=== PATIENT | female | born 1995 | race Caucasian/White ===

== ENCOUNTER 2023-07-08 12:05 | Outpatient (OUT) | payer OTHER, SELFPAY ==
--- NOTE | 2023-07-08 | US_ITS ---
[address] [address] Patient Name: FERNANDA CLIFTON MRN: [id number] date: 1995 Sex: F Assigned Patient Location: US Current Patient Location: US Accession/Order Number: [id number] Exam Date: 07/08/2023 12:20 Report Date: 07/08/2023 13:47 At the request of: MOHINDER BOSWELL Procedure: US OB transvaginal EXAMINATION: US OB transvaginal HISTORY: MISSED MENSES COMPARISON: No relevant comparison available. FINDINGS: Rich intrauterine gestation Gestational sac: 3.54 cm, 8 weeks 5 days CRL: 4.6 mm, 6 weeks 1 day, Yolk sac: 5.6 mm Heart rate: Not observed The cervix is closed measuring 4.6 cm The uterus is normal, anteverted, anteflexed The ovaries are normal. Clinical age: 12 weeks 6 days Clinical HOMER: 01/14/2024 Ultrasound age: 6 weeks 1 day Ultrasound HOMER: 03/01/2024 US/US OB transvaginal IMPRESSION: Suspected early intrauterine gestation. 2 possible yolk sacs. No cardiac activity is observed Follow-up evaluation recommended Electronically authenticated by: LALITO BUSCH Date: 07/08/2023 13:47
== END 2023-07-08 12:06 | disposition home or self-care (01) ==
PROVIDERS: Visit Provider Obstetrics & Gynecology
DX: N92.6 Irregular menstruation, unspecified (principal)
CPT/HCPCS: 76817

== ENCOUNTER 2023-07-14 13:20 | Outpatient (OUT) | payer OTHER, SELFPAY ==
--- NOTE | 2023-07-14 13:22 | US_ITS ---
[address] [address] Patient Name: FERNANDA CLIFTON MRN: [id number] date: 1995 Sex: F Assigned Patient Location: US Current Patient Location: US Accession/Order Number: [id number] Exam Date: 07/14/2023 13:25 Report Date: 07/14/2023 15:40 At the request of: MOHINDER BOSWELL Procedure: US OB transvaginal EXAMINATION: US OB transvaginal HISTORY: VIABILITY COMPARISON: Ultrasound OB transvaginal 07/08/2023 FINDINGS: GESTATIONAL SAC: Present and normal appearing. YOLK SAC: Present and normal appearing. POLE: Present and normal appearing. CARDIAC: Absent UTERUS: Normal size and appearance. OVARIES: Right: Normal. Left: Normal. CERVIX: cm in length and closed. CUL-DE-SAC: Normal. OTHER: None. AGE BY LMP: 13 weeks 5 days HOMER BY LMP: 01/14/2024 AGE BY US CRL: 6 weeks 2 days HOMER BY US CRL: 03/06/2024 US/US OB transvaginal IMPRESSION: 1. Single intrauterine 6 weeks 2 days by today's ultrasound (6 weeks 1 day on 07/08/2023). No detectable heartbeat. demise versus early intrauterine . No findings to suggest impending . 2. Tiny echogenic focus along the outer margin of the gestational sac of uncertain etiology. Follow-up recommended. Electronically authenticated by: CELY PLATA Date: 07/14/2023 15:40
== END 2023-07-14 13:21 | disposition home or self-care (01) ==
LOC: US 13:20
PROVIDERS: Visit Provider Obstetrics & Gynecology
DX: O36.80X1 Pregnancy with inconclusive fetal viability, fetus 1 (principal); Z3A.01 Less than 8 weeks gestation of pregnancy
CPT/HCPCS: 76817

== ENCOUNTER 2023-07-22 08:00 | Outpatient (OUT) | payer OTHER, SELFPAY ==
--- NOTE | 2023-07-22 08:01 | US_ITS ---
[address] [address] Patient Name: FERNANDA CLIFTON MRN: [id number] date: 1995 Sex: F Assigned Patient Location: Current Patient Location: [facility] Accession/Order Number: [id number] Exam Date: 07/22/2023 08:02 Report Date: 07/22/2023 22:29 At the request of: MOHINDER BOSWELL Procedure: US OB transvaginal EXAMINATION: US OB transvaginal HISTORY: VIABILITY COMPARISON: Ultrasound OB transvaginal 07/14/2023 FINDINGS: GESTATIONAL SAC: Present YOLK SAC: Present POLE: Present CARDIAC: Absent UTERUS: Normal size and appearance. OVARIES: Right: Normal. Left: Normal. CERVIX: Not evaluated. CUL-DE-SAC: Normal. OTHER: None. AGE BY LMP: 14 weeks 6 days HOMER BY LMP: 01/14/2024 AGE BY US CRL: 6 weeks 1 day HOMER BY US CRL: 03/15/2024 US/US OB transvaginal IMPRESSION: 1. Single intrauterine with no detectable heartbeat and no growth since study 7 days ago. Findings favor demise. 2. No findings to suggest impending . Electronically authenticated by: CELY PLATA Date: 07/22/2023 22:29
== END 2023-07-22 08:01 | disposition home or self-care (01) ==
LOC: US 08:00
PROVIDERS: Visit Provider Obstetrics & Gynecology
DX: O36.80X0 Pregnancy with inconclusive fetal viability, not applicable or unspecified (principal); Z3A.01 Less than 8 weeks gestation of pregnancy
CPT/HCPCS: 76817

== ENCOUNTER 2023-07-23 07:46 | Day surgery (SDC) | payer OTHER, SELFPAY ==
[2023-07-23] VITALS (10 sets, daily range): BP systolic 93–112; BP diastolic 67–85; PULSE 69–97; RESP 12–29; TEMP 36.2–36.6; O2SAT 96–100; BMI 25.8
--- OUTSIDE RECORDS SUMMARY | 2023-07-23 07:49 | XMS_ITS | CCD ---
Author Name Unknown Address [address] [place] [address] Organization [facility] Care Team Providers Care Lending Manager Name Role Phone Amanda Parks Unavailable Unavailable Family Physician Unavailable Unavailable Nikki vailable Family Physician Unavailable Unavailable Nikki vailable Asad Owens Primary Care Provider ASAD OWENS Primary Care Unavailable SOMASUNDARAM, SHIVKAMINI Referring Unavail able SOMASUNDARAM, SHIVKAMINI Attending Unavail able SOMASUNDARAM, SHIVKAMINI Admitting Unavail able Angela HARVEY Primary Care Physician Asad Owens DO Primary Care Provider [phone] ASAD OWENS Primary Care Unavailable Asad Owens DO Primary Care Provider [phone] Maryann Rashid Primary Care Physician [phone] Unavailable Primary Care Provider Unavailabl e FERNANDA BUTLER Referring Unavailable FERNANDA BUTLER Referring Unavailable JUN SUH Attending Unavail able ASAD OWENS Primary Care Unavailable SHAAN CORONADO Attending Unavailable ASAD OWENS Primary Care Unavailable JUN SUH Attending Unavail able ASAD OWENS Primary Care Unavailable ASAD OWENS Primary Care Unavailable MARLYS MEEKS Attending Unavailable FERNANDA BUTLER Attending Unavailable RG TIDWELL Referring Unavailable FERNANDA BUTLER Attending Unavailable MARIE SO Referring Unavailable Marlys Meeks CNP Unavailable [phone] Shaan Coronado CNP Unavailable Maryann Rashid Attending Unavailable Maryann Rashid Referring Unavailable Phoenix Gonzalez Attending Unavailable Maryann Rashid Admitting Unavailable Maryann Rashid Attending Unavailable Maryann Rashid Referring Unavailable Son Reyes Attending Unavailable Phoenix Castro Attending Unavailable Son Reeys Attending Unavailable Allergies Allergy Classification Reported Allergen(s) Allergy Type Date of Onset Reaction(s) Facility (16 sources) Ibuprofen; Translations: [IBUPROFEN] Drug Allergy 08-19-19 Other (See Comments) [facility] (19 sources) Sulfamethoxazole / Trimethoprim; Translations: [SULFAMETHOXAZOLE-T RIMETHOPRIM] Drug Allergy 08-19-19 21 Hives [facility] (1 source) Ibuprofen; Translations: [Motrin] Drug Allergy [facility] (1 source) Sulfamethoxazole / Trimethoprim; Translations: [Bactrim] Drug Allergy [facility] (1 source) Sulfamethoxazole / Trimethoprim; Translations: [Bactrim DS] Drug Allergy [facility] (1 source) No Known Medication Allergies; Translations: [No Known Medication Allergies] Propensity to adverse reactions (disorder) [facility] Medications Current Medications Medication Drug Class(es) Dates Sig (Normalized) Sig (Original) betamethasone 0.5 mg/ml / clotrimazole 10 mg/ml topical cream (3 sources) Azole Antifungal, Corticosteroid Start: 08-16-2020 End: 09-17-2020 clotrimazole-bet amethasone (Lotrisone) cream Apply to affected area 2 times daily . 15 g 0 08/21/2020 09/17/2020 Active {24 (Ethinyl Estradiol 0.01 MG / norethindrone acetate 1 MG Oral Tablet) / 2 (Ethinyl Estradiol 0.01 MG Oral Tablet) / 2 (Ferrous fumarate 75 MG Oral Tablet) } Pack [Lo Loestrin Fe 28 Day] (8 sources) Estrogen Start: 08-05-2022 take 1 tablet by mouth once daily Lo Loestrin Fe oral tablet TAKE ONE TAB BY MOUTH PER DAY . Start Date: 08/05/22 Status: Ordered Start: 07-02-2022 take 1 tablet by paige once daily norethindrone-e.estradioL-iron (Lo Loest rin Fe) 1 mg-10 mcg (24)/10 mcg (2) Tab Take one tab by mouth per day . 90 tablet 3 07/02/2022 Active hydrOXYzine pamoate 25 mg oral capsule (1 source) Antihistamine Start: 10-09-2020 End: 02-06-2021 take 1 capsule by mouth once daily hydrOXYzine (VISTARIL) 25 MG capsule Take 1 (one) capsule (25 mg total) by mouth nightly . 30 capsule 3 10/09/2020 02/06/2021 Active hyoscyamine sulfate 0.12 mg / methenamine 81.6 mg / methylene blue 10.8 mg / sodium phosphate, monobasic 40.8 mg oral tablet (3 sources) Oxidation-Reduction Agent Start: 11-18-2022 End: 05-31-2023 take 1 tablet by mouth four times daily as needed methen-sod phos-meth blue-hyos (Urogesic-Blue) 81.6-40.8-0.12 mg Tab Indications: Interstitial cystitis Take 1 tablet by mouth 4 (four) times a day as needed . 60 tablet 1 06/01/2023 Active Start: 10-09-2022 take 1 tablet by paige th four times daily as needed methen-sod phos-meth blue-hyos (Urogesic-Blue) 81.6-40.8-0.12 mg Tab Indications: Interstitial cystitis Take 1 tablet by mouth 4 (four) times a day as needed . 4 tablet 0 10/09/2022 Active iv contrast (will be provided with radiology test) (1 source) Start: 08-25-2022 End: 08-26-2022 iv contrast (will be provided with radiology test) MRI Breast KAYA Inject, intravenously, once for 1 dose. No IV access, insert saline lock prior to the beginning of sedation, infusion, injection of imaging exam. Discontinue saline lock post exam. If Pt has a central line or IVAD, may access for administration according to line specific nursing protocol. Once exam is complete flush line and de-access according to line specific nursing protocol in the MR contrast administration guidelines link 1 Each 0 08/25/2022 08/26/2022 Active Comment on above: MRI Breast KAYA Injec t, intravenously, once for 1 dose. No IV access, insert saline lock prior to the beginning of sedation, infusion, injection of imaging exam. Discontinue saline lock post exam. If Pt has a central line or IVAD, may access for administration according to line specific nursing protocol. Once exam is complete flush line and de-access according to line specific nursing protocol in the MR contrast administration guidelines link metroNIDAZOLE 500 mg oral tablet (2 sources) Nitroimidazole Antimicrobial Start: 04-03-2022 End: 04-10-2022 take 1 tablet by mouth twice daily at mealtime metroNIDAZOLE (FLAGYL) 500 MG tablet Indications: BV (bacterial vaginosis) Take 1 (one) tablet (500 mg total) by mouth 2 (two) times a day with meals for 7 days . 14 tablet 0 04/03/2022 04/10/2022 Active Start: 09-26-2020 End: 09-26-2020 metroNIDAZOLE (FLAGYL) IVPB 500 mg naproxen 500 mg oral tablet (5 sources) Nonsteroidal Anti-inflammatory Drug Start: 05-30-2021 take 1 tablet by mouth twice daily as needed for pain Naprosyn 500 mg Tab 500 mg = 1 tab(s), Oral, BID, PRN for pain, # 20 tab(s), Refills(s) 0, Pharmacy: [facility]/pharmacy #[id number], 160, cm, 05/30/21 9:23:00 EDT, Height/Length Dosing, 68, kg, 05/30/21 9:23:00 EDT, Weight Dosing Start Date: 05/30/21 Status: Ordered omeprazole 40 mg delayed release oral capsule (1 source) Proton Pump Inhibitor Start: 10-02-2022 take 1 capsule by mouth once daily omeprazole 40 mg Cap-DR 40 mg = 1 cap(s), Oral, Daily, # 30 cap(s), Refills(s) 0, Pharmacy: [facility]/pharmacy #[id number], 160, cm, 10/02/22 14:06:00 EST, Height/Length Dosing, 63, kg, 10/02/22 14:06:00 EST, Weight Dosing Start Date: 10/02/22 Status: Ordered ropivacaine in 0.9% sod chl/PF (ropivacaine,PF,- 0.9 % sodchlor) 150 mg/30 mL (5 mg/mL) 0.5 % Syrg (1 source) Start: 06-18-2022 End: 06-18-2022 ropivacaine in 0.9% sod chl/PF (ropivacaine,PF,-0 .9 % sodchlor) 150 mg/30 mL (5 mg/mL) 0.5 % Syrg Indications: Interstitial cystitis 50 mg by instillation route once For bladder instillation for 1 dose . 10 mL 0 06/18/2022 06/18/2022 Active ropivacaine in 0.9% sod chl/PF (ROPivacaine,PF,- 0.9 % sodchlor) 150 mg/30 mL (5 mg/mL) 0.5 % Syrg (1 source) Start: 10-09-2022 End: 10-09-2022 ropivacaine in 0.9% sod chl/PF (ROPivacaine,PF,-0 .9 % sodchlor) 150 mg/30 mL (5 mg/mL) 0.5 % Syrg Indications: Interstitial cystitis Inject 10 mL as directed once for 1 dose . 10 mL 0 10/09/2022 10/09/2022 Active Zofran ODT 4 mg Tab-Dis (1 source) Start: 10-02-2022 take 1 tablet by mouth three times daily Zofran ODT 4 mg Tab-Dis 4 mg = 1 tab(s), Oral, TID, # 15 tab(s), Refills(s) 0, Pharmacy: [facility]/pharmacy #[id number], 160, cm, 10/02/22 14:06:00 EST, Height/Length Dosing, 63, kg, 10/02/22 14:06:00 EST, Weight Dosing Start Date: 10/02/22 Status: Ordered Completed/Discontinued Medications Medication Drug Class(es) Dates Sig (Normalized) Sig (Original) 100 ml acetaminophen 10 mg/ml injection (4 sources) Start: 09-26-2020 End: 09-26-2020 take 1000 mg intravenous route every twenty-four hours as needed 1,000 mg, Intravenous, at 400 mL/hr, Once as needed, if patient is not tolerating Oral Intake, Starting Mary 09/26/20 at 2130, For 1 dose [] May give x1 dose 8 hours after initial dose if patient is not tolerating Oral Intake [] May Discontinue IV acetaminophen and initiate oral acetaminophen if patient tolerates Oral Intake [] Maximum dose of 4 grams in 24 hours Indication: Post-operative pain management Is patient able to take oral acetaminophen? No Start: 09-26-2020 End: 09-26-2020 take 1 dose by mouth every eight hours, then take 1 dose by mouth every twenty-four hours 1,000 mg, Intravenous, at 400 mL/hr, Once, Mary 09/26/20 at 1400, For 1 dose [] First dose should be 4 hours after the pre-operative oral acetaminophen (TYLENOL) dose [] Post-op patient who is NPO or on Clear Liquid Diet [] May give additional dose in 8 hours if not tolerating Oral [] Discontinue IV acetaminophen and initiate oral acetaminophen when patient tolerates Oral Intake [] Maximum dose of 4 grams in 24 hours Indication: Post-operative pain management Is patient able to take oral acetaminophen? No Start: 09-26-2020 End: 09-26-2020 take 1 tablet by mouth every six hours 975 mg, Oral, Every 6 hours, First dose on Mary 09/26/20 at 1830 [] May start post op when patient is tolerating Oral Intake [] Do not give within 6 hours of last dose of IV acetaminophen (OFIRMEV). [] Maximum dose of 4 grams in 24 hours. acetaminophen 325 mg / oxyCODONE hydrochloride 5 mg oral tablet (2 sources) Opioid Agonist Start: 09-25-2020 End: 10-13-2020 take 1 tablet by mouth every six hours as needed for pain oxyCODONE-acetaminophen (PERCOCET) 5-325 mg per tablet Indications: Post-operative pain , Pelvic pain in female Take 1 (one) tablet by mouth every 6 (six) hours as needed for post-op pain. . 20 tablet 0 09/25/2020 10/13/2020 Discontinued (Therapy completed) amitriptyline hydrochloride 10 mg oral tablet (3 sources) Tricyclic Antidepressant Start: 10-09-2020 End: 04-02-2022 take 1 tablet by mouth once daily amitriptyline (ELAVIL) 10 MG tablet Take 1 (one) tablet (10 mg total) by mouth nightly . 30 tablet 3 10/09/2020 04/02/2022 Discontinued (Patient Discharge) calcium chloride 0.0014 meq/ml / potassium chloride 0.004 meq/ml / sodium chloride 0.103 meq/ml / sodium lactate 0.028 meq/ml injectable solution (3 sources) Start: 09-26-2020 End: 09-26-2020 take 75 mL intravenous route every hour, then take 600 mL intravenous route 75 mL/hr, Intravenous, Continuous, Starting Mary 09/26/20 at 1445 Saline lock if tolerating greater than 600 mL oral intake Start: 09-26-2020 End: 09-26-2020 lactated ringers bolus 500 m L celecoxib 100 mg oral capsule (1 source) Nonsteroidal Anti-inflammatory Drug Start: 09-26-2020 End: 09-26-2020 celecoxib (CELEBREX) capsule 400 mg Start: 09-26-2020 End: 09-26-2020 celecoxib (CELEBREX) capsule 400 mg docusate sodium 100 mg oral capsule (2 sources) Start: 09-26-2020 End: 10-06-2020 take 100 mg by mouth twice daily 100 mg, Oral, 2 times daily, First dose on Mary 09/26/20 at 2100 Hold for loose stools DO NOT CRUSH OR CHEW. ergocalciferol 1.25 mg oral capsule (1 source) Provitamin D2 Compound Start: 12-04-2020 take 1 capsule by mouth every week Vitamin D 50,000 intl units (1.25 mg) oral capsule 50,000 International_Unit = 1 cap(s), Oral, qWeek, # 4 cap(s), Refills(s) 11, Pharmacy: [facility]/pharmacy #[id number], 160, cm, 11/27/20 10:43:00 EDT, Height/Length Dosing, 69.5, kg, 11/27/20 10:43:00 EDT, Weight Dosing Start Date: 12/04/20 Status: Ordered 20 ml fentaNYL 0.05 mg/ml injection (1 source) Opioid Agonist Start: 09-26-2020 End: 09-26-2020 25 mcg, Intravenous, Every 5 min PRN, Pain, Starting Mray 09/26/20 at 1307, For 4 doses, PACU (only) [] Do not give more than 100 mcg while in PACU. gabapentin (4 sources) Anti-epileptic Agent Start: 09-26-2020 End: 09-26-2020 gabapentin (NEURONTIN) capsule 100 mg Start: 09-26-2020 gabapentin (NE URONTIN) capsule 600 mg Start: 09-25-2020 End: 10-13-2020 take 1 capsule by mouth every eight hours as needed for pain gabapentin (NEURONTIN) 100 MG capsule Indications: Post-operative pain , Pelvic pain in female Take one capsule by mouth every 8 hours as needed for post operative pain. . 30 capsule 0 09/25/2020 10/13/2020 Discontinued (Therapy completed) 1 ml heparin sodium, porcine 41818 unt/ml injection (4 sources) Unfractionated Heparin, Anti-coagulant Start: 10-09-2022 End: 10-09-2022 heparin (porcine) injection 40,000 Units Start: 10-09-2022 End: 10-09-2022 heparin (porcine) injection 40,000 Units Start: 06-18-2022 End: 06-18-2022 heparin (porcine) injection 40,000 Units Start: 06-18-2022 End: 06-18-2022 heparin (porcine) injection 40,000 Units 0.5 ml HYDROmorphone hydrochloride 1 mg/ml prefilled syringe (1 source) Opioid Agonist Start: 09-26-2020 End: 09-26-2020 take 0.25-0.5 mg intravenous route every three hours as needed HYDROmorphone (DILAUDID) injection 0.25-0.5 mg ibuprofen 800 mg oral tablet (2 sources) Nonsteroidal Anti-inflammatory Drug Start: 09-25-2020 End: 09-25-2021 take 1 tablet by mouth every eight hours as needed for pain ibuprofen (ADVIL,MOTRIN) 800 MG tablet Indications: Post-operative pain , Pelvic pain in female Take 1 (one) tablet (800 mg total) by mouth every 8 (eight) hours as needed for pain . 30 tablet 1 09/25/2020 10/13/2020 Discontinued (Therapy completed) naloxone (NARCAN) injection 0.1 mg (1 source) Start: 09-26-2020 End: 09-26-2020 naloxone (NARCAN) injection 0.1 mg ondansetron (ZOFRAN-ODT) disintegrating tablet 4 mg (1 source) Start: 09-26-2020 End: 09-26-2020 take 1 tablet by mouth every six hours as needed ondansetron (ZOFRAN-ODT) disintegrating tablet 4 mg oxyCODONE hydrochloride 5 mg oral tablet (1 source) Opioid Agonist Start: 09-26-2020 End: 09-26-2020 take 5-10 mg by mouth every four hours as needed 5-10 mg, Oral, Every 4 hours PRN, moderate to severe pain, Starting Mary 09/26/20 at 1359 [] Initiate with 5 mg oral every 4 hours prn moderate to severe pain. [] For unrelieved pain, may repeat 5 mg oral dose within 60 minutes of initial dose. [] If pain is RELIEVED after repeat dose, change to 10 mg oral every 4 hours prn moderate to severe pain. [] If pain is UNrelieved after repeat dose, or patient requires dose reduction, call physician. 2 ml prochlorperazine 5 mg/ml injection (1 source) Phenothiazine Start: 09-26-2020 End: 09-26-2020 take 10 mg intravenous route every six hours as needed 10 mg, Intravenous, Every 6 hours PRN, nausea, vomiting, Breakthrough Nausea, Starting Mary 09/26/20 at 1359 30 minutes after ondansetron (ZOFRAN) for breakthrough nausea 200 ml ropivacaine hydrochloride 2 mg/ml injection (1 source) Amide Local Anesthetic Start: 09-26-2020 End: 09-26-2020 ropivacaine (0.2%) (NAROPIN) infusion (PAIN BALL) 750 mL 72 hr scopolamine 0.0139 mg/hr transdermal system (1 source) Anticholinergic Start: 09-26-2020 End: 09-26-2020 scopolamine (TRANSDERM-SCOP) 1 mg over 3 days patch 1 patch 50 ml sodium bicarbonate 84 mg/ml prefilled syringe (4 sources) Start: 10-09-2022 End: 10-09-2022 sodium bicarbonate 8.4 % (1 mEq/mL) injection 3 mEq Start: 10-09-2022 End: 10-09-2022 sodium bicarbonate 8.4 % (1 mEq/mL) injection 3 mEq Start: 06-18-2022 End: 06-18-2022 sodium bicarbonate 8.4 % (1 mEq/mL) injection 3 mEq Start: 06-18-2022 End: 11-17-2022 sodium bicarbonate 8.4 % (1 mEq/mL) injection 3 mEq triamcinolone acetonide 10 mg/ml injectable suspension (4 sources) Corticosteroid Start: 10-09-2022 End: 10-09-2022 triamcinolone acetonide (KENALOG) injection 25 mg Start: 10-09-2022 End: 10-09-2022 triamcinolone acetonide (DEYANIRA ALOG) injection 25 mg Start: 06-18-2022 End: 06-18-2022 triamcinolone acetonide (DEYANIRA ALOG) injection 25 mg Start: 06-18-2022 End: 06-18-2022 triamcinolone acetonide (DEYANIRA ALOG) injection 25 mg Vitamin D 50,000 intl units (1.25 mg) oral capsule (4 sources) Start: 12-04-2020 take 1 capsule by mouth every week Vitamin D 50,000 intl units (1.25 mg) oral capsule 50,000 International_Unit = 1 cap(s), Oral, qWeek, # 4 cap(s), Refills(s) 11, Pharmacy: [facility]/pharmacy #[id number], 160, cm, 11/27/20 10:43:00 EDT, Height/Length Dosing, 69.5, kg, 11/27/20 10:43:00 EDT, Weight Dosing Start Date: 12/04/20 Status: Ordered Problems Active Problems Problem Classification Problem Date Documented Da te Episodic/Chronic Complications of surgical procedures or medical care (3 sources) Postoperative wound infection-superficial 11-19-2020 Episodic Contraceptive and procreative management (2 sources) Patient encounter status; Translations: [Encounter for other general counseling and advice on contraception] Episodic Endometriosis (1 source) Endometriosis (clinical); Translations: [Endometriosis] Chronic Inflammatory diseases of female pelvic organs (1 source) Bacterial vaginosis; Translations: [Acute vaginitis] Episodic Malaise and fatigue (5 sources) Fatigue 11-27-2020 Episodic Menstrual disorders (20 sources) Irregular periods; Translations: [Menorrhagia] Onset: 08-19-2020 08-19-2020 Chronic Nausea and vomiting (1 source) Nausea and vomiting; Translations: [Nausea with vomiting, unspecified] Onset: 10-02-2022 Episodic Nonspecific chest pain (5 sources) Tight chest 11-27-2020 Episodic Nutritional deficiencies (7 sources) Vitamin D deficiency; Translations: [Vitamin D deficiency, unspecified] Onset: 10-08-2022 12-11-2020 Chronic Other female genital disorders (7 sources) Vaginal discharge; Translations: [Other specified noninflammatory disorders of vagina] 03-06-2019 Episodic Other gastrointestinal disorders (20 sources) Irritable bowel syndrome; Translations: [Irritable bowel syndrome without diarrhea] Onset: 08-19-2020 08-19-2020 Chronic Other lower respiratory disease (5 sources) Dyspnea 11-27-2020 Episodic Other nutritional; endocrine; and metabolic disorders (1 source) Body mass index 25-29 - overweight; Translations: [Body mass index (BMI) of 25.0 to 29.9] Onset: 10-13-2020 10-13-2020 Chronic Other nutritional; endocrine; and metabolic disorders (7 sources) Gilbert's syndrome; 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] Onset: 10-08-2022 02-25-2015 Chronic Other nutritional; endocrine; and metabolic disorders (16 sources) Body mass index 25-29 - overweight 11-27-2020 Episodic Other nutritional; endocrine; and metabolic disorders (6 sources) Overweight in adulthood with body mass index of 25 or more but less than 30; Translations: [Body mass index (BMI) 25.0-25.9, adult] Onset: 08-05-2022 Episodic Other nutritional; endocrine; and metabolic disorders (1 source) Overweight; Translations: [Overweight] Onset: 08-05-2022 Episodic Other skin disorders (5 sources) Disorder of nail 03-06-2019 Episodic Other upper respiratory disease (20 sources) Allergic rhinitis; Translations: [Allergic rhinitis, unspecified] Onset: 08-19-2020 08-19-2020 Chronic Ovarian cyst (10 sources) Ruptured cyst of ovary; Translations: [Ovarian cyst rupture] Onset: 08-14-2020 08-19-2020 Episodic Residual codes; unclassified (4 sources) Family history of breast cancer; Translations: [Family history of malignant neoplasm of breast] Episodic Residual codes; unclassified (3 sources) At high risk for breast cancer; Translations: [Other specified personal risk factors, not elsewhere classified] Episodic Residual codes; unclassified (2 sources) Family history of malignant neoplasm of breast; Translations: [Family history of breast cancer] Onset: 10-07-2022 Episodic Residual codes; unclassified (2 sources) Other specified personal risk factors, not elsewhere classified; Translations: [At high risk for breast cancer] Onset: 08-25-2022 Episodic Residual codes; unclassified (1 source) Postoperative state; Translations: [Post-operative state] Thyroid disorders (7 sources) Goiter; Translations: [Nontoxic goiter, unspecified] Onset: 10-08-2022 11-27-2020 Chronic Unclassified (1 source) Unknown / UNK(Unknown) Onset: 06-16-2018 Unclassified (3 sources) Breast finding 09-18-2020 Unclassified (8 sources) Body mass index 25-29 - overweight; Translations: [Body mass index (BMI) of 25.0 to 29.9] Onset: 10-13-2020 10-13-2020 Unclassified (4 sources) Pain of right breast 08-05-2022 Urinary tract infections (17 sources) Chronic interstitial cystitis; Translations: [Interstitial cystitis (chronic) without hematuria] Onset: 08-19-2020 10-13-2020 Chronic Viral infection (5 sources) Viral disease 03-06-2019 Episodic Past or Other Problems Problem Classification Problem Date Documented Da te Episodic/Chronic Abdominal pain (20 sources) Chronic pelvic pain of female; Translations: [Pain in female pelvis] Onset: 08-14-2020 08-19-2020 Episodic Epilepsy; convulsions (20 sources) Febrile convulsion; Translations: [Simple febrile convulsions] Onset: 08-19-2020 08-19-2020 Episodic Genitourinary symptoms and ill-defined conditions (18 sources) Dysuria; Translations: [Dark yellow urine] Onset: 08-19-2020 08-19-2020 Episodic Lymphadenitis (7 sources) Generalized enlarged lymph nodes; Translations: [Generalized enlarged lymph nodes] Onset: 08-05-2022 Episodic Nonmalignant breast conditions (20 sources) Breast lump; Translations: [Discharge from the breast] Onset: 10-13-2020 10-13-2020 Episodic Other connective tissue disease (12 sources) Myofascial pain; Translations: [Myalgia, other site] Onset: 04-02-2022 Episodic Other female genital disorders (15 sources) Pelvic congestion syndrome; Translations: [Other specified conditions associated with female genital organs and menstrual cycle] Onset: 10-13-2020 10-13-2020 Episodic Other gastrointestinal disorders (20 sources) Diarrhea; Translations: [Diarrhea, unspecified] Onset: 08-19-2020 08-19-2020 Episodic Other screening for suspected conditions (not mental disorders or infectious disease) (20 sources) Mammography abnormal; Translations: [Cancer cervix screening status] Onset: 10-13-2020 10-13-2020 Episodic Otitis media and related conditions (20 sources) Serous otitis media; Translations: [Unspecified nonsuppurative otitis media, unspecified ear] Onset: 08-19-2020 08-19-2020 Episodic Syncope (20 sources) Syncope; Translations: [Syncope and collapse] Onset: 08-19-2020 08-19-2020 Episodic Unclassified (1 source) PELVIC PAIN IN FEMALE R10.2 93124 Onset: 06-16-2018 Unclassified (1 source) Exposure to 2019 novel coronavirus; Translations: [Contact with and (suspected) exposure to COVID19] Unclassified (5 sources) Onset: 09-02-2015 Resolved: 06-10-2016 06-12-2016 Results Test Name Value Interpretation Reference Range Facility ED Note-Physicianon 07-16-20 ED Note-Physician Basic Information Time Seen: Son Reyes MD 07/15/2023 08:38 Sorry for the Chief Complaint pt is approx 7 wks preg, reports increase in vomiting, lower abd pain and lower back pain since last night. has had an ultrasound with faronny. History of Present Illness 27-year-old female comes to the ED for evaluation of abdominal pain. The patient reports she is currently 7 weeks . She states she has pain across the lower abdomen with associated nausea and vomiting. She has had some nausea throughout her but intensified today. She does state that she had an ultrasound performed in the office last week but they were not able to see anything. No fever, chills or chest pain. No diarrhea, constipation. No urinary difficulty, vaginal discharge or bleeding. Review of Systems A 10 point review of systems is negative except as noted above. Medical and Surgical History: Reviewed and noted Social history: Lives at home Tobacco: Denies Physical Exam Vitals & Measurements T: 37.5 ?C(Oral) HR: 89(Peripheral) RR: 16 BP: 122/77 SpO2: 99% HT: 160 cm WT: 64 kg BMI: 25 Nurses notes and vital signs reviewed and patient is not hypoxic. General: The patient appears well and in no significant distress Patient is resting comfortably on the exam bed. Skin: Warm, dry, no pallor noted. Head: Atraumatic. Neck: No JVD. Eye: Normal conjunctiva. Ears, Nose, Mouth, and Throat: Moist mucous membranes Cardiovascular: Strong distal pulses. Chest wall: Respiratory: Respirations are nonlabored. Back: Normal range of motion, no CVA tenderness. Musculoskeletal: Normal ROM with no gross deformity. Gastrointestinal: Abdomen is soft throughout. There is mild tenderness across the lower/pelvic area. Urological: Neurological: Awake and alert. No focal deficits. Follows commands. GCS 15. Psychiatric: Cooperative. Medical Decision Making Laboratory studies reviewed and noted. Patient was treated here with IV fluids. Her nausea is improved on repeat evaluation she taking oral hydration well. However, she continues to have low pelvic pain with positive . Therefore ultrasound was added. Quantitative hCG returned at 80,000. Her ultrasound was discussed at length with the trim technician and reviewed by radiologist. There is intrauterine gestational sac with a possible pole, however this is only measuring 6 weeks, 3 days. No cardiac cavity was identified. This is discussed with the patient. Her significant other is now at bedside as well. He reports that patient had a similar ultrasound finding last week in the PICU NURSE's office as well as an ultrasound yesterday in the office. He is scheduled for another ultrasound next week. Given his additional history, it sounds like the patient is likely experiencing demise, but did explain that I cannot definitively diagnose that today. She is sent for repeat quantitative hCG in 72 hours and to follow-up with PICU NURSE for definitive diagnosis. Patient was encouraged to return to the ED if symptoms worsen or change. Assessment/Plan Abdominal pain in (O26.899: Other specified related conditions, unspecified trimester) Unspecified abdominal pain (R10.9: Unspecified abdominal pain) Orders: Sodium Chloride 0.9% intravenous solution, 1,000 mL, Soln-IV, IV, Once, Stop date 07/15/23 8:42:00 EST, STAT, Start date 07/15/23 8:42:00 EST, Infuse over 61, minute(s) Automated Diff Basic Metabolic Panel Beta hCG Quantitative CBC w/ Auto Diff eGFR Extra Blue Tube Extra SST Tube Hepatic Function Panel Lipase Level U Beta Hcg Qual US 1st Trimester US Transvaginal Medications Administered Given NS 1000 ml Bolus, 1000 mL, IV Disposition Plan Patient Discharge Condition Disposition: Discharged home Condition: Improved and stable Counseled: Patient and/or family were counseled to workup, results, treatment plan and follow-up recommendations Discharge Prescription List Prescriptions No active prescription medications Follow-up With When Contact Information Ahsan BOSWELL In 3 days 07/18/[address] [place] [address]- Business (1) Additional Instructions: Patient Education Abdominal Pain During Attestation Patient seen and evaluated by the physician credit assistant. Attending physician was present in the emergency department and supervised care. This visit was performed by both the physician and an APC. I performed all aspects of the MDM as documented. This report was transcribed using voice recognition software. Every effort was made to ensure accuracy, however, inadvertently computerized rn palliative mistakes may be present. Appropriate healthcare PPE was used in evaluating this patient. The patient was placed in a mask. The healthcare provider was wearing mask, gloves, and utilizing proper hand hygiene. All equipment was properly cleansed. Problem List/Past Medi (more content not included)... Normal [facility] Comment on above: Result Comment: Elec tronically Signed By: Chapincito José PA-C\.br\Date and Time Signed: 07/15/23 16:04 EST\.br\Electronically Co-Signed By: Son Reyes MD\.br\Date and Time Co-Signed: 07/16/23 08:09 EST Auto Diffon 07-15-2023 Basophils/100 WBC (Bld) 0.2 % Normal 0.0-2.0 [facility] Comment on above: Order Comment: Order Added by Discern Expert. Performed By: #### 2 285485, 0648139, 1508119, 3523748, 1776856, 33167182, 2778447 ####[facility] [address] [place] [address] Basophils/Leukocyte s Auto (Bld) [Pure # fraction] 0.0 E9/L Normal 0.0-0.2 [facility] Comment on above: Order Comment: Order Added by Discern Expert. Performed By: #### 2 285688, 4305989, 1839704, 6839497, 3035005, 27936691, 3937475 ####[facility] [address] [place] [address] Eosinophils/100 WBC (Bld) 0.3 % Normal 0.0-8.0 [facility] Comment on above: Order Comment: Order Added by Discern Expert. Performed By: #### 2 821169, 3417356, 9329426, 0781359, 6016529, 64232058, 0382447 ####[address] [place] [address] Eosinophils/Leukocy kashmir Auto (Bld) [Pure # fraction] 0.0 E9/L Normal 0.0-0.5 [facility] Comment on above: Order Comment: Order Added by Discern Expert. Performed By: #### 2 090424, 7351798, 5652011, 5860543, 2767426, 59844356, 1648514 ####[address] [place] [address] Lymphocytes/100 WBC (Bld) 4.1 % Low 14.0-50.0 [facility] Comment on above: Order Comment: Order Added by Discern Expert. Performed By: #### 2 903671, 7587488, 8189507, 6424849, 3475712, 18982184, 0813342 ####[address] [place] [address] Lymphocytes/Leukocy kashmir Auto (Bld) [Pure # fraction] 0.3 E9/L Low 1.0-4.0 [facility] Comment on above: Order Comment: Order Added by Discern Expert. Performed By: #### 2 815953, 0819844, 8170544, 7300103, 7310591, 21383452, 2403261 ####[address] [place] [address] Monocytes/100 WBC (Bld) 5.3 % Normal 4.0-14.0 [facility] Comment on above: Order Comment: Order Added by Discern Expert. Performed By: #### 2 603112, 9109093, 2619255, 4093653, 7526766, 67309465, 4960026 ####[facility] [address] [place] [address] Monocytes/Leukocyte s Auto (Bld) [Pure # fraction] 0.3 E9/L Normal 0.2-1.0 [facility] Comment on above: Order Comment: Order Added by Discern Expert. Performed By: #### 2 039848, 4875567, 1639413, 8435866, 3854630, 55103288, 3598402 ####[facility] [address] [place] [address] Neutrophils/100 WBC (Bld) 90.1 % High 36.0-75.0 [facility] Comment on above: Order Comment: Order Added by Discern Expert. Performed By: #### 2 037104, 2252369, 6994293, 1519066, 7138221, 35359188, 1359455 ####[facility] [address] [place] [address] Neutrophils/Leukocy kashmir Auto (Bld) [Pure # fraction] 5.6 E9/L Normal 2.0-7.5 [facility] Comment on above: Order Comment: Order Added by Discern Expert. Performed By: #### 2 060299, 7837218, 8200245, 0327236, 8666075, 71265731, 5428796 ####[facility] [address] [place] [address] BMPon 07-15-2023 Anion gap [Moles/Vol] 12 mmol/L Normal 6-16 [facility] Comment on above: Performed By: #### 2 984944, 1165359, 2309350, 2900670, 9882599, 61714084, 8589314 ####[facility] [address] [place] [address] BUN/Creat Ratio 14 No Units Normal 10-20 [facility] Comment on above: Performed By: #### 2 428624, 1168695, 1356432, 0221390, 5202935, 45418481, 5899242 ####[facility] [address] [place] [address] Calcium [Mass/Vol] 9.3 mg/dL Normal 8.9-11.1 [facility] Comment on above: Performed By: #### 2 947356, 2060551, 9636169, 1233372, 4028561, 55631859, 2363971 ####[facility] [address] [place] [address] Chloride [Moles/Vol] 102 mmol/L Normal 101-111 [facility] Comment on above: Performed By: #### 2 302438, 3461968, 7656865, 7098216, 5477052, 77437505, 8113872 ####[facility] [address] [place] [address] CO2 [Moles/Vol] 26 mmol/L Normal 21-31 [facility] Comment on above: Performed By: #### 2 449020, 9436072, 7159908, 5658526, 9767122, 77466857, 6186879 ####[facility] [address] [place] [address] Creatinine [Mass/Vol] 0.5 mg/dL Normal 0.5-1.3 [facility] Comment on above: Performed By: #### 2 923114, 5670306, 4145398, 9149578, 7369181, 98908751, 2724811 ####[facility] [address] [place] [address] Glucose [Mass/Vol] 90 mg/dL Normal 55-199 [facility] Comment on above: Performed By: #### 2 067308, 6051814, 6502132, 1175869, 7033662, 31488946, 3534705 ####[facility] [address] [place] [address] Potassium [Moles/Vol] 3.7 mmol/L Normal 3.5-5.3 [facility] Comment on above: Performed By: #### 2 536412, 1578822, 7626963, 6428904, 5725423, 44501353, 0695574 ####[facility] [address] [place] [address] Sodium [Moles/Vol] 136 mmol/L Normal 135-145 [facility] Comment on above: Performed By: #### 2 562942, 9738735, 9565636, 8842902, 2735923, 37606223, 8566790 ####[facility] [address] [place] [address] Urea nitrogen [Mass/Vol] 7 mg/dL Normal 5-21 [facility] Comment on above: Performed By: #### 2 072278, 4685669, 3631327, 3251635, 8945215, 34038799, 1864936 ####[facility] [address] [place] [address] BhCG Quanton 07-15-2023 [place] [address] mIU/mL High 1-3 [facility] Comment on above: Result Comment: 'F N ON < 1 - 3' ' 0.2 - 1 WEEK = 5 TO 50' ' 1 - 2 WEEKS = 50 - 500' ' 2 - 3 WEEKS = 100 - 5000' ' 3 - 4 WEEKS = 500 - 20809' ' 4 - 5 WEEKS = 1000 - 36845' ' 5 - 6 WEEKS = 85035 - 921196' ' 6 - 8 WEEKS = 42263 - 592983' ' 8 - 12 WEEKS = 70179 - 104385' Performed By: #### 2 140002, 6753977, 5161964, 4173030, 1663680, 71234748, 9010399 ####[facility] [address] [place] [address] CBC w/ Auto Diffon Erythrocyte distribution width (RBC) [Ratio] 13.3 % Normal 10.9-14.2 [facility] Comment on above: Performed By: #### 2 940957, 2983697, 7856614, 9725019, 2003693, 43097553, 8355715 ####[facility] [address] [place] [address] Hematocrit (Bld) [Volume fraction] 38.1 % Normal 34.0-46.0 [facility] Comment on above: Performed By: #### 2 769798, 3193830, 1045091, 2187673, 4430389, 38036445, 5409361 ####[address] [address] Hemoglobin (Bld) [Mass/Vol] 12.9 g/dL Normal 12.0-16.0 [facility] Comment on above: Performed By: #### 2 866792, 4856140, 4459312, 5014226, 1082602, 76410346, 7972278 ####[address] [address] MCH (RBC) [Entitic mass] 29.5 pg Normal 27.0-34.0 [facility] Comment on above: Performed By: #### 2 861878, 1593188, 6457046, 6782378, 1387428, 59708849, 2182274 ####[address] [address] MCHC (RBC) [Mass/Vol] 33.8 g/dL Normal 31.4-36.0 [facility] Comment on above: Performed By: #### 2 985319, 8526133, 1627154, 4318373, 8660100, 57848587, 6745332 ####[address] [address] MCV (RBC) [Entitic vol] 87.3 fL Normal 80.0-100.0 [facility] Comment on above: Performed By: #### 2 188764, 2258947, 5578413, 6549608, 5591956, 64675651, 0895838 ####[address] [address] Platelet mean volume (Bld) [Entitic vol] 8.5 fL Normal 6.4-10.8 [facility] Comment on above: Performed By: #### 2 841865, 5144672, 5779520, 3449138, 4067179, 57998847, 2665021 ####[facility] [address] [place] [address] Platelets (Bld) [#/Vol] 153.0 E9/L Normal 150.0-500. 0 [facility] Comment on above: Performed By: #### 2 588125, 9746127, 4703986, 4627118, 9526788, 01231879, 0110633 ####[facility] [address] [place] [address] RBC (Bld) [#/Vol] 4.4 E12/L Normal 4.3-5.9 [facility] Comment on above: Performed By: #### 2 771717, 9501247, 8234850, 8389950, 1938369, 10008606, 9722553 ####[facility] [address] [place] [address] WBC corrected for nucl RBC Auto (Bld) [#/Vol] 6.2 E9/L Normal 4.0-11.0 [facility] Comment on above: Performed By: #### 2 401025, 4259828, 0298933, 4097746, 4635641, 82918585, 3308218 ####[address] [place] [address] Consent for Treatmenton 07-02 Consent for Treatment [id number] Normal [facility] Discharge Instructionson Discharge Instructions [id number] Normal [facility] ED Clinical Summaryon 2022 ED Clinical Summary (Inserted Image. Nikki ble to display) [address] [address] ED Clinical Summary Person Information Name: FERNANDA CHA [facility] Age: 27 Years : 1995 Sex: Female Language: Cook Islander PCP: Asad OWENS DO, FAAFP Marital Status: Single Visit Id: Visit Reason: Vomiting - ; Back pain; Abdominal pain; 7-8 WEEKS , ABD & BACK PAIN Speciality: Acuity: 3 Enc Type: Emergency Med Service: Emergency Arrival: 07/15/2023 08:25:24 Discharge: 07/15/2023 14:10:45 LOS: 000 05:45 Checkin: 07/15/2023 08:25:24 Checkout: 07/15/2023 14:10:45 Dispo Type: Home (Routine DC) EVENTS: Event Name Event Status Request Date/Time Start Date/Time Complete Date/Time Arrive Complete 07/15/2023 08:25:24 07/15/2023 08:25:24 07/15/2023 08:25:24 Document Home Meds Request 07/15/2023 08:25:24 Triage Complete 07/15/2023 08:25:24 07/15/2023 08:35:01 07/15/2023 08:35:01 Registration Complete 07/15/2023 08:29:10 07/15/2023 08:29:10 07/15/2023 08:29:10 Reg Complete Request 07/15/2023 08:29:10 Reg Bed Request Complete 07/15/2023 08:29:10 07/15/2023 08:29:10 07/15/2023 08:29:10 Bed Assign Complete 07/15/2023 08:29:53 07/15/2023 08:29:53 07/15/2023 08:29:53 Dr Exam Complete 07/15/2023 08:29:53 07/15/2023 08:38:50 07/15/2023 08:38:50 RN Exam Complete 07/15/2023 08:29:53 07/15/2023 08:54:20 07/15/2023 08:54:20 Pending Labs Complete 07/15/2023 08:36:08 07/15/2023 09:17:36 Lab Complete 07/15/2023 08:36:08 07/15/2023 09:17:36 Urine Collect Complete 07/15/2023 08:36:08 07/15/2023 09:17:36 Registration Request 07/15/2023 08:38:50 Dr Exam Complete 07/15/2023 08:41:43 07/15/2023 08:41:43 07/15/2023 08:41:43 Meds Admin Complete 07/15/2023 08:42:42 07/15/2023 09:06:23 Pending Labs Complete 07/15/2023 08:42:42 07/15/2023 09:33:13 Lab Complete 07/15/2023 08:42:42 07/15/2023 09:33:13 Pending Labs Complete 07/15/2023 09:03:48 07/15/2023 09:03:48 07/15/2023 09:33:13 Lab Complete 07/15/2023 09:03:48 07/15/2023 09:03:48 07/15/2023 09:33:13 Pending Labs Complete 07/15/2023 09:10:05 07/15/2023 09:10:05 07/15/2023 09:10:06 Pending Labs Complete 07/15/2023 09:12:44 07/15/2023 09:12:44 07/15/2023 09:12:52 Lab Complete 07/15/2023 09:12:44 07/15/2023 09:12:44 07/15/2023 09:12:52 US Complete 07/15/2023 10:21:14 07/15/2023 11:21:44 07/15/2023 11:52:40 Pending Labs Complete 07/15/2023 10:48:24 07/15/2023 11:13:45 Lab Complete 07/15/2023 10:48:24 07/15/2023 11:13:45 Urine Collect Complete 07/15/2023 10:48:24 07/15/2023 11:13:45 Pending Labs Cancel 07/15/2023 11:17:23 07/15/2023 11:20:07 Lab Cancel 07/15/2023 11:17:23 07/15/2023 11:20:07 Pending Labs Complete 07/15/2023 11:20:34 07/15/2023 11:20:34 07/15/2023 13:07:10 Lab Complete 07/15/2023 11:20:34 07/15/2023 11:20:34 07/15/2023 13:07:10 US Complete 07/15/2023 11:37:05 07/15/2023 11:53:05 Discharge Complete 07/15/2023 14:05:12 07/15/2023 14:26:59 07/15/2023 14:26:59 Transfer Complete 07/15/2023 14:26:59 07/15/2023 14:26:59 07/15/2023 14:26:59 ADDRESS: [address] [place] [id number] PHYS DOC NOTES: MEDICAL INFORMATION: Prescriptions Given: Medications to Continue with No Changes Other Medications ergocalciferol (Vitamin D 50,000 intl units (1.25 mg) oral capsule) 1 Capsules By Mouth every week. Refills: 11. ethinyl estradiol-norethindrone (Lo Loestrin Fe oral tablet) TAKE ONE TAB BY MOUTH PER DAY .. naproxen (Naprosyn 500 mg Tab) 1 Tablets By Mouth 2 times a day as needed for pain. Refills: 0. omeprazole (omeprazole 40 mg Cap-DR) 1 Capsules By Mouth every day. Refills: 0. ondansetron (Zofran ODT 4 mg Tab-Dis) 1 Tablets By Mouth 3 times a day. Refills: 0. PATIENT EDUCATION INFORMATION: Instructions: Abdominal Pain During Follow up: With: Address: When: Ahsan [address] [place] [address] Business (1) In 3 days 07/18/2023 DIAGNOSIS: Abdominal pain in ; Unspecified abdominal pain Normal [facility] ED Patient Education Noteon 07-15-2023 ED Patient Education Note Obstetrics and Gynecology Abdominal Pain During Abdominal pain is common during and has many possible causes. Some causes are more serious than others, and sometimes the cause is not known. Abdominal pain can be a sign that labor is starting. It can also be caused by normal growth of your baby causing stretching of muscles and ligaments during . Always tell your health care provider if you have any abdominal pain. Follow these instructions at home: ? Do not have sex or put anything in your vagina until your pain goes away completely. ? Get plenty of rest until your pain improves. ? Drink enough fluid to keep your urine pale yellow. ? Take scyh-qyp-romiqrr and prescription medicines only as told by your health care provider. ? Keep all follow-up visits. This is important. Contact a health care provider if: ? Your pain continues or gets worse after resting. ? You have lower abdominal pain that: ? Comes and goes at regular intervals. ? Spreads to your back. ? Is similar to menstrual cramps. ? You have pain or burning when you urinate. Get help right away if: ? You have a fever, chills, or shortness of breath. ? You have vaginal bleeding. ? You are leaking fluid or passing tissue from your vagina. ? You have vomiting or diarrhea that lasts for more than 24 hours. ? Your baby is moving less than usual. ? You feel very weak or faint. ? You develop severe pain in your upper abdomen. Summary ? Abdominal pain is common during and has many possible causes. ? If you experience abdominal pain during , tell your health care provider right away. ? Follow your health care provider's home care instructions and keep all follow-up visits as told. This information is not intended to replace advice given to you by your health care provider. Make sure you discuss any questions you have with your health care provider. Document Revised: 04/01/2021 Document Reviewed: 04/01/2021 [employer] Patient Education ? 2022 [employer]. Normal [facility] ED Patient Summaryon 023 ED Patient Summary (Inserted Image. Nikki ble to display) [address] [address] Patient Discharge Instructions Person Information Name: FERNANDA CHA Age: 27 Years Arrival Date: 07/15/2023 08:25:24 Discharge Diagnosis: Abdominal pain in ; Unspecified abdominal pain Primary Care Physician: Asad OWENS DO, FAAFP Provider Information Primary Provider: Son Reyes MD Advanced Bar Assistant:Chapincito José PA-C The exam and treatment you received in the Emergency Department were for an urgent problem and are not intended as complete care. It is important that you follow up with a doctor, nurse practitioner, or physician?s credit assistant for ongoing care. If your symptoms become worse or you do not improve as expected and you are unable to reach your usual health care provider, you should return to the Emergency Department. We are available 24 hours a day. FERNANDA CHA has been given the following list of patient education materials, prescriptions and follow-up instructions: Follow-up Instructions: With: Address: When: Ahsan BOSWELL [facility], [address] [place] [address] [place] [address] Business (1) In 3 days 07/18/2023 In the event that this physician does not participate in your insurance network, please consult with your insurance company to find a nearby participating provider. Patient Education Materials: Abdominal Pain During A MESSAGE TO ALL PATIENTS REGARDING OPIOIDS PRESCRIPTION OPIOIDS: WHAT YOU NEED TO KNOW Prescription opioids can be used to help relieve bvhmpqsl-su-ovigee pain and are often prescribed following a surgery or injury, or for certain health conditions. These medications can be an important part of the treatment but also come with serious risks. It is important to work with your healthcare provider to make sure you are getting the safest, most effective care. WHAT ARE THE RISKS AND SIDE EFFECTS OF OPIOID USE? Prescription opioids carry serious risks of addiction and overdose, especially with prolonged use. An opioid overdose, often marked by slowed breathing, can cause sudden . The use of prescription opioids can have a number of side effects as well, even when taken as directed: ? Tolerance?meaning you might need to take more of the medication for the same pain relief ? Physical dependence?meaning you have symptoms of withdrawal when a medication is stopped ? Increased sensitivity to pain ? Constipation ? Nausea, vomiting, and dry mouth ? Sleepiness and dizziness ? Confusion ? Depression ? Low levels of testosterone that can result in lower sex drive, energy, and strength ? Itching and sweating RISKS ARE GREATER WITH: ? History of drug misuse, substance use disorder, or overdose ? Mental health conditions (such as depression or anxiety) ? Sleep apnea ? Older age (65 years and older) ? Avoid alcohol while taking prescription opioids. Also, unless specifically advised by your health care provider, medications to avoid include: ? Benzodiazepines (such as Xanax or Valium) ? Muscle relaxants (such as Soma or Flexeril) ? Hypnotics (such as Ambien or Lunesta) ? Other prescription opioids KNOW YOUR OPTIONS Talk to your health care provider about ways to manage your pain that don?t involve prescription opioids. Some of these options may actually work better and have fewer risks and side effects. Options may include: ? Pain relievers such as acetaminophen, ibuprofen, and naproxen ? Some medication that are also used for depression or seizures ? Physical therapy and exercise ? Cognitive behavioral therapy, a psychological, goal-directed approach, in which patients learn how to modify physical, behavioral, and emotional triggers of pain and stress. IF YOU ARE PRESCRIBED OPIOIDS FOR PAIN: ? Never take opioids in greater amounts or more often than prescribed. ? Follow up with your primary health care provider. o Work together to create a plan on how to manage your pain. o Talk about ways to help manage your pain that don?t involve prescription opioids. o Talk about any and all concerns and side effects. ? Help prevent misuse and abuse o Never sell or share prescription opioids. o Never use another person?s prescription opioids. ? Store prescription opioids in a secure place and out of reach of others (this may include visitors, children, friends, and family). ? Safely dispose of unused prescription opioids: Find your community drug take-back program or your pharmacy mail-back program, or flush them down the toilet, following guidance from the Food and Drug Administration (www.fda.gov/Drugs/ResourcesFo rYou). ? Visit www.cdc.gov/drugoverdose to learn about the risks of opioids abuse and overdose. ? If you believe you may be struggling with addiction, tell your health resident care assistant and ask for tim (more content not included)... Normal [facility] Hep Func Panelon 07-15-2023 Albumin [Mass/Vol] 4.2 g/dL Normal 3.3-5.0 [facility] Comment on above: Performed By: #### 2 155035, 2068605, 4379864, 6381656, 1950449, 59372731, 7410559 ####[facility] [address] [place] [address] Albumin/Globulin [Mass ratio] 1.5 {ratio} Normal 1.1-2.2 [facility] Comment on above: Performed By: #### 2 789235, 5588993, 2674395, 9579614, 3479587, 38461863, 4762652 ####[address] [address] Alk Phos 56 Int._Unit/L Normal 21-98 [facility] Comment on above: Performed By: #### 2 662619, 2187627, 1436884, 2653716, 2497758, 83281483, 9711660 ####[address] [address] ALT 11 Int._Unit/L Normal 6-46 [facility] Comment on above: Performed By: #### 2 613315, 3519973, 8086580, 5789522, 6922251, 85646135, 0929029 ####[address] [address] AST 15 Int._Unit/L Normal 5-43 [facility] Comment on above: Performed By: #### 2 114652, 3188955, 5245235, 5292535, 3188011, 77149943, 9741059 ####[address] [address] Bili Direct 0.2 mg/dL Normal 0.1-0.4 [facility] Comment on above: Performed By: #### 2 414804, 0826388, 1470298, 6626182, 2406647, 30606204, 3529606 ####[address] [place] [address] Bili Indirect 1.1 mg/dL High 0.1-0.9 [facility] Comment on above: Performed By: #### 2 108259, 9343096, 1926461, 4063660, 6993876, 83886807, 9819846 ####[facility] [address] [place] [address] Bili Total 1.3 mg/dL High 0.0-1.1 [facility] Comment on above: Performed By: #### 2 067061, 4095689, 9275559, 3252751, 9040419, 63420214, 5338946 ####[facility] [address] [place] [address] Globulin (S) [Mass/Vol] 2.8 g/dL Normal 1.4-4.0 [facility] Comment on above: Performed By: #### 2 636258, 7300122, 7632232, 8274152, 2276200, 77762120, 6442706 ####[facility] [address] [place] [address] Protein [Mass/Vol] 7.0 g/dL Normal 6.0-7.8 [facility] Comment on above: Performed By: #### 2 238964, 5984412, 5903815, 8401869, 8170778, 47417077, 7586532 ####[facility] [address] [place] [address] Lipase Levelon 07-15-2023 Lipase Lvl 13 unit/L Normal 13-58 [facility] Comment on above: Performed By: #### 2 303244, 9348067, 9320742, 5057611, 1202309, 63387929, 0166920 ####[facility] [address] [place] [address] Physician Orderon 07-15-2023 Physician Order [id number] Normal [facility] U BetaHcg Qualon 07-15-2023 HCG.beta subunit (U) [Moles/Vol] Positive Normal [facility] Comment on above: Performed By: #### 2 0548788 #### [facility] [address] [place] [address] UA With Cult Reflexon 2022 Bacteria LM Ql (Urine sed) TRACE Normal Trace [facility] Comment on above: Performed By: #### 1 8043701 ####[facility] [address] [place] [address] Bilirubin Ql (U) Negative Normal Negative [facility] Comment on above: Performed By: #### 1 5344743 ####[facility] [address] [place] [address] Clarity (U) CLEAR Normal Clear [facility] Comment on above: Performed By: #### 1 6305712 ####[facility] [address] [place] [address] Color (U) YELLOW Normal Yellow [facility] Comment on above: Performed By: #### 1 5767070 ####[address] [address] Epithelial cells.squamous LM.HPF (Urine sed) [#/Area] 0-2 Normal 0-2 [facility] Comment on above: Performed By: #### 1 9598361 ####[facility] [address] [place] [address] Glucose Test strip (U) [Mass/Vol] Negative Normal Negative [facility] Comment on above: Performed By: #### 1 5975336 ####[facility] [address] [place] [address] Hemoglobin Ql (U) Negative Normal Negative [facility] Comment on above: Performed By: #### 1 7422623 ####[facility] [address] [place] [address] Ketones (U) [Mass/Vol] 1+ Abnormal Negative [facility] Comment on above: Performed By: #### 1 4264901 ####[facility] [address] [place] [address] Funkley.plasma/Lith ium.RBC (Bld) [Mass ratio] 0-3 Normal 0-3 [facility] Comment on above: Performed By: #### 1 6703000 ####[facility] [address] [place] [address] Mucus Ql (Urine sed) TRACE Normal [facility] Comment on above: Performed By: #### 1 6669748 ####[facility] [address] [place] [address] Nitrite Ql (U) Negative Normal Negative [facility] Comment on above: Performed By: #### 1 2436279 ####[address] [address] pH (U) 7.0 [pH] Invalid Interpretation Code 5.0-9.0 [facility] Comment on above: Performed By: #### 1 4238625 ####[address] [address] Protein (U) [Mass/Vol] Negative Normal Negative [facility] Comment on above: Performed By: #### 1 9630973 ####[address] [address] Specific gravity (U) [Rel density] 1.020 Invalid Interpretation Code 1.005-1.03 0 [facility] Comment on above: Performed By: #### 1 3100544 ####[address] [address] Type of Urine collection method Clean Catch Normal [facility] Comment on above: Performed By: #### 1 3708712 ####[address] [address] Urobilinogen Qn (U) 0.2 {Lorie'U}/dL Normal 0.0-1.0 [facility] Comment on above: Performed By: #### 1 0604149 ####[facility] [address] [place] [address] WBC Auto Ql (U) TRACE Abnormal Negative [facility] Comment on above: Performed By: #### 1 6069700 ####[facility] [address] [place] [address] WBC LM.HPF (Urine sed) [#/Area] 0-5 Normal 0-5 [facility] Comment on above: Performed By: #### 1 0851750 ####[facility] [address] [place] [address] US 1st Trimesteron 07-15-2023 US 1st Trimester Exam Date/Time: 07/15/2023 11:52 EST Reason for Exam: pain;Other (please specify) Report IMPRESSION: THERE IS AN INTRAUTERINE GESTATIONAL SAC OF POSSIBLE POLE. NO CARDIAC ACTIVITY IS DETECTED. COMPOSITE ULTRASOUND AGE: 6 WEEKS, 3 DAYS. RECOMMEND SERIAL BETA-HCG LEVELS CLINICAL HISTORY: pain. LMP: 04/10/2023 HOMER from LMP: 01/15/2024 Gestational Age by LMP: 13 weeks, 5 days HOMER from average ultrasound age: 0803/06/2024 Composite Ultrasound Age: 6 weeks, 3 days COMPARISON: COMMENT: Transabdominal. Endovaginal images were obtained. A single gestational sac is identified within the uterine fundus with a diameter of: A yolk sac and small pole are identified within the gestational sac. The crown-rump length and the corresponding gestational age +/- 1 week are: Merriman Rump Length: 0.5 cm Composite Ultrasound Age: 6 weeks, 3 days HOMER from average ultrasound age: 0803/06/2024 There is no detectable cardiac activity There is no free fluid. Ordering Provider: Chapincito José FINAL REPORT Dictated: 07/15/2023 1:29 pm Mariusz Sepulveda MD, V. Signed (Electronic Signature): 07/15/2023 1:29 pm Signed by: Mariusz Sepulveda MD, V. Transcribed by: SEBASTIAN Technologist: SHANON Technical Comments LMP : 04/10/2023 Regular History 2 Para 1 Transabdominal Ultrasound Performed Transvaginal Ultrasound Performed Normal [facility] US Transvaginalon 07-15-2023 US Transvaginal Exam Date/Time: 07/15/2023 11:53 EST Reason for Exam: Pain Report IMPRESSION: PLEASE SEE ULTRASOUND REPORT. CLINICAL HISTORY: Pain COMPARISON: NONE. FINDINGS: Ordering Provider: Chapincito José FINAL REPORT Dictated: 07/15/2023 1:30 pm Mariusz Sepulveda MD, V. Signed (Electronic Signature): 07/15/2023 1:30 pm Signed by: Mariusz Sepulveda MD, V. Transcribed by: SEBASTIAN Technologist: HW Normal [facility] eGFRon 07-15-2023 GFR/1.73 sq M.predicted among non-blacks MDRD (S/P/Bld) [Vol rate/Area] mL/min/{1.73_m2} Normal >=59 [facility] Comment on above: Order Comment: Order added by Discern Expert. Performed By: #### 2 914801, 1341960, 9700986, 2925950, 3372546, 26269777, 9539661 ####[facility] [address] [place] [address] ED Note-Physicianon 02-26-20 ED Note-Physician Basic Information Time Seen: Son Reyes MD 02/19/2023 17:15 Chief Complaint pt presents with feeling of her face feeling hot around noon with intermitten tunnel vision and denies right now. I dont feel like my breaths are good History of Present Illness 27-year-old female presents with a complaint of feeling of generalized weakness lightheadedness with narrowed vision. Patient states the symptoms started at rest at about noon today while sitting. She was just ready to begin lunch when the symptoms started.. She states that she felt like her face was flushed. She denied diaphoresis however. There was no associated nausea. Her vision did not grow narrow. She was afraid that if she stood up she would pass out. There was no pain with this. There were no palpitations she subsequently did feel slightly short of breath felt like she could not get enough air. She also felt like there was a discomfort at the sternal notch. Patient has a history of endometriosis. She just discontinued her control pills 2 months ago. She has been evaluated by cardiology previously for palpitations and chest pain. Stress echo was negative. Patient's last period was 2 weeks ago. She denies any abdominal pain or nausea with this. Review of Systems A 10 point review of systems is negative except as noted above. Medical and Surgical History: Reviewed and noted Social history: Lives at home Tobacco: Denies Physical Exam Vitals & Measurements T: 36.7 ?C(Oral) HR: 65(Peripheral) RR: 22 BP: 102/77 SpO2: 100% HT: 160 cm WT: 63 kg BMI: 24.61 This is a well-developed 27-year-old female she is alert and oriented her skin is warm and dry color is pink on room air. I do not detect any facial flushing. Trachea is midline there is no masses she is able to swallow comfortably in there is no detectable hoarseness. The heart is regular without murmur gallop or rub lungs are clear to auscultation there is good air entry and no adventitious sounds. The abdomen is soft and nontender. There is no swelling or tenderness in either leg. Medical Decision Making I explained to the patient that the initial symptoms she described sounded like near syncope. Subsequently the shortness of breath and tightness at the base of the throat is suspicious for some anxiety or some hyperventilation. This may have complicated the entire picture. We will focus on the initial symptoms which was a feeling of lightheadedness and near syncope. Assessment/Plan 1. Near syncope (R55: Syncope and collapse) Orders: Sodium Chloride 0.9% intravenous solution, 1,000 mL, Soln-IV, IV, Once, Stop date 02/19/23 17:51:00 EDT, STAT, Start date 02/19/23 17:51:00 EDT, Infuse over 61, minute(s) Automated Diff Basic Metabolic Panel Beta hCG Qual CBC w/ Auto Diff ECG 12 Lead Adult ED Cardiac Monitoring eGFR Orthostatic Vitals Signs Oxygen Saturation PT & PTT Troponin 0 Hr. Troponin 3 Hr. Troponin 6 Hr. Troponin 9 Hr. XR Chest Single View XR Neck Soft Tissue Medications Administered Given NS 1000 ml Bolus, 1000 mL, IV Disposition Plan Patient Discharge Condition Stable Discharge Disposition Home Discharge Prescription List Prescriptions No active prescription medications Follow-up With When Contact Information Asad OWENS In 3 days 02/22/2023 EDT [address] [place] [address]- Business (1) Additional Instructions: Return to the emergency room if your symptoms get worse or any new symptoms Patient Education Near-Syncope Problem List/Past Medical History Ongoing Abnormal mammogram Allergic rhinitis BMI 25.0-25.9,adult Breast discharge Breast lump or mass Breast mass Breast pain, right Chest tightness Chronic female pelvic pain Diarrhea Dysuria Fainting episodes Fatigue Febrile seizures IBS (irritable bowel syndrome) Irregular menses Lymphadenopathy Menorrhagia Nipple discharge Other nail disorders Overweight (BMI 25.0-29.9) Pelvic congestion syndrome Serous otitis media Shortness of breath Thyromegaly Vaginal discharge Viral syndrome Vitamin D deficiency Historical Adult BMI 27.0-27.9 kg/sq m Adult body mass index 28.0-28.9 Gilbert syndrome Procedure/Surgical History Excision of cyst, fibroadenoma, or other benign or malignant tumor, aberrant breast tissue, duct lesion, nipple or areolar lesion (except [address]), open, male or female, 1 or more lesions (11/01/2020), Esophagogastroduodenoscopy (04/14/2019), Laparoscopy (2018), Colonoscopy (02/25/2015), wisdom teeth removed x4 (2010). Medications Inpatient No active inpatient medications Home Lo Loestrin Fe oral tablet Naprosyn 500 mg Tab, 500 mg= 1 tab(s), Oral, BID, PRN omeprazole 40 mg Cap-DR, 40 mg= 1 cap(s), Oral, Daily Vitamin D 50,000 intl units (1.25 mg) oral capsule, [address] International_Unit= 1 cap(s), Oral, qWeek, 11 refills, Not taking Zofran ODT 4 mg Tab-Dis, 4 mg= 1 tab(s), Oral, TID Allergies Vitaly (more content not included)... Normal [facility] Comment on above: Result Comment: Elec tronically Signed By: Eric PAGE, Son\.br\Date and Time Signed: 02/24/23 22:24 EDT Discharge Instructionson Discharge Instructions [id number]:127 Normal [facility] Auto Diffon 02-19-2023 Basophils/100 WBC (Bld) 0.3 % Normal 0.0-2.0 [facility] Comment on above: Order Comment: Order Added by Discern Expert. Performed By: #### 1 8635146, 3695087, 90021973, 19622039, 7806260, 8844182, 09867481 ####[facility] [address] [place] [address] Basophils/Leukocyte s Auto (Bld) [Pure # fraction] 0.0 E9/L Normal 0.0-0.2 [facility] Comment on above: Order Comment: Order Added by Discern Expert. Performed By: #### 1 3121373, 4879740, 66829453, 23559133, 5337071, 8744696, 42543601 ####[address] [place] [address] Eosinophils/100 WBC (Bld) 0.7 % Normal 0.0-8.0 [facility] Comment on above: Order Comment: Order Added by Discern Expert. Performed By: #### 1 4664186, 0909438, 87455536, 82751532, 2593332, 1974391, 53412879 ####[address] [address] Eosinophils/Leukocy kashmir Auto (Bld) [Pure # fraction] 0.0 E9/L Normal 0.0-0.5 [facility] Comment on above: Order Comment: Order Added by Discern Expert. Performed By: #### 1 5173914, 8379880, 73717333, 13615930, 6286728, 1486988, 72594080 ####[address] [address] Lymphocytes/100 WBC (Bld) 27.4 % Normal 14.0-50.0 [facility] Comment on above: Order Comment: Order Added by Discern Expert. Performed By: #### 1 3207248, 3382585, 64703480, 82367063, 0037134, 8122129, 05770268 ####[address] [address] Lymphocytes/Leukocy kashmir Auto (Bld) [Pure # fraction] 1.8 E9/L Normal 1.0-4.0 [facility] Comment on above: Order Comment: Order Added by Huang Expert. Performed By: #### 1 1302886, 4990390, 32745526, 61845440, 0137279, 3097913, 78438152 ####[address] [address] Monocytes/100 WBC (Bld) 5.2 % Normal 4.0-14.0 [facility] Comment on above: Order Comment: Order Added by Discern Expert. Performed By: #### 1 4379312, 8885938, 93069871, 71263824, 9420209, 3720926, 64200946 ####[facility] [address] [place] [address] Monocytes/Leukocyte s Auto (Bld) [Pure # fraction] 0.4 E9/L Normal 0.2-1.0 [facility] Comment on above: Order Comment: Order Added by Discern Expert. Performed By: #### 1 1009279, 5440876, 70769833, 84585983, 1615642, 7456400, 33812261 ####[address] [place] [address] Neutrophils/100 WBC (Bld) 66.4 % Normal 36.0-75.0 [facility] Comment on above: Order Comment: Order Added by Discern Expert. Performed By: #### 1 6211302, 2141495, 07554414, 29608461, 6756887, 2577846, 07682549 ####[address] [place] [address] Neutrophils/Leukocy kashmir Auto (Bld) [Pure # fraction] 4.5 E9/L Normal 2.0-7.5 [facility] Comment on above: Order Comment: Order Added by Discern Expert. Performed By: #### 1 0987234, 0892978, 11228499, 13314496, 9291737, 7776383, 85266689 ####[facility] [address] [place] [address] B hCG Qualon 02-19-2023 Beta hCG Ql Negative Normal [facility] Comment on above: Performed By: #### 1 8515865, 3194081, 75034308, 72712928, 0130692, 7868833, 19849397 ####[facility] [address] [place] [address] BMPon 02-19-2023 Creatinine [Mass/Vol] 0.5 mg/dL Normal 0.5-1.3 [facility] Comment on above: Performed By: #### 1 4480711, 0497540, 42617260, 03700072, 5206292, 1461276, 51230497 ####[facility] [address] [place] [address] Urea nitrogen [Mass/Vol] 10 mg/dL Normal 5-21 [facility] Comment on above: Performed By: #### 1 9139119, 4401848, 92974580, 26062862, 4830350, 1331412, 45429886 ####[facility] [address] [place] [address] Urea nitrogen/Creatinine [Mass ratio] 20 No Units Normal 10-20 [facility] Comment on above: Performed By: #### 1 2916372, 8268998, 73520650, 55685913, 7311269, 2670425, 99138672 ####[facility] [address] [place] [address] Anion gap [Moles/Vol] 13 mmol/L Normal 6-16 [facility] Comment on above: Performed By: #### 1 8391356, 7568316, 36523974, 86791205, 6432033, 5761198, 34048768 ####[facility] [address] [place] [address] Calcium [Mass/Vol] 9.4 mg/dL Normal 8.9-11.1 [facility] Comment on above: Performed By: #### 1 2228196, 8601651, 35798714, 95499609, 3615793, 2800441, 88114586 ####[facility] [address] [place] [address] Chloride [Moles/Vol] 105 mmol/L Normal 101-111 [facility] Comment on above: Performed By: #### 1 9713355, 1519895, 80308486, 28385848, 7774134, 4142182, 99175251 ####[facility] [address] [place] [address] CO2 [Moles/Vol] 24 mmol/L Normal 21-31 [facility] Comment on above: Performed By: #### 1 9982992, 7280652, 26701799, 25066297, 7643798, 7287498, 63068085 ####[facility] [address] [place] [address] Glucose [Mass/Vol] 92 mg/dL Normal 55-199 [facility] Comment on above: Result Comment: If t his glucose result represents a fasting glucose, interpretation should refer to the following reference range: 55-99 mg/dL Performed By: #### 1 2335685, 0316286, 06522030, 12217314, 2170821, 8230852, 29883637 ####[address] [place] [address] Potassium [Moles/Vol] 3.4 mmol/L Low 3.5-5.3 [facility] Comment on above: Performed By: #### 1 6115838, 4324070, 75512516, 76800722, 3774111, 1269191, 11701315 ####[facility] [address] [place] [address] Sodium [Moles/Vol] 139 mmol/L Normal 135-145 [facility] Comment on above: Performed By: #### 1 1460325, 1620727, 57678732, 98018706, 1030474, 7087403, 15573932 ####[facility] [address] [place] [address] CBC w/ Auto Diffon 3 Erythrocyte distribution width (RBC) [Ratio] 12.7 % Normal 10.9-14.2 [facility] Comment on above: Performed By: #### 1 8132213, 8829752, 56939336, 77557935, 2732651, 9382817, 64612174 ####[facility] [address] [place] [address] Hematocrit (Bld) [Volume fraction] 40.0 % Normal 34.0-46.0 [facility] Comment on above: Performed By: #### 1 2465323, 8126134, 49123709, 12241726, 2441709, 3388680, 08233124 ####[facility] [address] [place] [address] Hemoglobin (Bld) [Mass/Vol] 13.7 g/dL Normal 12.0-16.0 [facility] Comment on above: Performed By: #### 1 6039744, 1284483, 01220617, 77810129, 1951402, 9846655, 83416306 ####[facility] [address] [place] [address] MCH (RBC) [Entitic mass] 29.4 pg Normal 27.0-34.0 [facility] Comment on above: Performed By: #### 1 6357987, 3748040, 95447289, 99340124, 4603663, 2987735, 34491789 ####[address] [address] MCHC (RBC) [Mass/Vol] 34.1 g/dL Normal 31.4-36.0 [facility] Comment on above: Performed By: #### 1 4362786, 9697344, 69782336, 52013419, 0946299, 2709164, 38168348 ####[address] [place] [address] MCV (RBC) [Entitic vol] 86.2 fL Normal 80.0-100.0 [facility] Comment on above: Performed By: #### 1 8925551, 6741124, 74271714, 48743989, 6081361, 7236019, 73882389 ####[address] [place] [address] Platelet mean volume (Bld) [Entitic vol] 8.0 fL Normal 6.4-10.8 [facility] Comment on above: Performed By: #### 1 9014543, 0507265, 72325189, 57858547, 7131849, 2659488, 96319566 ####[facility] [address] [place] [address] Platelets (Bld) [#/Vol] 197.0 E9/L Normal 150.0-500. 0 [facility] Comment on above: Performed By: #### 1 6355011, 2837312, 62809268, 75009050, 4344527, 4668823, 42604695 ####[facility] [address] [place] [address] RBC (Bld) [#/Vol] 4.6 E12/L Normal 4.3-5.9 [facility] Comment on above: Performed By: #### 1 3982121, 2570298, 43675885, 95654261, 2139309, 0559750, 50356301 ####[facility] [address] [place] [address] WBC corrected for nucl RBC Auto (Bld) [#/Vol] 6.7 E9/L Normal 4.0-11.0 [facility] Comment on above: Performed By: #### 1 8909029, 1310606, 69573930, 19358398, 6907240, 5345897, 35064638 ####[facility] [address] [place] [address] Consent for Treatmenton 01-31 Consent for Treatment [id number]:127 Normal [facility] ED Clinical Summaryon 2022 ED Clinical Summary (Inserted Image. Nikki ble to display) [address] [address] ED Clinical Summary Person Information Name: FERNANDA CHA [place] Age: 27 Years : 1995 Sex: Female Language: Cook Islander PCP: NONE, XXXX Marital Status: Single Visit Id: Visit Reason: Medical screening exam; TUNNEL VISION, FEELS FOGGY, SHAKEY Speciality: Acuity: 3 Enc Type: Emergency Med Service: Emergency Arrival: 02/19/2023 17:11:01 Discharge: 02/19/2023 21:26:51 LOS: 000 04:15 Checkin: 02/19/2023 17:11:01 Checkout: 02/19/2023 21:26:51 Dispo Type: Home (Routine DC) EVENTS: Event Name Event Status Request Date/Time Start Date/Time Complete Date/Time Arrive Complete 02/19/2023 17:11:01 02/19/2023 17:11:01 02/19/2023 17:11:01 Document Home Meds Request 02/19/2023 17:11:01 Triage Complete 02/19/2023 17:11:01 02/19/2023 17:22:13 02/19/2023 17:22:13 Dr Exam Complete 02/19/2023 17:15:32 02/19/2023 17:15:32 02/19/2023 17:15:32 Registration Complete 02/19/2023 17:15:32 02/19/2023 17:16:59 02/19/2023 17:34:22 Bed Assign Complete 02/19/2023 17:16:59 02/19/2023 17:16:59 02/19/2023 17:16:59 RN Exam Complete 02/19/2023 17:16:59 02/19/2023 18:28:08 02/19/2023 18:28:08 Reg Complete Request 02/19/2023 17:34:22 Reg Bed Request Complete 02/19/2023 17:34:22 02/19/2023 17:34:22 02/19/2023 17:34:22 EKG Complete 02/19/2023 17:51:51 02/19/2023 18:10:05 Meds Admin Complete 02/19/2023 17:51:51 02/19/2023 18:14:14 Pending Labs Request 02/19/2023 17:51:51 Lab Complete 02/19/2023 17:51:51 02/19/2023 18:36:18 Patient Care Request 02/19/2023 17:51:51 X-Ray Complete 02/19/2023 17:51:51 02/19/2023 17:55:15 02/19/2023 18:09:23 Wet Read Request 02/19/2023 18:09:23 Pending Labs Complete 02/19/2023 18:20:59 02/19/2023 18:20:59 02/19/2023 18:35:55 Lab Complete 02/19/2023 18:20:59 02/19/2023 18:20:59 02/19/2023 18:35:55 Pending Labs Complete 02/19/2023 18:36:18 02/19/2023 18:36:18 02/19/2023 18:36:25 Lab Complete 02/19/2023 18:36:18 02/19/2023 18:36:18 02/19/2023 18:36:25 Discharge Complete 02/19/2023 21:14:36 02/19/2023 21:26:56 02/19/2023 21:26:56 Transfer Complete 02/19/2023 21:26:56 02/19/2023 21:26:56 02/19/2023 21:26:56 ADDRESS: [address] [place] [id number] PHYS DOC NOTES: MEDICAL INFORMATION: Prescriptions Given: Medications to Continue with No Changes Other Medications ergocalciferol (Vitamin D 50,000 intl units (1.25 mg) oral capsule) 1 Capsules By Mouth every week. Refills: 11. ethinyl estradiol-norethindrone (Lo Loestrin Fe oral tablet) TAKE ONE TAB BY MOUTH PER DAY .. naproxen (Naprosyn 500 mg Tab) 1 Tablets By Mouth 2 times a day as needed for pain. Refills: 0. omeprazole (omeprazole 40 mg Cap-DR) 1 Capsules By Mouth every day. Refills: 0. ondansetron (Zofran ODT 4 mg Tab-Dis) 1 Tablets By Mouth 3 times a day. Refills: 0. PATIENT EDUCATION INFORMATION: Instructions: Near-Syncope Follow up: With: Address: When: Asad [address]in[address], [place] [address] [place] [address] Business (1) In 3 days 02/22/2023 Comments: Return to the emergency room if your symptoms get worse or any new symptoms DIAGNOSIS: 1:Near syncope Normal [facility] ED Patient Education Noteon 02-19-2023 ED Patient Education Note Neurology Near-Syncope Near-syncope is when you suddenly feel like you might pass out or faint, but you do not actually lose consciousness. This may also be referred to as presyncope. During an episode of near-syncope, you may: ? Feel dizzy, weak, light-headed, or like the room is spinning. ? Feel nauseous. ? See spots or see all white or all black in your field of vision. ? Have cold, clammy skin or feel warm and sweaty. ? Hear ringing in your ears (tinnitus). This condition is caused by a sudden decrease in blood flow to the brain. This decrease can result from various causes, but most of those causes are not dangerous. However, near-syncope may be a sign of a serious medical problem, so it is important to seek medical care. Follow these instructions at home: Medicines ? Take iufc-skr-ycyefut and prescription medicines only as told by your health care provider. ? If you are taking blood pressure or heart medicine, get up slowly and take several minutes to sit and then stand. This can reduce dizziness and decrease the risk of near-syncope. Lifestyle ? Do not drive, use machinery, or play sports until your health care provider says it is okay. ? Do not drink alcohol. ? Do not use any products that contain nicotine or tobacco. These products include cigarettes, chewing tobacco, and vaping devices, such as e-cigarettes. If you need help quitting, ask your health care provider. ? Avoid hot tubs and saunas. General instructions ? Pay attention to any changes in your symptoms. ? Talk with your health care provider about your symptoms. You may need to have testing to understand the cause of your near-syncope. ? If you start to feel like you might faint, sit or lie down right away. If sitting, put your head down between your legs. If lying down, raise (elevate) your feet above the level of your heart. ? Breathe deeply and steadily. Wait until all of the symptoms have passed. ? Have someone stay with you until you feel stable. ? Drink enough fluid to keep your urine pale yellow. ? Avoid prolonged standing. If you must stand for a long time, do movements such as: ? Moving your legs. ? Crossing your legs. ? Flexing and stretching your leg muscles. ? Squatting. ? Keep all follow-up visits. This is important. Contact a health care provider if: ? You continue to have episodes of near fainting. Get help right away if: ? You faint. ? You have any of these symptoms that may indicate trouble with your heart: ? Fast or irregular heartbeats (palpitations). ? Unusual pain in your chest, abdomen, or back. ? Shortness of breath. ? You have a seizure. ? You have a severe headache. ? You are confused. ? You have vision problems. ? You have severe weakness or trouble walking. ? You are bleeding from your mouth or rectum, or have black or tarry stool. These symptoms may represent a serious problem that is an emergency. Do not wait to see if your symptoms will go away. Get medical help right away. Call your local emergency services (911 in the [place] Do not drive yourself to the hospital. Summary ? Near-syncope is when you suddenly feel like you might pass out or faint, but you do not actually lose consciousness. ? This condition is caused by a sudden decrease in blood flow to the brain. This decrease can result from various causes, but most of those causes are not dangerous. ? Near-syncope may be a sign of a serious medical problem, so it is important to seek medical care. ? If you start to feel like you might faint, sit or lie down right away. If sitting, put your head down between your legs. If lying down, raise (elevate) your feet above the level of your heart. ? Talk with your health care provider about your symptoms. You may need to have testing to understand the cause of your near-syncope. This information is not intended to replace advice given to you by your health care provider. Make sure you discuss any questions you have with your health care provider. Document Revised: 11/27/2021 Document Reviewed: 11/27/2021 Elsevier Patient Education ? 2022 Elsevier Inc. Normal [facility] ED Patient Summaryon 023 ED Patient Summary (Inserted Image. Nikki ble to display) [place] [id number] Patient Discharge Instructions Person Information Name: ELODIA, FERNANDA A Age: 27 Years Arrival Date: 02/19/2023 17:11:01 Discharge Diagnosis: 1:Near syncope Primary Care Physician: NONE, XXXX Provider Information Primary Provider: Son Reyes MD Advanced Bar Assistant:Sarthak The exam and treatment you received in the Emergency Department were for an urgent problem and are not intended as complete care. It is important that you follow up with a doctor, nurse practitioner, or physician?s credit assistant for ongoing care. If your symptoms become worse or you do not improve as expected and you are unable to reach your usual health care provider, you should return to the Emergency Department. We are available 24 hours a day. FERNANDA CHA has been given the following list of patient education materials, prescriptions and follow-up instructions: Follow-up Instructions: With: Address: When: Asad OWENS [address] [place] [address], [address] [place] [id number] Business (1) In 3 days 02/22/2023 Comments: Return to the emergency room if your symptoms get worse or any new symptoms In the event that this physician does not participate in your insurance network, please consult with your insurance company to find a nearby participating provider. Patient Education Materials: Near-Syncope A MESSAGE TO ALL PATIENTS REGARDING OPIOIDS PRESCRIPTION OPIOIDS: WHAT YOU NEED TO KNOW Prescription opioids can be used to help relieve tmuemtqf-hu-bgpyhv pain and are often prescribed following a surgery or injury, or for certain health conditions. These medications can be an important part of the treatment but also come with serious risks. It is important to work with your healthcare provider to make sure you are getting the safest, most effective care. WHAT ARE THE RISKS AND SIDE EFFECTS OF OPIOID USE? Prescription opioids carry serious risks of addiction and overdose, especially with prolonged use. An opioid overdose, often marked by slowed breathing, can cause sudden . The use of prescription opioids can have a number of side effects as well, even when taken as directed: ? Tolerance?meaning you might need to take more of the medication for the same pain relief ? Physical dependence?meaning you have symptoms of withdrawal when a medication is stopped ? Increased sensitivity to pain ? Constipation ? Nausea, vomiting, and dry mouth ? Sleepiness and dizziness ? Confusion ? Depression ? Low levels of testosterone that can result in lower sex drive, energy, and strength ? Itching and sweating RISKS ARE GREATER WITH: ? History of drug misuse, substance use disorder, or overdose ? Mental health conditions (such as depression or anxiety) ? Sleep apnea ? Older age (65 years and older) ? Avoid alcohol while taking prescription opioids. Also, unless specifically advised by your health care provider, medications to avoid include: ? Benzodiazepines (such as Xanax or Valium) ? Muscle relaxants (such as Soma or Flexeril) ? Hypnotics (such as Ambien or Lunesta) ? Other prescription opioids KNOW YOUR OPTIONS Talk to your health care provider about ways to manage your pain that don?t involve prescription opioids. Some of these options may actually work better and have fewer risks and side effects. Options may include: ? Pain relievers such as acetaminophen, ibuprofen, and naproxen ? Some medication that are also used for depression or seizures ? Physical therapy and exercise ? Cognitive behavioral therapy, a psychological, goal-directed approach, in which patients learn how to modify physical, behavioral, and emotional triggers of pain and stress. IF YOU ARE PRESCRIBED OPIOIDS FOR PAIN: ? Never take opioids in greater amounts or more often than prescribed. ? Follow up with your primary health care provider. o Work together to create a plan on how to manage your pain. o Talk about ways to help manage your pain that don?t involve prescription opioids. o Talk about any and all concerns and side effects. ? Help prevent misuse and abuse o Never sell or share prescription opioids. o Never use another person?s prescription opioids. ? Store prescription opioids in a secure place and out of reach of others (this may include visitors, children, friends, and family). ? Safely dispose of unused prescription opioids: Find your community drug take-back program or your pharmacy mail-back program, or flush them down the toilet, following guidance from the Food and Drug Administration (www.fda.gov/Drugs/ResourcesFo rYou). ? Visit www.cdc.gov/drugoverdose to learn about the risks of opioids abuse and overdose. ? If you believe you may be struggling with addiction, tell your health resident care assistant and ask for guidance or call [facility] National Help (more content not included)... Normal [facility] Monitor Recordon 02-19-2023 Monitor Record [id number]:127 Normal [facility] Monitor Record [id number]#[id number]:127 Normal [facility] Monitor Record [id number]:127 Normal [facility] PT & PTTon 02-19-2023 aPTT Coag (PPP) [Time] 34.7 second(s) Normal 25.1-36.5 [facility] Comment on above: Result Comment: Para meter 15 days - 4 weeks 1 - 5 months 6 - 11 months 1 - 5 years 6 - 10 years 11 - 17 years PTT Mean: 35.4 (27.6-45.6) Mean: 33.5 (24.8-40.7) Mean: 32.4 (25.1-40.7) Mean: 31.6 (24.0-39.2) Mean: 31.6 (26.9-38.7) Mean: 31.0 (24.6-38.4) Pediatric Reference ranges were obtained from a study by Baltazar Patterson et al. prepared from 1437 samples obtained at 7 different centers using the same coagulation reagent and instrumentation as [facility]. Currently there are no coagulation studies available worldwide for children to 14 days, and no normal ranges. Heparin therapeutic range (represented by Anti-Factor Xa activity of 0.2 - 0.4 U/mL) corresponds to PTT of 56.6 - 109.0 sec. Performed By: #### 1 [id number], [id number], [id number], [id number], [id number], [id number] ####[facility] [address] [place] [address] INR Coag (PPP) [Relative time] 1.0 {INR} Invalid Interpretation Code [facility] Comment on above: Result Comment: INR results are specifically intended to assess patients stabilized on long-term Anticoagulation therapy suggested INR?s ?Less Intensive Anticoagulation? 2.0 ? 3.0 Conventional Range 3.0 ? 4.5 Performed By: #### 1 [id number], [id number], [id number], [id number], 8872460, [id number], [id number] ####[facility] [address] [place] [address] PT Coag (PPP) [Time] 11.1 second(s) Normal 9.4-12.5 [facility] Comment on above: Result Comment: 15 d ays - 4 weeks 1 - 5 months 6 -11 months 1 ? 5 years 6 ? 10 years 11 -17 years Mean: 11.2 (9.5 ? 12.6) Mean: 11.0 (9.7 ? 12.8) Mean: 11.0 (9.8 ? 13.0) Mean: 11.3 (9.9 ? 13.4) Mean: 11.7 (10.0 ? 14.6) Mean: 11.8 (10.0 - 14.1) Pediatric Reference ranges were obtained from a study by Baltazar Patterson et al. prepared from 1437 samples obtained at 7 different centers using the same coagulation reagent and instrumentation as [facility]. Currently there are no coagulation studies available worldwide for children to 14 days, and no normal ranges. Performed By: #### 1 [id number], [id number], [id number], 25694399, 0214863, 4710452, [id number] ####[facility] [address] [place] [address] Progress Note-Nurseon 2022 Progress Note-Nurse Patient to CT scan Normal [facility] Troponin 0 Hr.on 02-19-2023 Troponin I.cardiac [Mass/Vol] ng/mL Low 10.10-27.1 0 [facility] Comment on above: Result Comment: The 95% CI (Confidence Interval) PPV (Positive Predictive Value) for myocardial infarction in females is 38 pg/mL, in males 51 pg/mL. The results should be used in conjunction with clinical conditions of myocardial infarction. (Access High Sensitivity Troponin I Instructions For Use, Patricia [place], March 2018) Performed By: #### 1 [id number], [id number], [id number], [id number], 7144952, [id number], [id number] ####[facility] [address] [place] [address] Troponin 3 Hr.on 02-19-2023 Troponin I.cardiac [Mass/Vol] ng/mL Low 10.10-27.1 0 [facility] Comment on above: Result Comment: The 95% CI (Confidence Interval) PPV (Positive Predictive Value) for myocardial infarction in females is 38 pg/mL, in males 51 pg/mL. The results should be used in conjunction with clinical conditions of myocardial infarction. (Access High Sensitivity Troponin I Instructions For Use, Patricia [place], March 2018) Performed By: #### 1 [id number] ####[facility] [address] [place] [address] XR Chest Single Viewon 02-19 XR Chest Single View Exam Date/Time: 02/19/2023 18:09 EDT Reason for Exam: Chest pain Report IMPRESSION: NO RADIOGRAPHIC EVIDENCE OF ACUTE INTRATHORACIC PROCESS. EXAM: XR Chest Single View History: Chest pain Technique: Portable AP view of the chest. Comparison: Portable chest radiograph 11/16/2020 Findings: The cardiomediastinal silhouette is within normal limits. No pneumothorax, pleural effusion, or consolidation. Bones of the thorax appear intact. Ordering Provider: Son Reyes FINAL REPORT Dictated: 02/19/2023 6:30 pm Grayson Hankins DO Signed (Electronic Signature): 02/19/2023 6:30 pm Signed by: Grayson Hankins DO Transcribed by: SEBASTIAN Technologist: AP Technical Comments Radiation Dose: Ka,r in mGy = na DAP = na Normal [facility] XR Neck Soft Tissueon 2022 XR Neck Soft Tissue Exam Date/Time: 02/19/2023 18:09 EDT Reason for Exam: Dysphagia Report IMPRESSION: NO ACUTE ABNORMALITY. EXAMINATION: XR Neck Soft Tissue HISTORY: Dysphagia. COMPARISON: None available TECHNIQUE: AP and lateral views of the soft tissues of the neck FINDINGS: Prevertebral soft tissues are within normal limits. Epiglottis is within normal limits. Airway appears patent. No radiopaque foreign body. Straightening of the cervical lordosis. Ordering Provider: Son Reyes FINAL REPORT Dictated: 02/19/2023 6:31 pm Grayson Hankins DO Signed (Electronic Signature): 02/19/2023 6:31 pm Signed by: Grayson Hankins DO Transcribed by: SEBASTIAN Technologist: AP Technical Comments Radiation Dose: Ka,r in mGy = na DAP = na Normal [facility] eGFRon 02-19-2023 GFR/1.73 sq M.predicted among non-blacks MDRD (S/P/Bld) [Vol rate/Area] 130 mL/min/1.73 m2 Normal >=59 [facility] Comment on above: Order Comment: Order added by Discern Expert. 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 Kidney failure is indicated at less than 15 mL/min/1.73m2. Performed By: #### 1 [id number], [id number], [id number], [id number], [id number], [id number], [id number] ####[facility] [address] [place] [address] [facility] FERNANDA CHA ([id number]) 1995 F Date Time Provider Department 10/12/22 BELLA BARRERA During your visit today, we recorded the following information about you: Bella Barrera RN 10/12/2022 1:45 PM Signed Attempted to reach patient re: appointment. No answer. Message left with callback number. Bella Barrera RN Allergies As of Date: 10/12/2022 (Not on File) Date Reviewed: 08/25/2022 Reviewed by: Fernanda Butler DO - Fully Assessed Reason for Visit: Appointment [186] Problem List As Of Date: 10/12/2022 (None) Encounter Status:Closed by BELLA BARRERA on 10/14/22 [facility] DANIEL MARINA BILroz 2022 [facility] DIAG W LAINA KAYA * * *Final Report* * * DATE OF EXAM: Oct 07 2022 11:40AM [facility]W [id number] - [facility] DANIEL W LAINA KAYA / PROCEDURE REASON: multiple diagnoses * * * * Physician Interpretation * * * * RESULT: #[id number] - [facility] DANIEL Colón LAINA KAYA #[id number] - [facility] US BREAST LTD RT BILATERAL DIGITAL DIAGNOSTIC MAMMOGRAM TOMOSYNTHESIS WITH CAD: 10/07/2022 HISTORY: Multiple Diagnoses Multiple Diagnoses. RESULT: TECHNIQUE: The study was acquired using full field digital technology and interpreted from soft copy. Digital Breast Tomosynthesis (DBT) images were obtained and used to assist in the interpretation of this examination. Current study was also evaluated with a Computer Aided Detection (CAD). Comparison is made to exam dated: 10/07/2022 breast MRI - [facility]. The tissue of both breasts is extremely dense, which lowers the sensitivity of mammography. The patient is status post surgical excision right breast. The right breast has post-operative findings. No significant masses, calcifications, or other findings are seen in either breast. IMPRESSION: INCOMPLETE: NEEDS ADDITIONAL IMAGING EVALUATION There is no abnormality seen in the right breast to correspond with the area of clinical concern in the upper outer quadrant, however, ultrasound is recommended. There is no abnormality seen in the right breast to correspond with the discharge from the nipple in the sub-areolar depth, however, ultrasound is recommended. LIMITED ULTRASOUND OF RIGHT BREAST: 10/07/2022 RESULT: Comparison is made to exam dated: 10/07/2022 breast MRI - [facility]. Color flow and real-time ultrasound of the right breast upper outer quadrant and retroareolar regions were performed on the areas of interest. There is a benign 5 mm oval simple cyst in the right breast at 12 o'clock in the retroareolar region. This oval simple cyst is anechoic with posterior acoustic enhancement. This correlates as an incidental finding. Color flow imaging demonstrates that there is no vascularity present. No significant abnormalities were seen sonographically in the right breast. IMPRESSION: BENIGN FINDING There is no sonographic evidence of malignancy. The 5 mm oval simple cyst in the right breast is benign. There is no abnormality seen in the right breast to correspond with the area of clinical concern at 10 o'clock in the upper outer quadrant which is consistent with normal fibroglandular tissue. There is no abnormality seen in the right breast to correspond with the discharge from the nipple in the sub-areolar depth which is consistent with normal fibroglandular tissue. Follow-up with ACR/NCCN guidelines. Izzy burnett/radha:10/07/2022 12:01:11 Multiple national specialty organizations have released breast cancer screening guidelines for women at average risk for developing breast cancer - guidelines that are based on both evidence and opinion, yet differ on when to start and how often to screen for breast cancer. With representation from Breast Imaging, Internal Medicine, [facility]'s [facility], Family Medicine, and Medical/Surgical Oncology, the [facility] has carefully reviewed the data and reached the following consensus: 1) All women should engage in shared decision-making with their providers to decide when to start and how often to screen; 2) All women should have the opportunity to start screening mammography at age 40; 3) For women ages 45-55, we recommend annual screening mammograms; 4) For women ages 55 and over, we support both the transition from an annual to a biennial interval if this aligns more with patient's values and preferences, or continuation with annual screening; 5) All women should discuss with their providers when to stop screening mammograms. Director Outpatient Services(s): RT Catherine(R)(M), [facility] [place] OVERALL STUDY BIRADS: 2 Benign finding Meat Dresser: Radha Transcribe Date/Time: Oct 07 2022 11:47A Dictated by : IZZY BOONE MD This examination was interpreted and the report reviewed and electronically signed by: IZZY BOONE MD on Oct 07 2022 12:01PM EST [id number] Normal [facility] DIAG W LAINA BILATon - [facility] US BREAST LTD RTon 10-07 [facility] US BREAST LTD RT * * *Final Report* * * DATE OF EXAM: Oct 07 2022 11:59AM [facility]W [id number] - [facility] US BREAST LTD RT / PROCEDURE REASON: multiple diagnoses * * * * Physician Interpretation * * * * RESULT: #[id number] - [facility] DIAG W LAINA KAYA #[id number] - [facility] US BREAST LTD RT BILATERAL DIGITAL DIAGNOSTIC MAMMOGRAM TOMOSYNTHESIS WITH CAD: 10/07/2022 HISTORY: Multiple Diagnoses Multiple Diagnoses. RESULT: TECHNIQUE: The study was acquired using full field digital technology and interpreted from soft copy. Digital Breast Tomosynthesis (DBT) images were obtained and used to assist in the interpretation of this examination. Current study was also evaluated with a Computer Aided Detection (CAD). Comparison is made to exam dated: 10/07/2022 breast MRI - [facility]. The tissue of both breasts is extremely dense, which lowers the sensitivity of mammography. The patient is status post surgical excision right breast. The right breast has post-operative findings. No significant masses, calcifications, or other findings are seen in either breast. IMPRESSION: INCOMPLETE: NEEDS ADDITIONAL IMAGING EVALUATION There is no abnormality seen in the right breast to correspond with the area of clinical concern in the upper outer quadrant, however, ultrasound is recommended. There is no abnormality seen in the right breast to correspond with the discharge from the nipple in the sub-areolar depth, however, ultrasound is recommended. LIMITED ULTRASOUND OF RIGHT BREAST: 10/07/2022 RESULT: Comparison is made to exam dated: 10/07/2022 breast MRI - [facility]. Color flow and real-time ultrasound of the right breast upper outer quadrant and retroareolar regions were performed on the areas of interest. There is a benign 5 mm oval simple cyst in the right breast at 12 o'clock in the retroareolar region. This oval simple cyst is anechoic with posterior acoustic enhancement. This correlates as an incidental finding. Color flow imaging demonstrates that there is no vascularity present. No significant abnormalities were seen sonographically in the right breast. IMPRESSION: BENIGN FINDING There is no sonographic evidence of malignancy. The 5 mm oval simple cyst in the right breast is benign. There is no abnormality seen in the right breast to correspond with the area of clinical concern at 10 o'clock in the upper outer quadrant which is consistent with normal fibroglandular tissue. There is no abnormality seen in the right breast to correspond with the discharge from the nipple in the sub-areolar depth which is consistent with normal fibroglandular tissue. Follow-up with ACR/NCCN guidelines. Izzy burnett/radha:10/07/2022 12:01:11 Multiple national specialty organizations have released breast cancer screening guidelines for women at average risk for developing breast cancer - guidelines that are based on both evidence and opinion, yet differ on when to start and how often to screen for breast cancer. With representation from Breast Imaging, Internal Medicine, [facility], Family Medicine, and Medical/Surgical Oncology, the [facility] has carefully reviewed the data and reached the following consensus: 1) All women should engage in shared decision-making with their providers to decide when to start and how often to screen; 2) All women should have the opportunity to start screening mammography at age 40; 3) For women ages 45-55, we recommend annual screening mammograms; 4) For women ages 55 and over, we support both the transition from an annual to a biennial interval if this aligns more with patient's values and preferences, or continuation with annual screening; 5) All women should discuss with their providers when to stop screening mammograms. Director Outpatient Services(s): RT Catherine(R)(M), [facility]'s [facility] & Breast [place] OVERALL STUDY BIRADS: 2 Benign finding Meat Dresser: Radha Transcribe Date/Time: Oct 07 2022 11:47A Dictated by : IZZY BOONE MD This examination was interpreted and the report reviewed and electronically signed by: IZZY BOONE MD on Oct 07 2022 12:01PM EST [id number] Normal [facility] MRI BREAST WO/W IVCON BILon 10-07-2022 MRI BREAST WO/W IVCON KAYA * * *Final Report* * * DATE OF EXAM: Oct 07 2022 8:25AM [facility] 0773 - MRI BREAST WO/W IVCON KAYA / PROCEDURE REASON: multiple diagnoses * * * * Physician Interpretation * * * * #[id number] - MRI BREAST WO/W IVCON KAYA BREAST MRI OF BOTH BREASTS: 10/07/2022 HISTORY: Multiple Diagnoses/ Patient at documented high risk for breast cancer, here for screening. /Right nipple discharge and right upper outer lump. RESULT: No prior exams were available for comparison. Interpretation of this MRI was correlated with available ultrasounds. MRI images were obtained with a dedicated breast coil. The patient was studied using the [place] dedicated breast coil in the Siemens 1.5 Maria Teresa scanner. Initial axial STIR imaging was carried out followed by axial T1-weighted GRE imaging both before and after IV administration of 13 ml of Dotarem. Subsequently, subtraction imaging and 3-D reconstruction were completed on an independent workstation. An additional 4 minute high resolution sequence was performed after the first two 1 minute post-contrast sequences. FINDINGS: Bilateral background breast enhancement is marked. Marked diffuse background enhancement is present bilaterally, which could obscure a small or noninvasive lesion on MRI. There is no abnormality in the right breast to correlate with the nipple discharge. There is no abnormality in the right breast to to correlate with the palpable in upper outer. Within limitation of the study, there is no suspicious mass, abnormal enhancement pattern, distortion or other significant abnormality in either breast. There are no significant abnormalities seen in the axillary nodes region or internal mammary nodes. IMPRESSION: BENIGN FINDING Marked diffuse background enhancement is present bilaterally, which could obscure a small or noninvasive lesion on MRI. No MRI evidence of malignancy in either breast. Follow-up with ACR/NCCN guidelines. Norma silver/radha:10/07/2022 08:48:25 Director Outpatient Services(s): RT Emma(R), [facility] & [facility] [place] MRI BI-RADS: 2 Benign finding Multiple national specialty organizations have released breast cancer screening guidelines for women at average risk for developing breast cancer - guidelines that are based on both evidence and opinion, yet differ on when to start and how often to screen for breast cancer. With representation from Breast Imaging, Internal Medicine, [facility], Family Medicine, and Medical/Surgical Oncology, the [facility] has carefully reviewed the data and reached the following consensus: 1) All women should engage in shared decision-making with their providers to decide when to start and how often to screen; 2) All women should have the opportunity to start screening mammography at age 40; 3) For women ages 45-55, we recommend annual screening mammograms; 4) For women ages 55 and over, we support both the transition from an annual to a biennial interval if this aligns more with patient's values and preferences, or continuation with annual screening; 5) All women should discuss with their providers when to stop screening mammograms. Meat Dresser: Radha Transcribe Date/Time: Oct 07 2022 8:12A Dictated by : NORMA HERNANDEZ MD This examination was interpreted and the report reviewed and electronically signed by: NORMA HERNANDEZ MD on Oct 07 2022 8:48AM EST [id number] Normal [facility] MRI BREAST WO/W IVCON BILATo n 10-07-2022 [facility] US BREAST LTD RTon [facility] Coding Summary.on 10-06-2022 Coding Summary. CD:[id number] Gh0bWw+PGh lYWQ+RK6NAIOlG97ikFSurV9AH6oTZ K0UAPGIVHLLVB3NDM0vhAA1WQxtO9Y ybiAv QjkewMBmOS07WVh0ITO8hGuoCHatoA 9nxQYeE8x3JkMiCS02hO68PQdxRLVq JsO8YtSrquemgAZl B0ewJhAglDWrCmw+PHRhYmxlIHdpZH CrYLveTBDvBnVfkBktDI9sPt7cHIWc LWNvbGxhcHNlOiBj l7gqQPKgRTtkAW5kiKdhD3LccZS4OO Ccb2z5Sw50vQL+WMJhZEB3mPvrGFmp b540BfAmj7yfFPO5 yFRjOMweURC3X49kt1M2EEOxRVXjYN L9sZG3lI5tcWxapfwiG5RujJXdFjK3 XQG8rFLloO0jyElf ztvvtE3xQle+T73LDB1VEBVFQC7TOl h3R6MzRfrteCE+VE77XEUrQG45vHEm wWPqe2lavSd2IpRt WZWlYOO6iHmdWQutt8PxREVuA86zgF Pyx4Q3AQXcfIsyeSQzHjDfyOV5kM1w VQxamqtru8bmgibi Zbpss5vnlk81iP00H93oWJehZAQqNU Q3QJBlFCAimMoaut3ajS5cMg6+IDxj r4etp8sgiAv4BrUi WQYszvNwvGxnWCF4w2PmFu84L5OwzG bba9TsOtm5ts49mGUjg5B7zET6SEwp PMHdaZ3nLYvkFeF0 ODWgWxVjqZ31pAVvEVnlAn9dgRjxyX nrIZ1nHJLhykqeIBMjrW3pTBVrdVQy fKkmII6nTGZhyrgs p495OlMaSRD4JVHktUIzU4GuzK3uEa JiDELsDFXpP7KttHLeMFkmU383BWfk LtJ3HGPdirAaC6Bs NFVokZyzUqW9h0L8Un2Wu7QjfdvnZW O1OXiePTItQbC3UyPpFpB0Q3PuJus6 GLXkcNkxSN9jS1Ou GGYmqwikdtivcPI6SGYyMLCexZ51vJ EnRDslNb4jd7Z5r100PQOyXLWneW31 Nj6gkSmuIMUinELR vC8gohmxr3uhtzltHbVqHDWaBGn9YK p9PGTuwZjbNyJjUYT6IkS7RNR5oVQq mR1ltEejloareV8p Oyc+G82opG8bHVQ6QWE4uiwtEJCmuk XrDZ60HZ92V0JvBjcrhJZpaZY+PGRp awDwqZkbLK0wKyVp d3dvn2TqOVqcS9GbQSGuGFnrAvo6KJ OaNCW5kZP7iQ4tMBPdAWvlj4A6mXQ2 P5QhpnOiea3wf3ml CRMsDEbxT83vqIOjq9T8GUPfzIJ5GC YriJeqCcBjaB37Uhj+USQwnPefs7Od Hptgb7rot2effHb1 SgPnPATdumZmoMxmJXB9y8MnCi35K7 3hUJxbRKTkADOzXKPhPSXemHheeb6i yQ6kCo7+PGNvbCB3 eRQ9nG2kARZqHhW3ZWdpA067TtJmmE ZjMivso1jgm2wxgTt1GoRrJQSornGy uDpyJJS4b2IdPl74 O31oPKuxSPFuRUXlOTGvWWIpbDapxf 0jdY6tVo3+JV2vu0lifm86rL61dYT+ ZXTfENV3vRmhCWja HHQueS2rPVqpUoQ2EGHnVpFmzJ68dJ HfVXmzGh2niOnsiKmmNV8cQHKxsmtn q339RyBbe9rgMMCk zGGzWPcuIIH5V82pk2B3EIIyCCUeJO N4rCU0fR0csRcqbkgieYMqdAjawyGb pCuoRKouNTijK316 EAAteGsyAgBiyEzvmrHyMdByFNr1E8 YsWgz4GRJftTzxCF3imDIcBTozNg3r jXaofFrdBD6xIATs cuwut687SrNju4ajFMVrrEKdHYtkVO V6E64pf2V9JZSmZAXxESZ3lOI3oY3t bGlnbjogbGVmdDsg xiKmzDmoUVpaYXmbI086YPBhjKbkTb KrydKqNJAnjCV2CJ67HF66lMFhq4E8 bNL3H9RhHNVwmypb rrjgnRJ4QKHtZPGudE24Et1xqFlsVp 6eWDMhJNT9WOAalFDkB3ZolM4iJlYy AEIyLZDpN4MyiKEy WYidH594CJuiUxX0VFOrrrSsN2NlBB RvsUytGaY5m6L4Yg5QL9S0AX15ZQ83 gSWqr4L2xSK5O2Ts AUZhmixltowizAT8IZPqFXYqhV01Gb 0enNymYv2mTRMfGAA9BEAnpEKeR3Xx kM4uHeAvRFYyYFIg W4OgfFChHTxiQ200LNdnBaF5EPManp MrQ6QhWLUdgHriRdW1z4P2Hk5IGCc0 BP89OL80kZAxp7X8 lLQ9J4FhSOTxdlmpcliyfMO6BEQxYJ XqvM78Qo8taGekZk9iBRKcNAX1PJPg hRUkJ4KtzL2dSvFz QOSjHVZhV9UdaYZpRMyfV015OGwqRn A9IVYrtnUeK1LoAIIqxMmhPuM7d9Y2 Zd9YALHiMF32UUR8 wLF7ZU85OZ37K8LdNhggrAXkbJJ+PH RhYmxlIHdpZHRoPScxMDAlJyBzdHls CQ5vPs8bCIZeESLz jVypqQHkPbHin5qjDFRlOIjcCM7rgR ytM0RgcVN9IILww4k8Yr01Y38kE0Wv dXA+VDWwdIG3nMA1 pL9jXgWmOgI3TYxeS099AyFncNAkHx quw7igr5gtuEq1IgM9MSMisaCavYje ECH7e4PiEl73T11r LCxfKBAxQFTrTWZfIOGwpKzhto6tmU 9wIi8+HUUwiMY1gIL9iP0uJpWaVjY6 WJuiZ365OnUknYBc Wxbfb0hdu2vzwZg2KqVaPXRniiXasD xjUZN2d0XpGn33B6OrfPwzd0TeFjx5 is27hIZnc6E9zZP7 S1FrWONdicyztDPqtFgbRR3uKMUndz ixSBXtcR7lLOAvX4s5VfQzFxZ4PBpw B1XrbrM4BOMueWNf JRxqLHZ5Q74wq0H7NDExEPNrGBP1vT E9cM3dkWvhslusaZJjtAkhnbWzgDqb OBdnRYqoA384MIMp hBokJJJvoT3yEJUkbVMszFiwLS4oIK NdzcagZadPI5mmWKcCBZWLRoVBSJ96 MT80nODnw1E7pEE1 C9FnCPHozpxqldugmYG6MSUjNYYypV 18iLVdJUbcPc2rb2Z5h093APLaJJDu kC78Bc2edMwgFMEo bPSBaL7swayuy1lruibkDwTmKJOuBU i1CNb1UYMgtZyyWtIhKBC6RdP1BCT2 jHStuY5fyFtnwqup yU2oWtb+SPQqVtaxHZg4IFwplPZ+PH LwTYT5vCutTPvbPCKdwM2zSPKaQ4z1 IyJhIpD0FIkiQ4Hd LDWcdfzkCt70aK9pTrDmLuE7GWkyR9 OidjD3PMQqiJUkZDjfXLR7K29ab7I3 KDIyDDXcWSE0zXA6 fM1yyBqlqnfkeMHgbLezmeFdvSolTG mfMLzlA862DLGzkKnsBhN8ARacHACn SN46JT29gKKnu5H9 uVV5F8BsEYYjsajwtuygdVJ9YCYbBX CqiY23lYItPXmyDm9sa5X6v098ZJDh BGMfbL80Tb4aqOfx UGRbeVMRuI4rbsvxr3ypqhmgGsKyJI NnMYn1EWq1SXTaaWmzAnHvRVR6KkK5 QSA0cOXrwV0hqLid nuctsM6uQnt+YtUaRMvyEC92AW46gD Aft1Y0lOT4K3UpDXWzujuoitubsNR5 IXAuDDKqgH39kLLu BMmqWf3qn3X7c532NWHgZZPkjZ80Km 1gfGuyEYMijGOZgR5txvvwc0pdbphx OwGcLEStKZj4YPh8 KZSupNtxBpDsUCS0BnI5WAJ0pWZfyL 5dqCnqybgaoA5oWtt+IP0kxsdlbjB9 ZX71VV40H4EnDxba dGFibGU+PHRhYmxlIHdpZHRoPScxMD UhNsRbqEtqLJ6fZs5sENMzKPAhtMzd lRDgMoAzs3iwXYRg USbqYR6anDmiP1TseNT4BJBsk8w8Hk 77H43iS9HbmTY+AYSrfNX6kJI7gD7c RyBhEuD0YJpyX034 PcDnvVFlAxqrs8nym5zhpZe1NpDfUT IprbVdkSkePYX1n5KyLw04C73qRUst ZHRoPSIyMCUiIHZh oRtbib2ycL4fAd0+UTRtaYY1aYE1nJ 8hJyOmZxA9EVpfG769TuMuhKDiOari J05xG5UvvWO+PHRy Rnf2IJMuoKymJA7zlBAfCRozEg7lSR I0ZbFcVpUnYVgbC8QnRDAvzzfoauwe lHF2JNOoOIArjY72 Hd2nsDncEy4bXODqDNK6VAZayHFuD6 ThxJ8kGeEoQKVnAQDbV4TlhAGpVVaa W425KYieSsD2UXEe qrOqJ2RgXXOeeFsnCpY5k7H1Py2VvV cddXZtPU6hUjSnKMf5P5VvTxv0SOJw oOfdLY1riVYtQHwq Xt3baKnepZexOI2yLCRrrcrkx137Hq Ilk4hiJWQylFIdBByhION0P76vd6F6 NUYsXHLiWPD5bDY5 bU0axCnpojkoiJCejKvhotHhfGhiMN xvOOdeF667FZQotFswBcYYJxr4A2Vm Wtp5MORqpNvqWC8v gWSrQSnrMf8njCpuzFnnUC0nYUSlqx ubf568JqRlg8yxQFVdcKNxTQzjNLT8 P92uq6F3ZMKhTHBn OQR3pDO5bZ6evQeoxpbrcIApoVyyba BccVlpWXxoFJygX358FJRssEusAw0B Lzy4B0BdBuu6KZZg eKnpRD7plOMtEAsqIc9zsJaebAaaLN 2nODIvrexfi411PjTul2jeASTsyEDy XZpbRCR6V23bs5S3 WGTeUVUaQIF3jXY0bH7vwAppclybkP CujTspgbDorBfqJKonYQcmU061CKUn cDsnPlBheWVyOjwv dGQ+GA72nv68F0DaWqkrXbb7IJBzER Z8bUK5jJ6eGJMdLYhmp0U5oSX0M3Qu ljVvde2yc0voVYQs ZTog (more content not included)... Normal [facility] ED Note-Physicianon 10-06-19 ED Note-Physician Basic Information Time Seen: [place] José PA-C 10/02/2022 14:00 Chief Complaint Pt. came here d/t rib pain that started week ago, nausea, vomiting, diarrhea that started today. Pt. complaints of upper abd'l /rib pain, said pain is worst today. Took ibuprofen at 0900 today and didn';t helped. History of Present Illness 26-year-old female comes to the ED for evaluation of abdominal pain. Over the last week she has had pain across the upper abdomen. She draws a hand across her upper abdomen from right to left indicate the area of discomfort. She states at times does radiate up into her throat. She had associated nausea vomiting diarrhea that started today. She has had decreased appetite but food is optically worsen her pain. She has tried ibuprofen without relief. No previous abdominal surgeries. Occasional alcohol use. Non-smoker. Review of Systems A 10 point review of systems is negative except as noted above. Medical and Surgical History: Reviewed and noted Social history: Lives at home Tobacco: Denies Physical Exam Vitals & Measurements T: 36.8 ?C(Oral) HR: 89(Peripheral) RR: 17 BP: 115/82 SpO2: 99% HT: 160 cm WT: 63 kg BMI: 24.61 Nurses notes and vital signs reviewed and patient is not hypoxic. General: The patient appears well and in no significant distress Patient is resting comfortably on the exam bed. Skin: Warm, dry, no pallor noted. Head: Atraumatic. Neck: No JVD. Eye: Normal conjunctiva. Ears, Nose, Mouth, and Throat: Moist mucous membranes Cardiovascular: Strong distal pulses. Chest wall: Respiratory: Respirations are nonlabored. Back: Normal range of motion, no CVA tenderness. Musculoskeletal: Normal ROM with no gross deformity. Gastrointestinal: Soft and nontender. Urological: Neurological: Awake and alert. No focal deficits. Follows commands. GCS 15. Psychiatric: Cooperative. Medical Decision Making Laboratory studies reviewed and noted. Patient describes upper abdominal pain with radiation to the chest consistent with gastritis/reflux. She was initially treated with GI cocktail and Zofran. She continues to have significant discomfort and was given morphine and is sent for CT of the abdomen and pelvis. This is reviewed by radiologist. She does have some free fluid raise the possibility of ovarian cyst. The patient does states she has a history ovarian cyst. However, she has no lower abdominal tenderness. She does feel improved after the morphine. She has had an EGD performed in the past but does not remember any specific results from it. Given her symptoms she will be started on omeprazole, Zofran, and is discharged home with GI follow-up. Her vomiting and pain are well controlled at time of discharge. Patient was encouraged to return to the ED if symptoms worsen or change. Assessment/Plan Abdominal pain (R10.9: Unspecified abdominal pain) Nausea and vomiting (R11.2: Nausea with vomiting, unspecified) Orders: Al hydroxide/Mg hydroxide/simethicone, 30 mL, Susp-Oral, Oral, Once, Stop date 10/02/22 14:54:00 EST, STAT, Start date 10/02/22 14:54:00 EST atropine/hyoscyamine/PB/scopol amine, 10 mL, Elixir, Oral, Once, Stop date 10/02/22 14:54:00 EST, STAT, Start date 10/02/22 14:54:00 EST lidocaine topical, 200 mg, 10 mL, Soln-Oral, Oral, Once, Stop date 10/02/22 14:54:00 EST, STAT, Start date 10/02/22 14:54:00 EST morphine, 4 mg = 2 mL, Injection, IV Push, Once, Stop date 10/02/22 16:11:00 EST, STAT, Start date 10/02/22 16:11:00 EST, 10/02/22 16:11:00 EST omeprazole, 40 mg = 1 cap(s), Oral, Daily, # 30 cap(s), Refills(s) 0, Pharmacy: [facility]/pharmacy #[id number], 160, cm, 10/02/22 14:06:00 EST, Height/Length Dosing, 63, kg, 10/02/22 14:06:00 EST, Weight Dosing ondansetron, 4 mg = 2 mL, Injection, IV Push, Once, Stop date 10/02/22 14:20:00 EST, STAT, Start date 10/02/22 14:20:00 EST, 10/02/22 14:20:00 EST ondansetron, 4 mg = 1 tab(s), Oral, TID, # 15 tab(s), Refills(s) 0, [id number], 160, cm, 10/02/22 14:06:00 EST, Height/Length Dosing, 63, kg, 10/02/22 14:06:00 EST, Weight Dosing Sodium Chloride 0.9% intravenous solution, 1,000 mL, Soln-IV, IV, Once, Stop date 10/02/22 14:20:00 EST, STAT, Start date 10/02/22 14:20:00 EST, mL/hr, Infuse over 61, minute(s) Automated Diff Basic Metabolic Panel CBC w/ Auto Diff CT Abdomen/Pelvis w/ Contrast eGFR Extra Blue Tube Extra SST Tube Hepatic Function Panel Lipase Level U Beta Hcg Qual UA With Cult Reflex Medications Administered Given Al hydroxide/Mg hydroxide/simethicone 200 mg-200 mg-20 mg/5 mL oral suspension, 30 mL, Oral Elixir, 10 mL, Oral lidocaine Viscous Top 2% Ofe 15 mL, 200 mg, Oral [id number] [F], 1000 mL, IV ondansetron 4 mg/2 mL Inj, 4 mg, IV Push Disposition Plan Patient Discharge Condition Disposition: Discharged home Condition: Improved and stable Counseled: Patient and/or family were counseled to workup, results, treatment plan and follow-up recommendations Discharge Prescription List Prescr (more content not included)... Normal [facility] Comment on above: Result Comment: Elec tronically Signed By: Arnva DOHERTY, Chapincito\.br\Date and Time Signed: 10/02/22 18:00 EST\.br\Electronically Co-Signed By: Phoenix Castro DO\.br\Date and Time Co-Signed: 10/05/22 07:01 EST Auto Diffon 10-02-2022 Basophils/100 WBC (Bld) 0.4 % Normal 0.0-2.0 [facility] Comment on above: Order Comment: Order Added by Discern Expert. Performed By: #### 2 060081, 6034535, 0269952, 0645950, 66986075, 4485631 #### [facility] [address] [place] [address] Basophils/Leukocyte s Auto (Bld) [Pure # fraction] 0.0 E9/L Normal 0.0-0.2 [facility] Comment on above: Order Comment: Order Added by Discern Expert. Performed By: #### 2 195905, 9186930, 6715115, 5530993, 24284321, 1657608 #### [facility] [address] [place] [address] 02480 Eosinophils/100 WBC (Bld) 0.7 % Normal 0.0-8.0 [facility] Comment on above: Order Comment: Order Added by Discern Expert. Performed By: #### 2 910247, 9048452, 0452775, 3198816, 44222185, 6722937 #### [facility] [address] [place] [address] Eosinophils/Leukocy k[place] Auto (Bld) [Pure # fraction] 0.0 E9/L Normal 0.0-0.5 [facility] Comment on above: Order Comment: Order Added by Discern Expert. Performed By: #### 2 062706, 6987715, 7722776, 5739419, 36321462, 0459761 #### [facility] [address] [place] [address] Lymphocytes/100 WBC (Bld) 21.1 % Normal 14.0-50.0 [facility] Comment on above: Order Comment: Order Added by Discern Expert. Performed By: #### 2 108118, 1252824, 1799725, 8834529, 42187163, 0298946 #### [facility] [address] [place] [address]54 Lymphocytes/Leukocy [place] Auto (Bld) [Pure # fraction] 1.4 E9/L Normal 1.0-4.0 [facility] Comment on above: Order Comment: Order Added by Discern Expert. Performed By: #### 2 797494, 5137670, 6618020, 8137193, 12727236, 3939080 #### [facility] [address] [place] [address] 33639 Monocytes/100 WBC (Bld) 4.9 % Normal 4.0-14.0 [facility] Comment on above: Order Comment: Order Added by Discern Expert. Performed By: #### 2 245543, 4767199, 9665602, 2630145, 20506791, 8200223 #### [facility] [address] [place] [address] 52932 Monocytes/Leukocyte s Auto (Bld) [Pure # fraction] 0.3 E9/L Normal 0.2-1.0 [facility] Comment on above: Order Comment: Order Added by Discern Expert. Performed By: #### 2 496761, 3242207, 3482011, 2218807, 47741342, 7871042 #### [facility] [address] [place] [address] 14242 Neutrophils/100 WBC (Bld) 72.9 % Normal 36.0-75.0 [facility] Comment on above: Order Comment: Order Added by Discern Expert. Performed By: #### 2 586871, 9356426, 9467448, 2284885, 02625089, 4967731 #### [facility] [address] [place] [address] 39910 Neutrophils/Leukocy k[place] Auto (Bld) [Pure # fraction] 4.8 E9/L Normal 2.0-7.5 [facility] Comment on above: Order Comment: Order Added by Discern Expert. Performed By: #### 2 176747, 5515057, 7638544, 2112189, 32737681, 7729965 #### [facility] [address] [place] [address] BMPon 10-02-2022 Creatinine [Mass/Vol] 0.6 mg/dL Normal 0.5-1.3 [facility] Comment on above: Performed By: #### 2 124661, 0285094, 7525575, 0050162, 51426834, 6677714 #### [facility] [address] [place] [address] Urea nitrogen [Mass/Vol] 11 mg/dL Normal 5-21 [facility] Comment on above: Performed By: #### 2 130210, 6498027, 2311371, 7965953, 63305984, 3531019 #### [facility] [address] [place] [address] Urea nitrogen/Creatinine [Mass ratio] 18 No Units Normal 10-20 [facility] Comment on above: Performed By: #### 2 572103, 0138468, 7780249, 0273377, 01670837, 9444842 #### [facility] [address] [place] [address] Anion gap [Moles/Vol] 13 mmol/L Normal 6-16 [facility] Comment on above: Performed By: #### 2 841317, 7476640, 2705336, 7004295, 02871570, 1009344 #### [facility] [address] [place] [address] Calcium [Mass/Vol] 9.0 mg/dL Normal 8.9-11.1 [facility] Comment on above: Performed By: #### 2 886871, 6348303, 9685565, 2956819, 62986331, 1006760 #### [facility] [address] [place] [address] Chloride [Moles/Vol] 104 mmol/L Normal 101-111 [facility] Comment on above: Performed By: #### 2 444529, 2198060, 4241711, 4334371, 65512851, 1521184 #### [facility] [address] [place] [address] CO2 [Moles/Vol] 26 mmol/L Normal 21-31 [facility] Comment on above: Performed By: #### 2 640203, 4312114, 9961566, 2433870, 35172225, 8395908 #### [facility] [address] [place] [address] Glucose [Mass/Vol] 105 mg/dL Normal 55-199 [facility] Comment on above: Result Comment: If t his glucose result represents a fasting glucose, interpretation should refer to the following reference range: 55-99 mg/dL Performed By: #### 2 745166, 8805944, 5828699, 4893022, 52065049, 9636241 #### [facility] [address] [place] [address] Potassium [Moles/Vol] 4.1 mmol/L Normal 3.5-5.3 [facility] Comment on above: Performed By: #### 2 800762, 7122765, 0145556, 5081628, 16969786, 9432813 #### [facility] [address] [place] [address] Sodium [Moles/Vol] 139 mmol/L Normal 135-145 [facility] Comment on above: Performed By: #### 2 645071, 9519203, 8791989, 5014792, 31428159, 5577269 #### [facility] [address] [place] [address] CBC w/ Auto Diffon 3 Erythrocyte distribution width (RBC) [Ratio] 12.7 % Normal 10.9-14.2 [facility] Comment on above: Performed By: #### 2 972305, 2743239, 5685517, 6869712, 02827994, 7372452 #### [facility] [address] [place] [address] Hematocrit (Bld) [Volume fraction] 41.1 % Normal 34.0-46.0 [facility] Comment on above: Performed By: #### 2 130615, 0940466, 9125443, 1319633, [id number], [id number] #### [facility] [address] [place] [address] Hemoglobin (Bld) [Mass/Vol] 13.4 g/dL Normal 12.0-16.0 [facility] Comment on above: Performed By: #### 2 249118, 2393357, 5002679, 3806928, 34918071, 1503375 #### [facility] [address] [place] [address] MCH (RBC) [Entitic mass] 28.7 pg Normal 27.0-34.0 [facility] Comment on above: Performed By: #### 2 814882, 3499218, 5746676, 2450148, 88847226, 3738294 #### [facility] [address] [place] [address] MCHC (RBC) [Mass/Vol] 32.5 g/dL Normal 31.4-36.0 [facility] Comment on above: Performed By: #### 2 077139, 1639537, 1168585, 2890385, 30361041, 4386690 #### [facility] [address] [place] [address] MCV (RBC) [Entitic vol] 88.3 fL Normal 80.0-100.0 [facility] Comment on above: Performed By: #### 2 397734, 1630776, 1736177, 1696085, 31672988, 4800933 #### [facility] [address] [place] [address] Platelet mean volume (Bld) [Entitic vol] 8.3 fL Normal 6.4-10.8 [facility] Comment on above: Performed By: #### 2 401282, 7263140, 9193897, 4041771, 35342692, 0947683 #### [facility] [address] [place] [address] Platelets (Bld) [#/Vol] 216.0 E9/L Normal 150.0-500. 0 [facility] Comment on above: Performed By: #### 2 505299, 5669250, 4264402, 8982562, 13744428, 9593768 #### [facility] [address] [place] [address] RBC (Bld) [#/Vol] 4.6 E12/L Normal 4.3-5.9 [facility] Comment on above: Performed By: #### 2 765932, 2247636, 8595525, 2076874, 36344694, 5382247 #### [facility] [address] [place] [address] WBC corrected for nucl RBC Auto (Bld) [#/Vol] 6.5 E9/L Normal 4.0-11.0 [facility] Hospital Comment on above: Performed By: #### 2 [id number], [id number], [id number], [id number], [id number], [id number] #### [facility] [address] [id number] CHEMISTRYOrdered By: SYSTEM SYSTEM on 10-02-2022 Albumin [Mass/Vol] 3.9 g/dL Normal 3.3 - 5.0 gm/dL [facility] Albumin/Globulin [Mass ratio] 1.2 {ratio} Normal 1.1 - 2.2 [facility] ALP [Catalytic activity/Vol] 60 [iU]/d Normal 21 - 98 Int._Unit/ L [facility] ALT No additional P-5'-P [Catalytic activity/Vol] 14 [iU]/d Normal 6 - 46 Int._Unit/ L [facility] Anion gap [Moles/Vol] 13 mmol/L Normal 6 - 16 mEq/L [facility] AST [Catalytic activity/Vol] 16 [iU]/d Normal 5 - 43 Int._Unit/ L [facility] Bilirubin [Mass/Vol] 1.0 mg/dL Normal 0.0 - 1.1 mg/dL [facility] Bilirubin.direct [Mass/Vol] 0.2 mg/dL Normal 0.1 - 0.4 mg/dL [facility] Bilirubin.indirect [Mass or moles/Vol] 0.8 mg/dL Normal 0.1 - 0.9 mg/dL [facility] Calcium [Mass/Vol] 9.0 mg/dL Normal 8.9 - 11. 1 mg/dL [facility] Chloride [Moles/Vol] 104 mmol/L Normal 101 - 111 mmol/L [facility] CO2 [Moles/Vol] 26 mmol/L Normal 21 - 31 mmol/L [facility] Creatinine [Mass/Vol] 0.6 mg/dL Normal 0.5 - 1.3 mg/dL [facility] GFR/1.73 sq M.predicted among blacks MDRD (S/P/Bld) [Vol rate/Area] mL/min/1.73 m2 Normal >=59mL/min /1.73 m2 [facility] S GFR/1.73 sq M.predicted among non-blacks MDRD (S/P/Bld) [Vol rate/Area] mL/min/1.73 m2 Normal >=59mL/min /1.73 m2 [facility] S Globulin (S) [Mass/Vol] 3.4 g/dL Normal 1.4 - 4.0 gm/dL [facility] Glucose [Mass/Vol] 105 mg/dL Normal 55 - 199 mg/dL [facility] Lipase [Catalytic activity/Vol] 39 U/L Normal 13 - 58 unit/L [facility] Potassium [Moles/Vol] 4.1 mmol/L Normal 3.5 - 5.3 mmol/L [facility] Protein [Mass/Vol] 7.3 g/dL Normal 6.0 - 7.8 gm/dL [facility] Sodium [Moles/Vol] 139 mmol/L Normal 135 - 145 mmol/L [facility] Urea nitrogen [Mass/Vol] 11 mg/dL Normal 5 - 21 mg/dL [facility] Urea nitrogen/Creatinine [Mass ratio] 18 mg/mg Normal 10 - [address] Abdomen/Pelvis w/ Contras ton 10-02-2022 CT Abdomen/Pelvis w/ Contrast Exam Date/Time: 10/02/2022 16:47 EST Reason for Exam: Pain Report IMPRESSION: MINIMAL AMOUNT OF FREE FLUID IN THE PELVIC CUL-DE-SAC, THIS IS NONSPECIFIC. THE FREE FLUID COULD BE PHYSIOLOGIC, COULD BE DUE TO A RUPTURED CYST, OR COULD BE DUE TO OTHER ETIOLOGY (SUCH INFLAMMATION). THE APPENDIX IS NOT SPECIFICALLY DELINEATED ON THIS STUDY. THERE ARE NONDISTENDED FLUID FILLED SMALL BOWEL LOOPS IN THE RIGHT LOWER QUADRANT ADJACENT TO AND ABUTTING THE CECUM. NO CT EVIDENCE OF ACUTE APPENDICITIS IS EVIDENT. IF THERE IS CLINICAL CONCERN FOR APPENDICITIS, THEN FURTHER CLINICAL EVALUATION AND FOLLOW-UP WOULD BE RECOMMENDED. CLINICAL HISTORY: Pain. COMPARISON: 06/20/2020. COMMENT: Images were obtained following the administration of Intravenous contrast. The liver, spleen, pancreas, gallbladder, and adrenal glands appear normal. There is a 0.4 cm nonobstructing calculus in the inferior left kidney. The kidneys are otherwise unremarkable in appearance. No ureteral calculus is noted. There is duplication of the right renal collecting system. The renal collecting systems are not dilated. No retroperitoneal lymphadenopathy is evident. The abdominal aorta is normal. No aneurysm is noted. Evaluation of bowel is limited. The bowel loops are not dilated, and there is no evidence of bowel obstruction. There are nondistended small bowel loops, including small bowel loops in the right lower quadrant adjacent to and abutting the cecum. The appendix is not specifically identified, but no CT evidence of acute appendicitis is noted. Fecal material in the colon limits evaluation. There is no evidence of diverticulitis. No abdominal inflammatory complex nor free air is noted. The uterus is anteverted. There are small follicular ovarian cysts. There is a minimal amount of free fluid in the pelvic cul-de-sac. The urinary bladder is unremarkable. No pelvic lymphadenopathy is evident. Visualized bony structures are unremarkable. All CT scans at this facility use dose modulation, iterative reconstruction, and/or weight based dosing when appropriate to reduce radiation dose to as low as reasonably achievable. Report Ordering Provider: Chapincito José FINAL REPORT Dictated: 10/02/2022 5:06 pm Dre Carvajal M.D. Signed (Electronic Signature): 10/02/2022 5:06 pm Signed by: Dre Carvajal M.D. Transcribed by: SEBASTIAN Technologist: LUIS MIGUEL Technical Comments GFR (mL/min/1/73m2) age Contrast: Isovue 300 Contrast amount in ml's: 100 Rectal Contrast Given? No Normal [facility] Consent for Treatmenton Consent for Treatment [id number]:127 Normal [facility] Discharge Instructionson Discharge Instructions [id number]:127 Normal [facility] ED Clinical Summaryon 2022 ED Clinical Summary (Inserted Image. Nikki ble to display) [place] [id number] ED Clinical Summary Person Information Name: FERNANDA CHA [facility] Age: 26 Years : 1995 Sex: Female Language: Cook Islander PCP: Maryann Rashid CNP Marital Status: Single Visit Id: Visit Reason: Rib/trunk pain-swelling; Abdominal pain; Vomiting; Nausea; SEVERE RIB PAIN Speciality: Acuity: 3 Enc Type: Emergency Med Service: Emergency Arrival: 10/02/2022 13:54:25 Discharge: 10/02/2022 18:25:31 LOS: 000 04:31 Checkin: 10/02/2022 13:54:25 Checkout: 10/02/2022 18:25:31 Dispo Type: Home (Routine DC) EVENTS: Event Name Event Status Request Date/Time Start Date/Time Complete Date/Time Arrive Complete 10/02/2022 13:54:25 10/02/2022 13:54:25 10/02/2022 13:54:25 Document Home Meds Request 10/02/2022 13:54:25 Triage Complete 10/02/2022 13:54:25 10/02/2022 14:06:21 10/02/2022 14:06:21 Bed Assign Complete 10/02/2022 13:59:24 10/02/2022 13:59:24 10/02/2022 13:59:24 Dr Exam Complete 10/02/2022 13:59:24 10/02/2022 14:00:58 10/02/2022 14:00:58 RN Exam Complete 10/02/2022 13:59:24 10/02/2022 14:34:27 10/02/2022 14:34:27 Registration Complete 10/02/2022 14:00:58 10/02/2022 14:18:26 10/02/2022 14:18:26 Dr Exam Complete 10/02/2022 14:03:01 10/02/2022 14:03:01 10/02/2022 14:03:01 Pending Labs Complete 10/02/2022 14:12:48 10/02/2022 14:36:57 Lab Complete 10/02/2022 14:12:48 10/02/2022 14:36:57 Urine Collect Complete 10/02/2022 14:12:48 10/02/2022 14:36:57 Reg Complete Request 10/02/2022 14:18:26 Reg Bed Request Complete 10/02/2022 14:18:26 10/02/2022 14:18:26 10/02/2022 14:18:26 Meds Admin Complete 10/02/2022 14:20:20 10/02/2022 14:30:25 Pending Labs Complete 10/02/2022 14:20:20 10/02/2022 14:51:08 Lab Complete 10/02/2022 14:20:20 10/02/2022 14:51:08 Pending Labs Complete 10/02/2022 14:27:55 10/02/2022 14:27:55 10/02/2022 14:51:10 Lab Complete 10/02/2022 14:27:55 10/02/2022 14:27:55 10/02/2022 14:51:10 Pending Labs Complete 10/02/2022 14:34:43 10/02/2022 14:34:43 10/02/2022 14:34:50 Lab Complete 10/02/2022 14:34:43 10/02/2022 14:34:43 10/02/2022 14:34:50 Meds Admin Complete 10/02/2022 14:55:06 10/02/2022 15:00:54 CT Complete 10/02/2022 15:15:43 10/02/2022 16:16:44 10/02/2022 16:47:24 Meds Admin Complete 10/02/2022 16:12:02 10/02/2022 16:20:05 Pending Labs Complete 10/02/2022 17:05:07 10/02/2022 17:05:07 10/02/2022 17:05:08 Discharge Complete 10/02/2022 17:59:26 10/02/2022 18:25:36 10/02/2022 18:25:36 Transfer Complete 10/02/2022 18:25:36 10/02/2022 18:25:36 10/02/2022 18:25:36 ADDRESS: [address] [place] [address] [facility] [id number] PHYS DOC NOTES: MEDICAL INFORMATION: Prescriptions Given: New Medications [id number], [address], [place] [id number], [phone] omeprazole (omeprazole 40 mg Cap-DR) 1 Capsules By Mouth every day. Refills: 0. ondansetron (Zofran ODT 4 mg Tab-Dis) 1 Tablets By Mouth 3 times a day. Refills: 0. Medications to Continue with No Changes Other Medications ergocalciferol (Vitamin D 50,000 intl units (1.25 mg) oral capsule) 1 Capsules By Mouth every week. Refills: 11. ethinyl estradiol-norethindrone (Lo Loestrin Fe oral tablet) TAKE ONE TAB BY MOUTH PER DAY .. naproxen (Naprosyn 500 mg Tab) 1 Tablets By Mouth 2 times a day as needed for pain. Refills: 0. PATIENT EDUCATION INFORMATION: Instructions: Gastritis, Adult Follow up: With: Address: When: [facility]. [address] [place], [place] [id number] Business (1) In 3 days 10/05/2022 With: Address: When: Maryann Rashid In 3 days 10/05/2022 DIAGNOSIS: Abdominal pain; Nausea and vomiting Normal [facility] ED Patient Education Noteon 10-02-2022 ED Patient Education Note Gastroenterology Gastritis, Adult Gastritis is inflammation of the stomach. There are two kinds of gastritis: ? Acute gastritis. This kind develops suddenly. ? Chronic gastritis. This kind is much more common and lasts for a long time. Gastritis happens when the lining of the stomach becomes weak or gets damaged. Without treatment, gastritis can lead to stomach bleeding and ulcers. What are the causes? This condition may be caused by: ? An infection. ? Drinking too much alcohol. ? Certain medicines. These include steroids, antibiotics, and some armq-jac-gqhtkbz medicines, such as aspirin or ibuprofen. ? Having too much acid in the stomach. ? A disease of the intestines or stomach. ? Stress. ? An allergic reaction. ? Crohn's disease. ? Some cancer treatments (radiation). Sometimes the cause of this condition is not known. What are the signs or symptoms? Symptoms of this condition include: ? Pain or a burning sensation in the upper abdomen. ? Nausea. ? Vomiting. ? An uncomfortable feeling of fullness after eating. ? Weight loss. ? Bad breath. ? Blood in your vomit or stools. In some cases, there are no symptoms. How is this diagnosed? This condition may be diagnosed with: ? Your medical history and a description of your symptoms. ? A physical exam. ? Tests. These can include: ? Blood tests. ? Stool tests. ? A test in which a thin, flexible instrument with a light and a camera is passed down the esophagus and into the stomach (upper endoscopy). ? A test in which a sample of tissue is taken for testing (biopsy). How is this treated? This condition may be treated with medicines. The medicines that are used vary depending on the cause of the gastritis: ? If the condition is caused by a bacterial infection, you may be given antibiotic medicines. ? If the condition is caused by too much acid in the stomach, you may be given medicines called H2 blockers, proton pump inhibitors, or antacids. Treatment may also involve stopping the use of certain medicines, such as aspirin, ibuprofen, or other NSAIDs. Follow these instructions at home: Medicines ? Take ynbs-fpf-fahxnhe and prescription medicines only as told by your health care provider. ? If you were prescribed an antibiotic medicine, take it as told by your health care provider. Do not stop taking the antibiotic even if you start to feel better. Eating and drinking ? Eat small, frequent meals instead of large meals. ? Avoid foods and drinks that make your symptoms worse. ? Drink enough fluid to keep your urine pale yellow. Alcohol use ? Do not drink alcohol if: ? Your health care provider tells you not to drink. ? You are , may be , or are planning to become . ? If you drink alcohol: ? Limit your use to: ? 0?1 drink a day for women. ? 0?2 drinks a day for men. ? Be aware of how much alcohol is in your drink. In the [place] one drink equals one 12 oz bottle of beer (355 mL), one 5 oz glass of wine (148 mL), or one 1? oz glass of hard liquor (44 mL). General instructions ? Talk with your health care provider about ways to manage stress, such as getting regular exercise or practicing deep breathing, meditation, or yoga. ? Do not use any products that contain nicotine or tobacco, such as cigarettes and e-cigarettes. If you need help quitting, ask your health care provider. ? Keep all follow-up visits as told by your health care provider. This is important. Contact a health care provider if: ? Your symptoms get worse. ? Your symptoms return after treatment. Get help right away if: ? You vomit blood or material that looks like coffee grounds. ? You have black or dark red stools. ? You are unable to keep fluids down. ? Your abdominal pain gets worse. ? You have a fever. ? You do not feel better after one week. Summary ? Gastritis is inflammation of the lining of the stomach that can occur suddenly (acute) or develop slowly over time (chronic). ? This condition is diagnosed with a medical history, a physical exam, or tests. ? This condition may be treated with medicines to treat infection or medicines to reduce the amount of acid in your stomach. ? Follow your health care provider's instructions about taking medicines, making changes to your diet, and knowing when to call for help. This information is not intended to replace advice given to you by your health care provider. Make sure you discuss any questions you have with your health care provider. Document Released: 07/13/2002 Document Revised: 12/06/2018 Document Reviewed: 12/06/2018 Elsevier Patient Education ? 2020 [employer] Normal [facility] ED Patient Summaryon 023 ED Patient Summary (Inserted Image. Nikki ble to display) [place] [id number] Patient Discharge Instructions Person Information Name: FERNANDA CHA Age: 26 Years Arrival Date: 10/02/2022 13:54:25 Discharge Diagnosis: Abdominal pain; Nausea and vomiting Primary Care Physician: Maryann Rashid CNP Provider Information Primary Provider: Phoenix Castro DO Advanced Bar Assistant:Chapincito José PA-C The exam and treatment you received in the Emergency Department were for an urgent problem and are not intended as complete care. It is important that you follow up with a doctor, nurse practitioner, or physician?s credit assistant for ongoing care. If your symptoms become worse or you do not improve as expected and you are unable to reach your usual health care provider, you should return to the Emergency Department. We are available 24 hours a day. FERNANDA CHA has been given the following list of patient education materials, prescriptions and follow-up instructions: Follow-up Instructions: With: Address: When: Malcolm [facility] [address] [place] [address]. [address] [place], [place] [id number] [facility] In 3 days 10/05/2022 With: Address: When: Maryann Rashid In 3 days 10/05/2022 In the event that this physician does not participate in your insurance network, please consult with your insurance company to find a nearby participating provider. Patient Education Materials: Gastritis, Adult A MESSAGE TO ALL PATIENTS REGARDING OPIOIDS PRESCRIPTION OPIOIDS: WHAT YOU NEED TO KNOW Prescription opioids can be used to help relieve knlfxqxo-ag-uwfcbh pain and are often prescribed following a surgery or injury, or for certain health conditions. These medications can be an important part of the treatment but also come with serious risks. It is important to work with your healthcare provider to make sure you are getting the safest, most effective care. WHAT ARE THE RISKS AND SIDE EFFECTS OF OPIOID USE? Prescription opioids carry serious risks of addiction and overdose, especially with prolonged use. An opioid overdose, often marked by slowed breathing, can cause sudden . The use of prescription opioids can have a number of side effects as well, even when taken as directed: ? Tolerance?meaning you might need to take more of the medication for the same pain relief ? Physical dependence?meaning you have symptoms of withdrawal when a medication is stopped ? Increased sensitivity to pain ? Constipation ? Nausea, vomiting, and dry mouth ? Sleepiness and dizziness ? Confusion ? Depression ? Low levels of testosterone that can result in lower sex drive, energy, and strength ? Itching and sweating RISKS ARE GREATER WITH: ? History of drug misuse, substance use disorder, or overdose ? Mental health conditions (such as depression or anxiety) ? Sleep apnea ? Older age (65 years and older) ? Avoid alcohol while taking prescription opioids. Also, unless specifically advised by your health care provider, medications to avoid include: ? Benzodiazepines (such as Xanax or Valium) ? Muscle relaxants (such as Soma or Flexeril) ? Hypnotics (such as Ambien or Lunesta) ? Other prescription opioids KNOW YOUR OPTIONS Talk to your health care provider about ways to manage your pain that don?t involve prescription opioids. Some of these options may actually work better and have fewer risks and side effects. Options may include: ? Pain relievers such as acetaminophen, ibuprofen, and naproxen ? Some medication that are also used for depression or seizures ? Physical therapy and exercise ? Cognitive behavioral therapy, a psychological, goal-directed approach, in which patients learn how to modify physical, behavioral, and emotional triggers of pain and stress. IF YOU ARE PRESCRIBED OPIOIDS FOR PAIN: ? Never take opioids in greater amounts or more often than prescribed. ? Follow up with your primary health care provider. o Work together to create a plan on how to manage your pain. o Talk about ways to help manage your pain that don?t involve prescription opioids. o Talk about any and all concerns and side effects. ? Help prevent misuse and abuse o Never sell or share prescription opioids. o Never use another person?s prescription opioids. ? Store prescription opioids in a secure place and out of reach of others (this may include visitors, children, friends, and family). ? Safely dispose of unused prescription opioids: Find your community drug take-back program or your pharmacy mail-back program, or flush them down the toilet, following guidance from the Food and Drug Administration (www.fda.gov/Drugs/ResourcesFo rYou). ? Visit www.cdc.gov/drugoverdose to learn about the risks of opioids abuse and overdose. ? If you believe you may be struggling with addiction, tell your health resident care assistant and ask for guidance o (more content not included)... Normal [facility] HEMATOLOGYOrdered By: SYSTEM SYSTEM on 10-02-2022 Basophils/100 WBC (Bld) 0.4 % Normal 0.0 - 2.0 % [facility] HemeAutoSS Basophils/Leukocyte s Auto (Bld) [Pure # fraction] 0.0 E9/L Normal 0.0 - 0.2 E9/L [facility]eAutoSS Eosinophils/100 WBC (Bld) 0.7 % Normal 0.0 - 8.0 % [facility]eAutoSS Eosinophils/Leukocy k[place] Auto (Bld) [Pure # fraction] 0.0 E9/L Normal 0.0 - 0.5 E9/L [facility]AutoSS Lymphocytes/100 WBC (Bld) 21.1 % Normal 14.0 - 50.0 % [facility]eAutoSS Lymphocytes/Leukocy [place] Auto (Bld) [Pure # fraction] 1.4 E9/L Normal 1.0 - 4.0 E9/L [facility]eAutoSS Monocytes/100 WBC (Bld) 4.9 % Normal 4.0 - 14.0 % [facility]eAutoSS Monocytes/Leukocyte s Auto (Bld) [Pure # fraction] 0.3 E9/L Normal 0.2 - 1.0 E9/L [facility]eAutoSS Neutrophils/100 WBC (Bld) 72.9 % Normal 36.0 - 75.0 % [facility]eAutoSS Neutrophils/Leukocy [place] Auto (Bld) [Pure # fraction] 4.8 E9/L Normal 2.0 - 7.5 E9/L [facility] HEMATOLOGYOrdered By: Nirav Call on 10-02-2022 Erythrocyte distribution width (RBC) [Ratio] 12.7 % Normal 10.9 - 14.2 % [facility] Hematocrit (Bld) [Volume fraction] 41.1 % Normal 34.0 - 46.0 % [facility] Hemoglobin (Bld) [Mass/Vol] 13.4 g/dL Normal 12.0 - 16.0 gm/dL [facility] MCH (RBC) [Entitic mass] 28.7 pg Normal 27.0 - 34.0 pg [facility] MCHC (RBC) [Mass/Vol] 32.5 g/dL Normal 31.4 - 36.0 gm/dL [facility]Auto[facility] MCV (RBC) [Entitic vol] 88.3 fL Normal 80.0 - 100.0 fL [facility] Platelet mean volume (Bld) [Entitic vol] 8.3 fL Normal 6.4 - 10.8 fL [facility] Platelets (Bld) [#/Vol] 216.0 E9/L Normal 150.0 - 500.0 E9/L [facility] RBC (Bld) [#/Vol] 4.6 E12/L Normal 4.3 - 5.9 E12/L [facility] WBC corrected for nucl RBC Auto (Bld) [#/Vol] 6.5 E9/L Normal 4.0 - 11.0 E9/L [facility] Hep Func Panelon 10-02-2022 Albumin [Mass/Vol] 3.9 g/dL Normal 3.3-5.0 [facility] Comment on above: Performed By: #### 2 330336, 0573563, 3076415, 0588317, [id number], 2829370 ####[facility] [address] [place] [address] Albumin/Globulin (S) [Mass conc ratio] 1.2 Normal 1.1-2.2 [facility] Comment on above: Performed By: #### 2 188380, 5694093, 3885116, 3736143, 13951434, 7961353 ####[facility] [address] [place] [address] ALP [Catalytic activity/Vol] 60 Int._Unit/L Normal 21-98 [facility] Comment on above: Performed By: #### 2 050281, 2664575, 3602350, 3095409, 24441074, 1632643 ####[facility] [address] [place] [address] ALT No additional P-5'-P [Catalytic activity/Vol] 14 Int._Unit/L Normal 6-46 [facility] Comment on above: Performed By: #### 2 369337, 1380120, 2230949, 1213515, 22016508, 5457645 ####[facility] [address] [place] [address] AST [Catalytic activity/Vol] 16 Int._Unit/L Normal 5-43 [facility] Comment on above: Performed By: #### 2 135148, 9280653, 8093360, 6260489, 35950884, 4212067 ####[address] [place] [address] Bilirubin [Mass/Vol] 1.0 mg/dL Normal 0.0-1.1 [facility] Comment on above: Performed By: #### 2 860163, 7943693, 0430578, 3758021, 63775163, 0416142 ####[address] [address] Bilirubin.direct [Mass/Vol] 0.2 mg/dL Normal 0.1-0.4 [facility] Comment on above: Performed By: #### 2 651895, 2759921, 1389606, 8809726, 10102649, 7197946 ####[address] [address] Bilirubin.indirect [Mass or moles/Vol] 0.8 mg/dL Normal 0.1-0.9 [facility] Comment on above: Performed By: #### 2 027803, 1084804, 0414216, 8652439, 56102756, 2870752 ####[address] [address] Globulin (S) [Mass/Vol] 3.4 g/dL Normal 1.4-4.0 [facility] Comment on above: Performed By: #### 2 248770, 4271012, 6262692, 2809636, 12685831, 9435910 ####[address] [address] Protein [Mass/Vol] 7.3 g/dL Normal 6.0-7.8 [facility] Comment on above: Performed By: #### 2 352624, 7310791, 5351787, 2855510, 63320562, 3586568 ####[address] [address] Lipase Levelon 10-02-2022 Lipase [Catalytic activity/Vol] 39 U/L Normal 13-58 [facility] Comment on above: Performed By: #### 2 078993, 2919773, 5297377, 1745176, 30694138, 7926057 #### [facility] [address] [place] [address] [place] [id number] SEROLOGYOrdered By: Michelle Stafford on 10-02-2022 HCG.beta subunit (U) [Moles/Vol] Negative Normal [facility] Man Sero U BetaHcg Qualon 10-02-2022 HCG.beta subunit (U) [Moles/Vol] Negative Normal [facility] Comment on above: Performed By: #### 2 5483373, [id number] ####[place] [address] [place] [id number] UA With Cult Reflexon 2022 Bacteria LM Ql (Urine sed) 1+ /HPF Abnormal Trace [facility] Comment on above: Performed By: #### 2 7129148, [id number] ####[place] [address] Bilirubin Ql (U) Negative Normal Negative [facility] Comment on above: Performed By: #### 2 1588700, 22454686 ####[place] [address] Clarity (U) SL CLOUDY Abnormal Clear [facility] Comment on above: Performed By: #### 2 3653263, [id number] ####[place] [address] Color (U) YELLOW Normal Yellow [facility] Comment on above: Performed By: #### 2 4996720, 04904564 ####[address] [place] [address] Crystals LM Ql (Urine sed) Present Normal [facility] Comment on above: Performed By: #### 2 [id number], [id number] ####[address] [address] Epithelial cells.squamous LM.HPF (Urine sed) [#/Area] 3-4 Normal 0-2 [facility] Comment on above: Performed By: #### 2 7406144, [id number] ####[facility] [address] [place] [address] Glucose Test strip (U) [Mass/Vol] Negative Normal Negative [facility] Comment on above: Performed By: #### 2 7430213, 16386040 ####[facility] [facility] [address] [place] [address] Hemoglobin Ql (U) TRACE Abnormal Negative [facility] Comment on above: Performed By: #### 2 [id number], [id number] ####[address] [address] Ketones (U) [Mass/Vol] Negative Normal Negative [facility] Comment on above: Performed By: #### 2 [id number], [id number] ####[address] [address] Funkley.plasma/Lith ium.RBC (Bld) [Mass ratio] 0-3 Normal 0-3 [facility] Comment on above: Performed By: #### 2 [id number], [id number] ####[facility] [address] [place] [address] Nitrite Ql (U) Negative Normal Negative [facility] Comment on above: Performed By: #### 2 [id number], [id number] ####[address] [address] pH (U) 8.0 [pH] Invalid Interpretation Code 5.0-9.0 [facility] Comment on above: Performed By: #### 2 [id number], [id number] ####[facility] [address] [place] [address] Protein (U) [Mass/Vol] Negative Normal Negative [facility] Comment on above: Performed By: #### 2 [id number], [id number] ####[address] [address] Specific gravity (U) [Rel density] 1.020 Invalid Interpretation Code 1.005-1.03 0 [facility] Comment on above: Performed By: #### 2 [id number], [id number] ####[place] [address] Type of Urine collection method Clean Catch Normal [facility] Comment on above: Performed By: #### 2 [id number], [id number] ####[place] [address] Urobilinogen Qn (U) 0.2 {Lorie'U}/dL Normal 0.0-1.0 [facility] Comment on above: Performed By: #### 2 [id number], [id number] ####[place] [address] WBC Auto Ql (U) Negative Normal Negative [facility] Comment on above: Performed By: #### 2 [id number], [id number] ####[place] [address] WBC LM.HPF (Urine sed) [#/Area] 0-5 Normal 0-5 [facility] Comment on above: Performed By: #### 2 [id number], [id number] ####[place] [address] URINALYSISOrdered By: Shaan Kamara on 10-02-2022 Bacteria LM Ql (Urine sed) 1+ /HPF Invalid Interpretation Code Trace/HPF [facility] SS Bilirubin Ql (U) Negative (10/02/22 2:14 PM) Normal Negative [facility] Auto SS Clarity (U) Slightly Cloudy *ABN* (10/02/22 2:14 PM) Invalid Interpretation Code Clear [facility] Auto SS Color (U) Yellow (10/02/22 2:14 PM) Normal Yellow [facility] Auto SS Crystals LM Ql (Urine sed) Present (10/02/22 2:14 PM) Normal [facility] Auto SS Epithelial cells.squamous LM.HPF (Urine sed) [#/Area] 3-4 /HPF Normal 0-2/HPF [facility]A Auto SS Glucose Test strip (U) [Mass/Vol] Negative (3/3/23 2:14 PM) Normal Negative [facility] Auto SS Hemoglobin Ql (U) Trace *ABN* (10/02/22 2:14 PM) Invalid Interpretation Code Negative [facility]A Auto SS Ketones (U) [Mass/Vol] Negative (10/02/22 2:14 PM) Normal Negative [facility] UA Auto SS Funk[place].plasma/Lith ium.RBC (Bld) [Mass ratio] 0-3 /HPF Normal 0-3/HPF [facility]A Auto SS Nitrite Ql (U) Negative (10/02/22 2:14 PM) Normal Negative [facility]A Auto SS pH (U) 8.0 *NA* (10/02/22 2:14 PM) Invalid Interpretation Code 5.0 - 9.0 [facility] UA Auto SS Protein (U) [Mass/Vol] Negative (10/02/22 2:14 PM) Normal Negative [facility] UA Auto SS Specific gravity (U) [Rel density] 1.020 *NA* (10/02/22 2:14 PM) Invalid Interpretation Code 1.005 - 1.030 [facility] UA Auto SS UA Spec Desc Clean Catch (10/02/22 2:14 PM) Normal [facility]A Auto SS Urobilinogen Qn (U) 0.8050902 {Lorie'U}/dL Normal 0.0 - 1.0 EU/dL [facility] UA Auto SS WBC Auto Ql (U) Negative (10/02/22 2:14 PM) Normal Negative [facility] UA Auto SS WBC LM.HPF (Urine sed) [#/Area] 0-5 /HPF Normal 0-5/HPF [facility] UA Auto SS eGFRon 10-02-2022 GFR/1.73 sq M.predicted among blacks MDRD (S/P/Bld) [Vol rate/Area] mL/min/{1.73_m2} Normal >=59 [facility] Comment on above: Order Comment: Order added by Discern Expert. Result Comment: eGFR is race adjusted. AA=. Performed By: #### 2 [id number], [id number], [id number], [id number], [id number], [id number] ####[facility] [address] [place] [address] GFR/1.73 sq M.predicted among non-blacks MDRD (S/P/Bld) [Vol rate/Area] mL/min/{1.73_m2} Normal >=59 [facility] Comment on above: Order Comment: Order added by Discern Expert. 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 Kidney failure is indicated at less than 15 mL/min/1.73m2. Performed By: #### 2 [id number], [id number], [id number], [id number], [id number], [id number] ####[facility] [address] [place] [address] Consultation Noteon 09-14-19 Consultation Note [id number]:[id number] Normal [facility] CNOVon 08-25-2022 CNOV Office Visit (GENSF) FERNANDA CHA ([id number]) 1995 F Date Time Provider Department 08/25/22 2:00 PM FERNANDA BUTLER During your visit today, we recorded the following information about you: Weight Height 64.9 kg 1.6 m Fernanda Butler DO 08/25/2022 4:56 PM Signed NEW BREAST CONSULTATION SERVICE DATE: 08/24/2022 Consultation requested by Marie So for an opinion regarding Fernanda Cha. REASON FOR TODAY'S VISIT: Patient presents with: Breast Problem HISTORY AND CHIEF COMPLAINT: Fernanda Cha is a 26 year old female who presents with her boyfriend Jose Luis to the [facility] for an opinion regarding right nipple discharge and possible right breast mass. She has history of right nipple discharge in 2020, workup included MMG, US, MRI, and she underwent right duct excision. She recalls hearing papilloma as diagnosis. She noticed 5 months ago a feeling of fullness in her right breast with subsequent nipple discharge, leading to a feeling of letdown , as she did when she was previously years ago. She feels uncomfortable in a bra, but also not supported without one. Right nipple discharge is primarily spontaneous, thick olive oil color (brown/yellow/orange), may have been darker when it first started. Right breast discomfort is not cyclical in nature. She started on OCPs 6 weeks ago. Her mother was diagnosed at age 28 with breast cancer, not had genetic testing, is currently age 53. Fernanda edmondson BREAST HISTORY Her past breast history (prior to this encounter) is as follows: Breast Biopsies: negative for malignancy for duct excisional Breast Surgeries: Right duct excision 10/2020 Gynecologic History: Menarche 11, Menopause n/a, , prior hormonal contraception - currently on oral contraceptives x 6 weeks Smoker: no As part of today's visit, I have reviewed and updated as necessary: Current medication list, Past Medical History, Past Surgical History, Allergies, Family History, Social History, and OBGYN History FAMILY HISTORY: The patient is not of Ashkenazic Ancestry Breast cancer: Mother - diagnosed in her 20s Colon cancer:Maternal Uncle Uterine cancer: maternal grandmother REVIEW OF SYSTEMS: GENERAL: No weight loss, malaise or fevers HEENT: No changes in hearing or vision, no nose bleeds or other nasal problems, Head Positive for headache RESPIRATORY: Negative for cough, hemoptysis, wheezing, COPD, dyspnea or shortness of breath CARDIOVASCULAR: Negative for chest pain, leg swelling, hypertension, CHF or palpitations GASTROINTESTINAL: No nausea, vomiting, or diarrhea and No heartburn or reflux symptoms GENITOURINARY: Positive for frequency received bladder installations for interstitial cystitis GYNECOLOGICAL: Negative for abnormal vaginal bleeding, abnormal vaginal discharge MUSCULOSKELETAL: Negative for joint pain or swelling, back pain or muscle pain INTEGUMENTARY:Denies Scleroderma or Lupus. Denies chronic skin conditions. PSYCHOLOGICAL: Negative for sleep disturbance, mood disorder and recent psychosocial stressors. All other reviewed and negative other than HPI. I reviewed the PMH, PSH, FHx, SHx, OBHx, and agree with the above. I reviewed the HPI and ROS in detail with the Patient and edited as above. PHYSICAL EXAM: Ht 160 cm (5' 3 ) Wt 64.9 kg (143 lb) BMI 25.33 kg/m? ECOG PERFORMANCE STATUS: 0- Fully active, able to carry on all pre-disease performance w/o restriction. Physical Exam: Constitutional: well nourished, no distress, appears stated age HEENT: PERRL, conjunctiva/corneas clear, EOM's grossly intact Respiratory: respirations unlabored Cardiovascular: Regular rate GI: Soft Musculoskeletal: Extremities normal, normal gait. Normal range of motion of bilateral upper extremities Skin: Skin color normal, warm, dry, no rashes Neurologic: alert and oriented, follows simple/complex commands Psych: mood and affect normal and appropriate Lymphatics: no evidence of palpable cervical, supraclavicular or axillary adenopathy Breast: Breasts were examined in both the seated and supine positions. Nipples are everted bilaterally without evidence of discharge or nipple retraction. Symmetric B cup breasts with mild skin laxity; fairly symmetric dense fibroglandular tissue bilaterally, predominantly UOQs, possible bilateral cyst vs mass in UOQ vs dense breast tissue; well healed right superolateral periareolar scar with mild tissue loss beneath; RADIOGRAPHIC FINDINGS: The patient's ultrasound was reviewed. I have independently and personally reviewed the patient's breast imaging, specifically ultrasound images noted below. 08/10/2022 - right breast US PATHOLOGY RESULTS: previous pathology report unavailable (2020) IMPRESSION : Fernanda Cha is a 26 year old female with a right Nipple Dischar (more content not included)... Normal [facility] General Surgery Office/Clini c Noteon 08-17-2022 General Surgery Office/Clinic Note Chief Complaint follow up w/ US HPI Staff Fernanda is a 26 y.o. female here for follow up to right breast pain. She continues with nipple discharge and new lump right breast. She is having a lot of pain. At time she states her right breast feels hot. US right breast done 08/10/2022. History of Present Illness Fernanda is a 26-year-old female who is known to our service, where she was initially seen for right breast discharge. Work-up ruled out malignancy. She did undergo surgery with us for duct excision on 11/01/2020. Final pathology from this revealed breast parenchyma with chronic inflammation duct, fibrocystic change, fat necrosis, and usual ductal hyperplasia without atypia at that time. Her postoperative course was complicated by brown discharge, for which she was seen in the emergency room on 11/16/2020. She was found to have an abscess that had formed at her operative site. She was then managed in our wound clinic where the wound eventually healed. She was seen by her PCP on 08/05/2022, where she had complained of a right breast lump that had gradually gotten larger over the previous 3 months and has reported black discharge from the nipple at times with crusting at times. The breast metcalf a lot and is tender. There is no issue with her left breast per report from her PCP, Maryann Rashid CNP. An ultrasound of the right breast was obtained, which showed BI-RADS 2 findings in the 10 o'clock area where no focal mass or suspicious lesion was noted. Ultrasound appearance in this general area suggested dense fibroglandular tissue. Per the ultrasound report, posterior to the nipple, there is a 5 mm cyst. No dilated or abnormal retrograde tissue were identified on this examination. The patient states that she has been having burning pain with darkish brown nipple discharge, which she describes to be as the texture of olive oil. It is on her right breast only. She has had no issues with her left breast. Review of Systems PHQ Score Initial Depression Screen Score: 0 Constitutional: no fever, no sweats, no weight loss. Eyes: no glasses, no blurred vision, no visual loss. ENMT: no dentures, no hoarseness, no swallowing difficulties, no hearing loss, no ear infection (s), no nose bleeds. Cardiovascular: normal blood pressure, no chest pain, regular heartbeat, no heart murmur. Respiratory: no shortness of breath, no cough, no asthma, no wheezing. Gastrointestinal: no nausea, no vomiting, no diarrhea, no constipation, no blood in stool, no change in bowel habits, no abdominal pain, no hepatitis. Genitourinary: no kidney stones, no urine infection, no difficulty passing urine. Musculoskeletal: no pain, no weakness. Skin: no changing moles, no rash. Neurologic: no seizures, no epilepsy, no headache. Psychiatric: no emotional, no psychiatric problem. Endocrine: no thyroid, no diabetes. Heme/Lymph: no bleeding problems, no anemia, no blood clots, no transfusions. Allergy/Immunologic: no swollen lymph nodes/glands, no IV drug abuse. Other: Additional ROS info: Except as noted in the above Review of Systems and in the History of Present Illness, all other systems have been reviewed and are negative or noncontributory. Physical Exam Vitals & Measurements HR: 66(Peripheral) BP: 115/60 SpO2: 99% HT: 63 in HT: 160 cm WT: 65 kg WT: 143 lb BMI: 25.39 General: No acute distress Eyes: normal conjunctiva, sclera clear, no scleral icterus, EOM intact, PERRLA. Neck: trachea midline Respiratory: Respirations non labored. Cardiovascular: regular rate and rhythm, Gastrointestinal: soft, non distended, no tenderness, no hepatosplenomegaly. Musculoskeletal: normal gait, digits and nails without infection, nodes, cyanosis, clubbing. Breast: She has a well healed periareolar scar on the right side. There is what feels like either an old surgical cavity that I can palpate or just fibroglandular breast tissue, but no nipple discharge is able to be expressed on physical examination. There is no adenopathy in the right axilla. Left breast exam and left axillary exam are normal. Psychiatric/Neuro: oriented to time, place, person, judgement normal, affect appropriate for age, insight intact, no focal deficits. Lymphatic: No cervical lymphadenopathy Tests: labs reviewed, x-rays reviewed Assessment/Plan The patient is a 26-year-old female with a history of previous right breast duct excision with symptoms of unilateral right breast nipple discharge. 1. Breast lump or mass (N63.0: Unspecified lump in unspecified breast) We will refer her to Dr. So, with breast surgery at [facility]. 2. BMI 25.0-25.9,adult (Z68.25: Body mass index [BMI] 25.0-25.9, adult) ATTESTATION: Documentation services were performed after patient or guardian consented to allow [employer] to record this visit. MANNY e commerce specialist and provider reviewed before signing. MANNY: Melanie Garcia. Follow-up No qualifying data available Problem List/Past M (more content not included)... Normal [facility] Comment on above: Result Comment: Elec tronically Signed By: Lisa PAGE, Phoenix Sal\.br\Date and Time Signed: 08/17/22 08:36 EST\.br\Electronically Co-Signed By: Melanie Garcia.kashif\Date and Time Co-Signed: 08/14/22 09:46 EST Ambulatory Visit Summaryon 0 08-14-2022 Ambulatory Visit Summary FERNANDA CHA :1995 Visit Date:08/14/2022 Ambulatory Visit Instructions Your Diagnosis Breast lump or mass BMI 25.0-25.9,adult Your Care Team Attending Physician - Lisa PAGE, Phoenix Sal Primary Care Physician - Maryann Rashid CNP Referring Physician - Maryann Rashid CNP This Is Your Medications List ergocalciferol (Vitamin D 50,000 intl units (1.25 mg) oral capsule) ethinyl estradiol-norethindrone (Lo Loestrin Fe oral tablet) naproxen (Naprosyn 500 mg Tab) Procedures Performed Excision of cyst, fibroadenoma, or other benign or malignant tumor, aberrant breast tissue, duct lesion, nipple or areolar lesion (except [address]), open, male or female, 1 or more lesions (11/01/2020), Esophagogastroduodenoscopy (04/14/2019), Laparoscopy (2018), Colonoscopy (02/25/2015), wisdom teeth removed x4 (2010). Discharge Vitals Heart Rate (Peripheral) 66 Blood Pressure 115/60 Height 160 cm Height 63 in Weight 65 kg Weight 143 lb BMI 25.39 What to do next Someone Will Contact You Regarding These Appointments [facility]ulatory Referral, Referring provider preference, Surgery, Right breast pain with unilateral nipple discharge history of right breast duct excision referred to [facility]. Marie So at [facility] breast, 08/14/22 8:27:00 EST Medications What How Much When Instructions Unchanged ergocalciferol (Vitamin D 50,000 intl units (1.25 mg) oral capsule) 1 Capsules By Mouth Every week Unchanged ethinyl estradiol-norethindrone (Lo Loestrin Fe oral tablet) TAKE ONE TAB BY MOUTH PER DAY . Unchanged naproxen (Naprosyn 500 mg Tab) 1 Tablets By Mouth 2 times a day as needed for for pain Medications and Immunizations Administered Not Given influenza virus vaccine, inactivated, Postpone due to refusal SARS-CoV-2 mRNA (tozinameran 5y-11y) vac, Postpone due to refusal Allergies Bactrim (hives) Problems Ongoing - Any problem that you are currently receiving treatment for. Abnormal mammogram Allergic rhinitis BMI 25.0-25.9,adult Breast discharge Breast lump or mass Breast mass Breast pain, right Chest tightness Chronic female pelvic pain Diarrhea Dysuria Fainting episodes Fatigue Febrile seizures IBS (irritable bowel syndrome) Irregular menses Lymphadenopathy Menorrhagia Nipple discharge Other nail disorders Overweight (BMI 25.0-29.9) Pelvic congestion syndrome Serous otitis media Shortness of breath Thyromegaly Vaginal discharge Viral syndrome Vitamin D deficiency Historical - Any problem that you are no longer receiving treatment for. Adult BMI 27.0-27.9 kg/sq m Adult body mass index 28.0-28.9 Gilbert syndrome Normal [facility] Coding Summary.on 08-12-2022 Coding Summary. CD:[id number] Gh0bWw+PGh lYWQ+SG5GEMWhJ38ehXZcjV2AB4uLC U9EWFOOILHVXT4ZEX4loWJ4PTixY4J ybiAv FdzvnHPfPB78IUn7HIV5iVdnWIbdaK 0toNKtB4f3SaNvGW04hP73HZedFSKg CrC8OyGspzzvdVAm F4baGkCtdIHjVce+PHRhYmxlIHdpZH BxPCyuPQDtFmFlqOutHU0kOc8hYMQo LWNvbGxhcHNlOiBj p4lgADUkWNmwIQ0ubEenS3NsgWP7XE Evy4e0Sr49vDY+TGIwMAJ8sTpnZXlq r127JpKvj0yfGBF2 iMEvWZxzUXO6I41yh2M3TBMfEKCmKV F1cDA3fL7fjZrevqosP8PvtBTfLtH8 UAZ0nHJtyL1msMcz snnqyZ3nHzz+L24MUC3LQSNAZO7YZw t2K4ZqXgfqnAA+DC99HNRrNL02fSKe oSCii6hjiEv2JrQb GKGaMOW8qQhqOHdsr7YaSNAhB03nnJ Xlp2I5MBRctUinaQKiUqGqeNC2tA0p PCdkdsljf5yhhula Eqosq2irec24uB19J79gOVueULYySG N2FZGhOHGkgTkcpy4pcT4jLh4+IDxj p4xng3nfiRs8LfDr RYXzyvBigQxfAQZ3s9JeUz46T2VtiT upz3MlCkp6xc97mLIql6I3mAB2MLgu HGSetW9nWYjqZmG9 GGTyDfPykC51xIKmWPrzLk8fyMjwlG omND7wCTEswdjvPTGwpL9oDSIilEEx lDjxZZ9yHGXsdvad v421QsQxLJJ0EYXvwCItD7PmkL4jXn NaSSHzJWUlA4XjfIQyXGtuA063UVrw UyT8BRGhelNgR5Nf PZDakAziRwR6k0R2Dz9Vr4WhgzzkZV A6BNtgJDWmRuWqZzYjCfE2R5FwMtf6 KIOblPdcTD8lX4Re AOEtmdwxvomqfOF2ELWyYBDfrB28bL JtPOpqTf7oe6U1m348WFUaRNHilK46 Lo0hpEfyEXVmhUMP fE5jwzcur5uwzxpiJhSjGLPcPKf3PJ n2AAQtmZmiWyKsGUK6RgP7TOD8dVLr aD2fbUmoylkfnP6g Oyc+Y86msL9wAGN8UWW8gbruHPFhas FuKK75AQ66L2PdHpbnrLAprHV+PGRp poJksBvgGR4dQvVe v2fbd6UfRCouH4FiDKPsOBrqLgs2RX LwRKY9aUE1rA8tMPBiETlkk5K7nNJ1 S7XssmHbsu9ex9as JGYgWPweS27jhLTle8C5UTFvuGO6UH RzpUxcTrMlcD20Zeg+RDTdaQabn0Lf Bghkr1iuc7bzzRf7 ScErGGGtzaSgtJbqMKS6y7BzYk39G8 9jWZmjWJQyIIGhITMqGHXueCwlws7s yD6fQd3+PGNvbCB3 uRW8vZ4sAPZlSeK1GDakW001XaNuhK YtXuzds6yew6uvkPq7DzExGLXfjyOy uUweDQO9v6KkRj51 G01dAYxcHZBuJRDjSLCgFGVtdTxlcg 3tpF4yVq9+NX0kv2chvb05nA21uGZ+ GQAlLPB5yCvkWXkz JHUgoQ5rBRukTyE4WUEkHlQdsT70tA SuHHpvWi6xoFnxwBiaVU8aVCXikhph k158DjQqq7duHANl cBHwPQbtCQX2T04db1A3WJAxJJChMV U3kFK1bO7mgUngiyprvCHfbGtfwuNy oYjuMPmfRRnpX177 YGJetKvnUjQgvTmsjmEpHhFdCEw2H2 CsZaj4QTMieSjsHZ6rsMRbNVapPz8r fAuvsVxoFY4lFIUt mayuz069KrUsx1ftTWSixSXvZAmrWT S5M43ou0V0WMFuDKUwHAF0kKX6bU5b bGlnbjogbGVmdDsg djSkoDdyYEdtRSqxD270HVEmjPziNz JjirAuDDVsmQM4AS68EI22dZUoa6Z0 mHL1S1NrZQLtyish ptojkUI6XVYhIKUunG37Fn2bfYbfVw 1mCHSuDII8GMSlfBFwT9MmrH6bCwFb PYRmUXLsR1QwhAMr BZwrH347OThdVuW4YDWyeqBtZ5JpQN GklHtdVkM4e9G7Qh5IW3U9XK02JX43 tBCrm5W3cIX9F0Qk YIKlrpidlypauFR3IKFtAUXusI04Ms 8sxRaqEu5mDLMkXWL1HLEqcPYdS4Gz pT9jQzKtDYNvXSZl L6XvbLTwFScdI469SGhzUbO9GIQnov YqG0PwUFIdjKkzUzS8w2E7Rx1VCWe4 RR76TK29nBDxl9I5 qXZ4W1ItQDJaxdflzbndzCK7CGOyNO DzrF65Ui4wcJmzHj0kWQRpMSX6BOLa tIFxD7QfsF7zGeEz JEUlXRYsB6WgsTIeOIubQ977TPldRp L3LLKfdyNqW6VpKBPawHgaVwS7t5V3 Tj0NHSHyYI05NTW3 qNG1AU53CP79H5SzAyisuCJkqFY+PH RhYmxlIHdpZHRoPScxMDAlJyBzdHls RE1qGo3oXSEsSAKg gXejsIAkRoEkh1kyYXWqDUfrGO7jnC klQ3EhfSD2UVGbk6c9Do25V58jC0Qx dXA+DZRreWK9yVZ7 mT3wUgKrQiN3TUyyW736VkTzlWRzAa wli5gna4zttIc4LsB7BFAienAuoRyk KDI6o2FxIu60T97l ONvzCXWxDBFsUUWbFELwcHeqra0dvP 9wIi8+TSPedUM6fWR7mE2tYyZoLlG8 AZvyG621GqStwUYo Umebh6qun0mhwPc4StQpEZRmzeLrdN guJHP4x4ZlWb29V3PgyYsqk6JfFxw4 mh31jCPzj7H0aCK2 D1BgSLFmplebnLIvlGncQU6yRIBhio ljQQSlgU1mZJWmG8m9ZjYxTfR7IDmx Q5JkmzA0BDUlwJFu GZdeZDT8Q01ad3K4CDQdKDVvTHU6yU L4bB4esVoysbwoxJVkfZxjftCfyCdp LWtdSImkC924ZEZc wXueIVWagL4ePIOmsJTirVrvDU0nWM UmwwwmAgkRT0kbEJyUKDLVFrNBRU40 EA78bQFyd7P0lMT7 K8BhNBKfshihbuckuGM9NDCiDRBnyG 96wCShESzkZg7ax0S7m026MWHaGMYe lF53Ia6avLtoEBVh wOXBgR1tbemld5lvzcawCfAyPOGwDM h4GUz6LZHapIchUiKkOQH6HsX3VZB6 tGLwxP7vbTpbizfj wW2rStd+UVVzWwwiLFc4GSdrbTF+PH XdCMV5gIzaGObnEQBlaG1pPXKrW5l2 XxCqDgE7RBnaU9Wg MSOdmwpzNn61wS6qLuSoVrX6PFmfB5 BuwjR9DBBhdPYgIAqqSIT1Y98uo6W6 IFVsLYJuUJS0nMY8 sK7fqZutgdzkeXTunEgcwiAnbFqjGO xgFBjgQ227RORinNmvZaG5OBioZWWe ZT09IQ77aKDzp8I8 sAE9M3WaSZYoslmqflkbgRP6ROUhAR DwvK25cYMtZNxyPg6wt2Q8t850NKRa TLMgzJ46Xp7wnMym YTRfrOKBzN1ysnacu9uxwihwLxFnHS MfASh5RAq0TGFhuNdoXdSoOYP6IcN0 NTF2pUQnrF9jwOau xqdphX9gUdi+FyGeGVsnSZ54WF29lV Tlr9R7yOR1C1TdOWZytgyjmaevbNB2 NAZdNOXhbI28rSGg MYmnVc0mx5A2k368PRAzEZIdzY83Cx 5mtCxgDAUxsHISeR6dlsjig8zqlpiw DpUuZKRfVAx4JDc6 LFTtqRzsBbEaOKC2AgT9OVS9kBEvgY 2jvNtntxrwpZ8dCmw+A6C7oUA4hXSg dDwvdGQ+JC53gm13 V3FjWlkcAqe9RVEnCCB9wBG0vI6qKL LvVLoiy3D7wBS7A8AgnpQecm5ay6zp PJHbXVetB59oeWQq z7M6RNFdgZD8KEYexEmdHiLwqP13Fs c+XMBqsHezy7RiTrnfy2rpq3ccuSn7 IjMwJSIgdmFsaWdu RVB8z8FmYu41J04mDTvpMSGqLALzFK GwJUBvqOfbsa1ltY8pNd3+PGNvbCB3 dDQ2cG5aNmGhZpH5 BNlwO598SgGahSCqMvwxt6ufs2sovG g7PcQpHKGbwgMijAdqBBO5f6NtIj62 X1FqbJxnd9EoMuz2 kk05pSPns0H8xKK1S3IlJMDsjbmzoX DzjRlcDZ4hRTBcazocKGSekY3wVEJi A6r9IaZlFoH6QJqk P1FulxV8HONdzXPxTEYniMEUpB3vxy zil2shesedRkPtBRShUCk2FFe1SVAy aAbzKjQvEGV5GdQ6 BSI9bOUrkT6vvCxawsnsxC8kAps+UG a2e9twfOUbFV6pcEV6NL22MV46xHWs l2U4oYD6X2LyZGVm ezblgdzfbOK1BCRcADYxxX43Vz9igX ngRc6jIPCgEGO0HYDzcSImK5XbkA3z BiXtUKPfKFHaS8Jk vOJhUPypR905KYbjRcL1BWZjuuNsE1 DrPHCbjJtePqO3i4Q5Tb6PDZ44OS78 TV52bJWzq0H6eIQ0 Q9DdOCYvrvknwtmuyID3BTFsVDTamN 46Mr7utIqvRc5oPKCxCDW7KKOpiPWp G2RbtB3cBaOsPZMj QIKpM5AilUQjHMpwF743KMtoCsR7RJ CkdkRoF5NsXXFrrGvcHxI3e3I8Zw3J Rk12AT41OB87tWZf y7Q3hTX9U2BuHUPuruuttwulpAP4QA YiOKXavC30Au8xjXfyXv5qLYZpINS1 SESpsTDmM5FgrT0y GfYaVLQeDAZkX0OibEPtQSpkC425NR jtRnU0BJJhogPcD7AsSRJroWafVfZ2 z1U8Cn6FOYitcgi9 P9ZyOfjrdOF+PO51HNXiPH06wKWncX Ijw3jyuZq4FsPmLSUhJOG0pBopWYts v7ZfOIUrN16kjWQk c2U6 (more content not included)... Normal [facility] Consent for Treatmenton Consent for Treatment [id number]:127 Normal [facility] US Breast Unilateral Rt Comp leteon 08-10-2022 US Breast Unilateral Rt Complete Exam Date/Time: 08/10/2022 15:24 EST Reason for Exam: N64.4;Nipple discharge Report IMPRESSION: BI-RADS CATEGORY 2: BENIGN. CLINICAL MANAGEMENT OF PALPABLE FINDINGS IS SUGGESTED. CLINICAL HISTORY: Nipple discharge, N64.4. COMPARISON: 09/24/2020. COMMENT: An ultrasound was obtained at all clock face positions and in the central/ retroareolar region of the right breast. The patient indicated that she has felt a lump in the right breast. On scanning of this area at 10:00, no focal mass nor suspicious lesion is noted. The ultrasound appearance in this area suggests dense fibroglandular tissue. Posterior to the nipple, there is a 5 mm diameter cyst. No dilated or abnormal retroareolar ducts are identified on this ultrasound exam. The remainder of the right breast is unremarkable in appearance. The focal retroareolar abnormality noted on the prior ultrasound exam (and subsequently biopsied) is no longer visualized. FINAL REPORT Dictated: 08/10/2022 3:41 pm Dre Carvajal M.D. Signed (Electronic Signature): 08/10/2022 3:41 pm Signed by: Dre Carvajal M.D. Transcribed by: SEBASTIAN Technologist: LINDA Butler [facility] Family Medicine Office/Clini c Noteon 08-05-2022 Family Medicine Office/Clinic Note Chief Complaint pt here for lump on right breast, onset 3 months. lump has been getting bigger. does have a blackish discharge. does have pain in right breast. History of Present Illness Pt presents today for right breast lump. Noticed 3 months. Getting bigger. Has had a right breast lumpectomy with Dr. Gonzalez 11/01/20. Reports she has had black discharge from the nipple at times; will notice crusting at times as well. Breast metcalf a lot, is painful. Left breast fine. No change in skin texture. No recent trauma/injury. Denies nipple inversion. 1 child, son, 6 yo. Pain is pretty constant more recently, at first will come and go. Does have right axilla pain as well. No paresthesia or edema to right UE. Right handed. On Lo Loestrin Fe daily, no recent changes. Nonsmoker. Mom with hx breast cancer, still alive. No new bras. No caffeine routinely, occasional sprite. Review of Systems PHQ Score Initial Depression Screen Score: 0 See above. Physical Exam Vitals & Measurements T: 36.6 ?C(Oral) HR: 59(Peripheral) BP: 116/60 SpO2: 96% HT: 63 in HT: 160 cm WT: 65.6 kg WT: 144.32 lb BMI: 25.63 General: well developed, well groomed, well nourished, in no acute distress. Neck: supple, no masses palpable. Trachea midline. No palpable cervical or axillary adenopathy. Lungs: normal respiratory effort. Lungs clear and equal to auscultation throughout all bates anterior and posterior. Cardiovascular: S1 and S2 present, with regular rate and rhythm. No murmur. Breasts: skin/areolae normal, breasts unequal in size/shape. Lump noted to 10:00-11:00. No nipple crusting, no nipple discharge appreciated. No erythema/warmth/tenderness. Right axilla noted with enlarged lymph node Extremity: No clubbing, cyanosis, edema, or deformity. Normal ROM with upper and lower extremities, bilaterally. Neurologic: Cranial nerves II-XII grossly intact. Skin: Schlater, warm and dry. No rashes, ulcerations, or suspicious lesions noted on visible/exposed skin. Mental status: alert and oriented x 3. Normal mood and affect, normal behavior for age. Assessment/Plan 1. Breast pain, right (N64.4: Mastodynia) US ordered, will call with results. Will schedule with Gen Sx for f/u. Ordered: US Breast Unilateral Rt Complete 2. Nipple discharge (N64.52: Nipple discharge) See #1. Ordered: US Breast Unilateral Rt Complete 3. Lymphadenopathy (R59.1: Generalized enlarged lymph nodes) See #1. Ordered: US Breast Unilateral Rt Complete 4. Breast mass (N63.0: Unspecified lump in unspecified breast) See #1. 5. BMI 25.0-25.9,adult (Z68.25: Body mass index [BMI] 25.0-25.9, adult) The standard range for ages 18 and older is >=18.5 and < 25 kg/m2. Your BMI today was above this range, this falls in the overweight category and there are medical benefits to weight loss. We can offer counselling, referral, and/or medical support in addressing this problem. Visit ChooseMyPlate.gov for useful information to help make better choices when eating. Your BMI and weight management will be followed at subsequent visits. 6. Overweight (BMI 25.0-29.9) (E66.3: Overweight) Follow-up No qualifying data available Patient Education BMI for Adults Lymphadenopathy Breast Tenderness Problem List/Past Medical History Ongoing Abnormal mammogram Allergic rhinitis BMI 25.0-25.9,adult Breast discharge Breast lump or mass Breast mass Breast pain, right Chest tightness Chronic female pelvic pain Diarrhea Dysuria Fainting episodes Fatigue Febrile seizures Fullness of breast IBS (irritable bowel syndrome) Infection following a procedure, superficial incisional surgical site, sequela Irregular menses Lymphadenopathy Mammogram abnormal Menorrhagia Nipple discharge Other nail disorders Overweight (BMI 25.0-29.9) Pelvic congestion syndrome Serous otitis media Shortness of breath Thyromegaly Vaginal discharge Viral syndrome Vitamin D deficiency Historical Adult BMI 27.0-27.9 kg/sq m Adult body mass index 28.0-28.9 Gilbert syndrome Procedure/Surgical History Excision of cyst, fibroadenoma, or other benign or malignant tumor, aberrant breast tissue, duct lesion, nipple or areolar lesion (except 90121), open, male or female, 1 or more lesions (11/01/2020), Esophagogastroduodenoscopy (04/14/2019), Laparoscopy (2018), Colonoscopy (02/25/2015), wisdom teeth removed x4 (2010). Medications Lo Loestrin Fe oral tablet Naprosyn 500 mg Tab, 500 mg= 1 tab(s), Oral, BID, PRN, Not taking Vitamin D 50,000 intl units (1.25 mg) oral capsule, 71593 International_Unit= 1 cap(s), Oral, qWeek, 11 refills, Not taking Allergies Bactrim (hives) Social History Alcohol - Denies Alcohol Use, 08/04/2019 Current, Beer, 1-2 times per year, 05/30/2021 1-2 times per year, 11/16/2020 Substance Abuse - Denies Substance Abuse, 08/04/2019 Tobacco - Denies Tobacco Use, 03/16/2019 Never (less than 100 in lifetime) Tobacco Use:. Never Sm (more content not included)... Normal [facility] Comment on above: Result Comment: Elec tronically Signed By: Maryann Rashid CNP.kashif\Date and Time Signed: 08/05/22 19:29 EST Patient Educationon 08-05-19 23 Patient Education Infectious Disease Lymphadenopathy Lymphadenopathy means that your lymph glands are swollen or larger than normal (enlarged). Lymph glands, also called lymph nodes, are collections of tissue that filter bacteria, viruses, and waste from your bloodstream. They are part of your body's disease-fighting system (immune system), which protects your body from germs. There may be different causes of lymphadenopathy, depending on where it is in your body. Some types go away on their own. Lymphadenopathy can occur anywhere that you have lymph glands, including these areas: ? Neck (cervical lymphadenopathy). ? Chest (mediastinal lymphadenopathy). ? Lungs (hilar lymphadenopathy). ? Underarms (axillary lymphadenopathy). ? Groin (inguinal lymphadenopathy). When your immune system responds to germs, infection-fighting cells and fluid build up in your lymph glands. This causes some swelling and enlargement. If the lymph glands do not go back to normal after you have an infection or disease, your health care provider may do tests. These tests help to monitor your condition and find the reason why the glands are still swollen and enlarged. Follow these instructions at home: ? Get plenty of rest. ? Take wmaf-cxa-vydumrj and prescription medicines only as told by your health care provider. Your health care provider may recommend cngc-jss-onlavho medicines for pain. ? If directed, apply heat to swollen lymph glands as often as told by your health care provider. Use the heat source that your health care provider recommends, such as a moist heat pack or a heating pad. ? Place a towel between your skin and the heat source. ? Leave the heat on for 20?30 minutes. ? Remove the heat if your skin turns bright red. This is especially important if you are unable to feel pain, heat, or cold. You may have a greater risk of getting burned. ? Check your affected lymph glands every day for changes. Check other lymph gland areas as told by your health care provider. Check for changes such as: ? More swelling. ? Sudden increase in size. ? Redness or pain. ? Hardness. ? Keep all follow-up visits as told by your health care provider. This is important. Contact a health care provider if you have: ? Swelling that gets worse or spreads to other areas. ? Problems with breathing. ? Lymph glands that: ? Are still swollen after 2 weeks. ? Have suddenly gotten bigger. ? Are red, painful, or hard. ? A fever or chills. ? Fatigue. ? A sore throat. ? Pain in your abdomen. ? Weight loss. ? Night sweats. Get help right away if you have: ? Fluid leaking from an enlarged lymph gland. ? Severe pain. ? Chest pain. ? Shortness of breath. Summary ? Lymphadenopathy means that your lymph glands are swollen or larger than normal (enlarged). ? Lymph glands (also called lymph nodes) are collections of tissue that filter bacteria, viruses, and waste from the bloodstream. They are part of your body's disease-fighting system (immune system). ? Lymphadenopathy can occur anywhere that you have lymph glands. ? If your enlarged and swollen lymph glands do not go back to normal after you have an infection or disease, your health care provider may do tests to monitor your condition and find the reason why the glands are still swollen and enlarged. ? Check your affected lymph glands every day for changes. Check other lymph gland areas as told by your health care provider. This information is not intended to replace advice given to you by your health care provider. Make sure you discuss any questions you have with your health care provider. Document Released: 04/27/2009 Document Revised: 07/01/2018 Document Reviewed: 06/03/2018 [employer] Patient Education ? 2020 [employer]. Nutrition BMI for Adults Body mass index (BMI) is a number that is calculated from a person's weight and height. BMI may help to estimate how much of a person's weight is composed of fat. BMI can help identify those who may be at higher risk for certain medical problems. How is BMI used with adults? BMI is used as a screening tool to identify possible weight problems. It is used to check whether a person is obese, overweight, healthy weight, or underweight. How is BMI calculated? BMI measures your weight and compares it to your height. This can be done either in [place] or metric measurements. Note that charts are available to help you find your BMI quickly and easily without having to do these calculations yourself. To calculate your BMI in [place] measurements, your health care provider will: 1. Measure your weight in pounds (lb). 2. Multiply the number of pounds by 703. ? For example, for a person who weighs 180 lb, multiply that number by 703, which equals 126,540. 3. Measure your height in inches (in). Then multiply that number by itself to get a measurement called inches squared. ? For example, (more content not included)... Normal [facility] Testing Ordered By: Generated DomainUser on 08-20-2021 SARS-CoV-2 (COVID-19) RNA MIAH+probe Ql (Resp) Not detected Invalid Interpretation Code Not Detected [facility] Comment on above: Result Comment: This nucleic acid amplification test was developed and its performance characteristics determined by [employer]. Nucleic acid amplification tests include RT-PCR and TMA. This test has not been FDA cleared or approved. This test has been authorized by FDA under an Emergency Use Authorization (EUA). This test is only authorized for the duration of time the declaration that circumstances exist justifying the authorization of the emergency use of in vitro diagnostic tests for detection of SARS-CoV-2 virus and/or diagnosis of COVID-19 infection under section 564(b)(1) of the Act, 21 U.S.C. 360bbb-3(b) (1), unless the authorization is terminated or revoked sooner. When diagnostic testing is negative, the possibility of a false negative result should be considered in the context of a patient's recent exposures and the presence of clinical signs and symptoms consistent with COVID-19. An individual without symptoms of COVID-19 and who is not shedding SARS-CoV-2 virus would expect to have a negative (not detected) result in this assay. Performed at: [address] [id number] PhD Jean-Pierre Giraldo ABORH VERIFICATIONon 021 ABO and Rh group Nom (Bld) ABO/Rh Verification [facility] Comment on above: Patient's ABO/Rh is verified. ABO and Rh group Nom (Bld) O Positive [facility] Otheron 09-26-2020 Interpretation and review of laboratory results Normal [facility] POC Glucoseon 09-26-2020 Glucose [Mass/Vol] 79 mg/dL 65 - 99 mg/dL [facility] POC , Urineon 09-26 Beta HCG ( test) Ql (U) Dilute urine specimens, as indicated by a low specific gravity (<1.010) may not contain contracts representative levels of hCG. If is still suspected, a serum test or repeat urine test using a first morning urine specimen should be considered. [facility] HCG ( test) Ql (U) Negative Negative [facility] SCAN OTHER ORDERSon 09-26-19 21 Ordered by an unspec ified provider. [facility] Type and Screenon 09-26-2020 ABO and Rh group Nom (Bld) O Positive [facility] Blood group antibody screen Ql Negative [facility] Specimen Expires 09/29/2020 23:59 EST [facility] CBC AUTOon 06-16-2018 Erythrocyte distribution width Auto Ratio (RBC) 12.2 % [facility]14.5 [facility] Comment on above: Order Comment: Yury s: MAIN Performed By: #### L CBC ####[facility] [address] [place] [address] Hematocrit Auto Volume Fraction (Bld) 43.1 % Normal 36.0-48.0 [facility] Comment on above: Order Comment: Yury s: MAIN Performed By: #### L CBC ####[facility] [address] [place] [address] Hemoglobin mass conc (Bld) 14.2 g/dL Normal 12.0-15.0 [facility] Comment on above: Order Comment: Yury s: MAIN Performed By: #### L CBC ####[address] [address] MCH Auto Entitic mass (RBC) 29.0 pg Normal 25.4-34.6 [facility] Comment on above: Order Comment: Yury s: MAIN Performed By: #### L CBC ####[facility] [place] [address] MCHC Auto mass conc (RBC) 32.9 g/dL Normal 30.0-36.0 [facility] Comment on above: Order Comment: Yury s: MAIN Performed By: #### L CBC ####[address] [address] MCV Auto Entitic volume (RBC) 88.1 fL Normal 79.0-98.0 [facility] Comment on above: Order Comment: Yury s: MAIN Performed By: #### L CBC ####[facility] [place] [address] Platelet mean volume Auto Entitic volume (Bld) 10.0 fL Normal 8.4-11.9 [facility] Comment on above: Order Comment: Yury s: MAIN Performed By: #### L CBC ####[facility] [place] [address] Platelets Auto #/vol (Bld) 183 10*3/uL Normal 140-440 [facility] Comment on above: Order Comment: Campu s: MAIN Performed By: #### L CBC ####[facility] [address] [place] [address] RBC Auto #/vol (Bld) 4.89 10*6/uL Normal 3.5-5.5 [facility] Comment on above: Order Comment: Campu s: MAIN Performed By: #### L CBC ####[facility] [address] [place] [address] WBC Auto #/vol (Bld) 5.9 10*3/uL Normal 3.9-11.0 [facility] Comment on above: Order Comment: Campu s: MAIN Performed By: #### L CBC ####[facility] [address] [place] [address] HCG BETA QUANTITATIVEon 06-02 HCGQ < 2 Normal <5 [facility] Comment on above: Order Comment: Campu s: MAIN Result Comment: Refe rence Range <4 mIU/mL NEGATIVE 4-25 mIU/mL BORDERLINE >25 mIU/mL POSITIVEComment:Results of this test should always be interpreted inconjunction with the patient's medical history, clinicalpresentation and other findings.Low levels of HCG may be seen in very early (gestation Performed By: #### L HCGQ ####[facility] [address] [place] [address] History and Physical Virgilio 08-16-2017 History and Physical PAT [facility] Pt Name: FERNANDA [id number] [facility] MR # [id number] [address] : [birth year]* * * * * * * * History and Physical PAT * * * * * * * *History of Present IllnessDate of Ljxwlam89/15/18ource of InformationPatientChief Complaint/Present IllnesEndometriosisHPIPatient has endometriosis and h/o ovarian cysts. She had a vaginal delivery childbirth 2015 with no complications. Since then, patient c/o occasional but frequent pelvic painwith left side worse than right. Menses are regular but heavier than usual. Has spottingin between menses. Menses are lasting 7-10 days. LMP 05/31/18.PROBLEM LISTProblem ListMedical ProblemsEndometriosisOvarian cystSurgical ProblemsHx of colonoscopySocial History ProblemsDoes not drink alcoholNo illicit drug useNon-smokerFamily HistoryMOTHERFH: diabetes mellitusGRANDPARENTFH: diabetes mellitusAllergies/Home MedicationsAllergiesCoded Allergies:SULFAMETHOXAZOLE (From BACTRIM) (06/16/18)TRIMETHOPRIM (From BACTRIM) (06/16/18)Home Meds ReviewedI have reviewed the patient's Home Medication List.Home Medication List may have been reported by sources other than providers caring for thepatient at the time this document was created. Information may not be all inclusive.Reconcile MedicationsNo Known Home MedicationsLast Action: Reviewed on 06/16/18 @ 0743 by JULIA MCBRIDE of [facility] SystemsConstitutionalNEGATIVE: Fever, Chills, Sweaty, Weakness, Weight Loss, Recent Illness.EENTPOSITIVE: Vision Problems (glasses). NEGATIVE: Vision Changes, Sore Throat, DentalProblems, Nasal Congestion, Nasal Drainage, Hearing Loss, Ear Pain, Tinnitus.CVSNEGATIVE: Chest Pain, Palpitations, Shortness of Breath, Dizziness.PulmonaryNEGATIVE: Dyspnea on Exertion, Hemoptysis, Shortness of Breath, Cough, Pleuritic Pain,Wheezing, Asthma.GIPOSITIVE: Abdominal Pain (pelvic pain), Nausea (occasional). NEGATIVE: Vomiting, Diarrhea, Black Stools, Bloody Stools, Hematemesis, Constipation.GUNEGATIVE: Problems Urinating, Painful Urination, Hematuria.Muscle/LymphPOSITIVE : Back Pain (occasional). NEGATIVE: Extremity Pain, Calf Pain, Leg Pain, NeckPain, Joint Pain, Ankle Swelling, Leg Swelling, Swollen Glands.SkinNEGATIVE: Rash, Lesions.NeuroPOSITIVE: Dizziness (occasional). NEGATIVE: Headache, Fainting, Loss of Sensation,Weakness, Difficulty Walking, Difficulty with Speech.PsychNEGATIVE: Confusion, Anxiety, Depression.Postop Anesthesia ProblemsNonePhysical ExamVital SignsTemp (C)36.9Lyepk48Bfeelivxuvrf90Dy ood Zxgkpbvy488/79Pulse-Ox%98Heigh t - Zarf6Qxxnym4.00Weight - Tw427Rb-Bp56.580AppearanceGene ral AppearanceWell Developed/Nourished, Alert, Oriented X 3, Cooperative.HEENTHEENTHead Atraumatic, Normocephalic, PERRL, Hearing grossly normal, Mucosa Moist, PatentAirway.CVSCardiovascular Rate WNL, Rhythm regular.RespiratoryRespiratory Bilaterally Clear, No Respiratory Distress.NeuroNeuroOriented x 3, Speech Clear, Moves all extremities.Abdomen/GUAbdomenB owel Sounds Present, Abdomen soft, Non-Tender, No distention.MusculoskeletalExtr emitySensation Intact, Motor Intact, No tenderness, No Pedal Edema.SkinDermatologicalWarm, Dry.Assessment and Plan (PAT)Assessment and PlanAssessment and Plan22 year old female for laparoscopy with fulguration today 06/16/18CBC and TANDS as ordered per HCG todayReport Date 06/16/18Electronically Signed Esig Date Esig TimeIvon Soni [employer]CH[employer]IES DIVISION CHAIR-[employer] 06/16/18 0809 [facility] OPERATIVE REPORTon 8 OPERATIVE REPORT Name: FERNANDA CHAMR : [id number]: Amanda Parks M.D.DATE OF SURGERY: 06/16/2018ANESTHESIA: General endotracheal.1ST GERIATRIC NURSE:PREOP DIAGNOSIS: Pelvic pain.POSTOP DIAGNOSIS: Pelvic pain.OPERATION: Diagnostic laparoscopy.EBL: Minimal.COMPLICATIONS: There were no complications.OPERATIVE REPORT: The patient was taken to the OR suite. General anesthesiawas administered. She was draped and prepped in normal sterile manner. Atime-out was taken confirming the correct patient, correct procedure, allknown medical allergies. Following the time-out, a speculum was placed withinthe vagina. Single-tooth tenaculum was placed in the anterior lip of thecervix. Uterine manipulator was placed. My gloves were changed. 0.5%Marcaine was injected infraumbilically. A 5 mm incision was made. An opticaltrocar was introduced. Pneumoperitoneum was created under directvisualization with transillumination. The entire pelvis was visualized. Wewere able to visualize the entire uterus, the cul-de-sac, the ovaries, theliver edge. There was no evidence of any endometriosis. The uterosacralligaments were normal in appearance. The pneumoperitoneum was released. Theinstruments were removed from the vagina after the trocar was removed. Thepatient tolerated the procedure. Amanda PARKS M.D./[facility]/[id number]: 06/16/2018 12:32:38 E/S: Amanda Parks MD [facility] [id number] [place] [address] [id number]: Amanda Parks MDOPERATIVE LXUZUN02/19/18 1408Electronically Signed [facility] [id number] [place] [address] [id number]: Amanda Parks MDOPERATIVE REPORT [facility] Post Anesthesia Evaluationon 06-16-2018 Post Anesthesia Evaluation [id number] [id number] [place] [address] : 93POST ANESTHESIA EVALUATION NOTEService Date: 06/16/18 1443Post Anesthesia Eval NoteProcedure Date06/16/18Post Anesthesia EvalYES: VS in Normal Range, Respiratory Stable, Airway Patent, Cardiovascular Stable,Hydration Status Stable, Mental Status Recovered, Pt Participate in Eval, Pain Controlled,NANDV Controlled.[facility] AnesthesiaNoAnesthestic ComplicationsNoReport Date 06/16/18Electronically Signed Esig Date Esig Marysol Martins MD 06/16/18 1444 [facility] TYPE AND SCREENon 06-16-2018 ABO and Rh group Nom (Bld) O POSITIVE [facility] Comment on above: Order Comment: Campu s: MAINIs patient taking DUSTY?Has patient had a transplant? Performed By: #### B TS ####[facility] [address] [place] [address] Vital Signs Date Time Vital Sign Value Performing Clinician Dago oleary 10-09-2022 10:48-0500 Body height 160 cm Marlys Meeks CN P Work Phone: [facility] 10-09-2022 10:48-0500 Body mass index (BMI) [Ratio] 24.98 kg/m2 Marlys Piercet [employer] Work Phone: [facility] 10-09-2022 10:48-0500 Body weight 63.96 kg Marlys Piercet CN P Work Phone: [facility] 10-09-2022 10:48-0500 Diastolic blood pressure 72 mm[Hg] Marlys Garnerfert S[employer] POLISHER Work Phone: [facility] 10-09-2022 10:48-0500 Systolic blood pressure 116 mm[Hg] Marlys Pascualfert SAND POLISHER Work Phone: [facility] 10-02-2022 18:13-0500 Diastolic blood pressure 86 mm[Hg] [facility] 10-02-2022 18:13-0500 Heart rate 65 /min [facility] 10-02-2022 18:13-0500 Mean blood pressure 99 mm[Hg] [facility] 10-02-2022 18:13-0500 Respiratory rate 20 /min [facility] 10-02-2022 18:13-0500 SaO2% (BldA) [Mass fraction] 99 % [facility] 10-02-2022 18:13-0500 Systolic blood pressure 126 mm[Hg] [facility] 10-02-2022 17:00-0500 Diastolic blood pressure 129 mm[Hg] [facility] 10-02-2022 17:00-0500 Heart rate 75 /min [facility] 10-02-2022 17:00-0500 Mean blood pressure 137 mm[Hg] [facility] 10-02-2022 17:00-0500 Respiratory rate 18 /min [facility] 10-02-2022 17:00-0500 SaO2% (BldA) [Mass fraction] 96 % [facility] 10-02-2022 17:00-0500 Systolic blood pressure 152 mm[Hg] [facility] 10-02-2022 16:00-0500 Diastolic blood pressure 78 mm[Hg] [facility] 10-02-2022 16:00-0500 Heart rate 88 /min [facility] 10-02-2022 16:00-0500 Mean blood pressure 90 mm[Hg] [facility] 10-02-2022 16:00-0500 Respiratory rate 16 /min [facility] 10-02-2022 16:00-0500 Systolic blood pressure 115 mm[Hg] [facility] 10-02-2022 15:00-0500 Heart rate 82 /min [facility] 10-02-2022 14:00-0500 Body temperature 98.24 [degF] [facility] 10-02-2022 14:00-0500 Heart rate 89 /min [facility] 08-25-2022 13:56-0500 Body height 160 cm Fernanda Butler DO Work Phone: [facility] 08-25-2022 13:56-0500 Body weight 64.86 kg Fernanda Lowlexiialejandro DO Work Phone: [facility] 08-14-2022 08:03-0500 Blood Pressure Location Phoenix Gonzalez [facility] 08-14-2022 08:03-0500 Diastolic blood pressure 60 mm[Hg] Phoenix Gonzalez [facility] 08-14-2022 08:03-0500 Heart rate 66 /min Phoenix Gonzalez [facility] 08-14-2022 08:03-0500 SaO2% (BldA) [Mass fraction] 99 % Phoenix Cottoy [facility] 08-14-2022 08:03-0500 Systolic blood pressure 115 mm[Hg] Phoenix Gonzalez [facility] 08-05-2022 16:13-0500 Blood Pressure Location Maryann Rashid [facility] 08-05-2022 16:13-0500 Body temperature 97.88 [degF] Maryann Rashid [facility] 08-05-2022 16:13-0500 Diastolic blood pressure 60 mm[Hg] Maryann Vizcarraell [facility] 08-05-2022 16:13-0500 Heart rate 59 /min Maryann Rashid [facility] 08-05-2022 16:13-0500 SaO2% (BldA) [Mass fraction] 96 % Maryann Rashid [facility] 08-05-2022 16:13-0500 Systolic blood pressure 116 mm[Hg] Maryann Rashid [facility] 07-02-2022 12:54-0500 Body height 160 cm Jun Suh PA- C Work Phone: [facility] 07-02-2022 12:54-0500 Body mass index (BMI) [Ratio] 24.98 kg/m2 Jun Suh PA-C Work Phone: [facility] 07-02-2022 12:54-0500 Body weight 63.96 kg Jun Suh PA- C Work Phone: [facility] 07-02-2022 12:54-0500 Diastolic blood pressure 74 mm[Hg] Jun Suh PA-C Work Phone: [facility] 07-02-2022 12:54-0500 Heart rate 91 /min Jun Suh PA- C Work Phone: [facility] 07-02-2022 12:54-0500 Systolic blood pressure 114 mm[Hg] Jun Suh PA-C Work Phone: [facility] 06-18-2022 12:04-0500 Body height 160 cm Shaan Coronado [employer] Work Phone: [facility] 06-18-2022 12:04-0500 Body mass index (BMI) [Ratio] 27.1 kg/m2 Shaan Coronado [employer] Work Phone: [facility] 06-18-2022 12:04-0500 Body weight 69.4 kg Shaan Coronado [employer] Work Phone: [facility] 06-18-2022 12:04-0500 Diastolic blood pressure 82 mm[Hg] Shaan Coronado [employer] Work Phone: [facility] 06-18-2022 12:04-0500 Systolic blood pressure 117 mm[Hg] Shaan Coronado [employer] Work Phone: [facility] 04-02-2022 10:37-0400 Body height 160 cm Jun Alonzobacher PA- C Work Phone: [facility] 04-02-2022 10:37-0400 Body mass index (BMI) [Ratio] 27.21 kg/m2 Jun Merbelbacher PA-C Work Phone: [facility] 04-02-2022 10:37-0400 Body weight 69.67 kg Jun Merbelbacher PA- C Work Phone: [facility] 04-02-2022 10:37-0400 Diastolic blood pressure 73 mm[Hg] Jun Merbelbacher PA-C Work Phone: [facility] 04-02-2022 10:37-0400 Heart rate 98 /min Jun Merbelbacher PA- C Work Phone: [facility] 04-02-2022 10:37-0400 Systolic blood pressure 113 mm[Hg] Jun Merzbacher PA-C Work Phone: [facility] 10-09-2020 11:09-0500 BMI (Body Mass Index) 26.43 kg/m2 Darlin Balderas [facility] 10-09-2020 11:09-0500 Body Temperature 98.01 [degF] Shivkamini Somasundaram [facility] 10-09-2020 11:09-0500 Body weight 69.85 kg Shivkamini Somasundaram [facility] 10-09-2020 11:09-0500 BP Diastolic 70 mm[Hg] Shivkamini Somasundaram [facility] 10-09-2020 11:09-0500 BP Systolic 108 mm[Hg] Shivkamini Somasundaram [facility] 10-09-2020 11:09-0500 Height 162.6 cm Shivkamini Somasundaram [facility] 09-26-2020 19:08-0500 Body Temperature 98.91 [degF] Shivkamini Somasundaram [facility] 09-26-2020 19:08-0500 BP Diastolic 58 mm[Hg] Shivkamini Somasundaram [facility] 09-26-2020 19:08-0500 BP Systolic 96 mm[Hg] Shivkamini Somasundaram [facility] 09-26-2020 19:08-0500 Pulse (Heart Rate) 103 /min Shivkamini Somasundaram [facility] 09-26-2020 19:08-0500 Pulse Oximetry 97 % Shivkamini Somasundaram [facility] 09-26-2020 19:08-0500 Respiratory Rate 15 /min Shivkamini Somasundaram [facility] 09-26-2020 09:23-0500 BMI (Body Mass Index) 26.53 kg/m2 Shivkamini Somasundaram [facility] 09-26-2020 09:23-0500 Body weight 70.1 kg Shivkamini Somasundaram [facility] 09-26-2020 09:23-0500 Height 162.6 cm Shivkamini Somasundaram [facility] 08-14-2020 14:52-0500 BMI (Body Mass Index) 27.07 kg/m2 Shivkamini Somasundaram [facility] 08-14-2020 14:52-0500 Body Temperature 97.7 [degF] Shivkamini Somasundaram [facility] 08-14-2020 14:52-0500 Body weight 69.31 kg Darlin Balderas [facility] 08-14-2020 14:52-0500 BP Diastolic 60 mm[Hg] Darlin Balderas [facility] 08-14-2020 14:52-0500 BP Systolic 110 mm[Hg] Darlin Balderas [facility] 08-14-2020 14:52-0500 Height 160 cm [facility] Encounters Encounter Date Encounter Type Care Provider Facility Start: 07-15-2023 End: 07-15-2023 Emergency department patient visit Son Reyes [place] [place]: 05-31-2023 Refill Ann Marie Miller RN [facility] Gyne[facility] Comment on above: Interstitial cystiti s Start: 02-19-2023 End: 02-19-2023 Emergency department patient visit Son Reyes [place] Start: 10-28-2022 End: 10-28-2022 ambulatory FERNANDA BUTLER Facility:[facility] Start: 10-28-2022 End: 10-28-2022 Office outpatient visit 15 minutes Fernanda Butler DO Work Phone: General Surgery Comment on above: Breast pain, right ( Primary Dx); Nipple discharge; Family history of breast cancer Start: 10-12-2022 Telephone encounter Bella Barrera RN General Surgery Comment on above: Appointment Start: 10-09-2022 End: 10-09-2022 ambulatory ASAD OWENS [facility] Amb[facility] Start: 10-09-2022 End: 10-09-2022 Patient encounter procedure Marlys Meeks [employer] Work Phone: [facility] Comment on above: Interstitial cystiti s (Primary Dx) Start: 10-07-2022 End: 10-07-2022 Subsequent hospital visit by physician Diagnostic Mammo Main Mammography Comment on above: Mass of upper outer quadrant of right breast [N63.11] Start: 10-07-2022 End: 10-07-2022 ambulatory FERNANDA BUTLER Facility:[facility] Start: 10-07-2022 End: 10-07-2022 Subsequent hospital visit by physician Mri Main A10 (Large Bore/1.5t) Work Phone: MRI A10 Comment on above: Mass of upper outer quadrant of right breast [N63.11] Start: 10-02-2022 End: 10-02-2022 Emergency department patient visit Phoenix Castro [place] Start: 10-02-2022 End: 10-02-2022 Emergency department patient visit Phoenix Castro [facility] Start: 08-25-2022 End: 08-25-2022 ambulatory FERNANDA BUTLER Facility:[facility] Start: 08-25-2022 End: 08-25-2022 Office outpatient new 45 minutes Fernanda Butler DO Work Phone: General Surgery Comment on above: Mass of upper outer quadrant of right breast (Primary Dx); Nipple discharge; Family history of breast cancer; At high risk for breast cancer; Mastalgia Start: 08-14-2022 End: 08-15-2022 ambulatory Maryann Rashid Facility:[facility] Start: 08-14-2022 End: 08-14-2022 Patient encounter procedure Phoenix Gonzalez [facility] General Surgery [facility] Start: 08-10-2022 End: 08-11-2022 ambulatory Maryann Rashid [place] Start: 08-10-2022 End: 08-10-2022 Patient encounter procedure Maryann Rashid [facility] Start: 08-05-2022 End: 08-06-2022 ambulatory Maryann Rashid Facility:[facility] Start: 08-05-2022 End: 08-05-2022 Patient encounter procedure Maryann Rashid [facility] Start: 07-02-2022 End: 07-02-2022 ambulatory JUN SUH [facility] Start: 07-02-2022 End: 07-02-2022 Office outpatient visit 10 minutes Jun Suh PA-C Work Phone: [facility] Physician [facility] Gynecology Comment on above: Myofascial muscle pa in (Primary Dx); Pelvic pain in female; Interstitial cystitis; Encounter for other general counseling or advice on contraception Start: 06-18-2022 End: 06-22-2022 ambulatory ASAD OWENS [facility] Start: 06-18-2022 End: 06-18-2022 ambulatory SHAAN CORONADO [facility] Start: 06-18-2022 End: 06-18-2022 Patient encounter procedure Shaan Coronado [employer] Work Phone: [facility] Physician [facility] Gynecology Comment on above: Interstitial cystiti s (Primary Dx); Dark yellow-colored urine Start: 04-03-2022 Orders Only Marlys contreras [employer] Work Phone: [facility] Comment on above: BV (bacterial vagino sis) (Primary Dx) Start: 04-02-2022 End: 04-02-2022 ambulatory JUN SUH [facility] Start: 04-02-2022 End: 04-02-2022 Encounter for gynecological examination (general) (routine) without abnormal findings JUN SUH [facility] Start: 04-02-2022 End: 04-02-2022 Patient encounter procedure Jun Suh PA-C Work Phone: [facility] Start: 04-02-2022 End: 04-02-2022 Periodic preventive med est patient 18-39 yrs Jun Suh PA-C Work Phone: [facility] Comment on above: Well woman exam (Barbara yves Dx); Screening for malignant neoplasm of cervix; Vaginal discharge; Myofascial muscle pain; Pelvic pain in female Start: 08-20-2021 End: 11-18-2021 Patient encounter procedure Angela HARVEY [facility] Start: 10-09-2020 End: 10-09-2020 Refill Selene Perdomo [facility] Physician [facility] Gynecology Comment on above: Pelvic pain in femal e (Primary Dx) Start: 10-09-2020 End: 10-09-2020 Postop follow up visit related to original px Shivkamini Somasundaram Work Phone: [facility] Physician [facility] Gynecology Comment on above: Post-operative state (Primary Dx); Chronic pelvic pain in female; Interstitial cystitis Start: 09-26-2020 End: 09-26-2020 Patient encounter procedure ASAD Julio CMaricruz OWENS [facility] Start: 09-26-2020 End: 09-26-2020 Subsequent hospital visit by physician Darlin Balderas Work Phone: [facility] [address] Comment on above: Ovarian cyst rupture ; Chronic pelvic pain in female; Dysuria; Irritable bowel syndrome, unspecified type Start: 09-25-2020 End: 09-25-2020 Clinical Support Selene Perdomo [facility] Physician [facility] Gynecology Start: 09-20-2020 End: 09-20-2020 Orders Only Shivkamini Somasundaram Work Phone: [facility] Physician [facility] Gynecology Comment on above: Ovarian cyst rupture (Primary Dx); Chronic pelvic pain in female; Dysuria; Irritable bowel syndrome, unspecified type Start: 08-20-2020 End: 08-20-2020 Refill Shivkamini Somasundaram Work Phone: [facility] Physician [facility] Gynecology Start: 08-16-2020 End: 08-16-2020 Refill Selene Perdomo [facility] Start: 08-14-2020 End: 08-14-2020 Office outpatient new 30 minutes Shivkamini Somasundaram Work Phone: [facility] Physician [facility] Gynecology Comment on above: Pelvic pain in femal e; Endometriosis; Ovarian cyst rupture; Pelvic congestion Start: 06-16-2018 Patient encounter procedure [facility] Facility:[facility] Procedures Date Procedure Procedure Detail Performing Clinician Start: 10-07-2022 Us breast uni real time with image limited Fernanda Butler DO Work Phone: Start: 10-07-2022 Digital breast tomosynthesis bilateral Fernanda Butler DO Work Phone: Start: 10-07-2022 Mri breast without&with contrast w/cad bilateral Fernanda Butler DO Work Phone: Start: 07-02-2022 Follow-up visit Follow-up JUN SUH Start: 04-02-2022 Microscopic observation [Identifier] in Cervix by Cyto stain Shaan Coronado CNP Work Phone: Start: 11-01-2020 Exc cyst/aberrant breast tissue open 1/> lesion Angela HARVEY Start: 09-26-2020 SCAN OTHER ORDERS Provider Not In System Start: 09-26-2020 Blood group typing Shivkamini Somasundaram Work Phone: Start: 09-26-2020 Glucose [Mass/volume] in Blood Shivkamin i Somasundaram Work Phone: Start: 09-26-2020 Choriogonadotropin ( test) [Presence] in Urine Shivkamini Somasundaram Work Phone: Start: 09-26-2020 Blood type and Indirect antibody screen panel - Blood Shivkamini Somasundaram Work Phone: Start: 04-14-2019 Esophagogastroduodenoscopy Angela QUINTEROS Start: 08-02-2018 Laparoscopy Angela HARVEY Comment on above: Dx with pelvic congestion syndrome Start: 06-16-2018 Antibody screen Amanda Parks Comment on above: Order Comment: [place]: [facility] patient king DUSTY?Has patient had a transplant? Performed By: #### B TS ####[facility] [id number] [place] [address] Start: 02-25-2015 Colonoscopy Angela HARVEY Start: 08-02-2010 wisdom teeth removed x4 Angela CANDICE Plan of Treatment Date Care Activity Detail Author Start: 06-11-2026 Tetanus vaccination Tetanus: Every 1 0yrs [facility] Start: 04-02-2025 Screening for malign ant neoplasm of cervix Pap Smear [facility] Start: 09-29-2023 End: 09-29-2023 Patient encounter procedure 09/29/2023 1:10 PM EST Office Visit [facility] Physician [facility] Gynecology [address] [place] [address] Jun Suh PA-C [address] [place] [address] [facility] Gynecology Start: 04-02-2023 History and physical examination, annual for health maintenance Wellness Visit [facility] Start: 04-02-2023 Influenza vaccination [facility] Start: 10-22-2022 End: 10-22-2022 Patient encounter procedure 10/22/2022 Procedure visit Gynecology Marlys Meeks, AUTUMN [address] [place] [address] [facility] Physician [facility] Gynecology Start: 09-30-2022 End: 09-30-2022 Telemedicine consultation with patient 09/30/2022 Telemedicine Gynecology Jun Suh PA-C [address] [place] [address] [facility] Physician [facility] Gynecology Start: 08-02-2022 DEPRESSION ASSESSMENT DEPRESSION ASS [facility] Start: 07-02-2022 End: 07-02-2022 Patient encounter procedure 07/02/2022 Office Visit Gynecology Jun Suh PA-C [address] [place] [address] [facility] Gynecology Start: 04-10-2022 End: 04-10-2022 Patient encounter procedure 04/10/2022 Procedure visit Gynecology Shaan Coronado, [employer] [address] [facility] [place] [address] [facility] Gynecology Start: 04-02-2022 Influenza vaccination [facility] Start: 01-08-2021 End: 01-08-2021 Office Visit 01/08/2021 Office Visit Gynecology Viktor Mendosa, CNM [address] [facility] [place] [address] [phone] [facility] Gynecology Start: 10-09-2020 End: 10-09-2020 Office Visit 10/09/2020 Office Visit Gynecology Darlin Balderas MD [address] [place] [address] [phone] [facility] Gynecology Start: 09-26-2020 End: 09-26-2020 Hospital Encounter [facility] Comment on above: XI ROBOTIC ASSISTED LAPAROSCOPIC EXCISION OF ENDOMETRIOSIS, CHROMOPERTUBATION, CYSTOSCOPY POSSIBLE HYDRODISTENTION, POSSIBLE IUD INSERTION ERAS PROTOCOL Start: 09-26-2020 End: 09-26-2020 Hospital Encounter [facility] Comment on above: XI ROBOTIC ASSISTED LAPAROSCOPIC EXCISION OF ENDOMETRIOSIS, CHROMOPERTUBATION, CYSTOSCOPY POSSIBLE HYDRODISTENTION, POSSIBLE IUD INSERTION ERAS PROTOCOL Start: 09-25-2020 End: 09-25-2020 Clinical Support [facility] Gynecology Start: 09-22-2020 End: 09-22-2020 Office Visit 09/22/2020 Office Visit Lab Darlin Balderas MD [address] [facility] [place] [address] [phone] [facility] Start: 04-02-2020 Influenza vaccinatio n given Sequential Influenza Vaccine (#1) [facility] Start: 2014 PAP TESTING PAP TESTING [facility] Start: 2012 Urine microalbumin profile DTAP,TDAP,TD (1 - Tdap) [facility] Start: 10-28-2011 Hepatitis C antibody , confirmatory test Hepatitis C Screening [facility] Start: 10-28-2011 Hepatitis C screening Hepatitis C [facility] Start: 10-28-2011 HEPATITIS C SCREENING HEPATITIS C [facility] Start: 10-28-2011 HIV SCREENING HIV SCREENING [facility] Start: 2009 COVID-19 Vaccine (1 of 2) COVID-19 Vaccine (1 of 2) [facility] Start: 2008 HIV screening HIV Screening [facility] Start: 2005 Adolescent depressio n screening assessment Depression Screening (PHQ9) [facility] Start: 2005 Depression screening using PHQ-9 (Patient Health Questionnaire 9) score Depression Screening (PHQ-2/9) [facility] Start: 1996 History and physical examination, annual for health maintenance Wellness Visit [facility] Start: 04-29-1994 COVID-19 Vaccine (#1) COVID-19 Vacci ne (#1) [facility] Start: 1993 HEPATITIS B (1 of 3 - 3-dose series) HEPATITIS B (1 of 3 - 3-dose series) [facility] Start: 1993 Screening for malign ant neoplasm of cervix Pap Smear [facility] Chlamydia trachomati s rRNA assay Chlamydia/GC/Trichomona s Amplified RNA Microbiology Routine Vaginal discharge 04/02/2022 12:31 PM EDT [facility] End: 06-18-2023 Complete blood count with white cell differential, manual CBC and differential Lab Routine Dark yellow-colored urine 1 Occurrences starting 06/18/2022 until 06/18/2023 [facility] Work Phone: Comment on above: 1 Occurrences starti ng 06/18/2022 until 06/18/2023 Complete blood count with white cell differential, manual CBC and differential Lab Routine Dark yellow-colored urine 06/18/2022 1:02 PM EST [facility] End: 06-18-2023 Creatinine [Mass/volume] in Serum or Plasma Creatinine, Serum Lab Routine Dark yellow-colored urine 1 Occurrences starting 06/18/2022 until 06/18/2023 [facility] Comment on above: 1 Occurrences starti ng 06/18/2022 until 06/18/2023 Creatinine [Mass/vol ume] in Serum or Plasma Creatinine, Serum Lab Routine Dark yellow-colored urine 06/18/2022 1:02 PM EST [facility] End: 09-24-2023 Diagnostic mammography computer-aided detcj bi [facility] Radiology Routine Mass of upper outer quadrant of right breast Nipple discharge Family history of breast cancer At high risk for breast cancer Mastalgia 1 Occurrences starting 08/25/2022 until 09/24/2023 [facility] Work Phone: Comment on above: 1 Occurrences starti ng 08/25/2022 until 09/24/2023 End: 04-02-2023 Gardnerella vaginalis rRNA assay Vaginitis DNA Probes Microbiology Routine Vaginal discharge 1 Occurrences starting 04/02/2022 until 04/02/2023 [facility] Comment on above: 1 Occurrences starti ng 04/02/2022 until 04/02/2023 Gardnerella vaginali s rRNA assay Vaginitis DNA Probes Microbiology Routine Vaginal discharge 04/02/2022 12:31 PM EDT [facility] End: 06-18-2023 IRRIGATION OF BLADDER Irrigation of bladder Procedures Routine Interstitial cystitis 1 Occurrences starting 06/18/2022 until 06/18/2023 [facility] Comment on above: 1 Occurrences starti ng 06/18/2022 until 06/18/2023 Microscopic examinat ion of vaginal Papanicolaou smear Thinprep Pap Smear Pathology and Cytology Routine Screening for malignant neoplasm of cervix Ordered: 04/02/2022 [facility] Work Phone: Comment on above: Ordered: 04/02/2022 End: 09-24-2023 Mri breast without&with contrast w/cad bilateral MRI BREAST WO/W IVCON BILAT Radiology Routine Mass of upper outer quadrant of right breast Nipple discharge Family history of breast cancer At high risk for breast cancer Mastalgia 1 Occurrences starting 08/25/2022 until 09/24/2023 [facility] Work Phone: Comment on above: 1 Occurrences starti ng 08/25/2022 until 09/24/2023 Neisseria gonorrhoea e nucleic acid detection [facility] Comment on above: Ordered: 04/02/2022 Procedure on tissue specimen [facility] Comment on above: Release Upon Christinein g for 1 Occurrences starting 09/26/2020, 1 completed Trichomonas vaginali s Amplified RNA [facility] Comment on above: Ordered: 04/02/2022 End: 06-18-2023 Urate [Mass/volume] in Serum or Plasma Uric Acid Lab Routine Dark yellow-colored urine 1 Occurrences starting 06/18/2022 until 06/18/2023 [facility] Comment on above: 1 Occurrences starti ng 06/18/2022 until 06/18/2023 Urate [Mass/volume] in Serum or Plasma Uric Acid Lab Routine Dark yellow-colored urine 06/18/2022 1:02 PM EST [facility] End: 09-24-2023 Us breast uni real time with image limited US BREAST LTD RT Radiology Routine Mass of upper outer quadrant of right breast Nipple discharge Family history of breast cancer At high risk for breast cancer Mastalgia 1 Occurrences starting 08/25/2022 until 09/24/2023 [facility] Work Phone: Comment on above: 1 Occurrences starti ng 08/25/2022 until 09/24/2023 [facility] Immunizations Immunization Date Immunization Notes Care Provider Amara lindo 06-11-2016 tetanus toxoid, reduced diphtheria toxoid, and acellular pertussis vaccine, adsorbed Angela HARVEY [facility] Comment on above: Reason for Medicatio n: Other (see comment) NEGATED: Highlighted row has not occurred!08-14-2022 influenza virus vaccine, unspecified formulation Phoenix Gonzalez [facility] General Surgery [facility] NEGATED: Highlighted row has not occurred!08-14-2022 SARS-CoV-2 mRNA (tozinameran 5y-11y) vaccine Phoenix Gonzalez [facility] General Surgery [employer] NEGATED: Highlighted row has not occurred!11-27-2020 SARS-CoV-2 (COVID-19) mRNA-1273 vaccine Angela HARVEY [facility] NEGATED: Highlighted row has not occurred!09-18-2020 influenza virus vaccine, unspecified formulation Angela HARVEY [facility] NEGATED: Highlighted row has not occurred!08-04-2019 influenza virus vaccine, live, attenuated, for intranasal use Angela HARVEY [facility] Payers Date Payer Category Payer Medicaid [id number] 2016 Medicaid [id number] 2016 Medicaid [facility] [id number] 2016-Present [id number] 2016 Medicaid [id number] 1993 Unknown [id number] 1993 Unknown [id number] 1993 Unknown [id number] 1993 Unknown [id number] 1993 Unknown [id number] 1993 Unknown [id number] 1993 Unknown [id number] 1993 Unknown [id number] 1993 Unknown [id number] 1993 Unknown [id number] 1993 Unknown [id number] 1993 Unknown [id number] Unknown [id number] Social History Date Type Detail Facility Start: 08-14-2020 End: 04-02-2022 Tobacco smoking status NHIS Never smoker [facility] Start: 08-14-2020 End: 04-02-2022 Tobacco use and exposure Never used [facility] Start: 08-14-2020 End: 10-13-2020 Alcohol intake Lifetime non-drinker (finding) [facility] Start: 08-14-2020 End: 09-23-2020 History SDOH Alcohol Frequency 1 [facility] Start: 1993 Sex Assigned At Not on file [facility] Start: 03-20-2022 End: 10-09-2022 Exposure to SARS-CoV-2 (event) Not sure [facility] Tobacco smoking status [facility] Start: 09-23-2020 End: 10-09-2022 Sex Assigned At Female [facility] Start: 04-02-2022 End: 10-09-2022 Alcohol intake Current drinker of alcohol (finding) [facility] Start: 04-02-2022 Alcohol Comment Occasional drinks. Not very often. [facility] Start: 08-25-2022 Alcohol Comment socially [facility] Start: 09-23-2020 End: 10-09-2022 History of Social function [facility] How often to you hav e a drink containing alcohol? Never [facility] Start: 09-25-2020 Gender identity Identifies as female gender (finding) [facility] Start: 09-25-2020 Sexual orientation Heterosexual (finding) [facility] Medical Equipment Procedure Code Equipment Code Equipment Origin al Text Equipment Identifier Dates Cath 2.5in Expan rajwinder On-Q [facility] - [id number]_[facility] Start: 09-26-2020 Kit 4ml Vh S/D T isseel - [id number]_[facility] Start: 09-26-2020 Pump 600ml Dual On-Q Ntkokj-S-Hony - [id number]_[facility] Start: 09-26-2020 Barrier 3 X 4in Adhesion Tc 7 Interceed - [id number]_[facility] Start: 09-26-2020 Functional Status Date Assessment Result Facility 10-02-2022 Functional Status N/A [facility] 08-14-2022 Functional Status N/A [facility] 08-05-2022 Functional Status N/A [facility] Clinical Notes 12-31-2021 to 05-31-2023 Telephone Encounter - Ann Marie Miller RN - 05/31/2023 5:32 PM EDTTelephone Encounter - Ann Marie Miller RN - 05/31/2023 5:32 PM Grupo Butler DO - 10/28/2022 3:19 PM EDTPatient InstructionsRadiology Note Date & Type Note Facility 05-31-2023 Telephone encounter Note Pt left message on Refill line requesting refill of Urogesic blue. Pt has annual scheduled on 09/29/23. Request routed to Melissa Meeks [employer] for approval. [facility] 05-31-2023 Miscellaneous Notes Pt left message on Refill line requesting refill of Urogesic blue. Pt has annual scheduled on 09/29/23. [facility] documented in this encounter [facility] 10-28-2022 Note HNO ID: [id number] Author: Fernanda Butler DO Service: ? Author Type: Physician Type: Progress Notes Filed: 11/04/2022 7:53 PM Note Text: BREAST SURGERY REASON FOR TODAY'S VISIT: Patient presents with: Breast Problem I have communicated my name and active licensure. The patient's identity and physical location were verified at the time of this visit. Either the patient or their legal contracts representative has been informed of the risks and benefits of -- and alternatives to -- treatment through a remote evaluation and consents to proceed with the evaluation remotely. INTERVAL HISTORY: Fernanda reports she is still having nipple discharge - spontaneous at times, but increased with manipulation. She feels fullness and engorgement of her right breast and then routinely manipulates her right breast in the shower she is able to drain olive oil green thick discharge. She still endorses pain associated with fullness, but has not tried any conservative measures as she tries to avoid medications. She denies left nipple discharge or left breast pain. Mammogram, US, and MRI performed on 10/07/2022 were negative. HISTORY: Fernanda Cha is a 26 year old female who presents with her boyfriend Jose Luis to the [facility] for an opinion regarding right nipple discharge and possible right breast mass. She has history of right nipple discharge in 2020, workup included MMG, US, MRI, and she underwent right duct excision. She recalls hearing papilloma as diagnosis. She noticed 5 months ago a feeling of fullness in her right breast with subsequent nipple discharge, leading to a feeling of letdown , as she did when she was previously years ago. She feels uncomfortable in a bra, but also not supported without one. Right nipple discharge is primarily spontaneous, thick olive oil color (brown/yellow/orange), may have been darker when it first started. Right breast discomfort is not cyclical in nature. She started on OCPs 6 weeks ago. Her mother was diagnosed at age 28 with breast cancer, not had genetic testing, is currently age 53. BREAST HISTORY Her past breast history (prior to this encounter) is as follows: Breast Biopsies: negative for malignancy for duct excisional Breast Surgeries: Right duct excision 10/2020 Gynecologic History: Menarche 11, Menopause n/a, , prior hormonal contraception - currently on oral contraceptives x 6 weeks Smoker: no As part of today's visit, I have reviewed and updated as necessary: Current medication list, Past Medical History, Past Surgical History, Allergies, Family History, Social History, and OBGYN History FAMILY HISTORY: The patient is not of Ashkenazic Ancestry Breast cancer: Mother - diagnosed in her 20s Colon cancer:Maternal Uncle Uterine cancer: maternal grandmother REVIEW OF SYSTEMS: GENERAL: No weight loss, malaise or fevers HEENT: No changes in hearing or vision, no nose bleeds or other nasal problems, Head Positive for headache RESPIRATORY: Negative for cough, hemoptysis, wheezing, COPD, dyspnea or shortness of breath CARDIOVASCULAR: Negative for chest pain, leg swelling, hypertension, CHF or palpitations GASTROINTESTINAL: No nausea, vomiting, or diarrhea and No heartburn or reflux symptoms GENITOURINARY: Positive for frequency received bladder installations for interstitial cystitis GYNECOLOGICAL: Negative for abnormal vaginal bleeding, abnormal vaginal discharge MUSCULOSKELETAL: Negative for joint pain or swelling, back pain or muscle pain INTEGUMENTARY:Denies Scleroderma or Lupus. Denies chronic skin conditions. PSYCHOLOGICAL: Negative for sleep disturbance, mood disorder and recent psychosocial stressors. All other reviewed and negative other than HPI. I reviewed the PMH, PSH, FHx, SHx, OBHx, and agree with the above. I reviewed the HPI and ROS in detail with the Patient and edited as above. PHYSICAL EXAM: There were no vitals taken for this visit. ECOG PERFORMANCE STATUS: 0- Fully active, able to carry on all pre-disease performance w/o restriction. Physical Exam: Constitutional: well nourished, no distress, appears stated age HEENT: PERRL, conjunctiva/corneas clear, EOM's grossly intact Respiratory: respirations unlabored Cardiovascular: well perfused Skin: Skin color normal, warm, dry, no rashes Neurologic: alert and oriented, follows simple/complex commands Psych: mood and affect normal and appropriate RADIOGRAPHIC FINDINGS: I have independently and personally reviewed the patient's breast imaging, specifically mammogram, ultrasound, and MRI from 10/07/2022. PATHOLOGY RESULTS: previous pathology report unavailable (2020) IMPRESSION : Fernanda Cha is a 26 year old female with a right Nipple Discharge. (N64.4) Breast pain, right (primary encounter diagnosis) (N64.52) Nipple discharge PLAN: Fernanda continues to have right nipple discharge, but is (more content not included)... [facility] 10-28-2022 History of Present illness Narrative BREAST SURGERY REASON FOR TODAY'S VISIT: Patient presents with: Breast Problem I have communicated my name and active licensure. The patient's identity and physical location were verified at the time of this visit. Either the patient or their legal contracts representative has been informed of the risks and benefits of -- and alternatives to -- treatment through a remote evaluation and consents to proceed with the evaluation remotely. INTERVAL HISTORY: Fernanda reports she is still having nipple discharge - spontaneous at times, but increased with manipulation. She feels fullness and engorgement of her right breast and then routinely manipulates her right breast in the shower she is able to drain olive oil green thick discharge. She still endorses pain associated with fullness, but has not tried any conservative measures as she tries to avoid medications. She denies left nipple discharge or left breast pain. Mammogram, US, and MRI performed on 10/07/2022 were negative. HISTORY: Fernanda Cha is a 26 year old female who presents with her boyfriend Jose Luis to the [facility] for an opinion regarding right nipple discharge and possible right breast mass. She has history of right nipple discharge in 2020, workup included MMG, US, MRI, and she underwent right duct excision. She recalls hearing papilloma as diagnosis. She noticed 5 months ago a feeling of fullness in her right breast with subsequent nipple discharge, leading to a feeling of letdown , as she did when she was previously years ago. She feels uncomfortable in a bra, but also not supported without one. Right nipple discharge is primarily spontaneous, thick olive oil color (brown/yellow/orange), may have been darker when it first started. Right breast discomfort is not cyclical in nature. She started on OCPs 6 weeks ago. Her mother was diagnosed at age 28 with breast cancer, not had genetic testing, is currently age 53. BREAST HISTORY Her past breast history (prior to this encounter) is as follows: Breast Biopsies: negative for malignancy for duct excisional Breast Surgeries: Right duct excision 10/2020 Gynecologic History: Menarche 11, Menopause n/a, , prior hormonal contraception - currently on oral contraceptives x 6 weeks Smoker: no As part of today's visit, I have reviewed and updated as necessary: Current medication list, Past Medical History, Past Surgical History, Allergies, Family History, Social History, and OBGYN History FAMILY HISTORY: The patient is not of Ashkenazic Ancestry Breast cancer: Mother - diagnosed in her 20s Colon cancer:Maternal Uncle Uterine cancer: maternal grandmother REVIEW OF SYSTEMS: GENERAL: No weight loss, malaise or fevers HEENT: No changes in hearing or vision, no nose bleeds or other nasal problems, Head Positive for headache RESPIRATORY: Negative for cough, hemoptysis, wheezing, COPD, dyspnea or shortness of breath CARDIOVASCULAR: Negative for chest pain, leg swelling, hypertension, CHF or palpitations GASTROINTESTINAL: No nausea, vomiting, or diarrhea and No heartburn or reflux symptoms GENITOURINARY: Positive for frequency received bladder installations for interstitial cystitis GYNECOLOGICAL: Negative for abnormal vaginal bleeding, abnormal vaginal discharge MUSCULOSKELETAL: Negative for joint pain or swelling, back pain or muscle pain INTEGUMENTARY:Denies Scleroderma or Lupus. Denies chronic skin conditions. PSYCHOLOGICAL: Negative for sleep disturbance, mood disorder and recent psychosocial stressors. All other reviewed and negative other than HPI. I reviewed the PMH, PSH, FHx, SHx, OBHx, and agree with the above. I reviewed the HPI and ROS in detail with the Patient and edited as above. PHYSICAL EXAM: There were no vitals taken for this visit. ECOG PERFORMANCE STATUS: 0- Fully active, able to carry on all pre-disease performance w/o restriction. Physical Exam: Constitutional: well nourished, no distress, appears stated age HEENT: PERRL, conjunctiva/corneas clear, EOM's grossly intact Respiratory: respirations unlabored Cardiovascular: well perfused Skin: Skin color normal, warm, dry, no rashes Neurologic: alert and oriented, follows simple/complex commands Psych: mood and affect normal and appropriate RADIOGRAPHIC FINDINGS: I have independently and personally reviewed the patient's breast imaging, specifically mammogram, ultrasound, and MRI from 10/07/2022. PATHOLOGY RESULTS: previous pathology report unavailable (2020) IMPRESSION : Fernanda Cha is a 26 year old female with a right Nipple Discharge. (N64.4) Breast pain, right (primary encounter diagnosis) (N64.52) Nipple discharge PLAN: Fernanda continues to have right nipple discharge, but is actively manipulating the right breast on a daily basis. We discussed that the cycle of manipulation may be perpetuating discharge. I encouraged her to stop all manipulation. Green color discharge is most likely physiologic with negative triple modal screening. I discussed role of repeat duct excision, but do not advise this in setting of continued manipulation. We discussed conservative measures to treat breast pain. She feels a bit frustrated and does not feel these will be helpful. I recommended tylenol PRN, snug/supportive bra, heating pad, voltaren cream. We briefly discussed role of Vitamin E or evening primrose oil but these can take up to 6 weeks to take effect. I offered her consultation with another provider for a 2nd opinion. She could establish with our Medical Breast team to continue high risk management given her mother's young age at breast cancer diagnosis. She declined to schedule a follow-up at this time and will call to let us know how she would like to proceed. Fernanda uBtler DO Breast Surgery All questions were answered and the patient had no further concerns at this time Ms. Cha was given our contact information if she has any further questions or concerns. My final recommendation will be communicated back to the referring physician by way of shared medical record and/or written letter via [place] mail. I spent 20 minutes in the visit, with more than 50% of the total vngy-yw-gxeb (virtual) time of the visit in counseling / coordination of care. documented in this encounter [facility] 10-12-2022 Miscellaneous Notes Attempted to reach patient re: appointment. No answer. Message left with callback number. Bella Barrera RN documented in this encounter [facility] 10-09-2022 History of Present illness Narrative [facility] [address] [id number] Bladder Instillation Fernanda Cha is a 26 y.o. female presenting today for bladder instillation. Procedure explained and patient verbalized understanding. Patient voided. Patient catheterized per standard sterile procedure. A solution consisting of Heparin 40,000 IU, ropivacaine 0.5% 10 cc, Sodium bicarbonate 8.4% 3 mL., kenalog 25 mg instilled into bladder. The catheter was removed. Patient was instructed to retain the solution in the bladder for a minimum 20-30 minutes, if possible, and to void it out anytime thereafter. Procedure well tolerated by the patient. The patient was discharged in satisfactory condition. Problem List Items Addressed This Visit Genitourinary Interstitial cystitis - Primary Relevant Medications methen-sod phos-meth blue-hyos (Urogesic-Blue) 81.6-40.8-0.12 mg Tab heparin (porcine) injection 40,000 Units (Start on 10/09/2022 12:30 PM) sodium bicarbonate 8.4 % (1 mEq/mL) injection 3 mEq (Start on 10/09/2022 12:30 PM) triamcinolone acetonide (KENALOG) injection 25 mg (Start on 10/09/2022 12:30 PM) ropivacaine in 0.9% sod chl/PF (ROPivacaine,PF,-0.9 % sodchlor) 150 mg/30 mL (5 mg/mL) 0.5 % Syrg Return for IC tx. Marlys Meeks CNP 10/09/22 11:41 AM documented in this encounter [facility] 10-09-2022 Instructions Marlys Meeks CNP - 10/09/2022 11:35 AM EST What is interstitial cystitis/bladder pain syndrome? Interstitial cystitis (up-niy-[facility]pl[facility] s?-st? t?s)/bladder pain syndrome, or as we call it, IC/BPS, is a bladder condition that usually consists of multiple symptoms. Most IC/BPS patients have recurring pelvic pain, pressure, or discomfort in the bladder and pelvic region, and urinary frequency (needing to go often) and urgency (feeling a strong need to go). IC may also be referred to as painful bladder syndrome (PBS), bladder pain syndrome (BPS), and chronic pelvic pain. Types of IC/BPS Researchers continue to study IC/BPS and investigate why IC/BPS symptoms can be different in different patients. Many believe that there may be additional subtypes, called phenotypes, of IC/BPS. This also helps to explain why there is such disparity in how IC/BPS patients respond to treatments. Of note is the national phenotyping initiative called the [employer] Research Network, which is supported by N[employer]DK, part of the National [employer] of [employer]. Currently there are two recognized subtypes of IC/BPS: non-ulcerative and ulcerative. Non-ulcerative: 90% of IC/BPS patients have the non-ulcerative form of IC/BPS. Non-ulcerative IC/BPS presents with pinpoint hemorrhages, also known as glomerulations, in the bladder wall. However, these are not specific for IC/BPS and any inflammation of the bladder can give that appearance. Ulcerative: 5 to 10% of IC/BPS patients have the ulcerative form of IC/BPS. These patients usually have Hunner s ulcers or patches, which are red, bleeding areas on the bladder wall. INTRODUCTION Interstitial cystitis/bladder pain syndrome (IC/BPS) is a group of symptoms including mild to severe bladder pain and an urgent and/or frequent need to urinate. The disorder can affect women and men but is more common in women. It can be difficult to diagnose and treat because the underlying cause is not well understood. The symptoms and diagnosis of IC/BPS will be discussed here. Treatment of this disorder is reviewed separately. DEFINITIONS The definition of interstitial cystitis/bladder pain syndrome (IC/BPS) has evolved over the years and will probably continue to change as the cause is better understood. The [place] [employer] (AUA) defines IC/BPS as an unpleasant sensation (pain, pressure, discomfort) perceived to be related to the urinary bladder, associated with lower urinary tract symptoms of more than six weeks duration, in the absence of infection of other identifiable causes. It is difficult to know for sure how many people are affected by IC/BPS, but research indicates that IC/BPS symptoms occur in about 2 percent of women. However, many fewer than that are diagnosed with the disorder, perhaps because it is unrecognized. PAINFUL BLADDER CAUSES Little is known about the cause of interstitial cystitis/bladder pain syndrome (IC/BPS). Many studies have shown that patients with this disorder have abnormalities in the lining of the bladder. However, it is not known if these bladder abnormalities are the cause of symptoms or if the abnormalities develop as a result of some unknown underlying disorder that also causes painful bladder symptoms. It is likely that the nerves in the bladder become highly sensitive to pain and pressure as IC/BPS develops. Nerves outside the bladder, including nerves of the abdomen, pelvis, and hips, and legs, may also become more sensitive. One or more events may lead to the symptoms of IC/BPS, including: ?Urinary tract infection ?An episode of vaginitis or prostatitis (eg, an infection of the vagina or a bacterial infection of the prostate) ?Bladder, pelvic, back, or other type of surgery ?Trauma (eg, fall onto the tailbone [coccyx] or car accident) However, in many people, there is no clear explanation for why or how the symptoms of IC/BPS first began. PAINFUL BLADDER SYMPTOMS The symptoms of interstitial cystitis/bladder pain syndrome (IC/BPS) can vary from one person to another and from one episode to another. All patients with IC/BPS have bladder pain that is relieved at least partially by urinating. Symptoms usually include a frequent and urgent need to urinate during the day and/or night. Most, although not all, people with IC/BPS do not have urinary leakage (incontinence). Most people describe pain in the suprapubic area (in the lower abdomen, above the pubic bone) or urethral area (figure 1). The severity of pain ranges from mild burning to severe and debilitating pelvic pain. Most people describe symptoms that begin gradually, with worsening discomfort, urgency, and frequency over a period of months. A smaller subset of patients describes symptoms that are severe from the beginning. When symptoms of IC/BPS begin suddenly, some patients are able to name the exact date on which symptoms began. (See 'Painful bladder causes' above.) Some people with IC/BPS also have other types of chronic pain, such as irritable bowel syndrome, painful menstrual periods, endometriosis, vulvar pain (vulvodynia), fibromyalgia, or prostatitis. IC/BPS symptoms are sometimes at their worst during times when other pain symptoms are also at their worst. Symptoms may vary from one day to the next. Worsening of IC/BPS symptoms may occur after consuming certain foods or drinks (eg, coffee, alcoholic drinks, spicy foods), during the luteal phase of the menstrual cycle (14 to 28 days after the first day of the last period), during stressful times, or after activities such as exercise, sexual intercourse, or being seated for long periods of time (eg, during a plane trip). A person with severe disease may have to urinate several times per hour, which can seriously disrupt daily activities and sleep. As a result of these symptoms, home and work life are often disrupted, interest in sex may be minimal, and the person may have difficulty coping with chronic pain and fatigue. In surveys, 50 percent of patients reported being unable to work time recorder, 75 percent described pain with intercourse, 70 percent reported sleep disturbance, and 90 percent reported that IC/BPS affected their daily activities [1]. DiscussedBladder irritants What are bladder irritants? -Bladder irritants are substances found in some foods and drinks. These substance can cause you to pass your urine more often and may cause bladder spasms making it difficulty to control the leaking of urine throughout the day. List of foods and drinks that are bladder irritants: -Drinks with caffeine (cola, coffee and tea) -Medicines with caffeine (sdmg-qkw-svjxenw medications like cough medicine) -Carbonated drinks (soda and tonic water) -Drinks that contain alcohol -Spicy food -Tomatoes and foods that contain tomatoes -Sugar, honey and corn syrup -Karnes fruits and drinks (oranges, grapefruit, pineapple and octavio) -Milk in foods that contain male List of foods and during substitute These foods and drinks are not very irritating to the bladder -Warm broth -Herbal coffee substitutes (like Dandy Blend) -White chocolate -Low acid tomatoes -Grapes, apples, pears and papayas How much should I be drinking? It is important to drink. Reducing the amount of liquid you drink can cause the lining of your bladder to become irritated. You should drinks 6-8 (8 ounce) glasses of liquid (water is best) each day. Drink more when it is hot or when you are exercising. If you are drinking the right amount of water your urine should be pale yellow. If you feel the need to pass urien more than every 2 hours: -Relax and several deep breaths. Wait until the urge passes and the go back to your normal activities -Stand still or sit down until the urge passes. -Squeeze and release your pelvic floor muscles 5 or 6 times until the urge to pass your urine goes away. -Count backward from 100, prn uribel. Reviewed Amitriptyline, cimetidine, hydroxyzine, or pentosan polysulfate may be administered as second-line oral medications and pain control with gabapentin.DMSO, heparin, and/or lidocaine may be administered as intravesical treatments. Discussed pelvic floor PT and prn oxybutynin. webstie and pamphlet given. https://www.urologyhealth.org/ed ucational-resources/interstitial -cystitis/uzxidcy-zucy-fqkisacx www.ichelp.org documented in this encounter [facility] 10-07-2022 Note HNO ID: [id number] Author: RT Catherine(R) Service: ? Author Type: Technologist Type: Progress Notes Filed: 10/07/2022 11:42 AM Note Text: Radiology Service Progress Note PATIENT NAME: Fernanda Cha DATE OF SERVICE: October 07, 2022 TIME: 11:41 AM PATIENT IDENTITY VERIFICATION COMPLETED USING TWO (2) IDENTIFIERS: Name and Date of confirmed by patient verbally. FALL SCREENING: Has the patient had 2 falls in the last year or 1 fall with injury or currently using an Ambulatory Assistive Device (Walker, Cane, Wheelchair, Crutches, etc.)? No PATIENT GENDER DATA: Female. status: : No status: NO. PATIENT RELEVANT IMPLANT DATA REVIEWED: Not Applicable RADIOLOGY DEPARTMENT: Mammography PERIPHERAL IV DATA: Not applicable SIGNED BY: RT Catherine(R) October 07, 2022 11:41 AM [facility] 10-07-2022 Note HNO ID: [id number] Author: RT Emma(R) Service: Radiology Author Type: Museum Exhibit Designer Type: Progress Notes Filed: 10/07/2022 8:09 AM Note Text: Radiology Service Progress Note DATE OF SERVICE: October 07, 2022 TIME: 7:59 AM PATIENT IDENTITY VERIFICATION COMPLETED USING TWO (2) STANDARD IDENTIFIERS: Name and Date of confirmed by patient verbally. FALL SCREENING: Has the patient had 2 falls in the last year or 1 fall with injury or currently using an Ambulatory Assistive Device (Walker, Cane, Wheelchair, Crutches, etc.)? No PATIENT GENDER DATA: Female. status: : No status: NO. PATIENT RELEVANT IMPLANT DATA REVIEWED: Yes ALLERGIES: Reviewed and unchanged CONTRAST ALLERGY: NO. EXAM: MRI - CONTRAST TYPE: GROUP II PERIPHERAL IV DATA: Ambulatory: A peripheral IV was started in the Left antecubital site with a Angio cath: 22 gauge. RADIOLOGY DEPARTMENT: MR; Exam(s) Completed: Chest: Breast SIGNATURE: RT Emma(R) PATIENT NAME: Fernanda Cha DATE: October 07, 2022 TIME: 7:59 AM [facility] 10-07-2022 History of Present illness Narrative Radiology Service Progress Note DATE OF SERVICE: October 07, 2022 TIME: 7:59 AM PATIENT IDENTITY VERIFICATION COMPLETED USING TWO (2) STANDARD IDENTIFIERS: Name and Date of confirmed by patient verbally. FALL SCREENING: Has the patient had 2 falls in the last year or 1 fall with injury or currently using an Ambulatory Assistive Device (Walker, Cane, Wheelchair, Crutches, etc.)? No PATIENT GENDER DATA: Female. status: : No status: NO. PATIENT RELEVANT IMPLANT DATA REVIEWED: Yes ALLERGIES: Reviewed and unchanged CONTRAST ALLERGY: NO. EXAM: MRI - CONTRAST TYPE: GROUP II PERIPHERAL IV DATA: Ambulatory: A peripheral IV was started in the Left antecubital site with a Angio cath: 22 gauge. RADIOLOGY DEPARTMENT: MR; Exam(s) Completed: Chest: Breast SIGNATURE: RT Emma(R) PATIENT NAME: Fernanda Cha DATE: October 07, 2022 TIME: 7:59 AM documented in this encounter [facility] 10-02-2022 Hospital Discharge instructions Patient Education 10/02/2022 18:25:37 Gastritis, Adult Gastritis, Adult Gastritis is inflammation of the stomach. There are two kinds of gastritis: Acute gastritis. This kind develops suddenly. Chronic gastritis. This kind is much more common and lasts for a long time. Gastritis happens when the lining of the stomach becomes weak or gets damaged. Without treatment, gastritis can lead to stomach bleeding and ulcers. What are the causes? This condition may be caused by: An infection. Drinking too much alcohol. Certain medicines. These include steroids, antibiotics, and some voju-gpf-htbctye medicines, such as aspirin or ibuprofen. Having too much acid in the stomach. A disease of the intestines or stomach. Stress. An allergic reaction. Crohn's disease. Some cancer treatments (radiation). Sometimes the cause of this condition is not known. What are the signs or symptoms? Symptoms of this condition include: Pain or a burning sensation in the upper abdomen. Nausea. Vomiting. An uncomfortable feeling of fullness after eating. Weight loss. Bad breath. Blood in your vomit or stools. In some cases, there are no symptoms. How is this diagnosed? This condition may be diagnosed with: Your medical history and a description of your symptoms. A physical exam. Tests. These can include: ?Blood tests. ?Stool tests. ?A test in which a thin, flexible instrument with a light and a camera is passed down the esophagus and into the stomach (upper endoscopy). ?A test in which a sample of tissue is taken for testing (biopsy). How is this treated? This condition may be treated with medicines. The medicines that are used vary depending on the cause of the gastritis: If the condition is caused by a bacterial infection, you may be given antibiotic medicines. If the condition is caused by too much acid in the stomach, you may be given medicines called H2 blockers, proton pump inhibitors, or antacids. Treatment may also involve stopping the use of certain medicines, such as aspirin, ibuprofen, or other NSAIDs. Follow these instructions at home: Medicines Take qxqk-jog-sqgdifo and prescription medicines only as told by your health care provider. If you were prescribed an antibiotic medicine, take it as told by your health care provider. Do not stop taking the antibiotic even if you start to feel better. Eating and drinking Eat small, frequent meals instead of large meals. Avoid foods and drinks that make your symptoms worse. Drink enough fluid to keep your urine pale yellow. Alcohol use Do not drink alcohol if: ?Your health care provider tells you not to drink. ?You are , may be , or are planning to become . If you drink alcohol: ?Limit your use to: ?0 1 drink a day for women. ?0 2 drinks a day for men. ?Be aware of how much alcohol is in your drink. In the [place] one drink equals one 12 oz bottle of beer (355 mL), one 5 oz glass of wine (148 mL), or one 1 oz glass of hard liquor (44 mL). General instructions Talk with your health care provider about ways to manage stress, such as getting regular exercise or practicing deep breathing, meditation, or yoga. Do not use any products that contain nicotine or tobacco, such as cigarettes and e-cigarettes. If you need help quitting, ask your health care provider. Keep all follow-up visits as told by your health care provider. This is important. Contact a health care provider if: Your symptoms get worse. Your symptoms return after treatment. Get help right away if: You vomit blood or material that looks like coffee grounds. You have black or dark red stools. You are unable to keep fluids down. Your abdominal pain gets worse. You have a fever. You do not feel better after one week. Summary Gastritis is inflammation of the lining of the stomach that can occur suddenly (acute) or develop slowly over time (chronic). This condition is diagnosed with a medical history, a physical exam, or tests. This condition may be treated with medicines to treat infection or medicines to reduce the amount of acid in your stomach. Follow your health care provider's instructions about taking medicines, making changes to your diet, and knowing when to call for help. This information is not intended to replace advice given to you by your health care provider. Make sure you discuss any questions you have with your health care provider. Document Released: 07/13/2002 Document Revised: 12/06/2018 Document Reviewed: 12/06/2018 [employer] Patient Education 2020 [employer]. Follow Up Care 10/02/2022 13:55:10 With:Malcolm LU Address: [address] [place] [address]. [address] [place] [address] [facility] (1) When:10/05/2022 17:57:54 With:Maryann Rashid Address:Unknown When:10/05/2022 17:57:51 [facility] 08-25-2022 Note HNO ID: [id number] Author: Fernanda Butler, DO Service: ? Author Type: Physician Type: Progress Notes Filed: 08/25/2022 4:56 PM Note Text: NEW BREAST CONSULTATION SERVICE DATE: 08/24/2022 Consultation requested by Marie So for an opinion regarding Fernanda Cha. REASON FOR TODAY'S VISIT: Patient presents with: Breast Problem HISTORY AND CHIEF COMPLAINT: Fernanda Cha is a 26 year old female who presents with her boyfriend Jose Luis to the [facility] for an opinion regarding right nipple discharge and possible right breast mass. She has history of right nipple discharge in 2020, workup included MMG, US, MRI, and she underwent right duct excision. She recalls hearing papilloma as diagnosis. She noticed 5 months ago a feeling of fullness in her right breast with subsequent nipple discharge, leading to a feeling of letdown , as she did when she was previously years ago. She feels uncomfortable in a bra, but also not supported without one. Right nipple discharge is primarily spontaneous, thick olive oil color (brown/yellow/orange), may have been darker when it first started. Right breast discomfort is not cyclical in nature. She started on OCPs 6 weeks ago. Her mother was diagnosed at age 28 with breast cancer, not had genetic testing, is currently age 53. Fernanda edmondson BREAST HISTORY Her past breast history (prior to this encounter) is as follows: Breast Biopsies: negative for malignancy for duct excisional Breast Surgeries: Right duct excision 10/2020 Gynecologic History: Menarche 11, Menopause n/a, , prior hormonal contraception - currently on oral contraceptives x 6 weeks Smoker: no As part of today's visit, I have reviewed and updated as necessary: Current medication list, Past Medical History, Past Surgical History, Allergies, Family History, Social History, and OBGYN History FAMILY HISTORY: The patient is not of Ashkenazic Ancestry Breast cancer: Mother - diagnosed in her 20s Colon cancer:Maternal Uncle Uterine cancer: maternal grandmother REVIEW OF SYSTEMS: GENERAL: No weight loss, malaise or fevers HEENT: No changes in hearing or vision, no nose bleeds or other nasal problems, Head Positive for headache RESPIRATORY: Negative for cough, hemoptysis, wheezing, COPD, dyspnea or shortness of breath CARDIOVASCULAR: Negative for chest pain, leg swelling, hypertension, CHF or palpitations GASTROINTESTINAL: No nausea, vomiting, or diarrhea and No heartburn or reflux symptoms GENITOURINARY: Positive for frequency received bladder installations for interstitial cystitis GYNECOLOGICAL: Negative for abnormal vaginal bleeding, abnormal vaginal discharge MUSCULOSKELETAL: Negative for joint pain or swelling, back pain or muscle pain INTEGUMENTARY:Denies Scleroderma or Lupus. Denies chronic skin conditions. PSYCHOLOGICAL: Negative for sleep disturbance, mood disorder and recent psychosocial stressors. All other reviewed and negative other than HPI. I reviewed the PMH, PSH, FHx, SHx, OBHx, and agree with the above. I reviewed the HPI and ROS in detail with the Patient and edited as above. PHYSICAL EXAM: Ht 160 cm (5' 3 ) Wt 64.9 kg (143 lb) BMI 25.33 kg/m? ECOG PERFORMANCE STATUS: 0- Fully active, able to carry on all pre-disease performance w/o restriction. Physical Exam: Constitutional: well nourished, no distress, appears stated age HEENT: PERRL, conjunctiva/corneas clear, EOM's grossly intact Respiratory: respirations unlabored Cardiovascular: Regular rate GI: Soft Musculoskeletal: Extremities normal, normal gait. Normal range of motion of bilateral upper extremities Skin: Skin color normal, warm, dry, no rashes Neurologic: alert and oriented, follows simple/complex commands Psych: mood and affect normal and appropriate Lymphatics: no evidence of palpable cervical, supraclavicular or axillary adenopathy Breast: Breasts were examined in both the seated and supine positions. Nipples are everted bilaterally without evidence of discharge or nipple retraction. Symmetric B cup breasts with mild skin laxity; fairly symmetric dense fibroglandular tissue bilaterally, predominantly UOQs, possible bilateral cyst vs mass in UOQ vs dense breast tissue; well healed right superolateral periareolar scar with mild tissue loss beneath; RADIOGRAPHIC FINDINGS: The patient's ultrasound was reviewed. I have independently and personally reviewed the patient's breast imaging, specifically ultrasound images noted below. 08/10/2022 - right breast US PATHOLOGY RESULTS: previous pathology report unavailable (2020) IMPRESSION : Fernanda Cha is a 26 year old female with a right Nipple Discharge. (N63.11) Mass of upper outer quadrant of right breast (primary encounter diagnosis) Plan: MRI BREAST WO/W IVCON BILAT, US BREAST LTD RT, [facility] DIAGNOSTIC BILAT (N64.52) Nipple discharge Plan: MRI B (more content not included)... [facility] 08-25-2022 Nurse Note Reason for today's visit:surgical consult for right breast pain and growing lump Mammogram film location: [facility] Medical/Surgical history reviewed and documented in EPIC Palpates a breast change? Yes Nipple discharge? Yes, vidal/black now thick, yellow Swelling in either upper extremity? Yes, into the axilla Exercise? Yes Advanced Directives? no Managing stress: Stress level on a scale of 1 - 10:1 Bra Size: 36D Pacemaker: no anticoagulants: no Do you follow with a pomologist on a regular basis? No Instruction: Monthly self breast exams Exercise routine Healthy diet Patient stated understanding of information received today. documented in this encounter [facility] 08-25-2022 History of Present illness Narrative NEW BREAST CONSULTATION SERVICE DATE: 08/24/2022 Consultation requested by Marie So for an opinion regarding Fernanda Cha. REASON FOR TODAY'S VISIT: Patient presents with: Breast Problem HISTORY AND CHIEF COMPLAINT: Fernanda Cha is a 26 year old female who presents with her boyfriend Jose Luis to the [facility] for an opinion regarding right nipple discharge and possible right breast mass. She has history of right nipple discharge in 2020, workup included MMG, US, MRI, and she underwent right duct excision. She recalls hearing papilloma as diagnosis. She noticed 5 months ago a feeling of fullness in her right breast with subsequent nipple discharge, leading to a feeling of letdown , as she did when she was previously years ago. She feels uncomfortable in a bra, but also not supported without one. Right nipple discharge is primarily spontaneous, thick olive oil color (brown/yellow/orange), may have been darker when it first started. Right breast discomfort is not cyclical in nature. She started on OCPs 6 weeks ago. Her mother was diagnosed at age 28 with breast cancer, not had genetic testing, is currently age 53. Fernanda edmondson BREAST HISTORY Her past breast history (prior to this encounter) is as follows: Breast Biopsies: negative for malignancy for duct excisional Breast Surgeries: Right duct excision 10/2020 Gynecologic History: Menarche 11, Menopause n/a, , prior hormonal contraception - currently on oral contraceptives x 6 weeks Smoker: no As part of today's visit, I have reviewed and updated as necessary: Current medication list, Past Medical History, Past Surgical History, Allergies, Family History, Social History, and OBGYN History FAMILY HISTORY: The patient is not of Ashkenazic Ancestry Breast cancer: Mother - diagnosed in her 20s Colon cancer:Maternal Uncle Uterine cancer: maternal grandmother REVIEW OF SYSTEMS: GENERAL: No weight loss, malaise or fevers HEENT: No changes in hearing or vision, no nose bleeds or other nasal problems, Head Positive for headache RESPIRATORY: Negative for cough, hemoptysis, wheezing, COPD, dyspnea or shortness of breath CARDIOVASCULAR: Negative for chest pain, leg swelling, hypertension, CHF or palpitations GASTROINTESTINAL: No nausea, vomiting, or diarrhea and No heartburn or reflux symptoms GENITOURINARY: Positive for frequency received bladder installations for interstitial cystitis GYNECOLOGICAL: Negative for abnormal vaginal bleeding, abnormal vaginal discharge MUSCULOSKELETAL: Negative for joint pain or swelling, back pain or muscle pain INTEGUMENTARY:Denies Scleroderma or Lupus. Denies chronic skin conditions. PSYCHOLOGICAL: Negative for sleep disturbance, mood disorder and recent psychosocial stressors. All other reviewed and negative other than HPI. I reviewed the PMH, PSH, FHx, SHx, OBHx, and agree with the above. I reviewed the HPI and ROS in detail with the Patient and edited as above. PHYSICAL EXAM: Ht 160 cm (5' 3 ) Wt 64.9 kg (143 lb) BMI 25.33 kg/m ECOG PERFORMANCE STATUS: 0- Fully active, able to carry on all pre-disease performance w/o restriction. Physical Exam: Constitutional: well nourished, no distress, appears stated age HEENT: PERRL, conjunctiva/corneas clear, EOM's grossly intact Respiratory: respirations unlabored Cardiovascular: Regular rate GI: Soft Musculoskeletal: Extremities normal, normal gait. Normal range of motion of bilateral upper extremities Skin: Skin color normal, warm, dry, no rashes Neurologic: alert and oriented, follows simple/complex commands Psych: mood and affect normal and appropriate Lymphatics: no evidence of palpable cervical, supraclavicular or axillary adenopathy Breast: Breasts were examined in both the seated and supine positions. Nipples are everted bilaterally without evidence of discharge or nipple retraction. Symmetric B cup breasts with mild skin laxity; fairly symmetric dense fibroglandular tissue bilaterally, predominantly UOQs, possible bilateral cyst vs mass in UOQ vs dense breast tissue; well healed right superolateral periareolar scar with mild tissue loss beneath; RADIOGRAPHIC FINDINGS: The patient's ultrasound was reviewed. I have independently and personally reviewed the patient's breast imaging, specifically ultrasound images noted below. 08/10/2022 - right breast US PATHOLOGY RESULTS: previous pathology report unavailable (2020) IMPRESSION : Fernanda Cha is a 26 year old female with a right Nipple Discharge. (N63.11) Mass of upper outer quadrant of right breast (primary encounter diagnosis) Plan: MRI BREAST WO/W IVCON BILAT, US BREAST LTD RT, [facility]NO[facility]IC BILAT (N64.52) Nipple discharge Plan: MRI BREAST WO/W IVCON BILAT, US BREAST LTD RT, [facility] BILAT (Z80.3) Family history of breast cancer Plan: MRI BREAST WO/W IVCON BILAT, US BREAST LTD RT, [facility] BILAT (Z91.89) At high risk for breast cancer Plan: MRI BREAST WO/W IVCON BILAT, US BREAST LTD RT, [facility] BILAT (N64.4) Mastalgia Plan: MRI BREAST WO/W IVCON BILAT, US BREAST LTD RT, [facility] BIL[facility] PLAN: The Breast Imaging and today's clinical exam were discussed with Patient and partner. I am unable to express nipple discharge today. Bilateral UOQ with palpable fibroglandular densities, no discrete masses. With her significant family history, mother diagnosed at age 28, she qualifies for beginning screening. With addition of her symptomatic right nipple discharge, I recommend full diagnostic workup. Imaging discussed with radiology and bilateral diagnostic mammogram, right breast ultrasound, and breast MRI were requested. All questions were answered and she had no further concerns. Ms. Cha will return for f/u after imaging is completed to discuss whether or not repeat duct excision is necessary. I did advise that her mother consider genetic testing. Fernanda may also be a candidate and we will discuss this further at a later visit. I also introduced the idea of a future visit with our Medical Breast team to continue high risk management. Fernanda Butler, DO Breast Surgery All questions were answered and the patient had no further concerns at this time Ms. Cha was given our contact information if she has any further questions or concerns. My final recommendation will be communicated back to the referring physician by way of shared medical record and/or written letter via [place] mail. I spent 30 minutes in the visit, with more than 50% of the total [id number] time of the visit in counseling / coordination of care. Medical Decision Making: Problems: Moderate: New problem with uncertain prognosis Data: Unique test result(s) reviewed: 1 Unique test(s) ordered: 2 Independent interpretation of test from other physician/QHCP Discussed management or test w/ external physician/QHCP/source Risk: Low: Low risk from testing/treatment Medical Decision Making Level: 4 - Moderate documented in this encounter [facility] 08-05-2022 Hospital Discharge instructions Patient Education 08/05/2022 19:28:45 BMI for Adults BMI for Adults Body mass index (BMI) is a number that is calculated from a person's weight and height. BMI may help to estimate how much of a person's weight is composed of fat. BMI can help identify those who may be at higher risk for certain medical problems. How is BMI used with adults? BMI is used as a screening tool to identify possible weight problems. It is used to check whether a person is obese, overweight, healthy weight, or underweight. How is BMI calculated? BMI measures your weight and compares it to your height. This can be done either in [place] or metric measurements. Note that charts are available to help you find your BMI quickly and easily without having to do these calculations yourself. To calculate your BMI in [place] measurements, your health care provider will: 1.Measure your weight in pounds (lb). 2.Multiply the number of pounds by 703. For example, for a person who weighs 180 lb, multiply that number by 703, which equals 126,540. 3.Measure your height in inches (in). Then multiply that number by itself to get a measurement called inches squared. For example, for a person who is 70 in tall, the inches squared measurement is 70 in x 70 in, which equals 4900 inches squared. 4.Divide the total from Step 2 (number of lb x 703) by the total from Step 3 (inches squared): 126,540 4900 = 25.8. This is your BMI. To calculate your BMI in metric measurements, your health care provider will: 1.Measure your weight in kilograms (kg). 2.Measure your height in meters (m). Then multiply that number by itself to get a measurement called meters squared. For example, for a person who is 1.75 m tall, the meters squared measurement is 1.75 m x 1.75 m, which is equal to 3.1 meters squared. 3.Divide the number of kilograms (your weight) by the meters squared number. In this example: 70 3.1 = 22.6. This is your BMI. How is BMI interpreted? To interpret your results, your health care provider will use BMI charts to identify whether you are underweight, normal weight, overweight, or obese. The following guidelines will be used: Underweight: BMI less than 18.5. Normal weight: BMI between 18.5 and 24.9. Overweight: BMI between 25 and 29.9. Obese: BMI of 30 and above. Please note: Weight includes both fat and muscle, so someone with a muscular build, such as an athlete, may have a BMI that is higher than 24.9. In cases like these, BMI is not an accurate measure of body fat. To determine if excess body fat is the cause of a BMI of 25 or higher, further assessments may need to be done by a health care provider. BMI is usually interpreted in the same way for men and women. Why is BMI a useful tool? BMI is useful in two ways: Identifying a weight problem that may be related to a medical condition, or that may increase the risk for medical problems. Promoting lifestyle and diet changes in order to reach a healthy weight. Summary Body mass index (BMI) is a number that is calculated from a person's weight and height. BMI may help to estimate how much of a person's weight is composed of fat. BMI can help identify those who may be at higher risk for certain medical problems. BMI can be measured using [place] measurements or metric measurements. To interpret your results, your health care provider will use BMI charts to identify whether you are underweight, normal weight, overweight, or obese. This information is not intended to replace advice given to you by your health care provider. Make sure you discuss any questions you have with your health care provider. Document Released: 03/30/2005 Document Revised: 07/01/2018 Document Reviewed: 06/01/2018 [employer] Patient Education 2020 [employer] 08/05/2022 19:28:41 Lymphadenopathy Lymphadenopathy Lymphadenopathy means that your lymph glands are swollen or larger than normal (enlarged). Lymph glands, also called lymph nodes, are collections of tissue that filter bacteria, viruses, and waste from your bloodstream. They are part of your body's disease-fighting system (immune system), which protects your body from germs. There may be different causes of lymphadenopathy, depending on where it is in your body. Some types go away on their own. Lymphadenopathy can occur anywhere that you have lymph glands, including these areas: Neck (cervical lymphadenopathy). Chest (mediastinal lymphadenopathy). Lungs (hilar lymphadenopathy). Underarms (axillary lymphadenopathy). Groin (inguinal lymphadenopathy). When your immune system responds to germs, infection-fighting cells and fluid build up in your lymph glands. This causes some swelling and enlargement. If the lymph glands do not go back to normal after you have an infection or disease, your health care provider may do tests. These tests help to monitor your condition and find the reason why the glands are still swollen and enlarged. Follow these instructions at home: Get plenty of rest. Take myop-kxp-egwbuiy and prescription medicines only as told by your health care provider. Your health care provider may recommend bwzx-sly-okyjsjo medicines for pain. If directed, apply heat to swollen lymph glands as often as told by your health care provider. Use the heat source that your health care provider recommends, such as a moist heat pack or a heating pad. ?Place a towel between your skin and the heat source. ?Leave the heat on for 20 30 minutes. ?Remove the heat if your skin turns bright red. This is especially important if you are unable to feel pain, heat, or cold. You may have a greater risk of getting burned. Check your affected lymph glands every day for changes. Check other lymph gland areas as told by your health care provider. Check for changes such as: ?More swelling. ?Sudden increase in size. ?Redness or pain. ?Hardness. Keep all follow-up visits as told by your health care provider. This is important. Contact a health care provider if you have: Swelling that gets worse or spreads to other areas. Problems with breathing. Lymph glands that: ?Are still swollen after 2 weeks. ?Have suddenly gotten bigger. ?Are red, painful, or hard. A fever or chills. Fatigue. A sore throat. Pain in your abdomen. Weight loss. Night sweats. Get help right away if you have: Fluid leaking from an enlarged lymph gland. Severe pain. Chest pain. Shortness of breath. Summary Lymphadenopathy means that your lymph glands are swollen or larger than normal (enlarged). Lymph glands (also called lymph nodes) are collections of tissue that filter bacteria, viruses, and waste from the bloodstream. They are part of your body's disease-fighting system (immune system). Lymphadenopathy can occur anywhere that you have lymph glands. If your enlarged and swollen lymph glands do not go back to normal after you have an infection or disease, your health care provider may do tests to monitor your condition and find the reason why the glands are still swollen and enlarged. Check your affected lymph glands every day for changes. Check other lymph gland areas as told by your health care provider. This information is not intended to replace advice given to you by your health care provider. Make sure you discuss any questions you have with your health care provider. Document Released: 04/27/2009 Document Revised: 07/01/2018 Document Reviewed: 06/03/2018 [employer] Patient Education 2020 [employer]. 08/05/2022 19:28:35 Breast Tenderness Breast Tenderness Breast tenderness is a common problem for women of all ages, but may also occur in men. Breast tenderness may range from mild discomfort to severe pain. In women, the pain usually comes and goes with the menstrual cycle, but it can also be constant. Breast tenderness has many possible causes, including hormone changes, infections, and taking certain medicines. You may have tests, such as a mammogram or an ultrasound, to check for any unusual findings. Having breast tenderness usually does not mean that you have breast cancer. Follow these instructions at home: Managing pain and discomfort If directed, put ice to the painful area. To do this: ?Put ice in a plastic bag. ?Place a towel between your skin and the bag. ?Leave the ice on for 20 minutes, 2 3 times a day. Wear a supportive bra, especially during exercise. You may also want to wear a supportive bra while sleeping if your breasts are very tender. Medicines Take wmyl-ied-wgscnja and prescription medicines only as told by your health care provider. If the cause of your pain is infection, you may be prescribed an antibiotic medicine. If you were prescribed an antibiotic, take it as told by your health care provider. Do not stop taking the antibiotic even if you start to feel better. Eating and drinking Your health care provider may recommend that you lessen the amount of fat in your diet. You can do this by: ?Limiting fried foods. ?Cooking foods using methods such as baking, boiling, grilling, and broiling. Decrease the amount of caffeine in your diet. Instead, drink more water and choose caffeine-free drinks. General instructions Keep a log of the days and times when your breasts are most tender. Ask your health care provider how to do breast exams at home. This will help you notice if you have an unusual growth or lump. Keep all follow-up visits as told by your health care provider. This is important. Contact a health care provider if: Any part of your breast is hard, red, and hot to the touch. This may be a sign of infection. You are a woman and: ?Not and you have fluid, especially blood or pus, coming out of your nipples. ?Have a new or painful lump in your breast that remains after your menstrual period ends. You have a fever. Your pain does not improve or it gets worse. Your pain is interfering with your daily activities. Summary Breast tenderness may range from mild discomfort to severe pain. Breast tenderness has many possible causes, including hormone changes, infections, and taking certain medicines. It can be treated with ice, wearing a supportive bra, and medicines. Make changes to your diet if told to by your health care provider. This information is not intended to replace advice given to you by your health care provider. Make sure you discuss any questions you have with your health care provider. Document Released: 07/01/2009 Document Revised: 12/11/2019 Document Reviewed: 12/11/2019 [employer] Patient Education 2019 [employer] [facility] 07-02-2022 History of Present illness Narrative [facility] Office Note 07/02/22 Chief Complaint Patient presents with Follow-up Pt presents today for a follow up visit. Pt wants to discuss options for control. SUBJECTIVE: Fernanda Cha is a 26 y.o. who presents for pelvic pain At time of last visit, patient c/o pelvic pain, dyspareunia, dysmenorrhea, urinary frequency/IC, vaginal discharge. She initially declined hormonal suppression. She was encouraged to attend PFPT for MFPP. She also tried bladder instillation for urinary symptoms. She was positive for a BV infection at that time as well, and reports she completed her treatment. Today, reports her bladder symptoms have resolved after her bladder instillation. She is pleased with her response from the bladder instillation, and will schedule another if her symptoms return. She is also in a new relationship, and is under a significantly less amount of relational stress. [place] is significantly improved with the new relationship and reduction of stress. She was not able to attend PFPT due to distance, however, she feels her symptoms are not bothersome enough to pursue this treatment at this time. She wishes to start control today for contraception. Fearful of side effects. Used a pill around 10 years ago, and discontinued due to worsening depression. Unsure about having an IUD. Past Medical History negative for HTN, CAD, CVA, MEGHA, liver, gallbladder, diabetes, SSD She has no contraindications to the use of oral contraceptives, including no history of DVT or other clot, migraine with visual aura, gall bladder disease, coronary artery disease, over age 35 and smoking PAP: 04/20/22 ASC-US HPV negative Copy from previous note for historical significance: Had relief from surgery with her abdominal pain, though periods are now worse than prior to surgery. Has one period per month. Most recent cycle was 8 days late. Bleeding will last for 7 days, changing tampon every 1.5 hours, severe dysmenorrhea. Has never skipped a month of bleeding. Having pelvic pain, back pain outside cycle. Significant pelvic pain, dyspareunia outside cycle. Having significant vaginal discharge as well. Not a medicine person. Stopped Elavil as she did not like the way it made her feel. Also declines hormonal suppression. Copy from Op-Note: 09/26/2020 Dr. Garibay Procedure(s): ROBOTIC ASSISTED LAPAROSCOPIC EXCISION OF ENDOMETRIOSIS, CHROMOPERTUBATION, LEFT OVARIAN CYSTECTOMY, CYSTOSCOPY WITH HYDRODISTENTION FINDINGS: Normal-appearing upper abdomen, diaphragm, liver, gallbladder and stomach. 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 Left ovarian follicular cyst. Omental adhesions to the anterior abdominal wall. Stage I endometriosis: Right ovarian fossa Ronald-Masters defect. Endometriosis was noted right ovarian fossa. Left infundibulopelvic ligament peritoneal endometriosis. Large bowel adhesions to the left pelvic brim and left ovarian fossa were noted. Left ovarian fossa scattered endometriotic lesions. Left pericolic gutter endometriosis noted. Right perirectal fossa endometriosis noted. Inflammation and increased vascularity with Hunner's lesions reflecting interstitial cystitis. Path benign: confirmed small fibroids, hemorrhagic ovarian cyst, endosalpingosis Patient's past medical, surgical, social, and family histories have been reviewed and updated in the chart. ROS: Negative x 10 systems reviewed except as noted in the HPI. Past Medical History: Diagnosis Date Endometriosis Fibroid 2019 IBS (irritable bowel syndrome) Pelvic congestion syndrome Past Surgical History: Procedure Laterality Date BREAST BIOPSY 2020 BREAST LUMPECTOMY 2019 COLONOSCOPY ENDOMETRIAL ABLATION 2018 LAPAROSCOPY 09/2018 MYOMECTOMY 2019 PELVISCOPY ROBOTIC XI N/A 09/26/2020 Procedure: ROBOTIC ASSISTED LAPAROSCOPIC EXCISION OF ENDOMETRIOSIS, CHROMOPERTUBATION, LEFT OVARIAN CYSTECTOMY, CYSTOSCOPY WITH HYDRODISTENTION; Surgeon: Darlin Balderas MD; Location: [facility] Main OR; Service: [employer] Allergen Patch Test No documentation. Active Home Medications Medication Sig Take Last Dose On Take Morning of Surgery Comment(s) norethindrone-e.estradioL-iron (Lo Loestrin Fe) 1 mg-10 mcg (24)/10 mcg (2) Tab Take one tab by mouth per day . OBJECTIVE: BP 114/74 (BP Location: Left arm, Patient Position: Sitting, BP Cuff Size: Adult) Pulse 91 Ht 5' 3 Wt 64 kg (141 lb) LMP 06/22/2022 (Exact Date) BMI 24.98 kg/m Body mass index is 24.98 kg/m . Physical Examination: PHYSICAL EXAM: PACU Vitals 07/02/22 1254 BP: 114/74 Pulse: 91 Constitutional: The patient is alert and oriented. She is in no acute distress and are resting comfortably. Well nourished. Psych: Affect is normal. Neurologic: Cranial nerves grossly intact. No obvious focal findings. Speech is normal. Eyes: Pupils equal. EOM intact. Gross vision normal. Sclera is anicteric. Head: Normocephalic, atraumatic. Neck: Supple and symmetric. ENT/Mouth: Dentition intact, moist mucous membranes. Skin: No rash, pallor or Jaundice. Lungs: Normal respiratory rate and effort. Pelvic examination: deferred ASSESSMENT/PLAN: Fernanda Cha 26 y.o. presents for pelvic pain, IC, contraception counseling Bladder symptoms resolved with bladder instillation. Dyspareunia significantly improved as well with new relationship, and decreased stress. Wishes to defer PFPT at this time. Contraception counseling, desires contraception. Worried about side effects. After thorough discussion, pt would like to proceed with trial Loloestrin. All questions answered. RTC for ocp check in 3 months Jun Suh PA-C [facility] documented in this encounter [facility] 04-02-2022 History of Present illness Narrative [facility] [address] [facility] [id number] ANNUAL EXAM Patient Name: Fernanda Cha : 1995 SUBJECTIVE: Fernanda Cha is a 26 y.o. Here for an annual exam today. Multiple concerns today. BP 113/73 Pulse 98 Ht 5' 3 Wt 69.7 kg (153 lb 9.6 oz) LMP 03/24/2022 (Exact Date) BMI 27.21 kg/m Gynecologic History: OB History: OB History 1 Para 1 Term 1 AB Living 1 SAB IAB Ectopic Multiple Live Births 1 Menstrual History: Patient's last menstrual period was 03/24/2022 (exact date). Period Cycle (Days): 30 Period Duration (Days): 6-12 Period Pattern: (!) Irregular Menstrual Flow: Heavy (heavy the entire flow) Menstrual Control: Panty liner, Tampon, Maxi pad Dysmenorrhea: (!) Severe Dysmenorrhea Symptoms: Cramping, Diarrhea (pelvic pain, back pain) Had relief from surgery with her abdominal pain, though periods are now worse than prior to surgery. Has one period per month. Most recent cycle was 8 days late. Bleeding will last for 7 days, changing tampon every 1.5 hours, severe dysmenorrhea. Has never skipped a month of bleeding. Having pelvic pain, back pain outside cycle. Significant pelvic pain, dyspareunia outside cycle. Having significant vaginal discharge as well. Not a medicine person. Stopped Elavil as she did not like the way it made her feel. Also declines hormonal suppression. Her last pap was: unsure History of abnormal pap: no She is not currently using contraception. She uses condoms and withdrawal method Denies STIs. Safe in living environment and relationships. HPV Vaccine: up to date Pt states her current diet goals are to maintain her weight. She is currently using walking, piliates to exercise. Copy from Op-Note: 09/26/2020 Dr. Garibay Procedure(s): ROBOTIC ASSISTED LAPAROSCOPIC EXCISION OF ENDOMETRIOSIS, CHROMOPERTUBATION, LEFT OVARIAN CYSTECTOMY, CYSTOSCOPY WITH HYDRODISTENTION FINDINGS: Normal-appearing upper abdomen, diaphragm, liver, gallbladder and stomach. 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 Left ovarian follicular cyst. Omental adhesions to the anterior abdominal wall. Stage I endometriosis: Right ovarian fossa Ronald-Masters defect. Endometriosis was noted right ovarian fossa. Left infundibulopelvic ligament peritoneal endometriosis. Large bowel adhesions to the left pelvic brim and left ovarian fossa were noted. Left ovarian fossa scattered endometriotic lesions. Left pericolic gutter endometriosis noted. Right perirectal fossa endometriosis noted. Inflammation and increased vascularity with Hunner's lesions reflecting interstitial cystitis. Path benign: confirmed small fibroids, hemorrhagic ovarian cyst, endosalpingosis Obstetric History OB History 1 Para 1 Term 1 AB Living 1 SAB IAB Ectopic Multiple Live Births 1 REVIEW OF SYSTEMS: (positives symptoms bolded below) Constitutional: Good general health lately; No recent weight loss, fever or fatigue Eyes: No eye disease or injury, wears glasses Ears Nose Throat, Mouth: No hearing loss, mouth sores, sore throat/voice changes, swollen glands in neck Cardiovascular: No chest pains, sudden heartbeat changes, swelling of feet/ankles/hands Respiratory: No frequent coughing,spitting up blood, shortness of breath, asthma or wheezing Gastrointestinal: IBS, abdominal pain, No loss of appetite, blood in stool, stomach pain Genitourinary: urinary frequency, vaginal bleeding, No burning/painful urination, blood in urine, incontinence/dribbling Musculoskeletal/Skin: No joint pain, weakness of muscles/joints, muscle cramps or pain, back pain, difficulty walking, skin rash, Breasts: right breast surgery for duct, No breast pain, breast lump, nipple discharge or rash. Neurological: No frequent/recurrent headaches, lightheaded/dizzy, convulsions or seizures, numbness or tingling, tremors Psychiatric/Behavioral: No memory loss or confusion, nervousness, depression Endocrine: No increased thirst/urination, heat or cold intolerance, dry skin Hematological: No easy bruising or nose bleeds. Past Medical History: Diagnosis Date Endometriosis Fibroid 2018 IBS (irritable bowel syndrome) Pelvic congestion syndrome Family History Problem Relation Age of Onset Endometriosis Maternal Grandmother Diabetes Maternal Grandmother Endometriosis Mother Breast cancer Mother Cancer Mother Diabetes Mother No Known Problems Father Ovarian cancer Sister Past Surgical History: Procedure Laterality Date BREAST BIOPSY 2020 BREAST LUMPECTOMY 2019 COLONOSCOPY ENDOMETRIAL ABLATION 2018 LAPAROSCOPY 09/2018 MYOMECTOMY 2019 PELVISCOPY ROBOTIC XI N/A 09/26/2020 Procedure: ROBOTIC ASSISTED LAPAROSCOPIC EXCISION OF ENDOMETRIOSIS, CHROMOPERTUBATION, LEFT OVARIAN CYSTECTOMY, CYSTOSCOPY WITH HYDRODISTENTION; Surgeon: Darlin Balderas MD; Location: [facility] Main OR; Service: [employer] Social History Socioeconomic History Marital status: Spouse name: Mauricio Number of children: 1 Occupational History 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 Not very often. Drug use: Never Sexual activity: Yes Partners: Male control/protection: None, Condom Comment: occasional condoms Social History Substance and Sexual Activity Sexual Activity Yes Partners: Male control/protection: None, Condom Comment: occasional condoms Data Unavailable Health Maintenance Topics with due status: Overdue Topic Date Due Pap Smear Never done COVID-19 Vaccine Never done Depression Screening (PHQ-2/9) Never done HIV Screening Never done Hepatitis C Screening Never done Sequential Influenza Vaccine Never done OBJECTIVE: Wt Readings from Last 3 Encounters: 04/02/22 69.7 kg (153 lb 9.6 oz) 10/09/20 69.9 kg (154 lb) 09/26/20 70.1 kg (154 lb 8.7 oz) Body mass index is 27.21 kg/m . BP 113/73 Pulse 98 Ht 5' 3 Wt 69.7 kg (153 lb 9.6 oz) LMP 03/24/2022 (Exact Date) BMI 27.21 kg/m PHYSICAL EXAM: PACU Vitals 04/02/22 1037 BP: 113/73 Pulse: 98 Constitutional: The patient is alert and oriented. She is in no acute distress and are resting comfortably. Well nourished. Psych: Affect is normal. Neurologic: Cranial nerves grossly intact. No obvious focal findings. Speech is normal. Eyes: Pupils equal. EOM intact. Gross vision normal. Sclera is anicteric. Head: Normocephalic, atraumatic. Neck: Supple and symmetric. No thyromegaly ENT/Mouth: Dentition intact, moist mucous membranes. Skin: No rash, pallor or Jaundice. Breast Exam: no axillary LAD, skin normal without puckering or dimpling, no nipple retraction or discharge, regular symmetry noted, no masses palpated b/l CV: no edema, normal pulses, no tenderness, normal rate, rhythm Lungs: Normal respiratory rate and effort. Lung sounds clear to auscultation Abdomen: soft, nontender, no masses, no hernia, no rebound or guarding Pelvic examination: Vulva: No lesions Vagina: Normal-appearing, no lesions, no abnormal discharge, well-estrogenized Anus: Normal Perineum: Normal Speculum exam: cervix is multiparous, no lesions or bleeding, no cervical motions tenderness Urethral Meatus: no abnormality Urethra: no abnormality BME: difficult exam secondary to patient discomfort, uterus with diffuse tenderness, posterior cul de sac tenderness without nodularity, Uterus normal size, position, consistency, normal contour Ovaries without tenderness or fullness, no adnexal mass Pelvic muscles: diffuse spasm Bladder: no tenderness ASSESSMENT/PLAN: 1. Well woman exam 2. Screening for malignant neoplasm of cervix Thinprep Pap Smear 3. Vaginal discharge Vaginitis DNA Probes Vaginitis DNA Probes Chlamydia/GC/Trichomonas Amplified RNA CANCELED: Chlamydia/GC/Trichomonas Amplified RNA 4. Myofascial muscle pain Ambulatory Ref to [facility] (PT/OT/ST) 5. Pelvic pain in female Ambulatory Ref to [facility] (PT/OT/ST) - Reviewed diet and exercise recommendations. Encouraged MVI, Vitamin D supplementation - Reviewed PAP guidelines. PAP updated today -cultures for discharge - Discussed recommendations on breast self-awareness - Contraception discussed with the patient if appropriate. Declines. - STI Screening offered. Safe sex practices discussed -HPV Vaccine up to date Annual today with multiple problems which need addressed, patient lives 2 hours away: Pelvic pain Dyspareunia Dysmenorrhea Urinary frequency, IC Vaginal discharge Declines medications (hormonal suppression, meds for IC, doesn't like to take medicine, doesn't like the way it makes her feel). Interested in bladder instillation PFPT for MFPP (strongly encouraged her to attend, will send referral closer to her home) Poss uterine tenderness on exam, though she was tender all over and difficult to assess I will see her back in 3 months after PFPT for repeat exam, problem visit. In interim, RTC for bladder instillation. All questions answered. Return in about 3 months (around 07/02/2022). Jun Suh PA-C 04/02/22 documented in this encounter [facility] 12-31-2021 History of Present illness Narrative [facility] [address] [place] [id number] BLADDER INSTILLATION PROCEDURE NOTE Patient Name: Fernanda Cha : 1995 MR #: [id number] Indication: pelvic pain Purpose and procedure discussed with patient. All questions answered. Verbal consent obtained. Previous bladder instillation none Current symptoms: Nocturia, discolored dark brown to yellow urine, urgency, frequency, flank pain. Procedure: The patient was placed in lithotomy position. Urethra visualized and cleaned with betedine. A 12 Thai catheter was introduced into the bladder using sterile technique. PRV is 30 cc. Bladder instillation cocktail infused by gravity. Catheter flushed with normal saline. Catheter removed. Patient tolerated procedure well Bladder instillation cocktail: Heparin 40,000 units Kenalog 25 mg (2.5 ml) 8.4 % Sodium Bicarbbonate 3 ml Ropivacaine 50 mg Instructions: Patient advised to refrain from voiding at least 30 minutes. Follow up in 2 weeks or PRN. Lab work ordered due to c/o dark urine Shaan Coronado CNP documented in this encounter [facility] Evaluation + Plan note No data available for this section [facility] Evaluation + Plan note Future Appointments Appointment Date:08/10/2022 03:00:00 PM Scheduled Provider: [facility] Appoint[facility] Type:US Breast () Future Scheduled TestsUS Breast Unilateral Rt Complete 08/10/22 [facility] Evaluation + Plan note Future Appointments Appointment Date:08/14/2022 08:00:00 AM Scheduled Provider:Phoenix Gonzalez MD Location:[facility] Appointment Type: Established 15 [facility] Evaluation + Plan note [facility] General Surgery [facility] Evaluation note Diagnosis Well woman exam- Primary Routine general medical examination at a health care facility Screening for malignant neoplasm of cervix Screening for malignant neoplasm of the cervix Vaginal discharge Leukorrhea, not specified as infective Myofascial muscle pain Pelvic pain in female Unspecified symptom associated with female genital organs [facility] Well woman exam- Primary Routine general medical examination at a [facility] care facility Screening for malignant neoplasm of cervix Screening for malignant neoplasm of the cervix Vaginal discharge Leukorrhea, not specified as infective Myofascial muscle pain Pelvic pain in female Unspecified symptom associated with female genital organs [facility] Diagnosis BV (bacterial vaginosis)- Primary Unspecified vaginitis and vulvovaginitis [facility] Diagnosis Interstitial cystitis- Primary Chronic interstitial cystitis Dark yellow-colored urine [facility] Diagnosis Myofascial muscle pain- Primary Pelvic pain in female Unspecified symptom associated with female genital organs Interstitial cystitis Chronic interstitial cystitis Encounter for other general counseling or advice on contraception [facility] Diagnosis Mass of upper outer quadrant of right breast- Primary Nipple discharge Other sign and symptom in breast Family history of breast cancer Family history of malignant neoplasm of breast At high risk for breast cancer Mastalgia Mastodynia [facility] Mass of upper outer quadrant of right breast Nipple discharge Other sign and symptom in breast Family history of breast cancer Family history of malignant neoplasm of breast At high risk for breast cancer Mastalgia Mastodynia [facility] Diagnosis Mass of upper outer quadrant of right breast Nipple discharge Other sign and symptom in breast Family history of breast cancer Family history of malignant neoplasm of breast At high risk for breast cancer Mastalgia Mastodynia [facility]* Diagnosis Interstitial cystitis- Primary Chronic interstitial cystitis documented in this encounter [facility] note* Diagnosis Breast pain, right- Primary Mastodynia Nipple discharge Other sign and symptom in breast Family history of breast cancer Family history of malignant neoplasm of breast documented in this encounter [facility] note* Diagnosis Interstitial cystitis Chronic interstitial cystitis [facility] No data available for this section [facility] No data available for this section [facility] for referral (narrative) Referred by: Lisa PAGE, Phoenix Sal [facility] General Surgery [employer] for referral (narrative)* Diagnostic Procedure Only (Routine) - Authorized Specialty Diagnoses / Procedures Referred By Harry gasca Referred To Contact BR IMAGING Diagnoses Mass of upper outer quadrant of right breast Nipple discharge Family history of breast cancer At high risk for breast cancer Mastalgia Procedures CLEO DIAGNOSTIC BILAT DIAGNOSTIC MAMMOGRAPHY COMPUTER-AIDED DETCJ BI Fernanda Butler DO [address] [place] [address] Br Imaging [address] [place] [address] Referral ID Status Reason Start Date Expiration Date Visits Requested Visits Authorized [id number] Authorized Auto-Generat ed Referral 08/25/2022 09/24/2023 1 1 * Diagnostic Procedure Only (Routine) - Authorized Specialty Diagnoses / Procedures Referred By Harry gasca Referred To Contact BR IMAGING Diagnoses Mass of upper outer quadrant of right breast Nipple discharge Family history of breast cancer At high risk for breast cancer Mastalgia Procedures US BREAST LTD RT US BREAST UNI REAL TIME WITH IMAGE LIMITED Fernanda Butler DO [address] [facility] [place] [address] Br Imaging [address] [place] [address] Referral ID Status Reason Start Date Expiration Date Visits Requested Visits Authorized [id number] Authorized Auto-Generat ed Referral 08/25/2022 09/24/2023 1 1 * MRI/CT (Routine) - Pending Review Specialty Diagnoses / Procedures Referred By Harry gasca Referred To Contact MR IMAGING Diagnoses Mass of upper outer quadrant of right breast Nipple discharge Family history of breast cancer At high risk for breast cancer Mastalgia Procedures MRI BREAST WO/W IVCON BILAT MRI BREAST WITHOUT&WITH CONTRAST W/CAD BILATERAL Fernanda Butler DO [address] [place] [address] Mr Imaging Referral ID Status Reason Start Date Expiration Date Visits Requested Visits Authorized [id number] Pending Review Auto-Generat ed Referral 08/25/2022 09/24/2023 1 1 [facility] for referral (narrative)* Diagnostic Procedure Only (Routine) - Closed Specialty Diagnoses / Procedures Referred By Harry gasca Referred To Contact BR IMAGING Diagnoses Mass of upper outer quadrant of right breast Nipple discharge Family history of breast cancer At high risk for breast cancer Mastalgia Procedures US BREAST LTD RT US BREAST UNI REAL TIME WITH IMAGE LIMITED Fernanda Butler DO [address] [place] [address] Br Imaging [address] [place] [address] Referral ID Status Reason Start Date Expiration Date V isits Requested Visits Authorized [id number] Closed Auto-Generate d Referral 08/25/2022 09/24/2023 1 1 [facility] for visit Narrative* Diagnostic Procedure Only (Routine) - Closed Specialty Diagnoses / Procedures Referred By Harry gasca Referred To Contact BR IMAGING Diagnoses Mass of upper outer quadrant of right breast Nipple discharge Family history of breast cancer At high risk for breast cancer Mastalgia Procedures US BREAST LTD RT US BREAST UNI REAL TIME WITH IMAGE LIMITED Fernanda Butler, DO [address] [place] [address] Br Imaging [address] [place] [address] Referral ID Status Reason Start Date Expiration Date V isits Requested Visits Authorized [id number] Closed Auto-Generate d Referral 08/25/2022 09/24/2023 1 1 [facility] Summary Purpose Family History No Family History Records FoundNo Family History Records FoundNo Family History Records FoundNo Family History Records FoundNo Family History Records FoundNo Family History Records FoundNo Family History Records Found Advance Directives No Advanced Directives Records FoundDocuments on File Type Date Recorded Patient Outpatient Dietitian Expl anation Advance Directives and Living Will Documents on File Type Date Recorded Patient Outpatient Dietitian Expl anation Advance Directives and Livin g Will 09/26/2020 12:00 AM Latest Code Status on File Code Status Date Activated Date Inactivated Comments Full Code 09/26/2020 1:59 PM 09/26/2020 10:04 PM Full Code 09/26/2020 9:00 AM 09/26/2020 1:59 PM Documents on File Type Date Recorded Patient Outpatient Dietitian Expl anation Advance Directives and Livin g Will 09/26/2020 12:00 AM Latest Code Status on File Code Status Date Activated Date Inactivated Comments Full Code 09/26/2020 1:59 PM 09/26/2020 10:04 PM Full Code 09/26/2020 9:00 AM 09/26/2020 1:59 PM Latest Code Status on File Date Activated Date Inactivated Comments 09/26/2020 1:59 PM 09/26/2020 10:04 PM Full Code Date Activated Date Inactivated Comments 09/26/2020 9:00 AM 09/26/2020 1:59 PM Latest Code Status on File Date Activated Date Inactivated Comments 09/26/2020 1:59 PM 09/26/2020 10:04 PM Full Code Date Activated Date Inactivated Comments 09/26/2020 9:00 AM 09/26/2020 1:59 PM Latest Code Status on File Code Status Date Activated Date Inactivated Comments Full Code 09/26/2020 1:59 PM 09/26/2020 10:04 PM Code Status History Code Status Date Activated Date Inactivated Comments Full Code 09/26/2020 9:00 AM 09/26/2020 1:59 PM Latest Code Status on File Code Status Date Activated Date Inactivated Comments Full Code 09/26/2020 1:59 PM 09/26/2020 10:04 PM Code Status History Code Status Date Activated Date Inactivated Comments Full Code 09/26/2020 9:00 AM 09/26/2020 1:59 PM History of Present Illness * Darlin Balderas MD - 08/14/2020 3:51 PM EST [facility] [address] [place] [facility] [address] CONSULT VISIT Patient Name: Fernanda Cha : 1995 MR #: [id number] SUBJECTIVE: Fernanda Cha is a 24 y.o. female who presents for Pelvic Pain (Pt c/o pain with IC and menses. States she had a L/S in 2019 and was highly possible to have endometriosis. States she has multiple cysts monthly with her menses. States she feels bloated after meals. Reports having a colonoscopy and was dx'd with IBS, she was using Bentyl but discontinued.) and Endometriosis Pt presents to discuss hx of ovarian cyst rupture. She states she keeps having issues with rupturedovarian cysts. She notes she is not one who likes to take medicine. She has tried control pills in the past but experienced side effects (depression). She states when her cyst ruptures, she will have clear fluid with copious amounts of discharge. She notes the discharge reminds her of amniotic fluid. She states she has had painful cycles since age 11. She is also complaining of pain with intercourse. She states she began exercising, began doing sit-ups and she can feel pulling sensations from the inside. She states she feels like her scar from her last lap has not healed correctly, her belly button is still red. She admits to nocturia (2 x nightly). States she has had a lot of bladder issues since having her son. She reports she had a laparoscopy procedure in [id number]. She notes family hx (mom and maternal grandma) of endometriosis. The patient is otherwise well and without fevers, chills, CP, SOB, chest papitations, severe abdominal or pelvic pain, nausea, vomiting, bladder or bowel issues. Patient's review of systems, past medical, surgical, social, and family histories have been reviewed and updated in the chart. CHISEL TRIMMER History: Period Pattern: (!) Irregular Menstrual Flow: Heavy Dysmenorrhea: (!) Moderate Past Medical History: Diagnosis Date IBS (irritable bowel syndrome) Pelvic congestion syndrome Past Surgical History: Procedure Laterality Date COLONOSCOPY LAPAROSCOPY 09/2018 Family History Problem Relation Age of Onset Endometriosis Maternal Grandmother Endometriosis Mother Social History Socioeconomic History Marital status: Single Spouse name: Not on file Number of children: 1 Years of education: Not on file Highest education level: Not on file Occupational History Not on file Social Needs Financial resource strain: Not on file Food insecurity Worry: Not on file Inability: Not on file Transportation needs Medical: Not on file Non-medical: Not on file Tobacco Use Smoking status: Never Smoker Smokeless tobacco: Never Used Substance and Sexual Activity Alcohol use: Never Frequency: Never Drug use: Never Sexual activity: Yes Partners: Male control/protection: None Lifestyle Physical activity Days per week: Not on file Minutes per session: Not on file Stress: Not on file Relationships Social connections Talks on phone: Not on file Gets together: Not on file Attends religion service: Not on file Active member of club or organization: Not on file Attends meetings of clubs or organizations: Not on file Relationship status: Not on file Other Topics Concern Not on file Social History Narrative Not on file OBJECTIVE: Vitals: 08/14/20 1452 BP: 110/60 Temp: 97.7 F (36.5 C) Weight: 69.3 kg (152 lb 12.8 oz) Height: 5' 3 Body mass index is 27.07 kg/m . Physical Examination: Physical Exam Constitutional: Appearance: Normal appearance. She is well-developed. Interventions: Face mask in place. Genitourinary: Bladder is tender. Uterus is tender. HENT: Head: Normocephalic and atraumatic. Neck: Musculoskeletal: Normal range of motion and neck supple. Cardiovascular: Rate and Rhythm: Normal rate and regular rhythm. Pulmonary: Effort: Pulmonary effort is normal. Neurological: Mental Status: She is alert and oriented to person, place, and time. Skin: General: Skin is warm and dry. Psychiatric: Mood and Affect: Mood and affect normal. Thought Content: Thought content normal. Judgment: Judgment normal. ASSESSMENT/PLAN: Fernanda Cha is a 24 y.o. female who presents for: Problem List Items Addressed This Visit Ovarian cyst rupture Pelvic exam performed: Bladder tenderness. Uterine tenderness. Pt extensively counseled on treatment options for endometriosis. Discussed medical vs surgical options. Pt advised on use of control pills, Lupron and Orilissa. Advised on side effects and senior living use. Pt also advised on robotic assisted resection of endometriosis and hysterectomy. Advised on robotic assisted laparoscopic hysterectomy. Endometriosis symptomology and first-degree relative correlation discussed. Counseled on 3 theories on how endometriosis arises; lymphatic spread, retrograde menstruation, andcoelomic metaplasia. Ovarian cyst symptomology discussed. Routine ovulatory cysts discussed. Pt counseled these types ofcysts usually do not cause discomfort unless enlarged. IC symptomology discussed. Lotrisone Rx written to apply to belly button area twice daily to manage redness and irritation. Intraoperative IUD placement discussed. After lengthy discussion, pt would like to move forward with RALS-EOE with cystoscopy with possiblehydrodistention with chromopertubation with possible intraoperative IUD placement and will be scheduled accordingly. Pt will return for preoperative visit where pocedure will be discussed in complete detail. Any necessary procedural modifications will also be updated and discussed at that time. Other Visit Diagnoses Pelvic pain in female Endometriosis Pelvic congestion Return for Pre Op Visit. Yasemin Zelaya MA, acted as scribe on behalf of Dr. Darlin Balderas and accurately documented clinical information at the direction of the physician contemporaneously, while she performed the patient's clinical service. 08/14/20 3:51 PM documented in this encounter* Selene Perdomo RN - 09/25/2020 9:09 AM EST [facility] [address] [place] [phone] PRE-OPERATIVE CONSULT Pre-Operative Visit: 09/25/20 Date Of Surgery: 09/26/20 Location Of Surgery: [facility] Pre-Op Dx: Pelvic pain, Endometriosis, Ovarian Cyst Ruptured, Pelvic Congestion Type Of Surgery: RAL EOE, Cystoscopy, Possible Hydrodistention, Chromopertubation Anesthesia Risk Factors: No history of anesthetic complications. Denies sleep apnea. Denies loose teeth/dentures. Surgical Risks: Laparoscopy 2018 Medical Risks: Denies medical risks. Nursing Documentation: Pre and post-op instructions given to pt. Discussed the On Q pain pump and how to take care of it and remove it at home. Went over bowel prep instructions w/ pt and stressed the importance of completing the prep. Surgery handout provided to pt and advised of post-op ph# to call for problems. Pt verb an understanding of all instructions and surgery consent form signed. Selene Perdomo RN 09/25/20 9:09 AM documented in this encounter* Gi Acosta RN - 09/26/2020 7:51 PM EST Pt [facility] via wheelchair and was picked up by a family member. documented in this encounter* Darlin Balderas MD - 10/09/2020 12:03 PM EST [facility] [address] [facility] [phone] POST-OPERATIVE VISIT Surgery: ROBOTIC ASSISTED LAPAROSCOPIC EXCISION OF ENDOMETRIOSIS, CHROMOPERTUBATION, LEFT OVARIAN CYSTECTOMY, CYSTOSCOPY WITH HYDRODISTENTION Surgery Date: 09/26/20 Surgeon: Darlin Balderas MD HPI: Fernanda Cha is a 24 y.o. yo female now 2 weeks Post-op (RALS, EOE, chromopertubation, left ovarian cystectomy, cystoscopy with hydrodistention done on 09/26/20.) Pt presents for postoperative evaluation. She states she is still having bladder issues, experiencing urinary frequency. She states she feels uncomfortable in her own skin, with crying, does not feel like herself. She reports she is also feeling fatigued. She states she has not had the left-sidedovarian pain since her surgery. She reports doing well since surgery and is well and without fevers,chills, CP, SOB, chest papitations, severe abdominal or pelvic pain, nausea, vomiting, bladder or bowel issues. Her port site incisions have healed well. She denies heavy vaginal bleeding, ROS: Negative x 10 systems reviewed except as noted in the HPI. All past medical, surgical, social, family, allergy, and medication histories have been reviewed and updated in [facility] charting. Physical Exam: Physical Exam Constitutional: Appearance: Normal appearance. She is well-developed. Interventions: Face mask in place. HENT: Head: Normocephalic and atraumatic. Neck: Musculoskeletal: Normal range of motion and neck supple. Cardiovascular: Rate and Rhythm: Normal rate and regular rhythm. Pulmonary: Effort: Pulmonary effort is normal. Abdominal: General: A surgical scar is present. Palpations: Abdomen is soft. Tenderness: There is no abdominal tenderness. Comments: Incisions healing well. Neurological: Mental Status: She is alert and oriented to person, place, and time. Skin: General: Skin is warm and dry. Psychiatric: Mood and Affect: Mood and affect normal. Thought Content: Thought content normal. Judgment: Judgment normal. Assessment and Plan: Problem List Items Addressed This Visit Chronic pelvic pain in female Pt advised on surgical findings. Discussed relevant pathology. Surgical images reviewed and discussed. Incision sites examined; dry, intact, and well approximated. Advised pt. of Scar Away and mechanical massage to reduce scar formation. Findings within normal limits. IC symptomology discussed. Pt counseled suspect her bladder is causing her issues. Food triggers with elimination diet discussed. Medication options including Elmiron as well as amitriptyline with hydroxyzine discussed. Advised on dietary and lifestyle changes, bladder triggers, use of Elmiron, outpatient bladder instillations and intraoperative cystoscopy with hydrodistention. Discussed using Naprosyn or Aleve for continued pain management, reduction of chronic inflammation and help with fatigue symptoms. Trial Rx written for Elavil and hydroxyzine for management of bladder symptoms. Benefits of pelvic floor therapy discussed. Ambulatory referral given and Pt advised to trial pelvic floor therapy sessions for further management of symptoms. Copy of surgical images given to pt. Interstitial cystitis Patient advised on symptomology of chronic bladder pain syndrome. Advised on dietary and lifestyle changes. Advised on use of Elmiron. Advised on risks, benefits and alternatives. Advised on the use of Amitriptyline and hydroxyzine. Advised on outpatient bladder instillations and intra-operative hydro-distention. Other Visit Diagnoses Post-operative state - Primary Return in about 3 months (around 01/09/2021) for Follow up. Yasemin Zelaya MA, acted as scribe on behalf of Dr. Darlin Balderas and accurately documented clinical information at the direction of the physician contemporaneously, while she performed the patient's clinical service. 10/09/20 12:03 PM documented in this encounter Assessments Diagnosis Pelvic pain in female Unspecified symptom associated with female genital organs Endometriosis Endometriosis, site unspecified Ovarian cyst rupture Other and unspecified ovarian cyst Pelvic congestion Pelvic congestion syndrome Diagnosis Ovarian cyst rupture- Primary Other and unspecified ovarian cyst Chronic pelvic pain in female Unspecified symptom associated with female genital organs Dysuria Irritable bowel syndrome, unspecified type Ovarian cyst rupture Other and unspecified ovarian cyst Diagnosis Ovarian cyst rupture Other and unspecified ovarian cyst Chronic pelvic pain in female Unspecified symptom associated with female genital organs Dysuria Irritable bowel syndrome, unspecified type Diagnosis Pelvic pain in female- Primary Unspecified symptom associated with female genital organs Diagnosis Post-operative state- Primary Other postprocedural status Chronic pelvic pain in female Unspecified symptom associated with female genital organs Interstitial cystitis Chronic interstitial cystitis Discharge Instructions * Instructions* Katarzyna Fontaine CNP - 09/24/2020 Follow preprinted discharge instructions given to you by Dr Rolon Take all prescriptions given to you by Dr Rolon Nausea and Vomiting After Surgery: Care Instructions Your Care Instructions After you've had surgery, you may feel sick to your stomach (nauseated) or you may vomit. Sometimesanesthesia can make you feel sick. It's a common side effect and often doesn't last long. Pain alsocan make you feel sick or vomit. After the anesthesia wears off, you may feel pain from the incision (cut). That pain could then upset your stomach. Taking pain medicine can also make you feel sick to your stomach. Whatever the cause, you may get medicine that can help. There are also some things you can do at home to prevent nausea and feel better. The doctor has checked you carefully, but problems can develop later. If you notice any problems ornew symptoms, get medical treatment right away. Follow-up care is a her part of your treatment and safety. Be sure to make and go to all appointments, and call your doctor if you are having problems. It's also a good idea to know your test resultsand keep a list of the medicines you take. How can you care for yourself at home? Be safe with medicines. Read and follow all instructions on the label. If the doctor gave you a prescription medicine for pain, take it as prescribed. If you are not taking a prescription pain medicine, ask your doctor if you can take an [id number] medicine. Take your pain medicine as soon as you have pain. It works better if you take it before the pain gets bad. Call your doctor if you have any problems with your medicine. Rest in bed until you feel better. To prevent dehydration, drink plenty of fluids, enough so that your urine is light yellow or clear like water. Choose water and other caffeine-free clear liquids until you feel better. If you have kidney, heart, or liver disease and have to limit fluids, talk with your doctor before you increase the amount of fluids you drink. When you are able to eat, try clear soups, mild foods, and liquids until all symptoms are gone for 12 to 48 hours. Other good choices include dry toast, crackers, cooked cereal, and gelatin dessert, such as Jell-O. Do not smoke. Smoking and being around smoke can make nausea worse. If you need help quitting, talkto your doctor about stop-smoking programs and medicines. These can increase your chances of quitting for good. When should you call for help? Call 911 anytime you think you may need emergency care. For example, call if: You passed out (lost consciousness). Call your doctor now or seek immediate medical care if: You have new or worse nausea or vomiting. You are too sick to your stomach to drink any fluids. You cannot keep down fluids. You have symptoms of dehydration, such as: Dry eyes and a dry mouth. Passing only a little dark urine. Feeling thirstier than usual. Your pain medicine is not helping. You are dizzy or lightheaded, or you feel like you may faint. Watch closely for changes in your health, and be sure to contact your doctor if: You do not get better as expected. Where can you learn more? Log into your personal health record on [email or web address] and enter M536 in the Education box to learn more about Nausea and Vomiting After Surgery Instructions for after anesthesia: Rest for 24 hours after your surgery and anesthesia. Do not drive. Do not drink alcoholic beveragesduring this time. You may experience a sore throat, sore jaw, stiff neck, or muscle aches after anesthesia. You may also experience dry mouth and nausea. These symptoms should resolve over the next few days. If nausea or vomiting persists after surgery you may need an anti-nausea medication such as Zofran. This can be called in during normal office hours by calling your surgeon s office. If it isafter normal office hours you may need to go to the ER for this medication. documented in this encounter Reason for Referral Status Reason Specialty Diagnoses / Procedures Referred By Contact Referred To Contact Authorized Patient Preference Physical Therapy Diagnoses Pelvic pain in female Darlin Balderas MD [address] [place] [address] Specialty Diagnoses / Procedures Referred By Harry gasca Referred To Contact Rehabilitation Diagnoses Myofascial muscle pain Pelvic pain in female Jun Suh PA-C [address] [place] [address] Referral ID Status Reason Start Date Expiration Date V isits Requested Visits Authorized [id number] Authorized 04/02/2022 04/02/2023 1 1 Specialty Diagnoses / Procedures Referred By Harry gasca Referred To Contact MR IMAGING Diagnoses Mass of upper outer quadrant of right breast Nipple discharge Family history of breast cancer At high risk for breast cancer Mastalgia Procedures MRI BREAST WO/W IVCON BILAT MRI BREAST WITHOUT&WITH CONTRAST W/CAD BILATERAL Fernanda Butler DO [address] [place] [address] Mr Imaging Referral ID Status Reason Start Date Expiration Date V isits Requested Visits Authorized [id number] Closed Auto-Generate d Referral 09/04/2022 11/03/2022 1 1 Specialty Diagnoses / Procedures Referred By Harry gasca Referred To Contact Diagnoses Interstitial cystitis Marlys Meeks CNP [address] [place] [address] Referral ID Status Reason Start Date Expiration Date Visits Re quested Visits Authorized [id number] Closed 1 1 Additional Source Comments INFORMATION SOURCE (unrecogn ized section and content) DATE CREATED AUTHOR 07/10/2018 [facility] DATE CREATED AUTHOR AUTHOR'S ORGANIZ ATION 11/15/2020 [facility] DATE CREATED AUTHOR AUTHOR'S ORGANIZ ATION 06/21/2022 [facility] DATE CREATED AUTHOR AUTHOR'S ORGANIZ ATION 10/09/2022 [facility] DATE CREATED AUTHOR AUTHOR'S ORGANIZ ATION 10/10/2022 [facility] DATE CREATED AUTHOR AUTHOR'S ORGANIZ ATION 11/08/2022 [facility] DATE CREATED AUTHOR AUTHOR'S ORGANIZ ATION 07/17/2023 [facility] Reason for Visit (unrecogniz ed section and content) Reason Onset Date Comments Medication Refill 08/20/2020 Reason Comments Pelvic Pain Pt c/o pain with IC and menses. States she had a L/S in 2019 and was highly possible to have endometriosis. States she has multiple cysts monthly with her menses. States she feels bloated after meals. Reports having a colonoscopy and was dx'd with IBS, she was using Bentyl but discontinued. Endometriosis Reason Comments Pre-op Exam Status Reason Specialty Diagnoses / Procedures Re ferred By Contact Referred To Contact Diagnoses Ovarian cyst rupture Chronic pelvic pain in female Dysuria Irritable bowel syndrome, unspecified type Ovarian cyst rupture [N83.209] Chronic pelvic pain in female [R10.2, G89.29] Dysuria [R30.0] Irritable bowel syndrome, unspecified type [K58.9] Procedures ND LAPAROSCOPY W TOT HYSTERECTUTERUS <=250 GRAM W TUBE/OVARY ND LAP,FULGURATE/EXCISE LESIONS ND REOPEN FALLOPIAN TUBE,CHROMOTUBATION ND CYSTOSCOPY,DIL BLADDER,GEN ANESTH ND INSERT INTRAUTERINE DEVICE Darlin Balderas MD [address] [facility] [place] [address] Reason Onset Date Comments PFT & Prescriptions 10/09/2020 Reason Comments Post-op RALS, EOE, chromoper tubation, left ovarian cystectomy, cystoscopy with hydrodistention done on 09/26/20. Reason Onset Date Comments Lotrisone Cream Rx 08/16/2020 Reason Comments Annual Exam Pt presents today fo r an annual equipment man exam with pap. Reason Comments Procedure Bladder Instillation . Reason Comments Follow-up Pt presents today fo r a follow up visit. Pt wants to discuss options for control. Reason Comments Breast Problem Reason Comments Radiology MRI Specialty Diagnoses / Procedures Referred By Harry t Referred To Contact MR IMAGING Diagnoses Mass of upper outer quadrant of right breast Nipple discharge Family history of breast cancer At high risk for breast cancer Mastalgia Procedures MRI BREAST WO/W IVCON BILAT MRI BREAST WITHOUT&WITH CONTRAST W/CAD BILATERAL Fernanda Butler DO [address] [place] [address] Mr Imaging Referral ID Status Reason Start Date Expiration Date V isits Requested Visits Authorized [id number] Closed Auto-Generate d Referral 09/04/2022 11/03/2022 1 1 Reason Comments Procedure Bladder Installation . Reason Comments Appointment Reason Comments Breast Problem Reason Onset Date Comments Medication Refill 05/31/2023 Assessment & Plan Note - Yasemin Valadez MA - 08/14/2020 3:38 PM ESTPlan of Care - Pennie Andrade RN - 09/26/2020 6:39 PM ESTTelephone Encounter - Selene Perdomo RN - 10/09/2020 2:49 PM EST Miscellaneous Notes (unrecog nized section and content) Associated Problem(s): Ovarian cyst rupture Pelvic exam performed: Bladder tenderness. Uterine tenderness. Pt extensively counseled on treatment options for endometriosis. Discussed medical vs surgical options. Pt advised on use of control pills, Lupron and Orilissa. Advised on side effects and fci use. Pt also advised on robotic assisted resection of endometriosis and hysterectomy. Advised on robotic assisted laparoscopic hysterectomy. Endometriosis symptomology and first-degree relative correlation discussed. Counseled on 3 theories on how endometriosis arises; lymphatic spread, retrograde menstruation, and coelomic metaplasia. Ovarian cyst symptomology discussed. Routine ovulatory cysts discussed. Pt counseled these types of cysts usually do not cause discomfort unless enlarged. IC symptomology discussed. Lotrisone Rx written to apply to belly button area twice daily to manage redness and irritation. Intraoperative IUD placement discussed. After lengthy discussion, pt would like to move forward with RALS-EOE with cystoscopy with possible hydrodistention with chromopertubation with possible intraoperative IUD placement and will be scheduled accordingly. Pt will return for preoperative visit where pocedure will be discussed in complete detail. Any necessary procedural modifications will also be updated and discussed at that time. documented in this encounter AVS reviewed with pt. Pt states no further questions or concerns. This RN urged pt to attempt regular diet before discharging, pt compliant and attempting to eat crackers. Problem: Plan for Discharge Goal: Knowledge of discharge plan and instructions Outcome: Completed Associated Problem(s): Chronic pelvic pain in female - To OR with Dr. Balderas - Post op orders to follow - Pt plans on home this evening documented in this encounter Patient was evaluated in the office today by Dr. Lani Balderas. Prescriptions for Hydroxyzine and Amitriptyline ordered after office visit. Rxs entered and routed to provider to sign. PFT referral entered. Pt lives in [place], [place] (near [place]). This nurse called [facility] in [place], no answer. LVM requesting a return call to see if they offer PFT. P: [phone]. No fax number listed on their website. documented in this encounter Associated Problem(s): Interstitial cystitis Patient advised on symptomology of chronic bladder pain syndrome. Advised on dietary and lifestyle changes. Advised on use of Elmiron. Advised on risks, benefits and alternatives. Advised on the use of Amitriptyline and hydroxyzine. Advised on outpatient bladder instillations and intra-operative hydro- distention. Associated Problem(s): Chronic pelvic pain in female Pt advised on surgical findings. Discussed relevant pathology. Surgical images reviewed and discussed. Incision sites examined; dry, intact, and well approximated. Advised pt. of Scar Away and mechanical massage to reduce scar formation. Findings within normal limits. IC symptomology discussed. Pt counseled suspect her bladder is causing her issues. Food triggers with elimination diet discussed. Medication options including Elmiron as well as amitriptyline with hydroxyzine discussed. Advised on dietary and lifestyle changes, bladder triggers, use of Elmiron, outpatient bladder instillations and intraoperative cystoscopy with hydrodistention. Discussed using Naprosyn or Aleve for continued pain management, reduction of chronic inflammation and help with fatigue symptoms. Trial Rx written for Elavil and hydroxyzine for management of bladder symptoms. Benefits of pelvic floor therapy discussed. Ambulatory referral given and Pt advised to trial pelvic floor therapy sessions for further management of symptoms. Copy of surgical images given to pt. documented in this encounter Per orders from Dr. Garibay, Rx for Lotrisone Cream entered and routed to provider to sign. Lotrisone for irritation at belly button site from previous lap procedure. Pt instructed at visit to apply to affected area twice daily until redness and irritation subside. documented in this encounter Rosaura Mcleod, SAND POLISHER - 09/26/2020 9:50 AM EST H&P Notes (unrecognized sect ion and content) HISTORY AND PHYSICAL Patient Name: Fernanda Cha Admit Date: [id number] MR #: [id number] : 1995 Physicians: Asad Owens DO (Family); Mauricio Balderas* (referring) Hospital Course: No notes on file Assessment and Plan: Chronic pelvic pain in female Assessment & Plan - To OR with Dr. Balderas - Post op orders to follow - Pt plans on home this evening Assessment Detail: Based on current clinical information, the expected discharge date is: today (09/26/2020) Chief Complaint/Reason for Visit: Chronic pelvic pain History of Present Illness: Fernanda Cha is a 24 y.o. female presenting for elective laparoscopic excision of endometriosis, chromopertubation, cystoscopy with possible hydrodistention, possible IUD insertion. Patient has had chronic pelvic pain since age 11. For the past 4 years symptoms have worsened since having her son. There is daily pain/cramping as well as urinary frequency and incontinence. METS is greater than 4. History: Past Medical History: Diagnosis Date Endometriosis IBS (irritable bowel syndrome) Pelvic congestion syndrome Past Surgical History: Procedure Laterality Date COLONOSCOPY LAPAROSCOPY 09/2018 Family History Problem Relation Age of Onset Endometriosis Maternal Grandmother Endometriosis Mother No Known Problems Father Social History Socioeconomic History Marital status: Single Spouse name: Not on file Number of children: 1 Years of education: Not on file Highest education level: Not on file Occupational History Not on file Social Needs Financial resource strain: Not on file Food insecurity Worry: Not on file Inability: Not on file Transportation needs Medical: Not on file Non-medical: Not on file Tobacco Use Smoking status: Never Smoker Smokeless tobacco: Never Used Substance and Sexual Activity Alcohol use: Never Frequency: Never Drug use: Never Sexual activity: Yes Partners: Male control/protection: None Lifestyle Physical activity Days per week: Not on file Minutes per session: Not on file Stress: Not on file Relationships Social connections Talks on phone: Not on file Gets together: Not on file Attends religion service: Not on file Active member of club or organization: Not on file Attends meetings of clubs or organizations: Not on file Relationship status: Not on file Other Topics Concern Not on file Social History Narrative Not on file Living Arrangements: Spouse/significant other, Alone Support Systems: Spouse/significant other Allergy Information: I have reviewed the patient's allergies. Ibuprofen and Sulfamethoxazole-trimethoprim Home Medications: No current outpatient medications on file as of 09/26/2020. Review of Systems: The following system(s) were reviewed and pertinent findings noted: Constitutional:No fever, no weight loss Eyes:No diplopia ENT:No sinus drainage CV:No chest pain. No ankle swelling Resp:No dyspnea. No wheezing GI:No abdominal distention. Intermittent loose stools and constipation. :No dysuria Neuro:No headache Integumentary:No skin rash MuscSkel:No arthralgias Endo:No polyuria Heme/lymphatic:No apparent lymphadenopathy Allergic/Immunologic:No hives Psych:No unusual mood swings Physical Examination: Vital Signs: BP 105/78 Pulse 84 Temp 98.2 F (36.8 C) (Oral) Resp 16 Ht 5' 4 Wt 70.1 kg (154 lb 8.7 oz) LMP 09/08/2020 SpO2 100% No BMI 26.53 kg/m General: Alert, cooperative, no distress, appears stated age Head: Normocephalic, without obvious abnormality, atraumatic Eyes: Conjunctiva/corneas clear, EOM's intact Neck: Symmetrical, trachea midline Lungs: Clear to auscultation bilaterally, respirations unlabored,normal respiratory effort Cardiovascular: Regular rate and rhythm, S1 and S2 normal, no murmur; Pulses 2+ and symmetric all extremities Abdomen: Soft, non-tender, bowel sounds active all four quadrants Extremities: Normal, atraumatic, no cyanosis or edema Skin: Skin color, texture, turgor normal, no rashes or lesions Musculoskeletal: Full range of motion of all extremities; no joint edema Neurologic: No focal motor deficits noted Psych: Mood and affect appropriate Laboratory and Additional Data Reviewed: Medications 09/26/20 9:54 AM Transcriptions 09/26/20 9:54 AM Associated attestation - Darlin Balderas MD - 09/26/2020 11:00 AM EST I have reviewed the history, physical and plan of care of Fernanda Julio C Cha. I have reviewed the note and concur with the documentation completed by Rosaura Mcleod CNP . Darlin Balderas MD 09/26/2020 11:00 AMdocumented in this encounter Shaan Figueroa RN - 09/23/2020 2:13 PM EST Nursing Notes (unrecognized section and content) Patient Instructions for [facility]: Prior to arrival: ? Please be sure to wear loose, comfortable clothing and non-skid shoes ? Bring your health insurance information and a photo ID, as well as your Living Will or Durable Power of Recruiting Scheduler for Healthcare if it is available to you. ? Bring your cane/walker any applicable assistive device. If you currently use a CPAP, please bring this device with you on the day of surgery. ? Bring a list of your medications with the name of the medication, dose and how often you are taking it. Be sure to include herbal preparations and [id number] medications on this list. ? Carefully follow any instructions you were given by your Surgeon regarding further food restrictions. To be given instructions by surgeon Wednesday am as she lives 2 hours out of town. ? Do not drink any alcoholic beverages, smoke or chew tobacco during the 24 hours prior to your surgery/procedure. ? Drink plenty of fluids the day prior to your procedure to maintain hydration. ? On the morning of your surgery/procedure, you may brush your teeth but avoid swallowing water except for a sip with any recommended medications to be taken the morning of surgery. ? Bathe or shower the night before or early on the day of your surgery/procedure. Avoid the use of lotions, perfumes or powders. All nail slovenian is to be removed from fingernails and toenails. Hibiclens instructions given to patient. ? Please be sure to remove all jewelry and body piercings and leave all valuables at home. ? You will receive a phone call between 3:30 and 7:30 pm the business day before your procedure to verify the time you should arrive at the hospital. ? Eyeglasses, hearing aids or dentures may be worn to the hospital. Bring your storage container for these items as you will be asked to remove them prior to your surgery/procedure. Please do not wear any contact lenses the day of your surgery/procedure. ? Parking at [facility] is free. Please park in the lot in front of the main lobby. Enter the Main Entrance where a Manager Core Liaison at the information desk will greet you and accompany you to the surgery waiting area. ? Children under the age of 16 are NOT permitted in the Pre/Post Operative areas. They are welcome to wait with a responsible adult in the surgery waiting area. After your surgery: ? If you are having an outpatient procedure and will be going home the same day, a responsible licensed adult must be available for transportation, and is expected to remain at the hospital for the duration of your surgery/procedure. You are NOT allowed to drive yourself home. documented in this encounter Care Teams (unrecognized sec tion and content) Lending Manager Relationship Specialty Start Date End Date Asad Owens DO [address] [place] [address] PCP - General Family Medicine 07/04/20 Lending Manager Relationship Specialty Start Date End Date Asad Owens DO [address] [place] [address] PCP - General Family Medicine 07/04/20 Lending Manager Relationship Specialty Start Date End Date Asad Owens DO [address] [place] [address] PCP - General Family Medicine 07/04/20 Lending Manager Relationship Specialty Start Date End Date Asad Owens DO [address] [place] [address] PCP - General Family Medicine 07/04/20 Lending Manager Relationship Specialty Start Date End Date Asad Owens DO [address] [place] [address] PCP - General Family Medicine 07/04/20 Lending Manager Relationship Specialty Start Date End Date Asad Owens DO [address] [place] [address] PCP - General Family Medicine 07/04/20 Marlys Meeks CNP [address] [place] [address] Obstetrics/Gynecology 10/22/22 Shaan Coronado CNP [address] [place] [address] Nurse Practitioner Obstetrics/Gynecology 05/21/23 Source Comments (unrecognize d section and content) In the event this informatio n is protected by the Federal Confidentiality of Alcohol and Drug Abuse Patient Records regulations: The Federal rules restrict any use of the information to criminally investigate or prosecute any alcohol or drug abuse patient.[facility] the event this information is protected by the Federal Confidentiality of Alcohol and Drug Abuse Patient Records regulations: The Federal rules restrict any use of the information to criminally investigate or prosecute any alcohol or drug abuse patient.[facility] the event this information is protected by the Federal Confidentiality of Alcohol and Drug Abuse Patient Records regulations: The Federal rules restrict any use of the information to criminally investigate or prosecute any alcohol or drug abuse patient.[facility] the event this information is protected by the Federal Confidentiality of Alcohol and Drug Abuse Patient Records regulations: The Federal rules restrict any use of the information to criminally investigate or prosecute any alcohol or drug abuse patient.[facility] the event this information is protected by the Federal Confidentiality of Alcohol and Drug Abuse Patient Records regulations: The Federal rules restrict any use of the information to criminally investigate or prosecute any alcohol or drug abuse patient.[facility] FOR RECORDS PERTAINING TO PATIENTS WHO ARE OR HAVE BEEN ENROLLED IN A CHEMICAL DEPENDENCY/SUBSTANCEABUSE PROGRAM, SOME INFORMATION MAY BE OMITTED. This clinical summary was aggregated from multiple sources. Caution should be exercised in using it in the provision of clinical care. This summary normalizes information from multiple sources, and as a consequence, information in this document may materially change the coding, format and clinical context of patient data. In addition, data may be omitted in some cases. CLINICAL DECISIONS SHOULD BE BASED ON THE PRIMARY CLINICAL RECORDS. [facility]. provides no warranty or guarantee of the accuracy or completeness of information in this document.
[2023-07-23 07:58] LABS: Basophils Percent Auto 0.2 % (0.2-2.0); Eosinophils Percent Auto 0.9 % (0.9-7.0); Hematocrit 39.8 % (36.0-48.0); Hemoglobin 13.1 g/dL (12.0-16.0); Immature Granulocytes Abs Auto 0.03 10^3/uL (0.00-0.03); Immature Granulocytes Pct Auto 0.6 % (0.0-0.5); Lymphocytes Absolute Auto 1.4 10^3/uL (1.2-3.8); Lymphocytes Percent Auto 30.9 % (20.5-60.0); Mean Corpuscular HGB Conc 32.9 g/dL (29.9-35.2); Mean Corpuscular Hemoglobin 29.2 pg (26.7-34.0); Mean Corpuscular Volume 88.6 fL (81.0-99.0); Monocytes Absolute Auto 0.2 10^3/uL (0.3-0.8); Monocytes Percent Auto 4.9 % (1.7-12.0); Neutrophils Absolute Auto 2.9 10^3/uL (1.4-6.5); Neutrophils Percent Auto 62.5 % (43.0-75.0); Platelet Count 147 10^3/uL (150-450); Red Blood Count 4.49 10^6/uL (4.20-5.40); White Blood Count 4.7 10^3/uL (4.0-11.0)
[2023-07-23] MEDS: LACTATED RINGER'S SOLUTION 1,000 ML 50 ML IV ×2 (08:23→10:38)
--- NOTE | 2023-07-23 10:33 | US_ITS ---
The [address] [address] Patient Name: FERNANDA CLIFTON MRN: [id number] date: 1995 Sex: F Assigned Patient Location: SURGOUT Current Patient Location: [facility] Accession/Order Number: [id number] Exam Date: 07/23/2023 10:37 Report Date: 07/23/2023 11:28 At the request of: MOHINDER BOSWELL Procedure: US pelvis PROCEDURE: US pelvis, 07/23/2023 10:37 AM EST CLINICAL INDICATIONS: Evaluation for retained products of conception. COMPARISON: None TECHNIQUE: Transabdominal pelvic sonogram, grayscale assessment. FINDINGS: A single sagittal image of the uterus is presented. Endometrial echo complex 0.8 cm. Color-flow assessment was not performed. Focal uterine abnormality is not demonstrated. No free fluid seen. US/US pelvis IMPRESSION: 1. Limited evaluation demonstrates 0.8 cm endometrial echo complex without criteria for retained products of conception demonstrated. Electronically authenticated by: ALETHEA CRUZ Date: 07/23/2023 11:28
--- NOTE | 2023-07-23 10:48 | P.ON_ITS ---
Brief Operative Note Date of procedure: 07/23/23 Pre-op diagnosis: missed Post-op diagnosis: same as pre-op Procedure: NAME OF PROCEDURE: [D&C suction ] PROCEDURE: The patient was taken back to the OR where she was given general anesthesia without difficulty. She was then placed in dorsal lithotomy position, prepped and draped in the normal sterile fashion. A weighted speculum was placed in the patient's vagina and the anterior lip of the cervix was identified and grasped with a single-tooth tenaculum. The patient was then gently dilated using Hegar dilators after we had sounded roughly to 12 cm. The suction curette was then tested. The suction curette was then placed in the patient's uterus and products of conception were removed using an 10-Anguillan suction curette. ?Excellent hemostasis was noted. The patient tolerated the procedure well. Sponge, lap, and needle counts were correct x 2. All instruments were then removed from the patient's vagina. The patient was taken to the Recovery Room in stable condition. ?? Anesthesia: EVARISTOA Surgeon: Ahsan Mendoza Estimated blood loss (mL): 100 Pathology: other (poc) Condition: stable Disposition: PACU Urinary Catheter Management Urinary Catheter Management Straight: Cath placed during this visit: no
[2023-07-23] MEDS: HYDROCODONE/ACET 5-325 MG TABLET 1 TAB PO (12:07)
== END 2023-07-23 12:10 | disposition home or self-care (01) ==
PROVIDERS: Visit Provider Obstetrics & Gynecology
PROC: (CPT 1965; principal; 2023-07-23 08:45)
DX: O02.1 Missed abortion (principal)
CPT/HCPCS: 59820; 36415; 76856; 84702; 85025; 86850; 86900; 86901; 88305; J2704

== ENCOUNTER 2023-07-23 10:59 | Outpatient (OUT) | payer OTHER, SELFPAY | END 2023-07-23 11:00 | disposition home or self-care (01) | LOC: PST 10:59 | PROVIDERS: Visit Provider Obstetrics & Gynecology | DX: Z01.818 Encounter for other preprocedural examination (principal); O02.1 Missed abortion ==

== ENCOUNTER 2023-10-22 08:54 | Outpatient (OUT) | payer OTHER, SELFPAY ==
--- NOTE | 2023-10-22 08:57 | US_ITS ---
[place] [id number] Patient Name: FERNANDA CLIFTON MRN: [id number] date: 1995 Sex: F Assigned Patient Location: [facility] Current Patient Location: [facility] Accession/Order Number: [id number] Exam Date: 10/22/2023 08:57 Report Date: 10/22/2023 10:35 At the request of: MOHINDER BOSWELL Procedure: US OB transvaginal EXAMINATION: US OB transvaginal HISTORY: MISSED MENSES COMPARISON: No relevant comparison available. FINDINGS: GESTATIONAL SAC: Present and normal appearing. YOLK SAC: Present and normal appearing. POLE: Present and normal appearing. CARDIAC: Absent UTERUS: Normal size and appearance. OVARIES: Right: Normal. Left: Normal. CERVIX: 4.6 cm in length and closed. CUL-DE-SAC: Normal. OTHER: None. AGE BY LMP: 8 weeks 2 days HOMER BY LMP: 05/31/2024 AGE BY US CRL: 5 weeks 6 days HOMER BY US CRL: 06/17/2024 US/US OB transvaginal IMPRESSION: 1. Single intrauterine 5 weeks 6 days by today's ultrasound. 2. No detectable heartbeat at this time. Electronically authenticated by: CELY PLATA Date: 10/22/2023 10:35
--- OUTSIDE RECORDS SUMMARY | 2023-10-22 09:09 | XMS_ITS | CCD ---
Author Organization [facility] Care Team Providers Care Foreign Diplomat Name Role Phone Amanda Parks Unavailable Unavailable Family Physician Unavailable Unavailable Nikki vailable Family Physician Unavailable Unavailable Nikki vailable Asad Owens Primary Care Provider [phone] ASAD OWENS Primary Care Unavailable SOMASUNDARAM, SHIVKAMINI Referring Unavail able SOMASUNDARAM, SHIVKAMINI Attending Unavail able SOMASUNDARAM, SHIVKAMINI Admitting Unavail able Angela HARVEY Primary Care Physician Asad Owens DO Primary Care Provider [phone] ASAD OWENS Primary Care Unavailable Asad Owens DO Primary Care Provider [phone] Maryann Rashid Primary Care Physician Unavailable Primary Care Provider Unavailabl e FERNANDA BUTLER Referring Unavailable FERNANDA BUTLER Referring Unavailable JUN SUH Attending Unavail able ASAD OWENS Primary Care Unavailable CORONADOSHAAN ZAPIEN Attending Unavailable ASAD OWENS Primary Care Unavailable JUN SUH Attending Unavail able ASAD OWENS Primary Care Unavailable ASAD OWENS Primary Care Unavailable CONSTANTINO, MARLYS Attending Unavailable FERNANDA BUTLER Attending Unavailable PIPER TIDWELLIN Referring Unavailable FERNANDA BUTLER Attending Unavailable IRENA MARIE A Referring Unavailable SeyferMarlys gasca CNP Unavailable Shaan Coronado CNP Unavailable AHSAN BOSWELL Attending Unavailable Asad OWENS Primary Care Physician [phone] Son Reyes Attending Unavailable Son Reyes Attending Unavailable Son Reyes Attending Unavailable Ahsan BOSWELL Attending Unavailable Ahsan BOSWELL Admitting Unavailable Ahsan BOSWELL Admitting Unavailable Ahsan BOSWELL Attending Unavailable Allergies Allergy Classification Reported Allergen(s) Allergy Type Date of Onset Reaction(s) Facility (16 sources) Ibuprofen; Translations: [IBUPROFEN] Drug Allergy 08-19-19 21 Other (See Comments) [facility] (20 sources) Sulfamethoxazole / Trimethoprim; Translations: [SULFAMETHOXAZOLE-T RIMETHOPRIM] Drug Allergy 08-19-19 21 Hives [facility] (1 source) Ibuprofen; Translations: [Motrin] Drug Allergy [facility] (1 source) Sulfamethoxazole / Trimethoprim; Translations: [Bactrim] Drug Allergy [facility] (1 source) Sulfamethoxazole / Trimethoprim; Translations: [Bactrim DS] Drug Allergy [facility] (1 source) No Known Medication Allergies; Translations: [No Known Medication Allergies] Propensity to adverse reactions (disorder) [facility] Medications Current Medications Medication Drug Class(es) [...] } Pack [Lo Loestrin Fe 28 Day] (11 sources) Estrogen Start: 08-05-2022 take 1 tablet by mouth once daily Lo Loestrin Fe oral tablet TAKE ONE TAB BY MOUTH PER DAY . Start Date: 08/05/22 Status: Ordered Start: 07-02-2022 take 1 tablet by paige th once daily norethindrone-e.estradioL-iron (Lo Loest rin Fe) [...] 500 mg naproxen 500 mg oral tablet (8 sources) Nonsteroidal Anti-inflammatory Drug Start: 05-30-2021 take 1 tablet by mouth twice daily as needed for pain Naprosyn 500 mg Tab 500 mg = 1 tab(s), Oral, BID, PRN for pain, # 20 tab(s), Refills(s) 0, Pharmacy: [facility]/pharmacy #[id number], 160, cm, 05/30/21 9:23:00 EDT, Height/Length Dosing, 68, kg, 05/30/21 9:23:00 EDT, Weight Dosing Start Date: 05/30/21 Status: Ordered omeprazole 40 mg delayed release oral capsule (4 sources) Proton Pump Inhibitor Start: 10-02-2022 take 1 capsule by mouth once daily omeprazole 40 mg Cap-DR 40 mg = 1 cap(s), Oral, Daily, # 30 cap(s), Refills(s) 0, Pharmacy: [facility]/pharmacy #[id number], 160, cm, 10/02/22 14:06:00 EST, Height/Length [...] 10/09/2022 Active Zofran ODT 4 mg Tab-Dis (4 sources) Start: 10-02-2022 take 1 tablet by mouth three times daily Zofran ODT 4 mg Tab-Dis 4 mg = 1 tab(s), Oral, TID, # 15 tab(s), Refills(s) 0, Pharmacy: [facility]/pharmacy #[id number], 160, cm, 10/02/22 14:06:00 EST, Height/Length [...] qWeek, # 4 cap(s), Refills(s) 11, Pharmacy: [facility]/pharmacy #[id number], 160, cm, 11/27/20 10:43:00 EDT, Height/Length Dosing, 69.5, kg, 11/27/20 10:43:00 EDT, Weight Dosing Start Date: 12/04/20 Status: Ordered 20 ml fentaNYL 0.05 mg/ml injection (1 source) Opioid Agonist Start: 09-26-2020 End: 09-26-2020 25 mcg, Intravenous, Every 5 min PRN, Pain, Starting Mary 09/26/20 at 1307, For 4 doses, PACU [...] (Therapy completed) 1 ml heparin sodium, porcine 15907 unt/ml injection (4 sources) Unfractionated Heparin, Anti-coagulant [...] 50,000 intl units (1.25 mg) oral capsule (7 sources) Start: 12-04-2020 take 1 capsule by mouth every week Vitamin D 50,000 intl units (1.25 mg) oral capsule 50,000 International_Unit = 1 cap(s), Oral, qWeek, # 4 cap(s), Refills(s) 11, Pharmacy: [facility]/pharmacy #[id number], 160, cm, 11/27/20 10:43:00 EDT, Height/Length Dosing, 69.5, kg, 11/27/20 10:43:00 EDT, Weight Dosing Start Date: 12/04/20 Status: Ordered Problems Active Problems Problem Classification Problem Date Documented Da te Episodic/Chronic Abdominal pain (20 sources) Chronic pelvic pain of female; Translations: [Pain in female pelvis] Onset: 08-14-2020 08-19-2020 Episodic Complications of surgical procedures or medical care (3 sources) Postoperative wound infection-superficial 11-19-2020 Episodic Contraceptive and procreative management (2 sources) Patient encounter status; Translations: [Encounter for other general counseling and advice on contraception] Episodic Endometriosis (1 source) Endometriosis (clinical); Translations: [Endometriosis] Chronic Epilepsy; convulsions (20 sources) Febrile convulsion; Translations: [Simple febrile convulsions] Onset: 08-19-2020 08-19-2020 Episodic Genitourinary symptoms and ill-defined conditions (20 sources) Dysuria; Translations: [Dark yellow urine] Onset: 08-19-2020 08-19-2020 Episodic Inflammatory diseases of female pelvic organs (1 source) Bacterial vaginosis; Translations: [Acute vaginitis] Episodic Lymphadenitis (10 sources) Generalized enlarged lymph nodes; Translations: [Generalized enlarged lymph nodes] Onset: 08-05-2022 Episodic Malaise and fatigue (8 sources) Fatigue 11-27-2020 Episodic Menstrual disorders (20 sources) Irregular periods; Translations: [Menorrhagia] Onset: 08-19-2020 08-19-2020 Chronic Nausea and vomiting (1 source) Nausea and vomiting; Translations: [Nausea with vomiting, unspecified] Onset: 10-02-2022 Episodic Nonmalignant breast conditions (20 sources) Breast lump; Translations: [Discharge from the breast] Onset: 10-13-2020 10-13-2020 Episodic Nonspecific chest pain (8 sources) Tight chest 11-27-2020 Episodic Nutritional deficiencies (10 sources) Vitamin D deficiency; Translations: [Vitamin D deficiency, unspecified] Onset: 10-08-2022 12-11-2020 Chronic Other connective tissue disease (1 source) Pain in left lower limb; Translations: [Pain in left leg] Onset: 10-06-2023 Episodic Other female genital disorders (18 sources) Pelvic congestion syndrome; Translations: [Other specified conditions associated with female genital organs and menstrual cycle] Onset: 10-13-2020 10-13-2020 Episodic Other female genital disorders (10 sources) Vaginal discharge; Translations: [Other specified noninflammatory disorders of vagina] 03-06-2019 Episodic Other gastrointestinal disorders (20 sources) Irritable bowel syndrome; Translations: [Irritable bowel syndrome without diarrhea] Onset: 08-19-2020 08-19-2020 Chronic Other gastrointestinal disorders (20 sources) Diarrhea; Translations: [Diarrhea, unspecified] Onset: 08-19-2020 08-19-2020 Episodic Other lower respiratory disease (8 sources) Dyspnea 11-27-2020 Episodic Other nutritional; endocrine; and metabolic disorders (1 source) Body mass index 25-29 - overweight; Translations: [Body mass index (BMI) of 25.0 to 29.9] Onset: 10-13-2020 10-13-2020 Chronic Other nutritional; endocrine; and metabolic disorders (10 sources) Gilbert's syndrome; 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] Onset: 10-08-2022 02-25-2015 Chronic Other nutritional; endocrine; and metabolic disorders (20 sources) Body mass index 25-29 - overweight 11-27-2020 Episodic Other nutritional; endocrine; and metabolic disorders (9 sources) Overweight in adulthood with body mass index of 25 or more but less than 30; Translations: [Body mass index (BMI) 25.0-25.9, adult] Onset: 08-05-2022 Episodic Other nutritional; endocrine; and metabolic disorders (1 source) Overweight; Translations: [Overweight] Onset: 08-05-2022 Episodic Other screening for suspected conditions (not mental disorders or infectious disease) (20 sources) Mammography abnormal; Translations: [Cancer cervix screening status] Onset: 10-13-2020 10-13-2020 Episodic Other skin disorders (8 sources) Disorder of nail 03-06-2019 Episodic Other upper respiratory disease (20 sources) Allergic rhinitis; Translations: [Allergic rhinitis, unspecified] Onset: 08-19-2020 08-19-2020 Chronic Otitis media and related conditions (20 sources) Serous otitis media; Translations: [Unspecified nonsuppurative otitis media, unspecified ear] Onset: 08-19-2020 08-19-2020 Episodic Ovarian cyst (10 sources) Ruptured cyst of [...] (1 source) Postoperative state; Translations: [Post-operative state] Syncope (20 sources) Syncope; Translations: [Syncope and collapse] Onset: 08-19-2020 08-19-2020 Episodic Thyroid disorders (10 sources) Goiter; Translations: [Nontoxic goiter, unspecified] Onset: 10-08-2022 11-27-2020 Chronic Unclassified (1 source) Unknown / UNK(Unknown) Onset: 06-16-2018 Unclassified (3 sources) Breast finding 09-18-2020 Unclassified (8 sources) Body mass index 25-29 - overweight; Translations: [Body mass index (BMI) of 25.0 to 29.9] Onset: 10-13-2020 10-13-2020 Unclassified (7 sources) Pain of right breast 08-05-2022 Urinary tract infections (17 sources) Chronic interstitial cystitis; Translations: [Interstitial cystitis (chronic) without hematuria] Onset: 08-19-2020 10-13-2020 Chronic Viral infection (8 sources) Viral disease 03-06-2019 Episodic Past or Other Problems Problem Classification Problem Date Documented Da te Episodic/Chronic Other connective tissue disease (12 sources) Myofascial pain; Translations: [Myalgia, other site] Onset: 04-02-2022 Episodic Unclassified (1 source) PELVIC PAIN IN FEMALE R10.2 59166 Onset: 06-16-2018 Unclassified (1 source) Exposure to 2019 novel coronavirus; Translations: [Contact with and (suspected) exposure to COVID19] Unclassified (8 sources) Onset: 09-02-2015 Resolved: 06-10-2016 06-12-2016 Results Test Name Value Interpretation Reference Range Facility Consent for Treatmenton Consent for Treatment [id number]#1.00TIFF Normal [facility] Discharge Instructionson Discharge Instructions [id number]#[id number] Normal [facility] ED Clinical Summaryon 2023 ED Clinical Summary (Inserted Image. Nikki ble to display) [place] [id number] ED Clinical Summary Person Information Name: FERNANDA CHA [place] Age: 27 Years : 1995 Sex: Female Language: Dominican PCP: Asad OWENS DO, FAAFP Marital Status: Single Visit Id: Visit Reason: Leg pain-swelling; PAIN BEHIND KNEE AND LEFT LEG Speciality: Acuity: 4 Enc Type: Emergency Med Service: Emergency Arrival: 10/06/2023 11:00:50 Discharge: 10/06/2023 12:10:05 LOS: 000 01:10 Checkin: 10/06/2023 11:00:50 Checkout: 10/06/2023 12:10:05 Dispo Type: Home (Routine DC) EVENTS: Event Name Event Status Request Date/Time Start Date/Time Complete Date/Time Arrive Complete 10/06/2023 11:00:50 10/06/2023 11:00:50 10/06/2023 11:00:50 Document Home Meds Request 10/06/2023 11:00:50 Triage Complete 10/06/2023 11:00:50 10/06/2023 11:10:52 10/06/2023 11:10:52 Bed Assign Complete 10/06/2023 11:02:16 10/06/2023 11:02:16 10/06/2023 11:02:16 Dr Exam Complete 10/06/2023 11:02:16 10/06/2023 11:12:17 10/06/2023 11:12:17 RN Exam Complete 10/06/2023 11:02:16 10/06/2023 11:11:49 10/06/2023 11:11:49 Registration Complete 10/06/2023 11:02:44 10/06/2023 11:02:44 10/06/2023 11:02:44 Reg Complete Request 10/06/2023 11:02:44 Reg Bed Request Complete 10/06/2023 11:02:44 10/06/2023 11:02:44 10/06/2023 11:02:44 Registration Request 10/06/2023 11:12:17 US Complete 10/06/2023 11:20:25 10/06/2023 11:31:53 10/06/2023 11:49:09 Discharge Complete 10/06/2023 12:00:49 10/06/2023 12:10:11 10/06/2023 12:10:11 Patient Care Request 10/06/2023 12:02:47 Transfer Complete 10/06/2023 12:10:11 10/06/2023 12:10:11 10/06/2023 12:10:11 ADDRESS: [address] [facility] [id number] PHYS DOC NOTES: MEDICAL INFORMATION: Prescriptions Given: [...] day. Refills: 0. PATIENT EDUCATION INFORMATION: Instructions: Musculoskeletal Pain Follow up: With: Address: When: KAYLIN GIL FAAFP, PATRICIA Kapoor, PED [address] [place] [address] In 3 days 10/09/2023 DIAGNOSIS: 1:Left leg pain Normal [facility] ED Patient Education Noteon 10-06-2023 ED Patient Education Note Orthopedics Musculoskeletal Pain Musculoskeletal pain refers to aches and pains in your bones, joints, muscles, and the tissues that surround them. This pain can occur in any part of the body. It can last for a short time (acute) or a long time (chronic). A physical exam, lab tests, and imaging studies may be done to find the cause of your musculoskeletal pain. Follow these instructions at home: Lifestyle ? Try to control or lower your stress levels. Stress increases muscle tension and can worsen musculoskeletal pain. It is important to recognize when you are anxious or stressed and learn ways to manage it. This may include: ? Meditation or yoga. ? Cognitive or behavioral therapy. ? Acupuncture or massage therapy. ? You may continue all activities unless the activities cause more pain. When the pain gets better, slowly resume your normal activities. Gradually increase the intensity and duration of your activities or exercise. Managing pain, stiffness, and swelling ? Treatment may include medicines for pain and inflammation that are taken by mouth or applied to the skin. Take aqzu-rac-nydgbyl and prescription medicines only as told by your health care provider. ? When your pain is severe, bed rest may be helpful. Lie or sit in any position that is comfortable, but get out of bed and walk around at least every couple of hours. ? If directed, apply heat to the affected area as often as told by your health [...] a greater risk of getting burned. ? If directed, put ice on the painful area. To do this: ? Put ice in a plastic bag. ? Place a towel between your skin and the bag. ? Leave the ice on for 20 minutes, 2?3 times a day. ? Remove the ice if your skin turns bright red. This is very important. If you cannot feel pain, heat, or cold, you have a greater risk of damage to the area. General instructions ? Your health care provider may recommend that you see a physical therapist. This person can help you come up with a safe exercise program. ? If told by your health care provider, do physical therapy exercises to improve movement and strength in the affected area. ? Keep all follow-up visits. This is important. This includes any physical therapy visits. Contact a health care provider if: ? Your pain gets worse. ? Medicines do not help ease your pain. ? You cannot use the part of your body that hurts, such as your arm, leg, or neck. ? You have trouble sleeping. ? You have trouble doing your normal activities. Get help right away if: ? You have a new injury and your pain is worse or different. ? You feel numb or you have tingling in the painful area. Summary ? Musculoskeletal pain refers to aches and pains in your bones, joints, muscles, and the tissues that surround them. ? This pain can occur in any part of the body. ? Your health care provider may recommend that you see a physical therapist. This person can help you come up with a safe exercise program. Do any exercises as told by your physical therapist. ? Lower your stress level. Stress can worsen musculoskeletal pain. Ways to lower stress may include meditation, yoga, cognitive or behavioral therapy, acupuncture, and massage therapy. This information is not intended to replace advice given to you by your health care provider. Make sure you discuss any questions you have with your health care provider. Document Revised: 11/21/2020 Document Reviewed: 10/30/2020 Elsevier Patient Education ? 2022 [employer] Normal [facility] ED Patient Summaryon 024 ED Patient Summary (Inserted Image. Nikki ble to display) [address] [address] Patient Discharge Instructions Person Information Name: FERNANDA CHA Age: 27 Years Arrival Date: 10/06/2023 11:00:50 Discharge Diagnosis: 1:Left leg pain Primary Care Physician: Asad OWENS DO, FAAFP Provider Information Primary Provider: [employer] Cabinet Finisher:None The exam and treatment you received in the Emergency Department were for an urgent problem and are not intended as complete care. It is important that you follow up with a doctor, nurse practitioner, or physician?s seed laboratory assistant for ongoing care. If your symptoms [...] Follow-up Instructions: With: Address: When: Asad OWENS DO, FAAFP, [facility], PED [address] [facility], [facility] [place] [address] In 3 days 10/09/2023 In the event that this physician does not participate in your insurance network, please consult with your insurance company to find a nearby participating provider. Patient Education Materials: Musculoskeletal Pain A MESSAGE TO ALL PATIENTS REGARDING OPIOIDS PRESCRIPTION OPIOIDS: WHAT YOU NEED TO KNOW Prescription opioids can be used to help relieve btyrhzno-os-nridcd pain and are often prescribed following a [...] from the Food and Drug Administration (www.fda.gov/Drugs/ResourcesFo Kristian). ? Visit www.cdc.gov/drugoverdose to learn about the risks of opioids abuse and overdose. ? If you believe you may be struggling with addiction, tell your health healthcare facility administrator and ask for guidance or call [facility]?S National Helpline at 4-935-391-ADTD. s Source: US Department of Health and Human Serv (more content not included)... Normal [facility] LE Venous Duplex Lefton 0 10-06-2023 US LE Venous Duplex Left Exam Date/Time: 10/06/2023 11:49 EST Reason for Exam: Leg pain Report IMPRESSION: NO EVIDENCE OF VENOUS THROMBOSIS INVOLVING VISUALIZED DEEP VEINS OF THE LEFT LEG. CLINICAL HISTORY: Leg pain left leg pain and edema for one to 2 days. 6 weeks . TECHNIQUE: Kurtz scale with compression maneuvers, Color Doppler and Spectral Doppler at rest and with augmentation of the LEFT leg proximal deep veins as below. Farah scale with compression maneuvers of the peroneal and posterior tibial veins was performed. Spontaneous phasic flow evaluation of the contralateral RIGHT common femoral vein. Images were obtained and stored in a permanent archive. COMPARISON: None. RESULT: LEFT LEG: PROXIMAL DEEP VEINS: External Iliac Vein: Compressible with spontaneous flow. Common Femoral Vein: Spontaneous phasic flow with compressibility and augmentation. Deep Femoral Vein: Spontaneous phasic flow with compressibility. Femoral Vein: Spontaneous phasic flow with compressibility and augmentation. Popliteal Vein: Spontaneous phasic flow with compressibility and augmentation. DEEP CALF VEINS: Posterior Tibial Vein: Normal compression. Peroneal Vein: Normal compression. SUPERFICIAL VEIN: Greater Saphenous Vein: Spontaneous phasic flow with compressibility. RIGHT LEG (for comparison): The contralateral right common femoral vein with spontaneous phasic venous flow. Ordering Provider: Ruchi Waldrop FINAL REPORT Dictated: 10/06/2023 12:06 pm Trey Rodrigez MD Signed (Electronic Signature): 10/06/2023 12:06 pm Signed by: Trey Rodrigez MD Transcribed by: SEBASTIAN Technologist: HW Normal [facility] BhCG Quanton 09-25-2023 Beta hCG Qnt 106 mIU/mL High 1-3 [facility] Comment on above: Result Comment: 'F N ON < 1 - 3' ' 0.2 - 1 WEEK = 5 TO 50' ' 1 - 2 WEEKS = 50 - 500' ' 2 - 3 WEEKS = 100 - 5000' ' 3 - 4 WEEKS = 500 - 47498' ' 4 - 5 WEEKS = 1000 - 22683' ' 5 - 6 WEEKS = 87287 - 694421' ' 6 - 8 WEEKS = 53431 - 875677' ' 8 - 12 WEEKS = 58272 - 879061' Performed By: #### 1 [id number] #### [facility] [address] [place] [address] CHEMISTRYOrdered By: SYSTEM SYSTEM on 09-25-2023 HCG.beta subunit Qn 106 m[IU]/mL High 1 - 3 mIU/mL Remisol Chem Comment on above: Result Comment: 'F N ON < 1 - 3' ' 0.2 - 1 WEEK = 5 TO 50' ' 1 - 2 WEEKS = 50 - 500' ' 2 - 3 WEEKS = 100 - 5000' ' 3 - 4 WEEKS = 500 - 90462' ' 4 - 5 WEEKS = 1000 - 84037' ' 5 - 6 WEEKS = 81019 - 919259' ' 6 - 8 WEEKS = 97819 - 051098' ' 8 - 12 WEEKS = 36582 - 339030' Consent for Treatmenton 09-03 Consent for Treatment [id number] Normal [facility] Physician Orderon 09-25-2023 Physician Order [id number] Normal [facility] BhCG Quant[place] 09-23-2023 Beta hCG Qnt 56 mIU/mL High 1-3 [facility] Comment on above: Result Comment: 'F N ON < 1 - 3' ' 0.2 - 1 WEEK = 5 TO 50' ' 1 - 2 WEEKS = 50 - 500' ' 2 - 3 WEEKS = 100 - 5000' ' 3 - 4 WEEKS = 500 - 01393' ' 4 - 5 WEEKS = 1000 - 34526' ' 5 - 6 WEEKS = 39769 - 533388' ' 6 - 8 WEEKS = 78394 - 287387' ' 8 - 12 WEEKS = 02745 - 185479' Performed By: #### 1 [id number], [id number] #### [facility] [address] [place] [address] CHEMISTRYOrdered By: SYSTEM SYSTEM on 09-23-2023 HCG.beta subunit Qn 56 m[IU]/mL High 1 - 3 mIU/mL Remisol Chem Comment on above: Result Comment: 'F N ON < 1 - 3' ' 0.2 - 1 WEEK = 5 TO 50' ' 1 - 2 WEEKS = 50 - 500' ' 2 - 3 WEEKS = 100 - 5000' ' 3 - 4 WEEKS = 500 - 12799' ' 4 - 5 WEEKS = 1000 - 65980' ' 5 - 6 WEEKS = 98180 - 197983' ' 6 - 8 WEEKS = 47694 - 045164' ' 8 - 12 WEEKS = 09560 - 232005' Consent for Treatmenton 09-03 Consent for Treatment [id number] Normal [facility] ED Note-Physicianon 07-16-20 ED Note-Physician Basic Information Time Seen: Son Reyes MD 07/15/2023 08:38 Sorry for the Chief Complaint pt is approx 7 wks preg, reports increase in vomiting, lower abd pain and lower back pain since last night. has had an ultrasound with florecita. History of Present Illness 27-year-old female comes [...] ultrasound was discussed at length with the mold maintenance technician and reviewed by radiologist. There is intrauterine gestational sac with a possible pole, however this is only measuring 6 weeks, 3 days. No cardiac cavity was identified. This is discussed with the patient. Her significant other is now at bedside as well. He reports that patient had a similar ultrasound finding last week in the ROASTERMAN's office as well as an ultrasound yesterday in the office. He is scheduled for another ultrasound next week. Given his additional history, it sounds like the patient is likely experiencing demise, but did explain that I cannot definitively diagnose that today. She is sent for repeat quantitative hCG in 72 hours and to follow-up with ROASTERMAN for definitive diagnosis. Patient was encouraged to [...] Information Ahsan BOSWELL In 3 days 07/18/[address] [place] [address]- Business (1) Additional Instructions: Patient Education Abdominal Pain During Attestation Patient seen and evaluated by the physician seed laboratory assistant. Attending physician was present in the emergency department and supervised care. This visit was performed by both the physician and an APC. I performed all aspects of the MDM as documented. This report was transcribed using voice recognition software. Every effort was made to ensure accuracy, however, inadvertently computerized die filer mistakes may be present. Appropriate healthcare PPE was used in evaluating this patient. The patient was placed in a mask. The healthcare provider was wearing mask, gloves, and utilizing proper hand hygiene. All equipment was properly cleansed. Problem List/Past Medi (more content not included)... Normal [facility] Comment on above: Result Comment: Elec tronically Signed By: Chapincito José PA-C\.br\Date and Time Signed: 07/15/23 16:04 EST\.br\Electronically Co-Signed By: Son Reyes MD\.br\Date and Time Co-Signed: 07/16/23 08:09 EST Auto Diffon 07-15-2023 Basophils/100 WBC (Bld) 0.2 % Normal 0.0-2.0 [facility] Comment on above: Order Comment: Order Added by Discern Expert. Performed By: #### 1 0936153, 7088461, 77423839, 98421113, 8242481, 7513964, 27384858 #### [facility] [address] [place] [address] 78120 Basophils/Leukocyte s Auto (Bld) [Pure # fraction] 0.0 E9/L Normal 0.0-0.2 [facility] Comment on above: Order Comment: Order Added by Discern Expert. Performed By: #### 1 1786592, 4120104, 88413531, 60613174, 6385083, 8861591, 34136939 #### [facility] [address] [place] [address] 60443 Eosinophils/100 WBC (Bld) 0.3 % Normal 0.0-8.0 [facility] Comment on above: Order Comment: Order Added by Discern Expert. Performed By: #### 1 5058449, 0950816, 63558435, 45801234, 8712710, 0714175, 51690689 #### [facility] [address] [place] [address] 53815 Eosinophils/Leukocy kashmir Auto (Bld) [Pure # fraction] 0.0 E9/L Normal 0.0-0.5 [facility] Comment on above: Order Comment: Order Added by Discern Expert. Performed By: #### 1 7471942, 5259956, 34836659, 43331803, 9002426, 7451492, 25322462 #### [facility] [address] [place] [address] 67894 Lymphocytes/100 WBC (Bld) 4.1 % Low 14.0-50.0 [facility] Comment on above: Order Comment: Order Added by Discern Expert. Performed By: #### 1 5970904, 1102365, 26406217, 46986751, 9653985, 9814305, 35474775 #### [facility] [address] [place] [address] 02090 Lymphocytes/Leukocy kash[place] Auto (Bld) [Pure # fraction] 0.3 E9/L Low 1.0-4.0 [facility] Comment on above: Order Comment: Order Added by Discern Expert. Performed By: #### 1 7770959, 1498630, 58485424, 05120156, 0562956, 9750626, 90853090 #### [facility] [address] [place] [address] Monocytes/100 WBC (Bld) 5.3 % Normal 4.0-14.0 [facility] Comment on above: Order Comment: Order Added by Discern Expert. Performed By: #### 1 3059354, 5529887, 71909804, 59842583, 0162854, 9037931, 71395321 #### [facility] [address] [place] [address] 77497 Monocytes/Leukocyte s Auto (Bld) [Pure # fraction] 0.3 E9/L Normal 0.2-1.0 [facility] Comment on above: Order Comment: Order Added by Huang Expert. Performed By: #### 1 2011697, 8809680, 30672560, 03385610, 9685068, 5617978, 47002034 #### [facility] [address] [place] [address] 02875 Neutrophils/100 WBC (Bld) 90.1 % High 36.0-75.0 [facility] Comment on above: Order Comment: Order Added by Huang Expert. Performed By: #### 1 9115549, 2834824, 68544207, 66578026, 8012677, 7443773, 85532526 #### [facility] [address] [place] [address] 37784 Neutrophils/Leukocy kashmir Auto (Bld) [Pure # fraction] 5.6 E9/L Normal 2.0-7.5 [facility] Comment on above: Order Comment: Order Added by Huang Expert. Performed By: #### 1 9076001, 1330100, 40834597, 81896244, 8188171, 2490570, 50943478 #### [facility] [address] [place] [address] 25443 BMPon 07-15-2023 Anion gap [Moles/Vol] 12 mmol/L Normal 6-16 [facility] Comment on above: Performed By: #### 1 5170767, 1695910, 78719784, 97655772, 8445150, 9234590, 19857049 #### [facility] [address] [place] [address] BUN/Creat Ratio 14 No Units Normal 10-20 [facility] Comment on above: Performed By: #### 1 6093750, 6664304, 55243057, 05658145, 5287493, 3489830, 20392998 #### [facility] [address] [place] [address] Calcium [Mass/Vol] 9.3 mg/dL Normal 8.9-11.1 [facility] Comment on above: Performed By: #### 1 4258016, 8525705, 89757331, 94251963, 5361261, 8468628, 78516115 #### [facility] [address] [place] [address] Chloride [Moles/Vol] 102 mmol/L Normal 101-111 [facility] Comment on above: Performed By: #### 1 3437684, 1281718, 51218709, 69803575, 8834697, 9709375, 26263360 #### [facility] [address] [place] [address] CO2 [Moles/Vol] 26 mmol/L Normal 21-31 [facility] Comment on above: Performed By: #### 1 1956724, 5224278, 83191811, 37793764, 0390191, 1550949, 83821123 #### [facility] [address] [place] [address] Creatinine [Mass/Vol] 0.5 mg/dL Normal 0.5-1.3 [facility] Comment on above: Performed By: #### 1 3709666, 7579254, 22869556, 04843187, 3761532, 8817703, 03213160 #### [facility] [address] [place] [address] Glucose [Mass/Vol] 90 mg/dL Normal 55-199 [facility] Comment on above: Performed By: #### 1 7860566, 9379163, 50782185, 74568373, 2415698, 8549339, 66060119 #### [facility] [address] [place] [address] Potassium [Moles/Vol] 3.7 mmol/L Normal 3.5-5.3 [facility] Comment on above: Performed By: #### 1 6685781, 7337161, 35473731, 56638623, 2150185, 2135602, 02243377 #### [facility] [address] [place] [address] Sodium [Moles/Vol] 136 mmol/L Normal 135-145 [facility] Comment on above: Performed By: #### 1 1106110, 2887849, 20908636, 83078694, 7742358, 9436555, 00740559 #### [facility] [address] [place] [address] Urea nitrogen [Mass/Vol] 7 mg/dL Normal 5-21 [facility] Comment on above: Performed By: #### 1 3358547, 4800190, 00466044, 19936344, 1192763, 6064040, 36206931 #### [facility] [address] [place] [address] BhCG Quanton 07-15-2023 [place] 74605 mIU/mL High 1-3 [facility] Comment on above: Result Comment: 'F N ON < 1 - 3' ' 0.2 - 1 WEEK = 5 TO 50' ' 1 - 2 WEEKS = 50 - 500' ' 2 - 3 WEEKS = 100 - 5000' ' 3 - 4 WEEKS = 500 - 36034' ' 4 - 5 WEEKS = 1000 - 15660' ' 5 - 6 WEEKS = 12071 - 926480' ' 6 - 8 WEEKS = 09973 - 458719' ' 8 - 12 WEEKS = 44237 - 797838' Performed By: #### 1 7847003, 5343348, 82699320, 63379962, 0114176, 8793182, 21542390 #### [facility] [address] [place] [address] 77298 CBC w/ Auto Diffon 3 Erythrocyte distribution width (RBC) [Ratio] 13.3 % Normal 10.9-14.2 [facility] Comment on above: Performed By: #### 1 1458339, 6798563, 14698489, 21165669, 1299187, 4157530, 06345563 #### [facility] [address] [place] [address] 13402 Hematocrit (Bld) [Volume fraction] 38.1 % Normal 34.0-46.0 [facility] Comment on above: Performed By: #### 1 4179505, 1921121, 77613965, 34449408, 3429528, 6039289, 34784300 #### [facility] [address] [place] [address] 87840 Hemoglobin (Bld) [Mass/Vol] 12.9 g/dL Normal 12.0-16.0 [facility] Comment on above: Performed By: #### 1 1735021, 9654994, 75784136, 47057810, 9394293, 6794218, 40508582 #### [facility] [address] [place] [address] 10657 MCH (RBC) [Entitic mass] 29.5 pg Normal 27.0-34.0 [facility] Comment on above: Performed By: #### 1 6792024, 3081719, 96583017, 94396062, 5228133, 5314249, 96438150 #### [facility] [address] [place] [address] 22445 MCHC (RBC) [Mass/Vol] 33.8 g/dL Normal 31.4-36.0 [facility] Comment on above: Performed By: #### 1 1464803, 5234597, 72535597, 26342528, 4025249, 2432290, 22477333 #### [facility] [address] [place] [address] 81322 MCV (RBC) [Entitic vol] 87.3 fL Normal 80.0-100.0 [facility] Comment on above: Performed By: #### 1 8623471, 4236475, 83558276, 95749636, 8533370, 1588952, 89258829 #### [facility] [address] [place] [address] Platelet mean volume (Bld) [Entitic vol] 8.5 fL Normal 6.4-10.8 [facility] Comment on above: Performed By: #### 1 3942335, 5467524, 64926858, 69809443, 6820565, 6581526, 14497260 #### [facility] [address] [place] [address] 16671 Platelets (Bld) [#/Vol] 153.0 E9/L Normal 150.0-500. 0 [facility] Comment on above: Performed By: #### 1 2841096, 4820745, 81346528, 34915573, 2225279, 3766659, 38329439 #### [facility] [address] [place] [address] 83958 RBC (Bld) [#/Vol] 4.4 E12/L Normal 4.3-5.9 [facility] Comment on above: Performed By: #### 1 2823949, 5928029, 93750372, 59638573, 2038452, 2617442, 23217692 #### [facility] [address] [place] [address] 86952 WBC corrected for nucl RBC Auto (Bld) [#/Vol] 6.2 E9/L Normal 4.0-11.0 [facility] Comment on above: Performed By: #### 1 1267710, 6652430, 00808674, 44677812, 5111635, 7105351, 74202322 #### [facility] [address] [place] [address] Consent for Treatmenton 07-02 Consent for Treatment [id number] Normal [facility] Discharge Instructionson Discharge Instructions [id number] Normal [facility] ED Clinical Summaryon 2022 ED Clinical Summary (Inserted Image. Nikki ble to display) [place] [id number] ED Clinical Summary Person Information Name: FERNANDA CHA [facility] Age: 27 Years : 1995 Sex: Female Language: Dominican PCP: Asad OWENS DO, FAAFP Marital Status: [...] 07/15/2023 14:26:59 07/15/2023 14:26:59 07/15/2023 14:26:59 ADDRESS: [address] [place] [id number] PHYS DOC NOTES: MEDICAL INFORMATION: Prescriptions Given: [...] During Follow up: With: Address: When: Ahsan BOSWELL [facility], [address] [facility] [place] [address] Business (1) In 3 days 07/18/2023 DIAGNOSIS: Abdominal pain in ; Unspecified abdominal pain Normal [facility] ED Patient Education Noteon 07-15-2023 ED Patient [...] keep your urine pale yellow. ? Take qecz-ptf-hezvwdg and prescription medicines only as told by [...] provider. Document Revised: 04/01/2021 Document Reviewed: 04/01/2021 Elsevier Patient Education ? 2022 [employer] Normal [facility] ED Patient Summaryon 023 ED Patient Summary (Inserted Image. Nikki ble to display) [address] [address] Patient Discharge Instructions Person Information Name: FERNANDA CHA Age: 27 Years Arrival Date: 07/15/2023 08:25:24 Discharge Diagnosis: Abdominal pain in ; Unspecified abdominal pain Primary Care Physician: Asad OWENS DO, FAAFP Provider Information Primary Provider: Son Reyes MD [employer] Finisher:Chapincito José PA-C The exam and treatment you received in the Emergency Department were for an urgent problem and are not intended as complete care. It is important that you follow up with a doctor, nurse practitioner, or physician?s seed laboratory assistant for ongoing care. If your symptoms become worse or you do not improve as expected and you are unable to reach your usual health care provider, you should return to the Emergency Department. We are available 24 hours a day. FERNANDA CHA has been given the following list of patient education materials, prescriptions and follow-up instructions: Follow-up Instructions: With: Address: When: Ahsan [facility], [address] [place] [address] [place] [address] Business (1) In 3 days 07/18/2023 In the event that this physician does not participate in your insurance network, please consult with your insurance company to find a nearby participating provider. Patient Education Materials: Abdominal Pain During A MESSAGE TO ALL PATIENTS REGARDING OPIOIDS PRESCRIPTION OPIOIDS: WHAT YOU NEED TO KNOW Prescription opioids can be used to help relieve cabqkett-lf-zlwiqp pain and are often prescribed following a [...] be struggling with addiction, tell your health healthcare facility administrator and ask for guidanc (more content not included)... Normal [facility] Hep Func Panelon 07-15-2023 Albumin [Mass/Vol] 4.2 g/dL Normal 3.3-5.0 [facility] Comment on above: Performed By: #### 1 3394033, 8652823, 92198307, 18680241, 1168923, 7330631, 52841850 #### [facility] [address] [place] [address] Albumin/Globulin [Mass ratio] 1.5 {ratio} Normal 1.1-2.2 [facility] Comment on above: Performed By: #### 1 2863357, 2848123, 12069054, 53109636, 4109563, 4354517, 58443341 #### [facility] [address] [place] [address] 52337 Alk Phos 56 Int._Unit/L Normal 21-98 [facility] Comment on above: Performed By: #### 1 3078678, 6942247, 36129004, 50657291, 3612663, 0510864, 52502489 #### [facility] [address] [place] [address] ALT 11 Int._Unit/L Normal 6-46 [facility] Comment on above: Performed By: #### 1 3972202, 0543653, 55189043, 20986039, 1120177, 8465684, 89417368 #### [facility] [address] [place] [address] AST 15 Int._Unit/L Normal 5-43 [facility] Comment on above: Performed By: #### 1 1826243, 3705777, 95632669, 95124867, 9821626, 8170432, 68584219 #### [facility] [address] [place] [address] Bili Direct 0.2 mg/dL Normal 0.1-0.4 [facility] Comment on above: Performed By: #### 1 0425867, 4170132, 72731732, 87698266, 7161308, 5613651, 31341023 #### [facility] [address] [place] [address] Bili Indirect 1.1 mg/dL High 0.1-0.9 [facility] Comment on above: Performed By: #### 1 5736170, 2927347, 28115695, 44666533, 4255973, 2125677, 35669302 #### [facility] [address] [place] [address] 28537 Bili Total 1.3 mg/dL High 0.0-1.1 [facility] Comment on above: Performed By: #### 1 4257072, 7119286, 92178182, 12472543, 9309099, 3884751, 61977762 #### [facility] [address] [place] [address] 35904 Globulin (S) [Mass/Vol] 2.8 g/dL Normal 1.4-4.0 [facility] Comment on above: Performed By: #### 1 8534930, 3776824, 65677891, 42017143, 4972424, 4974530, 08999994 #### [facility] [address] [place] [address] 93465 Protein [Mass/Vol] 7.0 g/dL Normal 6.0-7.8 [facility] Comment on above: Performed By: #### 1 4443693, 9970213, 22606572, 18643187, 8661924, 4540961, 30551695 #### [facility] [address] [place] [address] 46989 Lipase Levelon 07-15-2023 Lipase Lvl 13 unit/L Normal 13-58 [facility] Comment on above: Performed By: #### 1 2957544, 0023099, 95436113, 85215230, 4258730, 8832085, 68217471 #### [facility] [address] [place] [address] 29295 Physician Orderon 07-15-2023 Physician Order [id number] Normal [facility] U BetaHcg Qualon 07-15-2023 HCG.beta subunit (U) [Moles/Vol] Positive Normal [facility] Comment on above: Performed By: #### 2 5461813 #### [facility] [address] [place] [address] 30914 UA With Cult Reflexon 2022 Bacteria LM Ql (Urine sed) TRACE Normal Trace [facility] Comment on above: Performed By: #### 1 1280060, 9497476, 41445055, 41491130, 1305779, 6172872, 71842654 #### [facility] [address] [place] [address] Bilirubin Ql (U) Negative Normal Negative [facility] Comment on above: Performed By: #### 1 9754828, 7861573, 18153648, 00458692, 0917984, 7546036, 75552471 #### [facility] [address] [place] [address] Clarity (U) CLEAR Normal Clear [facility] Comment on above: Performed By: #### 1 3601221, 5508276, 78195301, 14271031, 6085057, 7486028, 36102254 #### [facility] [address] [place] [address] 73520 Color (U) YELLOW Normal Yellow [facility] Comment on above: Performed By: #### 1 7699212, 3055161, 42980544, 44260310, 8187761, 7215557, 29168675 #### [facility] [address] [place] [address] Epithelial cells.squamous LM.HPF (Urine sed) [#/Area] 0-2 Normal 0-2 [facility] Comment on above: Performed By: #### 1 1071507, 9313920, 61909203, 06425634, 2064792, 7403129, 16519600 #### [facility] [address] [place] [address] Glucose Test strip (U) [Mass/Vol] Negative Normal Negative [facility] Comment on above: Performed By: #### 1 0852764, 3155497, 64282416, 28385658, 9223972, 6034173, 50695460 #### [facility] [address] [place] [address] Hemoglobin Ql (U) Negative Normal Negative [facility] Comment on above: Performed By: #### 1 2392470, 3746047, 54063753, 86562738, 2364339, 3190099, 31260618 #### [facility] [address] [place] [address] 58986 Ketones (U) [Mass/Vol] 1+ Abnormal Negative [facility] Comment on above: Performed By: #### 1 2927287, 4032978, 52198300, 62623768, 3343648, 2000679, 04853300 #### [facility] [address] [place] [address] 28839 Old Stine.plasma/Lith ium.RBC (Bld) [Mass ratio] 0-3 Normal 0-3 [facility] Comment on above: Performed By: #### 1 4008403, 3941312, 32474567, 57682849, 2547261, 7678983, 86673659 #### [facility] [address] [place] [address] Mucus Ql (Urine sed) TRACE Normal [facility] Comment on above: Performed By: #### 1 2535055, 8456861, 41122120, 98524127, 7669274, 6631472, 51744014 #### [facility] [address] [place] [address] Nitrite Ql (U) Negative Normal Negative [facility] Comment on above: Performed By: #### 1 4503105, 4306001, 31044925, 26143593, 2333080, 9570885, 59391659 #### [facility] [address] [place] [address] 99580 pH (U) 7.0 [pH] Invalid Interpretation Code 5.0-9.0 [facility] Comment on above: Performed By: #### 1 6122540, 2820646, 56048286, 14906258, 1214989, 6079640, 86649290 #### [facility] [address] [place] [address] 23721 Protein (U) [Mass/Vol] Negative Normal Negative [facility] Comment on above: Performed By: #### 1 7577061, 4639393, 92559079, 81300267, 9238033, 2734075, 27185218 #### [facility] [address] [place] [address] 42466 Specific gravity (U) [Rel density] 1.020 Invalid Interpretation Code 1.005-1.03 0 [facility] Comment on above: Performed By: #### 1 9337098, 6947344, 84198495, 36000485, 6072229, 1358139, 24890433 #### [facility] [address] [place] [address] 95003 Type of Urine collection method Clean Catch Normal [facility] Comment on above: Performed By: #### 1 9792107, 8889112, 60719459, 68804735, 6467737, 6232198, 63046148 #### [facility] [address] [place] [address] 25058 Urobilinogen Qn (U) 0.2 {Lorie'U}/dL Normal 0.0-1.0 [facility] Comment on above: Performed By: #### 1 4188513, 9409609, 91631853, 89588301, 6177749, 9675668, 26562153 #### [facility] [address] [place] [address] 15982 WBC Auto Ql (U) TRACE Abnormal Negative [facility] Comment on above: Performed By: #### 1 4723903, 3744598, 69236359, 68519824, 6457682, 2724784, 51680282 #### [facility] [address] [place] [address] WBC LM.HPF (Urine sed) [#/Area] 0-5 Normal 0-5 [facility] Comment on above: Performed By: #### 1 0894093, 5181759, 09592900, 23214933, 3817477, 2952587, 23684519 #### [facility] [address] [place] [address] US 1st Trimesteron 07-15-2023 US 1st Trimester [...] corresponding gestational age +/- 1 week are: Labette Rump Length: 0.5 cm Composite Ultrasound Age: [...] Transabdominal Ultrasound Performed Transvaginal Ultrasound Performed Normal [facility] US Transvaginalon 07-15-2023 US Transvaginal Exam Date/Time: 07/15/2023 11:53 EST Reason for Exam: Pain Report IMPRESSION: PLEASE SEE ULTRASOUND REPORT. CLINICAL HISTORY: Pain COMPARISON: NONE. FINDINGS: Ordering Provider: Chapincito José FINAL REPORT Dictated: 07/15/2023 1:30 pm Mariusz Sepulveda MD, V. Signed (Electronic Signature): 07/15/2023 1:30 pm Signed by: Mariusz Sepulveda MD, V. Transcribed by: SEBASTIAN Technologist: HW Normal [facility] eGFRon 07-15-2023 GFR/1.73 sq M.predicted among non-blacks MDRD (S/P/Bld) [Vol rate/Area] mL/min/{1.73_m2} Normal >=59 [facility] Comment on above: Order Comment: Order added by Discern Expert. Performed By: #### 1 1496017, 6647002, 10743450, 00181579, 5051957, 5949269, 38018111 #### [facility] [address] [place] [address] ED Note-Physicianon 02-26-20 ED Note-Physician Basic Information [...] OWENS In 3 days 02/22/2023 EDT [address] [facility], [place] [address]- Business (1) Additional Instructions: Return to the [...] duct lesion, nipple or areolar lesion (except ), open, male or female, 1 or more lesions (11/01/2020), Esophagogastroduodenoscopy (04/14/2019), Laparoscopy (2018), Colonoscopy (02/25/2015), wisdom teeth removed x4 (2010). Medications Inpatient No active inpatient medications Home Lo Loestrin Fe oral tablet Naprosyn 500 mg Tab, 500 mg= 1 tab(s), Oral, BID, PRN omeprazole 40 mg Cap-DR, 40 mg= 1 cap(s), Oral, Daily Vitamin D 50,000 intl units (1.25 mg) oral capsule, 66781 International_Unit= 1 cap(s), Oral, qWeek, 11 refills, Not taking Zofran ODT 4 mg Tab-Dis, 4 mg= 1 tab(s), Oral, TID Allergies Vitaly (more content not included)... Normal [facility] Comment on above: Result Comment: Elec tronically Signed By: Eric PAGE, Son\.br\Date and Time Signed: 02/24/23 22:24 EDT Discharge Instructionson Discharge Instructions [id number]:127 Normal [facility] Auto Diffon 02-19-2023 Basophils/100 WBC (Bld) 0.3 % Normal 0.0-2.0 [facility] Comment on above: Order Comment: Order Added by Discern Expert. Performed By: #### 1 9926286, 5629420, 83850455, 44831197, 3202889, 4918126, 23855452 #### [facility] [address] [place] [address] 35889 Basophils/Leukocyte s Auto (Bld) [Pure # fraction] 0.0 E9/L Normal 0.0-0.2 [facility] Comment on above: Order Comment: Order Added by Discern Expert. Performed By: #### 1 5200612, 2695683, 18825119, 68655110, 4854819, 0635382, 50051765 #### [facility] [address] [place] [address] 66177 Eosinophils/100 WBC (Bld) 0.7 % Normal 0.0-8.0 [facility] Comment on above: Order Comment: Order Added by Discern Expert. Performed By: #### 1 0039535, 9141947, 56820964, 36937877, 0997463, 5850427, 55435945 #### [facility] [address] [place] [address] 84797 Eosinophils/Leukocy kash[place] Auto (Bld) [Pure # fraction] 0.0 E9/L Normal 0.0-0.5 [facility] Comment on above: Order Comment: Order Added by Discern Expert. Performed By: #### 1 0770780, 3592152, 80346488, 31584262, 3373472, 1687510, 61250511 #### [facility] [address] [place] [address] 04833 Lymphocytes/100 WBC (Bld) 27.4 % Normal 14.0-50.0 [facility] Comment on above: Order Comment: Order Added by Discern Expert. Performed By: #### 1 8254170, 0682047, 97696676, 63866067, 3597726, 1046158, 75284933 #### [facility] [address] [place] [address] 37641 Lymphocytes/Leukocy kash[place] Auto (Bld) [Pure # fraction] 1.8 E9/L Normal 1.0-4.0 [facility] Comment on above: Order Comment: Order Added by Discern Expert. Performed By: #### 1 7252051, 8009848, 98841502, 06714995, 5852627, 7561868, 41974579 #### [facility] [address] [place] [address] Monocytes/100 WBC (Bld) 5.2 % Normal 4.0-14.0 [facility] Comment on above: Order Comment: Order Added by Discern Expert. Performed By: #### 1 7921428, 0759377, 86515563, 89969711, 0775264, 9402557, 11119952 #### [facility] [address] [place] [address] Monocytes/Leukocyte s Auto (Bld) [Pure # fraction] 0.4 E9/L Normal 0.2-1.0 [facility] Comment on above: Order Comment: Order Added by Huang Expert. Performed By: #### 1 2301044, 0399967, 73396998, 76943977, 0001559, 7377661, 16518999 #### [facility] [address] [place] [address] Neutrophils/100 WBC (Bld) 66.4 % Normal 36.0-75.0 [facility] Comment on above: Order Comment: Order Added by Huang Expert. Performed By: #### 1 9241217, 2800561, 43435752, 81817394, 6700158, 2301846, 47018961 #### [facility] [address] [place] [address] Neutrophils/Leukocy kashmir Auto (Bld) [Pure # fraction] 4.5 E9/L Normal 2.0-7.5 [facility] Comment on above: Order Comment: Order Added by Huang Expert. Performed By: #### 1 5935475, 2362668, 54024371, 48487345, 2678606, 2233604, 03802739 #### [facility] [address] [place] [address] B hCG Qualon 07-21-2023 Beta hCG Ql Negative Normal [facility] Comment on above: Performed By: #### 1 1901836, 1466693, 60848837, 64160446, 8262376, 8990414, 46032726 #### [facility] [address] [place] [address] BMPon 02-19-2023 Creatinine [Mass/Vol] 0.5 mg/dL Normal 0.5-1.3 [facility] Comment on above: Performed By: #### 1 1903625, 4985905, 25380666, 28121535, 4617184, 3819537, 90084315 #### [facility] [address] [place] [address] Urea nitrogen [Mass/Vol] 10 mg/dL Normal -21 [facility] Comment on above: Performed By: #### 1 0777036, 6178834, 47642009, 94630607, 5442091, 1637809, 02148755 #### [facility] [address] [place] [address] Urea nitrogen/Creatinine [Mass ratio] 20 No Units Normal 10-20 [facility] Comment on above: Performed By: #### 1 0851494, 5294895, 78443673, 74234271, 1397987, 5572469, 38175346 #### [facility] [address] [place] [address] Anion gap [Moles/Vol] 13 mmol/L Normal 6-16 [facility] Comment on above: Performed By: #### 1 8016286, 3065996, 15090674, 95564730, 1271713, 6996202, 67859776 #### [facility] [address] [place] [address] Calcium [Mass/Vol] 9.4 mg/dL Normal 8.9-11.1 [facility] Comment on above: Performed By: #### 1 4030266, 7841357, 36605284, 17896788, 1326540, 7978825, 58012135 #### [facility] [address] [place] [address] Chloride [Moles/Vol] 105 mmol/L Normal 101-111 [facility] Comment on above: Performed By: #### 1 2982794, 5766928, 64066797, 65398833, 1784524, 1655529, 60941065 #### [facility] [address] [place] [address] CO2 [Moles/Vol] 24 mmol/L Normal 21-31 [facility] Comment on above: Performed By: #### 1 6769980, 0291370, 19143877, 59425391, 4057162, 5420868, 10153456 #### [facility] [address] [place] [address] Glucose [Mass/Vol] 92 mg/dL Normal 55-199 [facility] Comment on above: Result Comment: If t his glucose result represents a fasting glucose, interpretation should refer to the following reference range: 55-99 mg/dL Performed By: #### 1 7979606, 7622436, 38820625, 71055609, 3950402, 0216054, 34805582 #### [facility] [address] [place] [address] Potassium [Moles/Vol] 3.4 mmol/L Low 3.5-5.3 [facility] Comment on above: Performed By: #### 1 5273427, 8223763, 28666322, 19241543, 3574142, 5252205, 08114469 #### [facility] [address] [place] [address] Sodium [Moles/Vol] 139 mmol/L Normal 135-145 [facility] Comment on above: Performed By: #### 1 5950563, 6404980, 22889619, 01267779, 6929871, 0700806, 14533250 #### [facility] [address] [place] [address] CBC w/ Auto Diffon 3 Erythrocyte distribution width (RBC) [Ratio] 12.7 % Normal 10.9-14.2 [facility] Comment on above: Performed By: #### 1 6457108, 6441550, 50376220, 44204255, 7734447, 9556977, 34059242 #### [facility] [address] [place] [address] Hematocrit (Bld) [Volume fraction] 40.0 % Normal 34.0-46.0 [facility] Comment on above: Performed By: #### 1 0304320, 3889007, 59258209, 23190368, 1734597, 5533949, 51527112 #### [facility] [address] [place] [address] Hemoglobin (Bld) [Mass/Vol] 13.7 g/dL Normal 12.0-16.0 [facility] Comment on above: Performed By: #### 1 0775801, 3409807, 47340449, 16321465, 4366585, 5564458, 99132466 #### [facility] [address] [place] [address] MCH (RBC) [Entitic mass] 29.4 pg Normal 27.0-34.0 [facility] Comment on above: Performed By: #### 1 3843404, 4597973, 07252479, 05743809, 4581723, 1862801, 71773374 #### [facility] [address] [place] [address] MCHC (RBC) [Mass/Vol] 34.1 g/dL Normal 31.4-36.0 [facility] Comment on above: Performed By: #### 1 9016728, 3170254, 88217062, 03447568, 0724209, 9165095, 65794354 #### [facility] [address] [place] [address] MCV (RBC) [Entitic vol] 86.2 fL Normal 80.0-100.0 [facility] Comment on above: Performed By: #### 1 5937310, 0936026, 07485229, 69073441, 6476087, 9015918, 46048136 #### [facility] [address] [place] [address] Platelet mean volume (Bld) [Entitic vol] 8.0 fL Normal 6.4-10.8 [facility] Comment on above: Performed By: #### 1 8212876, 5847309, 34387771, 24692872, 6388228, 9886375, 60211547 #### [facility] [address] [place] [address] Platelets (Bld) [#/Vol] 197.0 E9/L Normal 150.0-500. 0 [facility] Comment on above: Performed By: #### 1 4362340, 5762905, 35404680, 25030273, 1879835, 0960270, 76515186 #### [facility] [address] [place] [address] RBC (Bld) [#/Vol] 4.6 E12/L Normal 4.3-5.9 [facility] Comment on above: Performed By: #### 1 2254884, 4053237, 30173649, 76616129, 9454372, 0464338, 55498874 #### [facility] [address] [place] [address] WBC corrected for nucl RBC Auto (Bld) [#/Vol] 6.7 E9/L Normal 4.0-11.0 [facility] Comment on above: Performed By: #### 1 1318029, 0464322, 55002830, 46630799, 0106341, 3724855, 90655255 #### [facility] [address] [place] [address] Consent for Treatmenton 01-31 Consent for Treatment [id number]:127 Normal [facility] ED Clinical Summaryon 2022 ED Clinical Summary (Inserted Image. Nikki ble to display) [address] [address] ED Clinical Summary Person Information Name: FERNANDA CHA [facility] Age: 27 Years : 1995 Sex: Female Language: Dominican PCP: NONE, XXXX Marital Status: Single Visit [...] 02/19/2023 21:26:56 02/19/2023 21:26:56 02/19/2023 21:26:56 ADDRESS: [address] [place] [id number] [facility] DOC NOTES: MEDICAL INFORMATION: Prescriptions Given: Medications [...] With: Address: When: Asad Mcintyre, [address] [place], [place] [id number] Mendor (1) In 3 days 02/22/2023 Comments: Return to the emergency room if your symptoms get worse or any new symptoms DIAGNOSIS: 1:Near syncope Normal [facility] ED Patient Education Noteon 02-19-2023 ED Patient [...] these instructions at home: Medicines ? Take gcnb-jku-qqkfmse and prescription medicines only as told by [...] Reviewed: 11/27/2021 Elsevier Patient Education ? 2022 [employer] Normal [facility] ED Patient Summaryon 023 ED Patient Summary (Inserted Image. Nikki ble to display) [address] [address] Patient Discharge Instructions Person Information Name: FERNANDA CHA Age: 27 Years Arrival Date: 02/19/2023 17:11:01 Discharge Diagnosis: 1:Near syncope Primary Care Physician: NONE, XXXX Provider Information Primary Provider: Son Reyes MD [employer] Finisher:None The exam and treatment you received in the Emergency Department were for an urgent problem and are not intended as complete care. It is important that you follow up with a doctor, nurse practitioner, or physician?s seed laboratory assistant for ongoing care. If your symptoms [...] Follow-up Instructions: With: Address: When: Asad OWENS [address] [place] [address] A [place], [place] [id number] Business (1) In 3 days 02/22/2023 Comments: [...] opioids can be used to help relieve dyaklkvb-qr-qdmlgg pain and are often prescribed following a [...] be struggling with addiction, tell your health healthcare facility administrator and ask for guidance or call [facility]?S National Help (more content not included)... Normal [facility] Monitor Recordon 02-19-2023 Monitor Record [id number]:127 Normal [facility] Monitor Record [id number]#[id number]:127 Normal [facility] Monitor Record [id number]#[id number]:127 Normal [facility] PT & PTTon 02-19-2023 aPTT Coag (PPP) [Time] 34.7 second(s) Normal 25.1-36.5 [facility] Comment on above: Result Comment: Para meter [...] the same coagulation reagent and instrumentation as [facility]. Currently there are no coagulation studies available worldwide for children to 14 days, and no normal ranges. Heparin therapeutic range (represented by Anti-Factor Xa activity of 0.2 - 0.4 U/mL) corresponds to PTT of 56.6 - 109.0 sec. Performed By: #### 1 8199514, 0692004, 89954866, 19281791, 3115670, 8177603, 58808568 #### [facility] [address] [place] [address] INR Coag (PPP) [Relative time] 1.0 {INR} Invalid Interpretation Code [facility] Comment on above: Result Comment: INR results are specifically intended to assess patients stabilized on long-term Anticoagulation therapy suggested INR?s ?Less Intensive Anticoagulation? 2.0 ? 3.0 Conventional Range 3.0 ? 4.5 Performed By: #### 1 3432177, 0264213, 18309758, 84179988, 8642944, 9507410, 20956104 #### [facility] [address] [place] [address] PT Coag (PPP) [Time] 11.1 second(s) Normal 9.4-12.5 [facility] Comment on above: Result Comment: 15 d [...] the same coagulation reagent and instrumentation as [facility]. Currently there are no coagulation studies available worldwide for children to 14 days, and no normal ranges. Performed By: #### 1 6657868, 1566174, 12819911, 87459483, 5749999, 4779123, 05472888 #### [facility] [address] [place] [address] Progress Note-Nurseon 2022 Progress Note-Nurse Patient to CT scan Normal [facility] Troponin 0 Hr.on 02-19-2023 Troponin I.cardiac [Mass/Vol] ng/mL Low 10.10-27.1 0 [facility] Comment on above: Result Comment: The 95% CI (Confidence Interval) PPV (Positive Predictive Value) for myocardial infarction in females is 38 pg/mL, in males 51 pg/mL. The results should be used in conjunction with clinical conditions of myocardial infarction. (Access High Sensitivity Troponin I Instructions For Use, Patricia Fareed, March 2018) Performed By: #### 1 3913304, 6086067, 19709732, 00195989, 3376013, 1036612, 82501228 #### [facility] [address] [place] [address] Troponin 3 Hr.on 02-19-2023 Troponin I.cardiac [Mass/Vol] ng/mL Low 10.10-27.1 0 [facility] Comment on above: Result Comment: The 95% CI (Confidence Interval) PPV (Positive Predictive Value) for myocardial infarction in females is 38 pg/mL, in males 51 pg/mL. The results should be used in conjunction with clinical conditions of myocardial infarction. (Access High Sensitivity Troponin I Instructions For Use, [employer], March 2018) Performed By: #### 1 1033664, 8637887, 53347803, 55597890, 5025740, 6569755, 78750369 #### [facility] [address] [place] [address] XR Chest Single Viewon 02-19 XR Chest [...] mGy = na DAP = na Normal [facility] XR Neck Soft Tissueon 2022 XR Neck [...] SEBASTIAN Technologist: AP Technical Comments Radiation Dose: Kar in mGy = na DAP = na Normal [facility] eGFRon 02-19-2023 GFR/1.73 sq M.predicted among non-blacks MDRD (S/P/Bld) [Vol rate/Area] 130 mL/min/1.73 m2 Normal >=59 [facility] Comment on above: Order Comment: Order added by Discern Expert. Result Comment: Assistant Manager Bilingual salvador kidney disease could be indicated at eGFR's of less than 60 mL/min/1.73m2. Kidney failure is indicated at less than 15 mL/min/1.73m2. Performed By: #### 1 8813123, 4862145, 06033216, 74854430, 3873338, 1124172, 21532840 #### [facility] [address] [place] [address] [facility] 10-12-2022 CNPN Telephone (GENSF) FERNANDA CHA ([id number]) 1995 F Date Time Provider Department 10/12/22 BELLA BARRERA During your visit today, we recorded the following information about you: Bella Barrera RN 10/12/2022 1:45 PM Signed Attempted to reach patient re: appointment. No answer. Message left with callback number. Bella Barrera, RN Allergies As of Date: 10/12/2022 (Not on File) Date Reviewed: 08/25/2022 Reviewed by: Fernanda Butler DO - Fully Assessed Reason for Visit: Appointment [186] Problem List As Of Date: 10/12/2022 (None) Encounter Status:Closed by BELLA BARRERA on 10/14/22 [facility] DIAG W LAINA BILon 2022 [facility] DIAG W LAINA KAYA * * *Final Report* * * DATE OF EXAM: Oct 07 2022 11:40AM MCW 0627 - [facility] DIAG W LAINA KAYA / PROCEDURE REASON: multiple diagnoses * * * * Physician Interpretation * * * * RESULT: #[id number] - [facility] DIAG W LAINA KAYA #[id number] - [facility] US BREAST LTD RT BILATERAL DIGITAL DIAGNOSTIC [...] exam dated: 10/07/2022 breast MRI - [facility]. The tissue of both [...] exam dated: 10/07/2022 breast MRI - [facility]. Color flow and real-time [...] representation from Breast Imaging, Internal Medicine, Women's Health, Family Medicine, and Medical/Surgical Oncology, the [facility] has carefully reviewed the data and reached [...] their providers when to stop screening mammograms. Budget Specialist(s): Caro Mcrae RT(R)(M), [facility] OVERALL STUDY BIRADS: 2 Benign finding Automotive Engineering Teacher: Radha Transcribe Date/Time: Oct 07 2022 11:47A Dictated by : IZZY BOONE MD This examination was interpreted and the report reviewed and electronically signed by: IZZY BOONE MD on Oct 07 2022 12:01PM EST [id number] Normal [facility] MICHEALG W LAINA BILATon 03-0 [facility] US BREAST LTD RTon 10-07 [facility] US BREAST LTD RT * * *Final Report* * * DATE OF EXAM: Oct 07 2022 11:59AM MCW 0594 - [facility] US BREAST LTD RT / PROCEDURE REASON: multiple diagnoses * * * * Physician Interpretation * * * * RESULT: #[id number] - [facility] DIAG W LAINA KAYA #[id number] - [facility] US BREAST LTD RT BILATERAL DIGITAL DIAGNOSTIC [...] exam dated: 10/07/2022 breast MRI - [facility] [place]. The tissue of both breasts is extremely [...] exam dated: 10/07/2022 [facility] Color flow and real-time ultrasound of the [...] representation from Breast Imaging, Internal Medicine, Women's Health, Family Medicine, and Medical/Surgical Oncology, the [facility] has carefully reviewed the data and reached [...] their providers when to stop screening mammograms. Budget Specialist(s): Caro Mcrae RT(R)(M), [facility] [place] OVERALL STUDY BIRADS: 2 Benign finding Automotive Engineering Teacher: Radha Transcribe Date/Time: Oct 07 2022 11:47A Dictated by : IZZY BOONE MD This examination was interpreted and the report reviewed and electronically signed by: IZZY BOONE MD on Oct 07 2022 12:01PM EST [id number] Normal [facility] MRI BREAST WO/W IVCON BILon 10-07-2022 MRI BREAST WO/W IVCON KAYA * * *Final Report* * * DATE OF EXAM: Oct 07 2022 8:25AM ABM 0773 - MRI BREAST WO/W IVCON KAYA / PROCEDURE REASON: multiple diagnoses * * * * Physician Interpretation * * * * #[id number] - MRI BREAST WO/W IVCON KAYA BREAST [...] either breast. Follow-up with ACR/NCCN guidelines. Norma Mckeon M.D. fa/penrad:10/07/2022 08:48:25 Budget Specialist(s): RT Emma(R), [facility] BI-RADS: 2 Benign finding Multiple national specialty organizations have released breast cancer screening guidelines for women at average risk for developing breast cancer - guidelines that are based on both evidence and opinion, yet differ on when to start and how often to screen for breast cancer. With representation from Breast Imaging, Internal Medicine, Women's Health, Family Medicine, and Medical/Surgical Oncology, the [facility] has carefully reviewed the data and reached [...] their providers when to stop screening mammograms. Automotive Engineering Teacher: Radha Transcribe Date/Time: Oct 07 2022 8:12A Dictated by : NORMA MCKEON MD This examination was interpreted and the report reviewed and electronically signed by: NORMA MCKEON MD on Oct 07 2022 8:48AM EST [id number] Normal [facility] MRI BREAST WO/W IVCON BILATo n 10-07-2022 [facility] US BREAST LTD RTon [facility] CHEMISTRYOrdered By: SYSTEM SYSTEM on 10-02-2022 Albumin [...] 0.8 mg/dL Normal 0.1 - 0.9 mg/dL [facility] Calcium [Mass/Vol] 9.0 mg/dL Normal 8.9 - 11. 1 mg/dL [facility] Chloride [Moles/Vol] 104 mmol/L Normal 101 - 111 mmol/L [facility] CO2 [Moles/Vol] 26 mmol/L Normal 21 - 31 mmol/L [facility] Creatinine [Mass/Vol] 0.6 mg/dL Normal 0.5 - 1.3 mg/dL [facility] GFR/1.73 sq M.predicted among blacks MDRD (S/P/Bld) [Vol rate/Area] mL/min/1.73 m2 Normal >=59mL/min /1.73 m2 FT Chem S GFR/1.73 sq M.predicted among non-blacks MDRD (S/P/Bld) [Vol rate/Area] mL/min/1.73 m2 Normal >=59mL/min /1.73 m2 FT Chem S Globulin (S) [Mass/Vol] 3.4 g/dL Normal 1.4 - 4.0 gm/dL [facility] Remisol Glucose [Mass/Vol] 105 mg/dL Normal 55 - 199 mg/dL [facility] Lipase [Catalytic activity/Vol] 39 U/L Normal 13 - 58 unit/L [facility] Potassium [Moles/Vol] 4.1 mmol/L Normal 3.5 - 5.3 mmol/L [facility] Protein [Mass/Vol] 7.3 g/dL Normal 6.0 - 7.8 gm/dL [facility] Sodium [Moles/Vol] 139 mmol/L Normal 135 - 145 mmol/L [facility] Urea nitrogen [Mass/Vol] 11 mg/dL Normal 5 - 21 mg/dL [facility] Urea nitrogen/Creatinine [Mass ratio] 18 mg/mg Normal 10 - 20 [facility] HEMATOLOGYOrdered By: SYSTEM SYSTEM on 10-02-2022 Basophils/100 [...] 8.3 fL Normal 6.4 - 10.8 fL [facility] HemeAutoSS Platelets (Bld) [#/Vol] 216.0 E9/L Normal 150.0 - 500.0 E9/L [facility] HemeAutoSS RBC (Bld) [#/Vol] 4.6 E12/L Normal 4.3 - 5.9 E12/L [facility] HemeAutoSS WBC corrected for nucl RBC Auto (Bld) [#/Vol] 6.5 E9/L Normal 4.0 - 11.0 E9/L [facility] HemeAutoSS SEROLOGYOrdered By: Michelle Stafford on 10-02-2022 HCG.beta subunit (U) [Moles/Vol] Negative Normal [facility] Man Sero URINALYSISOrdered By: Shaan Kamara on 10-02-2022 Bacteria [...] (Urine sed) Present (10/02/22 2:14 PM) Normal [facility] UA Auto SS Epithelial cells.squamous LM.HPF (Urine sed) [#/Area] 3-4 /HPF Normal 0-2/HPF [facility] UA Auto SS Glucose Test strip (U) [Mass/Vol] Negative (10/02/22 2:14 PM) Normal Negative [facility] UA Auto SS Hemoglobin Ql (U) Trace *ABN* (10/02/22 2:14 PM) Invalid Interpretation Code Negative [facility] UA Auto SS Ketones (U) [Mass/Vol] Negative (10/02/22 2:14 PM) Normal Negative [facility] UA Auto SS Old Stine.plasma/Lith ium.RBC (Bld) [Mass ratio] 0-3 /HPF Normal 0-3/HPF [facility] UA Auto SS Nitrite Ql (U) Negative (10/02/22 2:14 PM) Normal Negative [facility] UA Auto SS pH (U) 8.0 *NA* (10/02/22 2:14 PM) Invalid Interpretation Code 5.0 - 9.0 [facility] UA Auto SS Protein (U) [Mass/Vol] Negative (10/02/22 2:14 PM) Normal Negative [facility] UA Auto SS Specific gravity (U) [Rel density] 1.020 *NA* (10/02/22 2:14 PM) Invalid Interpretation Code 1.005 - 1.030 [facility] UA Auto SS UA Spec Desc Clean Catch (10/02/22 2:14 PM) Normal [facility] UA Auto SS Urobilinogen Qn (U) 0.1631859 {Lorie'U}/dL Normal 0.0 - 1.0 EU/dL [facility] UA Auto SS WBC Auto Ql (U) Negative (10/02/22 2:14 PM) Normal Negative [facility] UA Auto SS WBC LM.HPF (Urine sed) [#/Area] 0-5 /HPF Normal 0-5/HPF [facility] UA Auto SS CNOVon 08-25-2022 CNOV Office Visit (GENSF) ELODIAMALORIEFERNANDA ([id number]) 1995 F Date Time Provider Department 08/25/22 [...] with her boyfriend Jose Luis to the [facility] for an opinion regarding right [...] genetic testing, is currently age 51. Fernanda debo BREAST HISTORY Her past breast history (prior [...] Nipple Dischar (more content not included)... Normal [facility] Testing Ordered By: Generated DomainUser on 08-20-2021 SARS-CoV-2 (COVID-19) RNA MIAH+probe Ql (Resp) Not detected Invalid Interpretation Code Not Detected [facility]OutsSS Comment on above: Result Comment: This nucleic acid amplification test was developed and its performance characteristics determined by [facility]. Nucleic acid amplification tests include RT-PCR and [...] detected) result in this assay. Performed at: [facility] [place], [place] [id number] PhD Jean-Pierre Giraldo ABORH VERIFICATIONon 021 ABO and Rh group Nom (Bld) ABO/Rh Verification [facility] Comment on above: Patient's ABO/Rh is verified. ABO and Rh group Nom (Bld) O Positive [facility] Otheron 09-26-2020 Interpretation and review of laboratory results Normal [facility] POC Glucoseon 09-26-2020 Glucose [Mass/Vol] 79 mg/dL 65 - 99 mg/dL [facility] POC , Urineon 09-26 Beta HCG ( test) Ql (U) Dilute urine specimens, as indicated by a low specific gravity (<1.010) may not contain credit representative levels of hCG. If is still suspected, a serum test or repeat urine test using a first morning urine specimen should be considered. [facility] HCG ( test) Ql (U) Negative Negative [facility] SCAN OTHER ORDERSon 09-26-19 21 Ordered by an unspec ified provider. [facility] Type and Screenon 09-26-2020 ABO and Rh group Nom (Bld) O Positive [facility] Blood group antibody screen Ql Negative [facility] Specimen Expires 09/29/2020 23:59 EST [facility] CBC AUTOon 06-16-2018 Erythrocyte distribution width Auto Ratio (RBC) 12.2 % Normal 11.5-14.5 [facility] Comment on above: Order Comment: Yury s: MAIN Performed By: #### L CBC ####[facility] [id number] [place] [address] Hematocrit Auto Volume Fraction (Bld) 43.1 % Normal 36.0-48.0 [facility] Comment on above: Order Comment: Yury s: MAIN Performed By: #### L CBC ####[facility] [id number] [place] [address] Hemoglobin mass conc (Bld) 14.2 g/dL Normal 12.0-15.0 [facility] Comment on above: Order Comment: Yury s: MAIN Performed By: #### L CBC ####[facility] [id number] [place] [address] MCH Auto Entitic mass (RBC) 29.0 pg Normal 25.4-34.6 [facility] [facility] Comment on above: Order Comment: Campu s: MAIN Performed By: #### L CBC ####[facility] [id number] [place] [address] MCHC Auto mass conc (RBC) 32.9 g/dL Normal 30.0-36.0 [facility] Comment on above: Order Comment: Campu s: MAIN Performed By: #### L CBC ####[facility] [id number] [place] [address] MCV Auto Entitic volume (RBC) 88.1 fL Normal 79.0-98.0 [facility] Comment on above: Order Comment: Campu s: MAIN Performed By: #### L CBC ####[facility]ly [facility] [place] [address] Platelet mean volume Auto Entitic volume (Bld) 10.0 fL Normal 8.4-11.9 [facility] Comment on above: Order Comment: Campu s: MAIN Performed By: #### L CBC ####[facility]ly [facility] [place] [address] Platelets Auto #/vol (Bld) 183 10*3/uL Normal 140-440 [facility] Comment on above: Order Comment: Campu s: MAIN Performed By: #### L CBC ####[facility] [place] [address] RBC Auto #/vol (Bld) 4.89 10*6/uL Normal 3.5-5.5 [facility] Comment on above: Order Comment: Campu s: MAIN Performed By: #### L CBC ####[facility] [id number] [place] [address] WBC Auto #/vol (Bld) 5.9 10*3/uL Normal 3.9-11.0 [facility] Comment on above: Order Comment: Campu s: MAIN Performed By: #### L CBC ####[address] [address] HCG BETA QUANTITATIVEon 06-02 HCGQ < 2 Normal <5 [facility] Comment on above: Order Comment: Campu s: MAIN Result Comment: Refe rence Range <4 mIU/mL NEGATIVE 4-25 mIU/mL BORDERLINE >25 mIU/mL POSITIVEComment:Results of this test should always be interpreted inconjunction with the patient's medical history, clinicalpresentation and other findings.Low levels of HCG may be seen in very early (gestation Performed By: #### L HCGQ ####[facility] [id number] [place] [address] History and Physical Virgilio 1 08-16-2017 History and Physical PAT [facility] Pt Name: FERNANDA [id number] [facility] MR # [id number] [address] : 93* * * * * * * * History and Physical PAT * * * * * * * *History of Present IllnessDate of Jwxjixc18/15/18ource of InformationPatientChief Complaint/Present IllnesEndometriosisHPIPatient has endometriosis and [...] 06/16/18 @ 0743 by JULIA MCBRIDE of SystemsReview of SystemsConstitutionalNEGATIVE: Fever, Chills, Sweaty, Weakness, Weight Loss, [...] Confusion, Anxiety, Depression.Postop Anesthesia ProblemsNonePhysical ExamVital SignsTemp (C)36.9Veirx61Vsadctsfysyc21Qn ood Agpktpdb223/79Pulse-Ox%98Heigh t - Tzph9Cpcrth9.00Weight - Ta992Mt-Xg77.580AppearanceGene ral AppearanceWell Developed/Nourished, Alert, Oriented X 3, [...] todayReport Date 06/16/18Electronically Signed Esig Date Esig Ivon Ward [employer] DEVELOPER-LCAC OPERATOR 06/16/18 0809 Normal [facility] OPERATIVE REPORTon 8 OPERATIVE REPORT Name: FERNANDA CHAMR : [id number]: Amanda Parks M.D.DATE OF SURGERY: 06/16/2018ANESTHESIA: General endotracheal.1ST CRUSHER AND BLENDER OPERATOR:PREOP DIAGNOSIS: Pelvic pain.POSTOP DIAGNOSIS: Pelvic pain.OPERATION: Diagnostic [...] removed. Thepatient tolerated the procedure. Amanda PARKS M.D./[facility]/[id number]: 06/16/2018 12:32:38 E/S: Amanda Parks MD [facility] FERNANDA [id number] [place] [id number]: Amanda Parks MDOPERATIVE HZZXXY10/19/18 1408Electronically Signed [facility] SPRING[facility]ERNANDA [id number] [place] [address] [id number]: Amanda Parks MDOPERATIVE REPORT [facility] Post Anesthesia Evaluationon 06-16-[address] [facility] ELODIALKANNN84968 [facility] [id number] [address] : 93POST ANESTHESIA EVALUATION NOTEService Date: 06/16/18 1443Post Anesthesia Eval NoteProcedure Date06/16/18Post Anesthesia EvalYES: VS in Normal Range, Respiratory Stable, Airway Patent, Cardiovascular Stable,Hydration Status Stable, Mental Status Recovered, Pt Participate in Eval, Pain Controlled,NANDV Controlled.[facility] AnesthesiaNoAnesthestic ComplicationsNoReport Date 06/16/18Electronically Signed Esig Date Esig Marysol Martins MD 06/16/[address] [facility] TYPE AND SCREENon 06-16-2018 ABO and Rh group Nom (Bld) O POSITIVE [facility] Comment on above: Order Comment: Fernandezu s: MAINIs patient taking DUSTY?Has patient had a transplant? Performed By: #### B TS ####[facility] [id number] [place] [address] Vital Signs Date Time Vital Sign Value Performing Clinician Dago oleary 10-06-2023 11:08-0500 Body temperature 98.24 [degF] Son Reyes [facility] 10-06-2023 11:08-0500 Diastolic blood pressure 68 mm[Hg] Son Reyes [facility] 10-06-2023 11:08-0500 Heart rate 81 /min Son Reyes [facility] 10-06-2023 11:08-0500 Respiratory rate 18 /min Son Reyes [facility] 10-06-2023 11:08-0500 SaO2% (BldA) [Mass fraction] 100 % Son Reyes [facility] 10-06-2023 11:08-0500 Systolic blood pressure 105 mm[Hg] Son Reyes [facility] 10-09-2022 10:48-0500 Body height 160 cm Marlys Seyfert CN P Work Phone: [facility] 10-09-2022 10:48-0500 Body mass index (BMI) [Ratio] 24.98 kg/m2 Marlys Seyfert LCAC OPERATOR Work Phone: [facility] 10-09-2022 10:48-0500 Body weight 63.96 kg Marlys Seyfert CN P Work Phone: [facility] 10-09-2022 10:48-0500 Diastolic blood pressure 72 mm[Hg] Marlys Seyfert LCAC OPERATOR Work Phone: [facility] 10-09-2022 10:48-0500 Systolic blood pressure 116 mm[Hg] Marlys Seyfert LCAC OPERATOR Work Phone: [facility] 10-02-2022 18:13-0500 Diastolic blood pressure 86 mm[Hg] Phoenix Castro [facility] 10-02-2022 18:13-0500 Heart rate 65 /min Phoenix Castro [facility] 10-02-2022 18:13-0500 Mean blood pressure 99 mm[Hg] Phoenix Castro [facility] 10-02-2022 18:13-0500 Respiratory rate 20 /min Phoenix Bergere [facility] 10-02-2022 18:13-0500 SaO2% (BldA) [Mass fraction] 99 % Phoeinx Gloria [facility] 10-02-2022 18:13-0500 Systolic blood pressure 126 mm[Hg] Phoenix Gloria [facility] 10-02-2022 17:00-0500 Diastolic blood pressure 129 mm[Hg] Phoenix Gloria [facility] 10-02-2022 17:00-0500 Heart rate 75 /min Phoenix Gloria [facility] 10-02-2022 17:00-0500 Mean blood pressure 137 mm[Hg] Phoenix Gloria [facility] 10-02-2022 17:00-0500 Respiratory rate 18 /min Phoenix Gloria [facility] 10-02-2022 17:00-0500 SaO2% (BldA) [Mass fraction] 96 % Phoenix Gloria [facility] 10-02-2022 17:00-0500 Systolic blood pressure 152 mm[Hg] Phoenix Gloria [facility] 10-02-2022 16:00-0500 Diastolic blood pressure 78 mm[Hg] Phoenix Gloria [facility] 10-02-2022 16:00-0500 Heart rate 88 /min Phoenix Gloria [facility] 10-02-2022 16:00-0500 Mean blood pressure 90 mm[Hg] Phoenix Gloria [facility] 10-02-2022 16:00-0500 Respiratory rate 16 /min Phoenix Gloria [facility] 10-02-2022 16:00-0500 Systolic blood pressure 115 mm[Hg] Phoenix Castro [facility] 10-02-2022 15:00-0500 Heart rate 82 /min Phoenix Castro [facility] 10-02-2022 14:00-0500 Body temperature 98.24 [degF] Phoenix Castro [facility] 10-02-2022 14:00-0500 Heart rate 89 /min Phoenix Castro [facility] 08-25-2022 13:56-0500 Body height 160 cm Fernanda Butler DO Work Phone: [facility] 08-25-2022 13:56-0500 Body weight 64.86 kg Fernanda Lowlexiialejandro DO Work Phone: [facility] 08-14-2022 08:03-0500 Blood Pressure Location Phoenix Gonzalez [facility] [place] 08-14-2022 08:03-0500 Diastolic blood pressure 60 mm[Hg] Phoenix Gonzalez [facility] [place] 08-14-2022 08:03-0500 Heart rate 66 /min Phoenix Gonzalez [facility] [place] 08-14-2022 08:03-0500 SaO2% (BldA) [Mass fraction] 99 % Phoenix Gonzalez [facility] [place] 08-14-2022 08:03-0500 Systolic blood pressure 115 mm[Hg] Phoenix Gonzalez [facility] [place] 08-05-2022 16:13-0500 Blood Pressure Location Maryann Rashid [facility] Primary Care 08-05-2022 16:13-0500 Body temperature 97.88 [degF] Maryann Rashid [facility] 08-05-2022 16:13-0500 Diastolic blood pressure 60 mm[Hg] Maryann Vizcarraell [facility] 08-05-2022 16:13-0500 Heart rate 59 /min Maryann Vizcarraell [facility] 08-05-2022 16:13-0500 SaO2% (BldA) [Mass fraction] 96 % Maryann Rashid [facility] 08-05-2022 16:13-0500 Systolic blood pressure 116 mm[Hg] Maryann Rashid [facility] 07-02-2022 12:54-0500 Body height 160 cm Jun Suh PA- C Work Phone: [facility] 07-02-2022 12:54-0500 Body mass index (BMI) [Ratio] 24.98 kg/m2 Jun Suh PA-C Work Phone: [facility] 07-02-2022 12:54-0500 Body weight 63.96 kg Jun Suh PA- C Work Phone: [facility] 07-02-2022 12:54-0500 Diastolic blood pressure 74 mm[Hg] Jun Leer PA-C Work Phone: [facility] 07-02-2022 12:54-0500 Heart rate 91 /min Jun Suh PA- C Work Phone: [facility] 07-02-2022 12:54-0500 Systolic blood pressure 114 mm[Hg] Jun Leer PA-C Work Phone: [facility] 06-18-2022 12:04-0500 Body height 160 cm Shaan Coronado CNP Work Phone: [facility] 06-18-2022 12:04-0500 Body mass index (BMI) [Ratio] 27.1 kg/m2 Shaan Coronado LCAC OPERATOR Work Phone: [facility] 06-18-2022 12:04-0500 Body weight 69.4 kg Shaan Coronado LCAC OPERATOR Work Phone: [facility] 06-18-2022 12:04-0500 Diastolic blood pressure 82 mm[Hg] Shaan Coronado LCAC OPERATOR Work Phone: [facility] 06-18-2022 12:04-0500 Systolic blood pressure 117 mm[Hg] Shaan Coronado LCAC OPERATOR Work Phone: [facility] 04-02-2022 10:37-0400 Body height 160 cm Jun Leer PA- C Work Phone: [facility] 04-02-2022 10:37-0400 Body mass index (BMI) [Ratio] 27.21 kg/m2 Jun Merbelbacher PA-C Work Phone: [facility] 04-02-2022 10:37-0400 Body weight 69.67 kg Jun Merbelbacher PA- C Work Phone: [facility] 04-02-2022 10:37-0400 Diastolic blood pressure 73 mm[Hg] Jun Merbelbacher PA-C Work Phone: [facility] 04-02-2022 10:37-0400 Heart rate 98 /min Jun Merbelbacher PA- C Work Phone: [facility] 04-02-2022 10:37-0400 Systolic blood pressure 113 mm[Hg] Jun Merzbacher PA-C Work Phone: [facility] 10-09-2020 11:09-0500 BMI (Body Mass Index) 26.43 kg/m2 Darlin Balderas [facility] 10-09-2020 11:09-0500 Body Temperature 98.01 [degF] Shijodyi Onielm [facility] 10-09-2020 11:09-0500 Body weight 69.85 kg Shijodyi Onielm [facility] 10-09-2020 11:09-0500 BP Diastolic 70 mm[Hg] Shivkamini Somaniandaram [facility] 10-09-2020 11:09-0500 BP Systolic 108 mm[Hg] Shivkamini Somaniandaram [facility] 10-09-2020 11:09-0500 Height 162.6 cm Shivkamini Somaniandjoselom [facility] 09-26-2020 19:08-0500 Body Temperature 98.91 [degF] Shivkamini Onielm [facility] 09-26-2020 19:08-0500 BP Diastolic 58 mm[Hg] Shivkamini Somaasharam [facility] 09-26-2020 19:08-0500 BP Systolic 96 mm[Hg] Shivkamini Somaniandaram [facility] 09-26-2020 19:08-0500 Pulse (Heart Rate) 103 /min Mauricioi Lalitaram [facility] 09-26-2020 19:08-0500 Pulse Oximetry 97 % Mauricioi Onielm [facility] 09-26-2020 19:08-0500 Respiratory Rate 15 /min Mauricioi Onielm [facility] 09-26-2020 09:23-0500 BMI (Body Mass Index) 26.53 kg/m2 Shimeaghankamini Somaniandaram [facility] 09-26-2020 09:23-0500 Body weight 70.1 kg Shijodyi Onielm [facility] 09-26-2020 09:23-0500 Height 162.6 cm Shijodyi Onielm [facility] 08-14-2020 14:52-0500 BMI (Body Mass Index) 27.07 kg/m2 Shimeaghankamini Somaniandaram [facility] 08-14-2020 14:52-0500 Body Temperature 97.7 [degF] Eliazarkamini Onielm [facility] 08-14-2020 14:52-0500 Body weight 69.31 kg Shivkamini Somasundaram [facility] 08-14-2020 14:52-0500 BP Diastolic 60 mm[Hg] Darlin Balderas [facility] 08-14-2020 14:52-0500 BP Systolic 110 mm[Hg] Darlin Balderas [facility] 08-14-2020 14:52-0500 Height 160 cm Darlin Balderas [facility] Encounters Encounter Date Encounter Type Care Provider Facility Start: 10-06-2023 End: 10-06-2023 Emergency department patient visit Son Reyes Facility:[facility] Start: 10-06-2023 End: 10-06-2023 Emergency department patient visit Son Reyes [facility] Start: 09-25-2023 End: 09-26-2023 ambulatory Ahsan R ELBERT Facility:[facility] Start: 09-25-2023 End: 09-25-2023 Patient encounter procedure Ahsan R ELBERT [facility] Start: 09-23-2023 End: 09-24-2023 ambulatory Ahsan R ELBERT Facility:[facility] Start: 09-23-2023 End: 09-23-2023 Patient encounter procedure Ahsan R ELBERT [facility] Start: 07-22-2023 End: 07-22-2023 ambulatory AHSAN ELBERT Not Available Start: 07-15-2023 End: 07-15-2023 Emergency department patient visit Son Reyes Facility:[facility] Start: 05-31-2023 Refill Ann Marie Miller RN [facility] Gynecology Comment on above: Interstitial cystiti s Start: 02-19-2023 End: 02-19-2023 Emergency department patient visit Son Reyes Facility:[facility] Start: 10-28-2022 End: 10-28-2022 ambulatory FERNANDA BUTLER Facility:[facility] Start: 10-28-2022 End: 03-29-2023 Office outpatient visit 15 minutes Fernanda Butler DO Work Phone: General Surgery Comment on above: Breast pain, right ( Primary Dx); Nipple discharge; Family history of breast cancer Start: 10-12-2022 Telephone encounter Bella Barrera RN General Surgery Comment on above: Appointment Start: 10-09-2022 End: 10-09-2022 ambulatory ASAD OWENS [facility] Start: 10-09-2022 End: 10-09-2022 Patient encounter procedure Marlys West CNP Work Phone: [facility] Comment on above: Interstitial cystiti s (Primary Dx) Start: 10-07-2022 End: 10-07-2022 Subsequent hospital visit by physician Diagnostic Mammo Main Mammography Comment on above: Mass of upper outer quadrant of right breast [N63.11] Start: 10-07-2022 End: 10-07-2022 ambulatory FERNANDA BUTLER Facility:[facility] Start: 10-07-2022 End: 10-07-2022 Subsequent hospital visit by physician Mri Main A10 (Large Bore/1.5t) Work Phone: MRI A10 Comment on above: Mass of upper outer quadrant of right breast [N63.11] Start: 10-02-2022 End: 10-02-2022 Emergency department patient visit Phoenix Castro [facility] Start: 08-25-2022 End: 08-25-2022 ambulatory FERNANDA BUTLER Facility:[facility] Start: 08-25-2022 End: 08-25-2022 Office outpatient new 45 minutes Fernanda Butler DO Work Phone: General Surgery Comment on above: Mass of upper outer quadrant of right breast (Primary Dx); Nipple discharge; Family history of breast cancer; At high risk for breast cancer; Mastalgia Start: 08-14-2022 End: 08-14-2022 Patient encounter procedure Phoenix Gonzalez [facility] General Surgery [place] Start: 08-10-2022 End: 08-10-2022 Patient encounter procedure Maryann R Rashid [facility] Start: 08-05-2022 End: 08-05-2022 Patient encounter procedure Maryann Sanchez Rashid [facility] Primary Care Start: 07-02-2022 End: 07-02-2022 ambulatory JUN SUH [facility] Start: 07-02-2022 End: 07-02-2022 Office outpatient visit 10 minutes Jun Suh PA-C Work Phone: [facility] Physician [facility] Gynecology Comment on above: Myofascial muscle pa in (Primary Dx); Pelvic pain in female; Interstitial cystitis; Encounter for other general counseling or advice on contraception Start: 06-18-2022 End: 06-22-2022 ambulatory ASAD Sandra OWENS [facility] Start: 06-18-2022 End: 06-18-2022 ambulatory SHAAN CORONADO [facility] Start: 06-18-2022 End: 06-18-2022 Patient encounter procedure Shaan Coronado LCAC OPERATOR Work Phone: [facility] Physician [facility] Gynecology Comment on above: Interstitial cystiti s (Primary Dx); Dark yellow-colored urine Start: 04-03-2022 Orders Only Marlys contreras LCAC OPERATOR Work Phone: [facility] Physician [facility] Gynecology Comment on above: BV (bacterial vagino sis) (Primary Dx) Start: 04-02-2022 End: 04-02-2022 ambulatory JUN SUH [facility] Ambulatory Start: 04-02-2022 End: 04-02-2022 Encounter for gynecological examination (general) (routine) without abnormal findings JUN SUH [facility] Start: 04-02-2022 End: 04-02-2022 Patient encounter procedure Jun Suh PA-C Work Phone: [facility] Start: 04-02-2022 End: 04-02-2022 Periodic preventive med est patient 18-39 yrs Jun Suh PA-C Work Phone: [facility] Physician [facility] Gynecology Comment on above: Well woman exam (Barbara yves Dx); Screening for malignant neoplasm of cervix; Vaginal discharge; Myofascial muscle pain; Pelvic pain in female Start: 08-20-2021 End: 11-18-2021 Patient encounter procedure Angela HARVEY [facility] Start: 10-09-2020 End: 10-09-2020 Refill Selene Perdomo [facility] Comment on above: Pelvic pain in femal e (Primary Dx) Start: 10-09-2020 End: 10-09-2020 Postop follow up visit related to original px Darlin Englem Work Phone: [facility] Physician [facility] Gynecology Comment on above: Post-operative state (Primary Dx); Chronic pelvic pain in female; Interstitial cystitis Start: 09-26-2020 End: 09-26-2020 Patient encounter procedure ASAD OWENS [facility] Start: 09-26-2020 End: 09-26-2020 Subsequent hospital visit by physician Darlin Balderas Work Phone: [facility] [address] Comment on above: Ovarian cyst rupture ; Chronic pelvic pain in female; Dysuria; Irritable bowel syndrome, unspecified type Start: 09-25-2020 End: 09-25-2020 Clinical Support Selene Perdomo [facility] Start: 09-20-2020 End: 09-20-2020 Orders Only Jerivcurtis Zazuetasuallison Work Phone: [facility] Physician [facility] Gynecology Comment on above: Ovarian cyst rupture (Primary Dx); Chronic pelvic pain in female; Dysuria; Irritable bowel syndrome, unspecified type Start: 08-20-2020 End: 08-20-2020 Refill Darlin Zazuetasundaraaileen Work Phone: [facility] Start: 08-16-2020 End: 08-16-2020 Refkeny Perdomo [facility] Phys[facility] Gynecology Start: 08-14-2020 End: 08-14-2020 Office outpatient new 30 minutes Shimitchmini Somasundaram Work Phone: [facility] Physician [facility] Gynecology Comment on above: Pelvic pain in femal e; Endometriosis; Ovarian cyst rupture; Pelvic congestion Start: 06-16-2018 Patient encounter procedure [facility] Facility:[facility] Procedures Date Procedure Procedure Detail Performing Clinician [...] Esophagogastroduodenoscopy Angela QUINTEROS Start: 08-02-2018 Laparoscopy Angela BANERJEEKYMBERLYMELLY Comment on above: Dx with pelvic congestion syndrome Start: 06-16-2018 Antibody screen Amanda Parks Comment on above: Order Comment: Spavinaw: [facility] patient fern MONTANO?Has patient had a transplant? Performed By: #### B TS ####[facility] [id number] [place] [address] Start: 02-25-2015 Colonoscopy Angela BANERJEEANABEL Start: 08-02-2010 wisdom teeth removed x4 Angela CANDICE Plan of Treatment Date Care Activity Detail Author Start: 06-11-2026 Tetanus vaccination Tetanus: Every 1 0yrs [facility] Start: 04-02-2025 Screening for malign ant neoplasm of cervix Pap Smear [facility] Start: 09-29-2023 End: 09-29-2023 Patient encounter procedure 09/29/2023 1:10 PM EST Office Visit [facility] Physician [facility] Gynecology [address] [place] [id number] Jun Suh PA-C [address] [place] [address] [facility] Physician [facility] Gynecology Start: 04-02-2023 History and physical examination, annual for health maintenance Wellness Visit [facility] Start: 04-02-2023 Influenza vaccination C [facility] Start: 10-22-2022 End: 10-22-2022 Patient encounter procedure 10/22/2022 Procedure visit Gynecology Marlys West CNP [address] [place] [address] [facility] Physician [facility] Gynecology Start: 09-30-2022 End: 09-30-2022 Telemedicine consultation with patient 09/30/2022 Telemedicine Gynecology Jun Suh PA-C [address] [place] [address] [facility] Start: 08-02-2022 DEPRESSION ASSESSMENT DEPRESSION ASS [facility] Start: 07-02-2022 End: 07-02-2022 Patient encounter procedure 07/02/2022 Office Visit Gynecology Jun Suh PA-C [address] [place] [address] [facility] Start: 04-10-2022 End: 04-10-2022 Patient encounter procedure 04/10/2022 Procedure visit Gynecology Shaan Coronado CNP [address] [place] [address] [facility] Start: 04-02-2022 Influenza vaccination [facility] Start: 01-08-2021 End: 01-08-2021 Office Visit 01/08/2021 Office Visit Gynecology Viktor Mendosa CNM [address] [place] [address] [phone] [facility] Start: 10-09-2020 End: 10-09-2020 Office Visit 10/09/2020 Office Visit Gynecology Darlin Balderas MD [address] [place] [address] [phone] [facility] Start: 09-26-2020 End: 09-26-2020 Hospital Encounter [facility] Per[facility] Comment on above: XI ROBOTIC ASSISTED LAPAROSCOPIC EXCISION OF ENDOMETRIOSIS, CHROMOPERTUBATION, CYSTOSCOPY POSSIBLE HYDRODISTENTION, POSSIBLE IUD INSERTION ERAS PROTOCOL Start: 09-26-2020 End: 09-26-2020 Hospital Encounter [facility] Comment on above: XI ROBOTIC ASSISTED LAPAROSCOPIC EXCISION OF ENDOMETRIOSIS, CHROMOPERTUBATION, CYSTOSCOPY POSSIBLE HYDRODISTENTION, POSSIBLE IUD INSERTION ERAS PROTOCOL Start: 09-25-2020 End: 09-25-2020 Clinical Support [facility]ne[facility] Start: 09-22-2020 End: 09-22-2020 Office Visit 09/22/2020 Office Visit Lab Darlin Balderas MD [address] [facility] [place] [address] [phone] [facility] Start: 04-02-2020 Influenza vaccinatio n given Sequential Influenza Vaccine (#1) [facility] Start: 2014 PAP TESTING PAP TESTING [facility] Start: 2012 Urine microalbumin profile DTAP,TDAP,TD (1 - Tdap) [facility] Start: 10-28-2011 Hepatitis C antibody , confirmatory test Hepatitis C Screening [facility] Start: 10-28-2011 Hepatitis C screening Hepatitis C [facility] Start: 10-28-2011 HEPATITIS C SCREENING HEPATITIS C [facility] Start: 10-28-2011 HIV SCREENING HIV SCREENING [facility] Start: 2009 COVID-19 Vaccine (1 of 2) COVID-19 Vaccine (1 of 2) [facility] Start: 2008 HIV screening HIV Screening [facility] Start: 2005 Adolescent depressio n screening assessment Depression Screening (PHQ9) [facility] Start: 2005 Depression screening using PHQ-9 (Patient Health Questionnaire 9) score Depression Screening (PHQ-2/9) [facility] Start: 1996 History and physical examination, annual for health maintenance Wellness Visit [facility] Start: 04-29-1994 COVID-19 Vaccine (#1) COVID-19 Vacci ne (#1) [facility] Start: 1993 HEPATITIS B (1 of 3 - 3-dose series) HEPATITIS B (1 of 3 - 3-dose series) [facility] Start: 1993 Screening for malign ant neoplasm of cervix Pap Smear [facility] Chlamydia trachomati s rRNA assay Chlamydia/GC/Trichomona s Amplified RNA Microbiology Routine Vaginal discharge 04/02/2022 12:31 PM EDT [facility] End: 06-18-2023 Complete blood count with white cell differential, manual CBC and differential Lab Routine Dark yellow-colored urine 1 Occurrences starting 06/18/2022 until 06/18/2023 [facility] Work Phone: Comment on above: 1 Occurrences starti ng 06/18/2022 until 06/18/2023 Complete blood count with white cell differential, manual CBC and differential Lab Routine Dark yellow-colored urine 06/18/2022 1:02 PM EST [facility] End: 06-18-2023 Creatinine [Mass/volume] in Serum or Plasma Creatinine, Serum Lab Routine Dark yellow-colored urine 1 Occurrences starting 06/18/2022 until 06/18/2023 [facility] Comment on above: 1 Occurrences starti ng 06/18/2022 until 06/18/2023 Creatinine [Mass/vol ume] in Serum or Plasma Creatinine, Serum Lab Routine Dark yellow-colored urine 06/18/2022 1:02 PM EST [facility] End: 09-24-2023 Diagnostic mammography computer-aided detcj bi [facility] DIAGNOSTIC BILAT Radiology Routine Mass of upper outer quadrant of right breast Nipple discharge Family history of breast cancer At high risk for breast cancer Mastalgia 1 Occurrences starting 08/25/2022 until 09/24/2023 [facility] Work Phone: Comment on above: 1 Occurrences starti ng 08/25/2022 until 09/24/2023 End: 04-02-2023 Gardnerella vaginalis rRNA assay Vaginitis DNA Probes Microbiology Routine Vaginal discharge 1 Occurrences starting 04/02/2022 until 04/02/2023 [facility] Comment on above: 1 Occurrences starti ng 04/02/2022 until 04/02/2023 Gardnerella vaginali s rRNA assay Vaginitis DNA Probes Microbiology Routine Vaginal discharge 04/02/2022 12:31 PM EDT [facility] End: 06-18-2023 IRRIGATION OF BLADDER Irrigation of bladder Procedures Routine Interstitial cystitis 1 Occurrences starting 06/18/2022 until 06/18/2023 [facility] Comment on above: 1 Occurrences starti ng 06/18/2022 until 06/18/2023 Microscopic examinat ion of vaginal Papanicolaou smear Thinprep Pap Smear Pathology and Cytology Routine Screening for malignant neoplasm of cervix Ordered: 04/02/2022 [facility] Work Phone: Comment on above: Ordered: 04/02/2022 End: 09-24-2023 Mri breast without&with contrast w/cad bilateral MRI BREAST WO/W IVCON BILAT Radiology Routine Mass of upper outer quadrant of right breast Nipple discharge Family history of breast cancer At high risk for breast cancer Mastalgia 1 Occurrences starting 08/25/2022 until 09/24/2023 [facility] Work Phone: Comment on above: 1 Occurrences starti ng 08/25/2022 until 09/24/2023 Neisseria gonorrhoea e nucleic acid detection [facility] Comment on above: Ordered: 04/02/2022 Procedure on tissue specimen [facility] Comment on above: Release Upon Orderin g for 1 Occurrences starting 09/26/2020, 1 completed Trichomonas vaginali s Amplified RNA [facility] Comment on above: Ordered: 04/02/2022 End: 06-18-2023 Urate [Mass/volume] in Serum or Plasma Uric Acid Lab Routine Dark yellow-colored urine 1 Occurrences starting 06/18/2022 until 06/18/2023 [facility] Comment on above: 1 Occurrences starti ng 06/18/2022 until 06/18/2023 Urate [Mass/volume] in Serum or Plasma Uric Acid Lab Routine Dark yellow-colored urine 06/18/2022 1:02 PM EST [facility] End: 09-24-2023 Us breast uni real time with image limited US BREAST LTD RT Radiology Routine Mass of upper outer quadrant of right breast Nipple discharge Family history of breast cancer At high risk for breast cancer Mastalgia 1 Occurrences starting 08/25/2022 until 09/24/2023 [facility] Work Phone: Comment on above: 1 Occurrences starti ng 08/25/2022 until 09/24/2023 [facility] Immunizations Immunization Date Immunization Notes Care Provider Amara lindo 06-11-2016 tetanus toxoid, reduced diphtheria toxoid, and acellular pertussis vaccine, adsorbed Angela HARVEY [facility] Comment on above: Reason for Medicatio n: Other (see comment) NEGATED: Highlighted row has not occurred!08-14-2022 influenza virus vaccine, unspecified formulation [facility] [place] NEGATED: Highlighted row has not occurred!08-14-2022 SARS-CoV-2 mRNA (tozinameran 5y-11y) vaccine Phoenix Gonzalez [facility] NEGATED: Highlighted row has not occurred!11-27-2020 SARS-CoV-2 (COVID-19) mRNA-1273 vaccine Angela HARVEY [facility] NEGATED: Highlighted row has not occurred!09-18-2020 influenza virus vaccine, unspecified formulation Angelabrandy HARVEY [facility] NEGATED: Highlighted row has not occurred!08-04-2019 influenza virus vaccine, live, attenuated, for intranasal use Agnelabrandy HARVEY [facility] Payers Date Payer Category Payer Medicaid [id number] 2016 Medicaid [id number] 2016 Medicaid [facility] MEDICAID [employer] [id number] 2016-Present [id number] 2016 Medicaid [id number] 1993 Unknown [id number] 1993 Unknown [id number] 1993 Unknown [id number] 1993 Unknown [id number] 1993 Unknown [id number] [id number] 1993 Unknown [id number] [id number] 1993 Unknown [id number] [id number] 1993 Unknown [id number] [id number] 1993 Unknown [id number] [id number] 1993 Unknown [id number] [id number] 1993 Unknown [id number] [id number] 1993 Unknown [id number] [id number] Unknown [id number] Social History Date Type Detail Facility Start: 08-14-2020 End: 08-14-2022 Tobacco smoking status NHIS Never smoker [facility] Start: 08-14-2020 End: 04-02-2022 Tobacco use and exposure Never used [facility] Start: 08-14-2020 End: 10-13-2020 Alcohol intake Lifetime non-drinker (finding) [facility] Start: 08-14-2020 End: 09-23-2020 History SDOH Alcohol Frequency 1 [facility] Start: 1995 Sex Assigned At Not on file [facility] Start: 03-20-2022 End: 10-09-2022 Exposure to SARS-CoV-2 (event) Not sure [facility] Tobacco smoking status Never [facility] Start: 09-23-2020 End: 10-09-2022 Sex Assigned At Female [facility] Start: 04-02-2022 End: 10-09-2022 Alcohol intake Current drinker of alcohol (finding) [facility] Start: 04-02-2022 Alcohol Comment Occasional drinks. Not very often. [facility] Start: 08-25-2022 Alcohol Comment socially [facility] Start: 09-23-2020 End: 10-09-2022 History of Social function [facility] How often to you hav e a drink containing alcohol? Never [facility] Start: 09-25-2020 Gender identity Identifies as female gender (finding) [facility] Start: 09-25-2020 Sexual orientation Heterosexual (finding) [facility] Medical Equipment Procedure Code Equipment Code Equipment Origin al Text Equipment Identifier Dates Cath 2.5in Expan rajwinedr On-Q Silversoaker - [id number] Start: 09-26-2020 Kit 4ml Vh S/D T isseel - [id number] Start: 09-26-2020 Pump 600ml Dual On-Q Olajre-N-Wpxp - [id number] Start: 09-26-2020 Barrier 3 X 4in Adhesion Tc 7 Interceed - [id number] Start: 09-26-2020 Functional Status Date Assessment Result Facility 10-06-2023 Functional Status N[facility] 10-02-2022 Functional Status N/A [facility] 08-14-2022 Functional Status N/A [facility] [place] 08-05-2022 Functional Status N/A [facility] Primary Care Clinical Notes 12-31-2021 to 10-06-2023 Telephone Encounter - Ann Marie Miller RN - 05/31/2023 5:32 PM EDTTelephone Encounter - Ann Marie Miller RN - 05/31/2023 5:32 PM Grupo Butler DO - 10/28/2022 3:19 PM EDTPatient InstructionsRadiology Note Date & Type Note Facility 10-06-2023 Hospital Discharge instructions Patient Education 10/06/2023 12:00:43 Musculoskeletal Pain Musculoskeletal Pain Musculoskeletal pain refers to aches and pains in your bones, joints, muscles, and the tissues that surround them. This pain can occur in any part of the body. It can last for a short time (acute) or a long time (chronic). A physical exam, lab tests, and imaging studies may be done to find the cause of your musculoskeletal pain. Follow these instructions at home: Lifestyle Try to control or lower your stress levels. Stress increases muscle tension and can worsen musculoskeletal pain. It is important to recognize when you are anxious or stressed and learn ways to manage it. This may include: ?Meditation or yoga. ?Cognitive or behavioral therapy. ?Acupuncture or massage therapy. You may continue all activities unless the activities cause more pain. When the pain gets better, slowly resume your normal activities. Gradually increase the intensity and duration of your activities or exercise. Managing pain, stiffness, and swelling Treatment may include medicines for pain and inflammation that are taken by mouth or applied to the skin. Take tbmh-zui-lkihgiu and prescription medicines only as told by your health care provider. When your pain is severe, bed rest may be helpful. Lie or sit in any position that is comfortable, but get out of bed and walk around at least every couple of hours. If directed, apply heat to the affected area as often as told by your health [...] have a greater risk of getting burned. If directed, put ice on the painful area. To do this: ?Put ice in a plastic bag. ?Place a towel between your skin and the bag. ?Leave the ice on for 20 minutes, 2 3 times a day. ?Remove the ice if your skin turns bright red. This is very important. If you cannot feel pain, heat, or cold, you have a greater risk of damage to the area. General instructions Your health care provider may recommend that you see a physical therapist. This person can help you come up with a safe exercise program. If told by your health care provider, do physical therapy exercises to improve movement and strength in the affected area. Keep all follow-up visits. This is important. This includes any physical therapy visits. Contact a health care provider if: Your pain gets worse. Medicines do not help ease your pain. You cannot use the part of your body that hurts, such as your arm, leg, or neck. You have trouble sleeping. You have trouble doing your normal activities. Get help right away if: You have a new injury and your pain is worse or different. You feel numb or you have tingling in the painful area. Summary Musculoskeletal pain refers to aches and pains in your bones, joints, muscles, and the tissues that surround them. This pain can occur in any part of the body. Your health care provider may recommend that you see a physical therapist. This person can help you come up with a safe exercise program. Do any exercises as told by your physical therapist. Lower your stress level. Stress can worsen musculoskeletal pain. Ways to lower stress may include meditation, yoga, cognitive or behavioral therapy, acupuncture, and massage therapy. This information is not intended to replace advice given to you by your health care provider. Make sure you discuss any questions you have with your health care provider. Document Revised: 11/21/2020 Document Reviewed: 10/30/2020 [employer] Patient Education 2022 Email Data Source. Follow Up Care 10/06/2023 11:02:01 With:KAYLIN GIL FAAFP, PATRICIA Kapoor, PED [facility] [place] [address]- When:10/09/2023 [facility] 05-31-2023 Telephone encounter Note Pt left message on Refill line requesting refill of Urogesic blue. Pt has annual scheduled on 09/29/23. Request routed to [place] [facility] for approval. [facility] 05-31-2023 Miscellaneous Notes Pt left message on Refill line requesting refill of Urogesic blue. Pt has annual scheduled on 09/29/23. Request routed to Melissa West [facility] OPERATOR for approval. documented in this encounter [facility] 10-28-2022 Note HNO ID: [id number] Author: Fernanda Butler, DO Service: ? Author Type: Physician Type: Progress Notes Filed: 11/04/2022 7:53 PM Note Text: BREAST SURGERY REASON FOR TODAY'S VISIT: Patient presents with: Breast Problem I have communicated my name and active licensure. The patient's identity and physical location were verified at the time of this visit. Either the patient or their legal credit representative has been informed of the risks [...] with her boyfriend Jose Luis to the [facility] for an opinion regarding right [...] discharge, but is (more content not included)... [facility] 03-29-2023 History of Present illness Narrative BREAST SURGERY REASON FOR TODAY'S VISIT: Patient presents with: Breast Problem I have communicated my name and active licensure. The patient's identity and physical location were verified at the time of this visit. Either the patient or their legal credit representative has been informed of the risks [...] with her boyfriend Jose Luis to the [facility] for an opinion regarding right [...] how she would like to proceed. Fernanda Butler DO Breast Surgery All questions were answered [...] with more than 50% of the total dqdn-jm-dzow (virtual) time of the visit in counseling / coordination of care. documented in this encounter [facility] 10-12-2022 Miscellaneous Notes Attempted to reach patient re: appointment. No answer. Message left with callback number. Bella Barrera RN documented in this encounter [facility] 10-09-2022 History of Present illness Narrative [facility] [address] [facility] [address] Bladder Instillation Fernanda Cha is a 26 [...] % Syrg Return for IC tx. Marlys West CNP 10/09/22 11:41 AM documented in this encounter [facility] 10-09-2022 Instructions Marlys West CNP - 10/09/2022 11:35 AM EST What is interstitial cystitis/bladder pain syndrome? Interstitial cystitis (z[facility] s?-st? t?s)/bladder pain syndrome, or as [...] as the cause is better understood. 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 webstie and pamphlet given. https://www.urologyhealth.org/ed ucational-resources/interstitial -cystitis/xnbqlmg-cqzt-qqbdvylg www.ichelp.org documented in this encounter [facility] 10-07-2022 Note HNO ID: [id number] Author: RT Catherine(R) Service: ? Author Type: [...] RT Catherine(R) October 07, 2022 11:41 AM [facility] 10-07-2022 Note HNO ID: [id number] Author: RT Emma(R) Service: Radiology Author Type: Meter Readers Supervisor Type: Progress Notes Filed: 10/07/2022 8:09 AM [...] DATE: October 07, 2022 TIME: 7:59 AM [facility] 10-07-2022 History of Present illness Narrative Radiology [...] TIME: 7:59 AM documented in this encounter [facility] 10-02-2022 Hospital Discharge instructions Patient Education 10/02/2022 [...] medicines. These include steroids, antibiotics, and some lhha-qjz-jfmyvqo medicines, such as aspirin or ibuprofen. Having [...] Follow these instructions at home: Medicines Take liyq-pzo-jydbgqi and prescription medicines only as told by [...] 07/13/2002 Document Revised: 12/06/2018 Document Reviewed: 12/06/2018 [employer] Patient Education 2020 Email Data Source. Follow Up Care 10/02/2022 13:55:10 With:Malcolm LU Address: [address] [place] [address]. [address] [place] [address] Business (1) When:10/05/2022 17:57:54 With:Maryann Rashid Address:Unknown When:10/05/2022 17:57:51 [facility] 08-25-2022 Note HNO ID: [id number] Author: Fernanda Butler, DO Service: ? Author [...] with her boyfriend Jose Luis to the [facility] for an opinion regarding right [...] WO/W IVCON BILAT, US BREAST LTD RT, [facility]NO[facility] (N64.52) Nipple discharge Plan: MRI B (more content not included)... [facility] 08-25-2022 Nurse Note Reason for today's visit:surgical consult for right breast pain and growing lump Mammogram film location: [facility] Medical/Surgical history reviewed and documented in EPIC Palpates a breast change? Yes Nipple discharge? Yes, farah/black now thick, yellow Swelling in either upper extremity? Yes, into the axilla Exercise? Yes Advanced Directives? no Managing stress: Stress level on a scale of 1 - 10:1 Bra Size: 36D Pacemaker: no anticoagulants: no Do you follow with a restoration officer on a regular basis? No Instruction: Monthly self breast exams Exercise routine Healthy diet Patient stated understanding of information received today. documented in this encounter [facility] 08-25-2022 History of Present illness Narrative NEW BREAST CONSULTATION SERVICE DATE: 08/24/2022 Consultation requested by Marie So for an opinion regarding Fernanda Cha. REASON FOR TODAY'S VISIT: Patient presents with: Breast Problem HISTORY AND CHIEF COMPLAINT: Fernanda Cha is a 26 year old female who presents with her boyfriend Jose Luis to the [facility] for an opinion regarding right [...] with more than 50% of the total wsmv-vo-hiay time of the visit in counseling / coordination of care. Medical Decision Making: Problems: Moderate: New problem with uncertain prognosis Data: Unique test result(s) reviewed: 1 Unique test(s) ordered: 2 Independent interpretation of test from other physician/QHCP Discussed management or test w/ external physician/QHCP/source Risk: Low: Low risk from testing/treatment Medical Decision Making Level: 4 - Moderate documented in this encounter [facility] 08-05-2022 Hospital Discharge instructions Patient Education 08/05/2022 [...] height. This can be done either in [place] ([place] or metric measurements. Note that charts are available to help you find your BMI quickly and easily without having to do these calculations yourself. To calculate your BMI in [place] ([place] measurements, your health care provider will: [...] medical problems. BMI can be measured using Dominican measurements or metric measurements. To interpret your [...] 03/30/2005 Document Revised: 07/01/2018 Document Reviewed: 06/01/2018 [employer] Patient Education 2020 Email Data Source. 08/05/2022 19:28:41 Lymphadenopathy Lymphadenopathy Lymphadenopathy means that [...] at home: Get plenty of rest. Take tesa-fkr-dxgriuq and prescription medicines only as told by your health care provider. Your health care provider may recommend gpgt-qxp-bqrhtmm medicines for pain. If directed, apply heat [...] 04/27/2009 Document Revised: 07/01/2018 Document Reviewed: 06/03/2018 [employer] Patient Education 2020 Email Data Source. 08/05/2022 19:28:35 Breast Tenderness Breast Tenderness Breast [...] your breasts are very tender. Medicines Take eysy-fju-zonftcr and prescription medicines only as told by [...] 07/01/2009 Document Revised: 12/11/2019 Document Reviewed: 12/11/2019 [employer] Patient Education 2019 Email Data Source. [facility] 07-02-2022 History of Present illness [...] a significantly less amount of relational stress. [place] is significantly improved with the new relationship [...] WITH HYDRODISTENTION; Surgeon: Darlin Balderas MD; Location: [facility] Main OR; Service: [facility] CLINICIAN-[employer] Allergen Patch Test No documentation. Active Home [...] PA-C [facility] documented in this encounter [facility] 04-02-2022 History of Present illness Narrative [facility] [address] [facility] [address] ANNUAL EXAM Patient Name: Fernanda Cha : [...] COLONOSCOPY ENDOMETRIAL ABLATION 2018 LAPAROSCOPY 09/2018 MYOMECTOMY 2018 PELVISCOPY ROBOTIC XI N/A 09/26/2020 Procedure: ROBOTIC ASSISTED LAPAROSCOPIC EXCISION OF ENDOMETRIOSIS, CHROMOPERTUBATION, LEFT OVARIAN CYSTECTOMY, CYSTOSCOPY WITH HYDRODISTENTION; Surgeon: Darlin Balderas MD; Location: [facility] Main OR; Service: [facility] CLINICIAN-[employer] Social History Socioeconomic History Marital status: Spouse [...] 4. Myofascial muscle pain Ambulatory Ref to [facility] (PT/OT/ST) 5. Pelvic pain in female Ambulatory Ref to [facility] (PT/OT/ST) - Reviewed diet and exercise [...] Suh PA-C 04/02/22 documented in this encounter [facility] 12-31-2021 History of Present illness Narrative [facility] [address] [facility] [phone] BLADDER INSTILLATION PROCEDURE NOTE Patient Name: Fernanda Cha : 1995 MR #: [id number] Indication: pelvic pain Purpose and procedure discussed with patient. All questions answered. Verbal consent obtained. Previous bladder instillation none Current symptoms: Nocturia, discolored dark brown to yellow urine, urgency, frequency, flank pain. Procedure: The patient was placed in lithotomy position. Urethra visualized and cleaned with betedine. A 12 Yakut catheter was introduced into the bladder using [...] Shaan Coronado CNP documented in this encounter [facility] Evaluation + Plan note No data available for this section [facility] Evaluation + Plan note Future Appointments Appointment Date:08/10/2022 03:00:00 PM Scheduled Provider: [facility] Type:US Breast () Future Scheduled TestsUS Breast Unilateral Rt Complete 08/10/22 [facility] Evaluation + Plan note Future Appointments Appointment Date:08/14/2022 08:00:00 AM Scheduled Provider:Phoenix Gonzalez MD Location:[facility] Appointment Type: Established 15 [facility] Evaluation + Plan note [facility] [place] Evaluation note Diagnosis Well woman exam- Primary Routine general medical examination at a health care facility Screening for malignant neoplasm of cervix Screening for malignant neoplasm of the cervix Vaginal discharge Leukorrhea, not specified as infective Myofascial muscle pain Pelvic pain in female Unspecified symptom associated with female genital organs [facility] Diagnosis Well woman exam- Primary Routine general medical examination at a [facility] care facility Screening for malignant neoplasm of cervix Screening for malignant neoplasm of the cervix Vaginal discharge Leukorrhea, not specified as infective Myofascial muscle pain Pelvic pain in female Unspecified symptom associated with female genital organs [facility] Diagnosis BV (bacterial vaginosis)- Primary Unspecified vaginitis and vulvovaginitis [facility] Diagnosis Interstitial cystitis- Primary Chronic interstitial cystitis Dark yellow-colored urine [facility] Diagnosis Myofascial muscle pain- Primary Pelvic pain in female Unspecified symptom associated with female genital organs Interstitial cystitis Chronic interstitial cystitis Encounter for other general counseling or advice on contraception [facility] Diagnosis Mass of upper outer quadrant of right breast- Primary Nipple discharge Other sign and symptom in breast Family history of breast cancer Family history of malignant neoplasm of breast At high risk for breast cancer Mastalgia Mastodynia [facility] Diagnosis Mass of upper outer quadrant of right breast Nipple discharge Other sign and symptom in breast Family history of breast cancer Family history of malignant neoplasm of breast At high risk for breast cancer Mastalgia Mastodynia documented in this encounter [facility] note* Diagnosis Mass of upper outer quadrant of right breast Nipple discharge Other sign and symptom in breast Family history of breast cancer Family history of malignant neoplasm of breast At high risk for breast cancer Mastalgia Mastodynia documented in this encounter [facility] note* Diagnosis Interstitial cystitis- Primary Chronic interstitial cystitis documented in this encounter [facility] note* Diagnosis Breast pain, right- Primary Mastodynia Nipple discharge Other sign and symptom in breast Family history of breast cancer Family history of malignant neoplasm of breast documented in this encounter [facility] note* Diagnosis Interstitial cystitis Chronic interstitial cystitis [facility] No data available for this section [facility] No data available for this section [facility] Primary Care Reqrei for referral (narrative) Referred by: Lisa PAGE, Phoenix Sal [facility] General Surgery [place] Rebdct for referral (narrative)* Diagnostic Procedure Only (Routine) - Authorized Specialty Diagnoses / Procedures Referred By Harry gasca Referred To Contact BR IMAGING Diagnoses Mass of upper outer quadrant of right breast Nipple discharge Family history of breast cancer At high risk for breast cancer Mastalgia Procedures CLEO DIAGNOSTIC BILAT DIAGNOSTIC MAMMOGRAPHY COMPUTER-AIDED DETCJ BI Fernanda Butler DO [address] [facility] [place] [address] Br Imaging [address] [place] [address] Referral ID Status Reason Start Date Expiration Date Visits Requested Visits Authorized [id number] Authorized Auto-Generat ed Referral 08/25/2022 09/24/2023 1 [...] TIME WITH IMAGE LIMITED Fernanda Butler DO [address] [place] [address] Br Imaging [address] [place] [address] Referral ID Status Reason Start Date Expiration Date Visits Requested Visits Authorized [id number] Authorized Auto-Generat ed Referral 08/25/2022 09/24/2023 1 [...] WITHOUT&WITH CONTRAST W/CAD BILATERAL Fernanda Butler DO [address] [place] [address] Mr Imaging Referral ID Status Reason Start Date Expiration Date Visits Requested Visits Authorized [id number] Pending Review Auto-Generat ed Referral 08/25/2022 09/24/2023 1 1 [facility] for referral (narrative)* Diagnostic Procedure Only (Routine) - Closed Specialty Diagnoses / Procedures Referred By Harry gasca Referred To Contact BR IMAGING Diagnoses Mass of upper outer quadrant of right breast Nipple discharge Family history of breast cancer At high risk for breast cancer Mastalgia Procedures US BREAST LTD RT US BREAST UNI REAL TIME WITH IMAGE LIMITED Fernanda Butler DO [address] [place] [address] Br Imaging [address] [place] [address] Referral ID Status Reason Start Date Expiration Date V isits Requested Visits Authorized [id number] Closed Auto-Generate d Referral 08/25/2022 09/24/2023 1 1 [facility] for visit Narrative* Diagnostic Procedure Only (Routine) - Closed Specialty Diagnoses / Procedures Referred By Harry gasca Referred To Contact BR IMAGING Diagnoses Mass of upper outer quadrant of right breast Nipple discharge Family history of breast cancer At high risk for breast cancer Mastalgia Procedures US BREAST LTD RT US BREAST UNI REAL TIME WITH IMAGE LIMITED Fernanda Butler, DO [address] [place] [address] Br Imaging [address] [place] [address] Referral ID Status Reason Start Date Expiration Date V isits Requested Visits Authorized [id number] Closed Auto-Generate d Referral 08/25/2022 09/24/2023 1 1 [facility] Summary Purpose Family History No Family History Records FoundNo Family History Records FoundNo Family History Records FoundNo Family History Records FoundNo Family History Records FoundNo Family History Records FoundNo Family History Records Found No data available for this section No data available for this section No data available for this section No Family History Records Found Advance Directives No Advanced Directives Records FoundDocuments on File Type Date Recorded Patient Executive Vice President And Chief Financial Officer Expl anation Advance Directives and Living Will Documents on File Type Date Recorded Patient Executive Vice President And Chief Financial Officer Expl anation Advance Directives and Livin g Will 09/26/2020 12:00 AM Latest Code Status on File Code Status Date Activated Date Inactivated Comments Full Code 09/26/2020 1:59 PM 09/26/2020 10:04 PM Full Code 09/26/2020 9:00 AM 09/26/2020 1:59 PM Documents on File Type Date Recorded Patient Executive Vice President And Chief Financial Officer Expl anation Advance Directives and Livin g [...] Balderas MD - 08/14/2020 3:51 PM EST [facility] [address] [facility] [address] CONSULT VISIT Patient Name: Fernanda Cha : 1995 MR #: [id number] SUBJECTIVE: Fernanda Cha is a 24 y.o. [...] reports she had a laparoscopy procedure in [phone]. She notes family hx (mom and maternal grandma) of endometriosis. The patient is otherwise well and without fevers, chills, CP, SOB, chest papitations, severe abdominal or pelvic pain, nausea, vomiting, bladder or bowel issues. Patient's review of systems, past medical, surgical, social, and family histories have been reviewed and updated in the chart. EAP CLINICIAN History: Period Pattern: (!) Irregular Menstrual Flow: [...] file Gets together: Not on file Attends restoration service: Not on file Active member of [...] and Orilissa. Advised on side effects and long term use. Pt also advised on robotic assisted [...] RN - 09/25/2020 9:09 AM EST [facility] [address] [place] [phone] PRE-OPERATIVE CONSULT Pre-Operative Visit: 09/25/20 Date Of Surgery: 09/26/20 Location Of Surgery: [facility] Pre-Op Dx: Pelvic pain, Endometriosis, Ovarian [...] 09/26/2020 7:51 PM EST Pt transported to [facility] via wheelchair and was picked up by a family member. documented in this encounter* Darlin Balderas MD - 10/09/2020 12:03 PM EST [facility] [address] [facility] [address] POST-OPERATIVE VISIT Surgery: ROBOTIC ASSISTED LAPAROSCOPIC EXCISION [...] histories have been reviewed and updated in [facility] charting. Physical Exam: Physical Exam Constitutional: Appearance: [...] interstitial cystitis Discharge Instructions * Instructions* Katarzyna Fontaine, LCAC OPERATOR - 09/24/2020 Follow preprinted discharge instructions given [...] your doctor if you can take an nbuy-vcw-ycxtwow medicine. Take your pain medicine as soon [...] Log into your personal health record on [email or web address] and enter M536 in the Education box [...] Pelvic pain in female Darlin Balderas MD [address] [place] [address] Specialty Diagnoses / Procedures Referred By Harry gasca Referred To Contact Rehabilitation Diagnoses Myofascial muscle pain Pelvic pain in female Jun Suh PA-C [address] [place] [address] Referral ID Status Reason Start Date Expiration Date V isits Requested Visits Authorized [id number] Authorized 04/02/2022 04/02/2023 1 1 Specialty Diagnoses / Procedures Referred By Contac t Referred To Contact MR IMAGING Diagnoses Mass of upper outer quadrant of right breast Nipple discharge Family history of breast cancer At high risk for breast cancer Mastalgia Procedures MRI BREAST WO/W IVCON BILAT MRI BREAST WITHOUT&WITH CONTRAST W/CAD BILATERAL Fernanda Butler DO [address] [place] [address] Mr Imaging Referral ID Status Reason Start Date Expiration Date V isits Requested Visits Authorized [id number] Closed Auto-Generate d Referral 09/04/2022 11/03/2022 1 1 Specialty Diagnoses / Procedures Referred By Harry gasca Referred To Contact Diagnoses Interstitial cystitis Marlys West, LCAC OPERATOR [address] [place] [address] Referral ID Status Reason Start Date Expiration Date Visits Re quested Visits Authorized [id number] Closed 1 1 Additional Source Comments INFORMATION SOURCE (unrecogn ized section and content) DATE CREATED AUTHOR 07/10/2018 [facility] DATE CREATED AUTHOR AUTHOR'S ORGANIZ ATION 11/15/2020 [facility] DATE CREATED AUTHOR AUTHOR'S ORGANIZ ATION 06/21/2022 [facility] DATE CREATED AUTHOR AUTHOR'S ORGANIZ ATION 10/09/2022 [facility] DATE CREATED AUTHOR AUTHOR'S ORGANIZ ATION 10/10/2022 [facility] DATE CREATED AUTHOR AUTHOR'S ORGANIZ ATION 11/08/[address] [facility] DATE CREATED AUTHOR AUTHOR'S ORGANIZ ATION 07/23/2023 [facility] Specialists EPIC DATE CREATED AUTHOR AUTHOR'S ORGANIZ ATION 10/08/2023 [facility] Reason for Visit (unrecogniz ed section and [...] Irritable bowel syndrome, unspecified type [K58.9] Procedures UT LAPAROSCOPY W TOT HYSTERECTUTERUS <=250 GRAM W TUBE/OVARY UT LAP,FULGURATE/EXCISE LESIONS UT REOPEN FALLOPIAN TUBE,CHROMOTUBATION UT CYSTOSCOPY,DIL BLADDER,GEN ANESTH UT INSERT INTRAUTERINE DEVICE Darlin Balderas MD [address] [facility] [place] [address] Reason Onset Date Comments PFT & Prescriptions 10/09/2020 Reason Comments Post-op RALS, EOE, chromoper tubation, left ovarian cystectomy, cystoscopy with hydrodistention done on 09/26/20. Reason Onset Date Comments Lotrisone Cream Rx 08/16/2020 Reason Comments Annual Exam Pt presents today fo r an annual mobile engineer exam with pap. Reason Comments Procedure Bladder [...] WITHOUT&WITH CONTRAST W/CAD BILATERAL Fernanda Butler DO [address] [place] [address] Mr Imaging Referral ID Status Reason Start Date Expiration Date V isits Requested Visits Authorized [id number] Closed Auto-Generate d Referral 09/04/2022 11/03/2022 1 [...] and Orilissa. Advised on side effects and retirement use. Pt also advised on robotic assisted [...] sign. PFT referral entered. Pt lives in [place], [place] (near [place]). This nurse called [facility] in [place], no answer. LVM requesting a return call to see if they offer PFT. P: [phone]. No fax number listed on their website. [...] irritation subside. documented in this encounter Rosaura Mcleod CNP - 09/26/2020 9:50 AM EST H&P Notes (unrecognized sect ion and content) HISTORY AND PHYSICAL Patient Name: Fernanda Cha Admit Date: [id number] MR #: [id number] : 1995 Physicians: Asad Owens DO (Family); [...] file Gets together: Not on file Attends restoration service: Not on file Active member of [...] physical and plan of care of Fernanda Cha. I have reviewed the note and concur with the documentation completed by Rosaura Mcleod CNP . Darlin Balderas MD 09/26/2020 11:00 AMdocumented in this encounter Shaan Figueroa RN - 09/23/2020 2:13 PM EST Nursing Notes (unrecognized section and content) Patient Instructions for [facility]: Prior to arrival: ? Please be sure to wear loose, comfortable clothing and non-skid shoes ? Bring your health insurance information and a photo ID, as well as your Living Will or Durable Power of [employer] if it is available to you. ? Bring your cane/walker any applicable assistive device. If you currently use a CPAP, please bring this device with you on the day of surgery. ? Bring a list of your medications with the name of the medication, dose and how often you are taking it. Be sure to include herbal preparations and wscf-wtt-rivfxda medications on this list. ? Carefully follow [...] of lotions, perfumes or powders. All nail czech is to be removed from fingernails and [...] day of your surgery/procedure. ? Parking at [facility] is free. Please park in the lot in front of the main lobby. Enter the Main Entrance where a Electrical And Instrumentation Manager Liaison at the information desk will greet [...] Care Teams (unrecognized sec tion and content) Foreign Diplomat Relationship Specialty Start Date End Date Asad Owens, [address] [place] [id number] PCP - General Family Medicine 07/04/20 Foreign Diplomat Relationship Specialty Start Date End Date Asad Owens DO [address] [place] [phone] PCP - General Family Medicine 07/04/20 Foreign Diplomat Relationship Specialty Start Date End Date Asad Owens DO [address] [place] [phone] PCP - General Family Medicine 07/04/20 Foreign Diplomat Relationship Specialty Start Date End Date Asad Owens DO [address] [place] [id number] PCP - General Family Medicine 07/04/20 Foreign Diplomat Relationship Specialty Start Date End Date Asad Owens DO [address] [place] [address] PCP - General Family Medicine 07/04/20 Foreign Diplomat Relationship Specialty Start Date End Date Asad Owens DO [address] [place] [phone] PCP - General Family Medicine 07/04/20 Marlys West CNP [address] [place] [address] [place] [address] Obstetrics/Gynecology 10/22/22 Shaan Coronado, LCAC OPERATOR [address] [facility] [place] [address] Nurse Practitioner Obstetrics/Gynecology 05/21/23 Source Comments (unrecognize d section and content) In the event this informatio n is protected by the Federal Confidentiality of Alcohol and Drug Abuse Patient Records regulations: The Federal rules restrict any use of the information to criminally investigate or prosecute any alcohol or drug abuse patient.[facility] the event this information is protected by the Federal Confidentiality of Alcohol and Drug Abuse Patient Records regulations: The Federal rules restrict any use of the information to criminally investigate or prosecute any alcohol or drug abuse patient.[facility] the event this information is protected by the Federal Confidentiality of Alcohol and Drug Abuse Patient Records regulations: The Federal rules restrict any use of the information to criminally investigate or prosecute any alcohol or drug abuse patient.[facility] the event this information is protected by the Federal Confidentiality of Alcohol and Drug Abuse Patient Records regulations: The Federal rules restrict any use of the information to criminally investigate or prosecute any alcohol or drug abuse patient.[facility] Center[facility] the event this information is protected by the Federal Confidentiality of Alcohol and Drug Abuse Patient Records regulations: The Federal rules restrict any use of the information to criminally investigate or prosecute any alcohol or drug abuse patient.[facility] FOR RECORDS PERTAINING TO PATIENTS WHO ARE [...] BE BASED ON THE PRIMARY CLINICAL RECORDS. [facility] Resource Interactive [facility]. provides no warranty or guarantee of the accuracy or completeness of information in this document.
== END 2023-10-22 08:55 | disposition home or self-care (01) ==
LOC: NOMS 08:54
PROVIDERS: Visit Provider Obstetrics & Gynecology
DX: N92.6 Irregular menstruation, unspecified (principal); Z3A.00 Weeks of gestation of pregnancy not specified
CPT/HCPCS: 76817

== ENCOUNTER 2024-07-11 13:18 | Emergency (ER) | payer OTHER, SELFPAY ==
[2024-07-11 13:26] VITALS: BP 108/75; PULSE 83; TEMP 37; O2SAT 100; BMI 23.9
--- NOTE | 2024-07-11 13:37 | CT_ITS ---
[address] [address] Patient Name: FERNANDA CLIFTON MRN: [id number] date: 1995 Sex: F Assigned Patient Location: ER Current Patient Location: Accession/Order Number: [id number] Exam Date: 07/11/2024 14:36 Report Date: 07/11/2024 15:18 At the request of: KIRIT NGUYEN Procedure: CT abdomen pelvis w con EXAMINATION: CT abdomen pelvis w con HISTORY: Abdominal pain COMPARISON: No relevant comparison available. TECHNIQUE: Axial, Coronal, and Sagittal images were obtained without and/or with IV contrast as indicated by examination type. Dose reduction techniques were achieved by using automated exposure control and/or adjustment of mA and/or kV according to patient size and/or use of iterative reconstruction technique. FINDINGS: LUNG BASES: No visible pulmonary or pleural disease. LIVER: No enlargement, atrophy, suspicious density, or significant focal lesion. BILIARY: No dilatation or calcification. PANCREAS: No lesion, fluid collection, or abnormal duct dilatation. SPLEEN: No enlargement or focal lesion. ADRENALS: No mass or enlargement. KIDNEYS: No mass, obstruction, or calcification. BOWEL/MESENTERY: No visible mass, obstruction, or bowel wall thickening. AORTA/VASCULAR: No aneurysm or dissection. RETROPERITONEUM: No mass or adenopathy. LYMPH NODES: No adenopathy. URINARY BLADDER: No visible focal wall thickening, lesion, or calculus. PELVIC ORGANS: 2.0 cm right ovarian cyst. Prominent periuterine vessels. No distinguishable difference between the endometrium and myometrium, but the endometrium may be abnormally thickened up to 20 mm. ABDOMINAL WALL: No mass or hernia. BONES: No bony lesion or fracture. OTHER: Negative. CT/CT abdomen pelvis w con IMPRESSION: 1. Right ovary contains a 2.0 cm cyst of uncertain clinical significance. 2. Suspect abnormal thickening of the endometrium, although there is imperceptibility difference between the endometrium and myometrium. Consider ultrasound evaluation. 3. Otherwise unremarkable abdomen and pelvis. Electronically authenticated by: CELY PLATA Date: 07/11/2024 15:18
--- NOTE | 2024-07-11 13:41 | ED_ITS ---
HPI HPI - General Adult General Chief complaint: Abdominal Pain Stated complaint: BLOOD IN STOOL Time Seen by Provider: 07/11/24 13:21 Source: patient Mode of arrival: walk-in Limitations: no limitations History of Present Illness HPI narrative: Patient is a 28-year-old female presents to the emergency department for 2-day history of mid to low abdominal pain and cramping. She states today she noted red blood in her stool. She states she did have to strain some to have a bowel movement. She has not had any fevers, cough or congestion. She denies urinary symptoms. She does not believe she is but states her menstrual cycle is typically irregular anyway. No medications taken prior to arrival. She denies previous abdominal surgeries. Related Data Previous Rx's ?Medication ?Instructions ?Recorded dicyclomine 20 mg tablet 20 mg PO QID PRN abdominal pain 07/11/24 #12 tabs hydrocodone 5 mg-acetaminophen 325 1 tab PO Q6H PRN pain 2 days #8 07/11/24 mg tablet tabs ketorolac 10 mg tablet 10 mg PO TID PRN pain #10 tabs 07/11/24 ondansetron 4 mg disintegrating 4 mg PO Q6H PRN nausea and 07/11/24 tablet vomiting #12 tabs Allergies Allergy/AdvReac Type Severity Reaction Status Date / Time No Known Drug Allergies Allergy Verified 07/11/24 13:26 Opioid HPI Opioid Management Most Recent Opioid Data: Last Pain Scale 9 07/11/24 14:22 07/11/24 Last MAR Pain Assessment 07/11/24 14:22 Review of Systems ROS Constitutional Denies: fever or chills Ears, nose, mouth, and throat Denies: throat pain or nasal congestion Cardiovascular Denies: chest pain Respiratory Denies: shortness of breath Gastrointestinal Reports: abdominal pain; Denies: nausea, vomiting or diarrhea Musculoskeletal Denies: back pain Integumentary/Breast Denies: rash Neurological Denies: numbness in extremities or weakness in extremities Hematologic/Lymphatic Denies: easy bruising or easy bleeding [facility] Medical History (Updated 07/11/24 @ 16:56 by FERNANDO May) Endometriosis ?N80.9 - Endometriosis, unspecified (ICD-10) Anemia ?D64.9 - Anemia, unspecified (ICD-10) Missed ?O02.1 - Missed (ICD-10) Migraine ?G43.909 - Migraine, unspecified, not intractable, without status migrainosus (ICD-10) Thyroid nodule ?E04.1 - Nontoxic single thyroid nodule (ICD-10) Surgical History (Updated 07/22/23 @ 13:18 by Marylou Hodgson NP) History of laparoscopy ?Z98.890 - Other specified postprocedural states (ICD-10) History of laparoscopy ?Z98.890 - Other specified postprocedural states (ICD-10) Family History (Updated 07/22/23 @ 13:18 by Marylou Hodgson NP) Other Family history of diabetes mellitus Social History Within the past year, how often did you have a drink containing alcohol: mo nthly or less Smoking status: Never smoker Non-prescribed substance use: denies use 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 Highest level of school completed/degree received: Bachelor's degree Little interest or pleasure in doing things: not at all Feeling down, depressed, or hopeless: not at all Exam Narrative Exam Narrative: Gen.: Awake, alert, in no distress Head: Normocephalic, atraumatic ENT: Moist mucous membranes Respiratory: No respiratory distress, lungs clear bilaterally Cardio: Regular rate and rhythm Gastrointestinal: Abdomen is soft, nondistended and mildly tender to palpation in the umbilical and suprapubic abdomen with no guarding or rebound Extremities: Moves extremities equally Psych: Normal mood and affect Neuro: No focal neuro deficit Skin: Warm, dry, intact Constitutional Vital Signs, click to edit/add: Last Vital Signs Temp 98.6 F 07/11/24 13:26 Pulse 83 07/11/24 13:26 Resp 20 07/11/24 13:26 BP 108/75 07/11/24 13:26 Pulse Ox 100 07/11/24 13:26 O2 Del Method Room Air 07/11/24 13:26 Course Vital Signs Vital signs: Vital Signs Temperature 98.6 F 07/11/24 13:26 Pulse Rate 83 07/11/24 13:26 Respiratory Rate 20 07/11/24 13:26 Blood Pressure 108/75 07/11/24 13:26 Pulse Oximetry 100 07/11/24 13:26 Oxygen Delivery Method Room Air 07/11/24 13:26 Temperature 98.6 F 07/11/24 13:26 Pulse Rate 83 07/11/24 13:26 Respiratory Rate 20 07/11/24 13:26 Blood Pressure 108/75 07/11/24 13:26 Pulse Oximetry 100 07/11/24 13:26 Oxygen Delivery Method Room Air 07/11/24 13:26 Medical Decision Making MDM Narrative Medical decision making narrative: Rectal exam was performed with Leslie Hall RN at bedside throughout the duration of the exam. External rectal exam with no evidence of hemorrhoids, bleeding or masses. Lab studies show no evidence of acute process, CT of the abdomen and pelvis is unremarkable however radiologist notes a small right ovarian cyst and mildly thickened endometrium. Ultrasound shows the same with no evidence of acute process. Patient medicated for pain for home, CT does appear to have a significant amount of stool and the patient was encouraged to take stool softeners. Vital signs are unremarkable and abdomen is soft and benign at discharge. Follow-up with primary care and return to the ER if symptoms change or worsen. SUPERVISED APC VISIT, PHYSICIAN ATTESTATION: Based on the medical record the care appears appropriate. ? Medical Records Medical records reviewed: Yes I reviewed the patient's medical records Lab Data Lab results reviewed: Yes I reviewed the patient's lab results Labs: Lab Results 07/11/24 Range/Units 13:45 WBC 7.7 (4.0-11.0) 10^3/uL RBC 4.90 (4.20-5.40) 10^6/uL Hgb 14.4 (12.0-16.0) g/dL Hct 43.0 (36.0-48.0) % MCV 87.8 (81.0-99.0) fL MCH 29.4 (26.7-34.0) pg MCHC 33.5 (29.9-35.2) g/dL RDW 12.5 (11.0-15.0) % Plt Count 216 (150-450) 10^3/uL MPV 10.2 (9.5-13.5) fL Neut % (Auto) 75.8 H (43.0-75.0) % Lymph % (Auto) 19.5 L (20.5-60.0) % [place] % (Auto) 3.5 (1.7-12.0) % Eos % (Auto) 0.8 L (0.9-7.0) % Baso % (Auto) 0.3 (0.2-2.0) % Neut # (Auto) 5.9 (1.4-6.5) 10^3/uL Lymph # (Auto) 1.5 (1.2-3.8) 10^3/uL [place] # (Auto) 0.3 (0.3-0.8) 10^3/uL Eos # (Auto) 0.1 (0.0-0.7) 10^3/uL Baso # (Auto) 0.0 (0.0-0.1) 10^3/uL Abs Immat Gran (auto) 0.01 (0.00-0.03) 10^3/uL Imm/Tot Granulo (auto) 0.1 (0.0-0.5) % ESR 12 (<=20) mm/hr Sodium 139 (136-145) mmol/L Potassium 3.1 L (3.5-5.1) mmol/L Chloride 103 (98-107) mmol/L Carbon Dioxide 29.1 (21.0-32.0) mmol/L Anion Gap 10.0 BUN 7.0 (7.0-18.0) mg/dL Creatinine 0.71 (0.55-1.02) mg/dL Est GFR ( Amer) >60 (>=60 mL/min/1.73m^2) Est GFR (Non-Af Amer) >60 (>=60 mL/min/1.73m^2) BUN/Creatinine Ratio 9.9 Glucose 115 H (74-106) mg/dL Lactate 1.5 (0.4-2.0) mmol/L Calcium 9.3 (8.5-10.1) mg/dL Total Bilirubin 1.1 H (0.2-1.0) mg/dL AST 12 L (15-37) U/L ALT 16 (14-59) U/L Alkaline Phosphatase 91 (46-116) U/L C-Reactive Protein <0.50 (<=0.50) mg/dL Total Protein 8.0 (6.4-8.2) g/dL Albumin 4.1 (3.4-5.0) g/dL Globulin 3.9 g/dL Albumin/Globulin Ratio 1.1 Lipase 46.0 (16.0-77.0) U/L Urine Color Lt. yellow (YELLOW) Urine Clarity Clear (CLEAR) Urine pH 6.0 (5.0-9.0) Ur Specific [place] 1.020 (1.005-1.025) Urine Protein Negative (NEG/TRACE) mg/dL Urine Glucose (UA) Negative (NEGATIVE) mg/dL Urine Ketones Negative (NEGATIVE) mg/dL Urine Occult Blood Negative (NEGATIVE) Urine Nitrite Negative (NEGATIVE) Urine Bilirubin Negative (NEGATIVE) Urine Urobilinogen 0.2 (0.2-1.0) EU/dL Ur Leukocyte Esterase Negative (NEGATIVE) Urine HCG, Qual Negative (NEGATIVE) Imaging Data CT scan - abdomen: Attestation: I have reviewed the pertinent imaging results. Radiologist's impression: ITS Impressions Abdomen/Pelvis CT 07/11/24 13:37 IMPRESSION: 1. Right ovary contains a 2.0 cm cyst of uncertain clinical significance. 2. Suspect abnormal thickening of the endometrium, although there is imperceptibility difference between the endometrium and myometrium. Consider ultrasound evaluation. 3. Otherwise unremarkable abdomen and pelvis. Electronically authenticated by: CELY PLATA Date: 07/11/2024 15:18 Discharge Plan Discharge Chief Complaint: Abdominal Pain Clinical Impression: Abdominal pain Patient Disposition: Home, Self-Care Time of Disposition Decision: 16:56 Condition: Good Prescriptions / Home Meds: New hydrocodone-acetaminophen 5-325 mg tablet 1 tab PO Q6H PRN (Reason: pain) 2 Days Qty: 8 0RF Rx Instructions: DX: R10.9 ketorolac 10 mg tablet 10 mg PO TID PRN (Reason: pain) Qty: 10 0RF dicyclomine 20 mg tablet 20 mg PO QID PRN (Reason: abdominal pain) Qty: 12 0RF ondansetron 4 mg tablet,disintegrating 4 mg PO Q6H PRN (Reason: nausea and vomiting) Qty: 12 0RF Print Language: Hebrew Instructions: Abdominal Pain (ED) Referrals: THANIA EWING [Primary Care Provider] - 1 week
[2024-07-11 13:55] LABS: Bilirubin Urine NEGATIVE (NEGATIVE); Blood Urine NEGATIVE (NEGATIVE); Clarity Urine CLEAR (CLEAR); Color Urine LT. YELLOW (YELLOW); Glucose Urine UA NEGATIVE (NEGATIVE); Ketones Urine NEGATIVE (NEGATIVE); Leukocyte Esterase Urine NEGATIVE (NEGATIVE); Nitrite Urine NEGATIVE (NEGATIVE); Protein Urine NEGATIVE (NEG/TRACE); Urobilinogen Urine 0.2 EU/dL (0.2-1.0)
[2024-07-11 13:57] LABS: HCG Qualitative Urine* NEGATIVE (NEGATIVE); Internal Control Within Normal Limits
[2024-07-11 13:58] LABS: Basophils Percent Auto 0.3 % (0.2-2.0); Eosinophils Absolute Auto 0.1 10^3/uL (0.0-0.7); Eosinophils Percent Auto 0.8 % (0.9-7.0); Hemoglobin 14.4 g/dL (12.0-16.0); Immature Granulocytes Abs Auto 0.01 10^3/uL (0.00-0.03); Immature Granulocytes Pct Auto 0.1 % (0.0-0.5); Lymphocytes Absolute Auto 1.5 10^3/uL (1.2-3.8); Lymphocytes Percent Auto 19.5 % (20.5-60.0); Mean Corpuscular HGB Conc 33.5 g/dL (29.9-35.2); Mean Corpuscular Hemoglobin 29.4 pg (26.7-34.0); Mean Corpuscular Volume 87.8 fL (81.0-99.0); Mean Platelet Volume 10.2 fL (9.5-13.5); Monocytes Absolute Auto 0.3 10^3/uL (0.3-0.8); Monocytes Percent Auto 3.5 % (1.7-12.0); Neutrophils Absolute Auto 5.9 10^3/uL (1.4-6.5); Neutrophils Percent Auto 75.8 % (43.0-75.0); Platelet Count 216 10^3/uL (150-450); Red Cell Distribution Width 12.5 % (11.0-15.0); White Blood Count 7.7 10^3/uL (4.0-11.0)
[2024-07-11 14:00] LABS: Urine Microscopic Indicated NO
[2024-07-11 14:04] LABS: Erythrocyte Sedimentation Rate 12 mm/hr (<=20)
[2024-07-11 14:11] LABS: Alanine Aminotransferase 16 U/L (14-59); Albumin Globulin Ratio 1.1; Albumin Level 4.1 g/dL (3.4-5.0); Alkaline Phosphatase 91 U/L (46-116); Aspartate Amino Transferase 12 U/L (15-37); BUN Creatinine Ratio 9.9; Bilirubin Total 1.1 mg/dL (0.2-1.0); C Reactive Protein <0.50 mg/dL (<=0.50); Calcium 9.3 mg/dL (8.5-10.1); Carbon Dioxide 29.1 mmol/L (21.0-32.0); Chloride 103 mmol/L (98-107); Estimated GFR (African America >60 (>=60 mL/min/1.73m^2); Estimated GFR (Non-African Ame >60 (>=60 mL/min/1.73m^2); Globulin 3.9 g/dL; Glucose 115 mg/dL (74-106); Potassium 3.1 mmol/L (3.5-5.1); Sodium 139 mmol/L (136-145)
[2024-07-11 14:14] LABS: Lactate/Lactic Acid 1.5 mmol/L (0.4-2.0)
[2024-07-11] MEDS: HYOSCYAMINE SULFATE 0.125 MG TAB.SUBL SL (14:22)
[2024-07-11] MEDS: KETOROLAC TROMETHAMINE 30 MG/ML VIAL IVP (14:22)
--- NOTE | 2024-07-11 15:22 | US_ITS ---
The [address] [address] Patient Name: FERNANDA CLIFTON MRN: [id number] date: 1995 Sex: F Assigned Patient Location: ER Current Patient Location: Accession/Order Number: [id number] Exam Date: 07/11/2024 16:09 Report Date: 07/11/2024 19:27 At the request of: KIRIT NGUYEN Procedure: US pelvis transvaginal EXAM: ULTRASOUND OF THE PELVIS NON OB LIMITED with TV Duplex: HISTORY: AB [address] scan COMPARISON: None. TECHNIQUE: Multiple sonographic images are performed of the pelvis using grayscale, spectral and color Doppler with both transabdominal and transvaginal probe. FINDINGS: Uterus: The uterus measures 9.8 x 4.5 x 6.3 cm. There is an avascular anechoic area seen off of the superior uterine that measures 1.2 x 0.5 x 1.1 cm. Endometrium: TA: 17 mm. TV: 16 mm. Cervix: Normal Ovaries: Right ovary: The right ovary measures 3.3 x 2.6 x 2.5 cm. Blood flow: Arterial and venous blood flow demonstrated. Complex lacelike cyst measures 1.3 x 1.9 x 1.4 cm. Left ovary: Not visualized due to bowel gas Free fluid: None. US/US pelvis transvaginal IMPRESSION: 1. Thickened endometrium. Please correlate with patient's beta hCG. 2. Left ovary not visualized due to bowel gas. 3. Complex lacelike cyst in the right ovary appears to be a hemorrhagic cyst. 3. Uterine fibroid. Electronically authenticated by: ALANA PURCELL Date: 07/11/2024 19:27
== END 2024-07-11 17:07 | disposition home or self-care (01) ==
PROVIDERS: Physician Assistant; Emergency Provider Emergency Medicine; PCP Family Medicine
DX: R10.30 Lower abdominal pain, unspecified (principal); N83.201 Unspecified ovarian cyst, right side
CPT/HCPCS: 36415; 74177; 76830; 80053; 81003; 83605; 83690; 84703; 85025; 85652; 86140; 96374; 99285; J1885; Q9967

== ENCOUNTER 2025-06-12 19:34 | Outpatient (OUT) | payer OTHER, SELFPAY ==
--- OUTSIDE RECORDS SUMMARY | 2023-12-29 06:30 | XMS_ITS ---
Author Organization [facility] Address [address] [place] [address] Care Team Providers Care Pecan Gatherer Name Role Phone Sandra Tinsley Primary Care Provider [phone] Julia Carrasco [facility] [phone] REASON FOR VISIT PROPHY Encounters Encounter Location Date Provider Diagnosis [address] [place] [address] 12/29/2023 Julia Carrasco Plan Of Treatment No Information Progress Notes * FERNANDA CLIFTON ADOB:1995 (29 yo F)Acc No.[id number]:12/29/2023 Patient:?FERNANDA CLIFTON :?Julia BraunB:1995???Age:28 Y???Sex: FemaleDate:12/29/2023hone:[phone]:[address] [place], [place] [address]Pcp:Sandra Mares Subjective: * Chief Complaints: * P ROPHY Billing Information: * Procedure Codes: * Electronic signature of Julia Carrasco on 06/12/2025 at 07:39 PM ESTSign off status: Pending * Provider: Levi Beth Date: 0 12/29/2023 Generated for Printing/Faxing/eTransmitting on:?06/12/2025 07:39 PM EST
--- OUTSIDE RECORDS SUMMARY | 2024-02-23 10:45 | XMS_ITS ---
Author Organization [facility] Address [address] [place] [address] Care Team Providers Care Wood Router Hand Name Role Phone Julio Tinsley Primary Care Provider REASON FOR VISIT FILLING Encounters Encounter Location Date Provider Diagnosis [address] [place] [address] 02/23/2024 Julio Lopez Plan Of Treatment No Information Progress Notes * FERNANDA CLIFTON ADOB:1995 (29 yo F)Acc No.[id number]:02/23/2024 Patient:?FERNANDA CLIFTON :?JULIO LOPEZ DDSDOB:1995???Age: 28 Y???Sex:FemaleDate:4Phone:[phone]:[address] [place], [place] [address] Subjective: * Chief Complaints: * F ILLING Billing Information: * Procedure Codes: * Electronic signature of Julio Lopez DDS on 06/12/2025 at 07:38 PM ESTSign off status: Pending * Provider: Kadeem LOPEZ DDS Date: 02/23/2024 Generated for Printing/Faxing/eTransmitting on:?06/12/2025 07:38 PM EST
--- OUTSIDE RECORDS SUMMARY | 2024-03-01 10:45 | XMS_ITS ---
Author Organization [facility] Servic es Address [address] [place] [address] Care Team Providers Care Mill Tender Second Operator Name Role Phone Julio Tinsley Primary Care Provider REASON FOR VISIT FILLING Encounters Encounter Location Date Provider Diagnosis [address] [place] [address] 03/01/2024 Julio Lopez Plan Of Treatment No Information Progress Notes * FERNANDA CLIFTON ADOB:1995 (29 yo F)Acc No.[id number]:03/01/2024 Patient:?FERNANDA CLIFTON :?JULIO LOPEZ DDSDOB:1995???Age: 28 Y???Sex:FemaleDate:4Phone:[phone]:36 [facility] Subjective: * Chief Complaints: * F ILLING * Electronic signature of Julio Lopez DDS on 06/12/2025 at 07:38 PM ESTSign off status: Pending * Provider: Kadeem LOPEZ DDS Date: 0 03/01/2024 Generated for Printing/Faxing/eTransmitting on:?06/12/2025 07:38 PM EST
--- OUTSIDE RECORDS SUMMARY | 2024-06-12 04:15 | XMS_ITS ---
Author Organization [facility] Servic es Address [address] [place] [address] Care Team Providers Care Corral Boss Name Role Phone Sandra Tinsley Primary Care Provider Jaylene Queen [facility] [phone] REASON FOR VISIT FILLING Encounters Encounter Location Date Provider Diagnosis [place] [address] [place] [address] 06/12/2024 Jaylene Queen Plan Of Treatment No Information Progress Notes * FERNANDA CLIFTON ADOB:1995 (29 yo F)Acc No.[id number]:06/12/2024 Patient:?FERNANDA CLIFTON :?Jaylene Queen DDSDOB:1995???Age:28 Y ???Sex:FemaleDate:06/12/2024hone:[phone]:36 [facility]Pcp:Sandra Mares Subjective: * Chief Complaints: * F ILLING * Electronic signature of Jaylene Queen DDS on 06/12/2025 at 07:39 PM ESTSign off status: Pending * Provider: Julio C Quene DDS Date: 08/12/2023 Generated for Printing/Faxing/eTransmitting on:?06/12/2025 07:39 PM EST
--- OUTSIDE RECORDS SUMMARY | 2024-07-20 03:30 | XMS_ITS ---
Author Organization [facility] Servic es Address [address] [place] [address] Care Team Providers Care Mason Apprentice Name Role Phone Sandra Tinsley Primary Care Provider Trey Dietz [facility] [phone] REASON FOR VISIT FILLING Encounters Encounter Location Date Provider Diagnosis [place] [address] [place] [address] 07/20/2024 Trey Dietz Plan Of Treatment No Information Progress Notes * FERNANDA CLIFTON ADOB:1995 (29 yo F)Acc No.[id number]:07/20/2024 Patient:?FERNANDA CLIFTON :?Trey Hdz DDSDOB:1995???Age:28 Y???Sex: FemaleDate:07/20/2024hone:[phone]:[address] [place], [place] [address]Pcp:Sandra Mares Subjective: * Chief Complaints: * F ILLING * Electronic signature of Trey Dietz on 06/12/2025 at 07:39 PM ESTSign off status: Pending * Provider: Preston Hdz DDS Date: 09/20/2023 Generated for Printing/Faxing/eTransmitting on:?06/12/2025 07:39 PM EST
--- OUTSIDE RECORDS SUMMARY | 2025-06-12 19:38 | XMS_ITS | Clinical Summary ---
Author Organization [facility] Address [address], [address] [place] [address] Care Team Providers Care Machinist Supervisor Outside Name Role Phone Unavailable Primary Care Provider Unavailabl e Medications No known medications Family History Medical HistoryRelationNameCommentsDiabetesFatherDiabetesMaternal Grandfather Ovarian CancerMaternal GrandmotherUterine CancerMaternal GrandmotherDiabetes MotherOvarian CancerOtherMGGDiabetesPaternal GrandfatherDiabetesPaternal GrandmotherRelationNameStatusCommentsFatherMaternal GrandfatherMaternal GrandmotherMotherOtherMGGPaternal GrandfatherPaternal Grandmother Social History Tobacco UseTypesPacks/DayYears UsedDateSmoking Tobacco: NeverSmokeless Tobacco: NeverCommentsNoSex and Gender InformationValueDate RecordedSex Assigned at BirthNot on fileLegal RvaHkcgsz53/23/2015 1:21 PM EDTGender IdentityNot on fileSexual OrientationNot on file Last Filed Vital Signs Vital SignReadingTime TakenCommentsBlood Sybvtnbw384/6912 9:30 AM EST Uvypu208207/12/2018 9:30 AM ESTTemperature--Respiratory Rate--Oxygen Saturation-- Inhaled Oxygen Concentration--Pgcxck36.5 kg (151 lb)07/12/2018 9:30 AM ESTHeight 160 cm (5' 3 )05/31/2018 12:39 PM EDTBody Mass Index26.7510 12:39 PM EDT Plan of Treatment Not on file Insurance * Guarantor: Iliana Cha TypeRelation to PatientDate of BirthPhone Billing AddressPersonal/QfigmkXrgc[address] [place] [address]
--- OUTSIDE RECORDS SUMMARY | 2025-06-12 19:38 | XMS_ITS | Clinical Summary ---
Author Organization [facility] Address [address] [place] [address] Care Team Providers Care Slat Grader Name Role Phone Asad Owens MD Primary Care Provider [phone] Allergies Active AllergyReactionsCriticalityNoted DateComments Sulfamethoxazole-Xipphgtlyyvi98/27/2024 Other Reaction(s): hives Medications MedicationSigDispense QuantityRefillsLast FilledStart DateEnd DateStatus Progesterone 200 MG suppository Indications:History of miscarriageInsert 200 mg into the vagina at bedtime Insert suppository vaginally every night at bedtime until 12 weeks gestation 30 suppository 310/511/5Active Lo Loestrin Fe 1 MG-10 MCG / 10 MCG tablet TAKE ONE TAB BY MOUTH PER DAY ./Discontinued(Therapy completed) Encounters DateTypeDepartmentCare QmksLjlavgymggl63/10/2025Telephone NOMDebbie FRASER [facility] [place] [address] Patrizia Sethi MA 05/16/2025Telephone NOMDebbie FRASER [address] [place] [address] Ahsan Mendoza DO 05/14/2025 8:40 [place] [address] Ahsan Mendoza DO History of miscarriage; Threatened miscarriage ([facility]); Missed menses; Positive urine test ([facility])05/14/2025bstract [facility] [address] [address] Ahsan Mendoza, 05/14/2025Telephone [facility] [place] [facility] [address] [place] [address] Unallocated, Noms MD Ion 05/14/2025amboo flowsheet [facility] [address] [address] Ahsan Mendoza, 05/10/2025bstract [facility] [address] [address] Ahsan Mendoza, 05/10/2025bstract [facility] [address] [place] [address] Ahsan Mendoza, from Last 3 Months Social History Tobacco UseTypesPacks/DayYears UsedDateSmoking Tobacco: Never Assessed CommentsUnknownSex and Gender InformationValueDate RecordedSex Assigned at Not on fileLegal KdpPlgjzx12/01/2023 8:33 PM EDTGender IdentityNot on fileSexual OrientationNot on file Last Filed Vital Signs Vital SignReadingTime TakenCommentsBlood Vczyklfz708/7405/14/2025 8:42 AM EDT Pulse--Temperature--Respiratory Rate--Oxygen Saturation--Inhaled Oxygen Concentration--Ejwbqv21.2 kg (168 lb)05/14/2025 8:42 AM EDTHeight--Body Mass Index-- Plan of Treatment DateTypeDepartmentCare Team (Latest Contact Info)Jvgekifturf25/17/2025 8:30 AM ESTAncillary Procedure [facility] [address] [address] Insurance Care Teams Team MemberRelationshipSpecialtyStart DateEnd Date Asad Owens MD [address] [place] [address] PCP - GeneralFamily Rxlkeegy18/7/23
--- OUTSIDE RECORDS SUMMARY | 2025-06-12 19:38 | XMS_ITS | Patient Health Record ---
Author Organization [facility] es Address [address] [place] [address] Care Team Providers Care Custom Ski Maker Name Role Phone Sandra Tinsley Primary Care Provider Jaylene Queen Unavailable [phone] Trey Dietz Unavailable [phone] Reason For Referral No Information Plan Of Treatment No Information Insurance Providers Payer Name Payer Address Payer Phone Subscriber Number Group Number Insured Name Patient Relationship to Insured Coverage Start Date Coverage End Date Dental CareSourc e [facility] [address] [place] [phone] [id number] FERNANDA CLIFTON Self - patient is the insured [employer] [facility] CareSourcePO [address] [place] [phone] [id number], LAURENSelf - patient is the [id number] 2022
--- OUTSIDE RECORDS SUMMARY | 2025-06-12 19:38 | XMS_ITS | Encounter Summary ---
Author Organization [facility] Address [address] [place] [address] Care Team Providers Care Spiral Spring Winder Name Role Phone Asad Owens MD Primary Care Provider [phone] Encounter Details DateTypeDepartmentCare Team (Latest Contact Info)Zkacaymmhwe54/10/2025Telephone [facility] [address] [address] [place] [address] Patrizia Sethi MA Social History Tobacco UseTypesPacks/DayYears UsedDateSmoking Tobacco: Never Assessed CommentsUnknownSex and Gender InformationValueDate RecordedSex Assigned at Not on fileLegal NytZsudjo29/01/2023 8:33 PM EDTGender IdentityNot on fileSexual OrientationNot on filedocumented as of this encounter Miscellaneous Notes * Telephone Encounter - Patrizia Sethi MA - 06/11/2025 10:13 AM EST Patient called reporting lower abdominal cramping. Patient has a history of two SAB's and is currently . She has a viability ultrasound scheduled for 06/18/2025 but expressed concern due to worsening abdominal discomfort. Patient reports the pain is not severe enough to warrant an ED visit but is requesting an earlier ultrasound if possible. Advised patient that an order could be sent to [facility], and she may contact them to check for an earlier appointment. Patient agreed with this plan. Advised patient to monitor for worsening pain or heavy bleeding and to proceed to the ED if these symptoms occur. Patient verbalized understanding. Order faxed to [facility] documented in this encounter Plan of Treatment DateTypeDepartmentCare Team (Latest Contact Info)Tqobqhjmcyy34/17/2025 8:30 AM ESTAncillary Procedure [facility] [address] [place] [address] [place] [address] documented as of this encounter Visit Diagnoses Not on filedocumented in this encounter Care Teams Team MemberRelationshipSpecialtyStart DateEnd Date Asad Owens MD [address] [place] [address] PCP - GeneralFamily Lzcsfcxh80/7/23documented as of this encounter
--- OUTSIDE RECORDS SUMMARY | 2025-06-12 19:39 | XMS_ITS | Encounter Summary ---
Author Organization [facility] Address [address] [place] [address] Care Team Providers Care Automobile Mechanic Apprentice Name Role Phone Asad Owens MD Primary Care Provider [phone] Encounter Details DateTypeDepartmentCare Team (Latest Contact Info)Ywnsxswmzfi97/22/2024linisync Result Encounter [facility] External Department Unsolicited Mohinder Mendoza, DO [address] [facility] [address] [place], [place] [phone] Social History Tobacco UseTypesPacks/DayYears UsedDateSmoking Tobacco: Never Assessed CommentsUnknownSex and Gender InformationValueDate RecordedSex Assigned at Not on fileLegal WwhYedpkm12/01/2023 8:33 PM EDTGender IdentityNot on fileSexual OrientationNot on filedocumented as of this encounter Plan of Treatment DateTypeDepartup health systemCare Team (Latest Contact Info)Zmyvvonmkps88/17/2025 8:30 AM ESTAncillary Procedure [facility] [place] [facility] [address] [facility] [place] [phone] documented as of this encounter Procedures Procedure NamePriorityDate/TimeAssociated DiagnosisCommentsUS OB TRANSVAGINAL 10/22/2023 10:35 AM EDT documented in this encounter Results * US OB TRANSVAGINAL (10/22/2023 10:35 AM EDT)Anatomical RegionLaterality ModalityOtherSpecimen (Source)Anatomical Location / LateralityCollection Method / VolumeCollection TimeReceived Time10/22/2023 10:35 AM EDT Narrative 10/22/2023 10:37 AM EDT The [facility] ?[address] ? [place] [address] ? Ultrasound Report ? Signed ? Patient: ELODIA,FERNANDA ? MR#: [id number] ?? : 1995 ?Acct:[id number] ?? Age/Sex: 27 / F ?ADM Date: 10/21/24 ?? Loc: [facility] ? Attending Dr: Mohinder Mendoza D.O. ? Ordering Physician: Mohinder Mendoza D.O. ?? Date of Service: 10/22/23 ?? Procedure(s): US OB transvaginal ?? Accession Number(s): [id number] ? cc: Mohinder Mendoza D.O.; Physician,Non-Staff M.D. ? The [facility] ? [address] ? [place] [address] ? Patient Name: ?? FERNANDA ??ELODIA ? MRN: [facility]:[id number] ? date: 1995 ?Sex: F ?? Assigned Patient Location: [facility] ?? Current Patient Location: [facility] ?? Accession/Order Number: [id number] ?? Exam Date: 10/22/2023 ??08:57 ?Report Date: 10/22/2023 ??10:35 ? At the request of: ?? MOHINDER ??KELLY ? Procedure: ??US OB transvaginal ? EXAMINATION: US OB transvaginal ? HISTORY: MISSED MENSES ? COMPARISON: No relevant comparison available. ? FINDINGS: ? GESTATIONAL SAC: Present and normal appearing. ?? YOLK SAC: Present and normal appearing. ?? POLE: Present and normal appearing. ?? CARDIAC: Absent ? UTERUS: Normal size and appearance. ?? OVARIES: Right: Normal. Left: Normal. ?? CERVIX: 4.6 cm in length and closed. ?? CUL-DE-SAC: Normal. ?? OTHER: None. ? AGE BY LMP: 8 weeks 2 days ?? HOMER BY LMP: 05/31/2024 ?? AGE BY US CRL: 5 weeks 6 days ?? HOMER BY US CRL: 06/17/2024 ? US/US OB transvaginal ?? IMPRESSION: ? 1. Single intrauterine 5 weeks 6 days by today's ultrasound. ?? 2. No detectable heartbeat at this time. ? Electronically authenticated by: SANTOS ??SHERLYN ?? Date: 10/22/2023 ??10:35 ? Dictated By: ?Santos Mac M.D. ? Signed By: ?10/22/23 1037 ? DD/ 1035 ? TD/TT: ? Chemical Treatment Plant Technician: Procedure Note Radiology, Radiologist, - 10/22/2023 [place] [address] Ultrasound Report Signed Patient: FERNANDA CLIFTONMR#: [id number] : 1995Acct:[id number] Age/Sex: 27 / FADM Date: 10/22/23 Loc: [facility] Attending Dr: Mohinder Mendoza D.O. Ordering Physician: Mohinder Mendoza D.O. Date of Service: 10/22/23 Procedure(s): US OB transvaginal Accession Number(s): [id number] cc: Mohinder Mendoza D.O.; Physician,Non-Staff M.DMaricruz The [place] [id number] Patient Name: FERNANDA CLIFTON MRN: [facility]:[id number] date: 1995 Sex: F Assigned Patient Location: [facility] Current Patient Location: [facility] Accession/Order Number: [id number] Exam Date: 10/22/2023 08:57 Report Date: 10/22/2023 10:35 At the request of: MOHINDER MENDOZA Procedure: US OB transvaginal EXAMINATION: US OB transvaginal HISTORY: MISSED MENSES COMPARISON: No relevant comparison available. FINDINGS: GESTATIONAL SAC: Present and normal appearing. YOLK SAC: Present and normal appearing. POLE: Present and normal appearing. CARDIAC: Absent UTERUS: Normal size and appearance. OVARIES: Right: Normal. Left: Normal. CERVIX: 4.6 cm in length and closed. CUL-DE-SAC: Normal. OTHER: None. AGE BY LMP: 8 weeks 2 days OHMER BY LMP: 05/31/2024 AGE BY US CRL: 5 weeks 6 days HOMER BY US CRL: 06/17/2024 US/US OB transvaginal IMPRESSION: 1. Single intrauterine 5 weeks 6 days by today's ultrasound. 2. No detectable heartbeat at this time. Electronically authenticated by: SANTOS MAC Date: 10/22/2023 10:35 Dictated By: Santos Mac M.D. Signed By:10/22/23 1037 DD/ 1035 TD/TT: Chemical Treatment Plant Technician: Authorizing ProviderResult TypeResult StatusCorey Kelly DOCLINISYNC IMAGINGFinal Result documented in this encounter Visit Diagnoses Not on filedocumented in this encounter Care Teams Team MemberRelationshipSpecialtyStart DateEnd Date Asad Owens MD [address] [facility] [place] [address] PCP - GeneralFamily Erhtuknp08/7/23documented as of this encounter
--- OUTSIDE RECORDS SUMMARY | 2025-06-12 19:39 | XMS_ITS | Encounter Summary ---
Author Organization [facility] Address [address] [place] [address] Care Team Providers Care Hangar Attendant Name Role Phone Asad Owens MD Primary Care Provider [phone] Encounter Details DateTypeDepartmentCare Team (Latest Contact Info)Uapmbuesswe46/21/2023linisync Result Encounter [facility] External Department Unsolicited Mohinder Mendoza, DO [address] [facility] [address] [place], [place] [phone] Social History Tobacco UseTypesPacks/DayYears UsedDateSmoking Tobacco: Never Assessed CommentsUnknownSex and Gender InformationValueDate RecordedSex Assigned at Not on fileLegal BirTzipxt20/01/2023 8:33 PM EDTGender IdentityNot on fileSexual OrientationNot on filedocumented as of this encounter Plan of Treatment DateTypeDepartharper university hospitalCare Team (Latest Contact Info)Zqioxudikce67/17/2025 8:30 AM ESTAncillary Procedure [facility] [place] [facility] [address] [facility] [place] [phone] documented as of this encounter Procedures Procedure NamePriorityDate/TimeAssociated DiagnosisCommentsUS OB TRANSVAGINAL 07/22/2023 10:29 PM EST documented in this encounter Results * US OB TRANSVAGINAL (07/22/2023 10:29 PM EST)Anatomical RegionLaterality ModalityOtherSpecimen (Source)Anatomical Location / LateralityCollection Method / VolumeCollection TimeReceived Time07/22/2023 10:29 PM EST Narrative 07/22/2023 10:[address] [facility] ?[address] ? [place] [address] ? Ultrasound Report ? Signed ? Patient: ELODIA,FERNANDA ? MR#: [id number] ?? : 1995 ?Acct:[id number] ?? Age/Sex: 27 / F ?ADM Date: 12/21/23 ?? Loc: US ? Attending Dr: Mohinder Mendoza D.O. ? Ordering Physician: Mohinder Mendoza D.O. ?? Date of Service: 07/22/23 ?? Procedure(s): US OB transvaginal ?? Accession Number(s): [id number] ? cc: Mohinder Mendoza D.O.; Physician,Non-Staff M.D. ? The [facility] ? [address] [facility] ? [place] [address] ? Patient Name: ?? FERNANDA ??ELODIA ? MRN: [facility]:[id number] ? date: 1995 ?Sex: F ?? Assigned Patient Location: US ?? Current Patient Location: SURGOUT ?? Accession/Order Number: [id number] ?? Exam Date: 07/22/2023 ??08:02 ?Report Date: 07/22/2023 ??22:29 ? At the request of: ?? MOHINDER ??KELLY ? Procedure: ??US OB transvaginal ? EXAMINATION: US OB transvaginal ? HISTORY: VIABILITY ? COMPARISON: Ultrasound OB transvaginal 07/14/2023 ? FINDINGS: ? GESTATIONAL SAC: Present ?? YOLK SAC: Present ?? POLE: Present ?? CARDIAC: Absent ? UTERUS: Normal size and appearance. ?? OVARIES: Right: Normal. Left: Normal. ?? CERVIX: Not evaluated. ?? CUL-DE-SAC: Normal. ?? OTHER: None. ? AGE BY LMP: 14 weeks 6 days ?? HOMER BY LMP: 01/14/2024 ?? AGE BY US CRL: 6 weeks 1 day ?? HOMER BY US CRL: 03/15/2024 ? US/US OB transvaginal ?? IMPRESSION: ? 1. Single intrauterine with no detectable heartbeat and no growth ?? since study 7 days ago. Findings favor demise. ?? 2. No findings to suggest impending . ? Electronically authenticated by: SANTOS ??SHERLYN ?? Date: 07/22/2023 ??22:29 ? Dictated By: ?Santos Mac M.D. ? Signed By: ?07/22/232 ? DD/ ? TD/TT: ? Call Center Coordinator: Procedure Note Radiology, Radiologist, - 10/06/2023 [place] [address] Ultrasound Report Signed Patient: FERNANDA CLIFTONMR#: [id number] : 1995Acct:[id number] Age/Sex: 27 / FADM Date: 07/22/23 Loc: US Attending Dr: Mohinder Mendoza D.O. Ordering Physician: Mohinder Mendoza D.O. Date of Service: 07/22/23 Procedure(s): US OB transvaginal Accession Number(s): [id number] cc: Mohinder Mendoza D.O.; Physician,Non-Staff M.Radha The [place] [id number] Patient Name: FERNANDA CLIFTON MRN: [id number] date: 1995 Sex: F Assigned Patient Location: US Current Patient Location: [facility] Accession/Order Number: [id number] Exam Date: 07/22/2023 08:02 Report Date: 07/22/2023 22:29 At the request of: MOHINDER MENDOZA Procedure: US OB transvaginal EXAMINATION: US OB transvaginal HISTORY: VIABILITY COMPARISON: Ultrasound OB transvaginal 07/14/2023 FINDINGS: GESTATIONAL SAC: Present YOLK SAC: Present POLE: Present CARDIAC: Absent UTERUS: Normal size and appearance. OVARIES: Right: Normal. Left: Normal. CERVIX: Not evaluated. CUL-DE-SAC: Normal. OTHER: None. AGE BY LMP: 14 weeks 6 days HOMER BY LMP: 01/14/2024 AGE BY US CRL: 6 weeks 1 day HOMER BY US CRL: 03/15/2024 US/US OB transvaginal IMPRESSION: 1. Single intrauterine with no detectable heartbeat and nogrowth since study 7 days ago. Findings favor demise. 2. No findings to suggest impending . Electronically authenticated by: SANTOS MAC Date: 07/22/2023 22:29 Dictated By: Santos Mac M.D. Signed By:07/22/232231 DD/ 28 TD/TT: Call Center Coordinator: Authorizing ProviderResult TypeResult StatusCorey Kelly DOCLINISYNC IMAGINGFinal Result documented in this encounter Visit Diagnoses Not on filedocumented in this encounter Care Teams Team MemberRelationshipSpecialtyStart DateEnd Date Asad Owens MD [address] [place] [facility] [place] [address] PCP - GeneralFamily Rglmddid63/7/23documented as of this encounter
--- OUTSIDE RECORDS SUMMARY | 2025-06-12 19:39 | XMS_ITS | Encounter Summary ---
Author Organization [facility] Address [address] [place] [address] Care Team Providers Care Auto Air Conditioning Installer Name Role Phone Asad Owens MD Primary Care Provider [phone] Encounter Details DateTypeDepartmentCare Team (Latest Contact Info)Vjhdfzbcogf60/13/2023linisync Result Encounter [facility] External Department Unsolicited Mohinder Mendoza, DO [address] [facility] [address] [place], [place] [phone] Social History Tobacco UseTypesPacks/DayYears UsedDateSmoking Tobacco: Never Assessed CommentsUnknownSex and Gender InformationValueDate RecordedSex Assigned at Not on fileLegal UqkDbgvyn17/01/2023 8:33 PM EDTGender IdentityNot on fileSexual OrientationNot on filedocumented as of this encounter Plan of Treatment DateTypeDepartpaul oliver memorial hospitalCare Team (Latest Contact Info)Upvtsbiisyb71/17/2025 8:30 AM ESTAncillary Procedure [facility] [place] [facility] [address] [facility] [place] [phone] documented as of this encounter Procedures Procedure NamePriorityDate/TimeAssociated DiagnosisCommentsUS OB TRANSVAGINAL 07/14/2023 3:40 PM EST documented in this encounter Results * US OB TRANSVAGINAL (07/14/2023 3:40 PM EST)Anatomical RegionLateralityModality OtherSpecimen (Source)Anatomical Location / LateralityCollection Method / VolumeCollection TimeReceived Time07/14/2023 3:40 PM EST Narrative 07/14/2023 3:43 PM EST [facility] ?[address] ? [place] [address] ? Ultrasound Report ? Signed ? Patient: ELODIA,FERNANDA ? MR#: [id number] ?? : 1995 ?Acct:[id number] ?? Age/Sex: 27 / F ?ADM Date: 12/13/23 ?? Loc: US ? Attending Dr: Mohinder Mendoza D.O. ? Ordering Physician: Mohinder Mendoza D.O. ?? Date of Service: 07/14/23 ?? Procedure(s): US OB transvaginal ?? Accession Number(s): [id number] ? cc: Mohinder Mendoza D.O.; Physician,Non-Staff M.D. ? [facility] ? [address] ? [place] [address] ? Patient Name: ?? FERNANDA ??ELODIA ? MRN: [facility]:[id number] ? date: 1995 ?Sex: F ?? Assigned Patient Location: US ?? Current Patient Location: US ?? Accession/Order Number: [id number] ?? Exam Date: 07/14/2023 ??13:25 ?Report Date: 07/14/2023 ??15:40 ? At the request of: ?? MOHINDER ??KELLY ? Procedure: ??US OB transvaginal ? EXAMINATION: US OB transvaginal ? HISTORY: VIABILITY ? COMPARISON: Ultrasound OB transvaginal 07/08/2023 ? FINDINGS: ? GESTATIONAL SAC: Present and normal appearing. ?? YOLK SAC: Present and normal appearing. ?? POLE: Present and normal appearing. ?? CARDIAC: Absent ? UTERUS: Normal size and appearance. ?? OVARIES: Right: Normal. Left: Normal. ?? CERVIX: cm in length and closed. ?? CUL-DE-SAC: Normal. ?? OTHER: None. ? AGE BY LMP: 13 weeks 5 days ?? HOMER BY LMP: 01/14/2024 ?? AGE BY US CRL: 6 weeks 2 days ?? HOMER BY US CRL: 03/06/2024 ? US/US OB transvaginal ?? IMPRESSION: ? 1. Single intrauterine 6 weeks 2 days by today's ultrasound (6 weeks ? 1 day on 07/08/2023). No detectable heartbeat. demise versus early ?? intrauterine . No findings to suggest impending . ?? 2. Tiny echogenic focus along the outer margin of the gestational sac of ?? uncertain etiology. Follow-up recommended. ? Electronically authenticated by: SANTOS ??SHERLYN ?? Date: 07/14/2023 ??15:40 ? Dictated By: ?Santos Mac M.D. ? Signed By: ?13/ 1543 ? DD/ 1540 ? TD/TT: ? Swing Frame Grinder Operator: Procedure Note Radiology, Radiologist, MD - 10/06/2023 [place] [address] Ultrasound Report Signed Patient: FERNANDA CLIFTONMR#: [id number] : 1995Acct:[id number] Age/Sex: 27 / FADM Date: 07/14/23 Loc: US Attending Dr: Mohinder Mendoza D.O. Ordering Physician: Mohinder Mendoza D.O. Date of Service: 07/14/23 Procedure(s): US OB transvaginal Accession Number(s): [id number] cc: Mohinder Mendoza D.O.; Physician,Non-Staff [place] The [place] [id number] Patient Name: FERNANDA CLIFTON MRN: [id number] date: 1995 Sex: F Assigned Patient Location: US Current Patient Location: US Accession/Order Number: [id number] Exam Date: 07/14/2023 13:25 Report Date: 07/14/2023 15:40 At the request of: MOHINDER MENDOZA Procedure: US OB transvaginal EXAMINATION: US OB transvaginal HISTORY: VIABILITY COMPARISON: Ultrasound OB transvaginal 07/08/2023 FINDINGS: GESTATIONAL SAC: Present and normal appearing. YOLK SAC: Present and normal appearing. POLE: Present and normal appearing. CARDIAC: Absent UTERUS: Normal size and appearance. OVARIES: Right: Normal. Left: Normal. CERVIX: cm in length and closed. CUL-DE-SAC: Normal. OTHER: None. AGE BY LMP: 13 weeks 5 days HOMER BY LMP: 01/14/2024 AGE BY US CRL: 6 weeks 2 days HOMER BY US CRL: 03/06/2024 US/US OB transvaginal IMPRESSION: 1. Single intrauterine 6 weeks 2 days by today's ultrasound (6weeks 1 day on 07/08/2023). No detectable heartbeat. demise versus early intrauterine . No findings to suggest impending . 2. Tiny echogenic focus along the outer margin of the gestational sac of uncertain etiology. Follow-up recommended. Electronically authenticated by: SANTOS MAC Date: 07/14/2023 15:40 Dictated By: Santos Mac M.D. Signed By:07/14/231542 DD/ 39 TD/TT: Swing Frame Grinder Operator: Authorizing ProviderResult TypeResult StatusCorey Kelly DOCLINISYNC IMAGINGFinal Result documented in this encounter Visit Diagnoses Not on filedocumented in this encounter Care Teams Team MemberRelationshipSpecialtyStart DateEnd Date Asad Owens MD [address] [place] [address] PCP - GeneralFamily Zvumtkff29/7/23documented as of this encounter
--- OUTSIDE RECORDS SUMMARY | 2025-06-12 19:39 | XMS_ITS | Encounter Summary ---
Author Organization [facility] Address [address] [place] [address] Care Team Providers Care Senior Windows Systems Engineer Name Role Phone Asad Owens MD Primary Care Provider [phone] Encounter Details DateTypeDepartmentCare Team (Latest Contact Info)Kjroxnkbqdu56/22/2023linisync Result Encounter [facility] External Department Unsolicited Mohinder Mendoza, DO [address] [facility] [address] [place], [place] [address] Social History Tobacco UseTypesPacks/DayYears UsedDateSmoking Tobacco: Never Assessed CommentsUnknownSex and Gender InformationValueDate RecordedSex Assigned at Not on fileLegal BenSshzls25/01/2023 8:33 PM EDTGender IdentityNot on fileSexual OrientationNot on filedocumented as of this encounter Plan of Treatment DateTypeDepartascension standish hospitalCare Team (Latest Contact Info)Veuzoxibcqi14/17/2025 8:30 AM ESTAncillary Procedure [facility] [place] [facility] [address] [facility] [place] [address] documented as of this encounter Procedures Procedure NamePriorityDate/TimeAssociated DiagnosisCommentsUS EKICQI9507/23/2023 11:28 AM EST documented in this encounter Results * US PELVIS (07/23/2023 11:28 AM EST)Anatomical RegionLateralityModalityOther Specimen (Source)Anatomical Location / LateralityCollection Method / Volume Collection TimeReceived Time07/23/2023 11:28 AM EST Narrative 07/23/2023 11:30 AM EST [facility] ?[address] ? [place] [address] ? Ultrasound Report ? Signed ? Patient: ELODIA,FERNANDA ? MR#: [id number] ?? : 1995 ?Acct:[id number] ?? Age/Sex: 27 / F ?ADM Date: 12/22/23 ?? Loc: SURGOUT ? Attending Dr: Mohinder Mendoza D.O. ? Ordering Physician: Mohinder Mendoza D.O. ?? Date of Service: 07/23/23 ?? Procedure(s): US pelvis ?? Accession Number(s): [id number] ? cc: Mohinder Mendoza D.O.; Physician,Non-Staff M.D. ? [facility] ? [address] ? [place] [address] ? Patient Name: ?? FERNANDA ??ELODIA ? MRN: [facility]:[id number] ? date: 1995 ?Sex: F ?? Assigned Patient Location: SURGOUT ?? Current Patient Location: PST ?? Accession/Order Number: [id number] ?? Exam Date: 07/23/2023 ??10:37 ?Report Date: 07/23/2023 ??11:28 ? At the request of: ?? MOHINDER ??KELLY ? Procedure: ??US pelvis ? PROCEDURE: US pelvis, 07/23/2023 10:37 AM EST ? CLINICAL INDICATIONS: Evaluation for retained products of conception. ? COMPARISON: None ? TECHNIQUE: Transabdominal pelvic sonogram, grayscale assessment. ? FINDINGS: ? A single sagittal image of the uterus is presented. Endometrial echo complex ?? 0.8 cm. Color-flow assessment was not performed. Focal uterine abnormality is ?? not demonstrated. ? No free fluid seen. ? US/US pelvis ?? IMPRESSION: ? 1. Limited evaluation demonstrates 0.8 cm endometrial echo complex without ?? criteria for retained products of conception demonstrated. ? Electronically authenticated by: ALETHEA ??ANTHONY ?? Date: 07/23/2023 ??11:28 ? Dictated By: ?Alethea Cruz M.D. ? Signed By: ?07/23/23 1130 ? DD/ 1128 ? TD/TT: ? Coupon Manifest Clerk: Procedure Note Radiology, Radiologist, MD - 07/23/[address] [place] [address] Ultrasound Report Signed Patient: FERNANDA CLIFTONMR#: [id number] : 1995Acct:[id number] Age/Sex: 27 / FADM Date: 07/23/23 Loc: SURGOUT Attending Dr: Mohinder Mendoza D.O. Ordering Physician: Mohinder Mendoza D.O. Date of Service: 07/23/23 Procedure(s): US pelvis Accession Number(s): [id number] cc: Mohinder Mendoza D.O.; Physician,Non-Staff MMaricruzDMaricruz [place] [id number] Patient Name: FERNANDA CLIFTON MRN: [id number] date: 1995 Sex: F Assigned Patient Location: [facility] Current Patient Location: [facility] Accession/Order Number: [id number] Exam Date: 07/23/2023 10:37 Report Date: 07/23/2023 11:28 At the request of: MOHINDER MENDOZA Procedure: US pelvis PROCEDURE: US pelvis, 07/23/2023 10:37 AM EST CLINICAL INDICATIONS: Evaluation for retained products of conception. COMPARISON: None TECHNIQUE: Transabdominal pelvic sonogram, grayscale assessment. FINDINGS: A single sagittal image of the uterus is presented. Endometrial echocomplex 0.8 cm. Color-flow assessment was not performed. Focal uterine abnormalityis not demonstrated. No free fluid seen. US/US pelvis IMPRESSION: 1. Limited evaluation demonstrates 0.8 cm endometrial echo complex without criteria for retained products of conception demonstrated. Electronically authenticated by: ALETHEA CRUZ Date: 07/23/2023 11:28 Dictated By: Alethea Cruz M.D. Signed By:07/23/23 1130 DD/ 1128 TD/TT: Coupon Manifest Clerk: Authorizing ProviderResult TypeResult StatusCorey Kelly DOCLINISYNC IMAGINGFinal Result documented in this encounter Visit Diagnoses Not on filedocumented in this encounter Care Teams Team MemberRelationshipSpecialtyStart DateEnd Date Asad Owens MD [address] [facility] [place] [address] PCP - GeneralFamily Mkcibsdm75/7/23documented as of this encounter
--- OUTSIDE RECORDS SUMMARY | 2025-06-12 19:39 | XMS_ITS | Clinical Summary ---
Author Organization [facility] Address [address] [place] [address] Care Team Providers Care Dental Surgeon Name Role Phone Asad Owens DO Primary Care Provider Marlys West CLIENT SERVICES VICE PRESIDENT Unavailable Connie Peterson CLIENT SERVICES VICE PRESIDENT Unavailable Joanna SuhC Unavailable [phone] Su Gotti CLIENT SERVICES VICE PRESIDENT Unavailable [phone] Siobhan Ortega MD Unavailable Allergies No known active allergies Medications MedicationSigDispense QuantityRefillsLast FilledStart DateEnd DateStatus hydrOXYzine (VISTARIL) 25 MG capsule Indications:Interstitial cystitisTake one capsule (25 mg) by mouth nightly. . 30 capsule 5Active Active Problems ProblemNoted DateDiagnosed DateS/P robot-assisted surgical zqejdwtvq58/11/2025 Assessment & Plan (09/12/2024 12:42 PM EST): Miladis Bunch Semaj is a 28 y.o. female with a history of anemia, IC, endo and IBS who is POD#0 from RA EOE - HD stable; recent Hgb 15.1 > EBL 25cc - Pain: ERAS - MIVF/PO fluids: MIVF at 40cc/hr - GI: ADAT - :voiding spontaneously - ID: s/p pre-op antibiotic - Resp: Incentive spirometry use - DVT Prophylaxis: SCDs and early ambulation - Dispo: Routine post-op care On weekdays before 4:30pm, please page the author of this note. After 4:30pm or on weekends, pleasepage *1817 Migraine wdgcexxk50/20/2498Tyjcbt94/20/2025Pelvic pain in pzzwwa7408/17/2024Pain of left lower aogtfeyqz39/06/2024History of multiple nqjlcgbyhkiw06/22/2023 Assessment & Plan (08/21/2024 12:34 PM EST): Patient counseled on habitual miscarriage causes. She states that her primary [employer] thoroughly investigated this. Discussed checking fasting insulin and glucose for insulin resistance diagnosis. Advised on the increased risk of missed AB due to insulin resistance. Advised on reviewing labs performed by her primary [employer]. Patient was advised to send the lab results through [facility]. Discussed performing a hysteroscopy D&C for evaluation of uterine cavity. She states that her primary [employer] diagnosed her with a luteal phase deficit and recommended progesterone in early part of the once she identified that she had conceived. She has not conceived since she was given this advice. Nipple jrzryjquv02/10/7434Qirrlsomqszonyj99/10/2023Vitamin D deficiency 10/08/20221974Vxtlou10/09/2023ilbert's euqhtcud29/09/2023Myofascial muscle pain 04/02/2022bnormal finding on zygwvxljfmu20/14/2021ody mass index (BMI) of 25.0 to 29.9010/13/2020elvic congestion jmilgxja38/14/2021ischarge from breast 10/13/2020Mass of bslpxm7710/13/20205742Lhvovgnt38/18/2021Interstitial cystitis 08/19/2020 Overview (10/13/2020): 09/26/2020: ROBOTIC ASSISTED LAPAROSCOPIC EXCISION OF ENDOMETRIOSIS, CHROMOPERTUBATION, LEFT OVARIAN CYSTECTOMY, CYSTOSCOPY WITH HYDRODISTENTION Findings: Normal-appearing upper abdomen, diaphragm, liver, gallbladder and stomach. 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 Left ovarian follicular cyst. Om ental adhesions to the anterior abdominal wall. Stage [...] vascularity with Hunner's lesions reflecting interstitial cystitis. 10/09/2020: Pt presents for postoperative evaluation. She states she is still having bladder issues, experiencing urinary frequency. She states she feels uncomfortable in her own skin, with crying, does not feel like herself. She reports she is also feeling fatigued. She states she has not had the left-sided ovarian pain since her surgery. Assessment & Plan (10/13/2020 7:55 PM EDT): ?? Patient advised on symptomology of chronic bladder pain syndrome. ?? Advised on dietary and lifestyle changes. ?? Advised on use of Elmiron. Advised on risks, benefits and alternatives. ?? Advised on the use of Amitriptyline and hydroxyzine. ?? Advised on outpatient bladder instillations and intra-operative hydro-distention. Febrile rzlsepedts76/18/2021Irritable bowel /18/2021Menorrhagia 08/19/2020erous otitis media08/19/20202782Mnjwclw87/18/2021llergic rhinitis 08/19/2020ndometriosis determined by juqmksmqlyg33/13/2021 Overview (08/21/2024): >>OVERVIEW FOR CHRONIC PELVIC PAIN IN FEMALE WRITTEN ON 10/13/2020 7:51 PM BY SIOBHAN ORTEGA MD 08/14/2020: Pt presents to discuss hx of ovarian cyst rupture. She states she keeps having issues with ruptured ovarian cysts. She notes she is not one who likes to take medicine. She has tried control pills in the past but did not like the side effects (depression). She states when her cyst ruptures, she will have clear fluid with copious amounts discharge. She notes discharge reminds her of amniotic fluid. She [...] reports she had a laparoscopy procedure in [id number]. [place]otes family hx (mom and maternal grandma) of endometriosis. 09/25/2020: Pt presents for preoperative evaluation. She is scheduled for: ROBOTIC ASSISTED LAPAROSCOPIC EXCISION OF ENDOMETRIOSIS, CHROMOPERTUBATION, CYSTOSCOPY POSSIBLE HYDRODISTENTION, POSSIBLE IUD INSERTION ERAS PROTOCOL on 09/26 at [facility]. 09/26/2020: ROBOTIC ASSISTED LAPAROSCOPIC EXCISION OF ENDOMETRIOSIS, CHROMOPERTUBATION, LEFT OVARIAN CYSTECTOMY, CYSTOSCOPY WITH HYDRODISTENTION Findings: Normal-appearing upper abdomen, diaphragm, liver, gallbladder and stomach. 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 Left ovarian follicular cyst. Om ental adhesions to the anterior abdominal wall. Stage [...] vascularity with Hunner's lesions reflecting interstitial cystitis. 10/09/2020: Pt presents for postoperative evaluation. She states she is still having bladder issues, experiencing urinary frequency. She states she feels uncomfortable in her own skin, with crying, does not feel like herself. She reports she is also feeling fatigued. She states she has not had the left-sided ovarian pain since her surgery. Assessment & Plan (09/19/2024 8:53 AM EST): Pt extensively counseled on medical vs surgical options. Medical treatment options for endometriosis including pain medication (especially medication that reduces inflammation such as non-steroidal anti-inflammatory drugs including ibuprofen and naproxen), hormonal contraception treatment (including oral control pills, intrauterine contraceptives or the contraceptive vaginal ring), progestins (synthetic progesterone), and GnRH agonists/antagonist (medication that causes a temporary menopause-like condition, including Orilissa and Lupron). Advised of the non-invasive nature of these treatments as well as side effects and long-term use. Discussed switching ibuprofen to Naprosyn or Aleve for continued pain management, reduction of chronic inflammation and help with fatigue symptoms. Chronic pain management discussed. Recommended seeking therapy (CBT and/or EMDR) to discuss coping mechanisms for her chronic pain issues. She was counseled that chronic pelvic pain can lead to anxiety and fears of pain amplify her pain experience. Discussed the need for counseling to deal with chronic pain as well as any depression and anxiety. Pt advised to have a transabdominal/transvaginal ultrasound and/or pelvic MRI to further investigate current symptoms, although pelvic US may not diagnose endometriosis, it can r/o other causes of pelvic pain as listed above. Discussed importance of pelvic floor therapy pre-op to see if surgery can be avoided and pelvic floor therapy post-op to rehab the pelvic floor muscles. Ambulatory referral given. Discussed the importance of healthy diet and aim for a minimum of 4 hours of weekly exercise to help better manage her symptoms. Patient also advised on symptomology of interstitial cystitis. Advised on dietary and lifestyle changes, bladder triggers, use of Elmiron, outpatient bladder instillations and intraoperative cystoscopy with hydrodistention. Patient also advised on the risks, benefits and alternatives of laparoscopy with diagnosis and treatment of endometrial implants and scar tissue as needed. Advised of the risk of not discovering endometriosis. Pt also advised on robotic assisted laparoscopic excision of endometriosis, lysis of adhesions. Discussed risk of bowel, bladder, ureteral injuries, hemorrhage and vascular injuries. Advised on complications necessitating further operation including laparotomy and/or repair of injured viscera depending on anatomy, adhesions, bleeding, and progression of the procedure as well as further hospitalization needing time off from work and added expense. Possibility that no cause of pain may be found. Discussed risk of infection, hemorrhage, and blood clots. Advised on risk of recurrence of endometriosis. Pt advised on use of Interceed to reduce adhesion formation. Pt given the opportunity to ask questions which were answered as completely as possible. Patient counseled on the performance of chromopertubation as a way to evaluate whether the fallopian tubes are affected by endometriosis. She has conceived easily in the past so it would not be in order to evaluate her fertility standing. Chromopertubation is purely to determine impact of endometriosis on her fallopian tubes. Advised on enhanced recovery after surgery protocol (ERAS Protocol) and multimodal pain management for postoperative pain control. After lengthy discussion, the patient would like to move forward with ROBOTIC ASSISTED LAPAROSCOPICEXCISION OF ENDOMETRIOSIS, CHROMOPERTUBATION, CYSTOSCOPY POSSIBLE HYDRODISTENTION, HYSTEROSCOPY DILATION AND CURETTAGE WITH MYOSURE and will be scheduled accordingly. I personally spent a total of 40 minutes on this encounter, reviewing the charts including prior visits and studies associated with her diagnosis, including face to face time spent with patient, and writing notes. Assessment & Plan (08/21/2024 12:26 PM EST): >>ASSESSMENT AND PLAN FOR CHRONIC PELVIC PAIN IN FEMALE WRITTEN ON 08/14/2020 4:17 PM BY SILVERIO BOYER MA Pelvic exam performed: Bladder tenderness. Uterine tenderness. Pt extensively counseled on treatment options for endometriosis. Discussed medical vs surgical options. Pt advised on use of control pills, Lupron and Orilissa. Advised on side effects and care home use. Pt also advised on robotic assisted [...] be updated and discussed at that time. Assessment & Plan (08/21/2024 12:26 PM EST): >>ASSESSMENT AND PLAN FOR CHRONIC PELVIC PAIN IN FEMALE WRITTEN ON 09/25/2020 11:00 AM BY SILVERIO BOYER MA Pt presents for pre-op evaluation. Preoperative instructions and postoperative prescriptions given to the patient. Pt is without any hematologic, endocrine, pulmonary or cardiac co-morbidities. Pt denies any h/o post op N/V, difficult intubation, or malignant hyperthermia. Current medications reviewed and pt. counseled on meds to continue and hold prior to surgery. Surgical risk factors reviewed and discussed. COVID-19 surgical protocols discussed in full detail. Pt expresses verbal understanding and surgery consent forms signed. Pt is granted medical/surgical clearance. All of the patient's questions have been answered during today's visit. Assessment & Plan (08/21/2024 12:26 PM EST): >>ASSESSMENT AND PLAN FOR CHRONIC PELVIC PAIN IN FEMALE WRITTEN ON 10/13/2020 7:58 PM BY SIOBHAN ORTEGA MD Pt advised on surgical findings. Discussed relevant [...] Copy of surgical images given to pt. Resolved Problems ProblemNoted DateDiagnosed DateResolved DateIrregular menstrual cycle08/19/2020 08/21/2024 Family History Medical HistoryRelationCommentsNo Known ProblemsFatherDiabetesMaternal GrandmotherEndometriosisMaternal GrandmotherCrohn's diseaseMaternal UncleBreast cancerMotherCancerMotherDiabetesMotherEndometriosisMotherOvarian cancerSister RelationStatusCommentsFatherAliveMaternal GrandmotherMaternal UncleDeceased MotherAliveSister Social History Tobacco UseTypesPacks/DayYears UsedDateSmoking Tobacco: NeverSmokeless Tobacco: NeverAlcohol UseStandard Drinks/WeekCommentsYes0 (1 standard drink = 0.6 oz pure alcohol)Occasional drinks. Not very often.AUDIT-CAnswerDate RecordedQ1: How often do you have a drink containing alcohol?Never09/23/2020verage Number of DrinksNot on file09/23/2020Frequency of Binge DrinkingNot on file09/23/2020 CommentsNoSex and Gender InformationValueDate RecordedSex Assigned at BirthNot on fileLegal JmmMbrars08/01/2019 8:56 AM EDTGender IdentityFemale 09/25/2020 11:23 AM ESTSexual TchrksgcczvNnwvemor25/24/2021 11:23 AM EST OccupationIndustryJob Start DateJob End DateHomemakerNot on fileNot on fileNot on file Last Filed Vital Signs Vital SignReadingTime TakenCommentsBlood Veybeteo470/70009/28/2024 12:06 PM EST Kkzze016109/28/2024 12:06 PM EUDGialtyacunw34.8 ??C (98.2 ??F)09/12/2024 2:30 PM ESTRespiratory Iwba103709/12/2024 2:30 PM ESTOxygen Gelobgvozj635%09/12/2024 2:30 PM ESTInhaled Oxygen Concentration--Fdsgyi82.1 kg (159 lb)09/28/2024 12:06 PM AQUFmkdlb231 cm (5' 3 )09/28/2024 12:06 PM ESTBody Mass Index28.17009/28/2024 12:06 PM EST Plan of Treatment Health MaintenanceDue DateLast DoneCommentsMMR Vaccines (1 of 1 - Standard series)1994Depression Screening/Follow-Up (PHQ-2/9)2005Varicella Vaccines (1 of 2 - 13+ 2-dose series)2006HIV Phfylpatp05/28/2009Hepatitis C Ooxotjcex34/28/2012Hepatitis B Vaccines (1 of 3 - 19+ 3-dose series)2012 HPV Vaccines (1 - 3-dose SCDM series)2020Wellness Visit04/02/2023 2COVID-19 Vaccine (1 - season)2025Influenza Vaccine (#1) 2025Pap SmearTetanus/Diphtheria/Pertussis (2 - Td or Tdap)Cervical Cancer Cllkfbmqi96/01/2027HPV/Kpwngr8704/02/2027 04/02/2022Zoster Vaccines (1 of 2)4RSV Vaccines (1 - 1-dose 75+ series) 2068HIB VaccinesAged OutNo longer eligible based on patient's age to complete this topicHepatitis A VaccinesAged OutNo longer eligible based on patient's age to complete this topicIPV VaccinesAged OutNo longer eligible based on patient's age to complete this topicMeningococcal ACWY VaccineAged OutNo longer eligible based on patient's age to complete this topicMeningococcal B VaccineAged OutNo longer eligible based on patient's age to complete this topic Pneumococcal VaccineAged OutNo longer eligible based on patient's age to complete this topicRotavirus VaccinesAged OutNo longer eligible based on patient's age to complete this topic Medical Devices ImplantedTypeAreaManufacturerDevice IdentifierShelf Expiration DateModel / Serial / LotCath 2.5in Expansion On-Q Silversoaker - [id number] Implanted:Qty: 2 on 09/26/2020 by Siobhan Ortega MD at [facility] - ImplantN/A: PelvisAVANOS [id number] / / [id number] 5in Expansion On-Q Silversoaker - [id number] Implanted:Qty: 1 on 09/12/2024 by Siobhan Ortega MD at [facility] - ImplantAVANOS [id number] / / [id number] 5in Expansion On-Q Silversoaker - [id number] Implanted:Qty: 1 on 09/12/[facility] Im[facility]OS [id number] / / [id number] 4ml Vh S/D Tisseel - [id number] Implanted:Qty: 1 on 09/26/2020 [facility] PelvisBAXTER [id number] / [id number] / Pump 600ml Dual On-Q Qaxgex-R-Avve - [id number] Implanted:Qty: 1 on 09/26/2020 [facility] PelvisAVANOS [id number] / / [id number] 3 X 4in Adhesion Tc 7 Interceed - [id number] Implanted:Qty: 1 on 09/26/2020 [facility]: [id number] / / [id number] 5 X 6in Adhesion Tc 7 Interceed - [id number] Implanted:Qty: 1 on 09/12/2024 [id number] / / [id number] 600ml Dual On-Q Zxoqvi-D-Taly - [id number] Implanted:Qty: 1 on 09/12/2024 [facility]: AbdomenAVANOS [id number] / [id number] / Procedures Procedure NamePriorityDate/TimeAssociated DiagnosisCommentsTHINPREP PAP SMEAR Qsukavk7604/02/2022 11:07 AM EDT Screening for malignant neoplasm of cervix REFLEX ONLY -- HIGH RISK HPV WITH GENOTYPE 16,62Rxcctut31/01/2022 11:07 AM EDT Screening for malignant neoplasm of cervix from Last 3 Months or Most Recently Relevant to Health Maintenance Results * High Risk HPV with Genotype 16,18 (04/02/2022 11:07 AM EDT)ComponentValueRef RangeTest MethodAnalysis TimePerformed AtPathologist SignatureHPV 16Negative Nlftwtfc51/07/2022 6:49 AM [facility] 18Negative Lvtsiimv46/07/2022 6:49 AM [facility], Other HR HxjdnDeuqgnvhMldwipym93/07/2022 6:49 AM [facility] Specimen (Source)Anatomical Location / LateralityCollection Method / Volume Collection TimeReceived TimePap, Liquid BasedENDOCERVICAL STRUCTURE / Unknown 04/02/2022 11:07 AM EDT04/03/2022 4:28 PM EDT Narrative [facility] - 04/08/2022 6:49 AM EDT Assay performed using Keisha Cristiano 4800 system utilizing Real-Time PCR to amplify target HPV DNA. This system specifically identifies HPV16 and HPV18 while concurrently detecting the other twelve high risk types (31,33,35,39,45,51,52,56,58,59,66,68). Authorizing ProviderResult TypeResult StatusLaura Venancio Suh PA-CBODY FLUIDS AND STOOLS ORDERABLESFinal ResultPerforming OrganizationAddress City/State/ZIP CodePhone Number [facility] [address] [place] [address] * (ABNORMAL) Thinprep Pap Smear (04/02/2022 11:07 AM EDT)ComponentValueRef Range Test MethodAnalysis TimePerformed AtPathologist SignatureCase Report Gynecologic Cytology Report ? Case: [id number] ? Authorizing Provider: ??Joanna Suh, ?? Collected: ? 04/02/2022 11:07 AM ? PA-C ? Ordering Location: ? [facility] Received: ?04/03/2022 04:28 PM ? Gynecology ? First Screen: ?Daren Mix ? Pathologist: ? Jody Hardy MD ? Specimen: ?THINPREP PAP SMEAR, Cervix / Endocervix ? 04/20/2022 1:52 PM [facility] Adequacy Satisfactory for evaluation; endocervical/transformation zone component present 04/20/2022 1:52 PM [facility] LABInterpretationAtypical squamous cells of undetermined significance(A)04/20/2022 1:52 PM [facility] at 1352 EDTEducational NoteThe Pap smear is a screening test for the detection of cervical cancer and its precursor lesions. ??False positive and false negative results can occur. The test should be performed at regular intervals, and positive results should be confirmed before definitive therapy. Additional testing methods may be helpful in detecting abnormalities or in clinical management. The specimen has been analyzed by the ThinPrep imaging system, an automated imaging and review system which assists the laboratory in evaluating cells on ThinPrep tests. ??Following automated imagingselected bates from every slide are reviewed by a icicle machine operator. Specimen processing and Primary Screening performed at: [address] [id number] 1:52 PM EDT [facility] LABHPV ResultsHPV 16 : Negative HPV 18 : Negative HPV, Other HR Types : Negative Assay performed using Keisha Cristiano 4800 system utilizing Real-Time PCR to amplify target HPV DNA. This system specifically identifies HPV16 and HPV18 while concurrently detecting the other twelve highrisk types (31,33,35,39,45,51,52,56,58,59,66,68). These HPV results have been electronically added to this report as an aid for patient management. HPV testing performed at: [address] [id number] 04/20/2022 1:52 PM [facility] VKGUJW21/23/ 1:52 PM [facility] LABSpecimen (Source)Anatomical Location / LateralityCollection Method / VolumeCollection TimeReceived TimePap, Liquid BasedENDOCERVICAL STRUCTURE / Qxeopvl1104/02/2022 11:07 AM EDT04/03/2022 4:28 PM EDT Narrative Authorizing ProviderResult TypeResult StatusLaura Venancio Suh PA-C PATHOLOGY/CYTOLOGY ORDERABLESFinal ResultPerforming OrganizationAddress City/State/ZIP CodePhone Number [facility] [address] [place] [phone] from Last 3 Months or Most Recently Relevant to Health Maintenance Insurance Advance Directives For more information, please contact: [phone] * Full Code (Latest Code Status on File) Date ActivatedDate InactivatedComments09/12/2024 6:44 AM09/12/2024 11:13 AM * Full Code Date ActivatedDate InactivatedComments09/26/2020 1:59 PM2 10:04 PM * Full Code Date ActivatedDate InactivatedComments09/26/2020 9:00 AM09/26/2020 1:59 PM Care Teams Team MemberRelationshipSpecialtyStart DateEnd Date Asad Owens DO [address] [place] [id number] PCP - GeneralFamily Bpxvtfue55/3/20 Marlys West CNP [address] [place] [address] Obstetrics/Gynecology10/22/22 Connie Peterson CNP [address] [place] [address] Nurse PractitionerObstetrics/Bdwimqpaml40/20/23 Joanna Suh PA-C [address] [place] [address] Physician Assistant09/28/23 Su Gotti CNP [address] [place] [address] Nurse PractitionerNurse Otbxmbmktwud93/18/24 Siobhan Ortega MD [address] [place] [address] Consulting PhysicianObstetrics/Gynecology09/01/24
--- OUTSIDE RECORDS SUMMARY | 2025-06-12 19:39 | XMS_ITS | CCD ---
Author Organization [facility] Care Team Providers Care Drupal Php Developer Name Role Phone Amanda Martinez Unavailable Unavailable Family Physician Unavailable Unavailable Nikki vailable Family Physician Unavailable Unavailable Nikki vailable Thania Owens Primary Care Provider [phone] THANIA OWENS Primary Care Unavailable SOMASUNDARAM, SHIVKAMINI Referring Unavail able SOMASUNDARAM, SHIVKAMINI Attending Unavail able SOMASUNDARAM, SHIVKAMINI Admitting Unavail able Angela HARVEY Primary Care Physician Thania Owens DO Primary Care Provider Thania Owens DO Primary Care Provider Maryann Rashid Primary Care Physician [phone] Unavailable Primary Care Provider Unavailabl MILADIS Brown Referring Unavailable MILADIS BUTLER Referring Unavailable MILADIS BUTLER Attending Unavailable RG TIDWELL Referring Unavailable MILADIS BUTLER Attending Unavailable MARIE SO Referring Unavailable Marlys West CNP Unavailable oCnnie Peterson CNP Unavailable [phone] Thania OWENS Primary Care Physician Ahsan MENDOZA R Attending Unavailable KELLY, Ahsan R Admitting Unavailable KELLY, Ahsan R Attending Unavailable KELLY, Ahsan R Admitting Unavailable Jovon Strickland Admitting Unavailable Jovon Strickland Attending Unavailable Jovon Strickland Attending Unavailable KELLY, Ahsan R Admitting Unavailable KELLY, Ahsan R Attending Unavailable KELLY, Ahsan R Admitting Unavailable KELLY, Ahsan R Attending Unavailable Son Reyes Attending Unavailable Eric, Son Attending Unavailable Louis Santa Attending Unavailable Jovon Strickland Admitting Unavailable Marco A, Jovon MMaricruz Attending Unavailable KELLY, Ahsan R Attending Unavailable KELLY, Ahsan R Admitting Unavailable KELLY, Ahsan R Attending Unavailable KELLY, Ahsan R Admitting Unavailable KELLY, Ahsan R Attending Unavailable KELLY, Ahsan R Admitting Unavailable KELLY, Ahsan R Attending Unavailable KELLY, Ahsan R Admitting Unavailable Marco AJovon Attending Unavailable Jovon Strickland Admitting Unavailable NONE, XXXX Primary Care Physician Unavailab DO Ephraim Mustafa Attending Unavailable DO Ephraim Botello Attending Unavailable Joanna Suh PA-C Unavailable Su Gotti CNP Unavailable Darlin Ortega MD Unavailable PAUL MCALLISTER Attending Unavailable THANIA OWENS. Primary Care Unavailable SU GOTTI Attending Unavailable THANIA OWENS. Primary Care Unavailable THANIA OWENS. Primary Care Unavailable SOMASUNDARAM, SHIVKAMINI Attending Unavail able SOMASUNDARAM, SHIVKAMINI Attending Unavail able THANIA OWENS. Primary Care Unavailable THANIA OWENS. Primary Care Unavailable DAVONTE JI Attending Unavailable SOMASUNDARAM, SHIVKAMINI Admitting Unavail able SOMASUNDARAM, SHIVKAMINI Attending Unavail able SOMASUNDARAM, SHIVKAMINI Admitting Unavail able THANIA OWENS. Primary Care Unavailable Jose L Hartley Attending Unavailable Louis Santa Attending Unavailable Dia Madsen Primary Care Physician Dia Madsen Referring Unavailable Miladis Mayberry Attending Unavailable Dia Madsen Attending Unavailable Dia Madsen Attending Unavailable Dia Madsen Admitting Unavailable Dia Madsen Attending Unavailable Louis Santa Attending Unavailable Miladis Mayberry Attending Unavailable Louis Santa Attending Unavailable Shawanda, Miladis Attending Unavailable Shawanda, Miladis Admitting Unavailable Shawanda, Miladis Attending Unavailable Shawanda, Miladis Admitting Unavailable Shawanda, Miladis Attending Unavailable Lue, Sumaya M. Referring Unavailable Lue, Sumaya M. Admitting Unavailable Lue, Sumaya M. Attending Unavailable Lue, Sumaya M. Admitting Unavailable Lue, Sumaya M. Attending Unavailable Lue, Sumaya M. Referring Unavailable Lue, Sumaya M. Attending Unavailable Thania Owens DO Primary Care Provider [phone] Brown DO, Jurgen M Emergency Provider [phone] Brown DO, Jurgen M Attending Provider AHSAN MENDOZA Attending Unavailable Thania Owens MD Primary Care Provider Brown, Jurgen M Attending Unavailable Thania Owens Primary Care Unavailable Brown, Jurgen M Admitting Unavailable Brown, Jurgen M Attending Unavailable Thania Owens Primary Care Unavailable Brown, Jurgen M Admitting Unavailable KELLY, Ahsan R Admitting Unavailable KELLY, Ahsan R Attending Unavailable BROWN, JURGEN Attending Unavailable BROWN, JURGEN Admitting Unavailable KELLY, Ahsan R Attending Unavailable KELLY, Ahsan R Admitting Unavailable BROWN, JURGEN Attending Unavailable BROWN, JURGEN Admitting Unavailable Lue, Sumaya M. Admitting Unavailable Lue, Sumaya M. Attending Unavailable Lue, Sumaya M. Referring Unavailable Lue, Sumaya M. Attending Unavailable Lue, Sumaya M. Admitting Unavailable Lue, Sumaya M. Attending Unavailable Lue, Sumaya M. Referring Unavailable Allergies Allergy ClassificationReported Allergen(s)Allergy TypeDate of OnsetReaction(s) Facility (20 sources)Ibuprofen; Translations: [IBUPROFEN]Drug [id number] (See Comments)[facility] (20 sources)Sulfamethoxazole / Trimethoprim; Translations: [SULFAMETHOXAZOLE-TRIMETHOPRIM]Drug Bzohfpv86-60-2819RoxdvUacuBfzwmm (13 sources)Ibuprofen; Translations: [Motrin][facility] ([facility] sources)Sulfamethoxazole / Trimethoprim; Translations: [Bactrim]Drug Allergy [facility] (13 sources)Sulfamethoxazole / Trimethoprim; Translations: [Bactrim DS][facility] (13 sources)No Known Medication Allergies; Translations: [No Known Medication Allergies]Propensity to adverse reactions (disorder)[facility] (3 sources)Sulfamethoxazole; Translations: [sulfamethoxazole]Drug Allergy 97-40-2349JvauGaeuaecvgPrem[facility] (3 sources)Trimethoprim; Translations: [trimethoprim]Drug Spbrycd01-07-1572HqzaMer[facility] Medications Current Medications MedicationDrug Class(es)DatesSig (Normalized)Sig (Original)albendazole 200 mg oral tablet (10 sources)AntihelminthicStart: 83-53-4859hwbf 2 tablets by mouth once at mealtimealbendazole 200 mg oral tablet 400 mg = 2 tab(s), Oral, Once, with food, # 2 tab(s), Refills(s) 0, Pharmacy: [facility]/pharmacy #[id number], 160, cm, 04/17/24 18:27:00 EDT, Height/Length Dosing, 64, kg, 04/17/2418:27:00 EDT, Weight Dosing Start Date: 04/17/24 Status: Ordered Quantity: 2.0 Unit: tab(s) Repeat number: 1 Indications: Helminthiasis, unspecified; Acute bronchitis, unspecified;200 actuat albuterol 0.09 mg/actuat dry powder inhaler (3 sources)beta2-Adrenergic AgonistStart: 04-17-2024 End: 72-42-9839mivr 2 puff(s) by inhalation every four hours for wheezing albuterol 90 mcg/inh inhalation powder 2 puff(s), Inhalation, q4hr for wheezing or SOB for 7 day(s), 8 gm, Refill(s) 11, [facility]/pharmacy #[id number], 160, cm, 04/17/24 18:27:00 EDT, Height/Length Dosing, 64, kg, 04/17/24 18:27:00 EDT, Weight Dosing Start Date: 04/17/24 Stop Date: 07/10/24 Status: Orderedbenzonatate 100 mg oral capsule (3 sources)Non-narcotic AntitussiveStart: 04-17-2024 End: 70-35-7913mxdv 1 capsule by mouth three times dailyTessalon 100 mg Cap 100 mg = 1 cap(s), Oral, TID, X 7 day(s), # 21 cap(s), Refills(s) 0, Pharmacy: [facility]/pharmacy #[id number], 160, cm, 04/17/24 18:27:00 EDT, Height/Length Dosing, 64, kg, 04/17/24 18:27:00 EDT, Weight Dosing Start Date: 04/17/24 Stop Date: 04/24/24 Status: Orderedbetamethasone 0.5 mg/ml / clotrimazole 10 mg/ml topical cream (3 sources)Azole Antifungal, CorticosteroidStart: 08-16-2020 End: 14-99-2678rtkxkstahvco-betamethasone (Lotrisone) cream Apply to affected area 2 times daily . 15 g 0 08/21/2020 09/17/2020 Activecephalexin 500 mg oral capsule (4 sources)Cephalosporin AntibacterialStart: 82-20-8520eemy 1 capsule by mouth twice dailyStart: 01-01-2025 End: 49-35-9798ubmi 1 capsule by mouth every twelve hoursKeflex 500 mg Cap 500 mg = 1 cap(s), Oral, q12hr, X 7 day(s), # 14 cap(s), Refills(s) 0, [id number] 162, cm, 12/29/24 13:33:00 EDT, Height/Length Dosing, 73.3, kg, 12/29/24 13:33:00 EDT, Weight Dosing Start Date: 01/01/25 Stop Date: 01/08/25 Status: Ordered Quantity: 14.0 Unit: cap(s) Repeat number: 1Start: 10-09-2024 End: 71-96-9751jeon 1 capsule by mouth twice dailycephALEXin (KEFLEX) 500 MG capsule Indications: Acute cystitis without hematuria Take 1 (one) capsule (500 mg total) by mouth 2 (two) times a day for 7 days . 14 capsule 10/09/2024 10/16/2024 Activeciprofloxacin 500 mg oral tablet (2 sources)Quinolone AntimicrobialStart: 01-05-2025 End: 53-08-0003zgxy 1 tablet by mouth every twelve hoursCipro 500 mg Tab 500 mg = 1 tab(s), Oral, q12hr, X 7 day(s), # 14 tab(s), Refills(s) 0, [id number], cm, 01/05/25 13:23:00 EDT, Height/Length Dosing, 73.6, kg, 01/05/25 13:23:00EDT, Weight Dosing Start Date: 01/05/25 Stop Date: 01/12/25 Status: Ordered Quantity: 14.0 Unit: tab(s) Repeat number: 1 Indications: Urinary tract infection, site not specified;Start: 16-99-9413iepu 1 tablet by mouth twice dailyCipro 500 mg Tab 500 mg = 1 tab(s), Oral, BID, # 14 tab(s), Refills(s) 0, Pharmacy: [facility] #[id number], 160, cm, 01/03/25 17:40:00 EDT, Height/Length Dosing, 73.3, kg, 01/03/25 17:40:00 EDT, Weight Dosing Start Date: 01/03/25 Status: Ordered Quantity: 14.0 Unit: tab(s) Repeat number: 1docusate sodium 100 mg oral capsule (3 sources)Start: 07-15-2024 End: 06-84-3001wfla 1 capsule by mouth twice dailydocusate sodium 100 mg Cap 100 mg = 1 cap(s), Oral, BID, X 7 day(s), # 14 cap(s), Refills(s) 0, Pharmacy: [id number], 160, cm, 07/15/24 19:11:00 EST, Height/Length Dosing, 74.1, kg, 07/15/24 19:11:00 EST, Weight Dosing Start Date: 07/15/24 Stop Date: 07/22/24 Status: OrderedStart: 09-26-2020 End: 97-43-4428zsll 100 mg by mouth twice mg, Oral, 2 times daily, First dose on Mary 09/26/20 at 2100 Hold for loose stools DO NOT CRUSH OR CHEW.doxycycline monohydrate 100 mg oral capsule (3 sources)Tetracycline-class DrugStart: 04-17-2024 End: 45-82-0582rzmw 1 capsule by mouth twice dailydoxycycline monohydrate 100 mg oral capsule 100 mg = 1 cap(s), Oral, BID, X 7 day(s), # 14 cap(s), Refills(s) 0, Pharmacy: [facility]/pharmacy #[id number], 160, cm, 04/17/24 18:27:00 EDT, Height/Length Dosing, 64, kg, 04/17/24 18:27:00 EDT, Weight Dosing Start Date: 04/17/24 Stop Date: 04/24/24 Status: OrderedhydrOXYzine hydrochloride 25 mg oral tablet (5 sources)AntihistamineStart: 39-56-5336canx 1 tablet by mouth at bedtime hydrOXYzine hydrochloride 25 mg Tab 25 mg = 1 tab(s), Oral, Bedtime, # 30 tab(s), Refills(s) 11, [id number], cm, 02/08/25 11:05:00 EDT, Height/Length Dosing, 71.7, kg, 02/08/2511:05:00 EDT, Weight Dosing Start Date: 02/08/25 Status: Ordered Quantity: 30.0 Unit: tab(s) Repeat number: 12 Indications: Interstitial cystitis (chronic) without hematuria;Start: 09-28-2024 take 1 capsule by mouth once dailyhydrOXYzine (VISTARIL) 25 MG capsule Indications: Interstitial cystitis Take one capsule (25 mg) bymouth nightly. . 30 capsule 3 09/28/2024 ActiveStart: 10-09-2020 End: 28-90-5191rxbe 1 capsule by mouth once dailyhydrOXYzine (VISTARIL) 25 MG capsule Take 1 (one) capsule (25 mg total) by mouth nightly . 30 capsule 3 10/09/2020 02/06/2021 Activeiv contrast (will be provided with radiology test) (1 source)Start: 08-25-2022 End: 62-81-7196mh contrast (will be provided with radiology test) MRI Breast KAYA Inject, intravenously, once for 1dose. No IV access, insert saline lock prior to the beginning of sedation, infusion, injection of imaging exam. Discontinue saline lock post exam. If Pt has a central line or IVAD, may access for admi nistration according to line specific nursing protocol. Once exam is complete flush line and de-access according to line specific nursing protocol in the MR contrast administration guidelines link 1 Each 0 08/25/2022 08/26/2022 Active Comment on above:MRI Breast KAYA Inject, intravenously, once for 1 [...] link metroNIDAZOLE 500 mg oral tablet (2 sources)Nitroimidazole AntimicrobialStart: 04-03-2022 End: 43-08-5339yuhj 1 tablet by mouth twice daily at mealtimemetroNIDAZOLE (FLAGYL) 500 MG tablet Indications: BV (bacterial vaginosis) Take 1 (one) tablet (500mg total) by mouth 2 (two) times a day with meals for 7 days . 14 tablet 0 04/03/2022 04/10/2022 ActiveStart: 09-26-2020 End: 82-92-5560oqtsoNHRAZJLR (FLAGYL) IVPB 500 mg24 hr mirabegron 25 mg extended release oral tablet (1 source)beta3-Adrenergic AgonistStart: 36-90-1674zmme 1 tablet by mouth once dailymirabegron 25 mg oral tablet, extended release 25 mg = 1 tab(s), Oral, Daily, # 30 tab(s), Refills(s) 11, Pharmacy: [facility]/pharmacy #[id number], 162, cm, 02/08/25 11:05:00 EDT, Height/Length Dosing, 71.7, kg,02/08/25 11:05:00 EDT, Weight Dosing Start Date: 02/08/25 Status: Ordered Quantity: 30.0 Unit: tab(s) Repeat number: 12naproxen 500 mg oral tablet (20 sources)Nonsteroidal Anti-inflammatory DrugStart: 05-30-2021 End: 07-13-0642chvn 1 tablet by mouth twice daily as needed for painnaproxen 500 mg Tab 500 mg = 1 tab(s), Oral, BID, PRN Pain, X 7 day(s), # 14 tab(s), Refills(s) 0, Pharmacy: [facility]/pharmacy #[id number], 160, cm, 07/15/24 19:11:00 EST, Height/Length Dosing, 74.1, kg, 07/15/24 19:11:00 EST, Weight Dosing Start Date: 07/15/24 Stop Date: 07/22/24 Status: Orderednitrofurantoin, macrocrystals 25 mg / nitrofurantoin, monohydrate 75 mg oral capsule (2 sources)Nitrofuran AntibacterialStart: 10-02-2024 End: 57-92-5402lhad 1 capsule by mouth twice dailynitrofurantoin, macrocrystal- monohydrate, (Macrobid) 100 MG capsule Indications: Acute cystitis without hematuria Take 1 (one) capsule (100 mg total) by mouth 2 (two) times a day for 7 days . 14 capsule 10/02/2024 10/09/2024 Activeomeprazole 40 mg delayed release oral capsule (12 sources)Proton Pump InhibitorStart: 74-80-9396ivgs 1 capsule by mouth once dailyomeprazole 40 mg Cap-DR 40 mg = 1 cap(s), Oral, Daily, # 30 cap(s), Refills(s) 0, Pharmacy: [facility]/pharmacy #[id number], 160, cm, 10/02/22 14:06:00 EST, Height/Length Dosing, 63, kg, 10/02/22 14:06:00 EST, Weight Dosing Start Date: 10/02/22 Status: Orderedoxybutynin chloride 5 mg oral tablet (1 source)Cholinergic Muscarinic AntagonistStart: 74-22-5190qxpi 1 tablet by mouth three times daily as neededoxybutynin 5 mg Tab 5 mg = 1 tab(s), Oral, TID, PRN for urinary discomfort, # 30 tab(s), Refills(s)1, Pharmacy: [facility]/pharmacy #[id number], 162, cm, 03/27/25 5:54:00 EDT, Height/Length Dosing, 74, kg, 03/27/25 5:54:00 EDT, Weight Dosing Start Date: 04/03/25 Status: Ordered Quantity: 30.0 Unit: tab(s) Repeatnumber: 2 Indications: Interstitial cystitis (chronic) without hematuria;phenazopyridine hydrochloride 200 mg oral tablet (1 source)Start: 10-09-2024 End: 89-73-8821xyss 1 tablet by mouth three times dailyphenazopyridine (PYRIDIUM) 200 MG tablet Indications: Acute cystitis without hematuria Take 1 (one)tablet (200 mg total) by mouth 3 (three) times a day for 2 days . 6 tablet 10/09/2024 10/11/2024 Activepolyethylene glycol 3350 55883 mg powder for oral solution (7 sources)Osmotic LaxativeStart: 27-18-5071gnzfzkptfmjf glycol 3350 Oral Pwdr for Recon 17 gram, Oral, Daily, dissolve in water before taking,# 527 gram, Refills(s) 0, Pharmacy: [facility]/pharmacy #[id number], 160, cm, 07/15/24 19:11:00 EST, Height/Length Dosing, 74.1, kg, 07/15/24 19:11:00 EST, Weight Dosing Start Date: 07/15/24 Status: Ordered Quantity: 527.0 Unit: g Repeat number: 1predniSONE 20 mg oral tablet (3 sources)Start: 04-17-2024 End: 56-48-0938evhz 2 tablets by mouth once dailypredniSONE 20 mg Tab 40 mg = 2 tab(s), Oral, Daily, X 5 day(s), # 10 tab(s), Refills(s) 0, Pharmacy: [facility]/pharmacy #[id number], 160, cm, 04/17/24 18:27:00 EDT, Height/Length Dosing, 64, kg, 04/17/24 18:27:00 EDT, Weight Dosing Start Date: 04/17/24 Stop Date: 04/22/24 Status: OrderedProgesterone 200 MG suppository (2 sources)Start: 05-14-2025 End: 38-31-6623Jsftxkvoqjzj 200 MG suppository Indications: History of miscarriage Insert 200 mg into the vagina at bedtime Insert suppository vaginally every night at bedtime until 12 weeks gestation 30 suppository 3 05/14/2025 06/13/2025 Activeropivacaine in 0.9% sod chl/PF (ropivacaine,PF,-0.9 % sodchlor) 150 mg/30 mL (5 mg/mL) 0.5 % Syrg (1 source)Start: 06-18-2022 End: 78-39-7175qxinagqxufx in 0.9% sod chl/PF (ropivacaine,PF,-0.9 % sodchlor) 150 mg/30 mL (5 mg/mL) 0.5 % Syrg Indications: Interstitial cystitis 50 mg by instillation route once For bladder instillation for 1 dose . 10 mL 0 06/18/2022 06/18/2022 Activeropivacaine in 0.9% sod chl/PF (ROPivacaine,PF,-0.9 % sodchlor) 150 mg/30 mL (5 mg/mL) 0.5 % Syrg (1 source)Start: 10-09-2022 End: 46-67-0119yqycegognew in 0.9% sod chl/PF (ROPivacaine,PF,-0.9 % sodchlor) 150 mg/30 mL (5 mg/mL) 0.5 % Syrg Indications: Interstitial cystitis Inject 10 mL as directed once for 1 dose . 10 mL 0 10/09/2022 10/09/2022 ActiveZofran ODT 4 mg Tab-Dis (12 sources)Start: 68-99-7710jqmw 1 tablet by mouth three times dailyZofran ODT 4 mg Tab-Dis 4 mg = 1 tab(s), Oral, TID, # 15 tab(s), Refills(s) 0, Pharmacy: [facility]/pharmacy #[id number], 160, cm, 10/02/22 14:06:00 EST, Height/Length Dosing, 63, kg, 10/02/22 14:06:00 EST, Weight Dosing Start Date: 10/02/22 Status: Ordered Completed/Discontinued Medications MedicationDrug Class(es)DatesSig (Normalized)Sig (Original)100 ml acetaminophen 10 mg/ml injection (4 sources)Start: 09-26-2020 End: 37-08-1047wxeq 1000 mg intravenous route every twenty-four hours as needed 1,000 mg, Intravenous, at 400 mL/hr, Once as needed, if patient is not tolerating Oral Intake, Starting [facility] 09/26/20 at 2130, For 1 dose [] May give x1 dose 8 hours after initial dose if patient is not tolerating Oral Intake [] May Discontinue IV acetaminophen and initiate oral acetaminophen if patient tolerates Oral Intake [] Maximum dose of 4 grams in 24 hours Indication: Post-operative pain management Is patient able to take oral acetaminophen? No Start: 09-26-2020 End: 67-31-1369gaeq 1 dose by mouth every eight hours, then take 1 dose by mouth every twenty-four hours1,000 mg, Intravenous, at 400 mL/hr, Once, Mary 09/26/20 at 1400, For 1 dose [] First dose should be 4 hours after the pre-operative oral acetaminophen (TYLENOL) dose [] Post-op patient who isNPO or on Clear Liquid Diet [] May give additional dose in 8 hours if not tolerating Oral&a mp;nbsp;[] Discontinue IV acetaminophen and initiate oral acetaminophen when patient tolerates OralIntake [] Maximum dose of 4 grams in 24 hours Indication: Post-operative pain management Is patient able to take oral acetaminophen? NoStart: 09-26-2020 End: 90-33-4115ckby 1 tablet by mouth every six oulqg449 mg, Oral, Every 6 hours, First dose on Mary 09/26/20 at 1830 [] May start post op when patient is tolerating Oral Intake [] Do not give within 6 hours of last dose of IV acetaminophen (OFIRMEV). [] Maximum dose of 4 grams in 24 hours. acetaminophen 325 mg / oxyCODONE hydrochloride 5 mg oral tablet (5 sources)Opioid AgonistStart: 09-01-2024 End: 66-88-4920vmpc 1 tablet by mouth every six hours as needed for pain oxyCODONE-acetaminophen (Percocet) 5-325 mg per tablet Indications: Acute postoperative pain , Pelvic pain in female Take 1 (one) tablet by mouth every 6 (six) hours as needed for pain . 20 tablet 09/01/2024 10/04/2024 Discontinued (Therapy completed)Start: 09-25-2020 End: 36-75-3692cnyo 1 tablet by mouth every six hours as needed for pain oxyCODONE-acetaminophen (PERCOCET) 5-325 mg per tablet Indications: Post- operative pain , Pelvic pain in female Take 1 (one) tablet by mouth every 6 (six) hours as needed for post-op pain. . 20 tablet 0 09/25/2020 10/13/2020 Discontinued (Therapy completed)amitriptyline hydrochloride 10 mg oral tablet (3 sources)Tricyclic AntidepressantStart: 10-09-2020 End: 25-12-0624ahwz 1 tablet by mouth once dailyamitriptyline (ELAVIL) 10 MG tablet Take 1 (one) tablet (10 mg total) by mouth nightly . 30 tablet 3 10/09/2020 04/02/2022 Discontinued (Patient Discharge)calcium chloride 0.0014 meq/ml / potassium chloride 0.004 meq/ml / sodium chloride 0.103 meq/ml / sodium lactate 0.028 meq/ml injectable solution (3 sources)Start: 09-26-2020 End: 32-97-4935qnhg 75 mL intravenous route every hour, then take 600 mL intravenous route75 mL/hr, Intravenous, Continuous, Starting Mary 09/26/20 at 1445 Saline lock if tolerating greater than 600 mL oral intakeStart: 09-26-2020 End: 20-35-7322qyovikby ringers bolus 500 mLcelecoxib 100 mg oral capsule (1 source)Nonsteroidal Anti-inflammatory DrugStart: 09-26-2020 End: 87-16-9210uzjmmxpib (CELEBREX) capsule 400 mgStart: 09-26-2020 End: 68-03-6925dcaqnjeqh (CELEBREX) capsule 400 mgergocalciferol 1.25 mg oral capsule (1 source)Provitamin D2 CompoundStart: 45-75-1163vlcy 1 capsule by mouth every weekVitamin D 50,000 intl units (1.25 mg) oral capsule 50,000 International_Unit = 1 cap(s), Oral, qWeek, # 4 cap(s), Refills(s) 11, Pharm[facility]: [facility] #[id number], 160, cm, 11/27/20 10:43:00 EDT, Height/Length Dosing, 69.5, kg, 11/27/20 10:43:00 EDT, Weight Dosing Start Date: 12/04/20 Status: OrderedEthinyl Estradiol / Ferrous fumarate / Norethindrone (20 sources)EstrogenStart: 11-18-2022 End: 03-89-1713zdtd 1 tablet by mouth once dailyLo Loestrin Fe 1 MG-10 MCG / 10 MCG tablet TAKE ONE TAB BY MOUTH PER DAY . 11/18/2022 05/14/2025 Discontinued (Therapy completed)Start: 83-38-7864hnxy 1 tablet by mouth once dailyLo Loestrin Fe 1 MG-10 MCG / 10 MCG tablet TAKE ONE TAB BY MOUTH PER DAY . 11/18/2022 ActiveStart: 12-87-0940pvwh 1 tablet by mouth once dailyLo Loestrin Fe oral tablet TAKE ONE TAB BY MOUTH PER DAY . Start Date: 08/05/22 Status: OrderedStart: 07-02-2022 End: 06-30-3531sycw 1 tablet by mouth once dailynorethindrone-e.estradioL-iron (Lo Loestrin Fe) 1 mg-10 mcg (24)/10 mcg (2) Tab Take one tab by mouth per day . 90 tablet 3 07/02/2022 07/19/2024 DiscontinuedStart: 93-44-1699xwmf 1 tablet by mouth once dailynorethindrone-e.estradioL-iron (Lo Loestrin Fe) 1 mg-10 mcg (24)/10 mcg (2) Tab Take one tab by mouth per day . 90 tablet 3 07/02/2022 Eflouf53 ml fentaNYL 0.05 mg/ml injection (1 source)Opioid AgonistStart: 09-26-2020 End: mcg, Intravenous, Every 5 min PRN, Pain, Starting Mary 09/26/20 at 1307, For 4 doses, PACU (only) [] Do not give more than 100 mcg while in PACU.gabapentin 100 mg oral capsule (7 sources)Anti-epileptic AgentStart: 09-01-2024 End: 41-31-2670veca 1-3 capsules by mouth every eight hours as needed for pain gabapentin (NEURONTIN) 100 MG capsule Indications: Acute postoperative pain , Pelvic pain in femaleTake 1-3 capsules by mouth every 8 hours as needed for pain . 30 capsule 1 09/01/2024 10/04/2024 Discontinued (Therapy completed)Start: 09-26-2020 End: 72-14-5139lhelamvbje (NEURONTIN) capsule 100 mgStart: 47-13-3646eqdlrqlhak (NEURONTIN) capsule 600 mgStart: 09-25-2020 End: 13-65-3716wbri 1 capsule by mouth every eight hours as needed for pain gabapentin (NEURONTIN) 100 MG capsule Indications: Post-operative pain , Pelvic pain in female Takeone capsule by mouth every 8 hours as needed for post operative pain. . 30 capsule 0 09/25/2020 10/13/2020 Discontinued (Therapy completed)1 ml heparin sodium, porcine 20877 unt/ml injection (4 sources)Unfractionated Heparin, Anti-coagulantStart: 10-09-2022 End: 51-19-8577lwqgyez (porcine) injection 40,000 UnitsStart: 10-09-2022 End: 52-83-2748wzmyplj (porcine) injection 40,000 UnitsStart: 06-18-2022 End: 96-09-9071gnajtrb (porcine) injection 40,000 UnitsStart: 06-18-2022 End: 79-69-0789jhgomas (porcine) injection 40,000 Units0.5 ml HYDROmorphone hydrochloride 1 mg/ml prefilled syringe (1 source)Opioid AgonistStart: 09-26-2020 End: 33-27-0275mjwz 0.25-0.5 mg intravenous route every three hours as needed HYDROmorphone (DILAUDID) injection 0.25-0.5 mghyoscyamine sulfate 0.12 mg / methenamine 81.6 mg / methylene blue 10.8 mg / sodium phosphate, monobasic 40.8 mg oral tablet (8 sources)Oxidation-Reduction AgentStart: 11-18-2022 End: 15-83-6458eulj 1 tablet by mouth four times daily as neededmethen-sod phos- meth blue-hyos (Urogesic-Blue) 81.6-40.8-0.12 mg Tab Indications: Interstitial cystitis Take 1 tablet by mouth 4 (four) times a day as needed . 60 tablet 1 06/01/2023 08/21/2024 Discontinued (Patient's Request)Start: 12-33-3586nawg 1 tablet by mouth four times daily as neededmethen-sod phos-meth blue-hyos (Urogesic-Blue) 81.6-40.8-0.12 mg Tab Indications: Interstitial cystitis Take 1 tablet by mouth 4 (four) times a day as needed . 4 tablet 0 10/09/2022 Active ibuprofen 800 mg oral tablet (5 sources)Nonsteroidal Anti-inflammatory DrugStart: 09-01-2024 End: 92-32-7949ngsg 1 tablet by mouth every six hours as needed for pain ibuprofen (ADVIL,MOTRIN) 800 MG tablet Indications: Acute postoperative pain , Pelvic pain in female Take 1 (one) tablet (800 mg total) by mouth every 6 (six) hours as needed for pain . 30 tablet 1 09/01/2024 10/04/2024 Discontinued (Therapy completed)Start: 09-25-2020 End: 83-73-5342vcxr 1 tablet by mouth every eight hours as needed for pain ibuprofen (ADVIL,MOTRIN) 800 MG tablet Indications: Post-operative pain , Pelvic pain in female Take 1 (one) tablet (800 mg total) by mouth every 8 (eight) hours as needed for pain . 30 tablet 1 09/25/2020 10/13/2020 Discontinued (Therapy completed)naloxone (NARCAN) injection 0.1 mg (1 source)Start: 09-26-2020 End: 17-07-4221rxshkire (NARCAN) injection 0.1 mgondansetron (ZOFRAN-ODT) disintegrating tablet 4 mg (1 source)Start: 09-26-2020 End: 91-66-9905lcvu 1 tablet by mouth every six hours as neededondansetron (ZOFRAN-ODT) disintegrating tablet 4 mgoxyCODONE hydrochloride 5 mg oral tablet (1 source)Opioid AgonistStart: 09-26-2020 End: 75-48-7391fyxz 5-10 mg by mouth every four hours as needed5-10 mg, Oral, Every 4 hours PRN, moderate to severe pain, Starting [facility] 09/26/20 at 1359 [] Initiatewith 5 mg oral every 4 hours prn moderate to severe pain. [] For unrelieved pain, may repeat 5 mg oral dose within 60 minutes of initial dose. [] If pain is RELIEVED after repeat dose, change to 10 mg oral every 4 hours prn moderate to severe pain. [] If pain is UNrelieved after repeat dose, or patient requires dose reduction, call physician.2 ml prochlorperazine 5 mg/ml injection (1 source)PhenothiazineStart: 09-26-2020 End: 93-60-2855bshh 10 mg intravenous route every six hours as inktwq04 mg, Intravenous, Every 6 hours PRN, nausea, vomiting, Breakthrough Nausea, Starting Mary 09/26/20 at 1359 30 minutes after ondansetron (ZOFRAN) for breakthrough djakqg977 ml ropivacaine hydrochloride 2 mg/ml injection (1 source)Amide Local AnestheticStart: 09-26-2020 End: 64-18-5249bptsdhxwjgo (0.2%) (NAROPIN) infusion (PAIN BALL) 750 mL72 hr scopolamine 0.0139 mg/hr transdermal system (1 source)AnticholinergicStart: 09-26-2020 End: 48-24-0767ektjnzkuyhs (TRANSDERM-SCOP) 1 mg over 3 days patch 1 patch50 ml sodium bicarbonate 84 mg/ml prefilled syringe (4 sources)Start: 10-09-2022 End: 61-44-8179gcuofn bicarbonate 8.4 % (1 mEq/mL) injection 3 mEqStart: 10-09-2022 End: 08-05-6028byxeff bicarbonate 8.4 % (1 mEq/mL) injection 3 mEqStart: 06-18-2022 End: 18-13-6692rslccm bicarbonate 8.4 % (1 mEq/mL) injection 3 mEqStart: 06-18-2022 End: 44-47-5210kgoxfc bicarbonate 8.4 % (1 mEq/mL) injection 3 mEqtriamcinolone acetonide 10 mg/ml injectable suspension (4 sources)CorticosteroidStart: 10-09-2022 End: 64-20-3001mfbubslljgzyz acetonide (KENALOG) injection 25 mgStart: 10-09-2022 End: 57-55-3417zxzxhpigaeubn acetonide (KENALOG) injection 25 mgStart: 06-18-2022 End: 04-76-8262yoxrhcahajkvj acetonide (KENALOG) injection 25 mgStart: 06-18-2022 End: 01-02-2573ecojqhtzwmygu acetonide (KENALOG) injection 25 mgVitamin D 50,000 intl units (1.25 mg) oral capsule (15 sources)Start: 33-40-1529mvoi 1 capsule by mouth every weekVitamin D 50,000 intl units (1.25 mg) oral capsule 50,000 International_Unit = 1 cap(s), Oral, qWeek, # 4 cap(s), Refills(s) 11, Pharmacy: [facility]/pharmacy #[id number], 160, cm, 11/27/20 10:43:00 EDT, Height/Length Dosing, 69.5, kg, 11/27/20 10:43:00 EDT, Weight Dosing Start Date: 12/04/20 Status: Ordered Problems Active Problems Problem ClassificationProblemDateDocumented DateEpisodic/ChronicAbdominal pain (20 sources)Chronic pelvic pain of female; Translations: [Pain in female pelvis] Onset: 324852-97-1117OzchhcooVwhpy bronchitis (1 source)Acute bronchitis; Translations: [Acute bronchitis, unspecified]Onset: 09-53-1866OfesvncdIfjbsymg of urinary tract (9 sources)History of calculus of kidney; Translations: [Personal history of urinary calculi]Onset: 62-49-4290FmvboufxMpfepkvuuolud of surgical procedures or medical care (3 sources)Postoperative wound helgseypm-enzlbmrrpwh02-29yirqracgkfi55-53-0940Trrclfwl Contraceptive and procreative management (2 sources)Patient encounter status; Translations: [Encounter for other general counseling and advice on contraception]EpisodicDeficiency and other anemia (14 sources)Anemia; Translations: [Anemia, unspecified]Onset: 08-21-2024 98-73-0368PvkhulfpKxpzhghsgm and other anemia (2 sources)Anemia, unspecified; Translations: [Anemia, unspecified]Onset: 76-89-8880InxzldsrCjtrbcwpbzgog (20 sources)Endometriosis (clinical); Translations: [Endometriosis, unspecified] Onset: 304794-87-1349XxuhkqnPychmibb; convulsions (20 sources)Febrile convulsion; Translations: [Simple febrile convulsions]Onset: 311178-29-0800OxnapvbfXngsinmkqvmam congenital anomalies (5 sources)Double ureter; 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]Onset: 01-03-2025 ChronicGenitourinary symptoms and ill-defined conditions (11 sources)Stress incontinence (female) (male); Translations: [Female stress incontinence]Onset: 67-36-3212XkmiyomFosdpkixbsboo symptoms and ill-defined conditions (20 sources)Dysuria; Translations: [Dark yellow urine]Onset: 08-19-2020 97-06-0256FkafsywyXkmracxe; including migraine (11 sources)Migraine; Translations: [Migraine, unspecified, not intractable, without status migrainosus]Onset: 938661-66-5343CzeoxcuFbezwuigdx during ; abruptio placenta; placenta previa (3 sources)Threatened miscarriage; Translations: [Threatened ]Onset: 97-84-6187QumfkiafLsfwsupwekzn diseases of female pelvic organs (1 source)Bacterial vaginosis; Translations: [Acute vaginitis]Episodic Lymphadenitis (20 sources)Generalized enlarged lymph nodes; Translations: [Generalized enlarged lymph nodes]Onset: 67-75-7749SrkyainsLyozfsu and fatigue (20 sources)Udgxtcq74-51-8604PjvaensxAhdlavazq disorders (20 sources)Irregular periods; Translations: [Menorrhagia]Onset: 08-19-2020 Resolved: 051682-66-3164JydcgfjEwskms and vomiting (6 sources)Nausea and vomiting; Translations: [Nausea with vomiting, unspecified]Onset: 00-12-3928YjnrlfdxAbjirvrptcmd breast conditions (20 sources)Breast lump; Translations: [Discharge from the breast]Onset: 682429-35-8392DtcqapsgRydopsjhbvw chest pain (20 sources)Tight -69-6046BhdnwfbkUdihdmhxafa deficiencies (20 sources)Vitamin D deficiency; Translations: [Vitamin D deficiency, unspecified]Onset: 576609-34-5943TlpyeesNbgqd complications of (2 sources) with inconclusive viability, not applicable or unspecified; Translations: [ of unknown anatomic location]05-10-2025 EpisodicOther female genital disorders (20 sources)Pelvic congestion syndrome; Translations: [Other specified conditions associated with female genital organs and menstrual cycle]Onset: 510710-61-5756IdmtwvqiIumvp female genital disorders (20 sources)Vaginal discharge; Translations: [Other specified noninflammatory disorders of vagina]61-01-1042VrcihxgtLudlf female genital disorders (4 sources)Other specified conditions associated with female genital organs and menstrual cycle; Translations:[Other specified conditions associated with female genital organs and menstrual cycle]Onset: 65-14-0973IjoooqovNfxjy gastrointestinal disorders (20 sources)Irritable bowel syndrome; Translations: [Irritable bowel syndrome without diarrhea]Onset: 354511-20-4589QezumztYkxeq gastrointestinal disorders (20 sources)Diarrhea; Translations: [Diarrhea, unspecified]Onset: 08-19-2020 11-02-3682ZrwmdueuEjavt gastrointestinal disorders (2 sources)Abdominal bloating; Translations: [Abdominal distension (gaseous)] 59-61-9749YqfnmzwqQnerf gastrointestinal disorders (1 source)Swollen abdomen; Translations: [Abdominal distension (gaseous)]Onset: 98-09-9220QqdqdsxpMmlhj infections; including parasitic (1 source)Helminth infection; Translations: [Helminthiasis, unspecified]Onset: 66-10-3948WcllsittQxizr lower respiratory disease (20 sources)Ghuprjd68-19-5555PxebxkeiNpqtu nervous system disorders (1 source)Acute postoperative pain; Translations: [Other acute postprocedural pain]45-94-9262LlnzbgmfJnrsi nutritional; endocrine; and metabolic disorders (1 source)Body mass index 25-29 - overweight; Translations: [Body mass index (BMI) of 25.0 to 29.9]Onset: 747708-29-2599XpdcoghJukpi nutritional; endocrine; and metabolic disorders (20 sources)Gilbert's syndrome; 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]Onset: 115671-75-1110MzohwrfDgwvq nutritional; endocrine; and metabolic disorders (4 sources)Gilbert syndrome; 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]Onset: 10-08-2022 ChronicOther nutritional; endocrine; and metabolic disorders (20 sources)Body mass index 25-29 - -85-2972WdjlbtvxYieqs nutritional; endocrine; and metabolic disorders (20 sources)Overweight in adulthood with body mass index of 25 or more but less than 30; Translations: [Body mass index (BMI) 25.0-25.9, adult]Onset: 08-05-2022 EpisodicOther nutritional; endocrine; and metabolic disorders (12 sources)Overweight; Translations: [Overweight]Onset: 89-89-6722NhzeuanrHtuxs and delivery including normal (3 sources)Urine test positive; Translations: [Encounter for test, result positive]Onset: 900905-58-3839VthydhizZzqig screening for suspected conditions (not mental disorders or infectious disease) (20 sources)Mammography abnormal; Translations: [Cancer cervix screening status] Onset: 949695-10-7877QwgtjmrrTyqdc skin disorders (20 sources)Disorder of uagl80-21-7586JbokucuyTamba upper respiratory disease (20 sources)Allergic rhinitis; Translations: [Allergic rhinitis, unspecified] Onset: 554497-18-4552YrpuydwCgxndo media and related conditions (20 sources)Serous otitis media; Translations: [Unspecified nonsuppurative otitis media, unspecified ear]Onset: 107317-66-3429VlnfvkqhPumpicq cyst (10 sources)Ruptured cyst of ovary; Translations: [Ovarian cyst rupture]Onset: 092611-83-7632YvbikeusGttlhllg codes; unclassified (4 sources)Family history of breast cancer; Translations: [Family history of malignant neoplasm of breast]EpisodicResidual codes; unclassified (3 sources)At high risk for breast cancer; Translations: [Other specified personal risk factors, not elsewhereclassified]EpisodicResidual codes; unclassified (2 sources)Family history of malignant neoplasm of breast; Translations: [Family history of breast cancer]Onset: 13-53-7398DlytcneySqpwprue codes; unclassified (2 sources)Other specified personal risk factors, not elsewhere classified; Translations: [At high risk for breast cancer]Onset: 61-33-7718DvgabtxtCevilimj codes; unclassified (1 source)Postoperative state; Translations: [Other specified postprocedural states]16-51-0198PounbpedMevlcolt codes; unclassified (4 sources)Other specified postprocedural states; Translations: [Other specified postprocedural states]Onset: 89-25-1364UnkayovrXsprgzzc codes; unclassified (2 sources)H/O: miscarriage; Translations: [Personal history of other complications of , childbirth and the puerperium]19-13-3468Jfxanery Residual codes; unclassified (1 source)Postoperative state; Translations: [Post-operative state]Syncope (20 sources)Syncope; Translations: [Syncope and collapse]Onset: 08-19-2020 23-06-1768XwnjeukhInkwhbu disorders (20 sources)Goiter; Translations: [Nontoxic goiter, unspecified]Onset: 522972-66-6950SferrdeWfroaedgnjbe (1 source)Unknown / UNK(Unknown)Onset: 95-75-4578Rvgopyancfig (3 sources)Breast rshabsg01-03-5286Xaahpglieqmt (20 sources)Body mass index 25-29 - overweight; Translations: [Body mass index (BMI) of 25.0 to 29.9]Onset: 725118-68-0185Jesgczmjaxau (20 sources)Pain of right -05-6502Rdipazashnpr (2 sources)Pre-op ExamOnset: 05-29-4061Azsfdserfaop (2 sources)Chronic primary bladder pain -10-7611Hvrscqj tract infections (20 sources)Chronic interstitial cystitis; Translations: [Interstitial cystitis (chronic) without hematuria]Onset: 710141-11-3939YbjdzogFklmfjk tract infections (20 sources)Acute cystitis; Translations: [Acute cystitis without hematuria] Onset: 562647-23-6835YkfcmirmKojte infection (20 sources)Viral bfhbygp51-27-3423Aoelqoou Past or Other Problems Problem ClassificationProblemDateDocumented DateEpisodic/ChronicOther complications of (1 source)Finding related to ; Translations: [Other specified related conditions, unspecified trimester]Onset: 42-68-7339LkojlbagQhcbq connective tissue disease (20 sources)Myofascial pain; Translations: [Myalgia, other site]Onset: 81-49-8604GiphuuceXyjgr connective tissue disease (12 sources)Pain in left lower limb; Translations: [Pain in left leg]Onset: 19-03-8031VynqhekpRutpk female genital disorders (19 sources)Recurrent loss; 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 current ]Onset: 341005-55-5381DpzepsymPomyzgglelhl (1 source)PELVIC PAIN IN FEMALE R10.2 51516Lcopm: 38-45-2804Kzurqnoubykb (1 source)Exposure to 2019 novel coronavirus; Translations: [Contact with and (suspected) exposure to COVID19]Unclassified (20 sources)PregnancyOnset: 09-02-2015 Resolved: Results Test NameValueInterpretationReference RangeFacilityBhCG Quanton 99-16-9410Vuly hCG Fbn9056 mIU/mLHigh1-3FShelby Memorial HospitalComment on above:Result Comment: 'F NON < 1 - 3' ' 0.2 - 1 WEEK = 5 TO 50' ' 1 - 2 WEEKS = 50 - 500' ' 2 - 3 WEEKS = 100 - 5000' ' 3 - 4 WEEKS = 500 - 19236' ' 4 - 5 WEEKS = 1000 - 37993' ' 5 - 6 WEEKS = 93150 - 722903' ' 6 - 8 WEEKS = 81822 - 194744' ' 8 - 12 WEEKS = 68095 - 311850'Performed By: #### [id number] #### [facility] [address], [place] [address]GdCR Quanton 61-14-5797Khho hCG Hgu9352 mIU/mLHigh1-3FShelby Memorial HospitalComment on above:Result Comment: 'F NON < 1 - 3' ' 0.2 - 1 WEEK = 5 TO 50' ' 1 - 2 WEEKS = 50 - 500' ' 2 - 3 WEEKS = 100 - 5000' ' 3 - 4 WEEKS = 500 - 06972' ' 4 - 5 WEEKS = 1000 - 44078' ' 5 - 6 WEEKS = 53792 - 909621' ' 6 - 8 WEEKS = 86766 - 702502' ' 8 - 12 WEEKS = 14039 - 733589'Performed By: #### [id number] #### [facility] [address], [place] [address]Hugnwddrhwsbavxfdm.beta subunit [Units/volume] in Serum or PlasmaOrdered By: Jurgen Flores on 97-58-8899RTA.beta subunit Qz0255.00 m[IU]/mLSelect Medical Trihealth Rehabilitation HospitalComment on above:Approximate Approximate hCG Gestational Age Range (mIU/ml) (weeks)0.2-1 5-50 1-2 50-500 2-3 100-5,000 3-4 500-10,000 4-5 1,000-50,000 5-6 10,000-100,000 6-8 15,000-200,000 8-12 10,000-100,000HCG,Quantitativeon 25-25-6993KAP,Gqxrvnbivnun1504.00 m[iU]/mL NormalThe Novant Health / Nhrmc Physician GroupComment on above:Result Comment: Approximate Approximate hCG Gestational Age Range (mIU/ml) (weeks) 0.2-1 5-50 1-2 50-500 2-3 100-5,000 3-4 500-10,000 4-5 1,000-50,000 5-6 10,000-100,000 6-8 15,000-200,000 8-12 10,000-100,000 PERFORMED BY: [place] [address] PATHOLOGIST FORESTRY ADVISER SRIRAM LARES M.D.Performed By: #### HCGQNT #### [facility] [address] [place] [address] USAAlanine aminotransferase [Enzymatic activity/volume] in Serum or PlasmaOrdered By: Jurgen Flores on 62-38-7275BFN [Catalytic activity/Vol]11 U/LNormal7-52[facility] HospitalComment on above: Performed By: #### LIPASE, HCGQUAL, CMP, CBC #### [facility] [address] [place] [address] USAAlbumin [Mass/volume] in Serum or Plasma by Bromocresol green (BCG) dye binding methoOrdered By: Jurgen Flores on 37-19-0959Nantmpx BCG dye [Mass/Vol]4.5 g/dL3.5-5.7FAvita Health System Galion HospitalAlkaline phosphatase [Enzymatic activity/volume] in Serum or PlasmaOrdered By: Jurgen Flores on 30-81-2802QUT [Catalytic activity/Vol]79 U/YPipoyc51-079MllmeiuqiSelect Medical Trihealth Rehabilitation HospitalComment on above:Performed By: #### LIPASE, HCGQUAL, CMP, CBC #### [facility] [address] [place] [address] USAAppearance of UrineOrdered By: Jurgen Flores on 82-95-5727Ahptzpacdx (U)CloudyCritically abnormalCleThe Surgical Hospital at SouthwoodsComment on above:Order Comment: Name Collection Type:: Clean-Voided MidstreamPerformed By: #### ADDONUAPLUS, CUU #### [place] [address] USAAspartate aminotransferase [Enzymatic activity/volume] in Serum or PlasmaOrdered By: Jurgen Flores on 54-96-6589LTT [Catalytic activity/Vol]15 U/BChtzhh01-86XguwotqkeSelect Medical Trihealth Rehabilitation HospitalComment on above: Performed By: #### LIPASE, HCGQUAL, CMP, CBC #### [facility] [address] [place] [address] USABacteria [Presence] in Urine by AutomatedOrdered By: Jurgen Flores on 18-00-5318Jgcffjjx Auto Ql (U)4+ [HPF]HighNone Barney Children's Medical CenterBasophils [#/volume] in Blood by Automated countOrdered By: Jurgen Flores on 04-86-6951Tnvawarqg (Bld) [#/Vol]0.0 10*3/uLNormal0.0-0.2 [facility] HospitalComment on above:Result Comment: PERFORMED BY: [place] [address] PATHOLOGIST FORESTRY ADVISER SRIRAM LARES M.D.Performed By: #### LIPASE, HCGQUAL, CMP, CBC #### [facility] [address] [place], [place] [id number] USABasophils/100 leukocytes in Blood by Automated count Ordered By: Jurgen Flores on 23-68-5214Ynwwvpuck/100 WBC (Bld)0.3 %Normal. [facility] HospitalComment on above:Performed By: #### LIPASE, HCGQUAL, CMP, CBC #### [facility] [address] [place] [address] USABilirubin Test strip Ql (U)Ordered By: Jurgen Flores on 41-45-9877Bazckxhzi Ql (U)NegativeNegativeSelect Medical Trihealth Rehabilitation Hospital Bilirubin.total [Mass/volume] in Serum or PlasmaOrdered By: Jurgen Flores on 44-58-9148Shgdszabf [Mass/Vol]1.7 mg/dLHigh0.3-1.0[facility] HospitalComment on above:Samples from patients who have taken Naproxen have shown spurious elevation in Total Bilirubin levels. A metabolite of Naproxen, O- desmethylnaproxen, has been shown to interfere with the Jendrassik-Grof method for measuring Total Bilirubin.Result Comment: Samples from patients who have taken Naproxen have shown spurious elevation in Total Bilirubin levels. A metabolite of Naproxen, O-desmethylnaproxen, has been shown to interfere with the Jendrassik-Grof method for measuring Total Bilirubin.Performed By: #### LIPASE, HCGQUAL, CMP, CBC #### [facility] [address] [place] [address] USACalcium [Mass/volume] in Serum or PlasmaOrdered By: Jurgen Flores on 72-39-6952Ufafpgz [Mass/Vol]9.0 mg/dLNormal8.6-10.3FAvita Health System Galion HospitalComment on above:Performed By: #### LIPASE, HCGQUAL, CMP, CBC #### [facility] [address] [place] [address] USACarbon dioxide, total [Moles/volume] in Serum or Plasma Ordered By: Jurgen Flores on 79-71-8241ML9 [Moles/Vol]25.7 mmol/LNormal 21.0-31.0[facility] HospitalComment on above:Performed By: #### LIPASE, HCGQUAL, CMP, CBC #### [facility] [address] [place] [address] USAChloride [Moles/volume] in Serum or PlasmaOrdered By: Jurgen Flores on 21-16-8231Mompjajm [Moles/Vol]107 mmol/VIjpihj11-014UpckapawsSelect Medical Trihealth Rehabilitation HospitalComment on above:Performed By: #### LIPASE, HCGQUAL, CMP, CBC #### [facility] [address] [place] [address] USAChoriogonadotropin.beta subunit [Units/volume] in Serum or PlasmaOrdered By: Jurgen Flores on 12-43-8236PQH.beta subunit Qn804.58 m[IU]/mLSelect Medical Trihealth Rehabilitation HospitalComment on above:Approximate Approximate hCG Gestational Age Range (mIU/ml) (weeks)0.2-1 5-50 1-2 50-500 2-3 100-5,000 3-4 500-10,000 4-5 1,000-50,000 5-6 10,000-100,000 6-8 15,000-200,000 8-12 10,000-100,000HCG.beta subunit QnPositiveSelect Medical Trihealth Rehabilitation Hospital Color of Urine by AutoOrdered By: Jurgen Flores on 05-04-9877Rcxaf (U)Yellow NormalYellowSelect Medical Trihealth Rehabilitation HospitalComment on above:Order Comment: Name Collection Type:: Clean-Voided MidstreamPerformed By: #### ADDONUAPLUS, CUU #### [place] [address] USAComplete Blood Count Auto Diffon 30-99-7163Mlbd Corpuscular HGB Conc34.1 g/bJWvmkqn95.0-35.0The [facility] / [facility]hrmc Physician GroupComment on above:Performed By: #### LIPASE, HCGQUAL, CMP, CBC #### [facility] [address] [place] [address] USAMonocytes/100 WBC (Bld)17.30 %Normal0.00-20.00The [facility] / Nhrmc Physician GroupComment on above:Performed By: #### LIPASE, HCGQUAL, CMP, CBC #### [facility] [address] [place] [address] USANRBC%0.1 /100{WBC}Normal0-0.5The [facility] Comment on above:Performed By: #### LIPASE, HCGQUAL, CMP, CBC #### [facility] [address] [place] [address] USAWhite Blood Count5.2 [CFU]/mLNormal3.8-11.6The [facility]rmc Physician GroupComment on above:Performed By: #### LIPASE, HCGQUAL, CMP, CBC #### [place] [address] USAComprehensive Metabolic Panelon 89-19-3100Ixskhhk [Mass/Vol]4.5 g/dLNormal3.5-5.7The [facility]hrmc Physician GroupComment on above: Performed By: #### LIPASE, HCGQUAL, CMP, CBC #### [place] [address] USACreatinine Clr Calc Ahzbflpe997.44NormalThe [facility] / Nhrmc Physician GroupComment on above:Performed By: #### LIPASE, HCGQUAL, CMP, CBC #### [place] [address] USAGFR/1.73 sq M.predicted MDRD (S/P/Bld) [Vol rate/Area] mL/min/{1.73_m2}NormalThe [facility] / Nhrmc Physician GroupComment on above:Performed By: #### LIPASE, HCGQUAL, CMP, CBC #### [place] [address] USACreatinine [Mass/volume] in Serum or PlasmaOrdered By: Jurgen Flores on 62-13-2899Iiucpqltaw [Mass/Vol]0.62 mg/dLNormal0.60-1.20 [facility] HospitalComment on above:Performed By: #### LIPASE, HCGQUAL, CMP, CBC #### [place] [address] USADipstick and Microscopicon 17-28-6433Nhjsmpsc,Urine4+ [HPF]NormalNone SeenThe [facility] / Nhrmc Physician GroupComment on above:Order Comment: Name Collection Type:: Clean-Voided MidstreamPerformed By: #### ADDONUAPLUS, CUU #### [place] [address] USABilirubin,UrineNegativeNormalNegativeHca Florida [facility] Hospital Physician GroupComment on above:Order Comment: Name Collection Type:: Clean- Voided MidstreamPerformed By: #### ADDONUAPLUS, CUU #### [place] [address] USAGlucose Ql (U)NormalNormalNormalThe [facility] Physician GroupComment on above:Order Comment: Name Collection Type:: Clean-Voided MidstreamPerformed By: #### ADDONUAPLUS, CUU #### [place] [address] USAHyaline Casts,UrineNoneNormal0-8The [facility]rmc Physician GroupComment on above:Order Comment: Name Collection Type:: Clean-Voided MidstreamPerformed By: #### ADDONUAPLUS, CUU #### [place] [address] USAMucus,Urine2+ [LPF]Critically abnormalThe [facility] / N[facility]rmc Physician GroupComment on above:Order Comment: Name Collection Type:: Clean- Voided MidstreamResult Comment: PERFORMED BY: [place] [address] PATHOLOGIST FORESTRY ADVISER SRIRAM LARES M.D.Performed By: #### ADDONUAPLUS, CUU #### [place] [address] USANitrite,UrineNegativeNormalNegativeHca [facility] Physician GroupComment on above:Order Comment: Name Collection Type:: Clean-Voided MidstreamPerformed By: #### ADDONUAPLUS, CUU #### [place] [address] USAOccult Blood,UrineNegativeNormalNegativeThe [facility] / [facility]rmc Physician GroupComment on above:Order Comment: Name Collection Type:: Clean- Voided MidstreamResult Comment: PERFORMED BY: [place] [address] PATHOLOGIST FORESTRY ADVISER SRIRAM LARES M.D.Performed By: #### ADDONUAPLUS, CUU #### [place] [address] USAProtein,UrineTraceNormalNegativeThe [facility]rmc Physician GroupComment on above:Order Comment: Name Collection Type:: Clean-Voided MidstreamPerformed By: #### ADDONUAPLUS, CUU #### [place] [address] USARBC,Ejofq6-2Vdzqzh9-3Xme [facility] Physician GroupComment on above:Order Comment: Name Collection Type:: Clean-Voided MidstreamPerformed By: #### ADDONUAPLUS, CUU #### [place] [address] USASpecificy Firth,Urine1.143Selhud2.001-1.030The [facility] / Nhrmc Physician GroupComment on above:Order Comment: Name Collection Type:: Clean- Voided MidstreamPerformed By: #### ADDONUAPLUS, CUU #### [place] [address] USASquamous Epithelial Cell,Cclla59-51Fvobmf9-0Ktu [facility] Physician GroupComment on above:Order Comment: Name Collection Type:: Clean- Voided MidstreamPerformed By: #### ADDONUAPLUS, CUU #### [place] [address] USAUrobilinogen,UrineNormalNormalNormalThe [facility]c Physician GroupComment on above:Order Comment: Name Collection Type:: Clean- Voided MidstreamPerformed By: #### ADDONUAPLUS, CUU #### [place] [address] USAWBC,UrineInnumerableNormal0-4The [facility] Comment on above:Order Comment: Name Collection Type:: Clean-Voided Midstream Performed By: #### ADDONUAPLUS, CUU #### [place] [address] USAEosinophils [#/volume] in Blood by Automated countOrdered By: Jurgen Flores on 64-01-2146Kiettwdvfmt (Bld) [#/Vol]0.0 10*3/uLNormal 0.0-0.45[facility] Rehabilitation HospitalComment on above:Performed By: #### LIPASE, HCGQUAL, CMP, CBC #### [facility] [address] [place] [address] USAEosinophils/100 leukocytes in Blood by Automated count Ordered By: Jurgen Flores on 19-06-6584Jjnluesxkpn/100 WBC (Bld)0.7 %Normal. [facility] Rehabilitation HospitalComment on above:Performed By: #### LIPASE, HCGQUAL, CMP, CBC #### [facility] [address] [place] [address] USAEpithelial cells.squamous [#/area] in Urine sediment by Automated countOrdered By: Jurgen Flores on 52-35-9029Mmcarjrirh cells.squamous Auto (Urine sed) [#/Area]20-49 [HPF]High0-2FAvita Health System Galion HospitalErythrocyte distribution width [Ratio] by Automated countOrdered By: Jurgen Flores on 10-15-3134Daynpxcuzth distribution width (RBC) [Ratio] 13.0 %Miftqc50.9-15.3FAvita Health System Galion HospitalComment on above:Performed By: #### LIPASE, HCGQUAL, CMP, CBC #### [facility] [address] [place] [address] USAErythrocytes [#/area] in Urine sediment by Automated count Ordered By: Jurgen Flores on 19-25-1578VUM Auto (Urine sed) [#/Area]3-4 [HPF] 0-4FAvita Health System Galion HospitalErythrocytes [#/volume] in Blood by Automated countOrdered By: Jurgen Flores on 16-02-4185EOP (Bld) [#/Vol]4.95 10*6/uLNormal3.60-5.00[facility] HospitalComment on above: Performed By: #### LIPASE, HCGQUAL, CMP, CBC #### [facility] [address] [place] [address] USAGlomerular filtration rate [Volume Rate/Area] in Serum, Plasma or Blood by CreatinineOrdered By: Jurgen Flores on 20-81-4626Vlhphjwdni filtration rate [Volume Rate/Area] in Serum, Plasma or Blood by Creatinine> 60.0 mL/MinSelect Medical Trihealth Rehabilitation HospitalGlucose [Mass/volume] in Serum or Plasma Ordered By: Jurgen Flores on 95-26-3591Vouupql [Mass/Vol]96 mg/cEDeqiky20-295 [facility] HospitalComment on above:ADA recommended reference rangeRandom Glucose Reference Range is dependent on time and content of last meal. Glucose of more than 200 mg/dL in a nonstressed, ambulatory subject supports the diagnosisof Diabetes Mellitus.Result Comment: Random Glucose Reference Range is dependent on time and content of last meal. Glucose of more than 200 mg/dL in a nonstressed, ambulatory subject supports the diagnosis of Diabetes Mellitus. ADA recommended reference rangePerformed By: #### LIPASE, HCGQUAL, CMP, CBC #### [facility] [address] [place] [address] USAGlucose [Mass/volume] in Urine by Test stripOrdered By: Jurgen Flores on 07-32-0508Oscqdqj Test strip (U) [Mass/Vol]Normal mg/dLNormal [facility] HospitalHCG,Qualitative Serumon 05-10-2025 HCG,Qualitative SerumPositiveNoCatawba Valley Medical Center Physician GroupComment on above:Result Comment: PERFORMED BY: [address] [address] PATHOLOGIST FORESTRY ADVISER SRIRAM LARES M.D.Performed By: #### LIPASE, HCGQUAL, CMP, CBC #### [facility] [address] [place] [address] USAHCG,Quantitativeon 54-79-1305JVA,Rkkshyrqdqba348.58 m[iU]/mLNormalThe [facility] / [facility]rmc Physician GroupComment on above:Result Comment: Approximate Approximate hCG Gestational Age Range (mIU/ml) (weeks) 0.2-1 5-50 1-2 50-500 2-3 100-5,000 3-4 500-10,000 4-5 1,000-50,000 5-6 10,000-100,000 6-8 15,000-200,000 8-12 10,000-100,000 PERFORMED BY: [place] [address] PATHOLOGIST FORESTRY ADVISER SRIRAM LARES M.D.Performed By: #### HCGQNT #### [place] [address] USAHematocrit [Volume Fraction] of Blood by Automated count Ordered By: Jurgen Flores on 22-23-4700Jqnrqbfjva (Bld) [Volume fraction]43.0 %Vulqfc12.0-46.4FAvita Health System Galion HospitalComment on above:Performed By: #### LIPASE, HCGQUAL, CMP, CBC #### [place] [address] USAHemoglobin Test strip Ql (U)Ordered By: Jurgen Flores on 29-25-0469Zkhogqxjec Ql (U)NegativeNegMartin Memorial Hospital Hemoglobin [Mass/volume] in BloodOrdered By: Jurgen Flores on 05-10-2025 Hemoglobin (Bld) [Mass/Vol]14.7 g/iJInrpao65.8-15.4FAvita Health System Galion HospitalComment on above:Performed By: #### LIPASE, HCGQUAL, CMP, CBC #### [place] [address] USAHyaline casts [#/area] in Urine sediment by Automated countOrdered By: Jurgen Flores on 62-53-2731Kvmcooo casts Auto (Urine sed) [#/Area]None [LPF]0-8[facility] HospitalKetones [Presence] in Urine by Test stripOrdered By: Jurgen Flores on 73-08-8589Dzjysay Ql (U) NegativeNormalNegMartin Memorial HospitalComment on above:Order Comment: Name Collection Type:: Clean-Voided MidstreamPerformed By: #### ADDONUAPLUS, CUU #### [place] [address] USALeukocyte esterase [Presence] in Urine by Test strip Ordered By: Jurgen Flores on 16-51-7009Tjjgkhpun esterase Test strip Ql (U)4+ NormalNegativeSelect Medical Trihealth Rehabilitation HospitalComment on above:Order Comment: Name Collection Type:: Clean-Voided MidstreamPerformed By: #### ELIER CUU #### [facility] [address] [place] [id number] USALeukocytes [#/area] in Urine sediment by Automated count Ordered By: Jurgen Flores on 93-32-5926BQE Auto (Urine sed) [#/Area] Innumerable [HPF]High0-4FAvita Health System Galion HospitalLeukocytes [#/volume] corrected for nucleated erythrocytes in Blood by Automated counOrdered By: Jurgen Flores on 17-93-5378CCQ corrected for nucl RBC Auto (Bld) [#/Vol]5.2 10*3/uL3.8-11.6FAvita Health System Galion HospitalLeukocytes [#/volume] in Blood by Automated countOrdered By: Jurgen Flores on 46-19-4352GVK (Bld) [#/Vol]5.2 10*3/uLNormal3.8-11.6FAvita Health System Galion HospitalComment on above:Performed By: #### LIPASE, HCGQUAL, CMP, CBC #### [facility] [address] [place] [address] USALipase [Enzymatic activity/volume] in Serum or Plasma Ordered By: Jurgen Flores on 12-07-2939Xrqtmy [Catalytic activity/Vol]17.0 U/L Avcunw99.0-82.0[facility] Rehabilitation HospitalComment on above:Performed By: #### LIPASE, HCGQUAL, CMP, CBC #### [facility] [address] [place], [place] [address] USALymphocytes [#/volume] in Blood by Automated countOrdered By: Jurgen Flores on 56-86-3618Fodbsktjzkz (Bld) [#/Vol]1.4 10*3/uLNormal 1.00-4.8[facility] HospitalComment on above:Performed By: #### LIPASE, HCGQUAL, CMP, CBC #### [facility] [address] [place] [id number] USALymphocytes/100 leukocytes in Blood by Automated count Ordered By: Jurgen Flores on 86-13-1402Yypnimrvwrg/100 WBC (Bld)26.7 %Normal. [facility] HospitalComment on above:Performed By: #### LIPASE, HCGQUAL, CMP, CBC #### [address] [Entitic mass] by Automated countOrdered By: Jurgen Flores on 94-68-9003KZO (RBC) [Entitic mass]29.6 zqCimoxo81.7-34.3FAvita Health System Galion HospitalComment on above:Performed By: #### LIPASE, HCGQUAL, CMP, CBC #### [address] Auto (RBC) [Mass/Vol]Ordered By: Jurgen Flores on 06-69-4645OETZ (RBC) [Mass/Vol]34.1 g/dL32.0-35.0[facility] Rehabilitation HospitalMCV [Entitic volume] by Automated countOrdered By: Jurgen Flores on 22-12-4664UNP (RBC) [Entitic vol]86.9 yMKdrxyn28-608XcmpqvasmSelect Medical Trihealth Rehabilitation HospitalComment on above:Performed By: #### LIPASE, HCGQUAL, CMP, CBC #### [place] [address] USAMonocyte distribution width [Entitic volume] in Blood by AutomatedOrdered By: Jurgen Flores on 17-87-9755Vxyzowtf distribution width Auto (Bld) [Entitic vol]17.30 %0.00-20.00[facility] Monocytes [#/volume] in Blood by Automated countOrdered By: Jurgen Flores on 29-83-3099Laoozyyow (Bld) [#/Vol]0.3 10*3/uLNormal0.0-0.8[facility] HospitalComment on above:Performed By: #### LIPASE, HCGQUAL, CMP, CBC #### [address] [place] [address] USAMonocytes/100 leukocytes in Blood by Automated count Ordered By: Jurgen Flores on 50-44-6889Ciaegebzp/100 WBC (Bld)5.9 %Normal. [facility] Rehabilitation HospitalComment on above:Performed By: #### LIPASE, HCGQUAL, CMP, CBC #### [facility] [address] [place] [address] USAMucus [Presence] in Urine by AutomatedOrdered By: Jurgen Flores on 99-86-2670Xlbnx Auto Ql (U)2+ [LPF]AbnormalSelect Medical Trihealth Rehabilitation HospitalNeutrophils [#/volume] in Blood by Automated countOrdered By: Jurgen Flores on 71-32-9185Xrgxdvmotuf (Bld) [#/Vol]3.5 10*3/uLNormal1.8-7.7 [facility] HospitalComment on above:Performed By: #### LIPASE, HCGQUAL, CMP, CBC #### [facility] [address] [place] [address] USANeutrophils/100 leukocytes in Blood by Automated count Ordered By: Jurgen Flores on 45-19-0423Tgrvdhzrgcf/100 WBC (Bld)66.4 %Normal. [facility] HospitalComment on above:Performed By: #### LIPASE, HCGQUAL, CMP, CBC #### [facility] [address] [place] [address] USANitrite Test strip Ql (U)Ordered By: Jurgen Flores on 47-38-3658Pwotdaw Ql (U)NegativeNegativeSelect Medical Trihealth Rehabilitation HospitalNo Panel InformationOrdered By: Jurgen Flores on 11-58-5724Nwlxzyog Creatinine Clearance (Jlmt441.44[facility] Rehabilitation HospitalNucleated erythrocytes [Presence] in Blood by Automated countOrdered By: Jurgen Flores on 05-10-2025 Nucleated RBC Auto Ql (Bld)0.1 /100{WBC}0-0.5FAvita Health System Gal[facility] Hospital Platelet mean volume [Entitic volume] in Blood by Automated countOrdered By: Jurgen Flores on 29-65-7053Szhdwehs mean volume (Bld) [Entitic vol]8.5 fL Normal6.3-10.7FAvita Health System Galion HospitalComment on above:Performed By: #### LIPASE, HCGQUAL, CMP, CBC #### [place] [address] USAPlatelets [#/volume] in Blood by Automated countOrdered By: Jurgen Flores on 15-94-8783Txjedyeyd (Bld) [#/Vol]206 10*3/jGEzezzq264-445 [facility] HospitalComment on above:Performed By: #### LIPASE, HCGQUAL, CMP, CBC #### [place] [address] USAPotassium [Moles/volume] in Serum or PlasmaOrdered By: Jurgen Flores on 00-33-3440Npiwazfzh [Moles/Vol]3.6 mmol/LNormal3.5-5.1 [facility] HospitalComment on above:Performed By: #### LIPASE, HCGQUAL, CMP, CBC #### [place] [address] USAProtein Test strip (U) [Mass/Vol]Ordered By: Jurgen Flores on 17-16-4904Sqgepuo (U) [Mass/Vol]Trace mg/dLHighNegativeSelect Medical Trihealth Rehabilitation HospitalProtein [Mass/volume] in Serum or PlasmaOrdered By: Jurgen Flores on 65-41-0389Yjshpet [Mass/Vol]7.6 g/dLNormal6.4-8.9[facility] HospitalComment on above:Performed By: #### LIPASE, HCGQUAL, CMP, CBC #### [place] [address] USASerum globulin measurement by calculation (mass/volume) Ordered By: Jurgen Flores on 01-83-6446Kmytwasy (S) [Mass/Vol]3.1 g/dLNormal [facility] HospitalComment on above:Performed By: #### LIPASE, HCGQUAL, CMP, CBC #### [place] [address] USASerum or plasma albumin/globulin mass ratioOrdered By: Jurgen Flores on 16-23-9802Uwhcpzx/Globulin [Mass ratio]1.5 {ratio}Normal [facility] HospitalComment on above:Performed By: #### LIPASE, HCGQUAL, CMP, CBC #### [facility] [address] [place] [address] USASerum or plasma anion gap determinationOrdered By: Jurgen Flores on 27-41-1656Xujdw gap [Moles/Vol]9.9 mmol/LNormal6.0-15.0 [facility] HospitalComment on above:Performed By: #### LIPASE, HCGQUAL, CMP, CBC #### [facility] [address] [place] [address] USASodium [Moles/volume] in Serum or PlasmaOrdered By: Jurgen Flores on 90-65-1888Gvpxtz [Moles/Vol]139 mmol/YNkfphi324-747BzqmwjpeoSelect Medical Trihealth Rehabilitation HospitalComment on above:Performed By: #### LIPASE, HCGQUAL, CMP, CBC #### [facility] [address] [place] [address] USASpecific gravity Test strip (U) [Rel density]Ordered By: Jurgen Flores on 31-55-5065Fbherlsm gravity (U) [Rel density]1.0241.001-1.030 [facility] HospitalUS OB transvaginalon 08-72-5464KV OB transvaginalCORE[facility] [place] [address] [place] [address] Ultrasound Report Signed Patient: Miladis Dougherty MR#: [id number] : 1995 Acct:[id number] Age/Sex: 29 / F ADM Date: 05/10/25 Loc: ER Room: Type: [facility] ER Attending Dr: Ordering Provider: Jurgen Flores DO Date of Service: 05/10/25 US/US OB transvaginal: Abdominal Pain ([id number]) US/US OB <= 14 weeks fetus: . Copies to: Jurgen Flores DO US OB <= 14 weeks fetus, US OB transvaginal 05/10/2025 12:06 PM SIGNS AND SYMPTOMS: Lower pelvic pain, nausea and vomiting, positive test COMPARISON: None. TECHNIQUE: Realtime Transvaginal and Transabdominal imaging was performed. Transvaginal imaging was utilized to better evaluate the ovaries and the endometrial stripe. Grayscale, color scale Doppler, vascular duplex analysis of the bilateral ovaries was performed to assess blood flow. FINDINGS: The uterus measures 9.5 x 4 x 9 x 6.7 cm. The uterus is normal in echogenicity. Endometrium: Normal thickness and appearance. The endometrium shows no evidence of intrauterine . Ovaries: Along the right adnexa there is a thick-walled irregular but predominantly anechoic structure measuring 1.9 x 1.3 x 1.4 cm in greatest dimension. An ectopic is not excluded. Right Ovary measurements: 4.8 x 2.2 x 2.5 cm Left Ovary measurements: 3.0 x 2.7 x 1.8 cm A small amount of free fluid is noted in the cul-de-sac. Vascular duplex analysis of the bilateral ovaries demonstrates normal blood flow without evidence of ovarian ischemia. US/US OB <= 14 weeks fetus IMPRESSION: Along the right adnexa there is a thick-walled irregular but predominantly anechoic structure measuring 1.9 x 1.3 x 1.4 cm in greatest dimension. An ectopic is not excluded. A small amount of free fluid is noted in the cul-de-sac. No evidence of intrauterine . No evidence of ovarian torsion. Impression dictated by: Jose Alejandro Toledo M.D. 05/10/2025 12:59 PM Dictation Location: [place] [address] Tech: Julia White Transcribed By: TRCIIA 05/10/25 1259 Dictated By: Jose Alejandro Toledo II, MD 05/10/25 1251 Signed By: 05/10/25 1259[facility] Physician GroupUrea nitrogen [Mass/volume] in Serum or PlasmaOrdered By: Jurgen Flores on 46-02-4878Blxe nitrogen [Mass/Vol] 6 mg/dLSelect Medical Trihealth Rehabilitation HospitalComment on above:Performed By: #### LIPASE, HCGQUAL, CMP, CBC #### [facility] [address] [place], [place] [address]Urine Cultureon 11-03-8253Sbxjbpzy identified Cx Nom (U) 25,000 colonies/ml mixed bacterial skin contaminants 2 Days PERFORMED BY: [facility] [address] [place] [id number] PATHOLOGIST FORESTRY ADVISER SRIRAM LARES M.D.NormalThe [facility] / Nhrmc Physician GroupComment on above: Performed By: #### ELIER, CUU #### [facility] [address] [place] [address] USAUrine cultureOrdered By: Jurgen Flores on 05-10-2025 Bacteria identified Cx Nom (U)2 DaysSelect Medical Trihealth Rehabilitation Hospital Urobilinogen Test strip (U) [Mass/Vol]Ordered By: Jurgen Flores on 05-10-2025 Urobilinogen (U) [Mass/Vol]Normal mg/dLNormalSelect Medical Trihealth Rehabilitation HospitalpH of Urine by Test stripOrdered By: Jurgen lFores on 78-76-6691hS (U)7.5 [pH] Normal5.0-9.0[facility] HospitalComment on above:Order Comment: Name Collection Type:: Clean-Voided MidstreamPerformed By: #### ELIER, CUU #### [place] [id number] USAMain OR Intraoperative Recordon 74-54-4378Ikeb OR Intraoperative RecordMain OR Intraoperative Record IntraOp Document Type FT Summary Primary Physician: Sumaya Park MD Finalized Date/Time: 04/04/25 13:55:19 Pt. Name: MILADIS DOUGHERTY/Sex: 1995 Female Med Rec #: [id number] Physician: Sumaya Park MD Financial #: [id number] Pt. Type: A Room/Bed: [facility] Admit/Disch: 04/03/25 09:11:53 - 04/03/25 14:40:00 Institution: Case Times FT Entry 1 Patient Times In Room 04/03/25 12:25:00 Out Room 04/03/25 12:53:00 Procedure Times Start 04/03/25 12:37:00 Stop 04/03/25 12:48:00 Anesthesia Times Start 04/03/25 12:25:00 Stop 04/03/25 12:53:00 Last Modified By: Ramon Cali 04/03/25 13:03:08 Case Attendance FT Entry 1 Entry 2 Entry 3 Case Attendee Phoenix Osorio MD, Ramon Casey Role Performed Anesthesiologist Surgeon - Primary Food Handler - Primary Software Quality Assurance Analyst Time In 04/03/25 12:25:00 04/03/25 12:25:00 04/03/25 12:45:00 Time Out 04/03/25 12:53:00 04/03/25 12:48:00 04/03/25 12:53:00 Procedure CYSTOSCOPY(.) CYSTOSCOPY(.) CYSTOSCOPY(.) Comments 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 Last Modified By: Ramon Cali Terry T Sweene, Terry T 04/03/25 13:08:26 04/03/25 13:08:26 04/03/25 13:08:26 Entry 4 Entry 5 Case Attendee Demetria Stein Ii, CST, Joseline Bunch Role Performed Food Handler - Relief Scrub - Primary Time In 04/03/25 12:25:00 04/03/25 12:25:00 Time Out 04/03/25 12:53:00 04/03/25 12:53:00 Procedure CYSTOSCOPY(.) CYSTOSCOPY(.) Comments Last Modified By: Ramon Cali Terry T 04/03/25 13:08:26 04/03/25 13:08:26 Perioperative Protocols FT Pre-Care Text: Implements protective measures prior to operative or invasive procedure, confirms identity before the operative or invasive procedure, verifies operative procedure, surgical site, and laterality Entry 1 Procedure(s) CYSTOSCOPY(.) Patient Identity Birthday, ID Band Verified (select at Check, Patient least 2): Participation Consents / H and P Anesthesia Consent, Operative Site N/A Verified H&P, Surgery/Procedure Marking Verified Consent Surgical Site Yes Laterality Verified n/a Verified Procedure Verified Yes Correct Patient Yes Position Verified Availability Equipment, Medication Prep Dry n/a Verified (If Applicable) PreOp Antibiotic Yes Time Out [place] CAA, Phoenix C., Xavier Lundberg MD, Sumaya Nguyễn, Demetria Stein Ii, [place] CST, Kimberly A Time Out Complete 04/03/25 12:36:00 Outcomes Met? Yes Last Modified By: Ramon Cali 04/03/25 13:08:55 Post-Care Text: The patient is free from signs and symptoms of injury caused by extraneous objects Allergy Information FT Pre-Care Text: Verifies allergies Entry 1 Allergies Reviewed? Yes Allergies Reviewed Self/Patient With Outcomes Met? Yes Last Modified By: Ramon Cali 04/03/25 13:04:17 Post-Care Text: The patient received appropriate medication(s) safely administered during the perioperative period Surgical Procedures FT Entry 1 Procedure Description Procedure CYSTOSCOPY Modifiers . Surgeon Description HYDRO DISTENTION, INSTALLATION OF BLADDER COCKTAIL Primary Procedure Yes Primary Surgeon Sumaya Park MD Start 04/03/25 12:37:00 Stop 04/03/25 12:48:00 Anesthesia Type General Surgical Service Urology Wound Class 2 - Clean-Contaminated Last Modified By: Ramon Cali 04/03/25 13:04:27 General Case Data FT Pre-Care Text: Classifies surgical wound, implements aseptic technique, initiates traffic control Entry 1 Case Information OR OR 1 FT Case Level Level 3 Wound Class 2 - Clean-Contaminated Specialty Urology ASA Class 2 Preop Diagnosis INNERSTITIAL CYSTITIS Postop Same As Preop Yes Postop Diagnosis INNERSTITIAL CYSTITIS Outcomes Met? Yes Last Modified By: Светлана Cervantes CST 04/04/25 13:55:17 Post-Care Text: The patient is free from signs and symptoms of infection Skin Assessment (Pre Procedure) FT Pre-Care Text: Implements protective measures to prevent skin/ tissue injury due to thermal or mechanical sources Evaluates for signs and symptoms of physical injury to skin and tissue Entry 1 Skin Integrity Intact, [place]ink[place], Warm, & Skin Abnormality No Dry Outcomes Met? Yes Last Modified By: Ramon Cali 04/03/25 13:04:40 Post-Care Text: The patient is free from signs and symptoms of injury caused by extraneous objects Patient Positioning FT Pre-Care Text: Identifies physical alterations that require additional precautions for procedure-specific positioning, verifies presence of prosthetics or corrective devices, positions the patient, evaluates the patient for signs and symptoms of injury as a result of positioning Entry 1 Procedure CYSTOSCOPY(.) Body Position Low Lithotomy Feet Uncrossed? Yes Left Arm Position Resting at Side Right Arm Position Resting at Side Left Leg Position Secured in Stirrup Right Leg Position Secured in Stirrup Positioning Device Torstenrupaco Moreno (more content not included)...[facility] CampusDischarge Instructions on 70-51-0515Pplszftes InstructionsDischarge Instructions MILADIS DOUGHERTY :1995 Visit Date:04/03/2025 Inpatient Discharge Instructions Your Care Team Admitting Physician - Sumaya Park MD Referring Physician - Sumaya Park MD Reason for Your Visit INNERSTITIAL CYSTITIS Your Diagnosis Interstitial cystitis This Is Your Medications List oxybutynin (oxybutynin 5 mg Tab) Procedure History Excision of cyst, fibroadenoma, or other benign or malignant tumor, aberrant breast tissue, duct lesion, nipple or areolar lesion (except ), open, male or female, 1 or more lesions (11/01/2020),Esophagogastroduodenoscopy (04/14/2019), Laparoscopy (2018), Colonoscopy (02/25/2015), wisdom teethremoved x4 (2010), Breast lump. What to do next Instructions From Your Doctor Event Name Event Result Discharge Activity Ambulate as tolerated, Resume normal activities in 24 hours, Expect mild pain, Expect minimal amount of drainage and/or bleeding, Activity as tolerated Discharge Restrictions No driving for 24 hrs Discharge Diet(s) Regular Call Your Doctor For Persistent or heavy bleeding, Temperature above 101.5 degrees, Severe pain at the operative site, Persistent vomiting Discharge Instructions Discharge Instructions New Follow Up Appointments after Discharge Follow Up with Sumaya Park When: Comments: Office to call to schedule your follow up in 2-4 weeks Where: [facility], [address] [phone] [phone] Business (1) Medications What How Much When Why Instructions Next Dose Unchanged oxybutynin (oxybutynin 5 mg Tab) 1 Tablets By Mouth 3 times a day as needed for for urinary discomfort Interstitial cystitis Test Results No qualifying data available. Allergies Bactrim (hives) Problems Ongoing - Any problem that you are currently receiving treatment for. Abnormal mammogram Allergic rhinitis Bladder pain BMI 28.0-28.9,adult Breast discharge Breast lump or mass Breast mass Breast pain, right Chest tightness Chronic female pelvic pain Diarrhea Duplicated ureter, right Dysuria Fainting episodes Fatigue Febrile seizures Frequent urination Frequent UTI Gross hematuria History of kidney stones IBS (irritable bowel syndrome) Interstitial cystitis Irregular menses Kidney stone Left lower quadrant abdominal pain Lymphadenopathy Menorrhagia Nipple discharge Other nail disorders Over weight Pelvic congestion syndrome Serous otitis media Shortness of breath SHAE (stress urinary incontinence, female) Thyromegaly UTI (urinary tract infection) Vaginal discharge Viral syndrome Vitamin D deficiency Historical - Any problem that you are no longer receiving treatment for. Adult BMI 27.0-27.9 kg/sq m Adult body mass index 28.0-28.9 Gilbert syndrome Education Materials Hydrodistention of the Bladder, Care After After hydrodistention of the bladder, it is common to have soreness and mild discomfort in your lower belly. It is also common to have: ??? Mild pain when you pass urine. This should stop after a few minutes. This may last for up to a week. ??? A small amount of blood in your urine. Follow these instructions at home: The instructions below may help you care for yourself at home. Your health care provider may give you more instructions. If you have questions, ask your health care provider. Medicines ??? If you were given a sedative during your procedure, do not drive or use machines until your doctor says that it is safe. A sedative is a medicine that helps you relax. ??? Take iqwf-mzb-nipjbiz and prescription medicines only as told by your health care provider. ??? If you were prescribed antibiotics, take them as told by your doctor. Do not stop taking them even if you start to feel better. Lifestyle ??? Do not smoke or use any products that contain nicotine or tobacco. If you need help quitting, ask your health care provider. Activity ??? Return to your normal activities when your health care provider says that it is safe. ??? You may have to avoid lifting. Ask your health care provider how much you can safely lift. Eating and drinking ??? Follow instructions from your health care provider about what you may eat and drink. ??? Drink enough fluid to keep your urine pale yellow. General instructions ??? Keep all follow-up visits. This is important to get the results of your procedure. Contact a health care provider if: ??? You have blood clots in your urine. ??? You have pus in your urine. ??? You have pain that gets worse or does not get better with medicine. Do this especially for pain when you urinate. ??? You have difficulty passing urine. ??? You feel like you will vomit or you vomit for more than 2 days after the procedure. ??? You have a fever. G (more content not included)...[facility] CampusComment on above:Result Comment: Electronically Signed By: Annalise ALVAREZ, Liliana Morfin\.br\Date and Time Signed: 04/03/25 13:29 EDTInpatient Patient Summaryon 04-03-2025 Inpatient Patient SummaryInpatient Patient Summary [place] [id number] [facility] Clinical Discharge Instructions PERSON INFORMATION Name: MILADIS DOUGHERTY PHYSICIANS Admitting Physician: Sumaya Park MD Attending Physician: Sumaya Park MD PCP: Dia Ware Discharge Diagnosis: Interstitial cystitis Comment: PATIENT EDUCATION INFORMATION Instructions: Hydrodistention of the Bladder, Care After Medication Leaflets: Follow up: With: Address: When: Sumaya Park [address] [place] [phone] [facility] (1) Comments: Office to call to schedule your follow up in 2-4 weeks MEDICATION LIST Comment:[facility] PAC[facility] I Recordon [id number] OR PACU I RecordMain OR PACU I Record PACU Phase I Document Type FT Summary Primary Physician: Sumaya Park MD Finalized Date/Time: 04/03/25 13:54:08 Pt. Name: MILADIS DOUGHERTY D.O.B./Sex: 1995 Female Med Rec #: [id number] Physician: Sumaya Park MD Financial #: [id number] Pt. Type: A Room/Bed: [place] [address] Admit/Disch: 04/03/25 09:11:53 - Institution: Case Times PACU I FT Pre-Care Text: Identifies barriers to communication and implements measures to provide psychological support Develops individualized plan of care, and ensures continuity of care Maintains patient's dignity and privacy, and maintains patient confidentiality Identifies and reports philosophical, cultural, and spiritual beliefs and values Identifies individual values and wishes concerning care Implements aseptic technique, and administers prescribed antibiotic therapy and immunizing agents as ordered Evaluates postoperative tissue perfusion Implements thermoregulation measures, and monitors body temperature Evaluates postoperative respiratory status Evaluates postoperative cardiac status Evaluates postoperative neurological status Assesses pain control, collaborated in initiating patient-controlled analgesia and implements alternative methods of pain control Verifies allergies, administers prescribed medications and solutions, evaluates response to medications Entry 1 In PACU I 04/03/25 12:54:00 Discharge from PACU 04/03/25 13:40:00 I Outcomes Met? Yes Last Modified By: Glo Rojas RN 04/03/25 13:53:56 Post-Care Text: The patient demonstrates knowledge of the expected response to the operative or invasive procedure The patient's care is consistent with the individualized perioperative plan of care The patient's rightto privacy is maintained The patient's value system, lifestyle, ethnicity, and culture are considered, respected, and incorporated into the perioperative plan of care The patient participates in decisions affecting his or her perioperative plan of care The patient is free from signs and symptoms of infection The patient has wound/tissue perfusion consistent with or improved from baseline levels established preoperatively The patient is at or returning to normothermia at the conclusion of the immediate postoperative period The patient's respiratory function is consistent with or improved from baseline levels established preoperativelyThe patient's cardiovascular status is consistent with or improved from baseline levels established preoperatively The patient's cardiovascular status is consistent with or improved from baseline levels established preoperatively The patient demonstrates and/or reports adequate pain control throughout the perioperative period The patient received appropriate medication(s), safely administered during the perioperativeperiod Acuity Level PACU I FT Entry 1 Start Time 04/03/25 12:54:00 Stop Time 04/03/25 13:40:00 Acuity Level Acuity Level I Last Modified By: Glo Rojas RN 04/03/25 13:54:06 Finalized By: Glo Rojas RN Document Signatures Signed By: Glo Rojas RN 04/03/25 13:54NoNidia [facility] II Recordon [id number] OR PACU II RecordMain OR PACU II Record PACU Phase II Document Type FT Summary Primary Physician: Sumaya Park MD Finalized Date/Time: 04/03/25 14:54:04 Pt. Name: MILADIS DOUGHERTY Julio C /Sex: 1995 Female Med Rec #: [id number] Physician: Sumaya Park MD Financial #: [id number] Pt. Type: A Room/Bed: [place] [address] Admit/Disch: 04/03/25 09:11:53 - Institution: Case Times PACU II FT Pre-Care Text: Identifies barriers to communication and implements measures to provide psychological support and determines knowledge level Develops individualized plan of care, and ensures continuity of care Maintains patient's dignity and privacy, and maintains patient confidentiality Identifies and reports philosophical, cultural, and spiritual beliefs and values Identifies individual values and wishes concerning care administers prescribed antibiotic therapy and immunizing agents as ordered, Evaluates postoperative tissue perfusion Implements thermoregulation measures, and monitors body temperature Evaluates postoperative respiratory statusEvaluates postoperative cardiac status Evaluates postoperative neurological status Assesses pain control, collaborated in initiating patient-controlled analgesia and implements alternative methods of pain control Verifies allergies, administers prescribed medications and solutions, evaluates response to medications Entry 1 In PACU II 04/03/25 13:40:00 Discharge from PACU 04/03/25 14:40:00 II Outcomes Met? Yes Last Modified By: Liliana Woody RN 04/03/25 14:53:36 Post-Care Text: The patient demonstrates knowledge of the expected response to the operative or invasive procedure The patient's care is consistent with the individualized perioperative plan of care The patient's rightto privacy is maintained The patient's value system, lifestyle, ethnicity, and culture are considered, respected, and incorporated into the perioperative plan of care The patient participates in decisions affecting his or her perioperative plan of care. The patient is free from signs and symptoms of infection The patient has wound/tissue perfusion consistent with or improved from baseline levels established preoperatively The patient is at or returning to normothermia at the conclusion of the immediate postoperative period The patient's respiratory function is consistent with or improved from baseline levels established preoperativelyThe patient's cardiovascular status is consistent with or improved from baseline levels established preoperatively The patient's neurological status is consistent with or improved from baseline levels established preoperatively The patient demonstrates and/or reports adequate pain control throughout the perioperative period The patient received appropriate medication(s), safely administered during the perioperativeperiod Finalized By: Liliana Woody RN Document Signatures Signed By: Liliana Woody RN 04/03/25 14:54NoGen[facility] HospitalMain OR Preoperative Recordon [id number] OR Preoperative RecordMain OR Preoperative Record PreOp Document Type FT Summary Primary Physician: Sumaya Park MD Finalized Date/Time: 04/03/25 12:45:26 Pt. Name: MILADIS DOUGHERTY Julio C BruceB./Sex: 1995 Female Med Rec #: [id number] Physician: Sumaya Park MD Financial #: [id number] Pt. Type: A Room/Bed: [place] [address] Admit/Disch: 04/03/25 09:11:53 - Institution: Case Times PreOp FT Pre-Care Text: Verifies consent for planned procedure, identifies individual values and wishes concerning care, includes family members in perioperative teaching Entry 1 Patient Times. In Pre Surgery 04/03/25 09:20:00 Out Pre Surgery 04/03/25 12:23:00 Outcomes Met? Yes Last Modified By: Demetria Stein Ii 04/03/25 12:45:25 Post-Care Text: The patient participates in decisions affecting his or her perioperative plan of care Finalized By: Demetria Stein Ii Document Signatures Signed By: Demetria Stein Ii 04/03/25 12:45NoGenesis HospitalOperative Reporton [id number] ReportOperative Report Patient: MILADIS DOUGHERTY Age: 29 years Sex: Female : 1995 Associated Diagnoses: None Author: Sumaya Park MD Procedure Procedure Date: 04/03/2025. Confirmed: patient, procedure, site, safety procedures followed. Performed by: Sumaya Park MD, anesthesiologist (VIDYA Landaverde). Type of procedure: Cystoscopy, hydrodistention, instillation of bladder cocktail for interstitial cystitis . Informed consent: signed by patient. Indication: Indication: 29-year-old female with a history of interstitial cystitis presents today for cystoscopy, hydrodistention and instillation of bladder cocktail after discussion of risk, benefits, management options and alternatives. Risks were discussed including but not limited to bleeding,pain, infection, damage to surrounding structures and need for additional procedures. . Findings: No Hunner's lesions, bladder tumors or lesions. No trabeculations. Bladder capacity 600 cc, held for 2 minutes at 70 cmH2O. Diffuse mild glomerular bleeding after decompression. Instillation of 50 mL DMSO, 20,000 units of heparin, 50 Dari of sodium bicarbonate, 10 mg of triamcinolone, total 100 ml. Procedure tolerated: well. Specimen: none. Complications: none. PROCEDURE IN DETAIL: After the risks, benefits, indications, alternatives and expectations of the procedure were reviewed with the patient and informed consent was obtained, the patient was taken to operative suite and placed in the supine position. Sequential compression devices were placed on bilateral lower extremities. General anesthesia LMA was induced and the patient was transitioned to the lithotomy position and prepped and draped in the usual sterile fashion for cystoscopy. A preoperative dose of antibiotics was given. A timeout was observed prior to initiating the procedure. Lidocaine gel was inserted into the urethra and bladder. We began the procedure using a 22.5 [place] rigid cystoscope, 30 degree lens, and inserted this intothe bladder without any issue. We noted a normal appearance of the urethra en route to the bladder,findings as above. Once inside the bladder, a cystoscopic examination revealed no bladder tumors, lesions, stones or foreign bodies. Bilateral ureteral orifices were orthotopic and patent, right adjacent UO, orthotopic UO was patulous. With a pressure of 70 cm H2O, the bladder was filled until visible capacity at near 600 cc. This was held for 2 minutes. The bladder was drained and the mucosa evaluated noting diffuse glomerulations. Bladder cocktail prepared by pharmacy as above was instilled through the cystoscope and the cystoscope removed. The procedure was then concluded and the patient was awakened from general anesthesia and sent to the PACU in satisfactory condition. CULTURES TAKEN: none PATIENT CONDITION: Stable and extubated PLAN: Void after 30 minutes. Follow-up in 2-4 weeks for evaluation of symptoms. . Impression and Plan Diagnosis Interstitial cystitis ([id number] N30.10, Discharge, Medical). Diagnosis Interstitial cystitis ([id number] N30.10, Discharge, Medical).[facility] CampusComment on above:Result Comment: Electronically Signed By: Xavier PAGE, Sumaya Nguyễn\.br\Date and Time Signed: 04/03/25 13:03EDTOutpatient Surgery Discharge Instructionon [id number] Surgery Discharge InstructionOutpatient Surgery Discharge Instruction [place] [id number] Patient Discharge Instructions PERSON INFORMATION Name: MILADIS DOUGHERTY Date of : 1995 Current Date: 04/03/2025 12:56:59 PHYSICIANS Admitting Physician: Sumaya Park MD Discharge Diagnosis: Interstitial cystitis MILADIS DOUGHERTY has been given the following list of follow-up instructions, prescriptions, andpatient education materials: PATIENT FOLLOW-UP INFORMATION Diet: Regular Discharge Activity: Ambulate as tolerated, Resume normal activities in 24 hours, Expect mild pain, Expect minimal amount of drainage and/or bleeding, Activity as tolerated Discharge Restrictions: No driving for 24 hrs Call Your Doctor For: Persistent or heavy bleeding, Temperature above 101.5 degrees, Severe pain atthe operative site, Persistent vomiting IF UNABLE TO CONTACT YOUR PHYSICIAN AND YOU FEEL IT IS AN EMERGENCY, GO TO THE NEAREST EMERGENCY ROOM OR CALL 911 ILADONNA LAUREN A, have received the attached patient education materials/instructions and have verbalized understanding: May we do a follow up call? Yes No I was present when discharge instructions were given Patient Signature Date Clinican/Nurse Signature Date Follow up: With: Address: When: Sumaya Park [facility] [address] [place], [place] [address], [address] [phone] Business (1) Comments: Office to call to schedule your follow up in 2-4 weeks Pharmacy Information: You may receive a survey from [employer] asking you to rate your care experience. Your feedback is important and will help us understand what we do well and how we can improve the quality of care we provide to you, your loved ones and our community. It???s an honor to serve you. Thank you for choosing [facility] HERE ARE THE MEDICATION CHANGES THAT OCCURRED DURING YOUR HOSPITAL STAY PATIENT EDUCATION INFORMATION Instructions: Hydrodistention of the Bladder, Care After After hydrodistention of the bladder, it is common to have soreness and mild discomfort in your lower belly. It is also common to have: ??? Mild pain when you pass urine. This should stop after a few minutes. This may last for up to a week. ??? A small amount of blood in your urine. Follow these instructions at home: The instructions below may help you care for yourself at home. Your health care provider may give you more instructions. If you have questions, ask your health care provider. Medicines ??? If you were given a sedative during your procedure, do not drive or use machines until your doctor says that it is safe. A sedative is a medicine that helps you relax. ??? Take vyry-rzq-thmszyj and prescription medicines only as told by your health care provider. ??? If you were prescribed antibiotics, take them as told by your doctor. Do not stop taking them even if you start to feel better. Lifestyle ??? Do not smoke or use any products that contain nicotine or tobacco. If you need help quitting, ask your health care provider. Activity ??? Return to your normal activities when your health care provider says that it is safe. ??? You may have to avoid lifting. Ask your health care provider how much you can safely lift. Eating and drinking ??? Follow instructions from your health care provider about what you may eat and drink. ??? Drink enough fluid to keep your urine pale yellow. General instructions ??? Keep all follow-up visits. This is important to get the results of your procedure. Contact a health care provider if: ??? You have blood clots in your urine. ??? You have pus in your urine. ??? You have pain that gets worse or does not get better with medicine. Do this especially for painwhen you urinate. ??? You have difficulty passing urine. ??? You feel like you will vomit or you vomit for more than 2 days after the procedure. ??? You have a fever. Get help right away if: ??? You have very bad pain in your belly. ??? You cannot pass urine. ??? You have chest pain or it is hard to breathe. ??? You get swelling, pain, or both in your lower legs. These symptoms may be an emergency. Get help right away. Call 911. ??? Do not wait to see if the symptoms will go away. ??? Do not drive yourself to the hospital. Summary ??? After this procedure, it is common to have soreness in your lower belly, mild pain when you pass urine, and a small amount of blood in your urine. ??? Return to your normal activities when your health care prov (more content not included)...[facility] CampusBMPon [id number] gap [Moles/Vol]12 mmol/LNormal6-16[facility] HospitalComment on above: Performed By: #### [id number] #### [facility] [address] [place], [place] [address]LLM/Creat Ratio15 No VkeciFntafk81-77UiabthMiami Valley HospitalComment on above:Performed By: #### [id number] #### [facility] [address] [place], [place] [address]Iaxihrp [Mass/Vol]9.4 mg/dLNormal8.9-11.1FShelby Memorial HospitalComment on above:Performed By: #### [id number] #### [facility] [address], [place] [address]Eratuhax [Moles/Vol]105 mmol/LTuonxa222-038OnddhbMiami Valley HospitalComment on above:Performed By: #### [id number] #### [facility] [address], [place] [address]WT9 [Moles/Vol]24 mmol/LZvvplu18-31EhxvwmMiami Valley Hospital Comment on above:Performed By: #### [id number] #### [facility] [address], [place] [address]Vqlngeoajc [Mass/Vol]0.6 mg/dLNormal0.5-1.3FShelby Memorial HospitalComment on above:Performed By: #### [id number] #### [facility] [address], [place] [address]Umatjhr [Mass/Vol]81 mg/mNMnnrsu44-249FyqwmcMiami Valley HospitalComment on above:Performed By: #### [id number] #### [facility] [address] [place], [place] [address]Dnflvfiwn [Moles/Vol]3.4 mmol/LLow3.5-5.3FShelby Memorial HospitalComment on above:Performed By: #### [id number] #### [facility] [address], [place] [address]Hdhxoh [Moles/Vol]138 mmol/XJwnrir247-820JhtnrmMiami Valley HospitalComment on above:Performed By: #### [id number] #### [facility] [address] [place] [address]Citl nitrogen [Mass/Vol]9 mg/dLNormal5-21[facility] HospitalComment on above:Performed By: #### [id number] #### [facility] [address] [place] [address]JDD w/ Auto Diffon [id number] Absolute0.0 E9/LNormal 0.0-0.2FShelby Memorial HospitalComment on above:Performed By: #### [id number] #### [facility] [address] [place] [address]Ufxithaeo/100 WBC (Bld)0.2 %Normal0.0-2.0[facility] HospitalComment on above:Performed By: #### [id number] #### [facility] [address] [place] [address]Mfy Absolute0.0 E9/LNormal0.0-0.5FShelby Memorial Hospital Comment on above:Performed By: #### [id number] #### [facility] [address] [place] [address]Kylxzskulwz/100 WBC (Bld)0.6 %Normal0.0-8.0[facility] HospitalComment on above:Performed By: #### [id number] #### [facility] [address] [place] [address]Vukehulwhvi distribution width (RBC) [Ratio]13.5 %Normal 10.9-14.2FShelby Memorial HospitalComment on above:Performed By: #### [id number] #### [facility] [address] [place] [address]Ebwheoqgvy (Bld) [Volume fraction]42.9 %Skicpj45.0-46.0[facility] HospitalComment on above:Performed By: #### [id number] #### [facility] [address], [place] [address]Wmbdkjouas (Bld) [Mass/Vol]14.5 g/bADgnwtk42.0-16.0[facility] HospitalComment on above:Performed By: #### [id number] #### [facility] [address], [place] [address]Nubok Absolute1.6 E9/LNormal1.0-4.0[facility] Comment on above:Performed By: #### [id number] #### [facility] [address], [place] [address]Awclkuoqjuw/100 WBC (Bld)19.4 %Kkchte00.0-50.0[facility] HospitalComment on above:Performed By: #### [id number] #### [facility] [address] [place] [address]UBK (RBC) [Entitic mass]29.2 eyKtffif09.0-34.0[facility] HospitalComment on above:Performed By: #### [id number] #### [facility] [address] [place] [address]HMAG (RBC) [Mass/Vol]33.8 g/rLBrglyo47.4-36.0[facility] HospitalComment on above:Performed By: #### [id number] #### [facility] [address] [place] [address]KPR (RBC) [Entitic vol]86.4 sRAvuxse04.0-100.0[facility] HospitalComment on above:Performed By: #### [id number] #### [facility] [address] [place] [address]Brxk Absolute0.4 E9/LNormal0.2-1.0[facility] Comment on above:Performed By: #### [id number] #### [facility] [address], [place] [address]Ydmvtpxoj/100 WBC (Bld)4.4 %Normal4.0-14.0[facility] HospitalComment on above:Performed By: #### [id number] #### [facility] [address], [place] [address]Zvjpri Absolute6.2 E9/LNormal2.0-7.5FShelby Memorial Hospital Comment on above:Performed By: #### [id number] #### [facility] [address], [place] [address]Jufuxz Auto75.4 %High36.0-75.0[facility] Comment on above:Performed By: #### [id number] #### [facility] [address], [place] [address]Dgjqmtgx636.0 E9/ZWwldbe241.0-500.0[facility] Comment on above:Performed By: #### [id number] #### [facility] [address] [place], [place] [address]Cipwhanb mean volume (Bld) [Entitic vol]9.0 fLNormal6.4-10.8 [facility] HospitalComment on above:Performed By: #### [id number] #### [facility] [address] [place], [place] [address]GSB4.0 E12/LNormal4.3-5.9[facility] HospitalComment on above:Performed By: #### [id number] #### [facility] [address] [place], [place] [address]UHH6.2 E9/LNormal4.0-11.0[facility] HospitalComment on above:Performed By: #### [id number] #### [facility] [address], [place] [address]E BetaHcg Qualon 03-26-2025U beta hCG QlNegativeNormalMiami Valley HospitalComment on above:Performed By: #### [id number] #### [facility] [address], [place] [address]NG with Cult Rflxon 37-78-2726Xcucs (U)Light-YellowNormalYellow [facility] HospitalComment on above:Result Comment: Microscopic readings are only performed on those samples that meet specific criteria set forth by [facility].Performed By: #### [id number] ####[address]Glucose (U) [Mass/Vol]NegativeNormalNegativeMiami Valley HospitalComment on above: Performed By: #### [id number] ####[address]Ketones Ql (U)1+ mg/dLAbnormalNegativeMiami Valley HospitalComment on above:Performed By: #### [id number] ####[address]UA BloodTraceAbnormal NegativeMiami Valley HospitalComment on above:Performed By: #### [id number] ####[address] [address]MB ClarityClearNormalClearMiami Valley HospitalComment on above: Performed By: #### [id number] ####[address]UA Leuk EstNegativeNormalNegativeMiami Valley HospitalComment on above:Performed By: #### [id number] ####[address]UA NitriteNegative NormalNegativeMiami Valley HospitalComment on above:Performed By: #### [id number] ####[address] [address]HM pH5.5Invalid Interpretation Code5.0-9.0[facility] Comment on above:Performed By: #### [id number] ####[address]UA ProteinNegativeNormalNegativeMiami Valley HospitalComment on above:Performed By: #### [id number] ####[facility] [address] [facility], [id number] Spec Grav1.022 Invalid Interpretation Code1.005-1.030[facility] HospitalComment on above:Performed By: #### [id number] ####[facility] [address] [facility], [id number] UrobilinogenNegativeNormalNegative [facility] HospitalComment on above:Performed By: #### [id number] ####[facility] Dqgllpm[address]732 [facility], [id number] Urobilinogen (U) [Mass/Vol]NegativeDriftNegativeMi[facility] Comment on above:Performed By: #### [id number] ####[facility] [address] [facility], [id number] Spec DescClean CatchNoGenesis HospitalComment on above:Performed By: #### [id number] ####[facility] Taytmz[address]151 [facility], [id number] 03-26-2025 tCSL018 mL/min/1.73 t1Lcflln>=59[facility] Valley HospitalComment on above: Performed By: #### [id number] #### [facility] [address] [place], [place] [address]Rqhxwzao Note - PTon [id number] Note - PTNonvisit Note - PT Chart reviewed with eval prepped for scheduled eval. [facility]-26-2025H&P UpdateH&P Update Patient: MILADIS DOUGHERTY Age: 29 years Sex: Female : 1995 Associated Diagnoses: None Author: Xavier PAGE, Sumaya Nguyễn Basic Information I have reviewed prior notes, spoke with patient, no changes to history. Patient elects to proceed with surgery as planned. Health Status Procedure history: Breast duct excision () on 11/01/2020 at 25 Years. Esophagogastroduodenoscopy ([id number]) on 04/14/2019 at 23 Years. Laparoscopy ([id number]) in 2019 at 22 Years. 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 wisdom teeth removed x4 in 2010 at 14 Years. Social History Social & Psychosocial Habits Alcohol 01/05/2025 Risk Assessment: Denies Alcohol Use 01/05/2025 Frequency: 1-2 times per year 01/05/2025 Use: Current Type: Beer Frequency: 1-2 times per year 01/05/2025 Frequency: 1-2 times per year Use: Current Comment: every couple months - 07/15/2024 19:13 - Opper Jessa ALVAREZ Substance Abuse 01/05/2025 Risk Assessment: Denies Substance Abuse Tobacco 01/05/2025 Risk Assessment: Denies Tobacco Use 01/05/2025 Tobacco Use: Never (less than 100 in l Smokeless tobacco use: Never 02/08/2025 Tobacco Use: Never (less than 100 in l Smokeless tobacco use: Never . Allergies: Allergic Reactions (Selected) Severity Not Documented Bactrim- Hives. Current medications: (Selected) Prescriptions Prescribed hydrOXYzine hydrochloride 25 mg Tab: 25 mg = 1 tab(s), Oral, Bedtime, # 30 tab(s), Refills(s) 11, Pharmacy: [facility]/pharmacy #[id number], 162, cm, 02/08/25 11:05:00 EDT, Height/Length Dosing, 71.7, kg, 02/08/25 11:05:00 EDT, Weight Dosing mirabegron 25 mg oral tablet, extended release: 25 mg = 1 tab(s), Oral, Daily, # 30 tab(s), Refills(s) 11, Pharmacy: [facility]/pharmacy #[id number], 162, cm, 02/08/25 11:05:00 EDT, Height/Length Dosing, 71.7, kg, 02/08/25 11:05:00 EDT, Weight Dosing Problem list: All Problems Abnormal mammogram / SNOMED CT 969126483 / Confirmed Allergic rhinitis / SNOMED CT 695034698 / Confirmed Bladder pain / SNOMED CT 8704881293 / Confirmed BMI 28.0-28.9,adult / SNOMED CT 3178884636 / Confirmed Breast discharge / SNOMED CT 829390500 / Confirmed Breast lump or mass / SNOMED CT 032211008 / Confirmed Breast mass / SNOMED CT 500873710 / Confirmed Breast pain, right / SNOMED CT 9108838234 / Confirmed Chest tightness / SNOMED CT 464051389 / Confirmed Chronic female pelvic pain / SNOMED CT 385245621 / Confirmed Diarrhea / SNOMED CT 716881637 / Confirmed Duplicated ureter, right / SNOMED CT 56298947 / Confirmed Dysuria / SNOMED CT 72412692 / Confirmed Fainting episodes / SNOMED CT 445408257 / Confirmed Fatigue / SNOMED CT 743385530 / Confirmed Febrile seizures / SNOMED CT 44230259 / Confirmed Frequent urination / SNOMED CT 682429416 / Confirmed Frequent UTI / SNOMED CT 156684301 / Confirmed Gross hematuria / SNOMED CT 931089891 / Confirmed History of kidney stones / SNOMED CT 9293847504 / Confirmed IBS (irritable bowel syndrome) / SNOMED CT 20704036 / Confirmed Interstitial cystitis / SNOMED CT 6024838699 / Confirmed Irregular menses / SNOMED CT 010E33ML-[id number] / Confirmed Kidney stone / SNOMED CT 669248372 / Confirmed Left lower quadrant abdominal pain / SNOMED CT 977404577 / Confirmed Lymphadenopathy / SNOMED CT 88447441 / Confirmed Menorrhagia / SNOMED CT 0168873924 / Confirmed Nipple discharge / SNOMED CT 800098313 / Confirmed Other nail disorders / SNOMED CT 4558158805 / Confirmed Over weight / SNOMED CT 332896491 / Confirmed Pelvic congestion syndrome / SNOMED CT 44363718 / Confirmed Serous otitis media / SNOMED CT 908400595 / Confirmed Shortness of breath / SNOMED CT 028388237 / Confirmed SHAE (stress urinary incontinence, female) / SNOMED CT 966136499 / Confirmed Thyromegaly / SNOMED CT 4285373 / Confirmed UTI (urinary tract infection) / SNOMED CT 574835694 / Confirmed Vaginal discharge / SNOMED CT 842064693 / Confirmed Viral syndrome / SNOMED CT 03543092 / Confirmed Vitamin D deficiency / SNOMED CT 08457063 / Confirmed Resolved: Adult BMI 27.0-27.9 kg/sq m / SNOMED CT 6666132766 Resolved: Adult body mass index 28.0-28.9 / SNOMED CT 8519578358 Resolved: Gilbert syndrome / SNOMED CT 05502770 Resolved: / SNOMED CT 250665261 Canceled: Adult BMI 26.0-26.9 kg/sq m / SNOMED CT 3885881997 Canceled: BMI 25.0-25.9,adult / SNOMED CT 1666845503 Canceled: Fullness of breast / SNOMED CT 094206008 Canceled: Infection following a procedure, superficial incisional surgical site, sequela / SNOMED CT 758744031 Canceled: Mammogram abnormal / SNOMED CT 484379208 Canceled: Overweight (BMI 25.0-29.9) / SNOMED CT 4140366345 Canceled: UTI symptoms / SNOMED CT 650535558[facility]ckmnjTmosxvSt[facility] Comment on above:Result Comment: Electronically Signed By: Xavier PAGE, Sumaya Nguyễn\.br\Date and Time Signed: 02/26/25 08:13EDTInpatient Patient Summaryon [id number] Patient SummaryInpatient Patient Summary [place] [address] Clinical Summary Person Information Name: MILADIS DOUGHERTY Age: 29 Years : 1995 Sex: Female PCP: Dia Ware Marital Status: Race: White Ethnicity: Non- or Language: Iranian Visit Id: Visit Reason: GROSS HEMATURIA, INTERSTITIAL CYSTITIS Speciality: Acuity: Enc Type: Outpatient Med Service: Surgery Arrival: 02/26/2025 07:21:19 Discharge: Dispo Type: Address: [address] [place] [phone] Provider Notes: Diagnosis: High-tone pelvic floor dysfunction in female; Interstitial cystitis; OAB (overactive bladder) Problems Active Interstitial cystitis Kidney stone Duplicated ureter, right History of kidney stones SHAE (stress urinary incontinence, female) Frequent urination Gross hematuria Left lower quadrant abdominal pain UTI (urinary tract infection) Bladder pain Frequent UTI BMI 28.0-28.9,adult Over weight Breast mass Lymphadenopathy Nipple discharge Breast pain, right Vitamin D deficiency Abnormal mammogram Chest tightness Thyromegaly Shortness of breath Fatigue Breast discharge Breast lump or mass Serous otitis media IBS (irritable bowel syndrome) Diarrhea Pelvic congestion syndrome Febrile seizures Fainting episodes Other nail disorders Allergic rhinitis Vaginal discharge Dysuria Chronic female pelvic pain Menorrhagia Viral syndrome Irregular menses Smoking Status: Functional Status: Sensory Deficits: History of Falls: Mobility Assistance Prior to Admission: ADLs: Current Level of Assistance for Self-Care/Mobility: Cognitive Status: Allergies Bactrim (hives) Laboratory or Other Results This Visit (last charted value for your 02/26/2025 visit) No Laboratory or Other Results This Visit Measurements: Height: Weight: Blood Pressure: Not Valued / Not Valued BMI: Procedures No Procedures Performed or Documented Immunizations No Immunizations Documented This Visit Final Med List: hydrOXYzine (hydrOXYzine hydrochloride 25 mg Tab) 1 Tablets By Mouth at bedtime. Refills: 11. mirabegron (mirabegron 25 mg oral tablet, extended release) 1 Tablets By Mouth every day. Refills: 11. Care Team Members: Attending Physician: Sumaya Park MD Consulting Physician: Referring Physician: Sumaya Park MD Follow up: With: Address: When: Sumaya Park [address] [place] [phone] Business (1) Comments: Office will schedule hydrodistention with instillation of bladder cocktail Patient Education Information: EU - Cystoscopy Discharge Instructions (CUSTOM)[facility] Main OR Intraoperative Recordon [id number] OR Intraoperative RecordMain OR Intraoperative Record IntraOp Document Type FTURO Summary Primary Physician: Sumaya Park MD Finalized Date/Time: 02/26/25 08:24:04 Pt. Name: BELLADejonMILADIS D.O.B./Sex: 1995 Female Med Rec #: [id number] Physician: Sumaya Park MD Financial #: [id number] Pt. Type: O Room/Bed: / Admit/Disch: 02/26/25 07:21:19 - Institution: Case Times FTURO Entry 1 Patient Times In Room 02/26/25 08:13:00 Out Room 02/26/25 08:23:00 Procedure Times Start 02/26/25 08:15:00 Stop 02/26/25 08:19:00 Anesthesia Times Last Modified By: Iwona Soler 02/26/25 08:23:53 Case Attendance FTURO Entry 1 Entry 2 Entry 3 Case Attendee Xavier PAGE, Iwona Thomas PROPOSITION PLAYER, Joseline Bunch Role Performed Surgeon - Primary Food Handler - Primary Scrub - Primary Time In 02/26/25 08:13:00 02/26/25 08:13:00 02/26/25 08:13:00 Time Out 02/26/25 08:23:00 02/26/25 08:23:00 02/26/25 08:23:00 Procedure CYSTOSCOPY LOCAL(.) CYSTOSCOPY LOCAL(.) CYSTOSCOPY LOCAL(.) Comments Last Modified By: Iwona Soler Kelsie E Burgderfer, Kelsie E 02/26/25 08:23:55 02/26/25 08:24:01 02/26/25 08:23:55 Surgical Procedures FTURO Entry 1 Procedure Description Procedure CYSTOSCOPY LOCAL Modifiers . Surgeon Description CYSTO Primary Procedure Yes Primary Surgeon Sumaya Park MD Start 02/26/25 08:15:00 Stop 02/26/25 08:19:00 Anesthesia Type Local Surgical Service Urology Wound Class 2 - Clean-Contaminated Last Modified By: Iwona Soler 02/26/25 08:19:52 General Case Data FTURO Pre-Care Text: Classifies surgical wound, implements aseptic technique, initiates traffic control Entry 1 Case Information OR URO 1 FT Case Level None Wound Class 2 - Clean-Contaminated Specialty Urology Preop Diagnosis GROSS HEMATURIA, Postop Same As Preop Yes INTERSTITIAL CYSTITIS Postop Diagnosis GROSS HEMATURIA, Outcomes Met? Yes INTERSTITIAL CYSTITIS Last Modified By: Iwona Soler 02/26/25 08:12:06 Post-Care Text: The patient is free from signs and symptoms of infection EU IntraOp - FTURO Pre-Care Text: Implements protective measures prior to operative or invasive procedure, confirms identity before the operative or invasive procedure, verifies operative procedure, surgical site, and laterality Entry 1 EU Perioperative Protocols Procedure(s) CYSTOSCOPY LOCAL(.) Patient Identity Birthday, ID Band Verified (select at Check, Patient least 2): Participation Consents / H and P H&P, Surgery/Procedure Operative Site N/A Verified Consent Marking Verified Surgical Site Yes Laterality Verified n/a Verified Procedure Verified Yes Correct Patient Yes Position Verified Availability Equipment, Medication Time Out Sumaya Park MD, Verified (If Participants Iwona Soler, Applicable) Joseline Mayo CST Time Out Complete 02/26/25 08:14:00 Allergies Reviewed? Yes Allergies Reviewed Self/Patient With Body Position Frog Legged Prep Area RADHA AREA Prep Agents Betasept Skin. Condition Unable to Visualize Description N/A Additional None Specimens Comment N/A Specimens Collected Vitals - EU Blood Pressure 107/73 Pulse 100 bpm Respirations 18 br/min SPO2 98 % EBL 0 I&O - EU Total Intake 0 mL Total Output 0 mL Outcomes Met? Yes Last Modified By: Iwona Soler 02/26/25 08:15:39 Post-Care Text: The patient is free from signs and symptoms of injury caused by extraneous objects Sign Out FTURO Entry 1 Before Patient Leaves OR Nurse verbally Yes Nurse verbally n/a confirms with the confirms with the team the name of team that the procedure(s) instrument, sponge, recorded and needle counts are correct (or N/A) Nurse verbally n/a Nurse verbally Yes confirms with the confirms with the team how the team whether there specimen is labeled are any equipment (including patient problems to be name), if applicable addressed Sign Out Complete 02/26/25 08:19:00 Last Modified By: Iwona Soler 02/26/25 08:19:50 Case Comments Finalized By: Iwona Soler Document Signatures Signed By: Iwona Soler 02/26/25 08:24NoGenesis HospitalMain OR Preoperative Recordon [id number] OR Preoperative RecordMain OR Preoperative Record Holding Area Document Type FTURO Summary Primary Physician: Sumaya Park MD Finalized Date/Time: 02/26/25 08:13:00 Pt. Name: MILADIS DOUGHERTY /Sex: 1995 Female Med Rec #: [id number] Physician: Sumaya Park MD Financial #: [id number] Pt. Type: O Room/Bed: / Admit/Disch: 02/26/25 07:21:19 - Institution: Case Times Holding FTURO Pre-Care Text: Verifies consent for planned procedure, identifies individual values and wishes concerning care, includes family members in perioperative teaching Secures patient's records' belongings, and valuables, maintains patient's dignity and privacy, and maintains patient confidentiality Entry 1 In Holding 02/26/25 07:54:00 Outcomes Met? Yes Last Modified By: Julia Gomez LPN 02/26/25 07:54:37 Post-Care Text: The patient participates in decisions affecting his or her perioperative plan of care The patient'sright to privacy is maintained Surgery Checklist FTURO Entry 1 Patient Birthday, ID Band Procedure Surgical Consent, With Identification: Check, Patient Verification: Patient Participation NPO after Midnight: n/a Personal Items: Glasses Limitations: up ad juan Complaints of Pain: No Skin Integrity Intact, Winkelman, Warm, & Dry Vitals - EU Blood Pressure 107/73 Pulse 100 bpm Respirations 18 br/min SPO2 98 % Additional None RN Reviewed Yes Specimens Collected Last Modified By: Iwona Soler 02/26/25 08:12:59 Finalized By: Iwona Soler Document Signatures Signed By: Julia Gomez LPN 02/26/25 07:57 Iwona Soler 02/26/25 08:13 Unfinalized History Date/Time Username Reason for Unfinalizing Freetext Reason for Unfinalizing 02/26/25 08:12 [id number] Modifying Existing DataNoGenesis Hospital Operative Reporton [id number] ReportOperative Report Patient: MILADIS DOUGHERTY Age: 29 years Sex: Female : 1995 Associated Diagnoses: None Author: Sumaya Park MD Procedure Operative Information Details: Date/ Time: 02/26/2025 08:29:00. Pre-Op Dx: Interstitial cystitis (PKN38-BU N30.10, Discharge, Medical), OAB (overactive bladder) (IHI03-DH N32.81, Discharge, Medical). Post-Op Dx: Same. Anesthesia Type: Local. Procedure: Local Cystoscopy. Complications: None. Risks/Benefits/Informed Consent: Surgical risks, benefits, details of the procedure have been explained to the patient, Full informed consent has been obtained. Intraoperative Information Prepped: Patient is brought back to the endoscopy suite, Patient is placed in supine position, Patient prepped in the usual fashion with Betadine solution (Hibiclens), 2% Xylocaine Jelly is placed per Urethra, After waiting several minutes the Cystoscope is introduced. The Urethra is: Normal. The Bladder is: Normal, Trabeculated None (0), No bladder tumors, lesions, stones or foreign bodies.. The ureteral orifices: Show efflux of clear urine, 2 ureteral orifices on the right. Devices Implanted: None. Removal: Cystoscope is removed, The patient tolerated it well. Vaginal examination: Vaginal mucosa: There is no vaginal atrophy The urethra is patent, orthotopic. There are no masses or lesions. There is no urethral hypermobility and SHAE is not seen. She is able to correctly identify her pelvic muscles. No significant anterior, apical or posterior prolapse. Tender pelvic floor muscles, hypertonic . Postoperative Information Discharge: Follow up arranged, No Hunner's lesions identified. See separate clinic note for further details. Briefly, after discussion of risk and benefits of management options, we will proceed with hydrodistention with instillation of bladder cocktail under anesthesia. Will refer for pelvic floor physical therapy biofeedback for high tone pelvic floor dysfunction. Patient also opts to try Valium suppositories to assist with pelvic pain, [facility] above: Result Comment: Electronically Signed By: Sumaya Park MD\.br\Date and Time Signed: 02/26/25 08:31EDTOutpatient Surgery Discharge Instructionon 02-26-2025 Outpatient Surgery Discharge InstructionOutpatient Surgery Discharge Instruction [address] [address] Patient Discharge Instructions PERSON INFORMATION Name: MILADIS DOUGHERTY Date of : 1995 Current Date: 02/26/2025 08:27:44 PHYSICIANS Admitting Physician: Sumaya Park MD Comment: Discharge Diagnosis: High-tone pelvic floor dysfunction in female; Interstitial cystitis; OAB (overactive bladder) MILADIS DOUGHERTY has been given the following list of follow-up instructions, prescriptions, andpatient education materials: IF UNABLE TO CONTACT YOUR PHYSICIAN AND YOU FEEL IT IS AN EMERGENCY, GO TO THE NEAREST EMERGENCY ROOM OR CALL 911 Follow up: With: Address: When: Sumaya Park [address] [place], [place] [phone] Business (1) Comments: Office will schedule hydrodistention with instillation of bladder cocktail Comment: PATIENT EDUCATION INFORMATION Instructions: Cystoscopy ??? Voiding after the procedure: there may be some pain, burning, urgency, frequency and blood tinged urine following the procedure. These symptoms usually resolve within 2-5 days. Drink the amount of fluid it takes to keep the urine pink to yellow or clear in color. Drinking enough water and fluids will help to ease any discomfort after your procedure. ??? If you are having problems that seem out of the ordinary, please call. ??? If unable to contact your physician and you feel it is an emergency, go to the nearest emergency room or call 911 ??? Diet ??? you may resume your normal diet. ??? Activity ??? you may resume your normal activities ??? Call if you have a fever over 100 degrees. I, MILADIS DOUGHERTY, have received the attached patient education materials/instructions and have verbalized understanding: May we do a follow up call? Yes No I was present when discharge instructions were given Patient Signature Date Clinican/Nurse Signature Date You may receive a survey from [employer] asking you to rate your care experience. Your feedback is important and will help us understand what we do well and how we can improve the quality of care we provide to you, your loved ones and our community. It???s an honor to serve you. Thank you [facility] CampusAmbulatory Visit Summaryon [id number] Visit Summary Ambulatory Visit Summary MILADIS DOUGHERTY :1995 Visit Date:02/08/2025 Ambulatory Visit Instructions Your Diagnosis Interstitial cystitis Frequent UTI Gross hematuria SHAE (stress urinary incontinence, female) Frequent urination Kidney stone Duplicated ureter, right Your Care Team Attending Physician - Xavier PAGE, Sumaya Nguyễn Primary Care Physician - Dia Ware This Is Your Medications List hydrOXYzine (hydrOXYzine hydrochloride 25 mg Tab) mirabegron (mirabegron 25 mg oral tablet, extended release) Procedures Performed Excision of cyst, fibroadenoma, or other benign or malignant tumor, aberrant breast tissue, duct lesion, nipple or areolar lesion (except [address]), open, male or female, 1 or more lesions (11/01/2020),Esophagogastroduodenoscopy (04/14/2019), Laparoscopy (2018), Colonoscopy (02/25/2015), wisdom teethremoved x4 (2010). Discharge Vitals Temperature (Oral) 37 ???C Heart Rate (Peripheral) 90 Respiratory Rate 16 Blood Pressure 104/80 Height 162 cm Height 64 in Weight 71.7 kg Weight 158.071 lb BMI 27.32 What to do next Scheduled Follow-Up Appointments Wednesday 10:00 AM EDT Where: [facility] Wednesday 8:00 AM EDT Where: [facility] You Need to Schedule the Following Appointments Follow Up with Xavier PAGE, Sumaya Nguyễn, RONI, URO When: Where: Medications What How Much When Why Instructions New hydrOXYzine (hydrOXYzine hydrochloride 25 mg Tab) 1 Tablets By Mouth At bedtime Interstitial cystitis Refills: 11 Pickup at [facility]/pharmacy #[id number] New mirabegron (mirabegron 25 mg oral tablet, extended release) 1 Tablets By Mouth Every day Refills: 11 Pickup at [facility]/pharmacy #[id number] Pharmacy Information [facility]/pharmacy #[id number]: [address], [place] [id number] [phone] Allergies Bactrim (hives) Problems Ongoing - Any problem that you are currently receiving treatment for. Abnormal mammogram Allergic rhinitis Bladder pain BMI 28.0-28.9,adult Breast discharge Breast lump or mass Breast mass Breast pain, right Chest tightness Chronic female pelvic pain Diarrhea Duplicated ureter, right Dysuria Fainting episodes Fatigue Febrile seizures Frequent urination Frequent UTI Gross hematuria History of kidney stones IBS (irritable bowel syndrome) Interstitial cystitis Irregular menses Kidney stone Left lower quadrant abdominal pain Lymphadenopathy Menorrhagia Nipple discharge Other nail disorders Over weight Pelvic congestion syndrome Serous otitis media Shortness of breath SHAE (stress urinary incontinence, female) Thyromegaly UTI (urinary tract infection) Vaginal discharge Viral syndrome Vitamin D deficiency Historical - Any problem that you are no longer receiving treatment for. Adult BMI 27.0-27.9 kg/sq m Adult body mass index 28.0-28.9 Gilbert syndrome Patient Survey You may receive a survey via text or e-mail asking about your office visit. Please share your experience with us by completing your survey. We appreciate your feedback and thank you for choosing us for your care. Education Materials Cystoscopy Cystoscopy is a procedure that is used to help diagnose and sometimes treat conditions that affect the lower urinary tract. The lower urinary tract includes the bladder and the urethra. The urethra is the tube that drains urine from the bladder. Cystoscopy is done using a thin, tube-shaped instrument with a light and camera at the end (cystoscope). The cystoscope may be hard or flexible, depending on the goal of the procedure. The cystoscope is inserted through the urethra, into the bladder. Cystoscopy may be recommended if you have: ??? Urinary tract infections that keep coming back. ??? Blood in the urine (hematuria). ??? An inability to control when you urinate (urinary incontinence) or an overactive bladder. ??? Unusual cells found in a urine sample. ??? A blockage in the urethra, such as a urinary stone. ??? Painful urination. ??? An abnormality in the bladder found during an intravenous pyelogram (IVP) or CT scan. Cystoscopy may also be done to remove a sample of tissue to be examined under a microscope (biopsy). Tell a health care provider about: ??? Any allergies you have. ??? All medicines you are taking, including vitamins, herbs, eye drops, creams, and sgjj-uuh-irukecp medicines. ??? Any problems you or family members have had with anesthetic medicines. ??? Any blood disorders you have. ??? Any surgeries you have had. ??? Any medical conditions you have. ??? Whether you are or may be . What are the risks? Generally, this is a safe procedure. However, problems may occur, including: ??? Infection. ??? Bleeding. ??? Allergic reactions to medicines. ??? Damage to other struct (more content not included)...NormalOn License Of [facility] Center[facility] Office/Clinic Noteon [id number] Office/Clinic NoteUrology Office/Clinic Note Chief Complaint 2 mth f/u HPI Staff 29 year old female patient here for 3 month follow up. Last seen LT 01/05/25. Previous dx: frequent UTIs, bladder pain, hx of kidney stones, gross hematuria, SHAE, frequent urination pt states she still has lower abdominal pain and stabbing pain at times. pt is having difficulty urinating. visible blood is off and on also, no blood clots visible History of Present Illness Tests reviewed: reviewed UA I have reviewed the previous health record information and history for this patient from Miladis Mayberry PA-C I have reviewed and verified the staff HPI to be accurate for this encounter. There have been no associated fever, chills, flank pain, or blood in the urine. Denies any urinary infections since last encounter. Review of Systems PHQ Score Initial Depression Screen Score: 0 SCORE ROS - Provider Constitutional: denies weight loss, denies hot flashes. Eyes: denies eye problems. Gastrointestinal: denies nausea, denies vomiting. Cardiovascular: denies chest pain or angina. Integumentary: no dryness Musculoskeletal: denies musculoskeletal symptoms. ENMT: denies otolaryngeal symptoms. Respiratory: no shortness of breath. Heme/Lymph: denies easy bleeding tendency, denies easy bruising tendency. Psychiatric: no confusion, no anxiety. Genitourinary: See HPI. Physical Exam Vitals & Measurements T: 37 ???C(Oral) HR: 90(Peripheral) RR: 16 BP: 104/80 HT: 162 cm HT: 64 in WT: 71.7 kg WT: 158.071 lb BMI: 27.32 General Appearance: alert , no acute distress, well nourished, well developed female. Assessment/Plan 29 yo F with IC here for f/up. 1. Interstitial cystitis (N30.10: Interstitial cystitis (chronic) without hematuria) Shares hx of interstitial cystitis diagnosed years ago by Dr. Gandara at [facility] in [place]. S/p robotic assisted laparoscopic excision of endometriosis, chromopertubation, left ovarian cystectomy, cysto with hydrodistention 09/26/20 - Dual ureters noted on the right side. Inflammation and increased vascularity with Hunner's lesions reflecting interstitial cystitis. 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 She has previously trialed bladderinstillations and hydrodistention. She has trialed PFPT in the past which also did not help, also states today that she was nervous during therapy. Never trialed any medications in the past for OAB and IC. Reports she had improvement following prior hydrodistentions. Never had Hunner Lesion's cauterized.Has trialed Uribel in the past. States she makes a conscious effort to drink plenty of water with occasional lemon and has stopped taking baths. Will provide pt with a bladder irritant sheet. Also shares she has IBS. Occasional pain with intercourse. We discussed treatment options includin) Education, self-care and stress management 2) PO or intravesical medications such as intravesical heparin, lidocaine, sodium bicarb or triamcinolone. PO medication such as amitriptyline, cimetidine, hydroxyzine, or pentosanpolysulfate. Pelvicfloor therapy/biofeedback (avoid kegels/strength) and/or pain management 3) Bladder distension or fulguration if lesions present 4) Botox 5) Low dose PO cyclosporine 6) Urinary diversion -Stress management -Bladder irritant sheet provided -Avoid cranberry pills, trial D-Mannose -Timed voids, tight IBS mgmt -Start Hydroxyzine 25 mg qhs and Mirabegron 25 mg ER qd, monitor for UR -Schedule cysto. The risks and benefits for cystoscopy have been discussed. The risks include bleeding, infection, and irritation of the bladder and urinary channel, among others. The patient, after being informed of procedural details and after questions have been answered, wishes to proceed. Fullinformed consent has been obtained. Will order Local anesthesia. 2. Frequent UTI (N39.0: Urinary tract infection, site not specified) [facility] 12/13/24 w/ c/o LLQ abd pain, pelvic pain, dysuria, vaginal bleeding. Diagnosed w/ UTI. Tx w/ keflex BID x 5 days. UCX >100k E. Coli. 12/13/24 pelvis US - negative [facility] 12/20/24 - continued UTI sxs. Prescribed an additional course of Keflex x 5 days. UCX 25k E. Coli [facility] 01/03/25 - c/o suprapubic pain, UTI sxs and hematuria. CT scan obtained, showed duplicated proximal right ureter without obstruction, hydro or bladder wall thickening. 5 mm LLP kidney stone. UCX w/ 50k E. Coli. She was already being tx for UTI w/ Keflex from our office. Keflex switched to Cipro x 7 days given no improvement in symptoms. D/c home. CT AP w/ con 01/03/25 - Mildly enlarged heterogenous right kidney containing ill- defined low attenuation foci. Cannot exclude pyelo. On personal review w/ Dr. 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 Right kidney comparable to prior CT complete 07/15/2024. 5 mm LLP kidney stone. UCx 12/13/24 - >100k E. Coli, tx w/ keflex BID x 5 days 12/20/24 - 25k E. Coli, tx w/ keflex BID x 5 days 12/29/24 - 50k E. (more content not included)...[facility] Comment on above:Result Comment: Electronically Signed By: Xavier PAGE, Sumaya Nguyễn\.br\Date and Time Signed: 02/08/25 16:41EDT\.br\Electronically Co-Signed By: Dhara Alford\.br\Date and Time Co-Signed: 02/08/25 11:40 EDT\.br\Electronically Co-Signed By: Dhara Alford\.br\Date and Time Co- Signed: 02/08/25 11:44 EDTUrology Office/Clinic Noteon [id number] Office/Clinic NoteUrology Office/Clinic Note Chief Complaint hospital f/u HPI Staff PT is here from an [facility] f/u on 01-03 and was told she has a blockage Pt reports that she has lower abd pain with and without urination and has not urinated as of noon on 01-04-25 pt feels like she has to void but can not Pt has seen visible blood and has stabbing pain PVR 0 Pt unable to give urine sample today History of Present Illness I have reviewed and verified the staff HPI to be accurate for this encounter. Review of Systems PHQ Score Initial Depression Screen Score: 0 SCORE no fever, chills, malaise, myalgia. no abdominal pain, nausea, vomiting. Physical Exam Vitals & Measurements HR: 84(Peripheral) RR: 18 BP: 112/76 HT: 64 in HT: 162 cm WT: 73.6 kg WT: 162.26 lb BMI: 28.04 General: Well developed, well nourished, in no acute distress. Assessment/Plan 29 y/o female pt who presents for hospital f/u for UTI 1. Frequent UTI (N39.0: Urinary tract infection, site not specified) [facility] 12/13/24 w/ c/o LLQ abd pain, pelvic pain, dysuria, vaginal bleeding. Diagnosed w/ UTI. Tx w/ keflex BID x 5 days. UCX >100k E. Coli. 12/13/24 pelvis US - negative [facility] 12/20/24 - continued UTI sxs. Prescribed an additional course of Keflex x 5 days. UCX 25k E. Coli [facility] 01/03/25 - c/o suprapubic pain, UTI sxs and hematuria. CT scan obtained, showed duplicated proximal right ureter without obstruction, hydro or bladder wall thickening. 5 mm LLP kidney stone. UCX w/ 50k E. Coli. She was already being tx for UTI w/ Keflex from our office. Keflex switched to Cipro x 7 days given no improvement in symptoms. D/c home. CT AP w/ con 01/03/25 - Mildly enlarged heterogenous right kidney containing ill- defined low attenuation foci. Cannot exclude pyelo. On personal review w/ Dr. 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 Right kidney comparable to prior CT complete 07/15/2024. 5 mm LLP kidney stone. UCX: 12/13/24 - >100k E. Coli, tx w/ keflex BID x 5 days 12/20/24 - 25k E. Coli, tx w/ keflex BID x 5 days 12/29/24 - 50k E. Coli, tx w/ keflex BID x 7 days 01/03/25 - 50k E. Coli, switched from keflex to w/ cipro BID x 7 days Bladder scan 0 ml today No UA provided today, pt unable to void in office At last visit, pt had UTI sxs since September after having surgery for endometriosis by home child care provider Dr. Gandara at [facility] in [place]. She has been on multiple antibiotics w/o much improvement in her symptoms. She had sxs of bladder pain, LLQ abd pain, cloudy/foul urine at this time. UCX obtained, positive for 50k E. Coli. She was started on Keflex BID x 7 days by our office. KUB IO negative for acute findings. SUMMER ordered, pending. OTC supplements for UTI recommended. She noted history of IC diagnosed years ago by Dr. Gandara. See #2. Patient presents today for hospital ER follow up. She went to ED with c/o continued UTI symptoms, pelvic pain and hematuria. Diagnosed with acute UTI, switched to cipro. CT obtained that showed duplicated right proximal ureter. 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 CT negative for obstruction, hydro or bladder wall thickening. Today, patient is tearful on exam. States that cipro does not seem to be improving her symptoms. States she has not been able to void since yesterday. Unable to void IO today. Random bladder scan 0 ml x 2 (performed at beginning and end of visit to confirm). Her biggest complaint is severe bladder pain. Also reports lower abdominal bloating. Rates pain 10/10. She has a UTI, hx of endometriosis and IC. Informed patient that her symptoms could be overlapping. She also reports she vomited yesterday. Denies fever and chills. Informed patient that she should present to ER for evaluation of her symptoms given severity of pain and nausea/vomiting. Concern for potential pyelo. She verbalizes understanding. Offered to switch po antibiotics today, which she declines. Recommend extending course of antibiotics to ensure resolution of UTI. Also discussed with her possible further evaluation of her bladder pain with cystoscopy (last completed in September by Dr. Gandara in [place]) if her pain does not improve after treatment of UTI. Recommend she take OTC NSAIDS (ibuprofen) x 1-2 weeks given her pain. Will switch 3 month f/u visit to 1 month. She is agreeable to plan. All questions answered. ER precautions again reiterated at end of visit if she continues to have severe pain, N/V, fever/chills or inability to void. She verbalizes understanding. Pt advised to contact our office w all future UTI sx so we can monitor urine cx results, treat appropriately (may require extended course abx), and monitor frequency of infections. If continues to get breakthrough UTIs, may consider cystoscopy w possible UD. -Extend ciprofloxacin course to total of 14 days. Rx sent. -OTC NSAIDS (ibuprofen) x 1-2 weeks / Pyridium PRN -OTC supplements for UTI prevention (cranberry, d-alena (more content not included)...[facility] CampusComment on above:Result Comment: Electronically Signed By: Miladis Mayberry PA-C\.br\Date and Time Signed: 01/06/25 10:06 EDTAmbulatory Visit Summaryon [id number] Visit SummaryAmbulatory Visit Summary MILADIS DOUGHERTY :1995 Visit Date:01/05/2025 Ambulatory Visit Instructions Your Diagnosis Dysuria Your Care Team Attending Physician - Miladis Mayberry PA-C Primary Care Physician - Dia Ware This Is Your Medications List albendazole (albendazole 200 mg oral tablet) polyethylene glycol 3350 (polyethylene glycol 3350 Oral Pwdr for Recon) Procedures Performed Excision of cyst, fibroadenoma, or other benign or malignant tumor, aberrant breast tissue, duct lesion, nipple or areolar lesion (except ), open, male or female, 1 or more lesions (11/01/2020),Esophagogastroduodenoscopy (04/14/2019), Laparoscopy (2018), Colonoscopy (02/25/2015), wisdom teethremoved x4 (2010). Discharge Vitals Heart Rate (Peripheral) 84 Respiratory Rate 18 Blood Pressure 112/76 Height 162 cm Height 64 in Weight 73.6 kg Weight 162.26 lb BMI 28.04 What to do next Scheduled Follow-Up Appointments 2024 7:00 AM EDT With: Where: [facility] Wednesday 5:40 PM EDT With: Dia Ware Where: [facility] [address], [place] [address]- 2024 11:00 AM EDT With: Sumaya Park MD Where: [facility] [address], [address] [place] [address]- Medications What How Much When Why Instructions Unchanged albendazole (albendazole 200 mg oral tablet) 2 Tablets By Mouth Once Worms in stool Acutebronchitis with wheezing with food Unchanged polyethylene glycol 3350 (polyethylene glycol 3350 Oral Pwdr for Recon) 17 Gram By Mouth Every day dissolve in water before taking Allergies Bactrim (hives) Problems Ongoing - Any problem that you are currently receiving treatment for. Abnormal mammogram Allergic rhinitis Bladder pain BMI 28.0-28.9,adult Breast discharge Breast lump or mass Breast mass Breast pain, right Chest tightness Chronic female pelvic pain Diarrhea Dysuria Fainting episodes Fatigue Febrile seizures Frequent urination Frequent UTI Gross hematuria IBS (irritable bowel syndrome) Irregular menses Left lower quadrant abdominal pain Lymphadenopathy Menorrhagia Nipple discharge Other nail disorders Over weight Pelvic congestion syndrome Serous otitis media Shortness of breath SHAE (stress urinary incontinence, female) Thyromegaly UTI (urinary tract infection) Vaginal discharge Viral syndrome Vitamin D deficiency Historical - Any problem that you are no longer receiving treatment for. Adult BMI 27.0-27.9 kg/sq m Adult body mass index 28.0-28.9 Gilbert syndrome Patient Survey You may receive a survey via text or e-mail asking about your office visit. Please share your experience with us by completing your survey. We appreciate your feedback and thank you for choosing us for your care. [facility] Urineon [id number] identified Cx Nom (U)Microbiology PROCEDURE: Urine Culture [R1] SOURCE: U CleanCatch BODY SITE: COLLECTED DATE/TIME: 01/03/2025 20:54 EDT RECEIVED DATE/TIME: 01/03/2025 21:52 EDT START DATE/TIME: 01/03/2025 21:52 EDT FREE TEXT SOURCE: Amandeep DOHERTY, Harish Sims. Amandeep DOHERTY, Harish Sims. FINAL REPORTS Final Report [] Verified Date/Time: 01/05/2025 10:15 EDT 50,000 cfu/ml Escherichia coli SUSCEPTIBILITY RESULTS LEGEND: S=Susceptible, N/R=Not Reported, Blank=Data not available, or drug not advisable or tested, I=Intermediate, ESBL=Extended spectrum beta-lactamase, R=Resistant, TFG=Thymidine-dependent strain, STEVEN=Beta-lactamase positive, LG=mcg/m;(mg/L), S*=Predicted susceptible interp, R*=Predicted resistant interp EC Antibiotic LG Dilutn LG Interp Ampicillin <=8 S Ampicillin/ <=8/4 S Sulbactam Cefazolin <=2 S Cefepime <=2 S Ceftazidime/ <=8 S Avibactam Ceftriaxone <=1 S Cefuroxime 8 S Ciprofloxacin <=0.25 S Ertapenem <=0.5 S Gentamicin <=2 S Levofloxacin <=0.5 S Meropenem <=1 S Nitrofurantoin <=32 S Piperacillin/ <=8 S Tazobactam Tetracycline <=4 S Tobramycin <=2 S Trimethoprim/ <=2/38 S Sulfa Performing Locations R1: This test was performed at: [facility], [address] [place] [address], [id number]- , , CtpuobQzhpapSt. Mary[facility], [facility] CampusComment on above:Performed By: #### [id number] #### [facility] [address] [place] [address] [id number] Abdomen/Pelvis w/ Contraston [id number] Abdomen/Pelvis w/ ContrastExam Date/Time: 01/03/2025 20:46 EDT Reason for Exam: Hematuria Report IMPRESSION: NONOBSTRUCTING LEFT RENAL CALCULUS. MILDLY ENLARGED HETEROGENOUS RIGHT KIDNEY CONTAINING ILL-DEFINED LOW-ATTENUATION FOCI. CANNOT EXCLUDE PYELONEPHRITIS. CORRELATION WITH URINALYSIS SUGGESTED. MILD INTRAHEPATIC DUCTAL DILATATION HISTORY: HEMATURIA. HEMATURIA X 3 DAYS, UROLOGY PLACED PT. ON KEFLEX, STARTED ON WEDNESDAY BID, STATES SHE IS FEELING WORSE WITH NO IMPROVEMENT WITH PELVIC PAIN AND HEMATURIA TECHNICAL FACTORS: CT imaging of the abdomen and pelvis were obtained and formatted as 5 mm contiguous axial images from the domes of the diaphragm to the symphysis pubis. Sagittal and coronal reconstructions were also obtained. Comparison: 07/15/2024 Findings: Lower chest: Cardiac size normal. No pericardial effusion. No coronary artery calcification. Lung bases clear. Liver: Normal in size, shape, and attenuation. Bile Ducts: Mild intrahepatic ductal dilatation. Common duct normal in caliber. Gallbladder: Tract. Pancreas: Normal without masses, cysts, ductal dilatation or calcification. Spleen: Normal in size without masses or calcifications. No splenules. Kidneys: Right kidney mildly enlarged and heterogenous in attenuation. Irregular low-attenuation foci within right kidney posterior mid to lower pole. No hydronephrosis or masses. 5 mm calculus, lower pole left kidney. Adrenals: Normal. Small bowel: Normal in caliber. Appendix: Not visualized. Colon: Normal in caliber. Report Peritoneum: No ascites, free air, or fluid collections. Vessels: Aorta normal in course and caliber. Portal vein, splenic vein, superior mesenteric vein are patent. Lymph nodes: Retroperitoneal: No enlarged retroperitoneal lymph nodes. Mesenteric: No enlarged mesenteric lymph nodes. Pelvic: No enlarged pelvic lymph nodes. Ureters: Normal in course and caliber. No calcifications. Bladder: No wall thickening. Reproductive organs: No pelvic masses. Abdominal Wall: 7 mm fat-containing periumbilical anterior abdominal wall defect. No diastasis of rectus musculature. No edema or masses. Bones: No bone lesions. No degenerative changes. No post operative changes. All CT scans at this facility use dose modulation, iterative reconstruction, and/or weight based dosing when appropriate to reduce radiation dose to as low as reasonably achievable. Technical Comments: GFR (mL/min/1/73m2) n/a-age Contrast: Isovue 300 Contrast amount in ml's: 100.00 Ordering Provider: Louis Santa FINAL REPORT Dictated: 01/04/2025 8:42 am Nathan Marrero MD Signed (Electronic Signature): 01/04/2025 8:42 am Signed by: Nathan Marrero MD Transcribed by: SEBASTIAN Technologist: MBSNormalMiami Valley HospitalBMPon [id number] gap [Moles/Vol]9 mmol/LNormal6-16[facility] Comment on above:Performed By: #### [id number] #### [facility] [address] [place], [place] [address]AMB/Creat Ratio27 No BtnqpKfrs64-34VnbmixMiami Valley Hospital Comment on above:Performed By: #### [id number] #### [facility] [address], [place] [address]Zjtzoxm [Mass/Vol]9.3 mg/dLNormal8.9-11.1FShelby Memorial HospitalComment on above:Performed By: #### [id number] #### [facility] [address], [place] [address]Xwhryrer [Moles/Vol]105 mmol/RTdmtkj377-181GnjlebMiami Valley HospitalComment on above:Performed By: #### [id number] #### [facility] [address], [place] [address]NW8 [Moles/Vol]28 mmol/CZdvtke88-59TywdycMiami Valley Hospital Comment on above:Performed By: #### [id number] #### [facility] [address], [place] [address]Gdjthnhblq [Mass/Vol]0.6 mg/dLNormal0.5-1.3FShelby Memorial HospitalComment on above:Performed By: #### [id number] #### [facility] [address], [place] [address]Rlocpfc [Mass/Vol]103 mg/iNPpgwkd20-692CmdkqkMiami Valley HospitalComment on above:Performed By: #### [id number] #### [facility] [address], [place] [address]Wiarnxojm [Moles/Vol]4.3 mmol/LNormal3.5-5.3FShelby Memorial HospitalComment on above:Performed By: #### [id number] #### [facility] [address], [place] [address]Crpxjn [Moles/Vol]138 mmol/DDsvikm652-926UnggxrMiami Valley HospitalComment on above:Performed By: #### [id number] #### [facility] [address] [place] [address]Jaau nitrogen [Mass/Vol]16 mg/dLNormal5-21Mi[facility] HospitalComment on above:Performed By: #### [id number] #### [facility] [address] [place] [address]VWX w/ Auto Diffon [id number] Absolute0.0 E9/LNormal 0.0-0.2FShelby Memorial HospitalComment on above:Performed By: #### [id number] #### [facility] [address] [place] [address]Zlmmipbmg/100 WBC (Bld)0.4 %Normal0.0-2.0[facility] HospitalComment on above:Performed By: #### [id number] #### [facility] [address] [place] [address]Fjw Absolute0.1 E9/LNormal0.0-0.5FShelby Memorial Hospital Comment on above:Performed By: #### [id number] #### [facility] [address] [place] [address]Dorzrcmrdwf/100 WBC (Bld)1.2 %Normal0.0-8.0[facility] HospitalComment on above:Performed By: #### [id number] #### [facility] [address] [place] [address]Knrfzuurvup distribution width (RBC) [Ratio]13.1 %Normal 10.9-14.2FShelby Memorial HospitalComment on above:Performed By: #### [id number] #### [facility] [address], [place] [address]Guwkngqesm (Bld) [Volume fraction]40.6 %Rqcmwg90.0-46.0[facility] HospitalComment on above:Performed By: #### [id number] #### [facility] [address], [place] [address]Rubghceorl (Bld) [Mass/Vol]13.8 g/mMXrmjhl88.0-16.0[facility] HospitalComment on above:Performed By: #### [id number] #### [facility] [address] [place] [address]Jiqst Absolute1.5 E9/LNormal1.0-4.0[facility] Comment on above:Performed By: #### [id number] #### [facility] [address] [place] [address]Mcvsbzpkpbk/100 WBC (Bld)25.3 %Xfbkgj82.0-50.0[facility] HospitalComment on above:Performed By: #### [id number] #### [facility] [address] [place] [address]JRI (RBC) [Entitic mass]29.4 kfNarwpn06.0-34.0[facility] HospitalComment on above:Performed By: #### [id number] #### [facility] [address] [place] [address]WEYC (RBC) [Mass/Vol]33.9 g/lDOibdqj36.4-36.0[facility] HospitalComment on above:Performed By: #### [id number] #### [facility] [address] [place] [address]80[address]YVA (RBC) [Entitic vol]86.6 bKSrewsb25.0-100.0[facility] HospitalComment on above:Performed By: #### [id number] #### [facility] [address] [place] [address]Inet Absolute0.4 E9/LNormal0.2-1.0[facility] Comment on above:Performed By: #### [id number] #### [facility] [address] [place] [address]Rrsenjsvl/100 WBC (Bld)6.3 %Normal4.0-14.0[facility] HospitalComment on above:Performed By: #### [id number] #### [facility] [address], [place] [address]Hnwzqu Absolute4.0 E9/LNormal2.0-7.5FShelby Memorial Hospital Comment on above:Performed By: #### [id number] #### [facility] [address], [place] [address]Uxmqep Auto66.8 %Iudbzz46.0-75.0[facility] Comment on above:Performed By: #### [id number] #### [facility] [address] [place] [address]Jgzwosmk444.0 E9/PDxgiga926.0-500.0[facility] Comment on above:Performed By: #### [id number] #### [facility] [address] [place] [address]Oobzkahx mean volume (Bld) [Entitic vol]7.8 fLNormal6.4-10.8 [facility] HospitalComment on above:Performed By: #### [id number] #### [facility] [address] [place] [address]ZUX6.7 E12/LNormal4.3-5.9[facility] HospitalComment on above:Performed By: #### [id number] #### [facility] [facility] [address] [place] [address] [id number] E9/LNormal4.0-11.0[facility] HospitalComment on above:Performed By: #### [id number] #### [facility] [address] [place] [address] [id number] By: SYSTEM SYSTEM on [id number] gap [Moles/Vol]9 mmol/LNormal6 - 16 mEq/LRemisol ChemCalcium [Mass/Vol]9.3 mg/dL Normal8.9 - 11.1 mg/dLRemisol ChemChloride [Moles/Vol]105 mmol/MRldesh195 - 111 mmol/LRemisol ChemCO2 [Moles/Vol]28 mmol/MAkjxts26 - 31 mmol/LRemisol Chem Creatinine [Mass/Vol]0.6 mg/dLNormal0.5 - 1.3 mg/dLRemisol ChemGFR/1.73 sq M.predicted MDRD (S/P/Bld) [Vol rate/Area]123 mL/min/1.73 c2Wpjfir >=59mL/min/1.73 x6Owkknic ChemGlucose [Mass/Vol]103 mg/iNSokuex05 - 199 mg/dL Remisol ChemPotassium [Moles/Vol]4.3 mmol/LNormal3.5 - 5.3 mmol/LRemisol Chem Sodium [Moles/Vol]138 mmol/NBvrdmu220 - 145 mmol/LRemisol ChemUrea nitrogen [Mass/Vol]16 mg/dLNormal5 - 21 mg/dLRemisol ChemUrea nitrogen/Creatinine [Mass ratio]27 mg/qsJbmk21 - 20Remisol ChemED Clinical Summaryon [id number] Clinical SummaryED Clinical Summary [place] [id number] ED Clinical Summary Person Information Name: MILADIS DOUGHERTY/[facility] Age: 29 Years : 1995 Sex: Female Language: Iranian PCP: Dia Ware Marital Status: Visit Id: Visit Reason: Hematuria; Pelvic pain; PELVIC PAIN, BLEEDING WITH URINATION Speciality: Acuity: 3 Enc Type: Emergency Med Service: Emergency Arrival: 01/03/2025 17:30:48 Discharge: 01/03/2025 22:18:30 LOS: 000 04:48 Checkin: 01/03/2025 17:30:48 Checkout: 01/03/2025 22:18:30 Dispo Type: Home (Routine DC) EVENTS: Event Name Event Status Request Date/Time Start Date/Time Complete Date/Time Arrive Complete 01/03/2025 17:30:48 01/03/2025 17:30:48 01/03/2025 17:30:48 Document Home Meds Request 01/03/2025 17:30:48 Triage Complete 01/03/2025 17:30:48 01/03/2025 17:40:35 01/03/2025 17:40:35 Registration Complete 01/03/2025 17:33:29 01/03/2025 17:33:29 01/03/2025 17:33:29 Reg Complete Request 01/03/2025 17:33:29 Reg Bed Request Complete 01/03/2025 17:33:29 01/03/2025 17:33:29 01/03/2025 17:33:29 Bed Assign Complete 01/03/2025 17:41:05 01/03/2025 17:41:05 01/03/2025 17:41:05 Dr Exam Complete 01/03/2025 17:41:05 01/03/2025 17:48:49 01/03/2025 17:48:49 RN Exam Request 01/03/2025 17:41:05 Registration Complete 01/03/2025 17:48:49 01/03/2025 18:51:49 01/03/2025 18:51:49 Pending Labs Collected 01/03/2025 17:50:07 Lab Complete 01/03/2025 17:50:07 01/03/2025 21:20:54 Urine Collect Complete 01/03/2025 17:50:07 01/03/2025 21:20:54 Pending Labs Complete 01/03/2025 17:53:54 01/03/2025 18:41:53 Lab Complete 01/03/2025 17:53:54 01/03/2025 18:41:53 CT Complete 01/03/2025 17:53:55 01/03/2025 20:37:25 01/03/2025 20:46:41 Meds Admin Complete 01/03/2025 17:54:38 01/03/2025 18:37:32 Pending Labs Complete 01/03/2025 18:17:03 01/03/2025 18:17:03 01/03/2025 18:41:53 Lab Complete 01/03/2025 18:17:03 01/03/2025 18:17:03 01/03/2025 18:41:53 Pending Labs Complete 01/03/2025 18:53:50 01/03/2025 18:53:50 01/03/2025 18:53:51 Dr Exam Complete 01/03/2025 19:01:46 01/03/2025 19:01:46 01/03/2025 19:01:46 Registration Complete 01/03/2025 19:01:46 01/03/2025 22:07:03 01/03/2025 22:07:03 Pending Labs Complete 01/03/2025 20:43:38 01/03/2025 20:43:38 01/03/2025 21:04:25 Pending Labs Cancel 01/03/2025 21:04:21 01/03/2025 21:04:21 01/03/2025 21:20:28 Pending Labs Inlab 01/03/2025 21:30:25 01/03/2025 21:30:25 Lab Inlab 01/03/2025 21:30:25 01/03/2025 21:30:25 Meds Admin Complete 01/03/2025 21:45:25 01/03/2025 22:12:26 Discharge Complete 01/03/2025 21:48:00 01/03/2025 22:18:38 01/03/2025 22:18:38 Transfer Complete 01/03/2025 22:18:38 01/03/2025 22:18:38 01/03/2025 22:18:38 ADDRESS: [address] [place] [phone] PHYS DOC NOTES: Addendum by Libby Ham DO on January 03, 2025 21:56:49 EDT MEDICAL INFORMATION: Prescriptions Given: New Medications [facility]/pharmacy #[id number], [address], [place] [id number], [phone] ciprofloxacin (Cipro 500 mg Tab) 1 Tablets By Mouth 2 times a day. Refills: 0. Medications to Continue with No Changes Other Medications albendazole (albendazole 200 mg oral tablet) 2 Tablets By Mouth Once. with food. Refills: 0. cephalexin (Keflex 500 mg Cap) 1 Capsules By Mouth every 12 hours for 7 Days. Refills: 0. polyethylene glycol 3350 (polyethylene glycol 3350 Oral Pwdr for Recon) 17 Gram By Mouth every day.dissolve in water before taking. Refills: 0. PATIENT EDUCATION INFORMATION: Instructions: Urinary Tract Infection, Adult, Iimr-sc-Fdmd Follow up: With: Address: When: Dia Madsen In 3 days 01/06/2025 Comments: Stop the Keflex and start the Cipro until you complete the course. 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 Please return to the ED for any new or worsening symptoms. DIAGNOSIS: Acute pelvic pain; Duplicated ureter, right; HematuriaNormalFisher Johnston Medical CenterED Note-Physicianon [id number] Note-PhysicianED Note-Physician Basic Information Time Seen: Louis Santa DO 01/03/2025 17:48 Chief Complaint hematuria x 3 days, urology placed pt. on keflex, started on Wednesday BID, states she is feeling worse with no improvement with pelvic pain and hematuria. pt. states she feels hot, afebrile in triage. History of Present Illness 29-year-old female to the emergency department chief complaint of 3 days of hematuria. She has recent complicated course of multiple urinary tract infections. Growing E. coli on cultures. She has been seen in the ER, by primary care and by urology. She was instructed come to the ER for imaging should the hematuria continue. She denies any fever, sweats, chills. No flank pain. She continues to have suprapubic discomfort and cramping. Review of Systems A 10 point review of systems is negative except as noted above. Medical and Surgical History: Reviewed and noted Social history: Lives at home Tobacco: Denies Physical Exam Vitals & Measurements T: 36.6 ???C(Oral) HR: 81(Peripheral) RR: 16 BP: 117/84 SpO2: 100% HT: 160 cm WT: 73.3 kg BMI: 28.63 VITALS: I have reviewed the triage vital signs. GENERAL: Well developed, well appearing adult in no acute distress. NEURO: Alert and oriented. Moves all extremities. Face is symmetric and expressive. EYES: PERRL. No scleral icterus or conjunctival injection. No discharge. HENT: Normocephalic, atraumatic. Hearing is grossly intact. Nares grossly patent and without discharge. Mucous membranes moist. NECK: No JVD. Patient moves neck without restriction. CARDIO: No lower extremity edema. PULM: Easy respirations. EXTREMITIES: Symmetric muscle bulk. No joint swelling. No clubbing, cyanosis, or deformity. SKIN: Warm and dry. Normal turgor. No rash or lesions appreciated. PSYCH: Mood, affect, and interaction is appropriate to the setting. Medical Decision Making 29-year-old female to the emergency department chief complaint of hematuria and suprapubic discomfort. Vital stable, the patient is afebrile. CT scan of the abdomen pelvis is ordered, basic labs, urinalysis. The patient agrees with this plan. Care was signed out to Dr. Ham. Assessment/Plan Acute pelvic pain (R10.2: Pelvic and perineal pain) Hematuria (R31.9: Hematuria, unspecified) Orders: ketorolac, 15 mg = 1 mL, Injection, IV Push, Once, Stop date 01/03/25 17:54:00 EDT, STAT, Start date 01/03/25 17:54:00 EDT, 01/03/25 17:54:00 EDT Basic Metabolic Panel CBC w/ Auto Diff CT Abdomen/Pelvis w/ Contrast Disposition Plan Patient Discharge Condition Stable Discharge Prescription List Prescriptions No active prescription medications Follow-up No qualifying data available Problem List/Past Medical History Ongoing Abnormal mammogram Allergic rhinitis Bladder pain BMI 28.0-28.9,adult Breast discharge Breast lump or mass Breast mass Breast pain, right Chest tightness Chronic female pelvic pain Diarrhea Dysuria Fainting episodes Fatigue Febrile seizures Frequent urination Frequent UTI Gross hematuria IBS (irritable bowel syndrome) Irregular menses Left lower quadrant abdominal pain Lymphadenopathy Menorrhagia Nipple discharge Other nail disorders Over weight Pelvic congestion syndrome Serous otitis media Shortness of breath SHAE (stress urinary incontinence, female) Thyromegaly UTI (urinary tract infection) Vaginal discharge Viral syndrome Vitamin D deficiency Historical Adult BMI 27.0-27.9 kg/sq m Adult body mass index 28.0-28.9 Gilbert syndrome Procedure/Surgical History Excision of cyst, fibroadenoma, or other benign or malignant tumor, aberrant breast tissue, duct lesion, nipple or areolar lesion (except ), open, male or female, 1 or more lesions (11/01/2020),Esophagogastroduodenoscopy (04/14/2019), Laparoscopy (2018), Colonoscopy (02/25/2015), wisdom teethremoved x4 (2010). Medications Inpatient ketorolac 15 mg/mL Inj, 15 mg= 1 mL, IV Push, Once Home albendazole 200 mg oral tablet, 400 mg= 2 tab(s), Oral, Once, Not taking Keflex 500 mg Cap, 500 mg= 1 cap(s), Oral, q12hr polyethylene glycol 3350 Oral Pwdr for Recon, 17 gm, Oral, Daily, Not taking Allergies Bactrim (hives) Social History Alcohol - Denies Alcohol Use, 08/04/2019 Current. 1-2 times per year., 12/20/2024 Current, Beer, 1-2 times per year, 05/30/2021 1-2 times per year, 11/16/2020 Substance Abuse - Denies Substance Abuse, 08/04/2019 Never., 12/20/2024 Tobacco - Denies Tobacco Use, 03/16/2019 Never (less than 100 in lifetime) Tobacco Use:. Never Smokeless Tobacco Use:., 12/29/2024 Never (less than 100 in lifetime) Tobacco Use:. Never Smokeless Tobacco Use:., 12/20/2024 Family History Diabetes mellitus type 2: Mother. Lab Results No qualifying data available. Diagnostic Results No qualifying data available. Patient's urinalysis does appear consistent with urinary tract infection CT imaging shows no ev (more content not included)...[facility] CampusComment on above:Result Comment: Electronically Signed By: Libby Ham DO\Date and Time Signed: 01/03/25 21:57 EDTED Note-PhysicianED Note-Physician Basic Information Time Seen: Louis Santa DO 01/03/2025 17:48 Chief Complaint hematuria x 3 days, urology placed pt. on keflex, started on Wednesday BID, states she is feeling worse with no improvement with pelvic pain and hematuria. pt. states she feels hot, afebrile in triage. History of Present Illness 29-year-old female to the emergency department chief complaint of 3 days of hematuria. She has recent complicated course of multiple urinary tract infections. Growing E. coli on cultures. She has been seen in the ER, by primary care and by urology. She was instructed come to the ER for imaging should the hematuria continue. She denies any fever, sweats, chills. No flank pain. She continues to have suprapubic discomfort and cramping. Review of Systems A 10 point review of systems is negative except as noted above. Medical and Surgical History: Reviewed and noted Social history: Lives at home Tobacco: Denies Physical Exam Vitals & Measurements T: 36.6 ???C(Oral) HR: 81(Peripheral) RR: 16 BP: 117/84 SpO2: 100% HT: 160 cm WT: 73.3 kg BMI: 28.63 VITALS: I have reviewed the triage vital signs. GENERAL: Well developed, well appearing adult in no acute distress. NEURO: Alert and oriented. Moves all extremities. Face is symmetric and expressive. EYES: PERRL. No scleral icterus or conjunctival injection. No discharge. HENT: Normocephalic, atraumatic. Hearing is grossly intact. Nares grossly patent and without discharge. Mucous membranes moist. NECK: No JVD. Patient moves neck without restriction. CARDIO: No lower extremity edema. PULM: Easy respirations. EXTREMITIES: Symmetric muscle bulk. No joint swelling. No clubbing, cyanosis, or deformity. SKIN: Warm and dry. Normal turgor. No rash or lesions appreciated. PSYCH: Mood, affect, and interaction is appropriate to the setting. Medical Decision Making 29-year-old female to the emergency department chief complaint of hematuria and suprapubic discomfort. Vital stable, the patient is afebrile. CT scan of the abdomen pelvis is ordered, basic labs, urinalysis. The patient agrees with this plan. Care was signed out to Dr. Ham. Assessment/Plan Acute pelvic pain (R10.2: Pelvic and perineal pain) Hematuria (R31.9: Hematuria, unspecified) Orders: ketorolac, 15 mg = 1 mL, Injection, IV Push, Once, Stop date 01/03/25 17:54:00 EDT, STAT, Start date 01/03/25 17:54:00 EDT, 01/03/25 17:54:00 EDT Basic Metabolic Panel CBC w/ Auto Diff CT Abdomen/Pelvis w/ Contrast Disposition Plan Patient Discharge Condition Stable Discharge Prescription List Prescriptions No active prescription medications Follow-up No qualifying data available Problem List/Past Medical History Ongoing Abnormal mammogram Allergic rhinitis Bladder pain BMI 28.0-28.9,adult Breast discharge Breast lump or mass Breast mass Breast pain, right Chest tightness Chronic female pelvic pain Diarrhea Dysuria Fainting episodes Fatigue Febrile seizures Frequent urination Frequent UTI Gross hematuria IBS (irritable bowel syndrome) Irregular menses Left lower quadrant abdominal pain Lymphadenopathy Menorrhagia Nipple discharge Other nail disorders Over weight Pelvic congestion syndrome Serous otitis media Shortness of breath SHAE (stress urinary incontinence, female) Thyromegaly UTI (urinary tract infection) Vaginal discharge Viral syndrome Vitamin D deficiency Historical Adult BMI 27.0-27.9 kg/sq m Adult body mass index 28.0-28.9 Gilbert syndrome Procedure/Surgical History Excision of cyst, fibroadenoma, or other benign or malignant tumor, aberrant breast tissue, duct lesion, nipple or areolar lesion (except 00744), open, male or female, 1 or more lesions (11/01/2020),Esophagogastroduodenoscopy (04/14/2019), Laparoscopy (2018), Colonoscopy (02/25/2015), wisdom teethremoved x4 (2010). Medications Inpatient ketorolac 15 mg/mL Inj, 15 mg= 1 mL, IV Push, Once Home albendazole 200 mg oral tablet, 400 mg= 2 tab(s), Oral, Once, Not taking Keflex 500 mg Cap, 500 mg= 1 cap(s), Oral, q12hr polyethylene glycol 3350 Oral Pwdr for Recon, 17 gm, Oral, Daily, Not taking Allergies Bactrim (hives) Social History Alcohol - Denies Alcohol Use, 08/04/2019 Current. 1-2 times per year., 12/20/2024 Current, Beer, 1-2 times per year, 05/30/2021 1-2 times per year, 11/16/2020 Substance Abuse - Denies Substance Abuse, 08/04/2019 Never., 12/20/2024 Tobacco - Denies Tobacco Use, 03/16/2019 Never (less than 100 in lifetime) Tobacco Use:. Never Smokeless Tobacco Use:., 12/29/2024 Never (less than 100 in lifetime) Tobacco Use:. Never Smokeless Tobacco Use:., 12/20/2024 Family History Diabetes mellitus type 2: Mother. Lab Results No qualifying data available. Diagnostic Results No qualifying data available.[facility] CampusComment on above: Result Comment: Electronically Signed By: Louis Santa DO\.br\Date and Time Signed: 01/03/25 18:59 EDTED Patient Summaryon [id number] Patient SummaryED Patient Summary [place] [id number] Patient Discharge Instructions Person Information Name: MILADIS DOUGHERTY Age: 29 Years Arrival Date: 01/03/2025 17:30:48 Discharge Diagnosis: Acute pelvic pain; Duplicated ureter, right; Hematuria Primary Care Physician: Dia Ware Provider Information Primary Provider: Louis Santa DO Advanced Cinder Pit Crane Operator:None The exam and treatment you received in the Emergency Department were for an urgent problem and are not intended as complete care. It is important that you follow up with a doctor, nurse practitioner,or physician???s family practice physician assistant for ongoing care. If your symptoms become worse or you do not improve asexpected and you are unable to reach your usual health care provider, you should return to the Emergency Department. We are available 24 hours a day. MILADIS DOUGHERTY has been given the following list of patient education materials, prescriptionsand follow-up instructions: Follow-up Instructions: With: Address: When: Dia Madsen In 3 days 01/06/2025 Comments: Stop the Keflex and start the Cipro until you complete the course. 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 Please return to the ED for any new or worsening symptoms. In the event that this physician does not participate in your insurance network, please consult with your insurance company to find a nearby participating provider. Patient Education Materials: Urinary Tract Infection, Adult, Relr-pt-Wgth A MESSAGE TO ALL PATIENTS REGARDING OPIOIDS PRESCRIPTION OPIOIDS: WHAT YOU NEED TO KNOW Prescription opioids can be used to help relieve rujiunzp-pa-wlibeh pain and are often prescribed following a [...] as well, even when taken as directed: ??? Tolerance???meaning you might need to take more of the medication for the same pain relief ??? Physical dependence???meaning you have symptoms of withdrawal when a medication is stopped ??? Increased sensitivity to pain ??? Constipation ??? Nausea, vomiting, and dry mouth ??? Sleepiness and dizziness ??? Confusion ??? Depression ??? Low levels of testosterone that can result in lower sex drive, energy, and strength ??? Itching and sweating RISKS ARE GREATER WITH: ??? History of drug misuse, substance use disorder, or overdose ??? Mental health conditions (such as depression or anxiety) ??? Sleep apnea ??? Older age (65 years and older) ??? Avoid alcohol while taking prescription opioids. Also, unless specifically advised by your health care provider, medications to avoid include: ??? Benzodiazepines (such as Xanax or Valium) ??? Muscle relaxants (such as Soma or Flexeril) ??? Hypnotics (such as Ambien or Lunesta) ??? Other prescription opioids KNOW YOUR OPTIONS Talk to your health care provider about ways to manage your pain that don???t involve prescription opioids. Some of these options may actually work better and have fewer risks and side effects. Options may include: ??? Pain relievers such as acetaminophen, ibuprofen, and naproxen ??? Some medication that are also used for depression or seizures ??? Physical therapy and exercise ??? Cognitive behavioral therapy, a psychological, goal-directed approach, in which patients learn how to modify physical, behavioral, and emotional triggers of pain and stress. IF YOU ARE PRESCRIBED OPIOIDS FOR PAIN: ??? Never take opioids in greater amounts or more often than prescribed. ??? Follow up with your primary health care provider. o Work together to create a plan on how to manage your pain. o Talk about ways to help manage your pain that don???t involve prescription opioids. o Talk about any and all concerns and side effects. ??? Help prevent misuse and abuse o Never sell or share prescription opioids. o Never use another person???s prescription opioids. ??? Store prescription opioids in a secure place and out of reach of others (this may include visitors, children, friends, and family). ??? Safely dispose of unused prescription opioids: Find your community drug take-back program or your pharmacy mail-back program, or flush them down the toilet, following guidance from the Food and Drug Administration (www.fda.gov/D (more content not included)...[facility] CampusExtra Blueon [id number] Collected PlasmaYesInvalid Interpretation [facility] SystemComment on above:Performed By: #### [id number] #### [facility] [address] [place] [address] [id number] By: SYSTEM SYSTEM on 19-05-6101Xnlivpkqd/100 WBC (Bld)0.4 %Normal0.0 - 2.0 %Remisol HemeBasophils/Leukocytes Auto (Bld) [Pure # fraction]0.0 E9/LNormal0.0 - 0.2 E9/LRemisol HemeEosinophils (Bld) [#/Vol]0.1 E9/LNormal0.0 - 0.5 E9/LRemisol HemeEosinophils/100 WBC (Bld)1.2 %Normal0.0 - 8.0 %Remisol HemeErythrocyte distribution width (RBC) [Ratio]13.1 %Hbsmzi02.9 - 14.2 %Remisol HemeHematocrit (Bld) [Volume fraction]40.6 %Mdeego12.0 - 46.0 % Remisol HemeHemoglobin (Bld) [Mass/Vol]13.8 g/jDNdwroe54.0 - 16.0 gm/dLRemisol HemeLymphocytes (Bld) [#/Vol]1.5 E9/LNormal1.0 - 4.0 E9/LRemisol Heme Lymphocytes/100 WBC (Bld)25.3 %Totevd44.0 - 50.0 %Remisol HemeMCH (RBC) [Entitic mass]29.4 lxTckkcr82.0 - 34.0 pgRemisol HemeMCHC (RBC) [Mass/Vol]33.9 g/dL Yqltji94.4 - 36.0 gm/dLRemisol HemeMCV (RBC) [Entitic vol]86.6 kSPylmro31.0 - 100.0 fLRemisol HemeMonocytes (Bld) [#/Vol]0.4 E9/LNormal0.2 - 1.0 E9/LRemisol HemeMonocytes/100 WBC (Bld)6.3 %Normal4.0 - 14.0 %Remisol HemeNeutrophils (Bld) [#/Vol]4.0 E9/LNormal2.0 - 7.5 E9/LRemisol HemeNeutrophils/100 WBC (Bld)66.8 % Shzgst97.0 - 75.0 %Remisol HemePlatelet mean volume (Bld) [Entitic vol]7.8 fL Normal6.4 - 10.8 fLRemisol HemePlatelets (Bld) [#/Vol]216.0 E9/RYclnqk747.0 - 500.0 E9/LRemisol HemeRBC (Bld) [#/Vol]4.7 E12/LNormal4.3 - 5.9 E12/LRemisol HemeWBC corrected for nucl RBC Auto (Bld) [#/Vol]6.0 E9/LNormal4.0 - 11.0 E9/L Remisol HemeSEROLOGYOrdered By: Tiffany Levi on 54-12-1115SEA.beta subunit (U) [Moles/Vol]NegativeNormalDRUMRIGHT REGIONAL [facility]OS[facility] – [facility] Man SeroU BetaHcg Qualon 01-03-2025U beta hCG Ql NegativeNormalMiami Valley HospitalComment on above:Performed By: #### [id number] #### [facility] [address], [place] [address]EW with Cult Rflxon 03-18-7050Inhan (U)Light-YellowNormalYellow [facility] HospitalComment on above:Result Comment: Microscopic readings are only performed on those samples that meet specific criteria set forth by [facility].Performed By: #### [id number] #### [facility] [address], [place] [address]Halwfnn (U) [Mass/Vol]NegativeNormalNegativeMiami Valley HospitalComment on above:Performed By: #### [id number] #### [facility] [address], [place] [address]Owbkcxb Ql (U)NegativeNormalNegativeMi[facility] Hospital Comment on above:Performed By: #### [id number] #### [facility] [address], [place] [address]OV BloodNegativeNormalNegativeMi[facility] Valley Hospital Comment on above:Performed By: #### [id number] #### [facility] [address], [place] [id number] Bacteria1+ /HPFAbnormalTraceMiami Valley Hospital Comment on above:Performed By: #### [id number] #### [facility] [address], [place] [address]RI ClarityTurbidAbnormalClearFisher [facility] CenterComment on above:Performed By: #### [id number] #### [facility] [address], [place] [address]PN Leuk Eyx052 Familia/uLAbnormalNegativeMiami Valley HospitalComment on above:Performed By: #### [id number] #### [facility] [address], [place] [address]OO Mucous1+ CD:[id number] [facility] Medical CenterComment on above:Performed By: #### [id number] #### [facility] [address], [place] [address]WT NitriteNegativeNormalNegativeMi[facility] Hospital Comment on above:Performed By: #### [id number] #### [facility] [address], [place] [address]GG pH6.0Invalid Interpretation Code5.0-9.0[facility] HospitalComment on above:Performed By: #### [id number] #### [facility] [address], [place] [address]IC ProteinTraceAbnormalNegativeMi[facility] Valley Hospital Comment on above:Performed By: #### [id number] #### [facility] [address] [place] [id number] SUA2-8Zjeevv3-1Cpdyis [facility] CenterComment on above: Performed By: #### [id number] #### [facility] [address], [place] [address]QL Spec Grav1.036Invalid Interpretation Code1.005-1.030[facility] HospitalComment on above:Performed By: #### [id number] #### [facility] [address] [place] [id number] Squam Epithelial5-8Invalid Interpretation CodeMiami Valley HospitalComment on above:Performed By: #### [id number] #### [facility] [address], [place] [address]HC UrobilinogenNegativeNormmdNegativeMiami Valley HospitalComment on above:Performed By: #### [id number] #### [facility] [address], [place] [address]FF FUU58-21Rlzlrazv7-8Ebrxvi [facility] CenterComment on above:Performed By: #### [id number] #### [facility] [address], [place] [address]Krzdtzpyuuyq (U) [Mass/Vol]NegativeNormalNegativeMiami Valley HospitalComment on above:Performed By: #### [id number] #### [facility] [address], [place] [address]QP Spec DescClean CatchNormalMiami Valley HospitalComment on above:Performed By: #### [id number] #### [facility] [address], [place] [address]LHBHDXLQAJVnmtaof By: SYSTEM SYSTEM on [id number] Auto Ql (U)1+ /HPFInvalid Interpretation CodeTrace/HPFFTMC UA Auto SSBilirubin Ql (U) NegativeNormalNegativemg/dLFTMC UA Auto SSClarity (U)Turbid *ABN* (01/03/25 8:54 PM)Invalid Interpretation CodeClearFTMC UA Auto SSColor (U)Light- Yellow 1 (01/03/25 8:54 PM)NormalYellowFT UA Auto SSComment on above:Interpretive Data: Microscopic readings are only performed on those samples that meet specific criteria set forth by [facility].Epithelial cells.squamous Auto (Urine sed) [#/Area]5-8 graded/HPFInvalid Interpretation CodeFT UA Auto SSGlucose Ql (U)NegativeNormalNegativemg/dLFT UA Auto SS Hemoglobin Auto test strip (U) [Mass/Vol]NegativeNormalNegativemg/dLFTMC UA Auto SSKetones Auto test strip Ql (U)NegativeNormalNegativemg/dLFTMC UA Auto SS Leukocyte esterase Auto test strip Ql (U)250 Familia/uL Familia/uLInvalid Interpretation CodeNegativeLeu/uLFT UA Auto SSMucus Auto Ql (U)1+ graded/LPFInvalid Interpretation CodeNegativegraded/LPFFTMC UA Auto SSNitrite Auto test strip Ql (U)NegativeNormalNegativemg/dLFTMC UA Auto SSpH (U)6.0 *NA* (01/03/25 8:54 PM)Invalid Interpretation Code5.0 - 9.0FT UA Auto SSProtein Ql (U)Trace mg/dLInvalid Interpretation CodeNegativemg/dLFTMC UA Auto SSRBC Ql (U) 0-3 graded/HPFNormal0-3graded/HPFFTMC UA Auto SSSpecific gravity (U) [Rel density]1.036 *NA* (01/03/25 8:54 PM)Invalid Interpretation Code1.005 - 1.030FT UA Auto SS Urobilinogen (U) [Mass/Vol]NegativeNormalNegativemg/dLFT UA Auto SSWBC Auto (Urine sed) [#/Area]16-25 graded/HPFInvalid Interpretation Code0-5graded/HPFDRUMRIGHT REG[facility]AL [facility] UA Auto SSURINALYSISOrdered By: Harish Bernstein on [id number] Spec DescClean Catch (01/03/25 8:54 PM)[facility] UA Auto SS egFRon [id number] mL/min/1.73 q1Mhiqkq>=59Fisher [facility] CenterComment on above:Performed By: #### [id number] #### [facility] [address] [place], [place] [address]Hquqvbiqxea [id number] From: Dia Ware To: [facility]; Sent: 12/27/2024 15:46:25 EDT Show up: 12/27/2024 15:46:00 EDT Subject: urine culture Due Date/Time: 12/28/2024 15:45:00 EDT Please advise patient that urine culture was positive for bacterial growth. Current antibiotic appropriate for bacteria. Follow-up in 3 to 5 days if no improvement or worsening of symptoms. Thanks! Results: Date Result Type Ind Result Name 12/20/2024 MBO POS Urine Culture Patient states that this will be the 4th time she has been on current antibiotic. Was wondering if a stronger antibiotic should be tried. From: Karen Abrams LPN ([facility] Clinical) To: Dia Ware; Sent: 01/01/2025 15:41:07 EDT ! Show up: 01/01/2025 15:41:00 EDT From: Dia Ware To: [facility] Clinical; Sent: 01/02/2025 08:12:26 EDT Show up: 01/02/2025 08:11:00 EDT Subject: RE: urine culture Please have her call urology for further guidance on treatment of continuing UTI. Thank you [facility] for call back.[facility] Urineon [id number] identified Cx Nom (U)Microbiology PROCEDURE: Urine Culture [R1] SOURCE: U Random BODY SITE: COLLECTED DATE/TIME: 12/29/2024 15:25 EDT RECEIVED DATE/TIME: 12/30/2024 12:25 EDT START DATE/TIME: 12/30/2024 12:25 EDT FREE TEXT SOURCE: Shawanda DOHERTY, Miladis Mayberry PA-C, Miladis FINAL REPORTS Final Report [] Verified Date/Time: 01/01/2025 07:01 EDT 50,000 cfu/ml Escherichia coli 1,000 cfu/ml Mixed skin contaminants SUSCEPTIBILITY RESULTS LEGEND: S=Susceptible, N/R=Not Reported, Blank=Data not available, or drug not advisable or tested, I=Intermediate, ESBL=Extended spectrum beta-lactamase, R=Resistant, TFG=Thymidine-dependent strain, STEVEN=Beta-lactamase positive, LG=mcg/m;(mg/L), S*=Predicted susceptible interp, R*=Predicted resistant interp EC Antibiotic LG Dilutn LG Interp Ampicillin <=8 S Ampicillin/ <=8/4 S Sulbactam Cefazolin <=2 S Cefepime <=2 S Ceftazidime/ <=8 S Avibactam Ceftriaxone <=1 S Cefuroxime <=4 S Ciprofloxacin <=0.25 S Ertapenem <=0.5 S Gentamicin <=2 S Levofloxacin <=0.5 S Meropenem <=1 S Nitrofurantoin <=32 S Piperacillin/ <=8 S Tazobactam Tetracycline <=4 S Tobramycin <=2 S Trimethoprim/ <=2/38 S Sulfa Performing Locations R1: This test was performed at: [facility], [address] [place] [address], [id number] , [place], XeoohvEmgcbrSt. Mary's [facility], Ironton CampusComment on above:Performed By: #### [id number] #### [facility] [address] [place] [id number] Abdomen 1 Viewon [id number] Abdomen 1 ViewExam Date/Time: 12/29/2024 14:15 EDT Reason for Exam: Abdominal pain Report IMPRESSION: NO SPECIFIC ABDOMEN. CLINICAL HISTORY: Abdominal pain COMPARISON: NONE. FINDINGS: Gas and stool in colon. Gas in small bowel. No focal or diffuse small bowel dilatation. No mass effect. No abnormal calcification. Osseous structures intact. Technical Comments: Kapj in mGy = n.a DAP = n.a Ordering Provider: Miladis Mayberry FINAL REPORT Dictated: 12/30/2024 8:16 am Nathan Marrero MD Signed (Electronic Signature): 12/30/2024 8:16 am Signed by: Nathan Marrero MD Transcribed by: SEBASTIAN Technologist: [facility] HospitalAmbulatory Visit Summaryon [id number] Visit SummaryAmbulatory Visit Summary MILADIS DOUGHERTY :1995 Visit Date:12/29/2024 Ambulatory Visit Instructions Your Diagnosis Recurrent UTI Your Care Team Attending Physician - Miladis Mayberry PA-C Primary Care Physician - Dia Ware Referring Physician - Dia Ware. This Is Your Medications List albendazole (albendazole 200 mg oral tablet) polyethylene glycol 3350 (polyethylene glycol 3350 Oral Pwdr for Recon) Procedures Performed Excision of cyst, fibroadenoma, or other benign or malignant tumor, aberrant breast tissue, duct lesion, nipple or areolar lesion (except 37[address]), open, male or female, 1 or more lesions (11/01/2020),Esophagogastroduodenoscopy (04/14/2019), Laparoscopy (2018), Colonoscopy (02/25/2015), wisdom teethremoved x4 (2010). Discharge Vitals Height 162 cm Height 64 in Weight 73.3 kg Weight 161.599 lb BMI 27.93 What to do next Scheduled Follow-Up Appointments Wednesday 5:40 PM EDT With: Dia Ware Where: [facility] [address], [place] [address]- Wednesday 8:00 AM EDT With: Miladis Mayberry PA-C Where: [facility] [address] [address]- Medications What How Much When Why Instructions Unchanged albendazole (albendazole 200 mg oral tablet) 2 Tablets By Mouth Once Worms in stool Acutebronchitis with wheezing with food Unchanged polyethylene glycol 3350 (polyethylene glycol 3350 Oral Pwdr for Recon) 17 Gram By Mouth Every day dissolve in water before taking Allergies Bactrim (hives) Problems Ongoing - Any problem that you are currently receiving treatment for. Abnormal mammogram Allergic rhinitis BMI 28.0-28.9,adult Breast discharge Breast lump or mass Breast mass Breast pain, right Chest tightness Chronic female pelvic pain Diarrhea Dysuria Fainting episodes Fatigue Febrile seizures IBS (irritable bowel syndrome) Irregular menses Lymphadenopathy Menorrhagia Nipple discharge Other nail disorders Over weight Pelvic congestion syndrome Serous otitis media Shortness of breath Thyromegaly Vaginal discharge Viral syndrome Vitamin D deficiency Historical - Any problem that you are no longer receiving treatment for. Adult BMI 27.0-27.9 kg/sq m Adult body mass index 28.0-28.9 Gilbert syndrome Patient Survey You may receive a survey via text or e-mail asking about your office visit. Please share your experience with us by completing your survey. We appreciate your feedback and thank you for choosing us for your care. [facility] CampusProvider Letteron 12-29-2024 Provider LetterProvider Letter December 29, 2024 MILADIS DOUGHERTY [address] [place] [address] : 1995 To Whom It May Concern, Please excuse above patient from work. She was in our office for an appointment. Sincerely, [facility] [address] [place] [address] NhrkxoCohcddGenesis HospitalUrology Office/Clinic Noteon [id number] Office/Clinic NoteUrology Office/Clinic Note Chief Complaint Referred by Dia ROMERO for UTI HPI Staff 29 year old female referred by Dia ROMERO for UTI Pt. was in the ER on 12/13/24 due to pain with urination, LLQ abd pain and pelvic pain with vaginal bleeding C&S 12/22/24 - 25,000 cfu/ml E coli 12/15/24 - >100,000 cfu/ml E coli PVR 0mL BBSQ 19 Pt. having stress incontinence Pt. having pain with urination Pt. had gross hematuria a week half ago with UTI Pt. having abd pain History of Present Illness I have reviewed and verified the staff HPI to be accurate for this encounter. Review of Systems PHQ Score Initial Depression Screen Score: 0 SCORE no fever, chills, malaise, myalgia. no abdominal pain, nausea, vomiting. Physical Exam Vitals & Measurements HT: 64 in HT: 162 cm WT: 161.599 lb WT: 73.3 kg BMI: 27.93 General: Well developed, well nourished, in no acute distress. 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 Frequent UTI (N39.0: Urinary tract infection, site not specified) [facility] [place] 12/13/24 w/ c/o LLQ abd pain, pelvic pain, dysuria, vaginal bleeding. Diagnosed w/ UTI. Tx w/ keflex BID x 5 days UCX 12/13/24 - >100k E. Coli. 12/13/24 pelvis US - negative [facility] PCP 12/20/24 - she had continued UTI sxs. Prescribed an additional course of Keflex x 5 days. UCX 12/20/24 - 25k E. Coli PVR 0 ml today UA today w/ small blood only Reports she has had a UTI since September after having surgery for endometriosis by home child care provider Dr. Gandara at [facility] in [place]. States she has been on 4 different antibiotics since. She continues to c/o bladder pain and LLQ abd pain today. She finished Keflex a few days ago for UTI. States pain has improved since being treated with antibiotics, but still has a dull ache. She also reports foul and cloudy urine. Reviewed UA w/ patient. Offered to send urine for culture to ensure infection has cleared. She is agreeable. Patient also shares that she has a hx of interstitial cystitis diagnosed years ago by Dr. Gandara. See #2. Informed patient that IC may be the cause of her pain today, but will r/o continued infection first. She verbalizes understanding. All questions answered. Recommend starting kwyg-jeh-sbarkyc UTI prevention supplements including d- mannose, Cranberry and Probiotics to help decrease the number of urinary tract infections. Handout provided. Will order KUB/SUMMER to r/o kidney stones as contributing factor to UTI/pain. Call pt w/ results. KUBto be obtained IO. SUMMER will be scheduled at [facility]. If shows significant stone burden, pt will need appt to discuss tx options. Pt advised to contact our office w all future UTI sx so we can monitor urine cx results, treat appropriately (may require extended course abx), and monitor frequency of infections. If continues to get breakthrough UTIs, we will consider cystoscopy w possible UD. -Obtain KUB IO. Obtain SUMMER at [facility]. Order placed. Call pt w/ results -Send urine for culture, tx w/ antibiotics if positive -OTC supplements for UTI prevention -Increase water intake, avoid bladder irritants -Timed voids, double voids -F/U in 3 months, or sooner if needed Ordered: [id number] Measure Post Void residual urine and/or bladder capacity by US- non-imaging Urine Culture Urnls Dip Stick Auto w/o Microscopy POC 57481 US Renal XR Abdomen 1 View 2. Bladder pain (R39.89: Other symptoms and signs involving the genitourinary system) Shares hx of interstitial cystitis diagnosed years ago by Dr. Gandara at [facility] in [place]. 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 She has previously trialed bladderinstillations, that did not help her sxs. She has trialed PFPT in the past which also did not help.Never trialed OAB medications. She is aware that continued bladder/pelvic pain could be due to her IC and/or endometriosis. She verbalizes understanding. On [facility]: 09/26/2020: ROBOTIC ASSISTED LAPAROSCOPIC EXCISION OF ENDOMETRIOSIS, [...] vascularity with Hunner's lesions reflecting interstitial cystitis. -See #1 -NSAIDS and/or Pyridium PRN for pain/discomfort -Will try to obtain [facility] records. Release signed IO today. 3. Left lower quadrant abdominal pain (R10.32: Left lower quadrant pain) C/o JUNG king (more content not included)...[facility] Comment on above:Result Comment: Electronically Signed By: Miladis Mayberry PA-C\.br\Date and Time Signed: 12/29/24 18:53 EDTReminderson 12-27-2024 RemindersReminders From: Dia Ware To: [facility] - Clinical; Sent: 12/27/2024 15:46:25 EDT Show up: 12/27/2024 15:46:00 EDT Subject: urine culture Due Date/Time: 12/28/2024 15:45:00 EDT Please advise patient that urine culture was positive for bacterial growth. Current antibiotic appropriate for bacteria. Follow-up in 3 to 5 days if no improvement or worsening of symptoms. Thanks! Results: Date Result Type Ind Result Name 12/20/2024 MBO POS [facility]NoTrumbull [facility] Hospital Urineon [id number] identified Cx Nom (U)Microbiology PROCEDURE: Urine Culture [R1] SOURCE: U CleanCatch BODY SITE: COLLECTED DATE/TIME: 12/20/2024 11:41 EDT RECEIVED DATE/TIME: 12/20/2024 15:43 EDT START DATE/TIME: 12/20/2024 15:43 EDT FREE TEXT SOURCE: Dia Ware Kelsey E. FINAL REPORTS Final Report [] Verified Date/Time: 12/22/2024 10:49 EDT 25,000 cfu/ml Escherichia coli SUSCEPTIBILITY RESULTS LEGEND: S=Susceptible, N/R=Not Reported, Blank=Data not available, or drug not advisable or tested, I=Intermediate, ESBL=Extended spectrum beta-lactamase, R=Resistant, TFG=Thymidine-dependent strain, STEVEN=Beta-lactamase positive, LG=mcg/m;(mg/L), S*=Predicted susceptible interp, R*=Predicted resistant interp EC Antibiotic LG Dilutn LG Interp Ampicillin <=8 S Ampicillin/ <=8/4 S Sulbactam Aztreonam <=4 S Cefazolin <=2 S Cefepime <=2 S Ceftazidime <=1 S Ceftazidime/ <=8 S Avibactam Ceftriaxone <=1 S Cefuroxime 8 S Ciprofloxacin <=0.25 S Ertapenem <=0.5 S Gentamicin <=2 S Levofloxacin <=0.5 S Meropenem <=1 S Nitrofurantoin <=32 S Piperacillin/ <=8 S Tazobactam Tetracycline <=4 S Tobramycin <=2 S Trimethoprim/ <=2/38 S Sulfa Performing Locations R1: This test was performed at: [facility], [address] [place] [address], [id number] , , CnocfnMzslalSt. Mary's Medical [facility], Ironton CampusComment on above:Performed By: #### [id number] #### [facility] [address] [place] [address] Office/Clinic Noteon [id number] Medicine Office/Clinic NoteFacardinal [facility] Office/Clinic Note HPI Staff Former Surekha Rashid patient here today for ER follow up. Was seen in ER on 12/13 for LLQ abdominal pain, pelvic pain, vaginal bleeding, pain with urination. Does see a doctor in [place] (Dr. Timmons) specialization is endometriosis. States she has had a UTI since september, and has been on 4 different antibiotics. Concerns: Same as above. History of Present Illness I have reviewed and discussed the HPI (staff) with the patient today. Information was verified and is correct. Additional information provided if needed. Pt reports to office today for ER follow up. She was seen in [facility] 12/13, see ER note below: Medical Decision Making 29-year-old female to the emergency department chief complaint of left lower quadrant abdominal pain, dysuria urgency and frequency. Vital stable, the patient is afebrile. Her abdominal examination is benign. She appears in no distress. Urinalysis, ultrasound ordered. Patient agrees with this plan. Urinalysis is concerning for acute UTI. test is negative. Ultrasound of the pelvis is without any acute findings. Discussed results with the patient. She is concerned that UTI alone does not explain the severity of her pain. 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 We discussed return precautions. All questions were answered. She was sent home with a prescription for Keflex. [1] She finished 5 days of keflex Sees Dr Gandara in [place] for endometriosis--surgery in September with her. Ever since she has had ongoing UTI and has been on 4 different antibiotics per OBGYN Dr Gandara. She went to ER due to the vaginal bleeding and abd pain- pain has improved since then however the bloating and urinary pressure have continued. She is no longer having vaginal bleeding. She denies fevers, chills, body aches, n/v/d, black or bloody stool. She feels that this pain/bloating is due to a urinary/bladder issue rather than related to the endometriosis due to the urinary pressure and mild burning that she is feeling along with the continued UTI. Review of Systems PHQ Score Initial Depression Screen Score: 1 SCORE ROS negative unless otherwise stated in HPI. Physical Exam Vitals & Measurements HR: 90(Peripheral) RR: 16 BP: 104/78 SpO2: 98% HT: 162.0 cm HT: 64 in WT: 73.6 kg WT: 162.26 lb BMI: 28.04 PHYSICAL EXAM General: Well developed, well nourished, no apparent distress Head:Normocephalic, atraumatic Eyes:EOMI, sclera clear Nose:No deformity, discharge, inflammation or lesions Mouth:Mucosa moist. Normal oropharynx and posterior pharynx without lesions or exudate. Tongue normal. Neck:No bruit, symmetric Lungs:Lungs clear to auscultation Cardio:Regular rate and rhythm with no murmur Pulses:Pulses present in all four extremities Abdomen:Normal bowel sounds, non tender, no masses : not evaluated Musculoskeletal:Normal ROM of extremities, self ambulating Neuro:grossly normal Skin:No abnormal skin lesions Lymph Nodes: No cervical lymphadenopathy Mental Status: Alert and cooperative with appropriate mood and affect Assessment/Plan 1. UTI (urinary tract infection) (N39.0: Urinary tract infection, site not specified) Acute, ongoing. UA with trace leuks today. Plan to repeat course of antibiotics due to continued symptoms and send urine for culture. Take antibiotics until course complete. Drink plenty of water, avoid caffeinated drinks as this can irritate the bladder. Urinate often and try to empty the bladder each time. Refer to urology for ongoing urinary tract infections and pain with urination. Follow up if symptoms persist or worsen. 2. Urinary pain (R30.9: Painful micturition, unspecified) See above. 3. LLQ abdominal pain (R10.32: Left lower quadrant pain) Acute, improving slightly however the bloating continues. We will get CT abd/pelvis for further evaluation. Pt is aware of red flags/when to report to ER for emergency medical evaluation. We will call with results. 4. Abdominal bloating (R14.0: Abdominal distension (gaseous)) Acute, see #3. CT abd/pelvis. 5. BMI 28.0-28.9,adult (Z68.28: Body mass index [BMI] 28.0-28.9, adult) The standard range for ages 18 and older is >=18.5 and < 25 kg/m2. Your BMI today was above this range, this falls in the overweight to obese category and there are medical benefits to weight loss. We can offer counselling, referral, and/or medical support in addressing this problem. Your BMIand weight management will be followed at subsequent visits. 6. Over weight (E66.3: Overweight) Encourage healthy diet and lifestyle choices. UTI symptoms (R39.9: Unspecified symptoms and signs involving the genitourinary system) Ordered: Urine Culture Follow-up With When Contact Information Dia Ware In 1 month Additional Instructions: Patient Education Dysuria Abdominal Bloating Problem List/Past Medical History Ongoing Abnorm (more content not included)...[facility] CampusComment on above:Result Comment: Electronically Signed By: Dia Ware\.br\Date and Time Signed: 12/22/24 09:32 EDTAmbulatory Visit Summaryon [id number] Visit SummaryAmbulatory Visit Summary SVETLANADEDEBROOKEDejon MILADIS Julio C :1995 Visit Date:12/20/2024 Ambulatory Visit Instructions Your Diagnosis BMI 28.0-28.9,adult Over weight UTI symptoms Your Care Team Attending Physician - Dia Ware Primary Care Physician - Dia Ware This Is Your Medications List Contact prescribing physician if questions or concerns albendazole (albendazole 200 mg oral tablet) polyethylene glycol 3350 (polyethylene glycol 3350 Oral Pwdr for Recon) Procedures Performed Excision of cyst, fibroadenoma, or other benign or malignant tumor, aberrant breast tissue, duct lesion, nipple or areolar lesion (except 71087), open, male or female, 1 or more lesions (11/01/2020),Esophagogastroduodenoscopy (04/14/2019), Laparoscopy (2018), Colonoscopy (02/25/2015), wisdom teethremoved x4 (2010). Discharge Vitals Heart Rate (Peripheral) 90 Respiratory Rate 16 Blood Pressure 104/78 Height 162.0 cm Height 64 in Weight 73.6 kg Weight 162.26 lb BMI 28.04 What to do next Scheduled Follow-Up Appointments Wednesday 5:40 PM EDT With: Dia Ware Where: [facility] [address], [place] [address]- Medications What How Much When Why Instructions Unchanged albendazole (albendazole 200 mg oral tablet) 2 Tablets By Mouth Once Worms in stool Acutebronchitis with wheezing with food Contact prescribing physician if questions or concerns Unchanged polyethylene glycol 3350 (polyethylene glycol 3350 Oral Pwdr for Recon) 17 Gram By Mouth Every day dissolve in water before taking Contact prescribing physician if questions or concerns Allergies Bactrim (hives) Problems Ongoing - Any problem that you are currently receiving treatment for. Abnormal mammogram Allergic rhinitis BMI 28.0-28.9,adult Breast discharge Breast lump or mass Breast mass Breast pain, right Chest tightness Chronic female pelvic pain Diarrhea Dysuria Fainting episodes Fatigue Febrile seizures IBS (irritable bowel syndrome) Irregular menses Lymphadenopathy Menorrhagia Nipple discharge Other nail disorders Over weight Pelvic congestion syndrome Serous otitis media Shortness of breath Thyromegaly Vaginal discharge Viral syndrome Vitamin D deficiency Historical - Any problem that you are no longer receiving treatment for. Adult BMI 27.0-27.9 kg/sq m Adult body mass index 28.0-28.9 Gilbert syndrome Patient Survey You may receive a survey via text or e-mail asking about your office visit. Please share your experience with us by completing your survey. We appreciate your feedback and thank you for choosing us for your care. [facility] Urineon [id number] identified Cx Nom (U)Microbiology PROCEDURE: Urine Culture [R1] SOURCE: U CleanCatch BODY SITE: COLLECTED DATE/TIME: 12/13/2024 12:24 EDT RECEIVED DATE/TIME: 12/13/2024 14:20 EDT START DATE/TIME: 12/13/2024 14:20 EDT FREE TEXT SOURCE: Louis Santa DO, DO, Louis Nguyễn FINAL REPORTS Final Report [] Verified Date/Time: 12/15/2024 10:29 EDT >100,000 cfu/ml Escherichia coli SUSCEPTIBILITY RESULTS LEGEND: S=Susceptible, N/R=Not Reported, Blank=Data not available, or drug not advisable or tested, I=Intermediate, ESBL=Extended spectrum beta-lactamase, R=Resistant, TFG=Thymidine-dependent strain, STEVEN=Beta-lactamase positive, LG=mcg/m;(mg/L), S*=Predicted susceptible interp, R*=Predicted resistant interp EC Antibiotic LG Dilutn LG Interp Ampicillin <=8 S Ampicillin/ <=8/4 S Sulbactam Aztreonam <=4 S Cefazolin <=2 S Cefepime <=2 S Ceftazidime <=1 S Ceftazidime/ <=8 S Avibactam Ceftriaxone <=1 S Cefuroxime <=4 S Ciprofloxacin <=0.25 S Ertapenem <=0.5 S Gentamicin <=2 S Levofloxacin <=0.5 S Meropenem <=1 S Nitrofurantoin <=32 S Piperacillin/ <=8 S Tazobactam Tetracycline <=4 S Tobramycin <=2 S Trimethoprim/ <=2/38 S Sulfa Performing Locations R1: This test was performed at: [facility], [address] [place] [address], [id number]- , , ReddinSsnhaqSt. Mary's Medical [facility], Ironton CampusComment on above:Performed By: #### [id number] #### [facility] [address] [place] [id number] Note-Physicianon [id number] Note-PhysicianED Note-Physician Basic Information Time Seen: Louis Santa DO 12/13/2024 12:15 Chief Complaint pain with urination x 1 week, LLQ abd. pain and pelvic pain with vaginal bleeding and pain. LMP 2 weeks ago. hx ovarian cysts. intermittent nausea. History of Present Illness 29-year-old female to the emergency department with chief complaint of dysuria urgency and frequency ongoing for the last week. Symptoms seem to worsen over the last 2 days. Patient reports she then developed some left lower quadrant pain today which was sharp stabbing. She felt a pop in her pelvis. She reports pain is worsened since then. She has a history of ovarian cysts and believe this may be the issue. Review of Systems A 10 point review of systems is negative except as noted above. Medical and Surgical History: Reviewed and noted Social history: Lives at home Tobacco: Denies Physical Exam Vitals & Measurements T: 36.9 ???C(Oral) HR: 92(Monitored) RR: 16 BP: 110/64 SpO2: 99% HT: 162 cm WT: 73.4 kg BMI: 27.97 VITALS: I have reviewed the triage vital signs. GENERAL: Well developed, well appearing adult in no acute distress. NEURO: Alert and oriented. Moves all extremities. Face is symmetric and expressive. EYES: PERRL. No scleral icterus or conjunctival injection. No discharge. HENT: Normocephalic, atraumatic. Hearing is grossly intact. Nares grossly patent and without discharge. Mucous membranes moist. NECK: No JVD. Patient moves neck without restriction. CARDIO: Rhythm regular. Normal rate. No murmur, rub, or gallop. Pulses equal bilaterally in the upper and lower extremity. No lower extremity edema. PULM: Lungs clear to auscultation in all bates. No wheezes, rales, or rhonchi. No conversational dyspnea. No splinting, stridor, or accessory muscle use. GI/: Abdomen is soft and non-tender. Normoactive bowel sounds. EXTREMITIES: Symmetric muscle bulk. No joint swelling. No clubbing, cyanosis, or deformity. SKIN: Warm and dry. Normal turgor. No rash or lesions appreciated. PSYCH: Mood, affect, and interaction is appropriate to the setting. Medical Decision Making 29-year-old female to the emergency department chief complaint of left lower quadrant abdominal pain, dysuria urgency and frequency. Vital stable, the patient is afebrile. Her abdominal examination is benign. She appears in no distress. Urinalysis, ultrasound ordered. Patient agrees with this plan. Urinalysis is concerning for acute UTI. test is negative. Ultrasound of the pelvis is without any acute findings. Discussed results with the patient. She is concerned that UTI alone does not explain the severity of her pain. 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 We discussed return precautions. All questions were answered. She was sent home with a prescription for Keflex. Assessment/Plan Acute UTI (N39.0: Urinary tract infection, site not specified) Orders: cephalexin, 500 mg = 1 cap(s), Oral, q12hr, X 5 day(s), # 10 cap(s), Refills(s) 0, Pharmacy: [facility]/pharm[facility] #[id number], 162, cm, 12/13/24 12:19:00 EDT, Height/Length Dosing, 73.4, kg, 12/13/24 12:19:00 EDT,Weight Dosing U Beta Hcg Qual UA with Cult Rflx Urine Culture US Pelvis Non-OB Complete Disposition Plan Patient Discharge Condition Stable Discharge Disposition Home Discharge Prescription List Prescriptions Keflex 500 mg Cap, 500 mg= 1 cap(s), Oral, q12hr Follow-up With When Contact Information Thania OWENS In 3 days 12/16/2024 EDT [facility] A [address] Business (1) Additional Instructions: Call the office of your primary care doctor to arrange for follow-up within the above-stated timeframe. Follow-up with your primary care doctor about this ED visit. You should review your labs, imaging, and diagnoses from this ED visit with your primary care physician. There are occasionally non-emergent findings that require additional follow-up after your ED visit. If you were prescribed medications you should discuss possible side- effects and drug interactions with your pharmacist. Call 911 or go to the nearest Emergency Department if you develop any new or worsening symptoms. Seek immediate medical attention if you develop: worsening abdominal pain, new or worsening nausea, new or worsening vomiting, new or worsening diarrhea, chest pain, shortness of breath, pain with urination, problems urinating, fever, chills, weakness, or any new or worsening symptoms. Patient Education Urinary Tract Infection, Adult Problem List/Past Medical History Ongoing Abnormal mammogram Allergic rhinitis BMI 25.0-25.9,adult Breast discharge Breast lump or mass Breast mass Breast pain, right Chest tightness Chronic female pelvic pain Diarrhea Dysuria Fainting episodes Fatigue Febrile seizures IBS (irritable bowel syndrome) Irregular menses Lymphadenopathy Menorrhagia Nipple discharge Other nail disorders (more content not included)...[facility] CampusComment on above: Result Comment: Electronically Signed By: Louis Santa DO\.br\Date and Time Signed: 12/14/24 07:00 EDTED Clinical Summaryon [id number] Clinical SummaryED Clinical Summary [address] [address] ED Clinical Summary Person Information Name: MILADIS DOUGHERTY Julio C [place] Age: 29 Years : 1995 Sex: Female Language: Iranian PCP: Thania OWENS DO, FAAFP Marital Status: Phone: [phone] Visit Id: Visit Reason: Nausea; Vaginal bleeding; Dysuria; Pelvic pain; SEVERE PELVIC PAIN - VOMITTING Speciality: Acuity: 3 Enc Type: Emergency Med Service: Emergency Arrival: 12/13/2024 12:10:18 Discharge: 12/13/2024 16:30:00 LOS: 000 04:20 Checkin: 12/13/2024 12:10:18 Checkout: 12/13/2024 16:30:00 Dispo Type: Home (Routine DC) EVENTS: Event Name Event Status Request Date/Time Start Date/Time Complete Date/Time Arrive Complete 12/13/2024 12:10:18 12/13/2024 12:10:18 12/13/2024 12:10:18 Document Home Meds Request 12/13/2024 12:10:18 Triage Complete 12/13/2024 12:10:18 12/13/2024 12:19:21 12/13/2024 12:19:21 Bed Assign Complete 12/13/2024 12:14:03 12/13/2024 12:14:03 12/13/2024 12:14:03 Dr Exam Complete 12/13/2024 12:14:03 12/13/2024 12:15:32 12/13/2024 12:15:32 RN Exam Complete 12/13/2024 12:14:03 12/13/2024 12:52:19 12/13/2024 12:52:19 Registration Complete 12/13/2024 12:15:32 12/13/2024 13:21:29 12/13/2024 13:21:29 Pending Labs Complete 12/13/2024 12:19:32 12/13/2024 12:38:45 Lab Complete 12/13/2024 12:19:32 12/13/2024 12:36:30 Urine Collect Complete 12/13/2024 12:19:32 12/13/2024 12:36:30 Pending Labs Inlab 12/13/2024 12:38:45 12/13/2024 12:38:45 Lab Inlab 12/13/2024 12:38:45 12/13/2024 12:38:45 US Complete 12/13/2024 12:57:22 12/13/2024 14:03:21 12/13/2024 14:22:26 Reg Complete Request 12/13/2024 13:21:29 Reg Bed Request Complete 12/13/2024 13:21:29 12/13/2024 13:21:29 12/13/2024 13:21:29 Discharge Complete 12/13/2024 16:29:13 12/13/2024 16:38:01 12/13/2024 16:38:01 Transfer Complete 12/13/2024 16:38:01 12/13/2024 16:38:01 12/13/2024 16:38:01 ADDRESS: [address] [facility] [id number] PHYS DOC NOTES: MEDICAL INFORMATION: Prescriptions Given: New Medications [id number], [address] [place], [place] [id number], [phone] cephalexin (Keflex 500 mg Cap) 1 Capsules By Mouth every 12 hours for 5 Days. Refills: 0. Medications to Continue with No Changes Other Medications albendazole (albendazole 200 mg oral tablet) 2 Tablets By Mouth Once. with food. Refills: 0. polyethylene glycol 3350 (polyethylene glycol 3350 Oral Pwdr for Recon) 17 Gram By Mouth every day.dissolve in water before taking. Refills: 0. PATIENT EDUCATION INFORMATION: Instructions: Urinary Tract Infection, Adult Follow up: With: Address: When: Thania De Anda Kera, [place] [address] Business (1) In 3 days 12/16/2024 Comments: Call the office of your primary care doctor to arrange for follow-up within the above-stated timeframe. Follow-up with your primary care doctor about this ED visit. You should review your labs, imaging, and diagnoses from this ED visit with your primary care physician. There are occasionally non-emergent findings that require additional follow-up after your ED visit. If you were prescribed medications you should discuss possible side-effects and drug interactions with your pharmacist. Call 911 or go to the nearest Emergency Department if you develop any new or worsening symptoms. Seek immediate medical attention if you develop: worsening abdominal pain, new or worsening nausea, new or worsening vomiting, new or worsening diarrhea, chest pain, shortness of breath, pain with urination, problems urinating, fever, chills, weakness, or any new or worsening symptoms. DIAGNOSIS: Acute UTINormalFisher Acmc Healthcare System Glenbeigh CenterED Patient Summaryon [id number] Patient SummaryED Patient Summary [address] [address] Patient Discharge Instructions Person Information Name: MILADIS DOUGHERTY Age: 29 Years Arrival Date: 12/13/2024 12:10:18 Discharge Diagnosis: Acute UTI Primary Care Physician: Thania OWENS DO, FAAFP Provider Information Primary Provider: Louis Santa DO Advanced Cinder Pit Crane Operator:None The exam and treatment you received in the Emergency Department were for an urgent problem and are not intended as complete care. It is important that you follow up with a doctor, nurse practitioner,or physician???s family practice physician assistant for ongoing care. If your symptoms become worse or you do not improve asexpected and you are unable to reach your usual health care provider, you should return to the Emergency Department. We are available 24 hours a day. MILADIS DOUGHERTY has been given the following list of patient education materials, prescriptionsand follow-up instructions: Follow-up Instructions: With: Address: When: Thania OWENS [address] [place] [address] [place] [address] Business (1) In 3 days 12/16/2024 Comments: Call the office of your primary care doctor to arrange for follow-up within the above-stated timeframe. Follow-up with your primary care doctor about this ED visit. You should review your labs, imaging, and diagnoses from this ED visit with your primary care physician. There are occasionally non-emergent findings that require additional follow-up after your ED visit. If you were prescribed medications you should discuss possible side-effects and drug interactions with your pharmacist. Call 911 or go to the nearest Emergency Department if you develop any new or worsening symptoms. Seek immediate medical attention if you develop: worsening abdominal pain, new or worsening nausea, new or worsening vomiting, new or worsening diarrhea, chest pain, shortness of breath, pain with urination, problems urinating, fever, chills, weakness, or any new or worsening symptoms. In the event that this physician does not participate in your insurance network, please consult with your insurance company to find a nearby participating provider. Patient Education Materials: Urinary Tract Infection, Adult A MESSAGE TO ALL PATIENTS REGARDING OPIOIDS PRESCRIPTION OPIOIDS: WHAT YOU NEED TO KNOW Prescription opioids can be used to help relieve efiymqkr-hb-xhpdmg pain and are often prescribed following a [...] as well, even when taken as directed: ??? Tolerance???meaning you might need to take more of the medication for the same pain relief ??? Physical dependence???meaning you have symptoms of withdrawal when a medication is stopped ??? Increased sensitivity to pain ??? Constipation ??? Nausea, vomiting, and dry mouth ??? Sleepiness and dizziness ??? Confusion ??? Depression ??? Low levels of testosterone that can result in lower sex drive, energy, and strength ??? Itching and sweating RISKS ARE GREATER WITH: ??? History of drug misuse, substance use disorder, or overdose ??? Mental health conditions (such as depression or anxiety) ??? Sleep apnea ??? Older age (65 years and older) ??? Avoid alcohol while taking prescription opioids. Also, unless specifically advised by your health care provider, medications to avoid include: ??? Benzodiazepines (such as Xanax or Valium) ??? Muscle relaxants (such as Soma or Flexeril) ??? Hypnotics (such as Ambien or Lunesta) ??? Other prescription opioids KNOW YOUR OPTIONS Talk to your health care provider about ways to manage your pain that don???t involve prescription opioids. Some of these options may actually work better and have fewer risks and side effects. Options may include: ??? Pain relievers such as acetaminophen, ibuprofen, and naproxen ??? Some medication that are also used for depression or seizures ??? Physical therapy and exercise ??? Cognitive behavioral therapy, a psychological, goal-directed approach, in which patients learn how to modify physical, behavioral, and emotional triggers of pain and stress. IF YOU ARE PRESCRIBED OPIOIDS FOR PAIN: ??? Never take opioids in greater amounts or more often than prescribed. ??? Follow up with your primary health care provider. o Work together to create a plan o (more content not included)...OhioHealth Mansfield HospitalEROLOGYOrdered By: Mariel Stafford on [id number].beta subunit (U) [Moles/Vol]NegativeNormalFT Man SeroU BetaHcg Qualon 12-13-2024 HCG.beta subunit (U) [Moles/Vol]NegativeNormalMiami Valley HospitalComment on above:Performed By: #### [id number] #### [facility] [address] [place], [place] [address]LQ with Cult Rflxon [id number] Auto Ql (U)1+ /HPF AbnormalTraceMiami Valley HospitalComment on above:Performed By: #### [id number] #### [facility] [address] [place], [place] [address]Eskyptyda Ql (U)NegativeNormalNegativeMiami Valley HospitalComment on above:Performed By: #### [id number] #### [facility] [address] [place], [place] [address]Zbhqajf (U)ClearNormalClearMiami Valley HospitalComment on above:Performed By: #### [id number] #### [facility] [address] [place], [place] [address]Lotfa (U)Light-YellowNormalYellowMiami Valley Hospital Comment on above:Result Comment: Microscopic readings are only performed on those samples that meet specific criteria set forth by [facility].Performed By: #### [id number] #### [facility] [address] [place], [place] [address]Tujayfizfz cells.squamous Auto (Urine sed) [#/Area]3-4Invalid Interpretation CodeMiami Valley HospitalComment on above:Performed By: #### [id number] #### [facility] [address] [place], [place] [address]Dngkvsg Ql (U)NegativeNormalNegWooster Community Hospital Comment on above:Performed By: #### [id number] #### [facility] [address] [place], [place] [address]Iawnyvtgmb Auto test strip (U) [Mass/Vol]NegativeNormalNegative [facility] HospitalComment on above:Performed By: #### [id number] #### [facility] [address] [place], [place] [address]Hgtorhe Auto test strip Ql (U)NegativeNormalNegativeMiami Valley HospitalComment on above:Performed By: #### [id number] #### [facility] [address] [place], [place] [address]Nqvmokzpd esterase Auto test strip Ql (U)75 Familia/uLAbnormal NegativeMiami Valley HospitalComment on above:Performed By: #### [id number] #### [facility] [address] [place], [place] [address]Hxfez Auto Ql (U)TraceNormalNegWooster Community Hospital Comment on above:Performed By: #### [id number] #### [facility] [address] [place], [place] [address]Yaqkyxu Auto test strip Ql (U)NegativeNormalNegativeMiami Valley HospitalComment on above:Performed By: #### [id number] #### [facility] [address] [place] [address]wN (U)6.0 [pH]Invalid Interpretation Code5.0-9.0Mi[facility] Valley HospitalComment on above:Performed By: #### [id number] #### [facility] [address] [place], [place] [address]Jpbtuwg Ql (U)NegativeNormalNegWooster Community Hospital Comment on above:Performed By: #### [id number] #### [facility] [address] [place], [place] [address]SAX Ql (U)8-8Autorn7-6MhpznxShelby Memorial HospitalComment on above:Performed By: #### [id number] #### [facility] [address] [place], [place] [address]Sqwzobqo gravity (U) [Rel density]1.022Invalid Interpretation Code1.005-1.030Mi[facility] Valley HospitalComment on above:Performed By: #### [id number] #### [facility] [address] [place] [address]Lpbjifafufrc (U) [Mass/Vol]NegativeNormalNegativeMiami Valley HospitalComment on above:Performed By: #### [id number] #### [facility] [address] [place] [id number] Auto (Urine sed) [#/Area]79-43Jzrrzmta6-0MbtxikShelby Memorial HospitalComment on above:Performed By: #### [id number] #### [facility] [address] [place] [address]Hlnj of Urine collection methodClean CatchNoalMiami Valley HospitalComment on above:Performed By: #### [id number] #### [facility] [address] [place] [id number] By: SYSTEM SYSTEM on 28-72-4379Wuositsi Auto Ql (U)1+ /HPFInvalid Interpretation CodeTrace/HPFDRUMRIGHT REGIONAL HOSPITAL [facility] [place] UA Auto SSBilirubin Ql (U) NegativeNormalNegativemg/dLDRUMRIGHT REGIONAL HOSPITAL – [facility] UA Auto SSClarity (U)Clear (12/13/24 12:24 PM)NormalClearFOKLAHOMA ER & HOSPITAL [facility] UA Auto SSColor (U)Light-Yellow 1 (12/13/24 12:24 PM)NormalYellowDRUMRIGHT REGIONAL HOSPITAL – [place] UA Auto SSComment on above:Interpretive Data: Microscopic readings are only performed on those samples that meet specific criteria set forth by [facility].Epithelial cells.squamous Auto (Urine sed) [#/Area]3-4 graded/HPFInvalid Interpretation CodeDRUMRIGHT REGIONAL HOSPITAL – [place] UA Auto SSGlucose Ql (U)NegativeNormalNegativemg/dLDRUMRIGHT REGIONAL HOSPITAL – [place] UA Auto SS Hemoglobin Auto test strip (U) [Mass/Vol]NegativeNormalNegativemg/dLFT UA Auto SSKetones Auto test strip Ql (U)NegativeNormalNegativemg/dLFT UA Auto SS Leukocyte esterase Auto test strip Ql (U)75 Familia/uL Familia/uLInvalid Interpretation CodeNegativeLeu/uLDRUMRIGHT REGIONAL HOSPITAL – [place] UA Auto SSMucus Auto Ql (U)Trace graded/LPFNormal Negativegraded/LPFFTMC UA Auto SSNitrite Auto test strip Ql (U)NegativeNormal Negativemg/dLFT UA Auto SSpH (U)6.0 *NA* (12/13/24 12:24 PM)Invalid Interpretation Code5.0 - 9.0DRUMRIGHT [facility] [place] UA Auto SSProtein Ql (U)NegativeNormalNegativemg/dLDRUMRIGHT REGIONAL HOSPITAL [facility] [place] UA Auto SSRBC Ql (U)0-3 graded/HPFNormal 0-3graded/HPFDRUMRIGHT REGIONAL HOSPITAL – [place] UA Auto SSSpecific gravity (U) [Rel density]1.022 *NA* (12/13/24 12:24 PM)Invalid Interpretation Code1.005 - 1.030DR[facility] [place] UA Auto SS Urobilinogen (U) [Mass/Vol]NegativeNormalNegativemg/dLDRUMRIGHT REGIONAL HOSPITAL [facility] [place] UA Auto SSWBC Auto (Urine sed) [#/Area]16-25 graded/HPFInvalid Interpretation Code0-5graded/HPFDRUMRIGHT REGIONAL HOSPITAL – [place] UA Auto SSURINALYSISOrdered By: Alka Plata on [id number] Spec DescClean Catch (12/13/24 12:24 PM)NormalDRUMRIGHT REGIONAL HOSPITAL – [place]UM[place] UA Auto SSUS Pelvis Non-OB Completeon [id number] Pelvis Non-OB CompleteExam Date/Time: 12/13/2024 14:22 EDT Reason for Exam: left sided pain,;Pelvic pain Report IMPRESSION: NEGATIVE ULTRASOUND OF THE PELVIS. EXAM: US Pelvis Non-OB Complete, US Transvaginal Non-OB DATE: 12/13/2024 2:03 PM CLINICAL HISTORY: Pelvic pain, left sided pain,. COMPARISON: CT abdomen and pelvis 07/15/2024. TECHNIQUE: Transabdominal ultrasound was performed to visualize the entirety of the pelvis. Transvaginal scanning was performed to provide better detail of the uterus and ovaries. FINDINGS: The uterus is anteverted and mildly retroflexed in position, and otherwise unremarkable in appearance. Both ovaries appear within normal limits for the patient's age group. Equivalent blood flow is noted to both ovaries on Doppler analysis. There is no significant free fluid, abnormal adnexal masses, or other findings of concern identified. The uterine measurements and estimated volume: Uterus Length: 9.9 cm Uterus Width: 5.6 cm Uterus Height: 4.7 cm Uterus Volume: 135.2 cm3 Endometrium Thickness: 1.4 cm The right ovary measurements and estimated volume: Right Ovary Length: 3.0 cm Right Ovary Width: 2.7 cm Right Ovary Height: 1.3 cm Right Ovary Volume: 5.6 cm3 The left ovary measurements and an estimated volume are: Report Left Ovary Length: 2.2 cm Left Ovary Width: 3.1 cm Left Ovary Height: 2.6 cm Left Ovary Volume: 9.5 cm3 Ordering Provider: Louis Santa FINAL REPORT Dictated: 12/13/2024 3:39 pm Chon Mari MD Signed (Electronic Signature): 12/13/2024 3:39 pm Signed by: Chon Mari MD Transcribed by: SEBASTIAN Technologist: [facility] Community HospitalBacteria identified Aer cx Nom (Unsp spec)on [id number] identified Cx Nom (U)SEE NOTEAbnormalOhioHealthComment on above: CULTURE, URINE, ROUTINE Micro Number: [id number] Test Status: Final Specimen Source: Urine, clean catch Specimen Quality: Adequate Result: 50,000-100,000 CFU/mL of Escherichia coli E.coli INT LG AMOX/CLAVULANATE S <8/4 AMPICILLIN S <8 AMP/SULBACTAM S <4/2 CEFAZOLIN NR <2 1 CEFEPIME S <2 CEFTAZIDIME S <1 CEFTRIAXONE S <1 CEFUROXIME, SODIUM S <4 CIPROFLOXACIN S <0.25 GENTAMICIN S <2 IMIPENEM S <1 LEVOFLOXACIN S <0.5 MEROPENEM S <1 NITROFURANTOIN S <32 PIP/TAZOBACTAM S <8 TOBRAMYCIN S <2 TRIMETHOPRIM/SULFA S <0.5/9.5 S = Susceptible I = Intermediate R = Resistant NS = Not susceptible SDD = Susceptible Dose Dependent * = Not Tested NR = Not Reported NN = See Therapy Comments THERAPY COMMENTS Note 1: ORAL therapy: A cefazolin LG of <32 predicts susceptibility to the oral agents cefaclor, cefdinir, cefpodoxime, cefprozil, cefuroxime, cephalexin, and loracarbef when used for therapy of uncomplicated UTIs due to E. coli, K. pneumoniae, and P. mirabilis. PARENTERAL therapy: A cefazolin LG of >8 indicates resistance to parenteral cefazolin. Interpretation and review of laboratory resultsAbnormalOhioHealthOhioHealth CULTURE, URINE, ROUTINEon [id number], URINE, ROUTINESEE NOTEAbnormalQuest DiagnosticsComment on above:Result Comment: CULTURE, URINE, ROUTINE Micro Number: [id number] Test Status: Final Specimen Source: Urine, clean catch Specimen Quality: Adequate Result: 50,000-100,000 CFU/mL of Escherichia coli E.coli INT LG AMOX/CLAVULANATE S <8/4 AMPICILLIN S <8 AMP/SULBACTAM S <4/2 CEFAZOLIN NR <2 1 CEFEPIME S <2 CEFTAZIDIME S <1 CEFTRIAXONE S <1 CEFUROXIME, SODIUM S <4 CIPROFLOXACIN S <0.25 GENTAMICIN S <2 IMIPENEM S <1 LEVOFLOXACIN S <0.5 MEROPENEM S <1 NITROFURANTOIN S <32 PIP/TAZOBACTAM S <8 TOBRAMYCIN S <2 TRIMETHOPRIM/SULFA S <0.5/9.5 S = Susceptible I = Intermediate R = Resistant NS = Not susceptible SDD = Susceptible Dose Dependent * = Not Tested NR = Not Reported NN = See Therapy Comments THERAPY COMMENTS Note 1: ORAL therapy: A cefazolin LG of <32 predicts susceptibility to the oral agents cefaclor, cefdinir, cefpodoxime, cefprozil, cefuroxime, cephalexin, and loracarbef when used for therapy of uncomplicated UTIs due to E. coli, K. pneumoniae, and P. mirabilis. PARENTERAL therapy: A cefazolin LG of >8 indicates resistance to parenteral cefazolin.Performed By: #### [id number] #### [facility] [place] [address] [place] , [address] [place] [address] Data Network Architect: Marcelino Jimenes MDURINALYSIS, COMPLETEon [id number] (U)CLEARNormalCLEARQuest DiagnosticsComment on above:Performed By: #### [id number] #### [facility] of [address] [place] [address] Data Network Architect: Marcelino Jimenes MDBACTERIANONE SEENNormalNONE SEENQuest DiagnosticsComment on above:Performed By: #### [id number] #### [facility] of [place] [address] Data Network Architect: Marcelino Jimenes MDBilirubin Ql (U)NegativeNormalNEGATIVEQuest DiagnosticsComment on above:Performed By: #### [id number] #### [facility] [place] [address] Data Network Architect: Marcelino Jimenes MDColor (U)YELLOWNormalYELLOWQuest Diagnostics Comment on above:Performed By: #### 5463 #### [facility] [place] [address] Data Network Architect: Marcelino Jimenes MDGlucose Ql (U)NegativeNormalNEGATIVEQuest DiagnosticsComment on above:Performed By: #### 5463 #### [facility] [place] [address] [address] [place] [address] Data Network Architect: Marcelino Jimenes MDHYALINE CAST0-5AbnormalNONE SEENQuest DiagnosticsComment on above:Performed By: #### 5463 #### [facility] [place] [address] Data Network Architect: Marcelino Jimenes MDKetones Ql (U)NegativeNormalNEGATIVEQuest DiagnosticsComment on above:Performed By: #### 5463 #### [facility] of [address], [address] [place] [address] Data Network Architect: Marcelino Jimenes MDLeukocyte esterase Test strip Ql (U)2+Abnormal NEGATIVEQuest DiagnosticsComment on above:Performed By: #### 5463 #### [facility] [place] [address] Data Network Architect: Marcelino Jimenes MDNitrite Ql (U)NegativeNormalNEGATIVEQuest DiagnosticsComment on above:Performed By: #### 5463 #### [facility] [place] [address] Data Network Architect: Marcelino iJmenes MDNOTENormalQuest DiagnosticsComment on above: Result Comment: This urine was analyzed for the presence of WBC, RBC, bacteria, casts, and other formed elements. Only those elements seen were reported.Performed By: #### 5463 #### [facility] [place] [address] Data Network Architect: Marcelino Jimenes MDOCCULT BLOODNegativeNormalNEGATIVEQuest DiagnosticsComment on above:Performed By: #### 5463 #### [facility] [place] [address] Data Network Architect: Marcelino Jimenes MDpH (U)5.5 [pH]Normal5.0-8.0[facility] Comment on above:Performed By: #### 5463 #### [facility] [place] [address] Data Network Architect: Marcelino Jimenes MDProtein Ql (U)NegativeNormalNEGATIVEQuest DiagnosticsComment on above:Performed By: #### 5463 #### [facility] [place] [address] Data Network Architect: Marcelino MYERSBCNONE SEENNormal< OR = 2[facility] Comment on above:Performed By: #### 5463 #### [facility] [place] [address] Data Network Architect: Marcelino CONTIpecific gravity (U) [Rel density]1.018Normal 1.001-1.035Quest DiagnosticsComment on above:Performed By: #### 5463 #### [facility] [address], [address] [place] [address] Data Network Architect: Marcelino CONTIQUAMOUS EPITHELIAL CELLS0-5Normal< OR = 5 [facility] DiagnosticsComment on above:Performed By: #### 5463 #### [facility] [address], [address] [place] [address] Data Network Architect: Marcelino Jimenes MDFSEMP17-29Amotwhed< OR = 5[facility] Comment on above:Performed By: #### 5463 #### [facility] [address], [address] [place] [address] Data Network Architect: Marcelino Jimenes MDUrinalysison 30-59-0914Daqqymvrwf (U)CLEAR CLEAROhioHealthBacteria LM.HPF (Urine sed) [#/Area]NONE SEENNONE SEEN /HPF OhioHealthBilirubin Ql (U)NegativeNEGATIVEOhioHealthColor (U)YELLOWYELLOW OhioHealthEpithelial cells.squamous LM.HPF (Urine sed) [#/Area]0-5< OR = 5 /HPF OhioHealthGlucose Ql (U)NegativeNEGATIVEOhioHealthHemoglobin Ql (U)Negative NEGATIVEOhioHealthHyaline casts (Urine sed) [#/Area]0-5AbnormalNONE SEEN /LPF OhioHealthInterpretation and review of laboratory resultsAbnormalOhioHealth Ketones Ql (U)NegativeNEGATIVEOhioHealthLeukocyte esterase Test strip Ql (U)2+ AbnormalNEGATIVEOhioHealthNitrite Ql (U)NegativeNEGATIVEOhioHealthpH (U)5.5 [pH] 5.0 - 8.0OhioHealthProtein Ql (U)NegativeNEGATIVEOhioHealthRBC LM.HPF (Urine sed) [#/Area]NONE SEEN< OR = 2 /HPFOhioHealthService comment (Unsp spec) [Interp]SEE NOTEOhioHealthComment on above:This urine was analyzed for the presence of WBC, RBC, bacteria, casts, and other formed elements. Only those elements seen were reported. Specific gravity (U) [Rel density]1.0181.001 - 1.035OhioHealthWBC LM.HPF (Urine sed) [#/Area]20-40Abnormal< OR = 5 /HPFOhioHealthOhioHealthCBCon 96-85-0622HTNO NRBC0.0 %NormalRiFulton County Health CenterComment on above:Performed By: #### [id number] ####[facility] [address] [place] [address] Ottoniel Larson M.D. [id number] NRBC ABS COUNT0.00 K/mcL Normal0.00-0.00RiFulton County Health CenterComment on above:Performed By: #### 09582 ####[facility] [address] [place] [address] Ottoniel Larson M.D. [id number] distribution width (RBC) [Ratio]12.2 %Nikspt23.6-14.8RiFulton County Health CenterComment on above: Performed By: #### 23620 ####[facility] [address] [place] [address] Ottoniel Larson M.D. [id number] (Bld) [Volume fraction]40.4 %Mdedjr74.0-46.0RiFulton County Health CenterComment on above:Performed By: #### 59033 ####[facility] [address] [place], [place] [address] Ottoniel Larson M.D. [id number] Hemoglobin (Bld) [Mass/Vol]13.8 g/xZGfywqx47.0-16.0[facility] Comment on above:Performed By: #### 77092 ####[facility] [address] [place] [address] Ottoniel Larson M.D. [id number] (RBC) [Entitic mass]29.4 cfZrnjfh04.0-34.0RiEast [place] Regional Hospital HospitalComment on above:Performed By: #### 92230 ####[facility] [address] [place] [address] Ottoniel Larson M.D. [id number] (RBC) [Entitic vol]86.0 aCBndqeu19.0-100.0 [facility] HospitalComment on above:Performed By: #### 50132 ####[facility] [address] [place] [address] Ottoniel Larson M.D. [id number] CORPUSCULAR HEMOGLOBIN CONC34.2 g/fURgkaxe78.0-37.0RiFulton County Health CenterComment on above:Performed By: #### 16590 ####[facility] [address] [place] [address] Ottoniel Larson M.D. [id number] mean volume (Bld) [Entitic vol]10.4 fLNormal9.4-12.4RiversClermont County Hospital HospitalComment on above:Performed By: #### 83233 ####[facility] [address] [place] [address] Ottoniel Larson M.D. [id number] Platelets (Bld) [#/Vol]183 10*3/mSCetdsj982-870Kxnjupztk [facility] Comment on above:Performed By: #### 30977 ####[facility] [address] [place] [address] Ottoniel Larson M.D. [id number] (Bld) [#/Vol]4.70 10*6/uLNormal4.00-5.20RiFulton County Health CenterComment on above:Performed By: #### 15678 ####[facility] [address] [place], [place] [address] Ottoniel Larson M.D. [id number] (Lobitod) [#/Vol]1087 10*3/uLNormal4.50 [facility] HospitalComment on above:Performed By: #### 48029 ####[facility] [address] [place], [place] [address] Ottoniel Larson M.D. 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 Risks of surgery reviewed in great detail, risks of bleeding, infection, injury to surrounding organs, bowel, bladder, ureters, risks of anesthesia and blood clots discussed. All questions were answered and consent was obtained. FINDINGS: Normal appearing external genitalia. Uterus sounded to 9cm. Cervix measured 3.5cm. Uterine cavity intact. Normal appearing bilateral tubal ostia. Normal-appearing upper abdomen, diaphragm, liver, gallbladder and stomach. Normal appearing ovaries with a follicular cyst in the right ovary. 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 Left ovary adherend to the left ovarian fossa and sigmoid colon. Small fibroids noted on the uterus. Minimal recurrent endometriosis. Bladder mucosa with inflammation and increased vascularity and with Hunner's lesions reflecting interstitial cystitis. SURGEON: Darlin Ortega MD ENGINE SETTER: Celena Poe CNP No qualified Resident was available to bedside assist in the case therefore due to the complexity, Celena Poe CNP was utilized as my visitor service assistant. OR STAFF: Food Handler: Christine Dalton RN; Josee Vera RN Scrub Person: Antonieta Diehl ST Financial Analysis Manager: Dereje Serrato Assist: Celena Poe CNP ANESTHESIA STAFF: Anesthesiologist: Noah Grady MD SPECIMEN(S): ID Type Source Tests Collected by Time Destination A : LARGE BOWEL MESENTERY - ENDO Tissue Pelvis TISSUE EXAM Darlin Ortega MD 09/12/2024 0900 B : left pelvic sidewall Tissue Pelvis TISSUE EXAM Darlin Ortega MD 09/12/2024 0908 C : LEFT URETERAL -ENDO Tissue Pelvis TISSUE EXAM Darlin Ortega MD 09/12/2024 0910 D : LEFT UTERAL SACRAL-ENDO Tissue Pelvis TISSUE EXAM Darlin Ortega MD 09/12/2024 0913 E : ENDOMETRIAL CURETTAGE Curettage Endometrium TISSUE EXAM Darlin Ortega MD 09/12/2024 0930 IMPLANTS: Implant Name Type Inv. Item Serial No. Maintenance Instructor Lot No. LRB No. Used Action BARRIER 5 X 6IN ADHESION TC 7 INTERCEED - [id number] BARRIER 5 X 6IN ADHESION TC 7 INTERCEED ETHICON [id number] N/A 1 Implanted CATH 5IN EXPANSION ON-Q SILVERSOAKER - [id number] Catheter - Implant CATH 5IN EXPANSION ON-Q SILVERSOAKER [employer] [id number] N/A 1 Implanted CATH 5IN EXPANSION ON-Q SILVERSOAKER - [id number] Catheter - Implant CATH 5IN EXPANSION ON-Q SILVERSOAKER [employer] [id number] N/A 1 Implanted PUMP 600ML DUAL ON-Q TMKBTK-H-[id number] - [id number] PUMP 600ML DUAL ON-Q ZAHXRF-B-EATH [id number] [employer] N/A 1 Implanted ESTIMATED BLOOD LOSS: 25 mL UOP: 85 mL TYPE OF ANESTHESIA USED: General INTRA AND IMMEDIATE POST-OP COMPLICATIONS: None PROCEDURE: After the risks, benefits, indications and alternatives of the procedure were discussed with the patient and informed consent was obtained, the patient was taken to the OR with IV running. She was placed in the dorsal lithotomy position and she was secured to the OR table with Winkelman Pad. She was tested in extreme Trendelenburg prior to initiation of the procedure. She was then prepped vaginally with undiluted Hibiclens and abdominally with Chloro-prep. After the appropriate 3 minute wait time, she was draped in the usual sterile fashion for a robotic-assisted procedure. An intra-operative time out was undertaken, the operative room staff was apprised of the upcoming procedure and a common mental model was achieved. Attention was then turned to the vagina. A Morton catheter was placed in the bladder. A weighted speculum was placed in the vaginal canal, and the uterus was sounded to 9cm. The endocervical canal was then progressively dilated with Hanks and Hegar dilators. The hysteroscope was then gently advanced under direct visualization to her fundus, the cavity was distended with fluids and the cavity was visualized. (more content not included)...NormalRiverside [facility] GLUCOSE - [facility] 09-12-2024 Glucose [Mass/Vol]90 mg/aLSmhgar43-71QzdcexahtFulton County Health CenterComment on above:Performed By: #### [id number] #### [facility] [address] [place] [address] [id number] RMHPOCGlucose [Mass/Vol]84 mg/sHDwwvlg20-95IjrtkbetvFulton County Health CenterCompromedica [facility] on above:Performed By: #### 01119 #### [facility] [address] [place] [address] [id number] HPOCPO , URINE - [facility]72-88-3264Ognq HCG ( test) Ql (U) NegativeNormalNegativeRiversClermont County Hospital HospitalComment on above:Order Comment: Negative: Dilute urine specimens, as indicated by a low specific gravity (<1.010)may not contain representitive levels of hCG. If is still suspected, a serum test or repeat urine test using a first morning urine specimen should be considered.Performed By: #### [id number] #### [facility] [address] [place] [address] [id number] RMHPOCTISSUE EXAMon [id number] EXAMSurgical Pathology Report Case: [id number] Authorizing Provider: Darlin Ortega, Collected: 09/12/2024 09:00 AM Ordering [facility]: [facility] Received: 09/12/2024 10:23 AM Hospital Periop Pathologist: Dre Bansal MD Specimens: A) - Pelvis, LARGE BOWEL MESENTERY - ENDO B) - Pelvis, left pelvic sidewall C) - Pelvis, LEFT URETERAL -ENDO D) - Pelvis, LEFT UTERAL SACRAL-ENDO E) - Endometrium, ENDOMETRIAL CURETTAGE A. Peritoneum, large bowel mesentery, biopsy: -Benign fibroadipose tissue. B. Peritoneum, left pelvic sidewall, biopsy: -Benign fibroadipose tissue. C. Peritoneum, left ureter, biopsy: -Benign fibroadipose tissue. D. Peritoneum, left uterosacral, biopsy: -Benign fibroadipose tissue. E. Endometrium, curettage: -Secretory endometrium. There is no definitive histologic evidence of endometriosis in specimens A through D. Specimen A. Received in formalin labeled Miladis Cha A and designated large bowel mesentery endo are six blue-dyed fragments of peritoneum and adipose tissue, ranging from 0.7 x 0.2 x 0.2 cm to 1 x 0.2 x 0.2 cm. Two of the pieces are sectioned. All /. Specimen B. Received in formalin labeled Sathish Chaen A and designated left pelvic sidewall is a portion of erythematous peritoneum, 0.7 x 0.2 x 0.2 cm. The specimen is bisected. All 09/02. Specimen C. Received in formalin labeled Semaj, Miladis A and designated left ureteral endo is a portion of purple peritoneum, 1 x 0.7 x 0.2 cm. Both portions of tissue are bisected. All 10/31. Specimen D. Received in formalin labeled Semaj, Miladis A and designated left ureteral sacral endo is an erythematous portion of peritoneum, 1.5 x 0.2 x 0.1 cm. All 08/02. Specimen E. Received in formalin labeled Semaj, Miladis A and designated endometrial curettings is a 3.0 x 2.0 x 0.3 cm aggregate of smith tissue and blood. All . ARJ/MM/gld Gross examination performed at: [facility] - [address] [place] [address] Microscopic examination is performed.[facility] Memorial HospitalComment on above:Performed By: #### 91066 #### [facility] [address] [place] [address] Ottoniel Larson M.D. [id number] type and Indirect antibody screen panel (Bld)on 28-00-6333CNS and Rh group Nom (Bld)Blood group O Rh(D) positiveOhioHealthBlood group antibody screen QlNegativeOhioHealthSpecimen Vwktscw6409/22/2024 23:59 ESTOhioHealth [facility] [id number] NRBC0.0 %[facility] Comment on above:Performed By: #### [id number] #### [facility] [address] [place] [address] Ottoniel Larson M.D. [id number] NRBC ABS COUNT0.00 K/mcLNormal0.00-0.00[facility] HospitalComment on above:Performed By: #### [id number] #### [facility] [address] [place], [place] [address] Ottoniel Larson M.D. [id number] distribution width (RBC) [Ratio]12.3 %Jglchu25.6-14.8 [facility] HospitalComment on above:Performed By: #### 44751 #### [facility] [address] [place] [address] Ottoniel Larson M.D. [id number] (Bld) [Volume fraction]45.7 %Hbwdqj01.0-46.0RiEast [place] Regional Hospital HospitalComment on above:Performed By: #### 93399 #### [facility] [address] [place] [address] Ottoniel Larson M.D. [id number] (Bld) [Mass/Vol]15.1 g/qDOtxksr87.0-16.0RiEast [place] Regional Hospital HospitalComment on above:Performed By: #### 68904 #### [facility] [address] [place] [address] Ottoniel Larson M.D. [id number] (RBC) [Entitic mass]29.0 krBfdapv04.0-34.0RiEast [place] Regional Hospital HospitalComment on above:Performed By: #### 57465 #### [facility] [address] [place] [address] Ottoniel Larson M.D. [id number] (RBC) [Entitic vol]87.7 uZAhrfgq93.0-100.0RiEast [place] Regional Hospital HospitalComment on above:Performed By: #### 37861 #### [facility] [address] [place] [address] Ottoniel Larson M.D. [id number] CORPUSCULAR HEMOGLOBIN CONC33.0 g/kSIdggrk88.0-37.0RiEast [place] Regional Hospital HospitalComment on above:Performed By: #### 83683 #### [facility] [address] [place] [address] Ottoniel Larson M.D. [id number] mean volume (Bld) [Entitic vol]10.2 fLNormal9.4-12.4RiversSamaritan North Health CenterComment on above:Performed By: #### 03366 #### [facility] [address] [place], [place] [address] Ottoniel Larson M.D. [id number] (Bld) [#/Vol]204 10*3/vDXkdcul406-069Aiehtfxqw Methodist HospitalComment on above:Performed By: #### 95428 #### [facility] [address] [place] [address] Ottoniel Larson M.D. [id number] (Bld) [#/Vol]5.21 10*6/uLHigh4.00-5.20RiFulton County Health Center Comment on above:Performed By: #### 45091 #### [facility] [address] [place] [address] Ottoniel Larson M.D. [id number] (Bld) [#/Vol]6.44 10*3/uLNormal4.50-11.00RiFulton County Health CenterComment on above:Performed By: #### 77206 #### [facility] [address] [place] [address] Ottoniel Larson M.D. [id number] panel Auto (Bld)on 95-99-1415Fhuwudhbzim distribution width (RBC) [Entitic vol]12.3 %11.6 - 14.8 %OhioHealthHematocrit (Bld) [Volume fraction]45.7 %36.0 - 46.0 %OhioHealthHemoglobin (Bld) [Mass/Vol]15.1 g/dL12.0 - 16.0 g/dL IowaHealthInterpretation and review of laboratory resultsAbnormalOhioHealthMCH (RBC) [Entitic mass]29 pg26.0 - 34.0 pgOhioHealthMCHC (RBC) [Mass/Vol]33 g/dL 31.0 - 37.0 g/dLOhioHealthMCV (RBC) [Entitic vol]87.7 fL80.0 - 100.0 fL [place]HealthNucleated RBC (Bld) [#/Vol]0 10*3/uLOhioHealthNucleated RBC/100 WBC (Bld) [Ratio]0 %OhioHealthPlatelet mean volume (Bld) [Entitic vol]10.2 fL9.4 - 12.4 fLOhioHealthPlatelets (Bld) [#/Vol]204 10*3/uLOhioHealthRBC (Bld) [#/Vol] 5.21 10*6/uLHighOhioHealthWBC (Bld) [#/Vol]6.44 10*3/uLOhioHealthOhioHealthH AND Charanjit 09-01-2024H AND P Attestation signed by Trey Wang MD at 09/03/2024 4:23 PM Patient not personally seen by myself. I did review the documentation and medication recommendations of ELEAZAR Ji and agree with plan as below. Assessment and Plan 1. Interstitial cystitis / Endometriosis/ Pelvic pain Now with plans for surgical intervention on 09/12/24 2. Pre-op examination Acceptable risk for proposed procedure pending review of the following: CBC Patient provided instructions on pre-endoscopy management of medications including withholding Aspirin, NSAIDS, and specific Herbal Supplements. 3. Preoperative cardiovascular examination Ke Revised Cardiac Index Risk Factors: zero . At home, patient able to complete > 4 METS as evidenced by ability to climb two flights of stairs without CP or dyspnea. Chronic medical conditions that increase perioperative risk not captured with RCRI include: none. On physical exam, patient does not have demonstrate any evidence of clinically significant cardiac murmur, ACS or congestive heart failure. Most recent cardiac testing: none indicated. After chart review and discussion with patient, qualifies for Low Risk (0-1 RCRI with good functional status). . Further cardiac testing will not reduce patients risk and okay to proceed without further testing. The patient has an APFEL score of 4. Defer consideration of preoperative prophylactic therapy to anesthesia. Final decision to take patient to OR left to risk/benefit decision making of surgical team. 4. PONV (postoperative nausea and vomiting) Recommend consideration for perioperative antiemetic prophylaxis per anesthesia. 5. IBS Hx. Stable Chief Complaint Patient presents with Pre-operative Medical Risk Stratification History of Present Illness Miladis Cha is a 28 y.o. female who presents at the request of Darlin Ortega MD 09/12/2024 prior to PELVISCOPY ROBOTIC XI - SIMPLE. This is a pleasant 28-year-old female who has a previous diagnosis of endometriosis, pelvic congestion syndrome and several miscarriages. She has been following with SUPERVISOR FLESHING and with the symptoms that have been progressively worsening has plans for the aforementioned procedure on 09/12/2024. She presents today for cardiovascular preoperative examination prior to the procedure. The patient specifically denied any history of hypertension, dyslipidemia, diabetes, chronic kidney disease, coronary artery disease, valvular heart disease, heart failure, stroke, DVT or PE. She reports she has never undergone any cardiac testing for any reason. There is mention in the chart of anemia and she says she believes this was with her 8 years ago her most recent labs which I did review demonstrated no anemia. 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 She has undergone prior surgical intervention and did note postop nausea vomiting and we will be sure to notify anesthesia of this. She is a non-smoker and no regular alcohol use. She has never been diagnosed with sleep apnea. today she is feeling in her normal state of health without any recent fevers chills open sores or acute complaints. Today I personally reviewed prior medical records and have summarized my findings in my assessment and plan as noted above. Today I also personally reviewed recent labs including (CBC, hepatic function panel, BMP 07/15/2024), diagnostics (cardiac testing as noted), and security system sales consultant/other provider recommendations (SUPERVISOR FLESHING 08/17/2024, Su Gotti CNP 07/19/2024 ED visit 07/15/24). The note was dictated using dax [employer] dictation system. The voice recognition software is inherently subject to errors including those of syntax and sound-alike substitutions which may escape proofreading. In such instances, original meaning may be extrapolated by contextual derivation. Past Medical History: Diagnosis Date Anemia 08/21/2024 Back pain Bladder problem Interstitial cystitis Endometriosis Fibroid 2019 IBS (irritable bowel syndrome) Irregular menstrual cycle 08/19/2020 Migraine headache 08/21/2024 Pelvic congestion syndrome PONV (postoperative nausea and vomiting) Past Medical History Pertinent Negatives: Diagnosis Date Noted Abnormal ECG 04/02/2022 Abnormal Pap smear of cervix 04/02/2022 Alcoholism (HCC) 04/02/2022 Asthma 09/23/2020 Cancer (HCC) 04/02/2022 Cervical cancer (HCC) 04/02/2022 CHF (congestive heart failure) (HCC) 04/02/2022 Chronic kidney disease 04/02/2022 Chronic kidney disease (CKD) 09/23/2020 Cirrhosis (HCC) 04/02/2022 Clotting disorder 04/02/2022 Complication of anesthesia 09/23/2020 COPD (chronic obstructive pulmonary disease) with emphysema (HC (more content not included)...NormalRiverside Restorationism HospitalTYPE AND SCREENon 09-01-2024 TYPE AND SCREENABORH: O Positive AB SCREEN: Negative EXPIRATION DATE: 09/22/2024 23:59 ESTNormalRiverside Restorationism HospitalComment on above:Performed By: #### [id number] #### [facility] [address] [place] [id number] Connie Franco MD [id number] HTSCT Abdomen/Pelvis w/ Contraston [id number] Abdomen/Pelvis w/ ContrastExam Date/Time: 07/15/2024 20:13 EST Reason for Exam: Pain Report IMPRESSION: NO ACUTE ABDOMINOPELVIC PROCESS. NONOBSTRUCTING LEFT RENAL CALCULI. EXAM: CT Abdomen/Pelvis w/ Contrast History: Abdominal pain Technique: Multiple contiguous axial images were obtained of the abdomen and pelvis from the level of the lung bases through the ischial tuberosities with contrast. Multiplanar reformats were obtained. Delayed images were obtained. Unless otherwise stated, incidental findings identified in this report do not require routine follow-up imaging. Comparison: CT abdomen pelvis 10/02/2022 Findings: Bilateral dependent subsegmental atelectasis. The liver, gallbladder, spleen, stomach, pancreas, and adrenal glands are within normal limits. The kidneys enhance uniformly. Two nonobstructing left renal calculi are identified, the largest which measures approximately 5 mm. No obstructing urinary tract calculi or hydronephrosis. Urinary bladder is poorly distended. No overt abnormality of the urinary bladder. Uterus is present. Abdominal aorta is nonaneurysmal. No retroperitoneal or abdominal/pelvic lymphadenopathy. No small bowel obstruction. No overt colonic mass or pericolonic inflammation. No findings of acute appendicitis. No free fluid or free air. No acute osseous abnormality. All CT scans at this facility use dose modulation, iterative reconstruction, and/or weight based dosing when appropriate to reduce radiation dose to as low as reasonably achievable. Report Ordering Provider: Ephraim Botello FINAL REPORT Dictated: 07/16/2024 9:12 am Alethea Hankins DO Signed (Electronic Signature): 07/16/2024 9:12 am Signed by: Alethea Hankins DO Transcribed by: SEBASTIAN Technologist: AP Technical Comments GFR (mL/min/1/73m2) age Contrast: Isovue 300 Contrast amount in ml's: 95NormalMiami Valley HospitalBMPon 07-15-2024 Anion gap [Moles/Vol]9 mmol/LNormal6-16[facility] HospitalComment on above:Performed By: #### [id number] #### [facility] [address], [place] [address]Invljcr [Mass/Vol]9.0 mg/dLNormal8.9-11.1[facility] CenterComment on above:Performed By: #### [id number] #### [facility] [address], [place] [address]Rclhyjoi [Moles/Vol]108 mmol/MYsnayb006-880IadpyqMiami Valley HospitalComment on above:Performed By: #### [id number] #### [facility] [address], [place] [address]JC0 [Moles/Vol]27 mmol/ELejfvt22-16StxchvMiami Valley Hospital Comment on above:Performed By: #### [id number] #### [facility] [address], [place] [address]Qsvvkneimn [Mass/Vol]0.6 mg/dLNormal0.5-1.3FShelby Memorial HospitalComment on above:Performed By: #### [id number] #### [facility] [address], [place] [address]Cwoxiqh [Mass/Vol]108 mg/wHNdocng02-546PkfvaiMiami Valley HospitalComment on above:Performed By: #### [id number] #### [facility] [address], [place] [address]Ozepqdsnw [Moles/Vol]3.8 mmol/LNormal3.5-5.3FShelby Memorial HospitalComment on above:Performed By: #### [id number] #### [facility] [address], [place] [address]Ecnrcz [Moles/Vol]140 mmol/NRlkqxv785-665NglfrmMiami Valley HospitalComment on above:Performed By: #### [id number] #### [facility] [address], [place] [address]Mglj nitrogen [Mass/Vol]15 mg/dLNormal5-21[facility] HospitalComment on above:Performed By: #### [id number] #### [facility] [address], [place] [address]Ytjq nitrogen/Creatinine [Mass ratio]25 No FwdazIawm24-15UbilffMiami Valley HospitalComment on above:Performed By: #### [id number] #### [facility] [address], [place] [address]JQX w/ Auto Diffon [id number]/100 WBC (Bld)0.4 %Normal 0.0-2.0[facility] HospitalComment on above:Performed By: #### [id number] #### [facility] [address] [place] [address]Rkzbgelwn/Leukocytes Auto (Bld) [Pure # fraction]0.0 E9/LNormal 0.0-0.2FShelby Memorial HospitalComment on above:Performed By: #### [id number] #### [facility] [address] [place] [address]Fzenfwsbrim (Bld) [#/Vol]0.1 E9/LNormal0.0-0.5FShelby Memorial HospitalComment on above:Performed By: #### [id number] #### [facility] [address] [place] [address]Vcpseukrodm/100 WBC (Bld)1.4 %Normal0.0-8.0[facility] HospitalComment on above:Performed By: #### [id number] #### [facility] [address] [place] [address]Ggstrfmacji distribution width (RBC) [Ratio]13.5 %Normal 10.9-14.2FShelby Memorial HospitalComment on above:Performed By: #### [id number] #### [facility] [address] [place] [address]Zvrdjlnoaw (Bld) [Volume fraction]36.2 %Wiruvn52.0-46.0[facility] HospitalComment on above:Performed By: #### [id number] #### [facility] [address] [place] [address]Zfeokdwklc (Bld) [Mass/Vol]12.5 g/mJUhalnq76.0-16.0[facility] HospitalComment on above:Performed By: #### [id number] #### [facility] [address] [place] [address]Wzevwhdaery (Bld) [#/Vol]1.6 E9/LNormal1.0-4.0[facility] HospitalComment on above:Performed By: #### [id number] #### [facility] [address] [place] [address]Kojrobjbrwe/100 WBC (Bld)27.9 %Qfgiox73.0-50.0[facility] HospitalComment on above:Performed By: #### [id number] #### [facility] [address] [place] [address] 19843SZF (RBC) [Entitic mass]30.3 etQahpld66.0-34.0[facility] HospitalComment on above:Performed By: #### [id number] #### [facility] [address] [place] [address]QICU (RBC) [Mass/Vol]34.6 g/nQEsttjw68.4-36.0[facility] HospitalComment on above:Performed By: #### [id number] #### [facility] [address] [place] [address]DUO (RBC) [Entitic vol]87.5 iACkcoee87.0-100.0[facility] HospitalComment on above:Performed By: #### [id number] #### [facility] [address] [place] [address]Jovotlghz (Bld) [#/Vol]0.4 E9/LNormal0.2-1.0[facility] HospitalComment on above:Performed By: #### [id number] #### [facility] [address] [place] [address]Nftutetxjsb (Bld) [#/Vol]3.6 E9/LNormal2.0-7.5FShelby Memorial HospitalComment on above:Performed By: #### [id number] #### [facility] [address] [place] [address]Slilksuvhpj/100 WBC (Bld)63.1 %Pxswdt47.0-75.0[facility] HospitalComment on above:Performed By: #### [id number] #### [facility] [address], [place] [address]Rrkdxorr716.0 E9/DJieynu312.0-500.0[facility] Comment on above:Performed By: #### [id number] #### [facility] [address], [place] [address]Wixgmxct mean volume (Bld) [Entitic vol]8.3 fLNormal6.4-10.8 [facility] HospitalComment on above:Performed By: #### [id number] #### [facility] [address] [place] [address]SZT (Bld) [#/Vol]4.1 E12/LLow4.3-5.9[facility] Comment on above:Performed By: #### [id number] #### [facility] [address] [place] [address]ZUV corrected for nucl RBC Auto (Bld) [#/Vol]5.7 E9/LNormal 4.0-11.0[facility] HospitalComment on above:Performed By: #### [id number] #### [facility] [address] [place] [address]QVUWHYKVRFzdlwix By: SYSTEM SYSTEM on 48-90-8252Vqicdgq [Mass/Vol]4.0 g/dLNormal3.3 - 5.0 gm/dLRemisol ChemAlbumin/Globulin [Mass ratio] 1.5 {ratio}Normal1.1 - 2.2Remisol ChemALP [Catalytic activity/Vol]72 [iU]/d Evjhth76 - 98 Int._Unit/LRemisol ChemALT No additional P-5'-P [Catalytic activity/Vol]12 [iU]/dNormal6 - 46 Int._Unit/LRemisol ChemAnion gap [Moles/Vol]9 mmol/LNormal6 - 16 mEq/LRemisol ChemAST [Catalytic activity/Vol]17 [iU]/dNormal 5 - 43 Int._Unit/LRemisol ChemBilirubin [Mass/Vol]0.7 mg/dLNormal0.0 - 1.1 mg/dL Remisol ChemBilirubin.direct [Mass/Vol]0.1 mg/dLNormal0.0 - 0.4 mg/dLRemisol ChemBilirubin.indirect [Mass or moles/Vol]0.6 mg/dLNormal0.1 - 0.9 mg/dLRemisol ChemCalcium [Mass/Vol]9.0 mg/dLNormal8.9 - 11.1 mg/dLRemisol ChemChloride [Moles/Vol]108 mmol/JLayygb874 - 111 mmol/LRemisol ChemCO2 [Moles/Vol]27 mmol/L Iknuvs73 - 31 mmol/LRemisol ChemCreatinine [Mass/Vol]0.6 mg/dLNormal0.5 - 1.3 mg/dLRemisol VvryiSOF809 mL/min/1.73 m7Znowin>=59mL/min/1.73 t2Ztuxzgf Chem Globulin (S) [Mass/Vol]2.6 g/dLNormal1.4 - 4.0 gm/dLRemisol ChemGlucose [Mass/Vol]108 mg/hCWxonlw31 - 199 mg/dLRemisol ChemLipase [Catalytic activity/Vol]35 U/NAvkxkb71 - 58 unit/LRemisol ChemPotassium [Moles/Vol]3.8 mmol/LNormal3.5 - 5.3 mmol/LRemisol ChemProtein [Mass/Vol]6.6 g/dLNormal6.0 - 7.8 gm/dLRemisol ChemSodium [Moles/Vol]140 mmol/KUokwsv101 - 145 mmol/LRemisol ChemUrea nitrogen [Mass/Vol]15 mg/dLNormal5 - 21 mg/dLRemisol ChemUrea nitrogen/Creatinine [Mass ratio]25 mg/fqSjwf36 - 20Remisol ChemED Clinical Summaryon [id number] Clinical SummaryED Clinical Summary [address] [address] ED Clinical Summary Person Information Name: MILADIS CHA/[facility] Age: 28 Years : 1995 Sex: Female Language: Iranian PCP: Thania OWENS DO, FAAFP Marital Status: Single Phone: [phone] Visit Id: Visit Reason: Vomiting; Nausea; Abdominal distention; Abdominal pain; SEVERE ABD PAIN, BLOATING Speciality: Acuity: 3 Enc Type: Emergency Med Service: Emergency Arrival: 07/15/2024 18:56:55 Discharge: 07/15/2024 21:17:26 LOS: 000 02:21 Checkin: 07/15/2024 18:56:55 Checkout: 07/15/2024 21:17:26 Dispo Type: Home (Routine DC) EVENTS: Event Name Event Status Request Date/Time Start Date/Time Complete Date/Time Arrive Complete 07/15/2024 18:56:55 07/15/2024 18:56:55 07/15/2024 18:56:55 Document Home Meds Request 07/15/2024 18:56:55 Triage Complete 07/15/2024 18:56:55 07/15/2024 19:11:09 07/15/2024 19:11:09 Registration Complete 07/15/2024 18:59:58 07/15/2024 18:59:58 07/15/2024 18:59:58 Reg Complete Request 07/15/2024 18:59:58 Reg Bed Request Complete 07/15/2024 18:59:58 07/15/2024 18:59:58 07/15/2024 18:59:58 Bed Assign Complete 07/15/2024 19:04:42 07/15/2024 19:04:42 07/15/2024 19:04:42 Dr Exam Complete 07/15/2024 19:04:42 07/15/2024 19:05:22 07/15/2024 19:05:22 RN Exam Complete 07/15/2024 19:04:42 07/15/2024 19:13:58 07/15/2024 19:13:58 Registration Start 07/15/2024 19:05:22 07/15/2024 19:06:37 Pending Labs Complete 07/15/2024 19:15:37 07/15/2024 19:40:29 Pending Labs Complete 07/15/2024 19:35:41 07/15/2024 20:25:21 Lab Complete 07/15/2024 19:35:41 07/15/2024 20:25:21 Meds Admin Complete 07/15/2024 19:35:41 07/15/2024 19:49:41 Patient Care Complete 07/15/2024 19:35:41 07/15/2024 19:50:34 Pending Labs Complete 07/15/2024 19:43:15 07/15/2024 19:43:15 07/15/2024 19:51:43 Lab Complete 07/15/2024 19:43:15 07/15/2024 19:43:15 07/15/2024 19:51:43 Urine Collect Complete 07/15/2024 19:43:15 07/15/2024 19:43:15 07/15/2024 19:51:43 CT Complete 07/15/2024 19:56:02 07/15/2024 19:57:19 07/15/2024 20:13:20 Pending Labs Complete 07/15/2024 19:58:08 07/15/2024 19:58:08 07/15/2024 20:25:21 Lab Complete 07/15/2024 19:58:08 07/15/2024 19:58:08 07/15/2024 20:25:21 Discharge Complete 07/15/2024 21:07:32 07/15/2024 21:17:31 07/15/2024 21:17:31 Transfer Complete 07/15/2024 21:17:31 07/15/2024 21:17:31 07/15/2024 21:17:31 ADDRESS: [address] [place] [phone] PHYS DOC NOTES: MEDICAL INFORMATION: Prescriptions Given: New Medications [facility]/pharmacy #[id number], [address] [place], [place] [id number], [phone] docusate (docusate sodium 100 mg Cap) 1 Capsules By Mouth 2 times a day for 7 Days. Refills: 0. naproxen (naproxen 500 mg Tab) 1 Tablets By Mouth 2 times a day as needed Pain for 7 Days. Refills:0. polyethylene glycol 3350 (polyethylene glycol 3350 Oral Pwdr for Recon) 17 Gram By Mouth every day.dissolve in water before taking. Refills: 0. Medications to Continue with No Changes Other Medications albendazole (albendazole 200 mg oral tablet) 2 Tablets By Mouth Once. with food. Refills: 0. PATIENT EDUCATION INFORMATION: Instructions: Abdominal Pain, Adult Follow up: With: Address: When: Jose L Hartley [address], [address] [place] [phone] Business (1) In 5 days 07/20/2024 With: Address: When: Thania OWENS [address], [place] [address] Business (1) In 3 days DIAGNOSIS: Abdominal painNormalFisher Johnston Medical CenterED Note-Physicianon [id number] Note-PhysicianED Note-Physician Basic Information Time Seen: Ephraim Botello DO 07/15/2024 19:05 Chief Complaint pt to ER c/o abd pain and distention in the umbilical region that started 1 week ago. Pt seen by [facility], recommended follow up with [facility]. Pt also reports n/v. History of Present Illness HPI: Patient is a 28-year-old female with past medical history of endometriosis who presents the EDfor abdominal pain and bloating. Patient states that this for started 1 week ago and has been constant since that time. She states that the pain is in her lower abdomen below her bellybutton just to the left midline and does not radiate. The pain has slowly been worsening over its duration. She feel s that she has bloating associated with this. She has also had some nausea but without vomiting. She denies fever or chills. She denies any urinary symptoms. She is currently on day 2 of her menstruation. She reports that she was seen 3 days ago at an outside hospital and was told that she had a ovarian cyst as well as some endometrial thickening and was prescribed oral Toradol, Bentyl, and hydrocodone which she is taking but the pain is worsening and she is no longer having any relief. She didfeel that when she had had a bowel movement today the pain seemed to increase. ROS: Pertinent review of systems conducted and is negative except as noted above. Physical exam: General: nontoxic appearing and in no distress HEENT: Mucous membranes moist Neuro: awake and alert Neck: supple, trachea midline Card: Heart regular rate and rhythm no murmur Resp: Lungs clear to auscultation no wheeze or rhonchi Abd: Soft and nondistended. Suprapubic and left lower quadrant tenderness without rebound or guarding. Ext: No gross deformity or edema Physical Exam Vitals & Measurements T: 36.7 ???C(Oral) HR: 75(Peripheral) RR: 18 BP: 117/79 SpO2: 97% HT: 160 cm WT: 74.1 kg BMI: 28.95 Medical Decision Making MEDICAL DECISION MAKING Number and Complexity of Problems Differential Diagnosis: [] [facility] Data External documents reviewed: N/A My EKG interpretation: Noted in chart if applicable My CT interpretation: N/A My X-ray interpretation: Noted in chart if applicable My Ultrasound interpretation: N/A Decision rules/scores evaluated: N/A Discussed with: N/A Treatment and Disposition ED Course: Patient is nontoxic-appearing and in no distress. She does have some tenderness in the suprapubic and left lower quadrant without peritonitis. She is afebrile here in the ED. Will obtain blood work, urinalysis, as well as CT of the abdomen pelvis. She was given a dose of morphine for pain control. Blood work is very reassuring. Urine shows a few RBCs without signs of acute infection. CT of the abdomen pelvis with contrast shows 2 nonobstructing left renal stones. No hydronephrosis.No other acute abdominal or pelvic process identified. On reevaluation patient states that her pain is currently significantly improved. We discussed the results of her lab work and imaging. With her ongoing symptoms I do believe she would benefit from referral to gastroenterology. We will give her the information for Dr. Hartley who is on-call. We will also start on bowel regimen of MiraLAX and Colace. She also has an appointment with her SUPERVISOR FLESHING on Wednesday which I encouraged her to keep. Patient states understanding and agreement with this plan was discharged in stable condition. Shared decision making: As above Code status: N/A Assessment/Plan Abdominal pain (R10.9: Unspecified abdominal pain) Orders: docusate, 100 mg = 1 cap(s), Oral, BID, X 7 day(s), # 14 cap(s), Refills(s) 0, Pharmacy: [facility]/pharmacy #[id number], 160, cm, 07/15/24 19:11:00 EST, Height/Length Dosing, 74.1, kg, 07/15/24 19:11:00 EST, Weight Dosing morphine, 4 mg = 1 mL, Injection, IV Push, Once, Stop date 07/15/24 19:34:00 EST, STAT, Start date 07/15/24 19:34:00 EST, 07/15/24 19:34:00 EST polyethylene glycol 3350, 17 gram, Oral, Daily, dissolve in water before taking, # 527 gram, Refills(s) 0, Pharmacy: [facility]/pharmacy #[id number], 160, cm, 07/15/24 19:11:00 EST, Height/Length Dosing, 74.1, kg, 07/15/24 19:11:00 EST, Weight Dosing Add on Test Basic Metabolic Panel CBC w/ Auto Diff CT Abdomen/Pelvis w/ Contrast eGFR Hepatic Function Panel Lipase Level Saline Lock Insert U Beta Hcg Qual UA with Cult Rflx Medications Administered Given morphine 4 mg/mL Inj, 4 mg, IV Push Disposition Plan Discharge Prescription List Prescriptions docusate sodium 100 mg Cap, 100 mg= 1 cap(s), Oral, BID naproxen 500 mg Tab, 500 mg= 1 tab(s), Oral, BID, PRN polyethylene glycol 3350 Oral Pwdr for Recon, 17 gm, Oral, Daily Follow-up With When Contact Information Jose L Hartley In 5 days 07/20/2024 EST [address], [address] [place] [phone] Business (1) Additional Instructions: Thania OWENS In 3 days [address], [place] [address]- [phone] Business (1) Additional Instruction (more content not included)...[facility] CampusComment on above:Result Comment: Electronically Signed By: Ephraim Botello DO\.br\Date and Time Signed: 07/15/24 21:14 ESTED Patient Summaryon [id number] Patient SummaryED Patient Summary [facility] [address] [place], [place] [address] Patient Discharge Instructions Person Information Name: MILADIS CHA Age: 28 Years Arrival Date: 07/15/2024 18:56:55 Discharge Diagnosis: Abdominal pain Primary Care Physician: Thania OWENS DO, FAAFP Provider Information Primary Provider: Ephraim Botello DO Advanced Cinder Pit Crane Operator:None The exam and treatment you received in the Emergency Department were for an urgent problem and are not intended as complete care. It is important that you follow up with a doctor, nurse practitioner,or physician???s family practice physician assistant for ongoing care. If your symptoms become worse or you do not improve asexpected and you are unable to reach your usual health care provider, you should return to the Emergency Department. We are available 24 hours a day. MILADIS CHA has been given the following list of patient education materials, prescriptions and follow-up instructions: Follow-up Instructions: With: Address: When: Jose L Hartley [address], [address] [place] [phone] Business (1) In 5 days 07/20/2024 With: Address: When: Thania OWENS [address], [address] [place] [phone] Business (1) In 3 days In the event that this physician does not participate in your insurance network, please consult with your insurance company to find a nearby participating provider. Patient Education Materials: Abdominal Pain, Adult A MESSAGE TO ALL PATIENTS REGARDING OPIOIDS PRESCRIPTION OPIOIDS: WHAT YOU NEED TO KNOW Prescription opioids can be used to help relieve mhgrnajz-cd-xfxhas pain and are often prescribed following a [...] as well, even when taken as directed: ??? Tolerance???meaning you might need to take more of the medication for the same pain relief ??? Physical dependence???meaning you have symptoms of withdrawal when a medication is stopped ??? Increased sensitivity to pain ??? Constipation ??? Nausea, vomiting, and dry mouth ??? Sleepiness and dizziness ??? Confusion ??? Depression ??? Low levels of testosterone that can result in lower sex drive, energy, and strength ??? Itching and sweating RISKS ARE GREATER WITH: ??? History of drug misuse, substance use disorder, or overdose ??? Mental health conditions (such as depression or anxiety) ??? Sleep apnea ??? Older age (65 years and older) ??? Avoid alcohol while taking prescription opioids. Also, unless specifically advised by your health care provider, medications to avoid include: ??? Benzodiazepines (such as Xanax or Valium) ??? Muscle relaxants (such as Soma or Flexeril) ??? Hypnotics (such as Ambien or Lunesta) ??? Other prescription opioids KNOW YOUR OPTIONS Talk to your health care provider about ways to manage your pain that don???t involve prescription opioids. Some of these options may actually work better and have fewer risks and side effects. Options may include: ??? Pain relievers such as acetaminophen, ibuprofen, and naproxen ??? Some medication that are also used for depression or seizures ??? Physical therapy and exercise ??? Cognitive behavioral therapy, a psychological, goal-directed approach, in which patients learn how to modify physical, behavioral, and emotional triggers of pain and stress. IF YOU ARE PRESCRIBED OPIOIDS FOR PAIN: ??? Never take opioids in greater amounts or more often than prescribed. ??? Follow up with your primary health care provider. o Work together to create a plan on how to manage your pain. o Talk about ways to help manage your pain that don???t involve prescription opioids. o Talk about any and all concerns and side effects. ??? Help prevent misuse and abuse o Never sell or share prescription opioids. o Never use another person???s prescription opioids. ??? Store prescription opioids in a secure place and out of reach of others (this may include visitors, children, friends, and family). ??? Safely dispose of unused prescription opioids: Find your community drug take-back program or your pharmacy mail-back program, or flush them down the toilet, following guidance from the Food and Drug Administration (www.fda.gov/Drugs/ResourcesForYou). ??? Visit www.cdc.gov/drugoverdose to learn about the risks of opioids abuse and (more content not included)...[facility] CampusExtra Simonon [id number] Collected PlasmaYesInvalid Interpretation [facility] SystemComment on above:Performed By: #### [id number] #### [facility] [address] [place] [id number] By: SYSTEM SYSTEM on 03-12-5003Engzphysc/100 WBC (Bld)0.4 %Normal0.0 - 2.0 %Remisol HemeBasophils/Leukocytes Auto (Bld) [Pure # fraction]0.0 E9/LNormal0.0 - 0.2 E9/LRemisol HemeEosinophils (Bld) [#/Vol]0.1 E9/LNormal0.0 - 0.5 E9/LRemisol HemeEosinophils/100 WBC (Bld)1.4 %Normal0.0 - 8.0 %Remisol HemeErythrocyte distribution width (RBC) [Ratio]13.5 %Vhrejp68.9 - 14.2 %Remisol HemeHematocrit (Bld) [Volume fraction]36.2 %Rkwmiq21.0 - 46.0 % Remisol HemeHemoglobin (Bld) [Mass/Vol]12.5 g/wWVwrgwu08.0 - 16.0 gm/dLRemisol HemeLymphocytes (Bld) [#/Vol]1.6 E9/LNormal1.0 - 4.0 E9/LRemisol Heme Lymphocytes/100 WBC (Bld)27.9 %Qxdcdp71.0 - 50.0 %Remisol HemeMCH (RBC) [Entitic mass]30.3 pbFnlcpl21.0 - 34.0 pgRemisol HemeMCHC (RBC) [Mass/Vol]34.6 g/dL Uzripi69.4 - 36.0 gm/dLRemisol HemeMCV (RBC) [Entitic vol]87.5 jAUbzwdz44.0 - 100.0 fLRemisol HemeMonocytes (Bld) [#/Vol]0.4 E9/LNormal0.2 - 1.0 E9/LRemisol HemeMonocytes/100 WBC (Bld)7.2 %Normal4.0 - 14.0 %Remisol HemeNeutrophils (Bld) [#/Vol]3.6 E9/LNormal2.0 - 7.5 E9/LRemisol HemeNeutrophils/100 WBC (Bld)63.1 % Cserzl18.0 - 75.0 %Remisol UgmxBjfbbyyn251.0 E9/YZeuhpb721.0 - 500.0 E9/LRemisol HemePlatelet mean volume (Bld) [Entitic vol]8.3 fLNormal6.4 - 10.8 fLRemisol HemeRBC (Bld) [#/Vol]4.1 E12/LLow4.3 - 5.9 E12/LRemisol HemeWBC corrected for nucl RBC Auto (Bld) [#/Vol]5.7 E9/LNormal4.0 - 11.0 E9/LRemisol HemeHep Func Panelon [id number] [Mass/Vol]4.0 g/dLNormal3.3-5.0[facility] HospitalComment on above:Performed By: #### [id number] #### [facility] [address], [place] [address]Myhpueb/Globulin (S) [Mass conc ratio]1.1Jwxqyd2.1-2.2FShelby Memorial HospitalComment on above:Performed By: #### [id number] #### [facility] [address], [place] [address]JBN [Catalytic activity/Vol]72 Int._Unit/FRtdywc46-76LnyhbiMiami Valley HospitalComment on above:Performed By: #### [id number] #### [facility] [address], [place] [address]BUD No additional P-5'-P [Catalytic activity/Vol]12 Int._Unit/L Normal6-46[facility] Valley HospitalComment on above:Performed By: #### [id number] #### [facility] [address], [place] [address]FWI [Catalytic activity/Vol]17 Int._Unit/LNormal5-43[facility] HospitalComment on above:Performed By: #### [id number] #### [facility] [address], [place] [address]Zqnatdnre [Mass/Vol]0.7 mg/dLNormal0.0-1.1FShelby Memorial HospitalComment on above:Performed By: #### [id number] #### [facility] [address], [place] [address]Evzfnkfas.direct [Mass/Vol]0.1 mg/dLNormal0.0-0.4FShelby Memorial HospitalComment on above:Performed By: #### [id number] #### [facility] [address], [place] [address]Tatqfjqbc.indirect [Mass or moles/Vol]0.6 mg/dLNormal0.1-0.9 [facility] HospitalComment on above:Performed By: #### [id number] #### [facility] [address], [place] [address]Bnjhpkjg (S) [Mass/Vol]2.6 g/dLNormal1.4-4.0[facility] HospitalComment on above:Performed By: #### [id number] #### [facility] [address], [place] [address]Fwqclnl [Mass/Vol]6.6 g/dLNormal6.0-7.8[facility] HospitalComment on above:Performed By: #### [id number] #### [facility] [address], [place] [address]Ifzanp Levelon 86-63-9020Chmuet [Catalytic activity/Vol]35 U/L Twjpix46-71ViushkMiami Valley HospitalComment on above:Performed By: #### [id number] #### [facility] [address], [place] [address]GVKQVOKHSbaarwt By: Adams Anderson on 09-47-5025KLX.beta subunit (U) [Moles/Vol]NegativeNormalDRUMRIGHT REGIONAL [facility] Man SeroU BetaHcg Qualon 02-22-6176HIX.beta subunit (U) [Moles/Vol]NegativeNormalMiami Valley HospitalComment on above:Performed By: #### [id number] #### [facility] [address], [place] [address]JL with Cult Rflxon 56-46-8367Vmbkfuyx Auto Ql (U)TraceNormal TraceMiami Valley HospitalComment on above:Performed By: #### [id number] #### [facility] [address], [place] [address]Sspeotbrv Ql (U)NegativeNormalNegWooster Community HospitalComment on above:Performed By: #### [id number] #### [facility] [address], [place] [address]Hetfpxl (U)ClearNormalClearMiami Valley HospitalComment on above:Performed By: #### [id number] #### [facility] [address], [place] [address]Flnto (U)YellowNormalYellowMiami Valley HospitalComment on above:Result Comment: Microscopic readings are only performed on those samples that meet specific criteria set forth by [facility].Performed By: #### [id number] #### [facility] [address], [place] [address]Wjqpblplnq cells.squamous Auto (Urine sed) [#/Area]0-2Invalid Interpretation CodeMiami Valley HospitalComment on above:Performed By: #### [id number] #### [facility] [address], [place] [address]Ofedeit Ql (U)NegativeNormalNegWooster Community Hospital Comment on above:Performed By: #### [id number] #### [facility] [address], [place] [address]Wevwifgmjk Auto test strip (U) [Mass/Vol]2+ mg/dLAbnormal NegativeMiami Valley HospitalComment on above:Performed By: #### [id number] #### [facility] [address] [place] [address]Rvpronq Auto test strip Ql (U)NegativeNormalNegativeMiami Valley HospitalComment on above:Performed By: #### [id number] #### [facility] [address] [place] [address]Hyatanwbi esterase Auto test strip Ql (U)NegativeNormalNegative [facility] HospitalComment on above:Performed By: #### [id number] #### [facility] [address] [place] [address]Yvgnb Auto Ql (U)TraceNormalNegWooster Community Hospital Comment on above:Performed By: #### [id number] #### [facility] [address] [place] [address]Mamwvfo Auto test strip Ql (U)NegativeNormalNegativeMiami Valley HospitalComment on above:Performed By: #### [id number] #### [facility] [address] [place] [address]vT (U)5.5 [pH]Invalid Interpretation Code5.0-9.0[facility] HospitalComment on above:Performed By: #### [id number] #### [facility] [address] [place] [address]Vkarste Ql (U)NegativeNormalNegWooster Community Hospital Comment on above:Performed By: #### [id number] #### [facility] [address] [place] [address]KND Ql (U)5-25Vgymdrnz9-9Wkhaqg [facility] CenterComment on above:Performed By: #### [id number] #### [facility] [address] [place] [address]Iecwcmuy gravity (U) [Rel density]1.030Invalid Interpretation Code1.005-1.030[facility] HospitalComment on above:Performed By: #### [id number] #### [facility] [address], [place] [address]Pnnutwkkzmxg (U) [Mass/Vol]NegativeNormalNegativeOn License Of [facility] Centerer [facility] CenterComment on above:Performed By: #### [id number] #### [facility] [address], [place] [address]ZKY Auto (Urine sed) [#/Area]2-1Vnywsk3-4Elyodx [facility] CenterComment on above:Performed By: #### [id number] #### [facility] [address], [place] [address]Cwhk of Urine collection methodClean CatchNormalMiami Valley HospitalComment on above:Performed By: #### [id number] #### [facility] [address], [place] [address]TYVKDEWLBEHamuhtj By: SYSTEM SYSTEM on 52-03-0263Uqkstxhj Auto Ql (U)Trace /HPFNormalTrace/HPFFT UA Auto SSBilirubin Ql (U)NegativeNormal Negativemg/dLFT UA Auto SSClarity (U)Clear (07/15/24 7:20 PM)NormalClearFTM UA Auto SSColor (U)Yellow 1 (07/15/24 7:20 PM)NormalYellowDRUMRIGHT REGIONAL HOSPITAL [facility] UA Auto SSComment on above:Interpretive Data: Microscopic readings are only performed on those samples that meet specific criteria set forth by [facility].Epithelial cells.squamous Auto (Urine sed) [#/Area]0-2 graded/HPFInvalid Interpretation CodeFTMC UA Auto SSGlucose Ql (U)NegativeNormalNegativemg/dLFT UA Auto SS Hemoglobin Auto test strip (U) [Mass/Vol]2+ mg/dLInvalid Interpretation Code Negativemg/dLFT UA Auto SSKetones Auto test strip Ql (U)NegativeNormal Negativemg/dLFT UA Auto SSLeukocyte esterase Auto test strip Ql (U)Negative NormalNegativeLeu/uLFT UA Auto SSMucus Auto Ql (U)Trace graded/LPFNormal Negativegraded/LPFFTMC UA Auto SSNitrite Auto test strip Ql (U)NegativeNormal Negativemg/dLDRUMRIGHT REGIONAL HOSPITAL – [facility] UA Auto SSpH (U)5.5 *NA* (07/15/24 7:20 PM)Invalid Interpretation Code5.0 - 9.0DR[facility]RIGHT [facility] UA Auto SSProtein Ql (U)NegativeNormalNegativemg/dLDRUMRIGHT REGIONAL HOSPITAL – [facility] UA Auto SSRBC Ql (U)4-20 graded/HPFInvalid Interpretation Code0-3graded/HPFDRUMRIGHT REGIONAL HOSPITAL – [facility] UA Auto SSSpecific gravity (U) [Rel density]1.030 *NA* (07/15/24 7:20 PM)Invalid Interpretation Code1.005 - 1.030[facility] UA Auto SS Urobilinogen (U) [Mass/Vol]NegativeNormalNegativemg/dLDRUMRIGHT REGIONAL HOSPITAL [facility] UA Auto SSWBC Auto (Urine sed) [#/Area]0-5 graded/HPFNormal0-5graded/HPFDRUMRIGHT REGIONAL HOSPITAL [facility] UA Auto SSURINALYSIS Ordered By: Jessa Hough on 96-39-3870CD Spec DescClean Catch (07/15/24 7:20 PM)NormalDRUMRIGHT REGIONAL HOSPITAL – [facility] UA Auto SSeGFRon 29-21-1950vLKG943 mL/min/1.73 m2 Normal>=59On License Of [facility] Centerer [facility] CenterComment on above:Performed By: #### [id number] #### [facility] [address], [place] [address]Wrjbvw Medicine Office/Clinic Noteon 42-07-9669Xmovro Medicine Office/Clinic NoteFami Medicine Office/Clinic Note Chief Complaint cough/worms in stool HPI Staff 28 year old female presents with cough, possible worms in stool. Stomach pain and diarrhea. nausea no vomiting onset: cough for 3 weeks and worms in stool this week History of Present Illness I have reviewed and verified the staff HPI to be accurate for this encounter. Portions of this record have been created with voice recognition software. Occasional wrong-word or?upnfd-o-dotf? substitutions may have occurred due to the inherent limitations of voice recognitionsoftware. 28 yo female with history of irritable bowel syndrome presents today with cc of cough x 3 weeks, and loose stool, with worms. Patient states that in regards to cough she developed cough and cold-likesymptoms approximately 3 weeks ago. She denies any history of asthma. Denies smoking history. States that her kid was sick prior to her but only lasted a few days of his went away. She states that she was carrying close up from the basement like she always does and noticed wheezing in which her also noted. States she never has wheezing. She denies any chest pain shortness of breath or difficulty breathing but states the cough will just not resolved. Occasionally productive of phlegm or mucus otherwise dry. She states bilateral ear pressure but denies pain denies sore throat. Denies fever chills or weakness with the symptoms. Patient's second complaint is in regards to possible wormsin stool. States that she developed multiple episodes of diarrhea and nausea worse than she is everhad approximately 1 week ago. States that the evening prior she ate the same dinner that her son and had and they did not get sick. States the only thing that she could think of is that she took eggs from somebody at work from their chicken states that she had cooked them thoroughly. Statesotherwise she does eat a lot of sushi. She states that the diarrhea was so bad it was watery in nature and worse than she has ever had states however this week it finally started to get better. States however on 3 separate occasions this week she has noticed a worm in her stool. She denies any black or tarry stools or blood in the stool. She is eating and drinking normally. She has no other concerns at this time. No recent travel. Allergy to Bactrim. Review of Systems PHQ Score Initial Depression Screen Score: 0 SCORE ROS negative unless otherwise stated in HPI. Physical Exam Vitals & Measurements T: 36.8 ?C(Oral) HR: 88(Peripheral) BP: 112/76 SpO2: 97% HT: 63 in HT: 160 cm WT: 64 kg WT: 140.8 lb BMI: 25 General: Pleasant middle-age female, present with her son today, no acute distress sitting upright in the exam chair Eyes: Bilateral conjunctiva within normal limits no injection Ears: Bilateral TMs are within normal limits no erythema or bulging. Bilateral external auditory canals are within normal limits no erythema or edema. Nose: No active drainage deformity or lesion. Mild mucosal inflammation Mouth: Moist mucous membranes. Uvula is midline. No acute tonsillar erythema edema or exudate. No signs of peritonsillar abscess. No trismus or drooling Neck: no adenopathy Lungs: Lung sounds with expiratory wheeze throughout bilateral lung bates no rhonchi or crackles on exam. Harsh cough on examination symmetrical expansion no signs of respiratory distress. Cardio: S1, S2, regular rhythm. No murmurs gallops or rubs. Abdomen: Bowel sounds are present x 4 quadrants. Abdomen is soft, nontender, nondistended. No rigidity rebound or guarding on exam. Musculoskeletal: not assessed Extremity: not assessed Neurologic: not assessed Skin: not assessed Mental Status: Alert and oriented x3. Normal mood and affect Assessment/Plan Patient had chest x-ray completed which is negative for pneumonia or any acute cardiopulmonary abnormality. Treated patient in regards to acute bronchitis with wheezing treated patient with albuterolinhaler 2 puffs every 4-6 hours as needed for wheezing in addition to cough suppressant Tessalon 1 tablet every 8 hours as needed for cough, doxycycline antibiotic twice daily x 7 days duration and prednisone steroid 40 mg daily x 5 days duration. We will send stool cultures in regards to patient'sconcern for possible worms in stool we will send stool cultures addition to para and oversight. Patient understands this will most likely not return for approximately 4 to 10 days. Will treat with a one- time dose of 400 mg of albendazole in regards to her concern for seeing worm in her stool on 3 separate occasions. Patient agrees and understands plan of care otherwise will follow closely with her primary care provider or return if needed patient agrees and understands plan 1. Acute bronchitis with wheezing (J20.9: Acute bronchitis, unspecified) See above 2. Worms in stool (B83.9: Helminthiasis, unspecified) See above Follow-up With When Contact Information NONE, XXXX [phone] Additional Instruc (more content not included)...[facility] CampusComment on above:Result Comment: Electronically Signed By: Marco A DOHERTY, Jovon Nguyễn\.br\Date and Time Signed: 04/19/2418:49 Grant PCRon 04-18-2024. difficile toxin A+B Ql (Stl)YESNoGenesis HospitalComment on above:Performed By: #### [id number] #### [facility] [address], [place] [address]CLggd PCROrder Cancelled Unable to perform test due to consistency of stool. C. Difficile testing will only be performed on diarrheal (unformed) stool unless ileus due to C. difficile is expected. Reference: Clinical Practice Guidelines for Clostridium difficile Infection in Adults, Infection and Hospital Epidemiology November 2009, Vol 31, No 5. [facility] CampusEnteric Panel by PCRon 04-18-2024. coli+jejuni+upsaliensis DNA MIAH+non-probe Ql (Stl)Not detectedNoGenesis HospitalComment on above:Result Comment: Testing was performed utilizing reverse piano maker (RT), polymerase chain reaction (PCR), and array hybridization to detect specific gastrointestinal microbial nucleic acid gene sequences associated with the following pathogenic bacteria and viruses:Campylobacter Group (composed of C. coli, C. jejuni, and C. mariah), Salmonella species, Shigella species (including S. dysenteriae,S. boydii, S. sonnei and S. flexneri), Vibrio Group (composed of V. cholera and V. parahaemolyticus), Yersinia enterocolitica, Norovirus GI/GII, and Rotavirus A. In addition, EPdetects Shiga toxin 1 gene and Shiga toxin 2 gene virulence markers. Shiga toxin producing E. coli (STEC) typically harborone or both genes that encode for Shiga toxins 1 and 2. Campylobacter group, Salmonella species, Shigella species, Vibrio group, Rotavirus A, Shiga Toxin 1, Shiga Toxin 2, Norovirus GI/GII, and Yersinia enterocolitica were tested by [employer] Corporationigene nulcleic acidtest.Performed By: #### [id number] #### [facility] [address], [place] [address]M. coli stx1+stx2 genes MIAH+non-probe Ql (Stl)NegativeNormal [facility] HospitalComment on above:Performed By: #### [id number] #### [facility] [address], [place] [address]Dtdqiaj Panel by PCRShiga Tox Interp Negative for Shiga Toxin producing E. coliNoGenesis Hospital Enteric Panel Intrl QCPassNoGenesis HospitalComment on above: Result Comment: Testing was performed utilizing reverse piano maker (RT), polymerase chain reaction (PCR), and array hybridization to detect specific gastrointestinal microbial nucleic acid gene sequences associated with the following pathogenic bacteria and viruses:Campylobacter Group (composed of C. coli, C. jejuni, and C. mariah), Salmonella species, Shigella species (including S. dysenteriae,S. boydii, S. sonnei and S. flexneri), Vibrio Group (composed of V. cholera and V. parahaemolyticus), Yersinia enterocolitica, Norovirus GI/GII, and Rotavirus A. In addition, EPdetects Shiga toxin 1 gene and Shiga toxin 2 gene virulence markers. Shiga toxin producing E. coli (STEC) typically harborone or both genes that encode for Shiga toxins 1 and 2.Performed By: #### [id number] #### [facility] [address] [place] [address]Xczuzaats genogroup I+II RNA MIAH+non-probe Ql (Stl)Not detected [facility] CampusComment on above:Performed By: #### [id number] #### [facility] [address] [place] [address]Mewuphndy A RNA MIAH+non-probe Ql (Stl)Not detectedNoGenesis HospitalComment on above:Performed By: #### [id number] #### [facility] [address] [place] [address]X. enterica+bongori DNA MIAH+non-probe Ql (Stl)Not detected [facility] CampusComment on above:Result Comment: This test result should be correlated with clinical presentations and medical history by a healthcare provider to determine its clinical significance.Performed By: #### [id number] #### [facility] [address] [place] [address]Fdjainhy species+EIEC invasion plasmid antigen H ipaH gene MIAH+non-probe Ql (Stl)Not detectedNoGenesis HospitalComment on above:Performed By: #### [id number] #### [facility] [address], [place] [address]T. cholerae+parahaemolyticus+vulnificus DNA MIAH+non-probe Ql (Stl)Not detectedNoGenesis HospitalComment on above:Performed By: #### [id number] #### [facility] [address], [place] [address]P. enterocolitica DNA MIAH+non-probe Ql (Stl)Not detectedNormal [facility] HospitalComment on above:Performed By: #### [id number] #### [facility] [address], [place] [address]LX Chest 2 Viewson 00-76-0232RF Chest 2 ViewsExam Date/Time: 04/17/2024 18:52 EDT Reason for Exam: Cough Report IMPRESSION: NO EVIDENCE OF ACTIVE CHEST DISEASE. CLINICAL HISTORY: Cough. COMPARISON: 02/19/2023. COMMENT: The heart is normal in size. The mediastinum is unremarkable. The lungs appear clear. No infiltration nor pleural effusion is evident. No significant change is noted when compared to the prior exam. Ordering Provider: Jovon Strickland FINAL REPORT Dictated: 04/18/2024 7:45 am Dre Caravjal M.D. Signed (Electronic Signature): 04/18/2024 7:45 am Signed by: Dre Carvajal M.D. Transcribed by: SEBASTIAN Technologist: JOESPH Technical Comments Radiation Dose: Ka,r in mGy = n.a DAP = n.aNoGenesis HospitalAmbulatory Visit Summaryon 04-17-2024 Ambulatory Visit SummaryAmbulatory Visit Summary SEMAJ, MILADIS Bunch :1995 Visit Date:04/17/2024 Ambulatory Visit Instructions Your Diagnosis Worms in stool Your Care Team Attending Physician - Marco A DOHERTY, Jovon Nguyễn Primary Care Physician - NONE, XXXX Procedures Performed Excision of cyst, fibroadenoma, or other benign or malignant tumor, aberrant breast tissue, duct lesion, nipple or areolar lesion (except [address]), open, male or female, 1 or more lesions (11/01/2020),Esophagogastroduodenoscopy (04/14/2019), Laparoscopy (2018), Colonoscopy (02/25/2015), wisdom teethremoved x4 (2010). Discharge Vitals Temperature (Oral) 36.8 ?C Heart Rate (Peripheral) 88 Blood Pressure 112/76 Height 160 cm Height 63 in Weight 64 kg Weight 140.8 lb BMI 25 What to do next You Need to Complete the Following Clostridium Difficile PCR, Stool, Routine collect, 04/17/24, Order for future visit, Nurse collect,Worms in stool, Print Label By Order Location Enteric Panel by PCR, Stool, Routine collect, 04/17/24, Order for future visit, Nurse collect, Worms in stool, Print Label By Order Location O & P Exam, Routine, Stool, Routine collect, 04/17/24, Order for future visit, Nurse collect, Worms in stool, Print Label By Order Location Allergies Bactrim (hives) Problems Ongoing - Any [...] Adult body mass index 28.0-28.9 Gilbert syndrome Patient Survey You may receive a survey via text or e-mail asking about your office visit. Please share your experience with us by completing your survey. We appreciate your feedback and thank you for choosing us for your care. NormalMiami Valley HospitalPhysician Orderon 01-04-2024 Physician [id number]#1.00TIFFNormalMiami Valley HospitalBhCG Quanton 94-61-3818FLM.beta subunit Qn8 m[IU]/mLHigh1-3 [facility] HospitalComment on above:Result Comment: 'F NON < 1 - 3' ' 0.2 - 1 WEEK = 5 TO 50' ' 1 - 2 WEEKS = 50 - 500' ' 2 - 3 WEEKS = 100 - 5000' ' 3 - 4 WEEKS = 500 - 88858' ' 4 - 5 WEEKS = 1000 - 85543' ' 5 - 6 WEEKS = 39593 - 912608' ' 6 - 8 WEEKS = 17393 - 645362' ' 8 - 12 WEEKS = 38689 - 634700'Performed By: #### [id number] #### [facility] [address], [place] [address]NJKZQQFXJKsqqmlx By: SYSTEM SYSTEM on 22-87-6148YXN.beta subunit Qn8 m[IU]/mLHigh1 - 3 mIU/mLRemisol ChemComment on above:Result Comment: 'F NON < 1 - 3' ' 0.2 - 1 WEEK = 5 TO 50' ' 1 - 2 WEEKS = 50 - 500' ' 2 - 3 WEEKS = 100 - 5000' ' 3 - 4 WEEKS = 500 - 87534' ' 4 - 5 WEEKS = 1000 - 10507' ' 5 - 6 WEEKS = 95320 - 011615' ' 6 - 8 WEEKS = 73054 - 753012' ' 8 - 12 WEEKS = 70549 - 490556'Consent for Treatmenton 11-19-2023 Consent for [id number]#1.00TIFFNormal [facility] HospitalPhysician Orderon 16-14-3810Tywjhwkmu Order [id number]#1.00TIFFNormalMiami Valley HospitalAT IIIon 65-04-9223Fdrukplkczjs actual/normal Chromogenic method (PPP) [Rel catalytic activity/Vol]109 %Invalid Interpretation Yotj65-782TzgipbMiami Valley HospitalComment on above:Result Comment: Direct Xa inhibitor anticoagulants such as rivaroxaban, apixaban and edoxaban will lead to spuriously elevated antithrombin activity levels possibly masking a deficiency.Performed By: #### [id number] #### [facility] [address], [place] [address]Wfmjrlmhetlk Ag actual/normal IA (PPP) [Relative mass conc]97 % Invalid Interpretation Hoqo66-200UpchvfMiami Valley HospitalComment on above: Result Comment: This test was developed and its performance characteristics determined by [facility]. It has not been cleared or approved by the Food and Drug Administration. Performed at: [address] [id number] MD Constantin Munozformed By: #### [id number] #### [facility] [address], [place] [address]Yfob-5 Glycoprot.i Aon 88-21-6211Vrfg 2 glycoprotein 1 IgA Qn (S)<9Invalid Interpretation Code0-25[facility] HospitalComment on above: Result Comment: The reference interval reflects a 3SD or 99th percentile interval, which is thought to represent a potentially clinically significant result in accordance with the International Consensus Statement on the classification criteria for definitive antiphospholipid syndrome (APS). J Thromb Haem 2006;4:295-306.Performed By: #### [id number] #### [facility] [address], [place] [address]Bjqs 2 glycoprotein 1 IgG Qn (S)<9Invalid Interpretation Code 0-20[facility] HospitalComment on above:Result Comment: The reference interval reflects a 3SD or 99th percentile interval, which is thought to represent a potentially clinically significant result in accordance with the International Consensus Statement on the classification criteria for definitive antiphospholipid syndrome (APS). J Thromb Haem 2006;4:295-306.Performed By: #### [id number] #### [facility] [address], [place] [address]Gmar 2 glycoprotein 1 IgM Qn (S)<9Invalid Interpretation Code 0-32[facility] HospitalComment on above:Result Comment: The reference interval reflects a 3SD or 99th percentile interval, which is thought to represent a potentially clinically significant result in accordance with the International Consensus Statement on the classification criteria for definitive antiphospholipid syndrome (APS). J Thromb Haem 2006;4:295-306. Performed at: [facility] [id number] MD Constantin Munozformed By: #### [id number] #### [facility] [address] [place], [place] [address]Oefgzf V Leidenon 67-33-2313G5 gene p.Zrc254Fio Molgen Ql (Bld/Tiss)CommentInvalid Interpretation CodeFisher [facility] Hospital CenterComment on above:Result Comment: Result: c.1601G>A (p.Iay503Hoh) - Not Detected This result is not associated with an increased risk for venous thromboembolism. See Additional Clinical Information and Comments. Additional Clinical Information: Venous thromboembolism is a multifactorial disease influenced by genetic, environmental, and circumstantial risk factors. The c.1601G>A (p. [id number]) variant in the F5 gene, commonly referred to as Factor V Leiden, is a genetic risk factor for venous thromboembolism. Heterozygous carriers of this variant have a 6- to 8-fold increased risk for venous thromboembolism. Individuals homozygous for this variant (ie, with a copy of the variant on each chromosome) have an approximately 80-fold increased risk for venous thromboembolism. Individuals who carry both a c.*97G>A variant in the F2 gene and Factor V Leiden have an approximately 20-fold increased risk for venous thromboembolism. Risks are likely to be even higher in more complex genotype combinations involving the F2 c.*97G>A variant and Factor V Leiden (PMID: 15479839). Additional risk factors include but are not limited to: deficiency of protein C, protein S, or antithrombin III, age, male sex, personal or family history of deep vein thromboembolism, smoking, surgery, prolonged immobilization, malignant neoplasm, tamoxifen treatment, raloxifene treatment, oral contraceptive use, hormone replacement therapy, and . Management of thrombotic risk and thrombotic events should follow established guidelines and fit the clinical circumstance. This result cannot predict the occurrence or recurrence of a thrombotic event. Comment: Genetic counseling is recommended to discuss the potential clinical implications of positive results, as well as recommendations for testing family members. Genetic Coordinators are available for health care providers to discuss results at [phone] Test Details: Variant Analyzed: c.1601G>A (p. Iur463Rkh), referred to as Factor V Leiden Methods/Limitations: DNA analysis of the F5 gene (NM_000130.5) was performed by PCR amplification followed by restriction enzyme analysis. The diagnostic sensitivity is >99%. Results must be combined with clinical information for the most accurate interpretation. Molecular-based testing is highly accurate, but as in any laboratory test, diagnostic errors may occur. False positive or false negative results may occur for reasons that include genetic variants, blood transfusions, bone marrow transplantation, somatic or tissue-specific mosaicism, mislabeled samples, or erroneous representation of family relationships. This test was developed and its performance characteristics determined by [employer]. It has not been cleared or approved by the Food and Drug Administration. References: Karla S, Hyun PARSON, Pankaj R, Megan WW, Glen JH; ACMG Professional Practice and Guidelines Committee. Addendum: [employer] consensus statement on factor V Leiden mutation testing. Mil[employer]ro Med. 2020Oct 04. doi: 10.1038/y35075-984-49182-w. PMID: 63261320. Kenisha LATIF. Factor V Leiden Thrombophilia. 1998December 13 (Updated 2017Aug 05). In: Beck MP, Fe HH, Monserrat RA, et al., editors. Jesus(R) (Internet). [place] ([place]): [facility], [place]; [phone]. Available from: https://www.ncbi.nlm.nih.gov/books/WCD7480/ Hadley Lewis, Hyun PARSON, Giovanni X, Efrain B, Markell EB, Marietta P, Ko CS; [employer] Laboratory Leather Shaver Committee. Venous thromboembolism laboratory testing (factor V Leiden and factor II c.*97G>A), 2018 update: a technical standard of the [employer] (ACMG). Milagro Med. 2018 Jul;20(12):4812-6503. doi: 10.1038/[id number]-p. Epub 2017May 06. PMID: 89651010.Performed By: #### [id number] #### Luke [address] [address]Dwcsobs C Activityon 05-64-5906Kecuzvg C actual/normal Coag (PPP) [Relative time]118 %Invalid Interpretation Jrcr01-615VxekesMiami Valley HospitalComment on above:Result Comment: Performed at: [facility] [address] [place] [address] [id number] [id number] MD Constantin Munozformed By: #### [id number] #### [facility] [address] [place], [place] [address]Tkgbmed S-antigenon 90-07-2258Bombtzc S Ag actual/normal IA (PPP) [Relative mass conc]84 %Invalid Interpretation Hizj43-197IlfwtuMiami Valley HospitalComment on above:Result Comment: This test was developed and its performance characteristics determined by [facility]. It has not been cleared or approved by the Food and Drug Administration.Performed By: #### [id number] #### [facility] [address], [place] [address]Pnvvwux S Free Ag actual/normal IA (PPP) [Relative mass conc]57 %Oyw47-759MnwgkjMiami Valley HospitalComment on above:Result Comment: Performed at: [facility] [address] [place] [address] [phone] [id number] MD Constantin Munozformed By: #### [id number] #### [facility] [address], [place] [address]ApYX Quanton 96-55-0813WPU.beta subunit Qn20 m[IU]/mLHigh1-3 [facility] HospitalComment on above:Result Comment: 'F NON < 1 - 3' ' 0.2 - 1 WEEK = 5 TO 50' ' 1 - 2 WEEKS = 50 - 500' ' 2 - 3 WEEKS = 100 - 5000' ' 3 - 4 WEEKS = 500 - 87183' ' 4 - 5 WEEKS = 1000 - 77629' ' 5 - 6 WEEKS = 10825 - 325039' ' 6 - 8 WEEKS = 60935 - 324784' ' 8 - 12 WEEKS = 49917 - 703498'Performed By: #### [id number] #### [facility] [address], [place] [address]WLPBATJCGSampjfx By: SYSTEM SYSTEM on 94-74-2496QOA.beta subunit Qn20 m[IU]/mLHigh1 - 3 mIU/mLRemisol ChemComment on above:Result Comment: 'F NON < 1 - 3' ' 0.2 - 1 WEEK = 5 TO 50' ' 1 - 2 WEEKS = 50 - 500' ' 2 - 3 WEEKS = 100 - 5000' ' 3 - 4 WEEKS = 500 - 27275' ' 4 - 5 WEEKS = 1000 - 14580' ' 5 - 6 WEEKS = 48445 - 723120' ' 6 - 8 WEEKS = 80048 - 955749' ' 8 - 12 WEEKS = 11840 - 970183'Consent for Treatmenton 11-15-2023 Consent for [id number]#1.00TIFFNormProMedica Fostoria Community HospitalPhysician Orderon 40-53-2969Orxaswsoo Order [id number]#1.00TIFFNormalMiami Valley HospitalBhCG Quanton 59-49-5679BHW.beta subunit Qn62 m[IU]/mLHigh1-3FShelby Memorial HospitalComment on above:Result Comment: 'F NON < 1 - 3' ' 0.2 - 1 WEEK = 5 TO 50' ' 1 - 2 WEEKS = 50 - 500' ' 2 - 3 WEEKS = 100 - 5000' ' 3 - 4 WEEKS = 500 - 51513' ' 4 - 5 WEEKS = 1000 - 54920' ' 5 - 6 WEEKS = 79249 - 129842' ' 6 - 8 WEEKS = 43639 - 668164' ' 8 - 12 WEEKS = 82273 - 631064'Performed By: #### [id number] #### [facility] [address] [place] [address] 98282YKXXHPANTXrejnhv By: SYSTEM SYSTEM on 94-51-0044NSN.beta subunit Qn62 m[IU]/mLHigh1 - 3 mIU/mLRemisol ChemComment on above:Result Comment: 'F NON < 1 - 3' ' 0.2 - 1 WEEK = 5 TO 50' ' 1 - 2 WEEKS = 50 - 500' ' 2 - 3 WEEKS = 100 - 5000' ' 3 - 4 WEEKS = 500 - 57437' ' 4 - 5 WEEKS = 1000 - 37893' ' 5 - 6 WEEKS = 52551 - 294330' ' 6 - 8 WEEKS = 88840 - 910554' ' 8 - 12 WEEKS = 48726 - 395087'Consent for Treatmenton 11-11-2023 Consent for [id number]#1.00TIFFNormal [facility] CenterPhysician Orderon 08-88-8902Dmioyvwwl Order [id number]#1.00TIFFNormUC [facility] Miscellaneous-LCon 86-03-3185Gzr MiscellaneousCOMMENTInvalid Interpretation [facility] SystemComment on above:Result Comment: Test Ordered: [id number] Dilute Jose's Viper Venom DRVVT Screen Seconds 39.9 sec UY Reference Range: <= 47.0 DRVVT Confirm Seconds NIY sec UY Testing Not Indicated DRVVT Ratio NIY ratio UY Testing Not Indicated Performed at: [facility] [id number] PhD Jean-Pierre GiraldoPerformed By: #### [id number] #### [facility] [address] [place] [address]Mub Miscellaneous-LCon 50-71-8834Zpw MiscellaneousCOMMENT Invalid Interpretation [facility] SystemComment on above:Result Comment: Test Ordered: [id number] Anticardiolipin Ab, IgG/M, Qn Anticardiolipin Ab,IgG,Qn <9 GPL U/mL CB Reference Range: 0-14 Negative: <15 Indeterminate: 15 - 20 Low-Med Positive: >20 - 80 High Positive: >80 Anticardiolipin Ab,IgM,Qn <9 MPL U/mL CB Reference Range: 0-12 Negative: <13 Indeterminate: 13 - 20 Low-Med Positive: >20 - 80 High Positive: >80 Performed at: [facility] [place] [address] [place] [address] [phone] [id number] PhD Jean-Pierre GiraldoPerformed By: #### [id number] #### [facility] [address], [place] [address]NmHE Quanton 47-36-2476JAX.beta subunit Ie04390 m[IU]/mLHigh1-3 [facility] HospitalComment on above:Result Comment: 'F NON < 1 - 3' ' 0.2 - 1 WEEK = 5 TO 50' ' 1 - 2 WEEKS = 50 - 500' ' 2 - 3 WEEKS = 100 - 5000' ' 3 - 4 WEEKS = 500 - 81401' ' 4 - 5 WEEKS = 1000 - 46746' ' 5 - 6 WEEKS = 07194 - 198578' ' 6 - 8 WEEKS = 84807 - 819966' ' 8 - 12 WEEKS = 10293 - 484753'Performed By: #### [id number] #### [facility] [address], [place] [address]OIMCEKBDKJtoqlos By: SYSTEM SYSTEM on 79-75-7397FGT.beta subunit Ao59290 m[IU]/mLHigh1 - 3 mIU/mLRemisol ChemComment on above:Result Comment: 'F NON < 1 - 3' ' 0.2 - 1 WEEK = 5 TO 50' ' 1 - 2 WEEKS = 50 - 500' ' 2 - 3 WEEKS = 100 - 5000' ' 3 - 4 WEEKS = 500 - 35372' ' 4 - 5 WEEKS = 1000 - 66286' ' 5 - 6 WEEKS = 76692 - 411063' ' 6 - 8 WEEKS = 81741 - 668700' ' 8 - 12 WEEKS = 07713 - 536036'Protein [Mass/Vol]8.0 g/dLHigh6.0 - 7.8 gm/dLRemisol ChemConsent for Treatmenton 45-14-4757Kmoqcbx for Treatment [id number]#1.00TIFFNormalMiami Valley HospitalLab Miscellaneous-LCon 03-48-9392Tzdo Bvrn112845Erokmuw Interpretation CodeMiami Valley HospitalComment on above:Performed By: #### [id number] #### [facility] [address], [place] [address]Orco NameDRVVTInvalid Interpretation [facility] SystemComment on above:Performed By: #### [id number] #### [facility] [address], [place] [address]Mwih Mqwg775164Tgfnnjm Interpretation [facility] SystemComment on above:Performed By: #### [id number] #### [facility] [address], [place] [address]Xexu Nameanticar igg/igmInvalid Interpretation CodeMiami Valley HospitalComment on above:Performed By: #### [id number] #### [facility] [address], [place] [address]Kwinpwxxg Orderon 93-70-6814Sgjnmbwho Order [id number]#1.00TIFFNoGenesis HospitalReference Laboratory TestingOrdered By: Mariel Schmidt on 37-97-8623Ermm [id number] 1Invalid Interpretation CodeDRUMRIGHT REGIONAL [facility] SendOutsSSTest [id number] 1Invalid Interpretation CodeDRUMRIGHT REGIONAL HOSPITAL – [place] SendOutsSSTest Nameanticar igg/igmInvalid Interpretation CodeDRUMRIGHT REGIONAL HOSPITAL [facility] [place] SendOutsSSTest NameDRVVTInvalid Interpretation CodeDRUMRIGHT REGIONAL H[facility] SendOutsSS Total Proteinon 97-43-9984Aawcgvt [Mass/Vol]8.0 g/dLHigh6.0-7.8[facility] HospitalComment on above:Performed By: #### [id number] #### [facility] [address], [place] [address]VL Note-Physicianon 84-80-5276HK Note-PhysicianBasic Information Time Seen: Libby Ham DO 10/30/2023 18:56 Chief Complaint c/o pelvic pain and dark brown discharge x2 days. States changing pad every hour today. Denies clots. Approx. [address] Mendoza. History of Present Illness Patient is a 28-year-old female G2, P0 currently approximately 6 to 7 weeks gestation presenting tothe ED for evaluation of pelvic pain and dark brown discharge. Patient states that symptoms startedyesterday with dark brown discharge, has been changing her pad. Patient also notes pain in her lower abdomen. Patient denies fevers, chills, nausea or vomiting. Patient had a miscarriage in July.She called to Dr. Mendoza who advised her to come to the ED if her symptoms worsen. Patient has not had an ultrasound verifying her uterine at this time Review of Systems A 10 point review of systems is negative except as noted above. Medical and Surgical History: Reviewed and noted Social history: Lives at home Tobacco: Denies Physical Exam Vitals & Measurements T: 36.8 ?C(Oral) HR: 92(Peripheral) RR: 16 BP: 111/65 SpO2: 100% HT: 160 cm WT: 64 kg BMI: 25 General: Well developed, non toxic appearing, no acute distress HEENT: Head atraumatic, Mucosa moist, hearing grossly normal Neck: No JVD, tracheal deviation Cardiac: Regular rate, rhythm, no murmurs, or gallops, 2+ radial pulses Respiratory: Lungs clear to auscultation B/L, normal respiratory effort Abdomen: Soft, mild tenderness to palpation in the lower abdomen, no rebound or guarding, no peritoneal signs Extremities: No edema noted in the LE B/L, no tenderness to palpation Neurologic: Alert and oriented, speech clear Skin: No rashes or lesions Psych: Appropriate mood and behavior Medical Decision Making MEDICAL DECISION MAKING Number and Complexity of Problems Differential Diagnosis: [] [facility] Data External documents reviewed: [] My EKG interpretation: [] My CT interpretation: [] My X-ray interpretation: [] My Ultrasound interpretation: [] Decision rules/scores evaluated: [] Discussed with: [] Treatment and Disposition ED Course: Is a 28-year-old female presenting to the ED for evaluation of abdominal pain, vaginal bleeding. Patient is on oxygen on arrival, no acute distress. Laboratory evaluation is obtained, urinalysis is ordered. Patient offered medications for pain which she declined at this time. Patient's la boratory evaluations unremarkable, beta quantitative hCG is 10,102. Ultrasound shows intrauterine gestational sac with a fetus measuring 6 weeks 2 days however there is no heart rate detected. I did reach out to Dr. Mendoza who is the patient's OB who will see her in the office on Wednesday. Did not want repeat quantitative hCG. Discussed these findings with patient and she is comfortable with discharge home. She is to return to the ED for any new or worsening symptoms. Shared decision making: [] Code status: [] Assessment/Plan Threatened miscarriage (O20.0: Threatened ) Orders: Urinary Catheter Insertion US 1st Trimester US Transvaginal Disposition Plan Discharge Prescription List Prescriptions No active prescription medications Follow-up With When Contact Information Ahsan MENDOZA In 3 days 11/02/[address] , [place] [address]- Business (1) Additional Instructions: Please follow-up with Dr. Mendoza on Wednesday. Until you are seen by him to rest and not put anything in the vagina. Please follow-up with your primary care doctor and SUPERVISOR FLESHING forfurther evaluation management. Return to ED for any new or worsening symptoms. Thania OWENS In [address], [place] [address]- Business (1) Additional Instructions: Patient Education Threatened Miscarriage, Jxql-vd-Rqez Problem List/Past Medical History Ongoing Abnormal mammogram [...] male or female, 1 or more lesions (11/01/2020),Esophagogastroduodenoscopy (04/14/2019), Laparoscopy (2019), Colonoscopy (02/25/2015), wisdom teethremoved x4 (2011). Medications (more content not included)...[facility] CampusComment on above: Result Comment: Electronically Signed By: Libby Ham DO\.br\Date and Time Signed: 10/31/23 00:41 EDTUS 1st Trimesteron 90-45-0150BG 1st TrimesterExam Date/Time: 10/30/2023 21:30 EDT Reason for Exam: Threatened Miscarriage;Other (please specify) Report IMPRESSION: Single intrauterine with estimated sonographic gestational age 6 weeks, 3 days. No heart rate identified. Differential includes early intrauterine versus demise. Short-term follow-up pelvic sonography with beta hCG correlation recommended. CLINICAL HISTORY: Threatened Miscarriage. COMMENT: Transabdominal and transvaginal images were, with transvaginal imaging obtained to better assess pelvic anatomy. The uterus measurements and an estimated volume are: Uterus Length: 12.3 cm Uterus Width: 6.8 cm Uterus Height: 5.2 cm Uterus Volume: 225.8 cm3 Single intrauterine identified. [place]-rump length measures 5.04 cm. Mean sac diameter measures 1.66 cm. Estimated sonographic gestational age 6 weeks, 3 days. This compares with 9 weeks, 3 days by dates. Sonographic estimated date of delivery June 21, 2024. No heart rate identified. The right ovary measurements and estimated volume are: Right Ovary Length: 2.9 cm Right Ovary Width: 2.4 cm Right Ovary Height: 3.8 cm Right Ovary Volume: 13.7 cm3 The left ovary measurements and estimated volume are: Left Ovary Length: 2.8 cm Left Ovary Width: 2.1 cm Left Ovary Height: 1.2 cm Left Ovary Volume: 3.5 cm3 There are a few small follicular ovarian cysts. No large cysts and no adnexal mass are noted. There is no free fluid in the cul-de-sac. Report Ordering Provider: Libby Ham FINAL REPORT Dictated: 10/31/2023 11:53 am Nathan Marrero MD Signed (Electronic Signature): 10/31/2023 11:53 am Signed by: Nathan Marrero MD Transcribed by: SEBASTIAN Technologist: AD Technical Comments LMP : 08/25/23 History 3 Para 1 SAB 1 Transabdominal Ultrasound Performed Transvaginal Ultrasound Performed Size < Dates Uterus Position AntevertedNoGenesis HospitalUS Transvaginalon 12-64-9655KJ TransvaginalExam Date/Time: 10/30/2023 21:31 EDT Reason for Exam: Vaginal bleeding Report See ultrasound for report of transvaginal examination. Ordering Provider: Libby Ham FINAL REPORT Dictated: 10/31/2023 11:53 am Nathan Marrero MD Signed (Electronic Signature): 10/31/2023 11:53 am Signed by: Nathan Marrero MD Transcribed by: SEBASTIAN Technologist: [facility] HospitalABO/Rhon 90-79-5068JFY/RhPositiveInvalid Interpretation [facility] Comment on above:Performed By: #### [id number] ####[facility] [address] [place], [place] [address]DOGLR BANKOrdered By: Martine Nelson on 89-79-6788HGP/Rh InterpPositiveInvalid Interpretation [facility] BB Subsection BMPon 76-77-8801Petok gap [Moles/Vol]11 mmol/LNormal6-16[facility] HospitalComment on above:Performed By: #### [id number], [id number], [id number] #### [facility] [address], [place] [address]Oxbymmo [Mass/Vol]9.7 mg/dLNormal8.9-11.1FShelby Memorial HospitalComment on above:Performed By: #### [id number], 59859647, [id number] #### [facility] [address], [place] [address]Wawjrupf [Moles/Vol]105 mmol/TRuapuw794-602PzplvlMiami Valley HospitalComment on above:Performed By: #### [id number], 67248050, [id number] #### [facility] [address], [place] [address]TO2 [Moles/Vol]25 mmol/CUgfpbc14-89HxvzwgMiami Valley Hospital Comment on above:Performed By: #### 1821498, 65304982, 4857593 #### [facility] [address], [place] [address]Olffclknms [Mass/Vol]0.6 mg/dLNormal0.5-1.3FShelby Memorial HospitalComment on above:Performed By: #### 7155150, 11273025, 6477679 #### [facility] [address], [place] [address]Jynkhof [Mass/Vol]85 mg/lOGeabif19-822EkdtloMiami Valley HospitalComment on above:Performed By: #### [id number], 11601603, 9771834 #### [facility] [address], [place] [address]Vqgevxjym [Moles/Vol]3.7 mmol/LNormal3.5-5.3FShelby Memorial HospitalComment on above:Performed By: #### 4953297, 63300922, 7148281 #### [facility] [address], [place] [address]Moavsi [Moles/Vol]137 mmol/ICzhtru542-946MxkljmMiami Valley HospitalComment on above:Performed By: #### 8219549, 15656689, 5001002 #### [facility] [address], [place] [address]Ckwx nitrogen [Mass/Vol]13 mg/dLNormal5-21[facility] HospitalComment on above:Performed By: #### 2374873, 93608287, 2841026 #### [facility] [address], [place] [address]Iuqb nitrogen/Creatinine [Mass ratio]22 No VyyflLiuh47-10BgixcoMiami Valley HospitalComment on above:Performed By: #### 3330255, 11098001, 0542606 #### [facility] [address], [place] [address]IkUB Quanton 25-89-4020GLG.beta subunit Wi13703 m[IU]/mLHigh1-3 [facility] HospitalComment on above:Result Comment: 'F NON < 1 - 3' ' 0.2 - 1 WEEK = 5 TO 50' ' 1 - 2 WEEKS = 50 - 500' ' 2 - 3 WEEKS = 100 - 5000' ' 3 - 4 WEEKS = 500 - 52246' ' 4 - 5 WEEKS = 1000 - 80736' ' 5 - 6 WEEKS = 20079 - 972523' ' 6 - 8 WEEKS = 92654 - 409933' ' 8 - 12 WEEKS = 71621 - 737665'Performed By: #### [id number] #### [facility] [address] [place] [address]54[address]NYN w/ Auto Diffon 28-51-0268Qugzliork/100 WBC (Bld)1.5 %Normal 0.0-2.0[facility] HospitalComment on above:Performed By: #### 3999943, 03179535, 0692747 #### [facility] [address] [place] [address]Heoexnsfp/Leukocytes Auto (Bld) [Pure # fraction]0.1 E9/LNormal 0.0-0.2FShelby Memorial HospitalComment on above:Performed By: #### 1772860, 70955728, 2642089 #### [facility] [address] [place] [address] 86[address]Yfwbkjoulnh (Bld) [#/Vol]0.1 E9/LNormal0.0-0.5FShelby Memorial HospitalComment on above:Performed By: #### 0352604, 67287879, 3546653 #### [facility] [address] [place] [address] 14625Ifjtdqgdvui/100 WBC (Bld)1.4 %Normal0.0-8.0[facility] HospitalComment on above:Performed By: #### 8760715, 17860038, 8115919 #### [facility] [address] [place] [address]Cwsmhuysblx distribution width (RBC) [Ratio]13.5 %Normal 10.9-14.2FShelby Memorial HospitalComment on above:Performed By: #### 8387563, 46693837, 7927949 #### [facility] [address] [place] [address] 57678Nskfawdprn (Bld) [Volume fraction]41.5 %Egngyu52.0-46.0[facility] HospitalComment on above:Performed By: #### 7531601, 58678869, 2417319 #### [facility] [address] [place] [address] 46[address]Qogmdfalhl (Bld) [Mass/Vol]13.5 g/qRQkpyzs68.0-16.0[facility] HospitalComment on above:Performed By: #### 3296818, 66205050, 5871699 #### [facility] [address] [place] [address] 36652Ircrixlvete (Bld) [#/Vol]1.5 E9/LNormal1.0-4.0[facility] HospitalComment on above:Performed By: #### 9394538, 82852619, 0732960 #### [facility] [address] [place] [address] 96221Grseeocbofu/100 WBC (Bld)26.3 %Gqqcdg16.0-50.0[facility] HospitalComment on above:Performed By: #### 4467507, 47474322, 0555632 #### [facility] [address] [place] [address] 64296EDI (RBC) [Entitic mass]28.7 gnNzmdnp23.0-34.0[facility] HospitalComment on above:Performed By: #### 4231643, 93507942, 2094577 #### [facility] [address] [place] [address] 87083ZMXU (RBC) [Mass/Vol]32.7 g/dRJlnnuo97.4-36.0[facility] HospitalComment on above:Performed By: #### 0255778, 76896693, 0778151 #### [facility] [address] [place] [address] 65167ZWV (RBC) [Entitic vol]87.8 iWPknxjc16.0-100.0[facility] HospitalComment on above:Performed By: #### 7562667, 52648957, 9883879 #### [facility] [address] [place] [address] 01791Xdsatumqq (Bld) [#/Vol]0.4 E9/LNormal0.2-1.0[facility] HospitalComment on above:Performed By: #### 3973514, 79962241, 1420987 #### [facility] [address] [place] [address] 79[address]Clmuusmnkyq (Bld) [#/Vol]3.5 E9/LNormal2.0-7.5FShelby Memorial HospitalComment on above:Performed By: #### 7365035, 08139496, 8836032 #### [facility] [address] [place] [address] 16537Orhqrczqwdd/100 WBC (Bld)63.6 %Ywlsss48.0-75.0[facility] HospitalComment on above:Performed By: #### 7214821, 33554317, 6769471 #### [facility] [address] [place] [address] 27827Luuvrqtp190.0 E9/JQxmgit921.0-500.0[facility] Comment on above:Performed By: #### 0428727, 22620806, 3344786 #### [facility] [address] [place] [address] 94950Capdalib mean volume (Bld) [Entitic vol]7.9 fLNormal6.4-10.8 [facility] HospitalComment on above:Performed By: #### 2524116, 66994472, 2778692 #### [facility] [address] [place] [address] 63[address]FNH (Bld) [#/Vol]4.7 E12/LNormal4.3-5.9[facility] HospitalComment on above:Performed By: #### [id number], [id number], [id number] #### [facility] [address], [place] [address]CZZ corrected for nucl RBC Auto (Bld) [#/Vol]5.6 E9/LNormal 4.0-11.0Miami Valley HospitalComment on above:Performed By: #### [id number], [id number], [id number] #### [facility] [address], [place] [address]IAYQUQJOBOklezmf By: SYSTEM SYSTEM on 68-92-5517Rqioq gap [Moles/Vol]11 mmol/LNormal6 - 16 mEq/LRemisol ChemCalcium [Mass/Vol]9.7 mg/dL Normal8.9 - 11.1 mg/dLRemisol ChemChloride [Moles/Vol]105 mmol/QBrieyo241 - 111 mmol/LRemisol ChemCO2 [Moles/Vol]25 mmol/KQnppwb14 - 31 mmol/LRemisol Chem Creatinine [Mass/Vol]0.6 mg/dLNormal0.5 - 1.3 mg/dLRemisol RcfhyNXF621 mL/min/1.73 r2Hfqzbk>=59mL/min/1.73 e1Hfjhziw ChemGlucose [Mass/Vol]85 mg/dL Pobakj85 - 199 mg/dLRemisol ChemHCG.beta subunit [id number] m[IU]/mLHigh1 - 3 mIU/mLRemisol ChemComment on above:Result Comment: 'F NON < 1 - 3' ' 0.2 - 1 WEEK = 5 TO 50' ' 1 - 2 WEEKS = 50 - 500' ' 2 - 3 WEEKS = 100 - 5000' ' 3 - 4 WEEKS = 500 - 73264' ' 4 - 5 WEEKS = 1000 - 43228' ' 5 - 6 WEEKS = 38494 - 332439' ' 6 - 8 WEEKS = 33157 - 704412' ' 8 - 12 WEEKS = 76112 - 355414'Potassium [Moles/Vol]3.7 mmol/LNormal3.5 - 5.3 mmol/LRemisol ChemSodium [Moles/Vol]137 mmol/YItnfvb351 - 145 mmol/L Remisol ChemUrea nitrogen [Mass/Vol]13 mg/dLNormal5 - 21 mg/dLRemisol ChemUrea nitrogen/Creatinine [Mass ratio]22 mg/guWhol93 - 20Remisol ChemConsent for Treatmenton 69-12-6401Cdpwbpk for Treatment [id number]#1.00[facility]Dis[facility] Instructionson 51-49-1341Ryxfwwmyg Instructions [id number]#1.00TIF[facility] Clinical Summaryon 24-52-1534GQ Clinical Summary [place] [id number] ED Clinical Summary Person Information Name: SEMAJSATHISHQING Bunch [facility] Age: 28 Years : 1995 Sex: Female Language: Iranian PCP: Thania OWENS DO, FAAFP Marital Status: Single Visit Id: Visit Reason: Vaginal bleeding; Pelvic pain; BLEEDING 6 WEEKS Speciality: Acuity: 3 Enc Type: Emergency Med Service: Emergency Arrival: 10/30/2023 18:16:12 Discharge: 10/30/2023 21:59:53 LOS: 000 03:43 Checkin: 10/30/2023 18:16:12 Checkout: 10/30/2023 21:59:53 Dispo Type: Home (Routine DC) EVENTS: Event Name Event Status Request Date/Time Start Date/Time Complete Date/Time Arrive Complete 10/30/2023 18:16:12 10/30/2023 18:16:12 10/30/2023 18:16:12 Document Home Meds Request 10/30/2023 18:16:12 Triage Complete 10/30/2023 18:16:12 10/30/2023 18:37:33 10/30/2023 18:37:33 Registration Complete 10/30/2023 18:19:16 10/30/2023 18:19:16 10/30/2023 18:19:16 Reg Complete Request 10/30/2023 18:19:16 Reg Bed Request Complete 10/30/2023 18:19:16 10/30/2023 18:19:16 10/30/2023 18:19:16 Bed Assign Complete 10/30/2023 18:41:24 10/30/2023 18:41:24 10/30/2023 18:41:24 Dr Exam Complete 10/30/2023 18:41:24 10/30/2023 18:56:38 10/30/2023 18:56:38 RN Exam Complete 10/30/2023 18:41:24 10/30/2023 19:10:29 10/30/2023 19:10:29 Pending Labs Complete 10/30/2023 18:52:30 10/30/2023 19:57:20 Blood Collect Request 10/30/2023 18:52:30 Lab Complete 10/30/2023 18:52:30 10/30/2023 19:57:20 Registration Complete 10/30/2023 18:56:38 10/30/2023 20:10:18 10/30/2023 20:10:18 Pending Labs Complete 10/30/2023 19:09:50 10/30/2023 19:09:50 10/30/2023 19:28:52 Lab Complete 10/30/2023 19:09:50 10/30/2023 19:09:50 10/30/2023 19:28:52 US Complete 10/30/2023 19:59:51 10/30/2023 20:46:23 10/30/2023 21:30:36 Patient Care Request 10/30/2023 20:00:16 Patient Care Complete 10/30/2023 20:00:17 10/30/2023 20:14:26 Pending Labs Complete 10/30/2023 20:00:17 10/30/2023 20:39:22 Pending Labs Complete 10/30/2023 20:09:53 10/30/2023 20:09:53 10/30/2023 20:09:53 US Complete 10/30/2023 21:07:24 10/30/2023 21:07:46 10/30/2023 21:31:23 Discharge Complete 10/30/2023 21:37:20 10/30/2023 22:00:12 10/30/2023 22:00:12 Transfer Complete 10/30/2023 22:00:12 10/30/2023 22:00:12 10/30/2023 22:00:12 ADDRESS: [address] [place] [id number] PHYS DOC NOTES: MEDICAL INFORMATION: Prescriptions Given: Medications to Continue with No Changes Other Medications ergocalciferol (Vitamin D 50,000 intl units (1.25 mg) oral capsule) 1 Capsules By Mouth every week.Refills: 11. ethinyl estradiol-norethindrone (Lo Loestrin Fe oral [...] day. Refills: 0. PATIENT EDUCATION INFORMATION: Instructions: Threatened Miscarriage, Etfw-ib-Mtzw Follow up: With: Address: When: Ahsan MENDOZA [facility], [address] [place] [address] [place] [address] Business (1) In 3 days 11/02/2023 Comments: Please follow-up with Dr. Mendoza on Wednesday. Until you are seen by him to rest and not put anything in the vagina. Please follow-up with your primary care doctor and SUPERVISOR FLESHING for further evaluation management. Return to ED for any new or worsening symptoms. With: Address: When: Thania Mcintyre, [place] [address] Business (1) In 3 days DIAGNOSIS: Threatened miscarriageNormalFisher Johnston Medical CenterED Patient Education Note on [id number] Patient Education NoteObstetrics and Gynecology Threatened Miscarriage A threatened miscarriage is when a woman bleeds in her vagina during the first 20 weeks of but the has not ended. The doctor will do tests to make sure you are still . This condition does not mean your will end, but it does increase the risk that it will end (miscarriage). What are the causes? Normally, the cause of this condition is not known. What increases the risk? These things may make a woman more likely to lose a : Certain health problems ? Conditions that affect hormones, such as thyroid disease or polycystic ovary syndrome. ? Diabetes. ? Disorders that cause the body's disease-fighting system to attack itself by mistake. ? Infections. ? Bleeding problems. ? Being very overweight. Lifestyle factors ? Using products that have tobacco or nicotine in them. ? Being around tobacco smoke. ? Having a lot of caffeine. ? Using drugs. Problems with reproductive organs or parts ? Having a cervix that opens and thins before you are ready to give . The cervix is the lowestpart of the womb. ? Having Asherman syndrome, which leads to: ? Scars in the womb. ? The womb being an abnormal shape. ? Growths (fibroids) in the womb. ? Problems in the body that are present at . ? Infection of the cervix or womb. Personal or health history ? Injury. ? Having lost an unborn baby before. ? Being younger than age 18 or older than age 35. ? Being around a harmful substance, such as radiation. ? Having lead or other heavy metals in: ? Things you eat or drink. ? The air around you. ? Using certain medicines. What are the signs or symptoms? ? Bleeding from the vagina. You may also have cramps or pain. ? Mild pain or cramps in your belly. How is this diagnosed? ? The doctor will do tests, such as an ultrasound to make sure you are still . How is this treated? There are no treatments that prevent loss of . But you need to do the right things to takecare of yourself at home. Follow these instructions at home: ? Get a lot of rest. ? Do not have sex or douche if there is bleeding in the vagina. ? Do not put things such as tampons in the vagina if it is bleeding. ? Do not smoke or use drugs. ? Do not drink alcohol. ? Avoid caffeine. ? Keep all follow-up visits while you are . Contact a doctor if: ? You are and you have one of these: ? Light bleeding coming from your vagina. ? Spots of blood coming from your vagina. ? You have belly pain or cramping. ? You have a fever. Get help right away if: ? Blood soaks through 2 large pads an hour for more than 2 hours. ? Clots of blood come from your vagina. ? Tissue comes out of your vagina. ? Fluid leaks or gushes from your vagina. ? You have very bad pain in your low back. ? You have very bad cramps in your belly. ? You have a fever, chills, and very bad belly pain. Summary ? A threatened miscarriage is when a woman bleeds in her vagina during the first 20 weeks of but the has not ended. ? Normally, the cause of this condition is not known. ? Symptoms include bleeding in the vagina or mild pain or cramps in your belly. ? There are no treatments that prevent loss of . ? Keep all follow-up visits while you are . This information is not intended to replace advice given to you by your health care provider. Make sure you discuss any questions you have with your health care provider. Document Revised: 01/17/2021 Document Reviewed: 01/17/2021 e27 Patient Education ? 2022 [employer] ED Patient Summaryon [id number] Patient Summary [place] [id number] Patient Discharge Instructions Person Information Name: MILADIS CHA Age: 28 Years Arrival Date: 10/30/2023 18:16:12 Discharge Diagnosis: Threatened miscarriage Primary Care Physician: Thania OWENS DO, FAAFP Provider Information Primary Provider: Libby Ham DO Advanced Cinder Pit Crane Operator:None The exam and treatment you received in the Emergency Department were for an urgent problem and are not intended as complete care. It is important that you follow up with a doctor, nurse practitioner,or physician?s family practice physician assistant for ongoing care. If your symptoms become worse or you do not improve as expected and you are unable to reach your usual health care provider, you should return to the Emergency Department. We are available 24 hours a day. MILADIS CHA has been given the following list of patient education materials, prescriptions and follow-up instructions: Follow-up Instructions: With: Address: When: Ahsan MENDOZA [facility], [address] [place] [address] [place] [address] Business (1) In 3 days 11/02/2023 Comments: Please follow-up with Dr. Mendoza on Wednesday. Until you are seen by him to rest and not put anything in the vagina. Please follow-up with your primary care doctor and SUPERVISOR FLESHING for further evaluation management. Return to ED for any new or worsening symptoms. With: Address: When: [place] [address] Business (1) In 3 days In the event that this physician does not participate in your insurance network, please consult with your insurance company to find a nearby participating provider. Patient Education Materials: Threatened Miscarriage, Lwij-rr-Qmux A MESSAGE TO ALL PATIENTS REGARDING OPIOIDS PRESCRIPTION OPIOIDS: WHAT YOU NEED TO KNOW Prescription opioids can be used to help relieve mhyexadq-rm-bbarry pain and are often prescribed following a [...] and have fewer risks and side effects. Optionsmay include: ? Pain relievers such as acetaminophen, [...] unused prescription opioids: Find your community drug take- back program or yourpharmacy (more content not included)...[facility] CampusHEMATOLOGYOrdered By: SYSTEM SYSTEM on 97-67-6917Ktftlqoae/100 WBC (Bld)1.5 %Normal0.0 - 2.0 %Remisol HemeBasophils/Leukocytes Auto (Bld) [Pure # fraction]0.1 E9/LNormal0.0 - 0.2 E9/LRemisol HemeEosinophils (Bld) [#/Vol]0.1 E9/LNormal0.0 - 0.5 E9/LRemisol HemeEosinophils/100 WBC (Bld)1.4 %Normal0.0 - 8.0 %Remisol HemeErythrocyte distribution width (RBC) [Ratio]13.5 %Hycpwj04.9 - 14.2 %Remisol HemeHematocrit (Bld) [Volume fraction]41.5 %Qlqbwv26.0 - 46.0 % Remisol HemeHemoglobin (Bld) [Mass/Vol]13.5 g/nBVnleeq84.0 - 16.0 gm/dLRemisol HemeLymphocytes (Bld) [#/Vol]1.5 E9/LNormal1.0 - 4.0 E9/LRemisol Heme Lymphocytes/100 WBC (Bld)26.3 %Nwlnsa25.0 - 50.0 %Remisol HemeMCH (RBC) [Entitic mass]28.7 umEeqdpy33.0 - 34.0 pgRemisol HemeMCHC (RBC) [Mass/Vol]32.7 g/dL Dmzrrr79.4 - 36.0 gm/dLRemisol HemeMCV (RBC) [Entitic vol]87.8 nPDebrpj82.0 - 100.0 fLRemisol HemeMonocytes (Bld) [#/Vol]0.4 E9/LNormal0.2 - 1.0 E9/LRemisol HemeMonocytes/100 WBC (Bld)7.2 %Normal4.0 - 14.0 %Remisol HemeNeutrophils (Bld) [#/Vol]3.5 E9/LNormal2.0 - 7.5 E9/LRemisol HemeNeutrophils/100 WBC (Bld)63.6 % Drkphm55.0 - 75.0 %Remisol PkbnGxnibard732.0 E9/PDjybzm012.0 - 500.0 E9/LRemisol HemePlatelet mean volume (Bld) [Entitic vol]7.9 fLNormal6.4 - 10.8 fLRemisol HemeRBC (Bld) [#/Vol]4.7 E12/LNormal4.3 - 5.9 E12/LRemisol HemeWBC corrected for nucl RBC Auto (Bld) [#/Vol]5.6 E9/LNormal4.0 - 11.0 E9/LRemisol HemeUA with Cult Rflxon 95-22-7826Uudzf (U)Light-YellowNormalYellowMiami Valley HospitalComment on above:Result Comment: Microscopic readings are only performed on those samples that meet specific criteria set forth by [facility].Performed By: #### [id number] #### [facility] [address], [place] [address]Rjwygoj (U) [Mass/Vol]NegativeNormalNegativeMiami Valley HospitalComment on above:Performed By: #### [id number] #### [facility] [address], [place] [address]Kpprkgj Ql (U)NegativeNormalNegativeMi[facility] Comment on above:Performed By: #### [id number] #### [facility] [address], [place] [address]BT BloodNegativeNormalNegWooster Community Hospital Comment on above:Performed By: #### [id number] #### [facility] [address], [place] [address]WA ClarityClearNormalClearMiami Valley HospitalComment on above:Performed By: #### [id number] #### [facility] [address], [place] [address]JR Leuk EstNegativeNormalNegWooster Community Hospital Comment on above:Performed By: #### [id number] #### [facility] [address], [place] [address]GZ NitriteNegativeNormalNegWooster Community Hospital Comment on above:Performed By: #### [id number] #### [facility] [address], [place] [address]MH pH7.0Invalid Interpretation Code5.0-9.0Mi[facility] HospitalComment on above:Performed By: #### [id number] #### [facility] [address], [place] [address]GQ ProteinNegativeNormalNegWooster Community Hospital Comment on above:Performed By: #### [id number] #### [facility] [address], [place] [address]QM Spec Grav1.022Invalid Interpretation Code1.005-1.030[facility] HospitalComment on above:Performed By: #### [id number] #### [facility] [address] [place] [id number] UrobilinogenNegativeNormalNegativeMiami Valley HospitalComment on above:Performed By: #### [id number] #### [facility] [address] [place] [address]Zezkdotkjfug (U) [Mass/Vol]NegativeNormalNegativeMiami Valley HospitalComment on above:Performed By: #### [id number] #### [facility] [address] [place] [id number] Spec DescClean CatchNormalMiami Valley HospitalComment on above:Performed By: #### [id number] #### [facility] [address] [place] [address]OIMKINXXIDLpjnfup By: SYSTEM SYSTEM on 43-55-6373Xdkbx (U) Light-Yellow 1 (10/30/23 8:29 PM)NormalYellowDRUMRIGHT [facility]IONAL [facility] UA Auto SSComment on above:Interpretive Data: Microscopic readings are only performed on those samples that meet specific criteria set forth by [facility].Glucose (U) [Mass/Vol]NegativeNormalNegativemg/dLDRUMRIGHT REGIONAL HOSPITAL [facility] [place] UA Auto SSKetones Ql (U)NegativeNormal Negativemg/dLDRUMRIGHT REGIONAL HOSPITAL [facility] [place] UA Auto SSUA BloodNegativeNormalNegativemg/dLDRUMRIGHT REGIONAL HOSPITAL [facility] [place] UA Auto SSUA ClarityClear (10/30/23 8:29 PM)NormalClearFTMC UA Auto SSUA Leuk EstNegativeNormal NegativeLeu/uLFT UA Auto SSUA NitriteNegativeNormalNegativemg/dLFT UA Auto SSUA pH6.5 *NA* (10/30/23 8:29 PM)Invalid Interpretation Code5.0 - 9.0FT UA Auto SSUA Protein NegativeNormalNegativemg/dLDRUMRIGHT REGIONAL [facility]OS[facility] [place] UA Auto SSUA Spec Grav1.020 *NA* (10/30/23 8:29 PM)Invalid Interpretation Code1.005 - 1.030[facility]A Auto SSUA UrobilinogenNegativeNormalNegativemg/dLDRUMRIGHT REGIONAL [facility]OS[facility] [place] UA Auto SSUrobilinogen (U) [Mass/Vol]NegativeNormalNegativemg/dLDRUMRIGHT REGIONAL [facility] [place] UA Auto SSColor (U)Light-Yellow 2 (10/30/23 6:50 PM)NormalYellowDRUMRIGHT REGIONAL HOS[facility] [place] UA Auto SSComment on above:Interpretive Data: Microscopic readings are only performed on those samples that meet specific criteria set forth by [facility].Glucose (U) [Mass/Vol]NegativeNormalNegativemg/dLDRUMRIGHT REGIONAL [facility] [place] UA Auto SSKetones Ql (U)NegativeNormal Negativemg/dLDRUMRIGHT REGIONAL [facility]OS[facility] [place] UA Auto SSUA BloodNegativeNormalNegativemg/dLDRUMRIGHT REGIONAL HOSPITAL [facility] [place] UA Auto SSUA ClarityClear (10/30/23 6:50 PM)NormalClearFOKLAHOMA ER & [facility] UA Auto SSUA Leuk EstNegativeNormal NegativeLeu/uLFT UA Auto SSUA NitriteNegativeNormalNegativemg/dLDRUMRIGHT REGIONAL [facility] [place] UA Auto SSUA pH7.0 *NA* (10/30/23 6:50 PM)Invalid Interpretation Code5.0 - 9.0DR[facility] [place] UA Auto SSUA Protein NegativeNormalNegativemg/dLDRUMRIGHT REGIONAL [facility]OS[facility] [place] UA Auto SSUA Spec Grav1.022 *NA* (10/30/23 6:50 PM)Invalid Interpretation Code1.005 - 1.030[facility] UA Auto SSUA UrobilinogenNegativeNormalNegativemg/dLDRUMRIGHT REGIONAL HOS[facility]ITAL [facility] [place] UA Auto SSUrobilinogen (U) [Mass/Vol]NegativeNormalNegativemg/dLDRUMRIGHT REGIONAL HOS[facility]ITAL [facility] [place] UA Auto SSURINALYSISOrdered By: L[place]na [place] on 86-86-4156JQ Spec DescFoley (10/30/23 8:29 PM)NormalDRUMRIGHT REGIONAL HOSPITAL [facility] [place] UA Auto SSURINALYSISOrdered By: Louis Santa on 35-81-6561GT Spec DescClean Catch (10/30/23 6:50 PM)NormalDRUMRIGHT REGIONAL HOSPITAL [facility] UA Auto SS eGFRon 49-17-7322vORK788 mL/min/1.73 v4Mibalg>=59Mi[facility] Valley HospitalComment on above:Order Comment: Order added by Discern Expert.Performed By: #### [id number], [id number] ####[facility] [address] [place], [place] [address]CeTG Quanton 10-25-2023 HCG.beta subunit Kz56570 m[IU]/mLHigh1-3FShelby Memorial HospitalComment on above:Result Comment: 'F NON < 1 - 3' ' 0.2 - 1 WEEK = 5 TO 50' ' 1 - 2 WEEKS = 50 - 500' ' 2 - 3 WEEKS = 100 - 5000' ' 3 - 4 WEEKS = 500 - 97942' ' 4 - 5 WEEKS = 1000 - 94704' ' 5 - 6 WEEKS = 08820 - 319219' ' 6 - 8 WEEKS = 11465 - 963612' ' 8 - 12 WEEKS = 40320 - 983544'Performed By: #### [id number] #### [facility] [address], [place] [address]PSQMHZLNEClrxqyx By: SYSTEM SYSTEM on 63-87-4868MCH.beta subunit Yh92933 m[IU]/mLHigh1 - 3 mIU/mLRemisol ChemComment on above:Result Comment: 'F NON < 1 - 3' ' 0.2 - 1 WEEK = 5 TO 50' ' 1 - 2 WEEKS = 50 - 500' ' 2 - 3 WEEKS = 100 - 5000' ' 3 - 4 WEEKS = 500 - 58654' ' 4 - 5 WEEKS = 1000 - 93123' ' 5 - 6 WEEKS = 12107 - 709331' ' 6 - 8 WEEKS = 52759 - 217622' ' 8 - 12 WEEKS = 29837 - 258316'Consent for Treatmenton 10-25-2023 Consent for [id number]#1.00TIFFNormal [facility] HospitalPhysician Orderon [id number] Order [id number]#1.00TIFFNormalTrihealth CenterED Note-Physicianon 03-97-7970AH Note-PhysicianBasic Information Time Seen: Ruchi Waldrop PA-C 10/06/2023 11:12 Chief Complaint posterior left knee pain and swelling since yesterday. reports hx blood clot in her last preg. she is currently 6 wks preg. denies injury. denies daily thinners. History of Present Illness 27-year-old female who is 6 weeks presents for pain behind her left knee that started yesterday. 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 She is not on blood thinners. Denies injury. Denies swelling, temperature or sensation changes. Review of Systems Review of systems negative unless otherwise stated in HPI Physical Exam Vitals & Measurements T: 36.8 ?C(Oral) HR: 81(Peripheral) RR: 18 BP: 105/68 SpO2: 100% HT: 160 cm WT: 64 kg BMI: 25 PHYSICAL EXAM: GENERAL: ALERT, NO ACUTE DISTRESS SKIN: WARM, DRY, INTACT; NO CYANOSIS, NO RASH, NO ECCHYMOSIS HEAD: NORMOCEPHALIC, ATRAUMATIC NECK: SUPPLE, TRACHEA MIDLINE, FROM RESPIRATORY: NON-LABORED RESPIRATIONS, SYMMETRICAL EXPANSION EXTREMITIES: Tender to left popliteal area, NO CYANOSIS, NO EDEMA, FROM ALL EXTREMITIES X 4, PULSESINTACT, NORMAL STRENGTH, NO DEFORMITY, CAPILLARY REFILL INTACT NEUROLOGICAL: A&OX3, SENSORY INTACT PSYCHIATRIC: COOPERATIVE, APPROPRIATE MOOD AND AFFECT Medical Decision Making Per apartment maintenance technician, negative for DVT. Possibly strain. Possibly Bains's cyst, although this would have shown up on ultrasound. She will be placed in an Kody wrap. Neurovascular intact. She is to follow-up family doctor. Afebrile, not tachycardic, not tachypneic, nontoxic-appearing, tolerating p.o. and ambulating at baseline and hemodynamically stable to be discharged home. Answered all questions.Patient in agreement with treatment. Assessment/Plan 1. Left leg pain (M79.605: Pain in left leg) Orders: US LE Venous Duplex Left Disposition Plan Patient Discharge Condition Stable Discharge Disposition Home Discharge Prescription List Prescriptions No active prescription medications Follow-up With When Contact Information KAYLIN GIL FAAFP, Thania Bunch, PATRICIA, PED In 3 days 10/09/2023 EST [address] [facility], [place] [address]- Additional Instructions: Patient Education Musculoskeletal Pain Attestation I performed a substantive part of the MDM during the patient?s E/M visit. I personally made or approved the documented management plan and acknowledge its risk of complications. (Independent Interpretation) My (EKG/X-Ray/US/CT) interpretation as above. (Discussion) Management/test interpretation discussed with APC. Problem List/Past Medical History Ongoing Abnormal mammogram [...] duct lesion, nipple or areolar lesion (except [address]3618), open, male or female, 1 or more lesions (11/01/2020),Esophagogastroduodenoscopy (04/14/2019), Laparoscopy (2018), Colonoscopy (02/25/2015), wisdom teethremoved x4 (2010). Medications Inpatient No active inpatient medications Home Lo Loestrin Fe oral tablet Naprosyn 500 mg Tab, 500 mg= 1 tab(s), Oral, BID, PRN omeprazole 40 mg Cap-DR, 40 mg= 1 cap(s), Oral, Daily Vitamin D 50,000 intl units (1.25 mg) oral capsule, 22036 International_Unit= 1 cap(s), Oral, qWeek, 11 refills, Not taking Zofran ODT 4 mg Tab-Dis, 4 mg= 1 tab(s), Oral, TID Allergies Bactrim (hives) Social History Alcohol - Denies Alcohol Use, 08/04/2019 Current, Beer, 1-2 times per year, 05/30/2021 1-2 times per year, 11/16/2020 Substance Abuse - Denies Substance Abuse, 08/04/2019 Tobacco - Denies Tobacco Use, 03/16/2019 Never (less than 100 in lifetime) Tobacco Use:. Never Smokeless Tobacco Use:., 08/14/2022 Family History Diabetes mellitus type 2: Mother. Lab Results No qualifying data available. Diagnostic Results No qualifying data available.NormalOn License Of [facility] Centerer [facility] Hospital CenterComment on above: Result Comment: Electronically Signed By: Ruchi Waldrop PA-C\.br\Date and Time Signed: 10/06/23 12:03 EST\.br\Electronically Co-Signed By: Son Reyes MD\.br\Date and Time Co-Signed: 10/23/23 19:26EDTBhCG Quanton 10-22-2023 HCG.beta subunit [id number] m[IU]/mLHigh1-3Fisher [facility] Hospital CenterComment on above:Result Comment: 'F NON < 1 - 3' ' 0.2 - 1 WEEK = 5 TO 50' ' 1 - 2 WEEKS = 50 - 500' ' 2 - 3 WEEKS = 100 - 5000' ' 3 - 4 WEEKS = 500 - 29296' ' 4 - 5 WEEKS = 1000 - 56547' ' 5 - 6 WEEKS = 74037 - 911083' ' 6 - 8 WEEKS = 44486 - 041529' ' 8 - 12 WEEKS = 15127 - 669367'Performed By: #### [id number] ####[facility] [address] [place], [place] [address]ZUTIFMMRIFtuqjzt By: SYSTEM SYSTEM on 08-14-0446ZOS.beta subunit Tl30056 m[IU]/mLHigh1 - 3 mIU/mLRemisol ChemComment on above:Result Comment: 'F NON < 1 - 3' ' 0.2 - 1 WEEK = 5 TO 50' ' 1 - 2 WEEKS = 50 - 500' ' 2 - 3 WEEKS = 100 - 5000' ' 3 - 4 WEEKS = 500 - 14073' ' 4 - 5 WEEKS = 1000 - 10849' ' 5 - 6 WEEKS = 40950 - 652399' ' 6 - 8 WEEKS = 08640 - 876618' ' 8 - 12 WEEKS = 49613 - 284303'Consent for Treatmenton 10-22-2023 Consent for [id number]#1.00TIFFNormal [facility] CenterPhysician Orderon [id number] Order [id number]#1.00TIFFNormLaura [facility] Hospital CenterUS OB TRANSVAGINALon 05-02-80[place] [address] Ultrasound Report Signed Patient: MILADIS CHA MR#: [id number] : 1995 Acct:[id number] Age/Sex: 27 / F ADM Date: 10/22/23 Loc: [facility] Attending Dr: Ahsan Mendoza D.O. Ordering Physician: Ahsan Mendoza D.O. Date of Service: 10/22/23 Procedure(s): US OB transvaginal Accession Number(s): [id number] cc: Ahsan Mendoza D.O.; Physician,Non-Staff M.DMaricruz [place] [id number] Patient Name: MILADIS CHA MRN: [id number] date: 1995 Sex: F Assigned Patient Location: [facility] Current Patient Location: [facility] Accession/Order Number: [id number] Exam Date: 10/22/2023 08:57 Report Date: 10/22/2023 10:35 At the request of: AHSAN MENDOZA Procedure: US OB transvaginal EXAMINATION: US [...] AGE BY LMP: 8 weeks 2 days HOMER BY LMP: 05/31/2024 AGE BY US CRL: 5 weeks 6 days HOMER BY US CRL: 06/17/2024 US/US OB transvaginal IMPRESSION: 1. Single intrauterine 5 weeks 6 days by today's ultrasound. 2. No detectable heartbeat at this time. Electronically authenticated by: CELY PLATA Date: 10/22/2023 10:35 Dictated By: Cely Plata M.D. Signed By: 10/22/23 1037 DD/ 1035 TD/TT: Fixed Route Bus Operator:TIAadiology, Radiologist, - 10/22/2023 [place] [address] Ultrasound Report Signed Patient: MILADIS CHA MR#: [id number] : 1995 Acct:[id number] Age/Sex: 27 / F ADM Date: 10/22/23 Loc: [facility] Attending Dr: Ahsan Mendoza D.O. Ordering Physician: Ahsan Mendoza D.O. Date of Service: 10/22/23 Procedure(s): US OB transvaginal Accession Number(s): [id number] cc: Ahsan Mendoza D.O.; Physician,Non-Staff [place] [address] Patient Name: MILADIS CHA MRN: [id number]:[id number] date: 1995 Sex: F Assigned Patient Location: [facility] Current Patient Location: [facility] Accession/Order Number: [id number] Exam Date: 10/22/2023 08:57 Report Date: 10/22/2023 10:35 At the request of: AHSAN MENDOZA Procedure: US OB transvaginal EXAMINATION: US [...] AGE BY LMP: 8 weeks 2 days HOMER BY LMP: 05/31/2024 AGE BY US CRL: 5 weeks 6 days HOMER BY US CRL: 06/17/2024 US/US OB transvaginal IMPRESSION: 1. Single intrauterine 5 weeks 6 days by today's ultrasound. 2. No detectable heartbeat at this time. Electronically authenticated by: CELY PLATA Date: 10/22/2023 10:35 Dictated By: Cely Plata M.D. Signed By: 10/22/23 1037 DD/ 1035 TD/TT: Fixed Route Bus Operator: GEETA HealthcareRadiology Study observation (narrative)[facility] HealthcareUS OB TRANSVAGINALOrdered By: Radiologist Radiology on 95-55-4706[facility] Work Phone: consent for Treatmenton 46-55-9721Vqvgeex for [id number]#1.00TIFBlanchard Valley Health System Bluffton HospitalDischarge Instructionson 22-20-6413Uzsiqnwhg Instructions [id number]#1.00TIFParma Community General Hospital Clinical Summaryon 57-54-8439YV Clinical Summary [place] [address] ED Clinical Summary Person Information Name: MILADIS CHA [facility] Age: 27 Years : 1995 Sex: Female Language: Iranian PCP: Thania OEWNS DO, FAAFP Marital Status: Single Visit Id: [...] 10/06/2023 12:10:11 10/06/2023 12:10:11 10/06/2023 12:10:11 ADDRESS: [address] [place] [id number] [facility] DOC NOTES: MEDICAL INFORMATION: Prescriptions Given: Medications to Continue with No Changes Other Medications ergocalciferol (Vitamin D 50,000 intl units (1.25 mg) oral capsule) 1 Capsules By Mouth every week.Refills: 11. ethinyl estradiol-norethindrone (Lo Loestrin Fe oral [...] Pain Follow up: With: Address: When: KAYLIN DO FAAFP, Thania Bunch, PATRICIA, PED [address], [place] [address] In 3 days 10/09/2023 DIAGNOSIS: 1:Left leg painNormalFisher Johnston Medical CenterED Patient Education Noteon 98-08-1699JE Patient Education NoteOrthopedics Musculoskeletal Pain Musculoskeletal pain refers to aches and pains in your bones, joints, muscles, and the tissues thatsurround them. This pain can occur in any part of the body. It can last for a short time (acute) ora long time (chronic). A physical exam, lab [...] cause more pain. When the pain gets better,slowly resume your normal activities. Gradually increase the intensity and duration of your activities or exercise. Managing pain, stiffness, and swelling ? Treatment may include medicines for pain and inflammation that are taken by mouth or applied to the skin. Take vyaa-ccb-fptwmzu and prescription medicines only as told by [...] musculoskeletal pain. Ways to lower stress may includemeditation, yoga, cognitive or behavioral therapy, acupuncture, and massage therapy. This information is not intended to replace advice given to you by your health care provider. Make sure you discuss any questions you have with your health care provider. Document Revised: 11/21/2020 Document Reviewed: 10/30/2020 Elsevier Patient Education ? 2022 [employer] ED Patient Summaryon 47-23-6215LF Patient Summary [address] [address] Patient Discharge Instructions Person Information Name: MILADIS CHA Age: 27 Years Arrival Date: 10/06/2023 11:00:50 Discharge Diagnosis: 1:Left leg pain Primary Care Physician: Thania OWENS DO, FAAFP Provider Information Primary Provider: Advanced Cinder Pit Crane Operator:None The exam and treatment you received in the Emergency Department were for an urgent problem and are not intended as complete care. It is important that you follow up with a doctor, nurse practitioner,or physician?s family practice physician assistant for ongoing care. If your symptoms become worse or you do not improve as expected and you are unable to reach your usual health care provider, you should return to the Emergency Department. We are available 24 hours a day. MILADIS CHA has been given the following list of patient education materials, prescriptions and follow-up instructions: Follow-up Instructions: With: Address: When: Thania OWENS DO, FAAFP, [facility], PED [address], [place] [address] In 3 days 10/09/2023 In the event that this physician does not participate in your insurance network, please consult with your insurance company to find a nearby participating provider. Patient Education Materials: Musculoskeletal Pain A MESSAGE TO ALL PATIENTS REGARDING OPIOIDS PRESCRIPTION OPIOIDS: WHAT YOU NEED TO KNOW Prescription opioids can be used to help relieve darcbkcq-sj-uvechx pain and are often prescribed following a [...] and have fewer risks and side effects. Optionsmay include: ? Pain relievers such as acetaminophen, [...] unused prescription opioids: Find your community drug take- back program or yourpharmacy mail-back program, or flush them down the toilet, following guidance from the Food and Drug Administration (www.fda.gov/Drugs/ResourcesForYou). ? Visit www.cdc.gov/drugoverdose to learn about the risks of opioids abuse and overdose. ? If you believe you may be struggling with addiction, tell your health student career development specialist and ask for guidance or call [facility]ITALA?S National Helpline at 2-711-712-UGKG. v Source: US Department of Health and Human Serv (more content not included)... [facility] CampusUS LE Venous Duplex Lefton 38-49-5194QB LE Venous Duplex LeftExam Date/Time: 10/06/2023 11:49 EST Reason for Exam: [...] Trey Rodrigez MD Transcribed by: SEBASTIAN Technologist: MonaMiami Valley HospitalBhCG Quanton 70-23-2688Nqhl hCG Qjx962 mIU/mLHigh1-3Fisher [facility] Hospital CenterComment on above:Result Comment: 'F NON < 1 - 3' ' 0.2 - 1 WEEK = 5 TO 50' ' 1 - 2 WEEKS = 50 - 500' ' 2 - 3 WEEKS = 100 - 5000' ' 3 - 4 WEEKS = 500 - 54849' ' 4 - 5 WEEKS = 1000 - 55173' ' 5 - 6 WEEKS = 53406 - 255601' ' 6 - 8 WEEKS = 38220 - 700948' ' 8 - 12 WEEKS = 95438 - 349472'Performed By: #### [id number] #### [facility] [address] [place], [place] [address]IPFAFZVVCLjaufml By: SYSTEM SYSTEM on 21-17-0751NRN.beta subunit Qn106 m[IU]/mLHigh1 - 3 mIU/mLRemisol ChemComment on above:Result Comment: 'F NON < 1 - 3' ' 0.2 - 1 WEEK = 5 TO 50' ' 1 - 2 WEEKS = 50 - 500' ' 2 - 3 WEEKS = 100 - 5000' ' 3 - 4 WEEKS = 500 - 67436' ' 4 - 5 WEEKS = 1000 - 21313' ' 5 - 6 WEEKS = 34638 - 770468' ' 6 - 8 WEEKS = 87848 - 748993' ' 8 - 12 WEEKS = 59830 - 249855'Consent for Treatmenton 09-25-2023 Consent for [id number]#1.00TIFFNormal Miami Valley HospitalPhysician Orderon 13-84-0071Rrtlzmuai Order [id number]#1.00TIFFNormalMiami Valley HospitalBhCG Quanton 53-98-6769Qndr hCG Qnt56 mIU/mLHigh1-3FShelby Memorial HospitalComment on above:Result Comment: 'F NON < 1 - 3' ' 0.2 - 1 WEEK = 5 TO 50' ' 1 - 2 WEEKS = 50 - 500' ' 2 - 3 WEEKS = 100 - 5000' ' 3 - 4 WEEKS = 500 - 50607' ' 4 - 5 WEEKS = 1000 - 59243' ' 5 - 6 WEEKS = 60233 - 134940' ' 6 - 8 WEEKS = 09684 - 181747' ' 8 - 12 WEEKS = 16324 - 246045'Performed By: #### [id number] #### [facility] [address] [place], [place] [address]QRMNLAIAZDwrxieq By: SYSTEM SYSTEM on 06-45-3613JQS.beta subunit Qn56 m[IU]/mLHigh1 - 3 mIU/mLRemisol ChemComment on above:Result Comment: 'F NON < 1 - 3' ' 0.2 - 1 WEEK = 5 TO 50' ' 1 - 2 WEEKS = 50 - 500' ' 2 - 3 WEEKS = 100 - 5000' ' 3 - 4 WEEKS = 500 - 78480' ' 4 - 5 WEEKS = 1000 - 54852' ' 5 - 6 WEEKS = 35784 - 080539' ' 6 - 8 WEEKS = 82089 - 445836' ' 8 - 12 WEEKS = 77374 - 470017'Consent for Treatmenton 09-23-2023 Consent for [id number]#1.00TIFFNormal [facility] CenterUS PELVISon 25-18-[place] [address] Ultrasound Report Signed Patient: MILADIS CHA MR#: [id number] : 1995 Acct:[id number] Age/Sex: 27 / F ADM Date: 07/23/23 Loc: SURGOUT Attending Dr: Ahsan Mendoza D.O. Ordering Physician: Ahsan Mendoza D.O. Date of Service: 07/23/23 Procedure(s): US pelvis Accession Number(s): [id number] cc: Ahsan Mendoza D.O.; Physician,Non-Staff M.DMaricruz The [place] [id number] Patient Name: MILADIS CHA MRN: [facility]:[id number] date: 1995 Sex: F Assigned Patient Location: [facility] Current Patient Location: [facility] Accession/Order Number: [id number] Exam Date: 07/23/2023 10:37 Report Date: 07/23/2023 11:28 At the request of: AHSAN MENDOZA Procedure: US pelvis PROCEDURE: US pelvis, 07/23/2023 10:37 AM EST CLINICAL INDICATIONS: Evaluation for retained products of conception. COMPARISON: None TECHNIQUE: Transabdominal pelvic sonogram, grayscale assessment. FINDINGS: A single sagittal image of the uterus is presented. Endometrial echo complex 0.8 cm. Color-flow assessment was not performed. Focal uterine abnormality is not demonstrated. No free fluid seen. US/US pelvis IMPRESSION: 1. Limited evaluation demonstrates 0.8 cm endometrial echo complex without criteria for retained products of conception demonstrated. Electronically authenticated by: ALETHEA HALL Date: 07/23/2023 11:28 Dictated By: Alethea Hall M.D. Signed By: 07/23/23 1130 DD/ 1128 TD/TT: Fixed Route Bus Operator:TBHRadiology, Radiologist, MD - 07/23/2023 [place] [address] Ultrasound Report Signed Patient: MILADIS CHA MR#: [id number] : 1995 Acct:[id number] Age/Sex: 27 / F ADM Date: 07/23/23 Loc: SURGOUT Attending Dr: Ahsan Mendoza D.O. Ordering Physician: Ahsan Mendoza D.O. Date of Service: 07/23/23 Procedure(s): US pelvis Accession Number(s): [id number] cc: Ahsan Mendoza D.O.; Physician,Non-Staff [place] The [address] [address] Patient Name: MILADIS CHA MRN: [id number] date: 1995 Sex: F Assigned Patient Location: [facility] Current Patient Location: [facility] Accession/Order Number: [id number] Exam Date: 07/23/2023 10:37 Report Date: 07/23/2023 11:28 At the request of: AHSAN MENDOZA Procedure: US pelvis PROCEDURE: US pelvis, 07/23/2023 10:37 AM EST CLINICAL INDICATIONS: Evaluation for retained products of conception. COMPARISON: None TECHNIQUE: Transabdominal pelvic sonogram, grayscale assessment. FINDINGS: A single sagittal image of the uterus is presented. Endometrial echo complex 0.8 cm. Color-flow assessment was not performed. Focal uterine abnormality is not demonstrated. No free fluid seen. US/US pelvis IMPRESSION: 1. Limited evaluation demonstrates 0.8 cm endometrial echo complex without criteria for retained products of conception demonstrated. Electronically authenticated by: ALETHEA HALL Date: 07/23/2023 11:28 Dictated By: Alethea Hall M.D. Signed By: 07/23/23 1130 DD/ 1128 TD/TT: Fixed Route Bus Operator: GEETA LunaRadiology Study observation (narrative)[facility] HealthcareUS PELVIS Ordered By: Radiologist Radiology on 72-87-4632[facility] Work Phone: US OB TRANSVAGINALon [phone], [place] [address] Ultrasound Report Signed Patient: MILADIS CHA MR#: [id number] : 1995 Acct:[id number] Age/Sex: 27 / F ADM Date: 07/22/23 Loc: US Attending Dr: Ahsan Mendoza D.O. Ordering Physician: Ahsan Mendoza D.O. Date of Service: 07/22/23 Procedure(s): US OB transvaginal Accession Number(s): [id number] cc: Ahsan Mendoza D.O.; Physician,Non-Staff [place] The [address] [address] Patient Name: MILADIS CHA MRN: [id number] date: 1995 Sex: F Assigned Patient Location: Current Patient Location: [facility] Accession/Order Number: [id number] Exam Date: 07/22/2023 08:02 Report Date: 07/22/2023 22:29 At the request of: AHSAN MENDOZA Procedure: US OB transvaginal EXAMINATION: US [...] with no detectable heartbeat and no growth since study 7 days ago. Findings favor demise. 2. No findings to suggest impending . Electronically authenticated by: CELY PLATA Date: 07/22/2023 22:29 Dictated By: Cely Plata M.D. Signed By: 07/22/232231 DD/ 28 TD/TT: Fixed Route Bus Operator:TBHRadiology, Radiologist, MD - 10/06/2023 [place] [address] Ultrasound Report Signed Patient: MILADIS CHA MR#: [id number] : 1995 Acct:[id number] Age/Sex: 27 / F ADM Date: 07/22/23 Loc: US Attending Dr: Ahsan Mendoza D.O. Ordering Physician: Ahsan Mendoza D.O. Date of Service: 07/22/23 Procedure(s): US OB transvaginal Accession Number(s): [id number] cc: Ahsan Mendoza D.O.; Physician,Non-Staff [place] [facility] [place] [id number] Patient Name: MILADIS CHA MRN: [id number] date: 1995 Sex: F Assigned Patient Location: Current Patient Location: [facility] Accession/Order Number: [id number] Exam Date: 07/22/2023 08:02 Report Date: 07/22/2023 22:29 At the request of: AHSAN MENDOZA Procedure: US OB transvaginal EXAMINATION: US [...] with no detectable heartbeat and no growth since study 7 days ago. Findings favor demise. 2. No findings to suggest impending . Electronically authenticated by: CELY PLATA Date: 07/22/2023 22:29 Dictated By: Cely Plata M.D. Signed By: 07/22/232231 DD/ 28 TD/TT: Fixed Route Bus Operator: GEETA HealthcareRadiology Study observation (narrative)NOM HealthcareUS OB TRANSVAGINALOrdered By: Radiologist Radiology on 02-90-3869MONP [place] Work Phone: ed Note-Physicianon [phone] Note-PhysicianBasic Information Time Seen: Son Reyes MD 07/15/2023 08:38 Sorry for the Chief Complaint pt is approx 7 wks preg, reports increase in vomiting, lower abd pain and lower back pain since last night. has had an ultrasound with faomiio. History of Present Illness 27-year-old female comes to the ED for evaluation of abdominal pain. The patient reports she is currently 7 weeks . She states she has pain across the lower abdomen with associated nausea andvomiting. She has had some nausea throughout her [...] ultrasound was discussed at length with the donor technician and reviewed by radiologist. There is intrauterine gestational sac with a possible pole, however this is only measuring 6 weeks, 3 days. No cardiac cavity was identified. This is discussed with the patient. Her significant other is now at bedside as well. He reports that patient had a similar ultrasound finding last week in the SUPERVISOR FLESHING's office as well as an ultrasound yesterday in the office. He is scheduled for another ultrasound next week. Given his additional history, it sounds like the patient is likely experiencing demise, but did explain that I cannot definitively diagnose that today. She is sent for repeat quantitative hCG in 72 hours and to follow-up with SUPERVISOR FLESHING for definitive diagnosis. Patient was encouraged to [...] medications Follow-up With When Contact Information Ahsan MENDOZA In 3 days 07/18/[address] [place] [address]- Business (1) Additional Instructions: Patient Education Abdominal Pain During Attestation Patient seen and evaluated by the physician family practice physician assistant. Attending physician was present in the emergency department and supervised care. This visit was performed by both the physician and an APC. I performed all aspects of the MDM as documented. This report was transcribed using voice recognition software. Every effort was made to ensure accuracy, however, inadvertently computerized piano maker mistakes may be present. Appropriate healthcare PPE was used in evaluating this patient. The patient was placed in a mask. The healthcare provider was wearing mask, gloves, and utilizing proper hand hygiene. All equipment was properly cleansed. Problem List/Past Medi (more content not included)...NormalMiami Valley HospitalComment on above:Result Comment: Electronically Signed By: Chapincito José PA-C\.br\Date and Time Signed: 07/15/2316:04 EST\.br\Electronically Co-Signed By: Son Reyes MD\.br\Date and Time Co-Signed: 07/16/23 08:09 Benita Foreman 85-05-4385Tsaiidlmc/100 WBC (Bld)0.2 %Normal0.0-2.0[facility] Comment on above:Order Comment: Order Added by Discern Expert.Performed By: #### [id number], 0679544, 94743911, 9874523, 6248817, 3620315, 3100248 ####[facility] [address] [place], [place] [address]Hpsllwzmj/Leukocytes Auto (Bld) [Pure # fraction]0.0 E9/LNormal0.0-0.2FShelby Memorial Hospital Comment on above:Order Comment: Order Added by Discern Expert.Performed By: #### 4376868, 3933407, 06746646, 3329711, 3236524, 2639941, 6231839 ####[facility] [address] [place] [address]Ajjukossnzh/100 WBC (Bld)0.3 %Normal0.0-8.0[facility] Valley HospitalComment on above:Order Comment: Order Added by Discern Expert.Performed By: #### 1327024, 1801495, 14130298, 9019156, 1975120, 3985643, 8756246 ####[place] [address] [address]Snkrqkyyihk/Leukocytes Auto (Bld) [Pure # fraction]0.0 E9/LNormal0.0-0.5FShelby Memorial HospitalComment on above:Order Comment: Order Added by Discern Expert.Performed By: #### 7881775, 1648748, 30230001, 0288697, 1754742, 4945471, 5580259 ####[address] [address]Kpvmaxgxkhe/100 WBC (Bld)4.1 % Low14.0-50.0Mi[facility] Valley HospitalComment on above:Order Comment: Order Added by Discern Expert.Performed By: #### 8338717, 3946179, 48657047, 0826264, 9387541, 0624135, 0242635 ####[place] [address] [address]Bktdbewmbyf/Leukocytes Auto (Bld) [Pure # fraction]0.3 E9/L Low1.0-4.0[facility] Valley HospitalComment on above:Order Comment: Order Added by Discern Expert.Performed By: #### 5196752, 7422643, 34072994, 9516063, 8890009, 6251765, 1269646 ####[place] [address] [address]Fxvsskgop/100 WBC (Bld)5.3 %Normal4.0-14.0[facility] Valley HospitalComment on above:Order Comment: Order Added by Discern Expert. Performed By: #### 3020717, 1638684, 11096117, 9930798, 9764774, 8260800, 0538992 ####[place] [address] [place], [place] [address]Gilzkkntb/Leukocytes Auto (Bld) [Pure # fraction]0.3 E9/LNormal0.2-1.0 [facility] HospitalComment on above:Order Comment: Order Added by Discern Expert.Performed By: #### 5390654, 2443425, 34147654, 2122997, 0174296, 7763150, 2423991 ####[address] [address]Qkdmxbdwvcs/100 WBC (Bld)90.1 %High36.0-75.0[facility] Valley HospitalComment on above:Order Comment: Order Added by Discern Expert. Performed By: #### 9240749, 6037288, 64695687, 7246902, 3050425, 7449807, 2801196 ####[address] [address]Zkwcnravcfb/Leukocytes Auto (Bld) [Pure # fraction]5.6 E9/LNormal2.0-7.5 [facility] HospitalComment on above:Order Comment: Order Added by Discern Expert.Performed By: #### 1454579, 9216340, 98001251, 4174201, 8226149, 4403396, 6119292 ####[address] [address]AUUrr 32-29-1407Mopdc gap [Moles/Vol]12 mmol/LNormal6-16 [facility] HospitalComment on above:Performed By: #### 9638928, 2227930, 38403248, 2493694, 4132032, 0685008, 6710693 ####[place] [address] [place], [place] [address]LEW/Creat Ratio14 No HbnchRgdryk90-98 [facility] HospitalComment on above:Performed By: #### 9784530, 8923752, 38328866, 5020663, 5241881, 8922814, 9255789 ####[address], [place] [address]Qvgijtn [Mass/Vol]9.3 mg/dLNormal 8.9-11.1FShelby Memorial HospitalComment on above:Performed By: #### 5391059, 2335639, 81800927, 7295681, 9837472, 8520511, 3345874 ####[place] [address] [place], [place] [address]Slubhbea [Moles/Vol]102 mmol/L Icywoy064-990KhanquMiami Valley HospitalComment on above:Performed By: #### 7421365, 8875840, 37631493, 2314528, 3163375, 4368430, 5994980 ####[place] [address] [place], [place] [address]LW9 [Moles/Vol]26 mmol/YBfkpmc61-60NwqkflMiami Valley HospitalComment on above:Performed By: #### 6348122, 5101409, 21075015, 5678758, 4230450, 0380453, 6991942 ####[facility] [address] [place] [address]Mutskouvnw [Mass/Vol] 0.5 mg/dLNormal0.5-1.3FShelby Memorial HospitalComment on above:Performed By: #### 2446702, 2844647, 16973560, 4875151, 7056044, 8932356, 2479971 ####[address] [address]Kudabac [Mass/Vol]90 mg/pPDteeyn14-952QxorvxMiami Valley HospitalComment on above: Performed By: #### 1080179, 2841650, 14958154, 4912534, 7791487, 4049617, 1287157 ####[facility] [address] [place], [place] [address]Hzjohctnk [Moles/Vol]3.7 mmol/LNormal3.5-5.3FShelby Memorial Hospital Comment on above:Performed By: #### 9939732, 7075997, 83307597, 3751925, 1362059, 2608897, 1783416 ####[facility] [address] [place], [place] [address]Zgxsxc [Moles/Vol]136 mmol/KRsecfn794-744XddvjrMiami Valley HospitalComment on above:Performed By: #### 0937423, 4982275, 84643619, 7772491, 0050740, 4336685, 3844758 ####[facility] [address] [place], [place] [address]Xwte nitrogen [Mass/Vol]7 mg/dLNormal5-21Mi[facility] Valley HospitalComment on above:Performed By: #### 0422266, 7179385, 08747777, 2446703, 2675628, 8706423, 1920485 ####[facility] [address] [place], [place] [address]BrNN Quanton 39-51-4829[place] [address] mIU/mLHigh1-3FShelby Memorial HospitalComment on above:Result Comment: 'F NON < 1 - 3' ' 0.2 - 1 WEEK = 5 TO 50' ' 1 - 2 WEEKS = 50 - 500' ' 2 - 3 WEEKS = 100 - 5000' ' 3 - 4 WEEKS = 500 - 41771' ' 4 - 5 WEEKS = 1000 - 66531' ' 5 - 6 WEEKS = 77575 - 405348' ' 6 - 8 WEEKS = 69402 - 278419' ' 8 - 12 WEEKS = 56808 - 467550'Performed By: #### 2515579, 9229993, 08080932, 1365566, 8568958, 7032140, 2941550 ####[place] [address] [place], [place] [address]OZE w/ Auto Diffon 07-15-2023 Erythrocyte distribution width (RBC) [Ratio]13.3 %Bquwwp65.9-14.2FShelby Memorial HospitalComment on above:Performed By: #### 4498986, 2185578, 49501836, 5599082, 9986037, 9386819, 6277854 ####[address] [address]Wxhbbolajj (Bld) [Volume fraction]38.1 %Normal 34.0-46.0[facility] HospitalComment on above:Performed By: #### 3861698, 3146485, 98710336, 0985320, 2293092, 5241991, 5861044 ####[address] [address]Cmwstubrah (Bld) [Mass/Vol] 12.9 g/fRYkxsfj23.0-16.0[facility] HospitalComment on above:Performed By: #### 7295095, 5297521, 10430890, 6026195, 6158416, 1049502, 2359346 ####[address] [address]LUE (RBC) [Entitic mass]29.5 dpVhdvsl59.0-34.0[facility] HospitalComment on above:Performed By: #### 4461893, 6206839, 17150714, 5862051, 4944568, 8751775, 2438683 ####[address] [address]KNCU (RBC) [Mass/Vol]33.8 g/lZQawqfh20.4-36.0[facility] Comment on above:Performed By: #### 1817659, 8391872, 68531849, 0207131, 8365479, 0344480, 6811107 ####[address] [address]JSH (RBC) [Entitic vol]87.3 vYVsfjkb50.0-100.0[facility] HospitalComment on above:Performed By: #### 9389750, 0341016, 74164098, 0831579, 3386995, 4550494, 3950093 ####[address] [address]Jxdlxnxa mean volume (Bld) [Entitic vol]8.5 fL Normal6.4-10.8[facility] Valley HospitalComment on above:Performed By: #### 7930810, 1209169, 48205447, 4379347, 3314985, 3724210, 7320715 ####[facility] [address] [place], [place] [address]Tkcwjcpkn (Bld) [#/Vol]153.0 E9/NNvmhgx138.0-500.0[facility] HospitalComment on above: Performed By: #### 7093718, 8522259, 17547508, 8271480, 7930077, 8892652, 1300726 ####[facility] [address] [place], [place] [address]IXM (Bld) [#/Vol]4.4 E12/LNormal4.3-5.9[facility] HospitalComment on above:Performed By: #### 5930525, 5143545, 32361768, 8470296, 1209428, 1846366, 7336761 ####[facility] [address] [place], [place] [address]YTF corrected for nucl RBC Auto (Bld) [#/Vol]6.2 E9/LNormal 4.0-11.0[facility] HospitalComment on above:Performed By: #### 3830900, 3940431, 23214529, 0405953, 7903359, 0072810, 1932015 ####[facility] [address] [place], [place] [address]FADNFXDLBGuplpaz By: SYSTEM SYSTEM on 36-87-3300Kcaxlve [Mass/Vol]4.2 g/dLNormal3.3 - 5.0 gm/dLRemisol Chem Albumin/Globulin [Mass ratio]1.5 {ratio}Normal1.1 - 2.2Remisol ChemAlk Phos56 [iU]/xOksatm62 - 98 Int._Unit/LRemisol ZrnjRZW30 [iU]/dNormal6 - 46 Int._Unit/L Remisol ChemAnion gap [Moles/Vol]12 mmol/LNormal6 - 16 mEq/LRemisol FtavUIC07 [iU]/dNormal5 - 43 Int._Unit/LRemisol ChemBili Direct0.2 mg/dLNormal0.1 - 0.4 mg/dLRemisol ChemBili Indirect1.1 mg/dLHigh0.1 - 0.9 mg/dLRemisol ChemBili Total 1.3 mg/dLHigh0.0 - 1.1 mg/dLRemisol ChemCalcium [Mass/Vol]9.3 mg/dLNormal8.9 - 11.1 mg/dLRemisol ChemChloride [Moles/Vol]102 mmol/WEiprct612 - 111 mmol/L Remisol ChemCO2 [Moles/Vol]26 mmol/QEjxlpe10 - 31 mmol/LRemisol ChemCreatinine [Mass/Vol]0.5 mg/dLNormal0.5 - 1.3 mg/dLRemisol ChemeGFRmL/min/1.73 b4Jcyqoe >=59mL/min/1.73 t7Bnynsal ChemGlobulin (S) [Mass/Vol]2.8 g/dLNormal1.4 - 4.0 gm/dLRemisol ChemGlucose [Mass/Vol]90 mg/xVOlkxqy18 - 199 mg/dLRemisol Chem HCG.beta subunit Ai28332 m[IU]/mLHigh1 - 3 mIU/mLRemisol ChemComment on above: Result Comment: 'F NON < 1 - 3' ' 0.2 - 1 WEEK = 5 TO 50' ' 1 - 2 WEEKS = 50 - 500' ' 2 - 3 WEEKS = 100 - 5000' ' 3 - 4 WEEKS = 500 - 93257' ' 4 - 5 WEEKS = 1000 - 42599' ' 5 - 6 WEEKS = 74688 - 448094' ' 6 - 8 WEEKS = 67915 - 312826' ' 8 - 12 WEEKS = 66283 - 747386'Lipase Lvl13 unit/OMwsrhu52 - 58 unit/L Remisol ChemPotassium [Moles/Vol]3.7 mmol/LNormal3.5 - 5.3 mmol/LRemisol Chem Protein [Mass/Vol]7.0 g/dLNormal6.0 - 7.8 gm/dLRemisol ChemSodium [Moles/Vol]136 mmol/EUhkfpt937 - 145 mmol/LRemisol ChemUrea nitrogen [Mass/Vol]7 mg/dLNormal5 - 21 mg/dLRemisol ChemUrea nitrogen/Creatinine [Mass ratio]14 mg/uwRgobkj53 - 20 Remisol ChemConsent for Treatmenton 14-84-2377Abwkmyl for Treatment [id number]#1.00[facility]Dis[facility] Instructionson 92-71-5849Fksqzptoh Instructions [id number]#1.00[facility] Clinical Summaryon [id number] Clinical Summary [place] [id number] ED Clinical Summary Person Information Name: MILADIS CHA Julio C Erma/[facility] Age: 27 Years : 1995 Sex: Female Language: Iranian PCP: Thania OWENS DO, FAAFP Marital Status: Single Visit [...] 07/15/2023 14:26:59 07/15/2023 14:26:59 07/15/2023 14:26:59 ADDRESS: [address] [place] [address] [id number] [facility] DOC NOTES: MEDICAL INFORMATION: Prescriptions Given: Medications to Continue with No Changes Other Medications ergocalciferol (Vitamin D 50,000 intl units (1.25 mg) oral capsule) 1 Capsules By Mouth every week.Refills: 11. ethinyl estradiol-norethindrone (Lo Loestrin Fe oral [...] During Follow up: With: Address: When: Ahsan MENDOZA Formerly [facility], [address] [place] [address] [place] [address] Coiney (1) In 3 days 07/18/2023 DIAGNOSIS: Abdominal pain in ; Unspecified abdominal painNormalFisher Jhonatan Medical CenterED Patient Education Noteon 34-81-1286NC Patient Education Note Obstetrics and Gynecology Abdominal Pain During Abdominal pain is common during and has many possible causes. Some causes are more serious than others, and sometimes the cause is not known. Abdominal pain can be a sign that labor is starting. It can also be caused by normal growth of yourbaby causing stretching of muscles and ligaments during . Always tell your health care provider if you have any abdominal pain. Follow these instructions at home: ? Do not have sex or put anything in your vagina until your pain goes away completely. ? Get plenty of rest until your pain improves. ? Drink enough fluid to keep your urine pale yellow. ? Take apny-aek-dwhqgzl and prescription medicines only as told by [...] provider's home care instructions and keep all follow- up visits as told. This information is not intended to replace advice given to you by your health care provider. Make sure you discuss any questions you have with your health care provider. Document Revised: 04/01/2021 Document Reviewed: 04/01/2021 Elsevier Patient Education ? 2022 [employer] ED Patient Summaryon 89-17-5024VU Patient Summary [address] [address] Patient Discharge Instructions Person Information Name: MILADIS CHA Age: 27 Years Arrival Date: 07/15/2023 08:25:24 Discharge Diagnosis: Abdominal pain in ; Unspecified abdominal pain Primary Care Physician: Thania OWENS DO, FAAFP Provider Information Primary Provider: Son Reyes MD Advanced Cinder Pit Crane Operator:Chapincito José PA-C The exam and treatment you received in the Emergency Department were for an urgent problem and are not intended as complete care. It is important that you follow up with a doctor, nurse practitioner,or physician?s family practice physician assistant for ongoing care. If your symptoms become worse or you do not improve as expected and you are unable to reach your usual health care provider, you should return to the Emergency Department. We are available 24 hours a day. MILADIS CHA has been given the following list of patient education materials, prescriptions and follow-up instructions: Follow-up Instructions: With: Address: When: Ahsan MENDOZA [facility], [address] [place] [address] [place] [address] Business (1) In 3 days 07/18/2023 In the event that this physician does not participate in your insurance network, please consult with your insurance company to find a nearby participating provider. Patient Education Materials: Abdominal Pain During A MESSAGE TO ALL PATIENTS REGARDING OPIOIDS PRESCRIPTION OPIOIDS: WHAT YOU NEED TO KNOW Prescription opioids can be used to help relieve wtjrcefj-vc-fimtuh pain and are often prescribed following a [...] and have fewer risks and side effects. Optionsmay include: ? Pain relievers such as acetaminophen, [...] unused prescription opioids: Find your community drug take- back program or yourpharmacy mail-back program, or flush them down the toilet, following guidance from the Food and Drug Administration (www.fda.gov/Drugs/ResourcesForYou). ? Visit www.cdc.gov/drugoverdose to learn about the risks of opioids abuse and overdose. ? If you believe you may be struggling with addiction, tell your health student career development specialist and ask for guidanc (more content not included)...[facility] CampusHEMATOLOGYOrdered By: [employer] SYSTEM on 07-15-2023 Basophils/100 WBC (Bld)0.2 %Normal0.0 - 2.0 %[facility] HemeAutoSSBasophils/Leukocytes Auto (Bld) [Pure # fraction]0.0 E9/LNormal0.0 - 0.2 E9/LFTMC HemeAutoSS Eosinophils/100 WBC (Bld)0.3 %Normal0.0 - 8.0 %[facility] HemeAutoSS Eosinophils/Leukocytes Auto (Bld) [Pure # fraction]0.0 E9/LNormal0.0 - 0.5 E9/L [facility] HemeAutoSSLymphocytes/100 WBC (Bld)4.1 %Low14.0 - 50.0 %[facility] HemeAutoSS Lymphocytes/Leukocytes Auto (Bld) [Pure # fraction]0.3 E9/LLow1.0 - 4.0 E9/LFTMC HemeAutoSSMonocytes/100 WBC (Bld)5.3 %Normal4.0 - 14.0 %[facility] HemeAutoSS Monocytes/Leukocytes Auto (Bld) [Pure # fraction]0.3 E9/LNormal0.2 - 1.0 E9/L [facility] HemeAutoSSNeutrophils/100 WBC (Bld)90.1 %High36.0 - 75.0 %[facility] HemeAutoSS Neutrophils/Leukocytes Auto (Bld) [Pure # fraction]5.6 E9/LNormal2.0 - 7.5 E9/L [facility] HemeAutoSSHEMATOLOGYOrdered By: Faheem Montilla on 81-98-4084Ladkbvmxujr distribution width (RBC) [Ratio]13.3 %Osmuxa52.9 - 14.2 %FT HemeAutoSS Hematocrit (Bld) [Volume fraction]38.1 %Tuwtut07.0 - 46.0 %FT HemeAutoSS Hemoglobin (Bld) [Mass/Vol]12.9 g/rYLtgnkh80.0 - 16.0 gm/dLFTMC HemeAutoSSMCH (RBC) [Entitic mass]29.5 ndJmhvxo30.0 - 34.0 pgFTMC HemeAutoSSMCHC (RBC) [Mass/Vol]33.8 g/dPTrxhos74.4 - 36.0 gm/dLFTMC HemeAutoSSMCV (RBC) [Entitic vol] 87.3 sAJygttq86.0 - 100.0 fLFTMC HemeAutoSSPlatelet mean volume (Bld) [Entitic vol]8.5 fLNormal6.4 - 10.8 fLFTMC HemeAutoSSPlatelets (Bld) [#/Vol]153.0 E9/L Onypsu692.0 - 500.0 E9/LFC HemeAutoSSRBC (Bld) [#/Vol]4.4 E12/LNormal4.3 - 5.9 E12/LFC HemeAutoSSWBC corrected for nucl RBC Auto (Bld) [#/Vol]6.2 E9/LNormal 4.0 - 11.0 E9/LFC HemeAutoSSHep Func Panelon 32-99-1436Oxiqnwt [Mass/Vol]4.2 g/dLNormal3.3-5.0On License Of [facility] Centerer [facility] CenterComment on above:Performed By: #### 3864558, 7969374, 15272188, 2273693, 3532003, 6494678, 3688687 ####[facility] [address] [place], [place] [address]Gsjlzra/Globulin [Mass ratio]1.5 {ratio}Normal1.1-2.2Fisher [facility] CenterComment on above: Performed By: #### 7572654, 3367215, 22340568, 3045303, 0940939, 4269547, 8288091 ####[facility] [address] [place], [place] [address]Ohy Phos56 Int._Unit/ZPuuidd73-60UniijiMiami Valley HospitalComment on above:Performed By: #### 4183136, 8379541, 41513829, 8499961, 0657756, 4590117, 6728863 ####[facility] [address] [place], [place] [address]ENF60 Int._Unit/LNormal6-46[facility] HospitalComment on above: Performed By: #### 5058162, 3219861, 92493345, 2302911, 7574767, 7253545, 2123081 ####[facility] [address] [place], [place] [address]LZM44 Int._Unit/LNormal5-43[facility] HospitalComment on above: Performed By: #### 0928629, 0098826, 93049372, 9968915, 6570397, 7612442, 3310401 ####[place] [address] [place], [place] [address]Tusa Direct0.2 mg/dLNormal0.1-0.4Fisher [facility] CenterComment on above:Performed By: #### 1411303, 5331443, 10062337, 8944150, 1932267, 7823098, 9023442 ####[facility] [address] [place], [place] [address]Odso Indirect1.1 mg/dLHigh0.1-0.9[facility] HospitalComment on above:Performed By: #### 5814168, 4556426, 53317766, 7963975, 7084698, 7766161, 9055910 ####[facility] [address] [place], [place] [address]Mpmx Total1.3 mg/dLHigh0.0-1.1Fisher [facility] CenterComment on above: Performed By: #### 5203572, 5345835, 60836792, 7555189, 2426764, 3494574, 3574882 ####[facility] [address] [place] [address]Rsgwosit (S) [Mass/Vol]2.8 g/dLNormal1.4-4.0[facility] Comment on above:Performed By: #### 1314621, 3027387, 79427041, 7492151, 4335574, 5822453, 0153288 ####[facility] [address] [place], [place] [address]Cwodgvr [Mass/Vol]7.0 g/dLNormal6.0-7.8[facility] HospitalComment on above:Performed By: #### 2380045, 1828608, 51953349, 6946341, 1366397, 0132707, 8879494 ####[facility] [address] [place], [place] [address]Lasxlg Levelon 02-73-7674Mvtawz Lvl13 unit/HNcerll32-18 [facility] HospitalComment on above:Performed By: #### 1982198, 9740372, 27918462, 0395542, 2884397, 3132679, 2547104 ####[facility] [address] [place], [place] [address]Uanwhcbbv Orderon 02-65-4419Fookucujt [id number]#1.00TIFFOhioHealth Mansfield HospitalEROLOGYOrdered By: Emilee David on 23-85-7440TXO.beta subunit (U) [Moles/Vol]Positive (07/15/23 8:38 AM)[facility] Man SeroU BetaHcg Qualon 05-96-6098LYB.beta subunit (U) [Moles/Vol]PositiveSt. Mary's Medical Center, Ironton CampusComment on above: Performed By: #### [id number] #### [facility] [address] [place], [place] [address]BE With Cult Reflexon 02-26-3552Qlyxhaip LM Ql (Urine sed)TRACE NormalTraceMiami Valley HospitalComment on above:Performed By: #### 1565829 #### [facility] [address] [place] [address]Uhsfqohhu Ql (U)NegativeNormalNegativeMiami Valley HospitalComment on above:Performed By: #### 8517561 #### [facility] [address] [place] [address]Qcirynh (U)CLEARNormalClearOn License Of [facility] Centerer [facility] CenterComment on above:Performed By: #### 6359183 #### [facility] [address] [place] [address]Ykaut (U)YELLOWNormalYellowMiami Valley HospitalComment on above:Performed By: #### 0575014 #### [facility] [address] [place] [address]Rrcebjhhle cells.squamous LM.HPF (Urine sed) [#/Area]0-2Normal 0-2Fisher [facility] CenterComment on above:Performed By: #### 7936279 #### [facility] [address] [place] [address]Svnkivs Test strip (U) [Mass/Vol]NegativeNormalNegativeMiami Valley HospitalComment on above:Performed By: #### 7257207 #### [facility] [address] [place] [address]Wguiprqjqx Ql (U)NegativeNormalNegativeMiami Valley HospitalComment on above:Performed By: #### 1805292 #### [facility] [address] [place] [address]Tmxtyer (U) [Mass/Vol]1+AbnormalNegativeMiami Valley HospitalComment on above:Performed By: #### 1850127 #### [facility] [address] [place] [address]Gnipefx.plasma/Ponshewaing.RBC (Bld) [Mass ratio]9-7Bsajoy0-7Bwiilc [facility] CenterComment on above:Performed By: #### 4343620 #### [facility] [address] [place] [address]Bgbjt Ql (Urine sed)TRACENormalFisher [facility]honatan Medical Center Comment on above:Performed By: #### 3637263 #### [facility] [address] [place] [address]Fcxvcuj Ql (U)[facility] Comment on above:Performed By: #### 6455087 #### [facility] [address] [place] [address] 88281kY (U)7.0 [pH]Invalid Interpretation Code5.0-9.0[facility] HospitalComment on above:Performed By: #### 8416713 #### [facility] [address] [place] [address]Kmpxbil (U) [Mass/Vol]NegativeNormalCleveland Clinic Medina HospitalComment on above:Performed By: #### 2922365 #### [facility] [address] [place] [address] 07[address]Ikmddrxs gravity (U) [Rel density]1.020Invalid Interpretation Code1.005-1.030[facility] HospitalComment on above:Performed By: #### 7550087 #### [facility] [address] [place] [address]Gbly of Urine collection methodClean CatchSt. Mary's Medical Center, [facility]ont[facility] CampusComment on above:Performed By: #### 9821795 #### [facility] [address] [place] [address]Trumysprvtvi Qn (U)0.2 {Lorie'U}/dLNormal0.0-1.0[facility] HospitalComment on above:Performed By: #### 4109953 #### [facility] [address] [place] [address]KEC Auto Ql (U)TRACEAbnoUniversity Hospitals Health System Comment on above:Performed By: #### 5896902 #### [facility] [address] [place] [address] 409[address]BHH LM.HPF (Urine sed) [#/Area]6-1Zwqach4-5Bpelde [facility] CenterComment on above:Performed By: #### 7638118 #### [facility] [address] [place], [place] [address]NMCVWEOOEKJeelynm By: Emilee David on 02-92-5741Lepwrzyv LM Ql (Urine sed)Trace /HPFNormalTrace/HPFFTMC UA Auto SSBilirubin Ql (U)Negative (07/15/23 8:39 AM)NormalNegativeDRUMRIGHT REGION[facility] UA Auto SSClarity (U)Clear (07/15/23 8:39 AM)NormalClearFTM UA Auto SSColor (U)Yellow (07/15/23 8:39 AM)NormalYellowDRUMRIGHT REGIONAL HOSPITAL – [facility] UA Auto SSEpithelial cells.squamous LM.HPF (Urine sed) [#/Area]0-2 /HPFNormal0-2/HPFFTMC UA Auto SSGlucose Test strip (U) [Mass/Vol]Negative (07/15/23 8:39 AM)NormalNegativeDRUMRIGHT REGIONAL [facility]OS[facility] UA Auto SSHemoglobin Ql (U)Negative (07/15/23 8:39 AM)NormalNegativeDRUMRIGHT REGIONAL HOSPITAL [facility] UA Auto SSKetones (U) [Mass/Vol]1+ *ABN* (07/15/23 8:39 AM)Invalid Interpretation CodeNegativeDRUMRIGHT REGIONAL HOSPITAL [facility] UA Auto SS Ponshewaing.plasma/Ponshewaing.RBC (Bld) [Mass ratio]0-3 /HPFNormal0-3/HPFFT UA Auto SSMucus Ql (Urine sed)Trace (07/15/23 8:39 AM)NormalDRUMRIGHT REGIONAL HOSPITAL [facility] UA Auto SSNitrite Ql (U)Negative (07/15/23 8:39 AM)NormalNegativeDRUMRIGHT REGIONAL HOSPITAL [facility] UA Auto SSpH (U)7.0 *NA* (07/15/23 8:39 AM)Invalid Interpretation Code5.0 - 9.0DR[facility] UA Auto SSProtein (U) [Mass/Vol]Negative (07/15/23 8:39 AM)NormalNegativeDRUMRIGHT REGIONAL [facility]OS[facility]ITAL [facility] UA Auto SSSpecific gravity (U) [Rel density]1.020 *NA* (07/15/23 8:39 AM)Invalid Interpretation Code1.005 - 1.030[facility] UA Auto SSUA Spec DescClean Catch (07/15/23 8:39 AM)NormalDRUMRIGHT REGIONAL HOSPITAL – [facility] UA Auto SSUrobilinogen Qn (U)0.5518379 {Lorie'U}/dLNormal0.0 - 1.0 EU/dLDRUMRIGHT REGIONAL HOSPITAL – [facility] UA Auto SSWBC Auto Ql (U)Trace *ABN* (07/15/23 8:39 AM)Invalid Interpretation CodeNegativeDRUMRIGHT REGIONAL HOSPITAL [facility] UA Auto SSWBC LM.HPF (Urine sed) [#/Area]0-5 /HPFNormal0-5/HPFDRUMRIGHT REGIONAL HOSPITAL – [facility] UA Auto SSUS 1st Trimesteron 17-26-5518YG 1st TrimesterExam Date/Time: 07/15/2023 11:52 EST Reason for Exam: [...] corresponding gestational age +/- 1 week are: [place] Rump Length: 0.5 cm Composite Ultrasound Age: [...] Para 1 Transabdominal Ultrasound Performed Transvaginal Ultrasound PerformedSt. Mary's Medical Center, Ironton CampusUS Transvaginalon 34-88-3324TO TransvaginalExam Date/Time: 07/15/2023 11:53 EST Reason for Exam: Pain Report IMPRESSION: PLEASE SEE ULTRASOUND REPORT. CLINICAL HISTORY: Pain COMPARISON: NONE. FINDINGS: Ordering Provider: Chapincito José FINAL REPORT Dictated: 07/15/2023 1:30 pm Mariusz Sepulveda MD, V. Signed (Electronic Signature): 07/15/2023 1:30 pm Signed by: Mariusz Sepulveda MD, V. Transcribed by: SEBASTIAN Technologist: LalaisraelMiami Valley HospitaleGFRon 26-54-2254YDE/1.73 sq M.predicted among non-blacks MDRD (S/P/Bld) [Vol rate/Area]mL/min/{1.73_m2}Normal>=59Mi[facility] Valley HospitalComment on above: Order Comment: Order added by Discern Expert.Performed By: #### 9005880, 5501101, 58515144, 4231701, 6539570, 8507326, 8416038 ####[facility] [address] [place], [place] [address]BF OB TRANSVAGINALon 51-12-7[place] [address] Ultrasound Report Signed Patient: MILADIS CHA MR#: [id number] : 1995 Acct:[id number] Age/Sex: 27 / F ADM Date: 07/14/23 Loc: US Attending Dr: Ahsan Mendoza D.O. Ordering Physician: Ahsan Mendoza D.O. Date of Service: 07/14/23 Procedure(s): US OB transvaginal Accession Number(s): [id number] cc: Ahsan Mendoza D.O.; Physician,Non-Staff M.Radha The [address] [address] Patient Name: MILADIS CHA MRN: [id number] date: 1995 Sex: F Assigned Patient Location: US Current Patient Location: US Accession/Order Number: [id number] Exam Date: 07/14/2023 13:25 Report Date: 07/14/2023 15:40 At the request of: AHSAN MENDOZA Procedure: US OB transvaginal EXAMINATION: US [...] 2 days by today's ultrasound (6 weeks 1 day on 07/08/2023). No detectable heartbeat. demise versus early intrauterine . No findings to suggest impending . 2. Tiny echogenic focus along the outer margin of the gestational sac of uncertain etiology. Follow-up recommended. Electronically authenticated by: CELY PLATA Date: 07/14/2023 15:40 Dictated By: Cely Plata M.D. Signed By: 07/14/23 154 DD/ 39 TD/TT: Fixed Route Bus Operator:JOSÉHRadiology, Radiologist, MD - 10/06/2023 [place] [address] Ultrasound Report Signed Patient: MILADIS CHA MR#: [id number] : 1995 Acct:[id number] Age/Sex: 27 / F ADM Date: 07/14/23 Loc: US Attending Dr: Ahsan Mendoza D.O. Ordering Physician: Ahsan Mendoza D.O. Date of Service: 07/14/23 Procedure(s): US OB transvaginal Accession Number(s): [id number] cc: Ahsan Mendoza D.O.; Physician,Non-Staff M.Radha The [address] [address] Patient Name: MILADIS CHA MRN: [id number] date: 1995 Sex: F Assigned Patient Location: US Current Patient Location: US Accession/Order Number: [id number] Exam Date: 07/14/2023 13:25 Report Date: 07/14/2023 15:40 At the request of: AHSAN MENDOZA Procedure: US OB transvaginal EXAMINATION: US [...] 2 days by today's ultrasound (6 weeks 1 day on 07/08/2023). No detectable heartbeat. demise versus early intrauterine . No findings to suggest impending . 2. Tiny echogenic focus along the outer margin of the gestational sac of uncertain etiology. Follow-up recommended. Electronically authenticated by: CELY PLATA Date: 07/14/2023 15:40 Dictated By: Cely Plata M.D. Signed By: 07/14/23 1543 DD/ 1540 TD/TT: Fixed Route Bus Operator: GEETA HealthcareRadiology Study observation (narrative)GEETA LunaUS OB TRANSVAGINALOrdered By: Radiologist Radiology on 81-96-7675YJTG Healthcare Work Phone: US OB TRANSVAGINALon [phone] [address] Ultrasound Report Signed Patient: MILADIS CHA MR#: [id number] : 1995 Acct:[id number] Age/Sex: 27 / F ADM Date: 07/08/23 Loc: US Attending Dr: Ahsan Mendoza D.O. Ordering Physician: Ahsan Mendoza D.O. Date of Service: 07/08/23 Procedure(s): US OB transvaginal Accession Number(s): [id number] cc: Ahsan Mendoza D.O.; Physician,Non-Staff [place] The [address] [address] Patient Name: MILAIDS CHA MRN: [facility]:[id number] date: 1995 Sex: F Assigned Patient Location: US Current Patient Location: US Accession/Order Number: [id number] Exam Date: 07/08/2023 12:20 Report Date: 07/08/2023 13:47 At the request of: AHSAN MENDOZA Procedure: US OB transvaginal EXAMINATION: US OB transvaginal HISTORY: MISSED MENSES COMPARISON: No relevant comparison available. FINDINGS: Rich intrauterine gestation Gestational sac: 3.54 cm, 8 weeks 5 days CRL: 4.6 mm, 6 weeks 1 day, Yolk sac: 5.6 mm Heart rate: Not observed The cervix is closed measuring 4.6 cm The uterus is normal, anteverted, anteflexed The ovaries are normal. Clinical age: 12 weeks 6 days Clinical HOMER: 01/14/2024 Ultrasound age: 6 weeks 1 day Ultrasound HOMER: 03/01/2024 US/US OB transvaginal IMPRESSION: Suspected early intrauterine gestation. 2 possible yolk sacs. No cardiac activity is observed Follow-up evaluation recommended Electronically authenticated by: LALITO VILLAGOMEZ Date: 07/08/2023 13:47 Dictated By: Lalito Villagomez M.D. Signed By: 07/08/23 1349 DD/ 1347 TD/TT: Fixed Route Bus Operator:TIAadiologmacario, Radiologist, - 07/08/[address] [address] Ultrasound Report Signed Patient: MILADIS CHA MR#: [id number] : 1995 Acct:[id number] Age/Sex: 27 / F ADM Date: 07/08/23 Loc: US Attending Dr: Ahsan Mendoza D.O. Ordering Physician: Ahsan Mendoza D.O. Date of Service: 07/08/23 Procedure(s): US OB transvaginal Accession Number(s): [id number] cc: Ahsan Mendoza D.O.; Physician,Non-Staff [place] [id number] Patient Name: MILADIS CHA MRN: [id number] date: 1995 Sex: F Assigned Patient Location: US Current Patient Location: US Accession/Order Number: [id number] Exam Date: 07/08/2023 12:20 Report Date: 07/08/2023 13:47 At the request of: AHSAN MENDOZA Procedure: US OB transvaginal EXAMINATION: US OB transvaginal HISTORY: MISSED MENSES COMPARISON: No relevant comparison available. FINDINGS: Rich intrauterine gestation Gestational sac: 3.54 cm, 8 weeks 5 days CRL: 4.6 mm, 6 weeks 1 day, Yolk sac: 5.6 mm Heart rate: Not observed The cervix is closed measuring 4.6 cm The uterus is normal, anteverted, anteflexed The ovaries are normal. Clinical age: 12 weeks 6 days Clinical HOMER: 01/14/2024 Ultrasound age: 6 weeks 1 day Ultrasound HOMER: 03/01/2024 US/US OB transvaginal IMPRESSION: Suspected early intrauterine gestation. 2 possible yolk sacs. No cardiac activity is observed Follow-up evaluation recommended Electronically authenticated by: LALITO VILLAGOMEZ Date: 07/08/2023 13:47 Dictated By: Lalito Villagomez M.D. Signed By: 07/08/23 1349 DD/ 1347 TD/TT: Fixed Route Bus Operator: GEETA HealthcareRadiology Study observation (narrative)GEETA LunaUS OB TRANSVAGINALOrdered By: Radiologist Radiology on 65-41-9871KKMJ Healthcare Work Phone: cNPNon [phone] (GENSF) MILADIS CHA ([id number]) 1995 F Date Time Provider Department 10/12/22 BELLA BARRERA During your visit today, we recorded the following information about you: Bella Barrera RN 10/12/2022 1:45 PM Signed Attempted to reach patient re: appointment. No answer. Message left with callback number. Bella Barrera RN Allergies As of Date: 10/12/2022 (Not on File) Date Reviewed: 08/25/2022 Reviewed by: Miladis Butler DO - Fully Assessed Reason for Visit: Appointment [186] Problem List As Of Date: 10/12/2022 (None) Encounter Status:Closed by BELLA BARRERA on 10/14/22[facility] DI[facility] W LAINA BILon 39-05-8200WBV DIAG W LAINA KAYA* * *Final Report* * * DATE OF EXAM: Oct 07 2022 11:40AM MCW 0627 - [facility] DIAG W LAINA KAYA / PROCEDURE REASON: multiple diagnoses * * * * Physician Interpretation * * * * RESULT: #[id number] - [facility] W LAINA KAYA #[id number] - [facility] BREAST [facility] RT BILATERAL DIGITAL DIAGNOSTIC MAMMOGRAM TOMOSYNTHESIS WITH [...] exam dated: 10/07/2022 breast MRI - [facility]. The tissue of both [...] exam dated: 10/07/2022 breast MRI - [facility]. Color flow and real-time [...] normal fibroglandular tissue. Follow-up with ACR/NCCN guidelines. Donita burnett/jenny:10/07/2022 12:01:11 Multiple national specialty organizations have released breast cancer screening guidelines for women at average risk for developing breast cancer - guidelines that are based on both evidence and opinion, yet differ on when to start and how often to screen for breast cancer. With representation from Breast Imaging, Internal Medicine, Women's Health, Family Medicine, and Medical/Surgical Oncology, the [facility] [place] [facility] has carefully reviewed the data and [...] their providers when to stop screening mammograms. Senior Director Finance(s): Caro Mcrae RT(R)(M), [facility] Breast [place] OVERALL STUDY BIRADS: 2 Benign finding Fixed Route Bus Operator: Jenny Transcribe Date/Time: Oct 07 2022 11:47A Dictated by : DONITA BOONE MD This examination was interpreted and the report reviewed and electronically signed by: DONITA BOONE MD on Oct 07 2022 12:01PM EST [id number] Valley Hospital DIAG W LAINA BILATon 94-17-8038Zqnywzgic ClinicMAM US BREAST LTD RTon 41-93-2240HWS US BREAST [facility] RT* * *Final Report* * * DATE OF EXAM: Oct 07 2022 11:59AM MCW 0594 - [facility] US BREAST [facility] RT / PROCEDURE REASON: multiple diagnoses * * * * Physician Interpretation * * * * RESULT: #[id number] - [place] DIAG W LAINA KAYA #[id number] - [facility] BREAST [facility] RT BILATERAL DIGITAL DIAGNOSTIC MAMMOGRAM TOMOSYNTHESIS WITH [...] exam dated: 10/07/2022 breast MRI - [facility] Breast [place]. The tissue of both breasts is extremely [...] exam dated: 10/07/2022 breast MRI - [facility] Color flow and real-time ultrasound of the [...] normal fibroglandular tissue. Follow-up with ACR/NCCN guidelines. Donita burnett/jenny:10/07/2022 12:01:11 Multiple national specialty organizations have released breast cancer screening guidelines for women at average risk for developing breast cancer - guidelines that are based on both evidence and opinion, yet differ on when to start and how often to screen for breast cancer. With representation from Breast Imaging, Internal Medicine, Women's Health, Family Medicine, and Medical/Surgical Oncology, the [facility] [place] [facility] has carefully reviewed the data and [...] their providers when to stop screening mammograms. Senior Director Finance(s): Caro Mcrae RT(R)(M), [facility] OVERALL STUDY BIRADS: 2 Benign finding Fixed Route Bus Operator: Jenny Transcribe Date/Time: Oct 07 2022 11:47A Dictated by : DONITA BOONE MD This examination was interpreted and the report reviewed and electronically signed by: DONITA BOONE MD on Oct 07 2022 12:01PM EST [id number] Health SystemMRI BREAST WO/W IVCON KAYA on 56-99-8178IFQ BREAST WO/W IVCON KAYA* * *Final Report* * * DATE OF EXAM: Oct 07 2022 8:25AM ABM 0773 - MRI BREAST WO/W IVCON KAYA / PROCEDURE REASON: multiple diagnoses * * * * Physician Interpretation * * * * #[id number] - MRI BREAST WO/W IVCON KAYA BREAST [...] either breast. Follow-up with ACR/NCCN guidelines. Norma silver/jenny:10/07/2022 08:48:25 Senior Director Finance(s): RT Emma(R), [facility] MRI BI-RADS: 2 Benign finding Multiple national specialty organizations have released breast cancer screening guidelines for women at average risk for developing breast cancer - guidelines that are based on both evidence and opinion, yet differ on when to start and how often to screen for breast cancer. With representation from Breast Imaging, Internal Medicine, Women's Health, Family Medicine, and Medical/Surgical Oncology, the [facility] [place] [facility] has carefully reviewed the data and [...] their providers when to stop screening mammograms. Fixed Route Bus Operator: Jenny Transcribe Date/Time: Oct 07 2022 8:12A Dictated by : NORMA HERNANDEZ MD This examination was interpreted and the report reviewed and electronically signed by: NORMA HERNANDEZ MD on Oct 07 2022 8:48AM EST [id number]_IDCSIACNNormalJ.W. Ruby [facility] BREAST WO/W IVCON BILATon 78-30-7057Rsxhbfvkz ClinicUS BREAST LTD RTon 13-05-1750Txfebrhmf Clinic CHEMISTRYOrdered By: SYSTEM SYSTEM on 01-73-5205Uhjjfkq [Mass/Vol]3.9 g/dLNormal 3.3 - 5.0 gm/dLFTMC RemisolAlbumin/Globulin [Mass ratio]1.2 {ratio}Normal1.1 - 2.2[facility] RemisolALP [Catalytic activity/Vol]60 [iU]/gQldbht20 - 98 Int._Unit/L [facility] RemisolALT No additional P-5'-P [Catalytic activity/Vol]14 [iU]/dNormal6 - 46 Int._Unit/LFTMC RemisolAnion gap [Moles/Vol]13 mmol/LNormal6 - 16 mEq/LFTMC RemisolAST [Catalytic activity/Vol]16 [iU]/dNormal5 - 43 Int._Unit/LFTMC Remisol Bilirubin [Mass/Vol]1.0 mg/dLNormal0.0 - 1.1 mg/dLFTMC RemisolBilirubin.direct [Mass/Vol]0.2 mg/dLNormal0.1 - 0.4 mg/dLFTMC RemisolBilirubin.indirect [Mass or moles/Vol]0.8 mg/dLNormal0.1 - 0.9 mg/dLFTMC RemisolCalcium [Mass/Vol]9.0 mg/dL Normal8.9 - 11.1 mg/dLFTMC RemisolChloride [Moles/Vol]104 mmol/IBpfuyw425 - 111 mmol/LFTMC RemisolCO2 [Moles/Vol]26 mmol/WJsabwh13 - 31 mmol/LFTMC Remisol Creatinine [Mass/Vol]0.6 mg/dLNormal0.5 - 1.3 mg/dLFTMC RemisolGFR/1.73 sq M.predicted among blacks MDRD (S/P/Bld) [Vol rate/Area]mL/min/1.73 d1Opzxtk >=59mL/min/1.73 m2FT Chem SGFR/1.73 sq M.predicted among non-blacks MDRD (S/P/Bld) [Vol rate/Area]mL/min/1.73 s8Erbphz>=59mL/min/1.73 m2FT Chem S Globulin (S) [Mass/Vol]3.4 g/dLNormal1.4 - 4.0 gm/dLFTMC RemisolGlucose [Mass/Vol]105 mg/sXZxryuj92 - 199 mg/dLFTMC RemisolLipase [Catalytic activity/Vol]39 U/NQjdcmb40 - 58 unit/LFTMC RemisolPotassium [Moles/Vol]4.1 mmol/LNormal3.5 - 5.3 mmol/LFTMC RemisolProtein [Mass/Vol]7.3 g/dLNormal6.0 - 7.8 gm/dLFTMC RemisolSodium [Moles/Vol]139 mmol/SVynnpv400 - 145 mmol/LFTMC RemisolUrea nitrogen [Mass/Vol]11 mg/dLNormal5 - 21 mg/dLFTMC RemisolUrea nitrogen/Creatinine [Mass ratio]18 mg/xoTkonvl42 - 20FT[facility] RemisolHEMATOLOGY Ordered By: [employer] SYSTEM on 51-21-2726Tesiciima/100 WBC (Bld)0.4 %Normal0.0 - 2.0 %[facility] HemeAutoSSBasophils/Leukocytes Auto (Bld) [Pure # fraction]0.0 E9/L Normal0.0 - 0.2 E9/LFTMC HemeAutoSSEosinophils/100 WBC (Bld)0.7 %Normal0.0 - 8.0 %[facility] HemeAutoSSEosinophils/Leukocytes Auto (Bld) [Pure # fraction]0.0 E9/L Normal0.0 - 0.5 E9/LFTMC HemeAutoSSLymphocytes/100 WBC (Bld)21.1 %Dfqias80.0 - 50.0 %[facility] HemeAutoSSLymphocytes/Leukocytes Auto (Bld) [Pure # fraction]1.4 E9/L Normal1.0 - 4.0 E9/LFTMC HemeAutoSSMonocytes/100 WBC (Bld)4.9 %Normal4.0 - 14.0 %[facility] HemeAutoSSMonocytes/Leukocytes Auto (Bld) [Pure # fraction]0.3 E9/LNormal 0.2 - 1.0 E9/LFTMC HemeAutoSSNeutrophils/100 WBC (Bld)72.9 %Wbvgco76.0 - 75.0 % [facility] HemeAutoSSNeutrophils/Leukocytes Auto (Bld) [Pure # fraction]4.8 E9/LNormal 2.0 - 7.5 E9/LFTMC HemeAutoSSHEMATOLOGYOrdered By: Julia Call on 10-02-2022 Erythrocyte distribution width (RBC) [Ratio]12.7 %Siskas20.9 - 14.2 %[facility] HemeAutoSSHematocrit (Bld) [Volume fraction]41.1 %Itgpjr14.0 - 46.0 %[facility] HemeAutoSSHemoglobin (Bld) [Mass/Vol]13.4 g/oZBhdufu58.0 - 16.0 gm/dLFTMC HemeAutoSSMCH (RBC) [Entitic mass]28.7 kxFlzasx09.0 - 34.0 pgFTMC HemeAutoSSMCHC (RBC) [Mass/Vol]32.5 g/dFOuzxdg90.4 - 36.0 gm/dLFTMC HemeAutoSSMCV (RBC) [Entitic vol]88.3 sGUjrbpd50.0 - 100.0 fLFT HemeAutoSSPlatelet mean volume (Bld) [Entitic vol]8.3 fLNormal6.4 - 10.8 fLFTMC HemeAutoSSPlatelets (Bld) [#/Vol]216.0 E9/XLvvvrw372.0 - 500.0 E9/LFC HemeAutoSSRBC (Bld) [#/Vol]4.6 E12/LNormal4.3 - 5.9 E12/LFC HemeAutoSSWBC corrected for nucl RBC Auto (Bld) [#/Vol]6.5 E9/LNormal4.0 - 11.0 E9/LFC HemeAutoSSSEROLOGYOrdered By: Mariel Stafford on 57-43-6171IOQ.beta subunit (U) [Moles/Vol]NegativeNormalFT Man Sero URINALYSISOrdered By: Maryann Kamara on 43-85-5702Lvqxgsva LM Ql (Urine sed)1+ /HPFInvalid Interpretation CodeTrace/HPFDRUMRIGHT REGIONAL [facility]ITAL [facility] UA Auto SSBilirubin Ql (U)Negative (10/02/22 2:14 PM)NormalNegativeDRUMRIGHT REGIONAL HOSPITAL [facility]UM[facility] UA Auto SSClarity (U)Slightly Cloudy *ABN* (10/02/22 2:14 PM)Invalid Interpretation CodeClearFOKLAHOMA ER & HOSPITAL [facility] UA Auto SSColor (U)Yellow (10/02/22 2:14 PM)NormalYellowFT UA Auto SSCrystals LM Ql (Urine sed)Present (10/02/22 2:14 PM)NormalFT UA Auto SSEpithelial cells.squamous LM.HPF (Urine sed) [#/Area]3-4 /HPFNormal0-2/HPFFT UA Auto SSGlucose Test strip (U) [Mass/Vol]Negative (10/02/22 2:14 PM)NormalNegativeDRUMRIGHT REGIONAL HOSPITAL [facility] [place] UA Auto SSHemoglobin Ql (U)Trace *ABN* (10/02/22 2:14 PM)Invalid Interpretation CodeNegativeDRUMRIGHT REGIONAL HOSPITAL – [place] UA Auto SSKetones (U) [Mass/Vol]Negative (10/02/22 2:14 PM)NormalNegativeDRUMRIGHT REGIONAL HOSPITAL [facility] UA Auto SSLithium.plasma/Ponshewaing.RBC (Bld) [Mass ratio]0-3 /HPFNormal0-3/HPFDRUMRIGHT REGIONAL HOSPITAL – [facility] UA Auto SSNitrite Ql (U)Negative (10/02/22 2:14 PM)NormalNegativeDRUMRIGHT REGIONAL HOSPITAL [facility] [place] UA Auto SSpH (U)8.0 *NA* (10/02/22 2:14 PM)Invalid Interpretation Code5.0 - 9.0DRUMRIGHT [facility]ION[facility] UA Auto SSProtein (U) [Mass/Vol]Negative (10/02/22 2:14 PM)NormalNegativeDRUMRIGHT REGIONAL HOSPITAL [facility] [place] UA Auto SSSpecific gravity (U) [Rel density] 1.020 *NA* (10/02/22 2:14 PM)Invalid Interpretation Code1.005 - 1.030DR[facility] UA Auto SSUA Spec DescClean Catch (10/02/22 2:14 PM)NormalDRUMRIGHT REGIONAL HOSPITAL – [facility] UA Auto SSUrobilinogen Qn (U)0.3659483 {Lorie'U}/dL Normal0.0 - 1.0 EU/dLDRUMRIGHT REGIONAL HOSPITAL – [place] UA Auto SSWBC Auto Ql (U)Negative (10/02/22 2:14 PM)NormalNegativeDRUMRIGHT REGIONAL HOSPITAL [facility] [place] UA Auto SSWBC LM.HPF (Urine sed) [#/Area]0-5 /HPFNormal0-5/HPFDRUMRIGHT REGIONAL HOSPITAL – [facility] UA Auto SSCNOVon 06-20-2722OZHLMaodyp Visit (GENSF) MILADIS CHA ([id number]) 1995 F Date Time Provider Department 08/25/22 2:00 PM KOPICKY, MILADIS GENSF During your visit today, we recorded the following information about you: Weight Height 64.9 kg 1.6 m Miladis Butler, 08/25/2022 4:56 PM Signed NEW BREAST CONSULTATION SERVICE DATE: 08/24/2022 Consultation requested by Marie So for an opinion regarding Miladis Cha. REASON FOR TODAY'S VISIT: Patient presents with: Breast Problem HISTORY AND CHIEF COMPLAINT: Miladis Cha is a 26 year old female who presents with her boyfriend Jose Luis to the [facility] for an opinion regarding [...] had genetic testing, is currently age 51. Miladis edmondson BREAST HISTORY Her past breast history [...] previous pathology report unavailable (2020) IMPRESSION : Miladis Cha is a 26 year old female with a right Nipple Dischar (more content not included)...NormalFairview HospitalReference Laboratory Testing Ordered By: [facility] DomainUser on 03-59-0520NCFQ-CoV-2 (COVID-19) RNA MIAH+probe Ql (Resp)Not detectedInvalid Interpretation CodeNot DetectedDRUMRIGHT REGIONAL HOSPITAL [facility]UM[facility] SendOutsSSComment on above:Result Comment: This nucleic acid amplification test was developed and its performance characteristics determined by [employer]. Nucleic acid amplification tests include RT-PCR and [...] detected) result in this assay. Performed at: [address] [id number] PhD Jean-Pierre Arreola VERIFICATIONon 21-78-9182EJA and Rh group Nom (Bld)ABO/Rh VerificationOhioHealthComment on above:Patient's ABO/Rh is verified.ABO and Rh group Nom (Bld)O PositiveOhioHealthOtheron 09-26-2020 Interpretation and review of laboratory resultsNormalOhioHealthPOC Glucoseon 64-40-8699Redroym [Mass/Vol]79 mg/dL65 - 99 mg/dLOhioHealthPOC , Urine on 87-98-9224Pcvo HCG ( test) Ql (U)Dilute urine specimens, as indicated by a low specific gravity (<1.010) may not contain textile designs sales representative levels of hCG. If is still suspected, a serum test or repeat urine test using a first morning urine specimen should be considered. OhioHealthHCG ( test) Ql (U)NegativeNegativeOhioHealthSCAN OTHER ORDERS on 28-95-3837Ztwguzv by an unspecified provider. OhioHealthType and Screenon 62-82-4496VFF and Rh group Nom (Bld)O Positive OhioHealthBlood group antibody screen QlNegativeOhioHealthSpecimen Expires 09/29/2020 23:59 ESTOhioHealthCBC AUTOon 91-01-4800Ozyrppfsqxb distribution width Auto Ratio (RBC)12.2 %Xkefbo65.5-14.5SParsons State Hospital & Training CenterComment on above:Order Comment: [place]: MAINPerformed By: #### LCBC ####[facility] [address] [place], [place] [address]Hehseoypcc Auto Volume Fraction (Bld)43.1 %Tcttcy15.0-48.0[facility] Hospital Of Converse CountyComment on above: Order Comment: [place]: MAINPerformed By: #### LCBC ####[facility] [address] [place] [address]Gtsgwkszmu mass conc (Bld)14.2 g/dLNormal 12.0-15.0[facility] Of Converse CountyComment on above:Order Comment: [place]: MAIN Performed By: #### LCBC ####[facility] [address] [place] [address]TZK Auto Entitic mass (RBC)29.0 ydIljgat55.4-34.6[facility] Comment on above:Order Comment: [place]: MAINPerformed By: #### LCBC ####[facility] W[address] [place] [address]XNXK Auto mass conc (RBC)32.9 g/rHDdigsg09.0-36.0[facility] Of Converse CountyComment on above:Order Comment: [place]: MAINPerformed By: #### LCBC ####[facility] [address]ra[address] [place], [place] [address]VFP Auto Entitic volume (RBC)88.1 aYEzfowh37.0-98.0[facility] Of Converse CountyComment on above:Order Comment: [place]: MAINPerformed By: #### LCBC ####[facility] [address] [place] [address]Vmvnjoad mean volume Auto Entitic volume (Bld)10.0 fLNormal8.4-11.9[facility] Of Converse CountyComment on above:Order Comment: [place]: MAINPerformed By: #### LCBC ####[address] [address]Eltwyixlw Auto #/vol (Bld)183 10*3/nWYvpfda532-188VjywhMemorial Hospital Of Converse CountyComment on above:Order Comment: [place]: MAINPerformed By: #### LCBC ####[address] [address]ZVC Auto #/vol (Bld)4.89 10*6/uLNormal3.5-5.5SParsons State Hospital & Training CenterComment on above:Order Comment: [place]: MAINPerformed By: #### LCBC ####[address] [address]ECM Auto #/vol (Bld)5.9 10*3/uLNormal3.9-11.0Mem[facility] Of Converse CountyComment on above: Order Comment: [place]: MAINPerformed By: #### LCBC ####[address] [address]QNK BETA QUANTITATIVEon 52-94-7525DNZA< 2 Normal<5SParsons State Hospital & Training CenterComment on above:Order Comment: [place]: MAIN Result Comment: Reference Range <4 mIU/mL NEGATIVE 4-25 mIU/mL BORDERLINE >25 mIU/mL POSITIVEComment:Results of this test should always be interpreted inconjunction with the patient's medical history, clinicalpresentation and other findings.Low levels of HCG may beseen in very early (gestationPerformed By: #### LHCGQ ####[place] [id number] and Physical Virgilio 40-55-3486Kxjjexb and Physical PATST. MADISON [facility] Pt Name: MILADIS [id number] [facility] MR # [id number] V[place] [address] : [birth year]* * * * * * * * History and Physical PAT * * * * * * * *Historyof Present IllnessDate of Dqlcdxt50/15/18ource of InformationPatientChief Complaint/Present IllnesE ndometriosisHPIPatient has endometriosis and h/o ovarian cysts. She had a vaginal delivery childbirth 2015 with no complications. Since then, patient c/o occasional but frequent pelvic painwithleft side worse than right. Menses are regular but heavier than usual. Has spottingin between menses. Menses are lasting 7-10 days. LMP 05/31/18.PROBLEM LISTProblem ListMedical ProblemsEndometriosisOvarian cystSurgical ProblemsHx of colonoscopySocial History ProblemsDoes not drink alcoholNo illicitdrug useNon-smokerFamily HistoryMOTHERFH: diabetes mellitusGRANDPARENTFH: diabetes mellitusAllergies/Home MedicationsAllergiesCoded Allergies:SULFAMETHOXAZOLE (From BACTRIM) (06/16/18)TRIMETHOPRIM (From BACTRIM) (06/16/18)Home Meds ReviewedI have reviewed the patient's Home Medication List.Home Medication List may have been reported by sources other than providers caring for thepatient at the time this document was created. Information may not be all inclusive.Reconcile MedicationsNo Known HomeMedicationsLast Action: Reviewed on 06/16/18 @ 0727 by JULIA MCBRIDE of SystemsReview of SystemsConstitutionalNEGATIVE: [...] Stools, Hematemesis, Constipation.GUNEGATIVE: Problems Urinating, Painful Urination, Hematuria.Muscle/LymphPOSITIVE: Back Pain (occasional). NEGATIVE: Extremity Pain, Calf Pain, Leg Pain, NeckPain, Joint Pain, Ankle Swelling, Leg Swelling, Swollen Glands.SkinNEGATIVE: Rash, Lesions.NeuroPOSITIVE: Dizziness (occasional). NEGATIVE: Headache, Fainting,Loss of Sensation,Weakness, Difficulty Walking, Difficulty with Speech.PsychNEGATIVE: Confusion, Anxiety, Depression.Postop Anesthesia ProblemsNonePhysical ExamVital SignsTemp (C)36.2Bbeck04Uattxuqlakur86Hxepj Hbupmzpq284/79Pulse-Ox%98Height - Srwr8Mvbtwp6.00Weight - Ug397Sa-Ji61.580AppearanceGeneral AppearanceWell Developed/Nourished, Alert, Oriented X 3, Cooperative.HEENTHEENTHead Atraumatic, Normocephalic, PERRL, Hearing grossly normal, Mucosa Moist, PatentAirway.CVSCardiovascularRate WNL, Rhythm regular.RespiratoryRespiratoryBilaterally Clear, No Respiratory Distress.NeuroNeuroOriented x 3, Speech Clear, Moves all extremities.Abdomen/GUAbdomenBowel Sounds Present, Abdomen soft, Non-Tender, No distention.MusculoskeletalExtremitySensation Intact, Motor Intact, No tenderness, No Pedal Edema.SkinDermatologicalWarm, Dry.Assessment and Plan (PAT)Assessment and PlanAssessment and Plan22 year old female for laparoscopy with fulguration today 06/16/18CBC and TANDS as ordered per erum [facility] todayReport Date 06/16/18Electronically Signed Esig Date Esig JaciIvon porras OSBALDO-TEMPLER HEAD 06/16/18 0809NormalSParsons State Hospital & Training Center OPERATIVE REPORTon 41-45-9070YDSRHEYJP REPORTName: MILADIS CHA: [id number]: Amanda Martinez M.D.DATE OF SURGERY: 06/16/2018ANESTHESIA: Gen eral endotracheal.1ST OVERWEAVER:PREOP DIAGNOSIS: Pelvic pain.POSTOP DIAGNOSIS: Pelvic pain.OPERATION: Diagnostic [...] of thecervix. Uterine manipulator was placed. My gloveswere changed. 0.5%Marcaine was injected infraumbilically. A 5 mm incision was made. An opticaltrocar was introduced. Pneumoperitoneum was created under directvisualization with transillumination. Theentire pelvis was visualized. Wewere able to visualize the entire uterus, the cul-de-sac, the ovaries, theliver edge. There was no evidence of any endometriosis. The uterosacralligaments were normal in appearance. The pneumoperitoneum was released. Theinstruments were removed from the vagina after the trocar was removed. Thepatient tolerated the procedure. Taurus Parmar/MedPercy/[id number]: 06/16/2018 12:32:38 E/S: Amanda Martinez MD [facility] SEMAJMILADIS [id number] [place] [address] [id number]: Amanda Martinez MDOPERATIVE ZXBPQP55/19/18 1408Electronically Signed [facility] SERVICEMILADIS [id number] [place] [address] [id number]: Amanda Martinez MDOPERATIVE REPORTNormEvanston Regional Hospital - EvanstonPost Anesthesia Evaluationon 93-37-5259Osww Anesthesia EvaluationSt [facility] SEMAJ,LMFSIV47532 [facility] [id number], [place] [address] : 93POST ANESTHESIA EVALUATION NOTEService Date: 06/16/18 1443Post Anesthesia Eval NoteProcedure Date06/16/18Post Anesthesia EvalYES: VS in Normal Range, Respiratory Stable, Airway Patent,Cardiovascular Stable,Hydration Status Stable, Mental Status Recovered, Pt Participate in Eval, Pain Controlled,NANDV Controlled.[facility] AnesthesiaNoAnesthestic ComplicationsNoReport Date 06/16/18Electronically Signed Esig Date Esig Marysol Martins MD 06/16/18 1444NoWyoming Medical Center - CasperTYPE AND SCREENon 95-83-2551PUK and Rh group Nom (Bld)O POSITIVENoWyoming Medical Center - CasperComment on above:Order Comment: [place]: [facility] patient taking DUSTY?Has patient had a transplant? Performed By: #### BTS ####[facility] Mzmqdqfigz[address] [place] [address] Vital Signs Date TimeVital SignValuePerforming NzzdbcvbeYtfjlssh11-64-8250 08:42-0400Body gnkywa07.2 kgCorey Kelly DO Work Phone: [facility]Covmzlablv80-06-5581 08:42-0400Diastolic blood yifvuyxf21 mm[Hg]Ahsan Kelly DO Work Phone: [facility]Ogyfxywmsm25-17-0636 08:42-0400Systolic blood tcmjzkef451 mm[Hg]Ahsan Kelly DO Work Phone: [facility]HealthZxmkjaehvk84-42-9552 12:54-0400Diastolic blood afcjihyw68 mm[Hg]Thania Kaple DO Work Phone: [facility]10-09-2025 12:54-0400 Heart rate87 /minScott Kaple DO Work Phone: [facility]10-09-2025 12:54-0400 Respiratory rate20 /minScott Kaple DO Work Phone: [phone]10-09-2025 12:54-0400 SaO2% (BldA) [Mass fraction]100 %Thania Kaple DO Work Phone: [phone] [place], [place] 3628010-09-2025 12:54-0400 Systolic blood aflfwqsn814 mm[Hg]Thania Kaple DO Work Phone: [phone] [place], [place] 3628010-09-2025 10:16-0400 Body mfegludclrf81.6 [degF]Thania Kaple DO Work Phone: [phone] [place], [place] 5991010-09-2025 07:59-0400 Body .02 cmScochiquis Kaple DO Work Phone: [phone] [place], [place] 5991010-09-2025 07:59-0400 Body eeqbiz05.7 kgScjacqui Owens DO Work Phone: [phone] [place], [place] 3628005-21-2025 10:51-0400 Blood Pressure LocationCaromont Health [phone]-Jrivs[address] [place], [place] 2173805-21-2025 10:51-0400Diastolic blood pfivzupu05 mm[Hg][facility] [phone]-Mncie[address] [place], [place] 2173805-21-2025 10:51-0400Heart rate90 /[facility] [phone]-Oirmv[address] [place], [place] 2173805-21-2025 10:51-0400Respiratory rate16 /minCaromont Health [phone]-Xvdaq[address] [place], [place] 2173805-21-2025 10:51-2793NsP6% (BldA) [Mass fraction]98 %[facility] [phone]-Esetw65 [address] [place], [place] 2173805-21-2025 10:51-0400Systolic blood nriiyngm141 mm[Hg][facility] [phone]-Dkwvx[address] [place], [place] 2173805-14-2025 16:11-0400Hourly RoundJoe Santa [address] [place], [place] [address]Comment on above:Result Comment: DR. ZAHEER HUYNH ZXMPF78-83-9777 16:00-0400Diastolic blood olepvebp74 mm[Hg]Louis Santa [address]05-14-2025 16:00-0400Heart rate84 /Dorcas Santa [address] [place], [place] 4606805-14-2025 16:00-0400Mean blood cyorrrlg89 mm[Hg]Louis Santa [address] [place], [place] 5658605-14-2025 16:00-0400 Respiratory rate16 /Dorcas Santa [address] [place], [place] 5658605-14-2025 16:00-0400 Systolic blood kneyfflx000 mm[Hg]Louis Santa [address]05-14-2025 15:03-0400 Hourly RoundJoe Santa [address]05-14-2025 15:00-9541PlO5% (BldA) [Mass fraction]99 %Louis Santa [address]05-14-2025 15:00-0400 Diastolic blood mm[Hg]Lousi Santa [address] [place], [place] 4606805-14-2025 15:00-0400Heart rate78 /Dorcas Santa [address] [place], [place] 4606805-14-2025 15:00-0400Mean blood tduojlrs48 mm[Hg]Louis Santa [address] [place], [place] 4606805-14-2025 15:00-0400 Systolic blood frszikpf217 mm[Hg]Louis Santa [address] [place], [place] 4606805-14-2025 14:08-0400 Hourly RoundingLouis Santa [address] [place], [place] 4606805-14-2025 14:00-0400Heart rate83 /Dorcas Santa [address] [place], [place] 4606805-14-2025 14:00-8661ErR2% (BldA) [Mass fraction]100 %Louis Santa [address]05-14-2025 14:00-0400 Diastolic blood yyzfvams22 mm[Hg]Louis Santa [address]05-14-2025 14:00-0400Mean blood lvdyarqd16 mm[Hg]Louis Santa [address]05-14-2025 14:00-0400 Systolic blood hwriwmxt979 mm[Hg]Louis Santa [address]05-14-2025 12:14-0400Body wzudjkzlgtz00.42 [degF]Louis Santa [address]05-14-2025 12:14-0400Heart rate95 /Dorcas Santa [address]02-27-2025 12:06-0500Body cmSlauren Ortega MD Work Phone: [phone]zenur54-57-5668 12:06-0500Body mass index (BMI) [Ratio]28.17 kg/c7LftitncqeoDarlin Ortega MD Work Phone: [phone]pkztx49-71-4667 12:06-0500Body bpsokv15.12 kg Darlin Ortega MD Work Phone: [phone]trztc18-33-3374 12:06-0500Diastolic blood mm[Hg]Darlin Ortega MD Work Phone: [phone]wygmq96-28-4110 12:06-0500Heart rate89 /min Dralin Ortega MD Work Phone: [phone]xtcgz83-69-9197 12:06-0500Systolic blood pressure 100 mm[Hg]Darlin Ortega MD Work Phone: [phone]cxeeq51-55-1782 12:02-0500Body wqieyy300 cmDavonte Ji [employer] Work Phone: 1(476) [phone]SnmjImorrg50-26-3751 12:02-0500Body mass index (BMI) [Ratio]27.88 kg/d6EczxoDavonte Ji [employer] Work Phone: 1(803) [phone]tdnlf75-27-6979 12:02-0500Body twdjcryzmrl97.2 [degF]Davonte Ji [employer] Work Phone: 1(442) [phone]uwJozpxy31-71-5722 12:02-0500Body .4 kgDavonte Ji [employer] Work Phone: 1(260) [phone]ocoHilsyp00-46-6014 12:02-0500Diastolic blood bfmsmalk47 mm[Hg]Davonte Ji [employer] Work Phone: 1(313) [phone]xtzsh06-12-9594 12:02-0500Heart rate90 /minDavonte Ji CNP Work Phone: 1(367) [phone]dclUdmnbm90-79-8522 12:02-0500Respiratory rate14 /min Davonte Ji CNP Work Phone: 1(720) [phone]521ObbmOrzhdg14-04-8678 12:02-4299YmS8% (BldA) [Mass fraction]99 %Davonte Ji [employer] Work Phone: 1(423) [phone]fbgtw71-41-8648 12:02-0500Systolic blood pressure 111 mm[Hg]Davonte Ji [employer] Work Phone: 1(728) [phone]266TcyfPwrhkr22-28-6777 11:15-0500Body ideteq675 cmAnna Gals [facility] Work Phone: [phone]eapdm30-75-0417 11:15-0500Body mass index (BMI) [Ratio]27.81 kg/m2Su Gotti [facility] Work Phone: [phone]xikdt51-85-3334 11:15-0500Body wurmjd26.22 kgSu Gotti [facility] Work Phone: [phone]agpdb10-52-7430 11:15-0500Diastolic blood mm[Hg]Su Gotti [facility] Work Phone: [phone]hgjla20-84-3537 11:15-0500Systolic blood pressure 114 mm[Hg]Su Gotti [facility] Work Phone: [phone]ymrxy94-25-6183 21:00-0500Diastolic blood mm[Hg]Ephraim Rosmery [address] [place], [place] 4606812-14-2024 21:00-0500Heart rate73 /minNoah Rosmery [address] [place], [place] 4606812-14-2024 21:00-0500Mean blood tqprakyo186 mm[Hg]Ephraim Rosmery [address] [place], [place] 4606812-14-2024 21:00-0500 Systolic blood bjxapuam710 mm[Hg]Ephraim Rosmery [address] [place], [place] 4606812-14-2024 20:30-0500 Diastolic blood sffzdbiu44 mm[Hg]Ephraim Rosmery [address] [place], [place] 4606812-14-2024 20:30-0500Heart rate66 /minNoah Rosmery [address] [place], [place] 4606812-14-2024 20:30-0500Mean blood fzcebfzh22 mm[Hg]Ephraim Rosmery [address] [place], [place] 4606812-14-2024 20:30-0500 Respiratory rate16 /minNoah Rosmery [address]12-14-2024 20:30-5210NxS5% (BldA) [Mass fraction]96 %Ephraim Rosmery [address]12-14-2024 20:30-0500 Systolic blood egqdzuuf480 mm[Hg]Ephraim Rosmery [address] [place], [place] 5658612-14-2024 20:00-2545TaL4% (BldA) [Mass fraction]95 %Ephraim Rosmery [address] [place], [place] 5658612-14-2024 19:06-0500Body nzudhesdmbk08.06 [degF]Ephraim Rosmery [address] [place], [place] 5658612-14-2024 19:06-0500 Diastolic blood wtjicvem78 mm[Hg]Ephraim Rosmery [address] [place], [place] 5658612-14-2024 19:06-0500Heart rate75 /minNoah Rosmery [address] [place], [place] 4606812-14-2024 19:06-0500 Systolic blood jssleqve202 mm[Hg]Ephraim Rosmery [address]09-16-2024 18:24-0400Blood Pressure LocationJovon Maxey [phone]-BbbroAult[facility] Yngd87-75-4622 18:24-0400Body paerqukwzhv54.24 [degF]Jovon Strickland 015-2081Jfeude-SjurwAultman [facility] Vmdf48-03-2243 18:24-0400Diastolic blood ihxkexsx41 mm[Hg]Jovon Strickland 016-0868Plqvgg-OvdnmAultman Alliance [facility] Uhvc57-68-2534 18:24-0400Heart rate88 /minJamikel Lopezpsey 208-4303Hgqlvt-VlzriNorwalk [facility]09-16-2024 18:24-9130LvU5% (BldA) [Mass fraction]97 %Jovon Strickland 509-0046Znuubj-NllrsNorwalk Memorial Hospital09-16-2024 18:24-0400Systolic blood vmljupms229 mm[Hg]Jovon Strickland 771-7150Avjttq-NctbnNorwalk Memorial Hospital03-30-2024 21:58-0400Diastolic blood owdmbwzo16 mm[Hg]Louis Santa [facility]03-30-2024 21:58-0400Heart rate91 /minLouis Santa [facility]03-30-2024 21:58-0400Mean blood ytdxspse52 mm[Hg]Louis Santa [address] [place], [place] 4606803-30-2024 21:58-0400 Respiratory rate18 /minLouis Santa [facility]03-30-2024 21:58-1089IqG5% (BldA) [Mass fraction]98 %Louis Santa [facility]03-30-2024 21:58-0400 Systolic blood tkeyyamg436 mm[Hg]Louis Santa [facility]03-30-2024 20:00-0400 Diastolic blood mm[Hg]Louis Santa [address] [place], [place] 4606803-30-2024 20:00-0400Mean blood iaugmcsl59 mm[Hg]Louis Santa [address] [place], [place] 4606803-30-2024 20:00-0400 Respiratory rate16 /minLouis Santa [address] [place], [place] 4606803-30-2024 19:30-0400 Diastolic blood mm[Hg]Louis Santa [facility]03-30-2024 19:30-0400Heart rate84 /minLouis Santa [facility]03-30-2024 19:30-0400Mean blood nammvvuo56 mm[Hg]Louis Santa [address] [place], [place] 4606803-30-2024 19:30-0400 Respiratory rate17 /minLouis Santa [address] [place], [place] 4606803-30-2024 19:30-1082OmM5% (BldA) [Mass fraction]99 %Louis Santa [address] [place], [place] 4606803-30-2024 19:30-0400 Systolic blood mm[Hg]Louis Santa [address] [place], [place] 4606803-30-2024 18:32-0400Body xensvrjqggv21.24 [degF]Louis Santa [facility]03-30-2024 18:32-0400Heart rate92 /minLouis Santa [facility]03-06-2024 11:08-0500Body jxstebrgbug25.24 [degF]Son Reyes [address] [place], [place] 4606803-06-2024 11:08-0500 Diastolic blood sahfkiij68 mm[Hg]Son Reyes [address] [place], [place] 4606803-06-2024 11:08-0500Heart rate81 /minSon Reyes [address] [place], [place] 4606803-06-2024 11:08-0500 Respiratory rate18 /minSon Reyes [facility]03-06-2024 11:08-0359JfA7% (BldA) [Mass fraction]100 %Son Reyes [address] [place], [place] 5658603-06-2024 11:08-0500 Systolic blood nllkyuch967 mm[Hg]Son Reyes [address] [place], [place] 5658612-14-2023 13:00-0500 Diastolic blood phucftvu57 mm[Hg]Son Reyes [address] [place], [place] 5658612-14-2023 13:00-0500Heart rate89 /minTim Eric [address] [place], [place] 5658612-14-2023 13:00-0500 Respiratory rate16 /minTim Eric [address] [place], [place] 5658612-14-2023 13:00-1108GpC7% (BldA) [Mass fraction]99 %Son Reyes [address] [place], [place] 5658612-14-2023 13:00-0500 Systolic blood dtmbedya169 mm[Hg]Son Reyes [address] [place], [place] 5658612-14-2023 12:00-0500 Diastolic blood prabqpzr32 mm[Hg]Son Reyes [address] [place], [place] 5658612-14-2023 12:00-0500Heart rate88 /minTim Eric [address] [place], [place] 5658612-14-2023 12:00-6740OaQ6% (BldA) [Mass fraction]98 %Son Reyes [address] [place], [place] 5658612-14-2023 12:00-0500 Systolic blood demoeanj505 mm[Hg]Son Reyes [address] [place], [place] 5658612-14-2023 10:00-0500 Diastolic blood ugycydop30 mm[Hg]Son Reyes [address] [place], [place] 5658612-14-2023 10:00-0500Heart rate95 /minTim Eric [address] [place], [place] 4606812-14-2023 10:00-0500 Respiratory rate18 /minSon Reyes [facility]12-14-2023 10:00-0500 Systolic blood ddezmtxc803 mm[Hg]Son Reyes [facility]12-14-2023 08:31-0500Body uukreouzzdy04.5 [degF]Son Reyes [facility]03-10-2023 10:48-0500Body exurrj982 cmCatherine yfert [employer] Work Phone: [phone]btcds68-63-3645 10:48-0500Body mass index (BMI) [Ratio]24.98 kg/f1Soegahniy Seyfert [employer] Work Phone: [phone]dmfgj29-96-7867 10:48-0500Body vbrwii69.96 kg Marlys Seyfert [employer] Work Phone: [phone]nwoor97-92-9293 10:48-0500Diastolic blood rymsjuxp99 mm[Hg]Marlys Seyfert [employer] Work Phone: [phone]xrowv36-74-5992 10:48-0500Systolic blood pressure 116 mm[Hg]Marlys Seyfert [employer] Work Phone: [phone]ukhuo75-01-0309 18:13-0500Diastolic blood qylhtacv26 mm[Hg]Phoenix Castro [facility]03-03-2023 18:13-0500Heart rate65 /minPhoenix Gloria [facility]03-03-2023 18:13-0500Mean blood dymnyqce39 mm[Hg]Phoenix Castro [facility]03-03-2023 18:13-0500 Respiratory rate20 /minPhoenix Gloria [facility]03-03-2023 18:13-0889WaI2% (BldA) [Mass fraction]99 %Phoenix Castro [address] [place], [place] 4606803-03-2023 18:13-0500 Systolic blood xytskeua064 mm[Hg]Phoenix Castro [facility]03-03-2023 17:00-0500 Diastolic blood zmoyjpky857 mm[Hg]Phoenix Castro [address] [place], [place] 4606803-03-2023 17:00-0500Heart rate75 /minPhoenix Castro [address] [place], [place] 4606803-03-2023 17:00-0500Mean blood mm[Hg]Phoenix Castro [address] [place], [place] 4606803-03-2023 17:00-0500 Respiratory rate18 /minPhoenix Castro [address] [place], [place] 4606803-03-2023 17:00-7266ZyS5% (BldA) [Mass fraction]96 %Phoenix Castro [address] [place], [place] 4606803-03-2023 17:00-0500 Systolic blood xhilsxxg173 mm[Hg]Phoenix Castro [address] [place], [place] 4606803-03-2023 16:00-0500 Diastolic blood codpnoal66 mm[Hg]Phoenix Castro [address] [place], [place] 4606803-03-2023 16:00-0500Heart rate88 /minPhoenix Castro [address] [place], [place] 4606803-03-2023 16:00-0500Mean blood gpquktoe78 mm[Hg]Phoenix Castro [address] [place], [place] 4606803-03-2023 16:00-0500 Respiratory rate16 /minPhoenix Castro [address] [place], [place] 4606803-03-2023 16:00-0500 Systolic blood rahkewxz987 mm[Hg]Phoenix Castro [facility]03-03-2023 15:00-0500Heart rate82 /minPhoenix Castro [facility]03-03-2023 14:00-0500Body xzlsemkuiql83.24 [degF]Phoenix Castro [facility]03-03-2023 14:00-0500Heart rate89 /minPhoenix Castro [address] [place], [place] 4606801-24-2023 13:56-0500Body ddxuqx172 cmLauren Emma DO Work Phone: [facility]01-24-2023 13:56-0500Body fmlyuc99.86 kgLauren Devantepicky DO Work Phone: [facility]01-13-2023 08:03-0500Blood Pressure LocationJobrenda Gonzalez [phone]-ToigpUniversity [facility]als [facility] [place] 08-14-2022 08:03-0500Diastolic blood drobgrfo26 mm[Hg]Phoenix Gonzalez 640-1245Uixnjf-PirutAdena [facility] 08-14-2022 08:03-0500Heart rate66 /minPhoenix Gonzalez [phone]-LfrzjAdena Health System 08-14-2022 08:03-7216DvT1% (BldA) [Mass fraction]99 %Phoenix Gonzalez [phone]-MbvchAdena Health System 08-14-2022 08:03-0500Systolic blood ulovwvwo621 mm[Hg]Phoenix Gonzalez [phone]-TnmsqUniversity [facility]als [facility] [place] 08-05-2022 16:13-0500Blood Pressure LocationMaryann Rashid [phone]-HwkgmBlanch[facility]01-04-2023 16:13-0500Body rwqppaikanz07.88 [degF]Maryann Rashid 369-6227Imtcbb-UsvwiBlanchard Valley Health System [facility]01-04-2023 16:13-0500Diastolic blood vggniurp46 mm[Hg]Maryann Rashid 121-3243Fkxbny-CrtjkBlanchard Valley Health System [facility]01-04-2023 16:13-0500Heart rate59 /minMaryann Rashid 415-6469Nuunyq-YliqqBlanchard Valley Health System [facility]01-04-2023 16:13-8491PaM5% (BldA) [Mass fraction]96 %Maryann Rashid [phone]-YarjiBlanchard Valley Health System [facility]01-04-2023 16:13-0500Systolic blood wsjqsulr764 mm[Hg]Maryann Rashid [phone]-PyortBlanchard Valley Health System [facility]12-01-2022 12:54-0500Body Papa KING-C Work Phone: [phone]paeeb97-25-3412 12:54-0500Body mass index (BMI) [Ratio]24.98 kg/c5HmrcvJoanna KING-C Work Phone: [phone]cpiir69-74-6078 12:54-0500Body uacume30.96 kg Joanna KING-C Work Phone: [phone]rqrnu75-50-0758 12:54-0500Diastolic blood elzdesiq69 mm[Hg]Joanna KING-C Work Phone: [phone]njxzr68-12-7357 12:54-0500Heart rate91 /minJoanna Suh PA-C Work Phone: [phone]ftpub30-16-6945 12:54-0500Systolic blood pressure 114 mm[Hg]Joanna Suh PA-C Work Phone: [phone]msvzl36-77-9653 12:04-0500Body ashrud111 Jacob Peterson [facility] Work Phone: [phone]bqsfm11-81-8600 12:04-0500Body mass index (BMI) [Ratio]27.1 kg/d1TjdocConnie Peterson [facility] Work Phone: [phone]cdafs14-62-7079 12:04-0500Body zbdset12.4 kgSucarolann Peterson [facility] Work Phone: [phone]fmtmt14-98-7381 12:04-0500Diastolic blood myvgknqw06 mm[Hg]Connie Peterson [facility] Work Phone: [phone]wizlh27-03-1100 12:04-0500Systolic blood pressure 117 mm[Hg]Connie Peterson [employer] Work Phone: [phone]syiqv78-32-2375 10:37-0400Body uazjfo760 Papa Suh PA-C Work Phone: [phone]kngyx80-95-0605 10:37-0400Body mass index (BMI) [Ratio]27.21 kg/e2NbgnfJoanna Suh PA-C Work Phone: [phone]ruubi49-17-1557 10:37-0400Body qxlyap09.67 kg Joanna Suh PA-C Work Phone: [phone]snudi93-44-9466 10:37-0400Diastolic blood mupljenm60 mm[Hg]Joanna Suh PA-C Work Phone: [phone]vovzh92-25-1574 10:37-0400Heart rate98 /minJoanna Suh PA-C Work Phone: [phone]thxfm13-60-7598 10:37-0400Systolic blood pressure 113 mm[Hg]Joanna Suh PA-C Work Phone: [phone]pvwkf71-87-8830 11:09-0500BMI (Body Mass Index) 26.43 kg/i1Kvukqffjjf KqpijfoibvabMhcoZeamfg98-46-9128 11:09-0500Body Bcdetbsurtk81.01 [degF]Shivkamini LwculxlfczxbTtejTatbgg33-45-3265 11:09-0500 Body .85 kgShivkamini GeryxpohxuwoHereTmctdc18-49-0034 11:09-0500BP Lirsljgel18 mm[Hg]Shivkamini BwjfikoknidpOfxkCbavyt80-16-2201 11:09-0500BP Ywqaoyva159 mm[Hg]Shivkamini PyajmsktqnraUdjyFloddy07-86-9548 11:09-0500Height 162.6 cmShivkamini ExehdgcviiveOcotJcxkxe78-42-7971 19:08-0500Body Temperature 98.91 [degF]Shivkamini IsqkmygpkiztPfghOruruc83-35-8625 19:08-0500BP Qlkncxlej68 mm[Hg]Shivkamini PfvypynmniznDiswJozmvk24-27-3893 19:08-0500BP Hqzyeomp24 mm[Hg][facility] FzypeoedjhzhRawaYcncic14-81-1563 19:08-0500Pulse (Heart Rate) 103 /minShivkamini QarwnpyiugcvNnyyUkamib16-21-0804 19:08-0500Pulse Xowigfac13 % Shivkamini XddtrsgcnzezFnwhNyuioe58-90-1269 19:08-0500Respiratory Rate15 /min [facility]hestervkamini NiecixkjcpdgHsvcPsxrlj64-27-0290 09:23-0500BMI (Body Mass Index)26.53 kg/k0Bipdizxnaz OyckghkocsguZnemEfgshb45-32-2199 09:23-0500Body nkuiot60.1 kg [facility] IdqsxhchabisYuifMcnakf84-82-5042 09:23-1720Irqssq914.6 cmShivkamini EtzamkexdgrzLjftNnrbkm05-02-6530 14:52-0500BMI (Body Mass Index)27.07 kg/m2 Shivkamini WpvcrthmorgzBcieLgfxvi05-79-2941 14:52-0500Body Qcgtaqrqluq24.7 [degF]Shivkamini EaftmztsawtwVlolPilgbn31-21-6368 14:52-0500Body engskr35.31 kg Shivkamini IykxngdokzefVvxaStfpqd55-04-1287 14:52-0500BP Dqxkcnnec62 mm[Hg] Shivkamini DyllaejbthxiBumpAeykjz11-84-2553 14:52-0500BP Agsptreu065 mm[Hg] Shivkamini OerkneiwssqkRoxpDozsjb09-92-0104 14:52-7181Hpclxq424 cmShivkamini SomasundaramOhioHealth Encounters Encounter DateEncounter [facility] ProviderFacilityStart: 05-21-2025 End: 36-41-5034lvoxntujrpOjank M. LueFacility:EU [facility] HealthWYtart: 05-21-2025 End: 17-65-3326Ldjyxtq encounter [place] [facility] Start: 05-14-2025 End: 83-70-1416Eoxdol flowsheetCorey Kelly DO Work Phone: NOU[facility] OBGYNStart: 05-14-2025 End: 33-47-8665Rkcgaw flowsheetCorey Kelly DO Work Phone: NOSQ [place] OBGYNStart: 05-14-2025 End: 84-51-2079tzwgrqodcwVzdhw R FAZIOFacility:FTMCStart: 05-14-2025 End: 24-74-4689Adrfwz outpatient visit 15 minutesCorey Kelly DO Work Phone: [facility]St[facility] OBGYNComment on above:History of miscarriage; Threatened miscarriage ([facility]); Missed menses; Positive urine test ([facility])Start: 05-14-2025 End: 11-48-7159fovmjfwogsRRFHW Deysi AvailableStart: 05-12-2025 End: 06-87-9162yrztcjiikbDBDYNXNEP BROWNFacility:FTMCStart: 05-12-2025 End: 16-81-1288Jhsxsrp encounter procedureJurgen Morfin DO-Lab [facility] Work Phone: Start: 05-12-2025 End: 74-96-4052rzvwlzpkikVqysd A Kaple DO Work Phone: [facility] Work Phone: Start: 05-10-2025 End: 02-99-1491Qyqztpxxu department patient visitScott Kaple DO Work Phone: [phone]-Oawlszeht Room Work Phone: Start: 04-03-2025 End: 11-70-0211xwfoqwgrmwFvbsg Navjot. LueFacility:FTMCStart: 03-26-2025 End: 03-07-0316dhedtkrglfEtzxi Navjot. LueFacility:FTMCStart: 44-08-9598omjcmiizls Miladis TannaFacility:EU [place]Start: 02-26-2025 End: 00-83-4459tolgxgweftEchez Navjot. LueFacility:FTMCStart: 02-08-2025 End: 36-20-4519rjemuenbnyYukrm M. LueFacility:EU UtekStart: 02-08-2025 End: 04-63-0583Geqbdmy encounter procedureSum[place] [facility] Start: 01-05-2025 End: 78-08-5217ngmizdqbqeZndttt TannaFacility:EU [place]Start: 01-05-2025 End: 61-26-3338Gkoxnep encounter procedureMiladis [place] [facility] Start: 01-03-2025 End: 73-10-6148Apxbbcdfv department patient visitLouis SantaFacility:[facility] Start: 01-01-2025 End: 20-26-8566Uwi-admission assessmentMiladis [facility] Start: 12-29-2024 End: 71-97-0165vzulfziproAmeeth TannaFacility:FTMCStart: 12-29-2024 End: 62-64-6510Lmb Drop offLauchele [facility] Start: 12-29-2024 End: 46-11-8792bzpwmnybbdEtgnyw E. NorcrossFacility:EU [place]kyStart: 12-29-2024 End: 46-93-1726Edilnaz encounter procedureMiladis [place] [facility] Start: 12-20-2024 End: 92-17-6612Wha Drop offDia Madsen [facility] Start: 12-20-2024 End: 40-52-2250krxwqilmuyHwovug E. NorcrossFacility:FTMCStart: 12-20-2024 End: 68-24-9088Hxtueif encounter Deangelo Madsen [phone]-ZhqgmA[facility] Start: 12-13-2024 End: 80-19-9797Mtaogalfz department patient visitLouis Santa [facility] Start: 10-06-2024 End: 78-93-9380UzqtkuJbYpzstn [facility] Gyne[facility] Comment on above:Acute cystitis without hematuria (Primary Dx)Start: 10-02-2024 End: 37-02-9848Lrgzgu Zach Ortega MD Work Phone: o[facility] GynecologyComment on above: Acute cystitis without hematuria (Primary Dx)Start: 09-28-2024 End: 08-18-2370Tnoohw follow up visit related to original Helen Ortega MD Work Phone: o[facility] GynecologyComment on above: Post-operative state (Primary Dx); Endometriosis determined by laparoscopy; Interstitial cystitisStart: 09-28-2024 End: 75-29-9950abmuenapljESWJMVeterans Affairs [facility] AmbulatoryStart: 09-12-2024 End: 38-78-1753wcklbmydlfYZHKITTISM [facility] Start: 09-01-2024 End: 58-00-9236Qpsblm outpatient new 30 minutesDarlin Ortega MD Work Phone: [facility] Comment on above:Interstitial cystitis (Primary Dx); Pre-op examination; Preoperative cardiovascular examination; PONV (postoperative nausea and vomiting); Anemia, unspecified typeStart: 09-01-2024 End: 46-83-1796Shsugiy encounter statusDarlin Ortega MD Work Phone: [facility]HealthStart: 09-01-2024 End: 63-96-9502Fezwwkvnkcsfz examination Yudith Ortega MD Work Phone: [facility]HealthStart: 09-01-2024 End: 44-77-9829Bkyciactz for other preprocedural examinationDAVONTE JI [facility] Hospitaltart: 09-01-2024 End: 91-22-0533Ckppgzhny for preprocedural cardiovascular examinationLILIAN MACIE [facility]tart: 09-01-2024 End: 43-71-5820Hadpfanw SupportCitlalli [facility] GynecologyComment on above:Acute postoperative pain (Primary Dx); Pelvic pain in femaleStart: 08-17-2024 End: 64-13-0046Fctg/qhp telephone evaluation Linda Ortega MD Work Phone: [facility] GynecologyComment on above: Endometriosis determined by laparoscopy; Pelvic congestion syndrome; Interstitial cystitis; Gilbert's syndrome; History of multiple miscarriagesEndometriosis determined by laparoscopy; Pelvic congestion syndrome; Interstitial cystitis; Gilbert's syndrome; History of multiple miscarriages; Pelvic pain in femaleStart: 08-17-2024 End: 81-94-6903xnarfgowfiPLHYNTINZJ SOMATRAVISOhioHealth [facility] AmbulatoryStart: 08-14-2024 End: 86-06-7902ZtjviwWojciech Ortega MD Work Phone: o[facility] GynecologyComment on above: History of recurrent miscarriages (Primary Dx)Start: 43-56-1572hnirlqieidFadrvgp A. MouchliFacility:Yordan DHStart: 07-19-2024 End: 48-31-8542Kdhhji outpatient visit Rich Gotti CNP Work Phone: o[facility] GynecologyComment on above: Pelvic pain in female (Primary Dx); Abdominal pain, unspecified abdominal location; Bloating; Diarrhea, unspecified typeStart: 07-19-2024 End: 10-98-4541okuswqjnrdRMUJ MACIE [facility] AmbulatoryStart: 07-15-2024 End: 17-31-6598Xujpgargw department patient visitDO Ephraim Botello [facility]: 04-18-2024 End: 29-75-7217gxwqakixzzMaatg M. DempseyFacility:[facility]tart: 04-18-2024 End: 79-04-8662Etj Drop Rodolfo Strickland [facility] Start: 04-17-2024 End: 26-31-3009qrkiuaygwfRrjfx M. DempseyFacility:FTMCStart: 04-17-2024 End: 64-13-5910Yjlfmrb encounter procedureJovon Strickland [phone]-IxbypAultman [facility] Start: 11-19-2023 End: 13-46-2914rqqpietklrIllua R FAZIOFacility:FTMCStart: 11-19-2023 End: 69-88-4346Rsvmtzc encounter procedureCorey R KELLY [facility] Start: 11-15-2023 End: 74-93-2521vifudcmrfyGyywf R FAZIOFacility:FTMCStart: 11-15-2023 End: 38-03-0713Fllvydw encounter procedureCorey R KELLY [facility] Start: 11-11-2023 End: 75-88-0667hemnbztkyxNxmjg R FAZIOFacility:FTMCStart: 11-11-2023 End: 11-52-0792Fpkylhh encounter procedureCorey R KELLY [facility] Start: 11-01-2023 End: 04-08-2113cakhkqjncyOsqyk R FAZIOFacility:FTMCStart: 11-01-2023 End: 78-53-3121Bvqqjzh encounter procedureCorey R KELLY [facility] Start: 10-30-2023 End: 85-84-3494Pvioiamkw department patient visitLouis MorfinMaricruz [facility] Start: 10-25-2023 End: 71-49-8042amrfjzzepiTsmek R FAZIOFacility:FTMCStart: 10-25-2023 End: 29-20-2695Dxsrfup encounter procedureCorey R KELLY [facility] Start: 10-22-2023 End: 68-72-3251Quidciyof Result EncounterCorey Kelly DO Work Phone: noms External Department UnsolicitedStart: 10-22-2023 End: 96-42-3549Noifubkxl Result EncounterCorey Kelly DO Work Phone: noms External Department UnsolicitedStart: 10-22-2023 End: 66-93-8805tfinmuwyguMedqq R FAZIOFacility:FTMCStart: 10-22-2023 End: 44-00-8385Vayjrmq encounter procedureCorey R KELLY [facility] Start: 10-06-2023 End: 65-20-1755Kciwvyaxn department patient visitSon Reyes [facility] Start: 09-25-2023 End: 22-28-4856qwdpzggtbqMzmiv R FAZIOFacility:FTMCStart: 09-25-2023 End: 31-46-1771Iqaqaxi encounter procedureCorey R KELLY [facility] Start: 09-23-2023 End: 79-05-2033iewfjuyvgjHxuot R FAZIOFacility:FTMCStart: 09-23-2023 End: 67-31-5248Ibugpgb encounter procedureCorey R KELLY [facility] Start: 07-23-2023 End: 56-08-3164Ecdnxfmnv Result EncounterCorey Kelly DO Work Phone: noms External Department UnsolicitedStart: 07-23-2023 End: 43-71-5628Wmdsmijdc Result EncounterCorey Kelly DO Work Phone: noms External Department UnsolicitedStart: 07-22-2023 End: 61-46-5911Hockmvgch Result EncounterCorey Kelly DO Work Phone: noms External Department UnsolicitedStart: 07-22-2023 End: 81-73-9411Knpsxuuug Result EncounterCorey Kelly DO Work Phone: noms External Department UnsolicitedStart: 07-15-2023 End: 41-14-6958Pwlokvwgz department patient visitTim ThomasFacility:FTMCStart: 07-14-2023 End: 89-48-5864Kzdihzpbj Result EncounterCorey Kelly DO Work Phone: noms External Department UnsolicitedStart: 07-14-2023 End: 45-98-0123Urxphjspu Result EncounterCorey Kelly DO Work Phone: noms External Department UnsolicitedStart: 07-08-2023 End: 40-79-1570Zdfxyonck Result EncounterCorey Kelly DO Work Phone: noms External Department UnsolicitedStart: 07-08-2023 End: 23-95-5314Clpmqkqfe Result EncounterCorey Kelly DO Work Phone: noms External Department UnsolicitedStart: 05-31-2023 Renzo Miller RNKyioPremier Health [facility] GynecologyComment on above: Interstitial cystitisStart: 10-28-2022 End: 64-21-5655awucfxezszBFBDDB KOPICKYFacility:[facility] HospitalStart: 10-28-2022 End: 08-51-0599Lxfdek outpatient visit 15 minutesLauren Emma DO Work Phone: General SurgeryComment on above:Breast pain, right (Primary Dx); Nipple discharge; Family history of breast cancerStart: 25-39-1834Xhniuigqh encounterBella Barrera RNGeneral SurgeryComment on above:AppointmentStart: 10-09-2022 End: 06-98-4429Mhxdqim encounter procedureCatkatie West CNP Work Phone: [facility] GynecologyComment on above: Interstitial cystitis (Primary Dx)Start: 10-07-2022 End: 94-78-6859Vbeqruefbl hospital visit by physicianDiagnostic Mammo Main MammographyComment on above:Mass of upper outer quadrant of right breast [N63.11]Start: 10-07-2022 End: 91-23-4934wbzeaasfdqGVREFP KOPICKYFacility:[facility] Hospitaltart: 10-07-2022 End: 77-01-9665Leoykoagjz hospital visit by physicianMri Main A10 (Large Bore/1.5t) Work Phone: MRI N82Yjrolyy on above:Mass of upper outer quadrant of right breast [N63.11]Start: 10-02-2022 End: 20-95-9004Urmswkieb department patient visitPhoenix Castro [facility] Start: 08-25-2022 End: 15-56-8156ooyukoxsrhYSDCPB KOPICKYFacility:[facility] Hospitaltart: 08-25-2022 End: 14-54-6781Kbxszs outpatient new 45 minutesLauren AppinionslexiiYour Style Unzipped DO Work Phone: General SurgeryComment on above:Mass of upper outer quadrant of right breast (Primary Dx); Nipple discharge; Family history of breast cancer; At high risk for breast cancer; MastalgiaStart: 08-14-2022 End: 87-93-9869Khqrodg encounter procedurePhoenix Gonzalez [phone]-OrkxrAultman Alliance [facility] Hospital General Surgery Donna Start: 08-10-2022 End: 10-84-1474Rvqwyjq encounter procedureMaryann Rashid [facility] Start: 08-05-2022 End: 25-20-1398Tbirwaw encounter procedureMaryann Rashid [phone]-UinikAultman Alliance [facility] Hospital [facility] Start: 07-02-2022 End: 53-31-2536Ygtuqr outpatient visit 10 minutesJoanna Suh PA-C Work Phone: [facility] GynecologyComment on above: Myofascial muscle pain (Primary Dx); Pelvic pain in female; Interstitial cystitis; Encounter for other general counseling or advice on contraceptionStart: 06-18-2022 End: 82-27-0005Cqpcqss encounter procedureSfilipe Peterson [employer] Work Phone: [facility] GynecologyComment on above: Interstitial cystitis (Primary Dx); Dark yellow-colored urineStart: 04-55-2796Hlmvld Susan West [employer] Work Phone: [facility] GynecologyComment on above: BV (bacterial vaginosis) (Primary Dx)Start: 04-02-2022 End: 61-32-2416Jqxbhnh encounter procedureJoanna Suh PA-C Work Phone: [facility] GynecologyStart: 04-02-2022 End: 20-71-1030Mhwxvahv preventive med est patient 18-39 yrsJoanna Suh PA-C Work Phone: [facility] GynecologyComment on above: Well woman exam (Primary Dx); Screening for malignant neoplasm of cervix; Vaginal discharge; Myofascial muscle pain; Pelvic pain in femaleStart: 08-20-2021 End: 26-58-5723Hmukfni encounter procedureAngela Julio C WALLACEMELLY [facility] Start: 10-09-2020 End: 76-35-1562NedzmoBimvnmr J BellUniversity Hospitals Health System [facility]ician Group GynecologyComment on above:Pelvic pain in female (Primary Dx)Start: 10-09-2020 End: 84-53-7200Yaaipe follow up visit related to original Helen Ortega Work Phone: [facility] GynecologyComment on above: Post-operative state (Primary Dx); Chronic pelvic pain in female; Interstitial cystitisStart: 09-26-2020 End: 02-42-5442Vqxbwkg encounter procedureSRDONEY FLAHERTYUniversity Hospitals Ahuja Medical Centertart: 09-26-2020 End: 96-51-6996Jltwwgsxci hospital visit by Wilbert Ortega Work Phone: [phone] [place] [address] Patient Care [place] 430Comment on above:Ovarian cyst rupture; Chronic pelvic pain in female; Dysuria; Irritable bowel syndrome, unspecified typeStart: 09-25-2020 End: 59-84-5680Brbutzsh Whitney PerdomoUniversity Hospitals Health [facility]ician Group GynecologyStart: 09-20-2020 End: 46-61-9996Uljmnn OnlyDarlin Ortega Work Phone: [facility] GynecologyComment on above: Ovarian cyst rupture (Primary Dx); Chronic pelvic pain in female; Dysuria; Irritable bowel syndrome, unspecified typeStart: 08-20-2020 End: 68-25-6283PpdyvjGgnsibkyrb Somasundaram Work Phone: [facility] GynecologyStart: 08-16-2020 End: 14-55-8805ClqgbkDrrsddh J BellUniversity Hospitals Health System [facility]ician Group GynecologyStart: 08-14-2020 End: 16-55-0956Ugwbew outpatient new 30 minutesShivaries Ortega Work Phone: [facility] GynecologyComment on above: Pelvic pain in female; Endometriosis; Ovarian cyst rupture; Pelvic congestionStart: 16-26-6646Tibudgw encounter procedureRegNationwide Children's Hospital Facility:[facility] Procedures DateProcedureProcedure DetailPerforming ClinicianStart: 86-42-4392Cjfzk culture Thania Kaylin DO Work Phone: Start: 40-58-2962Cqmvxodnfxgq obstetric ultrasonographyScjacqui Owens DO Work Phone: Start: 58-55-5167Botewimdix ultrasound of gravid uterusScott Kaylin DO Work Phone: Start: 51-56-0258Ppdckjiuqsgzazh of bladderKathy Lue Start: 21-81-4244Qxekdix bacterial quanttative colony count Jonatan Ortega MD Work Phone: Start: 57-17-5809Pdlwrok bacterial quanttative colony count Jonatan Ortega MD Work Phone: start: 09-12-2024H/O: surgeryS/P robot-assisted surgical procedureSlauren Ortega MD Work Phone: Start: 05-87-8012Mtkao count complete automated Darlin Ortega MD Work Phone: Start: 83-61-6097Mtolg typing serologic Renae Ortega MD Work Phone: Start: 88-44-7049GM OB TRANSVAGINALCorey Kelly DO Work Phone: Start: 73-84-4107JD PELVISCorey Kelly DO Work Phone: Start: 84-37-8504YF OB TRANSVAGINALCorey Kelly DO Work Phone: Start: 42-54-2154XR OB TRANSVAGINALCorey Kelly DO Work Phone: Start: 80-24-5163VU OB TRANSVAGINALCorey Kelly DO Work Phone: Start: 67-93-0609Mx breast uni real time with image limitedLauren Appinionspicky DO Work Phone: Start: 35-19-2853Lpnhywj breast tomosynthesis bilateralLauren Kopicky DO Work Phone: Start: 40-32-2053Zbc breast without&with contrast w/cad bilateralLauren Kopicky DO Work Phone: Start: 83-54-8872Jnfehwsuchb observation [Identifier] in Cervix by Ovidio Peterson [employer] Work Phone: start: 81-21-6910Hvs cyst/aberrant breast tissue open 1/> lesionCaroline SPETTEL Start: 70-66-2253FOLQ OTHER ORDERSProvider Not In SystemStart: 23-17-8027Zgqhl group typingProvidence Kodiak [facility] Work Phone: start: 52-91-4670Arfnhak [Mass/volume] in Blood [facility] Work Phone: start: 78-70-5868Paqxjzsohjgcihamvc ( test) [Presence] in UrineProvidence Kodiak Island Medical Center Work Phone: Start: 05-17-4065Vjfhn type and Indirect antibody screen panel - BloodProvidence Kodiak Island Medical Center Work Phone: start: 85-83-7036GergtpoqqsimemaqmbxlrxvonvKsqkpdsy SPETTEL Start: 87-18-0173VfiydwqgntfLomjyegt SPETTEL Comment on above:Dx with pelvic congestion syndrome Start: 83-70-0512Ufofnyeh screenRegina HillComment on above:Order Comment: [place]: [facility] patient taking DUSTY?Has patient had a transplant?Performed By: #### BTS ####[facility] [address] [place], [place] [address]Ddvni: 29-80-7764OlgywiwmzenPnynusuc SPETTEL Start: 66-37-8384gpnjen teeth removed c3Tfxaebaq SPETTEL Breast lump (finding)Sumaya Lumina Plan of Treatment DateCare ActivityDetailAuthorStart: 70-06-7697Gjvpilrau for malignant neoplasm of cervixOhioHealthStart: 59-33-0596Yvvpifb vaccinationTetanus: Every 10yrs IowaHealthStart: 06-18-2025 End: 47-00-2177Kdlfvgwuzbzz / ancillary services aukbxibndw46/17/2025 8:30 AM EST Ancillary Procedure [facility] [place] FRASER [address] [place] [address] [place] [phone] [facility] [place] OBGYNStart: 05-28-2025 End: 04-48-9328Plvdcfp encounter xtjaynuig68/27/2025 8:40 AM EDT Office Visit NOMDebbie FRASER [address] [facility] [place] [phone] Ahsan Mendoza, [address], [place] [address] [facility] OBGYNStart: 05-14-2025 End: 49-67-1427yZC, quantitative, pregnancyhCG, quantitative, Lab Routine History of miscarriage Missed menses Positive urine test ([facility]) Expected: 05/14/2025 (Approximate), Expires: 05/14/2026NONH Healthcare Comment on above:Expected: 05/14/2025 (Approximate), Expires: 05/14/2026Start: 05-14-2025 End: 43-61-7037YH Pelvis transvaginalUS OB transvaginal Imaging Routine History of miscarriage Missed menses Positive urine test ([facility]) Expected: 05/14/2025, Expires: 08/14/2025NONH Healthcare Work Phone: comment on above:Expected: 05/14/2025, Expires: 08/14/2025Start: 05-14-2025 End: 29-13-3055Ddocyab encounter cprizzgps32/13/2025 8:40 AM EDT Office Visit GEETA [place] OBGYN [address] [place] [phone] Ahsan Mendoza DO [address] [place], [place] [phone] ArrivedNOMS Avila OBGYNComment on above:ArrivedStart: 81-58-5574Meoegplg identified in Urine by CultureUrine [facility] Centertart: 93-62-0572Zlitk [facility] Hospitaltart: 98-02-7785Srgxiyfjg for malignant neoplasm of cervixPap SmearOhioHealthStart: 40-47-0159npxfbzbkzmKtninltaxoVxjlyjfe:[place] PCStart: 09-28-2024 End: 45-70-1433Vpkutdo encounter chtfopgcb80/27/2025 12:40 PM EST Office Visit [facility] Physician [facility] Gynecology [address] [place] [address] Darlin Ortega MD [address] [place] [address] [facility] Physician [facility] GynecologyStart: 09-12-2024 End: 79-93-1975Tbqygakor to same day surgery aekaby3809/12/2024 8:10 AM EST - 09/12/2024 10:20 AM EST Surgery [address] [address] Darlin Ortega MD [address] [place] [address] ROBOTIC ASSISTED LAPAROSCOPIC EXCISION OF ENDOMETRIOSIS, CHROMOPERTUBATION, CYSTOSCOPY POSSIBLE HYDRODISTENTION, HYSTEROSCOPY DILATION AND CURETTAGE WITH MYOSURE *SIMPLE* *ERAS PROTOCOL* *GLYCEMIC CONTROL PROTOCOL* [facility] PeriopComment on above:ROBOTIC ASSISTED LAPAROSCOPIC EXCISION OF ENDOMETRIOSIS, CHROMOPERTUBATION, CYSTOSCOPY POSSIBLE HYDRODISTENTION, HYSTEROSCOPY DILATION AND CURETTAGE WITH MYOSURE *SIMPLE* *ERAS PROTOCOL* *GLYCEMIC CONTROL PROTOCOL*Start: 09-12-2024 End: 51-08-4658Byak abd prtm&omentum dx w/wo spec br/wa spxPELVISCOPY ROBOTIC XI - SIMPLE Pelvic pain in female Interstitial cystitis Pelvic congestion syndrome Gilbert's syndrome Endometriosis determined by laparoscopy History of multiple miscarriages 09/12/2024 8:10 AM [facility] 09-12-2024 Subsequent hospital visit by physicianOhio [facility] PeriopStart: 09-01-2024 End: 10-82-6749Iafqyivg Appjnbu6209/01/2024 12:00 PM EST Clinical Support [facility] Physician [facility] Gynecology [address] [place] [phone] [employer] Work[employer] Lana KangUniversity Hospitals Health System Physician [facility] GynecologyStart: 08-17-2024 End: 03-19-9617Sbmxbxz encounter oefkzqgij17/16/2025 10:00 AM EST Office Visit [facility] Physician [facility] Gynecology [address] [place] [address] Darlin Ortega MD [address] [place] [address] [facility] Physician [facility] GynecologyStart: 21-88-7552TGHPY-19 Vaccine ( season) COVID-19 Vaccine ( season)[facility] SystemStart: 53-87-7364Qkesrhswt vaccinationInfluenza Vaccine (#1)[facility] SystemStart: 09-29-2023 End: 37-03-7562Mtvgyww encounter ptpxxhima79/28/2024 1:10 PM EST Office Visit [facility] Gynecology [address] [place] [address] Joanna Suh PA-C [address] [place] [address] [facility] GynecologyStart: 74-18-8451Unmostr and physical examination, annual for [facility] VisitOhioHealthStart: 81-42-6649Lzblcnhvl vaccinationVeterans Health Administrationtart: 10-22-2022 End: 00-18-3787Pbiheps encounter qigwlloom68/23/2023 Procedure visit Gynecology Marlys West CNP [address] [place] [address] [facility] Gynecology Start: 09-30-2022 End: 18-15-3901Fyovzbadtddt consultation with sokcgex3209/30/2022 Telemedicine Gynecology Joanna Suh PA-C [address] [place] [address] [facility] GynecologyStart: 75-45-9995CUOXIIVFBQ ASSESSMENTDEPRESSION ASSESSMENTVeterans Health Administrationtart: 07-02-2022 End: 70-85-1363Wwgnwlb encounter lfkaoctuj29/01/2022 Office Visit Gynecology Joanna Suh PA-C [address] [place] [address] [facility] Gynecology Start: 04-10-2022 End: 58-22-3398Uncxuyo encounter qvdinqptg18/09/2022 Procedure visit Gynecology Connie Peterson, AUTUMN [address] [place] [address] [facility] Gynecology Start: 21-73-6237Oszhxixcb vaccinationOhioHealthStart: 01-08-2021 End: 46-64-1103Emhtqz Visit01/08/2021 Office Visit Gynecology Viktor Mendosa, TRAVIS [address] [place] [place] [address] [phone] [facility] GynecologyStart: 10-09-2020 End: 10-48-6184Nvlpum Visit10/09/2020 Office Visit Gynecology Darlin Ortega MD [address] [place] [address] [phone] [facility] GynecologyStart: 09-26-2020 End: 35-70-0121Paagjsnz EncounterDuDell Children's Medical Center PeriopComment on above:XI ROBOTIC ASSISTED LAPAROSCOPIC EXCISION OF ENDOMETRIOSIS, CHROMOPERTUBATION, CYSTOSCOPY POSSIBLE HYDRODISTENTION, POSSIBLE IUD INSERTION ERAS PROTOCOLStart: 09-26-2020 End: 39-22-0260Zkkeudky EncounterAultman Hospital PeriopComment on above:XI ROBOTIC ASSISTED LAPAROSCOPIC EXCISION OF ENDOMETRIOSIS, CHROMOPERTUBATION, CYSTOSCOPY POSSIBLE HYDRODISTENTION, POSSIBLE IUD INSERTION ERAS PROTOCOLStart: 09-25-2020 End: 85-67-5814Nlndhyng SupportAultman Orrville Hospital GynecologyStart: 09-22-2020 End: 99-32-6835Ktcoye Visit09/22/2020 Office Visit Lab Darlin Ortega MD [address] [place], [place] [phone] COVID Assessment CenterStart: 43-13-6832Ioocxbvzd vaccination given Sequential Influenza Vaccine (#1)[facility] SystemStart: 46-85-6571UQJ TESTINGPAP TESTINGCutler ClinicStart: 04-71-6112Xroxn microalbumin profileDTAP,TDAP,TD (1 - Tdap)[facility] Administrationtart: 57-03-6257Pxepovwfz C antibody, confirmatory testHepatitis C ScreeningOhioHealthStart: 89-61-2418Hucsdisjj C screening Hepatitis C ScreeningOhioHealthStart: 68-65-0982ADQEPFNTX C SCREENINGHEPATITIS C SCREENINGVeterans Health Administrationtart: 57-42-9143EEH SCREENINGHIV SCREENINGVeterans Health Administrationtart: 61-38-1497XYNJO-19 Vaccine (1 of 2)COVID-19 Vaccine (1 of 2) [facility]HealthStart: 01-49-5840PEW screeningHIV ScreeningOhioHealthStart: 2005 Adolescent depression screening assessmentDepression Screening (PHQ9)[facility] Start: 30-06-8473Yhrznodwwu screening using PHQ-9 (Patient Health Questionnaire 9) scoreOhioHealthStart: 19-65-9002Mlctaug and physical examination, annual for health [facility] VisitOhioHealthStart: 70-25-1323YEJHN-19 Vaccine (#1) COVID-19 Vaccine (#1)[facility]HealthStart: 40-45-6618VBLDEGNUY B (1 of 3 - 3-dose series)HEPATITIS B (1 of 3 - 3-dose series)[facility] Health Administrationtart: 1993 Screening for malignant neoplasm of cervixPap SmearOhioHealthBacteria identified in Unspecified specimen by Aerobe cultureUrine Aerobic Culture Microbiology Routine Post-operative state 09/28/2024 1:42 PM [employer] Work Phone: End: 26-51-4963Xorufqxt identified in Unspecified specimen by Aerobe culture Urine Aerobic Culture Microbiology Routine Acute cystitis without hematuria 1 Occurrences starting 10/06/2024 until 10/06/2025[facility] Work Phone: comment on above:1 Occurrences starting 10/06/2024 until 6Blood type and Indirect antibody screen panel - BloodType and Screen Blood Bank Routine Pre-op examination 09/01/2024 12:46 PM [employer] Work Phone: chlamydia trachomatis rRNA assay Chlamydia/GC/Trichomonas Amplified RNA Microbiology Routine Vaginal discharge 04/02/2022 12:31 PM EDTOAccess Hospital [facility] End: 47-56-8801Hgtnsgwm blood count with white cell differential, manualCBC and differential Lab Routine Dark yellow-colored urine 1 Occurrences starting 06/18/2022 until 06/18/2023[facility] Work Phone: comment on above:1 Occurrences starting 06/18/2022 until 3Complete blood count with white cell differential, manualCBC and differential Lab Routine Dark yellow-colored urine 06/18/2022 1:02 PM EST [facility] End: 88-99-3594Sifvacoxuz [Mass/volume] in Serum or PlasmaCreatinine, Serum Lab Routine Dark yellow-colored urine 1 Occurrences starting 06/18/2022 until 06/02OhioHealthComment on above:1 Occurrences starting 06/18/2022 until 3Creatinine [Mass/volume] in Serum or PlasmaCreatinine, Serum Lab Routine Dark yellow-colored urine 06/18/2022 1:02 PM ESTKyioPremier Health [facility] Hospital South End: 24-38-0695MHQ Habitual Aborter ProfileCWC Habitual Aborter Profile Lab Routine History of recurrent miscarriages 1 Occurrences starting 08/14/2024 until 08/14/2025KyioPremier Health [facility] Work Phone: comment on above:1 Occurrences starting 08/14/2024 until 08/14/2025 End: 44-32-3571Zfgpjddfnc mammography computer-aided detcj biMAM DIAGNOSTIC BILAT Radiology Routine Mass of upper outer quadrant of right breast Nipple discharge Family history of breast cancer At high risk for breast cancer Mastalgia 1 Occurrences starting 08/25/2022 until 09/24/2023[facility] Work Phone: Comment on above:1 Occurrences starting 08/25/2022 until 09/24/2023 End: 00-15-3095Swascxubnnc vaginalis rRNA assayVaginitis DNA Probes Microbiology Routine Vaginal discharge 1 Occurrences starting 04/02/2022 until04/02/2023 OhioHealthComment on above:1 Occurrences starting 04/02/2022 until 04/02/2023 Gardnerella vaginalis rRNA assayVaginitis DNA Probes Microbiology Routine Vaginal discharge 04/02/2022 12:31 PM EDTOhioHealth End: 04-10-7794Celemho [Mass/volume] in Serum or PlasmaGlucose Lab Routine History of multiple miscarriages 1 Occurrences starting 08/21/2024 until 026OhioHealthComment on above:1 Occurrences starting 08/21/2024 until 08/21/2025 End: 40-18-6351Yesaduj [Units/volume] in Serum or PlasmaInsulin, Total Lab Routine History of multiple miscarriages 1 Occurrences starting 08/21/2024 until 08/21/2025[facility] Work Phone: comment on above:1 Occurrences starting 08/21/2024 until 08/21/2025 End: 09-35-4336OLDZIAQDDU OF BLADDERIrrigation of bladder Procedures Routine Interstitial cystitis 1 Occurrences starting 06/18/2022 until 06/18/2023 OhioHealthComment on above:1 Occurrences starting 06/18/2022 until 06/18/2023 Laps abd prtm&omentum dx w/wo spec br/wa spxPELVISCOPY ROBOTIC XI - SIMPLE Pelvic pain in female Interstitial cystitis Pelvic congestion syndrome Gilbert's syndrome Endometriosis determined by laparoscopy History of multiple miscarriagesRiverside Restorationism HospitalMicroscopic examination of vaginal Papanicolaou smearThinprep Pap Smear Pathology and Cytology Routine Screening for malignant neoplasm of cervix Ordered: 04/02/2022[facility] Work Phone: comment on above:Ordered: 04/02/2022 End: 89-36-9482Ftq breast without&with contrast w/cad bilateralMRI BREAST WO/W IVCON BILAT Radiology Routine Mass of upper outer quadrant of right breast Nipple discharge Family history of breast cancer At high risk for breast cancer Mastalgia 1 Occurrences starting 08/25/2022 until 09/24/2023[facility] Work Phone: Comment on above:1 Occurrences starting 08/25/2022 until 09/24/2023Neisseria gonorrhoeae nucleic acid detectionOhioHealthComment on above:Ordered: 2Patient EducationUrinary tract infections in adults [facility] Work Phone: Patient [facility] Work Phone: Procedure on tissue specimenOhioHealthComment on above:Release Upon Ordering for 1 Occurrences starting 09/26/2020, 1 completed Trichomonas vaginalis Amplified RNAOhioHealthComment on above:Ordered: 04/02/2022 End: 80-85-3091Lceyv [Mass/volume] in Serum or PlasmaUric Acid Lab Routine Dark yellow-colored urine 1 Occurrences starting 06/18/2022 until 06/18/2023 [facility]Comment on above:1 Occurrences starting 06/18/2022 until 06/18/2023 Urate [Mass/volume] in Serum or PlasmaUric Acid Lab Routine Dark yellow-colored urine 06/18/2022 1:02 PM ESTOhioHealth End: 76-50-6018Cv breast uni real time with image limitedUS BREAST LTD RT Radiology Routine Mass of upper outer quadrant of right breast Nipple discharge Family history of breast cancer At high risk for breast cancer Mastalgia 1 [facility]ur[facility] 08[facility]25[facility]2022 [facility] Work Phone: Comment on above:1 Occurrences starting 08/25/2022 [facility] Immunizations Immunization DateImmunizationNotesCare WbcmzyxwHtcoecpr66-85-6445xqnjeao toxoid, reduced diphtheria toxoid, and acellular pertussis vaccine, adsorbedCaroline SPETTEL [facility] CenterComment on above:Reason for Medication: Other (see comment)NEGATED: Highlighted row has not occurred! 64-42-2998wfnluuwoh virus vaccine, unspecified formulationJohn Mourany [phone]-PlvynAultman [facility] [place] NEGATED: Highlighted row has not occurred!02-53-8596FVAV-CoV-2 mRNA (tozinameran 5y-11y) vaccineJohn Mourany [phone]-OglfdAultman Alliance Community [facility] [place] NEGATED: Highlighted row has not occurred!57-11-6976PQAZ-CoV-2 (COVID-19) mRNA- 1273 vaccineCaroline CANDICE [facility] CenterNEGATED: Highlighted row has not occurred!84-75-0235ymhowyeek virus vaccine, unspecified formulation Anglea HARVEY [facility] CenterNEGATED: Highlighted row has not occurred!89-86-0723nflerhdtu virus vaccine, live, attenuated, for intranasal useAngela HARVEY [facility] Payers DatePayer CategoryPayerPolicy [id number] [id number] 2016 MedicaidCARESOURCE MANAGED MEDICAID CARESOURCE MEDICAID [id number] [id number] 2016Medicaid (Managed Care)[facility] MEDICAID Member Subscriber Plan / Payer (Effective 2016- Present) Name: Miladis Cha Relation to Subscriber: Self Name: Miladis Cha Payer ID: Not on file Group ID: [id number] Type: Not on file Address: [address] [id number]. Private Health InsurancePA[facility] Member Subscriber Plan / Payer (Effective 2016-Present) Name: Miladis Cha Relation to Subscriber: Self Name: Miladis Cha Payer ID: Not on file Group ID: [id number] Type: Not on file Address: [address] [id number] [id number] [id number] 2.16840.1.296314.3.579.2.902 [id number] 2.16840.1.510325.3.57[id number] 2.16840.1.300788.3.57[id number] 2.840.1.459638.3.57[id number] 2.16840.1.056241.3.57[id number] 2.16840.1.474495.3.57[id number] 2.16840.1.388119.3.57[id number] 2.840.1.967902.3.57[id number] 2.16840.1.931788.3.579.2.[id number] 2.16840.1.877974.3.579.[id number] 2.16840.1.471994.3.579.2.58555-09-0796Erntplj31210492 2.16840.1.451827.3.579.2.73986-66-5575Hyaxint81142435 2.16840.1.256708.3.579.2.21920-73-5490Rukehey31621609 2.840.1.210607.3.579.2.15743-52-9037Uxzsuzq04456873 2.840.1.707903.3.579.2.95894-09-3974Hhudpxj71264568 2.840.1.484381.3.579.2.3[id number] 2..1.951278.3.579.2.46869-76-7487Meerhdf149467633 2.0.1.754944.3.579.2.92653-24-2352Dcioshw673643966 2..1.966610.3.579.2.99195-12-7010Zwqcdfk804420235 2..1.346154.3.579.2.24641-41-9897Nlcqpdd307252599 2.84.1.250123.3.579.2.83990-81-7551Fdtciko194915437 2..1.814220.3.579.2.85286-43-7110Phtkjzx179809377 2.840.1.264828.3.579.2.55508-29-8381Txwpmri29887451 2.840.1.791220.3.579.2.93308-58-3131Hbwdwfr06784495 2.840.1.672658.3.579.2.67993-67-0629Lwxzqwd88676695 2.840.1.206393.3.579.2.47646-76-8177Fjrtakt24097257 2.16.840.1.525203.3.579.2.91105-82-9620Tfvmwlh21018406 2.16.840.1.848682.3.579.2.18576-26-8140Bcnscwn04184298 2.16.840.1.859555.3.579.2.15954-53-8668Pjfkfqb97072181 2.16.840.1.629112.3.579.2.10842-51-0406Hqewrtl30093089 2.16.840.1.007165.3.579.2.25105-05-0732Nkxgnrn32689540 2.16.840.1.599863.3.579.2.40558-19-7905Amluqet34552750 2.16.840.1.085898.3.579.2.94918-77-5769Ntsqjab29450513 2.16.840.1.092316.3.579.2.59445-93-5384Wcpypbq25414612 2.16.840.1.428471.3.579.2.47647-06-6351Sjeikuo10622580 2.16.840.1.930329.3.579.2.99425-42-6867Ectrxpw21826812 2.16.840.1.957543.3.579.2.07995-50-6409Iujswmp03039871 2.16.840.1.225961.3.579.2.26648-27-9563Xkbkjph81524589 2.16.840.1.972007.3.579.2.00007-42-0321Lyqsdkg51174833 2.16.840.1.253020.3.579.2.14722-00-1385Jdtlbzi10357166 2.16.840.1.835959.3.579.2.97332-22-9469Zqwltjl89517444 2.16.840.1.778848.3.579.2.302614-46-7643Rdzohet53269509 2.16.840.1.676324.3.579.2.08653-06-7604Aqocxha27614492 2.16.840.1.002232.3.579.2.95138-66-0706Acyodtq47207126 2.16.840.1.437327.3.579.2.84492-19-7031Naxtnky37272238 2.16.840.1.135086.3.579.2.063Lrmwjkz49618289 2.16.840.1.207752.3.579.2.243 UnknownHCAP/HFA/FAP Abtvah092-17-8991 h4w86342-a3q9-4725-d414-s463x2449005 Qvcvqos38400741 2.16.840.1.661865.3.579.2.825Yzbyles39693802 2.840.1.769358.3.579.2.531 Social History DateTypeDetailFacilityStart: 08-14-2020 End: 89-40-1809Yipjzmn smoking status NHISNever smokerOhioHealthStart: 08-14-2020 End: 54-48-6206Susosim use and exposureNever usedOhioHealthStart: 08-14-2020 End: 38-94-3411Zsjxmeq intakeLifetime non-drinker (finding)[facility]HealthStart: 08-14-2020 End: 84-10-6202Uaammgl SDOH Alcohol Cksfwdbqx7KzzrObyiwpWfnkq: 09-63-8723Iyb Assigned At BirthNot on fileOhioHealthStart: 03-20-2022 End: 23-44-8584Tllcolgc to SARS-CoV-2 (event)Not sureOhioHealthStart: 11-30-2022 Tobacco smoking statusNeverOhio State Health Systemtart: 09-23-2020 End: 89-39-6289Rwp [facility]: 04-02-2022 End: 50-01-2265Otnupxu intakeCurrent drinker of alcohol (finding)[facility] Start: 56-43-5639Ccxajjm CommentOccasional drinks. Not very often.[facility] Start: 28-33-4276Jkaeqyv CommentsociallyCleveland ClinicStart: 09-23-2020 End: 67-04-4550Mgdqbju of Social functionOhioHealthHow often to you have a drink containing alcohol?NeverOhioHealthStart: 04-27-5605Qqqfso identityIdentifies as female gender (finding)[facility] SystemStart: 68-35-5485Espulf orientation Heterosexual (finding)[facility] SystemSexual OrientationMain Campus Medical Center Start: 79-33-9898CsbSukvul (finding)[facility] Systemtart: 99-29-4899Ifa Assigned At [facility] HospitalTobacc smoking status NHISTobacco smoking consumption unknownNOMS Healthcare Medical Equipment Procedure CodeEquipment CodeEquipment Original TextEquipment IdentifierDatesCath 2.5in Expansion On-Q Silversoaker - [id number]: 13-95-9824Dih 4ml Vh S/D Tisseel - [id number]: 56-41-9826Kkoz 600ml Dual On-Q Idxqex-I-Fisz - [id number]_mcuIzriy: 21-44-9867Vukcwks 3 X 4in Adhesion Tc 7 Interceed - [id number]_uljTgzpj: 44-78-5147Coui 5in Expansion On-Q Silversoaker - [id number] ()[id number], [id number]_imp, [id number]_imp FDAStart: 87-31-7989Dogtgrc 5 X 6in Adhesion Tc 7 Interceed - [id number] ()[id number])[id number], 2198912_imp FDAStart: 34-41-5832Kaeb 600ml Dual On-Q Gczfgg-G-Ncxq - [id number]_wglNxqif: 09-12-2024 Functional Status NoesOzavixtrqrBxqzyrYcptlnij50-22-0343Tbnaxtcvij StatusN/[facility]05-14-2025Functional StatusN/[facility] 85-97-3925Yzsepqcntg StatusN/[facility]09-16-2024Functional StatusN/[facility]03-30-2024Functional Status N/[facility]03-06-2024Functional StatusN/[facility]12-14-2023Functional StatusN/[facility] 83-24-9422Ahrfcxdqck StatusN/[facility]01-13-2023Functional StatusN/[facility] Izfrwpb46-00-1823Pdsxeqjuln StatusN/[facility] Clinical Notes 12-31-2021 to 05-14-2025 Note Date & XlajDdewSnzrbzvc31-78-9633 History of Present illness Narrative* Connie Cruz, BRANDIE - 05/14/2025 8:40 AM EDT Reason for Appointment: Patient ID: Miladis Cha is a 29 y.o. female who presents for ER Follow-up (Pt was seen on 05/10/2025 at [facility] ER for abdominal/flank pain. ) Patient presents today for Consult appointment. MEDICATIONS Current Outpatient Medications Medication Instructions Progesterone 200 mg, Vaginal, Nightly, Insert suppository vaginally every night at bedtime until 12weeks gestation ALLERGIES Allergies Allergen Reactions Sulfamethoxazole-Trimethoprim Other Reaction(s): hives PROBLEMS Active Ambulatory Problems Diagnosis Date Noted No Active Ambulatory Problems Resolved Ambulatory Problems Diagnosis Date Noted No Resolved Ambulatory Problems Past Medical History: Diagnosis Date Miscarriage ([facility]) 07/23/2023 HISTORY PAST MEDICAL HISTORY SOCIAL HISTORY Past Medical History: Diagnosis Date Miscarriage ([facility]) 07/23/2023 Social History Tobacco Use Smoking status: Not on file Smokeless tobacco: Not on file Substance Use Topics Alcohol use: Not on file Drug use: Not on file FAMILY HISTORY No family history on file. SURGICAL HISTORY Past Surgical History: Procedure Laterality Date DILATION AND CURETTAGE OF UTERUS 07/23/2023 REVIEW OF SYSTEMS Review of Systems: Review of Systems Constitutional: Negative. HENT: Negative. Eyes: Negative. Respiratory: Negative. Cardiovascular: Negative. Gastrointestinal: Negative. Genitourinary: Negative. Musculoskeletal: Negative. Skin: Negative. Neurological: Negative. All other systems reviewed and are negative. Hematological: Negative. Endocrine: Negative. Allergic/Immunologic: Negative. OBJECTIVE Objective: Physical Exam Constitutional: Appearance: Normal appearance. She is well-developed. Cardiovascular: Rate and Rhythm: Normal rate and regular rhythm. Pulmonary: Effort: Pulmonary effort is normal. Breath sounds: Normal breath sounds. Abdominal: General: Bowel sounds are normal. There is no distension. Palpations: Abdomen is soft. Tenderness: There is no abdominal tenderness. There is no guarding or rebound. Musculoskeletal: General: No swelling. Normal range of motion. Right lower leg: No edema. Left lower leg: No edema. Neurological: Mental Status: She is alert and oriented to person, place, and time. Skin: General: Skin is warm and dry. Psychiatric: Mood and Affect: Mood normal. Behavior: Behavior normal. Vitals and nursing note reviewed. Exam conducted with a microbiology lab analyst present. Vitals: There is no height or weight on file to calculate BMI. BP: 118/74 Patient's last menstrual period was 04/02/2025 (exact date). ASSESSMENT & PLAN ICD-10-CM 1. History of miscarriage Z87.59 Progesterone 200 MG suppository 2. Threatened miscarriage ([facility]-HCC) O20.0 Patient and spouse present today for ER follow up Yordan for possible ectopic/miscarriage. Patient voiced that levels were in the 800's on and up to 1905 on Wednesday. Discussed ultrasound in 2 weeks. Advised patient that in 2 weeks a heartbeat may not be visualized. Patient to have labs drawn today and will setup for OB intake in 4 weeks. Documented by Connie Cruz LPN on behalf of: Ahsan Mendoza DO documented in this encounterCoxHealthZpfybshsww45-46-3585 Radiology Diagnostic study [facility] [place] [address] Ultrasound Report Signed Patient: Miladis Douhgerty MR#: [id number] : 1995 Acct:[id number] Age/Sex: 29 / F ADM Date: 5 Loc: ER Room: Type: [facility] ER Attending Dr: Ordering Provider: Jurgen Flores DO Date of Service: 05/10/25 US/US OB transvaginal: Abdominal Pain ([id number]) US/US OB <= 14 weeks fetus: . Copies to: Jurgen Flores DO~ US OB <= 14 weeks fetus, US OB transvaginal 05/10/2025 12:06 PM SIGNS AND SYMPTOMS: Lower pelvic pain, nausea and vomiting, positive test COMPARISON: None. TECHNIQUE: Realtime Transvaginal and Transabdominal imaging was performed. Transvaginal imaging wasutilized to better evaluate the ovaries and the endometrial stripe. Grayscale, color scale Doppler,vascular duplex analysis ofthe bilateral ovaries was performed to assess blood flow. FINDINGS: The uterus measures 9.5 x 4 x 9 x 6.7 cm. The uterus is normal in echogenicity. Endometrium: Normal thickness and appearance. The endometrium shows no evidenceof intrauterine . Ovaries: Along the right adnexa there is a thick-walled irregular but predominantly anechoic structure measuring 1.9 x 1.3 x 1.4 cm in greatest dimension. An ectopic is not excluded. Right Ovary measurements: 4.8 x 2.2 x 2.5 cm Left Ovary measurements: 3.0 x 2.7 x 1.8 cm A small amount of free fluid is noted in the cul-de-sac. Vascular duplex analysis of the bilateral ovaries demonstrates normal blood flowwithout evidence ofovarian ischemia. US/US OB <= 14 weeks fetus IMPRESSION: Along the right adnexa there is a thick-walled irregular but predominantly anechoic structure measuring 1.9 x 1.3 x 1.4 cm in greatest dimension. An ectopic is not excluded. A small amount of free fluid is noted in the cul-de-sac. No evidence of intrauterine . No evidence of ovarian torsion. Impression dictated by: Jose Alejandro Toledo M.D. 05/10/2025 12:59 PM Dictation Location: [place] [address] Tech: Julia White Transcribed By: TRICIA 05/10/251258 Dictated By: Jose Alejandro Toledo II, MD 05/10/25 125 Signed By: 05/10/25 125 [facility] Work Phone: 1(698) 611-690509-02-2025 NotePatient Education - Text Urology Hydrodistention of the Bladder, Care After After hydrodistention of the bladder, it is common to have soreness and mild discomfort in your lower belly. It is also common to have: ??? Mild pain when you pass urine. This should stop after a few minutes. This may last for up to a week. ??? A small amount of blood in your urine. Follow these instructions at home: The instructions below may help you care for yourself at home. Your health care provider may give you more instructions. If you have questions, ask your health care provider. Medicines ??? If you were given a sedative during your procedure, do not drive or use machines until your doctor says that it is safe. A sedative is a medicine that helps you relax. ??? Take kuus-npt-shhvmgb and prescription medicines only as told by your health care provider. ??? If you were prescribed antibiotics, take them as told by your doctor. Do not stop taking them even if you start to feel better. Lifestyle ??? Do not smoke or use any products that contain nicotine or tobacco. If you need help quitting, ask your health care provider. Activity ??? Return to your normal activities when your health care provider says that it is safe. ??? You may have to avoid lifting. Ask your health care provider how much you can safely lift. Eating and drinking ??? Follow instructions from your health care provider about what you may eat and drink. ??? Drink enough fluid to keep your urine pale yellow. General instructions ??? Keep all follow-up visits. This is important to get the results of your procedure. Contact a health care provider if: ??? You have blood clots in your urine. ??? You have pus in your urine. ??? You have pain that gets worse or does not get better with medicine. Do this especially for painwhen you urinate. ??? You have difficulty passing urine. ??? You feel like you will vomit or you vomit for more than 2 days after the procedure. ??? You have a fever. Get help right away if: ??? You have very bad pain in your belly. ??? You cannot pass urine. ??? You have chest pain or it is hard to breathe. ??? You get swelling, pain, or both in your lower legs. These symptoms may be an emergency. Get help right away. Call 911. ??? Do not wait to see if the symptoms will go away. ??? Do not drive yourself to the hospital. Summary ??? After this procedure, it is common to have soreness in your lower belly, mild pain when you pass urine, and a small amount of blood in your urine. ??? Return to your normal activities when your health care provider says that it is safe. ??? Contact a health care provider if you have pain that gets worse, have a fever, see blood clots in your urine, or it is difficult pass urine. ??? Get help right away if you have very bad pain in your belly, cannot pass urine, feel it is hardto breathe, or get swelling and pain in the legs. This information is not intended to replace advice given to you by your health care provider. Make sure you discuss any questions you have with your health care provider. Document Revised: 11/24/2022 Document Reviewed: 11/23/2022 e27 Patient Education ? 2023 [employer] 04-03-2025 NoteProgress Note-Physician Patient: MILADIS DOUGHERTY Age: 29 years Sex: Female : 1995 Associated Diagnoses: None Author: Marleen Baker MD Postoperative Information Postoperative disposition: Postoperative disposition: Home. Optimetrix number: Optimetrix number [id number]. Anesthetic utilized: General. Health Status Allergies: Allergic Reactions (Selected) Severity Not Documented Bactrim- Hives. Current medications: (Selected) Inpatient Medications Ordered HYDROmorphone 1 mg/mL injectable solution: 0.4 mg = 0.4 mL, Injection, IV Push, q4min PRN Pain for 5 dose(s), Stop date Limited # of times, Routine, Start date 04/03/25 10:42:00 EDT, 04/03/25 10:42:00 EDT Lactated Ringers IV Ofe 1000 mL 1,000 mL: 1,000 mL, IV, 100 mL/hr, Routine, Start date 04/03/25 10:42:00 EDT, 10 hour(s), Total volume (mL): 1,000, 74 kg, 1.82, m2 Lactated Ringers IV Ofe 1000 mL 1,000 mL: 1,000 mL, IV, 150 mL/hr, Routine, Start date 04/03/25 9:15:00 EDT, 6.7 hour(s), Total volume (mL): 1,000, 74 kg, 1.82, m2 Zofran 4 mg/2 mL Injection: 4 mg = 2 mL, Injection, IV Push, Once PRN Nausea/Vomiting, Routine, Start date 04/03/25 10:42:00 EDT, 04/03/25 10:42:00 EDT oxybutynin 5 mg ER Tab: 5 mg = 1 tab(s), Tab-ER, Oral, Daily, Routine, Start date 04/04/25 9:00:00 EDT, 04/03/25 13:21:00 EDT prochlorperazine 5 mg/mL Inj: 5 mg = 1 mL, Injection, IV Push, Once PRN Nausea/Vomiting, Routine, Start date 04/03/25 10:42:00 EDT Prescriptions Prescribed oxybutynin 5 mg Tab: 5 mg = 1 tab(s), Oral, TID, PRN for urinary discomfort, # 30 tab(s), Refills(s) 1, Pharmacy: [facility]/pharmacy #[id number], 162, cm, 03/27/25 5:54:00 EDT, Height/Length Dosing, 74, kg, 03/27/25 5:54:00 EDT, Weight Dosing, Home Medications (1) Active oxybutynin 5 mg Tab 5 mg = 1 tab(s), PRN, Oral, TID Problem list: All Problems Abnormal mammogram / SNOMED CT 916649593 / Confirmed Allergic rhinitis / SNOMED CT 996861016 / Confirmed Bladder pain / SNOMED CT 4790314183 / Confirmed BMI 28.0-28.9,adult / SNOMED CT 8839981333 / Confirmed Breast discharge / SNOMED CT 622967826 / Confirmed Breast lump or mass / SNOMED CT 848312568 / Confirmed Breast mass / SNOMED CT 622106508 / Confirmed Breast pain, right / SNOMED CT 3424991028 / Confirmed Chest tightness / SNOMED CT 200639401 / Confirmed Chronic female pelvic pain / SNOMED CT 476568998 / Confirmed Diarrhea / SNOMED CT 552791836 / Confirmed Duplicated ureter, right / SNOMED CT 65518267 / Confirmed Dysuria / SNOMED CT 86237838 / Confirmed Fainting episodes / SNOMED CT 531625350 / Confirmed Fatigue / SNOMED CT 130240589 / Confirmed Febrile seizures / SNOMED CT 98698510 / Confirmed Frequent urination / SNOMED CT 654270868 / Confirmed Frequent UTI / SNOMED CT 008673573 / Confirmed Gross hematuria / SNOMED CT 252203444 / Confirmed History of kidney stones / SNOMED CT 4490501373 / Confirmed IBS (irritable bowel syndrome) / SNOMED CT 93341583 / Confirmed Interstitial cystitis / SNOMED CT 7911715760 / Confirmed Irregular menses / SNOMED CT 557X47SA-I789-9A0R-68VN-962A8488JI6M / Confirmed Kidney stone / SNOMED CT 881523966 / Confirmed Left lower quadrant abdominal pain / SNOMED CT 773424713 / Confirmed Lymphadenopathy / SNOMED CT 18139248 / Confirmed Menorrhagia / SNOMED CT 2763393771 / Confirmed Nipple discharge / SNOMED CT 485434698 / Confirmed Other nail disorders / SNOMED CT 9507045012 / Confirmed Over weight / SNOMED CT 429613284 / Confirmed Pelvic congestion syndrome / SNOMED CT 48871297 / Confirmed Serous otitis media / SNOMED CT 214655497 / Confirmed Shortness of breath / SNOMED CT 437106365 / Confirmed SHAE (stress urinary incontinence, female) / SNOMED CT 062160364 / Confirmed Thyromegaly / SNOMED CT 8111138 / Confirmed UTI (urinary tract infection) / SNOMED CT 213393841 / Confirmed Vaginal discharge / SNOMED CT 565072532 / Confirmed Viral syndrome / SNOMED CT 14703574 / Confirmed Vitamin D deficiency / SNOMED CT 11560795 / Confirmed Physical Examination Vital Signs 04/03/2025 13:20 EDT Heart Rate Monitored 70 bpm 04/03/2025 13:20 EDT SpO2 100 % 04/03/2025 13:20 EDT Respiratory Rate Monitored 12 br/min 04/03/2025 13:20 EDT Systolic Blood Pressure 104 mmHg Diastolic Blood Pressure 69 mmHg Mean Arterial Pressure, Cuff 81 mmHg 04/03/2025 13:15 EDT SpO2 98 % 04/03/2025 13:15 EDT Heart Rate Monitored 77 bpm Respiratory Rate Monitored 15 br/min 04/03/2025 13:15 EDT Systolic Blood Pressure 100 mmHg Diastolic Blood Pressure 60 mmHg Mean Arterial Pressure, Cuff 73 mmHg 04/03/2025 13:00 EDT Heart Rate Monitored 80 bpm SpO2 100 % 04/03/2025 13:00 EDT Respiratory Rate Monitored 11 br/min 04/03/2025 13:00 EDT Systolic Blood Pressure 103 mmHg Diastolic Blood Pressure 67 mmHg Mean Arterial Pressure, Cuff 79 mmHg 04/03/2025 12:55 EDT SpO2 100 % 04/03/2025 12:55 EDT Heart Rate Monitored 80 bpm Respiratory Rate Monitored 16 br/min 04/03/2025 12:54 EDT Respiratory Rate M (more content not included)...[facility] on above:Result Comment: Electronically Signed By: Samuel PAGE, Marleen Harrison\.br\Date and Time Signed: 04/03/25 13:26 [id number] NoteHistory and Physical Patient: MILADIS DOUGHERTY Age: 29 years Sex: Female : 1995 Associated Diagnoses: None Author: Sumaya Park MD Preoperative Information Indication for procedure and diagnosis: Interstitial cystitis here for hydrodistention and instillation of bladder cocktail Chief Complaint As above Review of Systems All systems reviewed, negative except as mentioned above Health Status Allergies: Allergic Reactions (Selected) Severity Not Documented Bactrim- Hives. Current medications: (Selected) Inpatient Medications Ordered HYDROmorphone 1 mg/mL injectable solution: 0.4 mg = 0.4 mL, Injection, IV Push, q4min PRN Pain for 5 dose(s), Stop date Limited # of times, Routine, Start date 04/03/25 10:42:00 EDT, 04/03/25 10:42:00 EDT Lactated Ringers IV Ofe 1000 mL 1,000 mL: 1,000 mL, IV, 100 mL/hr, Routine, Start date 04/03/25 10:42:00 EDT, 10 hour(s), Total volume (mL): 1,000, 74 kg, 1.82, m2 Lactated Ringers IV Ofe 1000 mL 1,000 mL: 1,000 mL, IV, 150 mL/hr, Routine, Start date 04/03/25 9:15:00 EDT, 6.7 hour(s), Total volume (mL): 1,000, 74 kg, 1.82, m2 Zofran 4 mg/2 mL Injection: 4 mg = 2 mL, Injection, IV Push, Once PRN Nausea/Vomiting, Routine, Start date 04/03/25 10:42:00 EDT, 04/03/25 10:42:00 EDT cefazolin additive + Sodium Chloride 0.9% intravenous solution 50 mL: 2 gm = 1 EA, Powder-Inj, IV Piggyback, Once, Stop date 04/03/25 10:00:00 EDT, Routine, Start date 04/03/25 10:00:00 EDT, 100 mL/hr, Infuse over 30 minute(s), HOLD if patient has history of anaphylactic allergic reaction to Penicillin. dimethyl sulfoxide 50 mL + sodium bicarbonate 50 mEq + heparin 20,000 unit(s) + triamcinolone 10 mg...: Soln-IRR, Irrigation, Once, Stop date 04/03/25 11:00:00 EDT, Start date 04/03/25 11:00:00 EDT, 1227 mL/hr, Infuse over 5, minute(s), Total Vol (mL): 102.25 prochlorperazine 5 mg/mL Inj: 5 mg = 1 mL, Injection, IV Push, Once PRN Nausea/Vomiting, Routine, Start date 04/03/25 10:42:00 EDT Problem list: All Problems Abnormal mammogram / SNOMED CT 158289493 / Confirmed Allergic rhinitis / SNOMED CT 963420993 / Confirmed Bladder pain / SNOMED CT 6917479807 / Confirmed BMI 28.0-28.9,adult / SNOMED CT 4142836195 / Confirmed Breast discharge / SNOMED CT 749197305 / Confirmed Breast lump or mass / SNOMED CT 072677718 / Confirmed Breast mass / SNOMED CT 395120330 / Confirmed Breast pain, right / SNOMED CT 7497825284 / Confirmed Chest tightness / SNOMED CT 758853316 / Confirmed Chronic female pelvic pain / SNOMED CT 646059502 / Confirmed Diarrhea / SNOMED CT 413151341 / Confirmed Duplicated ureter, right / SNOMED CT 53278122 / Confirmed Dysuria / SNOMED CT 39529708 / Confirmed Fainting episodes / SNOMED CT 011561697 / Confirmed Fatigue / SNOMED CT 668709712 / Confirmed Febrile seizures / SNOMED CT 44673593 / Confirmed Frequent urination / SNOMED CT 052789576 / Confirmed Frequent UTI / SNOMED CT 120267175 / Confirmed Gross hematuria / SNOMED CT 339876134 / Confirmed History of kidney stones / SNOMED CT 8498746275 / Confirmed IBS (irritable bowel syndrome) / SNOMED CT 41936536 / Confirmed Interstitial cystitis / SNOMED CT 0188443096 / Confirmed Irregular menses / SNOMED CT [id number] / Confirmed Kidney stone / SNOMED CT 730600352 / Confirmed Left lower quadrant abdominal pain / SNOMED CT 727941609 / Confirmed Lymphadenopathy / SNOMED CT 25244162 / Confirmed Menorrhagia / SNOMED CT 2799561958 / Confirmed Nipple discharge / SNOMED CT 551970419 / Confirmed Other nail disorders / SNOMED CT 5090388477 / Confirmed Over weight / SNOMED CT 760537526 / Confirmed Pelvic congestion syndrome / SNOMED CT 53579515 / Confirmed Serous otitis media / SNOMED CT 356753410 / Confirmed Shortness of breath / SNOMED CT 260785477 / Confirmed SHAE (stress urinary incontinence, female) / SNOMED CT 360393208 / Confirmed Thyromegaly / SNOMED CT 6471202 / Confirmed UTI (urinary tract infection) / SNOMED CT 578124102 / Confirmed Vaginal discharge / SNOMED CT 439168870 / Confirmed Viral syndrome / SNOMED CT 10141779 / Confirmed Vitamin D deficiency / SNOMED CT 59075339 / Confirmed Resolved: Adult BMI 27.0-27.9 kg/sq m / SNOMED CT 8485990354 Resolved: Adult body mass index 28.0-28.9 / SNOMED CT 7533129243 Resolved: Gilbert syndrome / SNOMED CT 59546599 Resolved: / SNOMED CT 039261197 Canceled: Adult BMI 26.0-26.9 kg/sq m / SNOMED CT 9700987124 Canceled: BMI 25.0-25.9,adult / SNOMED CT 1497690540 Canceled: Fullness of breast / SNOMED CT 142159058 Canceled: Infection following a procedure, superficial incisional surgical site, sequela / SNOMED CT 035742622 Canceled: Mammogram abnormal / SNOMED CT 737149734 Canceled: Overweight (BMI 25.0-29.9) / SNOMED CT 4745807971 Canceled: UTI symptoms / SNOMED CT 574788832 Histories Past Medical History: Active Irregular menses ([id number]) Resolv (more content not included)...[facility]:Result Comment: Electronically Signed By: Xavier PAGE, Sumaya Nguyễn\.br\Date and Time Signed: 04/03/25 12:[id number] NoteProgress Note-Physician Patient: MILADIS DOUGHERTY Age: 29 years Sex: Female : 1995 Associated Diagnoses: None Author: Samuel PAGE, Marleen Harrison Preoperative Information Anesthesia Preop Info: Time patient last ate or drank 04/03/2025 00:00:00. Anesthesia history: Patient history: None. Family history+: None. Anesthesia results: Anesthesia results from flowsheet : Results 03/26/2025 14:10 EDT ECG 12-Lead Signed 03/26/2025 14:10 EDT WBC 8.2 E9/L RBC 5.0 E12/L HGB 14.5 gm/dL Hct 42.9 % MCV 86.4 fL MCH 29.2 pg MCHC 33.8 gm/dL RDW 13.5 % Platelet 190.0 E9/L MPV 9.0 fL Neutro Auto 75.4 % HI Lymph Auto 19.4 % Sumter Auto 4.4 % Eos Auto 0.6 % Basophil Auto 0.2 % Neutro Absolute 6.2 E9/L Lymph Absolute 1.6 E9/L Sumter Absolute 0.4 E9/L Eos Absolute 0.0 E9/L Basophil Absolute 0.0 E9/L Glucose Lvl 81 mg/dL BUN 9 mg/dL Creatinine 0.6 mg/dL eGFR 123 mL/min/1.73 m2 BUN/Creat Ratio 15 Sodium Lvl 138 mmol/L Potassium Lvl 3.4 mmol/L LOW Chloride 105 mmol/L CO2 24 mmol/L AGAP 12 mEq/L Calcium Lvl 9.4 mg/dL UA Spec Desc Clean Catch UA Color Light-Yellow UA Clarity Clear UA Spec Grav 1.022 UA pH 5.5 UA Protein Negative mg/dL UA Glucose Negative mg/dL UA Ketones 1+ mg/dL UA Bili Negative mg/dL UA Blood Trace mg/dL UA Nitrite Negative mg/dL UA Urobilinogen Negative mg/dL UA Leuk Est Negative Familia/uL U beta hCG Ql Negative . Informed consent: Signed by patient. Including risks, benefits, and alternatives related to the: Anesthetic plan, Postoperative pain management plan. Re-evaluation prior to induction: Initial evaluation reviewed: No significant change. Review of Systems Eye: Negative except as documented in history of present illness. Ear/Nose/Mouth/Throat: Negative except as documented in history of present illness. Respiratory: Negative except as documented in history of present illness. Cardiovascular: Negative except as documented in history of present illness. Musculoskeletal: Negative except as documented in history of present illness. Neurologic: Negative except as documented in history of present illness. Health Status Allergies: Allergic Reactions (Selected) Severity Not Documented Bactrim- Hives., Allergies (1) Active Severity Reaction Bactrim hives Current medications: (Selected) Inpatient Medications Ordered Lactated Ringers IV Ofe 1000 mL 1,000 mL: 1,000 mL, IV, 150 mL/hr, Routine, Start date 04/03/25 9:15:00 EDT, 6.7 hour(s), Total volume (mL): 1,000, 74 kg, 1.82, m2 cefazolin additive + Sodium Chloride 0.9% intravenous solution 50 mL: 2 gm = 1 EA, Powder-Inj, IV Piggyback, Once, Stop date 04/03/25 10:00:00 EDT, Routine, Start date 04/03/25 10:00:00 EDT, 100 mL/hr, Infuse over 30 minute(s), HOLD if patient has history of anaphylactic allergic reaction to Penicillin. dimethyl sulfoxide 50 mL + sodium bicarbonate 50 mEq + heparin 20,000 unit(s) + triamcinolone 10 mg...: Soln-IRR, Irrigation, Once, Stop date 04/03/25 11:00:00 EDT, Start date 04/03/25 11:00:00 EDT, 1227 mL/hr, Infuse over 5, minute(s), Total Vol (mL): 102.25, No qualifying data available , Medications (3) Active Scheduled: (2) ceFAZolin + Sodium Chloride 0.9% Minibag 50 mL 2 gm 1 EA, IV Piggyback, Once dimethyl sulfoxide 50 mL + sodium bicarbonate 8.4% 50 mEq + heparin 20,000 unit(s) + triamcinolone 50 mL, Irrigation, Once Continuous: (1) Lactated Ringers 1,000 mL 1,000 mL, IV, 150 mL/hr PRN: (0) Problem list: All Problems Abnormal mammogram / SNOMED CT 422993000 / Confirmed Allergic rhinitis / SNOMED CT 350280869 / Confirmed Bladder pain / SNOMED CT 4987317702 / Confirmed BMI 28.0-28.9,adult / SNOMED CT 5454677575 / Confirmed Breast discharge / SNOMED CT 716657910 / Confirmed Breast lump or mass / SNOMED CT 830315831 / Confirmed Breast mass / SNOMED CT 308013151 / Confirmed Breast pain, right / SNOMED CT 9609516556 / Confirmed Chest tightness / SNOMED CT 936951762 / Confirmed Chronic female pelvic pain / SNOMED CT 969275418 / Confirmed Diarrhea / SNOMED CT 232116055 / Confirmed Duplicated ureter, right / SNOMED CT 41480143 / Confirmed Dysuria / SNOMED CT 37886496 / Confirmed Fainting episodes / SNOMED CT 183316574 / Confirmed Fatigue / SNOMED CT 012251830 / Confirmed Febrile seizures / SNOMED CT 00855754 / Confirmed Frequent urination / SNOMED CT 920456919 / Confirmed Frequent UTI / SNOMED CT 341423326 / Confirmed Gross hematuria / SNOMED CT 517560716 / Confirmed History of kidney stones / SNOMED CT 1313813858 / Confirmed IBS (irritable bowel syndrome) / SNOMED CT 20819173 / Confirmed Interstitial cystitis / SNOMED CT 7250372126 / Confirmed Irregular menses / SNOMED CT [id number] / Confirmed Kidney stone / SNOMED CT 987562738 / Confirmed Left lower quadrant abdominal pain / SNOMED CT 764804369 / Confirmed Lymphadenopathy / SNOMED CT 46129646 / Confirmed Garner (more content not included)...[facility]: Result Comment: Electronically Signed By: Samuel PAGE, Marleen Harrison\.br\Date and Time Signed: 04/03/25 10:42 [id number] NoteProgress Note-Physician Patient: MILADIS DOUGHERTY Age: 29 years Sex: Female : 1995 Associated Diagnoses: None Author: Xavier PAGE, Sumaya Nguyễn Health Status Allergies: Allergic Reactions (Selected) Severity Not Documented Bactrim- Hives., Allergies (1) Active Severity Reaction Bactrim hives Current medications: (Selected) Prescriptions Prescribed hydrOXYzine hydrochloride 25 mg Tab: 25 mg = 1 tab(s), Oral, Bedtime, # 30 tab(s), Refills(s) 11, Pharmacy: [facility]/pharmacy #[id number], 162, cm, 02/08/25 11:05:00 EDT, Height/Length Dosing, 71.7, kg, 02/08/25 11:05:00 EDT, Weight Dosing mirabegron 25 mg oral tablet, extended release: 25 mg = 1 tab(s), Oral, Daily, # 30 tab(s), Refills(s) 11, Pharmacy: [facility]/pharmacy #[id number], 162, cm, 02/08/25 11:05:00 EDT, Height/Length Dosing, 71.7, kg, 02/08/25 11:05:00 EDT, Weight Dosing Impression and Plan 29-year-old female with history of interstitial cystitis here for cystoscopy. 1. High tone pelvic floor dysfunction -noted on exam today, tender levator ani muscles Discussed importance of pelvic floor therapy with biofeedback to help with relaxation which can exacerbate interstitial cystitis symptoms as well as bladder pain. Discussed risk and benefits of management options including formal pelvic floor therapy and medications. Patient opted tried both. Also discussed bojn-ram-xjbruqr adjuncts for pelvic floor massage/trigger point relaxation. - Referral for pelvic floor physical therapy with biofeedback - Will start Valium/baclofen vaginal suppositories, weekly for 2 weeks and once a week for maintenance. Will send to [facility] pharmacy 2. Interstitial cystitis Cystoscopy 02/26/25 - no Hunner's lesions identified. Patient was told she had these in September. Prior temporary relief with hydrodistention and bladder instillation both with pain and frequency. Started hydroxyzine last visit notes he is able to sleep better. Discussed risks/benefits of repeat hydrodistention with instillation of bladder cocktail, potentialfulguration if Hunner's lesions or bleeding is noted after hydrodistention. Patient wishes to proceed. - Will schedule cystoscopy, hydrodistention with instillation of bladder cocktail under anesthesia. -Continue hydroxyzine nightly 3. OAB -declines improvement with Myrbetriq at this time. Is taking this at nighttime as well. Unsure if this or hydroxyzine is helping her sleep. - Recommend taking Myrbetriq in the morning - Continue timed voids and avoiding bladder irritants - [facility] HospitalComment on above:Result Comment: Electronically Signed By: Xavier PAGE, Sumaya Osman.br\Date and Time Signed: 02/26/25 08:[id number] NotePatient Education Cystoscopy ??? Voiding after the procedure: there may be some pain, burning, urgency, frequency and blood tinged urine following the procedure. These symptoms usually resolve within 2-5 days. Drink the amount of fluid it takes to keep the urine pink to yellow or clear in color. Drinking enough water and fluids will help to ease any discomfort after your procedure. ??? If you are having problems that seem out of the ordinary, please call. ??? If unable to contact your physician and you feel it is an emergency, go to the nearest emergency room or call 911 ??? Diet ??? you may resume your normal diet. ??? Activity ??? you may resume your normal activities ??? Call if you have a fever over 100 degrees.[facility] 02-08-20[facility] Hospital Discharge instructions Patient Education 02/08/2025 11:37:13 Cystoscopy Cystoscopy Cystoscopy is a procedure that is used to help diagnose and sometimes treat conditions that affect the lower urinary tract. The lower urinary tract includes the bladder and the urethra. The urethra is the tube that drains urine from the bladder. Cystoscopy is done using a thin, tube-shaped instrument with a light and camera at the end (cystoscope). The cystoscope may be hard or flexible, depending on the goal of the procedure. The cystoscope is inserted through the urethra, into the bladder. Cystoscopy may be recommended if you have: Urinary tract infections that keep coming back. Blood in the urine (hematuria). An inability to control when you urinate (urinary incontinence) or an overactive bladder. Unusual cells found in a urine sample. A blockage in the urethra, such as a urinary stone. Painful urination. An abnormality in the bladder found during an intravenous pyelogram (IVP) or CT scan. Cystoscopy may also be done to remove a sample of tissue to be examined under a microscope (biopsy). Tell a health care provider about: Any allergies you have. All medicines you are taking, including vitamins, herbs, eye drops, creams, and jadp-emv-ryrrjhl medicines. Any problems you or family members have had with anesthetic medicines. Any blood disorders you have. Any surgeries you have had. Any medical conditions you have. Whether you are or may be . What are the risks? Generally, this is a safe procedure. However, problems may occur, including: Infection. Bleeding. Allergic reactions to medicines. Damage to other structures or organs. What happens before the procedure? Medicines Ask your health care provider about: Changing or stopping your regular medicines. This is especially important if you are taking diabetes medicines or blood thinners. Taking medicines such as aspirin and ibuprofen. These medicines can thin your blood. Do not take these medicines unless your health care provider tells you to take them. Taking zqmn-hoq-zuxijkx medicines, vitamins, herbs, and supplements. Tests You may have an exam or testing, such as: X-rays of the bladder, urethra, or kidneys. CT scan of the abdomen or pelvis. Urine tests to check for signs of infection. General instructions Follow instructions from your health care provider about eating or drinking restrictions. Ask your health care provider what steps will be taken to help prevent infection. These steps may include: ?Washing skin with a germ-killing soap. ?Taking antibiotic medicine. Plan to have a responsible adult take you home from the hospital or clinic. What happens during the procedure? You will be given one or more of the following: ?A medicine to help you relax (sedative). ?A medicine to numb the area (local anesthetic). The area around the opening of your urethra will be cleaned. The cystoscope will be passed through your urethra into your bladder. Germ-free (sterile) fluid will flow through the cystoscope to fill your bladder. The fluid will stretch your bladder so that your health care provider can clearly examine your bladder ellis. Your doctor will look at the urethra and bladder. Your doctor may take a biopsy or remove stones. The cystoscope will be removed, and your bladder will be emptied. The procedure may vary among health care providers and hospitals. What can I expect after the procedure? After the procedure, it is common to have: Some soreness or pain in your abdomen and urethra. Urinary symptoms. These include: ?Mild pain or burning when you urinate. Pain should stop within a few minutes after you urinate. This may last for up to 1 week. ?A small amount of blood in your urine for several days. ?Feeling like you need to urinate but producing only a small amount of urine. Follow these instructions at home: Medicines Take dfhm-hit-ktjfhxt and prescription medicines only as told by your health care provider. If you were prescribed an antibiotic medicine, take it as told by your health care provider. Do notstop taking the antibiotic even if you start to feel better. General instructions Return to your normal activities as told by your health care provider. Ask your health care provider what activities are safe for you. If you were given a sedative during the procedure, it can affect you for several hours. Do not drive or operate machinery until your health care provider says that it is safe. Watch for any blood in your urine. If the amount of blood in your urine increases, call your healthcare provider. Follow instructions from your health care provider about eating or drinking restrictions. If a tissue sample was removed for testing (biopsy) during your procedure, it is up to you to get your test results. Ask your health care provider, or the department that is doing the test, when yourresults will be ready. Drink enough fluid to keep your urine pale yellow. Keep all follow-up visits. This is important. Contact a health care provider if: You have pain that gets worse or does not get better with medicine, especially pain when you urinate. You have trouble urinating. You have more blood in your urine. Get help right away if: You have blood clots in your urine. You have abdominal pain. You have a fever or chills. You are unable to urinate. Summary Cystoscopy is a procedure that is used to help diagnose and sometimes treat conditions that affect the lower urinary tract. Cystoscopy is done using a thin, tube-shaped instrument with a light and camera at the end. After the procedure, it is common to have some soreness or pain in your abdomen and urethra. Watch for any blood in your urine. If the amount of blood in your urine increases, call your healthcare provider. If you were prescribed an antibiotic medicine, take it as told by your health care provider. Do notstop taking the antibiotic even if you start to feel better. This information is not intended to replace advice given to you by your health care provider. Make sure you discuss any questions you have with your health care provider. Document Revised: 04/01/2022 Document Reviewed: 02/28/2021 e27 Patient Education [employer]. 02/08/2025 11:25:49 Interstitial Cystitis Interstitial Cystitis Interstitial cystitis is inflammation of the bladder. This condition is also known as painful bladder syndrome. This may cause pain in the bladder area as well as a frequent and urgent need to urinate. The bladder is an organ that stores urine after the urine is made in the kidneys. The severity of interstitial cystitis can vary from person to person. You may have flare-ups, and then your symptoms may go away for a while. For many people, it becomes a long-term (chronic) problem. What are the causes? The cause of this condition is not known. What increases the risk? The following factors may make you more likely to develop this condition: Being female. Having fibromyalgia. Having irritable bowel syndrome (IBS). Having endometriosis. Having chronic fatigue syndrome. This condition may be aggravated by: Stress. Smoking. Spicy foods. What are the signs or symptoms? Symptoms of interstitial cystitis vary, and they can change house attendant time. Symptoms may include: Discomfort or pain in the bladder area, which is in the lower abdomen. Pain can range from mild to severe. The pain may change in intensity as the bladder fills with urine or as it empties. Pain in the pelvic area, between the hip bones. A constant urge to urinate. Frequent urination. Pain during urination. Pain during sex. Blood in the urine. Feeling tired (fatigue). For women, symptoms often get worse during menstruation. How is this diagnosed? This condition is diagnosed based on your symptoms, your medical history, and a physical exam. Yourhealth care provider may need to rule out other conditions and may order other tests, such as: Urine tests. Cystoscopy. For this test, a tool similar to a very thin telescope is used to look into your bladder. Biopsy. This involves taking a sample of tissue from the bladder to be examined under a microscope. How is this treated? There is no cure for this condition, but treatment can help you control your symptoms. Work closelywith your health care provider to find the most effective treatments for you. Treatment options mayinclude: Medicines to relieve pain and reduce how often you feel the need to urinate. This treatment may include: ?A procedure where a small amount of medicine that eases irritation is put inside your bladder through a catheter (bladder instillation). Lifestyle changes, such as changing your diet or taking steps to control stress. Physical therapy. This may include: ?Exercises to help relax the pelvic floor muscles. ?Massage to relax tight muscles (myofascial release). Learning ways to control when you urinate (bladder training). Using a device that provides electrical stimulation to your nerves, which can relieve pain (neuromodulation therapy). The device is placed on your back, where it blocks the nerves that cause you to feel pain in your bladder area. A procedure that stretches your bladder by filling it with air or fluid (hydrodistention). Surgery. This is rare. It is only done for extreme cases, if other treatments do not help. Follow these instructions at home: Lifestyle Learn and practice relaxation techniques, such as deep breathing and muscle relaxation. Get care for your body and mental well-being, such as: ?Cognitive behavioral therapy (CBT). This therapy changes the way you think or act in response to different situations. This may improve how you feel. ?Seeing a mental health therapist to evaluate and treat depression, if necessary. Work with your health care provider on other ways to manage pain. Acupuncture may be helpful. Avoid drinking alcohol. Do not use any products that contain nicotine or tobacco. These products include cigarettes, chewing tobacco, and vaping devices, such as e-cigarettes. If you need help quitting, ask your health careprovider. Eating and drinking Make dietary changes as recommended by your health care provider. You may need to avoid: ?Spicy foods. ?Foods that contain a lot of potassium. Limit your intake of drinks that increase your urge to urinate. These include alcohol and caffeinated drinks like soda, coffee, and tea. Bladder training Use bladder training techniques as directed. Techniques may include: ?Urinating at scheduled times. ?Training yourself to delay urination. Keep a bladder diary. ?Write down the times you urinate and any symptoms that you have. This can help you find out which foods, liquids, or activities make your symptoms worse. ?Use your bladder diary to schedule bathroom trips. If you are away from home, plan to be near a bathroom at each of your scheduled times. Make sure that you urinate just before you leave the house and just before you go to bed. General instructions Take yajx-jrp-bzmbijz and prescription medicines only as told by your health care provider. Try a warm or cool compress over your bladder for comfort. Avoid wearing tight clothing. Do exercises to relax your pelvic floor muscles as told by your physical therapist. Keep all follow-up visits. This is important. Where to find more information To find more information or a support group near you, visit: [facility]: urologyhealth.org Interstitial Cystitis Association: ichelp.org Contact a health care provider if you have: Symptoms that do not get better with treatment. Pain or discomfort that gets worse. More frequent urges to urinate. A fever. Get help right away if: You have no control over when you urinate. Summary Interstitial cystitis is inflammation of the bladder. This condition may cause pain in the bladder area as well as a frequent and urgent need to urinate. You may have flare-ups of the condition, and then it may go away for a while. For many people, it becomes a long-term (chronic) problem. There is no cure for interstitial cystitis, but treatment methods are available to control your symptoms. This information is not intended to replace advice given to you by your health care provider. Make sure you discuss any questions you have with your health care provider. Document Revised: 02/15/2021 Document Reviewed: 02/21/2021 e27 Patient Education 2023 [employer]. Follow Up Care 01/05/2025 14:17:02 With:Xavier PAGE, RONI Cole, [facility] Address: When: Unknown [facility] 07-10-2025 NotePatient Education Urology Cystoscopy Cystoscopy is a procedure that is used to help diagnose and sometimes treat conditions that affect the lower urinary tract. The lower urinary tract includes the bladder and the urethra. The urethra is the tube that drains urine from the bladder. Cystoscopy is done using a thin, tube-shaped instrument with a light and camera at the end (cystoscope). The cystoscope may be hard or flexible, depending on the goal of the procedure. The cystoscope is inserted through the urethra, into the bladder. Cystoscopy may be recommended if you have: ??? Urinary tract infections that keep coming back. ??? Blood in the urine (hematuria). ??? An inability to control when you urinate (urinary incontinence) or an overactive bladder. ??? Unusual cells found in a urine sample. ??? A blockage in the urethra, such as a urinary stone. ??? Painful urination. ??? An abnormality in the bladder found during an intravenous pyelogram (IVP) or CT scan. Cystoscopy may also be done to remove a sample of tissue to be examined under a microscope (biopsy). Tell a health care provider about: ??? Any allergies you have. ??? All medicines you are taking, including vitamins, herbs, eye drops, creams, and bvnu-mgk-wsyqmye medicines. ??? Any problems you or family members have had with anesthetic medicines. ??? Any blood disorders you have. ??? Any surgeries you have had. ??? Any medical conditions you have. ??? Whether you are or may be . What are the risks? Generally, this is a safe procedure. However, problems may occur, including: ??? Infection. ??? Bleeding. ??? Allergic reactions to medicines. ??? Damage to other structures or organs. What happens before the procedure? Medicines Ask your health care provider about: ??? Changing or stopping your regular medicines. This is especially important if you are taking diabetes medicines or blood thinners. ??? Taking medicines such as aspirin and ibuprofen. These medicines can thin your blood. Do not take these medicines unless your health care provider tells you to take them. ??? Taking quoj-lpz-pudxluf medicines, vitamins, herbs, and supplements. Tests You may have an exam or testing, such as: ??? X-rays of the bladder, urethra, or kidneys. ??? CT scan of the abdomen or pelvis. ??? Urine tests to check for signs of infection. General instructions ??? Follow instructions from your health care provider about eating or drinking restrictions. ??? Ask your health care provider what steps will be taken to help prevent infection. These steps may include: ? Washing skin with a germ-killing soap. ? Taking antibiotic medicine. ??? Plan to have a responsible adult take you home from the hospital or clinic. What happens during the procedure? You will be given one or more of the following: ? A medicine to help you relax (sedative). ? A medicine to numb the area (local anesthetic). ??? The area around the opening of your urethra will be cleaned. ??? The cystoscope will be passed through your urethra into your bladder. ??? Germ-free (sterile) fluid will flow through the cystoscope to fill your bladder. The fluid willstretch your bladder so that your health care provider can clearly examine your bladder ellis. ??? Your doctor will look at the urethra and bladder. Your doctor may take a biopsy or remove stones. ??? The cystoscope will be removed, and your bladder will be emptied. The procedure may vary among health care providers and hospitals. What can I expect after the procedure? After the procedure, it is common to have: ??? Some soreness or pain in your abdomen and urethra. ??? Urinary symptoms. These include: ? Mild pain or burning when you urinate. Pain should stop within a few minutes after you urinate. This may last for up to 1 week. ? A small amount of blood in your urine for several days. ? Feeling like you need to urinate but producing only a small amount of urine. Follow these instructions at home: Medicines ??? Take shml-zdb-mfedmcz and prescription medicines only as told by your health care provider. ??? If you were prescribed an antibiotic medicine, take it as told by your health care provider. Donot stop taking the antibiotic even if you start to feel better. General instructions ??? Return to your normal activities as told by your health care provider. Ask your health care provider what activities are safe for you. ??? If you were given a sedative during the procedure, it can affect you for several hours. Do not drive or operate machinery until your health care provider says that it is safe. ??? Watch for any blood in your urine. If the amount of blood in your urine increases, call your health care provider. ??? Follow instructions from your health care provider about eating or drinking restrictions. ??? If a tissue sample was removed for testing (biopsy) during your (more content not included)...[facility]06-06-2025 Hospital Discharge instructions Patient Education 01/05/2025 16:38:00 Urinary Tract Infection, Adult Urinary Tract Infection, Adult A urinary tract infection (UTI) is an infection of any part of the urinary tract. The urinary tractincludes the kidneys, ureters, bladder, and urethra. These organs make, store, and get rid of urinein the body. An upper UTI affects the ureters and kidneys. A lower UTI affects the bladder and urethra. What are the causes? Most urinary tract infections are caused by bacteria in your genital area around your urethra, where urine leaves your body. These bacteria grow and cause inflammation of your urinary tract. What increases the risk? You are more likely to develop this condition if: You have a urinary catheter that stays in place. You are not able to control when you urinate or have a bowel movement (incontinence). You are female and you: ?Use a spermicide or diaphragm for control. ?Have low estrogen levels. ?Are . You have certain genes that increase your risk. You are sexually active. You take antibiotic medicines. You have a condition that causes your flow of urine to slow down, such as: ?An enlarged prostate, if you are male. ?Blockage in your urethra. ?A kidney stone. ?A nerve condition that affects your bladder control (neurogenic bladder). ?Not getting enough to drink, or not urinating often. You have certain medical conditions, such as: ?Diabetes. ?A weak disease-fighting system (immunesystem). ?Sickle cell disease. ?Gout. ?Spinal cord injury. What are the signs or symptoms? Symptoms of this condition include: Needing to urinate right away (urgency). Frequent urination. This may include small amounts of urine each time you urinate. Pain or burning with urination. Blood in the urine. Urine that smells bad or unusual. Trouble urinating. Cloudy urine. Vaginal discharge, if you are female. Pain in the abdomen or the lower back. You may also have: Vomiting or a decreased appetite. Confusion. Irritability or tiredness. A fever or chills. Diarrhea. The first symptom in older adults may be confusion. In some cases, they may not have any symptoms until the infection has worsened. How is this diagnosed? This condition is diagnosed based on your medical history and a physical exam. You may also have other tests, including: Urine tests. Blood tests. Tests for STIs (sexually transmitted infections). If you have had more than one UTI, a cystoscopy or imaging studies may be done to determine the cause of the infections. How is this treated? Treatment for this condition includes: Antibiotic medicine. Yrpa-plp-zmhpftf medicines to treat discomfort. Drinking enough water to stay hydrated. If you have frequent infections or have other conditions such as a kidney stone, you may need to see a health care provider who specializes in the urinary tract (urologist). In rare cases, urinary tract infections can cause sepsis. Sepsis is a life- threatening condition that occurs when the body responds to an infection. Sepsis is treated in the hospital with IV antibiotics, fluids, and other medicines. Follow these instructions at home: Medicines Take npfc-voe-hwubcdm and prescription medicines only as told by your health care provider. If you were prescribed an antibiotic medicine, take it as told by your health care provider. Do notstop using the antibiotic even if you start to feel better. General instructions Make sure you: ?Empty your bladder often and completely. Do not hold urine for long periods of time. ?Empty your bladder after sex. ?Wipe from front to back after urinating or having a bowel movement if you are female. Use each tissue only one time when you wipe. Drink enough fluid to keep your urine pale yellow. Keep all follow-up visits. This is important. Contact a health care provider if: Your symptoms do not get better after 1 2 days. Your symptoms go away and then return. Get help right away if: You have severe pain in your back or your lower abdomen. You have a fever or chills. You have nausea or vomiting. Summary A urinary tract infection (UTI) is an infection of any part of the urinary tract, which includes the kidneys, ureters, bladder, and urethra. Most urinary tract infections are caused by bacteria in your genital area. Treatment for this condition often includes antibiotic medicines. If you were prescribed an antibiotic medicine, take it as told by your health care provider. Do notstop using the antibiotic even if you start to feel better. Keep all follow-up visits. This is important. This information is not intended to replace advice given to you by your health care provider. Make sure you discuss any questions you have with your health care provider. Document Revised: 02/23/2021 Document Reviewed: 02/28/2021 e27 Patient Education 2023 [employer]. Follow Up Care 01/05/2025 09:04:35 With:Xavier PAGE, RONI Cole, URO Address: When: Unknown Comments:F/u 1 month [facility] [place] 06-06-2025 NotePatient Education Urology Urinary Tract Infection, Adult A urinary tract infection (UTI) is an infection of any part of the urinary tract. The urinary tractincludes the kidneys, ureters, bladder, and urethra. These organs make, store, and get rid of urinein the body. An upper UTI affects the ureters and kidneys. A lower UTI affects the bladder and urethra. What are the causes? Most urinary tract infections are caused by bacteria in your genital area around your urethra, where urine leaves your body. These bacteria grow and cause inflammation of your urinary tract. What increases the risk? You are more likely to develop this condition if: ??? You have a urinary catheter that stays in place. ??? You are not able to control when you urinate or have a bowel movement (incontinence). ??? You are female and you: ? Use a spermicide or diaphragm for control. ? Have low estrogen levels. ? Are . ??? You have certain genes that increase your risk. ??? You are sexually active. ??? You take antibiotic medicines. ??? You have a condition that causes your flow of urine to slow down, such as: ? An enlarged prostate, if you are male. ? Blockage in your urethra. ? A kidney stone. ? A nerve condition that affects your bladder control (neurogenic bladder). ? Not getting enough to drink, or not urinating often. ??? You have certain medical conditions, such as: ? Diabetes. ? A weak disease-fighting system (immunesystem). ? Sickle cell disease. ? Gout. ? Spinal cord injury. What are the signs or symptoms? Symptoms of this condition include: ??? Needing to urinate right away (urgency). ??? Frequent urination. This may include small amounts of urine each time you urinate. ??? Pain or burning with urination. ??? Blood in the urine. ??? Urine that smells bad or unusual. ??? Trouble urinating. ??? Cloudy urine. ??? Vaginal discharge, if you are female. ??? Pain in the abdomen or the lower back. You may also have: ??? Vomiting or a decreased appetite. ??? Confusion. ??? Irritability or tiredness. ??? A fever or chills. ??? Diarrhea. The first symptom in older adults may be confusion. In some cases, they may not have any symptoms until the infection has worsened. How is this diagnosed? This condition is diagnosed based on your medical history and a physical exam. You may also have other tests, including: ??? Urine tests. ??? Blood tests. ??? Tests for STIs (sexually transmitted infections). If you have had more than one UTI, a cystoscopy or imaging studies may be done to determine the cause of the infections. How is this treated? Treatment for this condition includes: ??? Antibiotic medicine. ??? Tboo-dph-fmpqsoj medicines to treat discomfort. ??? Drinking enough water to stay hydrated. If you have frequent infections or have other conditions such as a kidney stone, you may need to see a health care provider who specializes in the urinary tract (urologist). In rare cases, urinary tract infections can cause sepsis. Sepsis is a life- threatening condition that occurs when the body responds to an infection. Sepsis is treated in the hospital with IV antibiotics, fluids, and other medicines. Follow these instructions at home: Medicines ??? Take lryo-xeu-asssnpj and prescription medicines only as told by your health care provider. ??? If you were prescribed an antibiotic medicine, take it as told by your health care provider. Donot stop using the antibiotic even if you start to feel better. General instructions ??? Make sure you: ? Empty your bladder often and completely. Do not hold urine for long periods of time. ? Empty your bladder after sex. ? Wipe from front to back after urinating or having a bowel movement if you are female. Use each tissue only one time when you wipe. ??? Drink enough fluid to keep your urine pale yellow. ??? Keep all follow-up visits. This is important. Contact a health care provider if: ??? Your symptoms do not get better after 1?2 days. ??? Your symptoms go away and then return. Get help right away if: ??? You have severe pain in your back or your lower abdomen. ??? You have a fever or chills. ??? You have nausea or vomiting. Summary ??? A urinary tract infection (UTI) is an infection of any part of the urinary tract, which includes the kidneys, ureters, bladder, and urethra. ??? Most urinary tract infections are caused by bacteria in your genital area. ??? Treatment for this condition often includes antibiotic medicines. ??? If you were prescribed an antibiotic medicine, take it as told by your health care provider. Donot stop using the antibiotic even if you start to feel better. ??? Keep all follow-up visits. This is important. This information is not intended to replace advice given to you by your health care provider. Make sure you discuss any question (more content not included)... [facility]06-05-2025 Hospital Discharge instructions Patient Education 01/03/2025 22:18:38 Urinary Tract Infection, Adult, Zmaz-ca-Rayb Urinary Tract Infection, Adult A urinary tract infection (UTI) is an infection of any part of the urinary tract. The urinary tractincludes: The kidneys. The ureters. The bladder. The urethra. These organs make, store, and get rid of pee (urine) in the body. What are the causes? This infection is caused by germs (bacteria) in your genital area. These germs grow and cause swelling (inflammation) of your urinary tract. What increases the risk? The following factors may make you more likely to develop this condition: Using a small, thin tube (catheter) to drain pee. Not being able to control when you pee or poop (incontinence). Being female. If you are female, these things can increase the risk: ?Using these methods to prevent : ?A medicine that kills sperm (spermicide). ?A device that blocks sperm (diaphragm). ?Having low levels of a female hormone (estrogen). ?Being . You are more likely to develop this condition if: You have genes that add to your risk. You are sexually active. You take antibiotic medicines. You have trouble peeing because of: ?A prostate that is bigger than normal, if you are male. ?A blockage in the part of your body that drains pee from the bladder. ?A kidney stone. ?A nerve condition that affects your bladder. ?Not getting enough to drink. ?Not peeing often enough. You have other conditions, such as: ?Diabetes. ?A weak disease-fighting system (immune system). ?Sickle cell disease. ?Gout. ?Injury of the spine. What are the signs or symptoms? Symptoms of this condition include: Needing to pee right away. Peeing small amounts often. Pain or burning when peeing. Blood in the pee. Pee that smells bad or not like normal. Trouble peeing. Pee that is cloudy. Fluid coming from the vagina, if you are female. Pain in the belly or lower back. Other symptoms include: Vomiting. Not feeling hungry. Feeling mixed up (confused). This may be the first symptom in older adults. Being tired and grouchy (irritable). A fever. Watery poop (diarrhea). How is this treated? Taking antibiotic medicine. Taking other medicines. Drinking enough water. In some cases, you may need to see a specialist. Follow these instructions at home: Medicines Take vqlm-iul-kdgzaoo and prescription medicines only as told by your doctor. If you were prescribed an antibiotic medicine, take it as told by your doctor. Do not stop taking it even if you start to feel better. General instructions Make sure you: ?Pee until your bladder is empty. ?Do not hold pee for a long time. ?Empty your bladder after sex. ?Wipe from front to back after peeing or pooping if you are a female. Use each tissue one time whenyou wipe. Drink enough fluid to keep your pee pale yellow. Keep all follow-up visits. Contact a doctor if: You do not get better after 1 2 days. Your symptoms go away and then come back. Get help right away if: You have very bad back pain. You have very bad pain in your lower belly. You have a fever. You have chills. You feeling like you will vomit or you vomit. Summary A urinary tract infection (UTI) is an infection of any part of the urinary tract. This condition is caused by germs in your genital area. There are many risk factors for a UTI. Treatment includes antibiotic medicines. Drink enough fluid to keep your pee pale yellow. This information is not intended to replace advice given to you by your health care provider. Make sure you discuss any questions you have with your health care provider. Document Revised: 02/23/2021 Document Reviewed: 02/28/2021 e27 Patient Education 2023 [employer]. Follow Up Care 01/03/2025 17:32:13 With:Dia Madsen Address:Unknown When:01/06/2025 21:47:44 Comments:Stop the Keflex and start the Cipro until you complete the course. 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 Please return to the ED for any new or worsening symptoms. [facility] 06-04-2025 NoteED Patient Education Note Obstetrics and Gynecology Urinary Tract Infection, Adult A urinary tract infection (UTI) is an infection of any part of the urinary tract. The urinary tractincludes: ??? The kidneys. ??? The ureters. ??? The bladder. ??? The urethra. These organs make, store, and get rid of pee (urine) in the body. What are the causes? This infection is caused by germs (bacteria) in your genital area. These germs grow and cause swelling (inflammation) of your urinary tract. What increases the risk? The following factors may make you more likely to develop this condition: ??? Using a small, thin tube (catheter) to drain pee. ??? Not being able to control when you pee or poop (incontinence). ??? Being female. If you are female, these things can increase the risk: ? Using these methods to prevent : ? A medicine that kills sperm (spermicide). ? A device that blocks sperm (diaphragm). ? Having low levels of a female hormone (estrogen). ? Being . You are more likely to develop this condition if: ??? You have genes that add to your risk. ??? You are sexually active. ??? You take antibiotic medicines. ??? You have trouble peeing because of: ? A prostate that is bigger than normal, if you are male. ? A blockage in the part of your body that drains pee from the bladder. ? A kidney stone. ? A nerve condition that affects your bladder. ? Not getting enough to drink. ? Not peeing often enough. ??? You have other conditions, such as: ? Diabetes. ? A weak disease-fighting system (immune system). ? Sickle cell disease. ? Gout. ? Injury of the spine. What are the signs or symptoms? Symptoms of this condition include: ??? Needing to pee right away. ??? Peeing small amounts often. ??? Pain or burning when peeing. ??? Blood in the pee. ??? Pee that smells bad or not like normal. ??? Trouble peeing. ??? Pee that is cloudy. ??? Fluid coming from the vagina, if you are female. ??? Pain in the belly or lower back. Other symptoms include: ??? Vomiting. ??? Not feeling hungry. ??? Feeling mixed up (confused). This may be the first symptom in older adults. ??? Being tired and grouchy (irritable). ??? A fever. ??? Watery poop (diarrhea). How is this treated? Taking antibiotic medicine. ??? Taking other medicines. ??? Drinking enough water. In some cases, you may need to see a specialist. Follow these instructions at home: Medicines ??? Take voss-vrr-fggugzz and prescription medicines only as told by your doctor. ??? If you were prescribed an antibiotic medicine, take it as told by your doctor. Do not stop taking it even if you start to feel better. General instructions ??? Make sure you: ? Pee until your bladder is empty. ? Do not hold pee for a long time. ? Empty your bladder after sex. ? Wipe from front to back after peeing or pooping if you are a female. Use each tissue one time when you wipe. ??? Drink enough fluid to keep your pee pale yellow. ??? Keep all follow-up visits. Contact a doctor if: ??? You do not get better after 1?2 days. ??? Your symptoms go away and then come back. Get help right away if: ??? You have very bad back pain. ??? You have very bad pain in your lower belly. ??? You have a fever. ??? You have chills. ??? You feeling like you will vomit or you vomit. Summary ??? A urinary tract infection (UTI) is an infection of any part of the urinary tract. ??? This condition is caused by germs in your genital area. ??? There are many risk factors for a UTI. ??? Treatment includes antibiotic medicines. ??? Drink enough fluid to keep your pee pale yellow. This information is not intended to replace advice given to you by your health care provider. Make sure you discuss any questions you have with your health care provider. Document Revised: 02/23/2021 Document Reviewed: 02/28/2021 e27 Patient Education ? 2023 [employer].[facility] 01-03-2025 Evaluation + Plan noteExtracted from:Title:ED NoteAuthor:Louis Santa DODate:01/03/25 Acute pelvic pain (R10.2: Pe lvic and perineal pain) Hematuria (R31.9: Hematuria, unspecified) Orders: ketorolac, 15 mg = 1 mL, Injection, IV Push, Once, Stop date 01/03/25 17:54:00 EDT, STAT, Start date 01/03/25 17:54:00 EDT, 01/03/25 17:54:00 EDT Basic Metabolic Panel CBC w/ Auto Diff CT Abdomen/Pelvis w/ Contrast Addendum by Libby Ham DO on January 03, 2025 21:56:49 EDT Patient's urinalysis does appear consistent with urinary tract infection CT imaging shows no evidence of obstructing stone 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 Discussed findings with patient due to the fact that she is still symptomatic on Keflex we will change her to Cipro as she has been on Keflex twice in addition to Macrobid without any improvement of her symptoms. Patient is to follow-up with urology for further evaluation management. She is return to ED for any new or worsening symptoms. Additional diagnosis: Duplicated right ureter Future Appointments Appointment Date:01/11/2025 07:00:00 AM Scheduled Provider: Location:.[facility] Appointment Type:US Abdominal/Pelvis () Appointment Date:01/15/2025 05:40:00 PM Scheduled Provider:Dia Ware Location:[facility] Appointment Type:FM Open Appointment Date:03/23/2025 08:00:00 AM Scheduled Provider:Mildais Mayberry PA-C Location:[facility] Appointment Type:URO Office Visit Diagnostic Tests Pending * Urine Culture 01/03/25 Future Scheduled Tests Radiology* US Renal 01/11/25 * CT Abdomen/Pelvis w/ Contrast 12/20/24 [facility] [id number] Hospital Discharge instructions Patient Education 12/29/2024 18:43:54 Hematuria, Adult Hematuria, Adult Hematuria is blood in the urine. Blood may be visible in the urine, or it may be identified with a test. This condition can be caused by infections of the bladder, urethra, kidney, or prostate. Otherpossible causes include: Kidney stones. Cancer of the urinary tract. Too much calcium in the urine. Conditions that are passed from parent to child (inherited conditions). Exercise that requires a lot of energy. Infections can usually be treated with medicine, and a kidney stone usually will pass through your urine. If neither of these is the cause of your hematuria, more tests may be needed to identify the cause of your symptoms. It is very important to tell your health care provider about any blood in your urine, even if it ispainless or the blood stops without treatment. Blood in the urine, when it happens and then stops and then happens again, can be a symptom of a very serious condition, including cancer. There is no pain in the initial stages of many urinary cancers. Follow these instructions at home: Medicines Take avvq-hsd-cfkzcmd and prescription medicines only as told by your health care provider. If you were prescribed an antibiotic medicine, take it as told by your health care provider. Do notstop taking the antibiotic even if you start to feel better. Eating and drinking Drink enough fluid to keep your urine pale yellow. It is recommended that you drink 3 4 quarts (2.83.8 L) a day. If you have been diagnosed with an infection, drinking cranberry juice in addition tolarge amounts of water is recommended. Avoid caffeine, tea, and carbonated beverages. These tend to irritate the bladder. Avoid alcohol because it may irritate the prostate (in males). General instructions If you have been diagnosed with a kidney stone, follow your health care provider's instructions about straining your urine to catch the stone. Empty your bladder often. Avoid holding urine for long periods of time. If you are female: ?After a bowel movement, wipe from front to back and use each piece of toilet paper only once. ?Empty your bladder before and after sex. Pay attention to any changes in your symptoms. Tell your health care provider about any changes or any new symptoms. It is up to you to get the results of any tests. Ask your health care provider, or the department that is doing the test, when your results will be ready. Keep all follow-up visits. This is important. Contact a health care provider if: You develop back pain. You have a fever or chills. You have nausea or vomiting. Your symptoms do not improve after 3 days. Your symptoms get worse. Get help right away if: You develop severe vomiting and are unable to take medicine without vomiting. You develop severe pain in your back or abdomen even though you are taking medicine. You pass a large amount of blood in your urine. You pass blood clots in your urine. You feel very weak or like you might faint. You faint. Summary Hematuria is blood in the urine. It has many possible causes. It is very important that you tell your health care provider about any blood in your urine, even ifit is painless or the blood stops without treatment. Take gjhn-wxb-okidoqr and prescription medicines only as told by your health care provider. Drink enough fluid to keep your urine pale yellow. This information is not intended to replace advice given to you by your health care provider. Make sure you discuss any questions you have with your health care provider. Document Revised: 03/19/2021 Document Reviewed: 03/19/2021 e27 Patient Education 2023 [employer]. 12/29/2024 18:43:47 Abdominal Pain, Adult Abdominal Pain, Adult Pain in the abdomen (abdominal pain) can be caused by many things. In most cases, it gets better with no treatment or by being treated at home. But in some cases, it can be serious. Your health care provider will ask questions about your medical history and do a physical exam to try to figure out what is causing your pain. Follow these instructions at home: Medicines Take iqad-yku-srbzbly and prescription medicines only as told by your provider. Do not take medicines that help you poop (laxatives) unless told by your provider. General instructions Watch your condition for any changes. Drink enough fluid to keep your pee (urine) pale yellow. Contact a health care provider if: Your pain changes, gets worse, or lasts longer than expected. You have severe cramping or bloating in your abdomen, or you vomit. Your pain gets worse with meals, after eating, or with certain foods. You are constipated or have diarrhea for more than 2 3 days. You are not hungry, or you lose weight without trying. You have signs of dehydration. These may include: ?Dark pee, very little pee, or no pee. ?Cracked lips or dry mouth. ?Sleepiness or weakness. You have pain when you pee (urinate) or poop. Your abdominal pain wakes you up at night. You have blood in your pee. You have a fever. Get help right away if: You cannot stop vomiting. Your pain is only in one part of the abdomen. Pain on the right side could be caused by appendicitis. You have bloody or black poop (stool), or poop that looks like tar. You have trouble breathing. You have chest pain. These symptoms may be an emergency. Get help right away. Call 911. Do not wait to see if the symptoms will go away. Do not drive yourself to the hospital. This information is not intended to replace advice given to you by your health care provider. Make sure you discuss any questions you have with your health care provider. Document Revised: 05/05/2023 Document Reviewed: 05/05/2023 e27 Patient Education 2023 [employer]. 12/29/2024 18:43:43 Urinary Tract Infection, Adult Urinary Tract Infection, Adult A urinary tract infection (UTI) is an infection of any part of the urinary tract. The urinary tractincludes the kidneys, ureters, bladder, and urethra. These organs make, store, and get rid of urinein the body. An upper UTI affects the ureters and kidneys. A lower UTI affects the bladder and urethra. What are the causes? Most urinary tract infections are caused by bacteria in your genital area around your urethra, where urine leaves your body. These bacteria grow and cause inflammation of your urinary tract. What increases the risk? You are more likely to develop this condition if: You have a urinary catheter that stays in place. You are not able to control when you urinate or have a bowel movement (incontinence). You are female and you: ?Use a spermicide or diaphragm for control. ?Have low estrogen levels. ?Are . You have certain genes that increase your risk. You are sexually active. You take antibiotic medicines. You have a condition that causes your flow of urine to slow down, such as: ?An enlarged prostate, if you are male. ?Blockage in your urethra. ?A kidney stone. ?A nerve condition that affects your bladder control (neurogenic bladder). ?Not getting enough to drink, or not urinating often. You have certain medical conditions, such as: ?Diabetes. ?A weak disease-fighting system (immunesystem). ?Sickle cell disease. ?Gout. ?Spinal cord injury. What are the signs or symptoms? Symptoms of this condition include: Needing to urinate right away (urgency). Frequent urination. This may include small amounts of urine each time you urinate. Pain or burning with urination. Blood in the urine. Urine that smells bad or unusual. Trouble urinating. Cloudy urine. Vaginal discharge, if you are female. Pain in the abdomen or the lower back. You may also have: Vomiting or a decreased appetite. Confusion. Irritability or tiredness. A fever or chills. Diarrhea. The first symptom in older adults may be confusion. In some cases, they may not have any symptoms until the infection has worsened. How is this diagnosed? This condition is diagnosed based on your medical history and a physical exam. You may also have other tests, including: Urine tests. Blood tests. Tests for STIs (sexually transmitted infections). If you have had more than one UTI, a cystoscopy or imaging studies may be done to determine the cause of the infections. How is this treated? Treatment for this condition includes: Antibiotic medicine. Jqpr-eam-iigsjsd medicines to treat discomfort. Drinking enough water to stay hydrated. If you have frequent infections or have other conditions such as a kidney stone, you may need to see a health care provider who specializes in the urinary tract (urologist). In rare cases, urinary tract infections can cause sepsis. Sepsis is a life- threatening condition that occurs when the body responds to an infection. Sepsis is treated in the hospital with IV antibiotics, fluids, and other medicines. Follow these instructions at home: Medicines Take xawi-mhn-dxmfkng and prescription medicines only as told by your health care provider. If you were prescribed an antibiotic medicine, take it as told by your health care provider. Do notstop using the antibiotic even if you start to feel better. General instructions Make sure you: ?Empty your bladder often and completely. Do not hold urine for long periods of time. ?Empty your bladder after sex. ?Wipe from front to back after urinating or having a bowel movement if you are female. Use each tissue only one time when you wipe. Drink enough fluid to keep your urine pale yellow. Keep all follow-up visits. This is important. Contact a health care provider if: Your symptoms do not get better after 1 2 days. Your symptoms go away and then return. Get help right away if: You have severe pain in your back or your lower abdomen. You have a fever or chills. You have nausea or vomiting. Summary A urinary tract infection (UTI) is an infection of any part of the urinary tract, which includes the kidneys, ureters, bladder, and urethra. Most urinary tract infections are caused by bacteria in your genital area. Treatment for this condition often includes antibiotic medicines. If you were prescribed an antibiotic medicine, take it as told by your health care provider. Do notstop using the antibiotic even if you start to feel better. Keep all follow-up visits. This is important. This information is not intended to replace advice given to you by your health care provider. Make sure you discuss any questions you have with your health care provider. Document Revised: 02/23/2021 Document Reviewed: 02/28/2021 e27 Patient Education 2023 [employer]. Follow Up Care 12/21/2024 11:57:47 With:Miladis Mayberry PA-C, PARVIZL Address: When:Within 3 Month(s) [facility] 05-30-2025 NotePatient Education Gastroenterology Abdominal Pain, Adult Pain in the abdomen (abdominal pain) can be caused by many things. In most cases, it gets better with no treatment or by being treated at home. But in some cases, it can be serious. Your health care provider will ask questions about your medical history and do a physical exam to try to figure out what is causing your pain. Follow these instructions at home: Medicines ??? Take vvgd-vop-citnbhy and prescription medicines only as told by your provider. ??? Do not take medicines that help you poop (laxatives) unless told by your provider. General instructions ??? Watch your condition for any changes. ??? Drink enough fluid to keep your pee (urine) pale yellow. Contact a health care provider if: ??? Your pain changes, gets worse, or lasts longer than expected. ??? You have severe cramping or bloating in your abdomen, or you vomit. ??? Your pain gets worse with meals, after eating, or with certain foods. ??? You are constipated or have diarrhea for more than 2?3 days. ??? You are not hungry, or you lose weight without trying. ??? You have signs of dehydration. These may include: ? Dark pee, very little pee, or no pee. ? Cracked lips or dry mouth. ? Sleepiness or weakness. ??? You have pain when you pee (urinate) or poop. ??? Your abdominal pain wakes you up at night. ??? You have blood in your pee. ??? You have a fever. Get help right away if: ??? You cannot stop vomiting. ??? Your pain is only in one part of the abdomen. Pain on the right side could be caused by appendicitis. ??? You have bloody or black poop (stool), or poop that looks like tar. ??? You have trouble breathing. ??? You have chest pain. These symptoms may be an emergency. Get help right away. Call 911. ??? Do not wait to see if the symptoms will go away. ??? Do not drive yourself to the hospital. This information is not intended to replace advice given to you by your health care provider. Make sure you discuss any questions you have with your health care provider. Document Revised: 05/05/2023 Document Reviewed: 05/05/2023 e27 Patient Education ? 2023 [employer]. Obstetrics and Gynecology Urinary Tract Infection, Adult A urinary tract infection (UTI) is an infection of any part of the urinary tract. The urinary tractincludes the kidneys, ureters, bladder, and urethra. These organs make, store, and get rid of urinein the body. An upper UTI affects the ureters and kidneys. A lower UTI affects the bladder and urethra. What are the causes? Most urinary tract infections are caused by bacteria in your genital area around your urethra, where urine leaves your body. These bacteria grow and cause inflammation of your urinary tract. What increases the risk? You are more likely to develop this condition if: ??? You have a urinary catheter that stays in place. ??? You are not able to control when you urinate or have a bowel movement (incontinence). ??? You are female and you: ? Use a spermicide or diaphragm for control. ? Have low estrogen levels. ? Are . ??? You have certain genes that increase your risk. ??? You are sexually active. ??? You take antibiotic medicines. ??? You have a condition that causes your flow of urine to slow down, such as: ? An enlarged prostate, if you are male. ? Blockage in your urethra. ? A kidney stone. ? A nerve condition that affects your bladder control (neurogenic bladder). ? Not getting enough to drink, or not urinating often. ??? You have certain medical conditions, such as: ? Diabetes. ? A weak disease-fighting system (immunesystem). ? Sickle cell disease. ? Gout. ? Spinal cord injury. What are the signs or symptoms? Symptoms of this condition include: ??? Needing to urinate right away (urgency). ??? Frequent urination. This may include small amounts of urine each time you urinate. ??? Pain or burning with urination. ??? Blood in the urine. ??? Urine that smells bad or unusual. ??? Trouble urinating. ??? Cloudy urine. ??? Vaginal discharge, if you are female. ??? Pain in the abdomen or the lower back. You may also have: ??? Vomiting or a decreased appetite. ??? Confusion. ??? Irritability or tiredness. ??? A fever or chills. ??? Diarrhea. The first symptom in older adults may be confusion. In some cases, they may not have any symptoms until the infection has worsened. How is this diagnosed? This condition is diagnosed based on your medical history and a physical exam. You may also have other tests, including: ??? Urine tests. ??? Blood tests. ??? Tests for STIs (sexually transmitted infections). If you have had more than one UTI, a cystoscopy or imaging studies may be done to determine the cause of the infections. How is this treated? Treatment for this condition includes: ??? Antibiotic me (more content not included)...[facility] 12-22-2024 NotePatient Education Gastroenterology Abdominal Bloating When you have abdominal bloating, your abdomen may feel full, tight, or painful. It may also look bigger than normal or swollen (distended). Common causes of abdominal bloating include: ??? Swallowing air. ??? Constipation. ??? Problems digesting food. ??? Eating too much. ??? Irritable bowel syndrome. This is a condition that affects the large intestine. ??? Lactose intolerance. This is an inability to digest lactose, a natural sugar in dairy products. ??? Celiac disease. This is a condition that affects the ability to digest gluten, a protein found in some grains. ??? Gastroparesis. This is a condition that slows down the movement of food in the stomach and small intestine. It is more common in people with diabetes mellitus. ??? Gastroesophageal reflux disease (GERD). This is a condition that makes stomach acid flow back into the esophagus. ??? Urinary retention. This means that the body is holding onto urine, and the bladder cannot be emptied all the way. Follow these instructions at home: Eating and drinking ??? Avoid eating too much. ??? Try not to swallow air while talking or eating. ??? Avoid eating while lying down. ??? Avoid these foods and drinks: ? Foods that cause gas, such as broccoli, cabbage, cauliflower, and baked beans. ? Carbonated drinks. ? Hard candy. ? Chewing gum. Medicines ??? Take uerj-tzt-grcwzxe and prescription medicines only as told by your health care provider. ??? Take probiotic medicines. These medicines contain live bacteria or yeasts that can help digestion. ??? Take coated peppermint oil capsules. General instructions ??? Try to exercise regularly. Exercise may help to relieve bloating that is caused by gas and relieve constipation. ??? Keep all follow-up visits. This is important. Contact a health care provider if: ??? You have nausea and vomiting. ??? You have diarrhea. ??? You have abdominal pain. ??? You have unusual weight loss or weight gain. ??? You have severe pain, and medicines do not help. Get help right away if: ??? You have chest pain. ??? You have trouble breathing. ??? You have shortness of breath. ??? You have trouble urinating. ??? You have darker urine than normal. ??? You have blood in your stools or have dark, tarry stools. These symptoms may represent a serious problem that is an emergency. Do not wait to see if the symptoms will go away. Get medical help right away. Call your local emergency services (911 in the [place] Do not drive yourself to the hospital. Summary ??? Abdominal bloating means that the abdomen is swollen. ??? Common causes of abdominal bloating are swallowing air, constipation, and problems digesting food. ??? Avoid eating too much and avoid swallowing air. ??? Avoid foods that cause gas, carbonated drinks, hard candy, and chewing gum. This information is not intended to replace advice given to you by your health care provider. Make sure you discuss any questions you have with your health care provider. Document Revised: 02/18/2021 Document Reviewed: 02/18/2021 e27 Patient Education ? 2023 [employer]. Urology Dysuria Dysuria is pain or discomfort during urination. The pain or discomfort may be felt in the part of the body that drains urine from the bladder (urethra) or in the surrounding tissue of the genitals. The pain may also be felt in the groin area, lower abdomen, or lower back. You may have to urinate frequently or have the sudden feeling that you have to urinate (urgency). Dysuria can affect anyone, but it is more common in females. Dysuria can be caused by many different things, including: ??? Urinary tract infection. ??? Kidney stones or bladder stones. ??? Certain STIs (sexually transmitted infections), such as chlamydia. ??? Dehydration. ??? Inflammation of the tissues of the vagina. ??? Use of certain medicines. ??? Use of certain soaps or scented products that cause irritation. Follow these instructions at home: Medicines ??? Take oqci-rwq-ckacesp and prescription medicines only as told by your health care provider. ??? If you were prescribed an antibiotic medicine, take it as told by your health care provider. Donot stop taking the antibiotic even if you start to feel better. Eating and drinking ??? Drink enough fluid to keep your urine pale yellow. ??? Avoid caffeinated beverages, tea, and alcohol. These beverages can irritate the bladder and make dysuria worse. In males, alcohol may irritate the prostate. General instructions ??? Watch your condition for any changes. ??? Urinate often. Avoid holding urine for long periods of time. ??? If you are female, you should wipe from front to back after urinating or having a bowel movement. Use each piece of toilet paper only once. ??? Empty your bladder after sex. ??? Keep all follow-up visits. (more content not included)...[facility]05-21-2025 Evaluation + Plan note Future Scheduled Tests Radiology* CT Abdomen/Pelvis w/ Contrast 12/20/24 [facility] 05-14-2025 Hospital Discharge instructions Patient Education 12/13/2024 16:35:39 Urinary Tract Infection, Adult Urinary Tract Infection, Adult A urinary tract infection (UTI) is an infection of any part of the urinary tract. The urinary tractincludes the kidneys, ureters, bladder, and urethra. These organs make, store, and get rid of urinein the body. An upper UTI affects the ureters and kidneys. A lower UTI affects the bladder and urethra. What are the causes? Most urinary tract infections are caused by bacteria in your genital area around your urethra, where urine leaves your body. These bacteria grow and cause inflammation of your urinary tract. What increases the risk? You are more likely to develop this condition if: You have a urinary catheter that stays in place. You are not able to control when you urinate or have a bowel movement (incontinence). You are female and you: ?Use a spermicide or diaphragm for control. ?Have low estrogen levels. ?Are . You have certain genes that increase your risk. You are sexually active. You take antibiotic medicines. You have a condition that causes your flow of urine to slow down, such as: ?An enlarged prostate, if you are male. ?Blockage in your urethra. ?A kidney stone. ?A nerve condition that affects your bladder control (neurogenic bladder). ?Not getting enough to drink, or not urinating often. You have certain medical conditions, such as: ?Diabetes. ?A weak disease-fighting system (immunesystem). ?Sickle cell disease. ?Gout. ?Spinal cord injury. What are the signs or symptoms? Symptoms of this condition include: Needing to urinate right away (urgency). Frequent urination. This may include small amounts of urine each time you urinate. Pain or burning with urination. Blood in the urine. Urine that smells bad or unusual. Trouble urinating. Cloudy urine. Vaginal discharge, if you are female. Pain in the abdomen or the lower back. You may also have: Vomiting or a decreased appetite. Confusion. Irritability or tiredness. A fever or chills. Diarrhea. The first symptom in older adults may be confusion. In some cases, they may not have any symptoms until the infection has worsened. How is this diagnosed? This condition is diagnosed based on your medical history and a physical exam. You may also have other tests, including: Urine tests. Blood tests. Tests for STIs (sexually transmitted infections). If you have had more than one UTI, a cystoscopy or imaging studies may be done to determine the cause of the infections. How is this treated? Treatment for this condition includes: Antibiotic medicine. Bxgz-fwk-jfqazlw medicines to treat discomfort. Drinking enough water to stay hydrated. If you have frequent infections or have other conditions such as a kidney stone, you may need to see a health care provider who specializes in the urinary tract (urologist). In rare cases, urinary tract infections can cause sepsis. Sepsis is a life- threatening condition that occurs when the body responds to an infection. Sepsis is treated in the hospital with IV antibiotics, fluids, and other medicines. Follow these instructions at home: Medicines Take cxdj-ikn-rxhbsqu and prescription medicines only as told by your health care provider. If you were prescribed an antibiotic medicine, take it as told by your health care provider. Do notstop using the antibiotic even if you start to feel better. General instructions Make sure you: ?Empty your bladder often and completely. Do not hold urine for long periods of time. ?Empty your bladder after sex. ?Wipe from front to back after urinating or having a bowel movement if you are female. Use each tissue only one time when you wipe. Drink enough fluid to keep your urine pale yellow. Keep all follow-up visits. This is important. Contact a health care provider if: Your symptoms do not get better after 1 2 days. Your symptoms go away and then return. Get help right away if: You have severe pain in your back or your lower abdomen. You have a fever or chills. You have nausea or vomiting. Summary A urinary tract infection (UTI) is an infection of any part of the urinary tract, which includes the kidneys, ureters, bladder, and urethra. Most urinary tract infections are caused by bacteria in your genital area. Treatment for this condition often includes antibiotic medicines. If you were prescribed an antibiotic medicine, take it as told by your health care provider. Do notstop using the antibiotic even if you start to feel better. Keep all follow-up visits. This is important. This information is not intended to replace advice given to you by your health care provider. Make sure you discuss any questions you have with your health care provider. Document Revised: 02/23/2021 Document Reviewed: 02/28/2021 [employer] Patient Education 2023 [employer]. Follow Up Care 12/13/2024 12:12:46 With:Thania OWENS Address: [address], [place] [address]- Business (1) When:12/16/2024 16:29:17 Comments:Call the office of your primary care doctor to arrange for follow-up within the above-stated timeframe. Follow-up with your primary care doctor about this ED visit. You should review your labs, imaging, and diagnoses from this ED visit with your primary care physician. There are occasionally non-emergent findings that require additional follow-up after your ED visit. If you were prescribed medications you should discuss possible side-effects and drug interactions with your pharmacist. Call 911 or go to the nearest Emergency Department if you develop any new or worsening symptoms.Seek immediate medical attention if you develop:worsening abdominal pain, new or worsening nausea, new or worsening vomiting, new or worsening diarrhea, chest pain, shortness of breath, pain with urination, problems urinating, fever, chills, weakness, or any new or worsening symptoms. [facility] [id number] NoteED Patient Education Note Obstetrics and Gynecology Urinary Tract Infection, Adult A urinary tract infection (UTI) is an infection of any part of the urinary tract. The urinary tractincludes the kidneys, ureters, bladder, and urethra. These organs make, store, and get rid of urinein the body. An upper UTI affects the ureters and kidneys. A lower UTI affects the bladder and urethra. What are the causes? Most urinary tract infections are caused by bacteria in your genital area around your urethra, where urine leaves your body. These bacteria grow and cause inflammation of your urinary tract. What increases the risk? You are more likely to develop this condition if: ??? You have a urinary catheter that stays in place. ??? You are not able to control when you urinate or have a bowel movement (incontinence). ??? You are female and you: ? Use a spermicide or diaphragm for control. ? Have low estrogen levels. ? Are . ??? You have certain genes that increase your risk. ??? You are sexually active. ??? You take antibiotic medicines. ??? You have a condition that causes your flow of urine to slow down, such as: ? An enlarged prostate, if you are male. ? Blockage in your urethra. ? A kidney stone. ? A nerve condition that affects your bladder control (neurogenic bladder). ? Not getting enough to drink, or not urinating often. ??? You have certain medical conditions, such as: ? Diabetes. ? A weak disease-fighting system (immunesystem). ? Sickle cell disease. ? Gout. ? Spinal cord injury. What are the signs or symptoms? Symptoms of this condition include: ??? Needing to urinate right away (urgency). ??? Frequent urination. This may include small amounts of urine each time you urinate. ??? Pain or burning with urination. ??? Blood in the urine. ??? Urine that smells bad or unusual. ??? Trouble urinating. ??? Cloudy urine. ??? Vaginal discharge, if you are female. ??? Pain in the abdomen or the lower back. You may also have: ??? Vomiting or a decreased appetite. ??? Confusion. ??? Irritability or tiredness. ??? A fever or chills. ??? Diarrhea. The first symptom in older adults may be confusion. In some cases, they may not have any symptoms until the infection has worsened. How is this diagnosed? This condition is diagnosed based on your medical history and a physical exam. You may also have other tests, including: ??? Urine tests. ??? Blood tests. ??? Tests for STIs (sexually transmitted infections). If you have had more than one UTI, a cystoscopy or imaging studies may be done to determine the cause of the infections. How is this treated? Treatment for this condition includes: ??? Antibiotic medicine. ??? Resw-can-fcxttvy medicines to treat discomfort. ??? Drinking enough water to stay hydrated. If you have frequent infections or have other conditions such as a kidney stone, you may need to see a health care provider who specializes in the urinary tract (urologist). In rare cases, urinary tract infections can cause sepsis. Sepsis is a life- threatening condition that occurs when the body responds to an infection. Sepsis is treated in the hospital with IV antibiotics, fluids, and other medicines. Follow these instructions at home: Medicines ??? Take kaaa-pcd-zbyrdes and prescription medicines only as told by your health care provider. ??? If you were prescribed an antibiotic medicine, take it as told by your health care provider. Donot stop using the antibiotic even if you start to feel better. General instructions ??? Make sure you: ? Empty your bladder often and completely. Do not hold urine for long periods of time. ? Empty your bladder after sex. ? Wipe from front to back after urinating or having a bowel movement if you are female. Use each tissue only one time when you wipe. ??? Drink enough fluid to keep your urine pale yellow. ??? Keep all follow-up visits. This is important. Contact a health care provider if: ??? Your symptoms do not get better after 1?2 days. ??? Your symptoms go away and then return. Get help right away if: ??? You have severe pain in your back or your lower abdomen. ??? You have a fever or chills. ??? You have nausea or vomiting. Summary ??? A urinary tract infection (UTI) is an infection of any part of the urinary tract, which includes the kidneys, ureters, bladder, and urethra. ??? Most urinary tract infections are caused by bacteria in your genital area. ??? Treatment for this condition often includes antibiotic medicines. ??? If you were prescribed an antibiotic medicine, take it as told by your health care provider. Donot stop using the antibiotic even if you start to feel better. ??? Keep all follow-up visits. This is important. This information is not intended to replace advice given to you by your health care provider. Make barbara (more content not included)...[facility]05-14-2025 Evaluation + Plan note Diagnostic Tests Pending * Urine Culture 12/13/24 [facility] 03-07-2025 Telephone encounter Note* Telephone Encounter - Paul Mcallister RN - 10/06/2024 2:30 PM EST Switch to keflex and add pyridium per Dr. Garibay. Ideally repeat urine culture. Called and spoke to patient. Reviewed above recommendations. Per patient there is a hospital in [facility] where she lives called [facility] that this office has sent lab orders to before. This RN will send urine culture order to hospital and [employer] message with information once that is completed. Preferred pharmacy confirmed. Advised patient that she should follow up in office next week if symptoms are still not improving. Reviewed ER precautions for fever. Patient verbalizes understanding.Patient denies having any other questions/concerns/needs at this time. Patient encouraged to call office back should this change. [id number] Miscellaneous Notes* Telephone Encounter - Paul Mcallister RN - 10/06/2024 2:30 PM EST Switch to keflex and add pyridium per Dr. Garibay. Ideally repeat urine culture. Called and spoke to patient. Reviewed above recommendations. Per patient there is a hospital in [facility] where she lives called [facility] that this office has sent lab orders to before. This RN will send urine culture order to hospital and [employer] message with information once that is completed. Preferred pharmacy confirmed. Advised patient that she should follow up in office next week if symptoms are still not improving. Reviewed ER precautions for fever. Patient verbalizes understanding.Patient denies having any other questions/concerns/needs at this time. Patient encouraged to call office back should this change. * Telephone Encounter - Paul Mcallister RN - 10/06/2024 12:37 PM EST Patient called into office and spoke to this RN. Recently prescribed macrobid for a UTI which she has been taking for a couple of days. Feels like UTI symptoms are getting worse, also feels flushed. Will discuss with Dr. Garibay and call patient back with recommendations. Patient has taken keflex in the past for UTIs. Message sent to Dr. Garibay at this time. documented in this [id number] Telephone encounter Note* Telephone Encounter - Paul Mcallister RN - 10/06/2024 12:37 PM EST Patient called into office and spoke to this RN. Recently prescribed macrobid for a UTI which she has been taking for a couple of days. Feels like UTI symptoms are getting worse, also feels flushed. Will discuss with Dr. Garibay and call patient back with recommendations. Patient has taken keflex in the past for UTIs. Message sent to Dr. Garibay at this time. [id number] NoteNotify patient she has a UTI. Contact her to treat her with Macrobid 100mg twice daily for 7 days. AUTHENTICATED BY DARLIN ORTEGA, ON 10/02/2024 13:37:49[facility]03-03-2025 History of Present illness Narrative* Darlin Ortega MD - 10/02/2024 1:37 PM EST Notify patient she has a UTI. Contact her to treat her with Macrobid 100mg twice daily for 7 days. * Darlin Ortega MD - 09/28/2024 12:40 PM EST POST-OPERATIVE VISIT Surgery: Robotic Assisted Laparoscopic Excision Of Endometriosis, Chromopertubation,, Cystoscopy, Hydrodistention,, and Hysteroscopy Dilation And Curettage Surgery Date: 09/12/2024 Surgeon: Darlin Ortega MD Subjective Patient ID: Miladis Cha is a 28 y.o. female here for post operative visit, now 16 dayspost. Post-op (Pt presents today for a post op visit. Pt had an excision on 09/12/24. Pt states she is doing well, she got a rash from the surgical glue, but she took it off and it did get better. ) After discussing the use of ambient listening and audio recording in generating medical documentation, the patient verbally consented to use of this technology for today's visit. History of Present Illness The patient presents for a postoperative checkup. She reports overall well-being, with the exception of fatigue, which she attributes to her recent return to work following a one-week hiatus. 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 She has discontinued all pain medications. She continues to experience urinary frequency, although with some improvement. She developed hives, suspected to be a reaction to surgical glue, which have since improved after removal of the glue. She still has a few bumps. She has no history of Vistaril or hydroxyzine use. Her primary objective is to conceive, and she is seeking advice on the appropriate timeline post-surgery. She has not engaged in pelvic floor therapy due to discomfort but is open to the possibility if symptoms recur. She occasionally experiences dyspareunia. She anticipates the need for control to alleviate discomfort. She has alreadyexperienced her first menstrual cycle post-surgery, which was prolonged but managed with pain medica tion. ALLERGIES The patient has an allergic reaction to SURGICAL GLUE. Reviewed by Provider: Tobacco Allergies Meds Problems Med Hx Surg Hx Fam Hx All past medical, surgical, social, family, allergy, and medication histories have been reviewed and updated in [facility] charting. Objective BP 100/70 (BP Location: Left arm, Patient Position: Sitting) Pulse 89 Ht 5' 3 Wt 72.1 kg (159 lb) LMP 07/14/2024 BMI 28.17 kg/m Physical Exam: Physical Exam Constitutional: Appearance: Normal appearance. She is well-developed. Interventions: Face mask in place. HENT: Head: Normocephalic and atraumatic. Cardiovascular: Rate and Rhythm: Normal rate. Pulmonary: Effort: Pulmonary effort is normal. Abdominal: General: A surgical scar is present. Palpations: Abdomen is soft. Tenderness: There is no abdominal tenderness. Comments: Incisions healing well. Musculoskeletal: Cervical back: Normal range of motion and neck supple. Neurological: Mental Status: She is alert and oriented to person, place, and time. Skin: General: Skin is warm and dry. Psychiatric: Mood and Affect: Mood and affect normal. Thought Content: Thought content normal. Judgment: Judgment normal. Vitals and nursing note reviewed. Physical Exam Results Assessment & Plan Assessment & Plan 1. Postoperative status. She is currently 16 days post-surgery and experiencing fatigue, which is attributed to the healing process. Her incisions are healing well, with no signs of infection. The presence of a small fibroidwas noted, but it is not causing any complications. The bowel was found to be adhered to the ovary,necessitating resection and subsequent pathology examination. Scar tissue prevention material was applied to the operated areas. The internal aspect of the uterus appears healthy. She was informed that she may continue to experience menstrual pain due to uterine contractions. She was advised to take Aleve twice daily, once in the morning and once in the evening, to manage her fatigue. She was also advised to apply Vaseline or ScarAway ointment to her incisions to expedite the resolution of lumpiness. She was advised to avoid using surgical glue in future procedures. She was advised to take Aleve a day or two before her menstrual cycle and during the first couple of days of her cycle to alleviate cramping. A urine sample will be collected to rule out a low-grade bladder infection. A prescription for hydroxyzine was provided to be taken at night to manage her hives. If she experiences pain during intercourse, pelvic floor therapy may be considered. She was advised to attempt conception after her next menstrual cycle. Follow-up The patient will follow up in 3 months. PROCEDURE The patient underwent surgery 16 days ago. Assessment and Plan: Problem List Items Addressed This Visit Endometriosis determined by laparoscopy Interstitial cystitis Relevant Medications hydrOXYzine (VISTARIL) 25 MG capsule Other Visit Diagnoses Post-operative state - Primary Relevant Orders Urinalysis (Completed) Urine Aerobic Culture (Completed) Return in about 3 months (around 12/26/2024) for with an [facility]AN. Darlin Ortega MD documented in this [id number] NotePOST-OPERATIVE VISIT Surgery: Robotic Assisted Laparoscopic Excision Of Endometriosis, Chromopertubation,, Cystoscopy, Hydrodistention,, and Hysteroscopy Dilation And Curettage Surgery Date: 09/12/2024 Surgeon: Darlin Ortega MD Subjective Patient ID: Miladis Cha is a 28 y.o. female here for post operative visit, now 16 days post. Post-op (Pt presents today for a post op visit. Pt had an excision on 09/12/24. Pt states she is doing well, she got a rash from the surgical glue, but she took it off and it did get better. ) After discussing the use of ambient listening and audio recording in generating medical documentation, the patient verbally consented to use of this technology for today's visit. History of Present Illness The patient presents for a postoperative checkup. She reports overall well-being, with the exception of fatigue, which she attributes to her recent return to work following a one-week hiatus. 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 She has discontinued all pain medications. She continues to experience urinary frequency, although with some improvement. She developed hives, suspected to be a reaction to surgical glue, which have since improved after removal of the glue. She still has a few bumps. She has no history of Vistaril or hydroxyzine use. Her primary objective is to conceive, and she is seeking advice on the appropriate timeline post-surgery. She has not engaged in pelvic floor therapy due to discomfort but is open to the possibility if symptoms recur. She occasionally experiences dyspareunia. She anticipates the need for control to alleviate discomfort. She has already experienced her first menstrual cycle post-surgery, which was prolonged but managed with pain medication. ALLERGIES The patient has an allergic reaction to SURGICAL GLUE. Reviewed by Provider: Tobacco Allergies Meds Problems Med Hx Surg Hx Fam Hx All past medical, surgical, social, family, allergy, and medication histories have been reviewed and updated in [facility] charting. Objective BP 100/70 (BP Location: Left arm, Patient Position: Sitting) Pulse 89 Ht 5' 3 Wt 72.1 kg (159 lb) LMP 07/14/2024 BMI 28.17 kg/m Physical Exam: Physical Exam Constitutional: Appearance: Normal appearance. She is well-developed. Interventions: Face mask in place. HENT: Head: Normocephalic and atraumatic. Cardiovascular: Rate and Rhythm: Normal rate. Pulmonary: Effort: Pulmonary effort is normal. Abdominal: General: A surgical scar is present. Palpations: Abdomen is soft. Tenderness: There is no abdominal tenderness. Comments: Incisions healing well. Musculoskeletal: Cervical back: Normal range of motion and neck supple. Neurological: Mental Status: She is alert and oriented to person, place, and time. Skin: General: Skin is warm and dry. Psychiatric: Mood and Affect: Mood and affect normal. Thought Content: Thought content normal. Judgment: Judgment normal. Vitals and nursing note reviewed. Physical Exam Results Assessment & Plan Assessment & Plan 1. Postoperative status. She is currently 16 days post-surgery and experiencing fatigue, which is attributed to the healing process. Her incisions are healing well, with no signs of infection. The presence of a small fibroid was noted, but it is not causing any complications. The bowel was found to be adhered to the ovary, necessitating resection and subsequent pathology examination. Scar tissue prevention material was applied to the operated areas. The internal aspect of the uterus appears healthy. She was informed that she may continue to experience menstrual pain due to uterine contractions. She was advised to take Aleve twice daily, once in the morning and once in the evening, to manage her fatigue. She was also advised to apply Vaseline or ScarAway ointment to her incisions to expedite the resolution of lumpiness. She was advised to avoid using surgical glue in future procedures. She was advised to take Aleve a day or two before her menstrual cycle and during the first couple of days of her cycle to alleviate cramping. A urine sample will be collected to rule out a low-grade bladder infection. A prescription for hydroxyzine was provided to be taken at night to manage her hives. If she experiences pain during intercourse, pelvic floor therapy may be considered. She was advised to attempt conception after her next menstrual cycle. Follow-up The patient will follow up in 3 months. PROCEDURE The patient underwent surgery 16 days ago. Assessment and Plan: Problem List Items Addressed This Visit Endometriosis determined by laparoscopy Interstitial cystitis Relevant Medications hydrOXYzine (VISTARIL) 25 MG capsule Other Visit Diagnoses Post-operative state - Primary Relevant Orders Urinalysis (Completed) Urin (more content not included)...[facility]02-11-2025 NotePlease notify Miladis Cha that her pathology results were consistent with scar tissue. AUTHENTICATED BY DARLIN ORTEGA ON 09/20/2024 09:11:21[facility] NoteGYNECOLOGY BRIEF POST-OP NOTE Patient Name: Miladis Cha MR #: [id number] ASSESSMENT AND PLAN: S/P robot-assisted surgical procedure Assessment & Plan Miladis Cha is a 28 y.o. female with a [...] this note. After 4:30pm or on weekends, please page *[phone] SUBJECTIVE: The patient reports no acute issues. Pain is moderately controlled, currently using PO pain meds. Denies CP/SOB/fevers/chills/leg pain. Denies nausea or vomiting. Tolerating a ice chips diet. voiding spontaneously OBJECTIVE: Temp: [97.5 degrees F (36.4 degrees C)-98.4 degrees F (36.9 degrees C)] 97.7 degrees F (36.5 degrees C) Heart Rate: [70-93] 93 Resp: [12-16] 14 BP: (91-103)/(62-75) 97/69 No intake/output data recorded. GEN: NAD, A&Ox3 Head: normocephalic Cardiac: Reg rate. No peripheral edema. Pulm: respiratory effort normal Abdomen: soft, ATTP, non-distended, no rebound or guarding Ext: Bilat LE non-tender, no edema. SCDs in place. Incision: clean/dry/intact, exofin and pain ball in place MSK: FROM x 4. Neuro: Intact, interactive, appropriate. Current medications: acetaminophen 975 mg Oral Once Or acetaminophen 1,000 mg Intravenous Once gabapentin 100 mg Oral TID Followed by [START ON 09/15/2024] gabapentin 300 mg Oral TID scopolamine 1 patch Transdermal Once sodium chloride (PF) 5 mL Intravenous Q8H VERONICA Labs: Lab Results Component Value Date WBC 6.44 09/01/2024 HGB 15.1 09/01/2024 HCT 45.7 09/01/2024 MCV 87.7 09/01/2024 PLT 204 09/01/2024 RBC 5.21 (H) 09/01/2024 Lab Results Component Value Date CREATININE 0.38 (L) 06/18/2022 Rachel Coe, DO 09/12/2024 12:42 PM AUTHENTICATED BY RACHEL COE, ON 09/12/2024 12:42:36[facility]01-31-2025 Instructions* Patient Instructions* Davonte Ji, TEMPLER HEAD - 09/01/2024 12:36 PM EST Preoperative Medication Instructions In preparation for surgery please continue all of your current medications with the following changes: It is very important to follow these medication recommendations in order to prevent or limit potential adverse reactions associated with certain medications around the time of your surgery. If you are not able to follow the recommendations for any reason, including due to the timing of your procedure, please notify your surgeon. Active Home Medications Medication Sig Take Last Dose On Take Morning of Surgery Comment(s) gabapentin (NEURONTIN) 100 MG capsule Take 1-3 capsules by mouth every 8 hours as needed for pain .Yes if needed ibuprofen (ADVIL,MOTRIN) 800 MG tablet Take 1 (one) tablet (800 mg total) by mouth every 6 (six) hours as needed for pain . 09/05/24 oxyCODONE-acetaminophen (Percocet) 5-325 mg per tablet Take 1 (one) tablet by mouth every 6 (six) hours as needed for pain . Yes if needed STOP Aspirin (and medications that contain aspirin, such as Felicia Alanson, Pepto- Bismol, Anacin), antiinflammatory medications such as Advil, Motrin, Ibuprofen, Naproxen, Aleve, Felicia Alanson, Pepto-Bismol, Anacin, Diclofenac, Voltaren, Daypro, Etodolac, Ketoprofen, Meloxicam, Piroxicam, Relafen, Nabumetone, etc. Also discontinue Vitamin C, Vitamin E, [place]-3 Fatty Acid, Fish Oil or Lovaza, as wellas all herbal medications and supplements. Take last dose on 09/05/24 Tylenol (acetaminophen) is acceptable, but be careful to follow the label directions. On the morning of surgery, with a small amount of water, take ONLY the medications listed above in the column Take the morning of surgery. If you are using Eye Drops or Inhalers, please bring them to the hospital. If you have sleep apnea and have a CPAP/BIPAP device, please bring it with you on the day of surgery. documented in this [id number] Instructions* Pre-Procedure Instructions - Naz Davis RN - 09/01/2024 12:29 PM EST Patient Instructions for [facility]: MAIN OR Prior to surgery: Please contact your surgeon's office for the scheduled time of your surgery. Report to the Surgery Family Waiting Area in the [place] area of [facility] 2 hours prior to your surgery. You may use stock shaper parking available at the [facility] Entrance, or stock shaper parking/ self-parking at the [facility] or [facility]. A voucher for parking will be provided to you. One family member may accompany you back into the Pre-Operative area. If your surgeon has given you special guidelines for eating and drinking prior to surgery, follow their instructions. If no instructions were provided, follow these instructions. The evening before surgery you may eata low-fat meal up. You may eat and drink until midnight. Do not eat or drink anything, including gum, cough drops, hard candy, or mints after midnight. Take only the morning pills that you have been instructed to take with sips of water, unless otherwise instructed by your doctor. If you have questions about how to take your medication on the day ofsurgery, contact your surgeon. If you are a diabetic, do not take your morning dose of insulin or oral hypoglycemic (sugar pill), unless otherwise instructed by your physician. We will check your blood glucose level prior to surgery and again after surgery. Shower using dial soap or as advised by your surgeon's office. You may brush your teeth on the morning of surgery but avoid swallowing any excess water. Do not apply any makeup, lotions, powders, or deodorants. Wear loose-fitting, washable clothing that will not interfere with your incision or dressing. Wear comfortable shoes that are easy to get on and off (tennis shoes, non-skid shoes, slippers, etc.). Please remove all jewelry and piercings, including wedding rings. If you cannot remove your rings, we may be required to cut them off if necessary. All nail dutch must be removed from your fingernails and toenails. Remove artificial nails from your fingernails. Please leave all valuable items at home. Do not smoke, vape, or chew tobacco or marijuana for 24 hours before surgery. Do not drink alcoholic beverages for 24 hours before surgery. Please be sure to wear comfortable, appropriate clothing. Please remember to bring both your insurance card and a photo ID with you on the day of your surgery. After your surgery: Arrange for a responsible adult (18 years or older) to drive you to and from the hospital if you are having an outpatient procedure. You are not permitted to drive until instructed by your surgeon. The expectation is that this fast food delivery driver will remain at the hospital for the duration of your procedure. You are advised to have someone stay with you for at least 24 hours after being under anesthesia. [id number] Miscellaneous Notes* Pre-Procedure Instructions - Naz Davis RN - 09/01/2024 12:29 PM EST Patient Instructions for [facility]: MAIN OR Prior to surgery: Please contact your surgeon's office for the scheduled time of your surgery. Report to the Surgery Family Waiting Area in the [place] area of [facility] 2 hours prior to your surgery. You may use stock shaper parking available at the Blue Entrance, or stock shaper parking/ self-parking at the [facility] or [facility]. A voucher for parking will be provided to you. One family member may accompany you back into the Pre-Operative area. If your surgeon has given you special guidelines for eating and drinking prior to surgery, follow their instructions. If no instructions were provided, follow these instructions. The evening before surgery you may eata low-fat meal up. You may eat and drink until midnight. Do not eat or drink anything, including gum, cough drops, hard candy, or mints after midnight. Take only the morning pills that you have been instructed to take with sips of water, unless otherwise instructed by your doctor. If you have questions about how to take your medication on the day ofsurgery, contact your surgeon. If you are a diabetic, do not take your morning dose of insulin or oral hypoglycemic (sugar pill), unless otherwise instructed by your physician. We will check your blood glucose level prior to surgery and again after surgery. Shower using dial soap or as advised by your surgeon's office. You may brush your teeth on the morning of surgery but avoid swallowing any excess water. Do not apply any makeup, lotions, powders, or deodorants. Wear loose-fitting, washable clothing that will not interfere with your incision or dressing. Wear comfortable shoes that are easy to get on and off (tennis shoes, non-skid shoes, slippers, etc.). Please remove all jewelry and piercings, including wedding rings. If you cannot remove your rings, we may be required to cut them off if necessary. All nail dutch must be removed from your fingernails and toenails. Remove artificial nails from your fingernails. Please leave all valuable items at home. Do not smoke, vape, or chew tobacco or marijuana for 24 hours before surgery. Do not drink alcoholic beverages for 24 hours before surgery. Please be sure to wear comfortable, appropriate clothing. Please remember to bring both your insurance card and a photo ID with you on the day of your surgery. After your surgery: Arrange for a responsible adult (18 years or older) to drive you to and from the hospital if you are having an outpatient procedure. You are not permitted to drive until instructed by your surgeon. The expectation is that this fast food delivery driver will remain at the hospital for the duration of your procedure. You are advised to have someone stay with you for at least 24 hours after being under anesthesia. documented in this [id number] Telephone encounter Note* Telephone Encounter - Paul Mcallister RN - 09/01/2024 11:29 AM EST Patient was seen in the office today for pre-op RN only visit. Post-op prescriptions entered after visit and routed to provider to sign. Patient is aware prescriptions will be available to roller picker atpharmacy prior to upcoming surgery. Patient verbalizes understanding that prescriptions are only for post- operative use and are not to be taken before surgery. Patient verbalizes understanding to confirm prescriptions are ready for roller picker before going to pharmacy to get them. [id number] Miscellaneous Notes* Telephone Encounter - Paul Mcallister RN - 09/01/2024 11:29 AM EST Patient was seen in the office today for pre-op RN only visit. Post-op prescriptions entered after visit and routed to provider to sign. Patient is aware prescriptions will be available to roller picker atpharmacy prior to upcoming surgery. Patient verbalizes understanding that prescriptions are only for post- operative use and are not to be taken before surgery. Patient verbalizes understanding to confirm prescriptions are ready for roller picker before going to pharmacy to get them. documented in this [id number] History of Present illness Narrative* Paul Mcallister RN - 09/01/2024 11:27 AM EST [facility] [address] [facility] [id number] Pre-Operative Visit: 09/01 Date of Surgery: 09/12 Location of Surgery: [facility] Type of Surgery: ROBOTIC ASSISTED LAPAROSCOPIC EXCISION OF ENDOMETRIOSIS, CHROMOPERTUBATION, CYSTOSCOPY POSSIBLE HYDRODISTENTION, HYSTEROSCOPY DILATION AND CURETTAGE WITH MYOSURE *SIMPLE* *ERAS PROTOCOL* *GLYCEMIC CONTROL PROTOCOL* Pre-Operative Diagnosis: Pelvic pain in female Interstitial cystitis Pelvic congestion syndrome Gilbert's syndrome Endometriosis determined by laparoscopy History of multiple miscarriages Anesthesia Risk Factors: History of adverse reactions to anesthesia: No Loose teeth/dentures: No History of sleep apnea: No Past Medical History: Diagnosis Date Anemia 08/21/2024 Endometriosis Fibroid 2018 IBS (irritable bowel syndrome) Irregular menstrual cycle 08/19/2020 Migraine headache 08/21/2024 Pelvic congestion syndrome Past Surgical History: Procedure Laterality Date BREAST BIOPSY 2020 BREAST LUMPECTOMY 2019 COLONOSCOPY ENDOMETRIAL ABLATION 2018 LAPAROSCOPY 09/2018 MYOMECTOMY 2019 PELVISCOPY ROBOTIC XI N/A 09/26/2020 Procedure: ROBOTIC ASSISTED LAPAROSCOPIC EXCISION OF ENDOMETRIOSIS, CHROMOPERTUBATION, LEFT OVARIANCYSTECTOMY, CYSTOSCOPY WITH HYDRODISTENTION; Surgeon: Darlin Ortega MD; Location: [facility] Main OR; Service: [employer] Nursing Documentation: Pre-op/post-op hand outs reviewed with patient. Patient advised of the appropriate phone numbers tocall for problems or concerns. Any questions addressed/answered at this time. Patient verbalized anunderstanding of all instructions. Post-op pain control- -Prescribed pain medication reviewed with patient -Discussed OnQ pain pump including care instructions as well as removal instructions and gas collection system operator number for issues outside of office hours -Discussed abdominal binder, instructions for wearing, and that it is optional to use Bowel Prep- -Went over bowel preparation instructions with patient and stressed importance of completing prep as instructed VTE Prophylaxis- -Not indicated Surgical Consent- -Dr. Garibay to review/sign consent with patient day of surgery Preadmission Testing- -Preadmission testing scheduled for 2:15pm today - advised on PAT location and where to park documented in this [id number] Evaluation + Plan note* Assessment & Plan Note - Darlin Ortega MD - 08/21/2024 12:34 PM ESTAssociated Problem(s): History of multiple miscarriages Patient counseled on habitual miscarriage causes. She states that her primary SUPERVISOR FLESHING thoroughly investigated this. Discussed checking fasting insulin and glucose for insulin resistance diagnosis. Advised on the increased risk of missed AB due to insulin resistance. Advised on reviewing labs performed by her primary SUPERVISOR FLESHING. Patient was advised to send the lab results through [employer]. Discussed performing a hysteroscopy D&C for evaluation of uterine cavity. She states that her primary SUPERVISOR FLESHING diagnosed her with a luteal phase deficit and recommended progesterone in early part of the once she identified that she had conceived. She has not conceived since she was given this advice. [id number] Miscellaneous Notes* Assessment & Plan Note - Darlin Ortega MD - 08/21/2024 12:34 PM ESTAssociated Problem(s): History of multiple miscarriages Patient counseled on habitual miscarriage causes. She states that her primary SUPERVISOR FLESHING thoroughly investigated this. Discussed checking fasting insulin and glucose for insulin resistance diagnosis. Advised on the increased risk of missed AB due to insulin resistance. Advised on reviewing labs performed by her primary SUPERVISOR FLESHING. Patient was advised to send the lab results through [employer]. Discussed performing a hysteroscopy D&C for evaluation of uterine cavity. She states that her primary SUPERVISOR FLESHING diagnosed her with a luteal phase deficit and recommended progesterone in early part of the once she identified that she had conceived. She has not conceived since she was given this advice. * Assessment & Plan Note - Darlin Ortega MD - 08/21/2024 12:29 PM ESTAssociated Problem(s): Endometriosis determined by laparoscopy Pt extensively counseled on medical vs surgical [...] which were answered as completely as possible. Advised on enhanced recovery after surgery protocol [...] time spent with patient, and writing notes. documented in this [id number] Miscellaneous Notes* Assessment & Plan Note - Darlin Ortega MD - 08/21/2024 12:34 PM ESTAssociated Problem(s): History of multiple miscarriages Patient counseled on habitual miscarriage causes. She states that her primary SUPERVISOR FLESHING thoroughly investigated this. Discussed checking fasting insulin and glucose for insulin resistance diagnosis. Advised on the increased risk of missed AB due to insulin resistance. Advised on reviewing labs performed by her primary SUPERVISOR FLESHING. Patient was advised to send the lab results through [employer]. Discussed performing a hysteroscopy D&C for evaluation of uterine cavity. She states that her primary SUPERVISOR FLESHING diagnosed her with a luteal phase deficit and recommended progesterone in early part of the once she identified that she had conceived. She has not conceived since she was given this advice. * Assessment & Plan Note - Darlin Ortega MD - 08/21/2024 12:29 PM ESTAssociated Problem(s): Endometriosis determined by laparoscopy Pt extensively counseled on medical vs surgical [...] which were answered as completely as possible. Advised on enhanced recovery after surgery protocol [...] time spent with patient, and writing notes. documented in this [id number] Miscellaneous Notes* Assessment & Plan Note - Darlin Ortega MD - 08/21/2024 12:34 PM ESTAssociated Problem(s): History of multiple miscarriages Patient counseled on habitual miscarriage causes. She states that her primary SUPERVISOR FLESHING thoroughly investigated this. Discussed checking fasting insulin and glucose for insulin resistance diagnosis. Advised on the increased risk of missed AB due to insulin resistance. Advised on reviewing labs performed by her primary SUPERVISOR FLESHING. Patient was advised to send the lab results through [employer]. Discussed performing a hysteroscopy D&C for evaluation of uterine cavity. She states that her primary SUPERVISOR FLESHING diagnosed her with a luteal phase deficit and recommended progesterone in early part of the once she identified that she had conceived. She has not conceived since she was given this advice. * Assessment & Plan Note - Darlin Ortega MD - 08/21/2024 12:29 PM ESTAssociated Problem(s): Endometriosis determined by laparoscopy Pt extensively counseled on medical vs surgical [...] time spent with patient, and writing notes. documented in this [id number] Evaluation + Plan note* Assessment & Plan Note - Darlin Ortega MD - 08/21/2024 12:29 PM ESTAssociated Problem(s): Endometriosis determined by laparoscopy Pt extensively counseled on medical vs surgical [...] time spent with patient, and writing notes. [id number] NoteTELEHEALTH VISIT Patient Name: Miladis Cha : 1995 MR #: [id number] SUBJECTIVE: Patient Location: Verified Patient is located in the [facility]. Patient Identification: Verified patient identity by Name and Date of . Video Visit Consent Statement: I discussed risks, benefits and alternatives of a real-time synchronous audiovisual consultation with the patient (and any accompanying persons) including the risks that the patient's personal health details and medical records will be discussed over real-time, synchronous, interactive video/audio/telecommunication technology, the visit will not be recorded without the express consent of both the provider and the patient, and that there are some limitations compared to [id number] evaluations. We elected to proceed. Miladis Cha is a 28 y.o. female who presents for Endometriosis and Habitual miscarriage (Patient presents today for telehealth visit to discuss her recurrent pelvic pain and her recurrent miscarriages.) She presents today to discuss recurrence of her left lower quadrant pain and chronic pelvic pain. She states that this has gotten worse since she has been attempting to conceive and underwent 2 miscarriages. Her first miscarriage was [place] of 2022 and her second miscarriage was approximately 3 months later, October 2023. She has been unable to conceive since. Her primary SUPERVISOR FLESHING has evaluated her for habitual AB and counseled that it may be secondary to a luteal phase deficit or a lack of progesterone in her cycle. She presents today to discuss the possibility that her endometriosis is potentially affecting her miscarriage risk. She notes her pain has returned since being off of any kind of hormonal management while attempting to conceive. Patient's past medical, surgical, social, and family histories have been reviewed and updated in the chart. Review of Systems [employer]AGE TOOL[employer]TER History: Past Medical History: Diagnosis Date Anemia 08/21/2024 Back pain Bladder problem Interstitial cystitis Endometriosis Fibroid 2018 IBS (irritable bowel syndrome) Irregular menstrual cycle 08/19/2020 Migraine headache 08/21/2024 Pelvic congestion syndrome PONV (postoperative nausea and vomiting) Past Surgical History: Procedure Laterality Date BREAST BIOPSY 2020 BREAST LUMPECTOMY 2019 COLONOSCOPY CYSTO HYDRODILATATION N/A 09/12/2024 Procedure: CYSTOSCOPY, HYDRODISTENTION,; Surgeon: Darlin Ortega MD; Location: [facility] Main OR; Service: [employer]; Laterality: N/A; ENDOMETRIAL ABLATION 2018 HYSTEROSCOPY DILATION AND CURETTAGE WITH MYOSURE N/A 09/12/2024 Procedure: HYSTEROSCOPY DILATION AND CURETTAGE; Surgeon: Darlin Ortega MD; Location: [facility] Main OR; Service: [employer]; Laterality: N/A; LAPAROSCOPY 09/2018 MYOMECTOMY 2019 PELVISCOPY ROBOTIC XI N/A 09/26/2020 Procedure: ROBOTIC ASSISTED LAPAROSCOPIC EXCISION OF ENDOMETRIOSIS, CHROMOPERTUBATION, LEFT OVARIAN CYSTECTOMY, CYSTOSCOPY WITH HYDRODISTENTION; Surgeon: Darlin Ortega MD; Location: [facility] Main OR; Service: [employer] PELVISCOPY ROBOTIC XI N/A 09/12/2024 Procedure: ROBOTIC ASSISTED LAPAROSCOPIC EXCISION OF ENDOMETRIOSIS, CHROMOPERTUBATION,; Surgeon: Darlin Ortega MD; Location: [facility] Main OR; Service: [employer]; Laterality: N/A; Simple procedure 90-120 minutes SP RA EOE 2020 Stage II Recent Hx of miscarriages Family History Problem Relation Age of Onset Endometriosis Mother Breast cancer Mother Cancer Mother Diabetes Mother No Known Problems Father Endometriosis Maternal Grandmother Diabetes Maternal Grandmother Ovarian cancer Sister Crohn's disease Maternal Uncle Social History Socioeconomic History Marital status: Spouse name: Mauricio Number of children: 1 Occupational History 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 Not very often. Drug use: Never Sexual activity: Yes Partners: Male Comment: occasional condoms OBJECTIVE: There were no vitals filed for this visit. There is no height or weight on file to calculate BMI. Physical Examination: Physical Exam Constitutional: Appearance: She is well-developed. HENT: Head: Normocephalic and atraumatic. Pulmonary: Effort: Pulmonary effort is normal. Neurological: Mental Status: She is alert and oriented to person, place, and time. Psychiatric: Behavior: Behavior normal. Thought Content: Thought content normal. Judgment: Judgment normal. Vitals reviewed. Exam conducted with a microbiology lab analyst present. ASSESSMENT/PLAN: Miladis Cha is a 28 y.o. female who presents for: Problem List Diagnosed Interstitial cystitis Relevant Orders Case Request Operating Room: ROBOTIC ASSISTED LAPAROSCOPIC EXCISION OF ENDOMETRIOSIS, (more content not included)...[facility]01-16-2025 History of Present illness Narrative* Darlin Ortega MD - 08/17/2024 9:01 AM EST TELEHEALTH VISIT Patient Name: Miladis Cha : 1995 MR #: [id number] SUBJECTIVE: Patient Location: Verified Patient is located in the [facility]. Patient Identification: Verified patient identity by Name and Date of . Video Visit Consent Statement: I discussed risks, benefits and alternatives of a real-time synchronous audiovisual consultation with the patient (and any accompanying persons) including the risks that the patient s personal health details and medical records will be discussed over real-time, synchronous, interactive video/audio/telecommunication technology, the visit will not be recorded without the express consent of both the provider and the patient, and that there are some limitations compared to [id number] evaluations. We elected to proceed. Miladis Cha is a 28 y.o. female who presents for Endometriosis and Habitual miscarriage (Patient presents today for telehealth visit to discuss her recurrent pelvic pain and her recurrent miscarriages.) She presents today to discuss recurrence of her left lower quadrant pain and chronic pelvic pain. She states that this has gotten worse since she has been attempting to conceive and underwent 2 miscarriages. Her first miscarriage was [place] of 2022 and her second miscarriage was approximately 3 months later, October 2023. She has been unable to conceive since. Her primary SUPERVISOR FLESHING has evaluated her for habitual AB and counseled that it may be secondary to a luteal phase deficit or a lack of progesterone in her cycle. She presents today to discuss the possibility that her endometriosis is potentially affecting her miscarriage risk. She notes her pain has returned since being off of any kind of hormonal management while attempting to conceive. Patient's past medical, surgical, social, and family histories have been reviewed and updated in the chart. Review of Systems [employer]AGE TOOL[employer]TER History: Past Medical History: Diagnosis Date Anemia 08/21/2024 Endometriosis Fibroid 2018 IBS (irritable bowel syndrome) Irregular menstrual cycle 08/19/2020 Migraine headache 08/21/2024 Pelvic congestion syndrome Past Surgical History: Procedure Laterality Date BREAST BIOPSY 2020 BREAST LUMPECTOMY 2019 COLONOSCOPY ENDOMETRIAL ABLATION 2018 LAPAROSCOPY 09/2018 MYOMECTOMY 2019 PELVISCOPY ROBOTIC XI N/A 09/26/2020 Procedure: ROBOTIC ASSISTED LAPAROSCOPIC EXCISION OF ENDOMETRIOSIS, CHROMOPERTUBATION, LEFT OVARIANCYSTECTOMY, CYSTOSCOPY WITH HYDRODISTENTION; Surgeon: Darlin Ortega MD; Location: [facility] Main OR; Service: [employer] Family History Problem Relation Age of Onset Endometriosis Mother Breast cancer Mother Cancer Mother Diabetes Mother No Known Problems Father Endometriosis Maternal Grandmother Diabetes Maternal Grandmother Ovarian cancer Sister Crohn's disease Maternal Uncle Social History Socioeconomic History Marital status: Legally Spouse name: Mauricio Number of children: 1 Occupational History 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 Not very often. Drug use: Never Sexual activity: Yes Partners: Male Comment: occasional condoms OBJECTIVE: There were no vitals filed for this visit. There is no height or weight on file to calculate BMI. Physical Examination: Physical Exam Constitutional: Appearance: She is well-developed. HENT: Head: Normocephalic and atraumatic. Pulmonary: Effort: Pulmonary effort is normal. Neurological: Mental Status: She is alert and oriented to person, place, and time. Psychiatric: Behavior: Behavior normal. Thought Content: Thought content normal. Judgment: Judgment normal. Vitals reviewed. Exam conducted with a microbiology lab analyst present. ASSESSMENT/PLAN: Miladis Cha is a 28 y.o. female who presents for: Problem List Diagnosed Interstitial cystitis Relevant Orders Case Request Operating Room: ROBOTIC ASSISTED LAPAROSCOPIC EXCISION OF ENDOMETRIOSIS, CHROMOPERTUBATION, CYSTOSCOPY POSSIBLE HYDRODISTENTION, HYSTEROSCOPY DILATION AND CURETTAGE WITH MYOSURE *SIMPLEERAS PROTOCOL* *GLYCEMIC CONTROL PROTOCOL* (Completed) Pelvic congestion syndrome Relevant Orders Case Request Operating Room: ROBOTIC ASSISTED LAPAROSCOPIC EXCISION OF ENDOMETRIOSIS, CHROMOPERTUBATION, CYSTOSCOPY POSSIBLE HYDRODISTENTION, HYSTEROSCOPY DILATION AND CURETTAGE WITH MYOSURE *SIMPLEERAS PROTOCOL* *GLYCEMIC CONTROL PROTOCOL* (Completed) Gilbert's syndrome Relevant Orders Case Request Operating Room: ROBOTIC ASSISTED LAPAROSCOPIC EXCISION OF ENDOMETRIOSIS, CHROMOPERTUBATION, CYSTOSCOPY POSSIBLE HYDRODISTENTION, HYSTEROSCOPY DILATION AND CURETTAGE WITH MYOSURE *SIMPLEERAS PROTOCOL* *GLYCEMIC CONTROL PROTOCOL* (Completed) Endometriosis determined by laparoscopy Pt extensively counseled on medical vs surgical [...] which were answered as completely as possible. Advised on enhanced recovery after surgery protocol [...] time spent with patient, and writing notes. Relevant Orders Case Request Operating Room: ROBOTIC ASSISTED LAPAROSCOPIC EXCISION OF ENDOMETRIOSIS, CHROMOPERTUBATION, CYSTOSCOPY POSSIBLE HYDRODISTENTION, HYSTEROSCOPY DILATION AND CURETTAGE WITH MYOSURE *SIMPLEERAS PROTOCOL* *GLYCEMIC CONTROL PROTOCOL* (Completed) History of multiple miscarriages Patient counseled on habitual miscarriage causes. She states that her primary SUPERVISOR FLESHING thoroughly investigated this. Discussed checking fasting insulin and glucose for insulin resistance diagnosis. Advised on the increased risk of missed AB due to insulin resistance. Advised on reviewing labs performed by her primary SUPERVISOR FLESHING. Patient was advised to send the lab results through [employer]. Discussed performing a hysteroscopy D&C for evaluation of uterine cavity. She states that her primary SUPERVISOR FLESHING diagnosed her with a luteal phase deficit and recommended progesterone in early part of the once she identified that she had conceived. She has not conceived since she was given this advice. Relevant Orders Case Request Operating Room: ROBOTIC ASSISTED LAPAROSCOPIC EXCISION OF ENDOMETRIOSIS, CHROMOPERTUBATION, CYSTOSCOPY POSSIBLE HYDRODISTENTION, HYSTEROSCOPY DILATION AND CURETTAGE WITH MYOSURE *SIMPLEERAS PROTOCOL* *GLYCEMIC CONTROL PROTOCOL* (Completed) Insulin, Total Glucose Return for Pre Op Visit with the Nurse, Surgery, Post Op Visit. Darlin Ortega MD documented in this [id number] History of Present illness Narrative* Darlin Ortega MD - 08/17/2024 9:01 AM EST TELEHEALTH VISIT Patient Name: Miladis Cha : 1995 MR #: [id number] SUBJECTIVE: Patient Location: Verified Patient is located in the [facility]. Patient Identification: Verified patient identity by Name and Date of . Video Visit Consent Statement: I discussed risks, benefits and alternatives of a real-time synchronous audiovisual consultation with the patient (and any accompanying persons) including the risks that the patient s personal health details and medical records will be discussed over real-time, synchronous, interactive video/audio/telecommunication technology, the visit will not be recorded without the express consent of both the provider and the patient, and that there are some limitations compared to [id number] evaluations. We elected to proceed. Miladis Cha is a 28 y.o. female who presents for Endometriosis and Habitual miscarriage (Patient presents today for telehealth visit to discuss her recurrent pelvic pain and her recurrent miscarriages.) She presents today to discuss recurrence of her left lower quadrant pain and chronic pelvic pain. She states that this has gotten worse since she has been attempting to conceive and underwent 2 miscarriages. Her first miscarriage was Sonam of 2022 and her second miscarriage was approximately 3 months later, October 2023. She has been unable to conceive since. Her primary SUPERVISOR FLESHING has evaluated her for habitual AB and counseled that it may be secondary to a luteal phase deficit or a lack of progesterone in her cycle. She presents today to discuss the possibility that her endometriosis is potentially affecting her miscarriage risk. She notes her pain has returned since being off of any kind of hormonal management while attempting to conceive. Patient's past medical, surgical, social, and family histories have been reviewed and updated in the chart. Review of Systems SWAGE TOOLSETTER History: Past Medical History: Diagnosis Date Anemia 08/21/2024 Endometriosis Fibroid 2018 IBS (irritable bowel syndrome) Irregular menstrual cycle 08/19/2020 Migraine headache 08/21/2024 Pelvic congestion syndrome Past Surgical History: Procedure Laterality Date BREAST BIOPSY 2020 BREAST LUMPECTOMY 2019 COLONOSCOPY ENDOMETRIAL ABLATION 2019 LAPAROSCOPY 09/2018 MYOMECTOMY 2019 PELVISCOPY ROBOTIC XI N/A 09/26/2020 Procedure: ROBOTIC ASSISTED LAPAROSCOPIC EXCISION OF ENDOMETRIOSIS, CHROMOPERTUBATION, LEFT OVARIANCYSTECTOMY, CYSTOSCOPY WITH HYDRODISTENTION; Surgeon: Darlin Ortega MD; Location: [facility] Main OR; Service: SWAGE TOOLSETTER-[employer] Family History Problem Relation Age of Onset Endometriosis Mother Breast cancer Mother Cancer Mother Diabetes Mother No Known Problems Father Endometriosis Maternal Grandmother Diabetes Maternal Grandmother Ovarian cancer Sister Crohn's disease Maternal Uncle Social History Socioeconomic History Marital status: Legally Spouse name: Mauricio Number of children: 1 Occupational History 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 Not very often. Drug use: Never Sexual activity: Yes Partners: Male Comment: occasional condoms OBJECTIVE: There were no vitals filed for this visit. There is no height or weight on file to calculate BMI. Physical Examination: Physical Exam Constitutional: Appearance: She is well-developed. HENT: Head: Normocephalic and atraumatic. Pulmonary: Effort: Pulmonary effort is normal. Neurological: Mental Status: She is alert and oriented to person, place, and time. Psychiatric: Behavior: Behavior normal. Thought Content: Thought content normal. Judgment: Judgment normal. Vitals reviewed. Exam conducted with a microbiology lab analyst present. ASSESSMENT/PLAN: Miladis Cha is a 28 y.o. female who presents for: Problem List Diagnosed Interstitial cystitis Relevant Orders Case Request Operating Room: ROBOTIC ASSISTED LAPAROSCOPIC EXCISION OF ENDOMETRIOSIS, CHROMOPERTUBATION, CYSTOSCOPY POSSIBLE HYDRODISTENTION, HYSTEROSCOPY DILATION AND CURETTAGE WITH MYOSURE *SIMPLEERAS PROTOCOL* *GLYCEMIC CONTROL PROTOCOL* (Completed) Pelvic congestion syndrome Relevant Orders Case Request Operating Room: ROBOTIC ASSISTED LAPAROSCOPIC EXCISION OF ENDOMETRIOSIS, CHROMOPERTUBATION, CYSTOSCOPY POSSIBLE HYDRODISTENTION, HYSTEROSCOPY DILATION AND CURETTAGE WITH MYOSURE *SIMPLEERAS PROTOCOL* *GLYCEMIC CONTROL PROTOCOL* (Completed) Gilbert's syndrome Relevant Orders Case Request Operating Room: ROBOTIC ASSISTED LAPAROSCOPIC EXCISION OF ENDOMETRIOSIS, CHROMOPERTUBATION, CYSTOSCOPY POSSIBLE HYDRODISTENTION, HYSTEROSCOPY DILATION AND CURETTAGE WITH MYOSURE *SIMPLEERAS PROTOCOL* *GLYCEMIC CONTROL PROTOCOL* (Completed) Endometriosis determined by laparoscopy Pt extensively counseled on medical vs surgical [...] which were answered as completely as possible. Advised on enhanced recovery after surgery protocol [...] time spent with patient, and writing notes. Relevant Orders Case Request Operating Room: ROBOTIC ASSISTED LAPAROSCOPIC EXCISION OF ENDOMETRIOSIS, CHROMOPERTUBATION, CYSTOSCOPY POSSIBLE HYDRODISTENTION, HYSTEROSCOPY DILATION AND CURETTAGE WITH MYOSURE *SIMPLEERAS PROTOCOL* *GLYCEMIC CONTROL PROTOCOL* (Completed) History of multiple miscarriages Patient counseled on habitual miscarriage causes. She states that her primary SUPERVISOR FLESHING thoroughly investigated this. Discussed checking fasting insulin and glucose for insulin resistance diagnosis. Advised on the increased risk of missed AB due to insulin resistance. Advised on reviewing labs performed by her primary SUPERVISOR FLESHING. Patient was advised to send the lab results through [employer]. Discussed performing a hysteroscopy D&C for evaluation of uterine cavity. She states that her primary SUPERVISOR FLESHING diagnosed her with a luteal phase deficit and recommended progesterone in early part of the once she identified that she had conceived. She has not conceived since she was given this advice. Relevant Orders Case Request Operating Room: ROBOTIC ASSISTED LAPAROSCOPIC EXCISION OF ENDOMETRIOSIS, CHROMOPERTUBATION, CYSTOSCOPY POSSIBLE HYDRODISTENTION, HYSTEROSCOPY DILATION AND CURETTAGE WITH MYOSURE *SIMPLEERAS PROTOCOL* *GLYCEMIC CONTROL PROTOCOL* (Completed) Insulin, Total Glucose Return for Pre Op Visit with the Nurse, Surgery, Post Op Visit. Darlin Ortega MD documented in this [id number] History of Present illness Narrative* Darlin Ortega MD - 08/17/2024 9:01 AM EST TELEHEALTH VISIT Patient Name: Miladis Cha : 1995 MR #: [id number] SUBJECTIVE: Patient Location: Verified Patient is located in the [facility]. Patient Identification: Verified patient identity by Name and Date of . Video Visit Consent Statement: I discussed risks, benefits and alternatives of a real-time synchronous audiovisual consultation with the patient (and any accompanying persons) including the risks that the patient s personal health details and medical records will be discussed over real-time, synchronous, interactive video/audio/telecommunication technology, the visit will not be recorded without the express consent of both the provider and the patient, and that there are some limitations compared to [id number] evaluations. We elected to proceed. Miladis Cha is a 28 y.o. female who presents for Endometriosis and Habitual miscarriage (Patient presents today for telehealth visit to discuss her recurrent pelvic pain and her recurrent miscarriages.) She presents today to discuss recurrence of her left lower quadrant pain and chronic pelvic pain. She states that this has gotten worse since she has been attempting to conceive and underwent 2 miscarriages. Her first miscarriage was Sonam of 2022 and her second miscarriage was approximately 3 months later, October 2023. She has been unable to conceive since. Her primary SUPERVISOR FLESHING has evaluated her for habitual AB and counseled that it may be secondary to a luteal phase deficit or a lack of progesterone in her cycle. She presents today to discuss the possibility that her endometriosis is potentially affecting her miscarriage risk. She notes her pain has returned since being off of any kind of hormonal management while attempting to conceive. Patient's past medical, surgical, social, and family histories have been reviewed and updated in the chart. Review of Systems SWAGE TOOLSETTER History: Past Medical History: Diagnosis Date Anemia 08/21/2024 Back pain Bladder problem Interstitial cystitis Endometriosis Fibroid 2018 IBS (irritable bowel syndrome) Irregular menstrual cycle 08/19/2020 Migraine headache 08/21/2024 Pelvic congestion syndrome PONV (postoperative nausea and vomiting) Past Surgical History: Procedure Laterality Date BREAST BIOPSY 2020 BREAST LUMPECTOMY 2019 COLONOSCOPY CYSTO HYDRODILATATION N/A 09/12/2024 Procedure: CYSTOSCOPY, HYDRODISTENTION,; Surgeon: Darlin Ortega MD; Location: [facility] Main OR; Service: SWAGE TOOLSETTER[employer]; Laterality: N/A; ENDOMETRIAL ABLATION 2018 HYSTEROSCOPY DILATION AND CURETTAGE WITH MYOSURE N/A 09/12/2024 Procedure: HYSTEROSCOPY DILATION AND CURETTAGE; Surgeon: Darlin Ortega MD; Location: [facility] Main OR; Service: SWAGE TOOLSETTER[employer]; Laterality: N/A; LAPAROSCOPY 09/2018 MYOMECTOMY 2019 PELVISCOPY ROBOTIC XI N/A 09/26/2020 Procedure: ROBOTIC ASSISTED LAPAROSCOPIC EXCISION OF ENDOMETRIOSIS, CHROMOPERTUBATION, LEFT OVARIANCYSTECTOMY, CYSTOSCOPY WITH HYDRODISTENTION; Surgeon: Darlin Ortega MD; Location: [facility] Main OR; Service: SWAGE TOOLSETTER[employer] PELVISCOPY ROBOTIC XI N/A 09/12/2024 Procedure: ROBOTIC ASSISTED LAPAROSCOPIC EXCISION OF ENDOMETRIOSIS, CHROMOPERTUBATION,; Surgeon: Darlin Ortega MD; Location: [facility] Main OR; Service: SWAGE TOOLSETTER[employer]; Laterality: N/A; Simple procedure 90-120 minutes SP RA EOE 2020 Stage II Recent Hx of miscarriages Family History Problem Relation Age of Onset Endometriosis Mother Breast cancer Mother Cancer Mother Diabetes Mother No Known Problems Father Endometriosis Maternal Grandmother Diabetes Maternal Grandmother Ovarian cancer Sister Crohn's disease Maternal Uncle Social History Socioeconomic History Marital status: Spouse name: Mauricio Number of children: 1 Occupational History 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 Not very often. Drug use: Never Sexual activity: Yes Partners: Male Comment: occasional condoms OBJECTIVE: There were no vitals filed for this visit. There is no height or weight on file to calculate BMI. Physical Examination: Physical Exam Constitutional: Appearance: She is well-developed. HENT: Head: Normocephalic and atraumatic. Pulmonary: Effort: Pulmonary effort is normal. Neurological: Mental Status: She is alert and oriented to person, place, and time. Psychiatric: Behavior: Behavior normal. Thought Content: Thought content normal. Judgment: Judgment normal. Vitals reviewed. Exam conducted with a microbiology lab analyst present. ASSESSMENT/PLAN: Miladis Cha is a 28 y.o. female who presents for: Problem List Diagnosed Interstitial cystitis Relevant Orders Case Request Operating Room: ROBOTIC ASSISTED LAPAROSCOPIC EXCISION OF ENDOMETRIOSIS, CHROMOPERTUBATION, CYSTOSCOPY POSSIBLE HYDRODISTENTION, HYSTEROSCOPY DILATION AND CURETTAGE WITH MYOSURE *SIMPLEERAS PROTOCOL* *GLYCEMIC CONTROL PROTOCOL* (Completed) Pelvic congestion syndrome Relevant Orders Case Request Operating Room: ROBOTIC ASSISTED LAPAROSCOPIC EXCISION OF ENDOMETRIOSIS, CHROMOPERTUBATION, CYSTOSCOPY POSSIBLE HYDRODISTENTION, HYSTEROSCOPY DILATION AND CURETTAGE WITH MYOSURE *SIMPLEERAS PROTOCOL* *GLYCEMIC CONTROL PROTOCOL* (Completed) Gilbert's syndrome Relevant Orders Case Request Operating Room: ROBOTIC ASSISTED LAPAROSCOPIC EXCISION OF ENDOMETRIOSIS, CHROMOPERTUBATION, CYSTOSCOPY POSSIBLE HYDRODISTENTION, HYSTEROSCOPY DILATION AND CURETTAGE WITH MYOSURE *SIMPLEERAS PROTOCOL* *GLYCEMIC CONTROL PROTOCOL* (Completed) Endometriosis determined by laparoscopy Pt extensively counseled on medical vs surgical [...] time spent with patient, and writing notes. Relevant Orders Case Request Operating Room: ROBOTIC ASSISTED LAPAROSCOPIC EXCISION OF ENDOMETRIOSIS, CHROMOPERTUBATION, CYSTOSCOPY POSSIBLE HYDRODISTENTION, HYSTEROSCOPY DILATION AND CURETTAGE WITH MYOSURE *SIMPLEERAS PROTOCOL* *GLYCEMIC CONTROL PROTOCOL* (Completed) History of multiple miscarriages Patient counseled on habitual miscarriage causes. She states that her primary SUPERVISOR FLESHING thoroughly investigated this. Discussed checking fasting insulin and glucose for insulin resistance diagnosis. Advised on the increased risk of missed AB due to insulin resistance. Advised on reviewing labs performed by her primary SUPERVISOR FLESHING. Patient was advised to send the lab results through [employer]. Discussed performing a hysteroscopy D&C for evaluation of uterine cavity. She states that her primary SUPERVISOR FLESHING diagnosed her with a luteal phase deficit and recommended progesterone in early part of the once she identified that she had conceived. She has not conceived since she was given this advice. Relevant Orders Case Request Operating Room: ROBOTIC ASSISTED LAPAROSCOPIC EXCISION OF ENDOMETRIOSIS, CHROMOPERTUBATION, CYSTOSCOPY POSSIBLE HYDRODISTENTION, HYSTEROSCOPY DILATION AND CURETTAGE WITH MYOSURE *SIMPLEERAS PROTOCOL* *GLYCEMIC CONTROL PROTOCOL* (Completed) Insulin, Total Glucose Pelvic pain in female Return for Pre Op Visit with the Nurse, Surgery, Post Op Visit. Darlin Ortega MD documented in this [id number] History of Present illness Narrative* Su Gotti, TEMPLER HEAD - 07/19/2024 11:30 AM EST SWAGE TOOLSETTER PROBLEM VISIT SUBJECTIVE: HPI Miladis Cha is a 28 y.o. Here for complaint of pelvic pain. Pelvic pain has been worsening in thepast year. Worst pelvic pain she has ever had in the past 1.5 weeks. Went to [facility] for eval last week and ultrasound completed. Diagnosed with ovarian cysts. Was given naproxen which did provide pain relief. Today she is still feeling the pain. States this pain is similar to what she felt prior to her last excision surgery. Pain is every day, all day. Describes as someone punching mein my lower gut, stabbing pain and sore. Reports constant bloating. Periods are extremely painful as well. History of endometriosis. Laparoscopic excision with left ovarian cystoscopy 2020. Bladder installations in the past for IC bladder sx relief, successful. PFPT encouraged in the past, but declined Has not seen GI. Pap 2021 ASCUS hpv neg Has been trying to conceive for the past year. In the past year, 2 miscarriages (07/2023 and 10/2023). OB advised vaginal progesterone with next . Menses are regular. Tracking with bossman. Has not tried OPKs yet to detect surge. Having unprotected intercourse 4 x weekly. Antiinflammatory diet. Exercising about daily - walking, pilates. Adequate water intake. One Red Bull daily. [place] is not painful, lubrication has helped. Having IC flares very often. BMs always diarrhea. Maternal uncle hx crohns. Pt does not like taking medication. Urogesic blue provides IC symptom relief and naproxen provides pelvic pain relief. She is not interested in OCP as she is TTC. Ultimately, Miladis is interested in undergoing another laparoscopic surgery for endometriosis excision. States this is how she felt prior to her 2020 surgery and remember feeling complete pain relief after surgery. History: Gynecologic History: Social History Substance and Sexual Activity Sexual Activity Yes Partners: Male Comment: occasional condoms ROS: Constitutional: no fatigue, no fever, no significant weight gain, no significant weight loss Skin: no abnormal moles, no rashes Respiratory: no dyspnea / shortness of breath, no cough, no sputum production, no hemoptysis, no wheezing Cardiovascular: no chest pain, no palpitations, no orthopnea Gastrointestinal: no heartburn, no dysphagia, no nausea, no vomiting, no abdominal pain, no bowel movement changes, no diarrhea, no constipation, no rectal bleeding Genitourinary: no hematuria, no abnormal bleeding, no flank pain, no difficulty urinating, no discharge Menstrual: see hpi Menopausal: no menopausal symptoms Sexual: no sexual problems Musculoskeletal: no muscle aches, no muscle weakness, no arthralgias/joint pain, no back pain Neurologic: no headaches, no dizziness, no LOC, no weakness, no numbness, no seizures Psych: no depression, no alcoholism, no anxiety, no sleep disturbances OBJECTIVE: Wt Readings from Last 3 Encounters: 07/19/24 71.2 kg (157 lb) 10/09/22 64 kg (141 lb) 07/02/22 64 kg (141 lb) Body mass index is 27.81 kg/m . BP 114/79 (BP Location: Left arm, Patient Position: Sitting) Ht 5' 3 Wt 71.2 kg (157 lb) BMI27.81 kg/m Physical Exam: Honing Machine Try Out Setter offered for physical exam. Patient declines microbiology lab analyst. General Appearance: healthy-appearing, well-nourished, no acute distress Neuro/psych: normal mood, normal affect Mental Status: no focal deficits, oriented Skin:Appearance: no rashes, no lesions Cardiovascular System- no LLE edema, no RLE edema, no varicosities ASSESSMENT/PLAN: - Reviewed symptoms. Encouraged medication use for pain management, as she reports providing relief. - Advised GI evaluation, referral placed and pt agreeable. - Advised to continue to TTC. Discussed OPKs and timed intercourse. Offered SA. Encouraged a visit with her OB regarding TTC. - Chart sent to Dr Garibay to review related to the pt's desire to surgery. Miladis was seen today for pelvic pain. Diagnoses and all orders for this visit: Pelvic pain in female Abdominal pain, unspecified abdominal location - Ambulatory referral to Gastroenterology; Future Bloating - Ambulatory referral to Gastroenterology; Future Diarrhea, unspecified type - Ambulatory referral to Gastroenterology; Future documented in this [id number] NoteGYN PROBLEM VISIT SUBJECTIVE: HPI Miladis Cha is a 28 y.o. Here for complaint of pelvic pain. Pelvic pain has been worsening in the past year. Worst pelvic pain she has ever had in the past 1.5 weeks. Went to [facility] for eval last week and ultrasound completed. Diagnosed with ovarian cysts. Was given naproxen which did provide pain relief. Today she is still feeling the pain. States this pain is similar to what she felt prior to her last excision surgery. Pain is every day, all day. Describes as someone punching me in my lower gut, stabbing pain and sore. Reports constant bloating. Periods are extremely painful as well. History of endometriosis. Laparoscopic excision with left ovarian cystoscopy 2020. Bladder installations in the past for IC bladder sx relief, successful. PFPT encouraged in the past, but declined Has not seen GI. Pap 2021 ASCUS hpv neg Has been trying to conceive for the past year. In the past year, 2 miscarriages (07/2023 and 10/2023). OB advised vaginal progesterone with next . Menses are regular. Tracking with bossman. Has not tried OPKs yet to detect surge. Having unprotected intercourse 4 x weekly. Antiinflammatory diet. Exercising about daily - walking, pilates. Adequate water intake. One Red Bull daily. [place] is not painful, lubrication has helped. Having IC flares very often. BMs always diarrhea. Maternal uncle hx crohns. Pt does not like taking medication. Urogesic blue provides IC symptom relief and naproxen provides pelvic pain relief. She is not interested in OCP as she is TTC. Ultimately, Miladis is interested in undergoing another laparoscopic surgery for endometriosis excision. States this is how she felt prior to her 2020 surgery and remember feeling complete pain relief after surgery. History: Gynecologic History: Social History Substance and Sexual Activity Sexual Activity Yes Partners: Male Comment: occasional condoms ROS: Constitutional: no fatigue, no fever, no significant weight gain, no significant weight loss Skin: no abnormal moles, no rashes Respiratory: no dyspnea / shortness of breath, no cough, no sputum production, no hemoptysis, no wheezing Cardiovascular: no chest pain, no palpitations, no orthopnea Gastrointestinal: no heartburn, no dysphagia, no nausea, no vomiting, no abdominal pain, no bowel movement changes, no diarrhea, no constipation, no rectal bleeding Genitourinary: no hematuria, no abnormal bleeding, no flank pain, no difficulty urinating, no discharge Menstrual: see hpi Menopausal: no menopausal symptoms Sexual: no sexual problems Musculoskeletal: no muscle aches, no muscle weakness, no arthralgias/joint pain, no back pain Neurologic: no headaches, no dizziness, no LOC, no weakness, no numbness, no seizures Psych: no depression, no alcoholism, no anxiety, no sleep disturbances OBJECTIVE: Wt Readings from Last 3 Encounters: 07/19/24 71.2 kg (157 lb) 10/09/22 64 kg (141 lb) 07/02/22 64 kg (141 lb) Body mass index is 27.81 kg/m . BP 114/79 (BP Location: Left arm, Patient Position: Sitting) Ht 5' 3 Wt 71.2 kg (157 lb) BMI 27.81 kg/m Physical Exam: Honing Machine Try Out Setter offered for physical exam. Patient declines microbiology lab analyst. General Appearance: healthy-appearing, well-nourished, no acute distress Neuro/psych: normal mood, normal affect Mental Status: no focal deficits, oriented Skin:Appearance: no rashes, no lesions Cardiovascular System- no LLE edema, no RLE edema, no varicosities ASSESSMENT/PLAN: - Reviewed symptoms. Encouraged medication use for pain management, as she reports providing relief. - Advised GI evaluation, referral placed and pt agreeable. - Advised to continue to TTC. Discussed OPKs and timed intercourse. Offered SA. Encouraged a visit with her OB regarding TTC. - Chart sent to Dr Garibay to review related to the pt's desire to surgery. Miladis was seen today for pelvic pain. Diagnoses and all orders for this visit: Pelvic pain in female Abdominal pain, unspecified abdominal location - Ambulatory referral to Gastroenterology; Future Bloating - Ambulatory referral to Gastroenterology; Future Diarrhea, unspecified type - Ambulatory referral to Gastroenterology; Future AUTHENTICATED BY SU GOTTI, ON 07/19/2024 12:21:27[facility] Ambulatory 07-15-2024 Hospital Discharge instructions Patient Education 07/15/2024 21:16:39 Abdominal Pain, Adult Abdominal Pain, Adult Pain in the abdomen (abdominal pain) can be caused by many things. In most cases, it gets better with no treatment or by being treated at home. But in some cases, it can be serious. Your health care provider will ask questions about your medical history and do a physical exam to try to figure out what is causing your pain. Follow these instructions at home: Medicines Take mxib-fhb-eoegjfm and prescription medicines only as told by your provider. Do not take medicines that help you poop (laxatives) unless told by your provider. General instructions Watch your condition for any changes. Drink enough fluid to keep your pee (urine) pale yellow. Contact a health care provider if: Your pain changes, gets worse, or lasts longer than expected. You have severe cramping or bloating in your abdomen, or you vomit. Your pain gets worse with meals, after eating, or with certain foods. You are constipated or have diarrhea for more than 2 3 days. You are not hungry, or you lose weight without trying. You have signs of dehydration. These may include: ?Dark pee, very little pee, or no pee. ?Cracked lips or dry mouth. ?Sleepiness or weakness. You have pain when you pee (urinate) or poop. Your abdominal pain wakes you up at night. You have blood in your pee. You have a fever. Get help right away if: You cannot stop vomiting. Your pain is only in one part of the abdomen. Pain on the right side could be caused by appendicitis. You have bloody or black poop (stool), or poop that looks like tar. You have trouble breathing. You have chest pain. These symptoms may be an emergency. Get help right away. Call 911. Do not wait to see if the symptoms will go away. Do not drive yourself to the hospital. This information is not intended to replace advice given to you by your health care provider. Make sure you discuss any questions you have with your health care provider. Document Revised: 05/05/2023 Document Reviewed: 05/05/2023 e27 Patient Education 2023 [employer]. Follow Up Care 07/15/2024 18:57:56 With:Jose L Hartley Address: [address], [address] [place] [address]- [phone] Business (1) When:07/20/2024 21:07:22 With:Thania OWENS Address: [address], [place] [address]- Business (1) When:Within 3 Day(s) [facility] 12-14-2024 NoteED Patient Education Note Gastroenterology Abdominal Pain, Adult Pain in the abdomen (abdominal pain) can be caused by many things. In most cases, it gets better with no treatment or by being treated at home. But in some cases, it can be serious. Your health care provider will ask questions about your medical history and do a physical exam to try to figure out what is causing your pain. Follow these instructions at home: Medicines ??? Take tgdc-xef-hhluonb and prescription medicines only as told by your provider. ??? Do not take medicines that help you poop (laxatives) unless told by your provider. General instructions ??? Watch your condition for any changes. ??? Drink enough fluid to keep your pee (urine) pale yellow. Contact a health care provider if: ??? Your pain changes, gets worse, or lasts longer than expected. ??? You have severe cramping or bloating in your abdomen, or you vomit. ??? Your pain gets worse with meals, after eating, or with certain foods. ??? You are constipated or have diarrhea for more than 2?3 days. ??? You are not hungry, or you lose weight without trying. ??? You have signs of dehydration. These may include: ? Dark pee, very little pee, or no pee. ? Cracked lips or dry mouth. ? Sleepiness or weakness. ??? You have pain when you pee (urinate) or poop. ??? Your abdominal pain wakes you up at night. ??? You have blood in your pee. ??? You have a fever. Get help right away if: ??? You cannot stop vomiting. ??? Your pain is only in one part of the abdomen. Pain on the right side could be caused by appendicitis. ??? You have bloody or black poop (stool), or poop that looks like tar. ??? You have trouble breathing. ??? You have chest pain. These symptoms may be an emergency. Get help right away. Call 911. ??? Do not wait to see if the symptoms will go away. ??? Do not drive yourself to the hospital. This information is not intended to replace advice given to you by your health care provider. Make sure you discuss any questions you have with your health care provider. Document Revised: 05/05/2023 Document Reviewed: 05/05/2023 Elsevier Patient Education ? [facility] Evaluation + Plan noteExtracted from:Title:ED NoteAuthor:Ephraim Botello DODate:07/15/24 Abdominal pain (R10.9: Unspe cified abdominal pain) Orders: docusate, 100 mg = 1 cap(s), Oral, BID, X 7 day(s), # 14 cap(s), Refills(s) 0, Pharmacy: [facility]/pharmacy #[id number], 160, cm, 07/15/24 19:11:00 EST, Height/Length Dosing, 74.1, kg, 07/15/24 19:11:00 EST, Weight Dosing morphine, 4 mg = 1 mL, Injection, IV Push, Once, Stop date 07/15/24 19:34:00 EST, STAT, Start date 07/15/24 19:34:00 EST, 07/15/24 19:34:00 EST polyethylene glycol 3350, 17 gram, Oral, Daily, dissolve in water before taking, # 527 gram, Refills(s) 0, [id number] 160, cm, 07/15/24 19:11:00 EST, Height/Length Dosing, 74.1, kg, 07/15/24 19:11:00 EST, Weight Dosing Add on Test Basic Metabolic Panel CBC w/ Auto Diff CT Abdomen/Pelvis w/ Contrast eGFR Hepatic Function Panel Lipase Level Saline Lock Insert U Beta Hcg Qual UA with Cult Rflx [facility] 09-18-2024 NotePatient Education Pulmonary Medicine Acute Bronchitis, Adult Acute bronchitis is sudden inflammation of the main airways (bronchi) that come off the windpipe (trachea) in the lungs. The swelling causes the airways to get smaller and make more mucus than normal. This can make it hard to breathe and can cause coughing or noisy breathing (wheezing). Acute bronchitis may last several weeks. The cough may last longer. Allergies, asthma, and exposureto smoke may make the condition worse. What are the causes? This condition can be caused by germs and by substances that irritate the lungs, including: ? Cold and flu viruses. The most common cause of this condition is the virus that causes the commoncold. ? Bacteria. This is less common. ? Breathing in substances that irritate the lungs, including: ? Smoke from cigarettes and other forms of tobacco. ? Dust and pollen. ? Fumes from household cleaning products, gases, or burned fuel. ? Indoor or outdoor air pollution. What increases the risk? The following factors may make you more likely to develop this condition: ? A weak body's defense system, also called the immune system. ? A condition that affects your lungs and breathing, such as asthma. What are the signs or symptoms? Common symptoms of this condition include: ? Coughing. This may bring up clear, yellow, or green mucus from your lungs (sputum). ? Wheezing. ? Runny or stuffy nose. ? Having too much mucus in your lungs (chest congestion). ? Shortness of breath. ? Aches and pains, including sore throat or chest. How is this diagnosed? This condition is usually diagnosed based on: ? Your symptoms and medical history. ? A physical exam. You may also have other tests, including tests to rule out other conditions, such as pneumonia. These tests include: ? A test of lung function. ? Test of a mucus sample to look for the presence of bacteria. ? Tests to check the oxygen level in your blood. ? Blood tests. ? Chest X-ray. How is this treated? Most cases of acute bronchitis clear up over time without treatment. Your health care provider may recommend: ? Drinking more fluids to help thin your mucus so it is easier to cough up. ? Taking inhaled medicine (inhaler) to improve air flow in and out of your lungs. ? Using a vaporizer or a humidifier. These are machines that add water to the air to help you breathe better. ? Taking a medicine that thins mucus and clears congestion (expectorant). ? Taking a medicine that prevents or stops coughing (cough suppressant). It is not common to take an antibiotic medicine for this condition. Follow these instructions at home: ? Take lqwf-qok-codhcqz and prescription medicines only as told by your health care provider. ? Use an inhaler, vaporizer, or humidifier as told by your health care provider. ? Take two teaspoons (10 mL) of honey at bedtime to lessen coughing at night. ? Drink enough fluid to keep your urine pale yellow. ? Do not use any products that contain nicotine or tobacco. These products include cigarettes, chewing tobacco, and vaping devices, such as e-cigarettes. If you need help quitting, ask your health care provider. ? Get plenty of rest. ? Return to your normal activities as told by your health care provider. Ask your health care provider what activities are safe for you. ? Keep all follow-up visits. This is important. How is this prevented? To lower your risk of getting this condition again: ? Wash your hands often with soap and water for at least 20 seconds. If soap and water are not available, use hand project manager retail. ? Avoid contact with people who have cold symptoms. ? Try not to touch your mouth, nose, or eyes with your hands. ? Avoid breathing in smoke or chemical fumes. Breathing smoke or chemical fumes will make your condition worse. ? Get the flu shot every year. Contact a health care provider if: ? Your symptoms do not improve after 2 weeks. ? You have trouble coughing up the mucus. ? Your cough keeps you awake at night. ? You have a fever. Get help right away if you: ? Cough up blood. ? Feel pain in your chest. ? Have severe shortness of breath. ? Faint or keep feeling like you are going to faint. ? Have a severe headache. ? Have a fever or chills that get worse. These symptoms may represent a serious problem that is an emergency. Do not wait to see if the symptoms will go away. Get medical help right away. Call your local emergency services (911 in the [place] Do not drive yourself to the hospital. Summary ? Acute bronchitis is inflammation of the main airways (bronchi) that come off the windpipe (trachea) in the lungs. The swelling causes the airways to get smaller and make more mucus than normal. ? Drinking more fluids can help thin your mucus so it is easier to cough up. ? Take hcvj-bsr-yrfazqp and (more content not included)...[facility]09-17-2024 Evaluation + Plan note Diagnostic Tests Pending * O & P Exam, Routine 04/18/24 [facility] [id number] Evaluation + Plan note Future Scheduled Tests Laboratory* O & P Exam, Routine 04/17/24 * Clostridium Difficile PCR 04/17/24 * Enteric Panel by PCR 04/17/24 [facility] 04-01-2024 Evaluation + Plan note Diagnostic Tests Pending * Factor V Leiden 11/01/23 * Protein C Activity 11/01/23 * Protein S-antigen 11/01/23 * Beta-2 Glycoprotein 1 Antibodies, IgA, IgG, IgM 11/01/23 * Antithrombin III Assay 11/01/23 [facility]03-31-2024 Hospital Discharge instructions Patient Education 10/30/2023 22:00:13 Threatened Miscarriage, Zycx-am-Lpct Threatened Miscarriage A threatened miscarriage is when a woman bleeds in her vagina during the first 20 weeks of but the has not ended. The doctor will do tests to make sure you are still . This condition does not mean your will end, but it does increase the risk that it will end (miscarriage). What are the causes? Normally, the cause of this condition is not known. What increases the risk? These things may make a woman more likely to lose a : Certain health problems Conditions that affect hormones, such as thyroid disease or polycystic ovary syndrome. Diabetes. Disorders that cause the body's disease-fighting system to attack itself by mistake. Infections. Bleeding problems. Being very overweight. Lifestyle factors Using products that have tobacco or nicotine in them. Being around tobacco smoke. Having a lot of caffeine. Using drugs. Problems with reproductive organs or parts Having a cervix that opens and thins before you are ready to give . The cervix is the lowest part of the womb. Having Asherman syndrome, which leads to: ?Scars in the womb. ?The womb being an abnormal shape. Growths (fibroids) in the womb. Problems in the body that are present at . Infection of the cervix or womb. Personal or health history Injury. Having lost an unborn baby before. Being younger than age 18 or older than age 35. Being around a harmful substance, such as radiation. Having lead or other heavy metals in: ?Things you eat or drink. ?The air around you. Using certain medicines. What are the signs or symptoms? Bleeding from the vagina. You may also have cramps or pain. Mild pain or cramps in your belly. How is this diagnosed? The doctor will do tests, such as an ultrasound to make sure you are still . How is this treated? There are no treatments that prevent loss of . But you need to do the right things to takecare of yourself at home. Follow these instructions at home: Get a lot of rest. Do not have sex or douche if there is bleeding in the vagina. Do not put things such as tampons in the vagina if it is bleeding. Do not smoke or use drugs. Do not drink alcohol. Avoid caffeine. Keep all follow-up visits while you are . Contact a doctor if: You are and you have one of these: ?Light bleeding coming from your vagina. ?Spots of blood coming from your vagina. You have belly pain or cramping. You have a fever. Get help right away if: Blood soaks through 2 large pads an hour for more than 2 hours. Clots of blood come from your vagina. Tissue comes out of your vagina. Fluid leaks or gushes from your vagina. You have very bad pain in your low back. You have very bad cramps in your belly. You have a fever, chills, and very bad belly pain. Summary A threatened miscarriage is when a woman bleeds in her vagina during the first 20 weeks of but the has not ended. Normally, the cause of this condition is not known. Symptoms include bleeding in the vagina or mild pain or cramps in your belly. There are no treatments that prevent loss of . Keep all follow-up visits while you are . This information is not intended to replace advice given to you by your health care provider. Make sure you discuss any questions you have with your health care provider. Document Revised: 01/17/2021 Document Reviewed: 01/17/2021 e27 Patient Education 2022 [employer]. Follow Up Care 10/30/2023 18:17:55 With:Ahsan MENDOZA Address: [address] [place] [address]- Business (1) When:11/02/2023 21:37:01 Comments:Please follow-up with Dr. Mendoza on Wednesday. Until you are seen by him to rest and not put anything in the vagina. Please follow-up with your primary care doctor and [facility] for further evaluation management. Return to ED for any new or worsening symptoms. With:Thania OWENS Address: [address], [place] [address]- Business (1) When:Within 3 Day(s) [facility]03-30-2024 Evaluation + Plan noteExtracted from: Title:ED NoteAuthor:Libby Ham DO ADate:10/30/23 Threatened miscarriage (O20. 0: Threatened ) Orders: Urinary Catheter Insertion US 1st Trimester US Transvaginal [facility]03-06-2024 Hospital Discharge instructions Patient Education 10/06/2023 12:00:43 Musculoskeletal Pain Musculoskeletal Pain Musculoskeletal pain refers to aches and pains in your bones, joints, muscles, and the tissues thatsurround them. This pain can occur in any part of the body. It can last for a short time (acute) ora long time (chronic). A physical exam, lab tests, and imaging studies may be done to find the cause of your musculoskeletal pain. Follow these instructions at home: Lifestyle Try to control or lower your stress levels. Stress increases muscle tension and can worsen musculoskeletal pain. It is important to recognize when you are anxious or stressed and learn ways to manageit. This may include: ?Meditation or yoga. ?Cognitive [...] are taken by mouth or applied to theskin. Take mazr-cbn-dmezwcl and prescription medicines only as told by your health care provider. When your pain is severe, bed rest may be helpful. Lie or sit in any position that is comfortable, but get out of bed and walk around at least every couple of hours. If directed, apply heat to the affected area as often as told by your health care provider. Use theheat source that your health care provider recommends, [...] a physical therapist. This person can help youcome up with a safe exercise program. If [...] your bones, joints, muscles, and the tissues thatsurround them. This pain can occur in any part of the body. Your health care provider may recommend that you see a physical therapist. This person can help youcome up with a safe exercise program. Do [...] provider. Document Revised: 11/21/2020 Document Reviewed: 10/30/2020 e27 Patient Education 2022 [employer]. Follow Up Care 10/06/2023 11:02:01 With:KAYLIN GIL FAAFP, Thania Bunch, PATRICIA, PED Address: [address] [place] [address] [facility] [place] [address]- When:10/09/2023 [facility]12-14-2023 Hospital Discharge instructions Patient Education 07/15/2023 14:27:00 Abdominal Pain During Abdominal Pain During Abdominal pain is common during and has many possible causes. Some causes are more serious than others, and sometimes the cause is not known. Abdominal pain can be a sign that labor is starting. It can also be caused by normal growth of yourbaby causing stretching of muscles and ligaments during . Always tell your health care provider if you have any abdominal pain. Follow these instructions at home: Do not have sex or put anything in your vagina until your pain goes away completely. Get plenty of rest until your pain improves. Drink enough fluid to keep your urine pale yellow. Take sytj-efw-domctyq and prescription medicines only as told by your health care provider. Keep all follow-up visits. This is important. Contact a health care provider if: Your pain continues or gets worse after resting. You have lower abdominal pain that: ?Comes and goes at regular intervals. ?Spreads to your back. ?Is similar to menstrual cramps. You have pain or burning when you urinate. Get help right away if: You have a fever, chills, or shortness of breath. You have vaginal bleeding. You are leaking fluid or passing tissue from your vagina. You have vomiting or diarrhea that lasts for more than 24 hours. Your baby is moving less than usual. You feel very weak or faint. You develop severe pain in your upper abdomen. Summary Abdominal pain is common during and has many possible causes. If you experience abdominal pain during , tell your health care provider right away. Follow your health care provider's home care instructions and keep all follow-up visits as told. This information is not intended to replace advice given to you by your health care provider. Make sure you discuss any questions you have with your health care provider. Document Revised: 04/01/2021 Document Reviewed: 04/01/2021 Elsevier Patient Education 2022 [employer]. Follow Up Care 07/15/2023 08:27:16 With:Ahsan MENDOZA Address: [address] , [place] [address]- Business (1) When:07/18/2023 14:05:09 [facility]10-30-2023 Telephone encounter Note* Telephone Encounter - Ann Marie Miller RN - 05/31/2023 5:32 PM EDT Pt left message on Refill line requesting refill of Urogesic blue. Pt has annual scheduled on 09/29/23. [facility]. [id number] Miscellaneous Notes* Telephone Encounter - nAn Marie Miller RN - 05/31/2023 5:32 PM EDT Pt left message on Refill line requesting refill of Urogesic blue. Pt has annual scheduled on 09/29/23. [facility] for approval. documented in this [id number] NoteHNO ID: [id number] Author: Miladis Butler, DO Service: ? Author Type: Physician Type: Progress Notes Filed: 11/04/2022 7:53 PM Note Text: BREAST SURGERY REASON FOR TODAY'S VISIT: Patient presents with: Breast Problem I have communicated my name and active licensure. The patient's identity and physical location were verified at the time of this visit. Either the patient or their legal textile designs sales representative has been informed of the risks and benefits of -- and alternatives to -- treatment through a remote evaluation and consents to proceed with the evaluation remotely. INTERVAL HISTORY: Miladis reports she is still having nipple discharge [...] MRI performed on 10/07/2022 were negative. HISTORY: Miladis Cha is a 26 year old female who presents with her boyfriend Jose Luis to the [facility] for an opinion regarding [...] previous pathology report unavailable (2020) IMPRESSION : Miladis Cha is a 26 year old female with a right Nipple Discharge. (N64.4) Breast pain, right (primary encounter diagnosis) (N64.52) Nipple discharge PLAN: Miladis continues to have right nipple discharge, but is (more content not included)...[id number] History of Present illness Narrative* Miladis Butler, DO - 10/28/2022 3:19 PM EDT BREAST SURGERY REASON FOR TODAY'S VISIT: Patient presents with: Breast Problem I have communicated my name and active licensure. The patient's identity and physical location wereverified at the time of this visit. Either the patient or their legal textile designs sales representative has been informed of the risks and benefits of -- and alternatives to -- treatment through a remote evaluation andconsents to proceed with the evaluation remotely. INTERVAL HISTORY: Miladis reports she is still having nipple discharge [...] MRI performed on 10/07/2022 were negative. HISTORY: Miladis Cha is a 26 year old female who presents with her boyfriend Jose Luis to the [facility] for an opinion regarding right nipple discharge and possible right breast mass. She has history of right nipple discharge in 2020, workup included MMG, US, MRI, and she underwentright duct excision. She recalls hearing papilloma as [...] previous pathology report unavailable (2020) IMPRESSION : Miladis Cha is a 26 year old female with a right Nipple Discharge. (N64.4) Breast pain, right (primary encounter diagnosis) (N64.52) Nipple discharge PLAN: Miladis continues to have right nipple discharge, but is actively manipulating the right breast on adaily basis. We discussed that the cycle of [...] know how she would like to proceed. Miladis Kopicky, DO Breast Surgery All questions were answered [...] with more than 50% of the total eikz-bc-swrb (virtual) time of thevisit in counseling / coordination of care. [facility] Miscellaneous Notes* Telephone Encounter - Bella Barrera RN - 10/12/2022 1:44 PM EDT Attempted to reach patient re: appointment. No answer. Message left with callback number. Bella Barrera RN [facility] History of Present illness Narrative* Marlys West CNP - 10/09/2022 11:41 AM EST [facility] [address] [facility] [id number] Bladder Instillation Miladis Cha is a 26 y.o. female presenting [...] CNP 10/09/22 11:41 AM documented in this [id number] Instructions* Patient Instructions* Marlys West CNP - 10/09/2022 11:35 AM EST What is interstitial cystitis/bladder pain syndrome? Interstitial cystitis (ds-kki-zvckq-emery s?-st? t?s)/bladder pain syndrome, or as we [...] be additional subtypes, called phenotypes, of IC/BPS. Thisalso helps to explain why there is such [...] discussed here. Treatment of this disorder is reviewedseparately. DEFINITIONS The definition of interstitial cystitis/bladder pain syndrome (IC/BPS) has evolved over the years and will probably continue to change as the cause is better understood. The [employer] (AUA) defines IC/BPS as an [...] of the vagina or a bacterial infection ofthe prostate) ?Bladder, pelvic, back, or other type [...] patients describes symptoms that are severe from thebeginning. When symptoms of IC/BPS begin suddenly, some patients are able to name the exact date onwhich symptoms began. (See 'Painful bladder causes' above.) [...] symptoms, home and work life are often disrupted,interest in sex may be minimal, and the person may have difficulty coping with chronic pain and fatigue. In surveys, 50 percent of patients reported being unable to work manager multimedia, 75 percent describe d pain with intercourse, 70 percent reported sleep disturbance, and 90 percent reported that IC/BPSaffected their daily activities [1]. DiscussedBladder irritants What [...] (cola, coffee and tea) -Medicines with caffeine (dlqn-ymt-gswdmou medications like cough medicine) -Carbonated drinks (soda and tonic water) -Drinks that contain alcohol -Spicy food -Tomatoes and foods that contain tomatoes -Sugar, honey and corn syrup -Phenix fruits and drinks (oranges, grapefruit, pineapple and [...] and prn oxybutynin. webstie and pamphlet given. https://www.urologyhealth.org/educational-resources/interstitial-cystitis/bladde a-twdn-edlxonxw www.ichelp.org documented in this [id number] NoteHNO ID: [id number] Author: RT Catherine(Pj) Service: ? Author Type: Technologist Type: Progress Notes Filed: 10/07/2022 11:42 AM Note Text: Radiology Service Progress Note PATIENT NAME: Miladis Cha DATE OF SERVICE: October 07, 2022 [...] BY: RT Catherine(R) October 07, 2022 11:41 [facility]03-08-2023 NoteHNO ID: [id number] Author: RT Emma(Pj) Service: Radiology Author Type: Petroleum Geologist Type: Progress Notes Filed: 10/07/2022 8:09 AM [...] Chest: Breast SIGNATURE: RT Emma(R) PATIENT NAME: Miladis Cha DATE: October 07, 2022 TIME: 7:59 [facility]03-08-2023 History of Present illness Narrative* RT Emma(R) - 10/07/2022 8:00 AM EST Radiology Service Progress Note DATE OF SERVICE: [...] Chest: Breast SIGNATURE: RT Emma(R) PATIENT NAME: Miladis Cha DATE: October 07, 2022 TIME: 7:59 AM [facility] Discharge instructions Patient Education 10/02/2022 18:25:37 [...] medicines. These include steroids, antibiotics, and some nvgx-smw-mrgmjlg medicines, such as aspirin or ibuprofen. Having [...] and a camera is passed down the esophagusand into the stomach (upper endoscopy). ?A test [...] Follow these instructions at home: Medicines Take rwnf-cli-eearboa and prescription medicines only as told by your health care provider. If you were prescribed an antibiotic medicine, take it as told by your health care provider. Do notstop taking the antibiotic even if you start [...] 07/13/2002 Document Revised: 12/06/2018 Document Reviewed: 12/06/2018 e27 Patient Education [employer] Follow Up Care 10/02/2022 13:55:10 With:Malcolm LU Address: [address] [place] [address]. [address] [place] [address] Business (1) When:10/05/2022 17:57:54 With:Maryann Rashid Address:Unknown When:10/05/2022 17:57:51 [facility]01-24-2023 NoteHNO ID: [id number] Author: Miladis Butler, DO Service: ? Author Type: Physician Type: Progress Notes Filed: 08/25/2022 4:56 PM Note Text: NEW BREAST CONSULTATION SERVICE DATE: 08/24/2022 Consultation requested by Marie So for an opinion regarding Miladis Cha. REASON FOR TODAY'S VISIT: Patient presents with: Breast Problem HISTORY AND CHIEF COMPLAINT: Miladis Cha is a 26 year old female who presents with her boyfriend Jose Luis [facility] for an opinion regarding [...] had genetic testing, is currently age 51. Miladis edmondson BREAST HISTORY Her past breast history [...] previous pathology report unavailable (2020) IMPRESSION : Miladis Cha is a 26 year old female with a right Nipple Discharge. (N63.11) Mass of upper outer quadrant of right breast (primary encounter diagnosis) Plan: MRI BREAST WO/W IVCON BILAT, US BREAST LTD RT, CLEO DIAGNOSTIC BILAT (N64.52) Nipple discharge Plan: MRI B (more content not included)...[id number] Nurse Note * Bella Barrera RN - 08/25/2022 2:02 PM EST Reason for today's visit:surgical consult for right breast pain and growing lump Mammogram film location: [facility]/Surgical history reviewed and documented in EPIC Palpates a breast change? Yes Nipple discharge? Yes, farah/black now thick, yellow Swelling in either upper extremity? Yes, into the axilla Exercise? Yes Advanced Directives? no Managing stress: Stress level on a scale of 1 - 10:1 Bra Size: 36D Pacemaker: no anticoagulants: no Do you follow with a gambreler helper on a regular basis? No Instruction: Monthly self breast exams Exercise routine Healthy diet Patient stated understanding of information received today. [facility] History of Present illness Narrative* Miladis Butler, DO - 08/25/2022 2:00 PM EST NEW BREAST CONSULTATION SERVICE DATE: 08/24/2022 Consultation requested by Marie So for an opinion regarding Miladis Cha. REASON FOR TODAY'S VISIT: Patient presents with: Breast Problem HISTORY AND CHIEF COMPLAINT: Miladis Cha is a 26 year old female who presents with her boyfriend Jose Luis to the [facility] for an opinion regarding right nipple discharge and possible right breast mass. She has history of right nipple discharge in 2020, workup included MMG, US, MRI, and she underwentright duct excision. She recalls hearing papilloma as [...] had genetic testing, is currently age 51. Miladis di BREAST HISTORY Her past breast history (prior [...] previous pathology report unavailable (2020) IMPRESSION : Miladis Cha is a 26 year old female [...] advise that her mother consider genetic testing. Miladis may also be a candidate and we will discuss this further at a later visit. I also introduced the idea of a future visit with our Medical Breast team to continue high risk management. Miladis Butler, DO Breast Surgery All questions were [...] with more than 50% of the total ylfw-la-ljmz time of the visit in counseling / coordination of care. Medical Decision Making: Problems: Moderate: New problem with uncertain prognosis Data: Unique test result(s) reviewed: 1 Unique test(s) ordered: 2 Independent interpretation of test from other physician/QHCP Discussed management or test w/ external physician/QHCP/source Risk: Low: Low risk from testing/treatment Medical Decision Making Level: 4 - Moderate [facility] Hospital Discharge instructions Patient Education 08/05/2022 19:28:45 [...] problems. It is used to check whether aperson is obese, overweight, healthy weight, or underweight. How is BMI calculated? BMI measures your weight and compares it to your height. This can be done either in [place] ([place] or metric measurements. Note that charts are available to help you find your BMI quickly and easily without having to do these calculations yourself. To calculate your BMI in [place] ([place] measurements, your health care provider will: [...] muscular build, such as an athlete, may havea BMI that is higher than 24.9. In cases like these, BMI is not an accurate measure of body fat. To determine if excess body fat is the cause of a BMI of 25 or higher, further assessments may needto be done by a health care provider. [...] medical problems. BMI can be measured using Iranian measurements or metric measurements. To interpret your [...] 03/30/2005 Document Revised: 07/01/2018 Document Reviewed: 06/01/2018 e27 Patient Education 2020 [employer]. 08/05/2022 19:28:41 Lymphadenopathy Lymphadenopathy Lymphadenopathy means that [...] where it is in your body. Some typesgo away on their own. Lymphadenopathy can occur [...] at home: Get plenty of rest. Take rkgl-gom-iddvuvi and prescription medicines only as told by your health care provider. Your health care provider may recommend ylji-siv-clunvfq medicines for pain. If directed, apply heat [...] collections of tissue that filter bacteria, viruses, andwaste from the bloodstream. They are part of your body's disease-fighting system (immune system). Lymphadenopathy can occur anywhere that you have lymph glands. If your enlarged and swollen lymph glands do not go back to normal after you have an infection or disease, your health care provider may do tests to monitor your condition and find the reason why theglands are still swollen and enlarged. Check your [...] 04/27/2009 Document Revised: 07/01/2018 Document Reviewed: 06/03/2018 e27 Patient Education 2020 [employer]. 08/05/2022 19:28:35 Breast Tenderness Breast Tenderness Breast tenderness is a common problem for women of all ages, but may also occur in men. Breast tenderness may range from mild discomfort to severe pain. In women, the pain usually comes and goes withthe menstrual cycle, but it can also be [...] also want to wear a supportive bra whilesleeping if your breasts are very tender. Medicines Take lbyq-dkp-ejcozse and prescription medicines only as told by [...] This will help you notice if you havean unusual growth or lump. Keep all follow-up [...] 07/01/2009 Document Revised: 12/11/2019 Document Reviewed: 12/11/2019 e27 Patient Education 2019 [employer]. [facility] 12-01-2022 History of Present illness Narrative* Joanna Suh PA-C - 07/02/2022 12:56 PM EST [facility] Office Note 07/02/22 Chief Complaint Patient presents with Follow-up Pt presents today for a follow up visit. Pt wants to discuss options for control. SUBJECTIVE: Miladis Cha is a 26 y.o. who presents [...] is also in a new relationship, and isunder a significantly less amount of relational stress. [place] is significantly improved with the new relationship [...] never skipped a month of bleeding. Having pelvicpain, back pain outside cycle. Significant pelvic pain, [...] ligament peritoneal endometriosis. Large bowel adhesions to theleft pelvic brim and left ovarian fossa were [...] ASSISTED LAPAROSCOPIC EXCISION OF ENDOMETRIOSIS, CHROMOPERTUBATION, LEFT OVARIANCYSTECTOMY, CYSTOSCOPY WITH HYDRODISTENTION; Surgeon: Darlin Ortega MD; Location: [facility] Main OR; Service: [employer] Allergen Patch Test No documentation. Active Home [...] rate and effort. Pelvic examination: deferred ASSESSMENT/PLAN: Miladis Cha 26 y.o. presents for pelvic pain, IC, contraception counseling Bladder symptoms resolved with bladder instillation. Dyspareunia significantly improved as well with new relationship, and decreased stress. Wishes to defer PFPT at this time. Contraception counseling, desires contraception. Worried about side effects. After thorough discussion, pt would like to proceed with trial Loloestrin. All questions answered. RTC for ocp check in 3 months Joanna Suh PA-C [facility] documented in this [id number] History of Present illness Narrative* Joanna Suh PA-C - 04/02/2022 11:30 AM EDT [facility] [address] [facility] [id number] ANNUAL EXAM Patient Name: Miladis Cha : 1995 SUBJECTIVE: Miladis Cha is a 26 y.o. Here for [...] never skipped a month of bleeding. Having pelvicpain, back pain outside cycle. Significant pelvic pain, [...] ligament peritoneal endometriosis. Large bowel adhesions to theleft pelvic brim and left ovarian fossa were [...] mouth sores, sore throat/voice changes, swollen glands inneck Cardiovascular: No chest pains, sudden heartbeat changes, [...] No frequent/recurrent headaches, lightheaded/dizzy, convulsions or seizures, numbnessor tingling, tremors Psychiatric/Behavioral: No memory loss or [...] ASSISTED LAPAROSCOPIC EXCISION OF ENDOMETRIOSIS, CHROMOPERTUBATION, LEFT OVARIANCYSTECTOMY, CYSTOSCOPY WITH HYDRODISTENTION; Surgeon: Darlin Ortega MD; Location: [facility] Main OR; Service: [employer] Social History Socioeconomic History Marital status: Spouse [...] 4. Myofascial muscle pain [facility] (PT[facility]) 5. Pelvic pain in female Ambulatory Ref to [facility] (PT/OT/ST) - Reviewed diet and exercise recommendations. [...] Return in about 3 months (around 07/02/2022). Joanna Suh PA-C 04/02/22 documented in this [id number] History of Present illness Narrative* Connie Peterson CNP - 06/18/2022 12:24 PM EST [facility] [address] [place] [id number] BLADDER INSTILLATION PROCEDURE NOTE Patient Name: Miladis Cha : 1995 MR #: [id number] Indication: pelvic pain Purpose and procedure discussed with patient. All questions answered. Verbal consent obtained. Previous bladder instillation none Current symptoms: Nocturia, discolored dark brown to yellow urine, urgency, frequency, flank pain. Procedure: The patient was placed in lithotomy position. Urethra visualized and cleaned with betedine. A 12 [place] catheter was introduced into the bladder using [...] work ordered due to c/o dark urine Connie Peterson CNP documented in this encounterOhioHealthEvaluation + Plan note No data available for this section [facility] Future App[facility]ments Appointment Date:08/10/2022 03:00:00 PM Scheduled Provider: [facility] Appointment Type:US Breast (FT) Future Scheduled Tests Radiology* US Breast Unilateral Rt Complete 08/10/22 [facility] Evaluation + Plan note Future Appointments Appointment Date:08/14/2022 08:00:00 AM Scheduled Provider:Phoenix Gonzalez MD Location:[facility] [address]ment Type[address] [facility] [place] Evaluation + Plan note Future Appointments Appointment Date:01/15/2025 05:40:00 PM Scheduled Provider:Dia Ware Location:[facility] Appointment Type:FM Open Future Scheduled Tests Radiology* CT Abdomen/Pelvis w/ Contrast 12/20/24 [facility] Evaluation + Plan note Future Appointments Appointment Date:01/15/2025 05:40:00 PM Scheduled Provider:Dia Ware Location:[facility] Appointment Type:FM Open Diagnostic Tests Pending * Urine Culture 12/20/24 Future Scheduled Tests Radiology* CT Abdomen/Pelvis w/ Contrast 12/20/24 [facility] Evaluation + Plan note Future Appointments Appointment Date:01/15/2025 05:40:00 PM Scheduled Provider:Dia Ware Location:[facility] Appointment Type:FM Open Appointment Date:03/23/2025 08:00:00 AM Scheduled Provider:Miladis Mayberry PA-C Location[facility] Appointment Type:URO Office Visit Future Scheduled Tests Radiology* US Renal 01/05/25 * CT Abdomen/Pelvis w/ Contrast 12/20/24 [facility] Evaluation + Plan note Future Appointments Appointment Date:01/15/2025 05:40:00 PM Scheduled Provider:Dia Ware Location:[facility] Appointment Type:FM Open Appointment Date:03/23/2025 08:00:00 AM Scheduled Provider:Miladis Mayberry PA-C Location:[facility] Appointment Type:URO Office Visit Diagnostic Tests Pending * Urine Culture 12/29/24 Future Scheduled Tests Radiology* US Renal 01/05/25 * CT Abdomen/Pelvis w/ Contrast 12/20/24 [facility] evaluation + Plan note Future Appointments Appointment Date:01/11/2025 07:00:00 AM Scheduled Provider: [facility] Appointment Type:US Abdominal/Pelvis (FT) Appointment Date:01/15/2025 05:40:00 PM Scheduled Provider:Dia Ware Location:[facility] Appointment Type:FM Open Appointment Date:02/08/2025 11:00:00 AM Scheduled Provider:Sumaya Park MD Location:[facility] Appointment Type:URO Office Visit Future Scheduled Tests Radiology* US Renal 01/11/25 * CT Abdomen/Pelvis w/ Contrast 12/20/24 [facility] Evaluation + Plan note Future Appointments Appointment Date:01/15/2025 05:40:00 PM Scheduled Provider:Dia Ware Location:[facility] Appointment Type:FM Open Appointment Date:02/08/2025 11:00:00 AM Scheduled Provider:Sumaya Park MD Location:[facility] Appointment Type:URO Office Visit Future Scheduled Tests Radiology* CT Abdomen/Pelvis w/ Contrast 12/20/24 [facility] evaluation + Plan note Future Appointments Appointment Date:02/23/2025 10:00:00 AM Scheduled Provider: Location:[facility] Appointment Type:Urology CALL PAT FT Appointment Date:02/26/2025 08:00:00 AM Scheduled Provider: Location:[facility] Appointment Type:Urology FT Future Scheduled Tests Radiology* CT Abdomen/Pelvis w/ Contrast 12/20/24 [facility] [place] Evaluation note* Diagnosis Well woman exam- Primary Routine general medical examination at a health care facility Screening for malignant neoplasm of cervix Screening for malignant neoplasm of the cervix Vaginal discharge Leukorrhea, not specified as infective Myofascial muscle pain Pelvic pain in female Unspecified symptom associated with female genital organs [facility] Diagnosis Well woman exam- Primary Routine general medical examination at a health care facility Screening for malignant neoplasm of cervix Screening for malignant neoplasm of the cervix Vaginal discharge Leukorrhea, not specified as infective Myofascial muscle pain Pelvic pain in female Unspecified symptom associated with female genital organs [facility]* Diagnosis BV (bacterial vaginosis)- Primary Unspecified vaginitis and vulvovaginitis [facility]* Diagnosis Interstitial cystitis- Primary Chronic interstitial cystitis Dark yellow-colored urine [facility]* Diagnosis Myofascial muscle pain- Primary Pelvic pain in female Unspecified symptom associated with female genital organs Interstitial cystitis Chronic interstitial cystitis Encounter for other general counseling or advice on contraception [facility]* Diagnosis Mass of upper outer quadrant of right breast- Primary Nipple discharge Other sign and symptom in breast Family history of breast cancer Family history of malignant neoplasm of breast At high risk for breast cancer Mastalgia Mastodynia [facility]* Diagnosis Mass of upper outer quadrant of right breast Nipple discharge Other sign and symptom in breast Family history of breast cancer Family history of malignant neoplasm of breast At high risk for breast cancer Mastalgia Mastodynia [facility] Diagnosis Mass of upper outer quadrant of right breast Nipple discharge Other sign and symptom in breast Family history of breast cancer Family history of malignant neoplasm of breast At high risk for breast cancer Mastalgia Mastodynia documented [facility]* Diagnosis Interstitial cystitis- Primary Chronic interstitial cystitis [facility]* Diagnosis Breast pain, right- Primary Mastodynia Nipple discharge Other sign and symptom in breast Family history of breast cancer Family history of malignant neoplasm of breast [facility]* Diagnosis Interstitial cystitis Chronic interstitial cystitis [facility]* Diagnosis Pelvic pain in female Unspecified symptom associated with female genital organs Endometriosis Endometriosis, site unspecified Ovarian cyst rupture Other and unspecified ovarian cyst Pelvic congestion Pelvic congestion syndrome Preoperative exam for gynecologic surgery- Primary Post-operative pain Other acute postoperative pain Pelvic pain in female Unspecified symptom associated with female genital organs Ovarian cyst rupture Other and unspecified ovarian cyst Post-operative state- Primary Other postprocedural status Chronic pelvic pain in female Unspecified symptom associated with female genital organs Interstitial cystitis Chronic interstitial cystitis Pelvic pain in female- Primary Unspecified symptom associated with female genital organs Abdominal pain, unspecified abdominal location Bloating Flatulence, eructation, and gas pain Diarrhea, unspecified type [facility]* Diagnosis Pelvic pain in female Unspecified symptom associated with female genital organs Endometriosis Endometriosis, site unspecified Ovarian cyst rupture Other and unspecified ovarian cyst Pelvic congestion Pelvic congestion syndrome Preoperative exam for gynecologic surgery- Primary Post-operative pain Other acute postoperative pain Pelvic pain in female Unspecified symptom associated with female genital organs Ovarian cyst rupture Other and unspecified ovarian cyst Post-operative state- Primary Other postprocedural status Chronic pelvic pain in female Unspecified symptom associated with female genital organs Interstitial cystitis Chronic interstitial cystitis 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 [facility]* Diagnosis Pelvic pain in female Unspecified symptom associated with female genital organs Endometriosis Endometriosis, site unspecified Ovarian cyst rupture Other and unspecified ovarian cyst Pelvic congestion Pelvic congestion syndrome Preoperative exam for gynecologic surgery- Primary Post-operative pain Other acute postoperative pain Pelvic pain in female Unspecified symptom associated with female genital organs Ovarian cyst rupture Other and unspecified ovarian cyst Post-operative state- Primary Other postprocedural status Chronic pelvic pain in female Unspecified symptom associated with female genital organs Interstitial cystitis Chronic interstitial cystitis Endometriosis determined by laparoscopy Pelvic congestion syndrome Interstitial cystitis Chronic interstitial cystitis 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 [facility]* Diagnosis Pelvic pain in female Unspecified symptom associated with female genital organs Endometriosis Endometriosis, site unspecified Ovarian cyst rupture Other and unspecified ovarian cyst Pelvic congestion Pelvic congestion syndrome Preoperative exam for gynecologic surgery- Primary Post-operative pain Other acute postoperative pain Pelvic pain in female Unspecified symptom associated with female genital organs Ovarian cyst rupture Other and unspecified ovarian cyst Post-operative state- Primary Other postprocedural status Chronic pelvic pain in female Unspecified symptom associated with female genital organs Interstitial cystitis Chronic interstitial cystitis Endometriosis determined by laparoscopy Pelvic congestion syndrome Interstitial cystitis Chronic interstitial cystitis 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 Pelvic pain in female Unspecified symptom associated with female genital organs Pelvic pain in female- Primary Unspecified symptom associated with female genital organs Interstitial cystitis Chronic interstitial cystitis Pelvic congestion syndrome Gilbert's syndrome Disorders of bilirubin excretion Endometriosis determined by laparoscopy History of multiple miscarriages [facility] Diagnosis Pelvic pain in female Unspecified symptom associated with female genital organs Endometriosis Endometriosis, site unspecified Ovarian cyst rupture Other and unspecified ovarian cyst Pelvic congestion Pelvic congestion syndrome Preoperative exam for gynecologic surgery- Primary Post-operative pain Other acute postoperative pain Pelvic pain in female Unspecified symptom associated with female genital organs Ovarian cyst rupture Other and unspecified ovarian cyst Post-operative state- Primary Other postprocedural status Chronic pelvic pain in female Unspecified symptom associated with female genital organs Interstitial cystitis Chronic interstitial cystitis Endometriosis determined by laparoscopy Pelvic congestion syndrome Interstitial cystitis Chronic interstitial cystitis 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 Pelvic pain in female Unspecified symptom associated with female genital organs Pelvic pain in female- Primary Unspecified symptom associated with female genital organs Interstitial cystitis Chronic interstitial cystitis Pelvic congestion syndrome Gilbert's syndrome Disorders of bilirubin excretion Endometriosis determined by laparoscopy History of multiple miscarriages Interstitial cystitis- Primary Chronic interstitial cystitis Pre-op examination Preoperative cardiovascular examination Pre-operative cardiovascular examination PONV (postoperative nausea and vomiting) Nausea with vomiting Anemia, unspecified type Pelvic pain in female Unspecified symptom associated with female genital organs Interstitial cystitis Chronic interstitial cystitis Pelvic congestion syndrome Gilbert's syndrome Disorders of bilirubin excretion Endometriosis determined by laparoscopy History of multiple miscarriages [facility] Diagnosis Pelvic pain in female Unspecified symptom associated with female genital organs Endometriosis Endometriosis, site unspecified Ovarian cyst rupture Other and unspecified ovarian cyst Pelvic congestion Pelvic congestion syndrome Preoperative exam for gynecologic surgery- Primary Post-operative pain Other acute postoperative pain Pelvic pain in female Unspecified symptom associated with female genital organs Ovarian cyst rupture Other and unspecified ovarian cyst Post-operative state- Primary Other postprocedural status Chronic pelvic pain in female Unspecified symptom associated with female genital organs Interstitial cystitis Chronic interstitial cystitis Endometriosis determined by laparoscopy Pelvic congestion syndrome Interstitial cystitis Chronic interstitial cystitis 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 Pelvic pain in female Unspecified symptom associated with female genital organs Pelvic pain in female- Primary Unspecified symptom associated with female genital organs Interstitial cystitis Chronic interstitial cystitis Pelvic congestion syndrome Gilbert's syndrome Disorders of bilirubin excretion Endometriosis determined by laparoscopy History of multiple miscarriages Acute postoperative pain- Primary Other acute postoperative pain Pelvic pain in female Unspecified symptom associated with female genital organs Pelvic pain in female Unspecified symptom associated with female genital organs Interstitial cystitis Chronic interstitial cystitis Pelvic congestion syndrome Gilbert's syndrome Disorders of bilirubin excretion Endometriosis determined by laparoscopy History of multiple miscarriages [facility] Diagnosis Pelvic pain in female Unspecified symptom associated with female genital organs Endometriosis Endometriosis, site unspecified Ovarian cyst rupture Other and unspecified ovarian cyst Pelvic congestion Pelvic congestion syndrome Preoperative exam for gynecologic surgery- Primary Post-operative pain Other acute postoperative pain Pelvic pain in female Unspecified symptom associated with female genital organs Ovarian cyst rupture Other and unspecified ovarian cyst Post-operative state- Primary Other postprocedural status Chronic pelvic pain in female Unspecified symptom associated with female genital organs Interstitial cystitis Chronic interstitial cystitis Endometriosis determined by laparoscopy Pelvic congestion syndrome Interstitial cystitis Chronic interstitial cystitis 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 Pelvic pain in female Unspecified symptom associated with female genital organs Pelvic pain in female- Primary Unspecified symptom associated with female genital organs Interstitial cystitis Chronic interstitial cystitis Pelvic congestion syndrome Gilbert's syndrome Disorders of bilirubin excretion Endometriosis determined by laparoscopy History of multiple miscarriages S/P robot-assisted surgical procedure [facility] Diagnosis Pelvic pain in female Unspecified symptom associated with female genital organs Endometriosis Endometriosis, site unspecified Ovarian cyst rupture Other and unspecified ovarian cyst Pelvic congestion Pelvic congestion syndrome Preoperative exam for gynecologic surgery- Primary Post-operative pain Other acute postoperative pain Pelvic pain in female Unspecified symptom associated with female genital organs Ovarian cyst rupture Other and unspecified ovarian cyst Post-operative state- Primary Other postprocedural status Chronic pelvic pain in female Unspecified symptom associated with female genital organs Interstitial cystitis Chronic interstitial cystitis Endometriosis determined by laparoscopy Pelvic congestion syndrome Interstitial cystitis Chronic interstitial cystitis 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 Pelvic pain in female Unspecified symptom associated with female genital organs Pelvic pain in female- Primary Unspecified symptom associated with female genital organs Interstitial cystitis Chronic interstitial cystitis Pelvic congestion syndrome Gilbert's syndrome Disorders of bilirubin excretion Endometriosis determined by laparoscopy History of multiple miscarriages S/P robot-assisted surgical procedure Acute cystitis without hematuria- Primary [facility] Diagnosis Pelvic pain in female Unspecified symptom associated with female genital organs Endometriosis Endometriosis, site unspecified Ovarian cyst rupture Other and unspecified ovarian cyst Pelvic congestion Pelvic congestion syndrome Preoperative exam for gynecologic surgery- Primary Post-operative pain Other acute postoperative pain Pelvic pain in female Unspecified symptom associated with female genital organs Ovarian cyst rupture Other and unspecified ovarian cyst Post-operative state- Primary Other postprocedural status Chronic pelvic pain in female Unspecified symptom associated with female genital organs Interstitial cystitis Chronic interstitial cystitis Endometriosis determined by laparoscopy Pelvic congestion syndrome Interstitial cystitis Chronic interstitial cystitis 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 Pelvic pain in female Unspecified symptom associated with female genital organs Pelvic pain in female- Primary Unspecified symptom associated with female genital organs Interstitial cystitis Chronic interstitial cystitis Pelvic congestion syndrome Gilbert's syndrome Disorders of bilirubin excretion Endometriosis determined by laparoscopy History of multiple miscarriages S/P robot-assisted surgical procedure Post-operative state- Primary Other postprocedural status Endometriosis determined by laparoscopy Interstitial cystitis Chronic interstitial cystitis documented in this encounter [facility]* Diagnosis Pelvic pain in female Unspecified symptom associated with female genital organs Endometriosis Endometriosis, site unspecified Ovarian cyst rupture Other and unspecified ovarian cyst Pelvic congestion Pelvic congestion syndrome Preoperative exam for gynecologic surgery- Primary Post-operative pain Other acute postoperative pain Pelvic pain in female Unspecified symptom associated with female genital organs Ovarian cyst rupture Other and unspecified ovarian cyst Post-operative state- Primary Other postprocedural status Chronic pelvic pain in female Unspecified symptom associated with female genital organs Interstitial cystitis Chronic interstitial cystitis Endometriosis determined by laparoscopy Pelvic congestion syndrome Interstitial cystitis Chronic interstitial cystitis 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 Pelvic pain in female Unspecified symptom associated with female genital organs Pelvic pain in female- Primary Unspecified symptom associated with female genital organs Interstitial cystitis Chronic interstitial cystitis Pelvic congestion syndrome Gilbert's syndrome Disorders of bilirubin excretion Endometriosis determined by laparoscopy History of multiple miscarriages S/P robot-assisted surgical procedure Acute cystitis without hematuria- Primary [facility] assessment information available[facility] Work Phone: Evaluation note* Diagnosis History of miscarriage Personal history of other genital system and obstetric disorders Threatened miscarriage (HHS-HCC) Threatened , unspecified as to episode of care Missed menses Positive urine test (HHS-HCC) [facility] No data available for this section [facility] Additional Instructions We evaluated you for your abdominal pain. We found you have a urinary tract infection. Complete the antibiotics as prescribed. Additionally we found that you are , your number was elevated however still quite low, 805. Your ultrasound showed some abnormalities by your right sided fallopian tube and we did not see any in the uterus. This could just be because you could be very early however you will need very close follow-up to ensure this is not an ectopic . You need to have your beta hCG number drawn on Wednesday morning and again on Wednesday morning. Please call OB as soon as possible, you will need to get in with OB hopefully on Wednesday so they can further evaluate you and determine next best steps. If you develop any worsening pain, severe bleeding, fevers return immediately to the emergency department for further evaluation.[facility] Work Phone: Progress note No data available for this section [facility] Primary Care Reason for referral (narrative) Referred by: Lisa PAGE, [place] Sal [facility] General Surgery [place] Reason for referral (narrative)* Diagnostic Procedure Only (Routine) - AuthorizedSpecialtyDiagnoses / ProceduresReferred By Contact Referred To ContactBR IMAGING Diagnoses Mass of upper outer quadrant of right breast Nipple discharge Family history of breast cancer At high risk for breast cancer Mastalgia Procedures CLEO DIAGNOSTIC BILAT DIAGNOSTIC MAMMOGRAPHY COMPUTER-AIDED DETCJ Miladis Erazo DO [address] [place] [address] [facility] [address] [place] [address] Referral IDStatusReasonStart DateExpiration DateVisits RequestedVisits [id number] Auto-Generated Referral * Diagnostic Procedure Only (Routine) - AuthorizedSpecialtyDiagnoses / ProceduresReferred By ContactReferred To ContactBR IMAGING Diagnoses Mass of upper outer quadrant of right breast Nipple discharge Family history of breast cancer At high risk for breast cancer Mastalgia Procedures US BREAST LTD RT US BREAST UNI REAL TIME WITH IMAGE LIMITED Miladis Butler DO [address] [place] [address] [facility] [address] [place] [phone] Referral IDStatusReasonStriverton DateExpiration DateVisits RequestedVisits [id number] Auto-Generated Referral * MRI/CT (Routine) - Pending ReviewSpecialtyDiagnoses / ProceduresReferred By ContactReferred To ContactMR IMAGING Diagnoses Mass of upper outer quadrant of right breast Nipple discharge Family history of breast cancer At high risk for breast cancer Mastalgia Procedures MRI BREAST WO/W IVCON BILAT MRI BREAST WITHOUT&WITH CONTRAST W/CAD BILATERAL Miladis Butler DO [address] [place] [address] Mr Imaging Referral IDStatusReasonMuskegon DateExpiration DateVisits RequestedVisits [id number] Auto-Generated Referral [facility] for referral (narrative)* Diagnostic Procedure Only (Routine) - ClosedSpecialtyDiagnoses / ProceduresReferred By ContactReferred To ContactBR IMAGING Diagnoses Mass of upper outer quadrant of right breast Nipple discharge Family history of breast cancer At high risk for breast cancer Mastalgia Procedures US BREAST LTD RT US BREAST UNI REAL TIME WITH IMAGE LIMITED Miladis Butler DO [address] [place] [address] [facility] [address] [place] [address] Referral IDStatusReasonStart DateExpiration DateVisits RequestedVisits [id number] Auto-Generated Referral [facility] for referral (narrative)No reason for referral information availableK[facility] Work Phone: Reyjpi for visit Narrative* Diagnostic Procedure Only (Routine) - ClosedSpecialtyDiagnoses / ProceduresReferred By ContactReferred To ContactBR IMAGING Diagnoses Mass of upper outer quadrant of right breast Nipple discharge Family history of breast cancer At high risk for breast cancer Mastalgia Procedures US BREAST LTD RT US BREAST UNI REAL TIME WITH IMAGE LIMITED Miladis Butler DO [address] [place] [address] [facility] Imaging [address] [place] [phone] Referral IDStatusReasonStart DateExpiration DateVisits RequestedVisits [id number] Auto-Generated Referral [facility] Summary Purpose Family History No Family [...] for this section No Family History Records FoundNo Family History Records FoundNo Family History Records Found No data available for this section No data available for this section No data available for this section No data available for this section No Family History Records FoundNo Family History Records FoundNo Family History Records FoundNo Family History Records FoundNo Family History Records FoundNo Family History Records FoundNo Family History Records Found No data available for this section No Family History Records FoundNo Family History Records FoundNo Family History Records FoundNo Family History Records Found No data available for this section No Family History Records FoundNo Family History Records FoundNo Family History Records Found No data available for this section No data available for this section No Family History Records Found No data available for this section No data available for this section No data available for this section No Family History Records FoundNo Family History Records FoundNo Family History Records FoundNo Family History Records FoundNo Family History Records FoundNo Family History Records FoundNo Family History Records Found No data available for this section No Family History Records FoundNo Family History Records FoundNo Family History Records Found No data available for this section No data available for this section No data available for this section No Family History Records FoundNo Family History Records FoundNo Family History Records FoundNo Family History Records FoundNo Family History Records FoundNo Family History Records FoundNo Family History Records Found No data available for this section No Family History Records FoundNo Family History Records FoundNo Family History Records Found Advance Directives TypeDate RecordedPatient RepresentativeExplanationAdvance Directives and Living WillTypeDate RecordedPatient RepresentativeExplanationAdvance Directives and Living Will09/26/2020 12:00 AMCode StatusDate ActivatedDate InactivatedComments Full Code09/26/2020 1:59 PM2 10:04 PMFull Code09/26/2020 9:00 AM09/26/2020 1:59 PMTypeDate RecordedPatient RepresentativeExplanationAdvance Directives and Living Will09/26/2020 12:00 AMCode StatusDate ActivatedDate InactivatedComments Full Code09/26/2020 1:59 PM2 10:04 PMFull Code09/26/2020 9:00 AM09/26/2020 1:59 PMDate ActivatedDate InactivatedComments09/26/2020 1:59 PM2 10:04 PM Date ActivatedDate InactivatedComments09/26/2020 9:00 AM09/26/2020 1:59 PMDate ActivatedDate InactivatedComments09/26/2020 1:59 PM2 10:04 PMDate ActivatedDate InactivatedComments09/26/2020 9:00 AM09/26/2020 1:59 PMCode Status Date ActivatedDate InactivatedCommentsFull Code09/26/2020 1:59 PM2 10:04 PMCode StatusDate ActivatedDate InactivatedCommentsFull Code09/26/2020 9:00 AM 09/26/2020 1:59 PMCode StatusDate ActivatedDate InactivatedCommentsFull Code 09/26/2020 1:59 PM2 10:04 PMCode StatusDate ActivatedDate Inactivated CommentsFull Code09/26/2020 9:00 AM09/26/2020 1:59 PMDate ActivatedDate InactivatedComments09/26/2020 1:59 PM2 10:04 PMDate ActivatedDate InactivatedComments09/26/2020 9:00 AM09/26/2020 1:59 PMDate ActivatedDate InactivatedComments09/26/2020 1:59 PM2 10:04 PMDate ActivatedDate InactivatedComments09/26/2020 9:00 AM09/26/2020 1:59 PMDate ActivatedDate InactivatedComments09/12/2024 6:44 AM09/12/2024 11:13 AMDate ActivatedDate InactivatedComments09/26/2020 1:59 PM2 10:04 PMDate ActivatedDate InactivatedComments09/26/2020 9:00 AM09/26/2020 1:59 PM Advance Directive Response Recorded Date/ Time Advance Directives No May 10, 2025 8:27am History of Present Illness * Darlin Ortega MD - 08/14/2020 3:51 PM EST [facility] [address] [facility] [address] CONSULT VISIT Patient Name: Miladis Cha : 1995 MR #: [id number] SUBJECTIVE: Miladis Cha is a 24 y.o. female who [...] reports she had a laparoscopy procedure in [phone]. She notes family hx (mom and maternal grandma) of endometriosis. The patient is otherwise well and without fevers, chills, CP, SOB, chest papitations, severe abdominal or pelvic pain, nausea, vomiting, bladder or bowel issues. Patient's review of systems, past medical, surgical, social, and family histories have been reviewed and updated in the chart. [employer]AGE [employer]OL[employer]TER History: Period Pattern: (!) Irregular Menstrual Flow: [...] file Gets together: Not on file Attends episcopalian service: Not on file Active member of [...] Thought content normal. Judgment: Judgment normal. ASSESSMENT/PLAN: Miladis Cha is a 24 y.o. female who presents for: Problem List Items Addressed This Visit Ovarian cyst rupture Pelvic exam performed: Bladder tenderness. Uterine tenderness. Pt extensively counseled on treatment options for endometriosis. Discussed medical vs surgical options. Pt advised on use of control pills, Lupron and Orilissa. Advised on side effects and penitentiary use. Pt also advised on robotic assisted [...] as scribe on behalf of Dr. Darlin Ortega and accurately documented clinical information at the direction of the physician contemporaneously, while she performed the patient's clinical service. 08/14/20 3:51 PM documented in this encounter* Selene Perdomo RN - 09/25/2020 9:09 AM EST [facility] [address] [place] [address] [facility] [id number] PRE-OPERATIVE CONSULT Pre-Operative Visit: 09/25/20 Date Of Surgery: 09/26/20 [facility] Of Surgery: [facility] Pre-Op Dx: Pelvic pain, Endometriosis, Ovarian Cyst [...] 09/26/2020 7:51 PM EST Pt [facility] wheelchair and was picked up by a family member. documented in this encounter* Darlin Ortega MD - 10/09/2020 12:03 PM EST [facility] [address] [facility] [phone] POST-OPERATIVE VISIT Surgery: ROBOTIC ASSISTED LAPAROSCOPIC EXCISION OF ENDOMETRIOSIS, CHROMOPERTUBATION, LEFT OVARIAN CYSTECTOMY, CYSTOSCOPY WITH HYDRODISTENTION Surgery Date: 09/26/20 Surgeon: Darlin Ortega MD HPI: Miladis Cha is a 24 y.o. yo female [...] histories have been reviewed and updated in Epic charting. Physical Exam: Physical Exam Constitutional: Appearance: [...] as scribe on behalf of Dr. Darlin Ortega and accurately documented clinical information at the [...] Chronic interstitial cystitis Discharge Instructions * Instructions* ZhenKatarzyna kam, TEMPLER HEAD - 09/24/2020 Follow preprinted discharge instructions given [...] your doctor if you can take an xlvo-pdf-cumudil medicine. Take your pain medicine as soon [...] Log into your personal health record on [email or web address] and enter M536 in the Education box [...] documented in this encounter Reason for Referral StatusReasonSpecialtyDiagnoses / ProceduresReferred By ContactReferred To ContactAuthorized Patient Preference Physical Therapy Diagnoses Pelvic pain in female Darlin Ortega MD [address] [place] [address] SpecialtyDiagnoses / ProceduresReferred By ContactReferred To Contact Rehabilitation Diagnoses Myofascial muscle pain Pelvic pain in female Joanna Suh PA-C [address] [place] [address] Referral IDStatusReasonStriverton DateExpiration DateVisits RequestedVisits [id number] / Procedures Referred By ContactReferred To ContactMR IMAGING Diagnoses Mass of upper outer quadrant of right breast Nipple discharge Family history of breast cancer At high risk for breast cancer Mastalgia Procedures MRI BREAST WO/W IVCON BILAT MRI BREAST WITHOUT&WITH CONTRAST W/CAD BILATERAL Miladis Butler DO [address] [place] [address] Mr Imaging Referral IDStatusReasonMuskegon DateExpiration DateVisits RequestedVisits [id number] Auto-Generated Referral [id number] / ProceduresReferred By ContactReferred To Contact Diagnoses Interstitial cystitis [place], [employer] [address] [place] [address] Referral IDStatus[facility] DateExpiration DateVisits RequestedVisits [id number] Chief Complaint and Reason for Visit Chief Complaint Admit Date abd pain, vomiting May 10, 2025 7: 51am Chief Complaint Admit Date abd pain, vomiting May 10, 2025 7: 51am May 12, 2025 9 :44am Additional Source Comments INFORMATION SOURCE (unrecogn ized section and content) DATE CREATED AUTHOR 07/10/2018 [facility] DATE CREATED AUTHOR AUTHOR'S ORGANIZ ATION 11/15/2020 [facility] DATE CREATED AUTHOR AUTHOR'S ORGANIZ ATION 10/09/2022 [facility] DATE CREATED AUTHOR AUTHOR'S ORGANIZ ATION 11/08/2022 [facility] DATE CREATED AUTHOR AUTHOR'S ORGANIZ ATION 04/20/2024 [facility] DATE CREATED AUTHOR AUTHOR'S ORGANIZ ATION 04/25/2024 [facility] DATE CREATED AUTHOR AUTHOR'S ORGANIZ ATION 04/27/2024 [facility] DATE CREATED AUTHOR AUTHOR'S ORGANIZ ATION 07/18/2024 [facility] DATE CREATED AUTHOR AUTHOR'S ORGANIZ ATION 10/03/2024 [facility] DATE CREATED AUTHOR AUTHOR'S ORGANIZ ATION 10/07/2024 [facility] DATE CREATED AUTHOR AUTHOR'S ORGANIZ ATION 10/09/2024 [facility] DATE CREATED AUTHOR AUTHOR'S ORGANIZ ATION 12/14/2024 [facility] DATE CREATED AUTHOR AUTHOR'S ORGANIZ ATION 12/28/2024 [facility] DATE CREATED AUTHOR AUTHOR'S ORGANIZ ATION 12/30/2024 [facility] DATE CREATED AUTHOR AUTHOR'S ORGANIZ ATION 01/01/2025 [facility] DATE CREATED AUTHOR AUTHOR'S ORGANIZ ATION 01/05/2025 [facility] DATE CREATED AUTHOR AUTHOR'S ORGANIZ ATION 01/06/2025 [facility] DATE CREATED AUTHOR AUTHOR'S ORGANIZ ATION 03/27/2025 [facility] DATE CREATED AUTHOR AUTHOR'S ORGANIZ ATION 05/14/2025 [facility] EPIC DATE CREATED AUTHOR AUTHOR'S ORGANIZ ATION 05/18/2025 [facility] DATE CREATED AUTHOR AUTHOR'S ORGANIZ ATION 05/22/2025 [facility] DATE CREATED AUTHOR AUTHOR'S ORGANIZ ATION 05/23/2025 [facility] Reason for Visit (unrecogniz ed section and content) ReasonOnset DateCommentsMedication [id number]ic PainPt c/o pain with IC and menses. States she had a L/S in 2019 and was highly possible to have endometriosis. States she has multiple cysts monthly with her menses. States she feels bloated after meals. Reports having a colonoscopy and was dx'd with IBS, she was using Bentyl but discontinued.EndometriosisReason CommentsPre-op ExamStatusReasonSpecialtyDiagnoses / ProceduresReferred By ContactReferred To Contact Diagnoses Ovarian cyst rupture Chronic pelvic pain in female Dysuria Irritable bowel syndrome, unspecified type Ovarian cyst rupture [N83.209] Chronic pelvic pain in female [R10.2, G89.29] Dysuria [R30.0] Irritable bowel syndrome, unspecified type [K58.9] Procedures WV LAPAROSCOPY W TOT HYSTERECTUTERUS <=250 GRAM W TUBE/OVARY WV LAP,FULGURATE/EXCISE LESIONS WV REOPEN FALLOPIAN TUBE,CHROMOTUBATION WV CYSTOSCOPY,DIL BLADDER,GEN ANESTH WV INSERT INTRAUTERINE DEVICE Darlin Ortega MD [address] 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 Pt wants to discuss options for control.Reason CommentsBreast ProblemReasonCommentsRadiology MRISpecialtyDiagnoses / Procedures Referred By ContactReferred To ContactMR IMAGING Diagnoses Mass of upper outer quadrant of right breast Nipple discharge Family history of breast cancer At high risk for breast cancer Mastalgia Procedures MRI BREAST WO/W IVCON BILAT MRI BREAST WITHOUT&WITH CONTRAST W/CAD BILATERAL Miladis Butler DO [address] [place] [address] Mr Imaging Referral IDStatusReasonStart DateExpiration DateVisits RequestedVisits [id number] Auto-Generated Referral /[id number]nsxchh Installation.ReasonComments AppointmentReasonCommentsBreast ProblemReasonOnset DateCommentsMedication Refill 05/31/2023ReasonCommentsPelvic PainPt would like to discuss the pelvic pain she is having.Went to 2 hospitals 5 days apart last July.States she takes Naproxen which helps. Reports bloating. States she had 2 miscarriages with in the year. States over the last 3 months she is trying to conceive and has been unsuccessful.ReasonCommentsEndometriosisHabitual miscarriagePatient presents today for telehealth visit to discuss her recurrent pelvic pain and her recurrent miscarriages.ReasonCommentsPre-op ExamROBOTIC ASSISTED LAPAROSCOPIC EXCISION OF ENDOMETRIOSIS, CHROMOPERTUBATION, CYSTOSCOPY POSSIBLE HYDR ODISTENTION, HYSTEROSCOPY DILATION AND CURETTAGE WITH MYOSURE *SIMPLE* *ERAS PROTOCOL* *GLYCEMIC CONTROL PROT[facility]* [facility]CommentsPre-operative Medical Risk StratificationReasonOnset DateCommentsPost-op Pain Meds09/01/2024 ReasonCommentsPost-opPt presents today for a post op visit. Pt had an excision on 09/12/24. Pt states she is doing well, she got a rash from the surgical glue, but she took it off and it did get better.ReasonCommentsER Follow-upPt was seen on 05/10/2025 at [facility] for abdominal/flank pain. Assessment & Plan Note - Yasemin Valadez MA - 08/14/2020 3:38 PM EST Miscellaneous Notes (unrecog nized section and content) Associated Problem(s): Ovarian cyst rupture Pelvic exam performed: Bladder tenderness. Uterine tenderness. Pt extensively counseled on treatment options for endometriosis. Discussed medical vs surgical options. Pt advised on use of control pills, Lupron and Orilissa. Advised on side effects and penitentiary use. Pt also advised on robotic assisted [...] discussed at that time. documented in this encounter* Plan of Care - Pennie Andrade RN - 09/26/2020 6:39 PM EST AVS reviewed with pt. Pt states no further questions or concerns. This RN urged pt to attempt regular diet before discharging, pt compliant and attempting to eat crackers. Problem: Plan for Discharge Goal: Knowledge of discharge plan and instructions Outcome: Completed * Assessment & Plan Note - Rosaura Mcleod CNP - 09/26/2020 9:50 AM EST Associated Problem(s): Chronic pelvic pain in female - To OR with Dr. Ortega - Post op orders to follow - Pt plans on home this evening documented in this encounter* Telephone Encounter - Selene Perdomo RN - 10/09/2020 2:49 PM EST Patient was evaluated in the office today by Dr. Lani Ortega. Prescriptions for Hydroxyzine and Amitriptyline ordered after office visit. Rxs entered and routed to provider to sign. PFT referral entered. Pt lives in [place], [place] (near [place] This nurse called [facility], no answer. LVM requesting a return call to see if they offer PFT. P: [phone]. No fax number listed on their website. documented in this encounter* Assessment & Plan Note - Darlin Ortega MD - 10/13/2020 7:52 PM EDT Associated Problem(s): Interstitial cystitis Patient advised on symptomology of chronic bladder pain syndrome. Advised on dietary and lifestyle changes. Advised on use of Elmiron. Advised on risks, benefits and alternatives. Advised on the use of Amitriptyline and hydroxyzine. Advised on outpatient bladder instillations and intra-operative hydro-distention. * Assessment & Plan Note - Yasemin Valadez MA - 10/09/2020 12:02 PM EST Associated Problem(s): Chronic pelvic pain in female [...] images given to pt. documented in this encounter* Telephone Encounter - Selene Perdomo RN - 08/16/2020 10:33 AM EST Per orders from Dr. Garibay, Rx for [...] and content) HISTORY AND PHYSICAL Patient Name: Miladis Cha Admit Date: [id number] MR #: [id number] : 1995 Physicians: Thania Owens DO (Family); Mauricio Ortega* (referring) Hospital Course: No notes on file Assessment and Plan: Chronic pelvic pain in female Assessment & Plan - To OR with Dr. Ortega - Post op orders to follow - Pt plans on home this evening Assessment Detail: Based on current clinical information, the expected discharge date is: today (09/26/2020) Chief Complaint/Reason for Visit: Chronic pelvic pain History of Present Illness: Miladis Cha is a 24 y.o. female presenting [...] file Gets together: Not on file Attends episcopalian service: Not on file Active member of [...] 09/26/20 9:54 AM Associated attestation - Darlin Ortega MD - 09/26/2020 11:00 AM EST I have reviewed the history, physical and plan of care of Miladis Cha. I have reviewed the note and concur with the documentation completed by Rosaura Mcleod CNP . Darlin Ortega MD 09/26/2020 11:00 AM documented in this encounter Connie Figueroa RN - 09/23/2020 2:13 PM EST Nursing Notes (unrecognized section and content) Patient Instructions for [facility]: Prior to arrival: ? Please be sure to wear loose, comfortable clothing and non-skid shoes ? Bring your health insurance information and a photo ID, as well as your Living Will or Durable Power of Ambulance Officer for Healthcare if it is available to you. ? Bring your cane/walker any applicable assistive device. If you currently use a CPAP, please bringthis device with you on the day of surgery. ? Bring a list of your medications with the name of the medication, dose and how often you are taking it. Be sure to include herbal preparations and pwdp-yei-gxmvmyn medications on this list. ? Carefully follow [...] of lotions, perfumes or powders. All nail dutch is to be removed from fingernails and [...] day of your surgery/procedure. ? Parking at [facility] is free. Please park in the lot in front of the main lobby. Enter the Main Entrance where a Investigations Consultant Liaison at the information desk will greet [...] Care Teams (unrecognized sec tion and content) Team MemberRelationshipSpecialtyStart DateEnd Date Thania Owens, DO [address] [place] [address] [facility] - [facility] Grlqdqhb60/3/20Team MemberRelationshipSpecialtyStart DateEnd Date Thania Owens, DO [address] [place] [address] [facility] - [facility] Nesbjayk62/3/20Team MemberRelationshipSpecialtyStart DateEnd Date Thania Owens DO [address] [place] [address] PCP - Generalmily Amszctja79/3/20Team MemberRelationshipSpecialtyStart DateEnd Date Thania Owens, DO [address] [place] [address] PCP - Generalmily Mijqvtrh52/3/20Team MemberRelationshipSpecialtyStart DateEnd Date Thania Owens, DO [address] [place] [address] P[facility] - [facility]Dec[facility]ally Guldmfgq46/3/20Team MemberRelationshipSpecialtyStart DateEnd Date Thania Owens DO [address] [place] [address] PCP - GeneralFamily Phagaral68/3/20 Marlys West, AUTUMN [address] [facility] [address] Obstetrics/Gynecology10/22/22 Connie Peterson, AUTUMN [address] [facility] [place] [address] Nurse PractitionerObstetrics/Amerqzggpz87/20/23Team MemberRelationshipSpecialty Start DateEnd Date Thania Owens [place] [id number] PCP - GeneralFamily Vjuqnjup08/3/20 Marlys West, AUTUMN [address] [facility] [place] [address] Obstetrics/Gynecology10/22/22 Connie Peterson, AUTUMN [address] [facility] [place] [address] Nurse PractitionerObstetrics/Gzxuerlmhj27/20/23 Joanna Suh PA-C [address] [place] [address] Physician Assistant09/28/23 Su Gotti, TEMPLER HEAD [address] [place] [address] Nurse PractitionerNurse Bqbvhmxiubwb90/18/24Team MemberRelationshipSpecialty Start DateEnd Date Thania Owens DO [address] [place] [address] PCP - GeneralFamily Jxtkjarr46/3/20 Marlys West, AUTUMN [address] [place] [address] Obstetrics/Gynecology10/22/22 Connie Peterson, TEMPLER HEAD [address] [place] [address] Nurse PractitionerObstetrics/Ojcgbijoaj01/20/23 Joanna Suh PA-C [address] [place] [address] Physician Assistant09/28/23 Su Gotti, TEMPLER HEAD [address] [place] [address] Nurse PractitionerNurse Dxwdrkmkxhyc26/18/24Team MemberRelationshipSpecialty Start DateEnd Date Thania Owens DO [address] [place] [address] PCP - GeneralFamily Hznjjrbx63/3/20 Marlys West, AUTUMN [address] [place] [address] Obstetrics/Gynecology10/22/22 Connie Peterson, TEMPLER HEAD [address] [place] [address] Nurse PractitionerObstetrics/Eawlulbqzc69/20/23 Joanna Suh PA-C [address] [place] [address] Physician Assistant09/28/23 Su Gotti, TEMPLER HEAD [address] [place] [address] Nurse PractitionerNurse Iljwplcistig54/18/24Team MemberRelationshipSpecialty Start DateEnd Date Thania Owens DO [address] [place] [address] PCP - GeneralFamily Qqzmpkvo42/3/20 Marlys West, AUTUMN [address] [facility] [place] [address] Obstetrics/Gynecology10/22/22 Connie Peterson, AUTUMN [address] [facility] [place] [address] Nurse PractitionerObstetrics/Udsjudbsav44/20/23 Joanna Suh PA-C [address] [facility] [place] [address] Physician Assistant09/28/23 Su Gotti, TEMPLER HEAD [address] [facility] [place] [address] Nurse PractitionerNurse Ydonlnqxrehl06/18/24Team MemberRelationshipSpecialty Start DateEnd Date Thania Owens DO [address] [place] [phone] PCP - GeneralFamily Tgfzllsp53/3/20 Marlys West, AUTUMN [address] [place] [address] Obstetrics/Gynecology10/22/22 Connie Peterson, AUTUMN [address] [place] [address] Nurse PractitionerObstetrics/Rzctanxtev19/20/23 Joanna Suh PA-C [address] [place] [address] Physician Assistant09/28/23 Su Gotti, TEMPLER HEAD [address] [place] [address] Nurse PractitionerN[facility] [place] Ynhbcmaeiiji12/18/24 Darlin Ortega MD [address] [place] [address] Consulting PhysicianObstetrics/Gynecology09/01/24Team MemberRelationshipSpecialty Start DateEnd Date Thania Owens DO [address] [place] [phone] PCP - GeneralFamily Zfbyewpp47/3/20 Marlys West, AUTUMN [address] [place] [address] Obstetrics/Gynecology10/22/22 Connie Peterson, AUTUMN [address] [place] [address] Nurse PractitionerObstetrics/Tpqjuigksk48/20/23 Joanna Suh PA-C [address] [facility] [place] [address] Physician Assistant09/28/23 Su Gotti, AUTUMN [address] [place] [address] Nurse PractitionerNurse Cevxpvstpefy39/18/24 Darlin Ortega MD [address] [facility] [place] [address] Consulting PhysicianObstetrics/Gynecology09/01/24Team MemberRelationshipSpecialty Start DateEnd Date Thania Owens DO [address] [place] [address] PCP - GeneralFamily Zatmdkgk85/3/20 Marlys West, AUTUMN [address] [facility] [place] [address] Obstetrics/Gynecology10/22/22 Connie Peterson, AUTUMN [address] [place] [address] Nurse PractitionerObstetrics/Fekehtvrej16/20/23 Joanna Suh PA-C [address] [place] [address] Physician Assistant09/28/23 Su Gotti, TEMPLER HEAD [address] [place] [address] Nurse PractitionerNurse Nggsweyrhvqw04/18/24 Darlin Ortega MD [address] [place] [id number] Consulting PhysicianObstetrics/Gynecology09/01/24Team MemberRelationshipSpecialty Start DateEnd Date Thania Owens DO [address] [place] [phone] PCP - GeneralFamily Teiyrlaa86/3/20 Marlys West CNP [address] [place] [id number] Obstetrics/Gynecology10/22/22 Connie Peterson, AUTUMN [address] [place] [address] Nurse PractitionerObstetrics/Zocuowrdnp68/20/23 Joanna Suh PA-C [address] [place] [address] Physician Assistant09/28/23 Su Gotti, TEMPLER HEAD [address] [place] [address] Nurse PractitionerNurse Gycnsvqgyivv93/18/24 Darlin Ortega MD [address] [place] [address] Consulting PhysicianObstetrics/Gynecology09/01/24Team MemberRelationshipSpecialty Start DateEnd Date Thania Owens DO [address] [place] [address] PCP - [facility]Charles [facility] Urqqydpg68/3/20 Marlys West, AUTUMN [address] [place] [address] Obstetrics/Gynecology10/22/22 Connie Peterson, TEMPLER HEAD [address] [place] [address] Nurse PractitionerObstetrics/Kvwflkuhlt71/20/23 Joanna Suh PA-C [address] [facility] [facility] [place] [address] Physician Assistant09/28/23 Su Gotti, TEMPLER HEAD [address] [place] [address] Nurse PractitionerNurse Ihlnayfhiawm34/18/24 Darlin Ortega MD [address] [place] [address] Consulting PhysicianObstetrics/Gynecology09/01/24Team MemberRelationshipSpecialty Start DateEnd Date Thania Owens DO [address] [place] [address] PCP - GeneralFamily Mzqwmbrw97/3/20 Marlys West CNP [address] [place] [address] Obstetrics/Gynecology10/22/22 Connie Peterson, AUTUMN [address] [place] [address] Nurse PractitionerObstetrics/Sgepmrfuvz10/20/23 Joanna Suh PA-C [address] [place] [address] Physician Assistant09/28/23 Su Gotti, TEMPLER HEAD [address] [place] [address] Nurse PractitionerNurse Gytmofygdqhw49/18/24 Darlin Ortega MD [address] [place] [address] Consulting PhysicianObstetrics/Gynecology09/01/24 Team Status: Active Member Role Status Dates Thania Owens DO Primary Care Provider Active Team Status: Inactive Member Role Status Dates Thania Owens DO Primary Care Provider Active Start: May 10, 2025 End: May 10lexjass Flores DOEmergency ProviderActiveStart: May 10, 2025 End: May 10, 2025 Team Status: Inactive Member Role Status Dates Thania Owens DO Primary Care Provider Active Start: May 12, 2025 End: May 12jerzy Flores DOAttending ProviderActiveStart: May 12, 2025 End: May 12, 2025Team MemberRelationshipSpecialtyStart DateEnd Date Thania Owens MD [address] [place] [address] PCP - GeneralFami Btabxxih08/7/23Team MemberRelationshipSpecialtyStart DateEnd Date Thania Owens MD [address] [place] [address] PCP - Generalmi Ztbcaejr78/7/23Team MemberRelationshipSpecialtyStart DateEnd Date Thania Owens MD [address] [place] [address] PCP - [facility] Fticliqc39/7/23 Source Comments (unrecognize d section and content) In the event this informatio n is protected by the Federal Confidentiality of Alcohol and Drug Abuse Patient Records regulations: The Federal rules restrict any use of the information to criminally investigate or prosecute any alcohol or drug abuse patient.[facility] [place] [facility] HospitalIn the event this information is protected by the Federal Confidentiality of Alcohol and Drug Abuse Patient Records regulations: The Federal rules restrict any use of the information to criminally investigate or prosecute any alcohol or drug abuse patient.[facility] [place] [facility] HospitalIn the event this information is protected by the Federal Confidentiality of Alcohol and Drug Abuse Patient Records regulations: The Federal rules restrict any use of the information to criminally investigate or prosecute any alcohol or drug abuse patient.[facility] [place] [facility] HospitalIn the event this information is protected by the Federal Confidentiality of Alcohol and Drug Abuse Patient Records regulations: The Federal rules restrict any use of the information to criminally investigate or prosecute any alcohol or drug abuse patient.[facility] [place] [facility] HospitalIn the event this information is protected by the Federal Confidentiality of Alcohol and Drug Abuse Patient Records regulations: The Federal rules restrict any use of the information to criminally investigate or prosecute any alcohol or drug abuse patient.[facility] [place] [facility] Goals (unrecognized section and content) Goals may be documented in a n alternate section FOR RECORDS PERTAINING TO PATIENTS WHO ARE [...] BE BASED ON THE PRIMARY CLINICAL RECORDS. [facility]. provides no warranty or guarantee of the accuracy or completeness of information in this document.
--- OUTSIDE RECORDS SUMMARY | 2025-06-12 19:39 | XMS_ITS | Clinical Summary ---
Author Organization [facility] Address [address] [place] [address] Care Team Providers Care Bank Runner Name Role Phone Unavailable Primary Care Provider Unavailabl e Medications No known medications Active Problems No known active problems Family History Medical HistoryRelationCommentsUterine CancerMaternal Qyyifcfnahi11'sColon CancerMaternal Uncle20'sBreast CancerMotherPancreatic CancerNo Family History Prostate CancerNo Family HistoryRelationStatusCommentsMaternal Grandmother Maternal UncleAliveMother Social History Tobacco UseTypesPacks/DayYears UsedDateSmoking Tobacco: NeverSmokeless Tobacco: Never Tobacco Cessation:Counseling Given: Not Answered Alcohol UseStandard Drinks/WeekCommentsYes0 (1 standard drink = 0.6 oz pure alcohol)sociallyCommentsUnknownSex and Gender InformationValueDate RecordedSex Assigned at BirthNot on fileLegal QlgVpdmix68/18/2023 9:17 AM EST Gender IdentityNot on fileSexual OrientationNot on file Last Filed Vital Signs Vital SignReadingTime TakenCommentsBlood Pressure--Pulse--Temperature-- Respiratory Rate--Oxygen Saturation--Inhaled Oxygen Concentration--Ckmmgu51.9 kg (143 lb)08/25/2022 1:56 PM LJKCiccxj440 cm (5' 3 )08/25/2022 1:56 PM ESTBody Mass Index25.33008/25/2022 1:56 PM EST Plan of Treatment Health MaintenanceDue DateLast DoneCommentsAnxiety Gtcmxddut82/28/2012Depression Ashdofvoh47/28/2012HIV Kyewcotqj35/28/2012Hepatitis C Usrozxvor33/28/2012 Hepatitis B Vaccine (1 of 3 - 19+ 3-dose series)2012HPV Vaccine (1 - 3- dose SCDM series)2020ervical Cancer Eevnwnevs15ovid-19 Vaccine (2024- season)2025Influenza Vaccine (#1)2025 DTaP,Tdap,Td Vaccine (2 - Td or Tdap) Insurance
--- OUTSIDE RECORDS SUMMARY | 2025-06-12 19:39 | XMS_ITS | Encounter Summary ---
Author Organization [facility] Address [address] [place] [address] Care Team Providers Care Cardiology Technologist Name Role Phone Asad Owens MD Primary Care Provider [phone] Encounter Details DateTypeDepartmentCare Team (Latest Contact Info)Yheoqfvocog25/07/2023linisync Result Encounter [facility] External Department Unsolicited Mohinder Mendoza, DO [address] [facility] [facility] [address] [place], [place] [id number] Social History Tobacco UseTypesPacks/DayYears UsedDateSmoking Tobacco: Never Assessed CommentsUnknownSex and Gender InformationValueDate RecordedSex Assigned at Not on fileLegal IzlZnubpz26/01/2023 8:33 PM EDTGender IdentityNot on fileSexual OrientationNot on filedocumented as of this encounter Plan of Treatment DateTypeDepartmunson healthcare manistee hospitalCare Team (Latest Contact Info)Uglkhfhrggr99/17/2025 8:30 AM ESTAncillary Procedure [facility] [address] [facility] [place] [phone] documented as of this encounter Procedures Procedure NamePriorityDate/TimeAssociated DiagnosisCommentsUS OB TRANSVAGINAL 07/08/2023 1:47 PM EST documented in this encounter Results * US OB TRANSVAGINAL (07/08/2023 1:47 PM EST)Anatomical RegionLateralityModality OtherSpecimen (Source)Anatomical Location / LateralityCollection Method / VolumeCollection TimeReceived Time07/08/2023 1:47 PM EST Narrative 07/08/2023 1:49 PM EST [facility] ?[address] ? [place] [address] ? Ultrasound Report ? Signed ? Patient: ELODIA,FERNANDA ? MR#: [id number] ?? : 1995 ?Acct:[id number] ?? Age/Sex: 27 / F ?ADM Date: 07/08/ ?? Loc: US ? Attending Dr: Mohinder Mendoza D.O. ? Ordering Physician: Mohinder Mendoza D.O. ?? Date of Service: 07/08/23 ?? Procedure(s): US OB transvaginal ?? Accession Number(s): [id number] ? cc: Mohinder Mendoza D.O.; Physician,Non-Staff M.D. ? [facility] ? [address] ? [place] [address] ? Patient Name: ?? FERNANDA ??ELODIA ? MRN: [facility]:[id number] ? date: 1995 ?Sex: F ?? Assigned Patient Location: US ?? Current Patient Location: US ?? Accession/Order Number: [id number] ?? Exam Date: 07/08/2023 ??12:20 ?Report Date: 07/08/2023 ??13:47 ? At the request of: ?? MOHINDER ??KELLY ? Procedure: ??US OB transvaginal ? EXAMINATION: US OB transvaginal ? HISTORY: MISSED MENSES ? COMPARISON: No relevant comparison available. ? FINDINGS: ? Rich intrauterine gestation ?? Gestational sac: 3.54 cm, 8 weeks 5 days ?? CRL: 4.6 mm, 6 weeks 1 day, ?? Yolk sac: 5.6 mm ?? Heart rate: Not observed ? The cervix is closed measuring 4.6 cm ? The uterus is normal, anteverted, anteflexed ? The ovaries are normal. ? Clinical age: 12 weeks 6 days ?? Clinical HOMER: 01/14/2024 ? Ultrasound age: 6 weeks 1 day ?? Ultrasound HOMER: 03/01/2024 ? US/US OB transvaginal ?? IMPRESSION: ? Suspected early intrauterine gestation. ? 2 possible yolk sacs. No cardiac activity is observed ? Follow-up evaluation recommended ? Electronically authenticated by: LALITO ??NARAYAN ?? Date: 07/08/2023 ??13:47 ? Dictated By: ?Lalito Busch M.D. ? Signed By: ?07/08/23 1349 ? DD/ ? TD/TT: ? Brick Stacker: Procedure Note Radiology, Radiologist, MD - 07/08/2023 [place] [address] Ultrasound Report Signed Patient: FERNANDA CLIFTONMR#: [id number] : 1995Acct:[id number] Age/Sex: 27 / FADM Date: 07/08/23 Loc: US Attending Dr: Mohinder Mendoza D.O. Ordering Physician: Mohinder Mendoza D.O. Date of Service: 07/08/23 Procedure(s): US OB transvaginal Accession Number(s): [id number] cc: Mohinder Mendoza D.O.; Physician,Non-Staff [place] [facility] [place] [id number] Patient Name: FERNANDA CLIFTON MRN: [id number] date: 1995 Sex: F Assigned Patient Location: US Current Patient Location: US Accession/Order Number: [id number] Exam Date: 07/08/2023 12:20 Report Date: 07/08/2023 13:47 At the request of: MOHINDER MENDOZA Procedure: [...] Follow-up evaluation recommended Electronically authenticated by: LALITO BUSCH Date: 07/08/2023 13:47 Dictated By: Lalito Busch M.D. Signed By:07/08/23 1349 DD/ 1347 TD/TT: Brick Stacker: Authorizing ProviderResult TypeResult StatusCorey Kelly DOCLINISYNC IMAGINGFinal Result documented in this encounter Visit Diagnoses Not on filedocumented in this encounter Care Teams Team MemberRelationshipSpecialtyStart DateEnd Date Asad Ownes MD [address] [place] [address] PCP - GeneralFamily Zycowhps26/7/23documented as of this encounter
--- NOTE | 2025-06-12 19:41 | US_ITS ---
The [address] [address] Patient Name: FERNANDA CLIFTON MRN: [facility]:[id number] date: 1995 Sex: F Assigned Patient Location: US Current Patient Location: Accession/Order Number: [id number] Exam Date: 06/12/2025 19:50 Report Date: 06/13/2025 08:07 At the request of: MOHINDER BOSWELL DO Procedure: US OB transvaginal ULTRASOUND OB TRANSVAGINAL CLINICAL DATA: Missed menses COMPARISON: None Real-time ultrasound evaluation the pelvis was performed utilizing a transvaginal approach. There is a gestational sac within the uterus. A yolk sac and pole are seen. The crown-rump length measurement of 2.1 cm correlates with an ultrasound age of 8 weeks 5 days. The estimated date of delivery is 01/17/2026. There is cardiac activity with heart rate of 168 bpm. The cervix is closed with estimated length of 4.4 cm. Both ovaries are visualized. The left measures 2.5 x 1.1 x 1.4 cm. The right ovary measures 3.6 x 1.9 x 2.1 cm. There are no adnexal cysts. No free fluid is seen. US/US OB transvaginal IMPRESSION: SINGLE LIVE INTRAUTERINE GESTATION WITH ULTRASOUND AGE OF 8 WEEKS 5 DAYS Impression dictated by: Lisa Wang M.D. 06/13/2025 8:07 AM Dictation Location: [place] [address] Electronically authenticated by: [id number] Y Date: 06/13/2025 08:07
== END 2025-06-12 19:35 | disposition home or self-care (01) ==
PROVIDERS: PCP Family Medicine; Visit Provider Obstetrics & Gynecology
DX: Z32.01 Encounter for pregnancy test, result positive (principal); Z3A.08 8 weeks gestation of pregnancy; Z87.59 Personal history of other complications of pregnancy, childbirth and the puerperium; N92.6 Irregular menstruation, unspecified
CPT/HCPCS: 76817

== ENCOUNTER 2025-06-21 13:48 | Outpatient (OUT) | payer OTHER, SELFPAY ==
--- OUTSIDE RECORDS SUMMARY | 2023-12-29 06:30 | XMS_ITS ---
Author Organization [facility] Address [address] [place] [address] Care Team Providers Care Conditioner Tumbler Name Role Phone Sandra Tinsley Primary Care Provider Julia Carrasco [facility] [phone] REASON FOR VISIT PROPHY Encounters Encounter Location Date Provider Diagnosis [address] [place] [address] 12/29/2023 Julia Carrasco Plan Of Treatment No Information Progress Notes * FERNANDA CLIFTON ADOB:1995 (29 yo F)Acc No.[id number]:12/29/2023 Patient:?FERNANDA CLIFTON :?Julia BraunB:1995???Age:28 Y???Sex: FemaleDate:12/29/2023hone:[phone]:[address] [place], [place] [address]Pcp:Sandra Mares Subjective: * Chief Complaints: * P ROPHY Billing Information: * Procedure Codes: * Electronic signature of Julia Carrasco on 06/21/2025 at 01:55 PM ESTSign off status: Pending * Provider: Levi Beth Date: 0 12/29/2023 Generated for Printing/Faxing/eTransmitting on:?06/21/2025 01:55 PM EST
--- OUTSIDE RECORDS SUMMARY | 2024-02-23 10:45 | XMS_ITS ---
Author Organization [facility] Address [address] [place] [address] Care Team Providers Care Plant Science Professor Name Role Phone Julio Tinsley Primary Care Provider [phone] REASON FOR VISIT FILLING Encounters Encounter Location Date Provider Diagnosis [address] [place] [address] 02/23/2024 Julio Lopez Plan Of Treatment No Information Progress Notes * FERNANDA CLIFTON ADOB:1995 (29 yo F)Acc No.[id number]:02/23/2024 Patient:?FERNANDA CLIFTON :?JULIO LOPEZ DDSDOB:1995???Age: 28 Y???Sex:FemaleDate:4Phone:[phone]:[address] [place], [place] [phone] Subjective: * Chief Complaints: * F ILLING Billing Information: * Procedure Codes: * Electronic signature of Julio Lopez DDS on 06/21/2025 at 08:26 AM ESTSign off status: Pending * Provider: Kadeem LOPEZ DDS Date: 02/23/2024 Generated for Printing/Faxing/eTransmitting on:?06/21/2025 08:26 AM EST
--- OUTSIDE RECORDS SUMMARY | 2024-03-01 10:45 | XMS_ITS ---
Author Organization [facility] Address [address] [place] [address] Care Team Providers Care Tapper Shank Name Role Phone Julio Tinsley Primary Care Provider REASON FOR VISIT FILLING Encounters Encounter Location Date Provider Diagnosis [address] [place] [address] 03/01/2024 Julio Lopez Plan Of Treatment No Information Progress Notes * FERNANDA CLIFTON ADOB:1995 (29 yo F)Acc No.[id number]:03/01/2024 Patient:?FERNANDA CLIFTON :?JULIO LOPEZ DDSDOB:1995???Age: 28 Y???Sex:FemaleDate:4Phone:[phone]:[address] [facility] Subjective: * Chief Complaints: * F ILLING * Electronic signature of Julio Lopez DDS on 06/21/2025 at 08:26 AM ESTSign off status: Pending * Provider: Kadeem LOPEZ DDS Date: 0 03/01/2024 Generated for Printing/Faxing/eTransmitting on:?06/21/2025 08:26 AM EST
--- OUTSIDE RECORDS SUMMARY | 2024-06-12 04:15 | XMS_ITS ---
Author Organization [facility] Servic es Address [address] [place] [address] Care Team Providers Care Hoe Worker Name Role Phone Sandra Tinsley Primary Care Provider Jaylene Queen [facility] [phone] REASON FOR VISIT FILLING Encounters Encounter Location Date Provider Diagnosis [address] [place] [address] 06/12/2024 Jaylene Queen Plan Of Treatment No Information Progress Notes * FERNANDA CLIFTON ADOB:1995 (29 yo F)Acc No.[id number]:06/12/2024 Patient:?FERNANDA CLIFTON :?Jaylene Queen DDSDOB:1995???Age:28 Y ???Sex:FemaleDate:06/12/2024hone:[phone]:36 [facility]Pcp:Sandra Mares Subjective: * Chief Complaints: * F ILLING * Electronic signature of Jaylene Queen DDS on 06/21/2025 at 08:26 AM ESTSign off status: Pending * Provider: Julio C Queen DDS Date: 08/12/2023 Generated for Printing/Faxing/eTransmitting on:?06/21/2025 08:26 AM EST
--- OUTSIDE RECORDS SUMMARY | 2024-07-20 03:30 | XMS_ITS ---
Author Organization [facility] Servic es Address [address] [place] [address] Care Team Providers Care Animal Trainer Supervisor Name Role Phone Sandra Tinsley Primary Care Provider Trey Dietz [facility] [phone] REASON FOR VISIT FILLING Encounters Encounter Location Date Provider Diagnosis [place] [address] [address] 07/20/2024 Trey Dietz Plan Of Treatment No Information Progress Notes * FERNANDA CLIFTON ADOB:1995 (29 yo F)Acc No.[id number]:07/20/2024 Patient:?FERNANDA CLIFTON :?Trey Hdz DDSDOB:1995???Age:28 Y???Sex: FemaleDate:07/20/2024hone:[phone]:[address] [place], [place] [address]Pcp:Sandra Mares Subjective: * Chief Complaints: * F ILLING * Electronic signature of Trey Dietz on 06/21/2025 at 08:26 AM ESTSign off status: Pending * Provider: Preston Hdz DDS Date: 09/20/2023 Generated for Printing/Faxing/eTransmitting on:?06/21/2025 08:26 AM EST
--- OUTSIDE RECORDS SUMMARY | 2025-06-21 13:30 | XMS_ITS | Encounter Summary ---
Author Organization [facility] Address [address] [place] [address] Care Team Providers Care Actuarial Analyst Name Role Phone Asad Owens MD Primary Care Provider [phone] Reason for Visit * ReasonCommentsAmenorrhea Encounter Details DateTypeDepartmentCare Team (Latest Contact Info)Dhfgmxgnufz61/20/2025 1:30 PM ESTInitial [facility] [address] [place] [address] GA: 10w0d Social History Tobacco UseTypesPacks/DayYears UsedDateSmoking Tobacco: Never Assessed Estimated Date of YlyjaotiKxreuenvWux50/18/2026Based on UltrasoundSex and Gender InformationValueDate RecordedSex Assigned at BirthNot on fileLegal SexFemale 11/30/2022 8:33 PM EDTGender IdentityNot on fileSexual OrientationNot on file documented as of this encounter Last Filed Vital Signs Vital SignReadingTime TakenCommentsBlood Hshbrhlm446/7006/21/2025 1:45 PM EST Pulse--Temperature--Respiratory Rate--Oxygen Saturation--Inhaled Oxygen Concentration--Daukgb92.3 kg (174 lb 12 oz)06/21/2025 1:45 PM PNESzdaob248.6 cm (5' 4 )06/21/2025 1:46 PM ESTBody Mass Phibi1264/20/2025 1:45 PM ESTdocumented in this encounter Progress Notes * Patrizia Sethi MA - 06/21/2025 1:30 PM EST Reason for Appointment: Patient ID: Miladis A Donner is a 29 y.o. female who presents for Amenorrhea Patient presents today for a Nurse OB Intake appointment. Patient is 10w0d with a Estimated Date ofDelivery: 01/17/26 OB History Para Term AB Living 4 1 1 2 1 SAB IAB Ectopic Multiple Live Births 2 1 # Outcome Date GA Lbr Macario/2nd Weight Sex Type Anes PTL Lv 4 Current 3 SAB 10/01/23 2 SAB 07/03/23 1 Term 06/10/16 40w0d 8 lb 12 oz M Vag-Spont EPI GWENDOLYN Current Medications: currently has no medications in their medication list. Medical History: Active Ambulatory Problems Diagnosis Date Noted No Active Ambulatory Problems Resolved Ambulatory Problems Diagnosis Date Noted No Resolved Ambulatory Problems Past Medical History: Diagnosis Date Miscarriage ([facility]) 07/23/2023 No family history on file. Social History Tobacco Use Smoking status: Not on file Smokeless tobacco: Not on file Substance Use Topics Alcohol use: Not on file Drug use: Not on file Past Surgical History: Procedure Laterality Date DILATION AND CURETTAGE OF UTERUS 07/23/2023 Allergies Allergen Reactions Sulfamethoxazole-Trimethoprim Other Reaction(s): hives Vitals: There is no height or weight on file to calculate BMI. BP: Patient's last menstrual period was 04/02/2025 (exact date). Assessment/Plan Diagnoses and all orders for this visit: Missed menses - Type and screen; Future - ABO/Rh; Future - CBC and differential - Hemoglobin A1c - RPR - Rubella antibody, IgG - Hepatitis B surface antigen - Hepatitis C antibody - HIV-1 and HIV-2 antibodies - Urine culture - POCT , urine manually resulted - POCT urinalysis dipstick manually resulted , unspecified gestational age ([facility]) - Type and screen; Future - ABO/Rh; Future - CBC and differential - Hemoglobin A1c - RPR - Rubella antibody, IgG - Hepatitis B surface antigen - Hepatitis C antibody - HIV-1 and HIV-2 antibodies - Rapid drug screen, urine; Future Encounter for supervision of normal first in first trimester ([facility]) - Rapid drug screen, urine; Future Nurse Note: OB Intake: Patient presents today for first OB visit. Patients history has been reviewed in great detail including any potential risks. Patient signed consent forms and patient desires testing in both trimesters. Patient currently has no complaints and has been advised to drink 6-8 glasses of water a day, eatno raw or undercooked meat, and stay away from [facility]. Patient has also been advised to not change litter boxes and eat 6 small meals a day. Patient has been consulted regarding the do's and don'ts ofpregnancy. Patient was given labs and all questions and concerns were answered. Follow Up: Patient is to have labs drawn as directed and return to office for initial OB appointment with provider. Patient may call office as needed with any concerns or questions. Nurse Visit Completed by: Patrizia Sethi MA documented in this encounter Plan of Treatment DateTypeDepartmentCare Team (Latest Contact Info)Jjmdthoaryq24/23/2025 9:10 AM ESTRoutine [facility] [address] [place] [address] KellyAhsan davis, [address] [place] [address] NameTypePriorityAssociated DiagnosesOrder ScheduleType and screenLabRoutine Missed menses , unspecified gestational age ([facility]) Expected: 06/21/2025 (Approximate), Expires: 6ABO/RhLabRoutine Missed menses , unspecified gestational age ([facility]) Expected: 06/21/2025 (Approximate), Expires: 6CBC and differentialLab Routine Missed menses , unspecified gestational age ([facility]) Ordered: 06/21/2025Hemoglobin I7pXqfCfoiqcj Missed menses , unspecified gestational age ([facility]) Ordered: 06/21/2025RPRLabRoutine Missed menses , unspecified gestational age ([facility]) Ordered: 06/21/2025Rubella antibody, IgGLabRoutine Missed menses , unspecified gestational age ([facility]) Ordered: 06/21/2025Hepatitis B surface antigenLabRoutine Missed menses , unspecified gestational age ([facility]) Ordered: 06/21/2025Hepatitis C antibodyLabRoutine Missed menses , unspecified gestational age ([facility]) Ordered: 06/21/2025HIV-1 and HIV-2 antibodiesLabRoutine Missed menses , unspecified gestational age ([facility]) Ordered: 06/21/2025Urine cultureMicrobiologyRoutine Missed menses Ordered: 06/21/2025Rapid drug screen, urineLabRoutine , unspecified gestational age ([facility]) Encounter for supervision of normal first in first trimester ([facility]) Expected: 06/21/2025 (Approximate), Expires: 06/21/2026documented as of this encounter Visit Diagnoses Diagnosis Missed menses , unspecified gestational age ([facility]) Encounter for supervision of normal first in first trimester ([facility]) documented in this encounter Care Teams Team MemberRelationshipSpecialtyStart DateEnd Date Asad Owens MD [address] [place] [address] PCP - GeneralFamily Esjofwtq63/7/23documented as of this encounter
--- OUTSIDE RECORDS SUMMARY | 2025-06-21 13:54 | XMS_ITS | Clinical Summary ---
Author Organization [facility] Address [address] [facility], [address] [place] [address] Care Team Providers Care Steel Sampler Name Role Phone Unavailable Primary Care Provider Unavailabl e Medications No known medications Family History Medical HistoryRelationNameCommentsDiabetesFatherDiabetesMaternal Grandfather Ovarian CancerMaternal GrandmotherUterine CancerMaternal GrandmotherDiabetes MotherOvarian CancerOtherMGGDiabetesPaternal GrandfatherDiabetesPaternal GrandmotherRelationNameStatusCommentsFatherMaternal GrandfatherMaternal GrandmotherMotherOtherMGGPaternal GrandfatherPaternal Grandmother Social History Tobacco UseTypesPacks/DayYears UsedDateSmoking Tobacco: NeverSmokeless Tobacco: NeverCommentsNoSex and Gender InformationValueDate RecordedSex Assigned at BirthNot on fileLegal IxwTcfuol02/23/2015 1:21 PM EDTGender IdentityNot on fileSexual OrientationNot on file Last Filed Vital Signs Vital SignReadingTime TakenCommentsBlood Xwxypazv980/6912 9:30 AM EST Dnxrh195607/12/2018 9:30 AM ESTTemperature--Respiratory Rate--Oxygen Saturation-- Inhaled Oxygen Concentration--Nsfsmg18.5 kg (151 lb)07/12/2018 9:30 AM ESTHeight 160 cm (5' 3 )05/31/2018 12:39 PM EDTBody Mass Index26.7510 12:39 PM EDT Plan of Treatment Not on file Insurance * Guarantor: Iliana Cha TypeRelation to PatientDate of BirthPhone Billing AddressPersonal/CcoqvuNbge[address] [place] [address]
--- OUTSIDE RECORDS SUMMARY | 2025-06-21 13:54 | XMS_ITS | Patient Health Record ---
Author Organization [facility] Address [address] [address] Care Team Providers Care Side Sawyer Name Role Phone Sandra Tinsley Primary Care Provider Trey Dietz [facility] [phone] Reason For Referral No Information Plan Of Treatment No Information Insurance Providers Payer Name Payer Address Payer Phone Subscriber Number Group Number Insured Name Patient Relationship to Insured Coverage Start Date Coverage End Date Dental CareSourc e [facility] [address] [place] [address] [id number] FERNANDA CLIFTON Self - patient is the insured 3 [employer] [facility] CareSourcePO [address] [place] [phone] [id number], LAURENSelf - patient is the [id number] 2022
--- OUTSIDE RECORDS SUMMARY | 2025-06-21 13:54 | XMS_ITS | Encounter Summary ---
Author Organization [facility] Address [address] [place] [address] Care Team Providers Care Geriatric Physical Therapist Name Role Phone Thania Ewing MD Primary Care Provider [phone] Encounter Details DateTypeDepartmentCare Team (Latest Contact Info)Nvvvjotnstz32/12/2025linisync Result Encounter [facility] External Department Unsolicited Mohinder Mendoza, DO [address] [place], [place] [phone] Social History Tobacco UseTypesPacks/DayYears UsedDateSmoking Tobacco: Never Assessed CommentsUnknownSex and Gender InformationValueDate RecordedSex Assigned at Not on fileLegal EeaXygzwp54/01/2023 8:33 PM EDTGender IdentityNot on fileSexual OrientationNot on filedocumented as of this encounter Plan of Treatment DateTypeDepartbronson methodist hospitalCare Team (Latest Contact Info)Rylghcrpthv46/23/2025 9:10 AM ESTRoutine [facility] [address] [place] [phone] Mohinder Mendoza, DO [address] [place], [place] [phone] documented as of this encounter Procedures Procedure NamePriorityDate/TimeAssociated DiagnosisCommentsUS OB TRANSVAGINAL 06/13/2025 8:07 AM EST documented in this encounter Results * US OB TRANSVAGINAL (06/13/2025 8:07 AM EST)Anatomical RegionLateralityModality OtherSpecimen (Source)Anatomical Location / LateralityCollection Method / VolumeCollection TimeReceived Time06/13/2025 8:07 AM EST Narrative 06/13/2025 8:10 AM EST [facility] ?[address] ? [place] [address] ? Ultrasound Report ? Signed ? Patient: FERNANDA CLIFTON A ? MR#: [id number] ?? : 1995 ?Acct:[id number] ?? Age/Sex: 29 / F ?ADM Date: 06/12/25 ?? Loc: US ? Attending Dr: Mohinder Mendoza D.O. ? Ordering Physician: Mohinder Mendoza D.O. ?? Date of Service: 06/12/25 ?? Procedure(s): US OB transvaginal ?? Accession Number(s): [id number] ? cc: Mohinder Mendoza D.O.; THANIA EWING ? [facility] ? [address] ? [place] [address] ? Patient Name: ?? FERNANDA CLIFTON ? MRN: [facility]:[id number] ? date: 1995 ?Sex: F ?? Assigned Patient Location: ?? Current Patient Location: ? Accession/Order Number: [id number] ?? Exam Date: 06/12/2025 ??19:50 ?Report Date: 06/13/2025 ??08:07 ? At the request of: ?? MOHINDER ??KELLY ??DO ? Procedure: ??US OB transvaginal ? ULTRASOUND OB TRANSVAGINAL ? CLINICAL DATA: Missed menses ? COMPARISON: None ? Real-time ultrasound evaluation the pelvis was performed utilizing a ?? transvaginal approach. ? There is a gestational sac within the uterus. ??A yolk sac and pole are ?? seen. ??The crown-rump length measurement of 2.1 cm correlates with an ?? ultrasound age of 8 weeks 5 days. ??The estimated date of delivery is ?? 01/17/2026. ??There is cardiac activity with heart rate of 168 bpm. ??The ?? cervix is closed with estimated length of 4.4 cm. ??Both ovaries are ?? visualized. ??The left measures 2.5 x 1.1 x 1.4 cm. ??The right ovary measures ?? 3.6 x 1.9 x 2.1 cm. ??There are no adnexal cysts. ??No free fluid is seen. ? US/US OB transvaginal ?? IMPRESSION: ? SINGLE LIVE INTRAUTERINE GESTATION WITH ULTRASOUND AGE OF 8 WEEKS 5 DAYS ? Impression dictated by: Lisa Wang M.D. ??06/13/2025 8:07 AM ? Dictation Location: [place] [address] ? Electronically authenticated by: [id number] ??Y ?? Date: 06/13/2025 ??08:07 ? Dictated By: ?Lisa Wang M.D. ? Signed By: ?06/13/25809 ? DD/ 0807 ? TD/TT: ? Fountain Supervisor: Procedure Note Radiology, Radiologist, MD - 06/13/2025 [place] [address] Ultrasound Report Signed Patient: FERNANDA CLIFTON AMR#: [id number] : 1995Acct:[id number] Age/Sex: 29 / FADM Date: 06/12/25 Loc: US Attending Dr: Mohinder Mendoza D.O. Ordering Physician: Mohinder Mendoza D.O. Date of Service: 06/12/25 Procedure(s): US OB transvaginal Accession Number(s): [id number] cc: Mohinder Mendoza D.O.; THANIA EWING [address] [address] Patient Name: FERNANDA CLIFTON MRN: [facility]:[id number] date: 1995 Sex: F Assigned Patient Location: US Current Patient Location: Accession/Order Number: [id number] Exam Date: 06/12/2025 19:50 Report Date: 06/13/2025 08:07 At the request of: MOHINDER MENDOZA DO Procedure: US OB transvaginal ULTRASOUND OB TRANSVAGINAL CLINICAL DATA: Missed menses COMPARISON: None Real-time ultrasound evaluation the pelvis was performed utilizing a transvaginal approach. There is a gestational sac within the uterus. A yolk sac and poleare seen. The crown-rump length measurement of 2.1 cm correlates with an ultrasound age of 8 weeks 5 days. The estimated date of delivery is 01/17/2026. There is cardiac activity with heart rate of 168 bpm.The cervix is closed with estimated length of 4.4 cm. Both ovaries are visualized. The left measures 2.5 x 1.1 x 1.4 cm. The right ovarymeasures 3.6 x 1.9 x 2.1 cm. There are no adnexal cysts. No free fluid is seen. US/US OB transvaginal IMPRESSION: SINGLE LIVE INTRAUTERINE GESTATION WITH ULTRASOUND AGE OF 8 WEEKS 5 DAYS Impression dictated by: Lisa Wang M.D. 06/13/2025 8:07 AM Dictation Location: [place] [address] Electronically authenticated by: [id number] Y Date: 508:07 Dictated By: Lisa Wang M.D. Signed By:06/13/25 0810 DD/ 6 TD/TT: Fountain Supervisor: Authorizing ProviderResult TypeResult StatusCorey Kelly DOCLINISYNC IMAGINGFinal Result documented in this encounter Visit Diagnoses Not on filedocumented in this encounter Care Teams Team MemberRelationshipSpecialtyStart DateEnd Date Thania Ewing MD [address] [place] [address] PCP - GeneralFamily Ibiaanvb67/7/23documented as of this encounter
--- OUTSIDE RECORDS SUMMARY | 2025-06-21 13:55 | XMS_ITS | Clinical Summary ---
Author Organization [facility] Address [address] [place] [address] Care Team Providers Care Funeral Prearrangement Counselor Name Role Phone Unavailable Primary Care Provider Unavailabl e Medications No known medications Active Problems No known active problems Family History Medical HistoryRelationCommentsUterine CancerMaternal Sxxpjamugcy09'sColon CancerMaternal Uncle20'sBreast CancerMotherPancreatic CancerNo Family History Prostate CancerNo Family HistoryRelationStatusCommentsMaternal Grandmother Maternal UncleAliveMother Social History Tobacco UseTypesPacks/DayYears UsedDateSmoking Tobacco: NeverSmokeless Tobacco: Never Tobacco Cessation:Counseling Given: Not Answered Alcohol UseStandard Drinks/WeekCommentsYes0 (1 standard drink = 0.6 oz pure alcohol)sociallyCommentsUnknownSex and Gender InformationValueDate RecordedSex Assigned at BirthNot on fileLegal TcoSjxigc64/18/2023 9:17 AM EST Gender IdentityNot on fileSexual OrientationNot on file Last Filed Vital Signs Vital SignReadingTime TakenCommentsBlood Pressure--Pulse--Temperature-- Respiratory Rate--Oxygen Saturation--Inhaled Oxygen Concentration--Tdorfy54.9 kg (143 lb)08/25/2022 1:56 PM XKJSbrhnb764 cm (5' 3 )08/25/2022 1:56 PM ESTBody Mass Index25.33008/25/2022 1:56 PM EST Plan of Treatment Health MaintenanceDue DateLast DoneCommentsAnxiety Nwjejkuxw22/28/2012Depression Dneymyixk80/28/2012HIV Iaazmwdbo43/28/2012Hepatitis C Dmsqiaqtm15/28/2012 Hepatitis B Vaccine (1 of 3 - 19+ 3-dose series)2012HPV Vaccine (1 - 3- dose SCDM series)2020ervical Cancer Yihrmpqpi81ovid-19 Vaccine (2024- season)2025Influenza Vaccine (#1)2025 DTaP,Tdap,Td Vaccine (2 - Td or Tdap) Insurance
--- OUTSIDE RECORDS SUMMARY | 2025-06-21 13:55 | XMS_ITS | Clinical Summary ---
Author Organization [facility] Address [address] [place] [address] Care Team Providers Care Generation Technologist Name Role Phone Asad Owens DO Primary Care Provider Marlys West SENIOR BRAND MANAGER Unavailable Connie Peterson SENIOR BRAND MANAGER Unavailable Joanna SuhC Unavailable [phone] Su Gotti SENIOR BRAND MANAGER Unavailable [phone] Siobhan Ortega MD Unavailable Allergies No known active allergies Medications MedicationSigDispense QuantityRefillsLast FilledStart DateEnd DateStatus hydrOXYzine (VISTARIL) 25 MG capsule Indications:Interstitial cystitisTake one capsule (25 mg) by mouth nightly. . 30 capsule 5Active Active Problems ProblemNoted DateDiagnosed DateS/P robot-assisted surgical bhssrfyph95/11/2025 Assessment & Plan (09/12/2024 12:42 PM EST): [...] 4:30pm or on weekends, pleasepage *1817 Migraine lyeydswj09/20/7622Ykavdi67/20/2025Pelvic pain in fnqtiv9008/17/2024Pain of left lower sglhzjikj04/06/2024History of multiple efnckilwkadl99/22/2023 Assessment & Plan (08/21/2024 12:34 PM EST): Patient counseled on habitual miscarriage causes. She states that her primary BPM ANALYST thoroughly investigated this. Discussed checking fasting insulin and glucose for insulin resistance diagnosis. Advised on the increased risk of missed AB due to insulin resistance. Advised on reviewing labs performed by her primary BPM ANALYST. Patient was advised to send the lab results through [facility]. Discussed performing a hysteroscopy D&C for evaluation of uterine cavity. She states that her primary BPM ANALYST diagnosed her with a luteal phase deficit and recommended progesterone in early part of the once she identified that she had conceived. She has not conceived since she was given this advice. Nipple rcknfsdes58/10/2562Vibvczeyqsdsswh21/10/2023Vitamin D deficiency 10/08/20224591Zklqxy23/09/2023ilbert's htzcilaw69/09/2023Myofascial muscle pain 04/02/2022bnormal finding on pshezojrrwy32/14/2021ody mass index (BMI) of 25.0 to 29.9010/13/2020elvic congestion nmovtpmw29/14/2021ischarge from breast 10/13/2020Mass of xlhsum0910/13/20203506Uivkyewx40/18/2021Interstitial cystitis 08/19/2020 Overview (10/13/2020): 09/26/2020: ROBOTIC ASSISTED [...] outpatient bladder instillations and intra-operative hydro-distention. Febrile ldvumwfhku41/18/2021Irritable bowel owsjoekz18/18/2021Menorrhagia 08/19/2020erous otitis media08/19/20207337Zdtkmcf61/18/2021llergic rhinitis 08/19/2020ndometriosis determined by pjnuwixlelg80/13/2021 Overview (08/21/2024): >>OVERVIEW FOR CHRONIC PELVIC PAIN [...] reports she had a laparoscopy procedure in [id number]. [place] family hx (mom and maternal grandma) of endometriosis. 09/25/2020: Pt presents for preoperative evaluation. She is scheduled for: ROBOTIC ASSISTED LAPAROSCOPIC EXCISION OF ENDOMETRIOSIS, CHROMOPERTUBATION, CYSTOSCOPY POSSIBLE HYDRODISTENTION, POSSIBLE IUD INSERTION ERAS PROTOCOL on 09/26 at [facility]. 09/26/2020: ROBOTIC ASSISTED LAPAROSCOPIC EXCISION OF [...] and Orilissa. Advised on side effects and mcfp use. Pt also advised on robotic assisted [...] InformationValueDate RecordedSex Assigned at BirthNot on fileLegal EiaWnioyx80/01/2019 8:56 AM EDTGender IdentityFemale 09/25/2020 11:23 AM ESTSexual LyeollizrsvAdcnjrph06/24/2021 11:23 AM EST OccupationIndustryJob Start DateJob End DateHomemakerNot on fileNot on fileNot on file Last Filed Vital Signs Vital SignReadingTime TakenCommentsBlood Ivgiunaq984/70009/28/2024 12:06 PM EST Qqjpa991109/28/2024 12:06 PM SOIKtcobefnyvd85.8 ??C (98.2 ??F)09/12/2024 2:30 PM ESTRespiratory Mlmy785109/12/2024 2:30 PM ESTOxygen Tmfyzmwlsx593%09/12/2024 2:30 PM ESTInhaled Oxygen Concentration--Hgtsvq57.1 kg (159 lb)09/28/2024 12:06 PM XIHUmdprx553 cm (5' 3 )09/28/2024 12:06 PM ESTBody Mass Index28.17009/28/2024 12:06 PM EST Plan of Treatment Health MaintenanceDue DateLast DoneCommentsMMR Vaccines (1 of 1 - Standard series)1994Depression Screening/Follow-Up (PHQ-2/9)2005Varicella Vaccines (1 of 2 - 13+ 2-dose series)2006HIV Zyemtqupz04/28/2009Hepatitis C Htjchcmxe38/28/2012Hepatitis B Vaccines (1 of 3 - 19+ 3-dose series)2012 HPV Vaccines (1 - 3-dose SCDM series)2020Wellness Visit04/02/2023 2COVID-19 Vaccine (1 - season)2025Influenza Vaccine (#1) 2025Pap SmearTetanus/Diphtheria/Pertussis (2 - Td or Tdap)Cervical Cancer Gnwniwprm37/01/2027HPV/Vyedyw6304/02/2027 04/02/2022Zoster Vaccines (1 of 2)4RSV Vaccines (1 [...] / LotCath 2.5in Expansion On-Q Silversoaker - [id number] Implanted:Qty: 2 on 09/26/2020 by Siobhan Ortega MD at [facility] - ImplantN/A: PelvisAVANOS [id number]/18/[id number] / / [id number] 5in Expansion On-Q Silversoaker - [id number] Implanted:Qty: 1 on 09/12/2024 by Siobhan Ortega MD at [facility] - ImplantAVANOS [id number] / / [id number] 5in Expansion On-Q Silversoaker - [id number] Implanted:Qty: 1 on 09/12/2024 [facility] [id number] / / [id number] 4ml Vh S/D Tisseel - [id number] Implanted:Qty: 1 on 09/26/2020 [facility] PelvisBAXTER [id number] / [id number] / Pump 600ml Dual On-Q Vilmxp-S-Ejwk - [id number] Implanted:Qty: 1 on 09/26/2020 by [facility] PelvisAVANOS [id number] / / [id number] 3 X 4in Adhesion Tc 7 Interceed - [id number] Implanted:Qty: 1 on 09/26/2020 by [facility]: YwhlexWMJIEJXV79/31/[id number] / / [id number] 5 X 6in Adhesion Tc 7 Interceed - [id number] Implanted:Qty: 1 on 09/12/2024 [id number] / / [id number] 600ml Dual On-Q Hjktdp-B-Ggty - [id number] Implanted:Qty: 1 on 09/12/2024 [facility]: AbdomenAVANOS [id number] / [id number] / Procedures Procedure NamePriorityDate/TimeAssociated DiagnosisCommentsTHINPREP PAP SMEAR Rcblcbg3704/02/2022 11:07 AM EDT Screening for malignant neoplasm of cervix REFLEX ONLY -- HIGH RISK HPV WITH GENOTYPE 16,19Qrgcfjx98/01/2022 11:07 AM EDT Screening for malignant neoplasm of cervix from Last 3 Months or Most Recently Relevant to Health Maintenance Results * High Risk HPV with Genotype 16,18 (04/02/2022 11:07 AM EDT)ComponentValueRef RangeTest MethodAnalysis TimePerformed AtPathologist SignatureHPV 16Negative Rkjxztsq81/07/2022 6:49 AM [facility] 18Negative Zmachqux18/07/2022 6:49 AM [facility], Other HR QgktcRhabahbzLqwmzurg03/07/2022 6:49 AM [facility] Specimen (Source)Anatomical Location / LateralityCollection Method / Volume Collection TimeReceived TimePap, Liquid BasedENDOCERVICAL STRUCTURE / Unknown 04/02/2022 11:07 AM EDT04/03/2022 4:28 PM EDT Narrative [facility] - 04/08/2022 6:49 AM EDT Assay performed using Keisha Cristiano 4800 system utilizing Real-Time PCR to amplify target HPV DNA. This system specifically identifies HPV16 and HPV18 while concurrently detecting the other twelve high risk types (31,33,35,39,45,51,52,56,58,59,66,68). Authorizing ProviderResult TypeResult StatusLaura Venancio Suh PA-CBODY FLUIDS AND STOOLS ORDERABLESFinal ResultPerforming OrganizationAddress City/State/ZIP CodePhone Number [facility] [address] [place] [address] * (ABNORMAL) Thinprep Pap Smear (04/02/2022 11:07 AM EDT)ComponentValueRef Range Test MethodAnalysis TimePerformed AtPathologist SignatureCase Report Gynecologic Cytology Report ? Case: [id number] ? Authorizing Provider: ??Joanna Suh, ?? Collected: ? 04/02/2022 11:07 AM ? PA-C ? Ordering Location: ? [facility] Received: ?04/03/2022 04:28 PM ? Gynecology ? First Screen: ?Daren Mix ? Pathologist: ? Jody Hardy MD ? Specimen: ?THINPREP PAP SMEAR, Cervix / Endocervix ? 04/20/2022 1:52 PM [facility]Specimen Adequacy Satisfactory for evaluation; endocervical/transformation zone component present 04/20/2022 1:52 PM [facility] LABInterpretationAtypical squamous cells of undetermined significance(A)04/20/2022 1:52 PM [facility] at 1352 EDTEducational NoteThe Pap [...] from every slide are reviewed by a superintendent operating. Specimen processing and Primary Screening performed at: [address] [id number] 1:52 PM EDT [facility]HPV ResultsHPV 16 : Negative HPV [...] for patient management. HPV testing performed at: [address] [id number] 04/20/2022 1:52 PM [facility] BRYZOR31/23/ 1:52 PM [facility] LABSpecimen (Source)Anatomical Location / LateralityCollection Method / VolumeCollection TimeReceived TimePap, Liquid BasedENDOCERVICAL STRUCTURE / Rhnklqk2304/02/2022 11:07 AM EDT04/03/2022 4:28 PM EDT Narrative Authorizing ProviderResult TypeResult StatusLaura Venancio Suh PA-C PATHOLOGY/CYTOLOGY ORDERABLESFinal ResultPerforming OrganizationAddress City/State/ZIP CodePhone Number [facility] [address] [place] [phone] from Last 3 Months or Most Recently Relevant to Health Maintenance Insurance Advance Directives For more information, please contact: [phone] * Full Code (Latest Code Status on File) Date ActivatedDate InactivatedComments09/12/2024 6:44 AM09/12/2024 11:13 AM * Full Code Date ActivatedDate InactivatedComments09/26/2020 1:59 PM2 10:04 PM * Full Code Date ActivatedDate InactivatedComments09/26/2020 9:00 AM09/26/2020 1:59 PM Care Teams Team MemberRelationshipSpecialtyStart DateEnd Date Asad Owens DO [address] [place] [address] PCP - GeneralFamily Eodsjecm23/3/20 Marlys West CNP [address] [place] [address] Obstetrics/Gynecology10/22/22 Connie Peterson CNP [address] [place] [address] Nurse PractitionerObstetrics/Byzoxxejxw27/20/23 Joanna Suh PA-C [address] [place] [address] Physician Assistant09/28/23 Su Gotti CNP [address] [place] [address] Nurse PractitionerNurse Bexzqqjtnusf61/18/24 Siobhan Ortega MD [address] [place] [address] Consulting PhysicianObstetrics/Gynecology09/01/24
--- OUTSIDE RECORDS SUMMARY | 2025-06-21 13:55 | XMS_ITS | Encounter Summary ---
Author Organization [facility] Address [address] [place] [address] Care Team Providers Care Utility Repairer Name Role Phone Asad Owens MD Primary Care Provider [phone] Encounter Details DateTypeDepartmentCare Team (Latest Contact Info)Mnvvecuhcez40/10/2025Telephone [facility] [place] [facility] [address] [place] [address] Patrizia Sethi MA Social History Tobacco UseTypesPacks/DayYears UsedDateSmoking Tobacco: Never Assessed CommentsUnknownSex and Gender InformationValueDate RecordedSex Assigned at Not on fileLegal OmjSswavq58/01/2023 8:33 PM EDTGender IdentityNot on fileSexual OrientationNot [...] that an order could be sent to [facility], and she may contact them to check for an earlier appointment. Patient agreed with this plan. Advised patient to monitor for worsening pain or heavy bleeding and to proceed to the ED if these symptoms occur. Patient verbalized understanding. Order faxed to [facility] documented in this encounter Plan of Treatment DateTypeDepartmentCare Team (Latest Contact Info)Mylttnxhgkq45/23/2025 9:10 AM ESTRoutine [facility] [place] [facility] [address] [place] [address] Ahsan Mendoza DO [address] [place] [address] documented as of this encounter Visit Diagnoses Not on filedocumented in this encounter Care Teams Team MemberRelationshipSpecialtyStart DateEnd Date Asad Owens MD [address] [place] [address] PCP - GeneralFamily Wbtxdjjf17/7/23documented as of this encounter
--- OUTSIDE RECORDS SUMMARY | 2025-06-21 13:55 | XMS_ITS | Clinical Summary ---
Author Organization [facility] Address [address] [place] [address] Care Team Providers Care Drapery Hanger Name Role Phone Thania Ewing MD Primary Care Provider [phone] Allergies Active AllergyReactionsCriticalityNoted DateComments Sulfamethoxazole-Chfivxrtsvux72/27/2024 Other Reaction(s): hives Medications MedicationSigDispense QuantityRefillsLast FilledStart DateEnd DateStatus Vit w/Mg-Mgvrkfyqa-MO (PNV PO) Take by mouthActive Progesterone 200 MG suppository Indications:History of miscarriageInsert 200 mg into the vagina at bedtime Insert suppository vaginally every night at bedtime until 12 weeks gestation 30 suppository Expired Encounters DateTypeDepartmentCare CflxNeoxgwjchls89/20/2025 1:30 PM ESTInitial [facility] [place] [facility] [address] [place] [address] [place]: 24f1d7908/13/2024linisync Result Encounter [facility] Department Unsolicited Mohinder Mendoza DO 06/11/2025Telephone [facility] [place] [facility] [address] [place] [address] Patrizia Setih MA 05/16/2025Telephone [facility] [place] [facility] [address] [place] [address] Mohinder Mendoza DO 05/14/2025 8:40 AM EDTOffice Visit [facility] [place] [facility] [address] [place] [address] Mohinder Mendoza DO History of miscarriage; Threatened miscarriage ([facility]); Missed menses; Positive urine test ([facility])05/14/2025bstract [facility] [place] [facility] [address] [place] [address] Mohinder Mendoza DO 05/14/2025Telephone [facility] [place] [facility] [address] [place] [address] Unallocated, Nomkrista Lemon MD 05/14/2025amboo flowsheet [facility] [place] [facility] [address] [place] [address] Mohinder Mendoza DO 05/10/2025bstract [facility] [place] [facility] [address] [place] [address] Mohinder Mendoza DO 05/10/2025bstract [facility] [place] [facility] [address] [place] [address] Mohinder Mendoza DO from Last 3 Months Social History Tobacco UseTypesPacks/DayYears UsedDateSmoking Tobacco: Never Assessed Estimated Date of RwwixnkuNsywvpdfMfx11/18/2026Based on UltrasoundSex and Gender InformationValueDate RecordedSex Assigned at BirthNot on fileLegal SexFemale 11/30/2022 8:33 PM EDTGender IdentityNot on fileSexual OrientationNot on file Last Filed Vital Signs Vital SignReadingTime TakenCommentsBlood Weodavth350/7006/21/2025 1:45 PM EST Pulse--Temperature--Respiratory Rate--Oxygen Saturation--Inhaled Oxygen Concentration--Yxdxxv07.3 kg (174 lb 12 oz)06/21/2025 1:45 PM SETRywxrh650.6 cm (5' 4 )06/21/2025 1:46 PM ESTBody Mass Povac9856/20/2025 1:45 PM EST Plan of Treatment DateTypeDepartmentCare Team (Latest Contact Info)Ruylrygsglk87/23/2025 9:10 AM ESTRoutine [facility] [place] [facility] [address] [place] [address] Mohinder Mendoza, [address] [place] [address] Procedures Procedure NamePriorityDate/TimeAssociated DiagnosisCommentsUS OB TRANSVAGINAL 06/13/2025 8:07 AM EST from Last 3 Months Results * US OB TRANSVAGINAL (06/13/2025 8:07 AM EST)Anatomical RegionLateralityModality OtherSpecimen (Source)Anatomical Location / LateralityCollection Method / VolumeCollection TimeReceived Time06/13/2025 8:07 AM EST Narrative 06/13/2025 8:10 AM EST [facility] ?[address] ? [place] [address] ? Ultrasound Report ? Signed ? Patient: FERNANDA CLIFTON A ? MR#: [id number] ?? : 1995 ?Acct:[id number] ?? Age/Sex: 29 / F ?ADM Date: 06/12/25 ?? Loc: US ? Attending Dr: Mohinder Mendoza D.O. ? Ordering Physician: Mohinder Mendoza D.O. ?? Date of Service: 06/12/25 ?? Procedure(s): US OB transvaginal ?? Accession Number(s): [id number] ? cc: Mohinder Mendoza D.O.; THANIA EWING ? [facility] ? [address] ? [place] [address] ? Patient Name: ?? FERNANDA CLIFTON ? MRN: [id number] ? date: 1995 ?Sex: F ?? Assigned Patient Location: US ?? Current Patient Location: ? Accession/Order Number: [id number] ?? Exam Date: 06/12/2025 ??19:50 ?Report Date: [...] M.D. ??06/13/2025 8:07 AM ? Dictation Location: [place] [address] ? Electronically authenticated by: [id number] ??Y ?? Date: 06/13/2025 ??08:07 ? Dictated By: ?Lisa Wang M.D. ? Signed By: ?06/13/25 0810 ? DD/ 0807 ? TD/TT: ? Facing Baster Jumpbasting: Procedure Note Radiology, Radiologist, - 06/13/2025 [place] [address] Ultrasound Report Signed Patient: FERNANDA CLIFTON AMR#: [id number] : 1995Acct:[id number] Age/Sex: 29 / FADM Date: 06/12/25 Loc: US Attending Dr: Mohinder Mendoza D.O. Ordering Physician: Mohinder Mendoza D.O. Date of Service: 06/12/25 Procedure(s): US OB transvaginal Accession Number(s): [id number] cc: Mohinder Mendoza D.O.; THANIA EWING [place] [address] Patient Name: FERNANDA CLIFTON MRN: [facility]:[id number] date: 1995 Sex: F Assigned Patient Location: [place] Current Patient Location: Accession/Order Number: [id number] Exam Date: 06/12/2025 19:50 Report Date: 06/13/2025 [...] Wang M.D. 06/13/2025 8:07 AM Dictation Location: [place] [address] Electronically authenticated by: [id number] Y Date: 508:07 Dictated By: Lisa Wang M.D. Signed By:06/13/25 0810 DD/ 0807 TD/TT: Facing Baster Jumpbasting: Authorizing ProviderResult TypeResult StatusCorey Kelly DOCLINISYNC IMAGINGFinal Result from Last 3 Months Insurance Care Teams Team MemberRelationshipSpecialtyStart DateEnd Date Thania Ewing MD [address] [place] [address] [facility] - [facility] Ltwclbru48/7/23
--- OUTSIDE RECORDS SUMMARY | 2025-06-21 13:56 | XMS_ITS | CCD ---
Author Organization [facility] Care Team Providers Care Inspector Plating Name Role Phone Amanda Martinez Unavailable Unavailable Family Physician Unavailable Unavailable Inkki vailable Family Physician Unavailable Unavailable Nikki vailable Thania Owens Primary Care Provider THANIA OWENS Primary Care Unavailable SOMASUNDARAM, SHIVKAMINI Referring Unavail able SOMASUNDARAM, SHIVKAMINI Attending Unavail able SOMASUNDARAM, SHIVKAMINI Admitting Unavail able Angela HARVEY Primary Care Physician Thania Owens DO Primary Care Provider Thania Owens DO Primary Care Provider [phone] Maryann Rashid Primary Care Physician [phone] Unavailable Primary Care Provider Unavailabl MILADIS Brown Referring Unavailable MILADIS BUTLER Referring Unavailable MILADIS BUTLER Attending Unavailable RG TIDWELL Referring Unavailable MILADIS BUTLER Attending Unavailable MARIE SO Referring Unavailable Marlys West CNP Unavailable Connie Peterson CNP Unavailable [phone] Thania OWENS Primary Care Physician Ahsan MENDOZA [...] Botello Attending Unavailable Joanna Suh PA-C Unavailable [phone] Su Gotti CNP Unavailable Darlin Ortega MD [...] Unavailable Thania Owens DO Primary Care Provider Brown DO, Jurgen M Emergency Provider Brown DO, Jurgen M Attending Provider AHSAN MENDOZA Attending Unavailable Thania Owens MD Primary Care Provider [phone] Brown, Jurgen M Attending Unavailable Thania Owens [...] of OnsetReaction(s) Facility (20 sources)Ibuprofen; Translations: [IBUPROFEN]Drug [id number] (See Comments)[facility] (20 sources)Sulfamethoxazole / Trimethoprim; Translations: [SULFAMETHOXAZOLE-TRIMETHOPRIM]Drug Fnhlciq51-06-5953BsizkGomvEtucjk (13 sources)Ibuprofen; Translations: [Motrin][facility] ([facility] sources)Sulfamethoxazole / Trimethoprim; Translations: [Bactrim]Drug Allergy [facility] (13 sources)Sulfamethoxazole / Trimethoprim; Translations: [Bactrim DS][facility] (13 sources)No Known Medication Allergies; Translations: [No Known Medication Allergies]Propensity to adverse reactions (disorder)[facility] (3 sources)Sulfamethoxazole; Translations: [sulfamethoxazole]Drug Allergy 38-87-4936GsmtVgfofaufqGreen [facility] (3 sources)Trimethoprim; Translations: [trimethoprim]Drug Vdtqgev31-39-6351XjtuThe [facility] Medications Current Medications MedicationDrug Class(es)DatesSig (Normalized)Sig (Original)albendazole 200 mg oral tablet (10 sources)AntihelminthicStart: 98-85-1506zqur 2 tablets by mouth once at mealtimealbendazole 200 mg oral tablet 400 mg = 2 tab(s), Oral, Once, with food, # 2 tab(s), Refills(s) 0, Pharmacy: [facility]/pharmacy #[id number], 160, cm, 04/17/24 18:27:00 EDT, Height/Length Dosing, 64, kg, 04/17/2418:27:00 EDT, Weight Dosing Start Date: 04/17/24 Status: Ordered Quantity: 2.0 Unit: tab(s) Repeat number: 1 Indications: Helminthiasis, unspecified; Acute bronchitis, unspecified;200 actuat albuterol 0.09 mg/actuat dry powder inhaler (3 sources)beta2-Adrenergic AgonistStart: 04-17-2024 End: 53-77-9887ooly 2 puff(s) by inhalation every four hours for wheezing albuterol 90 mcg/inh inhalation powder 2 puff(s), Inhalation, q4hr for wheezing or SOB for 7 day(s), 8 gm, Refill(s) 11, [facility]/pharmacy #[id number], 160, cm, 04/17/24 18:27:00 EDT, Height/Length Dosing, 64, kg, 04/17/24 18:27:00 EDT, Weight Dosing Start Date: 04/17/24 Stop Date: 07/10/24 Status: Orderedbenzonatate 100 mg oral capsule (3 sources)Non-narcotic AntitussiveStart: 04-17-2024 End: 66-58-2870pmvm 1 capsule by mouth three times dailyTessalon 100 mg Cap 100 mg = 1 cap(s), Oral, TID, X 7 day(s), # 21 cap(s), Refills(s) 0, Pharmacy: [facility]/pharmacy #[id number], 160, cm, 04/17/24 18:27:00 EDT, Height/Length Dosing, 64, kg, 04/17/24 18:27:00 EDT, Weight Dosing Start Date: 04/17/24 Stop Date: 04/24/24 Status: Orderedbetamethasone 0.5 mg/ml / clotrimazole 10 mg/ml topical cream (3 sources)Azole Antifungal, CorticosteroidStart: 08-16-2020 End: 20-90-6468tziqrnjjnivg-betamethasone (Lotrisone) cream Apply to affected area 2 times daily . 15 g 0 08/21/2020 09/17/2020 Activecephalexin 500 mg oral capsule (4 sources)Cephalosporin AntibacterialStart: 70-41-2903bhha 1 capsule by mouth twice dailyStart: 01-01-2025 End: 15-42-5798qaxk 1 capsule by mouth every twelve hoursKeflex 500 mg Cap 500 mg = 1 cap(s), Oral, q12hr, X 7 day(s), # 14 cap(s), Refills(s) 0, [id number], cm, 12/29/24 13:33:00 EDT, Height/Length Dosing, 73.3, kg, 12/29/24 13:33:00 EDT, Weight Dosing Start Date: 01/01/25 Stop Date: 01/08/25 Status: Ordered Quantity: 14.0 Unit: cap(s) Repeat number: 1Start: 10-09-2024 End: 89-12-6266ekoe 1 capsule by mouth twice dailycephALEXin (KEFLEX) 500 MG capsule Indications: Acute cystitis without hematuria Take 1 (one) capsule (500 mg total) by mouth 2 (two) times a day for 7 days . 14 capsule 10/09/2024 10/16/2024 Activeciprofloxacin 500 mg oral tablet (2 sources)Quinolone AntimicrobialStart: 01-05-2025 End: 21-91-1531twpg 1 tablet by mouth every twelve hoursCipro 500 mg Tab 500 mg = 1 tab(s), Oral, q12hr, X 7 day(s), # 14 tab(s), Refills(s) 0, [id number], cm, 01/05/25 13:23:00 EDT, Height/Length Dosing, 73.6, kg, 01/05/25 13:23:00EDT, Weight Dosing Start Date: 01/05/25 Stop Date: 01/12/25 Status: Ordered Quantity: 14.0 Unit: tab(s) Repeat number: 1 Indications: Urinary tract infection, site not specified;Start: 49-31-2332uqpg 1 tablet by mouth twice dailyCipro 500 mg Tab 500 mg = 1 tab(s), Oral, BID, # 14 tab(s), Refills(s) 0, Pharmacy: [facility] #[id number], 160, cm, 01/03/25 17:40:00 EDT, Height/Length Dosing, 73.3, kg, 01/03/25 17:40:00 EDT, Weight Dosing Start Date: 01/03/25 Status: Ordered Quantity: 14.0 Unit: tab(s) Repeat number: 1docusate sodium 100 mg oral capsule (3 sources)Start: 07-15-2024 End: 17-53-0354mqnf 1 capsule by mouth twice dailydocusate sodium 100 mg Cap 100 mg = 1 cap(s), Oral, BID, X 7 day(s), # 14 cap(s), Refills(s) 0, Pharmacy: [facility] #[id number], 160, cm, 07/15/24 19:11:00 EST, Height/Length Dosing, 74.1, kg, 07/15/24 19:11:00 EST, Weight Dosing Start Date: 07/15/24 Stop Date: 07/22/24 Status: OrderedStart: 09-26-2020 End: 48-76-9321wnst 100 mg by mouth twice mg, Oral, 2 times daily, First dose on Mary 09/26/20 at 2100 Hold for loose stools DO NOT CRUSH OR CHEW.doxycycline monohydrate 100 mg oral capsule (3 sources)Tetracycline-class DrugStart: 04-17-2024 End: 37-06-1906qktr 1 capsule by mouth twice dailydoxycycline monohydrate 100 mg oral capsule 100 mg = 1 cap(s), Oral, BID, X 7 day(s), # 14 cap(s), Refills(s) 0, Pharmacy: [id number], 160, cm, 04/17/24 18:27:00 EDT, Height/Length Dosing, 64, kg, 04/17/24 18:27:00 EDT, Weight Dosing Start Date: 04/17/24 Stop Date: 04/24/24 Status: OrderedhydrOXYzine hydrochloride 25 mg oral tablet (5 sources)AntihistamineStart: 01-80-3428emge 1 tablet by mouth at bedtime hydrOXYzine hydrochloride 25 mg Tab 25 mg = 1 tab(s), Oral, Bedtime, # 30 tab(s), Refills(s) 11, [id number] 162, cm, 02/08/25 11:05:00 EDT, Height/Length Dosing, 71.7, kg, 02/08/2511:05:00 EDT, Weight Dosing Start Date: 02/08/25 Status: Ordered Quantity: 30.0 Unit: tab(s) Repeat number: 12 Indications: Interstitial cystitis (chronic) without hematuria;Start: 09-28-2024 take 1 capsule by mouth once dailyhydrOXYzine (VISTARIL) 25 MG capsule Indications: Interstitial cystitis Take one capsule (25 mg) bymouth nightly. . 30 capsule 3 09/28/2024 ActiveStart: 10-09-2020 End: 34-19-7203cnfi 1 capsule by mouth once dailyhydrOXYzine (VISTARIL) 25 MG capsule Take 1 (one) capsule (25 mg total) by mouth nightly . 30 capsule 3 10/09/2020 02/06/2021 Activeiv contrast (will be provided with radiology test) (1 source)Start: 08-25-2022 End: 54-59-0125lp contrast (will be provided with radiology test) [...] oral tablet (2 sources)Nitroimidazole AntimicrobialStart: 04-03-2022 End: 99-55-6328aequ 1 tablet by mouth twice daily at mealtimemetroNIDAZOLE (FLAGYL) 500 MG tablet Indications: BV (bacterial vaginosis) Take 1 (one) tablet (500mg total) by mouth 2 (two) times a day with meals for 7 days . 14 tablet 0 04/03/2022 04/10/2022 ActiveStart: 09-26-2020 End: 98-98-7521oacpiMJUUAFHV (FLAGYL) IVPB 500 mg24 hr mirabegron 25 mg extended release oral tablet (1 source)beta3-Adrenergic AgonistStart: 27-08-8565tvjd 1 tablet by mouth once dailymirabegron 25 mg oral tablet, extended release 25 mg = 1 tab(s), Oral, Daily, # 30 tab(s), Refills(s) 11, Pharmacy: [id number], 162, cm, 02/08/25 11:05:00 EDT, Height/Length Dosing, 71.7, kg,02/08/25 11:05:00 EDT, Weight Dosing Start Date: 02/08/25 Status: Ordered Quantity: 30.0 Unit: tab(s) Repeat number: 12naproxen 500 mg oral tablet (20 sources)Nonsteroidal Anti-inflammatory DrugStart: 05-30-2021 End: 10-33-2230yhjr 1 tablet by mouth twice daily as needed for painnaproxen 500 mg Tab 500 mg = 1 tab(s), Oral, BID, PRN Pain, X 7 day(s), # 14 tab(s), Refills(s) 0, Pharmacy: [facility] #[id number], 160, cm, 07/15/24 19:11:00 EST, Height/Length Dosing, 74.1, kg, 07/15/24 19:11:00 EST, Weight Dosing Start Date: 07/15/24 Stop Date: 07/22/24 Status: Orderednitrofurantoin, macrocrystals 25 mg / nitrofurantoin, monohydrate 75 mg oral capsule (2 sources)Nitrofuran AntibacterialStart: 10-02-2024 End: 46-38-8379rkwr 1 capsule by mouth twice dailynitrofurantoin, macrocrystal- monohydrate, (Macrobid) 100 MG capsule Indications: Acute cystitis without hematuria Take 1 (one) capsule (100 mg total) by mouth 2 (two) times a day for 7 days . 14 capsule 10/02/2024 10/09/2024 Activeomeprazole 40 mg delayed release oral capsule (12 sources)Proton Pump InhibitorStart: 49-54-0958prgh 1 capsule by mouth once dailyomeprazole 40 mg Cap-DR 40 mg = 1 cap(s), Oral, Daily, # 30 cap(s), Refills(s) 0, Pharmacy: [facility] #[id number], 160, cm, 10/02/22 14:06:00 EST, Height/Length Dosing, 63, kg, 10/02/22 14:06:00 EST, Weight Dosing Start Date: 10/02/22 Status: Orderedoxybutynin chloride 5 mg oral tablet (1 source)Cholinergic Muscarinic AntagonistStart: 46-77-9190jlyw 1 tablet by mouth three times daily as neededoxybutynin 5 mg Tab 5 mg = 1 tab(s), Oral, TID, PRN for urinary discomfort, # 30 tab(s), Refills(s)1, Pharmacy: [facility]/pharm[facility] #[id number], 162, cm, 03/27/25 5:54:00 EDT, Height/Length Dosing, 74, kg, 03/27/25 5:54:00 EDT, Weight Dosing Start Date: 04/03/25 Status: Ordered Quantity: 30.0 Unit: tab(s) Repeatnumber: 2 Indications: Interstitial cystitis (chronic) without hematuria;phenazopyridine hydrochloride 200 mg oral tablet (1 source)Start: 10-09-2024 End: 89-70-7039ytqp 1 tablet by mouth three times dailyphenazopyridine (PYRIDIUM) 200 MG tablet Indications: Acute cystitis without hematuria Take 1 (one)tablet (200 mg total) by mouth 3 (three) times a day for 2 days . 6 tablet 10/09/2024 10/11/2024 Activepolyethylene glycol 3350 03482 mg powder for oral solution (7 sources)Osmotic LaxativeStart: 94-19-4608hztntypezgpd glycol 3350 Oral Pwdr for Recon 17 gram, Oral, Daily, dissolve in water before taking,# 527 gram, Refills(s) 0, Pharmacy: [facility]/pharm[facility] #[id number], 160, cm, 07/15/24 19:11:00 EST, Height/Length Dosing, 74.1, kg, 07/15/24 19:11:00 EST, Weight Dosing Start Date: 07/15/24 Status: Ordered Quantity: 527.0 Unit: g Repeat number: 1predniSONE 20 mg oral tablet (3 sources)Start: 04-17-2024 End: 98-15-4659ekuc 2 tablets by mouth once dailypredniSONE 20 mg Tab 40 mg = 2 tab(s), Oral, Daily, X 5 day(s), # 10 tab(s), Refills(s) 0, Pharmacy: [facility]/pharm[facility] #[id number], 160, cm, 04/17/24 18:27:00 EDT, Height/Length Dosing, 64, kg, 04/17/24 18:27:00 EDT, Weight Dosing Start Date: 04/17/24 Stop Date: 04/22/24 Status: OrderedProgesterone 200 MG suppository (3 sources)Start: 05-14-2025 End: 72-70-7824Nvgeiljlmogn 200 MG suppository Indications: History of miscarriage Insert 200 mg into the vagina at bedtime Insert suppository vaginally every night at bedtime until 12 weeks gestation 30 suppository 3 05/14/2025 06/13/2025 Activeropivacaine in 0.9% sod chl/PF (ropivacaine,PF,-0.9 % sodchlor) 150 mg/30 mL (5 mg/mL) 0.5 % Syrg (1 source)Start: 06-18-2022 End: 27-11-7198msiltqycqdk in 0.9% sod chl/PF (ropivacaine,PF,-0.9 % sodchlor) 150 mg/30 mL (5 mg/mL) 0.5 % Syrg Indications: Interstitial cystitis 50 mg by instillation route once For bladder instillation for 1 dose . 10 mL 0 06/18/2022 06/18/2022 Activeropivacaine in 0.9% sod chl/PF (ROPivacaine,PF,-0.9 % sodchlor) 150 mg/30 mL (5 mg/mL) 0.5 % Syrg (1 source)Start: 10-09-2022 End: 71-76-9177rfrvadmnuuw in 0.9% sod chl/PF (ROPivacaine,PF,-0.9 % sodchlor) 150 mg/30 mL (5 mg/mL) 0.5 % Syrg Indications: Interstitial cystitis Inject 10 mL as directed once for 1 dose . 10 mL 0 10/09/2022 10/09/2022 ActiveZofran ODT 4 mg Tab-Dis (12 sources)Start: 88-36-4353nijt 1 tablet by mouth three times dailyZofran ODT 4 mg Tab-Dis 4 mg = 1 tab(s), Oral, TID, # 15 tab(s), Refills(s) 0, Pharmacy: [facility] #[id number], 160, cm, 10/02/22 14:06:00 EST, Height/Length Dosing, 63, kg, 10/02/22 14:06:00 EST, Weight Dosing Start Date: 10/02/22 Status: Ordered Completed/Discontinued Medications MedicationDrug Class(es)DatesSig (Normalized)Sig (Original)100 ml acetaminophen 10 mg/ml injection (4 sources)Start: 09-26-2020 End: 21-73-7287yywp 1000 mg intravenous route every twenty-four hours as needed 1,000 mg, Intravenous, at 400 mL/hr, Once as needed, if patient is not tolerating Oral Intake, Starting [facility] 09/26/20 at 2130, For 1 dose [] May give x1 dose 8 hours after initial dose if patient is not tolerating Oral Intake [] May Discontinue IV acetaminophen and initiate oral acetaminophen if patient tolerates Oral Intake [] Maximum dose of 4 grams in 24 hours Indication: Post-operative pain management Is patient able to take oral acetaminophen? No Start: 09-26-2020 End: 59-37-0186ojoo 1 dose by mouth every eight hours, [...] to take oral acetaminophen? NoStart: 09-26-2020 End: 41-67-1302wwyj 1 tablet by mouth every six yijck976 mg, Oral, Every 6 hours, First dose on Mary 09/26/20 at 1830 [] May start post op when patient is tolerating Oral Intake [] Do not give within 6 hours of last dose of IV acetaminophen (OFIRMEV). [] Maximum dose of 4 grams in 24 hours. acetaminophen 325 mg / oxyCODONE hydrochloride 5 mg oral tablet (5 sources)Opioid AgonistStart: 09-01-2024 End: 89-00-2762ovjz 1 tablet by mouth every six hours as needed for pain oxyCODONE-acetaminophen (Percocet) 5-325 mg per tablet Indications: Acute postoperative pain , Pelvic pain in female Take 1 (one) tablet by mouth every 6 (six) hours as needed for pain . 20 tablet 09/01/2024 10/04/2024 Discontinued (Therapy completed)Start: 09-25-2020 End: 19-44-6861jxht 1 tablet by mouth every six hours as needed for pain oxyCODONE-acetaminophen (PERCOCET) 5-325 mg per tablet Indications: Post- operative pain , Pelvic pain in female Take 1 (one) tablet by mouth every 6 (six) hours as needed for post-op pain. . 20 tablet 0 09/25/2020 10/13/2020 Discontinued (Therapy completed)amitriptyline hydrochloride 10 mg oral tablet (3 sources)Tricyclic AntidepressantStart: 10-09-2020 End: 69-66-5987yozs 1 tablet by mouth once dailyamitriptyline (ELAVIL) 10 MG tablet Take 1 (one) tablet (10 mg total) by mouth nightly . 30 tablet 3 10/09/2020 04/02/2022 Discontinued (Patient Discharge)calcium chloride 0.0014 meq/ml / potassium chloride 0.004 meq/ml / sodium chloride 0.103 meq/ml / sodium lactate 0.028 meq/ml injectable solution (3 sources)Start: 09-26-2020 End: 59-55-3520fzby 75 mL intravenous route every hour, then take 600 mL intravenous route75 mL/hr, Intravenous, Continuous, Starting Mary 09/26/20 at 1445 Saline lock if tolerating greater than 600 mL oral intakeStart: 09-26-2020 End: 82-51-9842vtityqjx ringers bolus 500 mLcelecoxib 100 mg oral capsule (1 source)Nonsteroidal Anti-inflammatory DrugStart: 09-26-2020 End: 14-34-5851osoigdsck (CELEBREX) capsule 400 mgStart: 09-26-2020 End: 21-61-0781bpwyxbxzp (CELEBREX) capsule 400 mgergocalciferol 1.25 mg oral capsule (1 source)Provitamin D2 CompoundStart: 29-25-1016djpf 1 capsule by mouth every weekVitamin D 50,000 intl units (1.25 mg) oral capsule 50,000 International_Unit = 1 cap(s), Oral, qWeek, # 4 cap(s), Refills(s) 11, Pharmacy: [id number], 160, cm, 11/27/20 10:43:00 EDT, Height/Length Dosing, 69.5, kg, 11/27/20 10:43:00 EDT, Weight Dosing Start Date: 12/04/20 Status: OrderedEthinyl Estradiol / Ferrous fumarate / Norethindrone (20 sources)EstrogenStart: 11-18-2022 End: 50-06-8343tish 1 tablet by mouth once dailyLo Loestrin Fe 1 MG-10 MCG / 10 MCG tablet TAKE ONE TAB BY MOUTH PER DAY . 11/18/2022 05/14/2025 Discontinued (Therapy completed)Start: 74-71-2510lyuf 1 tablet by mouth once dailyLo Loestrin Fe 1 MG-10 MCG / 10 MCG tablet TAKE ONE TAB BY MOUTH PER DAY . 11/18/2022 ActiveStart: 30-61-2020ymjf 1 tablet by mouth once dailyLo Loestrin Fe oral tablet TAKE ONE TAB BY MOUTH PER DAY . Start Date: 08/05/22 Status: OrderedStart: 07-02-2022 End: 57-88-3010pmxh 1 tablet by mouth once dailynorethindrone-e.estradioL-iron (Lo Loestrin Fe) 1 mg-10 mcg (24)/10 mcg (2) Tab Take one tab by mouth per day . 90 tablet 3 07/02/2022 07/19/2024 DiscontinuedStart: 45-29-5855ykan 1 tablet by mouth once dailynorethindrone-e.estradioL-iron (Lo Loestrin Fe) 1 mg-10 mcg (24)/10 mcg (2) Tab Take one tab by mouth per day . 90 tablet 3 07/02/2022 Akmyjw94 ml fentaNYL 0.05 mg/ml injection (1 source)Opioid AgonistStart: 09-26-2020 End: mcg, Intravenous, Every 5 min PRN, Pain, Starting Mary 09/26/20 at 1307, For 4 doses, PACU (only) [] Do not give more than 100 mcg while in PACU.gabapentin 100 mg oral capsule (7 sources)Anti-epileptic AgentStart: 09-01-2024 End: 84-65-2577bcyw 1-3 capsules by mouth every eight hours as needed for pain gabapentin (NEURONTIN) 100 MG capsule Indications: Acute postoperative pain , Pelvic pain in femaleTake 1-3 capsules by mouth every 8 hours as needed for pain . 30 capsule 1 09/01/2024 10/04/2024 Discontinued (Therapy completed)Start: 09-26-2020 End: 88-23-7178enrwxqjunf (NEURONTIN) capsule 100 mgStart: 70-64-2638pnzlprjrdz (NEURONTIN) capsule 600 mgStart: 09-25-2020 End: 68-70-0262wrkc 1 capsule by mouth every eight hours as needed for pain gabapentin (NEURONTIN) 100 MG capsule Indications: Post-operative pain , Pelvic pain in female Takeone capsule by mouth every 8 hours as needed for post operative pain. . 30 capsule 0 09/25/2020 10/13/2020 Discontinued (Therapy completed)1 ml heparin sodium, porcine 43101 unt/ml injection (4 sources)Unfractionated Heparin, Anti-coagulantStart: 10-09-2022 End: 77-32-1187umbcnel (porcine) injection 40,000 UnitsStart: 10-09-2022 End: 89-19-9180lvfnsry (porcine) injection 40,000 UnitsStart: 06-18-2022 End: 52-58-8194xaonvqy (porcine) injection 40,000 UnitsStart: 06-18-2022 End: 39-84-9103uktiwis (porcine) injection 40,000 Units0.5 ml HYDROmorphone hydrochloride 1 mg/ml prefilled syringe (1 source)Opioid AgonistStart: 09-26-2020 End: 37-76-9082qkwm 0.25-0.5 mg intravenous route every three hours as needed HYDROmorphone (DILAUDID) injection 0.25-0.5 mghyoscyamine sulfate 0.12 mg / methenamine 81.6 mg / methylene blue 10.8 mg / sodium phosphate, monobasic 40.8 mg oral tablet (8 sources)Oxidation-Reduction AgentStart: 11-18-2022 End: 06-76-6910mzyc 1 tablet by mouth four times daily as neededmethen-sod phos- meth blue-hyos (Urogesic-Blue) 81.6-40.8-0.12 mg Tab Indications: Interstitial cystitis Take 1 tablet by mouth 4 (four) times a day as needed . 60 tablet 1 06/01/2023 08/21/2024 Discontinued (Patient's Request)Start: 31-95-1899tosm 1 tablet by mouth four times daily as neededmethen-sod phos-meth blue-hyos (Urogesic-Blue) 81.6-40.8-0.12 mg Tab Indications: Interstitial cystitis Take 1 tablet by mouth 4 (four) times a day as needed . 4 tablet 0 10/09/2022 Active ibuprofen 800 mg oral tablet (5 sources)Nonsteroidal Anti-inflammatory DrugStart: 09-01-2024 End: 20-17-6784chdi 1 tablet by mouth every six hours as needed for pain ibuprofen (ADVIL,MOTRIN) 800 MG tablet Indications: Acute postoperative pain , Pelvic pain in female Take 1 (one) tablet (800 mg total) by mouth every 6 (six) hours as needed for pain . 30 tablet 1 09/01/2024 10/04/2024 Discontinued (Therapy completed)Start: 09-25-2020 End: 41-66-8644lltj 1 tablet by mouth every eight hours as needed for pain ibuprofen (ADVIL,MOTRIN) 800 MG tablet Indications: Post-operative pain , Pelvic pain in female Take 1 (one) tablet (800 mg total) by mouth every 8 (eight) hours as needed for pain . 30 tablet 1 09/25/2020 10/13/2020 Discontinued (Therapy completed)naloxone (NARCAN) injection 0.1 mg (1 source)Start: 09-26-2020 End: 57-11-4606kmltrgkx (NARCAN) injection 0.1 mgondansetron (ZOFRAN-ODT) disintegrating tablet 4 mg (1 source)Start: 09-26-2020 End: 29-76-9674skch 1 tablet by mouth every six hours as neededondansetron (ZOFRAN-ODT) disintegrating tablet 4 mgoxyCODONE hydrochloride 5 mg oral tablet (1 source)Opioid AgonistStart: 09-26-2020 End: 90-37-1163mpqa 5-10 mg by mouth every four hours as needed5-10 mg, Oral, Every 4 hours PRN, moderate to severe pain, Starting [facility] 09/26/20 at 1359 [] Initiatewith 5 mg [...] 5 mg/ml injection (1 source)PhenothiazineStart: 09-26-2020 End: 50-73-4414lkag 10 mg intravenous route every six hours as mg, Intravenous, Every 6 hours PRN, nausea, vomiting, Breakthrough Nausea, Starting Mary 09/26/20 at 1359 30 minutes after ondansetron (ZOFRAN) for breakthrough yjsout213 ml ropivacaine hydrochloride 2 mg/ml injection (1 source)Amide Local AnestheticStart: 09-26-2020 End: 47-87-3014lkwexwdgnwh (0.2%) (NAROPIN) infusion (PAIN BALL) 750 mL72 hr scopolamine 0.0139 mg/hr transdermal system (1 source)AnticholinergicStart: 09-26-2020 End: 27-54-1904gkgwjrujsza (TRANSDERM-SCOP) 1 mg over 3 days patch 1 patch50 ml sodium bicarbonate 84 mg/ml prefilled syringe (4 sources)Start: 10-09-2022 End: 38-99-1208erwbbg bicarbonate 8.4 % (1 mEq/mL) injection 3 mEqStart: 10-09-2022 End: 08-17-7611cbmsho bicarbonate 8.4 % (1 mEq/mL) injection 3 mEqStart: 06-18-2022 End: 71-48-1215hyfuvl bicarbonate 8.4 % (1 mEq/mL) injection 3 mEqStart: 06-18-2022 End: 90-23-9799ciurbu bicarbonate 8.4 % (1 mEq/mL) injection 3 mEqtriamcinolone acetonide 10 mg/ml injectable suspension (4 sources)CorticosteroidStart: 10-09-2022 End: 37-12-6681wleqvdsykkgue acetonide (KENALOG) injection 25 mgStart: 10-09-2022 End: 75-35-0439cehfeasqwvhdh acetonide (KENALOG) injection 25 mgStart: 06-18-2022 End: 10-15-9291rlethxakblwln acetonide (KENALOG) injection 25 mgStart: 06-18-2022 End: 00-24-0267qnsckjpfhnzxv acetonide (KENALOG) injection 25 mgVitamin D 50,000 intl units (1.25 mg) oral capsule (15 sources)Start: 24-02-6013ivps 1 capsule by mouth every weekVitamin D 50,000 intl units (1.25 mg) oral capsule 50,000 International_Unit = 1 cap(s), Oral, qWeek, # 4 cap(s), Refills(s) 11, [facility]: [id number], 160, cm, 11/27/20 10:43:00 EDT, Height/Length Dosing, 69.5, kg, 11/27/20 10:43:00 EDT, Weight Dosing Start Date: 12/04/20 Status: Ordered Problems Active Problems Problem ClassificationProblemDateDocumented DateEpisodic/ChronicAbdominal pain (20 sources)Chronic pelvic pain of female; Translations: [Pain in female pelvis] Onset: [id number] bronchitis (1 source)Acute bronchitis; Translations: [Acute bronchitis, unspecified]Onset: 91-82-2663DsystqnmEvjbdvrm of urinary tract (9 sources)History of calculus of kidney; Translations: [Personal history of urinary calculi]Onset: 27-43-2800TawsirepXlvhqqgrffhoh of surgical procedures or medical care (3 sources)Postoperative wound npkqwawxe-fbchqaahdbk64-63qvbynahecni92-95-1016Vjvccbcq Contraceptive and procreative management (2 sources)Patient encounter status; Translations: [Encounter for other general counseling and advice on contraception]EpisodicDeficiency and other anemia (14 sources)Anemia; Translations: [Anemia, unspecified]Onset: 08-21-2024 15-62-7112RspagscyBosejbbugn and other anemia (2 sources)Anemia, unspecified; Translations: [Anemia, unspecified]Onset: 41-07-4807DbasjqiuLnkoewrfymdqf (20 sources)Endometriosis (clinical); Translations: [Endometriosis, unspecified] Onset: 949610-75-8807DsncobmPqlaagwq; convulsions (20 sources)Febrile convulsion; Translations: [Simple febrile convulsions]Onset: 439459-49-6072RpadqqozPmcwarukiyoyv congenital anomalies (5 sources)Double ureter; 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]Onset: 01-03-2025 ChronicGenitourinary symptoms and ill-defined conditions (11 sources)Stress incontinence (female) (male); Translations: [Female stress incontinence]Onset: 61-11-3758YtylnesRgsqlzbafzjxl symptoms and ill-defined conditions (20 sources)Dysuria; Translations: [Dark yellow urine]Onset: 08-19-2020 45-32-3391WypmhsyvNpbwrifi; including migraine (11 sources)Migraine; Translations: [Migraine, unspecified, not intractable, without status migrainosus]Onset: 764341-12-7095SyonbedSmoaaiyudr during ; abruptio placenta; placenta previa (3 sources)Threatened miscarriage; Translations: [Threatened ]Onset: 23-54-1483AudmbkltYrovkwosaicj diseases of female pelvic organs (1 source)Bacterial vaginosis; Translations: [Acute vaginitis]Episodic Lymphadenitis (20 sources)Generalized enlarged lymph nodes; Translations: [Generalized enlarged lymph nodes]Onset: 27-13-0741JotyueoqCekrpbi and fatigue (20 sources)Ukiyhjk09-39-0515SdpxttyqDsdmduzub disorders (20 sources)Irregular periods; Translations: [Menorrhagia]Onset: 08-19-2020 Resolved: 202270-50-4839PcvwwvjXvfoxn and vomiting (6 sources)Nausea and vomiting; Translations: [Nausea with vomiting, unspecified]Onset: 52-26-7993QwetvxvrZvdqrrgbkrwn breast conditions (20 sources)Breast lump; Translations: [Discharge from the breast]Onset: 469380-19-9329MdkydjvfTrvwknjkckn chest pain (20 sources)Tight iemkh76-73-5272FbzqblvlOfotgazzybr deficiencies (20 sources)Vitamin D deficiency; Translations: [Vitamin D deficiency, unspecified]Onset: 880355-96-0294NkaxopsBamgk complications of (2 sources) with inconclusive viability, not applicable or unspecified; Translations: [ of unknown anatomic location]05-10-2025 EpisodicOther female genital disorders (20 sources)Pelvic congestion syndrome; Translations: [Other specified conditions associated with female genital organs and menstrual cycle]Onset: 572394-03-8019VnlmfryzCkosm female genital disorders (20 sources)Vaginal discharge; Translations: [Other specified noninflammatory disorders of vagina]36-32-7547KtjlcjpfRmgcd female genital disorders (4 sources)Other specified conditions associated with female genital organs and menstrual cycle; Translations:[Other specified conditions associated with female genital organs and menstrual cycle]Onset: 75-39-6751FycnrhenYvsbd gastrointestinal disorders (20 sources)Irritable bowel syndrome; Translations: [Irritable bowel syndrome without diarrhea]Onset: 417071-14-5207BaeykhuFqlhd gastrointestinal disorders (20 sources)Diarrhea; Translations: [Diarrhea, unspecified]Onset: 08-19-2020 30-96-5769GwoxsbimFbazc gastrointestinal disorders (2 sources)Abdominal bloating; Translations: [Abdominal distension (gaseous)] 12-72-9156GwsjafnoXdqnl gastrointestinal disorders (1 source)Swollen abdomen; Translations: [Abdominal distension (gaseous)]Onset: 68-63-4071RxzttznhXxkcv infections; including parasitic (1 source)Helminth infection; Translations: [Helminthiasis, unspecified]Onset: 81-17-6407EydaipszZxjkk lower respiratory disease (20 sources)Mesjjpy55-67-9856XrcrtcgpRffet nervous system disorders (1 source)Acute postoperative pain; Translations: [Other acute postprocedural pain]08-15-3208XmiqjnaiIdeiw nutritional; endocrine; and metabolic disorders (1 source)Body mass index 25-29 - overweight; Translations: [Body mass index (BMI) of 25.0 to 29.9]Onset: 373443-92-2431UkzalagHkqya nutritional; endocrine; and metabolic disorders (20 sources)Gilbert's syndrome; 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]Onset: 792249-89-5855SsgjovnAznha nutritional; endocrine; and metabolic disorders (4 sources)Gilbert syndrome; 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]Onset: 10-08-2022 ChronicOther nutritional; endocrine; and metabolic disorders (20 sources)Body mass index 25-29 - hydldqkjxv07-59-8119LulhpyvgVuvcb nutritional; endocrine; and metabolic disorders (20 sources)Overweight in adulthood with body mass index of 25 or more but less than 30; Translations: [Body mass index (BMI) 25.0-25.9, adult]Onset: 08-05-2022 EpisodicOther nutritional; endocrine; and metabolic disorders (12 sources)Overweight; Translations: [Overweight]Onset: 98-86-0959NsxnwxgcJkctv and delivery including normal (3 sources)Urine test positive; Translations: [Encounter for test, result positive]Onset: 079025-86-5196QhbhlhqnJrjvk screening for suspected conditions (not mental disorders or infectious disease) (20 sources)Mammography abnormal; Translations: [Cancer cervix screening status] Onset: 007780-06-4497VbvdwgxhRsqkz skin disorders (20 sources)Disorder of mais34-83-6134VykcgkhsAnulc upper respiratory disease (20 sources)Allergic rhinitis; Translations: [Allergic rhinitis, unspecified] Onset: 034518-75-2689PohsyjxFqnkcj media and related conditions (20 sources)Serous otitis media; Translations: [Unspecified nonsuppurative otitis media, unspecified ear]Onset: 622258-60-2466XjknpoigTykoekv cyst (10 sources)Ruptured cyst of ovary; Translations: [Ovarian cyst rupture]Onset: 704756-56-7100JqjllfkkFycmubso codes; unclassified (4 sources)Family history of breast cancer; Translations: [Family history of malignant neoplasm of breast]EpisodicResidual codes; unclassified (3 sources)At high risk for breast cancer; Translations: [Other specified personal risk factors, not elsewhereclassified]EpisodicResidual codes; unclassified (2 sources)Family history of malignant neoplasm of breast; Translations: [Family history of breast cancer]Onset: 59-63-7718RddkwwkeQizpsmcg codes; unclassified (2 sources)Other specified personal risk factors, not elsewhere classified; Translations: [At high risk for breast cancer]Onset: 13-63-7452VjxdpeflAvwizglc codes; unclassified (1 source)Postoperative state; Translations: [Other specified postprocedural states]46-32-8662MljqmwqpQnmwhgsv codes; unclassified (4 sources)Other specified postprocedural states; Translations: [Other specified postprocedural states]Onset: 13-32-7538FcuynjgqAxtocdps codes; unclassified (2 sources)H/O: miscarriage; Translations: [Personal history of other complications of , childbirth and the puerperium]23-62-1089Gtmafktl Residual codes; unclassified (1 source)Postoperative state; Translations: [Post-operative state]Syncope (20 sources)Syncope; Translations: [Syncope and collapse]Onset: 08-19-2020 51-50-9587DiqalfpaPhroeaz disorders (20 sources)Goiter; Translations: [Nontoxic goiter, unspecified]Onset: 692362-75-8784DeyspopTxveacjgqccp (1 source)Unknown / UNK(Unknown)Onset: 44-35-9337Qhmztkegcwcj (3 sources)Breast -80-7658Sndkhmjxqwzv (20 sources)Body mass index 25-29 - overweight; Translations: [Body mass index (BMI) of 25.0 to 29.9]Onset: 616931-10-6516Kgrklmdwwrgm (20 sources)Pain of right wbnuyf37-43-2239Flzvzrzmytpp (2 sources)Pre-op ExamOnset: 55-97-9517Hqxmwkubkngh (2 sources)Chronic primary bladder pain -29-2831Rhsezmx tract infections (20 sources)Chronic interstitial cystitis; Translations: [Interstitial cystitis (chronic) without hematuria]Onset: 907002-72-6697CtouzukAfgebop tract infections (20 sources)Acute cystitis; Translations: [Acute cystitis without hematuria] Onset: 391550-99-6478AtgjogpiOahjf infection (20 sources)Viral tgojbvc52-02-7386Lfptyway Past or Other Problems Problem ClassificationProblemDateDocumented DateEpisodic/ChronicOther complications of (1 source)Finding related to ; Translations: [Other specified related conditions, unspecified trimester]Onset: 91-73-4045AbemeiswBkmyz connective tissue disease (20 sources)Myofascial pain; Translations: [Myalgia, other site]Onset: 67-18-4296XpipdzktBpfxh connective tissue disease (12 sources)Pain in left lower limb; Translations: [Pain in left leg]Onset: 96-07-6617VtkncqdrAiayw female genital disorders (19 sources)Recurrent loss; 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 Ordering Physician: Ahsan Mendoza D.O. Date of Service: 06/12/25 Procedure(s): US OB transvaginal Accession Number(s): [id number] cc: Ahsan Mendoza D.O.; THANIA OWENS [place] [address] Patient Name: MILADIS CHA MRN: [facility]:[id number] date: 1995 Sex: F Assigned Patient Location: US Current Patient Location: Accession/Order Number: [id number] Exam Date: 06/12/2025 19:50 Report Date: 06/13/2025 08:07 At the request of: AHSAN MENDOZA DO Procedure: US OB transvaginal ULTRASOUND OB TRANSVAGINAL CLINICAL DATA: Missed menses COMPARISON: None Real-time ultrasound evaluation the pelvis was performed utilizing a transvaginal approach. There is a gestational sac within the uterus. A yolk sac and pole are seen. The crown-rump length measurement of 2.1 cm correlates with an ultrasound age of 8 weeks 5 days. The estimated date of delivery is 01/17/2026. There is cardiac activity with heart rate of 168 bpm. The cervix is closed with estimated length of 4.4 cm. Both ovaries are visualized. The left measures 2.5 x 1.1 x 1.4 cm. The right ovary measures 3.6 x 1.9 x 2.1 cm. There are no adnexal cysts. No free fluid is seen. US/US OB transvaginal IMPRESSION: SINGLE LIVE INTRAUTERINE GESTATION WITH ULTRASOUND AGE OF 8 WEEKS 5 DAYS Impression dictated by: Lisa Wang M.D. 06/13/2025 8:07 AM Dictation Location: [place] [address] Electronically authenticated by: [id number] Y Date: 06/13/2025 08:07 Dictated By: Lisa Wang M.D. Signed By: 06/13/25 0810 DD/ 6 TD/TT: Cutting Tool Sharpener:TBHRadiology, Radiologist, - 06/13/2025 [place] [address] Ultrasound Report Signed Patient: MILADIS CHA MR#: [id number] : 1995 Acct:[id number] Age/Sex: 29 / F ADM Date: 06/12/25 Loc: US Attending Dr: Ahsan Mendoza D.O. Ordering Physician: Ahsan Mendoza D.O. Date of Service: 06/12/25 Procedure(s): US OB transvaginal Accession Number(s): [id number] cc: Ahsan Mendoza D.O.; THANIA OWENS [place] [address] Patient Name: MILADIS CHA MRN: [facility]:[id number] date: 1995 Sex: F Assigned Patient Location: US Current Patient Location: Accession/Order Number: [id number] Exam Date: 06/12/2025 19:50 Report Date: 06/13/2025 08:07 At the request of: AHSAN MENDOZA DO Procedure: US OB transvaginal ULTRASOUND OB TRANSVAGINAL CLINICAL DATA: Missed menses COMPARISON: None Real-time ultrasound evaluation the pelvis was performed utilizing a transvaginal approach. There is a gestational sac within the uterus. A yolk sac and pole are seen. The crown-rump length measurement of 2.1 cm correlates with an ultrasound age of 8 weeks 5 days. The estimated date of delivery is 01/17/2026. There is cardiac activity with heart rate of 168 bpm. The cervix is closed with estimated length of 4.4 cm. Both ovaries are visualized. The left measures 2.5 x 1.1 x 1.4 cm. The right ovary measures 3.6 x 1.9 x 2.1 cm. There are no adnexal cysts. No free fluid is seen. US/US OB transvaginal IMPRESSION: SINGLE LIVE INTRAUTERINE GESTATION WITH ULTRASOUND AGE OF 8 WEEKS 5 DAYS Impression dictated by: Lisa Wang M.D. 06/13/2025 8:07 AM Dictation Location: [place] [address] Electronically authenticated by: [id number] Y Date: 06/13/2025 08:07 Dictated By: Lisa Wang M.D. Signed By: 06/13/25 0810 DD/ 0807 TD/TT: Cutting Tool Sharpener: GEETA HealthcareRadiology Study observation (narrative)[facility] CenterUS OB TRANSVAGINALOrdered By: Radiologist Radiology on 64-94-1654GHQO [email or web address] Work Phone: bhcg Quanton 08-29-6188Ijyg hCG Dkp0933 mIU/mLFairmont Regional Medical Center1-3 [facility] Hospital LimaComment on above:Result Comment: 'F NON < 1 - 3' ' 0.2 - 1 WEEK = 5 TO 50' ' 1 - 2 WEEKS = 50 - 500' ' 2 - 3 WEEKS = 100 - 5000' ' 3 - 4 WEEKS = 500 - 20651' ' 4 - 5 WEEKS = 1000 - 43098' ' 5 - 6 WEEKS = 25816 - 440982' ' 6 - 8 WEEKS = 14890 - 590078' ' 8 - 12 WEEKS = 97541 - 786404'Performed By: #### [id number] #### [facility] [address] [place] [address] 617[address]JgSL Quanton 01-50-0441Mnka hCG Fdf8276 mIU/mLHigh1-3Fisher Saint Luke InstituteComment on above:Result Comment: 'F NON < 1 - 3' ' 0.2 - 1 WEEK = 5 TO 50' ' 1 - 2 WEEKS = 50 - 500' ' 2 - 3 WEEKS = 100 - 5000' ' 3 - 4 WEEKS = 500 - 09490' ' 4 - 5 WEEKS = 1000 - 49290' ' 5 - 6 WEEKS = 22834 - 283982' ' 6 - 8 WEEKS = 00006 - 345675' ' 8 - 12 WEEKS = 03113 - 352571'Performed By: #### [id number] #### [facility] [address] [place], [place] [address]Gjgsocfnroegxplcle.beta subunit [Units/volume] in Serum or PlasmaOrdered By: Jurgen Flores on 90-01-4051WYG.beta subunit Ct9495.00 m[IU]/mLBrown Memorial HospitalComment on above:Approximate Approximate hCG Gestational Age Range (mIU/ml) (weeks)0.2-1 5-50 1-2 50-500 2-3 100-5,000 3-4 500-10,000 4-5 1,000-50,000 5-6 10,000-100,000 6-8 15,000-200,000 8-12 10,000-100,000HCG,Quantitativeon 34-14-4864TNT,Stihitklzlcr6773.00 m[iU]/mL NormalThe [facility] Physician GroupComment on above:Result Comment: Approximate Approximate hCG Gestational Age Range (mIU/ml) (weeks) 0.2-1 5-50 1-2 50-500 2-3 100-5,000 3-4 500-10,000 4-5 1,000-50,000 5-6 10,000-100,000 6-8 15,000-200,000 8-12 10,000-100,000 PERFORMED BY: [facility] Angel [place] [address] PATHOLOGIST MANAGER COMMERCIAL SRIRAM LARES M.D.Performed By: #### HCGQNT #### [facility] [address] [place] [address] USAAlanine aminotransferase [Enzymatic activity/volume] in Serum or PlasmaOrdered By: Jurgen Flores on 50-79-2807TAL [Catalytic activity/Vol]11 U/LNormal7-52Brown Memorial HospitalComment on above: Performed By: #### LIPASE, HCGQUAL, CMP, CBC #### [facility] [address] [place] [address] USAAlbumin [Mass/volume] in Serum or Plasma by Bromocresol green (BCG) dye binding methoOrdered By: Jurgen Flores on 23-12-6621Feotdux BCG dye [Mass/Vol]4.5 g/dL3.5-5.7FCleveland ClinicAlkaline phosphatase [Enzymatic activity/volume] in Serum or PlasmaOrdered By: Jurgen Flores on 18-05-5868RZL [Catalytic activity/Vol]79 U/BUjruhk54-864NrlufopteBrown Memorial HospitalComment on above:Performed By: #### LIPASE, HCGQUAL, CMP, CBC #### [facility] [address] [place] [address] USAAppearance of UrineOrdered By: Jurgen Flores on 20-98-8015Paekasrskv (U)CloudyCritically abnormalClePremier Health Miami Valley HospitalComment on above:Order Comment: Name Collection Type:: Clean-Voided MidstreamPerformed By: #### ADDONUAPLUS, CUU #### [facility] [address] [place] [address] USAAspartate aminotransferase [Enzymatic activity/volume] in Serum or PlasmaOrdered By: Jurgen Flores on 21-40-5303DPA [Catalytic activity/Vol]15 U/CGyoifw81-64YqqvdmmcoBrown Memorial HospitalComment on above: Performed By: #### LIPASE, HCGQUAL, CMP, CBC #### [facility] [address] [place] [address] USABacteria [Presence] in Urine by AutomatedOrdered By: Jurgen Flores on 26-70-4349Pxxxppsq Auto Ql (U)4+ [HPF]HighNone SeenFirelands Regional Medical CenterBasophils [#/volume] in Blood by Automated countOrdered By: Jurgen Flores on 54-41-8142Ytzlfzeas (Bld) [#/Vol]0.0 10*3/uLNormal0.0-0.2 Brown Memorial HospitalComment on above:Result Comment: PERFORMED BY: [place] [address] PATHOLOGIST MANAGER COMMERCIAL SRIRAM LARES M.D.Performed By: #### LIPASE, HCGQUAL, CMP, CBC #### [facility] [address] [place] [address] USABasophils/100 leukocytes in Blood by Automated count Ordered By: Jurgen Flores on 56-42-9902Tnsrwkbti/100 WBC (Bld)0.3 %Normal. Brown Memorial HospitalComment on above:Performed By: #### LIPASE, HCGQUAL, CMP, CBC #### [place] [address] USABilirubin Test strip Ql (U)Ordered By: Jurgen Flores on 23-44-9448Qpsfgalqn Ql (U)NegativeNegativeBrown Memorial Hospital Bilirubin.total [Mass/volume] in Serum or PlasmaOrdered By: Jurgen Flores on 02-20-5482Eezscsnrk [Mass/Vol]1.7 mg/dLHigh0.3-1.0Brown Memorial HospitalComment on above:Samples from patients who have [...] By: #### LIPASE, HCGQUAL, CMP, CBC #### [place] [id number] USACalcium [Mass/volume] in Serum or PlasmaOrdered By: Jurgen Flores on 00-69-2942Yzboncl [Mass/Vol]9.0 mg/dLNormal8.6-10.3FCleveland ClinicComment on above:Performed By: #### LIPASE, HCGQUAL, CMP, CBC #### [facility] [address] [place] [id number] USACarbon dioxide, total [Moles/volume] in Serum or Plasma Ordered By: Jurgen Flores on 73-76-6521VP7 [Moles/Vol]25.7 mmol/LNormal 21.0-31.0Brown Memorial HospitalComment on above:Performed By: #### LIPASE, HCGQUAL, CMP, CBC #### [facility] [address] [place] [id number] USAChloride [Moles/volume] in Serum or PlasmaOrdered By: Jurgen Flores on 17-45-9270Skfyffhu [Moles/Vol]107 mmol/FQvyrry45-964SgwarckrnBrown Memorial HospitalComment on above:Performed By: #### LIPASE, HCGQUAL, CMP, CBC #### [facility] [address] [place] [id number] USAChoriogonadotropin.beta subunit [Units/volume] in Serum or PlasmaOrdered By: Jurgen Flores on 32-83-7856ZBP.beta subunit Qn804.58 m[IU]/mLBrown Memorial HospitalComment on above:Approximate Approximate hCG Gestational Age Range (mIU/ml) (weeks)0.2-1 5-50 1-2 50-500 2-3 100-5,000 3-4 500-10,000 4-5 1,000-50,000 5-6 10,000-100,000 6-8 15,000-200,000 8-12 10,000-100,000HCG.beta subunit QnPositiveBrown Memorial Hospital Color of Urine by AutoOrdered By: Jurgen Flores on 22-83-7351Flmos (U)Yellow NormalYellowBrown Memorial HospitalComment on above:Order Comment: Name Collection Type:: Clean-Voided MidstreamPerformed By: #### ADDONUAPLUS, CUU #### [place] [address] USAComplete Blood Count Auto Diffon 02-85-6286Elrj Corpuscular HGB Conc34.1 g/cANhrzez96.0-35.0The [facility] Physician GroupComment on above:Performed By: #### LIPASE, HCGQUAL, CMP, CBC #### [place] [address] USAMonocytes/100 WBC (Bld)17.30 %Normal0.00-20.00The [facility] Physician GroupComment on above:Performed By: #### LIPASE, HCGQUAL, CMP, CBC #### [place] [address] USANRBC%0.1 /100{WBC}Normal0-0.5The [facility] Comment on above:Performed By: #### LIPASE, HCGQUAL, CMP, CBC #### [place] [address] USAWhite Blood Count5.2 [CFU]/mLNormal3.8-11.6The [facility] Physician GroupComment on above:Performed By: #### LIPASE, HCGQUAL, CMP, CBC #### [place] [address] USAComprehensive Metabolic Panelon 92-62-0825Mcbaxcn [Mass/Vol]4.5 g/dLNormal3.5-5.7The [facility] Physician GroupComment on above: Performed By: #### LIPASE, HCGQUAL, CMP, CBC #### [place] [address] USACreatinine Clr Calc Fefqxsrc009.44NormalThe [facility] Physician GroupComment on above:Performed By: #### LIPASE, HCGQUAL, CMP, CBC #### [place] [address] USAGFR/1.73 sq M.predicted MDRD (S/P/Bld) [Vol rate/Area] mL/min/{1.73_m2}NormalThe [facility] Physician GroupComment on above:Performed By: #### LIPASE, HCGQUAL, CMP, CBC #### [facility] [address] [place] [address] USACreatinine [Mass/volume] in Serum or PlasmaOrdered By: Jurgen Flores on 26-61-4708Azgvzligzo [Mass/Vol]0.62 mg/dLNormal0.60-1.20 [facility] HospitalComment on above:Performed By: #### LIPASE, HCGQUAL, CMP, CBC #### [place] [address] USADipstick and Microscopicon 57-01-2212Mutzmuxi,Urine4+ [HPF]NormalNone SeenThe [facility] Physician GroupComment on above:Order Comment: Name Collection Type:: Clean-Voided MidstreamPerformed By: #### ADDONUAPLUS, CUU #### [place] [address] USABilirubin,UrineNegativeNormalNegativeThe [facility] Physician GroupComment on above:Order Comment: Name Collection Type:: Clean- Voided MidstreamPerformed By: #### ADDONUAPLUS, CUU #### [place] [address] USAGlucose Ql (U)NormalNormalNormalThe [facility] Physician GroupComment on above:Order Comment: Name Collection Type:: Clean-Voided MidstreamPerformed By: #### ADDONUAPLUS, CUU #### [place] [address] USAHyaline Casts,UrineNoneNormal0-8The [facility] Physician GroupComment on above:Order Comment: Name Collection Type:: Clean-Voided MidstreamPerformed By: #### ADDONUAPLUS, CUU #### [place] [address] USAMucus,Urine2+ [LPF]Critically abnormalThe [facility] Physician GroupComment on above:Order Comment: Name Collection Type:: Clean- Voided MidstreamResult Comment: PERFORMED BY: [place] [address] PATHOLOGIST MANAGER COMMERCIAL SRIRAM LARES M.D.Performed By: #### ADDONUAPLUS, CUU #### [place] [address] USANitrite,UrineNegativeNormalNegativeAdventhealth Timberridge Er Physician GroupComment on above:Order Comment: Name Collection Type:: Clean-Voided MidstreamPerformed By: #### ADDONUAPLUS, CUU #### [place] [address] USAOccult Blood,UrineNegativeNormalNegativeThe [facility] Physician GroupComment on above:Order Comment: Name Collection Type:: Clean- Voided MidstreamResult Comment: PERFORMED BY: [place] [address] PATHOLOGIST MANAGER COMMERCIAL SRIRAM LARES M.D.Performed By: #### ADDONUAPLUS, CUU #### [place] [address] USAProtein,UrineTraceNormalNegativeThe [facility] Physician GroupComment on above:Order Comment: Name Collection Type:: Clean-Voided MidstreamPerformed By: #### ADDONUAPLUS, CUU #### [place] [address] USARBC,Bqlyd6-6Siansf1-5Gjh [facility] Physician GroupComment on above:Order Comment: Name Collection Type:: Clean-Voided MidstreamPerformed By: #### ADDONUAPLUS, CUU #### [place] [address] USASpecificy Edcouch,Urine1.122Coyawq5.001-1.030The [facility] Physician GroupComment on above:Order Comment: Name Collection Type:: Clean- Voided MidstreamPerformed By: #### ADDONUAPLUS, CUU #### [place] [address] USASquamous Epithelial Cell,Tywkn23-38Xfpqrf9-0Ttv [facility] Physician GroupComment on above:Order Comment: Name Collection Type:: Clean- Voided MidstreamPerformed By: #### ADDONUAPLUS, CUU #### [facility] [address] [place] [address] USAUrobilinogen,UrineNormalNormalNormalThe [facility] Physician GroupComment on above:Order Comment: Name Collection Type:: Clean- Voided MidstreamPerformed By: #### ADDONUAPLUS, CUU #### [facility] [address] [place] [address] USAWBC,UrineInnumerableNormal0-4The [facility] Comment on above:Order Comment: Name Collection Type:: Clean-Voided Midstream Performed By: #### ADDONUAPLUS, CUU #### [place] [address] USAEosinophils [#/volume] in Blood by Automated countOrdered By: Jurgen Flores on 05-93-4997Anpcvmcffhg (Bld) [#/Vol]0.0 10*3/uLNormal 0.0-0.45[facility] Memorial HospitalComment on above:Performed By: #### LIPASE, HCGQUAL, CMP, CBC #### [place] [address] USAEosinophils/100 leukocytes in Blood by Automated count Ordered By: Jurgen Flores on 43-30-9094Hnvwdtgscem/100 WBC (Bld)0.7 %Normal. [facility] Memorial HospitalComment on above:Performed By: #### LIPASE, HCGQUAL, CMP, CBC #### [facility] [address] [place] [address] USAEpithelial cells.squamous [#/area] in Urine sediment by Automated countOrdered By: Jurgen Flores on 30-46-3809Jxpafcnrnj cells.squamous Auto (Urine sed) [#/Area]20-49 [HPF]High0-2FCleveland ClinicErythrocyte distribution width [Ratio] by Automated countOrdered By: Jurgen Flores on 29-48-1009Moiivdibgdn distribution width (RBC) [Ratio] 13.0 %Ilebnr11.9-15.3FCleveland ClinicComment on above:Performed By: #### LIPASE, HCGQUAL, CMP, CBC #### [facility] [address] [place] [address] USAErythrocytes [#/area] in Urine sediment by Automated count Ordered By: Jurgen Flores on 95-05-4051JVE Auto (Urine sed) [#/Area]3-4 [HPF] 0-4FCleveland ClinicErythrocytes [#/volume] in Blood by Automated countOrdered By: Jurgen Flores on 18-25-8126VWN (Bld) [#/Vol]4.95 10*6/uLNormal3.60-5.00Brown Memorial HospitalComment on above: Performed By: #### LIPASE, HCGQUAL, CMP, CBC #### [facility] [address] [place] [id number] USAGlomerular filtration rate [Volume Rate/Area] in Serum, Plasma or Blood by CreatinineOrdered By: Jurgen Flores on 14-53-3644Rkcouequue filtration rate [Volume Rate/Area] in Serum, Plasma or Blood by Creatinine> 60.0 mL/MinBrown Memorial HospitalGlucose [Mass/volume] in Serum or Plasma Ordered By: Jurgen Flores on 70-73-6491Zuqazoc [Mass/Vol]96 mg/qPGvkhdh44-938 Brown Memorial HospitalComment on above:ADA recommended reference rangeRandom Glucose [...] By: #### LIPASE, HCGQUAL, CMP, CBC #### [facility] [address] [place] [id number] USAGlucose [Mass/volume] in Urine by Test stripOrdered By: Jurgen Flores on 99-29-0353Rxrhzvi Test strip (U) [Mass/Vol]Normal mg/dLGood Samaritan HospitalHCG,Qualitative Serumon 05-10-2025 HCG,Qualitative SerumPositiveNoFormerly Pardee UNC Health Care Physician GroupComment on above:Result Comment: PERFORMED BY: [place] [address] PATHOLOGIST MANAGER COMMERCIAL SRIRAM LARES M.D.Performed By: #### LIPASE, HCGQUAL, CMP, CBC #### [place] [address] USAHCG,Quantitativeon 75-36-7752KEQ,Apthkuqbufxv705.58 m[iU]/mLNormalThe [facility] Physician GroupComment on above:Result Comment: Approximate Approximate hCG Gestational Age Range (mIU/ml) (weeks) 0.2-1 5-50 1-2 50-500 2-3 100-5,000 3-4 500-10,000 4-5 1,000-50,000 5-6 10,000-100,000 6-8 15,000-200,000 8-12 10,000-100,000 PERFORMED BY: [place] [address] PATHOLOGIST MANAGER COMMERCIAL SRIRAM LARES M.D.Performed By: #### HCGQNT #### [place] [id number] USAHematocrit [Volume Fraction] of Blood by Automated count Ordered By: Jurgen Flores on 04-53-7670Pduzpeofgp (Bld) [Volume fraction]43.0 %Xxnegr46.0-46.4FCleveland ClinicComment on above:Performed By: #### LIPASE, HCGQUAL, CMP, CBC #### [place] [address] USAHemoglobin Test strip Ql (U)Ordered By: Jurgen Flores on 32-70-7236Ginwfhmhls Ql (U)NegativeNegativeBrown Memorial Hospital Hemoglobin [Mass/volume] in BloodOrdered By: Jurgen Flores on 05-10-2025 Hemoglobin (Bld) [Mass/Vol]14.7 g/mUPrkcng63.8-15.4FCleveland ClinicComment on above:Performed By: #### LIPASE, HCGQUAL, CMP, CBC #### [place] [id number] USAHyaline casts [#/area] in Urine sediment by Automated countOrdered By: Jurgen Flores on 89-73-0253Tntyiwq casts Auto (Urine sed) [#/Area]None [LPF]0-8Brown Memorial HospitalKetones [Presence] in Urine by Test stripOrdered By: Jurgen Flores on 03-14-3752Imsiqyd Ql (U) NegativeNormalNegSelect Medical Specialty Hospital - CantonComment on above:Order Comment: Name Collection Type:: Clean-Voided MidstreamPerformed By: #### ADDONUAPLUS, CUU #### [facility] [address] [place] [id number] USALeukocyte esterase [Presence] in Urine by Test strip Ordered By: Jurgen Flores on 23-48-7167Fqoaaabnw esterase Test strip Ql (U)4+ NormalNegSelect Medical Specialty Hospital - CantonComment on above:Order Comment: Name Collection Type:: Clean-Voided MidstreamPerformed By: #### ADDONUAPLUS, CUU #### [facility] [address] [place] [id number] USALeukocytes [#/area] in Urine sediment by Automated count Ordered By: Jurgen Flores on 52-97-5783MWI Auto (Urine sed) [#/Area] Innumerable [HPF]High0-4FCleveland ClinicLeukocytes [#/volume] corrected for nucleated erythrocytes in Blood by Automated counOrdered By: Jurgen Flores on 32-59-1931PZP corrected for nucl RBC Auto (Bld) [#/Vol]5.2 10*3/uL3.8-11.6FCleveland ClinicLeukocytes [#/volume] in Blood by Automated countOrdered By: Jurgen Flores on 18-22-7652RQM (Bld) [#/Vol]5.2 10*3/uLNormal3.8-11.6FCleveland ClinicComment on above:Performed By: #### LIPASE, HCGQUAL, CMP, CBC #### [facility] [address] [place] [id number] USALipase [Enzymatic activity/volume] in Serum or Plasma Ordered By: Jurgen Flores on 81-85-2596Schehu [Catalytic activity/Vol]17.0 U/L Jdzbet65.0-82.0Brown Memorial HospitalComment on above:Performed By: #### LIPASE, HCGQUAL, CMP, CBC #### [facility] [address] [place] [address] USALymphocytes [#/volume] in Blood by Automated countOrdered By: Jurgen Flores on 14-46-2568Jfaguerbmic (Bld) [#/Vol]1.4 10*3/uLNormal 1.00-4.8Brown Memorial HospitalComment on above:Performed By: #### LIPASE, HCGQUAL, CMP, CBC #### [facility] [address] [place] [address] USALymphocytes/100 leukocytes in Blood by Automated count Ordered By: Jurgen Flores on 50-10-6074Lnyzhvfyags/100 WBC (Bld)26.7 %Normal. Brown Memorial HospitalComment on above:Performed By: #### LIPASE, HCGQUAL, CMP, CBC #### [facility] [address] [place] [address] [Entitic mass] by Automated countOrdered By: Jurgen Flores on 68-15-5570JPK (RBC) [Entitic mass]29.6 znBcddgb53.7-34.3FCleveland ClinicComment on above:Performed By: #### LIPASE, HCGQUAL, CMP, CBC #### [facility] [address] Auto (RBC) [Mass/Vol]Ordered By: Jurgen Flores on 23-41-5841DUII (RBC) [Mass/Vol]34.1 g/dL32.0-35.0Brown Memorial HospitalMCV [Entitic volume] by Automated countOrdered By: Jurgen Flores on 93-43-9856ONI (RBC) [Entitic vol]86.9 gQVzlttl59-512KkqmpgcsrBrown Memorial HospitalComment on above:Performed By: #### LIPASE, HCGQUAL, CMP, CBC #### [facility] [address] [place] [id number] USAMonocyte distribution width [Entitic volume] in Blood by AutomatedOrdered By: Jurgen Flores on 94-91-9712Xonhyxxf distribution width Auto (Bld) [Entitic vol]17.30 %0.00-20.00[facility] Monocytes [#/volume] in Blood by Automated countOrdered By: Jurgen Flores on 09-62-2840Uzsfsyutr (Bld) [#/Vol]0.3 10*3/uLNormal0.0-0.8Brown Memorial HospitalComment on above:Performed By: #### LIPASE, HCGQUAL, CMP, CBC #### [facility] [address] [place] [address] USAMonocytes/100 leukocytes in Blood by Automated count Ordered By: Jurgen Flores on 74-29-0392Bwaqxpniw/100 WBC (Bld)5.9 %Normal. Brown Memorial HospitalComment on above:Performed By: #### LIPASE, HCGQUAL, CMP, CBC #### [facility] [address] [place] [address] USAMucus [Presence] in Urine by AutomatedOrdered By: Jurgen Flores on 28-98-8518Lfgga Auto Ql (U)2+ [LPF]AbnormalBrown Memorial HospitalNeutrophils [#/volume] in Blood by Automated countOrdered By: Jurgen Flores on 24-73-8647Lytzpsfqtic (Bld) [#/Vol]3.5 10*3/uLNormal1.8-7.7 Brown Memorial HospitalComment on above:Performed By: #### LIPASE, HCGQUAL, CMP, CBC #### [facility] [address] [place] [id number] USANeutrophils/100 leukocytes in Blood by Automated count Ordered By: Jurgen Flores on 87-75-5569Qxbkpcqxxsu/100 WBC (Bld)66.4 %Normal. Brown Memorial HospitalComment on above:Performed By: #### LIPASE, HCGQUAL, CMP, CBC #### [facility] [address] [place] [address] USANitrite Test strip Ql (U)Ordered By: Jurgen Flores on 61-04-3237Qxlgaux Ql (U)NegativeNegSelect Medical Specialty Hospital - CantonNo Panel InformationOrdered By: Jurgen Flores on 42-94-6005Kyilxyao Creatinine Clearance (Pcbb903.44Brown Memorial HospitalNucleated erythrocytes [Presence] in Blood by Automated countOrdered By: Jurgen Flores on 05-10-2025 Nucleated RBC Auto Ql (Bld)0.1 /100{WBC}0-0.5FCleveland Clinic Platelet mean volume [Entitic volume] in Blood by Automated countOrdered By: Jurgen Flores on 97-50-6682Mcxhvvjd mean volume (Bld) [Entitic vol]8.5 fL Normal6.3-10.7FCleveland ClinicComment on above:Performed By: #### LIPASE, HCGQUAL, CMP, CBC #### [facility] [address] [place] [address] USAPlatelets [#/volume] in Blood by Automated countOrdered By: Jurgen Flores on 19-32-7263Aqbkllido (Bld) [#/Vol]206 10*3/sBUoecek336-882 Brown Memorial HospitalComment on above:Performed By: #### LIPASE, HCGQUAL, CMP, CBC #### [facility] [address] [place] [address] USAPotassium [Moles/volume] in Serum or PlasmaOrdered By: Jurgen Flores on 35-34-0432Luxwgxfcu [Moles/Vol]3.6 mmol/LNormal3.5-5.1 Brown Memorial HospitalComment on above:Performed By: #### LIPASE, HCGQUAL, CMP, CBC #### [facility] [address] [place] [id number] USAProtein Test strip (U) [Mass/Vol]Ordered By: Jurgen Flores on 20-11-2292Ahpnmol (U) [Mass/Vol]Trace mg/dLHighNegativeBrown Memorial HospitalProtein [Mass/volume] in Serum or PlasmaOrdered By: Jurgen Flores on 67-34-7930Jnxzcth [Mass/Vol]7.6 g/dLNormal6.4-8.9Brown Memorial HospitalComment on above:Performed By: #### LIPASE, HCGQUAL, CMP, CBC #### [place] [address] USASerum globulin measurement by calculation (mass/volume) Ordered By: Jurgen Flores on 95-12-9915Fvwkybrm (S) [Mass/Vol]3.1 g/dLNormal Brown Memorial HospitalComment on above:Performed By: #### LIPASE, HCGQUAL, CMP, CBC #### [place] [address] USASerum or plasma albumin/globulin mass ratioOrdered By: Jurgen Flores on 02-29-1775Crcsliq/Globulin [Mass ratio]1.5 {ratio}Normal Brown Memorial HospitalComment on above:Performed By: #### LIPASE, HCGQUAL, CMP, CBC #### [place] [address] USASerum or plasma anion gap determinationOrdered By: Jurgen Flores on 12-71-6641Jhird gap [Moles/Vol]9.9 mmol/LNormal6.0-15.0 Brown Memorial HospitalComment on above:Performed By: #### LIPASE, HCGQUAL, CMP, CBC #### [place] [address] USASodium [Moles/volume] in Serum or PlasmaOrdered By: Jurgen Flores on 61-70-3286Ksdcye [Moles/Vol]139 mmol/VRxwycn837-962GienlpoguBrown Memorial HospitalComment on above:Performed By: #### LIPASE, HCGQUAL, CMP, CBC #### [place] [address] USASpecific gravity Test strip (U) [Rel density]Ordered By: Jugren Flores on 45-48-8802Unszrpud gravity (U) [Rel density]1.0241.001-1.030 [facility] Memorial HospitalUS OB transvaginalon 99-40-8208ZR OB transvaginalOHIOHEALTH BERGER [facility]ITAL Main [place] [address] [place] [address] Ultrasound Report Signed Patient: Miladis Dougherty MR#: [id number] : 1995 Acct:[id number] Age/Sex: 29 / F ADM Date: 05/10/25 Loc: ER Room: Type: [facility] ER Attending Dr: Ordering Provider: Jurgen Flores DO Date of Service: 05/10/25 US/US OB transvaginal: Abdominal Pain ([id number]) US/US OB <= 14 weeks fetus: . [...] [place] M.D. 05/10/2025 12:59 PM Dictation Location: [place] [address] Tech: Julia White Transcribed By: TRICIA 05/10/25 1259 Dictated By: Jose Alejandro [place] II, MD 05/10/25 1251 Signed By: 05/10/25 1259Two Twelve Medical CenterUrea nitrogen [Mass/volume] in Serum or PlasmaOrdered By: Jurgen Flores on 32-36-5509Nqkb nitrogen [Mass/Vol] 6 mg/dLLow02-23Brown Memorial HospitalComment on above:Performed By: #### LIPASE, HCGQUAL, CMP, CBC #### [facility] [address] [place] [address] USAUrine Cultureon 03-86-3738Zlsfzqzx identified Cx Nom (U) 25,000 colonies/ml mixed bacterial skin contaminants 2 Days PERFORMED [place]: [place] [address] PATHOLOGIST MANAGER COMMERCIAL SRIRAM LARES M.D.NormalAdventhealth Timberridge Er Physician [facility] County Medical CenterComment on above: Performed By: #### ADDONUAPLUS, CUU #### [place] [id number] USAUrine cultureOrdered By: Jurgen Flores on 05-10-2025 Bacteria identified Cx Nom (U)2 DaysBrown Memorial Hospital Urobilinogen Test strip (U) [Mass/Vol]Ordered By: Jurgen Flores on 05-10-2025 Urobilinogen (U) [Mass/Vol]Normal mg/dLNoalBrown Memorial HospitalpH of Urine by Test stripOrdered By: Jurgen Flores on 03-25-7494sG (U)7.5 [pH] Normal5.0-9.0Brown Memorial HospitalComment on above:Order Comment: Name Collection Type:: Clean-Voided MidstreamPerformed By: #### ADDONUAPLUS, CUU #### [facility] [address] [place] [address] USAMain OR Intraoperative Recordon 60-62-7095Omho OR Intraoperative RecordMain OR Intraoperative Record IntraOp Document Type FT Summary Primary Physician: Sumaya Park MD Finalized Date/Time: 04/04/25 13:55:19 Pt. Name: MILADIS DOUGHERTY Julio C Fierro/Sex: 1995 Female Med Rec #: [id number] Physician: Sumaya Park MD Financial #: [id number] Pt. Type: A Room/Bed: [place] [address] Admit/Disch: 04/03/25 09:11:53 - 04/03/25 14:40:00 Institution: [...] Casey Role Performed Anesthesiologist Surgeon - Primary Utility Systems Repairer Operator - Primary Project Asst Time In 04/03/25 12:25:00 04/03/25 12:25:00 04/03/25 12:45:00 Time Out 04/03/25 12:53:00 04/03/25 12:48:00 04/03/25 12:53:00 Procedure CYSTOSCOPY(.) CYSTOSCOPY(.) CYSTOSCOPY(.) Comments dr. valladares paralegal supervisor Last Modified By: Ramon Cali Terry T Sweene, Terry T 04/03/25 13:08:26 04/03/25 13:08:26 04/03/25 13:08:26 Entry 4 Entry 5 Case Attendee Demetria Stein Ii, CST, Kimberly A Role Performed Utility Systems Repairer Operator - Relief Scrub - Primary Time In [...] (If Applicable) PreOp Antibiotic Yes Time Out Phoenix Osorio, Xavier Lundberg MD, Sumaya Nguyễn, Demetria Stein Ii, McClain CST, Joseline Bunch Time Out Complete 04/03/25 12:36:00 Outcomes Met? [...] BLADDER COCKTAIL Primary Procedure Yes Primary Surgeon Xavier PAGE, Sumaya Nguyễn Start 04/03/25 12:37:00 Stop 04/03/25 12:48:00 Anesthesia [...] and tissue Entry 1 Skin Integrity Intact, Cat[place], Warm, & Skin Abnormality No Dry Outcomes [...] Leg Position Secured in Stirrup Positioning Device Stirrups Yello (more content not included)...[facility] HospitalDischarge Instructions on 48-19-8717Tybjhfxwq InstructionsDischarge Instructions MILADIS DOUGHERTY :1995 Visit Date:04/03/2025 [...] duct lesion, nipple or areolar lesion (except [address]), open, male or female, 1 or more [...] up in 2-4 weeks Where: [facility]a Mc[place], [facility] [address] [phone] Business (1) Medications What How Much When [...] medicine that helps you relax. ??? Take jkkn-mlc-bowkdhs and prescription medicines only as told by [...] have a fever. G (more content not included)...[facility] Ferry HospitalComment on above:Result Comment: Electronically Signed By: Annalise ALVAREZ, Liliana Morfin\.br\Date and Time Signed: 04/03/25 13:29 EDTInpatient Patient Summaryon 04-03-2025 Inpatient Patient SummaryInpatient Patient Summary [place] [id number] [facility] Clinical Discharge Instructions PERSON INFORMATION Name: MILADIS DOUGHERTY PHYSICIANS Admitting Physician: Sumaya Park MD Attending Physician: Sumaya Park MD PCP: Dia Ware Discharge Diagnosis: Interstitial cystitis Comment: PATIENT EDUCATION INFORMATION Instructions: Hydrodistention of the Bladder, Care After Medication Leaflets: Follow up: With: Address: When: Sumaya Park [place]ue[place]a Mc[place], [place] [address], [address] [phone] [facility] (1) Comments: Office to call to schedule your follow up in 2-4 weeks MEDICATION LIST Comment:[facility] HospitalMain OR PACU I Recordon 83-65-8542Iucf OR PACU I RecordMain OR PACU I Record PACU Phase I Document Type FT Summary Primary Physician: Sumaya Park MD Finalized Date/Time: 04/03/25 13:54:08 Pt. Name: MILADIS DOUGHERTY/Sex: 1995 Female Med Rec #: [id number] Physician: Sumaya Park MD Financial #: [id number] Pt. Type: A Room/Bed: [place] [address] Admit/Disch: 04/03/25 09:11:53 - Institution: Case Times [...] Signatures Signed By: Glo Rojas RN 04/03/25 13:54[facility] HospitalMain OR PACU II Recordon 30-95-9175Swld OR PACU II RecordMain OR PACU II Record PACU Phase II Document Type FT Summary Primary Physician: Sumaya Park MD Finalized Date/Time: 04/03/25 14:54:04 Pt. Name: MILADIS DOUGHERTY Julio C BruceB./Sex: 1995 Female Med Rec #: [id number] Physician: Sumaya Park MD Financial #: [id number] Pt. Type: A Room/Bed: [facility]/ Admit/Disch: 04/03/25 09:11:53 - Institution: Case Times [...] Signatures Signed By: Liliana Woody RN 04/03/25 14:54NoAshtabula County Medical CenterMain OR Preoperative Recordon 04-45-9717Aqbu OR Preoperative RecordMain OR Preoperative Record PreOp Document Type FT Summary Primary Physician: Sumaya Park MD Finalized Date/Time: 04/03/25 12:45:26 Pt. Name: MILADIS DOUGHERTY/Sex: 1995 Female Med Rec #: [id number] Physician: Sumaya Park MD Financial #: [id number] Pt. Type: A Room/Bed: [facility]/ Admit/Disch: 04/03/25 09:11:53 - Institution: Case Times [...] Signatures Signed By: Demetria Stein Ii 04/03/25 12:45[facility] HospitalOperative Reporton [id number] ReportOperative Report Patient: MILADIS DOUGHERTY Age: 29 [...] We began the procedure using a 22.5 Scottish rigid cystoscope, 30 degree lens, and inserted [...] . Impression and Plan Diagnosis Interstitial cystitis (ECH06-ZZ N30.10, Discharge, Medical). Diagnosis Interstitial cystitis (UPT13-RP N30.10, Discharge, Medical).[facility] HospitalComment on above:Result Comment: Electronically Signed By: Sumaya Park MD\.br\Date and Time Signed: 04/03/25 13:03EDTOutpatient Surgery Discharge Instructionon 37-80-0629Psuyqvedto Surgery Discharge InstructionOutpatient Surgery Discharge Instruction [place] [id number] Patient Discharge Instructions PERSON INFORMATION Name: MILADIS [...] THE NEAREST EMERGENCY ROOM OR CALL 911 LADONNA Zelaya LAUREN A, have received the attached patient education materials/instructions and have verbalized understanding: May we do a follow up call? Yes No I was present when discharge instructions were given Patient Signature Date Clinican/Nurse Signature Date Follow up: With: Address: When: Sumaya Park [address] [place] [address] [phone] Business (1) Comments: Office to call to schedule your follow up in 2-4 weeks Pharmacy Information: You may receive a survey from [employer] asking you to rate your care experience. Your feedback is important and will help us understand what we do well and how we can improve the quality of care we provide to you, your loved ones and our community. It???s an honor to serve you. Thank you for choosing [facility] HERE ARE THE MEDICATION CHANGES THAT [...] medicine that helps you relax. ??? Take vqly-hqp-qcyalqz and prescription medicines only as told by [...] your health care prov (more content not included)...NormalKindred Hospital LimaBMPon 44-15-0486Hpuex gap [Moles/Vol]12 mmol/LNormal6-16Kindred Hospital LimaComment on above: Performed By: #### [id number] #### [facility] [address] [place], [place] [address]NJB/Creat Ratio15 No SmrajYlimrm95-19BntxxrKindred Hospital LimaComment on above:Performed By: #### [id number] #### [facility] [address] [place], [place] [address]Jmmxlfu [Mass/Vol]9.4 mg/dLNormal8.9-11.1FMercy Health Fairfield HospitalComment on above:Performed By: #### [id number] #### [facility] [address] [place], [place] [address]Xowczdna [Moles/Vol]105 mmol/VMivrcg891-749UuytgmKindred Hospital LimaComment on above:Performed By: #### [id number] #### [facility] [address] [place], [place] [address]KK9 [Moles/Vol]24 mmol/JTjfutt02-42AlvuexKindred Hospital Lima Comment on above:Performed By: #### [id number] #### [facility] [address] [place], [place] [address]Twxphsbqdj [Mass/Vol]0.6 mg/dLNormal0.5-1.3FMercy Health Fairfield HospitalComment on above:Performed By: #### [id number] #### [facility] [address] [place], [place] [address]Zusbves [Mass/Vol]81 mg/wMCiamdt03-184JnxbhcKindred Hospital LimaComment on above:Performed By: #### [id number] #### [facility] [address] [place] [address]Mcrxjtstb [Moles/Vol]3.4 mmol/LLow3.5-5.3FMercy Health Fairfield HospitalComment on above:Performed By: #### [id number] #### [facility] [address] [place] [address]Wgvxpt [Moles/Vol]138 mmol/FQkceat884-836KvbmjhKindred Hospital LimaComment on above:Performed By: #### [id number] #### [facility] [address] [place] [address]Vzjj nitrogen [Mass/Vol]9 mg/dLNormal5-21Kindred Hospital LimaComment on above:Performed By: #### [id number] #### [facility] [address] [place] [address]TLZ w/ Auto Diffon 30-26-2309Xbegzncx Absolute0.0 E9/LNormal 0.0-0.2FMercy Health Fairfield HospitalComment on above:Performed By: #### [id number] #### [facility] [address] [place] [address]Dhpxiqbmd/100 WBC (Bld)0.2 %Normal0.0-2.0Kindred Hospital LimaComment on above:Performed By: #### [id number] #### [facility] [address] [place] [address]Bns Absolute0.0 E9/LNormal0.0-0.5FMercy Health Fairfield Hospital Comment on above:Performed By: #### [id number] #### [facility] [address] [place] [address]Clshyrnuski/100 WBC (Bld)0.6 %Normal0.0-8.0Kindred Hospital LimaComment on above:Performed By: #### [id number] #### [facility] [address] [place], [place] [address]Reifomxwrbs distribution width (RBC) [Ratio]13.5 %Normal 10.9-14.2FMercy Health Fairfield HospitalComment on above:Performed By: #### [id number] #### [facility] [address] [place], [place] [address]Rabbfdxyxn (Bld) [Volume fraction]42.9 %Cyuswp01.0-46.0Kindred Hospital LimaComment on above:Performed By: #### [id number] #### [facility] [address] [place] [address]Qwmtdiaepd (Bld) [Mass/Vol]14.5 g/gOCiqvxq97.0-16.0Kindred Hospital LimaComment on above:Performed By: #### [id number] #### [facility] [address] [place] [address]Qzkiv Absolute1.6 E9/LNormal1.0-4.0[facility] Comment on above:Performed By: #### [id number] #### [facility] [address] [place] [address]Nafivgsumhm/100 WBC (Bld)19.4 %Bfxsgt47.0-50.0Kindred Hospital LimaComment on above:Performed By: #### [id number] #### [facility] [address] [place], [place] [address]OEW (RBC) [Entitic mass]29.2 tpVghsiy43.0-34.0Kindred Hospital LimaComment on above:Performed By: #### [id number] #### [facility] [address], [place] [address]SQBB (RBC) [Mass/Vol]33.8 g/rAQpbtox00.4-36.0Kindred Hospital LimaComment on above:Performed By: #### [id number] #### [facility] [address], [place] [address]WSB (RBC) [Entitic vol]86.4 yOGenequ93.0-100.0Kindred Hospital LimaComment on above:Performed By: #### [id number] #### [facility] [address], [place] [address]Xwiz Absolute0.4 E9/LNormal0.2-1.0[facility] Comment on above:Performed By: #### [id number] #### [facility] [address], [place] [address]Ueyqgvtzx/100 WBC (Bld)4.4 %Normal4.0-14.0Kindred Hospital LimaComment on above:Performed By: #### [id number] #### [facility] [address] [place], [place] [address]Plnuym Absolute6.2 E9/LNormal2.0-7.5FMercy Health Fairfield Hospital Comment on above:Performed By: #### [id number] #### [facility] [address] [place], [place] [address]Yakdwm Auto75.4 %High36.0-75.0[facility] Comment on above:Performed By: #### [id number] #### [facility] [address] [place], [place] [address]Rdlhslso613.0 E9/SZdlllr833.0-500.0[facility] Comment on above:Performed By: #### [id number] #### [facility] [address] [place], [place] [address]Knophasg mean volume (Bld) [Entitic vol]9.0 fLNormal6.4-10.8 Kindred Hospital LimaComment on above:Performed By: #### [id number] #### [facility] [address] [place], [place] [address]FZV2.0 E12/LNormal4.3-5.9Kindred Hospital LimaComment on above:Performed By: #### [id number] #### [facility] [address] [place], [place] [address]OJJ9.2 E9/LNormal4.0-11.0[facility]red Hospital LimaComment on above:Performed By: #### [id number] #### [facility] [address] [place], [place] [address]Y BetaHcg Qualon 03-26-2025U beta hCG QlNegativeNormalKindred Hospital LimaComment on above:Performed By: #### [id number] #### [facility] [address], [place] [address]VB with Cult Rflxon 37-45-3984Uafgc (U)Light-YellowNormalYellow [facility] Hospital LimaComment on above:Result Comment: Microscopic readings are only performed on those samples that meet specific criteria set forth by [facility].Performed By: #### [id number] ####[address]Glucose (U) [Mass/Vol]NegativeNormalNegativeKindred Hospital LimaComment on above: Performed By: #### [id number] ####[address]Ketones Ql (U)1+ mg/dLAbnormalNegativeKindred Hospital LimaComment on above:Performed By: #### [id number] ####[address]UA BloodTraceAbnormal NegativeKindred Hospital LimaComment on above:Performed By: #### [id number] ####[address] [address]BG ClarityClearNormalClearKindred Hospital LimaComment on above: Performed By: #### [id number] ####[address]UA Leuk EstNegativeNormalNegativeKindred Hospital LimaComment on above:Performed By: #### [id number] ####[facility] Bdwbricgn[address] AveNconne[facility], [id number] NitriteNegative NormalNegativeKindred Hospital LimaComment on above:Performed By: #### [id number] ####[facility] Inenynielx[address] AveNconnecticut children[facility], [place] [address]HU pH5.5Invalid Interpretation Code5.0-9.0[facility] Comment on above:Performed By: #### [id number] ####[place] [address] [facility], [place]VH ProteinNegativeNormalNegativeKindred Hospital LimaComment on above:Performed By: #### [id number] ####[place] [address]N[facility], [id number] Spec Grav1.022 Invalid Interpretation Code1.005-1.030[facility] Hospital LimaComment on above:Performed By: #### [id number] ####[place] [address] [facility], [id number] UrobilinogenNegativeNormalNegative [facility] Hospital LimaComment on above:Performed By: #### [id number] ####[place] [address] [facility], [id number] Urobilinogen (U) [Mass/Vol]NegativeNormalNegCleveland Clinic Lutheran Hospital Comment on above:Performed By: #### [id number] ####[place] [address] [facility], [id number] Spec DescClean CatchNormalKindred Hospital LimaComment on above:Performed By: #### [id number] ####[place] [address] AveNorrock[facility], [id number] 03-26-2025 hMKE189 mL/min/1.73 q9Jdjzyi>=59Kind[facility] Hospital LimaComment on above: Performed By: #### [id number] #### [facility] [address] [place], [place] [address]Ceysevrm Note - PTon 24-32-2768Kbtqjsmx Note - PTNonvisit Note - PT Chart reviewed with eval prepped for scheduled eval. KKNormalFisher Saint Luke InstituteH&P Updateon 02-26-2025H&P UpdateH&P Update Patient: MILADIS DOUGHERTY Age: 29 years Sex: Female : 1995 Associated Diagnoses: None Author: Sumaya Park MD Basic Information I have reviewed prior notes, spoke with patient, no changes to history. Patient elects to proceed with surgery as planned. Health Status Procedure history: Breast duct excision () on 11/01/2020 at 25 Years. Esophagogastroduodenoscopy ([id number]) on 04/14/2019 at 23 Years. Laparoscopy ([id number]) in 2019 at 22 Years. Comments: 03/16/2019 8:09 [facility] Senior Physician/Mexican Food Machine Tender, Zhane Bunch Dx with pelvic congestion syndrome Colonoscopy ([id number]) on 02/25/2015 at 19 Years. wisdom teeth [...] Bedtime, # 30 tab(s), Refills(s) 11, [id number], 162, cm, 02/08/25 11:05:00 EDT, Height/Length Dosing, 71.7, kg, 02/08/25 11:05:00 EDT, Weight Dosing mirabegron 25 mg oral tablet, extended release: 25 mg = 1 tab(s), Oral, Daily, # 30 tab(s), Refills(s) 11, [id number], 162, cm, 02/08/25 11:05:00 EDT, Height/Length Dosing, 71.7, kg, 02/08/25 11:05:00 EDT, Weight Dosing Problem list: All Problems Abnormal mammogram / SNOMED CT 810244576 / Confirmed Allergic rhinitis / SNOMED CT 652413507 / Confirmed Bladder pain / SNOMED CT 8359225298 / Confirmed BMI 28.0-28.9,adult / SNOMED CT 6990837735 / Confirmed Breast discharge / SNOMED CT 352060318 / Confirmed Breast lump or mass / SNOMED CT 686858118 / Confirmed Breast mass / SNOMED CT 490298663 / Confirmed Breast pain, right / SNOMED CT 7349747075 / Confirmed Chest tightness / SNOMED CT 048649500 / Confirmed Chronic female pelvic pain / SNOMED CT 915618408 / Confirmed Diarrhea / SNOMED CT 302153219 / Confirmed Duplicated ureter, right / SNOMED CT 05057361 / Confirmed Dysuria / SNOMED CT 97331222 / Confirmed Fainting episodes / SNOMED CT 818940945 / Confirmed Fatigue / SNOMED CT 655275674 / Confirmed Febrile seizures / SNOMED CT 95171494 / Confirmed Frequent urination / SNOMED CT 750115961 / Confirmed Frequent UTI / SNOMED CT 541320149 / Confirmed Gross hematuria / SNOMED CT 922725875 / Confirmed History of kidney stones / SNOMED CT 9045119964 / Confirmed IBS (irritable bowel syndrome) / SNOMED CT 72656905 / Confirmed Interstitial cystitis / SNOMED CT 7519181565 / Confirmed Irregular menses / SNOMED CT 665E26FI-E689-4C0P-74PW-725I1811EK6E / Confirmed Kidney stone / SNOMED CT 464277572 / Confirmed Left lower quadrant abdominal pain / SNOMED CT 919523288 / Confirmed Lymphadenopathy / SNOMED CT 32457353 / Confirmed Menorrhagia / SNOMED CT 0577296357 / Confirmed Nipple discharge / SNOMED CT 051310314 / Confirmed Other nail disorders / SNOMED CT 9977465015 / Confirmed Over weight / SNOMED CT 781208827 / Confirmed Pelvic congestion syndrome / SNOMED CT 03991864 / Confirmed Serous otitis media / SNOMED CT 070871525 / Confirmed Shortness of breath / SNOMED CT 756391241 / Confirmed SHAE (stress urinary incontinence, female) / SNOMED CT 764624852 / Confirmed Thyromegaly / SNOMED CT 1695553 / Confirmed UTI (urinary tract infection) / SNOMED CT 605794342 / Confirmed Vaginal discharge / SNOMED CT 469283190 / Confirmed Viral syndrome / SNOMED CT 28342717 / Confirmed Vitamin D deficiency / SNOMED CT 12794990 / Confirmed Resolved: Adult BMI 27.0-27.9 kg/sq m / SNOMED CT 7970233203 Resolved: Adult body mass index 28.0-28.9 / SNOMED CT 2677494216 Resolved: Gilbert syndrome / SNOMED CT 66303743 Resolved: / SNOMED CT 377172267 Canceled: Adult BMI 26.0-26.9 kg/sq m / SNOMED CT 3125792912 Canceled: BMI 25.0-25.9,adult / SNOMED CT 3307658519 Canceled: Fullness of breast / SNOMED CT 347415016 Canceled: Infection following a procedure, superficial incisional surgical site, sequela / SNOMED CT 195704329 Canceled: Mammogram abnormal / SNOMED CT 118389463 Canceled: Overweight (BMI 25.0-29.9) / SNOMED CT 7534059335 Canceled: UTI symptoms / SNOMED CT 702429950VgimwtKjwcslMartins Ferry Hospital Comment on above:Result Comment: Electronically Signed By: Xavier PAGE, Sumaya Eng\Date and Time Signed: 02/26/25 08:13EDTInpatient Patient Summaryon 47-65-9488Iuzbqvapo Patient SummaryInpatient Patient Summary [address] [address] Clinical Summary Person Information Name: MILADIS DOUGHERTY Age: 29 Years : 1995 Sex: Female PCP: Dia Ware Marital Status: Race: White Ethnicity: Non- or Language: Gabonese Visit Id: Visit Reason: GROSS HEMATURIA, INTERSTITIAL CYSTITIS Speciality: Acuity: Enc Type: Outpatient Med Service: Surgery Arrival: 02/26/2025 07:21:19 Discharge: Dispo Type: Address: [address] [facility] [id number] Provider Notes: Diagnosis: High-tone pelvic floor dysfunction [...] Follow up: With: Address: When: Sumaya Park Guevara Mcintyre, [address], [facility] [address] [place] [phone] Business (1) Comments: Office will schedule hydrodistention with instillation of bladder cocktail Patient Education Information: EU - Cystoscopy Discharge Instructions (CUSTOM)[facility] Main OR Intraoperative Recordon 86-36-1759Qscj OR Intraoperative RecordMain OR Intraoperative Record IntraOp Document Type FTURO Summary Primary Physician: Sumaya Park MD Finalized Date/Time: 02/26/25 08:24:04 Pt. Name: MILADIS DOUGHERTY Julio C Garcia/Sex: 1995 Female Med Rec #: [id number] Physician: Sumaya Park MD Financial #: [id number] Pt. Type: O Room/Bed: / Admit/Disch: 02/26/25 07:21:19 - Institution: Case Times FTURO Entry 1 Patient Times In Room 02/26/25 08:13:00 Out Room 02/26/25 08:23:00 Procedure Times Start 02/26/25 08:15:00 Stop 02/26/25 08:19:00 Anesthesia Times Last Modified By: Iwona Soler 02/26/25 08:23:53 Case Attendance FTURO Entry 1 Entry 2 Entry 3 Case Attendee Sumaya Park MD, Kelsie E McClain KNIT GOODS CUTTER HANDJoseline Role Performed Surgeon - Primary Utility Systems Repairer Operator - Primary Scrub - Primary Time In [...] Document Signatures Signed By: Iwona Soler 02/26/25 08:24NoAshtabula County Medical CenterMain OR Preoperative Recordon 23-93-6671Wfyh OR Preoperative RecordMain OR Preoperative Record Holding Area Document Type FTURO Summary Primary Physician: Sumaya Park MD Finalized Date/Time: 02/26/25 08:13:00 Pt. Name: MILADIS DOUGHERTY/Sex: 1995 Female Med Rec #: [id number] Physician: Sumaya Park MD Financial #: [id number] Pt. Type: O Room/Bed: / Admit/Disch: 02/26/25 [...] Complaints of Pain: No Skin Integrity Intact, Catano, Warm, & Dry Vitals - EU Blood Pressure 107/73 Pulse 100 bpm Respirations 18 br/min SPO2 98 % Additional None RN Reviewed Yes Specimens Collected Last Modified By: Iwona Soler 02/26/25 08:12:59 Finalized By: Iwona Soler Document Signatures Signed By: Jason DIEGO Julia Preston 02/26/25 07:57 Iwona Soler 02/26/25 08:13 Unfinalized History Date/Time Username Reason for Unfinalizing Freetext Reason for Unfinalizing 02/26/25 08:12 CDB256 Modifying Existing DataNormProvidence Hospital Operative Reporton [id number] ReportOperative Report Patient: MILADIS DOUGHERTY Age: 29 years Sex: Female : 1995 Associated Diagnoses: None Author: Sumaya Park MD Procedure Operative Information Details: Date/ Time: 02/26/2025 08:29:00. Pre-Op Dx: Interstitial cystitis ([id number]-WU N30.10, Discharge, Medical), OAB (overactive bladder) ([id number]-NG N32.81, Discharge, Medical). Post-Op Dx: Same. Anesthesia [...] assist with pelvic pain, [facility]Comment on above: Result Comment: Electronically Signed By: Sumaya Park MD\.br\Date and Time Signed: 02/26/25 08:31EDTOutpatient Surgery Discharge Instructionon 02-26-2025 Outpatient Surgery Discharge InstructionOutpatient Surgery Discharge Instruction [place] [id number] Patient Discharge Instructions PERSON INFORMATION Name: MILADIS [...] Follow up: With: Address: When: Sumaya Park [address] [place], [place] [phone] [facility] (1) Comments: Office will schedule hydrodistention with [...] you have a fever over 100 degrees. LADONNA Zelaya LAUREN A, have received the attached patient education materials/instructions and have verbalized understanding: May we do a follow up call? Yes No I was present when discharge instructions were given Patient Signature Date Clinican/Nurse Signature Date You may receive a survey from Facebook asking you to rate your care experience. Your feedback is important and will help us understand what we do well and how we can improve the quality of care we provide to you, your loved ones and our community. It???s an honor to serve you. Thank you for choosing [facility] HospitalAmbulatory Visit Summaryon 53-66-1875Jklwhigllc Visit Summary Ambulatory Visit Summary MILADIS DOUGHERTY [...] duct lesion, nipple or areolar lesion (except 50647), open, male or female, 1 or more [...] Follow Up with Xavier PAGE, Sumaya Nguyễn, URL, URO When: Where: Medications What How Much When Why Instructions New hydrOXYzine (hydrOXYzine hydrochloride 25 mg Tab) 1 Tablets By Mouth At bedtime Interstitial cystitis Refills: 11 [facility] at [facility] New mirabegron (mirabegron 25 mg oral tablet, extended release) 1 Tablets By Mouth Every day Refills: 11 Pickup at [facility] Pharmacy Information [id number]: [address] [place], [place] [id number] [phone] Allergies Bactrim (hives) Problems Ongoing - Any [...] including vitamins, herbs, eye drops, creams, and jzyv-sug-tggkoyf medicines. ??? Any problems you or family [...] Damage to other struct (more content not included)...DavidKindred Hospital LimaUrology Office/Clinic Noteon 14-03-9639Gdvmpxt Office/Clinic NoteUrology Office/Clinic Note Chief Complaint 2 [...] diagnosed years ago by Dr. Gandara at [facility] in [place]. S/p robotic assisted laparoscopic excision of endometriosis, [...] (N39.0: Urinary tract infection, site not specified) [facility] [place] w/ c/o LLQ abd pain, pelvic pain, dysuria, vaginal bleeding. Diagnosed w/ UTI. Tx w/ keflex BID x 5 days. UCX >100k E. Coli. 12/13/24 pelvis US - [place] [facility] [place]20/24 - continued UTI sxs. Prescribed an additional course of Keflex x 5 days. UCX 25k E. Coli [facility] [place] 01/03/25 - c/o suprapubic pain, UTI [...] 12/29/24 - 50k E. (more content not included)...[facility] Comment on above:Result Comment: Electronically Signed By: Sumaya Park MD\.br\Date and Time Signed: 02/08/25 16:41EDT\.br\Electronically Co-Signed By: Dhara Alford\.br\Date and Time Co-Signed: 02/08/25 11:40 EDT\.br\Electronically Co-Signed By: Dhara Alford\.br\Date and Time Co- Signed: 02/08/25 11:44 EDTUrology Office/Clinic Noteon 24-28-8918Evkmwkb Office/Clinic NoteUrology Office/Clinic Note Chief Complaint hospital f/u HPI Staff PT is [place] [facility] [place] and was told [...] (N39.0: Urinary tract infection, site not specified) [facility] [place]13[place] w/ c/o LLQ abd pain, pelvic pain, dysuria, vaginal bleeding. Diagnosed w/ UTI. Tx w/ keflex BID x 5 days. UCX >100k E. Coli. 12/13/24 pelvis US - negative [facility] [place] 12/20/24 - continued UTI sxs. Prescribed an additional course of Keflex x 5 days. UCX 25k E. Coli [facility] [place] 01/03/25 - c/o suprapubic pain, UTI [...] September after having surgery for endometriosis by rate inserter Dr. Gandara at [facility] in [place]. She has been on multiple antibiotics w/o [...] completed in September by Dr. Gandara in [place]) if her pain does not improve after [...] UTI prevention (cranberry, d-alena (more content not included)...[facility] HospitalComment on above:Result Comment: Electronically Signed By: Miladis Mayberry PA-C\.br\Date and Time Signed: 01/06/25 10:06 EDTAmbulatory Visit Summaryon 98-49-8174Lexwgotvyy Visit SummaryAmbulatory Visit Summary MILADIS DOUGHERTY :1995 Visit Date:01/05/2025 Ambulatory Visit Instructions Your Diagnosis Dysuria Your Care Team Attending Physician - Miladis Mayberry PA-C Primary Care Physician - Dia Ware. This Is Your Medications List albendazole (albendazole 200 mg oral tablet) polyethylene glycol 3350 (polyethylene glycol 3350 Oral Pwdr for Recon) Procedures Performed Excision of cyst, fibroadenoma, or other benign or malignant tumor, aberrant breast tissue, duct lesion, nipple or areolar lesion (except 26456), open, male or female, 1 or more [...] 5:40 PM EDT With: Dia Ware Where: [facility] [address], [place] [address] 11:00 AM EDT With: Xavier PAGE, Sumaya Nguyễn Where: [facility] [address], [address] [place] [address]- Medications What How Much When Why Instructions [...] you for choosing us for your care. [facility] HospitalC Urineon 34-17-7383Juppfnyi identified Cx Nom (U)Microbiology PROCEDURE: Urine Culture [...] Locations R1: This test was performed at: [facility], [address] [place] [address], [address] , [place], VgbdmuQcliisMartins Ferry HospitalComment on above:Performed By: #### [id number] #### [facility] [address] [place] [address]GU Abdomen/Pelvis w/ Contraston 42-70-2960HP Abdomen/Pelvis w/ ContrastExam Date/Time: 01/03/2025 20:46 EDT [...] Nathan Marrero MD Transcribed by: SEBASTIAN Technologist: [facility] Medical CenterBMPon 57-40-3794Thvdi gap [Moles/Vol]9 mmol/LNormal6-16[facility] Comment on above:Performed By: #### [id number] #### [facility] [address], [place] [address]UXE/Creat Ratio27 No WwsspUeqo10-63LnvoplKindred Hospital [facility]ima Comment on above:Performed By: #### [id number] #### [facility] [address], [place] [address]Dsunzcw [Mass/Vol]9.3 mg/dLNormal8.9-11.1Fisher Saint Luke InstituteComment on above:Performed By: #### [id number] #### [facility] [address], [place] [address]Cuwrwnhe [Moles/Vol]105 mmol/GQoeoqc920-290GjrrduKindred Hospital LimaComment on above:Performed By: #### [id number] #### [facility] [address], [place] [address]GJ8 [Moles/Vol]28 mmol/BQhatsv02-83SoojzwKindred Hospital Lima Comment on above:Performed By: #### [id number] #### [facility] [address], [place] [address]Wvazkxymxb [Mass/Vol]0.6 mg/dLNormal0.5-1.3FMercy Health Fairfield HospitalComment on above:Performed By: #### [id number] #### [facility] [address], [place] [address]Nsexwxq [Mass/Vol]103 mg/kXRqehjg01-459RozjvoKindred Hospital LimaComment on above:Performed By: #### [id number] #### [facility] [address], [place] [address]Rswmofntm [Moles/Vol]4.3 mmol/LNormal3.5-5.3FMercy Health Fairfield HospitalComment on above:Performed By: #### [id number] #### [facility] [address] [place] [address]Wyfsrh [Moles/Vol]138 mmol/NHhzeqy484-417DuygzgKindred Hospital LimaComment on above:Performed By: #### [id number] #### [facility] [address] [place] [address]Prej nitrogen [Mass/Vol]16 mg/dLNormal5-21[facility] Hospital LimaComment on above:Performed By: #### [id number] #### [facility] [address] [place] [address]FQG w/ Auto Diffon 96-79-2720Trodfhcs Absolute0.0 E9/LNormal 0.0-0.2FMercy Health Fairfield HospitalComment on above:Performed By: #### [id number] #### [facility] [address], [place] [address]Kzudqjhld/100 WBC (Bld)0.4 %Normal0.0-2.0[facility] Hospital LimaComment on above:Performed By: #### [id number] #### [facility] [address] [place] [address]Iex Absolute0.1 E9/LNormal0.0-0.5FMercy Health Fairfield Hospital Comment on above:Performed By: #### [id number] #### [facility] [address], [place] [address]Jiobfqvalll/100 WBC (Bld)1.2 %Normal0.0-8.0[facility] Hospital LimaComment on above:Performed By: #### [id number] #### [facility] [address], [place] [address]Qzlcevxcjrc distribution width (RBC) [Ratio]13.1 %Normal 10.9-14.2FMercy Health Fairfield HospitalComment on above:Performed By: #### 1305862 #### [facility] [address], [place] [address]Lymitatnzn (Bld) [Volume fraction]40.6 %Yimpwy97.0-46.0[facility] LimaComment on above:Performed By: #### [id number] #### [facility] [address], [place] [address]Cebqekrqbu (Bld) [Mass/Vol]13.8 g/aXJvefdr54.0-16.0[facility] Hospital LimaComment on above:Performed By: #### [id number] #### [facility] [address], [place] [address]Skqbj Absolute1.5 E9/LNormal1.0-4.0[facility] Comment on above:Performed By: #### [id number] #### [facility] [address], [place] [address]Oudekmssihv/100 WBC (Bld)25.3 %Cjrlyh66.0-50.0[facility] Hospital LimaComment on above:Performed By: #### [id number] #### [facility] [address], [place] [address]YZP (RBC) [Entitic mass]29.4 luPuukmy28.0-34.0[facility] Hospital LimaComment on above:Performed By: #### [id number] #### [facility] [address], [place] [address]YACR (RBC) [Mass/Vol]33.9 g/bXIiwyaf59.4-36.0[facility] Hospital LimaComment on above:Performed By: #### [id number] #### [facility] [address], [place] [address]WKL (RBC) [Entitic vol]86.6 tKBqtmey48.0-100.0[facility] Hospital LimaComment on above:Performed By: #### [id number] #### [facility] [address], [place] [address]Qysp Absolute0.4 E9/LNormal0.2-1.0[facility] Comment on above:Performed By: #### [id number] #### [facility] [address] [place] [address]Jrzpceuxz/100 WBC (Bld)6.3 %Normal4.0-14.0[facility] Hospital LimaComment on above:Performed By: #### [id number] #### [facility] [address], [place] [address]Rvfbgy Absolute4.0 E9/LNormal2.0-7.5FMercy Health Fairfield Hospital Comment on above:Performed By: #### [id number] #### [facility] [address], [place] [address]Bnhrwq Auto66.8 %Geqcnu10.0-75.0[facility] Comment on above:Performed By: #### [id number] #### [facility] [address], [place] [address]Sbiyggfl336.0 E9/MFaynrd344.0-500.0[facility] Comment on above:Performed By: #### 2373924 #### [facility] [address], [place] [address]Otqbcuyi mean volume (Bld) [Entitic vol]7.8 fLNormal6.4-10.8 [facility] Hospital LimaComment on above:Performed By: #### [id number] #### [facility] [address], [place] [address]MQF0.7 E12/LNormal4.3-5.9[facility] Hospital LimaComment on above:Performed By: #### [id number] #### [facility] [address], [place] [address]IYG8.0 E9/LNormal4.0-11.0[facility] Hospital LimaComment on above:Performed By: #### [id number] #### [facility] [address] [place] [address]MENIWBTPEBvrpbee By: SYSTEM SYSTEM on 69-81-9348Dbksj gap [Moles/Vol]9 mmol/LNormal6 - 16 mEq/LRemisol ChemCalcium [Mass/Vol]9.3 mg/dL Normal8.9 - 11.1 mg/dLRemisol ChemChloride [Moles/Vol]105 mmol/KIrlzjf975 - 111 mmol/LRemisol ChemCO2 [Moles/Vol]28 mmol/WLgcesc51 - 31 mmol/LRemisol Chem Creatinine [Mass/Vol]0.6 mg/dLNormal0.5 - 1.3 mg/dLRemisol ChemGFR/1.73 sq M.predicted MDRD (S/P/Bld) [Vol rate/Area]123 mL/min/1.73 y7Qgaljy >=59mL/min/1.73 h6Ixtfbra ChemGlucose [Mass/Vol]103 mg/xZJsigax74 - 199 mg/dL Remisol ChemPotassium [Moles/Vol]4.3 mmol/LNormal3.5 - 5.3 mmol/LRemisol Chem Sodium [Moles/Vol]138 mmol/QBhvida324 - 145 mmol/LRemisol ChemUrea nitrogen [Mass/Vol]16 mg/dLNormal5 - 21 mg/dLRemisol ChemUrea nitrogen/Creatinine [Mass ratio]27 mg/ctDqjg71 - 20Remisol ChemED Clinical Summaryon [id number] Clinical SummaryED Clinical Summary [address] [address] ED Clinical Summary Person Information Name: MILADIS DOUGHERTY/[place] Age: 29 Years : 1995 Sex: Female Language: Gabonese PCP: Dia Ware Marital Status: Visit Id: [...] 01/03/2025 22:18:38 01/03/2025 22:18:38 01/03/2025 22:18:38 AD[address]ESS: [address] [facility] [id number] PHYS DOC NOTES: Addendum by Libby Ham DO on January 03, 2025 21:56:49 EDT MEDICAL INFORMATION: Prescriptions Given: New Medications [id number], [address] [place], [place] [id number], [phone] ciprofloxacin (Cipro 500 mg Tab) 1 Tablets [...] EDUCATION INFORMATION: Instructions: Urinary Tract Infection, Adult, Xawb-jm-Rjxp Follow up: With: Address: When: Dia Madsen In 3 days 01/06/2025 Comments: Stop the Keflex and start the Cipro until you complete the course. 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 Please return to the ED for any new or worsening symptoms. DIAGNOSIS: Acute pelvic pain; Duplicated ureter, right; HematuriaNormalFisher Fort Bend Medical CenterED Note-Physicianon 05-42-2097XC Note-PhysicianED Note-Physician Basic Information Time Seen: Louis [...] duct lesion, nipple or areolar lesion (except [address]), open, male or female, 1 or more [...] imaging shows no ev (more content not included)...[facility] HospitalComment on above:Result Comment: Electronically Signed By: Libby [...] data available. Diagnostic Results No qualifying data available.[facility] HospitalComment on above: Result Comment: Electronically Signed By: Louis Santa DO\.br\Date and Time Signed: 01/03/25 18:59 EDTED Patient Summaryon [id number] Patient SummaryED Patient Summary [place] [id number] Patient Discharge Instructions Person Information Name: MILADIS DOUGHERTY Age: 29 Years Arrival Date: 01/03/2025 17:30:48 Discharge Diagnosis: Acute pelvic pain; Duplicated ureter, right; Hematuria Primary Care Physician: Dia Ware Provider Information Primary Provider: Louis Santa DO Advanced Adult Literacy Teacher:None The exam and treatment you received in the Emergency Department were for an urgent problem and are not intended as complete care. It is important that you follow up with a doctor, nurse practitioner,or physician???s food and beverage assistant for ongoing care. If your symptoms become worse or you do not improve asexpected and you are unable to reach your usual health care provider, you should return to the Emergency Department. We are available 24 hours a day. ANANDBROOKEMILADIS Ashford has been given the following list of [...] Patient Education Materials: Urinary Tract Infection, Adult, Kmcx-ly-Ywcb A MESSAGE TO ALL PATIENTS REGARDING OPIOIDS PRESCRIPTION OPIOIDS: WHAT YOU NEED TO KNOW Prescription opioids can be used to help relieve knvbeyfm-lc-asxrra pain and are often prescribed following a [...] and Drug Administration (www.fda.gov/D (more content not included)...[facility] HospitalExtra Blueon 51-28-7666Hdbp Collected PlasmaYesInvalid Interpretation [facility] CenterComment on above:Performed By: #### [id number] #### [facility] [address] [place] [id number] By: SYSTEM SYSTEM on 78-09-7865Rckmwtboc/100 WBC (Bld)0.4 %Normal0.0 - 2.0 %Remisol HemeBasophils/Leukocytes Auto (Bld) [Pure # fraction]0.0 E9/LNormal0.0 - 0.2 E9/LRemisol HemeEosinophils (Bld) [#/Vol]0.1 E9/LNormal0.0 - 0.5 E9/LRemisol HemeEosinophils/100 WBC (Bld)1.2 %Normal0.0 - 8.0 %Remisol HemeErythrocyte distribution width (RBC) [Ratio]13.1 %Xiyooy17.9 - 14.2 %Remisol HemeHematocrit (Bld) [Volume fraction]40.6 %Dsufna56.0 - 46.0 % Remisol HemeHemoglobin (Bld) [Mass/Vol]13.8 g/wDSgxoof97.0 - 16.0 gm/dLRemisol HemeLymphocytes (Bld) [#/Vol]1.5 E9/LNormal1.0 - 4.0 E9/LRemisol Heme Lymphocytes/100 WBC (Bld)25.3 %Jfbeyg02.0 - 50.0 %Remisol HemeMCH (RBC) [Entitic mass]29.4 hvMrodst94.0 - 34.0 pgRemisol HemeMCHC (RBC) [Mass/Vol]33.9 g/dL Dbokzl43.4 - 36.0 gm/dLRemisol HemeMCV (RBC) [Entitic vol]86.6 wULfirhc02.0 - 100.0 fLRemisol HemeMonocytes (Bld) [#/Vol]0.4 E9/LNormal0.2 - 1.0 E9/LRemisol HemeMonocytes/100 WBC (Bld)6.3 %Normal4.0 - 14.0 %Remisol HemeNeutrophils (Bld) [#/Vol]4.0 E9/LNormal2.0 - 7.5 E9/LRemisol HemeNeutrophils/100 WBC (Bld)66.8 % Dapuof46.0 - 75.0 %Remisol HemePlatelet mean volume (Bld) [Entitic vol]7.8 fL Normal6.4 - 10.8 fLRemisol HemePlatelets (Bld) [#/Vol]216.0 E9/BHivtbn289.0 - 500.0 E9/LRemisol HemeRBC (Bld) [#/Vol]4.7 E12/LNormal4.3 - 5.9 E12/LRemisol HemeWBC corrected for nucl RBC Auto (Bld) [#/Vol]6.0 E9/LNormal4.0 - 11.0 E9/L Remisol HemeSEROLOGYOrdered By: Tiffany Levi on 49-58-7958WMM.beta subunit (U) [Moles/Vol]NegativeNormalFTMC Man SeroU BetaHcg Qualon 01-03-2025U beta hCG Ql NegativeNormalKindred Hospital LimaComment on above:Performed By: #### [id number] #### [facility] [address], [place] [address]GL with Cult Rflxon 28-78-6203Yykjv (U)Light-YellowNormalYellow [facility]red Hospital LimaComment on above:Result Comment: Microscopic readings are only performed on those samples that meet specific criteria set forth by [facility].Performed By: #### [id number] #### [facility] [address], [place] [address]Gmavgux (U) [Mass/Vol]NegativeNormalNegativeKindred Hospital LimaComment on above:Performed By: #### [id number] #### [facility] [address], [place] [address]Yhmuawu Ql (U)NegativeNormalNegCleveland Clinic Lutheran Hospital Comment on above:Performed By: #### [id number] #### [facility] [address], [place] [address]AB BloodNegativeNormalNegCleveland Clinic Lutheran Hospital Comment on above:Performed By: #### [id number] #### [facility] [address], [place] [address]MH Bacteria1+ /HPFAbnormalTraceKindred Hospital Lima Comment on above:Performed By: #### [id number] #### [facility] [address], [place] [address]CQ ClarityTurbidAbnormalClearFisher Saint Luke InstituteComment on above:Performed By: #### [id number] #### [facility] [address], [place] [address]MW Leuk Dfs583 Familia/uLAbnormalNegativeKindred Hospital LimaComment on above:Performed By: #### [id number] #### [facility] [address], [place] [address]CJ Mucous1+ CD:[id number] Titus Medical CenterComment on above:Performed By: #### [id number] #### [facility] [address], [place] [address]LH NitriteNegativeNormalNegativeKindred Hospital [facility]ima Comment on above:Performed By: #### [id number] #### [facility] [address], [place] [address]UR pH6.0Invalid Interpretation Code5.0-9.0Kindred Hospital LimaComment on above:Performed By: #### [id number] #### [facility] [address] [place] [address]NI ProteinTraceAbnormalNegCleveland Clinic Lutheran Hospital Comment on above:Performed By: #### [id number] #### [facility] [address], [place] [address]SQ GCL2-2Wiimol0-4Lxymew [facility] InstituteComment on above: Performed By: #### [id number] #### [facility] [address], [place] [address]YD Spec Grav1.036Invalid Interpretation Code1.005-1.030Kindred Hospital LimaComment on above:Performed By: #### [id number] #### [facility] [address], [place] [address]IW Squam Epithelial5-8Invalid Interpretation CodeKindred Hospital LimaComment on above:Performed By: #### [id number] #### [facility] [address], [place] [address]RZ UrobilinogenNegativeNormalNegativeKindred Hospital LimaComment on above:Performed By: #### [id number] #### [facility] [address], [place] [address]SM MGD13-07Rpbrehjx5-0Iugcip [facility] InstituteComment on above:Performed By: #### [id number] #### [facility] [address], [place] [address]Fbnpicsuiwtf (U) [Mass/Vol]NegativeNormalNegativeHarris Regional Hospitaler [facility] InstituteComment on above:Performed By: #### [id number] #### [facility] [address], [place] [address]CI Spec DescClean CatchNormalKindred Hospital LimaComment on above:Performed By: #### [id number] #### [facility] [address], [place] [address]WMINUGQWRENbeqjyp By: SYSTEM SYSTEM on 02-18-2179Iiyzxtnf Auto Ql (U)1+ /HPFInvalid Interpretation CodeTrace/HPFALL[facility] [place] Auto SSBilirubin Ql (U) NegativeNormalNegativemg/dLALLIANCEHE[facility] [place] [facility] [place] Auto SSClarity (U)Turbid *ABN* (01/03/25 8:54 PM)Invalid Interpretation CodeClearFALLIANCEHEALTH [facility] [place] [place] UA Auto SSColor (U)Light- Yellow 1 (01/03/25 8:54 PM)NormalYellowALLIANCEHEALTH [place] [place] [facility]A Auto SSComment on above:Interpretive Data: Microscopic readings are only performed on those samples that meet specific criteria set forth by [facility].Epithelial cells.squamous Auto (Urine sed) [#/Area]5-8 graded/HPFInvalid Interpretation CodeFT UA Auto SSGlucose Ql (U)NegativeNormalNegativemg/dLALLIANCEHEALTH [place] [place] Auto SS Hemoglobin Auto test strip (U) [Mass/Vol]NegativeNormalNegativemg/dLFT UA Auto SSKetones Auto test strip Ql (U)NegativeNormalNegativemg/dLFT UA Auto SS Leukocyte esterase Auto test strip Ql (U)250 Familia/uL Familia/uLInvalid Interpretation CodeNegativeLeu/uLFT UA Auto SSMucus Auto Ql (U)1+ graded/LPFInvalid Interpretation CodeNegativegraded/LPFFTMC UA Auto SSNitrite Auto test strip Ql (U)NegativeNormalNegativemg/dLALLIANCEHEALTH [place] [place] Auto SSpH (U)6.0 *NA* (01/03/25 8:54 PM)Invalid Interpretation Code5.0 - 9.0[facility] [place] [place] [facility] Auto SSProtein Ql (U)Trace mg/dLInvalid Interpretation CodeNegativemg/dLALLIANCEHEALTH [place] [facility] [place]A Auto SSRBC Ql (U) 0-3 graded/HPFNormal0-3graded/HPFALLIANCEHEALTH [place] [place] [facility] [place]A Auto SSSpecific gravity (U) [Rel density]1.036 *NA* (01/03/25 8:54 PM)Invalid Interpretation Code1.005 - 1.030[facility] [place] [facility]A Auto SS Urobilinogen (U) [Mass/Vol]NegativeNormalNegativemg/dLALLIANCEHEALTH [place] [place] [facility] [place] Auto SSWBC Auto (Urine sed) [#/Area]16-25 graded/HPFInvalid Interpretation Code0-5graded/HPFALLIANCEHEALTH [facility] [place]A Auto SSURINALYSISOrdered By: Harish Bernstein on 00-51-6269DF Spec DescClean Catch (01/03/25 8:54 PM)NormalALLIANCEHEALTH [facility] [place] UA Auto SS egFRon 53-01-0061rZPN903 mL/min/1.73 c4Njuurd>=59Fisher [facility] InstituteComment on above:Performed By: #### [id number] #### [facility] [address] [place], [place] [address]Ezwrurpwutf 74-13-2004VtyukpcohNnhykbdyl From: Dia Ware To: NPC - Clinical; [...] on treatment of continuing UTI. Thank you [facility] for call back.[facility] Urineon 74-77-6592Sjpdplqa identified Cx Nom (U)Microbiology PROCEDURE: Urine Culture [...] Locations R1: This test was performed at: [facility], [address] [place] [address], [address] , , GguvnbVwaklpMartins Ferry HospitalComment on above:Performed By: #### [id number] #### [facility] [address] [place] [address]JM Abdomen 1 Viewon 85-43-6203GV Abdomen 1 ViewExam Date/Time: 12/29/2024 14:15 EDT Reason for Exam: Abdominal pain Report IMPRESSION: NO SPECIFIC ABDOMEN. CLINICAL HISTORY: Abdominal pain COMPARISON: NONE. FINDINGS: Gas and stool in colon. Gas in small bowel. No focal or diffuse small bowel dilatation. No mass effect. No abnormal calcification. Osseous structures intact. Technical Comments: pj Gonzáles in mGy = n.a DAP = n.a Ordering Provider: Miladis Mayberry FINAL REPORT Dictated: 12/30/2024 8:16 am Nathan Marrero MD Signed (Electronic Signature): 12/30/2024 8:16 am Signed by: Nathan Marrero MD Transcribed by: SEBASTIAN Technologist: Jose AngelHarris Regional Hospitalfernando [facility] Luke InstituteAmbulatory Visit Summaryon 50-17-5733Skmqechmlt Visit SummaryAmbulatory Visit Summary MILADIS DOUGHERTY :1995 Visit Date:12/29/2024 Ambulatory Visit Instructions Your Diagnosis Recurrent UTI Your Care Team Attending Physician - Miladis Mayberry PA-C Primary Care Physician - Dia Ware Referring Physician - Dia Ware This Is Your [...] 5:40 PM EDT With: Dia Ware Where: [facility] [address] [place] [address], [place] [address]- Wednesday 8:00 AM EDT With: Miladis Mayberry PA-C Where: [facility] [address] [place] [address]- Medications What How Much When Why Instructions [...] you for choosing us for your care. [facility]erry HospitalProvider Letteron 12-29-2024 Provider LetterProvider Letter December 29, 2024 MILADIS [place]ONNA [address] [place] [address] : 1995 To Whom It May Concern, Please excuse above patient from work. She was in our office for an appointment. Sincerely, [facility] [address] [place] [address] SchklaAnttsxAshtabula County Medical CenterUrology Office/Clinic Noteon 40-30-1168Rqfttmu Office/Clinic NoteUrology Office/Clinic Note Chief Complaint Referred [...] no acute distress. Assessment/Plan 29 y/o female [employer] referred by Dia Madsen NP for UTI 1. Frequent UTI (N39.0: Urinary tract infection, site not specified) [facility] [place] w/ c/o LLQ abd pain, pelvic pain, dysuria, vaginal bleeding. Diagnosed w/ UTI. Tx w/ keflex BID x 5 days UCX 12/13/24 - >100k E. Coli. 12/13/24 pelvis US - negative [facility] [place] 12/20/24 - she had continued UTI sxs. Prescribed an additional course of Keflex x 5 days. UCX 12/20/24 - 25k E. Coli PVR 0 ml today UA today w/ small blood only Reports she has had a UTI since September after having surgery for endometriosis by rate inserter Dr. Gandara at [facility] in [place]. States she has been on 4 different [...] verbalizes understanding. All questions answered. Recommend starting lapk-hwc-ljuljnp UTI prevention supplements including d- mannose, Cranberry and Probiotics to help decrease the number of urinary tract infections. Handout provided. Will order KUB/SUMMER to r/o kidney stones as contributing factor to UTI/pain. Call pt w/ results. KUBto be obtained IO. SUMMER will be scheduled at [facility]. If shows significant stone burden, pt will need appt to discuss tx options. Pt advised to contact our office w all future UTI sx so we can monitor urine cx results, treat appropriately (may require extended course abx), and monitor frequency of infections. If continues to get breakthrough UTIs, we will consider cystoscopy w possible UD. -Obtain KUB IO. Obtain SUMMER at [facility]. Order placed. Call pt w/ results -Send urine for culture, tx w/ antibiotics if positive -OTC supplements for UTI prevention -Increase water intake, avoid bladder irritants -Timed voids, double voids -F/U in 3 months, or sooner if needed Ordered: [id number] Measure Post Void residual urine and/or bladder capacity by US- non-imaging Urine Culture Urnls Dip Stick Auto w/o Microscopy POC 63857 US Renal XR Abdomen 1 View 2. Bladder pain (R39.89: Other symptoms and signs involving the genitourinary system) Shares hx of interstitial cystitis diagnosed years ago by Dr. Gandara at [facility] in [place]. Shares her last cystoscopy in September 2024 [...] PRN for pain/discomfort -Will try to obtain [facility] records. Release signed IO today. 3. Left lower quadrant abdominal pain (R10.32: Left lower quadrant pain) C/o LLQ bo elizalde (more content not included)...[facility] Comment on above:Result Comment: Electronically Signed By: Shawanda DOHERTY, Eliazar.kashif\Date and Time Signed: 12/29/24 18:53 EDTReminderson 12-27-2024 [...] Ind Result Name 12/20/2024 MBO POS Urine CultureNoParkview Health [facility] Urineon 92-71-0479Nprfayec identified Cx Nom (U)Microbiology PROCEDURE: Urine Culture [...] Locations R1: This test was performed at: [facility], [address] [place] [address], [address]- , , VcaycpMkrxlaMartins Ferry HospitalComment on above:Performed By: #### [id number] #### [facility] [address] [place] [address] Medicine Office/Clinic Noteon 79-88-3639Qfakmc Medicine Office/Clinic NoteFatempleton developmental center Medicine Office/Clinic Note HPI Staff Former Surekha Rashid patient here today for ER follow up. Was seen in ER on 12/13 for LLQ abdominal pain, pelvic pain, vaginal bleeding, pain with urination. Does see a doctor in [place] (Dr. Timmons) specialization is endometriosis. States she [...] ER follow up. She was [place] [facility] [place], see ER note below: Medical [...] days of keflex Sees Dr Gandara in [place] for endometriosis--surgery in September with her. Ever [...] Medical History Ongoing Abnorm (more content not included)...[facility] Ferry HospitalComment on above:Result Comment: Electronically Signed By: Dia Ware\.br\Date and Time Signed: 12/22/24 09:32 EDTAmbulatory Visit Summaryon 30-60-9414Ormbieopmk Visit SummaryAmbulatory Visit Summary MILADIS DOUGHERTY :1995 Visit Date:12/20/2024 Ambulatory Visit Instructions Your [...] 5:40 PM EDT With: Dia Ware Where: [facility] [address] [place] [address] A [place] [id number]- Medications What How Much When Why Instructions [...] you for choosing us for your care. [facility] Urineon 59-70-3161Efzkrlos identified Cx Nom (U)Microbiology PROCEDURE: Urine Culture [...] Locations R1: This test was performed at: [facility], [address] [place] [address], [facility] , , NrmdirZtejakMartins Ferry HospitalComment on above:Performed By: #### [id number] #### [facility] [address] [place] [id number] Note-Physicianon 33-86-4855DZ Note-PhysicianED Note-Physician Basic Information Time Seen: Louis [...] day(s), # 10 cap(s), Refills(s) 0, [facility]: [facility] #[id number], 162, cm, 12/13/24 12:19:00 EDT, Height/Length [...] OWENS In 3 days 12/16/2024 EDT [address] [facility], [address] [place] [id number] [facility] (1) Additional Instructions: Call the office of [...] discharge Other nail disorders (more content not included)...NormalFisher Fort Bend Medical CenterComment on above: Result Comment: Electronically Signed By: Louis Santa DO.br\Date and Time Signed: 12/14/24 07:00 EDTED Clinical Summaryon 03-29-4622OC Clinical SummaryED Clinical Summary [place] [id number] ED Clinical Summary Person Information Name: MILADIS DOUGHERTY [facility] Age: 29 Years : 1995 Sex: Female Language: Gabonese PCP: Thania OWENS DO, FAAFP Marital Status: Phone: [phone] Visit Id: Visit Reason: Nausea; Vaginal bleeding; [...] 12/13/2024 16:38:01 12/13/2024 16:38:01 12/13/2024 16:38:01 ADDRESS: [address] [place] [phone] PHYS DOC NOTES: MEDICAL INFORMATION: Prescriptions Given: New Medications [facility]/pharmacy #[id number], [address], [place] [id number], [phone] cephalexin (Keflex 500 mg Cap) 1 Capsules [...] Adult Follow up: With: Address: When: Thania OWENS [address] [place] [address], [place] [address] Business (1) In 3 days [...] any new or worsening symptoms. DIAGNOSIS: Acute UTINormalTwin City Hospital Patient Summaryon [id number] Patient SummaryED Patient Summary [address] [address] Patient Discharge Instructions Person Information Name: MILADIS DOUGHERTY Age: 29 Years Arrival Date: 12/13/2024 12:10:18 Discharge Diagnosis: Acute UTI Primary Care Physician: Thania OWENS DO, FAAFP Provider Information Primary Provider: Louis Santa DO Advanced Adult Literacy Teacher:None The exam and treatment you received in the Emergency Department were for an urgent problem and are not intended as complete care. It is important that you follow up with a doctor, nurse practitioner,or physician???s food and beverage assistant for ongoing care. If your symptoms become worse or you do not improve asexpected and you are unable to reach your usual health care provider, you should return to the Emergency Department. We are available 24 hours a day. MILADIS DOUGHERTY has been given the following list of patient education materials, prescriptionsand follow-up instructions: Follow-up Instructions: With: Address: When: Thania OWENS [address] [place] [address] [place] [phone] [facility] (1) In 3 days 12/16/2024 Comments: Call [...] opioids can be used to help relieve zvjkthqm-vu-atnwge pain and are often prescribed following a [...] create a plan o (more content not included)...NormalUniversity Hospitals St. John Medical CenterEROLOGYOrdered By: Mareil Stafford on 20-06-6542YSQ.beta subunit (U) [Moles/Vol]NegativeNormalALL[facility]HE[facility] [place] Man SeroU BetaHcg Qualon 12-13-2024 HCG.beta subunit (U) [Moles/Vol]NegativeNormalKindred Hospital LimaComment on above:Performed By: #### [id number] #### [facility] [address], [place] [address]IP with Cult Rflxon 84-39-6580Conzmxgc Auto Ql (U)1+ /HPF AbnormalTraceKindred Hospital LimaComment on above:Performed By: #### [id number] #### [facility] [address], [place] [address]Wgvnojhhi Ql (U)NegativeNormalNegativeKindred Hospital LimaComment on above:Performed By: #### [id number] #### [facility] [address], [place] [address]Gohksoh (U)ClearNormalClearKindred Hospital LimaComment on above:Performed By: #### [id number] #### [facility] [address] [place] [address]Qvzhp (U)Light-YellowNormalYellowKindred Hospital Lima Comment on above:Result Comment: Microscopic readings are only performed on those samples that meet specific criteria set forth by [facility].Performed By: #### [id number] #### [facility] [address], [place] [address]Orsolkxzhh cells.squamous Auto (Urine sed) [#/Area]3-4Invalid Interpretation CodeKindred Hospital LimaComment on above:Performed By: #### [id number] #### [facility] [address], [place] [address]Bgxszgl Ql (U)NegativeNormalNegCleveland Clinic Lutheran Hospital Comment on above:Performed By: #### [id number] #### [facility] [address], [place] [address]Qfxhxxcdtl Auto test strip (U) [Mass/Vol]NegativeNormalNegative [facility] Hospital LimaComment on above:Performed By: #### [id number] #### [facility] [address], [place] [address]Llcyqnm Auto test strip Ql (U)NegativeNormalNegativeKindred Hospital LimaComment on above:Performed By: #### [id number] #### [facility] [address], [place] [address]Tptotrubj esterase Auto test strip Ql (U)75 Familia/uLAbnormal NegativeKindred Hospital LimaComment on above:Performed By: #### [id number] #### [facility] [address] [place] [address]Ovuph Auto Ql (U)TraceNormalNegCleveland Clinic Lutheran Hospital Comment on above:Performed By: #### [id number] #### [facility] [address], [place] [address]Askcace Auto test strip Ql (U)NegativeNormalNegativeKindred Hospital LimaComment on above:Performed By: #### [id number] #### [facility] [address] [place] [address]cL (U)6.0 [pH]Invalid Interpretation Code5.0-9.0Kindred Hospital LimaComment on above:Performed By: #### [id number] #### [facility] [address] [place] [address]Mrqojat Ql (U)NegativeNormalNegCleveland Clinic Lutheran Hospital Comment on above:Performed By: #### [id number] #### [facility] [address] [place] [address]RRS Ql (U)9-0Kcdqgt4-5AnefwgMercy Health Fairfield HospitalComment on above:Performed By: #### [id number] #### [facility] [address] [place] [address]Xhakgzzm gravity (U) [Rel density]1.022Invalid Interpretation Code1.005-1.030[facility] Hospital LimaComment on above:Performed By: #### [id number] #### [facility] [address] [place] [address]Ianiravjkbrs (U) [Mass/Vol]NegativeNormalNegCleveland Clinic Lutheran HospitalComment on above:Performed By: #### [id number] #### [facility] [address] [place] [address]UYV Auto (Urine sed) [#/Area]16-29Kulnykyx6-7QnciryMercy Health Fairfield HospitalComment on above:Performed By: #### [id number] #### [facility] [address] [place] [address]Gifo of Urine collection methodClean CatchNoalKindred Hospital LimaComment on above:Performed By: #### [id number] #### [facility] [address] [place] [address]IFITIRWLPIBzvenvv By: SYSTEM SYSTEM on 38-96-1616Aazvktcn Auto Ql (U)1+ /HPFInvalid Interpretation CodeTrace/HPFFTMC UA Auto SSBilirubin Ql (U) NegativeNormalNegativemg/dLFTMC UA Auto SSClarity (U)Clear (12/13/24 12:24 PM)NormalClearFTMC UA Auto SSColor (U)Light-Yellow 1 (12/13/24 12:24 PM)NormalYellowFT UA Auto SSComment on above:Interpretive Data: Microscopic readings are only performed on those samples that meet specific criteria set forth by [facility].Epithelial cells.squamous Auto (Urine sed) [#/Area]3-4 graded/HPFInvalid Interpretation CodeFT UA Auto SSGlucose Ql (U)NegativeNormalNegativemg/dLFTMC UA Auto SS Hemoglobin Auto test strip (U) [Mass/Vol]NegativeNormalNegativemg/dLFTMC UA Auto SSKetones Auto test strip Ql (U)NegativeNormalNegativemg/dLFTMC UA Auto SS Leukocyte esterase Auto test strip Ql (U)75 Familia/uL Familia/uLInvalid Interpretation CodeNegativeLeu/uLFT UA Auto SSMucus Auto Ql (U)Trace graded/LPFNormal Negativegraded/LPFFTMC UA Auto SSNitrite Auto test strip Ql (U)NegativeNormal Negativemg/dLFTMC UA Auto SSpH (U)6.0 *NA* (12/13/24 12:24 PM)Invalid Interpretation Code5.0 - 9.0FT UA Auto SSProtein Ql (U)NegativeNormalNegativemg/dLFTMC UA Auto SSRBC Ql (U)0-3 graded/HPFNormal 0-3graded/HPFFTMC UA Auto SSSpecific gravity (U) [Rel density]1.022 *NA* (12/13/24 12:24 PM)Invalid Interpretation Code1.005 - 1.030FTMC UA Auto SS Urobilinogen (U) [Mass/Vol]NegativeNormalNegativemg/dLFTMC UA Auto SSWBC Auto (Urine sed) [#/Area]16-25 graded/HPFInvalid Interpretation Code0-5graded/HPFFTMC UA Auto SSURINALYSISOrdered By: Alka Plata on 97-84-2782SK Spec DescClean Catch (12/13/24 12:24 PM)[facility] UA Auto SSUS Pelvis Non-OB Completeon 74-46-2475WC Pelvis Non-OB CompleteExam Date/Time: 12/13/2024 14:22 EDT [...] Chon Mari MD Transcribed by: SEBASTIAN Technologist: [facility] HospitalBacteria identified Aer cx Nom (Unsp spec)on 02-28-2472Fmjellkv identified Cx Nom (U)SEE NOTEAbnormalOhioHealthComment on above: CULTURE, URINE, ROUTINE Micro Number: [id number] Test Status: Final Specimen Source: Urine, clean [...] parenteral cefazolin. Interpretation and review of laboratory resultsAbnormalOhiNHealthNvioHealth CULTURE, URINE, ROUTINEon [id number], URINE, [facility]ENTEREE NOTEAbnormalQuest DiagnosticsComment on above:Result Comment: CULTURE, URINE, ROUTINE Micro Number: [id number] Test Status: Final Specimen Source: Urine, clean [...] cefazolin.Performed By: #### 395 #### [facility] [place] [address] Receiving Team Member: Marcelino Jimenes MDURINALYSIS, [facility] 62-06-9435Rudrmxsrlz (U)CLEARNormalCLEARQuest DiagnosticsComment on above:Performed By: #### 5463 #### [facility] [place] [address] Receiving Team Member: Marcelino Jimenes MDBACTERIANONMina SEENNormalNONE SEENQuest DiagnosticsComment on above:Performed By: #### 5463 #### [facility] [place] [address] Receiving Team Member: Marcelino Jimenes MDBilirubin Ql (U)NegativeNormalNEGATIVEQuest DiagnosticsComment on above:Performed By: #### 5463 #### [facility] [place] [address] Receiving Team Member: Marcelino HODGESolor (U)YELLOWNormalYELLOWQuest [facility] Comment on above:Performed By: #### 5463 #### [facility] [place] [address] Receiving Team Member: Marcelino Jimenes MDGlucose Ql (U)NegativeNormalNEGATIVEQuest DiagnosticsComment on above:Performed By: #### 5463 #### [facility] [place] [address] Receiving Team Member: Marcelino Jimenes MDHYALINE CAST0-5AbnormalNONE SEENQuest DiagnosticsComment on above:Performed By: #### 5463 #### [facility] [address], [address] [place] [address] Receiving Team Member: Marcelino Jimenes MDKetones Ql (U)NegativeNormalNEGATIVEQuest DiagnosticsComment on above:Performed By: #### 5463 #### [facility] [place] [address] Receiving Team Member: Marcelino Jimenes MDLeukocyte esterase Test strip Ql (U)2+Abnormal NEGATIVEQuest DiagnosticsComment on above:Performed By: #### 5463 #### [facility] [place] [address] Receiving Team Member: Marcelino Jimenes MDNitrite Ql (U)NegativeNormalNEGATIVEQuest DiagnosticsComment on above:Performed By: #### 5463 #### [facility] [place] [address] Receiving Team Member: Marcelino Jimenes MDNOTENormalQuest DiagnosticsComment on above: Result Comment: This urine was analyzed for the presence of WBC, RBC, bacteria, casts, and other formed elements. Only those elements seen were reported.Performed By: #### 5463 #### [facility] [place] [address] Receiving Team Member: Marcelino Jimenes MDOCCULT BLOODNegativeNormalNEGATIVEQuest DiagnosticsComment on above:Performed By: #### 5463 #### [facility] [place] [address] Receiving Team Member: Marcelino Jimenes MDpH (U)5.5 [pH]Normal5.0-8.0[facility] Comment on above:Performed By: #### 5463 #### [facility] [place] [address] Receiving Team Member: Marcelino Jimenes MDProtein Ql (U)NegativeNormalNEGATIVEQuest DiagnosticsComment on above:Performed By: #### 5463 #### [facility] [place] [address] Receiving Team Member: Marcelino Jimenes MDRBCNONE SEENNormal< OR = 2[facility] Comment on above:Performed By: #### 5463 #### [facility] [place] [address] Receiving Team Member: Marcelino CONTIpecific gravity (U) [Rel density]1.018Normal 1.001-1.035Quest DiagnosticsComment on above:Performed By: #### 5463 #### [facility] [place] [address] Receiving Team Member: Marcelino CONTIQUAMOUS EPITHELIAL CELLS0-5Normal< OR = 5 [facility] DiagnosticsComment on above:Performed By: #### 5463 #### [facility] [place] [address] Receiving Team Member: Marcelino Jimenes MDVZJHN06-56Ytsqupva< OR = 5[facility] Comment on above:Performed By: #### 5463 #### [facility] [place] [address] Receiving Team Member: Marcelino Jimenes MDUrinalysison 39-27-0250Zudkxgvdwn (U)CLEAR CLEAROhioHealthBacteria LM.HPF (Urine sed) [#/Area]NONE SEENNONE SEEN /HPF OhioHealthBilirubin Ql (U)NegativeNEGATIVEOhioHealthColor (U)YELLOWYELLOW OhioHealthEpithelial cells.squamous LM.HPF (Urine sed) [#/Area]0-5< OR = 5 /HPF OhioHealthGlucose Ql (U)NegativeNEGATIVEOhioHealthHemoglobin Ql (U)Negative NEGATIVEOhioHealthHyaline casts (Urine sed) [#/Area]0-5AbnormalNONE SEEN /LPF IllinoisHealthInterpretation and review of laboratory resultsAbnormalOhioHealth Ketones Ql [...] (Urine sed) [#/Area]20-40Abnormal< OR = 5 /HPFOhioHealthOhioHealthCBCon 71-75-2487MNZW NRBC0.0 %NormalRiversMercy Health St. Charles HospitalComment on above:Performed By: #### 24902 ####[facility] [address] [place] [address] Ottoniel Larson M.D. [id number] NRBC ABS COUNT0.00 K/mcL Normal0.00-0.00RiProvidence HospitalComment on above:Performed By: #### 60130 ####[facility] [address] [place] [address] Ottoniel Larson M.D. [id number] distribution width (RBC) [Ratio]12.2 %Csrfoh85.6-14.8RiProvidence HospitalComment on above: Performed By: #### 00441 ####[facility] [address] [place] [address] Ottoniel Larson M.D. [id number] (Bld) [Volume fraction]40.4 %Nofogk92.0-46.0RiSelect Medical Specialty Hospital - Canton HospitalComment on above:Performed By: #### 96839 ####[facility] [address] [place] [address] Ottoniel Larson M.D. [id number] Hemoglobin (Bld) [Mass/Vol]13.8 g/sRJmwlyn75.0-16.0RiSelect Medical Specialty Hospital - [facility]on Hospital Comment on above:Performed By: #### 35067 ####[facility] [address] [place] [address] Ottoniel Larson M.D. [id number] (RBC) [Entitic mass]29.4 fxInumnu01.0-34.0RiSelect Medical Specialty Hospital - Canton HospitalComment on above:Performed By: #### 28115 ####[facility] [address] [place] [address] Ottoniel Larson M.D. [id number] (RBC) [Entitic vol]86.0 hNDzowju77.0-100.0 [facility] PrebleComment on above:Performed By: #### 64680 ####[facility] [address] [place] [address] Ottoniel Larson M.D. [id number] CORPUSCULAR HEMOGLOBIN CONC34.2 g/mJPtcmpj03.0-37.0RiProvidence HospitalComment on above:Performed By: #### 59971 ####[facility] [address] [place] [address] Ottoniel Larson M.D. [id number] mean volume (Bld) [Entitic vol]10.4 fLNormal9.4-12.4RiversSt. Mary's Medical Center, Ironton Campus HospitalComment on above:Performed By: #### 72840 ####[facility] [address] [place] [address] Ottoniel Larson M.D. [id number] Platelets (Bld) [#/Vol]183 10*3/rRUehnwm902-087OwnaqhlqvProvidence Hospital Comment on above:Performed By: #### 68765 ####[facility] [address] [place] [address] Ottoniel Larson M.D. [id number] (Bld) [#/Vol]4.70 10*6/uLNormal4.00-5.20[facility] PrebleComment on above:Performed By: #### 58293 ####[facility] [address] [place], [place] [address] Ottoniel Larson M.D. [id number] (Bld) [#/Vol]10.87 10*3/uLNormal4.50-11.00 [facility] PrebleComment on above:Performed By: #### 63772 ####[facility] [address] [place] [address] Ottoniel Larson M.D. [id number] NOTEon [id number] NOTEOperative Note DATE: 09/12/2024 TIME: 12:12 PM [...] reflecting interstitial cystitis. SURGEON: Darlin Ortega MD SOLAR ENERGY CONSULTANT AND DESIGNER: Celena Poe CNP No qualified Resident was available to bedside assist in the case therefore due to the complexity, Celena Poe CNP was utilized as my assistant vice president. OR STAFF: Utility Systems Repairer Operator: Christine Dalton RN; Josee Vera RN Scrub Person: Antonieta Diehl ST Residential Field Manager: Dereje Serrato Assist: Celena Poe CNP [...] Tissue Pelvis TISSUE EXAM Darlin Ortega MD 09/12/2024912 E : ENDOMETRIAL CURETTAGE Curettage Endometrium TISSUE EXAM Darlin Ortega MD 09/12/2024929 IMPLANTS: Implant Name Type Inv. Item Serial No. Lawyer Lot No. LRB No. Used Action BARRIER 5 X 6IN ADHESION TC 7 INTERCEED - [id number] BARRIER 5 X 6IN ADHESION TC 7 INTERCEED ETHICON [id number] N/A 1 Implanted CATH 5IN EXPANSION ON-Q SILVERSOAKER - [id number] Catheter - Implant CATH 5IN EXPANSION ON-Q SILVERSOAKER [employer] [id number] N/A 1 Implanted CATH 5IN EXPANSION ON-Q SILVERSOAKER - [id number] Catheter - Implant CATH 5IN EXPANSION ON-Q SILVERSOAKER [employer] [id number] N/A 1 Implanted PUMP 600ML DUAL ON-Q XJCIBT-M-XKNX - [id number] PUMP 600ML DUAL ON-Q CTQDPQ-V-BSBJ [id number] [employer] N/A 1 Implanted ESTIMATED BLOOD LOSS: 25 [...] was secured to the OR table with Catano Pad. She was tested in extreme Trendelenburg [...] the cavity was visualized. (more content not included)...NormalRiWilson Street Hospital GLUCOSE - [facility] HOSPITALSon 09-12-2024 Glucose [Mass/Vol]90 mg/aTIpnrml29-80DcgveznmwProvidence HospitalComment on above:Performed By: #### 84986 #### [facility] [address] [place] [address] [id number] RMHPOCGlucose [Mass/Vol]84 mg/aDIimifq78-41IvrtutjciProvidence HospitalComment on above:Performed By: #### 59292 #### [facility] [address] [place] [address] [id number] HPOCPO , URINE - [facility] 71-24-4216Xupv HCG ( test) Ql (U) NegativeNormalNegativeRiProvidence HospitalComment on above:Order Comment: Negative: Dilute urine specimens, as indicated by a low specific gravity (<1.010)may not contain representitive levels of hCG. If is still suspected, a serum test or repeat urine test using a first morning urine specimen should be considered.Performed By: #### 78278 #### [facility] [address] [place] [address] [id number] RMHPOCTISSUE EXAMon [id number] EXAMSurgical Pathology Report Case: [id number] Authorizing Provider: Darlin Ortega, Collected: 09/12/2024 09:00 AM Ordering Location: [facility] Received: 09/12/2024 10:23 AM Hospital Periop Pathologist: [...] D. Specimen A. Received in formalin labeled [place], Miladis A and designated large bowel mesentery endo are six blue-dyed fragments of peritoneum and adipose tissue, ranging from 0.7 x 0.2 x 0.2 cm to 1 x 0.2 x 0.2 cm. Two of the pieces are sectioned. All . Specimen B. Received in formalin labeled [place], Miladis A and designated left pelvic sidewall is [...] 10/31. Specimen D. Received in formalin labeled [place], Miladis A and designated left ureteral sacral endo is an erythematous portion of peritoneum, 1.5 x 0.2 x 0.1 cm. All 08/02. Specimen E. Received in formalin labeled [place], Miladis A and designated endometrial curettings is a 3.0 x 2.0 x 0.3 cm aggregate of smith tissue and blood. All /. ARJ/MM/gld Gross examination performed at: [facility] - [address] [place] [address] Microscopic examination is performed.NormalRiProvidence HospitalComment on above:Performed By: #### [id number] #### [facility] [address] [place] [address] Ottoniel Larson M.D. [id number] type and Indirect antibody screen panel (Bld)on 61-28-2312PDG and Rh group Nom (Bld)Blood group O Rh(D) positiveOhioHealthBlood group antibody screen QlNegativeOhioHealthSpecimen Yspocbh6309/22/2024 23:59 ESTOhioHealth [facility] Clinic [facility] 06-84-9184FXFL NRBC0.0 %NormalRiSelect Medical Specialty Hospital [facility] Hospital Comment on above:Performed By: #### 89296 #### [facility] [address] [place] [address] Ottoniel Larson M.D. [id number] NRBC ABS COUNT0.00 K/mcLNormal0.00-0.00RiSelect Medical Specialty Hospital - Canton HospitalComment on above:Performed By: #### 59501 #### [facility] [address] [place] [address] Ottoniel Larson M.D. [id number] distribution width (RBC) [Ratio]12.3 %Iegxyj76.6-14.8 [facility] HospitalComment on above:Performed By: #### 94916 #### [facility] [address] [place] [address] Ottoniel Larson M.D. [id number] (Bld) [Volume fraction]45.7 %Vnqpbw69.0-46.0RiSelect Medical Specialty Hospital - Canton HospitalComment on above:Performed By: #### 13405 #### [facility] [address] [place] [address] Ottoniel Larson M.D. [id number] (Bld) [Mass/Vol]15.1 g/iOZdixag18.0-16.0RiSelect Medical Specialty Hospital - [facility]on HospitalComment on above:Performed By: #### 32728 #### [facility] [address] [place] [address] Ottoniel Larson M.D. [id number] (RBC) [Entitic mass]29.0 bqNjdlrx25.0-34.0RiSelect Medical Specialty Hospital - [facility] HospitalComment on above:Performed By: #### 78687 #### [facility] [address] [place] [address] Ottoniel Larson M.D. [id number] (RBC) [Entitic vol]87.7 gNPhysew79.0-100.0RiSelect Medical Specialty Hospital - [facility] HospitalComment on above:Performed By: #### 31244 #### [facility] [address] [place] [address] Ottoniel Larson M.D. [id number] CORPUSCULAR HEMOGLOBIN CONC33.0 g/ySZnnegz19.0-37.0RiSelect Medical Specialty Hospital - [facility] HospitalComment on above:Performed By: #### 12420 #### [facility] [address] [place] [address] Ottoniel Larson M.D. [id number] mean volume (Bld) [Entitic vol]10.2 fLNormal9.4-12.4[facility] Orthodoxy HospitalComment on above:Performed By: #### 46897 #### [facility] [address] [place] [address] Ottoniel Larson M.D. [id number] (Bld) [#/Vol]204 10*3/hVXwssbv915-494Jpciktqsp Methodist HospitalComment on above:Performed By: #### 08024 #### [facility] [address] [place] [address] Ottoniel Larson M.D. [id number] (Bld) [#/Vol]5.21 10*6/uLHigh4.00-5.20RiSelect [facility] Specialty [facility] Comment on above:Performed By: #### 97302 #### [facility] [address] [place], [place] [address] Ottoniel Larson M.D. [id number] (Bld) [#/Vol]6.44 10*3/uLNormal4.50-11.00RiSelect Medical Specialty Hospital - [facility] HospitalComment on above:Performed By: #### 07842 #### [facility] [address] [place], [place] [address] Ottoniel Larson M.D. [id number] panel Auto (Bld)on 08-11-6752Wrnmjczewzt distribution width (RBC) [Entitic vol]12.3 %11.6 - 14.8 %OhioHealthHematocrit (Bld) [Volume fraction]45.7 %36.0 - 46.0 %OhioHealthHemoglobin (Bld) [Mass/Vol]15.1 g/dL12.0 - 16.0 g/dL OhioHealthInterpretation and review of laboratory resultsAbnormalOhioHealthMCH (RBC) [Entitic [...] Risk Stratification History of Present Illness Miladis hCa is a 28 y.o. female who presents at the request of Darlin Ortega MD 09/12/2024 prior to PELVISCOPY ROBOTIC XI - SIMPLE. This is a pleasant 28-year-old female who has a previous diagnosis of endometriosis, pelvic congestion syndrome and several miscarriages. She has been following with MUSIC INDUSTRY INTERN and with the symptoms that have been [...] 07/15/2024), diagnostics (cardiac testing as noted), and mergers and acquisitions consultant/other provider recommendations (MUSIC INDUSTRY INTERN 08/17/2024, Su Gotti, EDUCATION SPECIALIST 07/19/2024 ED visit 07/15/24). The note was dictated using [employer] dictation system. The voice recognition software is [...] disease) with emphysema (HC (more content not included)...NormalRiProvidence HospitalTYPE AND SCREENon 09-01-2024 TYPE AND SCREENABORH: O Positive AB SCREEN: Negative EXPIRATION DATE: 09/22/2024 23:[address] Charles HospitalComment on above:Performed By: #### 73384 #### [facility] [address] [place] [address] Connie Franco MD [id number] HTSCT Abdomen/Pelvis w/ Contraston 45-40-1925IS Abdomen/Pelvis w/ ContrastExam Date/Time: 07/15/2024 20:13 EST [...] Contrast: Isovue 300 Contrast amount in ml's: 95NormalKindred Hospital LimaBMPon 07-15-2024 Anion gap [Moles/Vol]9 mmol/LNormal6-16Kindred Hospital LimaComment on above:Performed By: #### [id number] #### [facility] [address], [place] [address]Wkoulgc [Mass/Vol]9.0 mg/dLNormal8.9-11.1FMercy Health Fairfield HospitalComment on above:Performed By: #### [id number] #### [facility] [address], [place] [address]Tugssnjg [Moles/Vol]108 mmol/FAeowct294-371EykbwzKindred Hospital LimaComment on above:Performed By: #### [id number] #### [facility] [address], [place] [address]PE3 [Moles/Vol]27 mmol/UTnbacl11-93LljwmlKindred Hospital Lima Comment on above:Performed By: #### [id number] #### [facility] [address], [place] [address]Fevypajulf [Mass/Vol]0.6 mg/dLNormal0.5-1.3FMercy Health Fairfield HospitalComment on above:Performed By: #### [id number] #### [facility] [address], [place] [address]Lhwfzou [Mass/Vol]108 mg/rVZfsygx45-546FzdgrqKindred Hospital LimaComment on above:Performed By: #### [id number] #### [facility] [address], [place] [address]Lbzqsizze [Moles/Vol]3.8 mmol/LNormal3.5-5.3FMercy Health Fairfield HospitalComment on above:Performed By: #### [id number] #### [facility] [address], [place] [address]Mradeq [Moles/Vol]140 mmol/HDrqmiq513-398QakypyKindred Hospital LimaComment on above:Performed By: #### [id number] #### [facility] [address] [place] [address] 86[address]Wcus nitrogen [Mass/Vol]15 mg/dLNormal5-21Kindred Hospital LimaComment on above:Performed By: #### [id number] #### [facility] [address] [place] [address]Zzsk nitrogen/Creatinine [Mass ratio]25 No WurejGsch12-38OsbtjuKindred Hospital LimaComment on above:Performed By: #### [id number] #### [facility] [address] [place] [address] 399[address]TAL w/ Auto Diffon 12-76-3461Zvnkorvfr/100 WBC (Bld)0.4 %Normal 0.0-2.0Kindred Hospital LimaComment on above:Performed By: #### [id number] #### [facility] [address] [place] [address]80[address]Gcvamacmd/Leukocytes Auto (Bld) [Pure # fraction]0.0 E9/LNormal 0.0-0.2FMercy Health Fairfield HospitalComment on above:Performed By: #### [id number] #### [facility] [address] [place] [address]Ajfjwifselp (Bld) [#/Vol]0.1 E9/LNormal0.0-0.5FMercy Health Fairfield HospitalComment on above:Performed By: #### [id number] #### [facility] [address] [place] [address] 424[address]Occtvhaineg/100 WBC (Bld)1.4 %Normal0.0-8.0[facility]red Hospital LimaComment on above:Performed By: #### [id number] #### [facility] [address] [place] [address]Fsfwfgvdsel distribution width (RBC) [Ratio]13.5 %Normal 10.9-14.2FMercy Health Fairfield HospitalComment on above:Performed By: #### [id number] #### [facility] [address] [place] [address]Bttkxrdumx (Bld) [Volume fraction]36.2 %Ezvkjy33.0-46.0[facility]red Hospital LimaComment on above:Performed By: #### [id number] #### [facility] [address] [place] [address] 296[address]Sxbhxweurj (Bld) [Mass/Vol]12.5 g/hWPhvjau76.0-16.0[facility] Hospital LimaComment on above:Performed By: #### [id number] #### [facility] [address] [place] [address] 459[address]Yrseuvnugkd (Bld) [#/Vol]1.6 E9/LNormal1.0-4.0[facility] Hospital LimaComment on above:Performed By: #### [id number] #### [facility] [address] [place] [address]99[address]Juqvqgmqlof/100 WBC (Bld)27.9 %Slfzyr25.0-50.0[facility] Hospital LimaComment on above:Performed By: #### [id number] #### [facility] [address] [place] [address] 512[address]DXD (RBC) [Entitic mass]30.3 lnUpmtbg31.0-34.0[facility] Hospital LimaComment on above:Performed By: #### [id number] #### [facility] [address] [place] [address] 555[address]TPEE (RBC) [Mass/Vol]34.6 g/vAUogose54.4-36.0[facility] Hospital LimaComment on above:Performed By: #### [id number] #### [facility] [address] [place] [address] 53[address]UPG (RBC) [Entitic vol]87.5 hVDaentt92.0-100.0[facility] Hospital LimaComment on above:Performed By: #### [id number] #### [facility] [address], [place] [address]Mohliuizs (Bld) [#/Vol]0.4 E9/LNormal0.2-1.0[facility] Hospital LimaComment on above:Performed By: #### [id number] #### [facility] [address] [place] [address] 234[address]Rgnywngcosy (Bld) [#/Vol]3.6 E9/LNormal2.0-7.5FMercy Health Fairfield HospitalComment on above:Performed By: #### [id number] #### [facility] [address], [place] [address]Mbfvkzbkboq/100 WBC (Bld)63.1 %Nghsnw93.0-75.0[facility] Hospital LimaComment on above:Performed By: #### [id number] #### [facility] [address] [place] [address] 68[address]Goijcags650.0 E9/EBqepzp766.0-500.0[facility] Comment on above:Performed By: #### [id number] #### [facility] [address] [place] [address] 223[address]Bufxtwmx mean volume (Bld) [Entitic vol]8.3 fLNormal6.4-10.8 [facility] LimaComment on above:Performed By: #### [id number] #### [facility] [address] [place] [address] 23279LRI (Bld) [#/Vol]4.1 E12/LLow4.3-5.9[facility] Comment on above:Performed By: #### [id number] #### [facility] [address] [place] [address] 989[address]QFS corrected for nucl RBC Auto (Bld) [#/Vol]5.7 E9/LNormal 4.0-11.0[facility] Hospital LimaComment on above:Performed By: #### [id number] #### [facility] [address] [place] [address] 88744XVCMWAZNPXcljuwt By: SYSTEM SYSTEM on 60-32-0656Aurusld [Mass/Vol]4.0 g/dLNormal3.3 - 5.0 gm/dLRemisol ChemAlbumin/Globulin [Mass ratio] 1.5 {ratio}Normal1.1 - 2.2Remisol ChemALP [Catalytic activity/Vol]72 [iU]/d Xliesk42 - 98 Int._Unit/LRemisol ChemALT No additional P-5'-P [Catalytic activity/Vol]12 [iU]/dNormal6 - 46 Int._Unit/LRemisol ChemAnion gap [Moles/Vol]9 mmol/LNormal6 - 16 mEq/LRemisol ChemAST [Catalytic activity/Vol]17 [iU]/dNormal 5 - 43 Int._Unit/LRemisol ChemBilirubin [Mass/Vol]0.7 mg/dLNormal0.0 - 1.1 mg/dL Remisol ChemBilirubin.direct [Mass/Vol]0.1 mg/dLNormal0.0 - 0.4 mg/dLRemisol ChemBilirubin.indirect [Mass or moles/Vol]0.6 mg/dLNormal0.1 - 0.9 mg/dLRemisol ChemCalcium [Mass/Vol]9.0 mg/dLNormal8.9 - 11.1 mg/dLRemisol ChemChloride [Moles/Vol]108 mmol/UZrvfbb981 - 111 mmol/LRemisol ChemCO2 [Moles/Vol]27 mmol/L Iswfkg55 - 31 mmol/LRemisol ChemCreatinine [Mass/Vol]0.6 mg/dLNormal0.5 - 1.3 mg/dLRemisol DtnvdQPD388 mL/min/1.73 l0Tyntxy>=59mL/min/1.73 y1Qdafmog Chem Globulin (S) [Mass/Vol]2.6 g/dLNormal1.4 - 4.0 gm/dLRemisol ChemGlucose [Mass/Vol]108 mg/pRZqhxoq54 - 199 mg/dLRemisol ChemLipase [Catalytic activity/Vol]35 U/NGemadz16 - 58 unit/LRemisol ChemPotassium [Moles/Vol]3.8 mmol/LNormal3.5 - 5.3 mmol/LRemisol ChemProtein [Mass/Vol]6.6 g/dLNormal6.0 - 7.8 gm/dLRemisol ChemSodium [Moles/Vol]140 mmol/SBcgbnw578 - 145 mmol/LRemisol ChemUrea nitrogen [Mass/Vol]15 mg/dLNormal5 - 21 mg/dLRemisol ChemUrea nitrogen/Creatinine [Mass ratio]25 mg/coCqwf99 - 20Remisol ChemED Clinical Summaryon [id number] Clinical SummaryED Clinical Summary [place] [id number] ED Clinical Summary Person Information Name: MILADIS CHA [facility] Age: 28 Years : 1995 Sex: Female Language: Gabonese PCP: Thania OWENS DO, FAAFP Marital Status: Single Phone: [phone] Visit Id: Visit Reason: Vomiting; Nausea; Abdominal [...] 07/15/2024 21:17:31 07/15/2024 21:17:31 07/15/2024 21:17:31 ADDRESS: [address] [place] [phone] PHYS DOC NOTES: MEDICAL INFORMATION: Prescriptions Given: New Medications [id number] [address], [place] [id number], [phone] docusate (docusate sodium 100 mg Cap) 1 [...] With: Address: When: Jose L Hartley [address] [facility], [address] [place] [id number] [phone] Business (1) In 5 days 07/20/2024 With: Address: When: Thania OWENS [address] [facility], [address] [place] [phone] Business (1) In 3 days DIAGNOSIS: Abdominal painNormalFisher Fort Bend Medical CenterED Note-Physicianon [id number] Note-PhysicianED Note-Physician Basic Information Time Seen: Ephraim Botello DO 07/15/2024 19:05 Chief Complaint pt to ER c/o abd pain and distention in the umbilical region that started 1 week ago. Pt seen by [facility], recommended follow up with OB-REAMING MACHINE TENDER. Pt also reports n/v. History of Present [...] and Complexity of Problems Differential Diagnosis: [] [facility] Data External documents reviewed: N/A My [...] She also has an appointment with her MUSIC INDUSTRY INTERN on Wednesday which I encouraged her to keep. Patient states understanding and agreement with this plan was discharged in stable condition. Shared decision making: As above Code status: N/A Assessment/Plan Abdominal pain (R10.9: Unspecified abdominal pain) Orders: docusate, 100 mg = 1 cap(s), Oral, BID, X 7 day(s), # 14 cap(s), Refills(s) 0, [id number], 160, cm, 07/15/24 19:11:00 EST, Height/Length Dosing, 74.1, kg, 07/15/24 19:11:00 EST, Weight Dosing morphine, 4 mg = 1 mL, Injection, IV Push, Once, Stop date 07/15/24 19:34:00 EST, STAT, Start date 07/15/24 19:34:00 EST, 07/15/24 19:34:00 EST polyethylene glycol 3350, 17 gram, Oral, Daily, dissolve in water before taking, # 527 gram, Refills(s) 0, [facility]acy[id number], 160, cm, 07/15/24 19:11:00 EST, Height/Length [...] Hartley In 5 days 07/20/[address], [address] [place] [phone] Business (1) Additional Instructions: Thania OWENS In [address] [place] [address]- Business (1) Additional Instruction (more content not included)...[facility] HospitalComment on above:Result Comment: Electronically Signed By: Ephraim Botello DO\.br\Date and Time Signed: 07/15/24 21:14 ESTED Patient Summaryon [id number] Patient SummaryED Patient Summary [address] [address] Patient Discharge Instructions Person Information Name: SEMAJ, MILADIS Julio C Age: 28 Years Arrival Date: 07/15/2024 18:56:55 Discharge Diagnosis: Abdominal pain Primary Care Physician: Thania OWENS DO, FAAFP Provider Information Primary Provider: Ephraim Botello DO Advanced Adult Literacy Teacher:None The exam and treatment you received in the Emergency Department were for an urgent problem and are not intended as complete care. It is important that you follow up with a doctor, nurse practitioner,or physician???s food and beverage assistant for ongoing care. If your symptoms [...] With: Address: When: Jose L Hartley [address], [address] [place] [phone] Business (1) In 5 days 07/20/2024 With: Address: When: Thania OWENS [address] [place] [address] Business (1) In 3 days In the event that this physician does not participate in your insurance network, please consult with your insurance company to find a nearby participating provider. Patient Education Materials: Abdominal Pain, Adult A MESSAGE TO ALL PATIENTS REGARDING OPIOIDS PRESCRIPTION OPIOIDS: WHAT YOU NEED TO KNOW Prescription opioids can be used to help relieve totgnupo-kx-jdeykf pain and are often prescribed following a [...] of opioids abuse and (more content not included)...[facility] HospitalExtra Blueon 21-13-1506Ijqc Collected PlasmaYesInvalid Interpretation [facility] CenterComment on above:Performed By: #### [id number] #### [facility] [address] [place] [address] 27095VWOBFJESQOUcpjhiu By: SYSTEM SYSTEM on 48-06-5261Nroizjlne/100 WBC (Bld)0.4 %Normal0.0 - 2.0 %Remisol HemeBasophils/Leukocytes Auto (Bld) [Pure # fraction]0.0 E9/LNormal0.0 - 0.2 E9/LRemisol HemeEosinophils (Bld) [#/Vol]0.1 E9/LNormal0.0 - 0.5 E9/LRemisol HemeEosinophils/100 WBC (Bld)1.4 %Normal0.0 - 8.0 %Remisol HemeErythrocyte distribution width (RBC) [Ratio]13.5 %Pgihlt23.9 - 14.2 %Remisol HemeHematocrit (Bld) [Volume fraction]36.2 %Kmtuit86.0 - 46.0 % Remisol HemeHemoglobin (Bld) [Mass/Vol]12.5 g/sULrlkbg76.0 - 16.0 gm/dLRemisol HemeLymphocytes (Bld) [#/Vol]1.6 E9/LNormal1.0 - 4.0 E9/LRemisol Heme Lymphocytes/100 WBC (Bld)27.9 %Ontpfw48.0 - 50.0 %Remisol HemeMCH (RBC) [Entitic mass]30.3 txUowiji88.0 - 34.0 pgRemisol HemeMCHC (RBC) [Mass/Vol]34.6 g/dL Oyuere60.4 - 36.0 gm/dLRemisol HemeMCV (RBC) [Entitic vol]87.5 tSXixigw80.0 - 100.0 fLRemisol HemeMonocytes (Bld) [#/Vol]0.4 E9/LNormal0.2 - 1.0 E9/LRemisol HemeMonocytes/100 WBC (Bld)7.2 %Normal4.0 - 14.0 %Remisol HemeNeutrophils (Bld) [#/Vol]3.6 E9/LNormal2.0 - 7.5 E9/LRemisol HemeNeutrophils/100 WBC (Bld)63.1 % Hhxzek05.0 - 75.0 %Remisol HrekCoqfjylx229.0 E9/SWixtvw270.0 - 500.0 E9/LRemisol HemePlatelet mean volume (Bld) [Entitic vol]8.3 fLNormal6.4 - 10.8 fLRemisol HemeRBC (Bld) [#/Vol]4.1 E12/LLow4.3 - 5.9 E12/LRemisol HemeWBC corrected for nucl RBC Auto (Bld) [#/Vol]5.7 E9/LNormal4.0 - 11.0 E9/LRemisol HemeHep Func Panelon 33-38-2874Evqqccn [Mass/Vol]4.0 g/dLNormal3.3-5.0Kindred Hospital LimaComment on above:Performed By: #### [id number] #### [facility] [address] [place] [address] 96[address]Yfxgizk/Globulin (S) [Mass conc ratio]1.6Meawnl4.1-2.2FMercy Health Fairfield HospitalComment on above:Performed By: #### [id number] #### [facility] [address] [place] [address]49[address]OMM [Catalytic activity/Vol]72 Int._Unit/ELqqlwp27-24KoyfdoKindred Hospital LimaComment on above:Performed By: #### [id number] #### [facility] [address] [place] [address] 29118PCX No additional P-5'-P [Catalytic activity/Vol]12 Int._Unit/L Normal6-46Kind[facility] Hospital LimaComment on above:Performed By: #### [id number] #### [facility] [address] [place] [address] 074[address]KQO [Catalytic activity/Vol]17 Int._Unit/LNormal5-43[facility] Hospital LimaComment on above:Performed By: #### [id number] #### [facility] [address] [place] [address] 42045Xbrttoewd [Mass/Vol]0.7 mg/dLNormal0.0-1.1FMercy Health Fairfield HospitalComment on above:Performed By: #### [id number] #### [facility] [address] [place] [address]Godvghyox.direct [Mass/Vol]0.1 mg/dLNormal0.0-0.4FMercy Health Fairfield HospitalComment on above:Performed By: #### [id number] #### [facility] [address] [place] [address]Lawhlkvoz.indirect [Mass or moles/Vol]0.6 mg/dLNormal0.1-0.9 [facility] LimaComment on above:Performed By: #### [id number] #### [facility] [address] [place] [address] 884[address]Kmgmrlfl (S) [Mass/Vol]2.6 g/dLNormal1.4-4.0[facility] Hospital LimaComment on above:Performed By: #### [id number] #### [facility] [address], [place] [address]Cxhbopo [Mass/Vol]6.6 g/dLNormal6.0-7.8[facility] Hospital LimaComment on above:Performed By: #### [id number] #### [facility] [address], [place] [address]Nhfqvo Levelon 75-94-2309Akydzd [Catalytic activity/Vol]35 U/L Mszgmz15-34SwpeunKindred Hospital LimaComment on above:Performed By: #### [id number] #### [facility] [address], [place] [address]QKBQIENWFwyckax By: Adams Anderson on 18-98-1208OUN.beta subunit (U) [Moles/Vol]NegativeNormalALLIANCEHEALTH [place] [facility] [place] Man SeroU BetaHcg Qualon 51-77-7040ZMN.beta subunit (U) [Moles/Vol]NegativeNormalKindred Hospital LimaComment on above:Performed By: #### [id number] #### [facility] [address], [place] [address]QJ with Cult Rflxon 54-38-0569Qqyomzor Auto Ql (U)TraceNormal TraceKindred Hospital LimaComment on above:Performed By: #### [id number] #### [facility] [address], [place] [address]Xoukloirz Ql (U)NegativeNormalNegativeKindred Hospital LimaComment on above:Performed By: #### [id number] #### [facility] [address], [place] [address]Dhqffna (U)ClearNormalClearKindred Hospital LimaComment on above:Performed By: #### [id number] #### [facility] [address], [place] [address]Jzpvn (U)YellowNormalYellowKindred Hospital LimaComment on above:Result Comment: Microscopic readings are only performed on those samples that meet specific criteria set forth by [facility].Performed By: #### [id number] #### [facility] [address], [place] [address]Qqkistcboe cells.squamous Auto (Urine sed) [#/Area]0-2Invalid Interpretation CodeKindred Hospital LimaComment on above:Performed By: #### [id number] #### [facility] [address], [place] [address]Nccmckk Ql (U)NegativeNormalNegativeKindred Hospital Lima Comment on above:Performed By: #### [id number] #### [facility] [address], [place] [address]Iniwvagpai Auto test strip (U) [Mass/Vol]2+ mg/dLAbnormal NegativeKindred Hospital LimaComment on above:Performed By: #### [id number] #### [facility] [address], [place] [address]Zyibjvf Auto test strip Ql (U)NegativeNormalNegativeKindred Hospital LimaComment on above:Performed By: #### [id number] #### [facility] [address], [place] [address]Gupjpoakz esterase Auto test strip Ql (U)NegativeNormalNegative [facility] Hospital LimaComment on above:Performed By: #### [id number] #### [facility] [address], [place] [address]Ivnsa Auto Ql (U)TraceNormalNegCleveland Clinic Lutheran Hospital Comment on above:Performed By: #### [id number] #### [facility] [address], [place] [address]Ubhcqfk Auto test strip Ql (U)NegativeNormalNegativeKindred Hospital LimaComment on above:Performed By: #### [id number] #### [facility] [address], [place] [address]sC (U)5.5 [pH]Invalid Interpretation Code5.0-9.0[facility] Hospital LimaComment on above:Performed By: #### [id number] #### [facility] [address] [place] [address]Ckakbln Ql (U)NegativeNormalNegCleveland Clinic Lutheran Hospital Comment on above:Performed By: #### [id number] #### [facility] [address] [place] [address]UBD Ql (U)5-07Pgencmrt8-5MbssbiMercy Health Fairfield HospitalComment on above:Performed By: #### [id number] #### [facility] [address] [place] [address]Iamzkxnk gravity (U) [Rel density]1.030Invalid Interpretation Code1.005-1.030Kind[facility] Hospital LimaComment on above:Performed By: #### [id number] #### [facility] [address] [place] [address]Nxqktdzixzal (U) [Mass/Vol]NegativeNormalNegativeKindred Hospital LimaComment on above:Performed By: #### [id number] #### [facility] [address] [place] [address]NCY Auto (Urine sed) [#/Area]2-6Gpciha1-3EikvdvMercy Health Fairfield HospitalComment on above:Performed By: #### [id number] #### [facility] [address] [place] [address]Qzah of Urine collection methodClean CatchNormalKindred Hospital LimaComment on above:Performed By: #### [id number] #### [facility] [address] [place] [address]RRZQOBURIMThhfvho By: SYSTEM SYSTEM on 73-23-6334Mlzojpbr Auto Ql (U)Trace /HPFNormalTrace/HPFFTMC UA Auto SSBilirubin Ql (U)NegativeNormal Negativemg/dLFTMC UA Auto SSClarity (U)Clear (07/15/24 7:20 PM)NormalClearFTMC UA Auto SSColor (U)Yellow 1 (07/15/24 7:20 PM)NormalYellowALLIANCEHEALTH [place] [facility] [place] UA Auto SSComment on above:Interpretive Data: Microscopic readings are only performed on those samples that meet specific criteria set forth by [facility].Epithelial cells.squamous Auto (Urine sed) [#/Area]0-2 graded/HPFInvalid Interpretation CodeALLIANCEHEALTH [place] [facility] [place] UA Auto SSGlucose Ql (U)NegativeNormalNegativemg/dLALLIANCEHEALTH [place] [facility] [place] UA Auto SS Hemoglobin Auto test strip (U) [Mass/Vol]2+ mg/dLInvalid Interpretation Code Negativemg/dLFT UA Auto SSKetones Auto test strip Ql (U)NegativeNormal Negativemg/dLFT UA Auto SSLeukocyte esterase Auto test strip Ql (U)Negative NormalNegativeLeu/uLFT UA Auto SSMucus Auto Ql (U)Trace graded/LPFNormal Negativegraded/LPFFTMC UA Auto SSNitrite Auto test strip Ql (U)NegativeNormal Negativemg/dLALLIANCEHEALTH [place] [facility] [place] UA Auto SSpH (U)5.5 *NA* (07/15/24 7:20 PM)Invalid Interpretation Code5.0 - 9.0[facility] [place] [facility] [place] UA Auto SSProtein Ql (U)NegativeNormalNegativemg/dLALLIANCEHEALTH [place] [facility] [place] UA Auto SSRBC Ql (U)4-20 graded/HPFInvalid Interpretation Code0-3graded/HPFALLIANCEHEALTH [place] [facility] [place] UA Auto SSSpecific gravity (U) [Rel density]1.030 *NA* (07/15/24 7:20 PM)Invalid Interpretation Code1.005 - 1.030[facility] [place] [facility] [place]A Auto SS Urobilinogen (U) [Mass/Vol]NegativeNormalNegativemg/dLALLIANCEHEALTH [place] [facility] [place] UA Auto SSWBC Auto (Urine sed) [#/Area]0-5 graded/HPFNormal0-5graded/HPFALLIANCEHEALTH [place] [facility] [place] UA Auto SSURINALYSIS Ordered By: Jessa Hough on 48-94-8269NX Spec DescClean Catch (07/15/24 7:20 PM)NormalALLIANCEHEALTH [place] [facility] [place] UA Auto SSeGFRon 64-73-0299pBHL542 mL/min/1.73 m2 Normal>=59Fisher [facility] InstituteComment on above:Performed By: #### [id number] #### [facility] [address] [place], [place] [address]Sinrwq Medicine Office/Clinic Noteon 67-43-7821Kbvrxw Medicine Office/Clinic NoteFatempleton developmental center Medicine Office/Clinic Note Chief Complaint cough/worms in [...] created with voice recognition software. Occasional wrong-word or?uhusa-x-dsch? substitutions may have occurred due to the [...] With When Contact Information NONE, [phone] Additional Instruc (more content not included)...[facility] HospitalComment on above:Result Comment: Electronically Signed By: Marco A DOHERTY, Jovon Nguyễn\.br\Date and Time Signed: 04/19/2418:49 EDTCDiff PCRon 04-18-2024. difficile toxin A+B Ql (Stl)YESNoAshtabula County Medical CenterComment on above:Performed By: #### [id number] #### [facility] [address] [place] [address]YOqtc PCROrder Cancelled Unable to perform test due to consistency of stool. C. Difficile testing will only be performed on diarrheal (unformed) stool unless ileus due to C. difficile is expected. Reference: Clinical Practice Guidelines for Clostridium difficile Infection in Adults, Infection and Hospital Epidemiology November 2009, Vol 31, No 5. [facility] HospitalEnteric Panel by PCRon 04-18-2024. coli+jejuni+upsaliensis DNA MIAH+non-probe Ql (Stl)Not detectedNoAshtabula County Medical CenterComment on above:Result Comment: Testing was performed utilizing reverse major league baseball player (RT), polymerase chain reaction (PCR), and array [...] GI/GII, and Yersinia enterocolitica were tested by Verigene nulcleic acidtest.Performed By: #### [id number] #### [facility] [address] [place] [address]C. coli stx1+stx2 genes MIAH+non-probe Ql (Stl)NegativeNoCommunity Regional Medical CenterComment on above:Performed By: #### [id number] #### [facility] [address], [place] [address]Uxrqigc Panel by PCRShiga Tox Interp Negative for Shiga Toxin producing E. coliNoAshtabula County Medical Center Enteric Panel Intrl QCPassMartins Ferry HospitalComment on above: Result Comment: Testing was performed utilizing reverse major league baseball player (RT), polymerase chain reaction (PCR), and array [...] Shiga toxins 1 and 2.Performed By: #### [id number] #### [facility] [address] [place] [address]Ainzhysii genogroup I+II RNA MIAH+non-probe Ql (Stl)Not detected [facility] HospitalComment on above:Performed By: #### [id number] #### [facility] [address] [place] [address]16[address]Jesxxxexl A RNA MIAH+non-probe Ql (Stl)Not detectedNoAshtabula County Medical CenterComment on above:Performed By: #### [id number] #### [facility] [address], [place] [address]G. enterica+bongori DNA MIAH+non-probe Ql (Stl)Not detected NormalKindred Hospital LimaComment on above:Result Comment: This test result should be correlated with clinical presentations and medical history by a healthcare provider to determine its clinical significance.Performed By: #### [id number] #### [facility] [address], [place] [address]Lmnyfmvq species+EIEC invasion plasmid antigen H ipaH gene MIAH+non-probe Ql (Stl)Not detectedNormalKindred Hospital LimaComment on above:Performed By: #### [id number] #### [facility] [address], [place] [address]J. cholerae+parahaemolyticus+vulnificus DNA MIAH+non-probe Ql (Stl)Not detectedNormalKindred Hospital LimaComment on above:Performed By: #### [id number] #### [facility] [address], [place] [address]M. enterocolitica DNA MIAH+non-probe Ql (Stl)Not detectedNormal [facility] Hospital LimaComment on above:Performed By: #### [id number] #### [facility] [address] [place] [address]OH Chest 2 Viewson 37-48-6241PY Chest 2 ViewsExam Date/Time: 04/17/2024 18:52 EDT Reason for Exam: Cough Report IMPRESSION: NO EVIDENCE OF ACTIVE CHEST DISEASE. CLINICAL HISTORY: Cough. COMPARISON: 02/19/2023. COMMENT: The heart is normal in size. The mediastinum is unremarkable. The lungs appear clear. No infiltration nor pleural effusion is evident. No significant change is noted when compared to the prior exam. Ordering Provider: Jovon Strikcland FINAL REPORT Dictated: 04/18/2024 7:45 am Dre Carvajal M.D. Signed (Electronic Signature): 04/18/2024 7:45 am Signed by: Dre Carvajal M.D. Transcribed by: SEBASTIAN Technologist: JOESPH Technical Comments Radiation Dose: Ka,r in mGy = n.a DAP = n.[facility] CenterAmbulatory Visit Summaryon 04-17-2024 Ambulatory Visit SummaryAmbulatory Visit Summary MILADIS CHA :1995 Visit Date:04/17/2024 Ambulatory Visit Instructions Your [...] you for choosing us for your care. [facility] HospitalPhysician Orderon 01-04-2024 Physician [id number]#1.00TIFFNormalKindred Hospital LimaBhCG Quanton 05-66-2395AJS.beta subunit Qn8 m[IU]/mLHigh1-3 [facility] Hospital LimaComment on above:Result Comment: 'F NON < 1 - 3' ' 0.2 - 1 WEEK = 5 TO 50' ' 1 - 2 WEEKS = 50 - 500' ' 2 - 3 WEEKS = 100 - 5000' ' 3 - 4 WEEKS = 500 - 03756' ' 4 - 5 WEEKS = 1000 - 31027' ' 5 - 6 WEEKS = 15826 - 420839' ' 6 - 8 WEEKS = 12056 - 447546' ' 8 - 12 WEEKS = 66374 - 460724'Performed By: #### [id number] #### [facility] [address] [place] [address] 245[address]ITCFWTAWNCqhqujo By: SYSTEM SYSTEM on 25-33-6189JTQ.beta subunit Qn8 m[IU]/mLHigh1 - 3 mIU/mLRemisol ChemComment on above:Result Comment: 'F NON < 1 - 3' ' 0.2 - 1 WEEK = 5 TO 50' ' 1 - 2 WEEKS = 50 - 500' ' 2 - 3 WEEKS = 100 - 5000' ' 3 - 4 WEEKS = 500 - 93996' ' 4 - 5 WEEKS = 1000 - 93636' ' 5 - 6 WEEKS = 48697 - 140855' ' 6 - 8 WEEKS = 26008 - 827596' ' 8 - 12 WEEKS = 18340 - 139423'Consent for Treatmenton 11-19-2023 Consent for [id number]#1.00TIFFNormal [facility] LimaPhysician Orderon 49-36-9745Fgeltgafx Order [id number]#1.00TIFFNormalKindred Hospital LimaAT IIIon 34-85-6931Beqqtcodtude actual/normal Chromogenic method (PPP) [Rel catalytic activity/Vol]109 %Invalid Interpretation Cydf60-305YmrpysKindred Hospital LimaComment on above:Result Comment: Direct Xa inhibitor anticoagulants such as rivaroxaban, apixaban and edoxaban will lead to spuriously elevated antithrombin activity levels possibly masking a deficiency.Performed By: #### [id number] #### [facility] [address], [place] [address]Ncalsurfaqvi Ag actual/normal IA (PPP) [Relative mass conc]97 % Invalid Interpretation Jumx73-462UhzulhKindred Hospital LimaComment on above: Result Comment: This test was developed and its performance characteristics determined by [facility]. It has not been cleared or approved by the Food and Drug Administration. Performed at: [address] [id number] MD Constantin Munozformed By: #### [id number] #### [facility] [address], [place] [address]Adyt-4 Glycoprot.i Aon 16-63-5769Yfkb 2 glycoprotein 1 IgA Qn (S)<9Invalid Interpretation Code0-25Kindred Hospital LimaComment on above: Result Comment: The reference interval reflects a 3SD or 99th percentile interval, which is thought to represent a potentially clinically significant result in accordance with the International Consensus Statement on the classification criteria for definitive antiphospholipid syndrome (APS). J Thromb Haem 2006;4:295-306.Performed By: #### [id number] #### [facility] [address], [place] [address]Xelo 2 glycoprotein 1 IgG Qn (S)<9Invalid Interpretation Code 0-20[facility] Hospital LimaComment on above:Result Comment: The reference interval reflects a 3SD or 99th percentile interval, which is thought to represent a potentially clinically significant result in accordance with the International Consensus Statement on the classification criteria for definitive antiphospholipid syndrome (APS). J Thromb Haem 2006;4:295-306.Performed By: #### [id number] #### [facility] [address], [place] [address]Gozl 2 glycoprotein 1 IgM Qn (S)<9Invalid Interpretation Code 0-32[facility] Hospital LimaComment on above:Result Comment: The reference interval reflects a 3SD or 99th percentile interval, which is thought to represent a potentially clinically significant result in accordance with the International Consensus Statement on the classification criteria for definitive antiphospholipid syndrome (APS). J Thromb Haem 2006;4:295-306. Performed at: [address] [id number] MD Constantin Munozformed By: #### [id number] #### [facility] [address], [place] [address]Copxgf V Leidenon 19-17-9593H9 gene p.Mxj547Crf Molgen Ql (Bld/Tiss)CommentInvalid Interpretation CodeKindred Hospital LimaComment on above:Result Comment: Result: c.1601G>A (p.Dvn857Bhk) - Not Detected This result is not associated with an increased risk for venous thromboembolism. See Additional Clinical Information and Comments. Additional Clinical Information: Venous thromboembolism is a multifactorial disease influenced by genetic, environmental, and circumstantial risk factors. The c.1601G>A (p. Rjq411Uib) variant in the F5 gene, commonly referred [...] c.*97G>A variant and Factor V Leiden (PMID: 92666707). Additional risk factors include but are not [...] health care providers to discuss results at [phone] (9029). Test Details: Variant Analyzed: c.1601G>A (p. Yii419Nld), referred to as Factor V Leiden Methods/Limitations: [...] developed and its performance characteristics determined by [employer]. It has not been cleared or approved by the Food and Drug Administration. References: Karla S, Hyun AK, Pankaj R, Megan WW, Glen JH; ACMG Professional Practice and Guidelines Committee. Addendum: [place] [employer] consensus statement on factor V Leiden mutation testing. [employer]. 2020Oct 04. doi: 10.1038/i53749-589-43966-b. PMID: 16168044. Kenisha LATIF. Factor V Leiden Thrombophilia. 1998December 13 (Updated 2017Aug 05). In: Beck MP, Fe HH, Monserrat RA, et al., editors. Jesus(R) (Internet). [place] ([place]): [facility]; 2244-6080. Available from: https://www.ncbi.nlm.nih.gov/books/LEI9686/ Hadley S, Hyun AK, Giovanni X, Efrain B, Markell EB, Marietta P, Ko CS; [facility] Laboratory Putty Glazer Committee. Venous thromboembolism laboratory testing (factor V Leiden and factor II c.*97G>A), 2018 update: a technical standard of the [employer] ([employer]). [employer] Med. 2018 Jul;20(12):4482-6960. doi: 10.1038/q46392-166-5940-h. Epub 2017May 06. PMID: 87757834.Performed By: #### [id number] #### [facility] [address], [place] [address]Omozhek C Activityon 94-24-1618Nvjumag C actual/normal Coag (PPP) [Relative time]118 %Invalid Interpretation Skhf56-731NbhruoKindred Hospital LimaComment on above:Result Comment: Performed at: [address] [id number] MD Constantin Munozformed By: #### [id number] #### [facility] [address], [place] [address]Owkzexj S-antigenon 12-38-5939Ddhunqj S Ag actual/normal IA (PPP) [Relative mass conc]84 %Invalid Interpretation Faec65-020RwzskxKindred Hospital LimaComment on above:Result Comment: This test was developed and its performance characteristics determined by [facility]. It has not been cleared or approved by the Food and Drug Administration.Performed By: #### [id number] #### [facility] [address], [place] [address]Mudfxhk S Free Ag actual/normal IA (PPP) [Relative mass conc]57 %Kcn38-321KwdlgiKindred Hospital LimaComment on above:Result Comment: Performed at: [address] [id number] MD Constantin Munozformed By: #### [id number] #### [facility] [address], [place] [address]FjRH Quanton 21-57-7215EGU.beta subunit Qn20 m[IU]/mLHigh1-3 [facility] LimaComment on above:Result Comment: 'F NON < 1 - 3' ' 0.2 - 1 WEEK = 5 TO 50' ' 1 - 2 WEEKS = 50 - 500' ' 2 - 3 WEEKS = 100 - 5000' ' 3 - 4 WEEKS = 500 - 40803' ' 4 - 5 WEEKS = 1000 - 35481' ' 5 - 6 WEEKS = 22071 - 208274' ' 6 - 8 WEEKS = 47672 - 111252' ' 8 - 12 WEEKS = 82263 - 966684'Performed By: #### [id number] #### [facility] [address], [place] [address]UIELCFBHYWaxqjxw By: SYSTEM SYSTEM on 95-13-1103HBC.beta subunit Qn20 m[IU]/mLHigh1 - 3 mIU/mLRemisol ChemComment on above:Result Comment: 'F NON < 1 - 3' ' 0.2 - 1 WEEK = 5 TO 50' ' 1 - 2 WEEKS = 50 - 500' ' 2 - 3 WEEKS = 100 - 5000' ' 3 - 4 WEEKS = 500 - 73459' ' 4 - 5 WEEKS = 1000 - 77984' ' 5 - 6 WEEKS = 25438 - 207993' ' 6 - 8 WEEKS = 99266 - 517627' ' 8 - 12 WEEKS = 01262 - 394125'Consent for Treatmenton 11-15-2023 Consent for [id number]#1.00TIFFNormal [facility] LimaPhysician Orderon 22-62-7104Srldzivmn Order [id number]#1.00TIFFNormalKindred Hospital LimaBhCG Quanton 10-99-2980DFZ.beta subunit Qn62 m[IU]/mLHigh1-3FMercy Health Fairfield HospitalComment on above:Result Comment: 'F NON < 1 - 3' ' 0.2 - 1 WEEK = 5 TO 50' ' 1 - 2 WEEKS = 50 - 500' ' 2 - 3 WEEKS = 100 - 5000' ' 3 - 4 WEEKS = 500 - 14926' ' 4 - 5 WEEKS = 1000 - 99843' ' 5 - 6 WEEKS = 90604 - 283353' ' 6 - 8 WEEKS = 35795 - 745528' ' 8 - 12 WEEKS = 58744 - 453267'Performed By: #### [id number] #### [facility] [address], [place] [address]NBKQSBRFICotcrgu By: SYSTEM SYSTEM on 12-67-9214IKC.beta subunit Qn62 m[IU]/mLHigh1 - 3 mIU/mLRemisol ChemComment on above:Result Comment: 'F NON < 1 - 3' ' 0.2 - 1 WEEK = 5 TO 50' ' 1 - 2 WEEKS = 50 - 500' ' 2 - 3 WEEKS = 100 - 5000' ' 3 - 4 WEEKS = 500 - 89258' ' 4 - 5 WEEKS = 1000 - 06222' ' 5 - 6 WEEKS = 95733 - 704338' ' 6 - 8 WEEKS = 28166 - 815620' ' 8 - 12 WEEKS = 87218 - 244971'Consent for Treatmenton 11-11-2023 Consent for [id number]#1.00TIFFNormal [facility] LimaPhysician Orderon 69-36-9131Lldidpidh Order [id number]#1.00TIFFNormalKindred Hospital LimaLab Miscellaneous-LCon 61-59-1678Oct MiscellaneousCOMMENTInvalid Interpretation [facility] CenterComment on above:Result Comment: Test Ordered: [id number] Dilute Jose's Viper Venom DRVVT Screen Seconds 39.9 sec UY Reference Range: <= 47.0 DRVVT Confirm Seconds NIY sec UY Testing Not Indicated DRVVT Ratio NIY ratio UY Testing Not Indicated Performed at: [facility] [address] [place] [address] [id number] PhD Jean-Pierre Cerdaformed By: #### [id number] #### [facility] [address], [place] [address]Ddq Miscellaneous-LCon 09-08-5946Esb MiscellaneousCOMMENT Invalid Interpretation [facility] InstituteComment on above:Result Comment: Test Ordered: [id number] Anticardiolipin Ab, IgG/M, Qn Anticardiolipin Ab,IgG,Qn <9 GPL U/mL CB Reference Range: 0-14 Negative: <15 Indeterminate: 15 - 20 Low-Med Positive: >20 - 80 High Positive: >80 Anticardiolipin Ab,IgM,Qn <9 MPL U/mL CB Reference Range: 0-12 Negative: <13 Indeterminate: 13 - 20 Low-Med Positive: >20 - 80 High Positive: >80 Performed at: [facility] [address] [id number] PhD Jean-Pierre GiraldoPerformed By: #### [id number] #### [facility] [address], [place] [address]QaEH Quanton 81-51-1488QBZ.beta subunit Wb01784 m[IU]/mLHigh1-3 [facility] LimaComment on above:Result Comment: 'F NON < 1 - 3' ' 0.2 - 1 WEEK = 5 TO 50' ' 1 - 2 WEEKS = 50 - 500' ' 2 - 3 WEEKS = 100 - 5000' ' 3 - 4 WEEKS = 500 - 54349' ' 4 - 5 WEEKS = 1000 - 25596' ' 5 - 6 WEEKS = 11660 - 950281' ' 6 - 8 WEEKS = 47495 - 541995' ' 8 - 12 WEEKS = 04771 - 915496'Performed By: #### [id number] #### [facility] [address], [place] [address]THJKPBBEAKfwlrby By: SYSTEM SYSTEM on 67-82-8405LBF.beta subunit Ka35531 m[IU]/mLHigh1 - 3 mIU/mLRemisol ChemComment on above:Result Comment: 'F NON < 1 - 3' ' 0.2 - 1 WEEK = 5 TO 50' ' 1 - 2 WEEKS = 50 - 500' ' 2 - 3 WEEKS = 100 - 5000' ' 3 - 4 WEEKS = 500 - 46820' ' 4 - 5 WEEKS = 1000 - 69328' ' 5 - 6 WEEKS = 26879 - 039130' ' 6 - 8 WEEKS = 42818 - 281238' ' 8 - 12 WEEKS = 37585 - 924278'Protein [Mass/Vol]8.0 g/dLHigh6.0 - 7.8 gm/dLRemisol ChemConsent for Treatmenton 48-18-5495Hzhmevh for Treatment [id number]#1.00TIFCleveland Clinic Union HospitalLab Miscellaneous-LCon 14-08-9109Qfiy Idif237446Rhfupxq Interpretation [facility] CenterComment on above:Performed By: #### [id number] #### [facility] [address], [place] [address]Arqe NameDRVVTInvalid Interpretation [facility] CenterComment on above:Performed By: #### [id number] #### [facility] [address], [place] [address]Xnhw Acxd610375Rdukexp Interpretation [facility] CenterComment on above:Performed By: #### [id number] #### [facility] [address], [place] [address]Xhwn Nameanticar igg/igmInvalid Interpretation [facility] CenterComment on above:Performed By: #### [id number] #### [facility] [address], [place] [address]Jegdoygqs Orderon 47-53-1659Vavhgvozb Order [id number]#1.00TIFCleveland Clinic Union HospitalReference Laboratory TestingOrdered By: Mariel Schmidt on 23-65-3449Rbzl Paub299217 1Invalid Interpretation CodeALL[facility] [place] [place] SendOutsSSTest [id number] 1Invalid Interpretation CodeFT SendOutsSSTest Nameanticar igg/igmInvalid Interpretation CodeALL[facility] [place] SendOutsSSTest NameDRVVTInvalid Interpretation CodeALL[facility]ANCEHEALTH [place] SendOutsSS Total Proteinon 40-10-3874Nagxttt [Mass/Vol]8.0 g/dLHigh6.0-7.8Leightoner [facility] Luke InstituteComment on above:Performed By: #### [id number] #### [facility] [address] [place], [place] [address]II Note-Physicianon 15-25-0650DX Note-PhysicianBasic Information Time Seen: Libby Ham DO 10/30/2023 18:56 Chief Complaint c/o pelvic pain and dark brown discharge x2 days. States changing pad every hour today. Denies clots. Approx. [address] Mendoza. History of Present Illness Patient is a 28-year-old female G2, P0 currently approximately 6 to 7 weeks gestation presenting tot ED for evaluation of pelvic pain and [...] and Complexity of Problems Differential Diagnosis: [] [facility] Data External documents reviewed: [] My [...] Ahsan MENDOZA In 3 days 11/02/[address] , [place] [address]- Business (1) Additional Instructions: Please follow-up with Dr. Mendoza on Wednesday. Until you are seen by him to rest and not put anything in the vagina. Please follow-up with your primary care doctor and MUSIC INDUSTRY INTERN forfurther evaluation management. Return to ED for any new or worsening symptoms. Thania OWENS In 3 days [address] [facility], [place] [address]- [phone] Business (1) Additional Instructions: Patient Education Threatened Miscarriage, Knsb-xi-Ycim Problem List/Past Medical History Ongoing Abnormal mammogram [...] duct lesion, nipple or areolar lesion (except 24557), open, male or female, 1 or more lesions (11/01/2020),Esophagogastroduodenoscopy (04/14/2019), Laparoscopy (2018), Colonoscopy (02/25/2015), wisdom teethremoved x4 (2010). Medications (more content not included)...[facility]erry HospitalComment on above: Result Comment: Electronically Signed By: Libby Ham DO.kashif\Date and Time Signed: 10/31/23 00:41 EDTUS 1st Trimesteron 52-68-0131QA 1st TrimesterExam Date/Time: 10/30/2023 21:30 EDT Reason [...] Uterus Volume: 225.8 cm3 Single intrauterine identified. Robins-rump length measures 5.04 cm. Mean sac diameter [...] Nathan Marrero MD Transcribed by: SEBASTIAN Technologist: LINDA Technical Comments LMP : 08/25/23 History 3 Para 1 SAB 1 Transabdominal Ultrasound Performed Transvaginal Ultrasound Performed Size < Dates Uterus Position AntevertedMartins Ferry HospitalUS Transvaginalon 39-91-8745IY TransvaginalExam Date/Time: 10/30/2023 21:31 EDT Reason for Exam: Vaginal bleeding Report See ultrasound for report of transvaginal examination. Ordering Provider: Libby Ham FINAL REPORT Dictated: 10/31/2023 11:53 am Nathan Marrero MD Signed (Electronic Signature): 10/31/2023 11:53 am Signed by: Nathan Marrero MD Transcribed by: SEBASTIAN Technologist: DeepakKindred Hospital LimaABO/Rhon 69-84-8460YIK/RhPositiveInvalid Interpretation [facility] Comment on above:Performed By: #### [id number] ####[facility] [address] [place], [place] [address]VLROR BANKOrdered By: Martine Nelson on 79-43-9319FRU/Rh InterpPositiveInvalid Interpretation [facility] BB Subsection BMPon 63-95-4541Ezzyv gap [Moles/Vol]11 mmol/LNormal6-16[facility] LimaComment on above:Performed By: #### [id number], [id number], [id number] #### [facility] [address], [place] [address]Ytognqt [Mass/Vol]9.7 mg/dLNormal8.9-11.1FMercy Health Fairfield HospitalComment on above:Performed By: #### 5804589, 34833729, 4616167 #### [facility] [address], [place] [address]Hscvcjui [Moles/Vol]105 mmol/ZRmvwhb834-684QdlnvkKindred Hospital LimaComment on above:Performed By: #### 5615925, 83155488, 4858687 #### [facility] [address], [place] [address]DM8 [Moles/Vol]25 mmol/NQhjfcl82-48LqxztpKindred Hospital Lima Comment on above:Performed By: #### 7389401, 96865134, 4557684 #### [facility] [address], [place] [address]Elbrwnpwon [Mass/Vol]0.6 mg/dLNormal0.5-1.3FMercy Health Fairfield HospitalComment on above:Performed By: #### 0063003, 52460005, 0164577 #### [facility] [address], [place] [address]Psyawzr [Mass/Vol]85 mg/dCIzjugu46-160AyywxsKindred Hospital LimaComment on above:Performed By: #### 7333744, 25269889, 1954896 #### [facility] [address], [place] [address]Tvyfourut [Moles/Vol]3.7 mmol/LNormal3.5-5.3FMercy Health Fairfield HospitalComment on above:Performed By: #### 5739209, 37527300, 7141416 #### [facility] [address], [place] [address]Halano [Moles/Vol]137 mmol/LBfjppa174-887MvobxsKindred Hospital LimaComment on above:Performed By: #### 3539481, 44956234, 2933761 #### [facility] [address], [place] [address]Knrl nitrogen [Mass/Vol]13 mg/dLNormal5-21[facility] Hospital LimaComment on above:Performed By: #### 5948379, 84180047, 8124743 #### [facility] [address], [place] [address]Xivg nitrogen/Creatinine [Mass ratio]22 No HhgibPtfw05-91ZuxfevKindred Hospital LimaComment on above:Performed By: #### 9077673, 53088600, 6939611 #### [facility] [address], [place] [address]CnPW Quanton 63-41-7427WLD.beta subunit Ir89861 m[IU]/mLHigh1-3 [facility] LimaComment on above:Result Comment: 'F NON < 1 - 3' ' 0.2 - 1 WEEK = 5 TO 50' ' 1 - 2 WEEKS = 50 - 500' ' 2 - 3 WEEKS = 100 - 5000' ' 3 - 4 WEEKS = 500 - 75348' ' 4 - 5 WEEKS = 1000 - 24890' ' 5 - 6 WEEKS = 23686 - 931797' ' 6 - 8 WEEKS = 71769 - 965764' ' 8 - 12 WEEKS = 15884 - 257831'Performed By: #### [id number] #### [facility] [address] [place] [address]ZVL w/ Auto Diffon 03-62-5040Wqrhamxly/100 WBC (Bld)1.5 %Normal 0.0-2.0[facility] Hospital LimaComment on above:Performed By: #### 4700385, 15752389, 1099529 #### [facility] [address], [place] [address]Jfzuafhqc/Leukocytes Auto (Bld) [Pure # fraction]0.1 E9/LNormal 0.0-0.2Fisher [facility] InstituteComment on above:Performed By: #### 9330393, 77102135, 0775876 #### [facility] [address] [place] [address]Wztcqrduquo (Bld) [#/Vol]0.1 E9/LNormal0.0-0.5FMercy Health Fairfield HospitalComment on above:Performed By: #### 5431133, 12972368, 2250367 #### [facility] [address] [place] [address]Tgloukqxpsl/100 WBC (Bld)1.4 %Normal0.0-8.0[facility] LimaComment on above:Performed By: #### 3127644, 19984401, 8352215 #### [facility] [address] [place] [address]Jmaojuidjxs distribution width (RBC) [Ratio]13.5 %Normal 10.9-14.2FMercy Health Fairfield HospitalComment on above:Performed By: #### 0622678, 29777999, 9711976 #### [facility] [address] [place] [address]Yotzvzewde (Bld) [Volume fraction]41.5 %Eucujc33.0-46.0[facility] Hospital LimaComment on above:Performed By: #### 5655422, 25816111, 4881349 #### [facility] [address] [place] [address]Rzrwbdfdjz (Bld) [Mass/Vol]13.5 g/fBHjpbpu31.0-16.0[facility] LimaComment on above:Performed By: #### 4517723, 34003033, 2260405 #### [facility] [address] [place] [address]Opvdaecvkez (Bld) [#/Vol]1.5 E9/LNormal1.0-4.0[facility] LimaComment on above:Performed By: #### 3217970, 23660494, 4330296 #### [facility] [address] [place] [address]Kszgoytppip/100 WBC (Bld)26.3 %Nmstxb15.0-50.0[facility] LimaComment on above:Performed By: #### 7673532, 64278120, 5091069 #### [facility] [address] [place] [address] 01937LTA (RBC) [Entitic mass]28.7 jhYowtpa48.0-34.0[facility] Hospital LimaComment on above:Performed By: #### 5807511, 84134414, 0441380 #### [facility] [address] [place] [address] 406[address]MDCY (RBC) [Mass/Vol]32.7 g/mMOglllh84.4-36.0[facility] LimaComment on above:Performed By: #### 2669794, 43057179, 8099635 #### [facility] [address] [place] [address] 664[address]MHY (RBC) [Entitic vol]87.8 iDStzmcr90.0-100.0[facility] LimaComment on above:Performed By: #### 2473836, 78847837, 9484455 #### [facility] [address] [place] [address] 130[address]Vlnutxcwz (Bld) [#/Vol]0.4 E9/LNormal0.2-1.0[facility] LimaComment on above:Performed By: #### 6664423, 58670657, 7771122 #### [facility] [address] [place] [address]Brraziszecm (Bld) [#/Vol]3.5 E9/LNormal2.0-7.5FMercy Health Fairfield HospitalComment on above:Performed By: #### 8129324, 39264746, 5400879 #### [facility] [address] [place] [address] 32482Pblwwjudird/100 WBC (Bld)63.6 %Csbdua46.0-75.0[facility] LimaComment on above:Performed By: #### 1561105, 51062579, 2879588 #### [facility] [address], [place] [address]Qjyfbjhd422.0 E9/AJbcmii825.0-500.0[facility] Comment on above:Performed By: #### 9573839, 63289347, 0990299 #### [facility] [address], [place] [address]Oxsilqyw mean volume (Bld) [Entitic vol]7.9 fLNormal6.4-10.8 [facility] LimaComment on above:Performed By: #### 9486554, 72908792, 0982398 #### [facility] [address], [place] [address]IAG (Bld) [#/Vol]4.7 E12/LNormal4.3-5.9[facility] LimaComment on above:Performed By: #### 0590087, 23328685, 6441799 #### [facility] [address], [place] [address]DWF corrected for nucl RBC Auto (Bld) [#/Vol]5.6 E9/LNormal 4.0-11.0[facility] LimaComment on above:Performed By: #### 7391392, 69898210, 7191855 #### [facility] [address] [place] [address]DXXSKKLXAHxydxga By: SYSTEM SYSTEM on 80-30-1640Upoeo gap [Moles/Vol]11 mmol/LNormal6 - 16 mEq/LRemisol ChemCalcium [Mass/Vol]9.7 mg/dL Normal8.9 - 11.1 mg/dLRemisol ChemChloride [Moles/Vol]105 mmol/GCtdwim240 - 111 mmol/LRemisol ChemCO2 [Moles/Vol]25 mmol/FIwiehn56 - 31 mmol/LRemisol Chem Creatinine [Mass/Vol]0.6 mg/dLNormal0.5 - 1.3 mg/dLRemisol XzzcqPIC409 mL/min/1.73 e9Abdlbh>=59mL/min/1.73 k9Owtjodg ChemGlucose [Mass/Vol]85 mg/dL Mkjizz02 - 199 mg/dLRemisol ChemHCG.beta subunit Bv65056 m[IU]/mLHigh1 - 3 mIU/mLRemisol ChemComment on above:Result Comment: 'F NON < 1 - 3' ' 0.2 - 1 WEEK = 5 TO 50' ' 1 - 2 WEEKS = 50 - 500' ' 2 - 3 WEEKS = 100 - 5000' ' 3 - 4 WEEKS = 500 - 24380' ' 4 - 5 WEEKS = 1000 - 91079' ' 5 - 6 WEEKS = 00447 - 765245' ' 6 - 8 WEEKS = 32878 - 762291' ' 8 - 12 WEEKS = 93575 - 797752'Potassium [Moles/Vol]3.7 mmol/LNormal3.5 - 5.3 mmol/LRemisol ChemSodium [Moles/Vol]137 mmol/GLteqqk210 - 145 mmol/L Remisol ChemUrea nitrogen [Mass/Vol]13 mg/dLNormal5 - 21 mg/dLRemisol ChemUrea nitrogen/Creatinine [Mass ratio]22 mg/urKrgq53 - 20Remisol ChemConsent for Treatmenton 61-02-1818Wjxfvqd for Treatment [id number]#1.00Bellevue HospitalDischarge Instructionson 66-90-7482Zjkrlwgpz Instructions [id number]#1.00TIFMem[facility] Health [facility] Clinical Summaryon 27-34-0208RJ Clinical Summary [place] [address] ED Clinical Summary Person Information Name: MILADIS CHA Julio C [place] Age: 28 Years : 1995 Sex: Female Language: Gabonese PCP: Thania OWENS DO, FAAFP Marital Status: [...] 10/30/2023 22:00:12 10/30/2023 22:00:12 10/30/2023 22:00:12 AD[address]: [address] [facility] [id number] [facility] DOC NOTES: MEDICAL INFORMATION: Prescriptions Given: Medications [...] 0. PATIENT EDUCATION INFORMATION: Instructions: Threatened Miscarriage, Kpbm-rd-Bcxx Follow up: With: Address: When: Ahsan MENDOZA [facility], [address] [facility] [place] [address] Business (1) In 3 days 11/02/2023 Comments: Please follow-up with Dr. Mendoza on Wednesday. Until you are seen by him to rest and not put anything in the vagina. Please follow-up with your primary care doctor and MUSIC INDUSTRY INTERN for further evaluation management. Return to ED for any new or worsening symptoms. With: Address: When: Thania OWENS [address] [facility], [place] [address] Business (1) In 3 days DIAGNOSIS: Threatened miscarriageNormalFisher Jhonatan Medical CenterED Patient Education Note on 68-89-0697EZ Patient Education NoteObstetrics and Gynecology Threatened Miscarriage [...] provider. Document Revised: 01/17/2021 Document Reviewed: 01/17/2021 [employer] Patient Education ? 2022 [employer] ED Patient Summaryon 40-03-2010ET Patient Summary [address] [address] Patient Discharge Instructions Person Information Name: MILADIS CHA Age: 28 Years Arrival Date: 10/30/2023 18:16:12 Discharge Diagnosis: Threatened miscarriage Primary Care Physician: Thania OWENS DO, FAAFP Provider Information Primary Provider: Libby Ham DO Advanced Adult Literacy Teacher:None The exam and treatment you received in the Emergency Department were for an urgent problem and are not intended as complete care. It is important that you follow up with a doctor, nurse practitioner,or physician?s food and beverage assistant for ongoing care. If your symptoms [...] Follow-up Instructions: With: Address: When: Ahsan MENDOZA [facility], [address] [place] [address] [place] [address] Business (1) In 3 days 11/02/2023 Comments: Please follow-up with Dr. Mendoza on Wednesday. Until you are seen by him to rest and not put anything in the vagina. Please follow-up with your primary care doctor and MUSIC INDUSTRY INTERN for further evaluation management. Return to ED for any new or worsening symptoms. With: Address: When: Thania OWENS [address] [place] [address], [place] [address] Business (1) In 3 days In the event that this physician does not participate in your insurance network, please consult with your insurance company to find a nearby participating provider. Patient Education Materials: Threatened Miscarriage, Dzxu-wl-Sdwq A MESSAGE TO ALL PATIENTS REGARDING OPIOIDS PRESCRIPTION OPIOIDS: WHAT YOU NEED TO KNOW Prescription opioids can be used to help relieve nojvfgur-nb-buwzdq pain and are often prescribed following a [...] back program or yourpharmacy (more content not included)...NormalKindred Hospital LimaHEMATOLOGYOrdered By: SYSTEM SYSTEM on 97-05-3078Oyzgsfkpw/100 WBC (Bld)1.5 %Normal0.0 - 2.0 %Remisol HemeBasophils/Leukocytes Auto (Bld) [Pure # fraction]0.1 E9/LNormal0.0 - 0.2 E9/LRemisol HemeEosinophils (Bld) [#/Vol]0.1 E9/LNormal0.0 - 0.5 E9/LRemisol HemeEosinophils/100 WBC (Bld)1.4 %Normal0.0 - 8.0 %Remisol HemeErythrocyte distribution width (RBC) [Ratio]13.5 %Viqzns95.9 - 14.2 %Remisol HemeHematocrit (Bld) [Volume fraction]41.5 %Srxcxe28.0 - 46.0 % Remisol HemeHemoglobin (Bld) [Mass/Vol]13.5 g/nYAqnwxq00.0 - 16.0 gm/dLRemisol HemeLymphocytes (Bld) [#/Vol]1.5 E9/LNormal1.0 - 4.0 E9/LRemisol Heme Lymphocytes/100 WBC (Bld)26.3 %Efvmmi72.0 - 50.0 %Remisol HemeMCH (RBC) [Entitic mass]28.7 aiZnueew61.0 - 34.0 pgRemisol HemeMCHC (RBC) [Mass/Vol]32.7 g/dL Pbxikv58.4 - 36.0 gm/dLRemisol HemeMCV (RBC) [Entitic vol]87.8 bXSmcoax32.0 - 100.0 fLRemisol HemeMonocytes (Bld) [#/Vol]0.4 E9/LNormal0.2 - 1.0 E9/LRemisol HemeMonocytes/100 WBC (Bld)7.2 %Normal4.0 - 14.0 %Remisol HemeNeutrophils (Bld) [#/Vol]3.5 E9/LNormal2.0 - 7.5 E9/LRemisol HemeNeutrophils/100 WBC (Bld)63.6 % Pyxxqa79.0 - 75.0 %Remisol DixtLnagones293.0 E9/MZfnbhh265.0 - 500.0 E9/LRemisol HemePlatelet mean volume (Bld) [Entitic vol]7.9 fLNormal6.4 - 10.8 fLRemisol HemeRBC (Bld) [#/Vol]4.7 E12/LNormal4.3 - 5.9 E12/LRemisol HemeWBC corrected for nucl RBC Auto (Bld) [#/Vol]5.6 E9/LNormal4.0 - 11.0 E9/LRemisol HemeUA with Cult Rflxon 35-19-5755Ozndg (U)Light-YellowNormalYellowKindred Hospital LimaComment on above:Result Comment: Microscopic readings are only performed on those samples that meet specific criteria set forth by [facility].Performed By: #### [id number] #### [facility] [address], [place] [address]Ecbegco (U) [Mass/Vol]NegativeNormalNegativeKindred Hospital LimaComment on above:Performed By: #### [id number] #### [facility] [address], [place] [address]Quaymqv Ql (U)NegativeNormalNegCleveland Clinic Lutheran Hospital Comment on above:Performed By: #### [id number] #### [facility] [address], [place] [address]YK BloodNegativeNormalNegCleveland Clinic Lutheran Hospital Comment on above:Performed By: #### [id number] #### [facility] [address], [place] [address]RP ClarityClearNormalClearKindred Hospital LimaComment on above:Performed By: #### [id number] #### [facility] Laboratory [address], [place] [address]QQ Leuk EstNegativeMound CityNegCleveland Clinic Lutheran Hospital Comment on above:Performed By: #### [id number] #### [facility] Laboratory [address], [place] [address]DO NitriteNegativeNormalNegativeKindred Hospital [facility] Comment on above:Performed By: #### [id number] #### [facility] Laboratory [address] [place] [address] 01009GG pH7.0Invalid Interpretation Code5.0-9.0[facility] LimaComment on above:Performed By: #### [id number] #### [facility] Laboratory [address] [place] [address] 01822LE ProteinNegativeNormalNegativeKindred Hospital [facility] Comment on above:Performed By: #### [id number] #### [facility] Laboratory [address] [place] [address] 94513AS Spec Grav1.022Invalid Interpretation Code1.005-1.030[facility] Hospital LimaComment on above:Performed By: #### [id number] #### [facility] Laboratory [address] [place] [address] 33592WL UrobilinogenNegativeNormalNegativeKindred Hospital LimaComment on above:Performed By: #### [id number] #### [facility] Laboratory [address] [place] [address] 33749Fsmggqiluhic (U) [Mass/Vol]NegativeNormalNegativeKindred Hospital LimaComment on above:Performed By: #### [id number] #### [facility] Laboratory [address] [place] [address] 12973AX Spec DescClean CatchNormalKindred Hospital LimaComment on above:Performed By: #### [id number] #### [facility] Laboratory [address] [place] [address] 13381VLCCWZRGGZJjxctxx By: SYSTEM SYSTEM on 65-01-4426Iqrpx (U) Light-Yellow 1 (10/30/23 8:29 PM)NormalYelHelen Hayes Hospital UA Auto SSComment on above:Interpretive Data: Microscopic readings are only performed on those samples that meet specific criteria set forth by [facility].Glucose (U) [Mass/Vol]NegativeNormalNegativemg/dLFTMC UA Auto SSKetones Ql (U)NegativeNormal Negativemg/dLFTMC UA Auto SSUA BloodNegativeNormalNegativemg/dLFTMC UA Auto SSUA ClarityClear (10/30/23 8:29 PM)NormalClearFTMC UA Auto SSUA Leuk EstNegativeNormal NegativeLeu/uLFTMC UA Auto SSUA NitriteNegativeNormalNegativemg/dLFTMC UA Auto SSUA pH6.5 *NA* (10/30/23 8:29 PM)Invalid Interpretation Code5.0 - 9.0[facility] UA Auto SSUA Protein NegativeNormalNegativemg/dLFTMC UA Auto SSUA Spec Grav1.020 *NA* (10/30/23 8:29 PM)Invalid Interpretation Code1.005 - 1.030[facility] UA Auto SSUA UrobilinogenNegativeNormalNegativemg/dLFTMC UA Auto SSUrobilinogen (U) [Mass/Vol]NegativeNormalNegativemg/dLFTMC UA Auto SSColor (U)Light-Yellow 2 (10/30/23 6:50 PM)NormalYellowFTMC UA Auto SSComment on above:Interpretive Data: Microscopic readings are only performed on those samples that meet specific criteria set forth by [facility].Glucose (U) [Mass/Vol]NegativeNormalNegativemg/dLFTMC UA Auto SSKetones Ql (U)NegativeNormal Negativemg/dLFTMC UA Auto SSUA BloodNegativeNormalNegativemg/dLFTMC UA Auto SSUA ClarityClear (10/30/23 6:50 PM)NormalClearFTMC UA Auto SSUA Leuk EstNegativeNormal NegativeLeu/uLFTMC UA Auto SSUA NitriteNegativeNormalNegativemg/dLFTMC UA Auto SSUA pH7.0 *NA* (10/30/23 6:50 PM)Invalid Interpretation Code5.0 - 9.0FT[facility] UA Auto SSUA Protein NegativeNormalNegativemg/dLFTMC UA Auto SSUA Spec Grav1.022 *NA* (10/30/23 6:50 PM)Invalid Interpretation Code1.005 - 1.030[facility] UA Auto SSUA UrobilinogenNegativeNormalNegativemg/dLALLIANCEHE[facility] [place] [facility] [place] Auto SSUrobilinogen (U) [Mass/Vol]NegativeNormalNegativemg/dLALLIANCEHEALTH [place] Auto SSURINALYSISOrdered By: Lorena [place] on 62-68-2523RB Spec DescFoley (10/30/23 8:29 PM)NormalALLIANCEHEALTH [place] [facility] [place] Auto SSURINALYSISOrdered By: Louis Santa on 59-99-8871NO Spec DescClean Catch (10/30/23 6:50 PM)[facility] UA Auto SS eGFRon 63-46-9634yIRK942 mL/min/1.73 u2Ifnszh>=59Fisher Saint Luke InstituteComment on above:Order Comment: Order added by Discern Expert.Performed By: #### [id number], [id number], [id number] ####[facility] [address] [place], [place] [address]TdZJ Quanton 10-25-2023 HCG.beta subunit Ro80866 m[IU]/mLHigh1-3Fisher Saint Luke InstituteComment on above:Result Comment: 'F NON < 1 - 3' ' 0.2 - 1 WEEK = 5 TO 50' ' 1 - 2 WEEKS = 50 - 500' ' 2 - 3 WEEKS = 100 - 5000' ' 3 - 4 WEEKS = 500 - 20264' ' 4 - 5 WEEKS = 1000 - 95541' ' 5 - 6 WEEKS = 92103 - 247325' ' 6 - 8 WEEKS = 83321 - 578330' ' 8 - 12 WEEKS = 16951 - 601770'Performed By: #### [id number] #### [facility] Laboratory [address] [place], [place] [address]YDKGSLDUBSungfae By: SYSTEM SYSTEM on 48-11-0776QOD.beta subunit Dk19300 m[IU]/mLHigh1 - 3 mIU/mLRemisol ChemComment on above:Result Comment: 'F NON < 1 - 3' ' 0.2 - 1 WEEK = 5 TO 50' ' 1 - 2 WEEKS = 50 - 500' ' 2 - 3 WEEKS = 100 - 5000' ' 3 - 4 WEEKS = 500 - 82162' ' 4 - 5 WEEKS = 1000 - 88207' ' 5 - 6 WEEKS = 55659 - 107127' ' 6 - 8 WEEKS = 91041 - 173889' ' 8 - 12 WEEKS = 03376 - 525738'Consent for Treatmenton 10-25-2023 Consent for [id number]#1.00TIFFNormal [facility] CenterPhysician Orderon 57-15-5405Qtldopsrw Order [id number]#1.00TIFFNormalFisher [facility] CenterED Note-Physicianon 27-17-6090WG Note-PhysicianBasic Information Time Seen: Ruchi Waldrop PA-C [...] MOOD AND AFFECT Medical Decision Making Per rad tech, negative for DVT. Possibly strain. Possibly Bains's [...] Follow-up With When Contact Information KAYLIN GIL FAAHIREN, Thania Bunch, PATRICIA, PED In 3 days 10/09/2023 EST [address] [facility], [place] [address]- Additional Instructions: Patient Education Musculoskeletal Pain Attestation [...] duct lesion, nipple or areolar lesion (except 74574), open, male or female, 1 or more lesions (11/01/2020),Esophagogastroduodenoscopy (04/14/2019), Laparoscopy (2018), Colonoscopy (02/25/2015), wisdom teethremoved x4 (2010). Medications Inpatient No active inpatient medications Home Lo Loestrin Fe oral tablet Naprosyn 500 mg Tab, 500 mg= 1 tab(s), Oral, BID, PRN omeprazole 40 mg Cap-DR, 40 mg= 1 cap(s), Oral, Daily Vitamin D 50,000 intl units (1.25 mg) oral capsule, 79747 International_Unit= 1 cap(s), Oral, qWeek, 11 refills, [...] data available. Diagnostic Results No qualifying data available.NormalHarris Regional Hospitaler Saint Luke InstituteComment on above: Result Comment: Electronically Signed By: Ruchi Waldrop PA-C\.br\Date and Time Signed: 10/06/23 12:03 EST\.br\Electronically Co-Signed By: Son Reyes MD\.br\Date and Time Co-Signed: 10/23/23 19:26EDTBG Quanton 10-22-2023 HCG.beta subunit Vj74911 m[IU]/mLHigh1-3Fisher Saint Luke InstituteComment on above:Result Comment: 'F NON < 1 - 3' ' 0.2 - 1 WEEK = 5 TO 50' ' 1 - 2 WEEKS = 50 - 500' ' 2 - 3 WEEKS = 100 - 5000' ' 3 - 4 WEEKS = 500 - 68723' ' 4 - 5 WEEKS = 1000 - 98265' ' 5 - 6 WEEKS = 24607 - 719903' ' 6 - 8 WEEKS = 47294 - 877502' ' 8 - 12 WEEKS = 79568 - 534443'Performed By: #### [id number] ####[facility] [address] [place], [place] [address]WKAKSNBYYUhtzobe By: SYSTEM SYSTEM on 51-14-8011ZTX.beta subunit Du05223 m[IU]/mLHigh1 - 3 mIU/mLRemisol ChemComment on above:Result Comment: 'F NON < 1 - 3' ' 0.2 - 1 WEEK = 5 TO 50' ' 1 - 2 WEEKS = 50 - 500' ' 2 - 3 WEEKS = 100 - 5000' ' 3 - 4 WEEKS = 500 - 39552' ' 4 - 5 WEEKS = 1000 - 41763' ' 5 - 6 WEEKS = 44199 - 343717' ' 6 - 8 WEEKS = 96423 - 622389' ' 8 - 12 WEEKS = 65861 - 609235'Consent for Treatmenton 10-22-2023 Consent for [id number]#1.00TIFFNormal [facility] LimaPhysician Orderon 29-85-8607Pxuyqefsl Order [id number]#1.00TIFFNormalKindred Hospital LimaUS OB TRANSVAGINALon 75-34-[place]95[place] [address] Ultrasound Report Signed Patient: MILADIS CHA MR#: [id number] : 1995 Acct:[id number] Age/Sex: 27 / F ADM Date: 10/22/23 Loc: [facility] Attending Dr: Ahsan Mendoza D.O. Ordering Physician: Ahsan Mendoza D.O. Date of Service: 10/22/23 Procedure(s): OB transvaginal Accession Number(s): [id number] cc: Ahsan Mendoza D.O.; Physician,Non-Staff M.Radha The [address] [address] Patient Name: MILADIS CHA MRN: [id number] date: 1995 Sex: F Assigned Patient [facility]: [facility] Current Patient Location: [facility] Accession/Order Number: [id number] Exam Date: 10/22/2023 08:57 Report Date: 10/22/2023 [...] Signed By: 10/22/23 1037 DD/ 1035 TD/TT: Cutting Tool Sharpener:TBHRadiology, Radiologist, MD - 10/22/2023 [place] [address] Ultrasound Report Signed Patient: MILADIS CHA MR#: [id number] : 1995 Acct:[id number] Age/Sex: 27 / F ADM Date: 10/22/23 Loc: [facility] Attending Dr: Ahsan Mendoza D.O. Ordering Physician: Ahsan Mendoza D.O. Date of Service: 10/22/23 Procedure(s): US OB transvaginal Accession Number(s): [id number] cc: Ahsan Mendoza D.O.; Physician,Non-Staff Taurus The [address] [address] Patient Name: MILADIS CHA MRN: [id number] date: 1995 Sex: F Assigned Patient Location: [facility] Current Patient Location: [facility] Accession/Order Number: [id number] Exam Date: 10/22/2023 08:57 Report Date: 10/22/2023 [...] Signed By: 10/22/23 1037 DD/ 1035 TD/TT: Cutting Tool Sharpener: GEETA HealthcareRadiology Study observation (narrative)[facility] OB TRANSVAGINALOrdered By: Radiologist Radiology on 42-02-0839RWHE SIMPLER[employer] Work Phone: consent for Treatmenton 11-41-8968Lsfemqn for [id number]#1.00TIFCleveland Clinic Union HospitalDischarge Instructionson 73-37-8692Solcttvhg Instructions [id number]#1.00TIFMemorial Health System [facility] Clinical Summaryon 05-18-5845NX Clinical Summary [address] [address] ED Clinical Summary Person Information Name: MILADIS CHA Julio C [place] Age: 27 Years : 1995 Sex: Female Language: Gabonese PCP: Thania OWENS DO, FAAFP Marital Status: [...] 12:10:11 10/06/2023 12:10:11 10/06/2023 12:10:11 ADDRESS: [address] [facility] [id number] PHYS DOC NOTES: MEDICAL INFORMATION: Prescriptions Given: [...] up: With: Address: When: KAYLIN GIL FAAFP, Thania Bunch, PATRICIA, PED [address] [facility] [facility] [place] [address] In 3 days 10/09/2023 DIAGNOSIS: 1:Left leg painNormalFisher Jhonatan Medical CenterED Patient Education Noteon 50-13-3620RW Patient Education NoteOrthopedics Musculoskeletal Pain Musculoskeletal pain [...] mouth or applied to the skin. Take vyqk-hve-uvbaefg and prescription medicines only as told by [...] Reviewed: 10/30/2020 Elsevier Patient Education ? 2022 [employer] ED Patient Summaryon 62-45-9415ES Patient Summary [address] [address] Patient Discharge Instructions Person Information Name: MILADIS CHA Age: 27 Years Arrival Date: 10/06/2023 11:00:50 Discharge Diagnosis: 1:Left leg pain Primary Care Physician: Thania OWENS DO, FAAFP Provider Information Primary Provider: Advanced Adult Literacy Teacher:None The exam and treatment you received in the Emergency Department were for an urgent problem and are not intended as complete care. It is important that you follow up with a doctor, nurse practitioner,or physician?s food and beverage assistant for ongoing care. If your symptoms [...] With: Address: When: Thania OWENS DO, FAAFP, [facility], PED [address] [facility], [place] [address] In 3 days 10/09/2023 In the event that this physician does not participate in your insurance network, please consult with your insurance company to find a nearby participating provider. Patient Education Materials: Musculoskeletal Pain A MESSAGE TO ALL PATIENTS REGARDING OPIOIDS PRESCRIPTION OPIOIDS: WHAT YOU NEED TO KNOW Prescription opioids can be used to help relieve wxohtwax-jd-vpumpf pain and are often prescribed following a [...] your community drug take- back program or yourVosturmChatty mail-back program, or flush them down the toilet, following guidance from the Food and Drug Administration (www.fda.gov/Drugs/ResourcesForYou). ? Visit www.cdc.gov/drugoverdose to learn about the risks of opioids abuse and overdose. ? If you believe you may be struggling with addiction, tell your health healthcare administrator and ask for guidance or call [facility]?S National Helpline at 7-047-154-DGNL. o Source: US Department of Health and Human Serv (more content not included)... [facility] HospitalUS LE Venous Duplex Lefton 17-42-9838OK LE Venous Duplex LeftExam Date/Time: 10/06/2023 11:49 [...] Trey Rodrigez MD Transcribed by: SEBASTIAN Technologist: AlexandreJohns Hopkins Bayview Medical CenterG Quanton 39-28-3335Sjam hCG Crg272 mIU/mLHigh1-3FMercy Health Fairfield HospitalComment on above:Result Comment: 'F NON < 1 - 3' ' 0.2 - 1 WEEK = 5 TO 50' ' 1 - 2 WEEKS = 50 - 500' ' 2 - 3 WEEKS = 100 - 5000' ' 3 - 4 WEEKS = 500 - 10852' ' 4 - 5 WEEKS = 1000 - 59444' ' 5 - 6 WEEKS = 42298 - 629038' ' 6 - 8 WEEKS = 31967 - 086914' ' 8 - 12 WEEKS = 53649 - 975801'Performed By: #### [id number] #### [facility] Laboratory [address] [place] [address] 72551NAPWSKQPZGbuahfm By: SYSTEM SYSTEM on 80-72-5155ZND.beta subunit Qn106 m[IU]/mLHigh1 - 3 mIU/mLRemisol ChemComment on above:Result Comment: 'F NON < 1 - 3' ' 0.2 - 1 WEEK = 5 TO 50' ' 1 - 2 WEEKS = 50 - 500' ' 2 - 3 WEEKS = 100 - 5000' ' 3 - 4 WEEKS = 500 - 05457' ' 4 - 5 WEEKS = 1000 - 36797' ' 5 - 6 WEEKS = 65857 - 176554' ' 6 - 8 WEEKS = 34711 - 084655' ' 8 - 12 WEEKS = 97533 - 646245'Consent for Treatmenton 09-25-2023 Consent for [id number]#1.00TIFFLalaCommunity Regional Medical CenterPhysician Orderon 09-24-1967Imqejjzou Order [id number]#1.00TIFFLalaKindred Hospital Dayton Quanton 85-87-1266Jzyx hCG Qnt56 mIU/mLHigh1-3FMercy Health Fairfield HospitalComment on above:Result Comment: 'F NON < 1 - 3' ' 0.2 - 1 WEEK = 5 TO 50' ' 1 - 2 WEEKS = 50 - 500' ' 2 - 3 WEEKS = 100 - 5000' ' 3 - 4 WEEKS = 500 - 04715' ' 4 - 5 WEEKS = 1000 - 04118' ' 5 - 6 WEEKS = 39856 - 727753' ' 6 - 8 WEEKS = 16694 - 945144' ' 8 - 12 WEEKS = 62890 - 828859'Performed By: #### [id number] #### [facility] [address], [place] [address]OXGXZBAFWYbjjqfa By: SYSTEM SYSTEM on 29-06-7529CUE.beta subunit Qn56 m[IU]/mLHigh1 - 3 mIU/mLRemisol ChemComment on above:Result Comment: 'F NON < 1 - 3' ' 0.2 - 1 WEEK = 5 TO 50' ' 1 - 2 WEEKS = 50 - 500' ' 2 - 3 WEEKS = 100 - 5000' ' 3 - 4 WEEKS = 500 - 23774' ' 4 - 5 WEEKS = 1000 - 48727' ' 5 - 6 WEEKS = 24708 - 765904' ' 6 - 8 WEEKS = 95898 - 300816' ' 8 - 12 WEEKS = 87622 - 962346'Consent for Treatmenton 09-23-2023 Consent for [id number]#1.00TIFFNormal [facility]imaUS PELVISon 03-70-7119U[address] [address] Ultrasound Report Signed Patient: MILADIS CHA MR#: [id number] : 1995 Acct:[id number] Age/Sex: 27 / F ADM Date: 07/23/23 Loc: SURGOUT Attending Dr: Ahsan Mendoza D.O. Ordering Physician: Ahsan Mendoza D.O. Date of Service: 07/23/23 Procedure(s): US pelvis Accession Number(s): [id number] cc: Ahsan Mendoza D.O.; Physician,Non-Staff M.D. The [address] [id number] Patient Name: MILADIS CHA MRN: [id number] date: 1995 Sex: F Assigned Patient Location: [facility] Current Patient Location: [facility] Accession/Order Number: [id number] Exam Date: 07/23/2023 10:37 Report Date: 07/23/2023 [...] Signed By: 07/23/23 1130 DD/ 1128 TD/TT: Cutting Tool Sharpener:JOSÉHRadiology, Radiologist, MD - 07/23/2023 [place] [address] Ultrasound Report Signed Patient: MILADIS CHA MR#: [id number] : 1995 Acct:[id number] Age/Sex: 27 / F ADM Date: 07/23/23 Loc: [facility] Attending Dr: Ahsan Mendoza D.O. Ordering Physician: Ahsan Mendoza D.O. Date of Service: 07/23/23 Procedure(s): US pelvis Accession Number(s): [id number] cc: Ahsan Mendoza D.O.; Physician,Non-Staff Taurus The [address] [address] Patient Name: MILADIS CHA MRN: [id number] date: 1995 Sex: F Assigned Patient Location: [facility] Current Patient Location: [facility] Accession/Order Number: [id number] Exam Date: 07/23/2023 10:37 Report Date: 07/23/2023 [...] Signed By: 07/23/23 1130 DD/ 1128 TD/TT: Cutting Tool Sharpener: GEETA HealthcareRadiology Study observation (narrative)[facility] HealthcareUS PELVIS Ordered By: Radiologist Radiology on 89-38-2221[facility] Work Phone: US OB TRANSVAGINALon 16-89-8451[place] [address] Ultrasound Report Signed Patient: MILADIS CHA MR#: [id number] : 1995 Acct:[id number] Age/Sex: 27 / F ADM Date: 07/22/23 Loc: US Attending Dr: Ahsan Mendoza D.O. Ordering Physician: Ahsan Mendoza D.O. Date of Service: 07/22/23 Procedure(s): US OB transvaginal Accession Number(s): [id number] cc: Ahsan Mendoza D.O.; Physician,Non-Staff Taurus The [address] [address] Patient Name: MILADIS CHA MRN: [facility]:[id number] date: 1995 Sex: F Assigned Patient Location: US Current Patient Location: SURGOUT Accession/Order Number: [id number] Exam Date: 07/22/2023 08:02 Report Date: 07/22/2023 [...] M.D. Signed By: 07/22/232231 DD/ 28 TD/TT: Cutting Tool Sharpener:JOSÉHRadiology, Radiologist, - 10/06/2023 [place] [address] Ultrasound Report Signed Patient: MILADIS CHA MR#: [id number] : 1995 Acct:[id number] Age/Sex: 27 / F ADM Date: 07/22/23 Loc: US Attending Dr: Ahsan Mendoza D.O. Ordering Physician: Ahsan Mendoza D.O. Date of Service: 07/22/23 Procedure(s): US OB transvaginal Accession Number(s): [id number] cc: Ahsan Mendoza D.O.; Physician,Non-Staff MAlessandro The [address] [address] Patient Name: MILADIS CHA MRN: [id number] date: 1995 Sex: F Assigned Patient Location: [place] Current Patient Location: [facility] Accession/Order Number: [id number] Exam Date: 07/22/2023 08:02 Report Date: 07/22/2023 [...] M.D. Signed By: 07/22/232231 DD/ 28 TD/TT: Cutting Tool Sharpener: GEETA LunaRadiology Study observation (narrative)[facility] OB TRANSVAGINALOrdered By: Radiologist Radiology on 74-40-9475TPCEWestern Missouri Mental Health Center Work Phone: ed Note-Physicianon 69-28-1300UF Note-PhysicianBasic Information Time Seen: Son Reyes MD [...] ultrasound was discussed at length with the trace evidence technician and reviewed by radiologist. There is intrauterine gestational sac with a possible pole, however this is only measuring 6 weeks, 3 days. No cardiac cavity was identified. This is discussed with the patient. Her significant other is now at bedside as well. He reports that patient had a similar ultrasound finding last week in the MUSIC INDUSTRY INTERN's office as well as an ultrasound yesterday in the office. He is scheduled for another ultrasound next week. Given his additional history, it sounds like the patient is likely experiencing demise, but did explain that I cannot definitively diagnose that today. She is sent for repeat quantitative hCG in 72 hours and to follow-up with MUSIC INDUSTRY INTERN for definitive diagnosis. Patient was encouraged to [...] Information Ahsan MENDOZA In 3 days 07/18/[address] [place] [address] Business (1) Additional Instructions: Patient Education Abdominal Pain During Attestation Patient seen and evaluated by the physician food and beverage assistant. Attending physician was present in the emergency department and supervised care. This visit was performed by both the physician and an APC. I performed all aspects of the MDM as documented. This report was transcribed using voice recognition software. Every effort was made to ensure accuracy, however, inadvertently computerized major league baseball player mistakes may be present. Appropriate healthcare PPE was used in evaluating this patient. The patient was placed in a mask. The healthcare provider was wearing mask, gloves, and utilizing proper hand hygiene. All equipment was properly cleansed. Problem List/Past Medi (more content not included)...[facility] HospitalComment on above:Result Comment: Electronically Signed By: Chapincito José PA-C\.br\Date and Time Signed: 07/15/2316:04 EST\.br\Electronically Co-Signed By: Son Ryees MD\.br\Date and Time Co-Signed: 07/16/23 08:09 ESTAuto Diffon 00-44-4250Xypahbgus/100 WBC (Bld)0.2 %Normal0.0-2.0[facility] Comment on above:Order Comment: Order Added by Discern Expert.Performed By: #### 0730171, 8342271, 56147129, 1389949, 2389383, 4431535, 7479355 ####[address] [address]Uxdjacmpp/Leukocytes Auto (Bld) [Pure # fraction]0.0 E9/LNormal0.0-0.2FMercy Health Fairfield Hospital Comment on above:Order Comment: Order Added by Discern Expert.Performed By: #### 0581170, 6753301, 47234314, 1333328, 5811389, 9105115, 1367991 ####[address] [address]Iprkuhxwpbp/100 WBC (Bld)0.3 %Normal0.0-8.0[facility] Hospital LimaComment on above:Order Comment: Order Added by Discern Expert.Performed By: #### 6403787, 4113662, 84571027, 8786364, 7170132, 5285295, 3776991 ####[address] [address]Udajogncjsn/Leukocytes Auto (Bld) [Pure # fraction]0.0 E9/LNormal0.0-0.5FMercy Health Fairfield HospitalComment on above:Order Comment: Order Added by Discern Expert.Performed By: #### 0641867, 7992545, 31138741, 6944299, 5511111, 4044790, 2873459 ####[address] [address]Uebofwqcdld/100 WBC (Bld)4.1 % Low14.0-50.0[facility] Hospital LimaComment on above:Order Comment: Order Added by Discern Expert.Performed By: #### 6903582, 6342888, 79500949, 3905451, 1319354, 6224658, 1667807 ####[address] [address]Rtymstwoiew/Leukocytes Auto (Bld) [Pure # fraction]0.3 E9/L Low1.0-4.0[facility] LimaComment on above:Order Comment: Order Added by Discern Expert.Performed By: #### 1173630, 7079162, 24474545, 3307563, 5924468, 2116315, 7887506 ####[address] [place], [place] [address]Tvchmlwig/100 WBC (Bld)5.3 %Normal4.0-14.0[facility] LimaComment on above:Order Comment: Order Added by Discern Expert. Performed By: #### 8743963, 8266142, 14294422, 1314722, 6672216, 2401396, 3895310 ####[address] [address]Cgntlxzwk/Leukocytes Auto (Bld) [Pure # fraction]0.3 E9/LNormal0.2-1.0 [facility] LimaComment on above:Order Comment: Order Added by Discern Expert.Performed By: #### 0259258, 7928707, 84449537, 6895723, 9262126, 0408984, 4324568 ####[address] [address]Xthexakznht/100 WBC (Bld)90.1 %High36.0-75.0[facility] LimaComment on above:Order Comment: Order Added by Discern Expert. Performed By: #### 8269110, 4229972, 94692816, 9003104, 3847579, 3260670, 1295963 ####[address] [place], [place] [address]Dyyqgdubbsi/Leukocytes Auto (Bld) [Pure # fraction]5.6 E9/LNormal2.0-7.5 [facility] LimaComment on above:Order Comment: Order Added by Discern Expert.Performed By: #### 2994925, 5483134, 13091754, 9918055, 6228845, 8969827, 6607356 ####[facility] [address] [place], [place] [address]LBVsk 05-13-7933Jijxj gap [Moles/Vol]12 mmol/LNormal6-16 [facility] LimaComment on above:Performed By: #### 7387314, 7837146, 12447674, 8154169, 0185007, 2352511, 0520731 ####[facility] [address] [place], [place] [address]VKR/Creat Ratio14 No KloziSrhugp54-82 [facility] LimaComment on above:Performed By: #### 0604968, 5446211, 79936924, 1405856, 4012521, 9499473, 1961650 ####[facility] [address] [place], [place] [address]Ropzium [Mass/Vol]9.3 mg/dLNormal 8.9-11.1FMercy Health Fairfield HospitalComment on above:Performed By: #### 8029742, 0632114, 09983708, 7026596, 6005170, 4156171, 2952250 ####[facility] [address] [place], [place] [address]Gjuwwpsd [Moles/Vol]102 mmol/L Wstbzq532-658OfbvegKindred Hospital LimaComment on above:Performed By: #### 7390986, 4113504, 91874904, 4180920, 6286455, 6216610, 0209215 ####[facility] [address] [place], [place] [address]ML6 [Moles/Vol]26 mmol/MXshbtr51-95EvwmcrKindred Hospital LimaComment on above:Performed By: #### 4170208, 9745817, 88166120, 9757608, 6613233, 6819109, 6066857 ####[facility] [address] [place], [place] [address]Qhgzhopaba [Mass/Vol] 0.5 mg/dLNormal0.5-1.3FMercy Health Fairfield HospitalComment on above:Performed By: #### 6206869, 9056908, 09151451, 5450042, 9300877, 2100621, 5681650 ####[facility] [address] [place], [place] [address]Iepfdej [Mass/Vol]90 mg/xZBbvuck54-971WrcuieKindred Hospital LimaComment on above: Performed By: #### 6362383, 9138126, 86478073, 6035500, 4697042, 1359370, 2896308 ####[facility] [address] [place], [place] [address]Jhpcezbnk [Moles/Vol]3.7 mmol/LNormal3.5-5.3FMercy Health Fairfield Hospital Comment on above:Performed By: #### 1648902, 8317140, 48792650, 6567815, 9926596, 5497865, 9235242 ####[address] [place], [place] [address]Tialym [Moles/Vol]136 mmol/DKwkkgb611-584TcenjqKindred Hospital LimaComment on above:Performed By: #### 0578890, 1215618, 98807163, 8479434, 2583524, 9674150, 7149556 ####[facility] [address] [place], [place] [address]Sjfz nitrogen [Mass/Vol]7 mg/dLNormal5-21Kindred Hospital LimaComment on above:Performed By: #### 3817422, 1174176, 30677269, 4138915, 7441100, 7308624, 0362739 ####[address] [place], [place] [address]PzIN Quanton 97-37-7504[place] [address] mIU/mLHigh1-3FMercy Health Fairfield HospitalComment on above:Result Comment: 'F NON < 1 - 3' ' 0.2 - 1 WEEK = 5 TO 50' ' 1 - 2 WEEKS = 50 - 500' ' 2 - 3 WEEKS = 100 - 5000' ' 3 - 4 WEEKS = 500 - 67283' ' 4 - 5 WEEKS = 1000 - 98866' ' 5 - 6 WEEKS = 76460 - 317491' ' 6 - 8 WEEKS = 49768 - 749755' ' 8 - 12 WEEKS = 00892 - 970505'Performed By: #### 9852751, 4616253, 89524109, 9324348, 2175595, 9737820, 5378725 ####[address] [place], [place] [address]BWB w/ Auto Diffon 07-15-2023 Erythrocyte distribution width (RBC) [Ratio]13.3 %Tcbxvn17.9-14.2FMercy Health Fairfield HospitalComment on above:Performed By: #### 3923604, 6896138, 28523926, 6165048, 9227542, 1538358, 8926131 ####[facility] [address] [place] [address]Npehzpiidh (Bld) [Volume fraction]38.1 %Normal 34.0-46.0[facility] Hospital LimaComment on above:Performed By: #### 9835675, 5013317, 53556597, 2366150, 8712123, 8795483, 1176561 ####[facility] [address] [place] [address]Vycmsbvtju (Bld) [Mass/Vol] 12.9 g/pNOuwksj17.0-16.0[facility] Hospital LimaComment on above:Performed By: #### 8798262, 1464857, 70682604, 8575386, 4242596, 0907588, 8557540 ####[facility] [address] [place], [place] [address]CRP (RBC) [Entitic mass]29.5 rsBmsiur86.0-34.0[facility] Hospital LimaComment on above:Performed By: #### 5865106, 7071782, 46634177, 8063055, 5297612, 2126290, 0918708 ####[address] [address]AUPG (RBC) [Mass/Vol]33.8 g/oQMftmfe00.4-36.0[facility] Comment on above:Performed By: #### 9771582, 1594627, 93127187, 8556411, 5497241, 3043894, 1408947 ####[address] [address]JKL (RBC) [Entitic vol]87.3 bSOlarfs93.0-100.0[facility] Hospital LimaComment on above:Performed By: #### 0860698, 4160164, 17065774, 9775041, 0950938, 3784212, 3299888 ####[address] [address]Uujslxsv mean volume (Bld) [Entitic vol]8.5 fL Normal6.4-10.8[facility] Hospital LimaComment on above:Performed By: #### 1476028, 0815193, 78804278, 4396518, 1386736, 3074974, 9981466 ####[address] [address]Xctqrtwdb (Bld) [#/Vol]153.0 E9/AKduueh413.0-500.0[facility] Hospital LimaComment on above: Performed By: #### 1480529, 0624818, 78623595, 1464903, 7172263, 0522003, 5736949 ####[address] [address]EHQ (Bld) [#/Vol]4.4 E12/LNormal4.3-5.9[facility] Hospital LimaComment on above:Performed By: #### 3077358, 3208810, 89459973, 5751319, 8224815, 3172881, 9608196 ####[address] [address]PVD corrected for nucl RBC Auto (Bld) [#/Vol]6.2 E9/LNormal 4.0-11.0[facility] Hospital LimaComment on above:Performed By: #### 6176712, 4723864, 93589092, 6329479, 2673259, 7640323, 2761710 ####[facility] [address] [place], [place] [address]HKBKDAAMMDebzpnk By: SYSTEM SYSTEM on 70-02-4590Xxvawpd [Mass/Vol]4.2 g/dLNormal3.3 - 5.0 gm/dLRemisol Chem Albumin/Globulin [Mass ratio]1.5 {ratio}Normal1.1 - 2.2Remisol ChemAlk Phos56 [iU]/mWswcji96 - 98 Int._Unit/LRemisol UxfcQCY90 [iU]/dNormal6 - 46 Int._Unit/L Remisol ChemAnion gap [Moles/Vol]12 mmol/LNormal6 - 16 mEq/LRemisol OhgqHFY73 [iU]/dNormal5 - 43 Int._Unit/LRemisol ChemBili Direct0.2 mg/dLNormal0.1 - 0.4 mg/dLRemisol ChemBili Indirect1.1 mg/dLHigh0.1 - 0.9 mg/dLRemisol ChemBili Total 1.3 mg/dLHigh0.0 - 1.1 mg/dLRemisol ChemCalcium [Mass/Vol]9.3 mg/dLNormal8.9 - 11.1 mg/dLRemisol ChemChloride [Moles/Vol]102 mmol/HJhjplh849 - 111 mmol/L Remisol ChemCO2 [Moles/Vol]26 mmol/RNstmfr71 - 31 mmol/LRemisol ChemCreatinine [Mass/Vol]0.5 mg/dLNormal0.5 - 1.3 mg/dLRemisol ChemeGFRmL/min/1.73 q9Sntpph >=59mL/min/1.73 h5Lfakiym ChemGlobulin (S) [Mass/Vol]2.8 g/dLNormal1.4 - 4.0 gm/dLRemisol ChemGlucose [Mass/Vol]90 mg/lHZmcwxi71 - 199 mg/dLRemisol Chem HCG.beta subunit Ot87033 m[IU]/mLHigh1 - 3 mIU/mLRemisol ChemComment on above: Result Comment: 'F NON < 1 - 3' ' 0.2 - 1 WEEK = 5 TO 50' ' 1 - 2 WEEKS = 50 - 500' ' 2 - 3 WEEKS = 100 - 5000' ' 3 - 4 WEEKS = 500 - 22245' ' 4 - 5 WEEKS = 1000 - 28509' ' 5 - 6 WEEKS = 81732 - 622405' ' 6 - 8 WEEKS = 52466 - 782866' ' 8 - 12 WEEKS = 62105 - 149712'Lipase Lvl13 unit/ZUlcpxa45 - 58 unit/L Remisol ChemPotassium [Moles/Vol]3.7 mmol/LNormal3.5 - 5.3 mmol/LRemisol Chem Protein [Mass/Vol]7.0 g/dLNormal6.0 - 7.8 gm/dLRemisol ChemSodium [Moles/Vol]136 mmol/WEkjebe819 - 145 mmol/LRemisol ChemUrea nitrogen [Mass/Vol]7 mg/dLNormal5 - 21 mg/dLRemisol ChemUrea nitrogen/Creatinine [Mass ratio]14 mg/eiNgbeub47 - 20 Remisol ChemConsent for Treatmenton 62-20-7263Jovrppy for Treatment [id number]#1.00[facility] HospitalDischarge Instructionson 63-05-4889Tiwskrtqq Instructions [id number]#1.00[facility] Clinical Summaryon 20-56-8395HG Clinical Summary [place] [address] ED Clinical Summary Person Information Name: MILADIS CHA Julio C Er[place] Age: 27 Years : 1995 Sex: Female Language: Gabonese PCP: Thania OWENS DO, FAAFP Marital Status: [...] 07/15/2023 14:26:59 07/15/2023 14:26:59 07/15/2023 14:26:59 ADDRESS: [address] [place] [phone] [facility] DOC NOTES: MEDICAL INFORMATION: Prescriptions Given: Medications [...] Follow up: With: Address: When: Ahsan MENDOZA [facility], [address] [place] [address] [place] [address] Business (1) In 3 days 07/18/2023 DIAGNOSIS: Abdominal pain in ; Unspecified abdominal painNormalFisher Jhonatan Medical CenterED Patient Education Noteon 15-94-7686DO Patient Education Note Obstetrics and Gynecology Abdominal [...] keep your urine pale yellow. ? Take eqty-apq-cuccnec and prescription medicines only as told by [...] provider. Document Revised: 04/01/2021 Document Reviewed: 04/01/2021 [employer] Patient Education ? 2022 [employer] ED Patient Summaryon 68-64-2731MC Patient Summary [place] [address] Patient Discharge Instructions Person Information Name: MILADIS CHA Age: 27 Years Arrival Date: 07/15/2023 08:25:24 Discharge Diagnosis: Abdominal pain in ; Unspecified abdominal pain Primary Care Physician: Thania OWENS DO, FAAFP Provider Information Primary Provider: Son Reyes MD Advanced Adult Literacy Teacher:Chapincito José PA-C The exam and treatment you received in the Emergency Department were for an urgent problem and are not intended as complete care. It is important that you follow up with a doctor, nurse practitioner,or physician?s food and beverage assistant for ongoing care. If your symptoms [...] Follow-up Instructions: With: Address: When: Ahsan MENDOZA [facility], [address] [place] [address] [place] [address] Business (1) In 3 days 07/18/2023 In the event that this physician does not participate in your insurance network, please consult with your insurance company to find a nearby participating provider. Patient Education Materials: Abdominal Pain During A MESSAGE TO ALL PATIENTS REGARDING OPIOIDS PRESCRIPTION OPIOIDS: WHAT YOU NEED TO KNOW Prescription opioids can be used to help relieve ihrwxvxb-zm-tdbosh pain and are often prescribed following a [...] your community drug take- back program or [employer] mail-back program, or flush them down the toilet, following guidance from the Food and Drug Administration (www.fda.gov/Drugs/ResourcesForYou). ? Visit www.cdc.gov/drugoverdose to learn about the risks of opioids abuse and overdose. ? If you believe you may be struggling with addiction, tell your health healthcare administrator and ask for guidanc (more content not included)...[facility]erry HospitalHEMATOLOGYOrdered By: SYSTEM SYSTEM on 07-15-2023 Basophils/100 WBC (Bld)0.2 %Normal0.0 - 2.0 %FT HemeAutoSSBasophils/Leukocytes Auto (Bld) [Pure # fraction]0.0 E9/LNormal0.0 - 0.2 E9/LFTMC HemeAutoSS Eosinophils/100 WBC (Bld)0.3 %Normal0.0 - 8.0 %[facility] HemeAutoSS Eosinophils/Leukocytes Auto (Bld) [Pure # fraction]0.0 E9/LNormal0.0 - 0.5 E9/L [facility] HemeAutoSSLymphocytes/100 WBC (Bld)4.1 %Low14.0 - 50.0 %FT HemeAutoSS Lymphocytes/Leukocytes Auto (Bld) [Pure # fraction]0.3 E9/LLow1.0 - 4.0 E9/LFTMC HemeAutoSSMonocytes/100 WBC (Bld)5.3 %Normal4.0 - 14.0 %[facility] HemeAutoSS Monocytes/Leukocytes Auto (Bld) [Pure # fraction]0.3 E9/LNormal0.2 - 1.0 E9/L [facility] HemeAutoSSNeutrophils/100 WBC (Bld)90.1 %High36.0 - 75.0 %[facility] HemeAutoSS Neutrophils/Leukocytes Auto (Bld) [Pure # fraction]5.6 E9/LNormal2.0 - 7.5 E9/L [facility] HemeAutoSSHEMATOLOGYOrdered By: Faheem Montilla on 25-30-3902Nklfesiggoq distribution width (RBC) [Ratio]13.3 %Awlsbg78.9 - 14.2 %[facility] HemeAutoSS Hematocrit (Bld) [Volume fraction]38.1 %Eufrav99.0 - 46.0 %[facility] HemeAutoSS Hemoglobin (Bld) [Mass/Vol]12.9 g/oGXlhhaz56.0 - 16.0 gm/dLFTMC HemeAutoSSMCH (RBC) [Entitic mass]29.5 fnFqwsxo76.0 - 34.0 pgFTMC HemeAutoSSMCHC (RBC) [Mass/Vol]33.8 g/pARrzijl26.4 - 36.0 gm/dLFTMC HemeAutoSSMCV (RBC) [Entitic vol] 87.3 mWFyvcyf16.0 - 100.0 fLFTMC HemeAutoSSPlatelet mean volume (Bld) [Entitic vol]8.5 fLNormal6.4 - 10.8 fLFTMC HemeAutoSSPlatelets (Bld) [#/Vol]153.0 E9/L Axlpbb551.0 - 500.0 E9/LFTMC HemeAutoSSRBC (Bld) [#/Vol]4.4 E12/LNormal4.3 - 5.9 E12/LFTMC HemeAutoSSWBC corrected for nucl RBC Auto (Bld) [#/Vol]6.2 E9/LNormal 4.0 - 11.0 E9/LFTMC HemeAutoSSHep Func Panelon 65-27-4737Jnoxylk [Mass/Vol]4.2 g/dLNormal3.3-5.0[facility] Hospital LimaComment on above:Performed By: #### 1437001, 4529912, 77836013, 0512004, 1651176, 7391347, 4350221 ####[address] [address]Xnqpnwm/Globulin [Mass ratio]1.5 {ratio}Normal1.1-2.2FMercy Health Fairfield HospitalComment on above: Performed By: #### 8802454, 7971340, 01515304, 4915961, 5957920, 8746501, 0083853 ####[address] [address]Bzv Phos56 Int._Unit/VConbuk57-58PqhmelKindred Hospital LimaComment on above:Performed By: #### 9176204, 3835236, 60686090, 6836937, 2387662, 2384389, 3662797 ####[address] [address]LJL89 Int._Unit/LNormal6-46[facility] Hospital LimaComment on above: Performed By: #### 1646468, 9128460, 08954294, 3469764, 7909652, 4053301, 1713609 ####[address] [address]UUD34 Int._Unit/LNormal5-43[facility] Hospital LimaComment on above: Performed By: #### 4328595, 8310668, 21408994, 8950975, 0562851, 7146231, 2662257 ####[address] [address]Oahg Direct0.2 mg/dLNormal0.1-0.4FMercy Health Fairfield HospitalComment on above:Performed By: #### 4754872, 4494416, 21689317, 4075567, 5811131, 8181352, 8633421 ####[address], [place] [address]Hprr Indirect1.1 mg/dLHigh0.1-0.9[facility] Hospital LimaComment on above:Performed By: #### 0380292, 2663945, 04009048, 5171971, 6841294, 6155609, 3451526 ####[address] [address]Vnwv Total1.3 mg/dLHigh0.0-1.1FMercy Health Fairfield HospitalComment on above: Performed By: #### 3596241, 2624659, 95400126, 3160737, 5553394, 1707900, 6928838 ####[address] [address]Dxowavdl (S) [Mass/Vol]2.8 g/dLNormal1.4-4.0[facility] Comment on above:Performed By: #### 5381222, 6763640, 76753919, 1791995, 0348676, 4079993, 3868223 ####[address] [address]Mshfsab [Mass/Vol]7.0 g/dLNormal6.0-7.8[facility] LimaComment on above:Performed By: #### 6520490, 0431785, 18088185, 4332100, 5621096, 7102826, 6594829 ####[address] [address]Rycsiy Levelon 95-63-3756Pbrfbk Lvl13 unit/RXtaobf57-19 [facility] LimaComment on above:Performed By: #### 3430354, 4575755, 02009239, 2461446, 6394114, 6165877, 2150400 ####[address] [address]Slgpaturm Orderon 89-66-6936Xskpoozpv [id number]#1.00TIFFTriHealth Bethesda North HospitalEROLOGYOrdered By: Emilee David on 40-77-7009XWB.beta subunit (U) [Moles/Vol]Positive (07/15/23 8:38 AM)[facility] Man SeroU BetaHcg Qualon 52-02-6640GUC.beta subunit (U) [Moles/Vol]PositiveNormalKindred Hospital LimaComment on above: Performed By: #### [id number] #### [facility] [address], [place] [address]GU With Cult Reflexon 66-83-8268Zsrkjqrr LM Ql (Urine sed)TRACE NormalTraceKindred Hospital LimaComment on above:Performed By: #### 7421364 #### [facility] [address], [place] [address]Gjbpehsmf Ql (U)NegativeNormalNegCleveland Clinic Lutheran HospitalComment on above:Performed By: #### 4043113 #### [facility] [address], [place] [address]Awelvyf (U)CLEARNormalClearKindred Hospital LimaComment on above:Performed By: #### 3833566 #### [facility] [address], [place] [address]Lrmmd (U)YELLOWNormalYellowKindred Hospital LimaComment on above:Performed By: #### 9771669 #### [facility] [address], [place] [address]Grimlcjsic cells.squamous LM.HPF (Urine sed) [#/Area]0-2Normal 0-2Fisher Saint Luke InstituteComment on above:Performed By: #### 3454545 #### [facility] [address], [place] [address]Zzoxbnc Test strip (U) [Mass/Vol]NegativeNormalNegativeKindred Hospital LimaComment on above:Performed By: #### 4084288 #### [facility] [address], [place] [address]Chdseaemcb Ql (U)NegativeNormalNegyukon-kuskokwim delta regional hospitalKindred Hospital LimaComment on above:Performed By: #### 3569681 #### [facility] [address] [place] [address]Dxqmjbi (U) [Mass/Vol]1+AbnormalNegativeKindred Hospital LimaComment on above:Performed By: #### 0942051 #### [facility] [address] [place] [address]Dqgthiy.plasma/[place].RBC (Bld) [Mass ratio]7-8Molqrv1-9Zmtyao [facility] Luke InstituteComment on above:Performed By: #### 0576934 #### [facility] [address] [place] [address]Mkkyv Ql (Urine sed)TRACEMartins Ferry Hospital Comment on above:Performed By: #### 2716065 #### [facility] [address] [place] [address]Pqzptok Ql (U)NegativeNormalNegCleveland Clinic Lutheran Hospital Comment on above:Performed By: #### 1134795 #### [facility] [address] [place] [address] 31791gN (U)7.0 [pH]Invalid Interpretation Code5.0-9.0[facility] LimaComment on above:Performed By: #### 3370871 #### [facility] [address] [place] [address]Gypzuyr (U) [Mass/Vol]NegativeNormalNegativeKindred Hospital LimaComment on above:Performed By: #### 5830456 #### [facility] [address] [place] [address]Zuutwyru gravity (U) [Rel density]1.020Invalid Interpretation Code1.005-1.030[facility] Hospital LimaComment on above:Performed By: #### 8799815 #### [facility] [address] [place] [address]Vhzj of Urine collection methodClean CatchNoAshtabula County Medical CenterComment on above:Performed By: #### 4562287 #### [facility] [address], [place] [address]Qgyhjaozlvgc Qn (U)0.2 {Lorie'U}/dLNormal0.0-1.0[facility] Hospital LimaComment on above:Performed By: #### 6947464 #### [facility] [address], [place] [address]MHO Auto Ql (U)TRACEAbnormalNegativeKindred Hospital Lima Comment on above:Performed By: #### 7603778 #### [facility] [address], [place] [address]ERJ LM.HPF (Urine sed) [#/Area]7-4Jqiihy8-6Bxurxq [facility] InstituteComment on above:Performed By: #### 4583222 #### [facility] [address], [place] [address]YQPEUHCPGQCtzxzow By: Emilee David on 58-78-5869Jgfkervn LM Ql (Urine sed)Trace /HPFNormalTrace/HPFALLIANCEHE[facility] [place] [place] Auto SSBilirubin Ql (U)Negative (07/15/23 8:39 AM)NormalNegativeALLIANCEHEALTH [place] Auto SSClarity (U)Clear (07/15/23 8:39 AM)NormalClearFALLIANCEHEALTH [facility] [place] Auto SSColor (U)Yellow (07/15/23 8:39 AM)NormalYellowALLIANCEHEALTH [place] Auto SSEpithelial cells.squamous LM.HPF (Urine sed) [#/Area]0-2 /HPFNormal0-2/HPFFTMC UA Auto SSGlucose Test strip (U) [Mass/Vol]Negative (07/15/23 8:39 AM)NormalNegativeALL[facility]ANCEHEALTH [place] Auto SSHemoglobin Ql (U)Negative (07/15/23 8:39 AM)NormalNegativeALLIANCEHEALTH [place] Auto SSKetones (U) [Mass/Vol]1+ *ABN* (07/15/23 8:39 AM)Invalid Interpretation CodeNegativeALLIANCEHEALTH [place] Auto SS [place].plasma/[place].RBC (Bld) [Mass ratio]0-3 /HPFNormal0-3/HPFALLIANCEHEALTH [place] Auto SSMucus Ql (Urine sed)Trace (07/15/23 8:39 AM)NormalALLIANCEHEALTH [place] Auto SSNitrite Ql (U)Negative (07/15/23 8:39 AM)NormalNegativeALLIANCEHEALTH [place] Auto SSpH (U)7.0 *NA* (07/15/23 8:39 AM)Invalid Interpretation Code5.0 - 9.0[facility] [place] [facility] [place] Auto SSProtein (U) [Mass/Vol]Negative (07/15/23 8:39 AM)NormalNegativeALLIANCEHEALTH [place] Auto SSSpecific gravity (U) [Rel density]1.020 *NA* (07/15/23 8:39 AM)Invalid Interpretation Code1.005 - 1.030[facility] [place] [facility] [place] Auto SSUA Spec DescClean Catch (07/15/23 8:39 AM)NormalALLIANCEHEALTH [place] Auto SSUrobilinogen Qn (U)0.2644715 {Lorie'U}/dLNormal0.0 - 1.0 EU/dLALLIANCEHEALTH [place] Auto SSWBC Auto Ql (U)Trace *ABN* (07/15/23 8:39 AM)Invalid Interpretation CodeNegativeALLIANCEHEALTH [place] Auto SSWBC LM.HPF (Urine sed) [#/Area]0-5 /HPFNormal0-5/HPFALLIANCEHEALTH [place] Auto SSUS 1st Trimesteron 72-87-6039ZN 1st TrimesterExam Date/Time: 07/15/2023 11:52 EST Reason [...] corresponding gestational age +/- 1 week are: Robins Rump Length: 0.5 cm Composite Ultrasound Age: [...] Para 1 Transabdominal Ultrasound Performed Transvaginal Ultrasound PerformedMartins Ferry HospitalUS Transvaginalon 09-97-1444SQ TransvaginalExam Date/Time: 07/15/2023 11:53 EST Reason for Exam: Pain Report IMPRESSION: PLEASE SEE ULTRASOUND REPORT. CLINICAL HISTORY: Pain COMPARISON: NONE. FINDINGS: Ordering Provider: Chapincito José FINAL REPORT Dictated: 07/15/2023 1:30 pm Mariusz Sepulveda MD, V. Signed (Electronic Signature): 07/15/2023 1:30 pm Signed by: Mariusz Sepulveda MD, V. Transcribed by: SEBASTIAN Technologist: SHANONMartins Ferry HospitaleGFRon 74-34-9744HWC/1.73 sq M.predicted among non-blacks MDRD (S/P/Bld) [Vol rate/Area]mL/min/{1.73_m2}Normal>=59Kindred Hospital LimaComment on above: Order Comment: Order added by Discern Expert.Performed By: #### 7765176, 4907104, 40898102, 4989131, 7082429, 9450664, 8097075 ####[facility] [address] [place], [place] [address]IA OB TRANSVAGINALon 54-46-4413Q[address] [address] Ultrasound Report Signed Patient: MILADIS CHA MR#: [id number] : 1995 Acct:[id number] Age/Sex: 27 / F ADM Date: 07/14/23 Loc: US Attending Dr: Ahsan Mendoza D.O. Ordering Physician: Ahsan Mendoza D.O. Date of Service: 07/14/23 Procedure(s): US OB transvaginal Accession Number(s): [id number] cc: Ahsan Mendoza D.O.; Physician,Non-Staff [place] [address] Patient Name: MILADIS CHA MRN: [id number] date: 1995 Sex: F Assigned Patient Location: US Current Patient Location: US Accession/Order Number: [id number] Exam Date: 07/14/2023 13:25 Report Date: 07/14/2023 [...] Signed By: 07/14/23 154 DD/ 39 TD/TT: Cutting Tool Sharpener:TBHRadiology, Radiologist, - 10/06/[address] [address] Ultrasound Report Signed Patient: MILADIS CHA MR#: [id number] : 1995 Acct:[id number] Age/Sex: 27 / F ADM Date: 07/14/23 Loc: US Attending Dr: Ahsan Mendoza D.O. Ordering Physician: Ahsan Mendoza D.O. Date of Service: 07/14/23 Procedure(s): US OB transvaginal Accession Number(s): [id number] cc: Ahsan Mendoza D.O.; Physician,Non-Staff [place] [id number] Patient Name: MILADIS CHA MRN: [id number] date: 1995 Sex: F Assigned Patient Location: US Current Patient Location: US Accession/Order Number: [id number] Exam Date: 07/14/2023 13:25 Report Date: 07/14/2023 [...] Dictated By: Cely Plata M.D. Signed By: 07/14/231542 DD/ 39 TD/TT: Cutting Tool Sharpener: GEETA HealthcareRadiology Study observation (narrative)NOM HealthcareUS OB TRANSVAGINALOrdered By: Radiologist Radiology on 98-73-9036LNOT Healthcare Work Phone: US OB TRANSVAGINALon [phone], [place] [address] Ultrasound Report Signed Patient: MILADIS CHA MR#: [id number] : 1995 Acct:[id number] Age/Sex: 27 / F ADM Date: 07/08/23 Loc: US Attending Dr: Ahsan Mendoza D.O. Ordering Physician: Ahsan Mendoza D.O. Date of Service: 07/08/23 Procedure(s): US OB transvaginal Accession Number(s): [id number] cc: Ahsan Mendoza D.O.; Physician,Non-Staff [place] [address] Patient Name: MILADIS CHA MRN: [id number] date: 1995 Sex: F Assigned Patient Location: US Current Patient Location: US Accession/Order Number: [id number] Exam Date: 07/08/2023 12:20 Report Date: 07/08/2023 [...] Villagomez M.D. Signed By: 07/08/23 1349 DD/ 46 TD/TT: Cutting Tool Sharpener:TBHRadiologmacario, Radiologist, - 07/08/2023 [place] [address] Ultrasound Report Signed Patient: MILADIS CHA MR#: [id number] : 1995 Acct:[id number] Age/Sex: 27 / F ADM Date: 07/08/23 Loc: US Attending Dr: Ahsan Mendoza D.O. Ordering Physician: Ahsan Mendoza D.O. Date of Service: 07/08/23 Procedure(s): US OB transvaginal Accession Number(s): [id number] cc: Ahsan Mendoza D.O.; Physician,Non-Staff [place] [id number] Patient Name: MILADIS CHA MRN: [id number] date: 1995 Sex: F Assigned Patient Location: US Current Patient Location: US Accession/Order Number: [id number] Exam Date: 07/08/2023 12:20 Report Date: 07/08/2023 [...] Signed By: 07/08/23 1349 DD/ 1347 TD/TT: Cutting Tool Sharpener: GEETA HealthcareRadiology Study observation (narrative)NOMS HealthcareUS OB TRANSVAGINALOrdered By: Radiologist Radiology on 04-97-9307NYPW [employer] Work Phone: cNPNon [phone] (GENSF) MILADIS CHA ([id number]) 1995 F Date Time Provider Department 10/12/22 [...] (None) Encounter Status:Closed by BELLA BARRERA on 10/14/22[facility] MICHEAL W LAINA BILroz [id number] DIAG W LAINA KAYA* * *Final Report* * * DATE OF EXAM: Oct 07 2022 11:40AM [facility] [place] 0627 - [facility] W LAINA KAYA / PROCEDURE REASON: multiple diagnoses * * * * Physician Interpretation * * * * RESULT: #[id number] - [facility] DANIEL MARINA KAYA #[id number] - [facility] US BREAST LTD RT BILATERAL DIGITAL [...] exam dated: 10/07/2022 breast MRI - [facility] tissue of both breasts is extremely [...] exam dated: 10/07/2022 breast MRI - The [facility] & Breast [place]. Color flow and real-time ultrasound of the [...] Health, Family Medicine, and Medical/Surgical Oncology, the [facility] [place] has carefully reviewed the data and reached [...] their providers when to stop screening mammograms. Extrusion Die Template Maker(s): Caro Mcrae RT(R)(M), The [facility] & Breast [place] OVERALL STUDY BIRADS: 2 Benign finding Cutting Tool Sharpener: Jenny Transcribe Date/Time: Oct 07 2022 11:47A Dictated by : DONITA BOONE MD This examination was interpreted and the report reviewed and electronically signed by: DONITA BOONE MD on Oct 07 2022 12:01PM EST [id number] Health [facility] DIAG W LAINA BILATon [id number] ClinicMAM US BREAST LTD RTon 73-79-4505VLC US BREAST LTD RT* * *Final Report* * * DATE OF EXAM: Oct 07 2022 11:59AM [facility] 0594 - [facility] US BREAST LTD RT / PROCEDURE REASON: multiple diagnoses * * * * Physician Interpretation * * * * RESULT: #[id number] - CLEO DIAG W LAINA KAYA #[id number] - [facility] US BREAST LTD RT BILATERAL DIGITAL [...] exam dated: 10/07/2022 breast MRI - [facility] The tissue of both breasts is extremely [...] exam dated: 10/07/2022 breast MRI - [facility]. Color flow and real-time ultrasound of the [...] Health, Family Medicine, and Medical/Surgical Oncology, the [facility] has carefully reviewed the data and reached [...] their providers when to stop screening mammograms. Extrusion Die Template Maker(s): RT Catherine(R)(M), The [facility] & Breast [place] OVERALL STUDY BIRADS: 2 Benign finding Cutting Tool Sharpener: Jenny Transcribe Date/Time: Oct 07 2022 11:47A Dictated by : DONITA BOONE MD This examination was interpreted and the report reviewed and electronically signed by: DONITA BOONE MD on Oct 07 2022 12:01PM EST [id number] Lady Of Mercy HospitalMRI BREAST WO/W IVCON KAYA on 68-23-8173MIS BREAST WO/W IVCON KAYA* * *Final Report* * * DATE OF EXAM: Oct 07 2022 8:25AM [facility] 0773 - MRI BREAST WO/W IVCON KAYA / PROCEDURE REASON: multiple diagnoses * * * * Physician Interpretation * * * * #[id number] - MRI BREAST WO/W IVCON KAYA BREAST [...] Follow-up with ACR/NCCN guidelines. Norma silver/jenny:10/07/2022 08:48:25 Extrusion Die Template Maker(s): RT Emma(R), [facility] MRI BI-RADS: 2 Benign finding Multiple national specialty organizations have released breast cancer screening guidelines for women at average risk for developing breast cancer - guidelines that are based on both evidence and opinion, yet differ on when to start and how often to screen for breast cancer. With representation from Breast Imaging, Internal Medicine, [facility], Family Medicine, and Medical/Surgical Oncology, the [facility] has carefully reviewed the data and reached [...] their providers when to stop screening mammograms. Cutting Tool Sharpener: Jenny Transcribe Date/Time: Oct 07 2022 8:12A Dictated by : NORMA HERNANDEZ MD This examination was interpreted and the report reviewed and electronically signed by: NORMA HERNANDEZ MD on Oct 07 2022 8:48AM EST [id number] Hospital BREAST WO/W IVCON BILATon 31-91-9641Omwykukct ClinicUS BREAST LTD RTon 76-05-8914Hmnxelkry Clinic CHEMISTRYOrdered By: SYSTEM SYSTEM on 90-08-4724Zgyipzk [Mass/Vol]3.9 g/dLNormal 3.3 - 5.0 gm/dLFTMC RemisolAlbumin/Globulin [Mass ratio]1.2 {ratio}Normal1.1 - 2.2[facility] RemisolALP [Catalytic activity/Vol]60 [iU]/gLbcsgr32 - 98 Int._Unit/L [facility] RemisolALT No additional P-5'-P [Catalytic activity/Vol]14 [iU]/dNormal6 - 46 Int._Unit/LFTMC RemisolAnion gap [Moles/Vol]13 mmol/LNormal6 - 16 mEq/LFTMC RemisolAST [Catalytic activity/Vol]16 [iU]/dNormal5 - 43 Int._Unit/LFTMC Remisol Bilirubin [Mass/Vol]1.0 mg/dLNormal0.0 - 1.1 mg/dLFTMC RemisolBilirubin.direct [Mass/Vol]0.2 mg/dLNormal0.1 - 0.4 mg/dLFTMC RemisolBilirubin.indirect [Mass or moles/Vol]0.8 mg/dLNormal0.1 - 0.9 mg/dLFTMC RemisolCalcium [Mass/Vol]9.0 mg/dL Normal8.9 - 11.1 mg/dLFTMC RemisolChloride [Moles/Vol]104 mmol/YLpyzan977 - 111 mmol/LFTMC RemisolCO2 [Moles/Vol]26 mmol/VBlpbep25 - 31 mmol/LFTMC Remisol Creatinine [Mass/Vol]0.6 mg/dLNormal0.5 - 1.3 mg/dLFTMC RemisolGFR/1.73 sq M.predicted among blacks MDRD (S/P/Bld) [Vol rate/Area]mL/min/1.73 t4Nzdkvu >=59mL/min/1.73 m2[facility] Chem SGFR/1.73 sq M.predicted among non-blacks MDRD (S/P/Bld) [Vol rate/Area]mL/min/1.73 z1Pgwkll>=59mL/min/1.73 m2[facility] Chem S Globulin (S) [Mass/Vol]3.4 g/dLNormal1.4 - 4.0 gm/dLFTMC RemisolGlucose [Mass/Vol]105 mg/sUGmbqpm95 - 199 mg/dLFTMC RemisolLipase [Catalytic activity/Vol]39 U/BLprwcc82 - 58 unit/LFTMC RemisolPotassium [Moles/Vol]4.1 mmol/LNormal3.5 - 5.3 mmol/LFTMC RemisolProtein [Mass/Vol]7.3 g/dLNormal6.0 - 7.8 gm/dLFTMC RemisolSodium [Moles/Vol]139 mmol/QYavrel042 - 145 mmol/LFTMC RemisolUrea nitrogen [Mass/Vol]11 mg/dLNormal5 - 21 mg/dLFTMC RemisolUrea nitrogen/Creatinine [Mass ratio]18 mg/caAkjpeo74 - 20FT[facility] RemisolHEMATOLOGY Ordered By: SYSTEM SYSTEM on 55-32-3575Chpwwspjn/100 WBC (Bld)0.4 %Normal0.0 - 2.0 %[facility] HemeAutoSSBasophils/Leukocytes Auto (Bld) [Pure # fraction]0.0 E9/L Normal0.0 - 0.2 E9/LFTMC HemeAutoSSEosinophils/100 WBC (Bld)0.7 %Normal0.0 - 8.0 %[facility] HemeAutoSSEosinophils/Leukocytes Auto (Bld) [Pure # fraction]0.0 E9/L Normal0.0 - 0.5 E9/LFTMC HemeAutoSSLymphocytes/100 WBC (Bld)21.1 %Jogcnb43.0 - 50.0 %[facility] HemeAutoSSLymphocytes/Leukocytes Auto (Bld) [Pure # fraction]1.4 E9/L Normal1.0 - 4.0 E9/LFTMC HemeAutoSSMonocytes/100 WBC (Bld)4.9 %Normal4.0 - 14.0 %[facility] HemeAutoSSMonocytes/Leukocytes Auto (Bld) [Pure # fraction]0.3 E9/LNormal 0.2 - 1.0 E9/LFTMC HemeAutoSSNeutrophils/100 WBC (Bld)72.9 %Pwspfe88.0 - 75.0 % [facility] HemeAutoSSNeutrophils/Leukocytes Auto (Bld) [Pure # fraction]4.8 E9/LNormal 2.0 - 7.5 E9/LFTMC HemeAutoSSHEMATOLOGYOrdered By: Julia Call on 10-02-2022 Erythrocyte distribution width (RBC) [Ratio]12.7 %Ptqvil97.9 - 14.2 %[facility] HemeAutoSSHematocrit (Bld) [Volume fraction]41.1 %Tppozr00.0 - 46.0 %[facility] HemeAutoSSHemoglobin (Bld) [Mass/Vol]13.4 g/hUNpxdgl43.0 - 16.0 gm/dLFTMC HemeAutoSSMCH (RBC) [Entitic mass]28.7 kgXmtqcy20.0 - 34.0 pgFTMC HemeAutoSSMCHC (RBC) [Mass/Vol]32.5 g/eGVbltjl21.4 - 36.0 gm/dLFTMC HemeAutoSSMCV (RBC) [Entitic vol]88.3 dQSjxylv12.0 - 100.0 fLFTMC HemeAutoSSPlatelet mean volume (Bld) [Entitic vol]8.3 fLNormal6.4 - 10.8 fLFTMC HemeAutoSSPlatelets (Bld) [#/Vol]216.0 E9/XFujtzt646.0 - 500.0 E9/LFTMC HemeAutoSSRBC (Bld) [#/Vol]4.6 E12/LNormal4.3 - 5.9 E12/LFTMC HemeAutoSSWBC corrected for nucl RBC Auto (Bld) [#/Vol]6.5 E9/LNormal4.0 - 11.0 E9/LFTMC HemeAutoSSSEROLOGYOrdered By: Mariel Stafford on 64-94-8802OGD.beta subunit (U) [Moles/Vol]NegativeNormalFTMC Man Sero URINALYSISOrdered By: Maryann Kamara on 99-65-4996Raxqyxjz LM Ql (Urine sed)1+ /HPFInvalid Interpretation CodeTrace/HPFFT UA Auto SSBilirubin Ql (U)Negative (10/02/22 2:14 PM)NormalNegativeALL[facility] [place] Auto SSClarity (U)Slightly Cloudy *ABN* (10/02/22 2:14 PM)Invalid Interpretation CodeClearFTM UA Auto SSColor (U)Yellow (10/02/22 2:14 PM)NormalYellowALLIANCEHEALTH [place] [place] U[place] Auto SSCrystals LM Ql (Urine sed)Present (10/02/22 2:14 PM)NormalALLIANCEHEALTH [facility] [place] U[place] Auto SSEpithelial cells.squamous LM.HPF (Urine sed) [#/Area]3-4 /HPFNormal0-2/HPFALLIANCEHEALTH [facility] [place] U[place] Auto SSGlucose Test strip (U) [Mass/Vol]Negative (10/02/22 2:14 PM)NormalNegativeALL[facility]HE[facility] [place] Auto SSHemoglobin Ql (U)Trace *ABN* (10/02/22 2:14 PM)Invalid Interpretation CodeNegativeALL[facility]ANCEHEALTH [place] [place] Auto SSKetones (U) [Mass/Vol]Negative (10/02/22 2:14 PM)NormalNegativeALL[facility]ANCEHE[facility] [place] [place] UA Auto SSLithium.plasma/[place].RBC (Bld) [Mass ratio]0-3 /HPFNormal0-3/HPFALLIANCEHEALTH [place] [place] [facility] [place] Auto SSNitrite Ql (U)Negative (10/02/22 2:14 PM)NormalNegativeALL[facility] [place] Auto SSpH (U)8.0 *NA* (10/02/22 2:14 PM)Invalid Interpretation Code5.0 - 9.0[facility] [place] Auto SSProtein (U) [Mass/Vol]Negative (10/02/22 2:14 PM)NormalNegativeALL[facility]ANCEHE[facility] [place] Auto SSSpecific gravity (U) [Rel density] 1.020 *NA* (10/02/22 2:14 PM)Invalid Interpretation Code1.005 - 1.030[facility] [place] Auto SSUA Spec DescClean Catch (10/02/22 2:14 PM)NormalALLIANCEHEALTH [facility] [place] U[place] Auto SSUrobilinogen Qn (U)0.7650187 {Lorie'U}/dL Normal0.0 - 1.0 EU/dLALLIANCEHEALTH [place] [place] [facility] [place] Auto SSWBC Auto Ql (U)Negative (10/02/22 2:14 PM)NormalNegativeMELROSEWA[facility] Auto SSWBC LM.HPF (Urine sed) [#/Area]0-5 /HPFNormal0-5/HPFALLIANCEHEALTH [facility] [place] Auto SSCNOVon 31-72-4399HFTVIushno Visit (GENSF) MILADIS CHA ([id number]) 1995 F Date Time Provider Department 08/25/22 2:00 PM MILADIS BUTLER During your visit today, we recorded the following information about you: Weight Height 64.9 kg 1.6 m Miladis Butler DO 08/25/2022 4:56 PM Signed NEW BREAST CONSULTATION SERVICE DATE: 08/24/2022 Consultation requested by Marie So for an opinion regarding Miladis Cha. REASON FOR TODAY'S VISIT: Patient presents with: Breast Problem HISTORY AND CHIEF COMPLAINT: Miladis Cha is a 26 year old female who presents with her boyfriend Jose Luis to the [facility] for an opinion regarding right [...] not included)...NormalFairview HospitalReference Laboratory Testing Ordered By: [facility] DomainUser on 99-60-7622GYSV-CoV-2 (COVID-19) RNA MIAH+probe Ql (Resp)Not detectedInvalid Interpretation CodeNot DetectedALLIANCEHEALTH [facility] [place] [facility] [place] SendOutsSSComment on above:Result Comment: This nucleic acid amplification test was developed and its performance characteristics determined by [employer]. Nucleic acid amplification tests include RT-PCR and [...] detected) result in this assay. Performed at: [address] [id number] PhD Jean-Pierre Arreola [facility] 94-66-1402OVT and Rh group Nom (Bld)ABO/Rh VerificationOhioHealthComment on above:Patient's ABO/Rh is verified.ABO and Rh group Nom (Bld)O PositiveOhioHealthOtheron 09-26-2020 Interpretation and review of laboratory resultsNormalOhioHealthPOC Glucoseon 18-76-5697Pscaukj [Mass/Vol]79 mg/dL65 - 99 mg/dLOhioHealthPOC , Urine on 86-16-0102Chdx HCG ( test) Ql (U)Dilute urine specimens, as indicated by a low specific gravity (<1.010) may not contain payable representative levels of hCG. If is still suspected, a serum test or repeat urine test using a first morning urine specimen should be considered. OhioHealthHCG ( test) Ql (U)NegativeNegativeOhioHealthSCAN OTHER ORDERS on 83-74-5797Nlxckkn by an unspecified provider. OhioHealthType and Screenon 34-57-1035TCU and Rh group Nom (Bld)O Positive OhioMercy Health [facility] HospitalBlood group antibody screen QlNegativeOhioHealthSpecimen Expires 09/29/2020 23:59 ESTOhioHealthCBC AUTOon 10-49-7985Brmwgjzhsjx distribution width Auto Ratio (RBC)12.2 %Sstgmi49.5-14.5SSusan B. Allen Memorial HospitalComment on above:Order Comment: Guadalupe: MAINPerformed By: #### LCBC ####[facility] Vuav[address]vjhr[address] [place], [place] [address]Yfxiauoxbw Auto Volume Fraction (Bld)43.1 %Uemxtr22.0-48.0[facility] HospitalComment on above: Order Comment: Guadalupe: MAINPerformed By: #### LCBC ####[facility] Zr[address]apqwy[address] [place], [place] [address]Vrdfirotrz mass conc (Bld)14.2 g/dLNormal 12.0-15.0[facility] Memorial HospitalComment on above:Order Comment: Guadalupe: MAIN Performed By: #### LCBC ####[facility] Sjhbqaufif[address] [place], [place] [address]LFO Auto Entitic mass (RBC)29.0 jiSncguu11.4-34.6[facility] Comment on above:Order Comment: Guadalupe: MAINPerformed By: #### LCBC ####[address] [address]MEKK Auto mass conc (RBC)32.9 g/gOQsomba44.0-36.0[facility] HospitalComsturgis hospital on above:Order Comment: Guadalupe: MAINPerformed By: #### LCBC ####[address] [address]JWE Auto Entitic volume (RBC)88.1 iQTdgfer31.0-98.0[facility] HospitalComsturgis hospital on above:Order Comment: Guadalupe: MAINPerformed By: #### LCBC ####[address] [address]Sdsogchf mean volume Auto Entitic volume (Bld)10.0 fLNormal8.4-11.9[facility] HospitalComsturgis hospital on above:Order Comment: Guadalupe: MAINPerformed By: #### LCBC ####[address] [address]Cztfsammd Auto #/vol (Bld)183 10*3/rADcnpiz454-260HbrjzHot Springs Memorial HospitalComsturgis hospital on above:Order Comment: Guadalupe: MAINPerformed By: #### LCBC ####[address] [address]TTP Auto #/vol (Bld)4.89 10*6/uLNormal3.5-5.5SSusan B. Allen Memorial HospitalComsturgis hospital on above:Order Comment: Guadalupe: MAINPerformed By: #### LCBC ####[address] [address]QDL Auto #/vol (Bld)5.9 10*3/uLNormal3.9-11.0[facility] HospitalComsturgis hospital on above: Order Comment: Guadalupe: MAINPerformed By: #### LCBC ####[address] [address]XUL BETA QUANTITATIVEon 23-30-5875GCZR< 2 Normal<5SSusan B. Allen Memorial HospitalComsturgis hospital on above:Order Comment: Guadalupe: MAIN Result Comment: Reference Range <4 mIU/mL NEGATIVE 4-25 mIU/mL BORDERLINE >25 mIU/mL POSITIVEComment:Results of this test should always be interpreted inconjunction with the patient's medical history, clinicalpresentation and other findings.Low levels of HCG may beseen in very early (gestationPerformed By: #### LHCGQ ####[facility] Zr[address]bnl[address] [place], [place] [address]History and Physical Virgilio 54-83-3146Imzzrlr and Physical PATST. JOHN [facility]. [facility] Pt Name: MILADIS [id number] [facility] MR # [id number] [address] : [birth year]* * * * * * * * History and Physical PAT * * * * * * * *Historyof Present IllnessDate of Nbompfw58/15/18ource of InformationPatientChief Complaint/Present IllnesE ndometriosisHPIPatient has endometriosis [...] Known HomeMedicationsLast Action: Reviewed on 06/16/18 @ 0743 by [...] Confusion, Anxiety, Depression.Postop Anesthesia ProblemsNonePhysical ExamVital SignsTemp (C)36.4Cpzyf97Getseoyyxdhb91Bpwap Shenbwia186/79Pulse-Ox%98Height - Thxm8Wjitfp1.00Weight - Ta843Jg-Oj73.580AppearanceGeneral AppearanceWell Developed/Nourished, Alert, Oriented X 3, Cooperative.HEENTHEENTHead [...] today 06/16/18CBC and TANDS as ordered per [facility] todayReport Date 06/16/18Electronically Signed Esig Date Esig Ivon Ward APRN-EDUCATION SPECIALIST 06/16/18 0809Norm[facility] OPERATIVE REPORTon 83-64-7908HYRBJMBYK REPORTName: SEMAJ MILADIS: [id number]: Amanda Martinez M.D.DATE OF SURGERY: 06/16/2018ANESTHESIA: Gen eral endotracheal.1ST RECREATION SUPERVISOR:PREOP DIAGNOSIS: Pelvic pain.POSTOP DIAGNOSIS: Pelvic pain.OPERATION: Diagnostic [...] was removed. Thepatient tolerated the procedure. Taurus Parmar/[facility]/[id number]: 06/16/2018 12:32:38 E/S: Amanda Martinez MD [facility] MILADIS [id number] [place] [address] [id number]: Amanda Martinez MDOPERATIVE KZOIGN74/19/18 1408Electronically Signed [facility],[id number] [place] [address] [id number]: Amanda Martinez MDOPERATIVE REPORTNormSageWest Healthcare - RivertonPost Anesthesia Evaluationon 46-29-0935Yaqi Anesthesia EvaluationSt [address] [id number], [place] [address] : 93POST ANESTHESIA EVALUATION NOTEService Date: 06/16/18 1443Post Anesthesia Eval NoteProcedure Date06/16/18Post Anesthesia EvalYES: VS in Normal Range, Respiratory Stable, Airway Patent,Cardiovascular Stable,Hydration Status Stable, Mental Status Recovered, Pt Participate in Eval, Pain Controlled,NANDV Controlled.Long Acting Regional AnesthesiaNoAnesthestic ComplicationsNoReport Date 06/16/18Electronically Signed Esig Date Esig Marysol Martins MD 06/16/18 1444NoSher[facility] Hospital - SheridanTYPE AND SCREENon 91-65-4415BYX and Rh group Nom (Bld)O POSITIVENoSheridan Memorial Hospital - SheridanComment on above:Order Comment: Guadalupe: [facility] patient taking DUSTY?Has patient had a transplant? Performed By: #### BTS ####[facility] Kxmiqzesdo[address] [place] [address] Vital Signs Date TimeVital SignValuePerforming TgxnuossuJvszbqrc09-36-2112 08:42-0400Body osgqeb15.2 kgCorey Kelly DO Work Phone: [facility] CenterYxkdcsziio42-71-8065 08:42-0400Diastolic blood rkolqbaa39 mm[Hg]Ahsan Kelly DO Work Phone: [facility] CenterKbwinxiwxt39-97-8988 08:42-0400Systolic blood mm[Hg]Ahsan Kelly DO Work Phone: [facility] CenterRjhkuskaah43-43-0458 12:54-0400Diastolic blood kfbmyujf77 mm[Hg]Thania Kaple DO Work Phone: 1([phone] [place], [place] 9936110-09-2025 12:54-0400 Heart rate87 /minScott Kaple DO Work Phone: [phone] [place], [place] 9936110-09-2025 12:54-0400 Respiratory rate20 /minScott Kaple DO Work Phone: [phone] [place], [place] 9936110-09-2025 12:54-0400 SaO2% (BldA) [Mass fraction]100 %Thania Kaple DO Work Phone: [phone] [place], [place] 9936110-09-2025 12:54-0400 Systolic blood zfhxifdg470 mm[Hg]Thania Kaple DO Work Phone: [phone] [place], [place] 9936110-09-2025 10:16-0400 Body otvmhmylnyy69.6 [degF]Thania Kaple DO Work Phone: [phone] [place], [place] 9936110-09-2025 07:59-0400 Body obegsx244.02 cmScott Kaple DO Work Phone: [phone] [place], [place] 9936110-09-2025 07:59-0400 Body obarne57.7 kgScott Kaple DO Work Phone: [phone] [place], [place] 9936105-21-2025 10:51-0400 Blood Pressure LocationEnohcgilles OlsonTena [phone]-VacbgOhio [facility]05-21-2025 10:51-0400Diastolic blood ulnhrlnv81 mm[Hg]Dia Madsen [phone]-OltqhOhio Valley Surgical Hospital05-21-2025 10:51-0400Heart rate90 /Michael Madsen [phone]-QylxwOhio Valley Surgical Hospital05-21-2025 10:51-0400Respiratory rate16 /Michael Madsen [phone]-VbuvbOhio Valley Surgical Hospital05-21-2025 10:51-3226SxS2% (BldA) [Mass fraction]98 %[facility] [phone]-Wmwfi[address] [place], [place] 6335705-21-2025 10:51-0400Systolic blood oqbfipht473 mm[Hg][facility] [phone]-Anlyi[address] [place], [place] 6335705-14-2025 16:11-0400Hourly RoundJoe Santa [address] [place], [place] [address]Comment on above:Result Comment: DR. ZAHEER HUYNH POEFY57-86-4971 16:00-0400Diastolic blood vjyxwhkk04 mm[Hg]Louis Santa [address] [place], [place] 0546505-14-2025 16:00-0400Heart rate84 /Dorcas Santa [address] [place], [place] 0546505-14-2025 16:00-0400Mean blood ktztgcce36 mm[Hg]Louis Santa [address] [place], [place] 0546505-14-2025 16:00-0400 Respiratory rate16 /Dorcas Santa [address] [place], [place] 0546505-14-2025 16:00-0400 Systolic blood fkkxfdik042 mm[Hg]Louis Santa [address] [place], [place] 0546505-14-2025 15:03-0400 Hourly RoundJoe Santa [address] [place], [place] 0546505-14-2025 15:00-0709MgX7% (BldA) [Mass fraction]99 %Louis Santa [address]05-14-2025 15:00-0400 Diastolic blood mtpopjak02 mm[Hg]Louis Santa [address]05-14-2025 15:00-0400Heart rate78 /minLouis Santa [address] [place], [place] 7037705-14-2025 15:00-0400Mean blood sdqrrsok26 mm[Hg]Louis Santa [address]05-14-2025 15:00-0400 Systolic blood rqehllzv133 mm[Hg]Louis Santa [address] [place], [place] 7037705-14-2025 14:08-0400 Hourly RoundingLouis Santa [address] [place], [place] 7037705-14-2025 14:00-0400Heart rate83 /minLouis Santa [address] [place], [place] 7037705-14-2025 14:00-0202OuB9% (BldA) [Mass fraction]100 %Louis Santa [address]05-14-2025 14:00-0400 Diastolic blood spldwyxu41 mm[Hg]Louis Santa [address] [place], [place] 7037705-14-2025 14:00-0400Mean blood fudzeqat71 mm[Hg]Louis Santa [address]05-14-2025 14:00-0400 Systolic blood ywsekega214 mm[Hg]Louis Santa [address] [place], [place] 7037705-14-2025 12:14-0400Body onzelkiymsr82.42 [degF]Louis Santa [address] [place], [place] 7037705-14-2025 12:14-0400Heart rate95 /minLouis Santa [facility]02-27-2025 12:06-0500Body ndlnax952 cmSlauren Ortega MD Work Phone: [phone]fxbdu79-63-8271 12:06-0500Body mass index (BMI) [Ratio]28.17 kg/l3YjsagqyegjDarlin Ortega MD Work Phone: [phone]tkkan48-09-7391 12:06-0500Body ypomgi63.12 kg Darlin Ortega MD Work Phone: [phone]flmck81-23-1240 12:06-0500Diastolic blood rugnwtxq80 mm[Hg]Darlin Ortega MD Work Phone: [phone]arcge76-42-6061 12:06-0500Heart rate89 /min Darlin Ortega MD Work Phone: [phone]boyfb83-03-9898 12:06-0500Systolic blood pressure 100 mm[Hg]Darlin Ortega MD Work Phone: [phone]zaoar62-60-9507 12:02-0500Body farvoo652 cmDavonte Ji EDUCATION SPECIALIST Work Phone: 1(231) [phone]gkjez97-56-3991 12:02-0500Body mass index (BMI) [Ratio]27.88 kg/t4BrggsDavonte Ji EDUCATION SPECIALIST Work Phone: 1(158) [phone]ginlr13-94-6879 12:02-0500Body igwyfiunzat47.2 [degF]Davonte Ji CNP Work Phone: 1(311) [phone]nUirmxy23-64-6310 12:02-0500Body .4 kgDavonte Ji EDUCATION SPECIALIST Work Phone: 1(128) [phone]prxss30-95-9673 12:02-0500Diastolic blood tvpustkz12 mm[Hg]Davonte Ji EDUCATION SPECIALIST Work Phone: 1(470) [phone]koknl94-06-6247 12:02-0500Heart rate90 /minJubonnie Ji [facility] Work Phone: 1(937) [phone]znzsw29-65-9070 12:02-0500Respiratory rate14 /min Davonte Ji [facility] Work Phone: 1(106) [phone]axsii16-69-9705 12:02-6316ViV1% (BldA) [Mass fraction]99 %Davonte Ji [facility] Work Phone: 1(943) [phone]eqpxz81-12-2249 12:02-0500Systolic blood pressure 111 mm[Hg]Davonte Ji EDUCATION SPECIALIST Work Phone: 1(522) [phone]jqcuf11-11-8194 11:15-0500Body rlcuki012 cmAjosue Gotti [facility] Work Phone: [phone]oqhdm25-37-3681 11:15-0500Body mass index (BMI) [Ratio]27.81 kg/m2Su Gotti [facility] Work Phone: [phone]ijami63-66-6041 11:15-0500Body ojzhed15.22 kgSu Gotti [facility] Work Phone: [phone]qczxm05-25-6619 11:15-0500Diastolic blood mhyvecgw25 mm[Hg]Su Gotti [facility] Work Phone: [phone] 11:15-0500Systolic blood pressure 114 mm[Hg]Su Gotti [facility] Work Phone: [phone] 21:00-0500Diastolic blood kujxjqja11 mm[Hg][facility]12-14-2024 21:00-0500Heart rate73 /minEphraim Botello [facility]12-14-2024 21:00-0500Mean blood aejjrxpg744 mm[Hg]Ephraim Botello [address] [place], [place] 7037712-14-2024 21:00-0500 Systolic blood mm[Hg]Ephraim Rosmery [address] [place], [place] 7037712-14-2024 20:30-0500 Diastolic blood ndpejjum23 mm[Hg]Ephraim Rosmery [address] [place], [place] 7037712-14-2024 20:30-0500Heart rate66 /minNoah Rosmery [address] [place], [place] 7037712-14-2024 20:30-0500Mean blood mm[Hg]Ephraim Rosmery [address] [place], [place] 7037712-14-2024 20:30-0500 Respiratory rate16 /minNoah Rosmery [address] [place], [place] 7037712-14-2024 20:30-3362EpY4% (BldA) [Mass fraction]96 %Ephraim Rosmery [address] [place], [place] 7037712-14-2024 20:30-0500 Systolic blood mm[Hg]Ephraim Rosmery [address] [place], [place] 7037712-14-2024 20:00-5528CjX8% (BldA) [Mass fraction]95 %Ephraim Rosmery [address] [place], [place] 7037712-14-2024 19:06-0500Body bffhwhcogzu59.06 [degF]Ephraim Rosmery [address] [place], [place] 7037712-14-2024 19:06-0500 Diastolic blood yvbnilyz06 mm[Hg]Ephraim Rosmery [address] [place], [place] 7037712-14-2024 19:06-0500Heart rate75 /minNoah Rosmery [address] [place], [place] 7037712-14-2024 19:06-0500 Systolic blood tmypzxex370 mm[Hg]E[facility]raim Rosmery [facility]09-16-2024 18:24-0400Blood Pressure Logan Strickland [phone]-BujhcOhio [facility] [id number] 18:24-0400Body osvcdmgsige06.24 [degF]Jovon Strickland 065-4949Lldnda-FsbypOhio [facility] Surgical Hospital [facility] Wead62-26-6255 18:24-0400Diastolic blood mdoondps91 mm[Hg]Jovon Strickland 622-7562Itnerd-JhvodOhio Valley Surgical Hospital [facility]ient Vgid93-32-4325 18:24-0400Heart rate88 /Cornelio Strickland 132-6036Qcxiee-QytrbOhio Valley Surgical Hospital [facility] Zshs54-83-3819 18:24-1917UiT4% (BldA) [Mass fraction]97 %Jovon Strickland 215-5194Udyzpo-KafwwOhio Valley Surgical Hospital [facility]ient Llik80-56-3181 18:24-0400Systolic blood scomoyjc199 mm[Hg]Jovon Strickland 120-0338Zdxsek-XnufkOhio Valley Surgical Hospital [facility] Iypn43-60-4384 21:58-0400Diastolic blood mm[Hg]Louis Santa [facility]03-30-2024 21:58-0400Heart rate91 /Dorcas Santa [facility]03-30-2024 21:58-0400Mean blood mm[Hg]Louis Santa [facility]03-30-2024 21:58-0400 Respiratory rate18 /Dorcas Santa [facility]03-30-2024 21:58-4593DoY3% (BldA) [Mass fraction]98 %Louis Santa [address] [place], [place] 0546503-30-2024 21:58-0400 Systolic blood gwxhcbux448 mm[Hg]Louis Santa [address] [place], [place] 0546503-30-2024 20:00-0400 Diastolic blood spctdoyt01 mm[Hg]Louis Santa [address] [place], [place] 7037703-30-2024 20:00-0400Mean blood ouopddqg07 mm[Hg]Louis Santa [address] [place], [place] 7037703-30-2024 20:00-0400 Respiratory rate16 /Dorcas Santa [address] [place], [place] 7037703-30-2024 19:30-0400 Diastolic blood cyaujuro34 mm[Hg]Louis Santa [address] [place], [place] 7037703-30-2024 19:30-0400Heart rate84 /Dorcas Santa [address] [place], [place] 7037703-30-2024 19:30-0400Mean blood gfsixjzk08 mm[Hg]Louis Santa [address] [place], [place] 7037703-30-2024 19:30-0400 Respiratory rate17 /Dorcas Santa [address] [place], [place] 7037703-30-2024 19:30-8348BrP3% (BldA) [Mass fraction]99 %Louis Santa [address] [place], [place] 0546503-30-2024 19:30-0400 Systolic blood crzuarki913 mm[Hg]Louis Santa [address] [place], [place] 7037703-30-2024 18:32-0400Body .24 [degF]Louis Santa [address] [place], [place] 0546503-30-2024 18:32-0400Heart rate92 /minLouis Santa [address] [place], [place] 0546503-06-2024 11:08-0500Body kkxewteurpi36.24 [degF]Son Reyes [address]03-06-2024 11:08-0500 Diastolic blood vvzchyyx56 mm[Hg]Son Reyes [address]03-06-2024 11:08-0500Heart rate81 /minTim Eric [address] [place], [place] 0546503-06-2024 11:08-0500 Respiratory rate18 /minTim Eric [address] [place], [place] 7037703-06-2024 11:08-2012SzN3% (BldA) [Mass fraction]100 %Son Reyes [address] [place], [place] 7037703-06-2024 11:08-0500 Systolic blood mm[Hg]Son Reyes [address] [place], [place] 7037712-14-2023 13:00-0500 Diastolic blood wqepxlry30 mm[Hg]Son Reyes [address] [place], [place] 7037712-14-2023 13:00-0500Heart rate89 /minTim Eric [address] [place], [place] 0546512-14-2023 13:00-0500 Respiratory rate16 /minTim Eric [address] [place], [place] 0546512-14-2023 13:00-6537CuR4% (BldA) [Mass fraction]99 %Son Reyes [address] [place], [place] 7037712-14-2023 13:00-0500 Systolic blood fsdkivet711 mm[Hg]Son Reyes [address] [place], [place] 7037712-14-2023 12:00-0500 Diastolic blood gjaryojc02 mm[Hg]Son Reyes [address] [place], [place] 0546512-14-2023 12:00-0500Heart rate88 /minTim Eric [address] [place], [place] 0546512-14-2023 12:00-7834TaQ1% (BldA) [Mass fraction]98 %Son Reyes [address]12-14-2023 12:00-0500 Systolic blood putrhiom934 mm[Hg]Son Reyes [address] [place], [place] 7037712-14-2023 10:00-0500 Diastolic blood yszwzwfz15 mm[Hg]Son Reyes [address]12-14-2023 10:00-0500Heart rate95 /minTim Eric [address] [place], [place] 0546512-14-2023 10:00-0500 Respiratory rate18 /minTim Eric [address] [place], [place] 0546512-14-2023 10:00-0500 Systolic blood uiahetpj198 mm[Hg]Son Reyes [address] [place], [place] 7037712-14-2023 08:31-0500Body .5 [degF]Son Reyes [address] [place], [place] 7037703-10-2023 10:48-0500Body neioqz848 cmCatherine Karit EDUCATION SPECIALIST Work Phone: [phone]vfmbr71-00-8205 10:48-0500Body mass index (BMI) [Ratio]24.98 kg/v9Oigfukqou Seyfert EDUCATION SPECIALIST Work Phone: [phone]ccfmy23-94-6031 10:48-0500Body .96 kg Marlys Gillesfert EDUCATION SPECIALIST Work Phone: [phone] 10:48-0500Diastolic blood mazgyuqq55 mm[Hg]Marlys Seyfert EDUCATION SPECIALIST Work Phone: [phone]exiaz07-93-7539 10:48-0500Systolic blood pressure 116 mm[Hg]Marlys Seyfert EDUCATION SPECIALIST Work Phone: [phone]qkydi41-58-9030 18:13-0500Diastolic blood ezwkqogs23 mm[Hg]Phoenix Castro [address] [place], [place] 0546503-03-2023 18:13-0500Heart rate65 /Serafin Castro [address] [place], [place] 0546503-03-2023 18:13-0500Mean blood rqojjpra82 mm[Hg]Phoenix Castro [address] [place], [place] 0546503-03-2023 18:13-0500 Respiratory rate20 /minPhoenix Castro [address] [place], [place] 0546503-03-2023 18:13-9750WsF2% (BldA) [Mass fraction]99 %Phoenix Castro [address] [place], [place] 0546503-03-2023 18:13-0500 Systolic blood vuenvczm225 mm[Hg]Phoenix Castro [address] [place], [place] 0546503-03-2023 17:00-0500 Diastolic blood mm[Hg]Phoenix Castro [address] [place], [place] 0546[address]-03-2023 17:00-0500Heart rate75 /Serafin Castro [facility]03-03-2023 17:00-0500Mean blood dznlgacm958 mm[Hg]Phoenix Castro [address] [place], [place] 0546503-03-2023 17:00-0500 Respiratory rate18 /Serafin Castro [address] [place], [place] 0546503-03-2023 17:00-8965YcF3% (BldA) [Mass fraction]96 %Phoenix Castro [address] [place], [place] 0546503-03-2023 17:00-0500 Systolic blood azzaimhx432 mm[Hg]Phoenix Castro [facility]03-03-2023 16:00-0500 Diastolic blood arhnbqui70 mm[Hg]Phoenix Castro [address] [place], [place] 0546503-03-2023 16:00-0500Heart rate88 /Serafin Castro [address] [place], [place] 0546503-03-2023 16:00-0500Mean blood wptiekxy69 mm[Hg]Phoenix Castro [address] [place], [place] 0546503-03-2023 16:00-0500 Respiratory rate16 /Serafin Castro [address] [place], [place] 0546503-03-2023 16:00-0500 Systolic blood rzuwtxmj690 mm[Hg]Phoenix Castro [address] [place], [place] 0546503-03-2023 15:00-0500Heart rate82 /Serafin Castro [address] [place], [place] 7484203-03-2023 14:00-0500Body kbpstpzytml62.24 [degF]Phoenix Castro [address] [place], [place] 7484203-03-2023 14:00-0500Heart rate89 /Serafin Castro [address] [place], [place] 0546501-24-2023 13:56-0500Body tvyedk389 cmLauren Kopicky DO Work Phone: [facility]01-24-2023 13:56-0500Body .86 kgLauren Kopicky DO Work Phone: [facility] [place]01-13-2023 08:03-0500Blood Pressure Trini Gonzalez [phone]-QpfvpOhio [facility] Surgical Hospital [facility] [place] 08-14-2022 08:03-0500Diastolic blood oudedwwm67 mm[Hg]Phoenix Gonzalez [phone]-OmkicOhio Valley Surgical Hospital [facility] [place] 08-14-2022 08:03-0500Heart rate66 /minPhoenix Lisa 346-2023Rdgkoy-OdobcOhio Valley Surgical Hospital [facility] [place] 08-14-2022 08:03-9335JjP6% (BldA) [Mass fraction]99 %Phoenix Gonzalez [phone]-HxhcyOhio Valley Surgical Hospital [facility] [place] 08-14-2022 08:03-0500Systolic blood qmpidbfq896 mm[Hg]Phoenix Gonzalez 281-6037Siwghi-YpzehSelect [facility] [place] 08-05-2022 16:13-0500Blood Pressure LocationKatsophie Vizcarraell 383-1602Xjrxbn-Irfvp[address] [place], [place] 0515401-04-2023 16:13-0500Body ciklpatoebw56.88 [degF]Maryann Rashid 004-7478Lfpkny-Raehw[address] [place], [place] 0515401-04-2023 16:13-0500Diastolic blood obepghsk64 mm[Hg]Maryann Rashid 480-4416Drjxhi-VsgkfOhio Valley Surgical Hospital01-04-2023 16:13-0500Heart rate59 /minMaryann Rashid 462-9250Nmblba-HkuafOhio Valley Surgical Hospital01-04-2023 16:13-1172XbG4% (BldA) [Mass fraction]96 %Maryann Rashid 618-4676Arozjg-UhuzgOhio Valley Surgical Hospital01-04-2023 16:13-0500Systolic blood ieymjdak542 mm[Hg]Maryann Rashid 713-5543Jeminw-Jstcw[address] [place], [place] 0515412-01-2022 12:54-0500Body xbyysb508 Papa Suh PA-C Work Phone: [phone]nhxuy07-96-0747 12:54-0500Body mass index (BMI) [Ratio]24.98 kg/z5Ojhqv Merzbacher PA-C Work Phone: [phone] 12:54-0500Body dnbghu26.96 kg Joanna Suh PA-C Work Phone: [phone]zovbh04-20-4216 12:54-0500Diastolic blood iebbuayc71 mm[Hg]Joanna Suh PA-C Work Phone: [phone] 12:54-0500Heart rate91 /minJoanna Suh PA-C Work Phone: [phone]cizxx66-73-8003 12:54-0500Systolic blood pressure 114 mm[Hg]Joanna Suh PA-C Work Phone: [phone]kmnbu42-40-1236 12:04-0500Body knpeyc972 Babsfilipe Peterson [facility] Work Phone: [phone]wmahy48-30-8340 12:04-0500Body mass index (BMI) [Ratio]27.1 kg/z9Ueutncarolann Peterson [facility] Work Phone: [phone]xuujx07-06-2358 12:04-0500Body jutatj50.4 kgTiffaniecarolann Peterson [facility] Work Phone: [phone]biydo27-98-9660 12:04-0500Diastolic blood mm[Hg]Connie Peterson [facility] Work Phone: [phone]qzhny37-23-8305 12:04-0500Systolic blood pressure 117 mm[Hg]Connie Peterson EDUCATION SPECIALIST Work Phone: [phone]txzwp67-63-3270 10:37-0400Body dtithx543 Papa Suh PA-C Work Phone: [phone]ougel24-23-4065 10:37-0400Body mass index (BMI) [Ratio]27.21 kg/l4OkwxzJoanna Leer PA-C Work Phone: [phone]ztmhj76-02-8647 10:37-0400Body kyqqdc36.67 kg Joanna Medeirosasimolive PA-C Work Phone: [phone]ccnwv38-00-9061 10:37-0400Diastolic blood rdktcynb96 mm[Hg]Joanna Medeirosasimolive PA-C Work Phone: [phone]xnqis89-97-8922 10:37-0400Heart rate98 /minJoanna Medeirosiris PA-C Work Phone: [phone]ackif74-05-4257 10:37-0400Systolic blood pressure 113 mm[Hg]Joanna Suh PA-C Work Phone: [phone]oopyc86-88-5906 11:09-0500BMI (Body Mass Index) 26.43 kg/l2Zganmhxozu HeobkyctokhtQlxdDfploq57-35-2048 11:09-0500Body Yjeckgkukwj94.01 [degF][facility] FcbpesjlkxtiMregYfdkpo57-26-2024 11:09-0500 Body wbpyqm39.85 kgSaint Joseph Bereacurtis GpbiswsjcxigLgjhPkawuc60-65-1117 11:09-0500BP Fpfpdvblp37 mm[Hg][facility] RwetjfgrkilfNumbDfmrlq32-86-0010 11:09-0500BP Telhewvq571 mm[Hg][facility] Hospitalvk[facility]i ZpawlyqqtnpaQhioVuijyf01-25-5401 11:09-0500Height 162.6 cmSmetrohealth clevel[facility] heights medical centervioletmini UhxuorwecmrtOczcHxcwvp89-92-3047 19:08-0500Body Temperature 98.91 [degF]Shivkamini FeumzwzubvsqRixdSkfxkw81-86-6762 19:08-0500BP Lzclsldbp57 mm[Hg]Shivkamini QwxkxjywwaqkKohaYmdfaq75-37-1433 19:08-0500BP Cebgjytz34 mm[Hg]Shivkamini YtgumatcfppkBjzrYvthav82-66-5477 19:08-0500Pulse (Heart Rate) 103 /minShivvioletmini DoxclectraudAzxmQllbwt10-08-9119 19:08-0500Pulse Hrfsctto17 % Shimitchmini KvdtdtencwweGezbKforbc59-10-0601 19:08-0500Respiratory Rate15 /min Shivkamini MuppiiiobsibWcjuObjnzu75-27-1113 09:23-0500BMI (Body Mass Index)26.53 kg/c5Vuuxntrnfb IuanidnttcwyWhmkKrymjp32-42-7696 09:23-0500Body .1 kg Shivkamini LjqleamujwhuTmagFwyvyb17-78-9932 09:23-6558Ahofmg793.6 cmShivkamini NdmfhbvqeyfmGnyqVnkfvh93-31-5648 14:52-0500BMI (Body Mass Index)27.07 kg/m2 Shivkamini FawxnzpfbyelRognBihsnm96-68-8099 14:52-0500Body Aqjnhkmstjh58.7 [degF]Shivkamini UqnneqedexyaWewvCjzzwn26-37-1585 14:52-0500Body hpytny78.31 kg Shivkamini OmouhyidkcffRddpRzohit73-12-7769 14:52-0500BP Fobdwveso46 mm[Hg] Shivkamini NiccrkllzvztObgxZqmhqo76-23-8401 14:52-0500BP Yattpuzs714 mm[Hg] Shivkamini WseazqzsxetrSlhgAepolp84-15-1290 14:52-4470Fhczzk964 cmShivkamini SomasundaramOhiNHealth Encounters Encounter DateEncounter TypeCare ProviderFacilityStart: 06-13-2025 End: 85-16-7168Xrvxoanck Result EncounterCorey Kelly DO Work Phone: NOKG External Department UnsolicitedStart: 06-13-2025 End: 73-75-6148Hebnfcifm Result EncounterCorey Kelly DO Work Phone: NOZI External Department UnsolicitedStart: 05-21-2025 End: 45-71-4648mpifnhoeuuSvufq M. SuzanneeFacility:EU [facility] Hospitaltart: 05-21-2025 End: 18-02-2414Glbbkiz encounter procedureSkyetere Park [facility] Start: 05-14-2025 End: 79-49-2730Wwkckb flowsheetCorey Kelly DO Work Phone: noms [place] OBGYNStart: 05-14-2025 End: 19-02-4344Rfdgbr flowsheetCorey Kelly DO Work Phone: NOAW [place] OBGYNStart: 05-14-2025 End: 18-02-2271inpxwiockpMlbou R FAZIOFacility:FTMCStart: 05-14-2025 End: 79-73-8287Isonyj outpatient visit 15 minutesCorey Kelly DO Work Phone: NOFE [place] OBGYNComment on above:History of miscarriage; Threatened miscarriage ([facility]); Missed menses; Positive urine test ([facility])Start: 05-14-2025 End: 87-89-5128wzeuwasodkJDEGR FAZIONot AvailableStart: 05-12-2025 End: 33-46-6084oqkershdjjCYAYPYHWY BROWNFacility:FTMCStart: 05-12-2025 End: 91-65-6213Fnxkdcu encounter procedureJurgen Morfin DO-Lab Main [place] Work Phone: Start: 05-12-2025 End: 73-49-0358iymsmxkttjJmtgl A Kaple DO Work Phone: [facility] Work Phone: Start: 05-10-2025 End: 30-43-0614Xemahgnxw department patient visitScott Kaple DO Work Phone: [phone]-Kmykdjzvo Room Work Phone: Start: 04-03-2025 End: 28-50-8585udcknlnlthSeylq M. LueFacility:FTMCStart: 03-26-2025 End: 49-96-8505ffhqckldadHaslp Aileen. LueFacility:FTMCStart: 72-59-2008ekrmgmxfpg Miladis TannaFacility:EU [place]Start: 02-26-2025 End: 64-99-1687ngfffmzmpiLokgc M. LueFacility:FTMCStart: 02-08-2025 End: 74-74-6922edxsqewetnVyqiq M. LueFacility:EU [place]Start: 02-08-2025 End: 41-86-7364Graliym encounter procedureSkyetere Park [facility] [place] Start: 01-05-2025 End: 85-22-6832terpuzjdoqWflwms TannaFacility:EU [place]Start: 01-05-2025 End: 73-38-8127Ywyasnz encounter procedureLakaren [place] [facility] [place] Start: 01-03-2025 End: 01-05-0419Qcvranmhw department patient Vikas Brinkcility:[facility] Start: 01-01-2025 End: 51-72-8313Czv-admission assessmentLauren Shawanda [facility] Start: 12-29-2024 End: 99-53-6079tmejkyonywDezdsl TannaFacility:FTMCStart: 12-29-2024 End: 84-73-1437Eym Drop offLauren Shawanda [facility] Start: 12-29-2024 End: 29-35-1464ixyojonoxqOpknusLinda MadsenFacility:EU [place]Start: 12-29-2024 End: 29-01-5384Baipqmv encounter procedureMiladis [place] [facility] [place] Start: 12-20-2024 End: 97-92-1029Mqa Drop offDia Madsen [facility] Start: 12-20-2024 End: 62-18-0404kbkjylcisdSkbiee E. NorcrossFacility:FTMCStart: 12-20-2024 End: 02-73-6258Gzenrpa encounter Deangelo Madsen [phone]-XpfzfOhio [facility] Surgical Hospital [facility] Start: 12-13-2024 End: 75-03-9260Fjcszwjzh department patient visitOsmanchelsea Santa [facility] Start: 10-06-2024 End: 59-71-0851LacygcMyXpfeqm [facility] Gy[facility] Comment on above:Acute cystitis without hematuria (Primary Dx)Start: 10-02-2024 End: 04-45-5731SzricoWojciech Ortega MD Work Phone: o[facility] GynecologyComment on above: Acute cystitis without hematuria (Primary Dx)Start: 09-28-2024 End: 68-81-9006Fvdopc follow up visit related to original Helen Ortega MD Work Phone: o[facility] GynecologyComment on above: Post-operative state (Primary Dx); Endometriosis determined by laparoscopy; Interstitial cystitisStart: 09-28-2024 End: 76-49-5418kcgbhnbgdlCYOGI [facility] AmbulatoryStart: 09-12-2024 End: 31-35-5410yibjiudwjwGXILNSMNXD [facility] CENTERMARIVan [facility] Start: 09-01-2024 End: 67-85-3432Cwycgx outpatient new 30 Leyda Ortega MD Work Phone: [facility] Pread[facility] Comment on above:Interstitial cystitis (Primary Dx); Pre-op examination; Preoperative cardiovascular examination; PONV (postoperative nausea and vomiting); Anemia, unspecified typeStart: 09-01-2024 End: 37-91-0399Zqbjxio encounter statusDarlin Ortega MD Work Phone: [facility]ioHealthStart: 09-01-2024 End: 98-25-8844Mzljbtitikiqp examination Yudith Ortega MD Work Phone: ohiWexner Medical CenterthStart: 09-01-2024 End: 97-86-1429Klremulwx for other preprocedural examinationJUJulio C MACIEMina JI [facility] HospitalStart: 09-01-2024 End: 29-76-2901Xfocijpdp for preprocedural cardiovascular examinationBONNIE MACIE [facility] HOSPITALAsimSt. Elizabeth Hospitaltart: 09-01-2024 End: 65-66-7240Ztsihayh SupportCitlalli [facility] GynecologyComment on above:Acute postoperative pain (Primary Dx); Pelvic pain in femaleStart: 08-17-2024 End: 45-29-9662Jgqs/qhp telephone evaluation 21- Linda Ortega MD Work Phone: o[facility] GynecologyComment on above: Endometriosis determined by laparoscopy; Pelvic congestion syndrome; Interstitial cystitis; Gilbert's syndrome; History of multiple miscarriagesEndometriosis determined by laparoscopy; Pelvic congestion syndrome; Interstitial cystitis; Gilbert's syndrome; History of multiple miscarriages; Pelvic pain in femaleStart: 08-17-2024 End: 20-11-8549fmeotacyrgTMIJNBOHKE [facility] CENTERSUBrown [facility] AmbulatoryStart: 08-14-2024 End: 89-70-2864EencyqWojciech Ortega MD Work Phone: o[facility] GynecologyComment on above: History of recurrent miscarriages (Primary Dx)Start: 54-31-3041jebnlxpyutWrfqlxb A. MouchliFacility:[facility] Hospitaltart: 07-19-2024 End: 03-19-3424Sivajk outpatient visit 15 [facility]Su Aileen Santodebbie LEYVA Work Phone: o[facility] GynecologyComment on above: Pelvic pain in female (Primary Dx); Abdominal pain, unspecified abdominal location; Bloating; Diarrhea, unspecified typeStart: 07-19-2024 End: 44-38-2388kabmdjngykHWYUHealthSouth [facility] AmbulatoryStart: 07-15-2024 End: 32-45-1613Wfdafowtm department patient visitDO Ephraim Botello Facility:FTMCStart: 04-18-2024 End: 98-32-3947eloygemmfbGtghr M. DempseyFacility:FTMCStart: 04-18-2024 End: 14-32-3445Gjz Drop Rodolfo Strickland [facility] Start: 04-17-2024 End: 07-67-7930pjlbavggucIyzud M. DempseyFacility:FTMCStart: 04-17-2024 End: 48-91-1180Srvqjfm encounter Cynthia Strickland [phone]-TngrgOhio Valley Surgical Hospital [facility] Start: 11-19-2023 End: 77-44-3343ckfjbtilueUrjwz R FAZIOFacility:FTMCStart: 11-19-2023 End: 68-09-6423Jpmsral encounter procedureCorey R KELLY [facility] Start: 11-15-2023 End: 31-09-3746kxezpkltdnQvmrc R FAZIOFacility:FTMCStart: 11-15-2023 End: 15-15-3132Kxoultm encounter procedureCorey R KELLY [facility] Start: 11-11-2023 End: 04-48-6170yovjdyhudmSpacv R FAZIOFacility:FTMCStart: 11-11-2023 End: 97-73-0418Kmhxwgr encounter procedureCorey R KELLY [facility] Start: 11-01-2023 End: 45-76-9833cspbzjgpcaFxczf R FAZIOFacility:FTMCStart: 11-01-2023 End: 76-59-6369Ymcqgxi encounter procedureCorey R KELLY [facility] Start: 10-30-2023 End: 51-70-3940Iccojycgn department patient Vikas Santa [facility] Start: 10-25-2023 End: 14-04-6459zhqaellvjsSscgf R FAZIOFacility:FTMCStart: 10-25-2023 End: 92-87-8222Pbklnzl encounter procedureCorey R KELLY [facility] Start: 10-22-2023 End: 05-56-3987Bcggxmlgz Result EncounterCorey Kelly DO Work Phone: noms External Department UnsolicitedStart: 10-22-2023 End: 87-56-8882Uyaslcwhr Result EncounterCorey Kelly DO Work Phone: noms External Department UnsolicitedStart: 10-22-2023 End: 87-21-3836jhqwkwfhxdDhdry R FAZIOFacility:FTMCStart: 10-22-2023 End: 17-53-0906Wadreyi encounter procedureCorey R KELLY [facility] Start: 10-06-2023 End: 75-78-0519Xbfndksyq department patient visitTim Eric [facility] Start: 09-25-2023 End: 52-74-8320qxojfhfnzzZyctt R FAZIOFacility:FTMCStart: 09-25-2023 End: 07-13-5375Vwsqrui encounter procedureCorey R KELLY [facility] Start: 09-23-2023 End: 64-94-1641krssglwytiFyine R FAZIOFacility:FTMCStart: 09-23-2023 End: 06-46-1175Eylixru encounter procedureCorey R KELLY [facility] Start: 07-23-2023 End: 20-90-8584Cuykqdfea Result EncounterCorey Kelly DO Work Phone: noms External Department UnsolicitedStart: 07-23-2023 End: 84-27-7354Rgbquzotc Result EncounterCorey Kelly DO Work Phone: noms External Department UnsolicitedStart: 07-22-2023 End: 26-60-6967Xwyjqgppd Result EncounterCorey Kelly DO Work Phone: noms External Department UnsolicitedStart: 07-22-2023 End: 02-18-5712Mudbcelkr Result EncounterCorey Kelly DO Work Phone: noms External Department UnsolicitedStart: 07-15-2023 End: 21-02-1117Sxzuqqikh department patient visitTim ThomasFacility:[facility]MCStart: 07-14-2023 End: 04-24-2376Ltizpylcq Result EncounterCorey Kelly DO Work Phone: noms External Department UnsolicitedStart: 07-14-2023 End: 28-80-9472Ayvttqulm Result EncounterCorey Kelly DO Work Phone: noms External Department UnsolicitedStart: 07-08-2023 End: 13-00-6646Yigdfisfv Result EncounterCorey Kelly DO Work Phone: noms External Department UnsolicitedStart: 07-08-2023 End: 56-09-5969Eyhypguyy Result EncounterCorey Kelly DO Work Phone: noms External Department UnsolicitedStart: 05-31-2023 [facility] GynecologyComment on above: Interstitial cystitisStart: 10-28-2022 End: 64-33-1809ektdjnrtycZVTMVK KOPICKYFacility:[facility] Hospitaltart: 10-28-2022 End: 10-96-3307Tutxqu outpatient visit 15 Ruby Butler DO Work Phone: General SurgeryComment on above:Breast pain, right (Primary Dx); Nipple discharge; Family history of breast cancerStart: 46-32-6098Agcvdqhvd encounterBella Barrera RNGeneral SurgeryComment on above:AppointmentStart: 10-09-2022 End: 45-66-5750Tiovtxs encounter procedureCatkatie West EDUCATION SPECIALIST Work Phone: [facility] GynecologyComment on above: Interstitial cystitis (Primary Dx)Start: 10-07-2022 End: 79-37-5164Bzrqnipaet hospital visit by physicianDiagnostic Mammo Main MammographyComment on above:Mass of upper outer quadrant of right breast [N63.11]Start: 10-07-2022 End: 41-55-5508izfweelcoaQTCVUG KOPICKYFacility:[facility]: 10-07-2022 End: 90-41-5669Yszaufntti hospital visit by physicianMri Main A10 (Large Bore/1.5t) Work Phone: MRI [id number] on above:Mass of upper outer quadrant of right breast [N63.11]Start: 10-02-2022 End: 98-03-5581Hwselyneg department patient visitIrambrenda Castro [facility] Start: 08-25-2022 End: 60-19-2683boayptlpcjWKUULD KOPICKYFacility:[facility] Hospital[facility]art: 08-25-2022 End: 86-28-8738Nizjck outpatient new 45 minutesLauren Emma DO Work Phone: General SurgeryComment on above:Mass of upper outer quadrant of right breast (Primary Dx); Nipple discharge; Family history of breast cancer; At high risk for breast cancer; MastalgiaStart: 08-14-2022 End: 14-81-8330Psthzmy encounter procedurePhoenix Gonzalez [phone]-YhvrmOhio [facility] [place] Start: 08-10-2022 End: 26-37-2941Wpbfrwa encounter procedureMaryann Rashid [facility] Start: 08-05-2022 End: 49-60-4877Wcsiukl encounter procedureMaryann Rashid [phone]-BgtwrOhio Valley Surgical Hospital [facility] Start: 07-02-2022 End: 80-17-8070Fwaeuf outpatient visit 10 Danilo Suh PA-C Work Phone: [facility] GynecologyComment on above: Myofascial muscle pain (Primary Dx); Pelvic pain in female; Interstitial cystitis; Encounter for other general counseling or advice on contraceptionStart: 06-18-2022 End: 20-91-3672Mxbbzhk encounter procedureSfilipe Mallorie Peterson EDUCATION SPECIALIST Work Phone: o[employer] [facility] GynecologyComment on above: Interstitial cystitis (Primary Dx); Dark yellow-colored urineStart: 67-83-4599Xrarim Susan West CNP Work Phone: o[employer] [facility] GynecologyComment on above: BV (bacterial vaginosis) (Primary Dx)Start: 04-02-2022 End: 11-95-5930Zyrqtxi encounter procedureLajesse Suh PA-C Work Phone: [facility] [facility] GynecologyStart: 04-02-2022 End: 58-65-7637Kyozneaw preventive med est patient 18-39 yrsLajesse Suh PA-C Work Phone: o[employer] [facility] GynecologyComment on above: Well woman exam (Primary Dx); Screening for malignant neoplasm of cervix; Vaginal discharge; Myofascial muscle pain; Pelvic pain in femaleStart: 08-20-2021 End: 66-14-8322Vcilsyf encounter Jg HARVE[facility] Start: 10-09-2020 End: 61-70-1936UxunlvPbydeso J [facility] GynecologyComment on above:Pelvic pain in female (Primary Dx)Start: 10-09-2020 End: 27-33-3153Navjsd follow up visit related to original pxShivcurtis Ortega Work Phone: o[facility] GynecologyComment on above: Post-operative state (Primary Dx); Chronic pelvic pain in female; Interstitial cystitisStart: 09-26-2020 End: 18-89-8014Acwztzy encounter [facility]iel [facility] 09-26[facility]2020 End: 93-06-4913Ezuywudbkb hospital visit by Wilbert Cohnaram Work Phone: [facility] [place] 430Comment on above:Ovarian cyst rupture; Chronic pelvic pain in female; Dysuria; Irritable bowel syndrome, unspecified typeStart: 09-25-2020 End: 56-43-9758Rdawhgar Whitney Sims [facility] GynecologyStart: 09-20-2020 End: 06-88-7267Mzxsgg OnlyDarlin Ortega Work Phone: o[facility]ician Group GynecologyComment on above: Ovarian cyst rupture (Primary Dx); Chronic pelvic pain in female; Dysuria; Irritable bowel syndrome, unspecified typeStart: 08-20-2020 End: 80-41-0123BnjhlrWjxjxdimcr Somasundaram Work Phone: o[facility] Physician [facility] GynecologyStart: 08-16-2020 End: 93-94-6688VuzwvyTmjxkur J [facility] GynecologyStart: 08-14-2020 End: 35-28-6444Ujgjon outpatient new 30 minutesJhongayatri Marbintiffaniebrianaileen Work Phone: o[facility] Physician [facility] GynecologyComment on above: Pelvic pain in female; Endometriosis; Ovarian cyst rupture; Pelvic congestionStart: 93-46-9700Viipmhh encounter procedureLake [facility] Facility[facility] Procedures DateProcedureProcedure DetailPerforming ClinicianStart: 39-44-6468SG OB TRANSVAGINALCorey Kelly DO Work Phone: Start: 98-70-6943Ejgbz cultureScott Kaple DO Work Phone: Start: 64-85-4820Xgqhesemiwlj obstetric ultrasonographyScott Kaple DO Work Phone: Start: 56-72-7549Nbtgyhcyxf ultrasound of gravid uterusScott Kaple DO Work Phone: Start: 68-47-8547Yhrezilkpbvqris of bladderKathy Lue Start: 34-30-6781Keanyor bacterial quanttative colony count Jonatan Ortega MD Work Phone: start: 28-38-2993Jgptaec bacterial quanttative colony count Jonatan Ortega MD Work Phone: start: 09-12-2024H/O: surgeryS/P robot-assisted surgical procedureSlauren Ortega MD Work Phone: Start: 66-07-2444Xncxu count complete automated Darlin Ortega MD Work Phone: start: 29-10-8029Zfidm typing serologic aboDarlin Ortega MD Work Phone: start: 27-71-9279XZ OB TRANSVAGINALCorey Kelly DO Work Phone: Start: 04-50-5040LY PELVISCorey Kelly DO Work Phone: Start: 04-25-4353JE OB TRANSVAGINALCorey Kelly DO Work Phone: Start: 02-53-1327QX OB TRANSVAGINALCorey Kelly DO Work Phone: Start: 11-07-5542YJ OB TRANSVAGINALCorey Kelly DO Work Phone: Start: 07-69-4153Hg breast uni real time with image limitedLauren Kopicky DO Work Phone: Start: 18-49-4812Mblxbcs breast tomosynthesis bilateralLauren Kopicky DO Work Phone: Start: 80-12-9712Wsy breast without&with contrast w/cad bilateralLauren Kopicky DO Work Phone: Start: 47-90-5839Ensigujeilq observation [Identifier] in Cervix by Ovidio Peterson CNP Work Phone: Start: 57-16-9664Yoq cyst/aberrant breast tissue open 1/> lesionCaroline SPETTEL Start: 46-40-1866HTKS OTHER ORDERSProvider Not In SystemStart: 68-74-9070Awfqo group typingProvidence Kodiak [facility] Work Phone: Start: 32-70-1605Ahxnlue [Mass/volume] in Blood [facility] Work Phone: Start: 32-95-8431Ncnrfgbmxtmntdwrwl ( test) [Presence] in UrineProvidence Kodiak Island [facility] Work Phone: start: 76-24-4140Vqtko type and Indirect antibody screen panel - BloodProvidence [facility]odiak [facility] Work Phone: start: 44-95-7880NjniijcksqfzaeivocwzttsstyThqbctug SPETTEL Start: 23-73-9893MwvacgjztqgEuooueac SPETTEL Comment on above:Dx with pelvic congestion syndrome Start: 36-95-6065Fvvajwzl screenRegina HillComment on above:Order Comment: Guadalupe: [facility] patient taking DUSTY?Has patient had a transplant?Performed By: #### BTS ####[facility] [address] [place], [place] [address]Iatgy: 52-24-0357YuhjwbsgilsXjxosaqh SPETTEL Start: 93-52-0369wmoxkc teeth removed d2Dugznzwc SPETTEL Breast lump (finding)Sumaya Xavier Plan of Treatment DateCare ActivityDetailAuthorStart: 85-08-3382Xhixixnya for malignant neoplasm of cervixOhioHealthStart: 38-19-5401Oikwnyv vaccinationTetanus: Every 10yrs [facility]HealthStart: 06-18-2025 End: 08-92-4567Xvayyojrwkxh / ancillary services hdkwgayjmx61/17/2025 8:30 AM EST Ancillary Procedure NOMDebbie FRASER [address] [place] [phone] GEETA [place] OBGYNStart: 05-28-2025 End: 65-07-9159Lnrnttc encounter ogufvbqxb19/27/2025 8:40 AM EDT Office Visit GEETA FRASER [address] [place] [phone] Ahsan Mendoza, DO [address] [place], [facility]11 NOMDebbie Avila OBGYNStart: 05-14-2025 End: 39-49-5389dKZ, quantitative, pregnancyhCG, quantitative, Lab Routine History of miscarriage Missed menses Positive urine test ([facility]) Expected: 05/14/2025 (Approximate), Expires: 05/14/2026[facility] Comment on above:Expected: 05/14/2025 (Approximate), Expires: 05/14/2026Start: 05-14-2025 End: 15-59-5012NC Pelvis transvaginalUS OB transvaginal Imaging Routine History of miscarriage Missed menses Positive urine test ([facility]) Expected: 05/14/2025, Expires: 08/14/2025[facility] Work Phone: comment on above:Expected: 05/14/2025, Expires: 08/14/2025Start: 05-14-2025 End: 65-67-0890Nsjwhad encounter wzcwgifaj13/13/2025 8:40 AM EDT Office Visit GEETA FRASER [address] [place] [phone] Ahsan Mendoza, DO [address] [place] [address] ArrivedGEETA Avila OBGYNComment on above:ArrivedStart: 72-67-8550Xwunaoks identified in Urine by CultureUrine [facility] Hospitaltart: 27-44-9587Wmzti [facility] Centertart: 60-64-6538Bnzqdkfrb for malignant neoplasm of cervixPap SmearOhioHealthStart: 40-28-0380qtmnhtgsqvPopvafqtsxSaxktkkg:Donna PCStart: 09-28-2024 End: 88-90-8096Ebilwqc encounter gtmtjsgib24/27/2025 12:40 PM EST Office Visit [facility] Physician [facility] Gynecology [address] [place] [address] Darlin Ortega MD [address] [place] [address] [facility] Physician [facility] GynecologyStart: 09-12-2024 End: 86-40-8999Zcwlqfylp to same day surgery emkofz6709/12/2024 8:10 AM EST - 09/12/2024 10:20 AM EST Surgery [facility] [address] [place] [address] Darlin Ortega MD [address] [place] [address] ROBOTIC ASSISTED LAPAROSCOPIC EXCISION OF ENDOMETRIOSIS, CHROMOPERTUBATION, CYSTOSCOPY POSSIBLE HYDRODISTENTION, HYSTEROSCOPY DILATION AND CURETTAGE WITH MYOSURE *SIMPLE* *ERAS PROTOCOL* *GLYCEMIC CONTROL PROTOCOL* [facility] PeriopComment on above:ROBOTIC ASSISTED LAPAROSCOPIC EXCISION OF ENDOMETRIOSIS, CHROMOPERTUBATION, CYSTOSCOPY POSSIBLE HYDRODISTENTION, HYSTEROSCOPY DILATION AND CURETTAGE WITH MYOSURE *SIMPLE* *ERAS PROTOCOL* *GLYCEMIC CONTROL PROTOCOL*Start: 09-12-2024 End: 99-29-3745Fxnt abd prtm&omentum dx w/wo spec br/wa spxPELVISCOPY ROBOTIC XI - SIMPLE Pelvic pain in female Interstitial cystitis Pelvic congestion syndrome Gilbert's syndrome Endometriosis determined by laparoscopy History of multiple miscarriages 09/12/2024 8:10 AM [facility] 09-12-2024 Subsequent hospital visit by physicianK[facility] PeriopStart: 09-01-2024 End: 01-92-7084Pexcaist Satozrp3409/01/2024 12:00 PM EST Clinical Support [facility] [address] [place] [address] Lana LoveCleveland Clinic Foundation GynecologyStart: 08-17-2024 End: 66-99-9209Znluakl encounter fqqyzszpb74/16/2025 10:00 AM EST Office Visit [facility] [address] [place] [phone] Darlin Ortega MD [address] [place] [address] [facility] GynecologyStart: 07-24-7294AIDUE-19 Vaccine ( season) COVID-19 Vaccine ( season)[facility] HospitalStart: 43-01-5676Qyucxxuza vaccinationInfluenza Vaccine (#1)[facility] HospitalStart: 09-29-2023 End: 35-98-0201Cjrbsri encounter reoslryzk60/28/2024 1:10 PM EST Office Visit [facility] [address] [place] [address] Joanna Suh PA-C [address] [place] [address] [facility] GynecologyStart: 71-89-5169Qpryurp and physical examination, annual for [facility] VisitNvioHealthStart: 87-35-8059Narkxqwkd vaccinationCleveland Clinic Foundationtart: 10-22-2022 End: 34-38-7735Gcfpsxz encounter /23/2023 Procedure visit Gynecology Marlys West CNP [address] [place] [address] [facility] Start: 09-30-2022 End: 13-82-2643Cibjdjekxrbi consultation with eaolzqa1509/30/2022 Telemedicine Gynecology Joanna Suh PA-C [address] [facility] [place] [address] [facility] GynecologyStart: 20-76-2038EAZRTVSHOX ASSESSMENTDEPRESSION ASSESSMENTCleveland Clinic Foundationtart: 07-02-2022 End: 16-46-9386Amylbok encounter kehqtnykf63/01/2022 Office Visit Gynecology Joanna Suh PA-C [address] [place] [place] [address] [facility] Start: 04-10-2022 End: 82-17-3138Sptqlhy encounter aupnzxbzl10/09/2022 Procedure visit Gynecology Connie Peterson CNP [address] [place] [place] [address] [facility] Start: 34-35-4156Ljavzbzsr vaccinationOhioHealthStart: 01-08-2021 End: 10-11-3534Bqtnaq Visit01/08/2021 Office Visit Gynecology Viktor Mendosa CNM [address] [place] [place] [address] [phone] [facility] GynecologyStart: 10-09-2020 End: 34-77-4066Llglqt Visit10/09/2020 Office Visit Gynecology Darlin Ortega MD [address] [place] [address] [phone] [facility] GynecologyStart: 09-26-2020 End: 47-10-8216Dbdgrodd EncounterDuMidCoast Medical Center – Central PeriopComment on above:XI ROBOTIC ASSISTED LAPAROSCOPIC EXCISION OF ENDOMETRIOSIS, CHROMOPERTUBATION, CYSTOSCOPY POSSIBLE HYDRODISTENTION, POSSIBLE IUD INSERTION ERAS PROTOCOLStart: 09-26-2020 End: 92-15-3497Flxxpnqu EncounterDuMidCoast Medical Center – Central PeriopComment on above:XI ROBOTIC ASSISTED LAPAROSCOPIC EXCISION OF ENDOMETRIOSIS, CHROMOPERTUBATION, CYSTOSCOPY POSSIBLE HYDRODISTENTION, POSSIBLE IUD INSERTION ERAS PROTOCOLStart: 09-25-2020 End: 78-03-8205Pqmqxynx SupportOhMarietta Memorial Hospital GynecologyStart: 09-22-2020 End: 30-82-6982Osdmyk Visit09/22/2020 Office Visit Lab Darlin Ortega MD [address] [place], [place] [phone] COVID Assessment CenterStart: 49-12-2494Ltjouwzka vaccination given Sequential Influenza Vaccine (#1)[facility]HealthStart: 61-92-2424EDK TESTINGPAP TESTINGCleveland Clinic Foundationtart: 16-42-0544Myacp microalbumin profileDTAP,TDAP,TD (1 - Tdap)[facility] Foundationtart: 20-83-9675Nsssxcuvi C antibody, confirmatory testHepatitis C ScreeningOhioHealthStart: 60-04-2038Mfjnscobb C screening Hepatitis C ScreeningOhioHealthStart: 06-78-5997OHKFFWYAS C SCREENINGHEPATITIS C SCREENINGEdmonds ClinicStart: 84-13-3522XLB SCREENINGHIV SCREENINGCleveland Clinic Foundationtart: 64-33-4467ZUSEX-19 Vaccine (1 of 2)COVID-19 Vaccine (1 of 2) [facility]HealthStart: 63-40-8895QIZ screeningHIV ScreeningOhioHealthStart: 2005 Adolescent depression screening assessmentDepression Screening (PHQ9)[facility] Start: 12-11-6247Pwgmukgkyl screening using PHQ-9 (Patient Health Questionnaire 9) scoreOhioHealthStart: 40-85-1263Hbnzonr and physical examination, annual for [facility] VisitNvioHealthStart: 92-57-1817GPVMU-19 Vaccine (#1) COVID-19 Vaccine (#1)[facility]HealthStart: 79-39-2843PQUJNFBZK B (1 of 3 - 3-dose series)HEPATITIS B (1 of 3 - 3-dose series)[facility] Foundationtart: 1993 Screening for malignant neoplasm of cervixPap SmearOhioHealthBacteria identified in Unspecified specimen by Aerobe cultureUrine Aerobic Culture Microbiology Routine Post-operative state 09/28/2024 1:42 PM ESTNvLogic Product Group Work Phone: End: 85-55-6443Msojbrbf identified in Unspecified specimen by Aerobe culture Urine Aerobic Culture Microbiology Routine Acute cystitis without hematuria 1 Occurrences starting 10/06/2024 until 10/06/2025[facility] Work Phone: comment on above:1 Occurrences starting 10/06/2024 until 6Blood type and Indirect antibody screen panel - BloodType and Screen Blood Bank Routine Pre-op examination 09/01/2024 12:46 PM [employer] Work Phone: chlamydia trachomatis rRNA assay Chlamydia/GC/Trichomonas Amplified RNA Microbiology Routine Vaginal discharge 04/02/2022 12:31 PM EDTOhiNHeal End: 45-44-5235Xducfoly blood count with white cell differential, manualCBC and differential Lab Routine Dark yellow-colored urine 1 Occurrences starting 06/18/2022 until 06/18/2023[facility] [facility] Work Phone: comment on above:1 Occurrences starting 06/18/2022 until 3Complete blood count with white cell differential, manualCBC and differential Lab Routine Dark yellow-colored urine 06/18/2022 1:02 PM EST [employer] End: 07-89-4257Jznsjdtrnh [Mass/volume] in Serum or PlasmaCreatinine, Serum Lab Routine Dark yellow-colored urine 1 Occurrences starting 06/18/2022 until 06/02OhioHealthComment on above:1 Occurrences starting 06/18/2022 until 06/18/2023reatinine [Mass/volume] in Serum or PlasmaCreatinine, Serum Lab Routine Dark yellow-colored urine 06/18/2022 1:02 PM ESTOhioHealth End: 60-11-5788XST Habitual Aborter ProfileCWC Habitual Aborter Profile Lab Routine History of recurrent miscarriages 1 Occurrences starting 08/14/2024 until 08/14/2025[facility] Work Phone: comment on above:1 Occurrences starting 08/14/2024 until 08/14/2025 End: 59-58-6523Kucpvldagb mammography computer-aided detcj biMAM DIAGNOSTIC BILAT Radiology Routine Mass of upper outer quadrant of right breast Nipple discharge Family history of breast cancer At high risk for breast cancer Mastalgia 1 Occurrences starting 08/25/2022 until 09/24/2023[facility] Work Phone: Comment on above:1 Occurrences starting 08/25/2022 until 09/24/2023 End: 29-62-2135Kifzncwbuxt vaginalis rRNA assayVaginitis DNA Probes Microbiology Routine Vaginal discharge 1 Occurrences starting 04/02/2022 until04/02/2023 OhioHealthComment on above:1 Occurrences starting 04/02/2022 until 04/02/2023 Gardnerella vaginalis rRNA assayVaginitis DNA Probes Microbiology Routine Vaginal discharge 04/02/2022 12:31 PM EDTOhioHealth End: 82-16-6284Zwosoje [Mass/volume] in Serum or PlasmaGlucose Lab Routine History of multiple miscarriages 1 Occurrences starting 08/21/2024 until 026OhioHealthComment on above:1 Occurrences starting 08/21/2024 until 08/21/2025 End: 50-14-9432Lvjusbp [Units/volume] in Serum or PlasmaInsulin, Total Lab Routine History of multiple miscarriages 1 Occurrences starting 08/21/2024 until 08/21/2025[facility] Work Phone: comment on above:1 Occurrences starting 08/21/2024 until 08/21/2025 End: 46-22-4531VUDKZJXAEI OF BLADDERIrrigation of bladder Procedures Routine Interstitial cystitis 1 Occurrences starting 06/18/2022 until 06/18/2023 OhioHealthComment on above:1 Occurrences starting 06/18/2022 until 06/18/2023 Laps abd prtm&omentum dx w/wo spec br/wa spxPELVISCOPY ROBOTIC XI - SIMPLE Pelvic pain in female Interstitial cystitis Pelvic congestion syndrome Gilbert's syndrome Endometriosis determined by laparoscopy History of multiple miscarriagesRiverside Orthodoxy HospitalMicroscopic examination of vaginal Papanicolaou smearThinprep Pap Smear Pathology and Cytology Routine Screening for malignant neoplasm of cervix Ordered: 2[facility] Work Phone: comment on above:Ordered: 04/02/2022 End: 45-75-7299Nry breast without&with contrast w/cad bilateralMRI BREAST WO/W IVCON BILAT Radiology Routine Mass of upper outer quadrant of right breast Nipple discharge Family history of breast cancer At high risk for breast cancer Mastalgia 1 Occurrences starting 08/25/2022 until 09/24/2023[facility] Work Phone: Comment on above:1 Occurrences starting 08/25/2022 until 09/24/2023Neisseria gonorrhoeae nucleic acid detectionOhioHealthComment on above:Ordered: 2Patient EducationUrinary tract infections in adults [facility] Work Phone: [facility] referralWilson [facility] Work Phone: Procedure on tissue specimenOhioHealthComment on above:Release Upon Ordering for 1 Occurrences starting 09/26/2020, 1 completed Trichomonas vaginalis Amplified RNAOhioHealthComment on above:Ordered: 04/02/2022 End: 90-64-8146Ttgzk [Mass/volume] in Serum or PlasmaUric Acid Lab Routine Dark yellow-colored urine 1 Occurrences starting 06/18/2022 until 06/18/2023 OhioHealthComment on above:1 Occurrences starting 06/18/2022 until 06/18/2023 Urate [Mass/volume] in Serum or PlasmaUric Acid Lab Routine Dark yellow-colored urine 06/18/2022 1:02 PM ESTOhioHealth End: 25-26-5102Lo breast uni real time with image limitedUS BREAST LTD RT Radiology Routine Mass of upper outer quadrant of right breast Nipple discharge Family history of breast cancer At high risk for breast cancer Mastalgia 1 Occurrences starting 08/25/2022 until 4CKindred [facility] Work Phone: Comment on above:1 Occurrences starting 08/25/2022 until 4CSelect [facility] Immunizations Immunization DateImmunizationNotesCare XhxmasjqMhbdpupg17-09-1563lkedaoz toxoid, reduced diphtheria toxoid, and acellular pertussis vaccine, adsorbedCaroline SPETTEL [facility] AdministrationComment on above:Reason for Medication: Other (see comment)NEGATED: Highlighted row has not occurred! 30-82-4947kyofvarzm virus vaccine, unspecified formulationhn Chuguobang 893-5228Vmzxhp-WhngyOhio [facility] Surgical Hospital [facility] [place] NEGATED: Highlighted row has not occurred!31-96-2804XQDP-CoV-2 mRNA (tozinameran 5y-11y) vaccineJohn Chuguobang 142-6950Wqlhqq-RujdlOhio Valley Surgical Hospital General Surgery [place] NEGATED: Highlighted row has not occurred!19-38-8531BGMA-CoV-2 (COVID-19) mRNA- 1273 vaccineCaroline SPETTEL [facility] AdministrationNEGATED: Highlighted row has not occurred!07-55-7471chsbnufxn virus vaccine, unspecified formulation Angela ArdelyxKYMBERLYProtoShare [facility] Health AdministrationNEGATED: Highlighted row has not occurred!31-82-5412ytjjfmvgg virus vaccine, live, attenuated, for intranasal useCaroline SPETTEL [facility] Payers DatePayer CategoryPayerPolicy [id number] [id number] 2016 MedicaidCARESOURCE MANAGED MEDICAID CARESOURCE MEDICAID [id number] 2016-[id number] [id number] 2016Medicaid (Managed Care)[facility] MEDICAID Member Subscriber Plan / Payer (Effective 2016- Present) Name: Miladis Cha Relation to Subscriber: Self Name: Miladis Cha Payer ID: Not on file Group ID: [id number] Type: Not on file Address: [address] [id number]. [facility] Member Subscriber Plan / Payer (Effective 2016-Present) Name: Miladis Cha Relation to Subscriber: Self Name: Miladis Cha Payer ID: Not on file Group ID: [id number] Type: Not on file Address: [address] [id number] [id number] [id number] [id number] 2840.1.428567.3.57[id number] 2..1.818345.3.57[id number] 2.16840.1.307212.3.57[id number] 2.16840.1.866157.3.57[id number] 2.840.1.549361.3.57[id number] 2.840.1.901130.3.57[id number] 2.0.1.356288.3.579.[id number] 2..1.840699.3.57[id number] 2.840.1.299892.3.57[id number] 2.840.1.312221.3.57[id number] 2.840.1.570342.3.579.2.663 [id number] 2..1.611917.3.579.[id number] 2.840.1.434744.3.579.2.38424-34-4160Hmzcipm00642260 2.840.1.746535.3.579.[id number] 2.840.1.416425.3.579.2.71589-55-3743Zsjuaas67302659 2.840.1.067984.3.579.2.0[id number] 2.16840.1.919939.3.579.2.82489-30-3995Hmyhlgo277199656 2.16840.1.620811.3.579.2.[id number] 2.16.840.1.105914.3.579.[id number] 2.840.1.083619.3.579.2.00585-33-8075Zqprhgu818318375 2.840.1.059120.3.579.2.486[id number] 2.840.1.429383.3.579.2.47639-79-5932Ldjnkwe81787803 2.840.1.510837.3.579.2.48349-97-1685Tcihlcq05052122 2.840.1.662705.3.579.2.34608-39-8286Czleppa16293852 2.840.1.884140.3.57[id number] 2.840.1.789733.3.579.2.[id number] 2.840.1.312174.3.579.2.94400-57-7546Zzmavau75867095 2.840.1.701672.3.579.2.04321-58-9119Qqemeab13985060 2.840.1.377349.3.579.2.87809-22-3196Hphocsu48785728 2.840.1.540478.3.579.2.60473-91-8931Mzfretk24518279 2.840.1.458945.3.579.2.46634-33-5768Gehegja98399590 2.16.840.1.388509.3.579.2.54980-42-5042Urjhwly64633000 2.16.840.1.891782.3.579.2.25616-10-4273Igtmbtg02527856 2.16840.1.342849.3.579.2.78686-35-4409Kbauzvv75373576 2.16840.1.170097.3.57[id number] 2.16840.1.638376.3.579.2.86083-96-6559Jbywqyw21730240 2.16840.1.412909.3.579.2.82044-53-7014Wzzsvmq99543937 2.16840.1.127404.3.579.2.38690-71-3020Ulvvqgm61536208 2.16840.1.993395.3.579.2.84689-50-5118Xxmxllu27716296 2.16840.1.854114.3.579.2.44863-42-4486Nsqyvjv41190056 2.16840.1.435762.3.579.2.214679-86-5498Twsjbou55861631 2.16840.1.617703.3.579.2.28453-92-8648Jufzjvp28161549 2.16840.1.283831.3.579.2.39524-08-1190Beaihmu76158734 2.16840.1.690987.3.579.[id number] 2.16840.1.638[id number] 2.16840.1.602598.3.579.2.243 UnknownHCAP/HFA/FAP Eiaors816-47-3871 k0v62463-z2g0-3102-o311-[id number] [id number] 2..840.1.8[id number] 2..840.1.647731.3.579.2.531 Social History DateTypeDetailFacilityStart: 08-14-2020 End: 25-85-9470Sspugxy smoking status NHISNever smokerOhioHealthStart: 08-14-2020 End: 94-54-9367Gsspjvt use and exposureNever usedOhioHealthStart: 08-14-2020 End: 87-29-0898Zwdtoni intakeLifetime non-drinker (finding)[facility]HealthStart: 08-14-2020 End: 46-78-0992Tewcxuc SDOH Alcohol Ovaajyybh2YkyuSfxmxlGjlqg: 13-41-7647Rte Assigned At BirthNot on fileOhioHealthStart: 03-20-2022 End: 57-65-4491Buegyvrv to SARS-CoV-2 (event)Not sureOhioHealthStart: 11-30-2022 Tobacco smoking statusNeverLakeHealth Beachwood Medical Centertart: 09-23-2020 End: 64-09-7966Bmp Assigned At BirthFemalCleveland Clinic Fairview Hospitaltart: 04-02-2022 End: 58-34-3536Orqmzuq intakeCurrent drinker of alcohol (finding)[facility] Start: 19-65-7687Mvfzqnj CommentOccasional drinks. Not very often.[facility] Start: 64-63-6143Xnkvbti CommentsociallyClevelatrium health harrisburg ClinicStart: 09-23-2020 End: 53-54-4012Bjfvsli of Social functionOhioHealthHow often to you have a drink containing alcohol?NeverOhioHealthStart: 36-68-8566Vzawdp identityIdentifies as female gender (finding)[facility]Start: 80-41-8594Pdghiu orientation Heterosexual (finding)OhioHealthSexual OrientationVeterans Health Administration Start: 05-00-6150OylMqhegx (finding)[facility] Centertart: 52-09-2282Yol [facility]igned At [facility] HospitalTobacco smoking status NHISTobacco smoking consumption unknownNONC Healthcare Medical Equipment Procedure CodeEquipment CodeEquipment Original TextEquipment IdentifierDatesCath 2.5in Expansion On-Q Silversoaker - [id number]: 10-06-4625Lwh 4ml Vh S/D Tisseel - [id number]: 36-81-8333Vxhu 600ml Dual On-Q Tldydc-O-Njcq - [id number]: 69-93-1295Rdshzwp 3 X 4in Adhesion Tc 7 Interceed - [id number]: 12-94-5904Nmkt 5in Expansion On-Q Silversoaker - [id number], [id number] FDAStart: 44-28-6995Fyerldw 5 X 6in Adhesion Tc 7 Interceed - [id number], [id number] FDAStart: 35-10-3604Dutb 600ml Dual On-Q Tfebvr-P-Thtk - [id number]: 09-12-2024 Functional Status EvrsLifwlywprwIvdekaUylrljge09-39-1819Scgjbfovio StatusN/[facility] Primary Utdi13-83-6084Wieduodrgn StatusN/[facility] 58-99-9229Voafgdveol StatusN/[facility]09-16-2024Functional StatusN/[facility]03-30-2024Functional Status N/[facility]03-06-2024Functional StatusN/[facility]12-14-2023Functional StatusN/[facility] 27-36-7929Vddjpywznl StatusN/AFisher Grace Medical CenterVkyzkl94-90-7366Wwqornfffk StatusN/[facility]Hol[facility] Qjkdvuk98-61-0589Evikjnyhiz StatusN/[facility] Primary Care Clinical Notes 12-31-2021 to 05-14-2025 Note Date & NcpmVipyOafxnijq62-65-5472 History of Present illness Narrative* Connie Nancy, SENIOR SVP - 05/14/2025 8:40 AM EDT Reason for Appointment: Patient ID: Miladis Cha is a 29 y.o. female who presents for ER Follow-up ([place]20[place] [facility] [place]flank pain. ) Patient presents [...] Medical History: Diagnosis Date Miscarriage ([facility]) 07/23/2023 HISTORY PAST MEDICAL HISTORY SOCIAL HISTORY Past Medical History: Diagnosis Date Miscarriage ([facility]) 07/23/2023 Social History Tobacco Use Smoking status: [...] nursing note reviewed. Exam conducted with a mall plant caretaker present. Vitals: There is no height or weight on file to calculate BMI. BP: 118/74 Patient's last menstrual period was 04/02/2025 (exact date). ASSESSMENT & PLAN ICD-10-CM 1. History of miscarriage Z87.59 Progesterone 200 MG suppository 2. Threatened miscar[facility] ([facility] O20.0 Patient and spouse present today for ER follow up [place] for possible ectopic/miscarriage. Patient voiced that levels [...] of: Ahsan Mendoza DO documented in this encounterWestern Missouri Mental Health CenterEbkmukergx75-52-3832 Radiology Diagnostic study [facility] [place] [address] [place] [address] Ultrasound Report Signed Patient: Miladis Dougherty MR#: [id number] : 1995 Acct:[id number] Age/Sex: 29 / F ADM Date: 5 Loc: ER Room: Type: [facility] ER Attending Dr: Ordering Provider: Jurgen Flores DO Date of Service: 05/10/25 US/US OB transvaginal: Abdominal Pain ([id number]) US/US OB <= 14 weeks fetus: . [...] [place] M.D. 05/10/2025 12:59 PM Dictation Location: [place] [address] Tech: Julia White Transcribed By: TRICIA 05/10/25 125 Dictated By: Jose Alejandro [place] II, MD 05/10/25 1251 Signed By: 05/10/25 125 [facility] Work Phone: 1(199) 891-402809-02-2025 NotePatient Education - Text Urology Hydrodistention of [...] medicine that helps you relax. ??? Take bhtt-nso-wmrlhpe and prescription medicines only as told by [...] provider. Document Revised: 11/24/2022 Document Reviewed: 11/23/2022 [employer] Patient Education ? 2023 [employer].[facility] 04-03-2025 NoteProgress Note-Physician Patient: MILADIS DOUGHERTY Age: 29 years Sex: Female : 1995 Associated Diagnoses: None Author: Samuel APGE, Marleen Newman. Postoperative Information Postoperative disposition: Postoperative disposition: Home. [...] discomfort, # 30 tab(s), Refills(s) 1, [facility] #[id number], 162, cm, 03/27/25 5:54:00 EDT, Height/Length Dosing, 74, kg, 03/27/25 5:54:00 EDT, Weight Dosing, Home Medications (1) Active oxybutynin 5 mg Tab 5 mg = 1 tab(s), PRN, Oral, TID Problem list: All Problems Abnormal mammogram / SNOMED CT 173707480 / Confirmed Allergic rhinitis / SNOMED CT 746239201 / Confirmed Bladder pain / SNOMED CT 5404639073 / Confirmed BMI 28.0-28.9,adult / SNOMED CT 8154643616 / Confirmed Breast discharge / SNOMED CT 357363237 / Confirmed Breast lump or mass / SNOMED CT 594882694 / Confirmed Breast mass / SNOMED CT 208848162 / Confirmed Breast pain, right / SNOMED CT 9458729988 / Confirmed Chest tightness / SNOMED CT 500661717 / Confirmed Chronic female pelvic pain / SNOMED CT 264712021 / Confirmed Diarrhea / SNOMED CT 272551373 / Confirmed Duplicated ureter, right / SNOMED CT 26715907 / Confirmed Dysuria / SNOMED CT 05665895 / Confirmed Fainting episodes / SNOMED CT 528918681 / Confirmed Fatigue / SNOMED CT 572378415 / Confirmed Febrile seizures / SNOMED CT 48192519 / Confirmed Frequent urination / SNOMED CT 353486203 / Confirmed Frequent UTI / SNOMED CT 410808307 / Confirmed Gross hematuria / SNOMED CT 513058938 / Confirmed History of kidney stones / SNOMED CT 0670972585 / Confirmed IBS (irritable bowel syndrome) / SNOMED CT 01413305 / Confirmed Interstitial cystitis / SNOMED CT 9437720679 / Confirmed Irregular menses / SNOMED CT 159P16MO-M847-5T7F-37YV-898R0941KU3P / Confirmed Kidney stone / SNOMED CT 919393472 / Confirmed Left lower quadrant abdominal pain / SNOMED CT 930782533 / Confirmed Lymphadenopathy / SNOMED CT 23564659 / Confirmed Menorrhagia / SNOMED CT 9177713495 / Confirmed Nipple discharge / SNOMED CT 751729823 / Confirmed Other nail disorders / SNOMED CT 3124827703 / Confirmed Over weight / SNOMED CT 927299415 / Confirmed Pelvic congestion syndrome / SNOMED CT 48658542 / Confirmed Serous otitis media / SNOMED CT 181674483 / Confirmed Shortness of breath / SNOMED CT 901857345 / Confirmed SHAE (stress urinary incontinence, female) / SNOMED CT 345567746 / Confirmed Thyromegaly / SNOMED CT 4888259 / Confirmed UTI (urinary tract infection) / SNOMED CT 777328785 / Confirmed Vaginal discharge / SNOMED CT 712070941 / Confirmed Viral syndrome / SNOMED CT 36432897 / Confirmed Vitamin D deficiency / SNOMED CT 02563715 / Confirmed Physical Examination Vital Signs 04/03/2025 [...] EDT Respiratory Rate M (more content not included)...[facility]imaComment on above:Result Comment: Electronically Signed By: Samuel PAGE, Marleen Harrison\.br\Date and Time Signed: 04/03/25 13:26 [id number] NoteHistory and Physical Patient: MILADIS DOUGHERTY Age: [...] All Problems Abnormal mammogram / SNOMED CT 456111972 / Confirmed Allergic rhinitis / SNOMED CT 434030999 / Confirmed Bladder pain / SNOMED CT 4702466844 / Confirmed BMI 28.0-28.9,adult / SNOMED CT 0772048654 / Confirmed Breast discharge / SNOMED CT 841764700 / Confirmed Breast lump or mass / SNOMED CT 523750364 / Confirmed Breast mass / SNOMED CT 536856989 / Confirmed Breast pain, right / SNOMED CT 3605747446 / Confirmed Chest tightness / SNOMED CT 320799087 / Confirmed Chronic female pelvic pain / SNOMED CT 050345402 / Confirmed Diarrhea / SNOMED CT 717568412 / Confirmed Duplicated ureter, right / SNOMED CT 04738092 / Confirmed Dysuria / SNOMED CT 48937113 / Confirmed Fainting episodes / SNOMED CT 648413335 / Confirmed Fatigue / SNOMED CT 285852602 / Confirmed Febrile seizures / SNOMED CT 73054511 / Confirmed Frequent urination / SNOMED CT 373319106 / Confirmed Frequent UTI / SNOMED CT 941031796 / Confirmed Gross hematuria / SNOMED CT 222289533 / Confirmed History of kidney stones / SNOMED CT 4314358829 / Confirmed IBS (irritable bowel syndrome) / SNOMED CT 25884854 / Confirmed Interstitial cystitis / SNOMED CT 0316889982 / Confirmed Irregular menses / SNOMED CT 841Q74WA-C543-2K5B-24ZV-346Y1998UC6I / Confirmed Kidney stone / SNOMED CT 623716758 / Confirmed Left lower quadrant abdominal pain / SNOMED CT 464667310 / Confirmed Lymphadenopathy / SNOMED CT 91985206 / Confirmed Menorrhagia / SNOMED CT 8267807374 / Confirmed Nipple discharge / SNOMED CT 496824422 / Confirmed Other nail disorders / SNOMED CT 0467073735 / Confirmed Over weight / SNOMED CT 790286181 / Confirmed Pelvic congestion syndrome / SNOMED CT 22828487 / Confirmed Serous otitis media / SNOMED CT 987514087 / Confirmed Shortness of breath / SNOMED CT 567345531 / Confirmed SHAE (stress urinary incontinence, female) / SNOMED CT 014976915 / Confirmed Thyromegaly / SNOMED CT 0012561 / Confirmed UTI (urinary tract infection) / SNOMED CT 206870403 / Confirmed Vaginal discharge / SNOMED CT 082274824 / Confirmed Viral syndrome / SNOMED CT 06139484 / Confirmed Vitamin D deficiency / SNOMED CT 22175015 / Confirmed Resolved: Adult BMI 27.0-27.9 kg/sq m / SNOMED CT 8274288491 Resolved: Adult body mass index 28.0-28.9 / SNOMED CT 0149809028 Resolved: Gilbert syndrome / SNOMED CT 58737768 Resolved: / SNOMED CT 143428842 Canceled: Adult BMI 26.0-26.9 kg/sq m / SNOMED CT 3926461579 Canceled: BMI 25.0-25.9,adult / SNOMED CT 5365337759 Canceled: Fullness of breast / SNOMED CT 454831239 Canceled: Infection following a procedure, superficial incisional surgical site, sequela / SNOMED CT 144049746 Canceled: Mammogram abnormal / SNOMED CT 990742569 Canceled: Overweight (BMI 25.0-29.9) / SNOMED CT 4511571546 Canceled: UTI symptoms / SNOMED CT 083900590 Histories Past Medical History: Active Irregular menses ([id number]-[id number]) Resolv (more content not included)...[facility]imaComment on above:Result Comment: Electronically Signed By: Xavier PAGE, Sumaya Osman.br\Date and Time Signed: 04/03/25 12:[id number] NoteProgress Note-Physician Patient: MILADIS DOUGHERTY Age: 29 [...] 75.4 % HI Lymph Auto 19.4 % Lincoln Auto 4.4 % Eos Auto 0.6 % Basophil Auto 0.2 % Neutro Absolute 6.2 E9/L Lymph Absolute 1.6 E9/L Lincoln Absolute 0.4 E9/L Eos Absolute 0.0 E9/L [...] All Problems Abnormal mammogram / SNOMED CT 489952472 / Confirmed Allergic rhinitis / SNOMED CT 434139053 / Confirmed Bladder pain / SNOMED CT 4615612293 / Confirmed BMI 28.0-28.9,adult / SNOMED CT 5389073469 / Confirmed Breast discharge / SNOMED CT 592196167 / Confirmed Breast lump or mass / SNOMED CT 593566574 / Confirmed Breast mass / SNOMED CT 349135524 / Confirmed Breast pain, right / SNOMED CT 2496817583 / Confirmed Chest tightness / SNOMED CT 902831232 / Confirmed Chronic female pelvic pain / SNOMED CT 335590994 / Confirmed Diarrhea / SNOMED CT 344076635 / Confirmed Duplicated ureter, right / SNOMED CT 99203059 / Confirmed Dysuria / SNOMED CT 63356485 / Confirmed Fainting episodes / SNOMED CT 857447988 / Confirmed Fatigue / SNOMED CT 861088941 / Confirmed Febrile seizures / SNOMED CT 96097885 / Confirmed Frequent urination / SNOMED CT 545431496 / Confirmed Frequent UTI / SNOMED CT 817164360 / Confirmed Gross hematuria / SNOMED CT 503917484 / Confirmed History of kidney stones / SNOMED CT 3760097498 / Confirmed IBS (irritable bowel syndrome) / SNOMED CT 28861028 / Confirmed Interstitial cystitis / SNOMED CT 9937386843 / Confirmed Irregular menses / SNOMED CT 434S83GU-S385-5C6P-04BT-591H8548AL8I / Confirmed Kidney stone / SNOMED CT 024837543 / Confirmed Left lower quadrant abdominal pain / SNOMED CT 827912879 / Confirmed Lymphadenopathy / SNOMED CT 17944611 / Confirmed [place] (more content not included)...[facility]imaComment on above: Result Comment: Electronically Signed By: Samuel PAGE, Marleen Newman.\.br\Date and Time Signed: 04/03/25 10:42 [id number] NoteProgress Note-Physician Patient: MILADIS DOUGHERTY Age: 29 years Sex: Female : 1995 Associated Diagnoses: None Author: Xavier PAGE, Sumaya Nguyễn Health Status Allergies: Allergic Reactions (Selected) Severity Not Documented Bactrim- Hives., Allergies (1) Active Severity Reaction Bactrim hives Current medications: (Selected) Prescriptions Prescribed hydrOXYzine hydrochloride 25 mg Tab: 25 mg = 1 tab(s), Oral, Bedtime, # 30 tab(s), Refills(s) 11, Pharmacy[facility]/pharmacy #[id number], 162, cm, 02/08/25 11:05:00 EDT, Height/Length Dosing, 71.7, kg, 02/08/25 11:05:00 EDT, Weight Dosing mirabegron 25 mg oral tablet, extended release: 25 mg = 1 tab(s), Oral, Daily, # 30 tab(s), Refills(s) 11, Pharmacy: [facility]/pharmacy #[id number], 162, cm, 02/08/25 11:05:00 EDT, Height/Length [...] medications. Patient opted tried both. Also discussed xsoq-ray-jvvqzcn adjuncts for pelvic floor massage/trigger point relaxation. - Referral for pelvic floor physical therapy with biofeedback - Will start Valium/baclofen vaginal suppositories, weekly for 2 weeks and once a week for maintenance. Will send to [facility] drug pharmacy 2. Interstitial cystitis Cystoscopy 02/26/25 [...] voids and avoiding bladder irritants - See #2Fwilbert Saint Luke InstituteComment on above:Result Comment: Electronically Signed By: Xavier PAGE, Sumaya Osman.br\Date and Time Signed: 02/26/25 08:[id number] NotePatient Education Cystoscopy ??? Voiding after the [...] if you have a fever over 100 degrees.[facility] 02-08-2025 Hospital Discharge instructions Patient Education 02/08/2025 [...] including vitamins, herbs, eye drops, creams, and ejli-ars-rygdkcx medicines. Any problems you or family members [...] provider tells you to take them. Taking tmxn-bnd-gxcrzyt medicines, vitamins, herbs, and supplements. Tests You [...] Follow these instructions at home: Medicines Take tgbp-xnz-oghookf and prescription medicines only as told by [...] provider. Document Revised: 04/01/2022 Document Reviewed: 02/28/2021 [employer] Patient Education 2023 [employer]. 02/08/2025 11:25:49 Interstitial Cystitis Interstitial Cystitis Interstitial [...] interstitial cystitis vary, and they can change management coordinator time. Symptoms may include: Discomfort or pain [...] you go to bed. General instructions Take flnd-mbx-lhcelre and prescription medicines only as told by [...] provider. Document Revised: 02/15/2021 Document Reviewed: 02/21/2021 [employer] Patient Education 2023 [employer]. Follow Up Care 01/05/2025 14:17:02 With:Xavier PAGE, RONI Cole, URO Address: When: Unknown [facility] 07-10-2025 NotePatient Education Urology Cystoscopy Cystoscopy is [...] including vitamins, herbs, eye drops, creams, and qmac-agc-dzehrad medicines. ??? Any problems you or family [...] tells you to take them. ??? Taking ujgw-rpb-pukssyp medicines, vitamins, herbs, and supplements. Tests You [...] these instructions at home: Medicines ??? Take vhwt-csq-pmqoiar and prescription medicines only as told by [...] testing (biopsy) during your (more content not included)...[facility] Hospital Discharge instructions Patient Education 01/05/2025 16:38:00 [...] Treatment for this condition includes: Antibiotic medicine. Pbhs-knm-orqtkhe medicines to treat discomfort. Drinking enough water [...] Follow these instructions at home: Medicines Take pler-yff-vixypng and prescription medicines only as told by [...] provider. Document Revised: 02/23/2021 Document Reviewed: 02/28/2021 [employer] Patient Education 2023 [employer]. Follow Up Care 01/05/2025 09:04:35 With:Xavier PAGE, Sumaya Nguyễn URPaul, URO Address: When: Unknown Comments:F/u 1 month [facility] 06-06-2025 NotePatient Education Urology Urinary Tract Infection, [...] this condition includes: ??? Antibiotic medicine. ??? Ljaq-mun-gsaygaq medicines to treat discomfort. ??? Drinking enough [...] these instructions at home: Medicines ??? Take gzfd-dil-hjuqyks and prescription medicines only as told by [...] discuss any question (more content not included)... [facility] Hospital Discharge instructions Patient Education 01/03/2025 22:18:38 Urinary Tract Infection, Adult, Vaeu-ab-Atyn Urinary Tract Infection, Adult A urinary tract [...] Follow these instructions at home: Medicines Take vymz-xtk-rbbgkuv and prescription medicines only as told by [...] provider. Document Revised: 02/23/2021 Document Reviewed: 02/28/2021 [employer] Patient Education 2023 [employer]. Follow Up Care 01/03/2025 17:32:13 With:Dia Madsen Address:Unknown When:01/06/2025 21:47:44 Comments:Stop the Keflex and start the Cipro until you complete the course. 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 Please return to the ED for any new or worsening symptoms. [facility] 06-04-2025 NoteED Patient Education Note Obstetrics and [...] these instructions at home: Medicines ??? Take smmb-vfq-nwkkqpz and prescription medicines only as told by [...] provider. Document Revised: 02/23/2021 Document Reviewed: 02/28/2021 [employer] Patient Education ? 2023 [employer].[facility] 01-03-2025 Evaluation + Plan noteExtracted from:Title:ED NoteAuthor:Louis [...] Date:03/23/2025 08:00:00 AM Scheduled Provider:Miladis Mayberry PA-C [place] [place] Appointment Type:URO Office Visit Diagnostic Tests Pending * Urine Culture 01/03/25 Future Scheduled Tests Radiology* US Renal 01/11/25 * CT Abdomen/Pelvis w/ Contrast 12/20/24 [facility] 05-30-2025 Hospital Discharge instructions Patient Education 12/29/2024 18:43:54 [...] Follow these instructions at home: Medicines Take pbfs-fyf-lyynulo and prescription medicines only as told by [...] or the blood stops without treatment. Take qqxr-feb-umnavuw and prescription medicines only as told by your health care provider. Drink enough fluid to keep your urine pale yellow. This information is not intended to replace advice given to you by your health care provider. Make sure you discuss any questions you have with your health care provider. Document Revised: 03/19/2021 Document Reviewed: 03/19/2021 [employer] Patient Education 2023 [employer] 12/29/2024 18:43:47 Abdominal Pain, Adult Abdominal Pain, [...] Follow these instructions at home: Medicines Take crlj-dxg-pmsqpgq and prescription medicines only as told by [...] provider. Document Revised: 05/05/2023 Document Reviewed: 05/05/2023 [employer] Patient Education 2023 [employer]. 12/29/2024 18:43:43 Urinary Tract Infection, Adult Urinary [...] Treatment for this condition includes: Antibiotic medicine. Kmsz-ivw-pcyqzro medicines to treat discomfort. Drinking enough water [...] Follow these instructions at home: Medicines Take qouf-dvm-wsfgshe and prescription medicines only as told by [...] provider. Document Revised: 02/23/2021 Document Reviewed: 02/28/2021 [employer] Patient Education 2023 [employer]. Follow Up Care 12/21/2024 11:57:47 With:Miladis Mayberry PA-C, URL Address: When:Within 3 Month(s) [facility] 05-30-2025 NotePatient Education Gastroenterology Abdominal [...] these instructions at home: Medicines ??? Take niig-rsh-npajaxv and prescription medicines only as told by [...] provider. Document Revised: 05/05/2023 Document Reviewed: 05/05/2023 [employer] Patient Education ? 2023 [employer]. Obstetrics and Gynecology Urinary Tract Infection, Adult [...] includes: ??? Antibiotic me (more content not included)...[facility] 12-22-2024 NotePatient Education Gastroenterology Abdominal Bloating When [...] candy. ? Chewing gum. Medicines ??? Take acun-faz-cqdxrrb and prescription medicines only as told by [...] provider. Document Revised: 02/18/2021 Document Reviewed: 02/18/2021 [employer] Patient Education ? 2023 [employer] Urology Dysuria Dysuria is pain or discomfort [...] these instructions at home: Medicines ??? Take qmre-jwq-zxzrdxy and prescription medicines only as told by [...] Keep all follow-up visits. (more content not included)...[facility] Evaluation + Plan note Future Scheduled Tests Radiology* CT Abdomen/Pelvis w/ Contrast 12/20/24 [facility] 05-14-2025 Hospital Discharge instructions Patient Education 12/13/2024 [...] Treatment for this condition includes: Antibiotic medicine. Iznu-xvk-mwctbdc medicines to treat discomfort. Drinking enough water [...] Follow these instructions at home: Medicines Take wttz-tri-pmedcsr and prescription medicines only as told by [...] provider. Document Revised: 02/23/2021 Document Reviewed: 02/28/2021 [employer] Patient Education 2023 [employer]. Follow Up Care 12/13/2024 12:12:46 With:Thania OWENS Address: [address] [place] [address] [facility] (1) When:12/16/2024 16:29:17 Comments:Call the office of [...] weakness, or any new or worsening symptoms. [facility] 05-14-2025 NoteED Patient Education Note Obstetrics and Gynecology [...] this condition includes: ??? Antibiotic medicine. ??? Pgsv-qpj-ehnimql medicines to treat discomfort. ??? Drinking enough [...] these instructions at home: Medicines ??? Take hjdq-kix-ecrtkou and prescription medicines only as told by [...] care provider. Make barbara (more content not included)...[facility] Evaluation + Plan note Diagnostic Tests Pending * Urine Culture 12/13/24 [facility] [id number] Telephone encounter Note* Telephone Encounter - Paul Mcallister RN - 10/06/2024 2:30 PM EST Switch to keflex and add pyridium per Dr. Garibay. Ideally repeat urine culture. Called and spoke to patient. Reviewed above recommendations. Per patient there is a hospital in [facility] where she lives called [facility] that this office has sent lab orders to before. This RN will send urine culture order to hospital and [facility] message with information once that is completed. Preferred pharmacy confirmed. Advised patient that she should follow up in office next week if symptoms are still not improving. Reviewed ER precautions for fever. Patient verbalizes understanding.Patient denies having any other questions/concerns/needs at this time. Patient encouraged to call office back should this change. [id number] Miscellaneous Notes* Telephone Encounter - Paul Mcallister RN - 10/06/2024 2:30 PM EST Switch to keflex and add pyridium per Dr. Garibay. Ideally repeat urine culture. Called and spoke to patient. Reviewed above recommendations. Per patient there is a hospital in [facility] where she lives called [facility] that this office has sent lab orders to before. This RN will [facility] once that is completed. [...] Garibay at this time. documented in this [id number] Telephone encounter Note* Telephone Encounter - Paul [...] sent to Dr. Garibay at this time. [id number] NoteNotify patient she has a UTI. Contact her to treat her with Macrobid 100mg twice daily for 7 days. AUTHENTICATED BY DARLIN ORTEGA, ON 10/02/2024 13:37:49[facility]03-03-2025 History of Present illness Narrative* Darlin [...] a one-week hiatus. 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 [...] histories have been reviewed and updated in [facility] charting. Objective BP 100/70 (BP Location: [...] BOSSMAN. Darlin Ortega MD documented in this [id number] NotePOST-OPERATIVE VISIT Surgery: Robotic Assisted Laparoscopic Excision [...] a one-week hiatus. 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 [...] histories have been reviewed and updated in [facility] charting. Objective BP 100/70 (BP Location: [...] Orders Urinalysis (Completed) Urin (more content not included)...[facility]02-11-2025 NotePlease notify Miladis Cha that her pathology results were consistent with scar tissue. AUTHENTICATED BY DARLIN ORTEGA ON 09/20/2024 09:11:21[facility]02-11-2025 NoteGYNECOLOGY BRIEF POST-OP NOTE Patient Name: Miladis Cha MR #: [id number] ASSESSMENT AND PLAN: S/P robot-assisted surgical procedure [...] After 4:30pm or on weekends, please page *[phone] SUBJECTIVE: The patient reports no acute issues. [...] PM AUTHENTICATED BY RACHEL COE, ON 09/12/2024 12:42:36[facility] Instructions* Patient Instructions* Davonte Ji, EDUCATION SPECIALIST - 09/01/2024 12:36 PM EST Preoperative Medication [...] medications that contain aspirin, such as [place], Pepto- Bismol, Anacin), antiinflammatory medications such as Advil, Motrin, Ibuprofen, Naproxen, Aleve, [place], Pepto-Bismol, Anacin, Diclofenac, Voltaren, Daypro, Etodolac, Ketoprofen, Meloxicam, Piroxicam, Relafen, Nabumetone, etc. Also discontinue Vitamin C, Vitamin E, [place]-3 Fatty Acid, Fish Oil or Lovaza, as [...] the day of surgery. documented in this [id number] Instructions* Pre-Procedure Instructions - Naz Davis RN - 09/01/2024 12:29 PM EST Patient Instructions for [facility]: MAIN OR Prior to surgery: Please contact your surgeon's office for the scheduled time of your surgery. Report to the Surgery Family Waiting Area in the [place] area of [facility] 2 hours prior to your surgery. You may use infection control specialist parking available at the Blue Entrance, or infection control specialist parking/ self-parking at the Green Garage or [...] cut them off if necessary. All nail montserratian must be removed from your fingernails and [...] your surgeon. The expectation is that this flatbed company driver will remain at the hospital for the duration of your procedure. You are advised to have someone stay with you for at least 24 hours after being under anesthesia. [id number] Miscellaneous Notes* Pre-Procedure Instructions - Naz Davis RN - 09/01/2024 12:29 PM EST Patient Instructions for [facility]: MAIN OR Prior to surgery: Please contact your surgeon's office for the scheduled time of your surgery. Report to the Surgery Family Waiting Area in the [place] area of [facility] 2 hours prior to your surgery. You may use infection control specialist parking available at the Blue Entrance, or infection control specialist parking/ self-parking at the Green Garage or [...] cut them off if necessary. All nail montserratian must be removed from your fingernails and [...] your surgeon. The expectation is that this flatbed company driver will remain at the hospital for the duration of your procedure. You are advised to have someone stay with you for at least 24 hours after being under anesthesia. documented in this [id number] Telephone encounter Note* Telephone Encounter - Paul Mcallister RN - 09/01/2024 11:29 AM EST Patient was seen in the office today for pre-op RN only visit. Post-op prescriptions entered after visit and routed to provider to sign. Patient is aware prescriptions will be available to poultry picking machine tender atpharmacy prior to upcoming surgery. Patient verbalizes understanding that prescriptions are only for post- operative use and are not to be taken before surgery. Patient verbalizes understanding to confirm prescriptions are ready for poultry picking machine tender before going to pharmacy to get them. [id number] Miscellaneous Notes* Telephone Encounter - Paul Mcallister RN - 09/01/2024 11:29 AM EST Patient was seen in the office today for pre-op RN only visit. Post-op prescriptions entered after visit and routed to provider to sign. Patient is aware prescriptions will be available to poultry picking machine tender atpharmacy prior to upcoming surgery. Patient verbalizes understanding that prescriptions are only for post- operative use and are not to be taken before surgery. Patient verbalizes understanding to confirm prescriptions are ready for poultry picking machine tender before going to pharmacy to get them. documented in this [id number] History of Present illness Narrative* Paul Mcallister RN - 09/01/2024 11:27 AM EST [facility] [address] [place] [id number] Pre-Operative Visit: 09/01 Date of Surgery: 09/12 Location of Surgery: [facility] Type of Surgery: ROBOTIC ASSISTED LAPAROSCOPIC EXCISION [...] WITH HYDRODISTENTION; Surgeon: Darlin Ortega MD; Location: [facility] Main OR; Service: REAMING MACHINE TENDER-Robotics Nursing Documentation: Pre-op/post-op hand outs reviewed with patient. Patient advised of the appropriate phone numbers tocall for problems or concerns. Any questions addressed/answered at this time. Patient verbalized anunderstanding of all instructions. Post-op pain control- -Prescribed pain medication reviewed with patient -Discussed OnQ pain pump including care instructions as well as removal instructions and weed control inspector number for issues outside of office hours [...] and where to park documented in this [id number] Evaluation + Plan note* Assessment & Plan Note - Darlin Ortega MD - 08/21/2024 12:34 PM ESTAssociated Problem(s): History of multiple miscarriages Patient counseled on habitual miscarriage causes. She states that her primary MUSIC INDUSTRY INTERN thoroughly investigated this. Discussed checking fasting insulin and glucose for insulin resistance diagnosis. Advised on the increased risk of missed AB due to insulin resistance. Advised on reviewing labs performed by her primary MUSIC INDUSTRY INTERN. Patient was advised to send the lab results through [employer]. Discussed performing a hysteroscopy D&C for evaluation of uterine cavity. She states that her primary MUSIC INDUSTRY INTERN diagnosed her with a luteal phase deficit and recommended progesterone in early part of the once she identified that she had conceived. She has not conceived since she was given this advice. [id number] Miscellaneous Notes* Assessment & Plan Note - Darlin Ortega MD - 08/21/2024 12:34 PM ESTAssociated Problem(s): History of multiple miscarriages Patient counseled on habitual miscarriage causes. She states that her primary MUSIC INDUSTRY INTERN thoroughly investigated this. Discussed checking fasting insulin and glucose for insulin resistance diagnosis. Advised on the increased risk of missed AB due to insulin resistance. Advised on reviewing labs performed by her primary MUSIC INDUSTRY INTERN. Patient was advised to send the lab results through [employer]. Discussed performing a hysteroscopy D&C for evaluation of uterine cavity. She states that her primary MUSIC INDUSTRY INTERN diagnosed her with a luteal phase deficit [...] patient, and writing notes. documented in this [id number] Miscellaneous Notes* Assessment & Plan Note - Darlin Ortega MD - 08/21/2024 12:34 PM ESTAssociated Problem(s): History of multiple miscarriages Patient counseled on habitual miscarriage causes. She states that her primary MUSIC INDUSTRY INTERN thoroughly investigated this. Discussed checking fasting insulin and glucose for insulin resistance diagnosis. Advised on the increased risk of missed AB due to insulin resistance. Advised on reviewing labs performed by her primary MUSIC INDUSTRY INTERN. Patient was advised to send the lab results through [employer]. Discussed performing a hysteroscopy D&C for evaluation of uterine cavity. She states that her primary MUSIC INDUSTRY INTERN diagnosed her with a luteal phase deficit [...] patient, and writing notes. documented in this [id number] Miscellaneous Notes* Assessment & Plan Note - Darlin Ortega MD - 08/21/2024 12:34 PM ESTAssociated Problem(s): History of multiple miscarriages Patient counseled on habitual miscarriage causes. She states that her primary MUSIC INDUSTRY INTERN thoroughly investigated this. Discussed checking fasting insulin and glucose for insulin resistance diagnosis. Advised on the increased risk of missed AB due to insulin resistance. Advised on reviewing labs performed by her primary MUSIC INDUSTRY INTERN. Patient was advised to send the lab results through [employer]. Discussed performing a hysteroscopy D&C for evaluation of uterine cavity. She states that her primary MUSIC INDUSTRY INTERN diagnosed her with a luteal phase deficit [...] patient, and writing notes. documented in this [id number] Evaluation + Plan note* Assessment & Plan [...] time spent with patient, and writing notes. [id number] NoteTELEHEALTH VISIT Patient Name: Miladis Cha : 1995 MR #: [id number] SUBJECTIVE: Patient Location: Verified Patient is located in the [facility]. Patient Identification: Verified patient identity by Name [...] that there are some limitations compared to hbcw-tj-eajx evaluations. We elected to proceed. Miladis Cha [...] underwent 2 miscarriages. Her first miscarriage was [place] of 2022 and her second miscarriage was approximately 3 months later, October 2023. She has been unable to conceive since. Her primary MUSIC INDUSTRY INTERN has evaluated her for habitual AB and [...] updated in the chart. Review of Systems REAMING MACHINE TENDER History: Past Medical History: Diagnosis Date Anemia 08/21/2024 Back pain Bladder problem Interstitial cystitis Endometriosis Fibroid 2018 IBS (irritable bowel syndrome) Irregular menstrual cycle 08/19/2020 Migraine headache 08/21/2024 Pelvic congestion syndrome PONV (postoperative nausea and vomiting) Past Surgical History: Procedure Laterality Date BREAST BIOPSY 2020 BREAST LUMPECTOMY 2019 COLONOSCOPY CYSTO HYDRODILATATION N/A 09/12/2024 Procedure: CYSTOSCOPY, HYDRODISTENTION,; Surgeon: Darlin Ortega MD; Location: [facility] Main OR; Service: REAMING MACHINE TENDER-Robotics; Laterality: N/A; ENDOMETRIAL ABLATION 2018 HYSTEROSCOPY DILATION AND CURETTAGE WITH MYOSURE N/A 09/12/2024 Procedure: HYSTEROSCOPY DILATION AND CURETTAGE; Surgeon: Darlin Ortega MD; Location: [facility] Main OR; Service: REAMING MACHINE TENDER-Robotics; Laterality: N/A; LAPAROSCOPY 09/2018 MYOMECTOMY 2019 PELVISCOPY ROBOTIC XI N/A 09/26/2020 Procedure: ROBOTIC ASSISTED LAPAROSCOPIC EXCISION OF ENDOMETRIOSIS, CHROMOPERTUBATION, LEFT OVARIAN CYSTECTOMY, CYSTOSCOPY WITH HYDRODISTENTION; Surgeon: Darlin Ortega MD; Location: [facility] Main OR; Service: REAMING MACHINE TENDER-Robotics PELVISCOPY ROBOTIC XI N/A 09/12/2024 Procedure: ROBOTIC ASSISTED LAPAROSCOPIC EXCISION OF ENDOMETRIOSIS, CHROMOPERTUBATION,; Surgeon: Darlin Ortega MD; Location: [facility] Main OR; Service: REAMING MACHINE TENDER-Robotics; Laterality: N/A; Simple procedure 90-120 minutes SP [...] normal. Vitals reviewed. Exam conducted with a mall plant caretaker present. ASSESSMENT/PLAN: Miladis Cha is a 28 y.o. female who presents for: Problem List Diagnosed Interstitial cystitis Relevant Orders Case Request Operating Room: ROBOTIC ASSISTED LAPAROSCOPIC EXCISION OF ENDOMETRIOSIS, (more content not included)...[facility]01-16-2025 History of Present illness Narrative* Darlin Ortega MD - 08/17/2024 9:01 AM EST TELEHEALTH VISIT Patient Name: Miladis Cha : 1995 MR #: [id number] SUBJECTIVE: Patient Location: Verified Patient is located in the [facility]. Patient Identification: Verified patient identity by Name [...] that there are some limitations compared to clpu-yz-naxv evaluations. We elected to proceed. Miladis Cha [...] underwent 2 miscarriages. Her first miscarriage was [place] of 2022 and her second miscarriage was approximately 3 months later, October 2023. She has been unable to conceive since. Her primary MUSIC INDUSTRY INTERN has evaluated her for habitual AB and [...] updated in the chart. Review of Systems REAMING MACHINE TENDER History: Past Medical History: Diagnosis Date Anemia [...] WITH HYDRODISTENTION; Surgeon: Darlin Ortega MD; Location: [facility] Main OR; Service: REAMING MACHINE TENDER-Robotics Family History Problem Relation Age of Onset [...] normal. Vitals reviewed. Exam conducted with a mall plant caretaker present. ASSESSMENT/PLAN: Miladis Cha is a 28 [...] miscarriage causes. She states that her primary MUSIC INDUSTRY INTERN thoroughly investigated this. Discussed checking fasting insulin and glucose for insulin resistance diagnosis. Advised on the increased risk of missed AB due to insulin resistance. Advised on reviewing labs performed by her primary MUSIC INDUSTRY INTERN. Patient was advised to send the lab results through [employer]. Discussed performing a hysteroscopy D&C for evaluation of uterine cavity. She states that her primary MUSIC INDUSTRY INTERN diagnosed her with a luteal phase deficit [...] Visit. Darlin Ortega MD documented in this [id number] History of Present illness Narrative* Darlin Ortega MD - 08/17/2024 9:01 AM EST TELEHEALTH VISIT Patient Name: Miladis Cha : 1995 MR #: [id number] SUBJECTIVE: Patient Location: Verified Patient is located in the [facility]. Patient Identification: Verified patient identity by Name [...] that there are some limitations compared to wjoh-wl-ktqy evaluations. We elected to proceed. Miladis Cha [...] been unable to conceive since. Her primary MUSIC INDUSTRY INTERN has evaluated her for habitual AB and [...] updated in the chart. Review of Systems REAMING MACHINE TENDER History: Past Medical History: Diagnosis Date Anemia [...] WITH HYDRODISTENTION; Surgeon: Darlin Ortega MD; Location: [facility] Main OR; Service: REAMING MACHINE TENDER-Robotics Family History Problem Relation Age of Onset [...] normal. Vitals reviewed. Exam conducted with a mall plant caretaker present. ASSESSMENT/PLAN: Miladis Cha is a 28 [...] miscarriage causes. She states that her primary MUSIC INDUSTRY INTERN thoroughly investigated this. Discussed checking fasting insulin and glucose for insulin resistance diagnosis. Advised on the increased risk of missed AB due to insulin resistance. Advised on reviewing labs performed by her primary MUSIC INDUSTRY INTERN. Patient was advised to send the lab results through [employer]. Discussed performing a hysteroscopy D&C for evaluation of uterine cavity. She states that her primary MUSIC INDUSTRY INTERN diagnosed her with a luteal phase deficit [...] Visit. Darlin Ortega MD documented in this [id number] History of Present illness Narrative* Darlin Ortega MD - 08/17/2024 9:01 AM EST TELEHEALTH VISIT Patient Name: Miladis Cha : 1995 MR #: [id number] SUBJECTIVE: Patient Location: Verified Patient is located in the [facility]. Patient Identification: Verified patient identity by Name [...] that there are some limitations compared to oizh-xr-qojt evaluations. We elected to proceed. Miladis Cha [...] underwent 2 miscarriages. Her first miscarriage was [place] of 2022 and her second miscarriage was approximately 3 months later, October 2023. She has been unable to conceive since. Her primary MUSIC INDUSTRY INTERN has evaluated her for habitual AB and [...] updated in the chart. Review of Systems REAMING MACHINE TENDER History: Past Medical History: Diagnosis Date Anemia 08/21/2024 Back pain Bladder problem Interstitial cystitis Endometriosis Fibroid 2019 IBS (irritable bowel syndrome) Irregular menstrual cycle 08/19/2020 Migraine headache 08/21/2024 Pelvic congestion syndrome PONV (postoperative nausea and vomiting) Past Surgical History: Procedure Laterality Date BREAST BIOPSY 2020 BREAST LUMPECTOMY 2019 COLONOSCOPY CYSTO HYDRODILATATION N/A 09/12/2024 Procedure: CYSTOSCOPY, HYDRODISTENTION,; Surgeon: Darlin Ortega MD; Location: [facility] Main OR; Service: REAMING MACHINE TENDER-Robotics; Laterality: N/A; ENDOMETRIAL ABLATION 2018 HYSTEROSCOPY DILATION AND CURETTAGE WITH MYOSURE N/A 09/12/2024 Procedure: HYSTEROSCOPY DILATION AND CURETTAGE; Surgeon: Darlin Ortega MD; Location: [facility] Main OR; Service: REAMING MACHINE TENDER-Robotics; Laterality: N/A; LAPAROSCOPY 09/2018 MYOMECTOMY 2019 PELVISCOPY ROBOTIC XI N/A 09/26/2020 Procedure: ROBOTIC ASSISTED LAPAROSCOPIC EXCISION OF ENDOMETRIOSIS, CHROMOPERTUBATION, LEFT OVARIANCYSTECTOMY, CYSTOSCOPY WITH HYDRODISTENTION; Surgeon: Darlin Ortega MD; Location: [facility] Main OR; Service: REAMING MACHINE TENDER-Robotics PELVISCOPY ROBOTIC XI N/A 09/12/2024 Procedure: ROBOTIC ASSISTED LAPAROSCOPIC EXCISION OF ENDOMETRIOSIS, CHROMOPERTUBATION,; Surgeon: Darlin Ortega MD; Location: [facility] Main OR; Service: REAMING MACHINE TENDER-Robotics; Laterality: N/A; Simple procedure 90-120 minutes SP [...] normal. Vitals reviewed. Exam conducted with a mall plant caretaker present. ASSESSMENT/PLAN: Miladsi Cha is a 28 y.o. female who [...] miscarriage causes. She states that her primary MUSIC INDUSTRY INTERN thoroughly investigated this. Discussed checking fasting insulin and glucose for insulin resistance diagnosis. Advised on the increased risk of missed AB due to insulin resistance. Advised on reviewing labs performed by her primary MUSIC INDUSTRY INTERN. Patient was advised to send the lab results through [employer]. Discussed performing a hysteroscopy D&C for evaluation of uterine cavity. She states that her primary MUSIC INDUSTRY INTERN diagnosed her with a luteal phase deficit [...] Visit. Darlin Ortega MD documented in this [id number] History of Present illness Narrative* Su Gotti, [facility] - 07/19/2024 11:30 AM EST REAMING MACHINE TENDER PROBLEM VISIT SUBJECTIVE: HPI Miladis Cha is a 28 y.o. Here for complaint of pelvic pain. Pelvic pain has been worsening in thepast year. Worst pelvic pain she has ever had in the past 1.5 weeks. Went to [facility] for eval last week and ultrasound [...] Adequate water intake. One Red Bull daily. [place] is not painful, lubrication has helped. Having [...] kg (157 lb) BMI27.81 kg/m Physical Exam: Escalator Operator offered for physical exam. Patient declines mall plant caretaker. General Appearance: healthy-appearing, well-nourished, no acute distress [...] referral to Gastroenterology; Future documented in this [id number] NoteGYN PROBLEM VISIT SUBJECTIVE: HPI Miladis Cha is a 28 y.o. Here for complaint of pelvic pain. Pelvic pain has been worsening in the past year. Worst pelvic pain she has ever had in the past 1.5 weeks. Went to [facility] for eval last week and ultrasound [...] Adequate water intake. One Red Bull daily. [place] is not painful, lubrication has helped. Having [...] (157 lb) BMI 27.81 kg/m Physical Exam: Escalator Operator offered for physical exam. Patient declines mall plant caretaker. General Appearance: healthy-appearing, well-nourished, no acute distress [...] Future AUTHENTICATED BY SU GOTTI, ON 07/19/2024 12:21:27[facility] 07-15-2024 Hospital Discharge instructions Patient Education [...] Follow these instructions at home: Medicines Take obzy-jiz-qnuzeix and prescription medicines only as told by [...] provider. Document Revised: 05/05/2023 Document Reviewed: 05/05/2023 [employer] Patient Education 2023 [employer]. Follow Up Care 07/15/2024 18:57:56 With:Jose L Hartley Address: [address], [address] [place] [address]- [phone] Business (1) When:07/20/2024 21:07:22 With:Thania OWENS Address: [address], [place] [address]- Business (1) When:Within 3 Day(s) [facility] 12-14-2024 NoteED Patient Education Note Gastroenterology Abdominal [...] these instructions at home: Medicines ??? Take reeu-hrl-ddtyswb and prescription medicines only as told by [...] provider. Document Revised: 05/05/2023 Document Reviewed: 05/05/2023 [employer] Patient Education ? 2023 [employer].[facility] 07-15-2024 Evaluation + Plan noteExtracted from:Title:ED NoteAuthor:Ephraim Botello DODate:07/15/24 Abdominal pain (R10.9: Unspe cified abdominal pain) Orders: docusate, 100 mg = 1 cap(s), Oral, BID, X 7 day(s), # 14 cap(s), Refills(s) 0, Pharmacy: [facility]/pharmacy #[id number], 160, cm, 07/15/24 19:11:00 EST, Height/Length Dosing, 74.1, kg, 07/15/24 19:11:00 EST, Weight Dosing morphine, 4 mg = 1 mL, Injection, IV Push, Once, Stop date 07/15/24 19:34:00 EST, STAT, Start date 07/15/24 19:34:00 EST, 07/15/24 19:34:00 EST polyethylene glycol 3350, 17 gram, Oral, Daily, dissolve in water before taking, # 527 gram, Refills(s) 0, Pharmacy: [facility]/pharmacy #[id number], 160, cm, 07/15/24 19:11:00 EST, Height/Length Dosing, 74.1, kg, 07/15/24 19:11:00 EST, Weight Dosing Add on Test Basic Metabolic Panel CBC w/ Auto Diff CT Abdomen/Pelvis w/ Contrast eGFR Hepatic Function Panel Lipase Level Saline Lock Insert U Beta Hcg Qual UA with Cult Rflx [facility] 09-18-2024 NotePatient Education Pulmonary Medicine Acute Bronchitis, [...] Follow these instructions at home: ? Take tkhf-smn-rqfqjqt and prescription medicines only as told by [...] and water are not available, use hand loan teller. ? Avoid contact with people who have [...] is easier to cough up. ? Take urap-imn-wsyffdo and (more content not included)...[facility]09-17-2024 Evaluation + Plan note Diagnostic Tests Pending * O & P Exam, Routine 04/18/24 [facility] 09-16-2024 Evaluation + Plan note Future Scheduled Tests Laboratory* O & P Exam, Routine 04/17/24 * Clostridium Difficile PCR 04/17/24 * Enteric Panel by PCR 04/17/24 [facility] 04-01-2024 Evaluation + Plan note Diagnostic Tests Pending * Factor V Leiden 11/01/23 * Protein C Activity 11/01/23 * Protein S-antigen 11/01/23 * Beta-2 Glycoprotein 1 Antibodies, IgA, IgG, IgM 11/01/23 * Antithrombin III Assay 11/01/23 [facility]03-31-2024 Hospital Discharge instructions Patient Education 10/30/2023 22:00:13 Threatened Miscarriage, Xxdd-ny-Vbxw Threatened Miscarriage A threatened miscarriage is when [...] provider. Document Revised: 01/17/2021 Document Reviewed: 01/17/2021 [employer] Patient Education 2022 [employer]. Follow Up Care 10/30/2023 18:17:55 With:Ahsan MENDOZA Address: [address] , [place] [address]- Business (1) When:11/02/2023 21:37:01 Comments:Please follow-up with Dr. Mendoza on Wednesday. Until you are seen by him to rest and not put anything in the vagina. Please follow-up with your primary care doctor and MUSIC INDUSTRY INTERN for further evaluation management. Return to ED for any new or worsening symptoms. With:Thania OWENS Address: [address] [place] [address], [place] [address]- Business (1) When:Within 3 Day(s) [facility]03-30-2024 Evaluation + Plan noteExtracted from: Title:ED NoteAuthor:Libby Ham DO ADate:10/30/23 Threatened miscarriage (O20. 0: Threatened ) Orders: Urinary Catheter Insertion US 1st Trimester US Transvaginal [facility]03-06-2024 Hospital Discharge instructions Patient Education 10/06/2023 12:00:43 [...] by mouth or applied to theskin. Take uxiw-gss-bitcqwv and prescription medicines only as told by [...] provider. Document Revised: 11/21/2020 Document Reviewed: 10/30/2020 [employer]end Patient Education 2022 [employer]. Follow Up Care 10/06/2023 11:02:01 With:KAYLIN GIL FAAFP, Thania Bunch, PATRICIA, PED Address: [address], [place] [address]- When:10/09/2023 [facility]12-14-2023 Hospital Discharge instructions Patient Education 07/15/2023 14:27:00 [...] to keep your urine pale yellow. Take jpyh-imy-gpnzbmc and prescription medicines only as told by [...] provider. Document Revised: 04/01/2021 Document Reviewed: 04/01/2021 [employer]end Patient Education 2022 [employer]. Follow Up Care 07/15/2023 08:27:16 With:Ahsan MENDOZA Address: [address] , [place] [address] Business (1) When:07/18/2023 14:05:09 [facility]10-30-2023 Telephone encounter Note* Telephone Encounter - Ann Marie Miller RN - 05/31/2023 5:32 PM EDT Pt left message on Refill line requesting refill of Urogesic blue. Pt has annual scheduled on 09/29/23. Request routed to Melissa West CNP for approval. [id number] Miscellaneous Notes* Telephone Encounter - Ann Marie Miller RN - 05/31/2023 5:32 PM EDT Pt left message on Refill line requesting refill of Urogesic blue. Pt has annual scheduled on 09/29/23. Request routed to Melissa West CNP for approval. documented in this [id number] NoteHNO ID: [id number] Author: Mildais Butler, DO Service: ? Author Type: Physician Type: Progress Notes Filed: 11/04/2022 7:53 PM Note Text: BREAST SURGERY REASON FOR TODAY'S VISIT: Patient presents with: Breast Problem I have communicated my name and active licensure. The patient's identity and physical location were verified at the time of this visit. Either the patient or their legal payable representative has been informed of the risks [...] with her boyfriend Jose Luis to the [facility] for an opinion regarding right [...] nipple discharge, but is (more content not included)...[facility] [id number] History of Present illness Narrative* Miladis Butler, DO - 10/28/2022 3:19 PM EDT BREAST SURGERY REASON FOR TODAY'S VISIT: Patient presents with: Breast Problem I have communicated my name and active licensure. The patient's identity and physical location wereverified at the time of this visit. Either the patient or their legal payable representative has been informed of the risks [...] with her boyfriend Jose Luis to the [facility] for an opinion regarding right [...] how she would like to proceed. Miladis Butler DO Breast Surgery All questions were [...] with more than 50% of the total ezwc-vq-zpde (virtual) time of thevisit in counseling / coordination of care. documented in [facility] Miscellaneous Notes* Telephone Encounter - Bella Barrera RN - 10/12/2022 1:44 PM EDT Attempted to reach patient re: appointment. No answer. Message left with callback number. Bella Barrera RN documented in [facility] History of Present illness Narrative* Marlys West CNP - 10/09/2022 11:41 AM EST [facility] [address] [facility] [address] Bladder Instillation Miladis Cha is a 26 [...] CNP 10/09/22 11:41 AM documented in this [id number] Instructions* Patient Instructions* Marlys West CNP - 10/09/2022 11:35 AM EST What is interstitial cystitis/bladder pain syndrome? Interstitial cystitis (mv-xbz-mfuzr-emery s?-st? t?s)/bladder pain syndrome, or as we [...] as the cause is better understood. 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 webstie and pamphlet given. https://www.urologyhealth.org/educational-resources/interstitial-cystitis/bladde i-kzln-fpnxhogy www.ichelp.org documented in this [id number] NoteHNO ID: [id number] Author: RT Catherine(R) Service: ? Author Type: [...] BY: RT Catherine(R) October 07, 2022 11:41 [facility]03-08-2023 NoteHNO ID: [id number] Author: RT Emma(R) Service: Radiology Author Type: Sewing Machine Mechanic Type: Progress Notes Filed: 10/07/2022 8:09 AM [...] Cha DATE: October 07, 2022 TIME: 7:59 [facility]03-08-2023 History of Present illness Narrative* RT Emma(R) [...] 2022 TIME: 7:59 AM documented in this [facility] Hospital Discharge instructions Patient Education 10/02/2022 18:25:37 [...] medicines. These include steroids, antibiotics, and some cyho-bdn-enuuxzn medicines, such as aspirin or ibuprofen. Having [...] Follow these instructions at home: Medicines Take bgpo-zjk-pfoyfts and prescription medicines only as told by [...] 07/13/2002 Document Revised: 12/06/2018 Document Reviewed: 12/06/2018 NetSpend Patient Education 2019 [employer] Follow Up Care 10/02/2022 13:55:10 With:Malcolm LU Address: [address] [place] [address] Business (1) When:10/05/2022 17:57:54 With:Maryann Rashid Address:Unknown When:10/05/2022 17:57:51 [facility]01-24-2023 NoteHNO ID: [id number] Author: Miladis Butler, DO Service: ? Author [...] with her boyfriend Jose Luis to the [facility] for an opinion regarding right [...] discharge Plan: MRI B (more content not included)...[facility] [id number] Nurse Note * Bella Barrera RN - [...] anticoagulants: no Do you follow with a agricultural equipment salesperson on a regular basis? No Instruction: Monthly self breast exams Exercise routine Healthy diet Patient stated understanding of information received today. documented in this encounter[facility] History of Present illness Narrative* Miladis Butler DO - 08/25/2022 2:00 PM EST NEW BREAST CONSULTATION SERVICE DATE: 08/24/2022 Consultation requested by Marie So for an opinion regarding Miladis Cha. REASON FOR TODAY'S VISIT: Patient presents with: Breast Problem HISTORY AND CHIEF COMPLAINT: Miladis Cha is a 26 year old female who presents with her boyfriend Jose Luis to the [facility] for an opinion regarding right [...] team to continue high risk management. Miladis Butler DO Breast Surgery All questions were [...] with more than 50% of the total wzyz-ol-rwii time of the visit in counseling / coordination of care. Medical Decision Making: Problems: Moderate: New problem with uncertain prognosis Data: Unique test result(s) reviewed: 1 Unique test(s) ordered: 2 Independent interpretation of test from other physician/QHCP Discussed management or test w/ external physician/QHCP/source Risk: Low: Low risk from testing/treatment Medical Decision Making Level: 4 - Moderate documented in this encounter[facility] Hospital Discharge instructions Patient Education 08/05/2022 19:28:45 [...] height. This can be done either in [place]e ([place] or metric measurements. Note that charts are available to help you find your BMI quickly and easily without having to do these calculations yourself. To calculate your BMI in [place]e ([place] measurements, your health care provider will: [...] medical problems. BMI can be measured using Gabonese measurements or metric measurements. To interpret your [...] 03/30/2005 Document Revised: 07/01/2018 Document Reviewed: 06/01/2018 NetSpend Patient Education 2020 [employer]. 08/05/2022 19:28:41 Lymphadenopathy Lymphadenopathy Lymphadenopathy means that [...] at home: Get plenty of rest. Take jsup-mrn-opxvabq and prescription medicines only as told by your health care provider. Your health care provider may recommend dduq-jfs-iacmasz medicines for pain. If directed, apply heat [...] 04/27/2009 Document Revised: 07/01/2018 Document Reviewed: 06/03/2018 Elsevier Patient Education 2020 Elsevier Inc. 08/05/2022 19:28:35 Breast Tenderness Breast Tenderness Breast [...] your breasts are very tender. Medicines Take ilxa-wzs-ipmxxty and prescription medicines only as told by [...] 07/01/2009 Document Revised: 12/11/2019 Document Reviewed: 12/11/2019 [employer]Spend Patient Education 2019 [employer]. [facility] 12-01-2022 History of Present [...] a significantly less amount of relational stress. [place] is significantly improved with the new relationship [...] WITH HYDRODISTENTION; Surgeon: Darlin Ortega MD; Location: [facility] Main OR; Service: REAMING MACHINE TENDER-Robotics Allergen Patch Test No documentation. Active Home [...] Suh PA-C [facility] documented in this [id number] History of Present illness Narrative* Joanna Suh PA-C - 04/02/2022 11:30 AM EDT [facility] [address] [facility] [address] ANNUAL EXAM Patient Name: Miladis Cha : [...] WITH HYDRODISTENTION; Surgeon: Darlin Ortega MD; Location: [facility] Main OR; Service: REAMING MACHINE TENDER-Robotics Social History Socioeconomic History Marital status: Spouse [...] 4. Myofascial muscle pain Ambulatory Ref to [facility] (PT/OT/ST) 5. Pelvic pain in female Ambulatory Ref to [facility] (PT/OT/ST) - Reviewed diet and exercise recommendations. [...] Joanna Suh PA-C 04/02/22 documented in this [id number] History of Present illness Narrative* Connie Peterson CNP - 06/18/2022 12:24 PM EST [facility] [address] [facility] [address] BLADDER INSTILLATION PROCEDURE NOTE Patient Name: Miladis Cha : 1995 MR #: [id number] Indication: pelvic pain Purpose and procedure discussed with patient. All questions answered. Verbal consent obtained. Previous bladder instillation none Current symptoms: Nocturia, discolored dark brown to yellow urine, urgency, frequency, flank pain. Procedure: The patient was placed in lithotomy position. Urethra visualized and cleaned with betedine. A 12 Scottish catheter was introduced into the bladder using [...] note No data available for this section [facility] Future Appointments Appointment Date:08/10/2022 03:00:00 PM Scheduled Provider: [facility] Appoint[facility] Type:US Breast (FT) Future Scheduled Tests Radiology* US Breast Unilateral Rt Complete 08/10/22 [facility] Evaluation + Plan note Future Appointments Appointment Date:08/14/2022 08:00:00 AM Scheduled Provider:Phoenix Gonzalez MD Location:[facility] [address]ointment Type:[address] Plan note[facility] [place] Evaluation + Plan note Future Appointments Appointment Date:01/15/2025 05:40:00 PM Scheduled Provider:Dia Ware Location:[facility] Appointment Type:FM Open Future Scheduled Tests Radiology* CT Abdomen/Pelvis w/ Contrast 12/20/24 [facility] evaluation + Plan note Future Appointments Appointment Date:01/15/2025 05:40:00 PM Scheduled Provider:Dia Ware Location:[facility] Appointment Type:FM Open Diagnostic Tests Pending * Urine Culture 12/20/24 Future Scheduled Tests Radiology* CT Abdomen/Pelvis w/ Contrast 12/20/24 [facility] evaluation + Plan note Future Appointments Appointment Date:01/15/2025 05:40:00 PM Scheduled Provider:Dia Ware Location:[facility] Appointment Type:FM Open Appointment Date:03/23/2025 08:00:00 AM Scheduled Provider:Miladis Mayberry PA-C Location:[facility] Appointment Type:URO Office Visit Future Scheduled Tests Radiology* US Renal 01/05/25 * CT Abdomen/Pelvis w/ Contrast 12/20/24 [facility] evaluation + Plan note Future Appointments Appointment Date:01/15/2025 05:40:00 PM Scheduled Provider:Dia Ware Location:[facility] Appointment Type:FM Open Appointment Date:03/23/2025 08:00:00 AM Scheduled Provider:Miladis Mayberry PA-C Location:[facility] Appointment Type:URO Office Visit Diagnostic Tests Pending * Urine Culture 12/29/24 Future Scheduled Tests Radiology* US Renal 01/05/25 * CT Abdomen/Pelvis w/ Contrast 12/20/24 [facility] evaluation + Plan note Future Appointments Appointment Date:01/11/2025 07:00:00 AM Scheduled Provider: [facility] Appointment Type:US Abdominal/Pelvis (FT) Appointment Date:01/15/2025 05:40:00 PM Scheduled Provider:Dia Ware Location:[facility] Appointment Type:FM Open Appointment Date:02/08/2025 11:00:00 AM Scheduled Provider:Sumaya Park MD Location:[facility] Appointment Type:URO Office Visit Future Scheduled Tests Radiology* US Renal 01/11/25 * CT Abdomen/Pelvis w/ Contrast 12/20/24 [facility] evaluation + Plan note Future Appointments Appointment Date:01/15/2025 05:40:00 PM Scheduled Provider:Dia Ware Location:[facility] Appointment Type:FM Open Appointment Date:02/08/2025 11:00:00 AM Scheduled Provider:Sumaya Park MD Location:[facility] Appointment Type:URO Office Visit Future Scheduled Tests Radiology* CT Abdomen/Pelvis w/ Contrast 12/20/24 [facility] evaluation + Plan note Future Appointments Appointment Date:02/23/2025 10:00:00 AM Scheduled Provider: Location:[facility] Appointment Type:Urology CALL PAT FT Appointment Date:02/26/2025 08:00:00 AM Scheduled Provider: Location:[facility] Appointment Type:Urology FT Future Scheduled Tests Radiology* CT Abdomen/Pelvis w/ Contrast 12/20/24 [facility] Evaluation note* Diagnosis Well woman exam- Primary [...] vaginitis and vulvovaginitis documented in this encounter [facility] note* Diagnosis Interstitial cystitis- Primary Chronic interstitial cystitis Dark yellow-colored urine documented in this encounter [facility] note* Diagnosis Myofascial muscle pain- Primary Pelvic pain in female Unspecified symptom associated with female genital organs Interstitial cystitis Chronic interstitial cystitis Encounter for other general counseling or advice on contraception documented in this encounter [facility] note* Diagnosis Mass of upper outer quadrant of right breast- Primary Nipple discharge Other sign and symptom in breast Family history of breast cancer Family history of malignant neoplasm of breast At high risk for breast cancer Mastalgia Mastodynia documented in this encounter [facility] note* Diagnosis Mass of upper outer quadrant of right breast Nipple discharge Other sign and symptom in breast Family history of breast cancer Family history of malignant neoplasm of breast At high risk for breast cancer Mastalgia Mastodynia documented in this encounter [facility] note* Diagnosis Mass of upper outer quadrant of right breast Nipple discharge Other sign and symptom in breast Family history of breast cancer Family history of malignant neoplasm of breast At high risk for breast cancer Mastalgia Mastodynia documented in this encounter [facility] note* Diagnosis Interstitial cystitis- Primary Chronic interstitial cystitis documented in this encounter [facility] note* Diagnosis Breast pain, right- Primary Mastodynia Nipple discharge Other sign and symptom in breast Family history of breast cancer Family history of malignant neoplasm of breast documented in this encounter [facility] note* Diagnosis Interstitial cystitis Chronic interstitial cystitis documented in this encounter [facility] note* Diagnosis Pelvic pain in [...] Diarrhea, unspecified type [facility]* Diagnosis Pelvic pain in female Unspecified [...] aborter without current [facility] [place] Diagnosis Pelvic pain in female Unspecified [...] of multiple miscarriages [facility] Diagnosis Pelvic pain in female Unspecified [...] of multiple miscarriages [facility] Diagnosis Pelvic pain in female Unspecified [...] of multiple miscarriages [facility] Diagnosis Pelvic pain in female Unspecified [...] of multiple miscarriages [facility] Diagnosis Pelvic pain in female Unspecified [...] robot-assisted surgical procedure [facility]* Diagnosis Pelvic pain in female Unspecified [...] without hematuria- Primary [facility]* Diagnosis Pelvic pain in female Unspecified [...] Chronic interstitial cystitis documented in this encounter [facility] note* Diagnosis Pelvic pain in [...] without hematuria- Primary documented in this encounter [facility] noteNo assessment information availableTrihealth Work Phone: Evaluation note* Diagnosis History of miscarriage Personal history of other genital system and obstetric disorders Threatened miscarriage (HHS-HCC) Threatened , unspecified as to episode of care Missed menses Positive urine test (HHS-HCC) [facility] No data available for this section [facility] Additional Instructions We evaluated you [...] immediately to the emergency department for further evaluation.[facility] Work Phone: Progress note No data available for this section [facility] Reason for referral (narrative) Referred by: Phoenix Gonzalez MD [facility] General [facility] [place] Reason for referral (narrative)* Diagnostic Procedure Only (Routine) - AuthorizedSpecialtyDiagnoses / ProceduresReferred By Contact Referred To ContactBR IMAGING Diagnoses Mass of upper outer quadrant of right breast Nipple discharge Family history of breast cancer At high risk for breast cancer Mastalgia Procedures CLEO DIAGNOSTIC BILAT DIAGNOSTIC MAMMOGRAPHY COMPUTER-AIDED DETCJ BI Miladis Butler DO [address] [place] [address] Br Imaging [address] [address] Referral IDStatusReasonStart DateExpiration DateVisits RequestedVisits [id number] Auto-Generated Referral * Diagnostic Procedure Only (Routine) - AuthorizedSpecialtyDiagnoses / ProceduresReferred By ContactReferred To ContactBR IMAGING Diagnoses Mass of upper outer quadrant of right breast Nipple discharge Family history of breast cancer At high risk for breast cancer Mastalgia Procedures US BREAST LTD RT US BREAST UNI REAL TIME WITH IMAGE LIMITED Miladis Butler DO [address] [place] [address] [facility] Imaging [address] [place] [address] Referral IDStatusReasonStart DateExpiration DateVisits RequestedVisits [id number] Auto-Generated Referral * MRI/CT (Routine) - Pending ReviewSpecialtyDiagnoses / ProceduresReferred By ContactReferred To ContactMR IMAGING Diagnoses Mass of upper outer quadrant of right breast Nipple discharge Family history of breast cancer At high risk for breast cancer Mastalgia Procedures MRI BREAST WO/W IVCON BILAT MRI BREAST WITHOUT&WITH CONTRAST W/CAD BILATERAL Miladis Butler DO [address] [place] [address] Mr Imaging Referral IDStatusReasonStart DateExpiration DateVisits RequestedVisits [id number] Auto-Generated Referral [facility] for referral (narrative)* Diagnostic Procedure Only (Routine) - ClosedSpecialtyDiagnoses / ProceduresReferred By ContactReferred To ContactBR IMAGING Diagnoses Mass of upper outer quadrant of right breast Nipple discharge Family history of breast cancer At high risk for breast cancer Mastalgia Procedures US BREAST LTD RT US BREAST UNI REAL TIME WITH IMAGE LIMITED Miladis Butler DO [address] [place] [address] Br Imaging [address] [place] [address] Referral IDStatusReasonStlakeland DateExpiration DateVisits RequestedVisits [id number] Auto-Generated Referral [facility] for referral (narrative)No reason for referral information availableWilson Street Hospital Ctr Work Phone: Reason for visit Narrative* Diagnostic Procedure Only (Routine) - ClosedSpecialtyDiagnoses / ProceduresReferred By ContactReferred To ContactBR IMAGING Diagnoses Mass of upper outer quadrant of right breast Nipple discharge Family history of breast cancer At high risk for breast cancer Mastalgia Procedures US BREAST LTD RT US BREAST UNI REAL TIME WITH IMAGE LIMITED Miladis Butler, DO [address] [place] [address] [facility] [address] [facility] [place] [address] Referral IDStatusReasonStart DateExpiration DateVisits RequestedVisits [id number] Auto-Generated Referral / [facility] Summary Purpose Family History No Family History [...] Ortega MD - 08/14/2020 3:51 PM EST [facility] [address] [facility] [address] CONSULT VISIT Patient Name: Miladis Cha : 1995 MR #: [id number] SUBJECTIVE: Miladis Cha is a 24 y.o. [...] reports she had a laparoscopy procedure in [id number]. She notes family hx (mom and maternal grandma) of endometriosis. The patient is otherwise well and without fevers, chills, CP, SOB, chest papitations, severe abdominal or pelvic pain, nausea, vomiting, bladder or bowel issues. Patient's review of systems, past medical, surgical, social, and family histories have been reviewed and updated in the chart. 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 documented in this encounter* Darlin Ortega MD - 10/09/2020 12:03 PM EST [facility] [address] [place] [address] [facility] [phone] POST-OPERATIVE VISIT Surgery: ROBOTIC ASSISTED LAPAROSCOPIC EXCISION [...] histories have been reviewed and updated in [facility] charting. Physical Exam: Physical Exam Constitutional: [...] cystitis Discharge Instructions * Instructions* Katarzyna Fontaine, EDUCATION SPECIALIST - 09/24/2020 Follow preprinted discharge instructions given [...] your doctor if you can take an vbzr-wla-mtvvmiw medicine. Take your pain medicine as soon [...] Log into your personal health record on [email or web address] and enter [id number] in the Education box [...] Pelvic pain in female Darlin Ortega MD [address] [place] [address] SpecialtyDiagnoses / ProceduresReferred By ContactReferred To Contact Rehabilitation Diagnoses Myofascial muscle pain Pelvic pain in female Joanna Suh PA-C [address] [place] [address] Referral IDStatusReasonStart DateExpiration DateVisits RequestedVisits [id number] / Procedures Referred By ContactReferred To ContactMR IMAGING Diagnoses Mass of upper outer quadrant of right breast Nipple discharge Family history of breast cancer At high risk for breast cancer Mastalgia Procedures MRI BREAST WO/W IVCON BILAT MRI BREAST WITHOUT&WITH CONTRAST W/CAD BILATERAL Miladis Butler DO [address] [place] [address] Mr Imaging Referral IDStatusReasonStlakeland DateExpiration DateVisits RequestedVisits [id number] Auto-Generated Referral /[id number] / ProceduresReferred By ContactReferred To Contact Diagnoses Interstitial cystitis Marlys West, EDUCATION SPECIALIST [address] [place] [address] Referral IDStatusReasonStlakeland DateExpiration DateVisits RequestedVisits [id number] Chief Complaint and Reason for Visit Chief Complaint Admit Date abd pain, vomiting May 10, 2025 7: 51am Chief Complaint Admit Date abd pain, vomiting May 10, 2025 7: 51am May 12, 2025 9 :44am Additional Source Comments INFORMATION SOURCE (unrecogn ized section and content) DATE CREATED AUTHOR 07/10/2018 [facility] DATE CREATED AUTHOR AUTHOR'S ORGANIZ ATION 11/15/2020 [facility] DATE CREATED AUTHOR AUTHOR'S ORGANIZ ATION 10/09/2022 [facility] DATE CREATED AUTHOR AUTHOR'S ORGANIZ ATION 11/08/2022 [facility] DATE CREATED AUTHOR AUTHOR'S ORGANIZ ATION 04/20/2024 [facility] DATE CREATED AUTHOR AUTHOR'S ORGANIZ ATION 04/25/2024 [facility] DATE CREATED AUTHOR AUTHOR'S ORGANIZ ATION 04/27/2024 [facility] DATE CREATED AUTHOR AUTHOR'S ORGANIZ ATION 07/18/2024 [facility] DATE CREATED AUTHOR AUTHOR'S ORGANIZ ATION 10/03/2024 [facility] DATE CREATED AUTHOR AUTHOR'S ORGANIZ ATION 10/07/2024 [facility] DATE CREATED AUTHOR AUTHOR'S ORGANIZ ATION 10/09/2024 [facility] DATE CREATED AUTHOR AUTHOR'S ORGANIZ ATION 12/14/2024 [facility] DATE CREATED AUTHOR AUTHOR'S ORGANIZ ATION 12/28/2024 [facility] DATE CREATED AUTHOR AUTHOR'S ORGANIZ ATION 12/30/2024 [facility] DATE CREATED AUTHOR AUTHOR'S ORGANIZ ATION 01/01/2025 [facility] DATE CREATED AUTHOR AUTHOR'S ORGANIZ ATION 01/05/2025 [facility] DATE CREATED AUTHOR AUTHOR'S ORGANIZ ATION 01/06/2025 [facility] DATE CREATED AUTHOR AUTHOR'S ORGANIZ ATION 03/27/2025 [facility] DATE CREATED AUTHOR AUTHOR'S ORGANIZ ATION 05/14/2025 [facility] DATE CREATED AUTHOR AUTHOR'S ORGANIZ ATION 05/18/2025 [facility] DATE CREATED AUTHOR AUTHOR'S ORGANIZ ATION 05/22/2025 [facility] DATE CREATED AUTHOR AUTHOR'S ORGANIZ ATION 05/23/2025 [facility] Reason for Visit (unrecogniz ed section and content) ReasonOnset DateCommentsMedication [id number] PainPt c/o pain with IC and menses. [...] Irritable bowel syndrome, unspecified type [K58.9] Procedures WI LAPAROSCOPY W TOT HYSTERECTUTERUS <=250 GRAM W TUBE/OVARY WI LAP,FULGURATE/EXCISE LESIONS WI REOPEN FALLOPIAN TUBE,CHROMOTUBATION WI CYSTOSCOPY,DIL BLADDER,GEN ANESTH WI INSERT INTRAUTERINE DEVICE Darlin Ortega MD [address] [facility] [place] [address] ReasonOnset DateCommentsPFT & Uuxvulivbllti23/10/2021ReasonCommentsPost-opRALS, EOE, chromopertubation, left ovarian cystectomy, cystoscopy with hydrodistention done on 09/26/20.ReasonOnset DateCommentsLotrisone Cream Rx08/16/2020eason CommentsAnnual ExamPt presents today for an annual duct layer exam with pap.Reason CommentsProcedureBladder Instillation.ReasonCommentsFollow-upPt presents today [...] WITHOUT&WITH CONTRAST W/CAD BILATERAL Miladis Butler DO [address] [place] [address] Mr Imaging Referral IDStatusReasonStart DateExpiration DateVisits RequestedVisits [id number] Auto-Generated Referral /[id number]pqegfp Installation.ReasonComments AppointmentReasonCommentsBreast ProblemReasonOnset DateCommentsMedication Refill 05/31/2023ReasonCommentsPelvic PainPt [...] PROTOCOL* *GLYCEMIC CONTROL PROTOCOL* on 09/12 @ HReasonCommentsPre-operative Medical Risk StratificationReasonOnset DateCommentsPost-op Pain Meds09/01/2024 ReasonCommentsPost-opPt presents today for a post op visit. Pt had an excision on 09/12/24. Pt states she is doing well, she got a rash from the surgical glue, but she took it off and it did get better.ReasonCommentsER Follow-upPt was seen on 05/10/20[place] [facility] [place]flank pain. Assessment & Plan [...] evaluated in the office today by Dr. Gayatri Ortega. Prescriptions for Hydroxyzine and Amitriptyline ordered after office visit. Rxs entered and routed to provider to sign. PFT referral entered. Pt lives in [place], [place] (near [place]). This nurse called [facility], no answer. LVM requesting a return call to see if they offer PFT. P: [phone]. No fax number listed on their website. [...] Miladis Cha Admit Date: [id number] MR #: [id number] : 1995 Physicians: Thania Owens DO (Family); [...] file Gets together: Not on file Attends zoroastrianism service: Not on file Active member of [...] (unrecognized section and content) Patient Instructions for [facility]: Prior to arrival: ? Please be sure to wear loose, comfortable clothing and non-skid shoes ? Bring your health insurance information and a photo ID, as well as your Living Will or Durable Power of Gastroenterology Professor for Healthcare if it is available to you. ? Bring your cane/walker any applicable assistive device. If you currently use a CPAP, please bringthis device with you on the day of surgery. ? Bring a list of your medications with the name of the medication, dose and how often you are taking it. Be sure to include herbal preparations and lggr-dev-okjgypr medications on this list. ? Carefully follow [...] of lotions, perfumes or powders. All nail montserratian is to be removed from fingernails and [...] day of your surgery/procedure. ? Parking at [facility] is free. Please park in the lot in front of the main lobby. Enter the Main Entrance where a Medical Microbiologist Liaison at the information desk will greet [...] and content) Team MemberRelationshipSpecialtyStart DateEnd Date Thania Owens DO [address] [place] [phone] PCP - GeneralFamily Hpvlrfzw13/3/20Team MemberRelationshipSpecialtyStart DateEnd Date Thania Owens DO [address] [place] [address] PCP - [facility] Qkremehj02/3/20Team MemberRelationshipSpecialtyStart DateEnd Date Thania Owens, DO [address] [place] [address] PCP - [facility] Xocfyeom24/3/20Team MemberRelationshipSpecialtyStart DateEnd Date Thania Owens DO [address] [place] [address] PCP - [facility] Grhsndus20/3/20Te MemberRelationshipSpecialtyStart DateEnd Date Thania Owens DO [address] [place] [address] PCP - [facility] Frzvhvuk32/3/20Te MemberRelationshipSpecialtyStart DateEnd Date Thania Owens DO [address] [place] [address] PCP - [facility] Wrgzaspi50/3/20 Marlys West, EDUCATION SPECIALIST [address] [place] [address] Obstetrics/Gynecology10/22/22 Connie Peterson, EDUCATION SPECIALIST [address] [place] [address] Nurse PractitionerObstetrics/Aigqvkfidr11/20/23Te MemberRelationshipSpecialty Start DateEnd Date Thania Owens DO [address] [place] [address] PCP - GeneralFamily Zyqfabbc48/3/20 Marlys West, AUTUMN [address] [place] [address] Obstetrics/Gynecology10/22/22 Connie Peterson, AUTUMN [address] [place] [address] Nurse PractitionerObstetrics/Tdxxfsvcsc65/20/23 Joanna Suh [facility]-C [facility] [address] Physician Assistant09/28/23 Su Gotti, EDUCATION SPECIALIST [address] [place] [address] Nurse PractitionerNurse Iipudhxypgcg13/18/24Team MemberRelationshipSpecialty Start DateEnd Date Thania Owens DO [address] [place] [address] PCP - GeneralFamily Ggplcvcw65/3/20 Marlys West, AUTUMN [address] [place] [address] Obstetrics/Gynecology10/22/22 Connie Peterson, EDUCATION SPECIALIST [address] [place] [address] Nurse PractitionerObstetrics/Drbzmjxygf49/20/23 Joanna Suh PA-C [address] [address] Physician Assistant09/28/23 Su Gotti, EDUCATION SPECIALIST [address] [address] Nurse PractitionerNurse Mdyqfxbwhegi19/18/24Team MemberRelationshipSpecialty Start DateEnd Date Thania Owens DO [address] [place] [address] [facility] - [facility] Feixbdaz73/3/20 Marlys West, AUTUMN [address] [place] [id number] Obstetrics/Gynecology10/22/22 Connie Peterson, EDUCATION SPECIALIST [address] [place] [address] Nurse PractitionerObstetrics/Fzrgrrxshg35/20/23 Joanna Suh PA-C [address] [place] [address] Physician Assistant09/28/23 Su Gotti, EDUCATION SPECIALIST [address] [place] [address] Nurse PractitionerNurse Cerqpwiogezr09/18/24Team MemberRelationshipSpecialty Start DateEnd Date Thania Owens DO [address] [place] [address] PCP - GeneralFamily Bpuvifkl84/3/20 Marlys West CNP [address] [place] [address] Obstetrics/Gynecology10/22/22 Connie Peterson, AUTUMN [address] [place] [address] Nurse PractitionerObstetrics/Knjefdkjvj70/20/23 Joanna Suh PA-C [address] [facility] [place] [address] Physician Assistant09/28/23 Su Gotti, EDUCATION SPECIALIST [address] [facility] [place] [address] Nurse PractitionerNurse Igvqycbdwvbg34/18/24Team MemberRelationshipSpecialty Start DateEnd Date Thania Owens DO [address] [place] [phone] PCP - GeneralFamily Knpxuexu76/3/20 Marlys West CNP [address] [facility] [place] [address] Obstetrics/Gynecology10/22/22 Connie Peterson, AUTUMN [address] [facility] [place] [address] Nurse PractitionerObstetrics/Qqunmzsrdt97/20/23 Joanna Suh PA-C [address] [place] [address] Physician Assistant09/28/23 Su Gotti, EDUCATION SPECIALIST [address] [place] [address] Nurse PractitionerNintegris [facility] [place] Xchpormgpnyo16/18/24 Darlin Ortega MD [address] [place] [address] Consulting PhysicianObstetrics/Gynecology09/01/24Team MemberRelationshipSpecialty Start DateEnd Date Thania Owens DO [address] [place] [phone] PCP - GeneralFamily Uxaqvbfs93/3/20 Marlys West, AUTUMN [address] [place] [address] Obstetrics/Gynecology10/22/22 Connie Peterson, AUTUMN [address] [place] [address] Nurse PractitionerObstetrics/Qiiquectkp80/20/23 Joanna Suh PA-C [address] [place] [address] Physician Assistant09/28/23 Su Gotti, EDUCATION SPECIALIST [address] [place] [address] Nurse PractitionerNurse Muvvbbcifrvg35/18/24 Darlin Ortega MD [address] [place] [address] Consulting PhysicianObstetrics/Gynecology09/01/24Team MemberRelationshipSpecialty Start DateEnd Date Thania Owens DO [address] [place] [phone] PCP - Generalmily Zrpcftkc44/3/20 Marlys West, AUTUMN [address] [place] [address] Obstetrics/Gynecology10/22/22 Connie Peterson, AUTUMN [address] [place] [address] Nurse PractitionerObstetrics/Cdynpxnyao12/20/23 Joanna Suh PA-C [address] [place] [address] Physician Assistant09/28/23 Su Gotti, EDUCATION SPECIALIST [address] [place] [address] Nurse PractitionerNurse Hrqiynlormpp76/18/24 Darlin Ortega MD [address] [place] [address] Consulting PhysicianObstetrics/Gynecology09/01/24Team MemberRelationshipSpecialty Start DateEnd Date Thania Owens DO [address] [place] [phone] PCP - GeneralFamily Rnboznoi70/3/20 Marlys West, AUTUMN [address] [place] [address] Obstetrics/Gynecology10/22/22 Connie Peterson, AUTUMN [facility] [place] [address] Nurse PractitionerObstetrics/Wcqjrjcyhi49/20/23 Joanna Suh PA-C [address] [place] [address] Physician Assistant09/28/23 Su Gotti, EDUCATION SPECIALIST [address] [place] [address] Nurse PractitionerNintegris [facility] [place] Wualaeishswf74/18/24 Darlin Ortega MD [facility] [place] [address] Consulting PhysicianObstetrics/Gynecology09/01/24Te MemberRelationshipSpecialty Start DateEnd Date Thania Owens DO [address] [place] [phone] PCP - GeneralFamily Kyqwzzwr41/3/20 Marlys West, AUTUMN [address] [place] [address] Obstetrics/Gynecology10/22/22 Connie Peterson, AUTUMN [address] [place] [address] Nurse PractitionerObstetrics/Simkpowvnt79/20/23 Joanna Suh PA-C [address] [place] [address] Physician Assistant09/28/23 Su Gotti CNP [address] [place] [address] Nurse PractitionerNurse Yrizvwfcfxev42/18/24 Darlin Ortega MD [address] [place] [address] Consulting PhysicianObstetrics/Gynecology09/01/24Team MemberRelationshipSpecialty Start DateEnd Date Thania Owens DO [address] [place] [phone] PCP - GeneralFamily Idwtmtbl53/3/20 Marlys West, AUTUMN [address] [place] [address] Obstetrics/Gynecology10/22/22 Connie Peterson, AUTUMN [address] [place] [address] Nurse PractitionerObstetrics/Zromiwcomf26/20/23 Joanna Suh PA-C [address] [place] [address] Physician Assistant09/28/23 Su Gotti EDUCATION SPECIALIST [address] [place] [address] Nurse PractitionerNurse Dpuuwksehygq51/18/24 Darlin Ortega MD [address] [place] [address] Consulting PhysicianObstetrics/Gynecology09/01/24 Team Status: Active Member Role Status Dates Thania Owens DO Primary Care Provider Active Team Status: Inactive Member Role Status Dates Thania Owens DO Primary Care Provider Active Start: May 10, 2025 End: May 10jerzy Flores DOEmerberkley ProviderActiveStart: May 10, 2025 End: May 10, 2025 Team Status: Inactive Member Role Status Dates Thania Owens DO Primary Care Provider Active Start: May 12, 2025 End: May 12jerzy Flores DOAttending ProviderActiveStart: May 12, 2025 End: May 12, 2025Team MemberRelationshipSpecialtyStart DateEnd Date Thania wOens MD [address] [place] [address] PCP - [facility] Xjyvzbem95/7/23Team MemberRelationshipSpecialtyStart DateEnd Date Thania Owens MD [address] [place] [place] [address] PCP - GeneralFamily Ifjdbtqa73/7/23Team MemberRelationshipSpecialtyStart DateEnd Date Thania Owens MD [address] [place] [address] PCP - GeneralFamily Qrikugey69/7/23 Source Comments (unrecognize d section and content) In the event this informatio n is protected by the Federal Confidentiality of Alcohol and Drug Abuse Patient Records regulations: The Federal rules restrict any use of the information to criminally investigate or prosecute any alcohol or drug abuse patient.[facility]woodIn the event this information is protected by the Federal Confidentiality of Alcohol and Drug Abuse Patient Records regulations: The Federal rules restrict any use of the information to criminally investigate or prosecute any alcohol or drug abuse patient.[facility] BeachwoodIn the event this information is protected by the Federal Confidentiality of Alcohol and Drug Abuse Patient Records regulations: The Federal rules restrict any use of the information to criminally investigate or prosecute any alcohol or drug abuse patient.[facility] BeachwoodIn the event this information is protected by the Federal Confidentiality of Alcohol and Drug Abuse Patient Records regulations: The Federal rules restrict any use of the information to criminally investigate or prosecute any alcohol or drug abuse patient.[facility] BeachwoodIn the event this information is protected by the Federal Confidentiality of Alcohol and Drug Abuse Patient Records regulations: The Federal rules restrict any use of the information to criminally investigate or prosecute any alcohol or drug abuse patient.[facility] [place] Goals (unrecognized section and content) Goals may [...] BE BASED ON THE PRIMARY CLINICAL RECORDS. [facility]. provides no warranty or guarantee of the accuracy or completeness of information in this document.
[2025-06-21 14:37] LABS: Hematocrit 39.2 % (36.0-48.0); Hemoglobin 13.3 g/dL (12.0-16.0); Immature Granulocytes Abs Auto 0.04 10^3/uL (0.00-0.03); Immature Granulocytes Pct Auto 0.4 % (0.0-0.5); Lymphocytes Absolute Auto 1.6 10^3/uL (1.2-3.8); Mean Corpuscular HGB Conc 33.9 g/dL (29.9-35.2); Mean Corpuscular Hemoglobin 29.9 pg (26.7-34.0); Mean Corpuscular Volume 88.1 fL (81.0-99.0); Platelet Count 216 10^3/uL (150-450); Red Blood Count 4.45 10^6/uL (4.20-5.40); White Blood Count 9.3 10^3/uL (4.0-11.0)
[2025-06-21 14:46] LABS: Cannabinoid Screen Urine NEGATIVE (NEGATIVE); Methamphetamines Screen Urine NEGATIVE (NEGATIVE); Tricyclic Antidepressant Urine NEGATIVE (NEGATIVE)
[2025-06-22 06:08] LABS: Rubella Antibodies, IgG 7.17 index (Immune >0.99)
[2025-06-22 12:08] LABS: Rapid Plasma Reagin, Quant Non Reactive titer (NonRea<1:1)
== END 2025-06-21 13:49 | disposition home or self-care (01) ==
PROVIDERS: PCP Family Medicine; Visit Provider Obstetrics & Gynecology
DX: Z34.01 Encounter for supervision of normal first pregnancy, first trimester (principal); N92.6 Irregular menstruation, unspecified
CPT/HCPCS: 36415; 80307; 83036; 85025; 86592; 86762; 86803; 86850; 86900; 86901; 87086; 87340; 87389